=== PATIENT | male | born 1945 | race Caucasian/White ===

== ENCOUNTER → 2017-09-07 | Outpatient (CLI) | payer MEDICARE ==
--- NOTE | 2017-09-07 22:59 | MR ---
EXAMINATION TYPE: MR knee LT wo con DATE OF EXAM: 09/07/2017 COMPARISON: NONE HISTORY: Left Knee pain and Swelling with Limited ROM X2 Months, Slipped and Twisted injury. TECHNIQUE: Multiplanar, multisequence images of the knee is performed without IV contrast. FINDINGS: MEDIAL MENISCUS: There is triangular-shaped density anterior horn of medial meniscus does not extend to articular surface. There is oblique signal posterior horn medial meniscus extends to inferior justin cular surface centrally. LATERAL MENISCUS: Anterior and posterior horns are intact without tear. CRUCIATE LIGAMENTS: The anterior and posterior cruciate ligaments are intact and unremarkable. COLLATERAL LIGAMENTS: The medial collateral ligament and lateral collateral ligament complex are inta ct. Mild to moderate fluid signal surrounds the medial collateral ligament. EXTENSOR MECHANISM: Visualized quadriceps and patellar tendons are intact. EFFUSION: There is small to moderate sized suprapatellar joint effusion. POPLITEAL CYST: No popliteal/velazquez cyst. TRICOMPARTMENT SPACES: There is fairly moderate to borderline advanced tricompartment joint space los s and spurring. CARTILAGE: There is full thickness chondromalacia patella with marked cartilaginous loss and posterio r patellar pole particularly lateral aspect. Some lateral tilting of patella is present. Cartilaginou s loss medial tibial femoral compartment is seen. BONE MARROW SIGNAL: Some scattered subchondral cystic change in the proximal tibia is seen. No suspic ious edema is noted. OTHER: No additional significant abnormality is appreciated. IMPRESSION: 1. Full-thickness tear posterior horn medial meniscus. 2. Intrasubstance tear anterior horn of medial meniscus. 3. Mild MCL sprain injury. 4. Background moderate to borderline advanced tricompartment degenerative changes most prominent medi al tibiofemoral and patellofemoral compartments. Full-thickness chondromalacia patella is noted. 5. Small to borderline moderate sized suprapatellar joint effusion.
== END | disposition home or self-care (01) ==
LOC: RADMRIMAIN 20:11
PROVIDERS: ATTEND Family Medicine
DX: S83.242A Other tear of medial meniscus, current injury, left knee, initial encounter (principal); S83.412A Sprain of medial collateral ligament of left knee, initial encounter; M22.42 Chondromalacia patellae, left knee; M25.462 Effusion, left knee; M76.52 Patellar tendinitis, left knee

== ENCOUNTER → 2018-11-07 | Outpatient (CLI) | payer MEDICARE | LOC: LABWHC1 15:40 | PROVIDERS: ATTEND Psychiatry & Neurology Neurology | DX: G40.209 Localization-related (focal) (partial) symptomatic epilepsy and epileptic syndromes with complex partial seizures, not intractable, without status epilepticus (principal) | CPT/HCPCS: 36415; 80164 ==

== ENCOUNTER → 2023-02-21 | Outpatient (CLI) | payer MEDICARE ==
[2023-02-22 02:35] LABS: Valproic Acid (Depakene) 38.6 UG/ML (50.0-100.0)
== END | disposition home or self-care (01) ==
LOC: LABWHC1 15:09
PROVIDERS: ATTEND Psychiatry & Neurology Neurology
DX: G40.209 Localization-related (focal) (partial) symptomatic epilepsy and epileptic syndromes with complex partial seizures, not intractable, without status epilepticus (principal); G62.9 Polyneuropathy, unspecified; Z79.899 Other long term (current) drug therapy
CPT/HCPCS: 36415; 80164; 82306

== ENCOUNTER 2023-09-27 22:10 | Inpatient (IN) | payer MEDICARE ==
--- NOTE | 2023-09-27 22:36 | ED ---
Weakness HPI - General Chief complaint: Weakness Stated complaint: Weakness Time Seen by Provider: 09/27/23 22:11 Source: patient, EMS Mode of arrival: EMS Limitations: physical limitation - History of Present Illness Initial comments: This patient is 77-year-old man brought by ambulance to have evaluation for generalized weakness. It was reported that the patient had attempted to get up to use the bathroom and slumped to the ground. Patient had reportedly been lying on the ground and number of hours with family attempting to get in to get up and was not able to support himself. They finally called EMS and he is brought to have evaluation. The patient states that he is not having focal weakness. He is denying pain. He states that he just cannot support himself. he denies symptoms of infection. Review of systems, the patient states he has been having lost urinary continence. MD Complaint: generalized weakness Onset/Timin -: days(s) Location: generalized Severity scale (1-10): 0 Consistency: constant Improves with: none Worsens with: none Associated Symptoms: other (Loss of continence) - Related Data Home Medications Medication Instructions Recorded Confirmed Amitriptyline HCl [Elavil] 75 mg PO HS 09/28/23 09/28/23 Baclofen [Lioresal] 10 mg PO HS 09/28/23 09/28/23 Divalproex Sodium [Depakote] 1,000 mg PO HS 09/28/23 09/28/23 Ergocalciferol [Vitamin D2 (1250 1,250 mcg PO Q14D 09/28/23 09/28/23 Mcg = 10495 Iu)] Levothyroxine Sodium [Synthroid] 100 mcg PO DAILY 09/28/23 09/28/23 Metoprolol Tartrate [Lopressor] 50 mg PO HS 09/28/23 09/28/23 Metoprolol Tartrate [Lopressor] 100 mg PO DAILY 09/28/23 09/28/23 Multivitamins, Thera [Multivitamin 1 tab PO DAILY 09/28/23 09/28/23 (formulary)] Omeprazole 20 mg PO DAILY 09/28/23 09/28/23 amLODIPine [Norvasc] 10 mg PO DAILY 09/28/23 09/28/23 Allergies Allergy/AdvReac Type Severity Reaction Status Date / Time Penicillins AdvReac Rash/Hives Verified 09/28/23 06:59 Review of Systems ROS Statement: Those systems with pertinent positive or pertinent negative responses have been documented in the HPI. ROS Other: All systems not noted in ROS Statement are negative. Constitutional: Reports: weakness. Denies: fever, chills Eyes: Denies: vision change ENT: Denies: throat pain, congestion Respiratory: Denies: cough, dyspnea Cardiovascular: Denies: chest pain, palpitations, orthopnea, edema, syncope Gastrointestinal: Denies: abdominal pain, vomiting, diarrhea, melena, hematochezia Genitourinary: Reports: other (Some continence). Denies: dysuria, frequency, hematuria Musculoskeletal: Reports: arthralgia (Knee pains, bilateral, chronic). Denies: back pain Skin: Denies: rash Neurological: Denies: headache, weakness, numbness Hematological/Lymphatic: Denies: easy bleeding Past Medical History Past Medical History: Hypertension, Seizure Disorder, Thyroid Disorder History of Any Multi-Drug Resistant Organisms: None Reported Past Surgical History: Hernia Repair Past Psychological History: No Psychological Hx Reported Smoking Status: Former smoker Past Alcohol Use History: None Reported Past Drug Use History: None Reported General Exam Limitations: physical limitation General appearance: alert, in no apparent distress Head exam: Present: atraumatic, normocephalic Eye exam: Present: normal appearance. Absent: scleral icterus, conjunctival injection ENT exam: Present: mucous membranes dry Neck exam: Present: normal inspection, full ROM. Absent: meningismus Respiratory exam: Present: normal lung sounds bilaterally. Absent: respiratory distress, wheezes, rales, rhonchi, stridor, accessory muscle use Cardiovascular Exam: Present: regular rate, normal rhythm, normal heart sounds. Absent: systolic murmur, diastolic murmur, rubs, gallop GI/Abdominal exam: Present: soft, distended. Absent: tenderness, guarding, rebound, rigid, mass Extremities exam: Present: normal inspection, normal capillary refill. Absent: pedal edema, calf tenderness Back exam: Present: normal inspection. Absent: CVA tenderness (R), CVA tenderness (L) Neurological exam: Present: alert, CN II-XII intact. Absent: motor sensory deficit Skin exam: Present: warm, dry, intact, normal color. Absent: rash Course Vital Signs 09/27/23 09/27/23 09/27/23 22:12 22:19 23:00 Temperature 97.6 F Pulse Rate 76 75 Pulse Rate [ Accounting Policy Consultant ] Respiratory 22 29 H Rate Blood Pressure 116/50 116/50 116/50 Blood Pressure [Right Arm] O2 Sat by Pulse 93 L 93 L Oximetry 09/27/23 09/28/23 09/28/23 23:12 00:00 01:00 Temperature Pulse Rate 67 59 L 58 L Pulse Rate [ Accounting Policy Consultant ] Respiratory 22 26 H 25 H Rate Blood Pressure 113/72 102/83 115/52 Blood Pressure [Right Arm] O2 Sat by Pulse 93 L 93 L Oximetry 09/28/23 09/28/23 09/28/23 01:09 02:00 03:00 Temperature Pulse Rate 57 L 58 L 58 L Pulse Rate [ Accounting Policy Consultant ] Respiratory 20 18 22 Rate Blood Pressure 111/85 106/62 120/83 Blood Pressure [Right Arm] O2 Sat by Pulse 94 L 93 L 94 L Oximetry 09/28/23 09/28/23 09/28/23 04:00 05:00 06:00 Temperature Pulse Rate 57 L 56 L 60 Pulse Rate [ Accounting Policy Consultant ] Respiratory 23 22 20 Rate Blood Pressure 118/74 106/64 124/60 Blood Pressure [Right Arm] O2 Sat by Pulse 94 L 96 96 Oximetry 09/28/23 09/28/23 09/28/23 07:33 08:30 09:00 Temperature Pulse Rate 58 L 62 63 Pulse Rate [ Accounting Policy Consultant ] Respiratory 18 18 20 Rate Blood Pressure 134/72 122/82 145/88 Blood Pressure [Right Arm] O2 Sat by Pulse 94 L 95 98 Oximetry 09/28/23 09/28/23 09/28/23 10:00 11:00 12:00 Temperature Pulse Rate 65 67 75 Pulse Rate [ Accounting Policy Consultant ] Respiratory 17 16 18 Rate Blood Pressure 124/62 141/86 139/94 Blood Pressure [Right Arm] O2 Sat by Pulse 98 95 94 L Oximetry 09/28/23 09/28/23 09/28/23 14:00 15:00 16:00 Temperature 98.6 F Pulse Rate 76 80 80 Pulse Rate [ Accounting Policy Consultant ] Respiratory 16 18 18 Rate Blood Pressure 120/99 122/86 128/86 Blood Pressure [Right Arm] O2 Sat by Pulse 95 95 95 Oximetry 09/28/23 09/28/23 09/28/23 17:00 18:00 20:00 Temperature 98.9 F Pulse Rate 81 90 88 Pulse Rate [ Accounting Policy Consultant ] Respiratory 18 16 20 Rate Blood Pressure 122/98 141/81 128/84 Blood Pressure [Right Arm] O2 Sat by Pulse 95 95 94 L Oximetry 09/29/23 09/29/23 09/29/23 02:36 04:00 07:56 Temperature 98.9 F 97.4 F L Pulse Rate Pulse Rate [ 112 H 100 109 H Accounting Policy Consultant ] Respiratory 22 22 17 Rate Blood Pressure Blood Pressure 143/74 126/89 134/80 [Right Arm] O2 Sat by Pulse 97 94 L 95 Oximetry 09/29/23 09/29/23 09/29/23 11:31 14:38 14:40 Temperature 98.4 F Pulse Rate Pulse Rate [ 105 H Accounting Policy Consultant ] Respiratory 16 17 17 Rate Blood Pressure Blood Pressure 148/70 [Right Arm] O2 Sat by Pulse 95 89 L 92 L Oximetry 09/29/23 09/29/23 15:25 20:00 Temperature 97.8 F 98.1 F Pulse Rate Pulse Rate [ 100 113 H Accounting Policy Consultant ] Respiratory 18 20 Rate Blood Pressure Blood Pressure 152/77 142/79 [Right Arm] O2 Sat by Pulse 93 L 93 L Oximetry EKG Findings - EKG Comments: EKG Findings:: Possible old inferior infarct. - EKG Results: EKG: interpreted by [facility]A, sinus rhythm (Rate 75 bpm), normal axis, normal ST/T Medical Decision Making - Medical Decision Making Patient had CT of the brain that I interpreted as negative for acute bony injury or intracranial hemorrhage. The patient had chest x-ray that interpreted as negative for acute infiltrate, pneumothorax, congestive heart failure Patient is 77-year-old man brought to have evaluation of generalized weakness. On the exam the patient does appear moderately dehydrated. The workup does reveal hyponatremia. Patient's not able to give urine specimen therefore catheter placed and he does have large volume urine in the bladder, consistent with urinary retention. Rosales catheter will be placed to assess urine output Was pt. sent in by a medical professional or institution ([facility], JUN[employer]YWRITER, urgent care, hospital, or [facility]...) When possible be specific @ -[No] Did you speak to anyone other than the patient for history (EMS, parent, family, police, friend...)? What history was obtained from this source @ -[EMS Did you review nursing and triage notes (agree or disagree)? Why? @ -[I reviewed and agree with nursing and triage notes] Were old charts reviewed (outside hosp., previous admission, EMS record, old EKG, old radiological studies, urgent care reports/EKG's, [facility] records)? Report findings @ -[No old charts were reviewed] Differential Diagnosis (chest pain, altered mental status, abdominal pain women, abdominal pain men, vaginal bleeding, weakness, fever, dyspnea, syncope, headache, dizziness, GI bleed, back pain, seizure, CVA, palpatations, mental health, musculoskeletal)? @ -[Differential Weakness: Hypoglycemia, shock, sepsis, hyponatremia, anemia, infection, [place], ETOH, adverse medicine reaction, overdose, stroke, this is not meant to be an all-inclusive list. EKG interpreted by me (3pts min.). @ -[I interpreted as above] X-rays interpreted by me (1pt min.). @ -[I interpreted as above CT interpreted by me (1pt min.). @ -[I interpreted as above U/S interpreted by me (1pt. min.). @ -[None done] What testing was considered but not performed or refused? (CT, X-rays, U/S, labs)? Why? @ -[None] What meds were considered but not given or refused? Why? @ -[None] Did you discuss the management of the patient with other professionals (professionals i.e. , PA, JUNIOR COPYWRITER, lab, RT, psych nurse, clinical social work aide, data abstractor, teacher, financial officer, case therapist)? Give summary @ -[Case discussed with admitting physician Was smoking cessation discussed for >3mins.? @ -[No] Was critical care preformed (if so, how long)? @ -[No] Were there social determinants of health that impacted care today? How? (Homelessness, low income, unemployed, alcoholism, drug addiction, transportation, low edu. Level, literacy, decrease access to med. care, correction, rehab)? @ -[No] Was there de-escalation of care discussed even if they declined (Discuss DNR or withdrawal of care, Hospice)? DNR status @ -[No] What co-morbidities impacted this encounter? (DM, HTN, Smoking, COPD, CAD, Cancer, CVA, ARF, Chemo, Hep., AIDS, mental health diagnosis, sleep apnea, morbid obesity)? @ -[None] Was patient admitted / discharged? Hospital course, mention meds given and route, prescriptions, significant lab abnormalities, going to OR and other pertinent info. @ -[Patient be admitted for hydration as well as nephrology consultation Undiagnosed new problem with uncertain prognosis? @ -[No] Drug Therapy requiring intensive monitoring for toxicity (Heparin, Nitro, Insulin, Cardizem)? @ -[No] Were any procedures done? @ -[No] Diagnosis/symptom? @ -[Acute hyponatremia Acute urinary retention Ground-level fall Acute rhabdomyolysis Acute lactic acidosis Acute, or Chronic, or Acute on Chronic? @ -[Acute Uncomplicated (without systemic symptoms) or Complicated (systemic symptoms)? @ -[Uncomplicated Side effects of treatment? @ -[No] Exacerbation, Progression, or Severe Exacerbation? @ -[No] Poses a threat to life or bodily function? How? (Chest pain, [place], [place], pneumonia, PE, COPD, DKA, ARF, appy, cholecystitis, CVA, Diverticulitis, Homicidal, Suicidal, threat to staff... and all critical care pts) @ -[Yes - Lab Data Result diagrams: 10/12/23 07:43 10/13/23 06:22 Lab Results 09/27/23 09/27/23 09/27/23 Range/Units 22:53 22:53 22:53 WBC 10.5 (3.8-10.6) k/uL RBC 5.00 (4.30-5.90) m/uL Hgb 15.2 (13.0-17.5) gm/dL Hct 42.9 (39.0-53.0) % MCV 85.7 (80.0-100.0) fL MCH 30.5 (25.0-35.0) pg MCHC 35.6 (31.0-37.0) g/dL RDW 13.6 (11.5-15.5) % Plt Count 165 (150-450) k/uL MPV 12.8 Neutrophils % 77 % Lymphocytes % 12 % Monocytes % 9 % Eosinophils % 0 % Basophils % 1 % Neutrophils # 8.0 H (1.3-7.7) k/uL Lymphocytes # 1.2 (1.0-4.8) k/uL Monocytes # 1.0 (0-1.0) k/uL Eosinophils # 0.0 (0-0.7) k/uL Basophils # 0.1 (0-0.2) k/uL Manual Slide Review Performed Large Platelets Present PT 11.0 (10.0-12.5) sec INR 1.0 (<1.2) APTT 26.7 (22.0-30.0) sec Sodium 118 L* (137-145) mmol/L Potassium 4.1 (3.5-5.1) mmol/L Chloride 83 L (98-107) mmol/L Carbon Dioxide 22 (22-30) mmol/L Anion Gap 13 mmol/L BUN 24 H (9-20) mg/dL Creatinine 1.26 H (0.66-1.25) mg/dL Est GFR (CKD-EPI)AfAm 64 (>60 ml/min/1.73 sqM) Est GFR (CKD-EPI)NonAf 55 (>60 ml/min/1.73 sqM) Glucose 189 H (74-99) mg/dL Lactic Ac Sepsis Rflx Plasma Lactic Acid Guillaume (0.7-2.0) mmol/L Calcium 8.2 L (8.4-10.2) mg/dL Magnesium 1.7 (1.6-2.3) mg/dL Total Bilirubin 1.1 (0.2-1.3) mg/dL AST 95 H (17-59) U/L ALT 44 (4-49) U/L Alkaline Phosphatase 65 (38-126) U/L Troponin I (0.000-0.034) ng/mL Total Protein 7.4 (6.3-8.2) g/dL Albumin 4.0 (3.5-5.0) g/dL Urine Color Urine Appearance (Clear) Urine pH (5.0-8.0) Ur Specific [place] (1.001-1.035) Urine Protein (Negative) Urine Glucose (UA) (Negative) Urine Ketones (Negative) Urine Blood (Negative) Urine Nitrite (Negative) Urine Bilirubin (Negative) Urine Urobilinogen (<2.0) mg/dL Ur Leukocyte Esterase (Negative) Urine RBC (0-5) /hpf Urine WBC (0-5) /hpf Urine Mucus (None) /hpf 09/27/23 09/27/23 09/27/23 Range/Units 22:53 22:53 23:22 WBC (3.8-10.6) k/uL RBC (4.30-5.90) m/uL Hgb (13.0-17.5) gm/dL Hct (39.0-53.0) % MCV (80.0-100.0) fL MCH (25.0-35.0) pg MCHC (31.0-37.0) g/dL RDW (11.5-15.5) % Plt Count (150-450) k/uL MPV Neutrophils % % Lymphocytes % % Monocytes % % Eosinophils % % Basophils % % Neutrophils # (1.3-7.7) k/uL Lymphocytes # (1.0-4.8) k/uL Monocytes # (0-1.0) k/uL Eosinophils # (0-0.7) k/uL Basophils # (0-0.2) k/uL Manual Slide Review Large Platelets PT (10.0-12.5) sec INR (<1.2) APTT (22.0-30.0) sec Sodium (137-145) mmol/L Potassium (3.5-5.1) mmol/L Chloride (98-107) mmol/L Carbon Dioxide (22-30) mmol/L Anion Gap mmol/L BUN (9-20) mg/dL Creatinine (0.66-1.25) mg/dL Est GFR (CKD-EPI)AfAm (>60 ml/min/1.73 sqM) Est GFR (CKD-EPI)NonAf (>60 ml/min/1.73 sqM) Glucose (74-99) mg/dL Lactic Ac Sepsis Rflx Y Plasma Lactic Acid Guillaume 4.1 H* (0.7-2.0) mmol/L Calcium (8.4-10.2) mg/dL Magnesium (1.6-2.3) mg/dL Total Bilirubin (0.2-1.3) mg/dL AST (17-59) U/L ALT (4-49) U/L Alkaline Phosphatase (38-126) U/L Troponin I <0.012 (0.000-0.034) ng/mL Total Protein (6.3-8.2) g/dL Albumin (3.5-5.0) g/dL Urine Color Urine Appearance (Clear) Urine pH (5.0-8.0) Ur Specific [place] (1.001-1.035) Urine Protein (Negative) Urine Glucose (UA) (Negative) Urine Ketones (Negative) Urine Blood (Negative) Urine Nitrite (Negative) Urine Bilirubin (Negative) Urine Urobilinogen (<2.0) mg/dL Ur Leukocyte Esterase (Negative) Urine RBC (0-5) /hpf Urine WBC (0-5) /hpf Urine Mucus (None) /hpf 09/28/23 Range/Units 01:06 WBC (3.8-10.6) k/uL RBC (4.30-5.90) m/uL Hgb (13.0-17.5) gm/dL Hct (39.0-53.0) % MCV (80.0-100.0) fL MCH (25.0-35.0) pg MCHC (31.0-37.0) g/dL RDW (11.5-15.5) % Plt Count (150-450) k/uL MPV Neutrophils % % Lymphocytes % % Monocytes % % Eosinophils % % Basophils % % Neutrophils # (1.3-7.7) k/uL Lymphocytes # (1.0-4.8) k/uL Monocytes # (0-1.0) k/uL Eosinophils # (0-0.7) k/uL Basophils # (0-0.2) k/uL Manual Slide Review Large Platelets PT (10.0-12.5) sec INR (<1.2) APTT (22.0-30.0) sec Sodium (137-145) mmol/L Potassium (3.5-5.1) mmol/L Chloride (98-107) mmol/L Carbon Dioxide (22-30) mmol/L Anion Gap mmol/L BUN (9-20) mg/dL Creatinine (0.66-1.25) mg/dL Est GFR (CKD-EPI)AfAm (>60 ml/min/1.73 sqM) Est GFR (CKD-EPI)NonAf (>60 ml/min/1.73 sqM) Glucose (74-99) mg/dL Lactic Ac Sepsis Rflx Plasma Lactic Acid Guillaume (0.7-2.0) mmol/L Calcium (8.4-10.2) mg/dL Magnesium (1.6-2.3) mg/dL Total Bilirubin (0.2-1.3) mg/dL AST (17-59) U/L ALT (4-49) U/L Alkaline Phosphatase (38-126) U/L Troponin I (0.000-0.034) ng/mL Total Protein (6.3-8.2) g/dL Albumin (3.5-5.0) g/dL Urine Color Yellow Urine Appearance Clear (Clear) Urine pH 6.0 (5.0-8.0) Ur Specific [place] 1.014 (1.001-1.035) Urine Protein Negative (Negative) Urine Glucose (UA) Negative (Negative) Urine Ketones Negative (Negative) Urine Blood Trace H (Negative) Urine Nitrite Negative (Negative) Urine Bilirubin Negative (Negative) Urine Urobilinogen 3.0 (<2.0) mg/dL Ur Leukocyte Esterase Negative (Negative) Urine RBC 17 H (0-5) /hpf Urine WBC 1 (0-5) /hpf Urine Mucus Rare H (None) /hpf Critical Care Time Critical Care Time: Yes (30 minutes) Disposition Clinical Impression: Weakness, Hyponatremia, Urinary retention, Dehydration, Lactic acidosis, Rhabdomyolysis Disposition: ADMITTED IP TO THIS [facility] Condition: Poor Is patient prescribed a controlled substance at d/c from ED?: No
--- NOTE | 2023-09-27 22:57 | CT ---
EXAM: CT Head Without Intravenous Contrast CLINICAL HISTORY: ITS.REASON CT Reason: weakness TECHNIQUE: Axial computed tomography images of the head/brain without intravenous contrast. CTDI is 49.1 mGy and DLP is 1314.4 mGy-cm. This CT exam was performed using one or more of the following dose reduction techniques: automated exposure control, adjustment of the mA and/or kV according to patient size, and/or use of iterative reconstruction technique. COMPARISON: No relevant prior studies available. FINDINGS: No acute intracranial hemorrhage. No midline shift or mass effect. The [place]-white matter differentiation is maintained throughout. Age-related cerebral volume loss. Periventricular and subcortical white matter hypoattenuation, consistent with chronic microangiopathy. The visualized orbits appear grossly unremarkable. The calvarium is intact. The visualized paranasal sinuses and mastoid air cells are grossly clear. IMPRESSION: No acute intracranial hemorrhage, midline shift, or mass effect.
--- NOTE | 2023-09-27 23:10 | XR ---
EXAM: XR Chest, 1 View CLINICAL HISTORY: ITS.REASON XR Reason: weakness TECHNIQUE: Frontal view of the chest. COMPARISON: No relevant prior studies available. FINDINGS: Lungs: Unremarkable. No consolidation. Pleural space: Unremarkable. No pneumothorax. Heart: Cardiomegaly. Mediastinum: Unremarkable. Normal mediastinal contour. Bones/joints: Unremarkable. No acute fracture. Upper abdomen: Elevated RIGHT hemidiaphragm. IMPRESSION: No acute findings in the chest.
[2023-09-27 23:14] LABS: ALT 44 U/L (4-49); AST 95 U/L (17-59); African American GFR (CKD) 64 (>60 ml/min/1.73 sqM); Alkaline Phosphatase 65 U/L (38-126); Anion Gap 13 mmol/L; Blood Urea Nitrogen 24 mg/dL (9-20); Calcium 8.2 mg/dL (8.4-10.2); Carbon Dioxide 22 mmol/L (22-30); Chloride 83 mmol/L (98-107); Glucose 189 mg/dL (74-99); Magnesium 1.7 mg/dL (1.6-2.3); Non-African American GFR(CKD) 55 (>60 ml/min/1.73 sqM); Potassium 4.1 mmol/L (3.5-5.1); Total Bilirubin 1.1 mg/dL (0.2-1.3); Total Protein 7.4 g/dL (6.3-8.2)
[2023-09-27 23:22] LABS: Sodium 118 mmol/L (137-145)
[2023-09-27 23:33] LABS: Partial Thromboplastin Time 26.7 sec (22.0-30.0)
[2023-09-27] MEDS: SODIUM CHLORIDE 0.9% 1,000 ML IV ONE (23:33)
[2023-09-28 00:40] LABS: Basophils # (A) 0.1 k/uL (0-0.2); Basophils % (A) 1 %; Eosinophils % (A) 0 %; HCT 42.9 % (39.0-53.0); HGB 15.2 gm/dL (13.0-17.5); Lymphocytes # (A) 1.2 k/uL (1.0-4.8); Lymphocytes % (A) 12 %; MCH 30.5 pg (25.0-35.0); MCHC 35.6 g/dL (31.0-37.0); MCV 85.7 fL (80.0-100.0); Mean Platelet Volume 12.8; Monocytes % (A) 9 %; Neutrophils % (A) 77 %; Platelet Count 165 k/uL (150-450); RDW 13.6 % (11.5-15.5); WBC 10.5 k/uL (3.8-10.6)
[2023-09-28] MEDS: SODIUM CHLORIDE 0.9% 1,000 ML IV STA (01:05)
[2023-09-28] MEDS ORDERED: NALOXONE 0.4 MG/ML 1 ML VIAL IV PRN (01:38)
[2023-09-28 02:12] LABS: Appearance,Urine Clear (Clear); Bilirubin,Urine Negative (Negative); Blood,Urine Trace (Negative); Color,Urine Yellow; Glucose,Urine (UA) Negative (Negative); Ketones,Urine Negative (Negative); Leukocyte Esterase,Urine Negative (Negative); Mucus,Urine Rare /hpf; Nitrite,Urine Negative (Negative); Protein,Urine Negative (Negative); RBC,Urine 17 /hpf (0-5); Specific Gravity,Urine 1.014 (1.001-1.035); WBC,Urine 1 /hpf (0-5)
[2023-09-28 02:43] LABS: Large Platelets Present
[2023-09-28 07:38] LABS: African American GFR (CKD) 74 (>60 ml/min/1.73 sqM); Anion Gap 13 mmol/L; Blood Urea Nitrogen 27 mg/dL (9-20); Calcium 8.1 mg/dL (8.4-10.2); Carbon Dioxide 24 mmol/L (22-30); Chloride 85 mmol/L (98-107); Glucose 116 mg/dL (74-99); Magnesium 1.8 mg/dL (1.6-2.3); Non-African American GFR(CKD) 64 (>60 ml/min/1.73 sqM); Potassium 3.6 mmol/L (3.5-5.1); Sodium 122 mmol/L (137-145)
[2023-09-28] MEDS: FAMOTIDINE 20 MG/2 ML VIAL IV SCH (08:26)
[2023-09-28] MEDS: LEVOTHYROXINE 100 MCG TAB PO SCH (10:12)
[2023-09-28] MEDS: SODIUM CHLORIDE 0.9% 1,000 ML IV SCH (11:04)
[2023-09-28] MEDS: POTASSIUM BICARBONATE/CIT AC 20 MEQ TABLET.EFF PO ONE (12:02)
--- NOTE | 2023-09-28 12:11 | P.NPCON ---
History of Present Illness - Reason for Consult acute renal failure, hyponatremia - History of Present Illness Reason for consultation: Hyponatremia and acute kidney injury History of present illness: Patient is a 77-year-old male seen in renal consultation for hyponatremia and acute kidney injury. Patient was seen and examined in the emergency room. Patient sodium on admission was 118 on September 27, 2023 at 10:53 PM. This morning it was up to 122. Creatinine was 1.26 on admission and was 1.11 this morning. Patient came to the hospital due to generalized weakness. He was also complaining of diarrhea going on for the last 3 days along with poor oral intake. Patient states he fell prior to admission. Patient states he was falling multiple times. He did receive a liter of normal saline and received 0.9 at 200 cc an hour overnight. Patient CK level on admission was 1241 and 2669 this morning. Patient is not a very reliable historian. I do not see any thiazide diuretics or nonsteroidals on his home medication list. He denies history of malignancy. Denies prior history of kidney disease. Patient was noted to have urinary retention and required straight catheterizations. Subseq uently Rosales catheter was placed. He is nonoliguric. Vital signs are stable. General: No acute distress. HEENT: Head exam is unremarkable. On nasal cannula. LUNGS: No audible rhonchi or wheezes. HEART: Rate and Rhythm are regular. ABDOMEN: Nontender. EXTREMITITES: No edema. Past Medical History Past Medical History: Hypertension, Seizure Disorder, Thyroid Disorder History of Any Multi-Drug Resistant Organisms: None Reported Past Surgical History: Hernia Repair Past Psychological History: No Psychological Hx Reported Smoking Status: Former smoker Past Alcohol Use History: None Reported Past Drug Use History: None Reported Medications and Allergies Home Medications Medication Instructions Recorded Confirmed Type Amitriptyline HCl [Elavil] 75 mg PO HS 09/28/23 09/28/23 History Baclofen [Lioresal] 10 mg PO HS 09/28/23 09/28/23 History Divalproex Sodium [Depakote] 1,000 mg PO HS 09/28/23 09/28/23 History Ergocalciferol [Vitamin D2 (1250 1,250 mcg PO Q14D 09/28/23 09/28/23 History Mcg = 09461 Iu)] Levothyroxine Sodium [Synthroid] 100 mcg PO DAILY 09/28/23 09/28/23 History Metoprolol Tartrate [Lopressor] 50 mg PO HS 09/28/23 09/28/23 History Metoprolol Tartrate [Lopressor] 100 mg PO DAILY 09/28/23 09/28/23 History Multivitamins, Thera [Multivitamin 1 tab PO DAILY 09/28/23 09/28/23 History (formulary)] Omeprazole 20 mg PO DAILY 09/28/23 09/28/23 History amLODIPine [Norvasc] 10 mg PO DAILY 09/28/23 09/28/23 History Allergies Allergy/AdvReac Type Severity Reaction Status Date / Time Penicillins AdvReac Rash/Hives Verified 09/28/23 06:59 Physical Exam Vitals: Vital Signs Temp Pulse Resp BP Pulse Ox 09/28/23 11:00 67 16 141/86 95 09/28/23 10:00 65 17 124/62 98 09/28/23 09:00 63 20 145/88 98 09/28/23 08:30 62 18 122/82 95 09/28/23 07:33 58 L 18 134/72 94 L 09/28/23 06:00 60 20 124/60 96 09/28/23 05:00 56 L 22 106/64 96 09/28/23 04:00 57 L 23 118/74 94 L 09/28/23 03:00 58 L 22 120/83 94 L 09/28/23 02:00 58 L 18 106/62 93 L 09/28/23 01:09 57 L 20 111/85 94 L 09/28/23 01:00 58 L 25 H 115/52 93 L 09/28/23 00:00 59 L 26 H 102/83 09/27/23 23:12 67 22 113/72 93 L 09/27/23 23:00 116/50 09/27/23 22:19 75 29 H 116/50 93 L 09/27/23 22:12 97.6 F 76 22 116/50 93 L Intake and Output 09/27/23 09/28/23 09/28/23 22:59 06:59 14:59 Output Total 1100 150 Balance -1100 -150 Output: Urine 1100 150 Uretheral (Rosales) 1100 150 Other: Weight 113.852 kg Results - Lab Results Most recent lab results Calcium 8.1 mg/dL (8.4-10.2) L 09/28/23 06:32 Magnesium 1.8 mg/dL (1.6-2.3) 09/28/23 06:32 09/27/23 22:53 09/28/23 06:32 Assessment and Plan Plan: Assessment: 1. Hyponatremia. Component of hypovolemia as well as urinary retention. Sodium level 118 on admission and up to 122 this morning. TSH normal. Urine osmolality 543. 2. Acute kidney injury secondary to urinary retention. Creatinine 1.26 on admission and is 1.11 today. No proteinuria on UA. 3. Urinary retention status post Rosales catheter placement. 4. Benign hypertension. Controlled. 5. Hypokalemia from poor intake and postobstructive diuresis. Magnesium normal. 6. Rhabdomyolysis secondary to fall. Plan: Maintain IV fluids with normal saline at 100 cc an hour. Replace potassium. Check renal ultrasound. Add Flomax. Avoid nephrotoxins. Continue to monitor renal function and urine output. Repeat BMP this evening. Thank you for the consultation. I will continue to follow the patient with you during his hospital stay.
--- NOTE | 2023-09-28 12:22 | P.HPIM ---
History of Present Illness H&P Date: 09/28/23 History of present illness; patient is a 77-year-old gentleman past medical history significant for hypothyroidism, hypertension who presented to the ER for generalized weakness and fall. Patient was brought in by family members, apparently patient was trying to use the restroom when he lost all his strength and slumped to the ground. There was no complaint of any loss of consciousness. No complaint of weakness of any extremity. Family did not notice any slurred speech or facial droop. There was no complaint of fever or chills. No complaint of nausea, vomiting, abdominal pain. Patient's family tried to help him to get up but they were unable to lift him. They called EMS and they broug ht him to ER. Initial lab work done in the ER showed WBC 10.5, hemoglobin 15.2, platelet count 165, sodium 118, potassium 4.1, BUN 24, creatinine 1.26, plasma lactate 4.1, troponin 0.012 UA negative for any infection EKG done in the ER showed heart rate of 75, no ST segment elevation or depression seen, no T-wave inversions seen. Chest x-ray done in the ER no acute cardiopulmonary process CT head done showed no acute intracranial process Patient admitted to internal medicine service REVIEW OF SYSTEMS: CONSTITUTIONAL: Mentioned above HEENT: No recent visual problems or hearing problems. Denied any sore throat. CARDIOVASCULAR: No chest pain, orthopnea, PND, no palpitations, no syncope. PULMONARY: No shortness of breath, no cough, no hemoptysis. GASTROINTESTINAL: No diarrhea, no nausea, no vomiting, no abdominal pain. NEUROLOGICAL: No headaches, no weakness, no numbness. HEMATOLOGICAL: Denies any bleeding or petechiae. GENITOURINARY: Denies any burning micturition,. Complaining of increased urine incontinence MUSCULOSKELETAL/RHEUMATOLOGICAL: Denies any joint pain, swelling, or any muscle pain. ENDOCRINE: Denies any polyuria or polydipsia. The rest of the 14-point review of systems is negative. PHYSICAL EXAMINATION: GENERAL: The patient is alert and oriented x3, not in any acute distress. Chronically ill looking HEENT: Pupils are round and equally reacting to light. EOMI. No scleral icterus. No conjunctival pallor. Normocephalic, atraumatic. No pharyngeal erythema. No thyromegaly. CARDIOVASCULAR: S1 and S2 present. No murmurs, rubs, or gallops. PULMONARY: Chest is clear to auscultation, no wheezing or crackles. ABDOMEN: Soft, nontender, nondistended, normoactive bowel sounds. No palpable organomegaly. MUSCULOSKELETAL: No joint swelling or deformity. EXTREMITIES: No cyanosis, clubbing, or pedal edema. NEUROLOGICAL: Gross neurological examination did not reveal any focal deficits. SKIN: No rashes. Assessment and plan Hyponatremia Generalized weakness Rhabdomyolysis Fall Urinary retention Hypothyroidism Hypertension Monitor vital signs Monitor CBC Continue telemetry monitoring Strict I's and O's Daily weights Monitor BMP Check influenza A, influenza B, RSV and COVID-19 PCR Continue IV fluids Check renal ultrasound. Add Flomax. Avoid nephrotoxins. Check TSH, vitamin B12 and folate levels Continue IV fluids Resume home meds Consult nephrology for hyponatremia Urology consulted for urinary retention PT and OT consulted Labs and medication were reviewed.. Continue same treatment. Continue with symptomatic treatment. Resume home medication. Monitor labs and vitals. DVT and GI prophylaxis. Further recommendations as per clinical course of the patient Dictation was produced using GoPro dictation software. please excuse any gram matical, word or spelling errors. Past Medical History Past Medical History: Hypertension, Seizure Disorder, Thyroid Disorder History of Any Multi-Drug Resistant Organisms: None Reported Past Surgical History: Hernia Repair Past Psychological History: No Psychological Hx Reported Smoking Status: Former smoker Past Alcohol Use History: None Reported Past Drug Use History: None Reported Medications and Allergies Home Medications Medication Instructions Recorded Confirmed Type Amitriptyline HCl [Elavil] 75 mg PO HS 09/28/23 09/28/23 History Baclofen [Lioresal] 10 mg PO HS 09/28/23 09/28/23 History Divalproex Sodium [Depakote] 1,000 mg PO HS 09/28/23 09/28/23 History Ergocalciferol [Vitamin D2 (1250 1,250 mcg PO Q14D 09/28/23 09/28/23 History Mcg = 52402 Iu)] Levothyroxine Sodium [Synthroid] 100 mcg PO DAILY 09/28/23 09/28/23 History Metoprolol Tartrate [Lopressor] 50 mg PO HS 09/28/23 09/28/23 History Metoprolol Tartrate [Lopressor] 100 mg PO DAILY 09/28/23 09/28/23 History Multivitamins, Thera [Multivitamin 1 tab PO DAILY 09/28/23 09/28/23 History (formulary)] Omeprazole 20 mg PO DAILY 09/28/23 09/28/23 History amLODIPine [Norvasc] 10 mg PO DAILY 09/28/23 09/28/23 History Allergies Allergy/AdvReac Type Severity Reaction Status Date / Time Penicillins AdvReac Rash/Hives Verified 09/28/23 06:59 Physical Exam Vitals: Vital Signs Temp Pulse Resp BP Pulse Ox 09/28/23 08:30 62 18 122/82 95 09/28/23 07:33 58 L 18 134/72 94 L 09/28/23 06:00 60 20 124/60 96 09/28/23 05:00 56 L 22 106/64 96 09/28/23 04:00 57 L 23 123/92 94 L 09/28/23 03:00 58 L 22 118/74 94 L 09/28/23 02:00 59 L 18 120/83 93 L 09/28/23 01:09 57 L 20 111/85 94 L 09/27/23 23:12 67 22 113/72 93 L 09/27/23 22:12 97.6 F 76 22 116/50 93 L Intake and Output 09/27/23 09/28/23 09/28/23 22:59 06:59 14:59 Output Total 1100 150 Balance -1100 -150 Output: Urine 1100 150 Uretheral (Rosales) 1100 150 Other: Weight 113.852 kg Results CBC & Chem 7: 09/27/23 22:53 09/28/23 06:32 Labs: Abnormal Lab Results - Last 24 Hours (Table) 09/27/23 09/27/23 09/27/23 Range/Units 22:53 22:53 22:53 Neutrophils # 8.0 H (1.3-7.7) k/uL Sodium 118 L* (137-145) mmol/L Chloride 83 L (98-107) mmol/L BUN 24 H (9-20) mg/dL Creatinine 1.26 H (0.66-1.25) mg/dL Glucose 189 H (74-99) mg/dL Plasma Lactic Acid Guillaume 4.1 H* (0.7-2.0) mmol/L Calcium 8.2 L (8.4-10.2) mg/dL AST 95 H (17-59) U/L Creatine Kinase (55-170) U/L Urine Blood (Negative) Urine RBC (0-5) /hpf Urine Mucus (None) /hpf 09/28/23 09/28/23 09/28/23 Range/Units 01:06 01:50 01:53 Neutrophils # (1.3-7.7) k/uL Sodium (137-145) mmol/L Chloride (98-107) mmol/L BUN (9-20) mg/dL Creatinine (0.66-1.25) mg/dL Glucose (74-99) mg/dL Plasma Lactic Acid Guillaume 3.1 H* (0.7-2.0) mmol/L Calcium (8.4-10.2) mg/dL AST (17-59) U/L Creatine Kinase 1241 H* (55-170) U/L Urine Blood Trace H (Negative) Urine RBC 17 H (0-5) /hpf Urine Mucus Rare H (None) /hpf 09/28/23 Range/Units 06:32 Neutrophils # (1.3-7.7) k/uL Sodium 122 L (137-145) mmol/L Chloride 85 L (98-107) mmol/L BUN 27 H (9-20) mg/dL Creatinine (0.66-1.25) mg/dL Glucose 116 H (74-99) mg/dL Plasma Lactic Acid Guillaume (0.7-2.0) mmol/L Calcium 8.1 L (8.4-10.2) mg/dL AST (17-59) U/L Creatine Kinase (55-170) U/L Urine Blood (Negative) Urine RBC (0-5) /hpf Urine Mucus (None) /hpf
--- NOTE | 2023-09-28 12:36 | P.GSCN ---
History of Present Illness Consult date: 09/28/23 History of present illness: 77-year-old gentleman in the hospital with weakness. Etiology of his weakness is uncertain. He does have hyponatremia at 122. The patient can give very little history. We were asked to see him for urine retention. By thorough questioning very directed questions I can get very little urinary tract history. There is no evidence of medication for voiding dysfunction prior to coming into the hospital. The nursing staff straight cath him for a liter, and then placed a catheter for approximately another liter according to the nurse caring for him. There is no blood in the urine. Urinalysis shows a small amount of microscopic hematuria probably due to the catheter trauma. Review of Systems ROS unobtainable: due to mental status Past Medical History Past Medical History: Hypertension, Seizure Disorder, Thyroid Disorder History of Any Multi-Drug Resistant Organisms: None Reported Past Surgical History: Hernia Repair Past Psychological History: No Psychological Hx Reported Smoking Status: Former smoker Past Alcohol Use History: None Reported Past Drug Use History: None Reported Medications and Allergies Home Medications Medication Instructions Recorded Confirmed Type Amitriptyline HCl [Elavil] 75 mg PO HS 09/28/23 09/28/23 History Baclofen [Lioresal] 10 mg PO HS 09/28/23 09/28/23 History Divalproex Sodium [Depakote] 1,000 mg PO HS 09/28/23 09/28/23 History Ergocalciferol [Vitamin D2 (1250 1,250 mcg PO Q14D 09/28/23 09/28/23 History Mcg = 76993 Iu)] Levothyroxine Sodium [Synthroid] 100 mcg PO DAILY 09/28/23 09/28/23 History Metoprolol Tartrate [Lopressor] 50 mg PO HS 09/28/23 09/28/23 History Metoprolol Tartrate [Lopressor] 100 mg PO DAILY 09/28/23 09/28/23 History Multivitamins, Thera [Multivitamin 1 tab PO DAILY 09/28/23 09/28/23 History (formulary)] Omeprazole 20 mg PO DAILY 09/28/23 09/28/23 History amLODIPine [Norvasc] 10 mg PO DAILY 09/28/23 09/28/23 History Allergies Allergy/AdvReac Type Severity Reaction Status Date / Time Penicillins AdvReac Rash/Hives Verified 09/28/23 06:59 Surgical - Exam Vital Signs Temp Pulse Resp BP Pulse Ox 97.6 F 76 22 116/50 93 L 09/27/23 22:12 09/27/23 22:12 09/27/23 22:12 09/27/23 22:12 09/27/23 22:12 - General well developed, well nourished, obese - Eyes PERRL - ENT no hearing loss - Neck trachea midline - Respiratory normal respiratory effort - Abdomen Abdomen: soft, distended - Genitourinary Indwelling catheter, normal testicles. The length of the catheter emanating from the urethral meatus is appropriate. Rectal examination is limited due to patient discomfort. - Integumentary no growths - Neurologic disoriented, confused Results - Labs 09/27/23 22:53 09/28/23 06:32 Abnormal Lab Results - Last 24 Hours (Table) 09/27/23 09/27/23 09/27/23 Range/Units 22:53 22:53 22:53 Neutrophils # 8.0 H (1.3-7.7) k/uL Sodium 118 L* (137-145) mmol/L Chloride 83 L (98-107) mmol/L BUN 24 H (9-20) mg/dL Creatinine 1.26 H (0.66-1.25) mg/dL Glucose 189 H (74-99) mg/dL Plasma Lactic Acid Guillaume 4.1 H* (0.7-2.0) mmol/L Calcium 8.2 L (8.4-10.2) mg/dL AST 95 H (17-59) U/L Creatine Kinase (55-170) U/L Urine Blood (Negative) Urine RBC (0-5) /hpf Urine Mucus (None) /hpf 09/28/23 09/28/23 09/28/23 Range/Units 01:06 01:50 01:53 Neutrophils # (1.3-7.7) k/uL Sodium (137-145) mmol/L Chloride (98-107) mmol/L BUN (9-20) mg/dL Creatinine (0.66-1.25) mg/dL Glucose (74-99) mg/dL Plasma Lactic Acid Guillaume 3.1 H* (0.7-2.0) mmol/L Calcium (8.4-10.2) mg/dL AST (17-59) U/L Creatine Kinase 1241 H* (55-170) U/L Urine Blood Trace H (Negative) Urine RBC 17 H (0-5) /hpf Urine Mucus Rare H (None) /hpf 09/28/23 09/28/23 Range/Units 06:32 10:44 Neutrophils # (1.3-7.7) k/uL Sodium 122 L (137-145) mmol/L Chloride 85 L (98-107) mmol/L BUN 27 H (9-20) mg/dL Creatinine (0.66-1.25) mg/dL Glucose 116 H (74-99) mg/dL Plasma Lactic Acid Guillaume (0.7-2.0) mmol/L Calcium 8.1 L (8.4-10.2) mg/dL AST (17-59) U/L Creatine Kinase 2669 H* (55-170) U/L Urine Blood (Negative) Urine RBC (0-5) /hpf Urine Mucus (None) /hpf Diabetes panel 09/27/23 09/28/23 Range/Units 22:53 06:32 Sodium 118 L* 122 L (137-145) mmol/L Potassium 4.1 3.6 (3.5-5.1) mmol/L Chloride 83 L 85 L (98-107) mmol/L Carbon Dioxide 22 24 (22-30) mmol/L BUN 24 H 27 H (9-20) mg/dL Creatinine 1.26 H 1.11 (0.66-1.25) mg/dL Glucose 189 H 116 H (74-99) mg/dL Calcium 8.2 L 8.1 L (8.4-10.2) mg/dL AST 95 H (17-59) U/L ALT 44 (4-49) U/L Alkaline Phosphatase 65 (38-126) U/L Total Protein 7.4 (6.3-8.2) g/dL Albumin 4.0 (3.5-5.0) g/dL Thyroid panel 09/28/23 Range/Units 06:32 TSH 1.610 (0.465-4.680) mIU/L Calcium panel 09/27/23 09/28/23 Range/Units 22:53 06:32 Calcium 8.2 L 8.1 L (8.4-10.2) mg/dL Albumin 4.0 (3.5-5.0) g/dL Pituitary panel 09/27/23 09/28/23 Range/Units 22:53 06:32 Sodium 118 L* 122 L (137-145) mmol/L Potassium 4.1 3.6 (3.5-5.1) mmol/L Chloride 83 L 85 L (98-107) mmol/L Carbon Dioxide 22 24 (22-30) mmol/L BUN 24 H 27 H (9-20) mg/dL Creatinine 1.26 H 1.11 (0.66-1.25) mg/dL Glucose 189 H 116 H (74-99) mg/dL Calcium 8.2 L 8.1 L (8.4-10.2) mg/dL TSH 1.610 (0.465-4.680) mIU/L Adrenal panel 09/27/23 09/28/23 Range/Units 22:53 06:32 Sodium 118 L* 122 L (137-145) mmol/L Potassium 4.1 3.6 (3.5-5.1) mmol/L Chloride 83 L 85 L (98-107) mmol/L Carbon Dioxide 22 24 (22-30) mmol/L BUN 24 H 27 H (9-20) mg/dL Creatinine 1.26 H 1.11 (0.66-1.25) mg/dL Glucose 189 H 116 H (74-99) mg/dL Calcium 8.2 L 8.1 L (8.4-10.2) mg/dL Total Bilirubin 1.1 (0.2-1.3) mg/dL AST 95 H (17-59) U/L ALT 44 (4-49) U/L Alkaline Phosphatase 65 (38-126) U/L Total Protein 7.4 (6.3-8.2) g/dL Albumin 4.0 (3.5-5.0) g/dL Assessment and Plan Assessment: Impression: Weakness and hyponatremia uncertain etiology. Urine retention uncertain etiology. Recommendations: Due to the patient's mental and physical status was not able to get a complete evaluation as to why he is in urine retention. At this juncture he has been placed on tamsulosin I leave indwelling catheter until his mental status is improved at which time we'll reassess his urologic status and determine further care with regard to a catheter or voiding trials.
[2023-09-28] MEDS: TAMSULOSIN 0.4 MG CAP.ER.24H PO SCH (14:06)
--- NOTE | 2023-09-28 16:32 | US ---
EXAMINATION TYPE: US kidneys/renal and bladder DATE OF EXAM: 09/28/2023 COMPARISON: None CLINICAL INDICATION: Male, 77 years old with history of abad; Abnormal labs. Poor historian. Bladder solis. Portable EC patient EXAM MEASUREMENTS: Right Kidney: 11.1 x 6.0 x 5.9 cm Left Kidney: 12.3 x 4.7 x 5.8 cm Suboptimal due patient body habitus and overlying bowel gas Right Kidney: No prominent hydronephrosis or masses seen Left Kidney: No prominent hydronephrosis or masses seen, lobular contour Bladder: not visualized, patient has bladder solis There is no evidence for hydronephrosis at this point in time. No nephrolithiasis is seen. No refugio s are identified. The urinary bladder is anechoic. Bilateral ureteral jets are seen. IMPRESSION: No evidence for obstructive uropathy.
[2023-09-28 18:03] LABS: African American GFR (CKD) >90 (>60 ml/min/1.73 sqM); Anion Gap 9 mmol/L; Blood Urea Nitrogen 25 mg/dL (9-20); Calcium 7.9 mg/dL (8.4-10.2); Carbon Dioxide 25 mmol/L (22-30); Chloride 87 mmol/L (98-107); Glucose 105 mg/dL (74-99); Non-African American GFR(CKD) 83 (>60 ml/min/1.73 sqM); Potassium 3.8 mmol/L (3.5-5.1); Sodium 121 mmol/L (137-145)
[2023-09-28] MEDS: TOLVAPTAN 15 MG TABLET PO ONE (21:14)
[2023-09-28] MEDS: BACLOFEN 10 MG TAB PO SCH (21:15)
[2023-09-28] MEDS: DIVALPROEX 500 MG TABLET.DR PO SCH (21:16)
[2023-09-28] MEDS: AMITRIPTYLINE HCL 25 MG TAB PO SCH (23:22)
[2023-09-29] MEDS: PANTOPRAZOLE 40 MG TABLET PO SCH (06:26)
[2023-09-29] MEDS: amLODIPine 10 MG TAB PO SCH (07:58)
[2023-09-29 09:31] LABS: Magnesium 1.7 mg/dL (1.6-2.3)
[2023-09-29] MEDS: dexAMETHasone 2 MG TAB PO SCH (11:03)
--- NOTE | 2023-09-29 11:55 | P.PN ---
Subjective Patient is seen in follow-up for hyponatremia. Sodium level 121 as of yesterday evening. Morning labs are pending. Has Rosales catheter. Nonoliguric. Receiving IV fluids. Status post Samsca last night. Vital signs are stable. General: No acute distress. HEENT: Head exam is unremarkable. LUNGS: No audible rhonchi or wheezes. HEART: Rate and Rhythm are regular. ABDOMEN: Obese, nontender. EXTREMITITES: No edema. Objective - Vital Signs Vital signs: Vital Signs Temp 98.4 F 09/29/23 11:31 Pulse 105 H 09/29/23 11:31 Resp 16 09/29/23 11:31 BP 148/70 09/29/23 11:31 Pulse Ox 95 09/29/23 11:31 FiO2 Intake & Output 09/28/23 09/29/23 09/29/23 18:59 06:59 18:59 Output Total 600 600 Balance -600 -600 Weight 113.852 kg Output: Urine 600 600 Uretheral (Rosales) 600 Other: Voiding Method Indwelling Catheter Indwelling Catheter - Labs CBC & Chem 7: 09/27/23 22:53 09/28/23 17:34 Labs: Abnormal Lab Results - Last 24 Hours (Table) 09/28/23 09/28/23 09/28/23 Range/Units 06:32 07:36 10:44 Sodium (137-145) mmol/L Chloride (98-107) mmol/L BUN (9-20) mg/dL Glucose (74-99) mg/dL Osmolality 260 L (275-295) mOsm/kg Calcium (8.4-10.2) mg/dL Creatine Kinase 2669 H* (55-170) U/L Ur Random Sodium <20 L (40-220) mmol/L SARS-CoV-2 (PCR) (Not Detectd) 09/28/23 09/28/23 09/29/23 Range/Units 11:58 17:34 08:32 Sodium 121 L (137-145) mmol/L Chloride 87 L (98-107) mmol/L BUN 25 H (9-20) mg/dL Glucose 105 H (74-99) mg/dL Osmolality (275-295) mOsm/kg Calcium 7.9 L (8.4-10.2) mg/dL Creatine Kinase 4160 H* (55-170) U/L Ur Random Sodium (40-220) mmol/L SARS-CoV-2 (PCR) Detected A (Not Detectd) Assessment and Plan Plan: Assessment: 1. Hyponatremia. Component of hypovolemia as well as urinary retention. Sodium level 118 on admission -121 as of yesterday evening. TSH normal. Urine osmolality 543. Urine sodium less than 20. TSH normal. 2. Acute kidney injury secondary to urinary retention. Creatinine 1.26 on admission and down to 0.89 as of yesterday evening. No proteinuria on UA. No hydronephrosis noted on kidney ultrasound. 3. Urinary retention status post Rosales catheter placement. On Flomax. Urology following. 4. Benign hypertension. Controlled. 5. Hypokalemia from poor intake and postobstructive diuresis. Magnesium nor mal. 6. Rhabdomyolysis secondary to fall. CK level 4160 as of this morning. Plan: Maintain IV fluids due to rhabdomyolysis. Status post Samsca yesterday. Avoid nephrotoxins. Continue to monitor renal function and urine output. Follow-up morning labs.
--- NOTE | 2023-09-29 13:04 | P.PN ---
Subjective Progress Note Date: 09/29/23 patient is a 77-year-old gentleman past medical history significant for hypothyroidism, hypertension who presented to the ER for generalized weakness and fall. Patient was brought in by family members, apparently patient was trying to use the restroom when he lost all his strength and slumped to the ground. There was no complaint of any loss of consciousness. No complaint of weakness of any extremity. Family did not notice any slurred speech or facial droop. There was no complaint of fever or chills. No complaint of nausea, vomiting, abdominal pain. Patient's family tried to help him to get up but they were unable to lift him. They called EMS and they brought him to ER. Initial lab work done in the ER showed WBC 10.5, hemoglobin 15.2, platelet count 165, sodium 118, potassium 4.1, BUN 24, creatinine 1.26, plasma lactate 4.1, troponin 0.012 UA negative for any infection EKG done in the ER showed heart rate of 75, no ST segment elevation or depression seen, no T-wave inversions seen. Chest x-ray done in the ER no acute cardiopulmonary process CT head done showed no acute intracranial process Patient admitted to internal medicine service 09/29. Patient seen and examined. COVID-19 came back positive. Currently on 4 L of oxygen. Sodium this morning is 121. Still complain lethargy and weakness. Patient also diagnosed with COVID REVIEW OF SYSTEMS: CONSTITUTIONAL: No fever, no malaise,. CARDIOVASCULAR: No chest pain, no palpitations, no syncope. PULMONARY: No shortness of breath, no cough, GASTROINTESTINAL: No diarrhea, no nausea, no vomiting, no abdominal pain. NEUROLOGICAL: No headaches, no weakness, PHYSICAL EXAMINATION: GENERAL: The patient is alert and oriented x3, not in any acute distress. Well developed, well nourished. HEENT: Pupils are round and equally reacting to light. EOMI. No scleral icterus. No conjunctival pallor. Normocephalic, atraumatic. No pharyngeal erythema. No thyromegaly. CARDIOVASCULAR: S1 and S2 present. No murmurs, rubs, or gallops. PULMONARY: Chest is clear to auscultation, no wheezing or crackles. ABDOMEN: Soft, nontender, nondistended, normoactive bowel sounds. No palpable organomegaly. MUSCULOSKELETAL: No joint swelling or deformity. EXTREMITIES: No cyanosis, clubbing, or pedal edema. NEUROLOGICAL: Gross neurological examination did not reveal any focal deficits. SKIN: No rashes. Assessment and plan Hyponatremia COVID-19 Acute hypoxic respiratory failure Generalized weakness Rhabdomyolysis Fall Urinary retention Hypothyroidism Hypertension Monitor vital signs Monitor CBC Continue telemetry monitoring Strict I's and O's Daily weights Monitor BMP COVID-19 PCR was positive Continue IV fluids Continue Flomax. Avoid nephrotoxins. Start Decadron Patient being given 1 dose of tolvaptan on 09/29 Will discuss with ID regarding initiating remdesivir Nephrology following Urology following PT and OT consulted Labs and medication were reviewed.. Continue same treatment. Continue with symptomatic treatment. Resume home medication. Monitor labs and vitals. DVT and GI prophylaxis. Further recommendations as per clinical course of the patient Dictation was produced using [employer] dictation software. please excuse any grammatical, word or spelling errors. Objective - Vital Signs Vital signs: Vital Signs Temp 97.4 F L 09/29/23 07:56 Pulse 109 H 09/29/23 07:56 Resp 17 09/29/23 07:56 BP 134/80 09/29/23 07:56 Pulse Ox 95 09/29/23 07:56 FiO2 Intake & Output 09/28/23 09/29/23 09/29/23 18:59 06:59 18:59 Output Total 600 600 Balance -600 -600 Weight 113.852 kg Output: Urine 600 600 Uretheral (Rosales) 600 Other: Voiding Method Indwelling Catheter - Labs CBC & Chem 7: 09/27/23 22:53 09/28/23 17:34 Labs: Abnormal Lab Results - Last 24 Hours (Table) 09/28/23 09/28/23 09/28/23 Range/Units 06:32 07:36 10:44 Sodium (137-145) mmol/L Chloride (98-107) mmol/L BUN (9-20) mg/dL Glucose (74-99) mg/dL Osmolality 260 L (275-295) mOsm/kg Calcium (8.4-10.2) mg/dL Creatine Kinase 2669 H* (55-170) U/L Ur Random Sodium <20 L (40-220) mmol/L SARS-CoV-2 (PCR) (Not Detectd) 09/28/23 09/28/23 Range/Units 11:58 17:34 Sodium 121 L (137-145) mmol/L Chloride 87 L (98-107) mmol/L BUN 25 H (9-20) mg/dL Glucose 105 H (74-99) mg/dL Osmolality (275-295) mOsm/kg Calcium 7.9 L (8.4-10.2) mg/dL Creatine Kinase (55-170) U/L Ur Random Sodium (40-220) mmol/L SARS-CoV-2 (PCR) Detected A (Not Detectd)
[2023-09-29 13:17] LABS: Basophils # (A) 0.1 k/uL (0-0.2); Basophils % (A) 0 %; Eosinophils % (A) 0 %; HCT 39.1 % (39.0-53.0); HGB 13.2 gm/dL (13.0-17.5); Lymphocytes # (A) 2.5 k/uL (1.0-4.8); Lymphocytes % (A) 17 %; MCH 29.9 pg (25.0-35.0); MCHC 33.8 g/dL (31.0-37.0); MCV 88.6 fL (80.0-100.0); Mean Platelet Volume 12.6; Monocytes # (A) 1.1 k/uL (0-1.0); Monocytes % (A) 7 %; Neutrophils # (A) 11.2 k/uL (1.3-7.7); Neutrophils % (A) 75 %; Platelet Count 150 k/uL (150-450); RBC 4.41 m/uL (4.30-5.90); RDW 13.6 % (11.5-15.5); WBC 14.9 k/uL (3.8-10.6)
[2023-09-29 13:26] LABS: ALT 52 U/L (4-49); AST 180 U/L (17-59); African American GFR (CKD) >90 (>60 ml/min/1.73 sqM); Albumin 2.9 g/dL (3.5-5.0); Alkaline Phosphatase 62 U/L (38-126); Anion Gap 9 mmol/L; Blood Urea Nitrogen 18 mg/dL (9-20); Carbon Dioxide 22 mmol/L (22-30); Chloride 91 mmol/L (98-107); Glucose 136 mg/dL (74-99); Non-African American GFR(CKD) 87 (>60 ml/min/1.73 sqM); Potassium 3.7 mmol/L (3.5-5.1); Sodium 122 mmol/L (137-145); Total Bilirubin 1.1 mg/dL (0.2-1.3); Total Protein 5.7 g/dL (6.3-8.2)
[2023-09-29] MEDS: FUROSEMIDE 10 MG/ML 4 ML VIAL IV STA ×2 (14:14→20:53)
[2023-09-29 21:41] LABS: Glucose,Whole Blood 236 mg/dL (70-110)
--- NOTE | 2023-09-29 21:46 | P.CONS ---
History of Present Illness - Reason for Consult Consult date: 09/29/23 COVID-19 Requesting physician: Mauri Joy - Chief Complaint Increasing shortness of breath x few days - History of Present Illness Patient is a 77-year-old male with a past medical history significant for hypertension seizure disorder hypothyroidism patient has been brought into the hospital 2 days ago for evaluation of generalized weakness apparently patient had agreed to get up to use the bathroom and slumped to the ground apparently patient has been lying on the ground for numbers of our before the family arrived EMS was called and the patient was brought into the hospital. On arrival to the ER was afebrile and no fever have been recorded subsequently patient was not tachycardic or hypertensive but mildly hypoxic currently on 2 L nasal cannula oxygen patient did have a normal white count admission subsequent white count is up to 14.9 creatinine was normal liver enzymes mildly elevated urine has been negative he tested positive for COVID-19 patient did have a chest x-ray that was reported negative for acute findings in the chest, patient did have Rosales catheter placement because of retention abdominal bladder ultrasound no evidence for obstructive uropathy infectious disease was consulted today for the COVID-19, Patient slept elevated good historian when asked specifically has been complaining of weakness denies any headache chest pain, no shortness of breath did have some cough not bring up any sputum no vomiting or diarrhea reported by the nursing staff Review of Systems Positive point and negatives has been mentioned in the HPI, complete review of systems was performed and all other systems are negative Past Medical History Past Medical History: Hypertension, Seizure Disorder, Thyroid Disorder History of Any Multi-Drug Resistant Organisms: None Reported Past Surgical History: Hernia Repair Past Anesthesia/Blood Transfusion Reactions: No Reported Reaction Past Psychological History: No Psychological Hx Reported Smoking Status: Former smoker Past Alcohol Use History: None Reported Past Drug Use History: None Reported Medications and Allergies Home Medications Medication Instructions Recorded Confirmed Type Amitriptyline HCl [Elavil] 75 mg PO HS 09/28/23 09/28/23 History Baclofen [Lioresal] 10 mg PO HS 09/28/23 09/28/23 History Divalproex Sodium [Depakote] 1,000 mg PO HS 09/28/23 09/28/23 History Ergocalciferol [Vitamin D2 (1250 1,250 mcg PO Q14D 09/28/23 09/28/23 History Mcg = [id number] Iu)] Levothyroxine Sodium [Synthroid] 100 mcg PO DAILY 09/28/23 09/28/23 History Metoprolol Tartrate [Lopressor] 50 mg PO HS 09/28/23 09/28/23 History Metoprolol Tartrate [Lopressor] 100 mg PO DAILY 09/28/23 09/28/23 History Multivitamins, Thera [Multivitamin 1 tab PO DAILY 09/28/23 09/28/23 History (formulary)] Omeprazole 20 mg PO DAILY 09/28/23 09/28/23 History amLODIPine [Norvasc] 10 mg PO DAILY 09/28/23 09/28/23 History Albuterol Inhaler [Ventolin Hfa 2 puff INHALATION RT-QID each 10/14/23 Rx Inhaler] Furosemide [Lasix] 40 mg PO BID #60 tablet 10/14/23 Rx Tamsulosin [Flomax] 0.4 mg PO [id number] cap 10/14/23 Rx hydrALAZINE HCL [Apresoline] 25 mg PO TID tab 10/14/23 Rx Allergies Allergy/AdvReac Type Severity Reaction Status Date / Time Penicillins AdvReac Rash/Hives Verified 09/28/23 06:59 Physical Exam Vitals: Vital Signs Temp Pulse Pulse Resp BP BP Pulse Ox 09/29/23 11:31 98.4 F 105 H 16 148/70 95 09/29/23 07:56 97.4 F L 109 H 17 134/80 95 09/29/23 04:00 98.9 F 100 22 126/89 94 L 09/29/23 02:36 112 H 22 143/74 97 09/28/23 20:00 98.9 F 88 20 128/84 94 L 09/28/23 18:00 90 16 141/81 95 09/28/23 17:00 81 18 122/98 95 09/28/23 16:00 80 18 128/86 95 09/28/23 15:00 80 18 122/86 95 09/28/23 14:00 98.6 F 76 16 120/99 95 Intake and Output 09/28/23 09/29/23 09/29/23 22:59 06:59 14:59 Output Total 75 600 Balance -75 -600 Output: Urine 75 600 Uretheral (Rosales) 75 Other: Voiding Method Indwelling Catheter Indwelling Catheter Weight 113.852 kg GENERAL DESCRIPTION: Elderly female lying in bed, no distress. No tachypnea or accessory muscle of respiration use. HEENT: Shows Pallor , no scleral icterus. Oral mucous membrane is dry. NECK: Trachea central, no thyromegaly. LUNGS: Unlabored breathing. Decreased intensity of breath sounds no wheeze or crackle. HEART: S1, S2, regular rate and rhythm. No loud murmur ABDOMEN: Soft, no tenderness , guarding or rigidity, no organomegaly EXTREMITIES: No edema of feet. SKIN: No rash, no masses palpable. NEUROLOGICAL: The patient is awake, alert, oriented x3, mood and affect normal. Results CBC & Chem 7: 10/25/23 04:12 10/25/23 04:12 Labs: Abnormal Lab Results - Last 24 Hours (Table) 09/28/23 09/28/23 09/28/23 Range/Units 06:32 07:36 11:58 Sodium (137-145) mmol/L Chloride (98-107) mmol/L BUN (9-20) mg/dL Glucose (74-99) mg/dL Osmolality 260 L (275-295) mOsm/kg Calcium (8.4-10.2) mg/dL Creatine Kinase (55-170) U/L Ur Random Sodium <20 L (40-220) mmol/L SARS-CoV-2 (PCR) Detected A (Not Detectd) 09/28/23 09/29/23 Range/Units 17:34 08:32 Sodium 121 L (137-145) mmol/L Chloride 87 L (98-107) mmol/L BUN 25 H (9-20) mg/dL Glucose 105 H (74-99) mg/dL Osmolality (275-295) mOsm/kg Calcium 7.9 L (8.4-10.2) mg/dL Creatine Kinase 4160 H* (55-170) U/L Ur Random Sodium (40-220) mmol/L SARS-CoV-2 (PCR) (Not Detectd) Assessment and Plan (1) Leukocytosis Current Visit: Yes Status: Acute Code(s): D72.829 - ELEVATED WHITE BLOOD CELL COUNT, UNSPECIFIED SNOMED Code(s): 454059673 (2) COVID-19 Current Visit: Yes Status: Acute Code(s): U07.1 - COVID-19 SNOMED Code(s): 556967897 (3) Penicillin allergy Current Visit: Yes Status: Acute Code(s): Z88.0 - ALLERGY STATUS TO PENICILLIN SNOMED Code(s): 40892473 (4) Pneumonia Current Visit: Yes Status: Acute Code(s): J18.9 - PNEUMONIA, UNSPECIFIED ORGANISM SNOMED Code(s): 386292246 Plan: 1patient presented to hospital generalized weakness and did have a fall source likely multifactorial. He tested positive for COVID-19 however initial chest x- ray was negative for acute infiltrate treatment for COVID will be mostly supportive 2-patient no noted to have worsening of his white count and also noticed to have worsening of hypoxemia concerning for possible development of secondary bacterial pneumonia 3-we will check inflammatory markers and check a procalcitonin 4-we will add cefepime pending completion of the workup We will follow on clinical condition and cultures to further adjust medication if needed Thank you for this consultation we will follow the patient along with you Dictation was produced using [employer] dictation software. please excuse any grammatical, word or spelling errors. Time with Patient: Greater than 30
[2023-09-29] MEDS: CEFEPIME 2 GM in SODIUM CHLORIDE 0.9% 100 ML IVPB SCH (22:06)
[2023-09-29] MEDS: ACETAMINOPHEN TAB 325 MG TAB PO PRN (22:06)
[2023-09-30 05:53] LABS: Glucose,Whole Blood 166 mg/dL (70-110)
[2023-09-30 09:17] LABS: Basophils % (A) 0 %; Eosinophils % (A) 0 %; HCT 39.9 % (39.0-53.0); HGB 12.9 gm/dL (13.0-17.5); Lymphocytes # (A) 1.7 k/uL (1.0-4.8); Lymphocytes % (A) 11 %; MCH 29.4 pg (25.0-35.0); MCHC 32.5 g/dL (31.0-37.0); MCV 90.5 fL (80.0-100.0); Mean Platelet Volume 10.2; Monocytes # (A) 0.6 k/uL (0-1.0); Monocytes % (A) 4 %; Neutrophils # (A) 12.4 k/uL (1.3-7.7); Neutrophils % (A) 84 %; Platelet Count 146 k/uL (150-450); RBC 4.41 m/uL (4.30-5.90); RDW 13.6 % (11.5-15.5); WBC 14.9 k/uL (3.8-10.6)
[2023-09-30 09:39] LABS: ALT 43 U/L (4-49); African American GFR (CKD) >90 (>60 ml/min/1.73 sqM); Albumin 2.8 g/dL (3.5-5.0); Anion Gap 6 mmol/L; Blood Urea Nitrogen 15 mg/dL (9-20); Calcium 8.1 mg/dL (8.4-10.2); Carbon Dioxide 26 mmol/L (22-30); Chloride 94 mmol/L (98-107); Glucose 152 mg/dL (74-99); Non-African American GFR(CKD) >90 (>60 ml/min/1.73 sqM); Sodium 126 mmol/L (137-145); Total Bilirubin 1.1 mg/dL (0.2-1.3); Total Protein 5.8 g/dL (6.3-8.2)
--- NOTE | 2023-09-30 10:06 | XR ---
EXAMINATION TYPE: XR chest 1V portable DATE OF EXAM: 09/30/2023 Comparison: 07/27/2024 Clinical History: 77-year-old male pneumonia, shortness of breath Findings: Asymmetric elevation right hemidiaphragm. This obscures the right heart margin. Focal right basilar o pacity appears increased. Upper lungs are clear. Impression: 1. Ongoing asymmetric elevation right hemidiaphragm. If concern for hemidiaphragmatic paralysis, a fl uoroscopic sniff test can be performed. 2. New patchy right basilar opacity probably atelectasis rather than pneumonia. Clinically correlate.
[2023-09-30 10:20] LABS: AST 148 U/L (17-59); Alkaline Phosphatase 44 U/L (38-126); Magnesium 1.7 mg/dL (1.6-2.3); Potassium 3.9 mmol/L (3.5-5.1)
[2023-09-30 10:21] LABS: Creatine Kinase 2283 U/L (55-170)
[2023-09-30 11:45] LABS: Glucose,Whole Blood 220 mg/dL (70-110)
--- NOTE | 2023-09-30 11:55 | P.PN ---
Subjective Patient is seen in follow-up for hyponatremia. Sodium level 126 this morning. Has Rosales catheter. Nonoliguric. Receiving IV fluids. CK levels trending down. Vital signs are stable. General: No acute distress. HEENT: Head exam is unremarkable. On nonrebreather. LUNGS: No audible rhonchi or wheezes. HEART: Rate and Rhythm are regular. ABDOMEN: Obese, nontender. EXTREMITITES: No edema. Objective - Vital Signs Vital signs: Vital Signs Temp 96.9 F L 09/30/23 08:00 Pulse 98 09/30/23 08:00 Resp 18 09/30/23 08:00 BP 142/74 09/30/23 08:00 Pulse Ox 94 L 09/30/23 10:04 FiO2 100 09/30/23 10:04 Intake & Output 09/29/23 09/30/23 09/30/23 18:59 06:59 18:59 Output Total 1999 1750 Balance -1999 Weight 113.852 kg Output: Urine 19990 Other: Voiding Method Indwelling Catheter Indwelling Catheter Indwelling Catheter - Labs CBC & Chem 7: 09/30/23 08:18 09/30/23 08:18 Labs: Abnormal Lab Results - Last 24 Hours (Table) 09/29/23 09/29/23 09/29/23 Range/Units 08:32 08:32 08:32 WBC 14.9 H (3.8-10.6) k/uL Hgb (13.0-17.5) gm/dL Plt Count (150-450) k/uL Neutrophils # 11.2 H (1.3-7.7) k/uL Monocytes # 1.1 H (0-1.0) k/uL Sodium 122 L (137-145) mmol/L Chloride 91 L (98-107) mmol/L Glucose 136 H (74-99) mg/dL POC Glucose (mg/dL) (70-110) mg/dL Calcium 8.0 L (8.4-10.2) mg/dL AST 180 H (17-59) U/L ALT 52 H (4-49) U/L Creatine Kinase (55-170) U/L Total Protein 5.7 L (6.3-8.2) g/dL Albumin 2.9 L (3.5-5.0) g/dL Procalcitonin 0.43 H (0.02-0.09) ng/mL 09/29/23 09/29/23 09/30/23 Range/Units 17:53 21:39 05:50 WBC (3.8-10.6) k/uL Hgb (13.0-17.5) gm/dL Plt Count (150-450) k/uL Neutrophils # (1.3-7.7) k/uL Monocytes # (0-1.0) k/uL Sodium 124 L (137-145) mmol/L Chloride (98-107) mmol/L Glucose (74-99) mg/dL POC Glucose (mg/dL) 236 H 166 H (70-110) mg/dL Calcium (8.4-10.2) mg/dL AST (17-59) U/L ALT (4-49) U/L Creatine Kinase (55-170) U/L Total Protein (6.3-8.2) g/dL Albumin (3.5-5.0) g/dL Procalcitonin (0.02-0.09) ng/mL 09/30/23 09/30/23 09/30/23 Range/Units 08:18 08:18 11:44 WBC 14.9 H (3.8-10.6) k/uL Hgb 12.9 L (13.0-17.5) gm/dL Plt Count 146 L (150-450) k/uL Neutrophils # 12.4 H (1.3-7.7) k/uL Monocytes # (0-1.0) k/uL Sodium 126 L (137-145) mmol/L Chloride 94 L (98-107) mmol/L Glucose 152 H (74-99) mg/dL POC Glucose (mg/dL) 220 H (70-110) mg/dL Calcium 8.1 L (8.4-10.2) mg/dL AST 148 H (17-59) U/L ALT (4-49) U/L Creatine Kinase 2283 H* (55-170) U/L Total Protein 5.8 L (6.3-8.2) g/dL Albumin 2.8 L (3.5-5.0) g/dL Procalcitonin (0.02-0.09) ng/mL Assessment and Plan Plan: Assessment: 1. Hyponatremia. Component of hypovolemia as well as urinary retention. Sodium level 118 on admission -126 today. TSH normal. Urine osmolality 543. Urine sodium less than 20. TSH normal. 2. Acute kidney injury secondary to urinary retention. Creatinine 1.26 on admission and down to 0.89 as of yesterday evening. No proteinuria on UA. No hydronephrosis noted on kidney ultrasound. 3. Urinary retention status post Rosales catheter placement. On Flomax. Urology following. 4. Benign hypertension. Controlled. 5. Hypokalemia from poor intake and postobstructive diuresis. Magnesium normal. 6. Rhabdomyolysis secondary to fall. CK level trending down. Plan: Maintain IV fluids due to rhabdomyolysis - decrease rate to 50 cc an hour. Status post Samsca and IV Lasix this admission. Repeat IV Lasix today. Avoid nephrotoxins. Continue to monitor renal function and urine output. Repeat labs in the morning.
--- NOTE | 2023-09-30 12:35 | P.PN ---
Subjective Progress Note Date: 09/30/23 Principal diagnosis: Reason for follow-up is COVID-19 and pneumonia Patient is a 77-year-old male with a past medical history significant for hypertension seizure disorder hypothyroidism patient has been brought into the hospital for evaluation of generalized weakness patient was noticed to be on the bathroom floor after apparently patient fell down, patient did tested positive for COVID-19, initial chest x-ray reported negative. On today's evaluation that is 09/30/2023, the patient spike a fever 100.7 F last night is afebrile this morning the patient also have worsening of his respiratory status currently on a nonrebreather 15 L oxygen patient however denies having any chest pain no worsening cough no nausea vomiting abdominal pain or diarrhea. Patient white count is 14.9 creatinine 0.68 procalcitonin 0.43 chest x-ray repeat new patchy right basilar opacity atelectasis rather than pneumonia Objective - Vital Signs Vital signs: Vital Signs Temp 96.9 F L 09/30/23 08:00 Pulse 98 09/30/23 08:00 Resp 18 09/30/23 08:00 BP 142/74 09/30/23 08:00 Pulse Ox 94 L 09/30/23 10:04 FiO2 100 09/30/23 10:04 Intake & Output 09/29/23 09/30/23 09/30/23 18:59 06:59 18:59 Output Total 1999 1750 Balance -1999 -1750 Weight 113.852 kg Output: Urine 1999 1750 Other: Voiding Method Indwelling Catheter Indwelling Catheter Indwelling Catheter - Exam GENERAL DESCRIPTION: An elderly male lying in bed in no distress RESPIRATORY SYSTEM: Unlabored breathing , decreased breath sounds at bases HEART: S1 S2 regular rate and rhythm , ABDOMEN: Soft , no tenderness EXTREMITIES: No edema feet - Labs CBC & Chem 7: 09/30/23 08:18 09/30/23 08:18 Labs: Abnormal Lab Results - Last 24 Hours (Table) 09/29/23 09/29/23 09/29/23 Range/Units 08:32 08:32 08:32 WBC 14.9 H (3.8-10.6) k/uL Hgb (13.0-17.5) gm/dL Plt Count (150-450) k/uL Neutrophils # 11.2 H (1.3-7.7) k/uL Monocytes # 1.1 H (0-1.0) k/uL Sodium 122 L (137-145) mmol/L Chloride 91 L (98-107) mmol/L Glucose 136 H (74-99) mg/dL POC Glucose (mg/dL) (70-110) mg/dL Calcium 8.0 L (8.4-10.2) mg/dL AST 180 H (17-59) U/L ALT 52 H (4-49) U/L Creatine Kinase (55-170) U/L Total Protein 5.7 L (6.3-8.2) g/dL Albumin 2.9 L (3.5-5.0) g/dL Procalcitonin 0.43 H (0.02-0.09) ng/mL 09/29/23 09/29/23 09/30/23 Range/Units 17:53 21:39 05:50 WBC (3.8-10.6) k/uL Hgb (13.0-17.5) gm/dL Plt Count (150-450) k/uL Neutrophils # (1.3-7.7) k/uL Monocytes # (0-1.0) k/uL Sodium 124 L (137-145) mmol/L Chloride (98-107) mmol/L Glucose (74-99) mg/dL POC Glucose (mg/dL) 236 H 166 H (70-110) mg/dL Calcium (8.4-10.2) mg/dL AST (17-59) U/L ALT (4-49) U/L Creatine Kinase (55-170) U/L Total Protein (6.3-8.2) g/dL Albumin (3.5-5.0) g/dL Procalcitonin (0.02-0.09) ng/mL 09/30/23 09/30/23 09/30/23 Range/Units 08:18 08:18 11:44 WBC 14.9 H (3.8-10.6) k/uL Hgb 12.9 L (13.0-17.5) gm/dL Plt Count 146 L (150-450) k/uL Neutrophils # 12.4 H (1.3-7.7) k/uL Monocytes # (0-1.0) k/uL Sodium 126 L (137-145) mmol/L Chloride 94 L (98-107) mmol/L Glucose 152 H (74-99) mg/dL POC Glucose (mg/dL) 220 H (70-110) mg/dL Calcium 8.1 L (8.4-10.2) mg/dL AST 148 H (17-59) U/L ALT (4-49) U/L Creatine Kinase 2283 H* (55-170) U/L Total Protein 5.8 L (6.3-8.2) g/dL Albumin 2.8 L (3.5-5.0) g/dL Procalcitonin (0.02-0.09) ng/mL Assessment and Plan (1) COVID-19 Current Visit: Yes Status: Acute Code(s): U07.1 - COVID-19 SNOMED Code(s): 019752595 (2) Sepsis Current Visit: Yes Status: Acute Code(s): A41.9 - SEPSIS, UNSPECIFIED ORGANISM SNOMED Code(s): 83764578 (3) Pneumonia Current Visit: Yes Status: Acute Code(s): J18.9 - PNEUMONIA, UNSPECIFIED ORGANISM SNOMED Code(s): 696321914 (4) Penicillin allergy Current Visit: Yes Status: Acute Code(s): Z88.0 - ALLERGY STATUS TO PENICILLIN SNOMED Code(s): 03083530 Plan: 1patient presented to hospital generalized weakness and did have a fall source likely multifactorial. He tested positive for COVID-19 however initial chest x- ray was negative for acute infiltrate treatment for COVID will be mostly supportive 2-patient did have a new fever worsening leukocytosis and a chest x-ray with rig ht lower lobe infiltrate concerning for possible pneumonia cefepime has been added try to obtain a sputum and monitor clinical course closely Dictation was produced using [employer] dictation software. please excuse any grammatical, word or spelling errors. Time with Patient: Less than 30
[2023-09-30] MEDS: FUROSEMIDE 10 MG/ML 4 ML VIAL IV STA (12:37)
--- NOTE | 2023-09-30 14:09 | P.PN ---
Subjective Progress Note Date: 09/30/23 patient is a 77-year-old gentleman past medical history significant for hypothyroidism, hypertension who presented to the ER for generalized weakness and fall. Patient was brought in by family members, apparently patient was trying to use the restroom when he lost all his strength and slumped to the ground. There was no complaint of any loss of consciousness. No complaint of weakness of any extremity. Family did not notice any slurred speech or facial droop. There was no complaint of fever or chills. No complaint of nausea, vomiting, abdominal pain. Patient's family tried to help him to get up but they were unable to lift him. They called EMS and they brought him to ER. Initial lab work done in the ER showed WBC 10.5, hemoglobin 15.2, platelet count 165, sodium 118, potassium 4.1, BUN 24, creatinine 1.26, plasma lactate 4.1, troponin 0.012 UA negative for any infection EKG done in the ER showed heart rate of 75, no ST segment elevation or depression seen, no T-wave inversions seen. Chest x-ray done in the ER no acute cardiopulmonary process CT head done showed no acute intracranial process Patient admitted to internal medicine service 09/29. Patient seen and examined. COVID-19 came back positive. Currently on 4 L of oxygen. Sodium this morning is 121. Still complain lethargy and weakness. Patient also diagnosed with COVID 09/30. Patient seen and examined. Blood work done this morning showed WBC 14.9, hemoglobin 12.9, platelet count 146, sodium 126, potassium 3.9, BUN 15, creatinine 0.68. States he feels much better. Shortness of breath is improved. REVIEW OF SYSTEMS: CONSTITUTIONAL: No fever, no malaise,. CARDIOVASCULAR: No chest pain, no palpitations, no syncope. PULMONARY: No shortness of breath, no cough, GASTROINTESTINAL: No diarrhea, no nausea, no vomiting, no abdominal pain. NEUROLOGICAL: No headaches, no weakness, PHYSICAL EXAMINATION: GENERAL: The patient is alert and oriented x3, not in any acute distress. Well developed, well nourished. HEENT: Pupils are round and equally reacting to light. EOMI. No scleral icterus. No conjunctival pallor. Normocephalic, atraumatic. No pharyngeal erythema. No thyromegaly. CARDIOVASCULAR: S1 and S2 present. No murmurs, rubs, or gallops. PULMONARY: Chest is clear to auscultation, no wheezing or crackles. ABDOMEN: Soft, nontender, nondistended, normoactive bowel sounds. No palpable organomegaly. MUSCULOSKELETAL: 1+ pitting edema lower extremities bilaterally EXTREMITIES: No cyanosis, clubbing, or pedal edema. NEUROLOGICAL: Gross neurological examination did not reveal any focal deficits. SKIN: No rashes. Assessment and plan Hyponatremia COVID-19 Acute hypoxic respiratory failure Generalized weakness Rhabdomyolysis Fall Urinary retention Hypothyroidism Hypertension Monitor vital signs Monitor CBC Continue telemetry monitoring Strict I's and O's Daily weights Monitor BMP COVID-19 PCR was positive Continue Flomax. Avoid nephrotoxins. Continue Decadron Continue cefepime ID following Nephrology following, patient received tolvaptan on 09/29, ordered Lasix for today Urology following PT and OT consulted Labs and medication were reviewed.. Continue same treatment. Continue with symptomatic treatment. Resume home medication. Monitor labs and vitals. DVT and GI prophylaxis. Further recommendations as per clinical course of the patient Dictation was produced using [email or web address] dictation software. please excuse any grammatical, word or spelling errors. Objective - Vital Signs Vital signs: Vital Signs Temp 97.3 F L 09/30/23 04:00 Pulse 85 09/30/23 04:00 Resp 22 09/30/23 04:00 BP 133/71 09/30/23 04:00 Pulse Ox 95 09/30/23 09:29 FiO2 100 09/30/23 09:29 Intake & Output 09/29/23 09/30/23 09/30/23 18:59 06:59 18:59 Output Total 1999 1749 Balance -1999 Weight 113.852 kg Output: Urine 1999 1749 Other: Voiding Method Indwelling Catheter Indwelling Catheter - Labs CBC & Chem 7: 09/30/23 08:18 09/30/23 08:18 Labs: Abnormal Lab Results - Last 24 Hours (Table) 09/29/23 09/29/23 09/29/23 Range/Units 08:32 08:32 08:32 WBC 14.9 H (3.8-10.6) k/uL Hgb (13.0-17.5) gm/dL Plt Count (150-450) k/uL Neutrophils # 11.2 H (1.3-7.7) k/uL Monocytes # 1.1 H (0-1.0) k/uL Sodium 122 L (137-145) mmol/L Chloride 91 L (98-107) mmol/L Glucose 136 H (74-99) mg/dL POC Glucose (mg/dL) (70-110) mg/dL Calcium 8.0 L (8.4-10.2) mg/dL AST 180 H (17-59) U/L ALT 52 H (4-49) U/L Creatine Kinase (55-170) U/L Total Protein 5.7 L (6.3-8.2) g/dL Albumin 2.9 L (3.5-5.0) g/dL Procalcitonin 0.43 H (0.02-0.09) ng/mL 09/29/23 09/29/23 09/30/23 Range/Units 17:53 21:39 05:50 WBC (3.8-10.6) k/uL Hgb (13.0-17.5) gm/dL Plt Count (150-450) k/uL Neutrophils # (1.3-7.7) k/uL Monocytes # (0-1.0) k/uL Sodium 124 L (137-145) mmol/L Chloride (98-107) mmol/L Glucose (74-99) mg/dL POC Glucose (mg/dL) 236 H 166 H (70-110) mg/dL Calcium (8.4-10.2) mg/dL AST (17-59) U/L ALT (4-49) U/L Creatine Kinase (55-170) U/L Total Protein (6.3-8.2) g/dL Albumin (3.5-5.0) g/dL Procalcitonin (0.02-0.09) ng/mL 09/30/23 09/30/23 Range/Units 08:18 08:18 WBC 14.9 H (3.8-10.6) k/uL Hgb 12.9 L (13.0-17.5) gm/dL Plt Count 146 L (150-450) k/uL Neutrophils # 12.4 H (1.3-7.7) k/uL Monocytes # (0-1.0) k/uL Sodium 126 L (137-145) mmol/L Chloride 94 L (98-107) mmol/L Glucose 152 H (74-99) mg/dL POC Glucose (mg/dL) (70-110) mg/dL Calcium 8.1 L (8.4-10.2) mg/dL AST 148 H (17-59) U/L ALT (4-49) U/L Creatine Kinase 2283 H* (55-170) U/L Total Protein 5.8 L (6.3-8.2) g/dL Albumin 2.8 L (3.5-5.0) g/dL Procalcitonin (0.02-0.09) ng/mL
--- NOTE | 2023-09-30 14:42 | CDI ---
Documentation Clarification Form Date: From: Felicitas Gutierrez Phone: [phone] Admit Date: 09/28/2023 01:41:00 AM Patient Name: Ana Kaba Visit Number: [id number] Discharge Date: ATTENTION: The Clinical Documentation Specialists (CDI) and [facility] Coding Staff appreciate your assistance in clarifying documentation. Please respond to the clarification below the line at the bottom and electronically sign. The CDI & [facility] Coding staff will review the response and follow-up if needed. Please note: Queries are made part of the Legal Health Record. If you have any questions, please contact the author of this message via ITS. Dr. Mauri Joy Rhabdomyolysis is documented H&P on 09/28. Additional clarification regarding the type of rhabdomyolysis is requested. History/Risk Factors: "77-year-old gentleman past medical history significant for hypothyroidism, hypertension who presented to the ER for generalized weakness and fall. Patient was brought in by family members, apparently patient was trying to use the restroom when he lost all his strength and slumped to the ground." - Per H&P on 09/28 Clinical Indicators: "Patient states he fell prior to admission. Patient states he was falling multiple times." "Rhabdomyolysis secondary to fall." - Per Nephrology Note on 09/28 Treatment: "Maintain IV fluids with normal saline at 100 cc an hour" - Per Nephrology Note on 09/28 Please clarify the type of rhabdomyolysis, if known: [x ] Traumatic rhabdomyolysis due to fall [ ] Non traumatic rhabdomyolysis due to (please specify) [ ] Other, please specify [ ] Unable to Determine MTDD
--- NOTE | 2023-09-30 14:58 | CDI ---
Documentation Clarification Form Date: From: Felicitas Gutierrez Phone: [phone] Admit Date: 09/28/2023 01:41:00 AM Patient Name: Ana Kaba Visit Number: [id number] Discharge Date: ATTENTION: The Clinical Documentation Specialists (CDI) and [facility] Coding Staff appreciate your assistance in clarifying documentation. Please respond to the clarification below the line at the bottom and electronically sign. The CDI & [facility] Coding staff will review the response and follow-up if needed. Please note: Queries are made part of the Legal Health Record. If you have any questions, please contact the author of this message via ITS. Dr. Mauri Joy "Sepsis" is documented in the Infectious Disease note dated 09/30. For each diagnosis, documentation must be clear to determine if the condition was present at the time of the patients inpatient admission or developed during the hospital stay. Additional clarification regarding the Sepsis is requested. History/Risk Factors: 77-year-old gentleman past medical history significant for hypothyroidism, hypertension who presented to the ER for generalized weakness and fall." - Per H&P on 09/28 Clinical Indicators: "infectious disease was consulted today for the COVID-19" "initial chest x-ray was negative for acute infiltrate" "worsening of his white count and also noticed to have worsening of hypoxemia concerning for possible development of secondary bacterial pneumonia" - Per Infectious Disease note on 09/29 "patient spike a fever 100.7 F last night" - Infectious Disease Note on 09/30 WBC: 09/27 - 10.5, 09/29 - 14.9, 09/30 - 14.9 Neutrophils #: 09/27 - 8.0, 09/29 - 11.2, 09/30 - 12.4 Lactic Acid: 09/27 - 4.1, 09/28 - 3.1, 1.9 Creatinine: 09/27 - 1.26, 08/28 - 1.11, 0.89, 09/29 - 0.80, 09/30 - 0.68 Procalcitonin: 09/29 - 0.43 COVID: 09/28 Detected Treatment: Per Infectious Disease note on 09/29 "3-we will check inflammatory markers and check a procalcitonin 4-we will add cefepime pending completion of the workup" Definition of Present on Admission (POA): A diagnosis present at the time the order for admission to inpatient status was written. Please clarify if the Sepsis was POA [ x ] Y = Yes, the condition was present at the time of the order for inpatient admission. [ ] N = No, the condition was not present at the time of the order for inpatient admission. [ ] W = Clinically undetermined if the condition was present at the time of the order for inpatient admission. MTDD
--- NOTE | 2023-09-30 15:35 | FL ---
EXAMINATION TYPE: FL sniff test without CXR DATE OF EXAM: 09/30/2023 Comparison: Radiograph same day Clinical History: 77-year-old male Right diaphragm elevation TECHNIQUE: Real-time fluoroscopy during breathing, deep inspiration, and attempts at sniff maneuver. Total fluoroscopy time: 1 minute 27 seconds. Total images: 5. 505.13 mGycm2 DAP dose Findings: Asymmetric elevation right hemidiaphragm. During quiet breathing, there is symmetric excursion and di rection of movement of the hemidiaphragms. During deep breathing, there is intermittent hesitancy in initiation of movement of the right hemidia phragm but overall symmetric direction and excursion. The patient is unable to adequately perform the sniffing maneuver. Overall condition. Impression: 1. Nondiagnostic exam. There is asymmetric elevation right hemidiaphragm which is suspicious but the patient is unable to perform sniffing maneuver due to overall condition. 2. Repeat exam following successful treatment and after patient's condition has improved.
[2023-09-30 16:35] LABS: ABG HCO3 31 mmol/L (21-25); ABG PCO2 42 mmHg (35-45); ABG PH 7.47 (7.35-7.45); ABG TCO2 32 mmol/L (19-24); Allen Test Performed? Yes
--- NOTE | 2023-09-30 16:36 | P.CNPUL ---
History of Present Illness Consult date: 09/30/23 Requesting physician: Lo Albarran Reason for consult: abnormal CXR/CT Chief complaint: Generalized weakness History of present illness: This is a 77-year-old male patient with a history of hypertension, seizure disorder, thyroid disorder, former smoker. On September 27, 2023 the patient had gotten up to go the bathroom and slumped onto the ground. He had been reportedly laying on the ground for several hours by family were attempting to get in helping him get up but he was unable to support himself. He also had trouble with urinary incontinence. EMS was called and he was brought here for evaluation. CT scan of the brain revealed no acute intracranial hemorrhage, midline shift or mass effect. EKG revealed sinus rhythm with no significant ST or T wave abnormalities. White count 14.9. Hemoglobin 12.9. Platelets 146. Sodium 126. Potassium 3.9. Bicarb 26. BUN 15. Creatinine 0.68. Glucose 152. AST 148. ALT 43. Creatinine kinase 2283. He did test positive for COVID-19 infection. His initial sodium level was 118. BUN of 24 and a creatinine of 1.26. He had been seen by nephrology, urology and infectious disease. A chest x-ray was done today September 30, 2023 that revealed an elevated right hemidiaphragm and we are consulted for the same. He was sent for a sniff test however the patient was unable to perform the appropriate maneuvers due to overall condition. He is seen on consultation on the selective care unit. He is currently resting in bed. Difficult to arouse but arousable. He is on a nonrebreather mask with O2 saturation of 90%. Currently afebrile. Hemodynamically stable. He has been initiated on Decadron. Antibiotics in the form of cefepime. Saline at 50 MLS per hour. Review of Systems ROS unobtainable: due to mental status Past Medical History Past Medical History: Hypertension, Seizure Disorder, Thyroid Disorder History of Any Multi-Drug Resistant Organisms: None Reported Past Surgical History: Hernia Repair Past Anesthesia/Blood Transfusion Reactions: No Reported Reaction Past Psychological History: No Psychological Hx Reported Smoking Status: Former smoker Past Alcohol Use History: None Reported Past Drug Use History: None Reported Medications and Allergies Home Medications Medication Instructions Recorded Confirmed Type Amitriptyline HCl [Elavil] 75 mg PO HS 09/28/23 09/28/23 History Baclofen [Lioresal] 10 mg PO HS 09/28/23 09/28/23 History Divalproex Sodium [Depakote] 1,000 mg PO HS 09/28/23 09/28/23 History Ergocalciferol [Vitamin D2 (1250 1,250 mcg PO Q14D 09/28/23 09/28/23 History Mcg = 63508 Iu)] Levothyroxine Sodium [Synthroid] 100 mcg PO DAILY 09/28/23 09/28/23 History Metoprolol Tartrate [Lopressor] 50 mg PO HS 09/28/23 09/28/23 History Metoprolol Tartrate [Lopressor] 100 mg PO DAILY 09/28/23 09/28/23 History Multivitamins, Thera [Multivitamin 1 tab PO DAILY 09/28/23 09/28/23 History (formulary)] Omeprazole 20 mg PO DAILY 09/28/23 09/28/23 History amLODIPine [Norvasc] 10 mg PO DAILY 09/28/23 09/28/23 History Allergies Allergy/AdvReac Type Severity Reaction Status Date / Time Penicillins AdvReac Rash/Hives Verified 09/28/23 06:59 Physical Exam Vitals: Vital Signs Temp Pulse Resp BP Pulse Ox FiO2 09/30/23 16:10 96 09/30/23 14:00 98 18 09/30/23 12:36 95 100 09/30/23 12:00 98.1 F 98 18 160/76 95 09/30/23 10:04 94 L 100 09/30/23 09:29 95 100 09/30/23 08:00 96.9 F L 98 18 142/74 92 L 09/30/23 04:00 97.3 F L 85 22 133/71 93 L 09/30/23 02:00 102 H 22 09/30/23 00:57 99.8 F H 102 H 22 135/77 94 L 09/29/23 21:44 90 L 100 09/29/23 21:30 100.7 F H 120 H 22 134/85 90 L 09/29/23 20:00 98.1 F 113 H 20 142/79 93 L Intake and Output 09/30/23 09/30/23 09/30/23 06:59 14:59 22:59 Intake Total 120 Output Total 1000 700 Balance -1000 -580 Intake: Oral 120 Output: Urine 1000 700 Other: Voiding Method Indwelling Catheter Indwelling Catheter GENERAL EXAM: Lethargic but arousable 77-year-old male on a nonrebreather mask with O2 saturation in the low 90s. HEAD: Normocephalic. EYES: Normal reaction of pupils, equal size. NOSE: Clear with pink turbinates. THROAT: No erythema or exudates. NECK: No masses, no JVD. CHEST: No chest wall deformity. LUNGS: Equal air entry with no crackles, wheeze, rhonchi or dullness. Diminished in the right lung base. CVS: S1 and S2 normal with no audible murmur, regular rhythm. ABDOMEN: No hepatosplenomegaly, normal bowel sounds, no guarding or rigidity. SPINE: No scoliosis or deformity SKIN: No rashes CENTRAL NERVOUS SYSTEM: Lethargic but arousable, no focal deficits, tone is normal in all 4 extremities. EXTREMITIES: There is no peripheral edema. No clubbing, no cyanosis. Peripheral pulses are intact. Results - Laboratory Findings CBC and BMP: 09/30/23 08:18 09/30/23 08:18 PT/INR, D-dimer PT 11.0 sec (10.0-12.5) 09/27/23 22:53 INR 1.0 (<1.2) 09/27/23 22:53 Abnormal lab findings: Abnormal Labs 09/27/23 09/27/23 09/27/23 22:53 22:53 22:53 WBC Hgb Plt Count Neutrophils # 8.0 H Monocytes # Sodium 118 L* Chloride 83 L BUN 24 H Creatinine 1.26 H Glucose 189 H POC Glucose (mg/dL) Osmolality Plasma Lactic Acid Guillaume 4.1 H* Calcium 8.2 L AST 95 H ALT Creatine Kinase Total Creatine Kinase Total Protein Albumin Procalcitonin Urine Blood Urine RBC Urine Mucus Ur Random Sodium SARS-CoV-2 (PCR) 09/28/23 09/28/23 09/28/23 01:06 01:50 01:53 WBC Hgb Plt Count Neutrophils # Monocytes # Sodium Chloride BUN Creatinine Glucose POC Glucose (mg/dL) Osmolality Plasma Lactic Acid Guillaume 3.1 H* Calcium AST ALT Creatine Kinase 1241 H* Total Creatine Kinase Total Protein Albumin Procalcitonin Urine Blood Trace H Urine RBC 17 H Urine Mucus Rare H Ur Random Sodium SARS-CoV-2 (PCR) 09/28/23 09/28/23 09/28/23 01:53 06:32 07:36 WBC Hgb Plt Count Neutrophils # Monocytes # Sodium 122 L Chloride 85 L BUN 27 H Creatinine Glucose 116 H POC Glucose (mg/dL) Osmolality 260 L Plasma Lactic Acid Guillaume Calcium 8.1 L AST ALT Creatine Kinase Total Creatine Kinase 1036 H Total Protein Albumin Procalcitonin Urine Blood Urine RBC Urine Mucus Ur Random Sodium <20 L SARS-CoV-2 (PCR) 09/28/23 09/28/23 09/28/23 10:44 11:58 17:34 WBC Hgb Plt Count Neutrophils # Monocytes # Sodium 121 L Chloride 87 L BUN 25 H Creatinine Glucose 105 H POC Glucose (mg/dL) Osmolality Plasma Lactic Acid Guillaume Calcium 7.9 L AST ALT Creatine Kinase 2669 H* Total Creatine Kinase Total Protein Albumin Procalcitonin Urine Blood Urine RBC Urine Mucus Ur Random Sodium SARS-CoV-2 (PCR) Detected A 09/29/23 09/29/23 09/29/23 08:32 08:32 08:32 WBC 14.9 H Hgb Plt Count Neutrophils # 11.2 H Monocytes # 1.1 H Sodium 122 L Chloride 91 L BUN Creatinine Glucose 136 H POC Glucose (mg/dL) Osmolality Plasma Lactic Acid Guillaume Calcium 8.0 L AST 180 H ALT 52 H Creatine Kinase 4160 H* Total Creatine Kinase Total Protein 5.7 L Albumin 2.9 L Procalcitonin Urine Blood Urine RBC Urine Mucus Ur Random Sodium SARS-CoV-2 (PCR) 09/29/23 09/29/23 09/29/23 08:32 17:53 21:39 WBC Hgb Plt Count Neutrophils # Monocytes # Sodium 124 L Chloride BUN Creatinine Glucose POC Glucose (mg/dL) 236 H Osmolality Plasma Lactic Acid Guillaume Calcium AST ALT Creatine Kinase Total Creatine Kinase Total Protein Albumin Procalcitonin 0.43 H Urine Blood Urine RBC Urine Mucus Ur Random Sodium SARS-CoV-2 (PCR) 09/30/23 09/30/23 09/30/23 05:50 08:18 08:18 WBC 14.9 H Hgb 12.9 L Plt Count 146 L Neutrophils # 12.4 H Monocytes # Sodium 126 L Chloride 94 L BUN Creatinine Glucose 152 H POC Glucose (mg/dL) 166 H Osmolality Plasma Lactic Acid Guillaume Calcium 8.1 L AST 148 H ALT Creatine Kinase 2283 H* Total Creatine Kinase Total Protein 5.8 L Albumin 2.8 L Procalcitonin Urine Blood Urine RBC Urine Mucus Ur Random Sodium SARS-CoV-2 (PCR) 09/30/23 11:44 WBC Hgb Plt Count Neutrophils # Monocytes # Sodium Chloride BUN Creatinine Glucose POC Glucose (mg/dL) 220 H Osmolality Plasma Lactic Acid Guillaume Calcium AST ALT Creatine Kinase Total Creatine Kinase Total Protein Albumin Procalcitonin Urine Blood Urine RBC Urine Mucus Ur Random Sodium SARS-CoV-2 (PCR) - Diagnostic Findings Chest x-ray: image reviewed Assessment and Plan Assessment: Generalized weakness and fall suspect secondary to hyponatremia and COVID-19 infection Altered mental status secondary to above Acute COVID-19 infection without clear evidence of COVID-19 pneumonia Right elevated hemidiaphragm, possible paralysis, unable to complete sniff test due to generalized weakness Hyponatremia of unclear etiology suspect secondary to hypovolemia and urinary retention Acute kidney injury secondary to urinary retention, status post Rosales catheter placement Rhabdomyolysis secondary to prolonged downtime History of seizure disorder History of hypothyroidism History of hypertension Former smoker Plan: The patient was seen and evaluated Chest x-ray, labs and medications reviewed Patient was unable to perform maneuvers for a sniff study Obtain arterial blood gases Obtain a D-dimer Titrate the FiO2 as tolerated We will continue to follow and make further recommendations based on his clin ical status I have personally seen and examined the patient, performed the documentation and the assessment and plan as written. Number of minutes spent on the visit: 20.
[2023-09-30 16:39] LABS: ABG PO2 59 mmHg (83-108)
[2023-09-30 16:47] LABS: Glucose,Whole Blood 239 mg/dL (70-110)
[2023-09-30 20:10] LABS: Glucose,Whole Blood 160 mg/dL (70-110)
[2023-10-01 06:16] LABS: Glucose,Whole Blood 124 mg/dL (70-110)
[2023-10-01 09:01] LABS: Basophils % (A) 0 %; Eosinophils % (A) 0 %; HCT 39.3 % (39.0-53.0); Lymphocytes # (A) 1.3 k/uL (1.0-4.8); Lymphocytes % (A) 9 %; MCV 90.9 fL (80.0-100.0); Mean Platelet Volume 9.8; Monocytes # (A) 0.7 k/uL (0-1.0); Monocytes % (A) 5 %; Neutrophils # (A) 11.8 k/uL (1.3-7.7); Neutrophils % (A) 85 %; Platelet Count 180 k/uL (150-450); RBC 4.33 m/uL (4.30-5.90); RDW 13.7 % (11.5-15.5); WBC 13.9 k/uL (3.8-10.6)
[2023-10-01 09:26] LABS: African American GFR (CKD) >90 (>60 ml/min/1.73 sqM); Anion Gap 9 mmol/L; Blood Urea Nitrogen 18 mg/dL (9-20); Calcium 8.5 mg/dL (8.4-10.2); Carbon Dioxide 29 mmol/L (22-30); Chloride 94 mmol/L (98-107); Glucose 120 mg/dL (74-99); Magnesium 1.8 mg/dL (1.6-2.3); Non-African American GFR(CKD) >90 (>60 ml/min/1.73 sqM); Potassium 3.3 mmol/L (3.5-5.1); Sodium 132 mmol/L (137-145)
[2023-10-01 10:38] LABS: ALT 40 U/L (4-49); AST 101 U/L (17-59); African American GFR (CKD) >90 (>60 ml/min/1.73 sqM); Albumin 2.9 g/dL (3.5-5.0); Alkaline Phosphatase 59 U/L (38-126); Anion Gap 4 mmol/L; Blood Urea Nitrogen 17 mg/dL (9-20); Calcium 8.5 mg/dL (8.4-10.2); Carbon Dioxide 33 mmol/L (22-30); Chloride 95 mmol/L (98-107); Glucose 118 mg/dL (74-99); LDH 268 U/L (120-246); Non-African American GFR(CKD) >90 (>60 ml/min/1.73 sqM); Potassium 3.3 mmol/L (3.5-5.1); Sodium 132 mmol/L (137-145); Total Bilirubin 0.7 mg/dL (0.2-1.3); Total Protein 5.8 g/dL (6.3-8.2)
[2023-10-01 10:44] LABS: NT-Pro-B-Type Natriuretic Pept 522 pg/mL
[2023-10-01 10:49] LABS: C Reactive Protein 24.4 mg/dL (<1.0)
[2023-10-01 11:24] LABS: Glucose,Whole Blood 135 mg/dL (70-110)
--- NOTE | 2023-10-01 11:43 | P.PN ---
Subjective Progress Note Date: 10/01/23 Principal diagnosis: Reason for follow-up is COVID-19 and pneumonia Patient is a 77-year-old male with a past medical history significant for hypertension seizure disorder hypothyroidism patient has been brought into the hospital for evaluation of generalized weakness patient was noticed to be on the bathroom floor after apparently patient fell down, patient did tested positive for COVID-19, initial chest x-ray reported negative. On today's evaluation that is 10/01/2023, Patient is afebrile patient is currently on 6 L nasal cannula oxygen and denies having any shortness of breath, the patient denies any chest pain or worsening cough, the patient denies any nausea vomiting did not have any abdominal pain and no diarrhea. Patient white count is 13.9, creatinine 0.65 Objective - Vital Signs Vital signs: Vital Signs Temp 97.6 F 09/30/23 20:00 Pulse 92 10/01/23 04:00 Resp 20 10/01/23 04:00 BP 167/72 10/01/23 04:00 Pulse Ox 96 10/01/23 07:28 FiO2 97 10/01/23 07:28 Intake & Output 09/30/23 10/01/23 10/01/23 18:59 06:59 18:59 Intake Total 120 Output Total 1700 500 Balance -1580 -500 Intake: Oral 120 Output: Urine 1700 500 Other: Voiding Method Indwelling Catheter Indwelling Catheter - Exam GENERAL DESCRIPTION: An elderly male lying in bed in no distress RESPIRATORY SYSTEM: Unlabored breathing , decreased breath sounds at bases HEART: S1 S2 regular rate and rhythm , ABDOMEN: Soft , no tenderness EXTREMITIES: No edema feet - Labs CBC & Chem 7: 10/01/23 07:13 10/01/23 07:13 Labs: Abnormal Lab Results - Last 24 Hours (Table) 09/28/23 09/30/23 09/30/23 Range/Units 01:53 11:44 16:32 WBC (3.8-10.6) k/uL Neutrophils # (1.3-7.7) k/uL ABG pH 7.47 H (7.35-7.45) ABG pO2 59 L* (83-108) mmHg ABG HCO3 31 H (21-25) mmol/L ABG Total CO2 32 H (19-24) mmol/L ABG O2 Saturation 93.0 L (94-97) % Sodium (137-145) mmol/L Potassium (3.5-5.1) mmol/L Chloride (98-107) mmol/L Carbon Dioxide (22-30) mmol/L Creatinine (0.66-1.25) mg/dL Glucose (74-99) mg/dL POC Glucose (mg/dL) 220 H (70-110) mg/dL AST (17-59) U/L Lactate Dehydrogenase (120-246) U/L Total Creatine Kinase 1036 H (30-223) u/L C-Reactive Protein (<1.0) mg/dL Total Protein (6.3-8.2) g/dL Albumin (3.5-5.0) g/dL 09/30/23 09/30/23 10/01/23 Range/Units 16:45 20:08 06:14 WBC (3.8-10.6) k/uL Neutrophils # (1.3-7.7) k/uL ABG pH (7.35-7.45) ABG pO2 (83-108) mmHg ABG HCO3 (21-25) mmol/L ABG Total CO2 (19-24) mmol/L ABG O2 Saturation (94-97) % Sodium (137-145) mmol/L Potassium (3.5-5.1) mmol/L Chloride (98-107) mmol/L Carbon Dioxide (22-30) mmol/L Creatinine (0.66-1.25) mg/dL Glucose (74-99) mg/dL POC Glucose (mg/dL) 239 H 160 H 124 H (70-110) mg/dL AST (17-59) U/L Lactate Dehydrogenase (120-246) U/L Total Creatine Kinase (30-223) u/L C-Reactive Protein (<1.0) mg/dL Total Protein (6.3-8.2) g/dL Albumin (3.5-5.0) g/dL 10/01/23 10/01/23 10/01/23 Range/Units 07:13 07:13 07:13 WBC 13.9 H (3.8-10.6) k/uL Neutrophils # 11.8 H (1.3-7.7) k/uL ABG pH (7.35-7.45) ABG pO2 (83-108) mmHg ABG HCO3 (21-25) mmol/L ABG Total CO2 (19-24) mmol/L ABG O2 Saturation (94-97) % Sodium 132 L 132 L (137-145) mmol/L Potassium 3.3 L 3.3 L (3.5-5.1) mmol/L Chloride 95 L 94 L (98-107) mmol/L Carbon Dioxide 33 H (22-30) mmol/L Creatinine 0.65 L (0.66-1.25) mg/dL Glucose 118 H 120 H (74-99) mg/dL POC Glucose (mg/dL) (70-110) mg/dL AST 101 H (17-59) U/L Lactate Dehydrogenase 268 H (120-246) U/L Total Creatine Kinase (30-223) u/L C-Reactive Protein 24.4 H (<1.0) mg/dL Total Protein 5.8 L (6.3-8.2) g/dL Albumin 2.9 L (3.5-5.0) g/dL 10/01/23 Range/Units 11:22 WBC (3.8-10.6) k/uL Neutrophils # (1.3-7.7) k/uL ABG pH (7.35-7.45) ABG pO2 (83-108) mmHg ABG HCO3 (21-25) mmol/L ABG Total CO2 (19-24) mmol/L ABG O2 Saturation (94-97) % Sodium (137-145) mmol/L Potassium (3.5-5.1) mmol/L Chloride (98-107) mmol/L Carbon Dioxide (22-30) mmol/L Creatinine (0.66-1.25) mg/dL Glucose (74-99) mg/dL POC Glucose (mg/dL) 135 H (70-110) mg/dL AST (17-59) U/L Lactate Dehydrogenase (120-246) U/L Total Creatine Kinase (30-223) u/L C-Reactive Protein (<1.0) mg/dL Total Protein (6.3-8.2) g/dL Albumin (3.5-5.0) g/dL Assessment and Plan (1) COVID-19 Current Visit: Yes Status: Acute Code(s): U07.1 - COVID-19 SNOMED Code(s): 935582477 (2) Sepsis Current Visit: Yes Status: Acute Code(s): A41.9 - SEPSIS, UNSPECIFIED ORGANISM SNOMED Code(s): 44265456 (3) Pneumonia Current Visit: Yes Status: Acute Code(s): J18.9 - PNEUMONIA, UNSPECIFIED ORGANISM SNOMED Code(s): 983198819 (4) Penicillin allergy Current Visit: Yes Status: Acute Code(s): Z88.0 - ALLERGY STATUS TO PENICILLIN SNOMED Code(s): 94228700 Plan: 1patient presented to hospital generalized weakness and did have a fall source likely multifactorial. He tested positive for COVID-19 however initial chest x- ray was negative for acute infiltrate treatment for COVID will be mostly supportive 2-patient did have chest x-ray with right lower lobe infiltrate concerning for possible pneumonia 3-patient did have minimal improvement in his clinical condition requiring less oxygen, patient to continue with cefepime and try to obtain a sputum and monitor clinical course closely Dictation was produced using [employer] dictation software. please excuse any grammatical, word or spelling errors. Time with Patient: Less than 30
--- NOTE | 2023-10-01 13:02 | P.PN ---
Subjective Progress Note Date: 10/01/23 patient is a 77-year-old gentleman past medical history significant for hypothyroidism, hypertension who presented to the ER for generalized weakness and fall. Patient was brought in by family members, apparently patient was trying to use the restroom when he lost all his strength and slumped to the ground. There was no complaint of any loss of consciousness. No complaint of weakness of any extremity. Family did not notice any slurred speech or facial droop. There was no complaint of fever or chills. No complaint of nausea, vomiting, abdominal pain. Patient's family tried to help him to get up but they were unable to lift him. They called EMS and they brought him to ER. Initial lab work done in the ER showed WBC 10.5, hemoglobin 15.2, platelet count 165, sodium 118, potassium 4.1, BUN 24, creatinine 1.26, plasma lactate 4.1, troponin 0.012 UA negative for any infection EKG done in the ER showed heart rate of 75, no ST segment elevation or depression seen, no T-wave inversions seen. Chest x-ray done in the ER no acute cardiopulmonary process CT head done showed no acute intracranial process Patient admitted to internal medicine service 09/29. Patient seen and examined. COVID-19 came back positive. Currently on 4 L of oxygen. Sodium this morning is 121. Still complain lethargy and weakness. Patient also diagnosed with COVID 09/30. Patient seen and examined. Blood work done this morning showed WBC 14.9, hemoglobin 12.9, platelet count 146, sodium 126, potassium 3.9, BUN 15, creatinine 0.68. States he feels much better. Shortness of breath is improved. 10/01. Patient seen and examined. Still on 15 L of oxygen via nonrebreather. States he feels better. Sodium level improved to 132, potassium 3.3, BUN 18, creatinine 0.65. Lethargy has improved. REVIEW OF SYSTEMS: CONSTITUTIONAL: No fever, no malaise,. CARDIOVASCULAR: No chest pain, no palpitations, no syncope. PULMONARY: No shortness of breath, no cough, GASTROINTESTINAL: No diarrhea, no nausea, no vomiting, no abdominal pain. NEUROLOGICAL: No headaches, no weakness, PHYSICAL EXAMINATION: GENERAL: The patient is alert and oriented x3, not in any acute distress. Well developed, well nourished. HEENT: Pupils are round and equally reacting to light. EOMI. No scleral icterus. No conjunctival pallor. Normocephalic, atraumatic. No pharyngeal erythema. No thyromegaly. CARDIOVASCULAR: S1 and S2 present. No murmurs, rubs, or gallops. PULMONARY: Coarse breath sound bilaterally, no wheeze ABDOMEN: Soft, nontender, nondistended, normoactive bowel sounds. No palpable organomegaly. MUSCULOSKELETAL: 1+ pitting edema lower extremities bilaterally EXTREMITIES: No cyanosis, clubbing, or pedal edema. NEUROLOGICAL: Gross neurological examination did not reveal any focal deficits. SKIN: No rashes. Assessment and plan Hyponatremia COVID-19 Acute hypoxic respiratory failure Generalized weakness Rhabdomyolysis Fall Urinary retention Hypothyroidism Hypertension Monitor vital signs Monitor CBC Continue telemetry monitoring Strict I's and O's Daily weights Monitor BMP COVID-19 PCR was positive Continue Flomax. Avoid nephrotoxins. Continue Decadron Continue cefepime ID following Nephrology following, patient received tolvaptan on 09/29 Urology following PT and OT consulted Labs and medication were reviewed.. Continue same treatment. Continue with symptomatic treatment. Resume home medication. Monitor labs and vitals. DVT and GI prophylaxis. Further recommendations as per clinical course of the patient Dictation was produced using [employer] dictation software. please excuse any grammatical, word or spelling errors. Objective - Vital Signs Vital signs: Vital Signs Temp 97.6 F 09/30/23 20:00 Pulse 92 10/01/23 04:00 Resp 20 10/01/23 04:00 BP 167/72 10/01/23 04:00 Pulse Ox 96 10/01/23 07:28 FiO2 97 10/01/23 07:28 Intake & Output 09/30/23 10/01/23 10/01/23 18:59 06:59 18:59 Intake Total 120 Output Total 1700 500 Balance -1580 -500 Intake: Oral 120 Output: Urine 1700 500 Other: Voiding Method Indwelling Catheter Indwelling Catheter - Labs CBC & Chem 7: 10/01/23 07:13 10/01/23 07:13 Labs: Abnormal Lab Results - Last 24 Hours (Table) 09/28/23 09/30/23 09/30/23 Range/Units 01:53 08:18 11:44 WBC (3.8-10.6) k/uL Neutrophils # (1.3-7.7) k/uL ABG pH (7.35-7.45) ABG pO2 (83-108) mmHg ABG HCO3 (21-25) mmol/L ABG Total CO2 (19-24) mmol/L ABG O2 Saturation (94-97) % Sodium 126 L (137-145) mmol/L Potassium (3.5-5.1) mmol/L Chloride 94 L (98-107) mmol/L Creatinine (0.66-1.25) mg/dL Glucose 152 H (74-99) mg/dL POC Glucose (mg/dL) 220 H (70-110) mg/dL Calcium 8.1 L (8.4-10.2) mg/dL AST 148 H (17-59) U/L Creatine Kinase 2283 H* (55-170) U/L Total Creatine Kinase 1036 H (30-223) u/L Total Protein 5.8 L (6.3-8.2) g/dL Albumin 2.8 L (3.5-5.0) g/dL 09/30/23 09/30/23 09/30/23 Range/Units 16:32 16:45 20:08 WBC (3.8-10.6) k/uL Neutrophils # (1.3-7.7) k/uL ABG pH 7.47 H (7.35-7.45) ABG pO2 59 L* (83-108) mmHg ABG HCO3 31 H (21-25) mmol/L ABG Total CO2 32 H (19-24) mmol/L ABG O2 Saturation 93.0 L (94-97) % Sodium (137-145) mmol/L Potassium (3.5-5.1) mmol/L Chloride (98-107) mmol/L Creatinine (0.66-1.25) mg/dL Glucose (74-99) mg/dL POC Glucose (mg/dL) 239 H 160 H (70-110) mg/dL Calcium (8.4-10.2) mg/dL AST (17-59) U/L Creatine Kinase (55-170) U/L Total Creatine Kinase (30-223) u/L Total Protein (6.3-8.2) g/dL Albumin (3.5-5.0) g/dL 10/01/23 10/01/23 10/01/23 Range/Units 06:14 07:13 07:13 WBC 13.9 H (3.8-10.6) k/uL Neutrophils # 11.8 H (1.3-7.7) k/uL ABG pH (7.35-7.45) ABG pO2 (83-108) mmHg ABG HCO3 (21-25) mmol/L ABG Total CO2 (19-24) mmol/L ABG O2 Saturation (94-97) % Sodium 132 L (137-145) mmol/L Potassium 3.3 L (3.5-5.1) mmol/L Chloride 94 L (98-107) mmol/L Creatinine 0.65 L (0.66-1.25) mg/dL Glucose 120 H (74-99) mg/dL POC Glucose (mg/dL) 124 H (70-110) mg/dL Calcium (8.4-10.2) mg/dL AST (17-59) U/L Creatine Kinase (55-170) U/L Total Creatine Kinase (30-223) u/L Total Protein (6.3-8.2) g/dL Albumin (3.5-5.0) g/dL
[2023-10-01] MEDS ORDERED: ZINC OXIDE PASTE (Z-GUARD) 1 APPLIC TOPICAL PRN (13:59)
--- NOTE | 2023-10-01 14:57 | P.PN ---
Subjective Progress Note Date: 10/01/23 Principal diagnosis: Generalized weakness secondary to COVID-19 infection and hyponatremia with possible diaphragm paralysis and acute hypoxic respiratory failure This is a 77-year-old male patient with a history of hypertension, seizure disorder, thyroid disorder, former smoker. On September 27, 2023 the patient had gotten up to go the bathroom and slumped onto the ground. He had been reportedly laying on the ground for several hours by family were attempting to get in helping him get up but he was unable to support himself. He also had trouble with urinary incontinence. EMS was called and he was brought here for evaluation. CT scan of the brain revealed no acute intracranial hemorrhage, midline shift or mass effect. EKG revealed sinus rhythm with no significant ST or T wave abnormalities. White count 14.9. Hemoglobin 12.9. Platelets 146. Sodium 126. Potassium 3.9. Bicarb 26. BUN 15. Creatinine 0.68. Glucose 152. AST 148. ALT 43. Creatinine kinase 2283. He did test positive for COVID-19 infection. His initial sodium level was 118. BUN of 24 and a creatinine of 1.26. He had been seen by nephrology, urology and infectious disease. A chest x -ray was done today September 30, 2023 that revealed an elevated right hemidiaphragm and we are consulted for the same. He was sent for a sniff test however the patient was unable to perform the appropriate maneuvers due to overall condition. He is seen on consultation on the selective care unit. He is currently resting in bed. Difficult to arouse but arousable. He is on a nonrebreather mask with O2 saturation of 90%. Currently afebrile. Hemodynamically stable. He has been initiated on Decadron. Antibiotics in the form of cefepime. Saline at 50 MLS per hour. Patient was evaluated today on 10/01/2023, more awake today, more responsive, seems to be more alert, and remains on a nonrebreather mask which I have recommended to transition to high flow nasal cannula. Patient did transition to 10 L high flow nasal cannula and O2 saturation was ranging between 92 up to 96% definitely better today compared to the last couple of days. Still planning to repeat his sniff test to evaluate for right hemidiaphragm paralysis. Procalcitonin level came back elevated at 0.43, patient remains on antibiotics for presumptive right lower lobe pneumonia. WBC count today 13.9 hemoglobin 13.0.Basic metabolic profile is relatively normal. Objective - Vital Signs Vital signs: Vital Signs Temp 98.4 F 10/01/23 12:00 Pulse 109 H 10/01/23 12:00 Resp 20 10/01/23 12:00 BP 129/65 10/01/23 12:00 Pulse Ox 92 L 10/01/23 12:00 FiO2 100 09/30/23 12:36 Intake & Output 09/30/23 10/01/23 10/01/23 18:59 06:59 18:59 Intake Total 120 118 Output Total 1700 500 Balance -1580 -500 118 Intake: Oral 120 118 Output: Urine 1700 500 Other: Voiding Method Indwelling Catheter Indwelling Catheter Indwelling Catheter - Exam GENERAL EXAM: Revealed 77-year-old white male obese, more alert, awake, and follows simple instructions. HEAD: Normocephalic. EYES: Normal reaction of pupils, equal size. NOSE: Clear with pink turbinates. THROAT: No erythema or exudates. NECK: No masses, no JVD. CHEST: No chest wall deformity. LUNGS: Mostly diminished breath sounds at the right base, with dullness. CVS: S1 and S2 normal with no audible murmur, regular rhythm. ABDOMEN: No hepatosplenomegaly, normal bowel sounds, no guarding or rigidity. SKIN: No rashes CENTRAL NERVOUS SYSTEM: Alert and oriented x 3 no gross focal deficits. EXTREMITIES: There is no peripheral edema. No clubbing, no cyanosis. Peripheral pulses are intact. - Labs CBC & Chem 7: 10/01/23 07:13 10/01/23 07:13 Labs: Abnormal Lab Results - Last 24 Hours (Table) 09/30/23 09/30/23 09/30/23 Range/Units 16:32 16:45 20:08 WBC (3.8-10.6) k/uL Neutrophils # (1.3-7.7) k/uL ABG pH 7.47 H (7.35-7.45) ABG pO2 59 L* (83-108) mmHg ABG HCO3 31 H (21-25) mmol/L ABG Total CO2 32 H (19-24) mmol/L ABG O2 Saturation 93.0 L (94-97) % Sodium (137-145) mmol/L Potassium (3.5-5.1) mmol/L Chloride (98-107) mmol/L Carbon Dioxide (22-30) mmol/L Creatinine (0.66-1.25) mg/dL Glucose (74-99) mg/dL POC Glucose (mg/dL) 239 H 160 H (70-110) mg/dL AST (17-59) U/L Lactate Dehydrogenase (120-246) U/L C-Reactive Protein (<1.0) mg/dL Total Protein (6.3-8.2) g/dL Albumin (3.5-5.0) g/dL 10/01/23 10/01/23 10/01/23 Range/Units 06:14 07:13 07:13 WBC 13.9 H (3.8-10.6) k/uL Neutrophils # 11.8 H (1.3-7.7) k/uL ABG pH (7.35-7.45) ABG pO2 (83-108) mmHg ABG HCO3 (21-25) mmol/L ABG Total CO2 (19-24) mmol/L ABG O2 Saturation (94-97) % Sodium 132 L (137-145) mmol/L Potassium 3.3 L (3.5-5.1) mmol/L Chloride 95 L (98-107) mmol/L Carbon Dioxide 33 H (22-30) mmol/L Creatinine (0.66-1.25) mg/dL Glucose 118 H (74-99) mg/dL POC Glucose (mg/dL) 124 H (70-110) mg/dL AST 101 H (17-59) U/L Lactate Dehydrogenase 268 H (120-246) U/L C-Reactive Protein 24.4 H (<1.0) mg/dL Total Protein 5.8 L (6.3-8.2) g/dL Albumin 2.9 L (3.5-5.0) g/dL 10/01/23 10/01/23 Range/Units 07:13 11:22 WBC (3.8-10.6) k/uL Neutrophils # (1.3-7.7) k/uL ABG pH (7.35-7.45) ABG pO2 (83-108) mmHg ABG HCO3 (21-25) mmol/L ABG Total CO2 (19-24) mmol/L ABG O2 Saturation (94-97) % Sodium 132 L (137-145) mmol/L Potassium 3.3 L (3.5-5.1) mmol/L Chloride 94 L (98-107) mmol/L Carbon Dioxide (22-30) mmol/L Creatinine 0.65 L (0.66-1.25) mg/dL Glucose 120 H (74-99) mg/dL POC Glucose (mg/dL) 135 H (70-110) mg/dL AST (17-59) U/L Lactate Dehydrogenase (120-246) U/L C-Reactive Protein (<1.0) mg/dL Total Protein (6.3-8.2) g/dL Albumin (3.5-5.0) g/dL Assessment and Plan Assessment: Impression: Acute hypoxic respiratory failure, secondary to right lower lobe atelectasis/consolidation, possible community-acquired pneumonia. Generalized weakness and fall suspect secondary to hyponatremia and COVID-19 infection Altered mental status secondary to above Acute COVID-19 infection without clear evidence of COVID-19 pneumonia Right elevated hemidiaphragm, possible paralysis, unable to complete sniff test due to generalized weakness Hyponatremia of unclear etiology suspect secondary to hypovolemia and urinary retention Acute kidney injury secondary to urinary retention, status post Rosales catheter placement Rhabdomyolysis secondary to prolonged downtime History of seizure disorder History of hypothyroidism History of hypertension Former smoker Recommendation: Continue antibiotics Continue high flow nasal cannula Consider sniff test on Tuesday His D-dimer came back normal no need for workup for pulmonary embolism. Procalcitonin level is elevated hence would continue antibiotics for now. Continue COVID-19 cocktail. Continue to monitor electrolytes specially sodium Will continue to follow Time with Patient: Less than 30
--- NOTE | 2023-10-01 15:07 | P.PN ---
Subjective Progress Note Date: 10/01/23 Patient is seen in follow-up for hyponatremia. Sodium level 126 this morning. Has Rosales catheter. Nonoliguric. Receiving IV fluids. CK levels trending down. Vital signs are stable. General: No acute distress. HEENT: Head exam is unremarkable. LUNGS: No audible rhonchi or wheezes. HEART: Rate and Rhythm are regular. ABDOMEN: Obese, nontender. EXTREMITITES: No edema. Objective - Vital Signs Vital signs: Vital Signs Temp 97.6 F 09/30/23 20:00 Pulse 92 10/01/23 04:00 Resp 20 10/01/23 04:00 BP 167/72 10/01/23 04:00 Pulse Ox 96 10/01/23 07:28 FiO2 97 10/01/23 07:28 Intake & Output 09/30/23 10/01/23 10/01/23 18:59 06:59 18:59 Intake Total 120 Output Total 1700 500 Balance -1580 -500 Intake: Oral 120 Output: Urine 1700 500 Other: Voiding Method Indwelling Catheter Indwelling Catheter - Labs CBC & Chem 7: 10/01/23 07:13 10/01/23 07:13 Labs: Abnormal Lab Results - Last 24 Hours (Table) 09/28/23 09/30/23 09/30/23 Range/Units 01:53 11:44 16:32 WBC (3.8-10.6) k/uL Neutrophils # (1.3-7.7) k/uL ABG pH 7.47 H (7.35-7.45) ABG pO2 59 L* (83-108) mmHg ABG HCO3 31 H (21-25) mmol/L ABG Total CO2 32 H (19-24) mmol/L ABG O2 Saturation 93.0 L (94-97) % Sodium (137-145) mmol/L Potassium (3.5-5.1) mmol/L Chloride (98-107) mmol/L Carbon Dioxide (22-30) mmol/L Creatinine (0.66-1.25) mg/dL Glucose (74-99) mg/dL POC Glucose (mg/dL) 220 H (70-110) mg/dL AST (17-59) U/L Lactate Dehydrogenase (120-246) U/L Total Creatine Kinase 1036 H (30-223) u/L C-Reactive Protein (<1.0) mg/dL Total Protein (6.3-8.2) g/dL Albumin (3.5-5.0) g/dL 09/30/23 09/30/23 10/01/23 Range/Units 16:45 20:08 06:14 WBC (3.8-10.6) k/uL Neutrophils # (1.3-7.7) k/uL ABG pH (7.35-7.45) ABG pO2 (83-108) mmHg ABG HCO3 (21-25) mmol/L ABG Total CO2 (19-24) mmol/L ABG O2 Saturation (94-97) % Sodium (137-145) mmol/L Potassium (3.5-5.1) mmol/L Chloride (98-107) mmol/L Carbon Dioxide (22-30) mmol/L Creatinine (0.66-1.25) mg/dL Glucose (74-99) mg/dL POC Glucose (mg/dL) 239 H 160 H 124 H (70-110) mg/dL AST (17-59) U/L Lactate Dehydrogenase (120-246) U/L Total Creatine Kinase (30-223) u/L C-Reactive Protein (<1.0) mg/dL Total Protein (6.3-8.2) g/dL Albumin (3.5-5.0) g/dL 10/01/23 10/01/23 10/01/23 Range/Units 07:13 07:13 07:13 WBC 13.9 H (3.8-10.6) k/uL Neutrophils # 11.8 H (1.3-7.7) k/uL ABG pH (7.35-7.45) ABG pO2 (83-108) mmHg ABG HCO3 (21-25) mmol/L ABG Total CO2 (19-24) mmol/L ABG O2 Saturation (94-97) % Sodium 132 L 132 L (137-145) mmol/L Potassium 3.3 L 3.3 L (3.5-5.1) mmol/L Chloride 95 L 94 L (98-107) mmol/L Carbon Dioxide 33 H (22-30) mmol/L Creatinine 0.65 L (0.66-1.25) mg/dL Glucose 118 H 120 H (74-99) mg/dL POC Glucose (mg/dL) (70-110) mg/dL AST 101 H (17-59) U/L Lactate Dehydrogenase 268 H (120-246) U/L Total Creatine Kinase (30-223) u/L C-Reactive Protein 24.4 H (<1.0) mg/dL Total Protein 5.8 L (6.3-8.2) g/dL Albumin 2.9 L (3.5-5.0) g/dL Assessment and Plan Plan: Assessment: 1. Hyponatremia. Component of hypovolemia as well as urinary retention. Sodium level 118 on admission -132 today. TSH normal. Urine osmolality 543. Urine sodium less than 20. TSH normal. 2. Acute kidney injury secondary to urinary retention. Creatinine 1.26 on admission and resolved at 0.89. No proteinuria on UA. No hydronephrosis noted on kidney ultrasound. 3. Urinary retention status post Rosales catheter placement. On Flomax. Urology following. 4. Benign hypertension. Controlled. 5. Hypokalemia from poor intake and postobstructive diuresis. Magnesium normal. 6. Rhabdomyolysis secondary to fall. CK level trending down. Plan: Maintain IV fluids due to rhabdomyolysis - rate to 50 cc an hour. Status post Samsca and IV Lasix this admission. Avoid nephrotoxins. Continue to monitor renal function and urine output. Repeat labs in the morning.
[2023-10-01] MEDS: POTASSIUM BICARBONATE/CIT AC 20 MEQ TABLET.EFF PO ONE (16:28)
[2023-10-01 17:15] LABS: Glucose,Whole Blood 157 mg/dL (70-110)
[2023-10-01 20:28] LABS: Glucose,Whole Blood 137 mg/dL (70-110)
[2023-10-02 06:24] LABS: Glucose,Whole Blood 111 mg/dL (70-110)
[2023-10-02 11:33] LABS: Glucose,Whole Blood 120 mg/dL (70-110)
--- NOTE | 2023-10-02 11:51 | P.PN ---
Subjective Progress Note Date: 10/02/23 Patient is seen in follow-up for hyponatremia. Patient states that he is feeling much better than when he first came in and still has a Rosales maintaining his urine output. He was able to advance his diet yesterday and tolerated it well without any issues or nausea and vomiting. Vital signs are stable. General: No acute distress. HEENT: Head exam is unremarkable. LUNGS: No audible rhonchi or wheezes. HEART: Rate and Rhythm are regular. ABDOMEN: Obese, nontender. EXTREMITITES: No edema. Objective - Vital Signs Vital signs: Vital Signs Temp 98.3 F 10/02/23 08:00 Pulse 81 10/02/23 08:00 Resp 18 10/02/23 08:00 BP 167/94 10/02/23 08:00 Pulse Ox 92 L 10/02/23 10:00 FiO2 100 09/30/23 12:36 Intake & Output 10/01/23 10/02/23 10/02/23 18:59 06:59 18:59 Intake Total 118 Output Total 600 1070 375 Balance -482 -1070 -375 Intake: Oral 118 Output: Urine 600 1070 375 Other: Voiding Method Indwelling Catheter Indwelling Catheter Indwelling Catheter - Labs CBC & Chem 7: 10/01/23 07:13 10/01/23 07:13 Labs: Abnormal Lab Results - Last 24 Hours (Table) 10/01/23 10/01/23 10/01/23 Range/Units 07:13 16:38 20:26 POC Glucose (mg/dL) 157 H 137 H (70-110) mg/dL Ferritin 912.0 H (22.0-322.0) ng/mL 10/02/23 10/02/23 Range/Units 06:22 11:31 POC Glucose (mg/dL) 111 H 120 H (70-110) mg/dL Ferritin (22.0-322.0) ng/mL Assessment and Plan Plan: Assessment: 1. Hyponatremia. Component of hypovolemia as well as urinary retention. Sodium level 118 on admission -132 yesterday. TSH normal. Urine osmolality 543. Urine sodium less than 20. TSH normal. 2. Acute kidney injury secondary to urinary retention. Creatinine 1.26 on admission and resolved at 0.89. No proteinuria on UA. No hydronephrosis noted on kidney ultrasound. 3. Urinary retention status post Rosales catheter placement. On Flomax. Urology following. 4. Benign hypertension. Controlled. 5. Hypokalemia from poor intake and postobstructive diuresis. Magnesium normal. 6. Rhabdomyolysis secondary to fall. CK level trending down. Plan: Tolerating diet, maintain off IV fluids. Avoid nephrotoxins. Continue to monitor renal function and urine output. Continue potassium replacement as needed. Consider trial void, Rosales management per urology Clear for discharge from a nephrology standpoint.
[2023-10-02 12:02] LABS: Basophils % (A) 0 %; Eosinophils % (A) 0 %; HGB 12.3 gm/dL (13.0-17.5); Lymphocytes # (A) 0.8 k/uL (1.0-4.8); Lymphocytes % (A) 8 %; MCH 30.3 pg (25.0-35.0); MCHC 33.3 g/dL (31.0-37.0); MCV 90.8 fL (80.0-100.0); Mean Platelet Volume 8.9; Monocytes # (A) 0.7 k/uL (0-1.0); Monocytes % (A) 7 %; Neutrophils # (A) 8.5 k/uL (1.3-7.7); Neutrophils % (A) 83 %; Platelet Count 180 k/uL (150-450); RBC 4.08 m/uL (4.30-5.90); RDW 13.4 % (11.5-15.5); WBC 10.2 k/uL (3.8-10.6)
[2023-10-02 12:15] LABS: ALT 41 U/L (4-49); AST 94 U/L (17-59); African American GFR (CKD) >90 (>60 ml/min/1.73 sqM); Albumin 2.6 g/dL (3.5-5.0); Alkaline Phosphatase 50 U/L (38-126); Anion Gap 5 mmol/L; Blood Urea Nitrogen 14 mg/dL (9-20); Calcium 8.4 mg/dL (8.4-10.2); Carbon Dioxide 27 mmol/L (22-30); Chloride 98 mmol/L (98-107); Glucose 118 mg/dL (74-99); Non-African American GFR(CKD) >90 (>60 ml/min/1.73 sqM); Potassium 3.1 mmol/L (3.5-5.1); Sodium 130 mmol/L (137-145); Total Bilirubin 0.7 mg/dL (0.2-1.3); Total Protein 5.3 g/dL (6.3-8.2)
--- NOTE | 2023-10-02 12:31 | P.PN ---
Subjective Progress Note Date: 10/02/23 patient is a 77-year-old gentleman past medical history significant for hypothyroidism, hypertension who presented to the ER for generalized weakness and fall. Patient was brought in by family members, apparently patient was trying to use the restroom when he lost all his strength and slumped to the ground. There was no complaint of any loss of consciousness. No complaint of weakness of any extremity. Family did not notice any slurred speech or facial droop. There was no complaint of fever or chills. No complaint of nausea, vomiting, abdominal pain. Patient's family tried to help him to get up but they were unable to lift him. They called EMS and they brought him to ER. Initial lab work done in the ER showed WBC 10.5, hemoglobin 15.2, platelet count 165, sodium 118, potassium 4.1, BUN 24, creatinine 1.26, plasma lactate 4.1, troponin 0.012 UA negative for any infection EKG done in the ER showed heart rate of 75, no ST segment elevation or depression seen, no T-wave inversions seen. Chest x-ray done in the ER no acute cardiopulmonary process CT head done showed no acute intracranial process Patient admitted to internal medicine service 09/29. Patient seen and examined. COVID-19 came back positive. Currently on 4 L of oxygen. Sodium this morning is 121. Still complain lethargy and weakness. Patient also diagnosed with COVID 09/30. Patient seen and examined. Blood work done this morning showed WBC 14.9, hemoglobin 12.9, platelet count 146, sodium 126, potassium 3.9, BUN 15, creatinine 0.68. States he feels much better. Shortness of breath is improved. 10/01. Patient seen and examined. Still on 15 L of oxygen via nonrebreather. States he feels better. Sodium level improved to 132, potassium 3.3, BUN 18, creatinine 0.65. Lethargy has improved. 10/02. Patient seen and examined. Currently on 8 L of oxygen via high flow nasal cannula. States he feels much better, breathing is improved, pulmonology recommended sniff test to look for right diaphragm paralysis REVIEW OF SYSTEMS: CONSTITUTIONAL: No fever, no malaise,. CARDIOVASCULAR: No chest pain, no palpitations, no syncope. PULMONARY: No shortness of breath, no cough, GASTROINTESTINAL: No diarrhea, no nausea, no vomiting, no abdominal pain. NEUROLOGICAL: No headaches, no weakness, PHYSICAL EXAMINATION: GENERAL: The patient is alert and oriented x3, not in any acute distress. Well developed, well nourished. HEENT: Pupils are round and equally reacting to light. EOMI. No scleral icterus. No conjunctival pallor. Normocephalic, atraumatic. No pharyngeal erythema. No thyromegaly. CARDIOVASCULAR: S1 and S2 present. No murmurs, rubs, or gallops. PULMONARY: Coarse breath sound bilaterally, no wheeze ABDOMEN: Soft, nontender, nondistended, normoactive bowel sounds. No palpable organomegaly. MUSCULOSKELETAL: 1+ pitting edema lower extremities bilaterally EXTREMITIES: No cyanosis, clubbing, or pedal edema. NEUROLOGICAL: Gross neurological examination did not reveal any focal deficits. SKIN: No rashes. Assessment and plan Hyponatremia COVID-19 Acute hypoxic respiratory failure Generalized weakness Rhabdomyolysis Fall Urinary retention Hypothyroidism Hypertension Monitor vital signs Monitor CBC Continue telemetry monitoring Strict I's and O's Daily weights Monitor BMP COVID-19 PCR was positive Continue Flomax. Avoid nephrotoxins. Continue Decadron Continue cefepime ID following Nephrology following, patient received tolvaptan on 09/29 Urology following Pulmonology following, ordered sniff test PT and OT consulted Labs and medication were reviewed.. Continue same treatment. Continue with symptomatic treatment. Resume home medication. Monitor labs and vitals. DVT and GI prophylaxis. Further recommendations as per clinical course of the patient Dictation was produced using [employer] dictation software. please excuse any grammatical, word or spelling errors. Objective - Vital Signs Vital signs: Vital Signs Temp 99.6 F 10/01/23 20:00 Pulse 86 10/02/23 04:00 Resp 18 10/02/23 04:00 BP 173/74 10/02/23 04:00 Pulse Ox 90 L 10/02/23 07:44 FiO2 100 09/30/23 12:36 Intake & Output 10/01/23 10/02/23 10/02/23 18:59 06:59 18:59 Intake Total 118 Output Total 600 1070 375 Balance -482 1070 -375 Intake: Oral 118 Output: Urine 600 1070 375 Other: Voiding Method Indwelling Catheter Indwelling Catheter - Labs CBC & Chem 7: 10/02/23 11:32 10/02/23 11:32 Labs: Abnormal Lab Results - Last 24 Hours (Table) 10/01/23 10/01/23 10/01/23 Range/Units 07:13 11:22 16:38 Sodium 132 L (137-145) mmol/L Potassium 3.3 L (3.5-5.1) mmol/L Chloride 95 L (98-107) mmol/L Carbon Dioxide 33 H (22-30) mmol/L Glucose 118 H (74-99) mg/dL POC Glucose (mg/dL) 135 H 157 H (70-110) mg/dL Ferritin 912.0 H (22.0-322.0) ng/mL AST 101 H (17-59) U/L Lactate Dehydrogenase 268 H (120-246) U/L C-Reactive Protein 24.4 H (<1.0) mg/dL Total Protein 5.8 L (6.3-8.2) g/dL Albumin 2.9 L (3.5-5.0) g/dL 10/01/23 10/02/23 Range/Units 20:26 06:22 Sodium (137-145) mmol/L Potassium (3.5-5.1) mmol/L Chloride (98-107) mmol/L Carbon Dioxide (22-30) mmol/L Glucose (74-99) mg/dL POC Glucose (mg/dL) 137 H 111 H (70-110) mg/dL Ferritin (22.0-322.0) ng/mL AST (17-59) U/L Lactate Dehydrogenase (120-246) U/L C-Reactive Protein (<1.0) mg/dL Total Protein (6.3-8.2) g/dL Albumin (3.5-5.0) g/dL
[2023-10-02] MEDS ORDERED: Potassium Replacement Protocol 1 EACH MISC MISCELLANE PRN (12:48)
[2023-10-02] MEDS: POTASSIUM BICARBONATE/CIT AC 20 MEQ TABLET.EFF NG-TUBE SCH (14:31)
--- NOTE | 2023-10-02 14:33 | P.PN ---
Subjective Progress Note Date: 10/02/23 Principal diagnosis: Generalized weakness secondary to COVID-19 infection and hyponatremia with possible diaphragm paralysis and acute hypoxic respiratory failure This is a 77-year-old male patient with a history of hypertension, seizure disorder, thyroid disorder, former smoker. On September 27, 2023 the patient had gotten up to go the bathroom and slumped onto the ground. He had been reportedly laying on the ground for several hours by family were attempting to get in helping him get up but he was unable to support himself. He also had trouble with urinary incontinence. EMS was called and he was brought here for evaluation. CT scan of the brain revealed no acute intracranial hemorrhage, midline shift or mass effect. EKG revealed sinus rhythm with no significant ST or T wave abnormalities. White count 14.9. Hemoglobin 12.9. Platelets 146. Sodium 126. Potassium 3.9. Bicarb 26. BUN 15. Creatinine 0.68. Glucose 152. AST 148. ALT 43. Creatinine kinase 2283. He did test positive for COVID-19 infection. His initial sodium level was 118. BUN of 24 and a creatinine of 1.26. He had been seen by nephrology, urology and infectious disease. A chest x -ray was done today September 30, 2023 that revealed an elevated right hemidiaphragm and we are consulted for the same. He was sent for a sniff test however the patient was unable to perform the appropriate maneuvers due to overall condition. He is seen on consultation on the selective care unit. He is currently resting in bed. Difficult to arouse but arousable. He is on a nonrebreather mask with O2 saturation of 90%. Currently afebrile. Hemodynamically stable. He has been initiated on Decadron. Antibiotics in the form of cefepime. Saline at 50 MLS per hour. Patient was evaluated today on 10/01/2023, more awake today, more responsive, seems to be more alert, and remains on a nonrebreather mask which I have recommended to transition to high flow nasal cannula. Patient did transition to 10 L high flow nasal cannula and O2 saturation was ranging between 92 up to 96% definitely better today compared to the last couple of days. Still planning to repeat his sniff test to evaluate for right hemidiaphragm paralysis. Procalcitonin level came back elevated at 0.43, patient remains on antibiotics for presumptive right lower lobe pneumonia. WBC count today 13.9 hemoglobin 13.0.Basic metabolic profile is relatively normal. Reevaluated today on 10/02/2023, patient is on 10 L high flow nasal cannula, doing better, breathing easier, O2 saturation is in the low 90s, patient continu es to have diminished breath sounds at the right base, and I believe the patient has right hemidiaphragm paralysis with right lower lobe atelectasis, possible underlying pneumonia, but I feel clinically this is not the picture. At any rate the patient is supposed to have a sniff test tomorrow, may even have to consider a CT of the chest to evaluate the right lower lobe further. Based on the sniff test, further recommendations will follow. In the meantime patient is gradually improving, feeling better, breathing easier and definitely his neurological status is significantly improved now compared to how he was few days ago WBC count is 10.2 hemoglobin is 12.3, sodium is up to 130, potassium 3.1 renal profile is normal procalcitonin level on this patient was 0.43, hence he was empirically placed on antibiotics for presumptive right lower lobe pneumonia Objective - Vital Signs Vital signs: Vital Signs Temp 98.3 F 10/02/23 08:00 Pulse 74 10/02/23 12:00 Resp 18 10/02/23 12:00 BP 159/74 10/02/23 12:00 Pulse Ox 95 10/02/23 12:00 FiO2 100 09/30/23 12:36 Intake & Output 10/01/23 10/02/23 10/02/23 18:59 06:59 18:59 Intake Total 118 Output Total 600 1070 975 Balance -482 -1070 -975 Intake: Oral 118 Output: Urine 600 1070 975 Other: Voiding Method Indwelling Catheter Indwelling Catheter Indwelling Catheter - Exam GENERAL EXAM: Revealed 77-year-old white male obese, awake alert, responsive, not in distress. On 10 L high flow nasal cannula HEAD: Normocephalic. EYES: Normal reaction of pupils, equal size. NOSE: Clear with pink turbinates. THROAT: No erythema or exudates. NECK: No masses, no JVD. CHEST: No chest wall deformity. LUNGS: Mostly diminished breath sounds at the right base, with dullness. CVS: S1 and S2 normal with no audible murmur, regular rhythm. ABDOMEN: No hepatosplenomegaly, normal bowel sounds, no guarding or rigidity. SKIN: No rashes CENTRAL NERVOUS SYSTEM: Alert and oriented x 3 no gross focal deficits. EXTREMITIES: There is no peripheral edema. No clubbing, no cyanosis. Peripher al pulses are intact. - Labs CBC & Chem 7: 10/02/23 11:32 10/02/23 11:32 Labs: Abnormal Lab Results - Last 24 Hours (Table) 10/01/23 10/01/23 10/01/23 Range/Units 07:13 16:38 20:26 RBC (4.30-5.90) m/uL Hgb (13.0-17.5) gm/dL Hct (39.0-53.0) % Neutrophils # (1.3-7.7) k/uL Lymphocytes # (1.0-4.8) k/uL Sodium (137-145) mmol/L Potassium (3.5-5.1) mmol/L Creatinine (0.66-1.25) mg/dL Glucose (74-99) mg/dL POC Glucose (mg/dL) 157 H 137 H (70-110) mg/dL Ferritin 912.0 H (22.0-322.0) ng/mL AST (17-59) U/L Total Protein (6.3-8.2) g/dL Albumin (3.5-5.0) g/dL 10/02/23 10/02/23 10/02/23 Range/Units 06:22 11:31 11:32 RBC 4.08 L (4.30-5.90) m/uL Hgb 12.3 L (13.0-17.5) gm/dL Hct 37.0 L (39.0-53.0) % Neutrophils # 8.5 H (1.3-7.7) k/uL Lymphocytes # 0.8 L (1.0-4.8) k/uL Sodium (137-145) mmol/L Potassium (3.5-5.1) mmol/L Creatinine (0.66-1.25) mg/dL Glucose (74-99) mg/dL POC Glucose (mg/dL) 111 H 120 H (70-110) mg/dL Ferritin (22.0-322.0) ng/mL AST (17-59) U/L Total Protein (6.3-8.2) g/dL Albumin (3.5-5.0) g/dL 10/02/23 Range/Units 11:32 RBC (4.30-5.90) m/uL Hgb (13.0-17.5) gm/dL Hct (39.0-53.0) % Neutrophils # (1.3-7.7) k/uL Lymphocytes # (1.0-4.8) k/uL Sodium 130 L (137-145) mmol/L Potassium 3.1 L (3.5-5.1) mmol/L Creatinine 0.51 L (0.66-1.25) mg/dL Glucose 118 H (74-99) mg/dL POC Glucose (mg/dL) (70-110) mg/dL Ferritin (22.0-322.0) ng/mL AST 94 H (17-59) U/L Total Protein 5.3 L (6.3-8.2) g/dL Albumin 2.6 L (3.5-5.0) g/dL Assessment and Plan Assessment: Impression: Acute hypoxic respiratory failure, secondary to right lower lobe atelectasis/consolidation, possible community-acquired pneumonia. Generalized weakness and fall suspect secondary to hyponatremia and COVID-19 infection Altered mental status secondary to above Acute COVID-19 infection without clear evidence of COVID-19 pneumonia Right elevated hemidiaphragm, possible paralysis, unable to complete sniff test due to generalized weakness Hyponatremia of unclear etiology suspect secondary to hypovolemia and urinary re tention Acute kidney injury secondary to urinary retention, status post Rosales catheter placement Rhabdomyolysis secondary to prolonged downtime History of seizure disorder History of hypothyroidism History of hypertension Former smoker Recommendation: Continue antibiotics Continue high flow nasal cannula Ordered a sniff test to be done tomorrow, may have to consider also a CT of the chest His D-dimer came back normal no need for workup for pulmonary embolism. Procalcitonin level is elevated remains on antibiotics for presumptive right lower lobe pneumonia Continue COVID-19 cocktail. Continue to monitor electrolytes Will continue to follow Time with Patient: Less than 30
[2023-10-02] MEDS: LOPERAMIDE 2 MG CAP PO PRN (17:04)
[2023-10-03] MEDS: ERGOCALCIFEROL 1,250 MCG (50,000 IU) CAPSULE PO SCH (08:33)
[2023-10-03 10:16] LABS: ALT 49 U/L (4-49); AST 95 U/L (17-59); African American GFR (CKD) >90 (>60 ml/min/1.73 sqM); Albumin 2.7 g/dL (3.5-5.0); Alkaline Phosphatase 54 U/L (38-126); Anion Gap 4 mmol/L; Blood Urea Nitrogen 16 mg/dL (9-20); C Reactive Protein 6.5 mg/dL (<1.0); Calcium 8.4 mg/dL (8.4-10.2); Carbon Dioxide 32 mmol/L (22-30); Chloride 97 mmol/L (98-107); Glucose 174 mg/dL (74-99); LDH 312 U/L (120-246); Non-African American GFR(CKD) >90 (>60 ml/min/1.73 sqM); Potassium 3.2 mmol/L (3.5-5.1); Sodium 133 mmol/L (137-145); Total Bilirubin 0.6 mg/dL (0.2-1.3); Total Protein 5.5 g/dL (6.3-8.2)
[2023-10-03 10:17] LABS: Basophils # (A) 0.1 k/uL (0-0.2); Basophils % (A) 1 %; Eosinophils % (A) 0 %; HCT 40.6 % (39.0-53.0); Lymphocytes % (A) 13 %; MCH 29.4 pg (25.0-35.0); MCHC 32.1 g/dL (31.0-37.0); MCV 91.6 fL (80.0-100.0); Mean Platelet Volume 8.3; Monocytes # (A) 0.5 k/uL (0-1.0); Monocytes % (A) 7 %; Neutrophils # (A) 6.3 k/uL (1.3-7.7); Neutrophils % (A) 79 %; Platelet Count 201 k/uL (150-450); RBC 4.43 m/uL (4.30-5.90); RDW 13.3 % (11.5-15.5)
[2023-10-03 10:22] LABS: NT-Pro-B-Type Natriuretic Pept 1110 pg/mL
[2023-10-03] MEDS: hydrALAZINE HCL 20 MG/ML 1 ML VIAL IVP PRN (11:30)
[2023-10-03 11:32] LABS: HCT 39.6 % (39.0-53.0); MCH 29.8 pg (25.0-35.0); MCHC 32.9 g/dL (31.0-37.0); MCV 90.8 fL (80.0-100.0); Mean Platelet Volume 8.5; Platelet Count 196 k/uL (150-450); RBC 4.36 m/uL (4.30-5.90); RDW 13.2 % (11.5-15.5); WBC 11.3 k/uL (3.8-10.6)
--- NOTE | 2023-10-03 11:37 | P.PN ---
Subjective Progress Note Date: 10/02/23 Principal diagnosis: Reason for follow-up is COVID-19 and pneumonia Patient is a 77-year-old male with a past medical history significant for hypertension seizure disorder hypothyroidism patient has been brought into the hospital for evaluation of generalized weakness patient was noticed to be on the bathroom floor after apparently patient fell down, patient did tested positive for COVID-19, initial chest x-ray reported negative. On today's evaluation that is 10/02/2023,the patient denies any fever or any chills, patient is breathing comfortably however the patient is currently requiring 8 L high flow oxygen, the patient denies chest pain sand no significant cough, patient denies abdominal pain, no nausea vomiting or diarrhea. Patient did have white count of 10.2, creatinine 0.5 point Objective - Vital Signs Vital signs: Vital Signs Temp 99.6 F 10/01/23 20:00 Pulse 86 10/02/23 04:00 Resp 18 10/02/23 04:00 BP 173/74 10/02/23 04:00 Pulse Ox 90 L 10/02/23 07:44 FiO2 100 09/30/23 12:36 Intake & Output 10/01/23 10/02/23 10/02/23 18:59 06:59 18:59 Intake Total 118 Output Total 600 1070 375 Balance -284 -6576 -019 Intake: Oral 118 Output: Urine 600 1070 375 Other: Voiding Method Indwelling Catheter Indwelling Catheter - Exam GENERAL DESCRIPTION: An elderly male lying in bed in no distress RESPIRATORY SYSTEM: Unlabored breathing , decreased breath sounds at bases HEART: S1 S2 regular rate and rhythm , ABDOMEN: Soft , no tenderness EXTREMITIES: No edema feet - Labs CBC & Chem 7: 10/03/23 09:17 10/03/23 09:17 Labs: Abnormal Lab Results - Last 24 Hours (Table) 10/01/23 10/01/23 10/01/23 Range/Units 07:13 11:22 16:38 POC Glucose (mg/dL) 135 H 157 H (70-110) mg/dL Ferritin 912.0 H (22.0-322.0) ng/mL 10/01/23 10/02/23 Range/Units 20:26 06:22 POC Glucose (mg/dL) 137 H 111 H (70-110) mg/dL Ferritin (22.0-322.0) ng/mL Assessment and Plan (1) COVID-19 Current Visit: Yes Status: Acute Code(s): U07.1 - COVID-19 SNOMED Code(s): 987680499 (2) Sepsis Current Visit: Yes Status: Acute Code(s): A41.9 - SEPSIS, UNSPECIFIED ORGANISM SNOMED Code(s): 52278152 (3) Pneumonia Current Visit: Yes Status: Acute Code(s): J18.9 - PNEUMONIA, UNSPECIFIED ORGANISM SNOMED Code(s): 531385134 (4) Penicillin allergy Current Visit: Yes Status: Acute Code(s): Z88.0 - ALLERGY STATUS TO PENICILLIN SNOMED Code(s): 45704366 Plan: 1patient presented to hospital generalized weakness and did have a fall source likely multifactorial. He tested positive for COVID-19 however initial chest x- ray was negative for acute infiltrate treatment for COVID will be mostly supportive 2-patient did have chest x-ray with right lower lobe infiltrate concerning for possible pneumonia 3-patient did have minimal improvement in his clinical condition requiring less oxygen, we will try to obtain a sputum continue with cefepime and monitor clinical course closely Dictation was produced using [employer] dictation software. please excuse any grammatical, word or spelling errors. Time with Patient: Less than 30
[2023-10-03 11:43] LABS: ALT 53 U/L (4-49); AST 101 U/L (17-59); African American GFR (CKD) >90 (>60 ml/min/1.73 sqM); Albumin 2.8 g/dL (3.5-5.0); Alkaline Phosphatase 52 U/L (38-126); Anion Gap 5 mmol/L; Blood Urea Nitrogen 15 mg/dL (9-20); Calcium 8.7 mg/dL (8.4-10.2); Carbon Dioxide 30 mmol/L (22-30); Chloride 97 mmol/L (98-107); Glucose 166 mg/dL (74-99); Non-African American GFR(CKD) >90 (>60 ml/min/1.73 sqM); Potassium 3.3 mmol/L (3.5-5.1); Sodium 132 mmol/L (137-145); Total Bilirubin 0.6 mg/dL (0.2-1.3); Total Protein 5.7 g/dL (6.3-8.2)
[2023-10-03 12:15] LABS: Band Neutrophils % 1 %; Lymphocytes # (M) 1.92 k/uL (1.0-4.8); Metamyelocytes # (M) 0.23 k/uL (0); Metamyelocytes % 2 %; Monocytes # (M) 0.68 k/uL (0-1.0); Myelocytes # (M) 0.11 k/uL (0); Myelocytes % 1 %; Neutrophils % (M) 74 %; Nucleated Red Blood Cells 0 /100 WBC (0-0); Total Cells Counted 200
[2023-10-03 12:16] LABS: RBC Morphology Normal
--- NOTE | 2023-10-03 12:40 | P.PN ---
Subjective Patient is seen for follow-up for hyponatremia. Complaining of mild shortness of breath. Currently with indwelling Rosales catheter for urine retention. Also maintained on saline at 50 mL an hour. It appears that patient received 1 dose of Samsca on 09/29/2023 Serum sodium staying at about 130-132. Tolerating oral intake. Objective - Vital Signs Vital signs: Vital Signs Temp 98.5 F 10/03/23 11:35 Pulse 97 10/03/23 08:09 Resp 22 10/03/23 08:09 BP 185/57 10/03/23 11:19 Pulse Ox 91 L 10/03/23 08:54 FiO2 100 09/30/23 12:36 Intake & Output 10/02/23 10/03/23 10/03/23 18:59 06:59 18:59 Intake Total 190 Output Total 1875 1220 800 Balance -1875 -1220 -610 Intake: IV 10 Invasive Line 3 10 Oral 180 Output: Urine 1875 1220 800 Other: Voiding Method Indwelling Catheter Indwelling Catheter Indwelling Catheter # Bowel Movements 2 - Exam On examination patient is comfortable. No acute distress Alert oriented 3 Examination of the heart S1 and S2 Examination of the lungs his breath sounds at the bases with bilateral wheezing heard Abdomen is soft nontender Examination of lower extremity shows edema 1+ bilaterally ECHOCARDIOGRAPHY RADIOLOGY TECHNOLOGIST exam grossly intact - Labs CBC & Chem 7: 10/03/23 11:12 10/03/23 11:12 Labs: Abnormal Lab Results - Last 24 Hours (Table) 10/03/23 10/03/23 10/03/23 Range/Units 09:17 11:12 11:12 WBC 11.3 H (3.8-10.6) k/uL Neutrophils # (Manual) 8.40 H (1.3-7.7) k/uL Metamyelocytes # (Man) 0.23 H (0) k/uL Myelocytes # (Manual) 0.11 H (0) k/uL Sodium 133 L 132 L (137-145) mmol/L Potassium 3.2 L 3.3 L (3.5-5.1) mmol/L Chloride 97 L 97 L (98-107) mmol/L Carbon Dioxide 32 H (22-30) mmol/L Creatinine 0.57 L 0.51 L (0.66-1.25) mg/dL Glucose 174 H 166 H (74-99) mg/dL AST 95 H 101 H (17-59) U/L ALT 53 H (4-49) U/L Lactate Dehydrogenase 312 H (120-246) U/L C-Reactive Protein 6.5 H (<1.0) mg/dL Total Protein 5.5 L 5.7 L (6.3-8.2) g/dL Albumin 2.7 L 2.8 L (3.5-5.0) g/dL Assessment and Plan Assessment: 1. Hyponatremia. Component of hypovolemia as well as urinary retention. Sodium level 118 on admission -132 today. TSH normal. Urine osmolality 543. Urine sodium less than 20. TSH normal. DC saline 2. Acute kidney injury secondary to urinary retention. Creatinine 1.26 on admission and resolved at 0.89. No proteinuria on UA. No hydronephrosis noted on kidney ultrasound. 3. Urinary retention status post Rosales catheter placement. On Flomax. Urology following. 4. Benign hypertension. Controlled. 5. Hypokalemia from poor intake and postobstructive diuresis. Magnesium normal. 6. Rhabdomyolysis secondary to fall. CK level trending down. Plan: DC saline Replace potassium Increase oral intake of protein.
--- NOTE | 2023-10-03 12:43 | P.PN ---
Subjective Progress Note Date: 10/03/23 patient is a 77-year-old gentleman past medical history significant for hypothyroidism, hypertension who presented to the ER for generalized weakness and fall. Patient was brought in by family members, apparently patient was trying to use the restroom when he lost all his strength and slumped to the ground. There was no complaint of any loss of consciousness. No complaint of weakness of any extremity. Family did not notice any slurred speech or facial droop. There was no complaint of fever or chills. No complaint of nausea, vomiting, abdominal pain. Patient's family tried to help him to get up but they were unable to lift him. They called EMS and they brought him to ER. Initial lab work done in the ER showed WBC 10.5, hemoglobin 15.2, platelet count 165, sodium 118, potassium 4.1, BUN 24, creatinine 1.26, plasma lactate 4.1, troponin 0.012 UA negative for any infection EKG done in the ER showed heart rate of 75, no ST segment elevation or depression seen, no T-wave inversions seen. Chest x-ray done in the ER no acute cardiopulmonary process CT head done showed no acute intracranial process Patient admitted to internal medicine service 09/29. Patient seen and examined. COVID-19 came back positive. Currently on 4 L of oxygen. Sodium this morning is 121. Still complain lethargy and weakness. Patient also diagnosed with COVID 09/30. Patient seen and examined. Blood work done this morning showed WBC 14.9, hemoglobin 12.9, platelet count 146, sodium 126, potassium 3.9, BUN 15, creatinine 0.68. States he feels much better. Shortness of breath is improved. 10/01. Patient seen and examined. Still on 15 L of oxygen via nonrebreather. States he feels better. Sodium level improved to 132, potassium 3.3, BUN 18, creatinine 0.65. Lethargy has improved. 10/02. Patient seen and examined. Currently on 8 L of oxygen via high flow nasal cannula. States he feels much better, breathing is improved, pulmonology recommended sniff test to look for right diaphragm paralysis 10/03. Patient seen and examined. Continues to be on 15 L of oxygen. Patient is not lethargic, states gets short of breath on exertion. Denies any nausea or vomiting REVIEW OF SYSTEMS: CONSTITUTIONAL: No fever, no malaise,. CARDIOVASCULAR: No chest pain, no palpitations, no syncope. PULMONARY: No shortness of breath, no cough, GASTROINTESTINAL: No diarrhea, no nausea, no vomiting, no abdominal pain. NEUROLOGICAL: No headaches, no weakness, PHYSICAL EXAMINATION: GENERAL: The patient is alert and oriented x3, not in any acute distress. Well developed, well nourished. HEENT: Pupils are round and equally reacting to light. EOMI. No scleral icterus. No conjunctival pallor. Normocephalic, atraumatic. No pharyngeal erythema. No thyromegaly. CARDIOVASCULAR: S1 and S2 present. No murmurs, rubs, or gallops. PULMONARY: Coarse breath sound bilaterally, no wheeze, no crackles audible ABDOMEN: Soft, nontender, nondistended, normoactive bowel sounds. No palpable organomegaly. MUSCULOSKELETAL: 1+ pitting edema lower extremities bilaterally EXTREMITIES: No cyanosis, clubbing, or pedal edema. NEUROLOGICAL: Gross neurological examination did not reveal any focal deficits. SKIN: No rashes. Assessment and plan Hyponatremia COVID-19 Acute hypoxic respiratory failure Generalized weakness Rhabdomyolysis Fall Urinary retention Hypothyroidism Hypertension Monitor vital signs Monitor CBC Continue telemetry monitoring Strict I's and O's Daily weights Monitor BMP COVID-19 PCR was positive Continue Flomax. Avoid nephrotoxins. Continue Decadron Continue cefepime Potassium replacement ordered ID following Nephrology following, patient received tolvaptan on 09/29 Urology following Pulmonology following, ordered sniff test PT and OT consulted Labs and medication were reviewed.. Continue same treatment. Continue with symptomatic treatment. Resume home medication. Monitor labs and vitals. DVT and GI prophylaxis. Further recommendations as per clinical course of the patient Dictation was produced using [employer] dictation software. please excuse any grammatical, word or spelling errors. Objective - Vital Signs Vital signs: Vital Signs Temp 98.1 F 10/03/23 08:09 Pulse 97 10/03/23 08:09 Resp 22 10/03/23 08:09 BP 181/86 10/03/23 08:09 Pulse Ox 91 L 10/03/23 08:54 FiO2 100 09/30/23 12:36 Intake & Output 10/02/23 10/03/23 10/03/23 18:59 06:59 18:59 Intake Total 190 Output Total 1875 1220 Balance -1875 -1220 190 Intake: IV 10 Invasive Line 3 10 Oral 180 Output: Urine 1874 1220 Other: Voiding Method Indwelling Catheter Indwelling Catheter # Bowel Movements 2 - Labs CBC & Chem 7: 10/03/23 11:12 10/03/23 11:12 Labs: Abnormal Lab Results - Last 24 Hours (Table) 10/02/23 10/02/23 10/02/23 Range/Units 11:31 11:32 11:32 RBC 4.08 L (4.30-5.90) m/uL Hgb 12.3 L (13.0-17.5) gm/dL Hct 37.0 L (39.0-53.0) % Neutrophils # 8.5 H (1.3-7.7) k/uL Lymphocytes # 0.8 L (1.0-4.8) k/uL Sodium 130 L (137-145) mmol/L Potassium 3.1 L (3.5-5.1) mmol/L Creatinine 0.51 L (0.66-1.25) mg/dL Glucose 118 H (74-99) mg/dL POC Glucose (mg/dL) 120 H (70-110) mg/dL AST 94 H (17-59) U/L Total Protein 5.3 L (6.3-8.2) g/dL Albumin 2.6 L (3.5-5.0) g/dL
[2023-10-03] MEDS: POTASSIUM CHLORIDE ER 20 MEQ TAB.ER PO SCH (13:08)
--- NOTE | 2023-10-03 13:31 | P.PN ---
Subjective Progress Note Date: 10/03/23 Principal diagnosis: Weakness. Generalized weakness secondary to COVID-19 infection and hyponatremia with possible diaphragm paralysis and acute hypoxic respiratory failure This is a 77-year-old male patient with a history of hypertension, seizure disorder, thyroid disorder, former smoker. On September 27, 2023 the patient had gotten up to go the bathroom and slumped onto the ground. He had been reportedly laying on the ground for several hours by family were attempting to get in helping him get up but he was unable to support himself. He also had trouble with urinary incontinence. EMS was called and he was brought here for evaluation. CT scan of the brain revealed no acute intracranial hemorrhage, midline shift or mass effect. EKG revealed sinus rhythm with no significant ST or T wave abnormalities. White count 14.9. Hemoglobin 12.9. Platelets 146. Sodium 126. Potassium 3.9. Bicarb 26. BUN 15. Creatinine 0.68. Glucose 152. AST 148. ALT 43. Creatinine kinase 2283. He did test positive for COVID-19 infection. His initial sodium level was 118. BUN of 24 and a creatinine of 1.26. He had been seen by nephrology, urology and infectious disease. A chest x-ray was done today September 30, 2023 that revealed an elevated right hemidiaphragm and we are consulted for the same. He was sent for a sniff test however the patient was unable to perform the appropriate maneuvers due to overall condition. He is seen on consultation on the selective care unit. He is currently resting in bed. Difficult to arouse but arousable. He is on a nonrebreather mask with O2 saturation of 90%. Currently afebrile. Hemodynamically stable. He has been initiated on Decadron. Antibiotics in the form of cefepime. Saline at 50 MLS per hour. Patient was evaluated today on 10/01/2023, more awake today, more responsive, seems to be more alert, and remains on a nonrebreather mask which I have recommended to transition to high flow nasal cannula. Patient did transition to 10 L high flow nasal cannula and O2 saturation was ranging between 92 up to 96% definitely better today compared to the last couple of days. Still planning to repeat his sniff test to evaluate for right hemidiaphragm paralysis. Procalcitonin level came back elevated at 0.43, patient remains on antibiotics for presumptive right lower lobe pneumonia. WBC count today 13.9 hemoglobin 13.0.Basic metabolic profile is relatively normal. Reevaluated today on 10/02/2023, patient is on 10 L high flow nasal cannula, doing better, breathing easier, O2 saturation is in the low 90s, patient continues to have diminished breath sounds at the right base, and I believe the patient has right hemidiaphragm paralysis with right lower lobe atelectasis, possible underlying pneumonia, but I feel clinically this is not the picture. At any rate the patient is supposed to have a sniff test tomorrow, may even have to consider a CT of the chest to evaluate the right lower lobe further. Based on the sniff test, further recommendations will follow. In the meantime patient is gradually improving, feeling better, breathing easier and definitely his neurological status is significantly improved now compared to how he was few days ago WBC count is 10.2 hemoglobin is 12.3, sodium is up to 130, potassium 3.1 renal profile is normal procalcitonin level on this patient was 0.43, hence he was empirically placed on antibiotics for presumptive right lower lobe pneumonia Progress note dated October 03, 2023. The patient is seen today in room 362. He continues on a nonrebreather mask. Previously, he was on 15 L high flow oxygen. Because of saturations in the high 80s, the nurse switched him to a nonrebreather mask. Currently his saturations are in the low 90s. The patient continues on Decadron, and cefepime. He is getting saline at 50 cc an hour. His procalcitonin level is 0.43. Laboratory data includes a white count 11.3, hemoglobin 13, hematocrit 39.6, and a platelet count of 196,000. Sodium 132, potassium 3.3, chloride 97, CO2 30, BUN 15, creatinine 0.51. The patient's albumin is 2.8. AST is 101, and ALT is 53. Chest x-ray shows some basilar atelectasis or infiltrate, with an elevated right diaphragm, and possible effusion. Objective - Vital Signs Vital signs: Vital Signs Temp 98.5 F 10/03/23 13:21 Pulse 106 H 10/03/23 13:21 Resp 20 10/03/23 13:21 BP 174/84 10/03/23 13:21 Pulse Ox 93 L 10/03/23 13:21 FiO2 100 09/30/23 12:36 Intake & Output 10/02/23 10/03/23 10/03/23 18:59 06:59 18:59 Intake Total 190 Output Total 1875 1220 800 Balance -1875 -1220 -610 Intake: IV 10 Invasive Line 3 10 Oral 180 Output: Urine 1874 1220 800 Other: Voiding Method Indwelling Catheter Indwelling Catheter Indwelling Catheter # Bowel Movements 2 - Exam No acute distress, arouses, currently on a nonrebreather mask. HEENT examination is grossly unremarkable. Mucous membranes are moist. No oral lesions. Neck supple. Full range of motion. No adenopathy thyromegaly or neck vein distention. Cardiovascular examination reveals regular rhythm rate. S1-S2 normal. No S3 or S4. No discernible murmur noted. Heart sounds are distant. Heart rate 83 bpm. Lungs reveal electively clear but diminished breath sounds throughout. Minimal rhonchi. No wheezes. No crackles. Nonrebreather mask saturations are 93%. Abdomen soft bowel sounds are heard. No masses or tenderness. Extremities are intact. No cyanosis clubbing or edema. Skin is without rash or lesion. Neurologic examination is brief but nonfocal. - Labs CBC & Chem 7: 10/03/23 11:12 10/03/23 11:12 Labs: Abnormal Lab Results - Last 24 Hours (Table) 10/03/23 10/03/23 10/03/23 Range/Units 09:17 11:12 11:12 WBC 11.3 H (3.8-10.6) k/uL Neutrophils # (Manual) 8.40 H (1.3-7.7) k/uL Metamyelocytes # (Man) 0.23 H (0) k/uL Myelocytes # (Manual) 0.11 H (0) k/uL Sodium 133 L 132 L (137-145) mmol/L Potassium 3.2 L 3.3 L (3.5-5.1) mmol/L Chloride 97 L 97 L (98-107) mmol/L Carbon Dioxide 32 H (22-30) mmol/L Creatinine 0.57 L 0.51 L (0.66-1.25) mg/dL Glucose 174 H 166 H (74-99) mg/dL AST 95 H 101 H (17-59) U/L ALT 53 H (4-49) U/L Lactate Dehydrogenase 312 H (120-246) U/L C-Reactive Protein 6.5 H (<1.0) mg/dL Total Protein 5.5 L 5.7 L (6.3-8.2) g/dL Albumin 2.7 L 2.8 L (3.5-5.0) g/dL Assessment and Plan Assessment: Acute hypoxemic respiratory failure secondary to right lower lobe atelectasis/consolidation, and possible pneumonia. Generalized weakness, likely secondary to coronavirus infection, and hyponatremia. Acute mental status changes, likely secondary to metabolic encephalopathy. Acute coronavirus infection, without evidence of coronavirus associated pneumonia. Right diaphragm elevation, and possible paresis/paralysis. Hyponatremia. Acute kidney injury. Rhabdomyolysis. History of seizure disorder. History of hypothyroidism. History of hypertension. Previous history of tobacco use. Plan: Plan dated October 03, 2023. The patient is seen today in room 362. The nurse recently changed him from 15 L high flow nasal prongs, to a nonrebreather mask. His saturations are in the low 90s. The patient continues on Decadron, and cefepime. He is also receiving saline at 50 cc an hour. His procalcitonin level was 0.43. Labs, x-rays, and medications are reviewed. We will continue to follow the patient, make recommendations along the way. Prognosis is certainly guarded. Time with Patient: Less than 30
[2023-10-03] MEDS: hydrALAZINE HCL 25 MG TAB PO SCH (15:39)
--- NOTE | 2023-10-03 16:50 | XR ---
EXAMINATION TYPE: XR chest 1V portable DATE OF EXAM: 10/03/2023 Comparison: 09/30/2023 Clinical History: 77-year-old male Hypoxemia Findings: Heart borderline enlarged. Continued asymmetric elevation right hemidiaphragm. Increasing patchy left basilar opacity. Increasing patchy right basilar opacity. Impression: Borderline cardiomegaly with ongoing asymmetric elevation right hemidiaphragm. Increasing patchy biba silar atelectasis versus infiltrates.
--- NOTE | 2023-10-04 10:45 | P.PN ---
Subjective Progress Note Date: 10/04/23 Principal diagnosis: Weakness. Generalized weakness secondary to COVID-19 infection and hyponatremia with possible diaphragm paralysis and acute hypoxic respiratory failure This is a 77-year-old male patient with a history of hypertension, seizure disorder, thyroid disorder, former smoker. On September 27, 2023 the patient had gotten up to go the bathroom and slumped onto the ground. He had been reportedly laying on the ground for several hours by family were attempting to get in helping him get up but he was unable to support himself. He also had trouble with urinary incontinence. EMS was called and he was brought here for evaluation. CT scan of the brain revealed no acute intracranial hemorrhage, midline shift or mass effect. EKG revealed sinus rhythm with no significant ST or T wave abnormalities. White count 14.9. Hemoglobin 12.9. Platelets 146. Sodium 126. Potassium 3.9. Bicarb 26. BUN 15. Creatinine 0.68. Glucose 152. AST 148. ALT 43. Creatinine kinase 2283. He did test positive for COVID-19 infection. His initial sodium level was 118. BUN of 24 and a creatinine of 1.26. He had been seen by nephrology, urology and infectious disease. A chest x-ray was done today September 30, 2023 that revealed an elevated right hemidiaphragm and we are consulted for the same. He was sent for a sniff test however the patient was unable to perform the appropriate maneuvers due to overall condition. He is seen on consultation on the selective care unit. He is currently resting in bed. Difficult to arouse but arousable. He is on a nonrebreather mask with O2 saturation of 90%. Currently afebrile. Hemodynamically stable. He has been initiated on Decadron. Antibiotics in the form of cefepime. Saline at 50 MLS per hour. Patient was evaluated today on 10/01/2023, more awake today, more responsive, seems to be more alert, and remains on a nonrebreather mask which I have recommended to transition to high flow nasal cannula. Patient did transition to 10 L high flow nasal cannula and O2 saturation was ranging between 92 up to 96% definitely better today compared to the last couple of days. Still planning to repeat his sniff test to evaluate for right hemidiaphragm paralysis. Procalcitonin level came back elevated at 0.43, patient remains on antibiotics for presumptive right lower lobe pneumonia. WBC count today 13.9 hemoglobin 13.0.Basic metabolic profile is relatively normal. Reevaluated today on 10/02/2023, patient is on 10 L high flow nasal cannula, doing better, breathing easier, O2 saturation is in the low 90s, patient continues to have diminished breath sounds at the right base, and I believe the patient has right hemidiaphragm paralysis with right lower lobe atelectasis, possible underlying pneumonia, but I feel clinically this is not the picture. At any rate the patient is supposed to have a sniff test tomorrow, may even have to consider a CT of the chest to evaluate the right lower lobe further. Based on the sniff test, further recommendations will follow. In the meantime patient is gradually improving, feeling better, breathing easier and definitely his neurological status is significantly improved now compared to how he was few days ago WBC count is 10.2 hemoglobin is 12.3, sodium is up to 130, potassium 3.1 renal profile is normal procalcitonin level on this patient was 0.43, hence he was empirically placed on antibiotics for presumptive right lower lobe pneumonia Progress note dated October 03, 2023. The patient is seen today in room 362. He continues on a nonrebreather mask. Previously, he was on 15 L high flow oxygen. Because of saturations in the high 80s, the nurse switched him to a nonrebreather mask. Currently his saturations are in the low 90s. The patient continues on Decadron, and cefepime. He is getting saline at 50 cc an hour. His procalcitonin level is 0.43. Laboratory data includes a white count 11.3, hemoglobin 13, hematocrit 39.6, and a platelet count of 196,000. Sodium 132, potassium 3.3, chloride 97, CO2 30, BUN 15, creatinine 0.51. The patient's albumin is 2.8. AST is 101, and ALT is 53. Chest x-ray shows some basilar atelectasis or infiltrate, with an elevated right diaphragm, and possible effusion. Progress note dated October 12, 2023. 77-year-old male, seen today in room 362. The patient was initially on a nonrebreather, but saturations were only in the mid 80s. The patient was converted to Airvo, with settings of 60 L/min, with an FiO2 of 95%. His saturations then increased to 88 to 90%. The patient is not receiving any IV fluids. No new labs today. Labs from October 03 have been reviewed. Microbiologic sampling, is negative or pending. Chest x-ray reveals borderline cardiomegaly, with ongoing asymmetric elevation of the right hemidiaphragm. There is increasing patchy bibasilar atelectasis/infiltrate. Objective - Vital Signs Vital signs: Vital Signs Temp 97.8 F 10/04/23 08:30 Pulse 93 10/04/23 08:30 Resp 20 10/04/23 08:30 BP 137/76 10/04/23 08:30 Pulse Ox 88 L 10/04/23 09:38 FiO2 95 10/04/23 09:38 Intake & Output 10/03/23 10/04/23 10/04/23 18:59 06:59 18:59 Intake Total 550 10 190 Output Total 1500 1025 625 Balance -950 -1015 -435 Intake: IV 10 10 10 0.9 10 Invasive Line 3 10 10 Oral 540 180 Output: Urine 1500 1025 625 Other: Voiding Method Indwelling Catheter Indwelling Catheter - Exam No acute distress, arouses, currently on a nonrebreather mask. HEENT examination is grossly unremarkable. Mucous membranes are moist. No oral lesions. Neck supple. Full range of motion. No adenopathy thyromegaly or neck vein distention. Cardiovascular examination reveals regular rhythm rate. S1-S2 normal. No S3 or S4. No discernible murmur noted. Heart sounds are distant. Heart rate 93 bpm. Lungs reveal electively clear but diminished breath sounds throughout. Minimal rhonchi. No wheezes. No crackles. Airvo's saturations are documented at 88 to 91%. Abdomen soft bowel sounds are heard. No masses or tenderness. Extremities are intact. No cyanosis clubbing or edema. Skin is without rash or lesion. Neurologic examination is brief but nonfocal. - Labs CBC & Chem 7: 10/03/23 11:12 10/03/23 11:12 Labs: Abnormal Lab Results - Last 24 Hours (Table) 10/03/23 10/03/23 10/03/23 Range/Units 09:17 11:12 11:12 WBC 11.3 H (3.8-10.6) k/uL Neutrophils # (Manual) 8.40 H (1.3-7.7) k/uL Metamyelocytes # (Man) 0.23 H (0) k/uL Myelocytes # (Manual) 0.11 H (0) k/uL Sodium 132 L (137-145) mmol/L Potassium 3.3 L (3.5-5.1) mmol/L Chloride 97 L (98-107) mmol/L Creatinine 0.51 L (0.66-1.25) mg/dL Glucose 166 H (74-99) mg/dL Ferritin 872.0 H (22.0-322.0) ng/mL AST 101 H (17-59) U/L ALT 53 H (4-49) U/L Total Protein 5.7 L (6.3-8.2) g/dL Albumin 2.8 L (3.5-5.0) g/dL Assessment and Plan Assessment: Acute hypoxemic respiratory failure secondary to right lower lobe atelectasis/consolidation, and possible pneumonia. Generalized weakness, likely secondary to coronavirus infection, and hyponatremia. Acute mental status changes, likely secondary to metabolic encephalopathy. Acute coronavirus infection, without evidence of coronavirus associated pneumonia. Right diaphragm elevation, and possible paresis/paralysis. Hyponatremia. Acute kidney injury. Rhabdomyolysis. History of seizure disorder. History of hypothyroidism. History of hypertension. Previous history of tobacco use. Plan: Plan dated October 03, 2023. The patient is seen today in room 362. The nurse recently changed him from 15 L high flow nasal prongs, to a nonrebreather mask. His saturations are in the low 90s. The patient continues on Decadron, and cefepime. He is also receiving saline at 50 cc an hour. His procalcitonin level was 0.43. Labs, x-rays, and medications are reviewed. We will continue to follow the patient, make recommendations along the way. Prognosis is certainly guarded. Plan dated October 04, 2023. The patient is seen today in room 362. The patient was on a nonrebreather mask, but because of low saturations, respiratory change the patient to Airvo, with settings of 60 L/min, and an FiO2 of 95%. The patient continues on Decadron, cefepime, zinc, vitamin D3, and vitamin C. Additional recommendations and suggestions are forthcoming. The patient's overall prognosis remains guarded. Chest x-ray has been reviewed. Labs, x-rays, and medications are reviewed. Overall prognosis remains guarded. CODE STATUS should be addressed. No additional recommendations at this time. Time with Patient: Less than 30
--- NOTE | 2023-10-04 12:48 | P.PN ---
Subjective Progress Note Date: 10/04/23 patient is a 77-year-old gentleman past medical history significant for hypothyroidism, hypertension who presented to the ER for generalized weakness and fall. Patient was brought in by family members, apparently patient was trying to use the restroom when he lost all his strength and slumped to the gr ound. There was no complaint of any loss of consciousness. No complaint of weakness of any extremity. Family did not notice any slurred speech or facial droop. There was no complaint of fever or chills. No complaint of nausea, vomiting, abdominal pain. Patient's family tried to help him to get up but they were unable to lift him. They called EMS and they brought him to ER. Initial lab work done in the ER showed WBC 10.5, hemoglobin 15.2, platelet count 165, sodium 118, potassium 4.1, BUN 24, creatinine 1.26, plasma lactate 4.1, troponin 0.012 UA negative for any infection EKG done in the ER showed heart rate of 75, no ST segment elevation or depression seen, no T-wave inversions seen. Chest x-ray done in the ER no acute cardiopulmonary process CT head done showed no acute intracranial process Patient admitted to internal medicine service 09/29. Patient seen and examined. COVID-19 came back positive. Currently on 4 L of oxygen. Sodium this morning is 121. Still complain lethargy and weakness. Patient also diagnosed with COVID 09/30. Patient seen and examined. Blood work done this morning showed WBC 14.9, hemoglobin 12.9, platelet count 146, sodium 126, potassium 3.9, BUN 15, creatinine 0.68. States he feels much better. Shortness of breath is improved. 10/01. Patient seen and examined. Still on 15 L of oxygen via nonrebreather. States he feels better. Sodium level improved to 132, potassium 3.3, BUN 18, creatinine 0.65. Lethargy has improved. 10/02. Patient seen and examined. Currently on 8 L of oxygen via high flow nasal cannula. States he feels much better, breathing is improved, pulmonology recommended sniff test to look for right diaphragm paralysis 10/03. Patient seen and examined. Continues to be on 15 L of oxygen. Patient is not lethargic, states gets short of breath on exertion. Denies any nausea or vomiting 10/04/2023 Patient seen and evaluated in follow-up today continues to be dyspneic maintained on high flow oxygen is being transferred to [facility]. Per nursing staff he continues to remove his nasal cannula as well as nonrebreather and respiratory following recommending i continuing this for a few hours. Patient has noted to be COVID-positive. Sodium is slightly low at 132 potassium was 3.3 yesterday and replaced awaiting follow-up labs. Patient with prolonged hospitalization and continued weakness will likely need ECF once stabilized. REVIEW OF SYSTEMS: CONSTITUTIONAL: No fever, no malaise,. CARDIOVASCULAR: No chest pain, no palpitations, no syncope. PULMONARY: Reports of shortness of breath, no cough GASTROINTESTINAL: No diarrhea, no nausea, no vomiting, no abdominal pain. NEUROLOGICAL: No headaches, no weakness, PHYSICAL EXAMINATION: GENERAL: The patient is alert and oriented x3. Well developed, well nourished. Obese HEENT: Pupils are round and equally reacting to light. EOMI. No scleral icterus. No conjunctival pallor. Normocephalic, atraumatic. No pharyngeal erythema. No thyromegaly. CARDIOVASCULAR: S1 and S2 muffled PULMONARY: Coarse breath sound bilaterally, no wheeze, no crackles audible ABDOMEN: Soft, obese, nontender, nondistended, normoactive bowel sounds. No palpable organomegaly. MUSCULOSKELETAL: 1+ pitting edema lower extremities bilaterally EXTREMITIES: No cyanosis, clubbing, or pedal edema. NEUROLOGICAL: Gross neurological examination did not reveal any focal deficits. Diffusely weak SKIN: No rashes. Assessment: Hyponatremia secondary to poor oral intake COVID-19 Acute hypoxic respiratory failure secondary to COVID-19, now requiring high flow Airvo Generalized weakness Rhabdomyolysis Fall Urinary retention requiring indwelling Rosales catheter Hypothyroidism Hypertension Obesity with a BMI of 35.0 Plan: Patient is continued on high flow oxygen and was on nonrebreather as well as nasal cannula although continues to remove and being placed on Airvo Pulmonary and nephrology following along with infectious disease. Patient is maintained on cefepime and will continue Patient had slightly low potassium yesterday at 3.3 and was replaced and will follow-up with repeat labs in the a.m. PT/OT following awaiting to evaluate the patient once respiratory status improves Patient will likely need rehab as patient has had prolonged hospitalization and continued weakness The impression and plan of care has been dictated by Margie Patricio, Nurse Practitioner as directed. Dr. Barr. I have performed a history and examination and MDM of this patient, discussed the same with the dictator, and agree with the dictator's assessment and plan as written ,documented as a scribe. Based on total visit time, I have performed more than 50% of the visit. Objective - Vital Signs Vital signs: Vital Signs Temp 97.8 F 10/04/23 08:30 Pulse 93 10/04/23 08:30 Resp 20 10/04/23 08:30 BP 137/76 10/04/23 08:30 Pulse Ox 88 L 10/04/23 09:38 FiO2 95 10/04/23 09:38 Intake & Output 10/03/23 10/04/23 10/04/23 18:59 06:59 18:59 Intake Total 550 10 190 Output Total 1500 1025 625 Balance -950 -1015 -435 Intake: IV 10 10 10 0.9 10 Invasive Line 3 10 10 Oral 540 180 Output: Urine 1500 1025 625 Other: Voiding Method Indwelling Catheter Indwelling Catheter - Labs CBC & Chem 7: 10/03/23 11:12 10/03/23 11:12 Labs: Abnormal Lab Results - Last 24 Hours (Table) 10/03/23 10/03/23 10/03/23 Range/Units 09:17 11:12 11:12 WBC 11.3 H (3.8-10.6) k/uL Neutrophils # (Manual) 8.40 H (1.3-7.7) k/uL Metamyelocytes # (Man) 0.23 H (0) k/uL Myelocytes # (Manual) 0.11 H (0) k/uL Sodium 133 L 132 L (137-145) mmol/L Potassium 3.2 L 3.3 L (3.5-5.1) mmol/L Chloride 97 L 97 L (98-107) mmol/L Carbon Dioxide 32 H (22-30) mmol/L Creatinine 0.57 L 0.51 L (0.66-1.25) mg/dL Glucose 174 H 166 H (74-99) mg/dL Ferritin 872.0 H (22.0-322.0) ng/mL AST 95 H 101 H (17-59) U/L ALT 53 H (4-49) U/L Lactate Dehydrogenase 312 H (120-246) U/L C-Reactive Protein 6.5 H (<1.0) mg/dL Total Protein 5.5 L 5.7 L (6.3-8.2) g/dL Albumin 2.7 L 2.8 L (3.5-5.0) g/dL
--- NOTE | 2023-10-04 13:11 | P.PN ---
Subjective Progress Note Date: 10/03/23 Principal diagnosis: Reason for follow-up is COVID-19 and pneumonia Patient is a 77-year-old male with a past medical history significant for hypertension seizure disorder hypothyroidism patient has been brought into the hospital for evaluation of generalized weakness patient was noticed to be on the bathroom floor after apparently patient fell down, patient did tested positive for COVID-19, initial chest x-ray reported negative. On today's evaluation that is 10/03/2023,the patient is afebrile, patient is breathing comfortably however the patient is currently requiring 15 L high flow oxygen, the patient denies chest pain sand no worsening cough or sputum produ ction, patient denies abdominal pain, no nausea vomiting or diarrhea. Patient did have white count of 11.3, creatinine 0.51 Objective - Vital Signs Vital signs: Vital Signs Temp 98.5 F 10/03/23 11:35 Pulse 97 10/03/23 08:09 Resp 22 10/03/23 08:09 BP 185/57 10/03/23 11:19 Pulse Ox 91 L 10/03/23 08:54 FiO2 100 09/30/23 12:36 Intake & Output 10/02/23 10/03/23 10/03/23 18:59 06:59 18:59 Intake Total 190 Output Total 1875 1220 800 Balance -5345 -1220 -971 Intake: IV 10 Invasive Line 3 10 Oral 180 Output: Urine 1875 1220 800 Other: Voiding Method Indwelling Catheter Indwelling Catheter Indwelling Catheter # Bowel Movements 2 - Exam GENERAL DESCRIPTION: An elderly male lying in bed in no distress RESPIRATORY SYSTEM: Unlabored breathing , decreased breath sounds at bases HEART: S1 S2 regular rate and rhythm , ABDOMEN: Soft , no tenderness EXTREMITIES: No edema feet - Labs CBC & Chem 7: 10/03/23 11:12 10/03/23 11:12 Labs: Abnormal Lab Results - Last 24 Hours (Table) 10/02/23 10/02/23 10/03/23 Range/Units 11:32 11:32 09:17 RBC 4.08 L (4.30-5.90) m/uL Hgb 12.3 L (13.0-17.5) gm/dL Hct 37.0 L (39.0-53.0) % Neutrophils # 8.5 H (1.3-7.7) k/uL Lymphocytes # 0.8 L (1.0-4.8) k/uL Sodium 130 L 133 L (137-145) mmol/L Potassium 3.1 L 3.2 L (3.5-5.1) mmol/L Chloride 97 L (98-107) mmol/L Carbon Dioxide 32 H (22-30) mmol/L Creatinine 0.51 L 0.57 L (0.66-1.25) mg/dL Glucose 118 H 174 H (74-99) mg/dL AST 94 H 95 H (17-59) U/L Lactate Dehydrogenase 312 H (120-246) U/L C-Reactive Protein 6.5 H (<1.0) mg/dL Total Protein 5.3 L 5.5 L (6.3-8.2) g/dL Albumin 2.6 L 2.7 L (3.5-5.0) g/dL Assessment and Plan (1) COVID-19 Current Visit: Yes Status: Acute Code(s): U07.1 - COVID-19 SNOMED Code(s): 700696313 (2) Sepsis Current Visit: Yes Status: Acute Code(s): A41.9 - SEPSIS, UNSPECIFIED ORGANISM SNOMED Code(s): 11597600 (3) Pneumonia Current Visit: Yes Status: Acute Code(s): J18.9 - PNEUMONIA, UNSPECIFIED ORGANISM SNOMED Code(s): 242159954 (4) Penicillin allergy Current Visit: Yes Status: Acute Code(s): Z88.0 - ALLERGY STATUS TO PEN ICILLIN SNOMED Code(s): 04161261 Plan: 1patient presented to hospital generalized weakness and did have a fall source likely multifactorial. He tested positive for COVID-19 however initial chest x- ray was negative for acute infiltrate treatment for COVID will be mostly supportive 2-patient did have chest x-ray with right lower lobe infiltrate concerning for possible pneumonia 3-patient respiratory status remains to be borderline requiring high flow oxygen, patient continue with cefepime and monitor clinical course closely Dictation was produced using [employer] dictation software. please excuse any grammatical, word or spelling errors.
--- NOTE | 2023-10-04 13:13 | P.PN ---
Subjective Progress Note Date: 10/04/23 Principal diagnosis: Reason for follow-up is COVID-19 and pneumonia Patient is a 77-year-old male with a past medical history significant for hypertension seizure disorder hypothyroidism patient has been brought into the hospital for evaluation of generalized weakness patient was noticed to be on the bathroom floor after apparently patient fell down, patient did tested positive for COVID-19, initial chest x-ray reported negative. On today's evaluation that is 10/04/2023, the patient continues to be afebrile, the patient is requiring high flow oxygen Airvo with 95% FiO2, the patient denies having any chest pain no worsening cough or sputum production no vomiting or diarrhea has been reported. No new labs has been obtained today Objective - Vital Signs Vital signs: Vital Signs Temp 98.3 F 10/04/23 12:30 Pulse 97 10/04/23 12:30 Resp 18 10/04/23 12:30 BP 134/83 10/04/23 12:30 Pulse Ox 94 L 10/04/23 12:30 FiO2 95 10/04/23 11:03 Intake & Output 10/03/23 10/04/23 10/04/23 18:59 06:59 18:59 Intake Total 550 10 190 Output Total 1500 1025 625 Balance -950 -1015 -435 Weight 113.852 kg Intake: IV 10 10 10 0.9 10 Invasive Line 3 10 10 Oral 540 180 Output: Urine 1500 1025 625 Other: Voiding Method Indwelling Catheter Indwelling Catheter Indwelling Catheter - Exam GENERAL DESCRIPTION: An elderly male lying in bed in no distress RESPIRATORY SYSTEM: Unlabored breathing , decreased breath sounds at bases HEART: S1 S2 regular rate and rhythm , ABDOMEN: Soft , no tenderness EXTREMITIES: No edema feet - Labs CBC & Chem 7: 10/03/23 11:12 10/03/23 11:12 Labs: Abnormal Lab Results - Last 24 Hours (Table) 10/03/23 Range/Units 09:17 Ferritin 872.0 H (22.0-322.0) ng/mL Assessment and Plan (1) COVID-19 Current Visit: Yes Status: Acute Code(s): U07.1 - COVID-19 SNOMED Code(s): 975694153 (2) Sepsis Current Visit: Yes Status: Acute Code(s): A41.9 - SEPSIS, UNSPECIFIED ORGANISM SNOMED Code(s): 31684486 (3) Pneumonia Current Visit: Yes Status: Acute Code(s): J18.9 - PNEUMONIA, UNSPECIFIED ORGANISM SNOMED Code(s): 106588646 (4) Penicillin allergy Current Visit: Yes Status: Acute Code(s): Z88.0 - ALLERGY STATUS TO PENICILLIN SNOMED Code(s): 03150031 Plan: 1patient presented to hospital generalized weakness and did have a fall source likely multifactorial. He tested positive for COVID-19 however initial chest x- ray was negative for acute infiltrate treatment for COVID will be mostly supportive 2-patient did have chest x-ray with right lower lobe infiltrate concerning for possible pneumonia 3-patient still having significant hypoxemia requiring high flow oxygen, we will try to obtain a sputum for now continue with cefepime and monitor clinical course closely Dictation was produced using [employer] dictation software. please excuse any grammatical, word or spelling errors. Time with Patient: Less than 30
[2023-10-04 15:50] LABS: African American GFR (CKD) >90 (>60 ml/min/1.73 sqM); Anion Gap 4 mmol/L; Blood Urea Nitrogen 18 mg/dL (9-20); Calcium 8.3 mg/dL (8.4-10.2); Carbon Dioxide 29 mmol/L (22-30); Chloride 98 mmol/L (98-107); Glucose 183 mg/dL (74-99); Non-African American GFR(CKD) >90 (>60 ml/min/1.73 sqM); Potassium 3.9 mmol/L (3.5-5.1); Sodium 131 mmol/L (137-145)
--- NOTE | 2023-10-04 16:58 | P.PN ---
Subjective Patient is seen for follow-up for hyponatremia. Currently with indwelling Rosales catheter for urine retention. Serum sodium staying at about 130-132. Tolerating oral intake. Objective - Vital Signs Vital signs: Vital Signs Temp 98.3 F 10/04/23 16:19 Pulse 97 10/04/23 16:19 Resp 20 10/04/23 16:19 BP 136/85 10/04/23 16:19 Pulse Ox 92 L 10/04/23 16:19 FiO2 95 10/04/23 15:27 Intake & Output 10/03/23 10/04/23 10/04/23 18:59 06:59 18:59 Intake Total 550 10 370 Output Total 1500 1025 1425 Balance -950 -1015 -1055 Weight 113.852 kg Intake: IV 10 10 10 0.9 10 Invasive Line 3 10 10 Oral 540 360 Output: Urine 1500 1025 1425 Other: Voiding Method Indwelling Catheter Indwelling Catheter Indwelling Catheter - Exam On examination patient is comfortable. No acute distress Alert oriented 3 Examination of the heart S1 and S2 Examination of the lungs his breath sounds at the bases with bilateral wheezing heard Abdomen is soft nontender Examination of lower extremity shows edema 1+ bilaterally [employer] exam grossly intact - Labs CBC & Chem 7: 10/03/23 11:12 10/04/23 15:10 Labs: Abnormal Lab Results - Last 24 Hours (Table) 10/04/23 Range/Units 15:10 Sodium 131 L (137-145) mmol/L Creatinine 0.61 L (0.66-1.25) mg/dL Glucose 183 H (74-99) mg/dL Calcium 8.3 L (8.4-10.2) mg/dL Assessment and Plan Assessment: 1. Hyponatremia. Component of hypovolemia as well as urinary retention. Sodium level 118 on admission -131 today. TSH normal. Urine osmolality 543. Urine sodium less than 20. TSH normal. DC saline 2. Acute kidney injury secondary to urinary retention. Creatinine 1.26 on admission and resolved at 0.89. No proteinuria on UA. No hydronephrosis noted on kidney ultrasound. 3. Urinary retention status post Rosales catheter placement. On Flomax. Urology following. 4. Benign hypertension. Controlled. 5. Hypokalemia from poor intake and postobstructive diuresis. Magnesium normal. 6. Rhabdomyolysis secondary to fall. CK level trending down. Plan: Continue off of IV fluids IV Lasix x 1 Increase oral intake of protein.
[2023-10-04 20:07] LABS: Glucose,Whole Blood 206 mg/dL (70-110)
--- NOTE | 2023-10-05 11:19 | P.PN ---
Subjective Progress Note Date: 10/05/23 Principal diagnosis: Weakness. Generalized weakness secondary to COVID-19 infection and hyponatremia with possible diaphragm paralysis and acute hypoxic respiratory failure This is a 77-year-old male patient with a history of hypertension, seizure disorder, thyroid disorder, former smoker. On September 27, 2023 the patient had gotten up to go the bathroom and slumped onto the ground. He had been reportedly laying on the ground for several hours by family were attempting to get in helping him get up but he was unable to support himself. He also had trouble with urinary incontinence. EMS was called and he was brought here for evaluation. CT scan of the brain revealed no acute intracranial hemorrhage, midline shift or mass effect. EKG revealed sinus rhythm with no significant ST or T wave abnormalities. White count 14.9. Hemoglobin 12.9. Platelets 146. Sodium 126. Potassium 3.9. Bicarb 26. BUN 15. Creatinine 0.68. Glucose 152. AST 148. ALT 43. Creatinine kinase 2283. He did test positive for COVID-19 infection. His initial sodium level was 118. BUN of 24 and a creatinine of 1.26. He had been seen by nephrology, urology and infectious disease. A chest x-ray was done today September 30, 2023 that revealed an elevated right hemidiaphragm and we are consulted for the same. He was sent for a sniff test however the patient was unable to perform the appropriate maneuvers due to overall condition. He is seen on consultation on the selective care unit. He is currently resting in bed. Difficult to arouse but arousable. He is on a nonrebreather mask with O2 saturation of 90%. Currently afebrile. Hemodynamically stable. He has been initiated on Decadron. Antibiotics in the form of cefepime. Saline at 50 MLS per hour. Patient was evaluated today on 10/01/2023, more awake today, more responsive, seems to be more alert, and remains on a nonrebreather mask which I have recommended to transition to high flow nasal cannula. Patient did transition to 10 L high flow nasal cannula and O2 saturation was ranging between 92 up to 96% definitely better today compared to the last couple of days. Still planning to repeat his sniff test to evaluate for right hemidiaphragm paralysis. Procalcitonin level came back elevated at 0.43, patient remains on antibiotics for presumptive right lower lobe pneumonia. WBC count today 13.9 hemoglobin 13.0.Basic metabolic profile is relatively normal. Reevaluated today on 10/02/2023, patient is on 10 L high flow nasal cannula, doing better, breathing easier, O2 saturation is in the low 90s, patient continues to have diminished breath sounds at the right base, and I believe the patient has right hemidiaphragm paralysis with right lower lobe atelectasis, possible underlying pneumonia, but I feel clinically this is not the picture. At any rate the patient is supposed to have a sniff test tomorrow, may even have to consider a CT of the chest to evaluate the right lower lobe further. Based on the sniff test, further recommendations will follow. In the meantime patient is gradually improving, feeling better, breathing easier and definitely his neurological status is significantly improved now compared to how he was few days ago WBC count is 10.2 hemoglobin is 12.3, sodium is up to 130, potassium 3.1 renal profile is normal procalcitonin level on this patient was 0.43, hence he was empirically placed on antibiotics for presumptive right lower lobe pneumonia Progress note dated October 03, 2023. The patient is seen today in room 362. He continues on a nonrebreather mask. Previously, he was on 15 L high flow oxygen. Because of saturations in the high 80s, the nurse switched him to a nonrebreather mask. Currently his saturations are in the low 90s. The patient continues on Decadron, and cefepime. He is getting saline at 50 cc an hour. His procalcitonin level is 0.43. Laboratory data includes a white count 11.3, hemoglobin 13, hematocrit 39.6, and a platelet count of 196,000. Sodium 132, potassium 3.3, chloride 97, CO2 30, BUN 15, creatinine 0.51. The patient's albumin is 2.8. AST is 101, and ALT is 53. Chest x-ray shows some basilar atelectasis or infiltrate, with an elevated right diaphragm, and possible effusion. Progress note dated October 04, 2023. 77-year-old male, seen today in room 362. The patient was initially on a nonrebreather, but saturations were only in the mid 80s. The patient was converted to Airvo, with settings of 60 L/min, with an FiO2 of 95%. His saturations then increased to 88 to 90%. The patient is not receiving any IV fluids. No new labs today. Labs from October 03 have been reviewed. Microbiologic sampling, is negative or pending. Chest x-ray reveals borderline cardiomegaly, with ongoing asymmetric elevation of the right hemidiaphragm. There is increasing patchy bibasilar atelectasis/infiltrate. Progress note dated October 05, 2023. 77-year-old male seen today in room 362. Currently, the patient is on Airvo, with settings of 60 L/min and an FiO2 of 90%. The patient is also wearing a nonrebreather mask, over the Airvo nasal cannula. The patient continues on Decadron and cefepime. We have asked for chest x-ray tomorrow. Clinically, the patient looks reasonably stable, and does not appear to be short of breath. I have asked the nurse, to call respiratory, to adjust his Airvo nasal cannula, and a nonrebreather mask. No new labs today. Objective - Vital Signs Vital signs: Vital Signs Temp 97.9 F 10/05/23 08:00 Pulse 95 10/05/23 08:00 Resp 22 10/05/23 08:00 BP 143/76 10/05/23 08:00 Pulse Ox 83 L 10/05/23 08:37 FiO2 94 10/05/23 08:37 Intake & Output 10/04/23 10/05/23 10/05/23 18:59 06:59 18:59 Intake Total 380 Output Total 1425 Balance -1045 Weight 113.852 kg Intake: IV 20 Invasive Line 3 10 Invasive Line 4 10 Oral 360 Output: Urine 1425 Other: Voiding Method Indwelling Catheter Indwelling Catheter Indwelling Catheter - Exam No acute distress, awake, currently on Airvo, as well as a nonrebreather mask. HEENT examination is grossly unremarkable. Mucous membranes are moist. No oral lesions. Neck supple. Full range of motion. No adenopathy thyromegaly or neck vein distention. Cardiovascular examination reveals regular rhythm rate. S1-S2 normal. No S3 or S4. No discernible murmur noted. Heart sounds are distant. Heart rate 95 bpm. Lungs reveal electively clear but diminished breath sounds throughout. Minimal rhonchi. No wheezes. No crackles. Saturations are documented at 89 %. Abdomen soft bowel sounds are heard. No masses or tenderness. Extremities are intact. No cyanosis clubbing or edema. Skin is without rash or lesion. Neurologic examination is brief but nonfocal. - Labs CBC & Chem 7: 10/03/23 11:12 10/04/23 15:10 Labs: Abnormal Lab Results - Last 24 Hours (Table) 10/04/23 10/04/23 Range/Units 15:10 20:06 Sodium 131 L (137-145) mmol/L Creatinine 0.61 L (0.66-1.25) mg/dL Glucose 183 H (74-99) mg/dL POC Glucose (mg/dL) 206 H (70-110) mg/dL Calcium 8.3 L (8.4-10.2) mg/dL Assessment and Plan Assessment: Acute hypoxemic respiratory failure secondary to right lower lobe atelectasis/consolidation, and possible pneumonia. Generalized weakness, likely secondary to coronavirus infection, and hyponatremia. Acute mental status changes, likely secondary to metabolic encephalopathy. Acute coronavirus infection, without evidence of coronavirus associated pneumonia. Right diaphragm elevation, and possible paresis/paralysis. Hyponatremia. Acute kidney injury. Rhabdomyolysis. History of seizure disorder. History of hypothyroidism. History of hypertension. Previous history of tobacco use. Plan: Plan dated October 03, 2023. The patient is seen today in room 362. The nurse recently changed him from 15 L high flow nasal prongs, to a nonrebreather mask. His saturations are in the low 90s. The patient continues on Decadron, and cefepime. He is also receiving saline at 50 cc an hour. His procalcitonin level was 0.43. Labs, x-rays, and medications are reviewed. We will continue to follow the patient, make recom mendations along the way. Prognosis is certainly guarded. Plan dated October 04, 2023. The patient is seen today in room 362. The patient was on a nonrebreather mask, but because of low saturations, respiratory change the patient to Airvo, with settings of 60 L/min, and an FiO2 of 95%. The patient continues on Decadron, cefepime, zinc, vitamin D3, and vitamin C. Additional recommendations and suggestions are forthcoming. The patient's overall prognosis remains guarded. Chest x-ray has been reviewed. Labs, x-rays, and medications are reviewed. Overall prognosis remains guarded. CODE STATUS should be addressed. No additional recommendations at this time. Plan dated October 05, 2023. The patient is currently on Airvo, and a nonrebreather mask. Saturations are in the high 80s, low 90s. A chest x-ray will be obtained tomorrow. I have asked the nurse to call respiratory, to adjust his Airvo nasal cannula, and nonrebreather mask, to maximize his oxygen. Labs, x-rays, medications are reviewed. The patient continues on Decadron, and cefepime. Labs, x-rays, and medications are reviewed. The prognosis is guarded. We will continue to follow the patient, make recommendations along the way. CODE STATUS should be addressed on this patient. Time with Patient: Less than 30
[2023-10-05] MEDS: FUROSEMIDE 10 MG/ML 4 ML VIAL IV STA (11:29)
--- NOTE | 2023-10-05 11:31 | P.PN ---
Subjective Progress Note Date: 10/05/23 Principal diagnosis: Reason for follow-up is COVID-19 and pneumonia Patient is a 77-year-old male with a past medical history significant for hypertension seizure disorder hypothyroidism patient has been brought into the hospital for evaluation of generalized weakness patient was noticed to be on the bathroom floor after apparently patient fell down, patient did tested positive for COVID-19, initial chest x-ray reported negative. On today's evaluation that is 10/05/2023, Patient is afebrile patient is currently requiring high flow oxygen currently 94% FiO2 the patient is awake and denies any worsening cough or sputum production no nausea vomiting no abdominal pain or diarrhea. No new labs obtained today Objective - Vital Signs Vital signs: Vital Signs Temp 97.9 F 10/05/23 08:00 Pulse 95 10/05/23 08:00 Resp 22 10/05/23 08:00 BP 143/76 10/05/23 08:00 Pulse Ox 83 L 10/05/23 08:37 FiO2 94 10/05/23 08:37 Intake & Output 10/04/23 10/05/23 10/05/23 18:59 06:59 18:59 Intake Total 380 Output Total 1425 Balance -1045 Weight 113.852 kg Intake: IV 20 Invasive Line 3 10 Invasive Line 4 10 Oral 360 Output: Urine 1425 Other: Voiding Method Indwelling Catheter Indwelling Catheter Indwelling Catheter - Exam GENERAL DESCRIPTION: An elderly male lying in bed in no distress RESPIRATORY SYSTEM: Unlabored breathing , decreased breath sounds at bases HEART: S1 S2 regular rate and rhythm , ABDOMEN: Soft , no tenderness EXTREMITIES: No edema feet - Labs CBC & Chem 7: 10/03/23 11:12 10/04/23 15:10 Labs: Abnormal Lab Results - Last 24 Hours (Table) 10/04/23 10/04/23 Range/Units 15:10 20:06 Sodium 131 L (137-145) mmol/L Creatinine 0.61 L (0.66-1.25) mg/dL Glucose 183 H (74-99) mg/dL POC Glucose (mg/dL) 206 H (70-110) mg/dL Calcium 8.3 L (8.4-10.2) mg/dL Assessment and Plan (1) COVID-19 Current Visit: Yes Status: Acute Code(s): U07.1 - COVID-19 SNOMED Code(s): 342377592 (2) Sepsis Current Visit: Yes Status: Acute Code(s): A41.9 - SEPSIS, UNSPECIFIED ORGANISM SNOMED Code(s): 08855679 (3) Pneumonia Current Visit: Yes Status: Acute Code(s): J18.9 - PNEUMONIA, UNSPECIFIED ORGANISM SNOMED Code(s): 128397294 (4) Penicillin allergy Current Visit: Yes Status: Acute Code(s): Z88.0 - ALLERGY STATUS TO PENICILLIN SNOMED Code(s): 60075690 Plan: 1patient presented to hospital generalized weakness and did have a fall source likely multifactorial. He tested positive for COVID-19 however initial chest x- ray was negative for acute infiltrate however subsequent x-ray shows worsening bibasilar infiltrate concerning for possible secondary bacterial pneumonia 2-patient still having significant hypoxemia requiring high flow oxygen however the patient is afebrile, the patient will continue with cefepime and monitor clinical course closely, prognosis guarded Dictation was produced using [employer] dictation software. please excuse any grammatical, word or spelling errors. Time with Patient: Less than 30
[2023-10-05 15:28] LABS: ALT 77 U/L (4-49); AST 92 U/L (17-59); African American GFR (CKD) >90 (>60 ml/min/1.73 sqM); Albumin 3.1 g/dL (3.5-5.0); Alkaline Phosphatase 66 U/L (38-126); Anion Gap 8 mmol/L; Blood Urea Nitrogen 22 mg/dL (9-20); C Reactive Protein 7.3 mg/dL (<1.0); Calcium 8.5 mg/dL (8.4-10.2); Carbon Dioxide 28 mmol/L (22-30); Chloride 96 mmol/L (98-107); Glucose 147 mg/dL (74-99); LDH 386 U/L (120-246); Non-African American GFR(CKD) >90 (>60 ml/min/1.73 sqM); Potassium 3.8 mmol/L (3.5-5.1); Sodium 132 mmol/L (137-145); Total Bilirubin 0.9 mg/dL (0.2-1.3); Total Protein 6.2 g/dL (6.3-8.2)
[2023-10-05 15:58] LABS: Basophils # (A) 0.1 k/uL (0-0.2); Basophils % (A) 0 %; Eosinophils % (A) 0 %; HCT 41.5 % (39.0-53.0); HGB 13.9 gm/dL (13.0-17.5); Lymphocytes % (A) 6 %; MCH 29.8 pg (25.0-35.0); MCHC 33.5 g/dL (31.0-37.0); MCV 88.9 fL (80.0-100.0); Mean Platelet Volume 8.4; Monocytes # (A) 0.9 k/uL (0-1.0); Monocytes % (A) 6 %; Neutrophils # (A) 14.1 k/uL (1.3-7.7); Neutrophils % (A) 87 %; Platelet Count 214 k/uL (150-450); RBC 4.67 m/uL (4.30-5.90); RDW 13.5 % (11.5-15.5); WBC 16.3 k/uL (3.8-10.6)
[2023-10-05 16:38] LABS: NT-Pro-B-Type Natriuretic Pept 761 pg/mL
--- NOTE | 2023-10-05 16:44 | P.PN ---
Subjective Patient is seen for follow-up for hyponatremia. Currently with indwelling Rosales catheter for urine retention. Serum sodium staying at about 130-132. Tolerating oral intake. Patient continues to be short of breath and maintained on nonrebreather currently. Status post IV Lasix yesterday. Objective - Vital Signs Vital signs: Vital Signs Temp 97.9 F 10/05/23 16:00 Pulse 82 10/05/23 16:00 Resp 16 10/05/23 16:00 BP 134/71 10/05/23 16:00 Pulse Ox 84 L 10/05/23 16:00 FiO2 91 10/05/23 15:51 Intake & Output 10/04/23 10/05/23 10/05/23 18:59 06:59 18:59 Intake Total 380 400 Output Total 1425 Balance -1045 400 Weight 113.852 kg Intake: IV 20 Invasive Line 3 10 Invasive Line 4 10 Intake, IV Titration 200 Amount Cefepime 2 gm In Sodium 200 Chloride 0.9% 100 ml @ 25 mls/hr IVPB Q8H [facility] Rx#: [id number] Oral 360 200 Output: Urine 1425 Other: Voiding Method Indwelling Catheter Indwelling Catheter Indwelling Catheter - Exam On examination patient is comfortable. No acute distress Alert oriented 3 Examination of the heart S1 and S2 Examination of the lungs his breath sounds at the bases with bilateral wheezing heard Abdomen is soft nontender Examination of lower extremity shows edema 1+ bilaterally HEEL SEAT FITTER exam grossly intact - Labs CBC & Chem 7: 10/05/23 14:46 10/05/23 14:46 Labs: Abnormal Lab Results - Last 24 Hours (Table) 10/04/23 10/05/23 10/05/23 Range/Units 20:06 14:46 14:46 WBC 16.3 H (3.8-10.6) k/uL Neutrophils # 14.1 H (1.3-7.7) k/uL Sodium 132 L (137-145) mmol/L Chloride 96 L (98-107) mmol/L BUN 22 H (9-20) mg/dL Glucose 147 H (74-99) mg/dL POC Glucose (mg/dL) 206 H (70-110) mg/dL AST 92 H (17-59) U/L ALT 77 H (4-49) U/L Lactate Dehydrogenase 386 H (120-246) U/L C-Reactive Protein 7.3 H (<1.0) mg/dL Total Protein 6.2 L (6.3-8.2) g/dL Albumin 3.1 L (3.5-5.0) g/dL Assessment and Plan Assessment: 1. Hyponatremia. Sodium level 118 on admission -131 to 132 now. TSH normal. Urine osmolality 543. Urine sodium less than 20. TSH normal. Status post IV fluids on initial admission. 2. Acute kidney injury secondary to urinary retention. Creatinine 1.26 on ad mission and resolved at 0.89. No proteinuria on UA. No hydronephrosis noted on kidney ultrasound. 3. Urinary retention status post Rosales catheter placement. On Flomax. Urology following. 4. Benign hypertension. Controlled. 5. Hypokalemia from poor intake and postobstructive diuresis. Magnesium normal. 6. Rhabdomyolysis secondary to fall. CK level trending down. Plan: Continue off of IV fluids Diurese patient Increase oral intake of protein.
[2023-10-05 18:58] LABS: Glucose,Whole Blood 122 mg/dL (70-110)
[2023-10-05 21:10] LABS: Glucose,Whole Blood 142 mg/dL (70-110)
[2023-10-05 21:12] LABS: Allen Test Performed? Yes
[2023-10-05 21:18] LABS: ABG Base Excess 7.5 mmol/L; ABG HCO3 27 mmol/L (21-25); ABG Oxygen Saturation 92.3 % (94-97); ABG PCO2 21 mmHg (35-45); ABG PH >7.70 (7.35-7.45); ABG PO2 126 mmHg (83-108); ABG TCO2 28 mmol/L (19-24)
--- NOTE | 2023-10-05 21:46 | XR ---
EXAMINATION TYPE: XR chest 1V portable DATE OF EXAM: 10/05/2023 9:19 PM CLINICAL INDICATION:Male, 77 years old with history of Resp distress; [facility] COMPARISON: Chest radiograph from 10/03/2023. TECHNIQUE: XR chest 1V portable Frontal view of the chest. FINDINGS: Lungs/Pleura: There is no evidence of pleural effusion, focal consolidation, or pneumothorax. Pulmonary vascularity: Unremarkable. Heart/mediastinum: Cardiomediastinal silhouette is unremarkable. Musculoskeletal: No acute osseous pathology. IMPRESSION: Cardiomegaly with bibasilar airspace opacities not significantly changed from prior. Correlate for ai rspace disease and/or atelectasis.
[2023-10-05] MEDS: FUROSEMIDE 10 MG/ML 4 ML VIAL IV SCH (22:14)
[2023-10-06 01:00] LABS: Glucose,Whole Blood 145 mg/dL (70-110)
--- NOTE | 2023-10-06 05:28 | P.PN ---
Subjective Progress Note Date: 10/05/23 patient is a 77-year-old gentleman past medical history significant for hypothyroidism, hypertension who presented to the ER for generalized weakness and fall. Patient was brought in by family members, apparently patient was trying to use the restroom when he lost all his strength and slumped to the gr ound. There was no complaint of any loss of consciousness. No complaint of weakness of any extremity. Family did not notice any slurred speech or facial droop. There was no complaint of fever or chills. No complaint of nausea, vomiting, abdominal pain. Patient's family tried to help him to get up but they were unable to lift him. They called EMS and they brought him to ER. Initial lab work done in the ER showed WBC 10.5, hemoglobin 15.2, platelet count 165, sodium 118, potassium 4.1, BUN 24, creatinine 1.26, plasma lactate 4.1, troponin 0.012 UA negative for any infection EKG done in the ER showed heart rate of 75, no ST segment elevation or depression seen, no T-wave inversions seen. Chest x-ray done in the ER no acute cardiopulmonary process CT head done showed no acute intracranial process Patient admitted to internal medicine service 09/29. Patient seen and examined. COVID-19 came back positive. Currently on 4 L of oxygen. Sodium this morning is 121. Still complain lethargy and weakness. Patient also diagnosed with COVID 09/30. Patient seen and examined. Blood work done this morning showed WBC 14.9, hemoglobin 12.9, platelet count 146, sodium 126, potassium 3.9, BUN 15, creatinine 0.68. States he feels much better. Shortness of breath is improved. 10/01. Patient seen and examined. Still on 15 L of oxygen via nonrebreather. States he feels better. Sodium level improved to 132, potassium 3.3, BUN 18, creatinine 0.65. Lethargy has improved. 10/02. Patient seen and examined. Currently on 8 L of oxygen via high flow nasal cannula. States he feels much better, breathing is improved, pulmonology recommended sniff test to look for right diaphragm paralysis 10/03. Patient seen and examined. Continues to be on 15 L of oxygen. Patient is not lethargic, states gets short of breath on exertion. Denies any nausea or vomiting 10/04/2023 Patient seen and evaluated in follow-up today continues to be dyspneic maintained on high flow oxygen is being transferred to Air. Per nursing staff he continues to remove his nasal cannula as well as nonrebreather and respiratory following recommending i continuing this for a few hours. Patient has noted to be COVID-positive. Sodium is slightly low at 132 potassium was 3.3 yesterday and replaced awaiting follow-up labs. Patient with prolonged hospitalization and continued weakness will likely need ECF once stabilized. 10/05/2023 Patient is seen in follow-up this morning continues on Airvo with maximum oxygen at 60/90 maintaining oxygen saturations in the 88 percentile range. Patient reports having worsening shortness of breath although appears somewhat confused at times. Discussed CODE STATUS with the patient and he wishes to remain full code. Patient is agreeable to mechanical ventilation if required. Patient continues to remove his oxygen from his face desats very quickly. Will get a chest x-ray and continue to monitor closely. Pulmonary and infectious disease following and patient is continued on cefepime with concerns of pneumonia. Patient is currently afebrile and denies chest pain or shortness of breath. Patient reports he is eating although not much of an appetite. REVIEW OF SYSTEMS: CONSTITUTIONAL: No fever, no malaise,. CARDIOVASCULAR: No chest pain, no palpitations, no syncope. PULMONARY: No reports of worsening shortness of breath, no cough GASTROINTESTINAL: No diarrhea, no nausea, no vomiting, no abdominal pain. NEUROLOGICAL: No headaches, no weakness, PHYSICAL EXAMINATION: GENERAL: The patient is alert and oriented x2. With periods of confusion. Well developed, well nourished. Obese HEENT: Pupils are round and equally reacting to light. EOMI. No scleral icterus. No conjunctival pallor. Normocephalic, atraumatic. No pharyngeal erythema. No thyromegaly. CARDIOVASCULAR: S1 and S2 muffled PULMONARY: Coarse breath sound bilaterally, no wheeze, no crackles audible ABDOMEN: Soft, obese, nontender, nondistended, normoactive bowel sounds. No palpable organomegaly. MUSCULOSKELETAL: 1+ pitting edema lower extremities bilaterally EXTREMITIES: No cyanosis, clubbing, or pedal edema. NEUROLOGICAL: Gross neurological examination did not reveal any focal deficits. Diffusely weak SKIN: No rashes. Assessment: Hyponatremia secondary to poor oral intake COVID-19 Acute hypoxic respiratory failure secondary to COVID-19, now requiring high flow Airvo Altered mental status, with toxic metabolic encephalopathy likely secondary to hypoxia as patient continues to remove oxygen mask from his face Generalized weakness Rhabdomyolysis Fall Urinary retention requiring indwelling Rosales catheter Hypothyroidism Hypertension Obesity with a BMI of 35.0 Plan: Patient is continued on high flow oxygen and with intermittent nonrebreather at 15 L and continues to be somewhat hypoxic continued on max Airvo Pulmonary and nephrology following along with infectious disease. Patient is maintained on cefepime and will continue Labs pending from this morning. Replace electrolytes per protocol as potassium was low yesterday Patient having increased confusion likely secondary to hypoxia as he keeps removing his tubing and masks from his face and desatting quickly CODE STATUS was addressed and patient wishes to remain full code and is agreeable to mechanical ventilation if needed PT/OT following awaiting to evaluate the patient once respiratory status improves Patient will likely need rehab as patient has had prolonged hospitalization and continued weakness Prognosis is guarded The impression and plan of care has been dictated by Margie Patricio, Nurse Practitioner as directed. Dr. Barr. I have performed a history and examination and MDM of this patient, discussed the same with the dictator, and agree with the dictator's assessment and plan as written ,documented as a scribe. Based on total visit time, I have performed more than 50% of the visit. Objective - Vital Signs Vital signs: Vital Signs Temp 98.2 F 10/05/23 04:00 Pulse 78 10/05/23 04:00 Resp 20 10/05/23 04:00 BP 147/71 10/05/23 04:00 Pulse Ox 83 L 10/05/23 08:37 FiO2 94 10/05/23 08:37 Intake & Output 10/04/23 10/05/23 10/05/23 18:59 06:59 18:59 Intake Total 380 Output Total 1425 Balance -1045 Weight 113.852 kg Intake: IV 20 Invasive Line 3 10 Invasive Line 4 10 Oral 360 Output: Urine 1425 Other: Voiding Method Indwelling Catheter Indwelling Catheter - Labs CBC & Chem 7: 10/05/23 14:46 10/05/23 14:46 Labs: Abnormal Lab Results - Last 24 Hours (Table) 10/04/23 10/04/23 Range/Units 15:10 20:06 Sodium 131 L (137-145) mmol/L Creatinine 0.61 L (0.66-1.25) mg/dL Glucose 183 H (74-99) mg/dL POC Glucose (mg/dL) 206 H (70-110) mg/dL Calcium 8.3 L (8.4-10.2) mg/dL
[2023-10-06 06:47] LABS: Basophils # (A) 0.1 k/uL (0-0.2); Basophils % (A) 1 %; Eosinophils % (A) 0 %; HCT 39.6 % (39.0-53.0); HGB 13.4 gm/dL (13.0-17.5); Lymphocytes # (A) 1.7 k/uL (1.0-4.8); Lymphocytes % (A) 12 %; MCH 30.4 pg (25.0-35.0); MCHC 33.8 g/dL (31.0-37.0); Mean Platelet Volume 8.5; Monocytes # (A) 0.9 k/uL (0-1.0); Monocytes % (A) 6 %; Neutrophils % (A) 80 %; Platelet Count 181 k/uL (150-450); RDW 13.3 % (11.5-15.5)
[2023-10-06 06:58] LABS: African American GFR (CKD) >90 (>60 ml/min/1.73 sqM); Anion Gap 8 mmol/L; Blood Urea Nitrogen 28 mg/dL (9-20); Calcium 8.4 mg/dL (8.4-10.2); Carbon Dioxide 29 mmol/L (22-30); Chloride 96 mmol/L (98-107); Glucose 110 mg/dL (74-99); Non-African American GFR(CKD) 86 (>60 ml/min/1.73 sqM); Potassium 3.2 mmol/L (3.5-5.1); Sodium 133 mmol/L (137-145)
--- NOTE | 2023-10-06 08:22 | XR ---
EXAMINATION TYPE: XR chest 1V portable DATE OF EXAM: 10/06/2023 Comparison: 10/05/2023 Clinical History: 77-year-old male Covid hypoxemia Findings: Asymmetric elevation right hemidiaphragm obscuring the right heart margin. Patchy mid and lower lung opacities appear similar possibly with minimal improvement on the left. Impression: 1. Patchy mid and lower lung opacities persist possibly with slight improvement on the left. 2. Similar asymmetric elevation right hemidiaphragm.
[2023-10-06] MEDS: POTASSIUM CHLORIDE ER 20 MEQ TAB.ER PO SCH (08:38)
--- NOTE | 2023-10-06 10:42 | P.PN ---
Subjective Progress Note Date: 10/06/23 Principal diagnosis: Weakness. Generalized weakness secondary to COVID-19 infection and hyponatremia with possible diaphragm paralysis and acute hypoxic respiratory failure This is a 77-year-old male patient with a history of hypertension, seizure disorder, thyroid disorder, former smoker. On September 27, 2023 the patient had gotten up to go the bathroom and slumped onto the ground. He had been reportedly laying on the ground for several hours by family were attempting to get in helping him get up but he was unable to support himself. He also had trouble with urinary incontinence. EMS was called and he was brought here for evaluation. CT scan of the brain revealed no acute intracranial hemorrhage, midline shift or mass effect. EKG revealed sinus rhythm with no significant ST or T wave abnormalities. White count 14.9. Hemoglobin 12.9. Platelets 146. Sodium 126. Potassium 3.9. Bicarb 26. BUN 15. Creatinine 0.68. Glucose 152. AST 148. ALT 43. Creatinine kinase 2283. He did test positive for COVID-19 infection. His initial sodium level was 118. BUN of 24 and a creatinine of 1.26. He had been seen by nephrology, urology and infectious disease. A chest x-ray was done today September 30, 2023 that revealed an elevated right hemidiaphragm and we are consulted for the same. He was sent for a sniff test however the patient was unable to perform the appropriate maneuvers due to overall condition. He is seen on consultation on the selective care unit. He is currently resting in bed. Difficult to arouse but arousable. He is on a nonrebreather mask with O2 saturation of 90%. Currently afebrile. Hemodynamically stable. He has been initiated on Decadron. Antibiotics in the form of cefepime. Saline at 50 MLS per hour. Patient was evaluated today on 10/01/2023, more awake today, more responsive, seems to be more alert, and remains on a nonrebreather mask which I have recommended to transition to high flow nasal cannula. Patient did transition to 10 L high flow nasal cannula and O2 saturation was ranging between 92 up to 96% definitely better today compared to the last couple of days. Still planning to repeat his sniff test to evaluate for right hemidiaphragm paralysis. Procalcitonin level came back elevated at 0.43, patient remains on antibiotics for presumptive right lower lobe pneumonia. WBC count today 13.9 hemoglobin 13.0.Basic metabolic profile is relatively normal. Reevaluated today on 10/02/2023, patient is on 10 L high flow nasal cannula, doing better, breathing easier, O2 saturation is in the low 90s, patient continues to have diminished breath sounds at the right base, and I believe the patient has right hemidiaphragm paralysis with right lower lobe atelectasis, possible underlying pneumonia, but I feel clinically this is not the picture. At any rate the patient is supposed to have a sniff test tomorrow, may even have to consider a CT of the chest to evaluate the right lower lobe further. Based on the sniff test, further recommendations will follow. In the meantime patient is gradually improving, feeling better, breathing easier and definitely his neurological status is significantly improved now compared to how he was few days ago WBC count is 10.2 hemoglobin is 12.3, sodium is up to 130, potassium 3.1 renal profile is normal procalcitonin level on this patient was 0.43, hence he was empirically placed on antibiotics for presumptive right lower lobe pneumonia Progress note dated October 03, 2023. The patient is seen today in room 362. He continues on a nonrebreather mask. Previously, he was on 15 L high flow oxygen. Because of saturations in the high 80s, the nurse switched him to a nonrebreather mask. Currently his saturations are in the low 90s. The patient continues on Decadron, and cefepime. He is getting saline at 50 cc an hour. His procalcitonin level is 0.43. Laboratory data includes a white count 11.3, hemoglobin 13, hematocrit 39.6, and a platelet count of 196,000. Sodium 132, potassium 3.3, chloride 97, CO2 30, BUN 15, creatinine 0.51. The patient's albumin is 2.8. AST is 101, and ALT is 53. Chest x-ray shows some basilar atelectasis or infiltrate, with an elevated right diaphragm, and possible effusion. Progress note dated October 04, 2023. 77-year-old male, seen today in room 362. The patient was initially on a nonrebreather, but saturations were only in the mid 80s. The patient was converted to Airvo, with settings of 60 L/min, with an FiO2 of 95%. His saturations then increased to 88 to 90%. The patient is not receiving any IV fluids. No new labs today. Labs from October 03 have been reviewed. Microbiologic sampling, is negative or pending. Chest x-ray reveals borderline cardiomegaly, with ongoing asymmetric elevation of the right hemidiaphragm. There is increasing patchy bibasilar atelectasis/infiltrate. Progress note dated October 05, 2023. 77-year-old male seen today in room 362. Currently, the patient is on Airvo, with settings of 60 L/min and an FiO2 of 90%. The patient is also wearing a nonrebreather mask, over the Airvo nasal cannula. The patient continues on Decadron and cefepime. We have asked for chest x-ray tomorrow. Clinically, the patient looks reasonably stable, and does not appear to be short of breath. I have asked the nurse, to call respiratory, to adjust his Airvo nasal cannula, and a nonrebreather mask. No new labs today. Progress note dated October 06, 2023. 77-year-old male, seen today in room 256. The patient's respiratory status declined through the night, and the patient was transferred down to the intensive care unit. The patient had blood gases, showing a pO2 of 126, pCO2 of 21, and a pH of 7.70. This blood gas is consistent with a mixed respiratory and metabolic alkalosis. The patient did test positive initially for coronavirus. He is currently on Airvo, with settings of 60 L/min and an FiO2 of 90%. In addition, he is getting a nonrebreather mask. The patient is not receiving any IV fluids. Saturations are in the low to mid 90s. The patient continues on cefepime. Labs include a white count 15, hemoglobin 13.4, hematocrit 39.6, and a platelet count of 181,000. Sodium 133, potassium 3.2, chlorides 96, CO2 29, BUN 28, creatinine 0.81. Glucose is 110. Calcium is 8.4. Chest x-ray shows some patchy mid and lower lung opacities, either the same from the previous x- ray, or mildly improved. There is also elevation of the right diaphragm. Objective - Vital Signs Vital signs: Vital Signs Temp 98.6 F 10/06/23 08:00 Pulse 105 H 10/06/23 10:00 Resp 15 10/06/23 10:00 BP 133/93 10/06/23 10:00 Pulse Ox 91 L 10/06/23 10:00 FiO2 100 10/06/23 10:00 Intake & Output 10/05/23 10/06/23 10/06/23 18:59 06:59 18:59 Intake Total 400 Output Total 230 102 Balance 400 -230 -102 Intake: Intake, IV Titration 200 Amount Cefepime 2 gm In Sodium 200 Chloride 0.9% 100 ml @ 25 mls/hr IVPB Q8H [facility] Rx#: [id number] Oral 200 Output: Urine 230 102 Other: Voiding Method Indwelling Catheter Indwelling Catheter Indwelling Catheter # Bowel Movements 1 - Exam No acute distress, awake, currently on Airvo, as well as a nonrebreather mask. HEENT examination is grossly unremarkable. Mucous membranes are moist. No oral lesions. Neck supple. Full range of motion. No adenopathy thyromegaly or neck vein distention. Cardiovascular examination reveals regular rhythm rate. S1-S2 normal. No S3 or S4. No discernible murmur noted. Heart sounds are distant. Heart rate 105 bpm. Lungs reveal electively clear but diminished breath sounds throughout. Minimal rhonchi. No wheezes. No crackles. Saturations are documented at 93 %. Abdomen soft bowel sounds are heard. No masses or tenderness. Extremities are intact. No cyanosis clubbing or edema. Skin is without rash or lesion. Neurologic examination is brief but nonfocal. - Labs CBC & Chem 7: 10/06/23 06:21 10/06/23 06:21 Labs: Abnormal Lab Results - Last 24 Hours (Table) 10/05/23 10/05/23 10/05/23 Range/Units 14:46 14:46 18:57 WBC 16.3 H (3.8-10.6) k/uL Neutrophils # 14.1 H (1.3-7.7) k/uL ABG pH (7.35-7.45) ABG pCO2 (35-45) mmHg ABG pO2 (83-108) mmHg ABG HCO3 (21-25) mmol/L ABG Total CO2 (19-24) mmol/L ABG O2 Saturation (94-97) % Sodium 132 L (137-145) mmol/L Potassium (3.5-5.1) mmol/L Chloride 96 L (98-107) mmol/L BUN 22 H (9-20) mg/dL Glucose 147 H (74-99) mg/dL POC Glucose (mg/dL) 122 H (70-110) mg/dL Ferritin 946.0 H (22.0-322.0) ng/mL AST 92 H (17-59) U/L ALT 77 H (4-49) U/L Lactate Dehydrogenase 386 H (120-246) U/L C-Reactive Protein 7.3 H (<1.0) mg/dL Total Protein 6.2 L (6.3-8.2) g/dL Albumin 3.1 L (3.5-5.0) g/dL 10/05/23 10/05/23 10/06/23 Range/Units 20:50 21:09 00:59 WBC (3.8-10.6) k/uL Neutrophils # (1.3-7.7) k/uL ABG pH >7.70 H* (7.35-7.45) ABG pCO2 21 L (35-45) mmHg ABG pO2 126 H (83-108) mmHg ABG HCO3 27 H (21-25) mmol/L ABG Total CO2 28 H (19-24) mmol/L ABG O2 Saturation 92.3 L (94-97) % Sodium (137-145) mmol/L Potassium (3.5-5.1) mmol/L Chloride (98-107) mmol/L BUN (9-20) mg/dL Glucose (74-99) mg/dL POC Glucose (mg/dL) 142 H 145 H (70-110) mg/dL Ferritin (22.0-322.0) ng/mL AST (17-59) U/L ALT (4-49) U/L Lactate Dehydrogenase (120-246) U/L C-Reactive Protein (<1.0) mg/dL Total Protein (6.3-8.2) g/dL Albumin (3.5-5.0) g/dL 10/06/23 10/06/23 Range/Units 06:21 06:21 WBC 15.0 H (3.8-10.6) k/uL Neutrophils # 12.0 H (1.3-7.7) k/uL ABG pH (7.35-7.45) ABG pCO2 (35-45) mmHg ABG pO2 (83-108) mmHg ABG HCO3 (21-25) mmol/L ABG Total CO2 (19-24) mmol/L ABG O2 Saturation (94-97) % Sodium 133 L (137-145) mmol/L Potassium 3.2 L (3.5-5.1) mmol/L Chloride 96 L (98-107) mmol/L BUN 28 H (9-20) mg/dL Glucose 110 H (74-99) mg/dL POC Glucose (mg/dL) (70-110) mg/dL Ferritin (22.0-322.0) ng/mL AST (17-59) U/L ALT (4-49) U/L Lactate Dehydrogenase (120-246) U/L C-Reactive Protein (<1.0) mg/dL Total Protein (6.3-8.2) g/dL Albumin (3.5-5.0) g/dL Assessment and Plan Assessment: Acute hypoxemic respiratory failure secondary to right lower lobe a telectasis/consolidation, and possible pneumonia. Generalized weakness, likely secondary to coronavirus infection, and hyponatremia. Acute mental status changes, likely secondary to metabolic encephalopathy. Acute coronavirus infection, without evidence of coronavirus associated pneumonia. Right diaphragm elevation, and possible paresis/paralysis. Hyponatremia. Acute kidney injury. Rhabdomyolysis. History of seizure disorder. History of hypothyroidism. History of hypertension. Previous history of tobacco use. Plan: Plan dated October 03, 2023. The patient is seen today in room 362. The nurse recently changed him from 15 L high flow nasal prongs, to a nonrebreather mask. His saturations are in the low 90s. The patient continues on Decadron, and cefepime. He is also receiving saline at 50 cc an hour. His procalcitonin level was 0.43. Labs, x-rays, and medications are reviewed. We will continue to follow the patient, make recommendations along the way. Prognosis is certainly guarded. Plan dated October 04, 2023. The patient is seen today in room 362. The patient was on a nonrebreather mask, but because of low saturations, respiratory change the patient to Airvo, with settings of 60 L/min, and an FiO2 of 95%. The patient continues on Decadron, cefepime, zinc, vitamin D3, and vitamin C. Additional recommendations and suggestions are forthcoming. The patient's overall prognosis remains guarded. Chest x-ray has been reviewed. Labs, x-rays, and medications are reviewed. Overall prognosis remains guarded. CODE STATUS should be addressed. No additional recommendations at this time. Plan dated October 05, 2023. The patient is currently on Airvo, and a nonrebreather mask. Saturations are in the high 80s, low 90s. A chest x-ray will be obtained tomorrow. I have asked the nurse to call respiratory, to adjust his Airvo nasal cannula, and nonrebreather mask, to maximize his oxygen. Labs, x-rays, medications are reviewed. The patient continues on Decadron, and cefepime. Labs, x-rays, and medications are reviewed. The prognosis is guarded. We will continue to follow the patient, make recommendations along the way. CODE STATUS should be addressed on this patient. Plan dated October 06, 2023. The patient's respiratory status declined overnight, and he was transferred down to the intensive care unit. I was notified, by the nighttime nurse, about the rapid response team, and, I told them, to transfer the patient to the ICU, should the situation declined further. He is currently on Airvo device, at 60 L/min, with an FiO2 of 90%. In addition, he is on a nonrebreather mask. He continues on appropriate medications, including cefepime, Decadron, and, I will add some inhalers. Additional recommendations and suggestions are forthcoming. Prognosis is guarded. We will continue to follow the patient, and make re commendations. I attempted to have a conversation with the patient today about CODE STATUS, but he really could not make a decision. Time with Patient: Greater than 30
[2023-10-06] MEDS: ALBUTEROL HFA INHALER INHALATION SCH (12:04)
[2023-10-06 12:13] LABS: Glucose,Whole Blood 154 mg/dL (70-110)
[2023-10-06] MEDS: POTASSIUM CHLORIDE ER 20 MEQ TAB.ER PO STA (12:37)
--- NOTE | 2023-10-06 13:28 | P.PN ---
Subjective Patient is seen for follow-up for hyponatremia. Currently with indwelling Rosales catheter for urine retention. Serum sodium staying at about 130-132. Tolerating oral intake. Patient was transferred to the ICU due to shortness of breath. He is currently maintained on nonrebreather. Hemodynamically stable Currently being diuresed. Sodium was 133 today. Objective - Vital Signs Vital signs: Vital Signs Temp 98.1 F 10/06/23 12:00 Pulse 109 H 10/06/23 13:00 Resp 20 10/06/23 13:00 BP 150/91 10/06/23 13:00 Pulse Ox 94 L 10/06/23 13:00 FiO2 93 10/06/23 11:59 Intake & Output 10/05/23 10/06/23 10/06/23 18:59 06:59 18:59 Intake Total 400 Output Total 230 602 Balance 400 -230 -602 Intake: Intake, IV Titration 200 Amount Cefepime 2 gm In Sodium 200 Chloride 0.9% 100 ml @ 25 mls/hr IVPB Q8H [facility] Rx#: [id number] Oral 200 Output: Urine 230 602 Other: Voiding Method Indwelling Catheter Indwelling Catheter Indwelling Catheter # Bowel Movements 1 - Exam On examination patient is comfortable. No acute distress Alert oriented 3 Examination of the heart S1 and S2 Examination of the lungs his breath sounds at the bases with bilateral wheezing heard Abdomen is soft nontender Examination of lower extremity shows edema 1+ bilaterally AUTOCUTTER exam grossly intact - Labs CBC & Chem 7: 10/06/23 06:21 10/06/23 06:21 Labs: Abnormal Lab Results - Last 24 Hours (Table) 10/05/23 10/05/23 10/05/23 Range/Units 14:46 14:46 18:57 WBC 16.3 H (3.8-10.6) k/uL Neutrophils # 14.1 H (1.3-7.7) k/uL ABG pH (7.35-7.45) ABG pCO2 (35-45) mmHg ABG pO2 (83-108) mmHg ABG HCO3 (21-25) mmol/L ABG Total CO2 (19-24) mmol/L ABG O2 Saturation (94-97) % Sodium 132 L (137-145) mmol/L Potassium (3.5-5.1) mmol/L Chloride 96 L (98-107) mmol/L BUN 22 H (9-20) mg/dL Glucose 147 H (74-99) mg/dL POC Glucose (mg/dL) 122 H (70-110) mg/dL Ferritin 946.0 H (22.0-322.0) ng/mL AST 92 H (17-59) U/L ALT 77 H (4-49) U/L Lactate Dehydrogenase 386 H (120-246) U/L C-Reactive Protein 7.3 H (<1.0) mg/dL Total Protein 6.2 L (6.3-8.2) g/dL Albumin 3.1 L (3.5-5.0) g/dL 10/05/23 10/05/23 10/06/23 Range/Units 20:50 21:09 00:59 WBC (3.8-10.6) k/uL Neutrophils # (1.3-7.7) k/uL ABG pH >7.70 H* (7.35-7.45) ABG pCO2 21 L (35-45) mmHg ABG pO2 126 H (83-108) mmHg ABG HCO3 27 H (21-25) mmol/L ABG Total CO2 28 H (19-24) mmol/L ABG O2 Saturation 92.3 L (94-97) % Sodium (137-145) mmol/L Potassium (3.5-5.1) mmol/L Chloride (98-107) mmol/L BUN (9-20) mg/dL Glucose (74-99) mg/dL POC Glucose (mg/dL) 142 H 145 H (70-110) mg/dL Ferritin (22.0-322.0) ng/mL AST (17-59) U/L ALT (4-49) U/L Lactate Dehydrogenase (120-246) U/L C-Reactive Protein (<1.0) mg/dL Total Protein (6.3-8.2) g/dL Albumin (3.5-5.0) g/dL 10/06/23 10/06/23 10/06/23 Range/Units 06:21 06:21 12:11 WBC 15.0 H (3.8-10.6) k/uL Neutrophils # 12.0 H (1.3-7.7) k/uL ABG pH (7.35-7.45) ABG pCO2 (35-45) mmHg ABG pO2 (83-108) mmHg ABG HCO3 (21-25) mmol/L ABG Total CO2 (19-24) mmol/L ABG O2 Saturation (94-97) % Sodium 133 L (137-145) mmol/L Potassium 3.2 L (3.5-5.1) mmol/L Chloride 96 L (98-107) mmol/L BUN 28 H (9-20) mg/dL Glucose 110 H (74-99) mg/dL POC Glucose (mg/dL) 154 H (70-110) mg/dL Ferritin (22.0-322.0) ng/mL AST (17-59) U/L ALT (4-49) U/L Lactate Dehydrogenase (120-246) U/L C-Reactive Protein (<1.0) mg/dL Total Protein (6.3-8.2) g/dL Albumin (3.5-5.0) g/dL Assessment and Plan Assessment: 1. Hyponatremia. Sodium level 118 on admission -131 to 132 now. TSH normal. Urine osmolality 543. Urine sodium less than 20. TSH normal. Status post IV fluids on initial admission. Currently hypervolemic and being diuresed. 2. Acute kidney injury secondary to urinary retention. Creatinine 1.26 on admission and resolved at 0.89. No proteinuria on UA. No hydronephrosis noted on kidney ultrasound. 3. Urinary retention status post Rosales catheter placement. On Flomax. Urology following. 4. Benign hypertension. Controlled. 5. Hypokalemia from poor intake and postobstructive diuresis. Magnesium normal. 6. Rhabdomyolysis secondary to fall. CK level trending down. Plan: Continue with IV Lasix Replace potassium Repeat labs in a.m. Increase oral intake of protein.
--- NOTE | 2023-10-06 15:23 | P.PN ---
Subjective Progress Note Date: 10/06/23 Principal diagnosis: Reason for follow-up is COVID-19 and pneumonia Patient is a 77-year-old male with a past medical history significant for hypertension seizure disorder hypothyroidism patient has been brought into the hospital for evaluation of generalized weakness patient was noticed to be on the bathroom floor after apparently patient fell down, patient did tested positive for COVID-19, initial chest x-ray reported negative. On today's evaluation that is 10/06/2023,the patient did have worsening of his respiratory status requiring transfer to the ICU patient remains to be afebrile patient has been on nonrebreather and high flow oxygen currently on 90% FiO2. Denies any chest pain no worsening cough or sputum production no abdominal pain and no diarrhea. Patient white count is down to 15,000, creatinine 0.81 Objective - Vital Signs Vital signs: Vital Signs Temp 98.6 F 10/06/23 08:00 Pulse 105 H 10/06/23 11:00 Resp 29 H 10/06/23 11:00 BP 125/87 10/06/23 11:00 Pulse Ox 95 10/06/23 11:00 FiO2 90 10/06/23 11:00 Intake & Output 10/05/23 10/06/23 10/06/23 18:59 06:59 18:59 Intake Total 400 Output Total 230 102 Balance 400 -230 -102 Intake: Intake, IV Titration 200 Amount Cefepime 2 gm In Sodium 200 Chloride 0.9% 100 ml @ 25 mls/hr IVPB Q8H [facility] Rx#: [id number] Oral 200 Output: Urine 230 102 Other: Voiding Method Indwelling Catheter Indwelling Catheter Indwelling Catheter # Bowel Movements 1 - Exam GENERAL DESCRIPTION: An elderly male lying in bed in no distress RESPIRATORY SYSTEM: Unlabored breathing , decreased breath sounds at bases HEART: S1 S2 regular rate and rhythm , ABDOMEN: Soft , no tenderness EXTREMITIES: No edema feet - Labs CBC & Chem 7: 10/06/23 06:21 10/06/23 06:21 Labs: Abnormal Lab Results - Last 24 Hours (Table) 10/05/23 10/05/23 10/05/23 Range/Units 14:46 14:46 18:57 WBC 16.3 H (3.8-10.6) k/uL Neutrophils # 14.1 H (1.3-7.7) k/uL ABG pH (7.35-7.45) ABG pCO2 (35-45) mmHg ABG pO2 (83-108) mmHg ABG HCO3 (21-25) mmol/L ABG Total CO2 (19-24) mmol/L ABG O2 Saturation (94-97) % Sodium 132 L (137-145) mmol/L Potassium (3.5-5.1) mmol/L Chloride 96 L (98-107) mmol/L BUN 22 H (9-20) mg/dL Glucose 147 H (74-99) mg/dL POC Glucose (mg/dL) 122 H (70-110) mg/dL Ferritin 946.0 H (22.0-322.0) ng/mL AST 92 H (17-59) U/L ALT 77 H (4-49) U/L Lactate Dehydrogenase 386 H (120-246) U/L C-Reactive Protein 7.3 H (<1.0) mg/dL Total Protein 6.2 L (6.3-8.2) g/dL Albumin 3.1 L (3.5-5.0) g/dL 10/05/23 10/05/23 10/06/23 Range/Units 20:50 21:09 00:59 WBC (3.8-10.6) k/uL Neutrophils # (1.3-7.7) k/uL ABG pH >7.70 H* (7.35-7.45) ABG pCO2 21 L (35-45) mmHg ABG pO2 126 H (83-108) mmHg ABG HCO3 27 H (21-25) mmol/L ABG Total CO2 28 H (19-24) mmol/L ABG O2 Saturation 92.3 L (94-97) % Sodium (137-145) mmol/L Potassium (3.5-5.1) mmol/L Chloride (98-107) mmol/L BUN (9-20) mg/dL Glucose (74-99) mg/dL POC Glucose (mg/dL) 142 H 145 H (70-110) mg/dL Ferritin (22.0-322.0) ng/mL AST (17-59) U/L ALT (4-49) U/L Lactate Dehydrogenase (120-246) U/L C-Reactive Protein (<1.0) mg/dL Total Protein (6.3-8.2) g/dL Albumin (3.5-5.0) g/dL 10/06/23 10/06/23 Range/Units 06:21 06:21 WBC 15.0 H (3.8-10.6) k/uL Neutrophils # 12.0 H (1.3-7.7) k/uL ABG pH (7.35-7.45) ABG pCO2 (35-45) mmHg ABG pO2 (83-108) mmHg ABG HCO3 (21-25) mmol/L ABG Total CO2 (19-24) mmol/L ABG O2 Saturation (94-97) % Sodium 133 L (137-145) mmol/L Potassium 3.2 L (3.5-5.1) mmol/L Chloride 96 L (98-107) mmol/L BUN 28 H (9-20) mg/dL Glucose 110 H (74-99) mg/dL POC Glucose (mg/dL) (70-110) mg/dL Ferritin (22.0-322.0) ng/mL AST (17-59) U/L ALT (4-49) U/L Lactate Dehydrogenase (120-246) U/L C-Reactive Protein (<1.0) mg/dL Total Protein (6.3-8.2) g/dL Albumin (3.5-5.0) g/dL Assessment and Plan (1) COVID-19 Current Visit: Yes Status: Acute Code(s): U07.1 - COVID-19 SNOMED Code(s): 762151080 (2) Sepsis Current Visit: Yes Status: Acute Code(s): A41.9 - SEPSIS, UNSPECIFIED ORGANISM SNOMED Code(s): 60976990 (3) Pneumonia Current Visit: Yes Status: Acute Code(s): J18.9 - PNEUMONIA, UNSPECIFIED ORGANISM SNOMED Code(s): 358588824 (4) Penicillin allergy Current Visit: Yes Status: Acute Code(s): Z88.0 - ALLERGY STATUS TO PENICILLIN SNOMED Code(s): 34524191 Plan: 1patient presented to hospital generalized weakness and did have a fall source likely multifactorial. He tested positive for COVID-19 however initial chest x- ray was negative for acute infiltrate however subsequent x-ray shows worsening bibasilar infiltrate concerning for possible secondary bacterial pneumonia 2-patient has been transferred to ICU because of worsening hypoxemia, the patient remains to be afebrile and white count is trending down, the patient will continue with cefepime and monitor clinical course closely Dictation was produced using [employer] dictation software. please excuse any grammatical, word or spelling errors. Time with Patient: Less than 30
[2023-10-06 20:09] LABS: Glucose,Whole Blood 175 mg/dL (70-110)
[2023-10-06] MEDS: SYMBICORT 160-4.5 MCG INHALER INHALATION SCH (20:14)
[2023-10-06] MEDS: FAMOTIDINE 20 MG TAB PO SCH (21:22)
--- NOTE | 2023-10-06 22:16 | P.PN ---
Subjective Progress Note Date: 10/06/23 patient is a 77-year-old gentleman past medical history significant for hypothyroidism, hypertension who presented to the ER for generalized weakness and fall. Patient was brought in by family members, apparently patient was trying to use the restroom when he lost all his strength and slumped to the gr ound. There was no complaint of any loss of consciousness. No complaint of weakness of any extremity. Family did not notice any slurred speech or facial droop. There was no complaint of fever or chills. No complaint of nausea, vomiting, abdominal pain. Patient's family tried to help him to get up but they were unable to lift him. They called EMS and they brought him to ER. Initial lab work done in the ER showed WBC 10.5, hemoglobin 15.2, platelet count 165, sodium 118, potassium 4.1, BUN 24, creatinine 1.26, plasma lactate 4.1, troponin 0.012 UA negative for any infection EKG done in the ER showed heart rate of 75, no ST segment elevation or depression seen, no T-wave inversions seen. Chest x-ray done in the ER no acute cardiopulmonary process CT head done showed no acute intracranial process Patient admitted to internal medicine service 09/29. Patient seen and examined. COVID-19 came back positive. Currently on 4 L of oxygen. Sodium this morning is 121. Still complain lethargy and weakness. Patient also diagnosed with COVID 09/30. Patient seen and examined. Blood work done this morning showed WBC 14.9, hemoglobin 12.9, platelet count 146, sodium 126, potassium 3.9, BUN 15, creatinine 0.68. States he feels much better. Shortness of breath is improved. 10/01. Patient seen and examined. Still on 15 L of oxygen via nonrebreather. States he feels better. Sodium level improved to 132, potassium 3.3, BUN 18, creatinine 0.65. Lethargy has improved. 10/02. Patient seen and examined. Currently on 8 L of oxygen via high flow nasal cannula. States he feels much better, breathing is improved, pulmonology recommended sniff test to look for right diaphragm paralysis 10/03. Patient seen and examined. Continues to be on 15 L of oxygen. Patient is not lethargic, states gets short of breath on exertion. Denies any nausea or vomiting 10/04/2023 Patient seen and evaluated in follow-up today continues to be dyspneic maintained on high flow oxygen is being transferred to Airvo. Per nursing staff he continues to remove his nasal cannula as well as nonrebreather and respiratory following recommending i continuing this for a few hours. Patient has noted to be COVID-positive. Sodium is slightly low at 132 potassium was 3.3 yesterday and replaced awaiting follow-up labs. Patient with prolonged hospitalization and continued weakness will likely need ECF once stabilized. 10/05/2023 Patient is seen in follow-up this morning continues on Airvo with maximum oxygen at 60/90 maintaining oxygen saturations in the 88 percentile range. Patient reports having worsening shortness of breath although appears somewhat confused at times. Discussed CODE STATUS with the patient and he wishes to remain full code. Patient is agreeable to mechanical ventilation if required. Patient continues to remove his oxygen from his face desats very quickly. Will get a chest x-ray and continue to monitor closely. Pulmonary and infectious disease following and patient is continued on cefepime with concerns of pneumonia. Patient is currently afebrile and denies chest pain or shortness of breath. Patient reports he is eating although not much of an appetite. 10/06/2023 Patient is seen in follow-up today was transferred to the ICU for respiratory decline per nursing staff as patient continued to have respiratory distress and low oxygen saturations becoming more hypoxic and confused. Patient is continued on Airvo max 60/90 with continued intermittent nonrebreather use. Patient is continued on steroids along with inhalers and pulmonary is following closely. Patient is afebrile with no reported chest pain or shortness of breath. Patient reports to tolerating diet although appears not to be eating very much at all. REVIEW OF SYSTEMS: CONSTITUTIONAL: No fever, no malaise,. CARDIOVASCULAR: No chest pain, no palpitations, no syncope. PULMONARY: No reports of worsening shortness of breath, no cough GASTROINTESTINAL: No diarrhea, no nausea, no vomiting, no abdominal pain. NEUROLOGICAL: No headaches, no weakness PHYSICAL EXAMINATION: GENERAL: The patient is alert and oriented x2. With periods of confusion. Well developed, well nourished. Obese HEENT: Pupils are round and equally reacting to light. EOMI. No scleral icterus. No conjunctival pallor. Normocephalic, atraumatic. No pharyngeal erythema. No thyromegaly. CARDIOVASCULAR: S1 and S2 muffled PULMONARY: Coarse breath sound bilaterally, no wheeze, no crackles audible ABDOMEN: Soft, obese, nontender, nondistended, normoactive bowel sounds. No palpable organomegaly. MUSCULOSKELETAL: 1+ pitting edema lower extremities bilaterally EXTREMITIES: No cyanosis, clubbing, or pedal edema. NEUROLOGICAL: Gross neurological examination did not reveal any focal deficits. Diffusely weak SKIN: No rashes. Assessment: Hyponatremia secondary to poor oral intake COVID-19 Acute hypoxic respiratory failure secondary to COVID-19, now requiring high flow Airvo Altered mental status, with toxic metabolic encephalopathy likely secondary to hypoxia as patient continues to remove oxygen mask from his face Generalized weakness Rhabdomyolysis Fall Urinary retention requiring indwelling Rosales catheter Hypothyroidism Hypertension Obesity with a BMI of 35.0 Plan: Patient is continued on high flow oxygen and with intermittent nonrebreather at 15 L and continues to be somewhat hypoxic continued on max Airvo. Patient had respiratory decline overnight with nursing reporting continued low oxygen saturations into the low 80s and removing the Airvo and a team was called and patient was brought to the ICU for closer monitoring. Pulmonary and nephrology following along with infectious disease. Patient is maintained on cefepime and will continue Patient having increased confusion likely secondary to hypoxia as he keeps removing his tubing and masks from his face and desatting quickly CODE STATUS was addressed and patient wishes to remain full code and is agreeable to mechanical ventilation if needed PT/OT following awaiting to evaluate the patient once respiratory status imp roves Patient will likely need rehab as patient has had prolonged hospitalization and continued weakness Prognosis is guarded The impression and plan of care has been dictated by Margie Patricio, Nurse Practitioner as directed. Dr. Barr. I have performed a history and examination and MDM of this patient, discussed the same with the dictator, and agree with the dictator's assessment and plan as written ,documented as a scribe. Based on total visit time, I have performed more than 50% of the visit. Objective - Vital Signs Vital signs: Vital Signs Temp 98.6 F 10/06/23 08:00 Pulse 101 H 10/06/23 09:00 Resp 22 10/06/23 09:00 BP 140/79 10/06/23 09:00 Pulse Ox 92 L 10/06/23 09:00 FiO2 95 10/06/23 08:11 Intake & Output 10/05/23 10/06/23 10/06/23 18:59 06:59 18:59 Intake Total 400 Output Total 230 102 Balance 400 -230 -102 Intake: Intake, IV Titration 200 Amount Cefepime 2 gm In Sodium 200 Chloride 0.9% 100 ml @ 25 mls/hr IVPB Q8H [facility] Rx#: [id number] Oral 200 Output: Urine 230 102 Other: Voiding Method Indwelling Catheter Indwelling Catheter # Bowel Movements 1 - Labs CBC & Chem 7: 10/06/23 06:21 10/06/23 06:21 Labs: Abnormal Lab Results - Last 24 Hours (Table) 10/05/23 10/05/23 10/05/23 Range/Units 14:46 14:46 18:57 WBC 16.3 H (3.8-10.6) k/uL Neutrophils # 14.1 H (1.3-7.7) k/uL ABG pH (7.35-7.45) ABG pCO2 (35-45) mmHg ABG pO2 (83-108) mmHg ABG HCO3 (21-25) mmol/L ABG Total CO2 (19-24) mmol/L ABG O2 Saturation (94-97) % Sodium 132 L (137-145) mmol/L Potassium (3.5-5.1) mmol/L Chloride 96 L (98-107) mmol/L BUN 22 H (9-20) mg/dL Glucose 147 H (74-99) mg/dL POC Glucose (mg/dL) 122 H (70-110) mg/dL Ferritin 946.0 H (22.0-322.0) ng/mL AST 92 H (17-59) U/L ALT 77 H (4-49) U/L Lactate Dehydrogenase 386 H (120-246) U/L C-Reactive Protein 7.3 H (<1.0) mg/dL Total Protein 6.2 L (6.3-8.2) g/dL Albumin 3.1 L (3.5-5.0) g/dL 10/05/23 10/05/23 10/06/23 Range/Units 20:50 21:09 00:59 WBC (3.8-10.6) k/uL Neutrophils # (1.3-7.7) k/uL ABG pH >7.70 H* (7.35-7.45) ABG pCO2 21 L (35-45) mmHg ABG pO2 126 H (83-108) mmHg ABG HCO3 27 H (21-25) mmol/L ABG Total CO2 28 H (19-24) mmol/L ABG O2 Saturation 92.3 L (94-97) % Sodium (137-145) mmol/L Potassium (3.5-5.1) mmol/L Chloride (98-107) mmol/L BUN (9-20) mg/dL Glucose (74-99) mg/dL POC Glucose (mg/dL) 142 H 145 H (70-110) mg/dL Ferritin (22.0-322.0) ng/mL AST (17-59) U/L ALT (4-49) U/L Lactate Dehydrogenase (120-246) U/L C-Reactive Protein (<1.0) mg/dL Total Protein (6.3-8.2) g/dL Albumin (3.5-5.0) g/dL 10/06/23 10/06/23 Range/Units 06:21 06:21 WBC 15.0 H (3.8-10.6) k/uL Neutrophils # 12.0 H (1.3-7.7) k/uL ABG pH (7.35-7.45) ABG pCO2 (35-45) mmHg ABG pO2 (83-108) mmHg ABG HCO3 (21-25) mmol/L ABG Total CO2 (19-24) mmol/L ABG O2 Saturation (94-97) % Sodium 133 L (137-145) mmol/L Potassium 3.2 L (3.5-5.1) mmol/L Chloride 96 L (98-107) mmol/L BUN 28 H (9-20) mg/dL Glucose 110 H (74-99) mg/dL POC Glucose (mg/dL) (70-110) mg/dL Ferritin (22.0-322.0) ng/mL AST (17-59) U/L ALT (4-49) U/L Lactate Dehydrogenase (120-246) U/L C-Reactive Protein (<1.0) mg/dL Total Protein (6.3-8.2) g/dL Albumin (3.5-5.0) g/dL
[2023-10-07 05:00] LABS: HCT 37.9 % (39.0-53.0); HGB 12.4 gm/dL (13.0-17.5); MCH 29.2 pg (25.0-35.0); MCHC 32.8 g/dL (31.0-37.0); Mean Platelet Volume 9.1; Platelet Count 178 k/uL (150-450); RBC 4.26 m/uL (4.30-5.90); RDW 13.6 % (11.5-15.5); WBC 15.7 k/uL (3.8-10.6)
[2023-10-07 05:22] LABS: African American GFR (CKD) >90 (>60 ml/min/1.73 sqM); Anion Gap 7 mmol/L; Blood Urea Nitrogen 32 mg/dL (9-20); Calcium 8.4 mg/dL (8.4-10.2); Carbon Dioxide 29 mmol/L (22-30); Chloride 98 mmol/L (98-107); Glucose 132 mg/dL (74-99); Non-African American GFR(CKD) 87 (>60 ml/min/1.73 sqM); Potassium 3.8 mmol/L (3.5-5.1); Sodium 134 mmol/L (137-145)
[2023-10-07 06:32] LABS: Glucose,Whole Blood 141 mg/dL (70-110)
[2023-10-07] MEDS: POTASSIUM CHLORIDE ER 20 MEQ TAB.ER PO SCH (06:45)
--- NOTE | 2023-10-07 08:49 | XR ---
EXAMINATION TYPE: XR chest 1V portable DATE OF EXAM: 10/07/2023 Comparison: 10/06/2023 Clinical History: 77-year-old male covid, high O2 demand Ongoing asymmetric elevation right hemidiaphragm obscuring the right heart margin. Patchy airspace op acities in the mid and lower lungs remain without significant change. Impression: Similar patchy infiltrates in the mid and lower lungs along with asymmetric elevation right hemidiaph ragm.
--- NOTE | 2023-10-07 10:27 | P.PN ---
Subjective Patient is seen for follow-up for hyponatremia. Currently with indwelling Rosales catheter for urine retention. Patient is being diuresed. Serum sodium at 134 today tolerating oral intake. He remains on high flow oxygen. Lower extremity swelling is improved. Shortness of breath appears slightly improved as well. Objective - Vital Signs Vital signs: Vital Signs Temp 98.4 F 10/07/23 08:00 Pulse 101 H 10/07/23 10:00 Resp 18 10/07/23 10:00 BP 147/83 10/07/23 10:00 Pulse Ox 96 10/07/23 10:00 FiO2 90 10/07/23 10:00 Intake & Output 10/06/23 10/07/23 10/07/23 18:59 06:59 18:59 Intake Total 150 320 120 Output Total 887 1000 80 Balance -737 -680 40 Weight 111.2 kg Intake: IV 200 Cefepime 2 gm In Sodium 200 Chloride 0.9% 100 ml @ 25 mls/hr IVPB Q8H [facility] Rx#: [id number] Oral 150 120 120 Output: Urine 887 1000 80 Other: Voiding Method Indwelling Catheter Indwelling Catheter Indwelling Catheter # Bowel Movements 1 - Exam On examination patient is comfortable. No acute distress Alert oriented 3 Examination of the heart S1 and S2 Examination of the lungs his breath sounds at the bases with bilateral wheezing heard Abdomen is soft nontender Examination of lower extremity shows edema 1+ bilaterally HAND EDGER exam grossly intact - Labs CBC & Chem 7: 10/07/23 04:50 10/07/23 04:50 Labs: Abnormal Lab Results - Last 24 Hours (Table) 10/06/23 10/06/23 10/07/23 Range/Units 12:11 20:07 04:50 WBC 15.7 H (3.8-10.6) k/uL RBC 4.26 L (4.30-5.90) m/uL Hgb 12.4 L (13.0-17.5) gm/dL Hct 37.9 L (39.0-53.0) % Sodium (137-145) mmol/L BUN (9-20) mg/dL Glucose (74-99) mg/dL POC Glucose (mg/dL) 154 H 175 H (70-110) mg/dL 10/07/23 10/07/23 Range/Units 04:50 06:30 WBC (3.8-10.6) k/uL RBC (4.30-5.90) m/uL Hgb (13.0-17.5) gm/dL Hct (39.0-53.0) % Sodium 134 L (137-145) mmol/L BUN 32 H (9-20) mg/dL Glucose 132 H (74-99) mg/dL POC Glucose (mg/dL) 141 H (70-110) mg/dL Assessment and Plan Assessment: 1. Hyponatremia. Currently hypervolemic. Sodium level 118 on admission -131 to 132 now. TSH normal. Urine osmolality 543. Urine sodium less than 20. TSH normal. Status post IV fluids on initial admission. Currently hypervolemic and being diuresed. 2. Acute kidney injury secondary to urinary retention. Creatinine 1.26 on admission and resolved at 0.89. No proteinuria on UA. No hydronephrosis noted on kidney ultrasound. 3. Urinary retention status post Rosales catheter placement. On Flomax. Urology following. 4. Benign hypertension. Controlled. 5. Hypokalemia from poor intake and postobstructive diuresis. Magnesium normal. 6. Rhabdomyolysis secondary to fall. CK level trending down. Plan: Continue with IV Lasix Repeat labs in a.m. Increase oral intake of protein.
--- NOTE | 2023-10-07 10:37 | P.PN ---
Subjective Progress Note Date: 10/07/23 Principal diagnosis: Weakness. Generalized weakness secondary to COVID-19 infection and hyponatremia with possible diaphragm paralysis and acute hypoxic respiratory failure This is a 77-year-old male patient with a history of hypertension, seizure disorder, thyroid disorder, former smoker. On September 27, 2023 the patient had gotten up to go the bathroom and slumped onto the ground. He had been reportedly laying on the ground for several hours by family were attempting to get in helping him get up but he was unable to support himself. He also had trouble with urinary incontinence. EMS was called and he was brought here for evaluation. CT scan of the brain revealed no acute intracranial hemorrhage, midline shift or mass effect. EKG revealed sinus rhythm with no significant ST or T wave abnormalities. White count 14.9. Hemoglobin 12.9. Platelets 146. Sodium 126. Potassium 3.9. Bicarb 26. BUN 15. Creatinine 0.68. Glucose 152. AST 148. ALT 43. Creatinine kinase 2283. He did test positive for COVID-19 infection. His initial sodium level was 118. BUN of 24 and a creatinine of 1.26. He had been seen by nephrology, urology and infectious disease. A chest x-ray was done today September 30, 2023 that revealed an elevated right hemidiaphragm and we are consulted for the same. He was sent for a sniff test however the patient was unable to perform the appropriate maneuvers due to overall condition. He is seen on consultation on the selective care unit. He is currently resting in bed. Difficult to arouse but arousable. He is on a nonrebreather mask with O2 saturation of 90%. Currently afebrile. Hemodynamically stable. He has been initiated on Decadron. Antibiotics in the form of cefepime. Saline at 50 MLS per hour. Patient was evaluated today on 10/01/2023, more awake today, more responsive, seems to be more alert, and remains on a nonrebreather mask which I have recommended to transition to high flow nasal cannula. Patient did transition to 10 L high flow nasal cannula and O2 saturation was ranging between 92 up to 96% definitely better today compared to the last couple of days. Still planning to repeat his sniff test to evaluate for right hemidiaphragm paralysis. Procalcitonin level came back elevated at 0.43, patient remains on antibiotics for presumptive right lower lobe pneumonia. WBC count today 13.9 hemoglobin 13.0.Basic metabolic profile is relatively normal. Reevaluated today on 10/02/2023, patient is on 10 L high flow nasal cannula, doing better, breathing easier, O2 saturation is in the low 90s, patient continues to have diminished breath sounds at the right base, and I believe the patient has right hemidiaphragm paralysis with right lower lobe atelectasis, possible underlying pneumonia, but I feel clinically this is not the picture. At any rate the patient is supposed to have a sniff test tomorrow, may even have to consider a CT of the chest to evaluate the right lower lobe further. Based on the sniff test, further recommendations will follow. In the meantime patient is gradually improving, feeling better, breathing easier and definitely his neurological status is significantly improved now compared to how he was few days ago WBC count is 10.2 hemoglobin is 12.3, sodium is up to 130, potassium 3.1 renal profile is normal procalcitonin level on this patient was 0.43, hence he was empirically placed on antibiotics for presumptive right lower lobe pneumonia Progress note dated October 03, 2023. The patient is seen today in room 362. He continues on a nonrebreather mask. Previously, he was on 15 L high flow oxygen. Because of saturations in the high 80s, the nurse switched him to a nonrebreather mask. Currently his saturations are in the low 90s. The patient continues on Decadron, and cefepime. He is getting saline at 50 cc an hour. His procalcitonin level is 0.43. Laboratory data includes a white count 11.3, hemoglobin 13, hematocrit 39.6, and a platelet count of 196,000. Sodium 132, potassium 3.3, chloride 97, CO2 30, BUN 15, creatinine 0.51. The patient's albumin is 2.8. AST is 101, and ALT is 53. Chest x-ray shows some basilar atelectasis or infiltrate, with an elevated right diaphragm, and possible effusion. Progress note dated October 04, 2023. 77-year-old male, seen today in room 362. The patient was initially on a nonrebreather, but saturations were only in the mid 80s. The patient was converted to Airvo, with settings of 60 L/min, with an FiO2 of 95%. His saturations then increased to 88 to 90%. The patient is not receiving any IV fluids. No new labs today. Labs from October 03 have been reviewed. Microbiologic sampling, is negative or pending. Chest x-ray reveals borderline cardiomegaly, with ongoing asymmetric elevation of the right hemidiaphragm. There is increasing patchy bibasilar atelectasis/infiltrate. Progress note dated October 05, 2023. 77-year-old male seen today in room 362. Currently, the patient is on Airvo, with settings of 60 L/min and an FiO2 of 90%. The patient is also wearing a nonrebreather mask, over the Airvo nasal cannula. The patient continues on Decadron and cefepime. We have asked for chest x-ray tomorrow. Clinically, the patient looks reasonably stable, and does not appear to be short of breath. I have asked the nurse, to call respiratory, to adjust his Airvo nasal cannula, and a nonrebreather mask. No new labs today. Progress note dated October 06, 2023. 77-year-old male, seen today in room 256. The patient's respiratory status declined through the night, and the patient was transferred down to the intensive care unit. The patient had blood gases, showing a pO2 of 126, pCO2 of 21, and a pH of 7.70. This blood gas is consistent with a mixed respiratory and metabolic alkalosis. The patient did test positive initially for coronavirus. He is currently on Airvo, with settings of 60 L/min and an FiO2 of 90%. In addition, he is getting a nonrebreather mask. The patient is not receiving any IV fluids. Saturations are in the low to mid 90s. The patient continues on cefepime. Labs include a white count 15, hemoglobin 13.4, hematocrit 39.6, and a platelet count of 181,000. Sodium 133, potassium 3.2, chlorides 96, CO2 29, BUN 28, creatinine 0.81. Glucose is 110. Calcium is 8.4. Chest x-ray shows some patchy mid and lower lung opacities, either the same from the previous x- ray, or mildly improved. There is also elevation of the right diaphragm. Progress note dated October 07, 2023. 77-year-old male seen today in room 256. The patient is currently on Airvo, at 60 L/min with an FiO2 of 90%. Saturations are between 92 and 93%. Occasionall y, he has a nonrebreather mask, over the Airvo nasal cannula. He is not receiving any IV fluids. He had an uneventful night according to the nurses. His white count is 15.7, hemoglobin 12.4, hematocrit 37.9, and platelet count is normal. Sodium 134, potassium 3.8, chlorides 98, CO2 29, BUN 32, creatinine 0.8. Glucose 141. Calcium 8.4. Chest x-ray is unchanged and shows similar patchy infiltrates, in the mid and lower lung zones, with the right diaphragm elevation. Objective - Vital Signs Vital signs: Vital Signs Temp 98.4 F 10/07/23 08:00 Pulse 101 H 10/07/23 10:00 Resp 18 10/07/23 10:00 BP 147/83 10/07/23 10:00 Pulse Ox 96 10/07/23 10:00 FiO2 90 10/07/23 10:00 Intake & Output 10/06/23 10/07/23 10/07/23 18:59 06:59 18:59 Intake Total 150 320 120 Output Total 887 1000 80 Balance -737 -680 40 Weight 111.2 kg Intake: IV 200 Cefepime 2 gm In Sodium 200 Chloride 0.9% 100 ml @ 25 mls/hr IVPB Q8H [facility] Rx#: [id number] Oral 150 120 120 Output: Urine 887 1000 80 Other: Voiding Method Indwelling Catheter Indwelling Catheter Indwelling Catheter # Bowel Movements 1 - Exam No acute distress, awake, currently on Airvo. HEENT examination is grossly unremarkable. Mucous membranes are moist. No oral lesions. Neck supple. Full range of motion. No adenopathy thyromegaly or neck vein distention. Cardiovascular examination reveals regular rhythm rate. S1-S2 normal. No S3 or S4. No discernible murmur noted. Heart sounds are distant. Heart rate 101 bpm . Lungs reveal electively clear but diminished breath sounds throughout. Minimal rhonchi. No wheezes. No crackles. Saturations are documented at 96 %. Abdomen soft bowel sounds are heard. No masses or tenderness. Extremities are intact. No cyanosis clubbing or edema. Skin is without rash or lesion. Neurologic examination is brief but nonfocal. - Labs CBC & Chem 7: 10/07/23 04:50 10/07/23 04:50 Labs: Abnormal Lab Results - Last 24 Hours (Table) 10/06/23 10/06/23 10/07/23 Range/Units 12:11 20:07 04:50 WBC 15.7 H (3.8-10.6) k/uL RBC 4.26 L (4.30-5.90) m/uL Hgb 12.4 L (13.0-17.5) gm/dL Hct 37.9 L (39.0-53.0) % Sodium (137-145) mmol/L BUN (9-20) mg/dL Glucose (74-99) mg/dL POC Glucose (mg/dL) 154 H 175 H (70-110) mg/dL 10/07/23 10/07/23 Range/Units 04:50 06:30 WBC (3.8-10.6) k/uL RBC (4.30-5.90) m/uL Hgb (13.0-17.5) gm/dL Hct (39.0-53.0) % Sodium 134 L (137-145) mmol/L BUN 32 H (9-20) mg/dL Glucose 132 H (74-99) mg/dL POC Glucose (mg/dL) 141 H (70-110) mg/dL Assessment and Plan Assessment: Acute hypoxemic respiratory failure secondary to right lower lobe atelectasis/consolidation, and possible pneumonia. Generalized weakness, likely secondary to coronavirus infection, and hyponatremia. Acute mental status changes, likely secondary to metabolic encephalopathy. Acute coronavirus infection, without evidence of coronavirus associated pneumonia. Right diaphragm elevation, and possible paresis/paralysis. Hyponatremia. Acute kidney injury. Rhabdomyolysis. History of seizure disorder. History of hypothyroidism. History of hypertension. Previous history of tobacco use. Plan: Plan dated October 03, 2023. The patient is seen today in room 362. The nurse recently changed him from 15 L high flow nasal prongs, to a nonrebreather mask. His saturations are in the low 90s. The patient continues on Decadron, and cefepime. He is also receiving saline at 50 cc an hour. His procalcitonin level was 0.43. Labs, x-rays, and medications are reviewed. We will continue to follow the patient, make recommendations along the way. Prognosis is certainly guarded. Plan dated October 04, 2023. The patient is seen today in room 362. The patient was on a nonrebreather mask, but because of low saturations, respiratory change the patient to Airvo, with settings of 60 L/min, and an FiO2 of 95%. The patient continues on Decadron, cefepime, zinc, vitamin D3, and vitamin C. Additional recommendations and suggestions are forthcoming. The patient's overall prognosis remains guarded. Chest x-ray has been reviewed. Labs, x-rays, and medications are reviewed. Overall prognosis remains guarded. CODE STATUS should be addressed. No additional recommendations at this time. Plan dated October 05, 2023. The patient is currently on Airvo, and a nonrebreather mask. Saturations are in the high 80s, low 90s. A chest x-ray will be obtained tomorrow. I have asked the nurse to call respiratory, to adjust his Airvo nasal cannula, and nonrebreather mask, to maximize his oxygen. Labs, x-rays, medications are reviewed. The patient continues on Decadron, and cefepime. Labs, x-rays, and medications are reviewed. The prognosis is guarded. We will continue to follow the patient, make recommendations along the way. CODE STATUS should be addressed on this patient. Plan dated October 06, 2023. The patient's respiratory status declined overnight, and he was transferred down to the intensive care unit. I was notified, by the nighttime nurse, about the rapid response team, and, I told them, to transfer the patient to the ICU, should the situation declined further. He is currently on Airvo device, at 60 L/min, with an FiO2 of 90%. In addition, he is on a nonrebreather mask. He continues on appropriate medications, including cefepime, Decadron, and, I will add some inhalers. Additional recommendations and suggestions are forthcoming. Prognosis is guarded. We will continue to follow the patient, and make recommendations. I attempted to have a conversation with the patient today about CODE STATUS, but he really could not make a decision. Plan dated October 07, 2023. The patient is currently on Airvo, 60 L/min, with an FiO2 of 90%. The nurses state, that the patient will use his nonrebreather, from time to time as well. Currently, his saturations are in the low 90s. He is not receiving any IV fluids. His chest x-ray is unchanged. Labs, x-rays, and medications are reviewed. CODE STATUS should be addressed by the primary service. Currently, he is on albuterol inhaler, Symbicort, cefepime, and Decadron. Additional recommendations and suggestions are forthcoming. Prognosis is very guarded. Time with Patient: Greater than 30
[2023-10-07 12:00] LABS: Glucose,Whole Blood 155 mg/dL (70-110)
--- NOTE | 2023-10-07 12:19 | P.PN ---
Subjective Progress Note Date: 10/07/23 Principal diagnosis: Reason for follow-up is COVID-19 and pneumonia Patient is a 77-year-old male with a past medical history significant for hypertension seizure disorder hypothyroidism patient has been brought into the hospital for evaluation of generalized weakness patient was noticed to be on the bathroom floor after apparently patient fell down, patient did tested positive for COVID-19, initial chest x-ray reported negative. On today's evaluation that is 10/07/2023,the patient remains to be afebrile, patient is on high flow 9supplemental oxygen with FiO2 of 92%, the patient denies any chest pain or worsening cough and sputum production no vomiting or diarrhea has been reported. Patient white count is 15.7, creatinine 0.80 Objective - Vital Signs Vital signs: Vital Signs Temp 98.4 F 10/07/23 08:00 Pulse 96 10/07/23 11:00 Resp 18 10/07/23 11:00 BP 141/87 10/07/23 11:00 Pulse Ox 93 L 10/07/23 11:00 FiO2 92 10/07/23 11:48 Intake & Output 10/06/23 10/07/23 10/07/23 18:59 06:59 18:59 Intake Total 150 320 360 Output Total 887 1000 730 Balance -737 680 -370 Weight 111.2 kg Intake: IV 200 Cefepime 2 gm In Sodium 200 Chloride 0.9% 100 ml @ 25 mls/hr IVPB Q8H [facility] Rx#: [id number] Oral 150 120 360 Output: Urine 887 1000 730 Other: Voiding Method Indwelling Catheter Indwelling Catheter Indwelling Catheter # Bowel Movements 1 - Exam GENERAL DESCRIPTION: An elderly male lying in bed in no distress RESPIRATORY SYSTEM: Unlabored breathing , decreased breath sounds at bases HEART: S1 S2 regular rate and rhythm , ABDOMEN: Soft , no tenderness EXTREMITIES: No edema feet - Labs CBC & Chem 7: 10/07/23 04:50 10/07/23 04:50 Labs: Abnormal Lab Results - Last 24 Hours (Table) 10/06/23 10/07/23 10/07/23 Range/Units 20:07 04:50 04:50 WBC 15.7 H (3.8-10.6) k/uL RBC 4.26 L (4.30-5.90) m/uL Hgb 12.4 L (13.0-17.5) gm/dL Hct 37.9 L (39.0-53.0) % Sodium 134 L (137-145) mmol/L BUN 32 H (9-20) mg/dL Glucose 132 H (74-99) mg/dL POC Glucose (mg/dL) 175 H (70-110) mg/dL 10/07/23 10/07/23 Range/Units 06:30 11:59 WBC (3.8-10.6) k/uL RBC (4.30-5.90) m/uL Hgb (13.0-17.5) gm/dL Hct (39.0-53.0) % Sodium (137-145) mmol/L BUN (9-20) mg/dL Glucose (74-99) mg/dL POC Glucose (mg/dL) 141 H 155 H (70-110) mg/dL Assessment and Plan (1) COVID-19 Current Visit: Yes Status: Acute Code(s): U07.1 - COVID-19 SNOMED Code(s): 504191424 (2) Sepsis Current Visit: Yes Status: Acute Code(s): A41.9 - SEPSIS, UNSPECIFIED ORGANISM SNOMED Code(s): 99371473 (3) Pneumonia Current Visit: Yes Status: Acute Code(s): J18.9 - PNEUMONIA, UNSPECIFIED ORGANISM SNOMED Code(s): 480641952 (4) Penicillin allergy Current Visit: Yes Status: Acute Code(s): Z88.0 - ALLERGY STATUS TO PENICILLIN SNOMED Code(s): 92062841 Plan: 1patient presented to hospital generalized weakness and did have a fall source likely multifactorial. He tested positive for COVID-19 however initial chest x- ray was negative for acute infiltrate however subsequent x-ray shows worsening bibasilar infiltrate concerning for possible secondary bacterial pneumonia 2-patient remains to be afebrile however still requiring high flow oxygen, the patient is covered with cefepime and monitor clinical course closely Dictation was produced using [employer] dictation software. please excuse any grammatical, word or spelling errors. Time with Patient: Less than 30
[2023-10-07 16:57] LABS: Glucose,Whole Blood 148 mg/dL (70-110)
--- NOTE | 2023-10-07 18:33 | P.PN ---
Subjective Progress Note Date: 10/07/23 patient is a 77-year-old gentleman past medical history significant for hypothyroidism, hypertension who presented to the ER for generalized weakness and fall. Patient was brought in by family members, apparently patient was trying to use the restroom when he lost all his strength and slumped to the gr ound. There was no complaint of any loss of consciousness. No complaint of weakness of any extremity. Family did not notice any slurred speech or facial droop. There was no complaint of fever or chills. No complaint of nausea, vomiting, abdominal pain. Patient's family tried to help him to get up but they were unable to lift him. They called EMS and they brought him to ER. Initial lab work done in the ER showed WBC 10.5, hemoglobin 15.2, platelet count 165, sodium 118, potassium 4.1, BUN 24, creatinine 1.26, plasma lactate 4.1, troponin 0.012 UA negative for any infection EKG done in the ER showed heart rate of 75, no ST segment elevation or depression seen, no T-wave inversions seen. Chest x-ray done in the ER no acute cardiopulmonary process CT head done showed no acute intracranial process Patient admitted to internal medicine service 09/29. Patient seen and examined. COVID-19 came back positive. Currently on 4 L of oxygen. Sodium this morning is 121. Still complain lethargy and weakness. Patient also diagnosed with COVID 09/30. Patient seen and examined. Blood work done this morning showed WBC 14.9, hemoglobin 12.9, platelet count 146, sodium 126, potassium 3.9, BUN 15, creatinine 0.68. States he feels much better. Shortness of breath is improved. 10/01. Patient seen and examined. Still on 15 L of oxygen via nonrebreather. States he feels better. Sodium level improved to 132, potassium 3.3, BUN 18, creatinine 0.65. Lethargy has improved. 10/02. Patient seen and examined. Currently on 8 L of oxygen via high flow nasal cannula. States he feels much better, breathing is improved, pulmonology recommended sniff test to look for right diaphragm paralysis 10/03. Patient seen and examined. Continues to be on 15 L of oxygen. Patient is not lethargic, states gets short of breath on exertion. Denies any nausea or vomiting 10/04/2023 Patient seen and evaluated in follow-up today continues to be dyspneic maintained on high flow oxygen is being transferred to Air. Per nursing staff he continues to remove his nasal cannula as well as nonrebreather and respiratory following recommending i continuing this for a few hours. Patient has noted to be COVID-positive. Sodium is slightly low at 132 potassium was 3.3 yesterday and replaced awaiting follow-up labs. Patient with prolonged hospitalization and continued weakness will likely need ECF once stabilized. 10/05/2023 Patient is seen in follow-up this morning continues on Airvo with maximum oxygen at 60/90 maintaining oxygen saturations in the 88 percentile range. Patient reports having worsening shortness of breath although appears somewhat confused at times. Discussed CODE STATUS with the patient and he wishes to remain full code. Patient is agreeable to mechanical ventilation if required. Patient continues to remove his oxygen from his face desats very quickly. Will get a chest x-ray and continue to monitor closely. Pulmonary and infectious disease following and patient is continued on cefepime with concerns of pneumonia. Patient is currently afebrile and denies chest pain or shortness of breath. Patient reports he is eating although not much of an appetite. 10/06/2023 Patient is seen in follow-up today was transferred to the ICU for respiratory decline per nursing staff as patient continued to have respiratory distress and low oxygen saturations becoming more hypoxic and confused. Patient is continued on Airvo max 60/90 with continued intermittent nonrebreather use. Patient is continued on steroids along with inhalers and pulmonary is following closely. Patient is afebrile with no reported chest pain or shortness of breath. Patient reports to tolerating diet although appears not to be eating very much at all. 10/07/2023 Patient is seen and evaluated in follow-up today continues in the ICU on high flow Airvo 60 L / 90% with oxygen saturations in the low 90s. On exam patient was found to have Airvo out of his nostrils and using nonrebreather and oxygen saturation was 93%. Patient is maintained on antibiotics with infectious disease following closely along with pulmonary loading machine adjuster. CODE STATUS was addressed once again and patient wishes to remain full code. Wean FiO2 as tolerated. Encouraged oral intake. Patient to be evaluated by physical therapy once respiratory status improved and will need rehab. REVIEW OF SYSTEMS: CONSTITUTIONAL: No fever, no malaise,. CARDIOVASCULAR: No chest pain, no palpitations, no syncope. PULMONARY: No reports of worsening shortness of breath, no cough GASTROINTESTINAL: No diarrhea, no nausea, no vomiting, no abdominal pain. NEUROLOGICAL: No headaches, no weakness PHYSICAL EXAMINATION: GENERAL: The patient is alert and oriented x2. With periods of confusion. Patient appeared more alert today. Well developed, well nourished. Obese HEENT: Pupils are round and equally reacting to light. EOMI. No scleral icterus. No conjunctival pallor. Normocephalic, atraumatic. No pharyngeal erythema. No thyromegaly. CARDIOVASCULAR: S1 and S2 muffled PULMONARY: Coarse breath sound bilaterally, no wheeze, no crackles audible ABDOMEN: Soft, obese, nontender, nondistended, normoactive bowel sounds. No palpable organomegaly. MUSCULOSKELETAL: 1+ pitting edema lower extremities bilaterally EXTREMITIES: No cyanosis, clubbing, or pedal edema. NEUROLOGICAL: Gross neurological examination did not reveal any focal deficits. Diffusely weak SKIN: No rashes. Assessment: Hyponatremia secondary to poor oral intake, improved COVID-19 Acute hypoxic respiratory failure secondary to COVID-19, now requiring high flow Airvo Altered mental status, with toxic metabolic encephalopathy likely secondary to hypoxia as patient continues to remove oxygen mask from his face Generalized weakness Rhabdomyolysis Fall Urinary retention requiring indwelling Rosales catheter Hypothyroidism Hypertension Obesity with a BMI of 35.0 Plan: Patient is continued on high flow oxygen and with intermittent nonrebreather at 15 L and continues to be somewhat hypoxic continued on max Airvo. Patient had respiratory decline overnight with nursing reporting continued low oxygen saturations into the low 80s and removing the Airvo and a team was called and patient was brought to the ICU for closer monitoring. Pulmonary and nephrology following along with infectious disease. Patient is maintained on cefepime and will continue Patient having increased confusion likely secondary to hypoxia as he keeps remov ing his tubing and masks from his face and desatting quickly CODE STATUS was addressed and patient wishes to remain full code and is agreeable to mechanical ventilation if needed. Will need to discuss further with family as well regarding overall treatment plan, readdressing code Stratus once again, and the need for ECF once patient stabilizes and is discharged PT/OT following awaiting to evaluate the patient once respiratory status improves Patient will need rehab as patient has had prolonged hospitalization and continued weakness Prognosis is guarded The impression and plan of care has been dictated by Margie Patricio, Nurse Practitioner as directed. Dr. Barr. I have performed a history and examination and MDM of this patient, discussed the same with the dictator, and agree with the dictator's assessment and plan as written ,documented as a scribe. Based on total visit time, I have performed more than 50% of the visit. Objective - Vital Signs Vital signs: Vital Signs Temp 97.5 F L 10/07/23 04:00 Pulse 90 10/07/23 07:00 Resp 14 10/07/23 07:00 BP 123/82 10/07/23 07:00 Pulse Ox 94 L 10/07/23 08:26 FiO2 92 10/07/23 08:26 Intake & Output 10/06/23 10/07/23 10/07/23 18:59 06:59 18:59 Intake Total 150 320 Output Total 887 1000 Balance -737 -680 Weight 111.2 kg Intake: IV 200 Cefepime 2 gm In Sodium 200 Chloride 0.9% 100 ml @ 25 mls/hr IVPB Q8H [facility] Rx#: [id number] Oral 150 120 Output: Urine 887 1000 Other: Voiding Method Indwelling Catheter Indwelling Catheter # Bowel Movements 1 - Labs CBC & Chem 7: 10/07/23 04:50 10/07/23 04:50 Labs: Abnormal Lab Results - Last 24 Hours (Table) 10/06/23 10/06/23 10/07/23 Range/Units 12:11 20:07 04:50 WBC 15.7 H (3.8-10.6) k/uL RBC 4.26 L (4.30-5.90) m/uL Hgb 12.4 L (13.0-17.5) gm/dL Hct 37.9 L (39.0-53.0) % Sodium (137-145) mmol/L BUN (9-20) mg/dL Glucose (74-99) mg/dL POC Glucose (mg/dL) 154 H 175 H (70-110) mg/dL 10/07/23 10/07/23 Range/Units 04:50 06:30 WBC (3.8-10.6) k/uL RBC (4.30-5.90) m/uL Hgb (13.0-17.5) gm/dL Hct (39.0-53.0) % Sodium 134 L (137-145) mmol/L BUN 32 H (9-20) mg/dL Glucose 132 H (74-99) mg/dL POC Glucose (mg/dL) 141 H (70-110) mg/dL
[2023-10-07 21:03] LABS: Glucose,Whole Blood 145 mg/dL (70-110)
[2023-10-08 04:34] LABS: Basophils % (A) 0 %; Eosinophils % (A) 0 %; HCT 36.6 % (39.0-53.0); HGB 11.8 gm/dL (13.0-17.5); Lymphocytes # (A) 1.3 k/uL (1.0-4.8); Lymphocytes % (A) 9 %; MCH 29.1 pg (25.0-35.0); MCHC 32.3 g/dL (31.0-37.0); MCV 90.2 fL (80.0-100.0); Mean Platelet Volume 9.4; Monocytes # (A) 0.7 k/uL (0-1.0); Monocytes % (A) 5 %; Neutrophils % (A) 84 %; Platelet Count 153 k/uL (150-450); RBC 4.05 m/uL (4.30-5.90); RDW 13.4 % (11.5-15.5); WBC 14.3 k/uL (3.8-10.6)
[2023-10-08 04:45] LABS: African American GFR (CKD) >90 (>60 ml/min/1.73 sqM); Anion Gap 4 mmol/L; Blood Urea Nitrogen 37 mg/dL (9-20); Calcium 8.5 mg/dL (8.4-10.2); Carbon Dioxide 31 mmol/L (22-30); Chloride 96 mmol/L (98-107); Glucose 137 mg/dL (74-99); Non-African American GFR(CKD) >90 (>60 ml/min/1.73 sqM); Sodium 131 mmol/L (137-145)
[2023-10-08] MEDS: POTASSIUM CHLORIDE 10 MEQ in WATER FOR INJECTION 1 100ML.BAG IVPB SCH (04:53)
[2023-10-08 07:09] LABS: Glucose,Whole Blood 138 mg/dL (70-110)
--- NOTE | 2023-10-08 10:12 | P.PN ---
Subjective Patient is seen for follow-up for hyponatremia. Currently with indwelling Rosales catheter for urine retention. Patient is being diuresed. Serum sodium at 13 today tolerating oral intake. He remains on high flow oxygen. Lower extremity swelling is improved. Shortness of breath appears slightly improved as well. Objective - Vital Signs Vital signs: Vital Signs Temp 97.8 F 10/08/23 04:00 Pulse 73 10/08/23 09:00 Resp 22 10/08/23 09:00 BP 150/77 10/08/23 09:00 Pulse Ox 84 L 10/08/23 09:00 FiO2 80 10/08/23 09:00 Intake & Output 10/07/23 10/08/23 10/08/23 18:59 06:59 18:59 Intake Total 800 100 Output Total 1010 980 140 Balance -210 -880 -140 Weight 111.8 kg Intake: IV 100 100 Cefepime 2 gm In Sodium 100 100 Chloride 0.9% 100 ml @ 25 mls/hr IVPB Q8H [facility] Rx#: [id number] Oral 700 0 Output: Urine 1010 980 140 Other: Voiding Method Indwelling Catheter Indwelling Catheter Indwelling Catheter # Bowel Movements 1 - Exam On examination patient is comfortable. No acute distress Alert oriented 3 Examination of the heart S1 and S2 Examination of the lungs his breath sounds at the bases with bilateral wheezing heard Abdomen is soft nontender Examination of lower extremity shows edema 1+ bilaterally [employer] exam grossly intact - Labs CBC & Chem 7: 10/08/23 04:11 10/08/23 04:11 Labs: Abnormal Lab Results - Last 24 Hours (Table) 10/07/23 10/07/23 10/07/23 Range/Units 11:59 16:55 21:02 WBC (3.8-10.6) k/uL RBC (4.30-5.90) m/uL Hgb (13.0-17.5) gm/dL Hct (39.0-53.0) % Neutrophils # (1.3-7.7) k/uL Sodium (137-145) mmol/L Chloride (98-107) mmol/L Carbon Dioxide (22-30) mmol/L BUN (9-20) mg/dL Glucose (74-99) mg/dL POC Glucose (mg/dL) 155 H 148 H 145 H (70-110) mg/dL 10/08/23 10/08/23 10/08/23 Range/Units 04:11 04:11 07:08 WBC 14.3 H (3.8-10.6) k/uL RBC 4.05 L (4.30-5.90) m/uL Hgb 11.8 L (13.0-17.5) gm/dL Hct 36.6 L (39.0-53.0) % Neutrophils # 12.0 H (1.3-7.7) k/uL Sodium 131 L (137-145) mmol/L Chloride 96 L (98-107) mmol/L Carbon Dioxide 31 H (22-30) mmol/L BUN 37 H (9-20) mg/dL Glucose 137 H (74-99) mg/dL POC Glucose (mg/dL) 138 H (70-110) mg/dL Assessment and Plan Assessment: 1. Hyponatremia. Currently hypervolemic. Sodium level 118 on admission -131 to 132 now. TSH normal. Urine osmolality 543. Urine sodium less than 20. TSH normal. Status post IV fluids on initial admission. Also received 1 dose of Samsca initially. Currently hypervolemic and being diuresed. 2. Acute kidney injury secondary to urinary retention. Creatinine 1.26 on admission and resolved at 0.7. No proteinuria on UA. No hydronephrosis noted on kidney ultrasound. 3. Urinary retention status post Rosales catheter placement. On Flomax. Urology following. 4. Benign hypertension. Controlled. 5. Hypokalemia from poor intake and postobstructive diuresis. Magnesium normal. 6. Rhabdomyolysis secondary to fall. CK level trending down. Plan: Continue with IV Lasix Repeat labs in a.m. Increase oral intake of protein.
--- NOTE | 2023-10-08 10:44 | P.PN ---
Subjective Progress Note Date: 10/08/23 Principal diagnosis: Weakness. Generalized weakness secondary to COVID-19 infection and hyponatremia with possible diaphragm paralysis and acute hypoxic respiratory failure This is a 77-year-old male patient with a history of hypertension, seizure disorder, thyroid disorder, former smoker. On September 27, 2023 the patient had gotten up to go the bathroom and slumped onto the ground. He had been reportedly laying on the ground for several hours by family were attempting to get in helping him get up but he was unable to support himself. He also had trouble with urinary incontinence. EMS was called and he was brought here for evaluation. CT scan of the brain revealed no acute intracranial hemorrhage, midline shift or mass effect. EKG revealed sinus rhythm with no significant ST or T wave abnormalities. White count 14.9. Hemoglobin 12.9. Platelets 146. Sodium 126. Potassium 3.9. Bicarb 26. BUN 15. Creatinine 0.68. Glucose 152. AST 148. ALT 43. Creatinine kinase 2283. He did test positive for COVID-19 infection. His initial sodium level was 118. BUN of 24 and a creatinine of 1.26. He had been seen by nephrology, urology and infectious disease. A chest x-ray was done today September 30, 2023 that revealed an elevated right hemidiaphragm and we are consulted for the same. He was sent for a sniff test however the patient was unable to perform the appropriate maneuvers due to overall condition. He is seen on consultation on the selective care unit. He is currently resting in bed. Difficult to arouse but arousable. He is on a nonrebreather mask with O2 saturation of 90%. Currently afebrile. Hemodynamically stable. He has been initiated on Decadron. Antibiotics in the form of cefepime. Saline at 50 MLS per hour. Patient was evaluated today on 10/01/2023, more awake today, more responsive, seems to be more alert, and remains on a nonrebreather mask which I have recommended to transition to high flow nasal cannula. Patient did transition to 10 L high flow nasal cannula and O2 saturation was ranging between 92 up to 96% definitely better today compared to the last couple of days. Still planning to repeat his sniff test to evaluate for right hemidiaphragm paralysis. Procalcitonin level came back elevated at 0.43, patient remains on antibiotics for presumptive right lower lobe pneumonia. WBC count today 13.9 hemoglobin 13.0.Basic metabolic profile is relatively normal. Reevaluated today on 10/02/2023, patient is on 10 L high flow nasal cannula, doing better, breathing easier, O2 saturation is in the low 90s, patient continues to have diminished breath sounds at the right base, and I believe the patient has right hemidiaphragm paralysis with right lower lobe atelectasis, possible underlying pneumonia, but I feel clinically this is not the picture. At any rate the patient is supposed to have a sniff test tomorrow, may even have to consider a CT of the chest to evaluate the right lower lobe further. Based on the sniff test, further recommendations will follow. In the meantime patient is gradually improving, feeling better, breathing easier and definitely his neurological status is significantly improved now compared to how he was few days ago WBC count is 10.2 hemoglobin is 12.3, sodium is up to 130, potassium 3.1 renal profile is normal procalcitonin level on this patient was 0.43, hence he was empirically placed on antibiotics for presumptive right lower lobe pneumonia Progress note dated October 03, 2023. The patient is seen today in room 362. He continues on a nonrebreather mask. Previously, he was on 15 L high flow oxygen. Because of saturations in the high 80s, the nurse switched him to a nonrebreather mask. Currently his saturations are in the low 90s. The patient continues on Decadron, and cefepime. He is getting saline at 50 cc an hour. His procalcitonin level is 0.43. Laboratory data includes a white count 11.3, hemoglobin 13, hematocrit 39.6, and a platelet count of 196,000. Sodium 132, potassium 3.3, chloride 97, CO2 30, BUN 15, creatinine 0.51. The patient's albumin is 2.8. AST is 101, and ALT is 53. Chest x-ray shows some basilar atelectasis or infiltrate, with an elevated right diaphragm, and possible effusion. Progress note dated October 04, 2023. 77-year-old male, seen today in room 362. The patient was initially on a nonrebreather, but saturations were only in the mid 80s. The patient was converted to Airvo, with settings of 60 L/min, with an FiO2 of 95%. His saturations then increased to 88 to 90%. The patient is not receiving any IV fluids. No new labs today. Labs from October 03 have been reviewed. Microbiologic sampling, is negative or pending. Chest x-ray reveals borderline cardiomegaly, with ongoing asymmetric elevation of the right hemidiaphragm. There is increasing patchy bibasilar atelectasis/infiltrate. Progress note dated October 05, 2023. 77-year-old male seen today in room 362. Currently, the patient is on Airvo, with settings of 60 L/min and an FiO2 of 90%. The patient is also wearing a nonrebreather mask, over the Airvo nasal cannula. The patient continues on Decadron and cefepime. We have asked for chest x-ray tomorrow. Clinically, the patient looks reasonably stable, and does not appear to be short of breath. I have asked the nurse, to call respiratory, to adjust his Airvo nasal cannula, and a nonrebreather mask. No new labs today. Progress note dated October 06, 2023. 77-year-old male, seen today in room 256. The patient's respiratory status declined through the night, and the patient was transferred down to the intensive care unit. The patient had blood gases, showing a pO2 of 126, pCO2 of 21, and a pH of 7.70. This blood gas is consistent with a mixed respiratory and metabolic alkalosis. The patient did test positive initially for coronavirus. He is currently on Airvo, with settings of 60 L/min and an FiO2 of 90%. In addition, he is getting a nonrebreather mask. The patient is not receiving any IV fluids. Saturations are in the low to mid 90s. The patient continues on cefepime. Labs include a white count 15, hemoglobin 13.4, hematocrit 39.6, and a platelet count of 181,000. Sodium 133, potassium 3.2, chlorides 96, CO2 29, BUN 28, creatinine 0.81. Glucose is 110. Calcium is 8.4. Chest x-ray shows some patchy mid and lower lung opacities, either the same from the previous x- ray, or mildly improved. There is also elevation of the right diaphragm. Progress note dated October 07, 2023. 77-year-old male seen today in room 256. The patient is currently on Airvo, at 60 L/min with an FiO2 of 90%. Saturations are between 92 and 93%. Occasionall y, he has a nonrebreather mask, over the Airvo nasal cannula. He is not receiving any IV fluids. He had an uneventful night according to the nurses. His white count is 15.7, hemoglobin 12.4, hematocrit 37.9, and platelet count is normal. Sodium 134, potassium 3.8, chlorides 98, CO2 29, BUN 32, creatinine 0.8. Glucose 141. Calcium 8.4. Chest x-ray is unchanged and shows similar patchy infiltrates, in the mid and lower lung zones, with the right diaphragm elevation. Progress note dated October 08, 2023. 77-year-old male seen today in room 256. The patient is currently on Airvo, at 60 L/min, with an FiO2 of 80%. Yesterday, he was on 90%. He is not receiving any IV fluids. We can discontinue isolation. In addition, he has been on cefepime for some time, so that we will be discontinued as well. Current labs include a white count of 14.3, hemoglobin 11.8, hematocrit 36.6, and a normal platelet count of 153,000. Sodium 131, potassium 4, chloride 96, CO2 31, BUN 37, creatinine 0.71. Glucose is 137. Calcium 8.5. Magnesium 2.0. Yesterday's chest x-ray was unchanged. Objective - Vital Signs Vital signs: Vital Signs Temp 97.8 F 10/08/23 04:00 Pulse 73 10/08/23 09:00 Resp 22 10/08/23 09:00 BP 150/77 10/08/23 09:00 Pulse Ox 84 L 10/08/23 09:00 FiO2 80 10/08/23 09:00 Intake & Output 10/07/23 10/08/23 10/08/23 18:59 06:59 18:59 Intake Total 800 100 Output Total 1010 980 140 Balance -210 -880 -140 Weight 111.8 kg Intake: IV 100 100 Cefepime 2 gm In Sodium 100 100 Chloride 0.9% 100 ml @ 25 mls/hr IVPB Q8H [facility] Rx#: [id number] Oral 700 0 Output: Urine 1010 980 140 Other: Voiding Method Indwelling Catheter Indwelling Catheter Indwelling Catheter # Bowel Movements 1 - Exam No acute distress, awake, currently on Airvo. HEENT examination is grossly unremarkable. Mucous membranes are moist. No oral lesions. Neck supple. Full range of motion. No adenopathy thyromegaly or neck vein distention. Cardiovascular examination reveals regular rhythm rate. S1-S2 normal. No S3 or S4. No discernible murmur noted. Heart sounds are distant. Heart rate 73 bpm. Lungs reveal electively clear but diminished breath sounds throughout. Minimal rhonchi. No wheezes. No crackles. Saturations are documented at 87 to 89 %. Abdomen soft bowel sounds are heard. No masses or tenderness. Extremities are intact. No cyanosis clubbing or edema. Skin is without rash or lesion. Neurologic examination is brief but nonfocal. - Labs CBC & Chem 7: 10/08/23 04:11 10/08/23 04:11 Labs: Abnormal Lab Results - Last 24 Hours (Table) 10/07/23 10/07/23 10/07/23 Range/Units 11:59 16:55 21:02 WBC (3.8-10.6) k/uL RBC (4.30-5.90) m/uL Hgb (13.0-17.5) gm/dL Hct (39.0-53.0) % Neutrophils # (1.3-7.7) k/uL Sodium (137-145) mmol/L Chloride (98-107) mmol/L Carbon Dioxide (22-30) mmol/L BUN (9-20) mg/dL Glucose (74-99) mg/dL POC Glucose (mg/dL) 155 H 148 H 145 H (70-110) mg/dL 10/08/23 10/08/23 10/08/23 Range/Units 04:11 04:11 07:08 WBC 14.3 H (3.8-10.6) k/uL RBC 4.05 L (4.30-5.90) m/uL Hgb 11.8 L (13.0-17.5) gm/dL Hct 36.6 L (39.0-53.0) % Neutrophils # 12.0 H (1.3-7.7) k/uL Sodium 131 L (137-145) mmol/L Chloride 96 L (98-107) mmol/L Carbon Dioxide 31 H (22-30) mmol/L BUN 37 H (9-20) mg/dL Glucose 137 H (74-99) mg/dL POC Glucose (mg/dL) 138 H (70-110) mg/dL Assessment and Plan Assessment: Acute hypoxemic respiratory failure secondary to right lower lobe atelectasis/consolidation, and possible pneumonia. Generalized weakness, likely secondary to coronavirus infection, and hyponatremia. Acute mental status changes, likely secondary to metabolic encephalopathy. Acute coronavirus infection, without evidence of coronavirus associated pneumonia. Right diaphragm elevation, and possible paresis/paralysis. Hyponatremia. Acute kidney injury. Rhabdomyolysis. History of seizure disorder. History of hypothyroidism. History of hypertension. Previous history of tobacco use. Plan: Plan dated October 03, 2023. The patient is seen today in room 362. The nurse recently changed him from 15 L high flow nasal prongs, to a nonrebreather mask. His saturations are in the low 90s. The patient continues on Decadron, and cefepime. He is also receiving saline at 50 cc an hour. His procalcitonin level was 0.43. Labs, x-rays, and medications are reviewed. We will continue to follow the patient, make recommendations along the way. Prognosis is certainly guarded. Plan dated October 04, 2023. The patient is seen today in room 362. The patient was on a nonrebreather mask, but because of low saturations, respiratory change the patient to Airvo, with settings of 60 L/min, and an FiO2 of 95%. The patient continues on Decadron, cefepime, zinc, vitamin D3, and vitamin C. Additional recommendations and sugg estions are forthcoming. The patient's overall prognosis remains guarded. Chest x-ray has been reviewed. Labs, x-rays, and medications are reviewed. Overall prognosis remains guarded. CODE STATUS should be addressed. No additional recommendations at this time. Plan dated October 05, 2023. The patient is currently on Airvo, and a nonrebreather mask. Saturations are in the high 80s, low 90s. A chest x-ray will be obtained tomorrow. I have asked the nurse to call respiratory, to adjust his Airvo nasal cannula, and nonrebreather mask, to maximize his oxygen. Labs, x-rays, medications are reviewed. The patient continues on Decadron, and cefepime. Labs, x-rays, and medications are reviewed. The prognosis is guarded. We will continue to follow the patient, make recommendations along the way. CODE STATUS should be addressed on this patient. Plan dated October 06, 2023. The patient's respiratory status declined overnight, and he was transferred down to the intensive care unit. I was notified, by the nighttime nurse, about the rapid response team, and, I told them, to transfer the patient to the ICU, should the situation declined further. He is currently on Airvo device, at 60 L/min, with an FiO2 of 90%. In addition, he is on a nonrebreather mask. He continues on appropriate medications, including cefepime, Decadron, and, I will add some inhalers. Additional recommendations and suggestions are forthcoming. Prognosis is guarded. We will continue to follow the patient, and make recommendations. I attempted to have a conversation with the patient today about CODE STATUS, but he really could not make a decision. Plan dated October 07, 2023. The patient is currently on Airvo, 60 L/min, with an FiO2 of 90%. The nurses state, that the patient will use his nonrebreather, from time to time as well. Currently, his saturations are in the low 90s. He is not receiving any IV fluids. His chest x-ray is unchanged. Labs, x-rays, and medications are review ed. CODE STATUS should be addressed by the primary service. Currently, he is on albuterol inhaler, Symbicort, cefepime, and Decadron. Additional recommendations and suggestions are forthcoming. Prognosis is very guarded. Plan dated October 08, 2023. The patient remains critically ill in the intensive care unit. He is seen today in room 256. The patient's currently on Airvo, at 60 L/min, with an FiO2 of 80%. The patient is not receiving any IV fluids. We can discontinue the isolation. Will also discontinue the cefepime. Labs, x-rays, and medications are reviewed. He continues on albuterol, Symbicort, and Decadron. Additional recommendations and suggestions are forthcoming. Prognosis is guarded. We did ask for chest x-ray tomorrow. Time with Patient: Greater than 30
--- NOTE | 2023-10-08 11:22 | P.PN ---
Subjective Progress Note Date: 10/08/23 Principal diagnosis: Reason for follow-up is COVID-19 and pneumonia Patient is a 77-year-old male with a past medical history significant for hypertension seizure disorder hypothyroidism patient has been brought into the hospital for evaluation of generalized weakness patient was noticed to be on the bathroom floor after apparently patient fell down, patient did tested positive for COVID-19, initial chest x-ray reported negative. On today's evaluation that is 10/08/2023, the patient continues to be afebrile, the patient is on Airvo currently on 80% FiO2, patient mention breathing comfortably, the Pt denies having any chest pain or worsening cough, the patient denies having any abdominal pain no vomiting or any diarrhea has been reported by the nursing staff. Patient white count is 14.3, creatinine 0.71 Objective - Vital Signs Vital signs: Vital Signs Temp 97.8 F 10/08/23 04:00 Pulse 87 10/08/23 11:00 Resp 26 H 10/08/23 11:00 BP 152/74 10/08/23 11:00 Pulse Ox 92 L 10/08/23 11:00 FiO2 90 10/08/23 11:00 Intake & Output 10/07/23 10/08/23 10/08/23 18:59 06:59 18:59 Intake Total 800 100 Output Total 1010 980 815 Balance -210 880 -815 Weight 111.8 kg Intake: IV 100 100 Cefepime 2 gm In Sodium 100 100 Chloride 0.9% 100 ml @ 25 mls/hr IVPB Q8H [facility] Rx#: [id number] Oral 700 0 Output: Urine 1010 980 815 Other: Voiding Method Indwelling Catheter Indwelling Catheter Indwelling Catheter # Bowel Movements 1 - Exam GENERAL DESCRIPTION: An elderly male lying in bed in no distress RESPIRATORY SYSTEM: Unlabored breathing , decreased breath sounds at bases HEART: S1 S2 regular rate and rhythm , ABDOMEN: Soft , no tenderness EXTREMITIES: No edema feet - Labs CBC & Chem 7: 10/08/23 04:11 10/08/23 04:11 Labs: Abnormal Lab Results - Last 24 Hours (Table) 10/07/23 10/07/23 10/07/23 Range/Units 11:59 16:55 21:02 WBC (3.8-10.6) k/uL RBC (4.30-5.90) m/uL Hgb (13.0-17.5) gm/dL Hct (39.0-53.0) % Neutrophils # (1.3-7.7) k/uL Sodium (137-145) mmol/L Chloride (98-107) mmol/L Carbon Dioxide (22-30) mmol/L BUN (9-20) mg/dL Glucose (74-99) mg/dL POC Glucose (mg/dL) 155 H 148 H 145 H (70-110) mg/dL 10/08/23 10/08/23 10/08/23 Range/Units 04:11 04:11 07:08 WBC 14.3 H (3.8-10.6) k/uL RBC 4.05 L (4.30-5.90) m/uL Hgb 11.8 L (13.0-17.5) gm/dL Hct 36.6 L (39.0-53.0) % Neutrophils # 12.0 H (1.3-7.7) k/uL Sodium 131 L (137-145) mmol/L Chloride 96 L (98-107) mmol/L Carbon Dioxide 31 H (22-30) mmol/L BUN 37 H (9-20) mg/dL Glucose 137 H (74-99) mg/dL POC Glucose (mg/dL) 138 H (70-110) mg/dL Assessment and Plan (1) COVID-19 Current Visit: Yes Status: Acute Code(s): U07.1 - COVID-19 SNOMED Code(s): 179229285 (2) Sepsis Current Visit: Yes Status: Acute Code(s): A41.9 - SEPSIS, UNSPECIFIED ORGANISM SNOMED Code(s): 83429294 (3) Pneumonia Current Visit: Yes Status: Acute Code(s): J18.9 - PNEUMONIA, UNSPECIFIED ORGANISM SNOMED Code(s): 907408208 (4) Penicillin allergy Current Visit: Yes Status: Acute Code(s): Z88.0 - ALLERGY STATUS TO PENICILLIN SNOMED Code(s): 31759812 Plan: 1patient presented to hospital generalized weakness and did have a fall source likely multifactorial. He tested positive for COVID-19 however initial chest x- ray was negative for acute infiltrate however subsequent x-ray shows worsening bibasilar infiltrate concerning for possible secondary bacterial pneumonia 2-patient remains to be afebrile and is requiring less supplemental oxygen r eceived about 10 days of cefepime, cefepime has been discontinued by pulmonary we will monitor the patient closely off antibiotic Dictation was produced using [employer] dictation software. please excuse any grammatical, word or spelling errors. Time with Patient: Less than 30
[2023-10-08 12:28] LABS: Glucose,Whole Blood 114 mg/dL (70-110)
[2023-10-08 16:52] LABS: Glucose,Whole Blood 140 mg/dL (70-110)
--- NOTE | 2023-10-08 20:01 | P.PN ---
Subjective patient is a 77-year-old gentleman past medical history significant for hypothyroidism, hypertension who presented to the ER for generalized weakness and fall. Patient was brought in by family members, apparently patient was trying to use the restroom when he lost all his strength and slumped to the ground. There was no complaint of any loss of consciousness. No complaint of weakness of any extremity. Family did not notice any slurred speech or facial droop. There was no complaint of fever or chills. No complaint of nausea, vomiting, abdominal pain. Patient's family tried to help him to get up but they were unable to lift him. They called EMS and they brought him to ER. Initial lab work done in the ER showed WBC 10.5, hemoglobin 15.2, platelet count 165, sodium 118, potassium 4.1, BUN 24, creatinine 1.26, plasma lactate 4.1, tro ponin 0.012 UA negative for any infection EKG done in the ER showed heart rate of 75, no ST segment elevation or depression seen, no T-wave inversions seen. Chest x-ray done in the ER no acute cardiopulmonary process CT head done showed no acute intracranial process Patient admitted to internal medicine service 09/29. Patient seen and examined. COVID-19 came back positive. Currently on 4 L of oxygen. Sodium this morning is 121. Still complain lethargy and weakness. Patient also diagnosed with COVID 09/30. Patient seen and examined. Blood work done this morning showed WBC 14.9, hemoglobin 12.9, platelet count 146, sodium 126, potassium 3.9, BUN 15, creatinine 0.68. States he feels much better. Shortness of breath is improved. 10/01. Patient seen and examined. Still on 15 L of oxygen via nonrebreather. States he feels better. Sodium level improved to 132, potassium 3.3, BUN 18, creatinine 0.65. Lethargy has improved. 10/02. Patient seen and examined. Currently on 8 L of oxygen via high flow nasal cannula. States he feels much better, breathing is improved, pulmonology recommended sniff test to look for right diaphragm paralysis 10/03. Patient seen and examined. Continues to be on 15 L of oxygen. Patient is not lethargic, states gets short of breath on exertion. Denies any nausea or vomiting 10/04/2023 Patient seen and evaluated in follow-up today continues to be dyspneic maintained on high flow oxygen is being transferred to [facility]. Per nursing staff he continues to remove his nasal cannula as well as nonrebreather and respiratory following recommending i continuing this for a few hours. Patient has noted to be COVID-positive. Sodium is slightly low at 132 potassium was 3.3 yesterday and replaced awaiting follow-up labs. Patient with prolonged hospitalization and continued weakness will likely need ECF once stabilized. 10/05/2023 Patient is seen in follow-up this morning continues on Airvo with maximum oxygen at 60/90 maintaining oxygen saturations in the 88 percentile range. Patient reports having worsening shortness of breath although appears somewhat confused at times. Discussed CODE STATUS with the patient and he wishes to remain full code. Patient is agreeable to mechanical ventilation if required. Patient continues to remove his oxygen from his face desats very quickly. Will get a chest x-ray and continue to monitor closely. Pulmonary and infectious disease following and patient is continued on cefepime with concerns of pneumonia. Patient is currently afebrile and denies chest pain or shortness of breath. Patient reports he is eating although not much of an appetite. 10/06/2023 Patient is seen in follow-up today was transferred to the ICU for respiratory decline per nursing staff as patient continued to have respiratory distress and low oxygen saturations becoming more hypoxic and confused. Patient is continued on Airvo max 60/90 with continued intermittent nonrebreather use. Patient is continued on steroids along with inhalers and pulmonary is following closely. Patient is afebrile with no reported chest pain or shortness of breath. Patient reports to tolerating diet although appears not to be eating very much at all. 10/07/2023 Patient is seen and evaluated in follow-up today continues in the ICU on high flow Airvo 60 L / 90% with oxygen saturations in the low 90s. On exam patient was found to have Airvo out of his nostrils and using nonrebreather and oxygen saturation was 93%. Patient is maintained on antibiotics with infectious disease following closely along with pulmonary phone counselor. CODE STATUS was addressed once again and patient wishes to remain full code. Wean FiO2 as t olerated. Encouraged oral intake. Patient to be evaluated by physical therapy once respiratory status improved and will need rehab. 10/09/2023 Patient lying in bed, mildly tachypneic with no chest pain He remains on Airvo 60 L/min Vital stable Remains on dexamethasone and Pepcid Objective - Vital Signs Vital signs: Vital Signs Temp 98 F 10/08/23 12:00 Pulse 87 10/08/23 14:00 Resp 18 10/08/23 14:00 BP 128/60 10/08/23 14:00 Pulse Ox 100 10/08/23 14:00 FiO2 90 10/08/23 14:00 Intake & Output 10/07/23 10/08/23 10/08/23 18:59 06:59 18:59 Intake Total 800 100 240 Output Total 5793 082 4021 Balance -210 880 -940 Weight 111.8 kg Intake: IV 100 100 Cefepime 2 gm In Sodium 100 100 Chloride 0.9% 100 ml @ 25 mls/hr IVPB Q8H [facility] Rx#: [id number] Oral 700 0 240 Output: Urine [id number] Other: Voiding Method Indwelling Catheter Indwelling Catheter Indwelling Catheter # Bowel Movements 1 1 - Exam GENERAL: The patient is alert and oriented x3, not in any acute distress. Well developed, well nourished. HEENT: Pupils are round and equally reacting to light. EOMI. No scleral icterus. No conjunctival pallor. Normocephalic, atraumatic. No pharyngeal erythema. No thyromegaly. CARDIOVASCULAR: S1 and S2 present. No murmurs, rubs, or gallops. PULMONARY: Chest is clear to auscultation, no wheezing , no crackles. ABDOMEN: Soft, nontender, nondistended, normoactive bowel sounds. No palpable organomegaly. MUSCULOSKELETAL: No joint swelling or deformity. EXTREMITIES: No cyanosis, clubbing, or pedal edema. NEUROLOGICAL: Gross neurological examination did not reveal any focal deficits. SKIN: No rashes. no petechiae. - Labs CBC & Chem 7: 10/08/23 04:11 10/08/23 04:11 Labs: Abnormal Lab Results - Last 24 Hours (Table) 10/07/23 10/07/23 10/08/23 Range/Units 16:55 21:02 04:11 WBC 14.3 H (3.8-10.6) k/uL RBC 4.05 L (4.30-5.90) m/uL Hgb 11.8 L (13.0-17.5) gm/dL Hct 36.6 L (39.0-53.0) % Neutrophils # 12.0 H (1.3-7.7) k/uL Sodium (137-145) mmol/L Chloride (98-107) mmol/L Carbon Dioxide (22-30) mmol/L BUN (9-20) mg/dL Glucose (74-99) mg/dL POC Glucose (mg/dL) 148 H 145 H (70-110) mg/dL 10/08/23 10/08/23 10/08/23 Range/Units 04:11 07:08 12:26 WBC (3.8-10.6) k/uL RBC (4.30-5.90) m/uL Hgb (13.0-17.5) gm/dL Hct (39.0-53.0) % Neutrophils # (1.3-7.7) k/uL Sodium 131 L (137-145) mmol/L Chloride 96 L (98-107) mmol/L Carbon Dioxide 31 H (22-30) mmol/L BUN 37 H (9-20) mg/dL Glucose 137 H (74-99) mg/dL POC Glucose (mg/dL) 138 H 114 H (70-110) mg/dL Assessment and Plan Assessment: Hyponatremia secondary to poor oral intake, improved COVID-19 Acute hypoxic respiratory failure secondary to COVID-19, now requiring high flow Airvo Altered mental status, with toxic metabolic encephalopathy likely secondary to hypoxia as patient continues to remove oxygen mask from his face Generalized weakness Rhabdomyolysis Fall Urinary retention requiring indwelling Rosales catheter Hypothyroidism Hypertension Obesity with a BMI of 35.0 Plan: Patient is continued on high flow oxygen and with intermittent nonrebreather at 15 L and continues to be somewhat hypoxic continued on max Airvo. Patient had respiratory decline overnight with nursing reporting continued low oxygen saturations into the low 80s and removing the Airvo and a team was called and patient was brought to the ICU for closer monitoring. Pulmonary and nephrology following along with infectious disease. Patient is maintained on cefepime and will continue Patient having increased confusion likely secondary to hypoxia as he keeps removing his tubing and masks from his face and desatting quickly CODE STATUS was addressed and patient wishes to remain full code and is agreeable to mechanical ventilation if needed. Will need to discuss further with family as well regarding overall treatment plan, readdressing code Stratus once again, and the need for ECF once patient stabilizes and is discharged PT/OT following awaiting to evaluate the patient once respiratory status improves Patient will need rehab as patient has had prolonged hospitalization and continued weakness Prognosis is guarded
[2023-10-08 21:06] LABS: Glucose,Whole Blood 175 mg/dL (70-110)
[2023-10-09 04:39] LABS: Basophils # (A) 0.1 k/uL (0-0.2); Basophils % (A) 0 %; Eosinophils % (A) 0 %; HCT 37.7 % (39.0-53.0); HGB 12.7 gm/dL (13.0-17.5); Lymphocytes # (A) 1.3 k/uL (1.0-4.8); Lymphocytes % (A) 8 %; MCH 30.4 pg (25.0-35.0); MCHC 33.7 g/dL (31.0-37.0); MCV 90.1 fL (80.0-100.0); Mean Platelet Volume 9.6; Monocytes # (A) 0.7 k/uL (0-1.0); Monocytes % (A) 4 %; Neutrophils # (A) 14.7 k/uL (1.3-7.7); Neutrophils % (A) 86 %; Platelet Count 162 k/uL (150-450); RBC 4.18 m/uL (4.30-5.90); RDW 13.2 % (11.5-15.5); WBC 17.1 k/uL (3.8-10.6)
[2023-10-09 04:50] LABS: African American GFR (CKD) >90 (>60 ml/min/1.73 sqM); Anion Gap 7 mmol/L; Blood Urea Nitrogen 37 mg/dL (9-20); Calcium 8.7 mg/dL (8.4-10.2); Carbon Dioxide 31 mmol/L (22-30); Chloride 92 mmol/L (98-107); Glucose 135 mg/dL (74-99); Non-African American GFR(CKD) 87 (>60 ml/min/1.73 sqM); Potassium 4.2 mmol/L (3.5-5.1); Sodium 130 mmol/L (137-145)
[2023-10-09 07:01] LABS: Glucose,Whole Blood 118 mg/dL (70-110)
--- NOTE | 2023-10-09 07:15 | XR ---
EXAM: XR chest 1V portable CLINICAL INDICATION:Male, 77 years old with history of CoVID pneumonia; [facility] COMPARISON: 10/07/2023 and before TECHNIQUE: Chest single view. FINDINGS: Lines/tubes/devices: EKG leads and other extrinsic structures overlie the chest. Cardiomediastinum: Cardiac silhouette appears stable, mildly to moderately enlarged. Stable mediastinal silhouette. Atherosclerotic calcifications of the aorta. Vasculature: No increased pulmonary vasculature. Lungs/pleura: Asymmetric elevation of the right hemidiaphragm again noted. Similar bibasilar opacities with slightl y blunted costophrenic angles. Suspect background chronic interstitial changes, may be from COPD. Bones/soft tissues: Bony thorax appears grossly stable as seen with mild degenerative changes. Regional soft tissues appe ar unremarkable. IMPRESSION: 1. Cardiomegaly. 2. Infiltrates or atelectasis in the lung bases, with similar elevation of the right hemidiaphragm. Possible small pleural effusions.
--- NOTE | 2023-10-09 10:27 | P.PN ---
Subjective Progress Note Date: 10/09/23 Principal diagnosis: Weakness. Generalized weakness secondary to COVID-19 infection and hyponatremia with possible diaphragm paralysis and acute hypoxic respiratory failure This is a 77-year-old male patient with a history of hypertension, seizure disorder, thyroid disorder, former smoker. On September 27, 2023 the patient had gotten up to go the bathroom and slumped onto the ground. He had been reportedly laying on the ground for several hours by family were attempting to get in helping him get up but he was unable to support himself. He also had trouble with urinary incontinence. EMS was called and he was brought here for evaluation. CT scan of the brain revealed no acute intracranial hemorrhage, midline shift or mass effect. EKG revealed sinus rhythm with no significant ST or T wave abnormalities. White count 14.9. Hemoglobin 12.9. Platelets 146. Sodium 126. Potassium 3.9. Bicarb 26. BUN 15. Creatinine 0.68. Glucose 152. AST 148. ALT 43. Creatinine kinase 2283. He did test positive for COVID-19 infection. His initial sodium level was 118. BUN of 24 and a creatinine of 1.26. He had been seen by nephrology, urology and infectious disease. A chest x-ray was done today September 30, 2023 that revealed an elevated right hemidiaphragm and we are consulted for the same. He was sent for a sniff test however the patient was unable to perform the appropriate maneuvers due to overall condition. He is seen on consultation on the selective care unit. He is currently resting in bed. Difficult to arouse but arousable. He is on a nonrebreather mask with O2 saturation of 90%. Currently afebrile. Hemodynamically stable. He has been initiated on Decadron. Antibiotics in the form of cefepime. Saline at 50 MLS per hour. Patient was evaluated today on 10/01/2023, more awake today, more responsive, seems to be more alert, and remains on a nonrebreather mask which I have recommended to transition to high flow nasal cannula. Patient did transition to 10 L high flow nasal cannula and O2 saturation was ranging between 92 up to 96% definitely better today compared to the last couple of days. Still planning to repeat his sniff test to evaluate for right hemidiaphragm paralysis. Procalcitonin level came back elevated at 0.43, patient remains on antibiotics for presumptive right lower lobe pneumonia. WBC count today 13.9 hemoglobin 13.0.Basic metabolic profile is relatively normal. Reevaluated today on 10/02/2023, patient is on 10 L high flow nasal cannula, doing better, breathing easier, O2 saturation is in the low 90s, patient continues to have diminished breath sounds at the right base, and I believe the patient has right hemidiaphragm paralysis with right lower lobe atelectasis, possible underlying pneumonia, but I feel clinically this is not the picture. At any rate the patient is supposed to have a sniff test tomorrow, may even have to consider a CT of the chest to evaluate the right lower lobe further. Based on the sniff test, further recommendations will follow. In the meantime patient is gradually improving, feeling better, breathing easier and definitely his neurological status is significantly improved now compared to how he was few days ago WBC count is 10.2 hemoglobin is 12.3, sodium is up to 130, potassium 3.1 renal profile is normal procalcitonin level on this patient was 0.43, hence he was empirically placed on antibiotics for presumptive right lower lobe pneumonia Progress note dated October 03, 2023. The patient is seen today in room 362. He continues on a nonrebreather mask. Previously, he was on 15 L high flow oxygen. Because of saturations in the high 80s, the nurse switched him to a nonrebreather mask. Currently his saturations are in the low 90s. The patient continues on Decadron, and cefepime. He is getting saline at 50 cc an hour. His procalcitonin level is 0.43. Laboratory data includes a white count 11.3, hemoglobin 13, hematocrit 39.6, and a platelet count of 196,000. Sodium 132, potassium 3.3, chloride 97, CO2 30, BUN 15, creatinine 0.51. The patient's albumin is 2.8. AST is 101, and ALT is 53. Chest x-ray shows some basilar atelectasis or infiltrate, with an elevated right diaphragm, and possible effusion. Progress note dated October 04, 2023. 77-year-old male, seen today in room 362. The patient was initially on a nonrebreather, but saturations were only in the mid 80s. The patient was converted to Airvo, with settings of 60 L/min, with an FiO2 of 95%. His saturations then increased to 88 to 90%. The patient is not receiving any IV fluids. No new labs today. Labs from October 03 have been reviewed. Microbiologic sampling, is negative or pending. Chest x-ray reveals borderline cardiomegaly, with ongoing asymmetric elevation of the right hemidiaphragm. There is increasing patchy bibasilar atelectasis/infiltrate. Progress note dated October 05, 2023. 77-year-old male seen today in room 362. Currently, the patient is on Airvo, with settings of 60 L/min and an FiO2 of 90%. The patient is also wearing a nonrebreather mask, over the Airvo nasal cannula. The patient continues on Decadron and cefepime. We have asked for chest x-ray tomorrow. Clinically, the patient looks reasonably stable, and does not appear to be short of breath. I have asked the nurse, to call respiratory, to adjust his Airvo nasal cannula, and a nonrebreather mask. No new labs today. Progress note dated October 06, 2023. 77-year-old male, seen today in room 256. The patient's respiratory status declined through the night, and the patient was transferred down to the intensive care unit. The patient had blood gases, showing a pO2 of 126, pCO2 of 21, and a pH of 7.70. This blood gas is consistent with a mixed respiratory and metabolic alkalosis. The patient did test positive initially for coronavirus. He is currently on Airvo, with settings of 60 L/min and an FiO2 of 90%. In addition, he is getting a nonrebreather mask. The patient is not receiving any IV fluids. Saturations are in the low to mid 90s. The patient continues on cefepime. Labs include a white count 15, hemoglobin 13.4, hematocrit 39.6, and a platelet count of 181,000. Sodium 133, potassium 3.2, chlorides 96, CO2 29, BUN 28, creatinine 0.81. Glucose is 110. Calcium is 8.4. Chest x-ray shows some patchy mid and lower lung opacities, either the same from the previous x- ray, or mildly improved. There is also elevation of the right diaphragm. Progress note dated October 07, 2023. 77-year-old male seen today in room 256. The patient is currently on Airvo, at 60 L/min with an FiO2 of 90%. Saturations are between 92 and 93%. Occasionall y, he has a nonrebreather mask, over the Airvo nasal cannula. He is not receiving any IV fluids. He had an uneventful night according to the nurses. His white count is 15.7, hemoglobin 12.4, hematocrit 37.9, and platelet count is normal. Sodium 134, potassium 3.8, chlorides 98, CO2 29, BUN 32, creatinine 0.8. Glucose 141. Calcium 8.4. Chest x-ray is unchanged and shows similar patchy infiltrates, in the mid and lower lung zones, with the right diaphragm elevation. Progress note dated October 08, 2023. 77-year-old male seen today in room 256. The patient is currently on Airvo, at 60 L/min, with an FiO2 of 80%. Yesterday, he was on 90%. He is not receiving any IV fluids. We can discontinue isolation. In addition, he has been on cefepime for some time, so that we will be discontinued as well. Current labs include a white count of 14.3, hemoglobin 11.8, hematocrit 36.6, and a normal platelet count of 153,000. Sodium 131, potassium 4, chloride 96, CO2 31, BUN 37, creatinine 0.71. Glucose is 137. Calcium 8.5. Magnesium 2.0. Yesterday's chest x-ray was unchanged. Progress note dated October 09, 2023. 77-year-old male, again seen in room 256. The patient was admitted with a diagnosis of coronavirus infection, and probable coronavirus associated pneumonia. The patient is currently on Airvo, with settings of 60 L/min and an FiO2 of 85%. The patient is not receiving any IV fluids. His chest x-ray today, looks a bit better. Clinically, he is about the same. Current labs include a white count of 17.1, hemoglobin 12.7, hematocrit 37.7, and a normal platelet count. Sodium 130, potassium 4.2, chlorides 92, CO2 31, BUN 37, creatinine 0.8. The patient's glucose was 118. Calcium 8.7. Objective - Vital Signs Vital signs: Vital Signs Temp 98.1 F 10/09/23 08:00 Pulse 97 10/09/23 10:00 Resp 21 10/09/23 10:00 BP 148/80 10/09/23 10:00 Pulse Ox 96 10/09/23 10:00 FiO2 85 10/09/23 10:00 Intake & Output 10/08/23 10/09/23 10/09/23 18:59 06:59 18:59 Intake Total 360 120 Output Total 1380 890 430 Balance -1020 -890 -310 Weight 110.9 kg Intake: Oral 360 120 Output: Urine 1380 890 430 Other: Voiding Method Indwelling Catheter Indwelling Catheter Indwelling Catheter # Bowel Movements 1 - Exam No acute distress, awake, currently on Airvo. HEENT examination is grossly unremarkable. Mucous membranes are moist. No oral lesions. Neck supple. Full range of motion. No adenopathy thyromegaly or neck vein distention. Cardiovascular examination reveals regular rhythm rate. S1-S2 normal. No S3 or S4. No discernible murmur noted. Heart sounds are distant. Heart rate 97 bpm. Lungs reveal electively clear but diminished breath sounds throughout. Minimal rhonchi. No wheezes. No crackles. Saturations are 94%. Abdomen soft bowel sounds are heard. No masses or tenderness. Extremities are intact. No cyanosis clubbing or edema. Skin is without rash or lesion. Neurologic examination is brief but nonfocal. - Labs CBC & Chem 7: 10/09/23 03:49 10/09/23 03:49 Labs: Abnormal Lab Results - Last 24 Hours (Table) 10/08/23 10/08/23 10/08/23 Range/Units 12:26 16:50 21:04 WBC (3.8-10.6) k/uL RBC (4.30-5.90) m/uL Hgb (13.0-17.5) gm/dL Hct (39.0-53.0) % Neutrophils # (1.3-7.7) k/uL Sodium (137-145) mmol/L Chloride (98-107) mmol/L Carbon Dioxide (22-30) mmol/L BUN (9-20) mg/dL Glucose (74-99) mg/dL POC Glucose (mg/dL) 114 H 140 H 175 H (70-110) mg/dL 10/09/23 10/09/23 10/09/23 Range/Units 03:49 03:49 06:59 WBC 17.1 H (3.8-10.6) k/uL RBC 4.18 L (4.30-5.90) m/uL Hgb 12.7 L (13.0-17.5) gm/dL Hct 37.7 L (39.0-53.0) % Neutrophils # 14.7 H (1.3-7.7) k/uL Sodium 130 L (137-145) mmol/L Chloride 92 L (98-107) mmol/L Carbon Dioxide 31 H (22-30) mmol/L BUN 37 H (9-20) mg/dL Glucose 135 H (74-99) mg/dL POC Glucose (mg/dL) 118 H (70-110) mg/dL Assessment and Plan Assessment: Acute hypoxemic respiratory failure secondary to right lower lobe atelec tasis/consolidation, and possible pneumonia. Generalized weakness, likely secondary to coronavirus infection, and hyponatremia. Acute mental status changes, likely secondary to metabolic encephalopathy. Acute coronavirus infection, without evidence of coronavirus associated pneumonia. Right diaphragm elevation, and possible paresis/paralysis. Hyponatremia. Acute kidney injury. Rhabdomyolysis. History of seizure disorder. History of hypothyroidism. History of hypertension. Previous history of tobacco use. Plan: Plan dated October 03, 2023. The patient is seen today in room 362. The nurse recently changed him from 15 L high flow nasal prongs, to a nonrebreather mask. His saturations are in the low 90s. The patient continues on Decadron, and cefepime. He is also receiving saline at 50 cc an hour. His procalcitonin level was 0.43. Labs, x-rays, and medications are reviewed. We will continue to follow the patient, make recommendations along the way. Prognosis is certainly guarded. Plan dated October 04, 2023. The patient is seen today in room 362. The patient was on a nonrebreather mask, but because of low saturations, respiratory change the patient to Airvo, with settings of 60 L/min, and an FiO2 of 95%. The patient continues on Decadron, cefepime, zinc, vitamin D3, and vitamin C. Additional recommendations and suggestions are forthcoming. The patient's overall prognosis remains guarded. Chest x-ray has been reviewed. Labs, x-rays, and medications are reviewed. Overall prognosis remains guarded. CODE STATUS should be addressed. No additional recommendations at this time. Plan dated October 05, 2023. The patient is currently on Airvo, and a nonrebreather mask. Saturations are in the high 80s, low 90s. A chest x-ray will be obtained tomorrow. I have asked the nurse to call respiratory, to adjust his Airvo nasal cannula, and nonrebreather mask, to maximize his oxygen. Labs, x-rays, medications are reviewed. The patient continues on Decadron, and cefepime. Labs, x-rays, and medications are reviewed. The prognosis is guarded. We will continue to follow the patient, make recommendations along the way. CODE STATUS should be addressed on this patient. Plan dated October 06, 2023. The patient's respiratory status declined overnight, and he was transferred down to the intensive care unit. I was notified, by the nighttime nurse, about the rapid response team, and, I told them, to transfer the patient to the ICU, should the situation declined further. He is currently on Airvo device, at 60 L/min, with an FiO2 of 90%. In addition, he is on a nonrebreather mask. He continues on appropriate medications, including cefepime, Decadron, and, I will add some inhalers. Additional recommendations and suggestions are forthcoming. Prognosis is guarded. We will continue to follow the patient, and make recomme ndations. I attempted to have a conversation with the patient today about CODE STATUS, but he really could not make a decision. Plan dated October 07, 2023. The patient is currently on Airvo, 60 L/min, with an FiO2 of 90%. The nurses state, that the patient will use his nonrebreather, from time to time as well. Currently, his saturations are in the low 90s. He is not receiving any IV fluids. His chest x-ray is unchanged. Labs, x-rays, and medications are reviewed. CODE STATUS should be addressed by the primary service. Currently, he is on albuterol inhaler, Symbicort, cefepime, and Decadron. Additional recommendations and suggestions are forthcoming. Prognosis is very guarded. Plan dated October 08, 2023. The patient remains critically ill in the intensive care unit. He is seen today in room 256. The patient's currently on Airvo, at 60 L/min, with an FiO2 of 80%. The patient is not receiving any IV fluids. We can discontinue the isolation. Will also discontinue the cefepime. Labs, x-rays, and medications are reviewed. He continues on albuterol, Symbicort, and Decadron. Additional recommendations and suggestions are forthcoming. Prognosis is guarded. We did ask for chest x-ray tomorrow. Plan dated October 09, 2023. The patient's overall respiratory status remains critical. He is very tenuous, and sometimes, his saturations dropped into the mid 80s. He continues on Airvo. Labs, x-rays, medications are reviewed. In my opinion, his chest x-ray may be a bit better. Radiologist thought the x-ray was about the same. We will continue with his current medications. We did just discontinue his cefepime. Labs, x-rays, and medications are all reviewed. He continues on albuterol, Symbicort, Decadron. Prognosis is certainly guarded. Time with Patient: Greater than 30
--- NOTE | 2023-10-09 10:41 | P.PN ---
Subjective Patient is seen for follow-up for hyponatremia. Currently hypervolemic and being diuresed. Currently with indwelling Rosales catheter for urine retention. Serum sodium at 130 today tolerating oral intake. He remains on high flow oxygen. Lower extremity swelling is improved. Shortness of breath appears slightly improved as well. Objective - Vital Signs Vital signs: Vital Signs Temp 98.1 F 10/09/23 08:00 Pulse 97 10/09/23 10:00 Resp 21 10/09/23 10:00 BP 148/80 10/09/23 10:00 Pulse Ox 96 10/09/23 10:00 FiO2 85 10/09/23 10:00 Intake & Output 10/08/23 10/09/23 10/09/23 18:59 06:59 18:59 Intake Total 360 120 Output Total 1380 890 430 Balance -1020 -890 -310 Weight 110.9 kg Intake: Oral 360 120 Output: Urine 1380 890 430 Other: Voiding Method Indwelling Catheter Indwelling Catheter Indwelling Catheter # Bowel Movements 1 - Exam On examination patient is comfortable. No acute distress Alert oriented 3 Examination of the heart S1 and S2 Examination of the lungs his breath sounds at the bases with bilateral wheezing heard Abdomen is soft nontender Examination of lower extremity shows edema 1+ bilaterally LEGAL AIDE exam grossly intact - Labs CBC & Chem 7: 10/09/23 03:49 10/09/23 03:49 Labs: Abnormal Lab Results - Last 24 Hours (Table) 10/08/23 10/08/23 10/08/23 Range/Units 12:26 16:50 21:04 WBC (3.8-10.6) k/uL RBC (4.30-5.90) m/uL Hgb (13.0-17.5) gm/dL Hct (39.0-53.0) % Neutrophils # (1.3-7.7) k/uL Sodium (137-145) mmol/L Chloride (98-107) mmol/L Carbon Dioxide (22-30) mmol/L BUN (9-20) mg/dL Glucose (74-99) mg/dL POC Glucose (mg/dL) 114 H 140 H 175 H (70-110) mg/dL 10/09/23 10/09/23 10/09/23 Range/Units 03:49 03:49 06:59 WBC 17.1 H (3.8-10.6) k/uL RBC 4.18 L (4.30-5.90) m/uL Hgb 12.7 L (13.0-17.5) gm/dL Hct 37.7 L (39.0-53.0) % Neutrophils # 14.7 H (1.3-7.7) k/uL Sodium 130 L (137-145) mmol/L Chloride 92 L (98-107) mmol/L Carbon Dioxide 31 H (22-30) mmol/L BUN 37 H (9-20) mg/dL Glucose 135 H (74-99) mg/dL POC Glucose (mg/dL) 118 H (70-110) mg/dL Assessment and Plan Assessment: 1. Hyponatremia. Currently hypervolemic. Sodium level 118 on admission -it is 130 today TSH normal. Urine osmolality 543. Urine sodium less than 20. TSH normal. Status post IV fluids on initial admission. Also received 1 dose of Samsca initially. Currently hypervolemic and being diuresed. 2. Acute kidney injury secondary to urinary retention. Creatinine 1.26 on admission and resolved at 0.7. No proteinuria on UA. No hydronephrosis noted on kidney ultrasound. 3. Urinary retention status post Rosales catheter placement. On Flomax. Urology following. 4. Benign hypertension. Controlled. 5. Hypokalemia from poor intake and postobstructive diuresis. Magnesium normal. 6. Rhabdomyolysis secondary to fall. CK level trending down. Plan: Continue with IV Lasix Add small dose of Samsca today Repeat labs in a.m. Increase oral intake of protein.
[2023-10-09 11:24] LABS: Glucose,Whole Blood 160 mg/dL (70-110)
--- NOTE | 2023-10-09 11:53 | P.PN ---
Subjective Progress Note Date: 10/09/23 77-year-old gentleman past medical history significant for hypothyroidism, hypertension who presented to the ER for generalized weakness and fall. Patient was brought in by family members, apparently patient was trying to use the restroom when he lost all his strength and slumped to the ground. There was no complaint of any loss of consciousness. No complaint of weakness of any extremity. Family did not notice any slurred speech or facial droop. There was no complaint of fever or chills. No complaint of nausea, vomiting, abdominal pain. Patient's family tried to help him to get up but they were unable to lift him. They called EMS and they brought him to ER. Initial lab work done in the ER showed WBC 10.5, hemoglobin 15.2, platelet count 165, sodium 118, potassium 4.1, BUN 24, creatinine 1.26, plasma lactate 4.1, troponin 0.012 UA negative for any infection EKG done in the ER showed heart rate of 75, no ST segment elevation or depression seen, no T-wave inversions seen. Chest x-ray done in the ER no acute cardiopulmonary process CT head done showed no acute intracranial process Patient admitted to internal medicine service 09/29. Patient seen and examined. COVID-19 came back positive. Currently on 4 L of oxygen. Sodium this morning is 121. Still complain lethargy and weakness. Patient also diagnosed with COVID 09/30. Patient seen and examined. Blood work done this morning showed WBC 14.9, hemoglobin 12.9, platelet count 146, sodium 126, potassium 3.9, BUN 15, cr eatinine 0.68. States he feels much better. Shortness of breath is improved. 10/01. Patient seen and examined. Still on 15 L of oxygen via nonrebreather. States he feels better. Sodium level improved to 132, potassium 3.3, BUN 18, creatinine 0.65. Lethargy has improved. 10/02. Patient seen and examined. Currently on 8 L of oxygen via high flow nasal cannula. States he feels much better, breathing is improved, pulmonology recommended sniff test to look for right diaphragm paralysis 10/03. Patient seen and examined. Continues to be on 15 L of oxygen. Patient is not lethargic, states gets short of breath on exertion. Denies any nausea or vomiting 10/04/2023 Patient seen and evaluated in follow-up today continues to be dyspneic maintained on high flow oxygen is being transferred to [facility]. Per nursing staff he continues to remove his nasal cannula as well as nonrebreather and respiratory following recommending i continuing this for a few hours. Patient has noted to be COVID-positive. Sodium is slightly low at 132 potassium was 3.3 yesterday and replaced awaiting follow-up labs. Patient with prolonged hospitalization and continued weakness will likely need ECF once stabilized. 10/05/2023 Patient is seen in follow-up this morning continues on Airvo with maximum oxygen at 60/90 maintaining oxygen saturations in the 88 percentile range. Patient reports having worsening shortness of breath although appears somewhat confused at times. Discussed CODE STATUS with the patient and he wishes to remain full code. Patient is agreeable to mechanical ventilation if required. Patient continues to remove his oxygen from his face desats very quickly. Will get a chest x-ray and continue to monitor closely. Pulmonary and infectious disease following and patient is continued on cefepime with concerns of pneumonia. Patient is currently afebrile and denies chest pain or shortness of breath. Patient reports he is eating although not much of an appetite. 10/06/2023 Patient is seen in follow-up today was transferred to the ICU for respiratory decline per nursing staff as patient continued to have respiratory distress and low oxygen saturations becoming more hypoxic and confused. Patient is continued on Airvo max 60/90 with continued intermittent nonrebreather use. Patient is continued on steroids along with inhalers and pulmonary is following closely. Patient is afebrile with no reported chest pain or shortness of breath. Patient reports to tolerating diet although appears not to be eating very much at all. 10/07/2023 Patient is seen and evaluated in follow-up today continues in the ICU on high flow Airvo 60 L / 90% with oxygen saturations in the low 90s. On exam patient was found to have Airvo out of his nostrils and using nonrebreather and oxygen saturation was 93%. Patient is maintained on antibiotics with infectious disease following closely along with pulmonary human resource statistician. CODE STATUS was addressed once again and patient wishes to remain full code. Wean FiO2 as tolerated. Encouraged oral intake. Patient to be evaluated by physical therapy once respiratory status improved and will need rehab. 10/08/2023 Patient lying in bed, mildly tachypneic with no chest pain He remains on Airvo 60 L/min Vital stable Remains on dexamethasone and Pepcid 10/09/2023 Dr NUÑEZ Assumed care Patient seen and evaluated bedside, patient remains on heated high flow, patient states breathing has improved, continue current medications including breathing treatments, continue patient on Symbicort, albuterol as needed, patient monitored by medical ICU received 1 dose of tolvaptan as well PHYSICAL EXAMINATION: GENERAL: The patient is alert and oriented x3, ill appearance, nasal cannula in place HEENT: Pupils are round and equally reacting to light. EOMI. No scleral icterus. No conjunctival pallor. Normocephalic, atraumatic. No pharyngeal erythema. No thyromegaly. CARDIOVASCULAR: S1 and S2 present. No murmurs, rubs, or gallops. PULMONARY: Decreased breath sounds bilaterally ABDOMEN: Soft, nontender, nondistended, normoactive bowel sounds. No palpable organomegaly. MUSCULOSKELETAL: No joint swelling or deformity. EXTREMITIES: No cyanosis, clubbing, lower extremity edema noted NEUROLOGICAL: Gross neurological examination did not reveal any focal deficits. SKIN: No rashes. Objective - Vital Signs Vital signs: Vital Signs Temp 98.1 F 10/09/23 08:00 Pulse 92 10/09/23 08:00 Resp 22 10/09/23 08:00 BP 146/84 10/09/23 08:00 Pulse Ox 95 10/09/23 08:00 FiO2 90 10/09/23 08:00 Intake & Output 10/08/23 10/09/23 10/09/23 18:59 06:59 18:59 Intake Total 360 120 Output Total 1380 890 80 Balance -1020 -890 40 Weight 110.9 kg Intake: Oral 360 120 Output: Urine 1380 890 80 Other: Voiding Method Indwelling Catheter Indwelling Catheter Indwelling Catheter # Bowel Movements 1 - Labs CBC & Chem 7: 10/09/23 03:49 10/09/23 03:49 Labs: Abnormal Lab Results - Last 24 Hours (Table) 10/08/23 10/08/23 10/08/23 Range/Units 12:26 16:50 21:04 WBC (3.8-10.6) k/uL RBC (4.30-5.90) m/uL Hgb (13.0-17.5) gm/dL Hct (39.0-53.0) % Neutrophils # (1.3-7.7) k/uL Sodium (137-145) mmol/L Chloride (98-107) mmol/L Carbon Dioxide (22-30) mmol/L BUN (9-20) mg/dL Glucose (74-99) mg/dL POC Glucose (mg/dL) 114 H 140 H 175 H (70-110) mg/dL 10/09/23 10/09/23 10/09/23 Range/Units 03:49 03:49 06:59 WBC 17.1 H (3.8-10.6) k/uL RBC 4.18 L (4.30-5.90) m/uL Hgb 12.7 L (13.0-17.5) gm/dL Hct 37.7 L (39.0-53.0) % Neutrophils # 14.7 H (1.3-7.7) k/uL Sodium 130 L (137-145) mmol/L Chloride 92 L (98-107) mmol/L Carbon Dioxide 31 H (22-30) mmol/L BUN 37 H (9-20) mg/dL Glucose 135 H (74-99) mg/dL POC Glucose (mg/dL) 118 H (70-110) mg/dL Assessment and Plan Assessment: Assessment and plan Acute encephalopathy multifactorial secondary to hypoxia underlying metabolic abnormality History of seizure disorder Acute hyponatremia Acute respiratory distress syndrome secondary to COVID-19 Urinary retention s/p Rosales catheter in place Hypertension Hypothyroidism Obesity BMI 35 * Regards to encephalopathy multifactorial secondary to hypoxemia as well as hyponatremia, mentation has improved patient is alert and oriented x 3. Continue management and medical ICU * In regards to history of seizure disorder continue patient on Depakote * In regards to acute hyponatremia, nephrology following patient given 1 dose of tolvaptan * In regards to acute respiratory failure, COVID-19 infection continue patient on diuretics with Lasix continue oxygen supplementation pulmonary medicine following * Regards to hypertension continue patient on oral hydralazine, Lasix, amlodipine * Gnosis is guarded secondary to prolonged hospitalization and underlying comorbidities Time with Patient: Greater than 30
[2023-10-09] MEDS: TOLVAPTAN 15 MG TABLET PO ONE (12:51)
--- NOTE | 2023-10-09 14:09 | P.PN ---
Subjective Progress Note Date: 10/09/23 Principal diagnosis: Reason for follow-up is COVID-19 and pneumonia Patient is a 77-year-old male with a past medical history significant for hypertension seizure disorder hypothyroidism patient has been brought into the hospital for evaluation of generalized weakness patient was noticed to be on the bathroom floor after apparently patient fell down, patient did tested positive for COVID-19, initial chest x-ray reported negative. On today's evaluation that is 10/09/2023, Patient is afebrile ,patient is currently on high flow nasal cannula oxygen FiO2 is down to 50% and denies having any shortness of breath, the patient denies any chest pain, did have occasional cough, the patient denies any nausea vomiting did not have any abdominal pain and no diarrhea. Patient white count is up to 17.1, creatinine 0.80 Objective - Vital Signs Vital signs: Vital Signs Temp 97.9 F 10/09/23 12:00 Pulse 92 10/09/23 13:00 Resp 25 H 10/09/23 13:00 BP 112/89 10/09/23 13:00 Pulse Ox 99 10/09/23 13:00 FiO2 80 10/09/23 13:00 Intake & Output 10/08/23 10/09/23 10/09/23 18:59 06:59 18:59 Intake Total 360 360 Output Total 1380 890 690 Balance -1020 -890 -330 Weight 110.9 kg Intake: Oral 360 360 Output: Urine 1380 890 690 Other: Voiding Method Indwelling Catheter Indwelling Catheter Indwelling Catheter # Bowel Movements 1 - Exam GENERAL DESCRIPTION: An elderly male lying in bed in no distress RESPIRATORY SYSTEM: Unlabored breathing , decreased breath sounds at bases HEART: S1 S2 regular rate and rhythm , ABDOMEN: Soft , no tenderness EXTREMITIES: No edema feet - Labs CBC & Chem 7: 10/09/23 03:49 10/09/23 03:49 Labs: Abnormal Lab Results - Last 24 Hours (Table) 10/08/23 10/08/23 10/09/23 Range/Units 16:50 21:04 03:49 WBC 17.1 H (3.8-10.6) k/uL RBC 4.18 L (4.30-5.90) m/uL Hgb 12.7 L (13.0-17.5) gm/dL Hct 37.7 L (39.0-53.0) % Neutrophils # 14.7 H (1.3-7.7) k/uL Sodium (137-145) mmol/L Chloride (98-107) mmol/L Carbon Dioxide (22-30) mmol/L BUN (9-20) mg/dL Glucose (74-99) mg/dL POC Glucose (mg/dL) 140 H 175 H (70-110) mg/dL 10/09/23 10/09/23 10/09/23 Range/Units 03:49 06:59 11:22 WBC (3.8-10.6) k/uL RBC (4.30-5.90) m/uL Hgb (13.0-17.5) gm/dL Hct (39.0-53.0) % Neutrophils # (1.3-7.7) k/uL Sodium 130 L (137-145) mmol/L Chloride 92 L (98-107) mmol/L Carbon Dioxide 31 H (22-30) mmol/L BUN 37 H (9-20) mg/dL Glucose 135 H (74-99) mg/dL POC Glucose (mg/dL) 118 H 160 H (70-110) mg/dL Assessment and Plan (1) COVID-19 Current Visit: Yes Status: Acute Code(s): U07.1 - COVID-19 SNOMED Code(s): 660226362 (2) Sepsis Current Visit: Yes Status: Acute Code(s): A41.9 - SEPSIS, UNSPECIFIED ORGANISM SNOMED Code(s): 34556856 (3) Pneumonia Current Visit: Yes Status: Acute Code(s): J18.9 - PNEUMONIA, UNSPECIFIED ORGANISM SNOMED Code(s): 882912391 (4) Penicillin allergy Current Visit: Yes Status: Acute Code(s): Z88.0 - ALLERGY STATUS TO PENICILLIN SNOMED Code(s): 77726175 Plan: 1patient presented to hospital generalized weakness and did have a fall source likely multifactorial. He tested positive for COVID-19 however initial chest x- ray was negative for acute infiltrate however subsequent x-ray shows worsening bibasilar infiltrate concerning for possible secondary bacterial pneumonia for the patient to complete his course of antibiotic therapy 2-patient remains to be afebrile, worsening white count more likely steroid related and will be monitored closely, dexamethasone has been discontinued today we will repeat his CBC with a.m. lab Dictation was produced using [employer] dictation software. please excuse any grammatical, word or spelling errors. Time with Patient: Less than 30
[2023-10-09 16:10] LABS: Glucose,Whole Blood 180 mg/dL (70-110)
[2023-10-09 16:33] LABS: Glucose,Whole Blood 182 mg/dL (70-110)
[2023-10-09 20:01] LABS: Glucose,Whole Blood 189 mg/dL (70-110)
[2023-10-10 04:26] LABS: HCT 38.4 % (39.0-53.0); HGB 12.5 gm/dL (13.0-17.5); MCH 29.2 pg (25.0-35.0); MCHC 32.6 g/dL (31.0-37.0); MCV 89.4 fL (80.0-100.0); Mean Platelet Volume 9.4; Platelet Count 196 k/uL (150-450); RDW 13.1 % (11.5-15.5); WBC 16.5 k/uL (3.8-10.6)
[2023-10-10 04:38] LABS: African American GFR (CKD) 88 (>60 ml/min/1.73 sqM); Anion Gap 8 mmol/L; Blood Urea Nitrogen 38 mg/dL (9-20); Calcium 8.9 mg/dL (8.4-10.2); Carbon Dioxide 32 mmol/L (22-30); Chloride 90 mmol/L (98-107); Glucose 148 mg/dL (74-99); Non-African American GFR(CKD) 76 (>60 ml/min/1.73 sqM); Potassium 4.1 mmol/L (3.5-5.1); Sodium 130 mmol/L (137-145)
[2023-10-10 07:30] LABS: Glucose,Whole Blood 123 mg/dL (70-110)
--- NOTE | 2023-10-10 08:25 | XR ---
EXAMINATION TYPE: XR chest 1V portable DATE OF EXAM: 10/10/2023 COMPARISON: 10/09/2023 INDICATION: High O2 demand respiratory status TECHNIQUE: Single frontal view of the chest is obtained. FINDINGS: The heart size is normal. The pulmonary vasculature is normal. Mild infiltrates are within the base of the right upper lung field along the major fissure in the lef t lower lobe. Correlate for atelectasis and pneumonia. Findings have slight improvement from comparis on. Continued follow-up is recommended IMPRESSION: 1. Bilateral lung infiltrates. Follow-up is recommended.
[2023-10-10] MEDS: ENOXAPARIN 40 MG/0.4 ML SYRINGE SQ SCH (09:20)
[2023-10-10] MEDS: TOLVAPTAN 15 MG TABLET PO ONE (09:20)
--- NOTE | 2023-10-10 09:30 | P.PN ---
Subjective Patient is seen in follow-up for hyponatremia. Sodium level 130 this morning. Has Rosales catheter. Nonoliguric. On IV Lasix. Vital signs are stable. General: No acute distress. HEENT: Head exam is unremarkable. On high flow nasal cannula. LUNGS: Scattered rhonchi. HEART: Rate and Rhythm are regular. ABDOMEN: Nontender. EXTREMITITES: Trace edema. Objective - Vital Signs Vital signs: Vital Signs Temp 98.5 F 10/10/23 04:00 Pulse 72 10/10/23 07:00 Resp 24 10/10/23 07:00 BP 142/72 10/10/23 07:00 Pulse Ox 94 L 10/10/23 07:54 FiO2 55 10/10/23 07:54 Intake & Output 10/09/23 10/10/23 10/10/23 18:59 06:59 18:59 Intake Total 600 120 Output Total 1020 1035 55 Balance -420 -915 -55 Weight 113 kg Intake: Oral 600 120 Output: Urine 1020 1035 55 Other: Voiding Method Indwelling Catheter Indwelling Catheter - Labs CBC & Chem 7: 10/10/23 03:58 10/10/23 03:58 Labs: Abnormal Lab Results - Last 24 Hours (Table) 10/09/23 10/09/23 10/09/23 Range/Units 11:22 16:08 16:32 WBC (3.8-10.6) k/uL Hgb (13.0-17.5) gm/dL Hct (39.0-53.0) % Sodium (137-145) mmol/L Chloride (98-107) mmol/L Carbon Dioxide (22-30) mmol/L BUN (9-20) mg/dL Glucose (74-99) mg/dL POC Glucose (mg/dL) 160 H 180 H 182 H (70-110) mg/dL 10/09/23 10/10/23 10/10/23 Range/Units 20:00 03:58 03:58 WBC 16.5 H (3.8-10.6) k/uL Hgb 12.5 L (13.0-17.5) gm/dL Hct 38.4 L (39.0-53.0) % Sodium 130 L (137-145) mmol/L Chloride 90 L (98-107) mmol/L Carbon Dioxide 32 H (22-30) mmol/L BUN 38 H (9-20) mg/dL Glucose 148 H (74-99) mg/dL POC Glucose (mg/dL) 189 H (70-110) mg/dL 10/10/23 Range/Units 07:28 WBC (3.8-10.6) k/uL Hgb (13.0-17.5) gm/dL Hct (39.0-53.0) % Sodium (137-145) mmol/L Chloride (98-107) mmol/L Carbon Dioxide (22-30) mmol/L BUN (9-20) mg/dL Glucose (74-99) mg/dL POC Glucose (mg/dL) 123 H (70-110) mg/dL Assessment and Plan Plan: Assessment: 1. Hyponatremia. Due to urinary retention and hypervolemia. Sodium level st able at 130. TSH normal. Urine osmolality 543. Urine sodium less than 20. TSH normal. 2. Acute kidney injury secondary to urinary retention. Creatinine 1.26 on admission - 0.97 today. No proteinuria on UA. No hydronephrosis noted on kidney ultrasound. 3. Urinary retention status post Rosales catheter placement. On Flomax. Urology following. 4. Benign hypertension. Controlled. 5. Hypokalemia from poor intake and postobstructive diuresis. Magnesium normal. Replaced. Now normal. 6. Rhabdomyolysis secondary to fall. CK level improved. Plan: Maintain IV Lasix. Repeat Samsca 7.5 mg once today. Add 1200 cc fluid restriction. Follow-up echocardiogram. Avoid nephrotoxins. Continue to monitor renal function and urine output. Repeat labs in the morning.
--- NOTE | 2023-10-10 11:16 | P.PN ---
Subjective Progress Note Date: 10/10/23 77-year-old gentleman past medical history significant for hypothyroidism, hypertension who presented to the ER for generalized weakness and fall. Patient was brought in by family members, apparently patient was trying to use the restroom when he lost all his strength and slumped to the ground. There was no complaint of any loss of consciousness. No complaint of weakness of any extremity. Family did not notice any slurred speech or facial droop. There was no complaint of fever or chills. No complaint of nausea, vomiting, abdominal pain. Patient's family tried to help him to get up but they were unable to lift him. They called EMS and they brought him to ER. Initial lab work done in the ER showed WBC 10.5, hemoglobin 15.2, platelet count 165, sodium 118, potassium 4.1, BUN 24, creatinine 1.26, plasma lactate 4.1, troponin 0.012 UA negative for any infection EKG done in the ER showed heart rate of 75, no ST segment elevation or depression seen, no T-wave inversions seen. Chest x-ray done in the ER no acute cardiopulmonary process CT head done showed no acute intracranial process Patient admitted to internal medicine service 09/29. Patient seen and examined. COVID-19 came back positive. Currently on 4 L of oxygen. Sodium this morning is 121. Still complain lethargy and weakness. Patient also diagnosed with COVID 09/30. Patient seen and examined. Blood work done this morning showed WBC 14.9, hemoglobin 12.9, platelet count 146, sodium 126, potassium 3.9, BUN 15, cr eatinine 0.68. States he feels much better. Shortness of breath is improved. 10/01. Patient seen and examined. Still on 15 L of oxygen via nonrebreather. States he feels better. Sodium level improved to 132, potassium 3.3, BUN 18, creatinine 0.65. Lethargy has improved. 10/02. Patient seen and examined. Currently on 8 L of oxygen via high flow nasal cannula. States he feels much better, breathing is improved, pulmonology recommended sniff test to look for right diaphragm paralysis 10/03. Patient seen and examined. Continues to be on 15 L of oxygen. Patient is not lethargic, states gets short of breath on exertion. Denies any nausea or vomiting 10/04/2023 Patient seen and evaluated in follow-up today continues to be dyspneic maintained on high flow oxygen is being transferred to [facility]. Per nursing staff he continues to remove his nasal cannula as well as nonrebreather and respiratory following recommending i continuing this for a few hours. Patient has noted to be COVID-positive. Sodium is slightly low at 132 potassium was 3.3 yesterday and replaced awaiting follow-up labs. Patient with prolonged hospitalization and continued weakness will likely need ECF once stabilized. 10/05/2023 Patient is seen in follow-up this morning continues on Airvo with maximum oxygen at 60/90 maintaining oxygen saturations in the 88 percentile range. Patient reports having worsening shortness of breath although appears somewhat confused at times. Discussed CODE STATUS with the patient and he wishes to remain full code. Patient is agreeable to mechanical ventilation if required. Patient continues to remove his oxygen from his face desats very quickly. Will get a chest x-ray and continue to monitor closely. Pulmonary and infectious disease following and patient is continued on cefepime with concerns of pneumonia. Patient is currently afebrile and denies chest pain or shortness of breath. Patient reports he is eating although not much of an appetite. 10/06/2023 Patient is seen in follow-up today was transferred to the ICU for respiratory decline per nursing staff as patient continued to have respiratory distress and low oxygen saturations becoming more hypoxic and confused. Patient is continued on Airvo max 60/90 with continued intermittent nonrebreather use. Patient is continued on steroids along with inhalers and pulmonary is following closely. Patient is afebrile with no reported chest pain or shortness of breath. Patient reports to tolerating diet although appears not to be eating very much at all. 10/07/2023 Patient is seen and evaluated in follow-up today continues in the ICU on high flow Airvo 60 L / 90% with oxygen saturations in the low 90s. On exam patient was found to have Airvo out of his nostrils and using nonrebreather and oxygen saturation was 93%. Patient is maintained on antibiotics with infectious disease following closely along with pulmonary [employer] barista. CODE STATUS was addressed once again and patient wishes to remain full code. Wean FiO2 as tolerated. Encouraged oral intake. Patient to be evaluated by physical therapy once respiratory status improved and will need rehab. 10/08/2023 Patient lying in bed, mildly tachypneic with no chest pain He remains on Airvo 60 L/min Vital stable Remains on dexamethasone and Pepcid 10/09/2023 Dr NUÑEZ Assumed care Patient seen and evaluated bedside, patient remains on heated high flow, patient states breathing has improved, continue current medications including breathing treatments, continue patient on Symbicort, albuterol as needed, patient monitored by medical ICU received 1 dose of tolvaptan as well 10/10/2023: Patient seen and evaluated bedside, patient breathing has improved, echocardiogram in process, vitals reviewed, on 60% FiO2 45 L saturation 93%. Continue Lasix, continue to monitor intake and output PHYSICAL EXAMINATION: GENERAL: The patient is alert and oriented x3, ill appearance, nasal cannula in place HEENT: Pupils are round and equally reacting to light. EOMI. No scleral icterus. No conjunctival pallor. Normocephalic, atraumatic.= CARDIOVASCULAR: S1 and S2 present. PULMONARY: Decreased breath sounds bilaterally ABDOMEN: Soft, nontender, nondistended, normoactive bowel sounds. No palpable organomegaly. MUSCULOSKELETAL: No joint swelling or deformity. EXTREMITIES: No cyanosis, clubbing, lower extremity edema noted NEUROLOGICAL: Gross neurological examination did not reveal any focal deficits. SKIN: No rashes. Objective - Vital Signs Vital signs: Vital Signs Temp 98.3 F 10/10/23 08:00 Pulse 84 10/10/23 10:00 Resp 16 10/10/23 10:00 BP 128/65 10/10/23 10:00 Pulse Ox 93 L 10/10/23 10:00 FiO2 60 10/10/23 08:00 Intake & Output 10/09/23 10/10/23 10/10/23 18:59 06:59 18:59 Intake Total 600 120 725 Output Total 1020 1035 200 Balance -420 -915 525 Weight 113 kg Intake: Oral 600 120 725 Output: Urine 1020 1035 200 Other: Voiding Method Indwelling Catheter Indwelling Catheter Indwelling Catheter - Labs CBC & Chem 7: 10/10/23 03:58 10/10/23 03:58 Labs: Abnormal Lab Results - Last 24 Hours (Table) 10/09/23 10/09/23 10/09/23 Range/Units 11:22 16:08 16:32 WBC (3.8-10.6) k/uL Hgb (13.0-17.5) gm/dL Hct (39.0-53.0) % Sodium (137-145) mmol/L Chloride (98-107) mmol/L Carbon Dioxide (22-30) mmol/L BUN (9-20) mg/dL Glucose (74-99) mg/dL POC Glucose (mg/dL) 160 H 180 H 182 H (70-110) mg/dL 10/09/23 10/10/23 10/10/23 Range/Units 20:00 03:58 03:58 WBC 16.5 H (3.8-10.6) k/uL Hgb 12.5 L (13.0-17.5) gm/dL Hct 38.4 L (39.0-53.0) % Sodium 130 L (137-145) mmol/L Chloride 90 L (98-107) mmol/L Carbon Dioxide 32 H (22-30) mmol/L BUN 38 H (9-20) mg/dL Glucose 148 H (74-99) mg/dL POC Glucose (mg/dL) 189 H (70-110) mg/dL 10/10/23 Range/Units 07:28 WBC (3.8-10.6) k/uL Hgb (13.0-17.5) gm/dL Hct (39.0-53.0) % Sodium (137-145) mmol/L Chloride (98-107) mmol/L Carbon Dioxide (22-30) mmol/L BUN (9-20) mg/dL Glucose (74-99) mg/dL POC Glucose (mg/dL) 123 H (70-110) mg/dL Assessment and Plan Assessment: Assessment and plan Acute encephalopathy multifactorial secondary to hypoxia underlying metabolic abnormality History of seizure disorder Acute hyponatremia Acute respiratory distress syndrome secondary to COVID-19 Urinary retention s/p Rosales catheter in place Hypertension Hypothyroidism Obesity BMI 35 * In Regards to encephalopathy multifactorial secondary to hypoxemia as well as hyponatremia, mentation has improved patient is alert and oriented x 3. Continue management and medical ICU * In regards to history of seizure disorder continue patient on Depakote * In regards to acute hyponatremia, nephrology following patient given 1 dose of tolvaptan 10/09, follow-up sodium 130 * In regards to acute respiratory failure, COVID-19 infection continue patient on diuretics with Lasix till euvolemia achieved which would include no peripheral edema minimal pleural effusions continue oxygen supplementation pulmonary medicine following * Regards to hypertension continue patient on oral hydralazine, Lasix, amlodipine * Gnosis is guarded secondary to prolonged hospitalization and underlying com orbidities Time with Patient: Greater than 30
[2023-10-10 11:24] LABS: Glucose,Whole Blood 120 mg/dL (70-110)
--- NOTE | 2023-10-10 11:40 | P.PN ---
Subjective Progress Note Date: 10/10/23 Principal diagnosis: Reason for follow-up is COVID-19 and pneumonia Patient is a 77-year-old male with a past medical history significant for hypertension seizure disorder hypothyroidism patient has been brought into the hospital for evaluation of generalized weakness patient was noticed to be on the bathroom floor after apparently patient fell down, patient did tested positive for COVID-19, initial chest x-ray reported negative. On today's evaluation that is 10/10/2023,the patient denies any fever or any chills, patient is breathing comfortably and is down to 50% FiO2, the patient denies chest pain shortness of breath and no significant cough or sputum produc tion, patient denies abdominal pain, no nausea vomiting or diarrhea. Patient white count is 16.5 slightly less than yesterday creatinine 0.97 Objective - Vital Signs Vital signs: Vital Signs Temp 98.3 F 10/10/23 08:00 Pulse 84 10/10/23 10:00 Resp 16 10/10/23 10:00 BP 128/65 10/10/23 10:00 Pulse Ox 94 L 10/10/23 11:13 FiO2 50 10/10/23 11:13 Intake & Output 10/09/23 10/10/23 10/10/23 18:59 06:59 18:59 Intake Total 600 120 725 Output Total 1020 1035 200 Balance -420 -915 525 Weight 113 kg Intake: Oral 600 120 725 Output: Urine 1020 1035 200 Other: Voiding Method Indwelling Catheter Indwelling Catheter Indwelling Catheter - Exam GENERAL DESCRIPTION: An elderly male lying in bed in no distress RESPIRATORY SYSTEM: Unlabored breathing , decreased breath sounds at bases HEART: S1 S2 regular rate and rhythm , ABDOMEN: Soft , no tenderness EXTREMITIES: No edema feet - Labs CBC & Chem 7: 10/10/23 03:58 10/10/23 03:58 Labs: Abnormal Lab Results - Last 24 Hours (Table) 10/09/23 10/09/23 10/09/23 Range/Units 16:08 16:32 20:00 WBC (3.8-10.6) k/uL Hgb (13.0-17.5) gm/dL Hct (39.0-53.0) % Sodium (137-145) mmol/L Chloride (98-107) mmol/L Carbon Dioxide (22-30) mmol/L BUN (9-20) mg/dL Glucose (74-99) mg/dL POC Glucose (mg/dL) 180 H 182 H 189 H (70-110) mg/dL 10/10/23 10/10/23 10/10/23 Range/Units 03:58 03:58 07:28 WBC 16.5 H (3.8-10.6) k/uL Hgb 12.5 L (13.0-17.5) gm/dL Hct 38.4 L (39.0-53.0) % Sodium 130 L (137-145) mmol/L Chloride 90 L (98-107) mmol/L Carbon Dioxide 32 H (22-30) mmol/L BUN 38 H (9-20) mg/dL Glucose 148 H (74-99) mg/dL POC Glucose (mg/dL) 123 H (70-110) mg/dL 10/10/23 Range/Units 11:22 WBC (3.8-10.6) k/uL Hgb (13.0-17.5) gm/dL Hct (39.0-53.0) % Sodium (137-145) mmol/L Chloride (98-107) mmol/L Carbon Dioxide (22-30) mmol/L BUN (9-20) mg/dL Glucose (74-99) mg/dL POC Glucose (mg/dL) 120 H (70-110) mg/dL Assessment and Plan (1) COVID-19 Current Visit: Yes Status: Acute Code(s): U07.1 - COVID-19 SNOMED Code(s): 211399070 (2) Sepsis Current Visit: Yes Status: Acute Code(s): A41.9 - SEPSIS, UNSPECIFIED ORGANISM SNOMED Code(s): 86611695 (3) Pneumonia Current Visit: Yes Status: Acute Code(s): J18.9 - PNEUMONIA, UNSPECIFIED ORGANISM SNOMED Code(s): 846329513 (4) Penicillin allergy Current Visit: Yes Status: Acute Code(s): Z88.0 - ALLERGY STATUS TO PENICILLIN SNOMED Code(s): 11378620 (5) Thrush Current Visit: Yes Status: Acute Code(s): B37.0 - CANDIDAL STOMATITIS SNOMED Code(s): 94486563 (6) Thrush, oral Current Visit: Yes Status: Acute Code(s): B37.0 - CANDIDAL STOMATITIS SN OMED Code(s): 06301766 Plan: 1patient presented to hospital generalized weakness and did have a fall source likely multifactorial. He tested positive for COVID-19 however initial chest x- ray was negative for acute infiltrate however subsequent x-ray shows worsening bibasilar infiltrate concerning for possible secondary bacterial pneumonia for the patient to complete his course of antibiotic therapy 2-patient leukocytosis which is multifactorial possible steroid related also have a component of thrush we will add nystatin swish and swallow and see re sponse Dictation was produced using [employer] dictation software. please excuse any grammatical, word or spelling errors. Time with Patient: Less than 30
--- NOTE | 2023-10-10 13:06 | P.PN ---
Subjective Progress Note Date: 10/10/23 This is a 77-year-old male patient with a history of hypertension, seizure disorder, thyroid disorder, former smoker. On September 27, 2023 the patient had gotten up to go the bathroom and slumped onto the ground. He had been reportedly laying on the ground for several hours by family were attempting to get in helping him get up but he was unable to support himself. He also had trouble with urinary incontinence. EMS was called and he was brought here for evaluation. CT scan of the brain revealed no acute intracranial hemorrhage, midline shift or mass effect. EKG revealed sinus rhythm with no significant ST or T wave abnormalities. White count 14.9. Hemoglobin 12.9. Platelets 146. Sodium 126. Potassium 3.9. Bicarb 26. BUN 15. Creatinine 0.68. Glucose 152. AST 148. ALT 43. Creatinine kinase 2283. He did test positive for COVID-19 infection. His initial sodium level was 118. BUN of 24 and a creatinine of 1.26. He had been seen by nephrology, urology and infectious disease. A chest x-ray was done today September 30, 2023 that revealed an elevated right hemidiaphragm and we are consulted for the same. He was sent for a sniff test however the patient was unable to perform the appropriate maneuvers due to overall condition. He is seen on consultation on the selective care unit. He is currently resting in bed. Difficult to arouse but arousable. He is on a nonrebreather mask with O2 saturation of 90%. Currently afebrile. Hemodynamically stable. He has been initiated on Decadron. Antibiotics in the form of cefepime. Saline at 50 MLS per hour. Patient was evaluated today on 10/01/2023, more awake today, more responsive, seems to be more alert, and remains on a nonrebreather mask which I have recommended to transition to high flow nasal cannula. Patient did transition to 10 L high flow nasal cannula and O2 saturation was ranging between 92 up to 96% definitely better today compared to the last couple of days. Still planning to repeat his sniff test to evaluate for right hemidiaphragm paralysis. Procalcitonin level came back elevated at 0.43, patient remains on antibiotics for presumptive right lower lobe pneumonia. WBC count today 13.9 hemoglobin 13.0.Basic metabolic profile is relatively normal. Reevaluated today on 10/02/2023, patient is on 10 L high flow nasal cannula, doing better, breathing easier, O2 saturation is in the low 90s, patient continues to have diminished breath sounds at the right base, and I believe the patient has right hemidiaphragm paralysis with right lower lobe atelectasis, possible underlying pneumonia, but I feel clinically this is not the picture. At any rate the patient is supposed to have a sniff test tomorrow, may even have to consider a CT of the chest to evaluate the right lower lobe further. Based on the sniff test, further recommendations will follow. In the meantime patient is gradually improving, feeling better, breathing easier and definitely his neurological status is significantly improved now compared to how he was few days ago WBC count is 10.2 hemoglobin is 12.3, sodium is up to 130, potassium 3.1 renal profile is normal procalcitonin level on this patient was 0.43, hence he was empirically placed on antibiotics for presumptive right lower lobe pneumonia Progress note dated October 03, 2023. The patient is seen today in room 362. He continues on a nonrebreather mask. Previously, he was on 15 L high flow oxygen. Because of saturations in the high 80s, the nurse switched him to a nonrebreather mask. Currently his saturations are in the low 90s. The patient continues on Decadron, and cefepime. He is getting saline at 50 cc an hour. His procalcitonin level is 0.43. Laboratory data includes a white count 11.3, hemoglobin 13, hematocrit 39.6, and a platelet count of 196,000. Sodium 132, potassium 3.3, chloride 97, CO2 30, BUN 15, creatinine 0.51. The patient's albumin is 2.8. AST is 101, and ALT is 53. Chest x-ray shows some basilar atelectasis or infiltrate, with an elevated right diaphragm, and possible effusion. Progress note dated October 04, 2023. 77-year-old male, seen today in room 362. The patient was initially on a nonrebreather, but saturations were only in the mid 80s. The patient was converted to Airvo, with settings of 60 L/min, with an FiO2 of 95%. His saturations then increased to 88 to 90%. The patient is not receiving any IV fluids. No new labs today. Labs from October 03 have been reviewed. Microbiologic sampling, is negative or pending. Chest x-ray reveals borderline cardiomegaly, with ongoing asymmetric elevation of the right hemidiaphragm. There is increasing patchy bibasilar atelectasis/infiltrate. Progress note dated October 05, 2023. 77-year-old male seen today in room 362. Currently, the patient is on Airvo, with settings of 60 L/min and an FiO2 of 90%. The patient is also wearing a nonrebreather mask, over the Airvo nasal cannula. The patient continues on Decadron and cefepime. We have asked for chest x-ray tomorrow. Clinically, the patient looks reasonably stable, and does not appear to be short of breath. I have asked the nurse, to call respiratory, to adjust his Airvo nasal cannula, and a nonrebreather mask. No new labs today. Progress note dated October 06, 2023. 77-year-old male, seen today in room 256. The patient's respiratory status declined through the night, and the patient was transferred down to the intensive care unit. The patient had blood gases, showing a pO2 of 126, pCO2 of 21, and a pH of 7.70. This blood gas is consistent with a mixed respiratory and metabolic alkalosis. The patient did test positive initially for coronavirus. He is currently on Airvo, with settings of 60 L/min and an FiO2 of 90%. In addition, he is getting a nonrebreather mask. The patient is not receiving any IV fluids. Saturations are in the low to mid 90s. The patient continues on cefepime. Labs include a white count 15, hemoglobin 13.4, hematocrit 39.6, and a platelet count of 181,000. Sodium 133, potassium 3.2, chlorides 96, CO2 29, BUN 28, creatinine 0.81. Glucose is 110. Calcium is 8.4. Chest x-ray shows some patchy mid and lower lung opacities, either the same from the previous x- ray, or mildly improved. There is also elevation of the right diaphragm. Progress note dated October 07, 2023. 77-year-old male seen today in room 256. The patient is currently on Airvo, at 60 L/min with an FiO2 of 90%. Saturations are between 92 and 93%. Occasionall y, he has a nonrebreather mask, over the Airvo nasal cannula. He is not receiving any IV fluids. He had an uneventful night according to the nurses. His white count is 15.7, hemoglobin 12.4, hematocrit 37.9, and platelet count is normal. Sodium 134, potassium 3.8, chlorides 98, CO2 29, BUN 32, creatinine 0.8. Glucose 141. Calcium 8.4. Chest x-ray is unchanged and shows similar patchy infiltrates, in the mid and lower lung zones, with the right diaphragm elevation. Progress note dated October 08, 2023. 77-year-old male seen today in room 256. The patient is currently on Airvo, at 60 L/min, with an FiO2 of 80%. Yesterday, he was on 90%. He is not receiving any IV fluids. We can discontinue isolation. In addition, he has been on cefepime for some time, so that we will be discontinued as well. Current labs include a white count of 14.3, hemoglobin 11.8, hematocrit 36.6, and a normal platelet count of 153,000. Sodium 131, potassium 4, chloride 96, CO2 31, BUN 37, creatinine 0.71. Glucose is 137. Calcium 8.5. Magnesium 2.0. Yesterday's chest x-ray was unchanged. Progress note dated October 09, 2023. 77-year-old male, again seen in room 256. The patient was admitted with a diagnosis of coronavirus infection, and probable coronavirus associated pneumonia. The patient is currently on Airvo, with settings of 60 L/min and an FiO2 of 85%. The patient is not receiving any IV fluids. His chest x-ray today, looks a bit better. Clinically, he is about the same. Current labs include a white count of 17.1, hemoglobin 12.7, hematocrit 37.7, and a normal platelet count. Sodium 130, potassium 4.2, chlorides 92, CO2 31, BUN 37, creatinine 0.8. The patient's glucose was 118. Calcium 8.7. On today's evaluation of 10/10/2023, the patient is being seen for a follow-up in the intensive care unit. The patient remains on high flow oxygen and the patient remains on Airvo 45 L with an FiO2 of 60%. Calm and comfortable. The patient has completed course of IV cefepime. The patient also has completed a course of Decadron. Further is being gradually weaned off. No significant cough or sputum production. No chest tightness. No wheezing. He is calm and comfortable. The white cell count of 16.5 with a hemoglobin 12.5 and a platelet count of 196. BUN is at 38 with a creatinine of 0.9 and sodium levels at 130. Hemodynamically stable. No other specific complaints otherwise for now. Chest x-ray shows significant elevation of the right hemidiaphragm along with patchy infiltrative changes consistent with COVID-19 related pneumonia. The patient remains on Lasix 40 mg IV every 12 hours and net fluid balance is -1.3 L over the past 24 hours. Renal function remained stable. Objective - Vital Signs Vital signs: Vital Signs Temp 98.5 F 10/10/23 04:00 Pulse 72 10/10/23 07:00 Resp 24 10/10/23 07:00 BP 142/72 10/10/23 07:00 Pulse Ox 94 L 10/10/23 07:54 FiO2 55 10/10/23 07:54 Intake & Output 10/09/23 10/10/23 10/10/23 18:59 06:59 18:59 Intake Total 600 120 Output Total 1020 1035 55 Balance -420 -915 -55 Weight 113 kg Intake: Oral 600 120 Output: Urine 1020 1035 55 Other: Voiding Method Indwelling Catheter Indwelling Catheter - Exam No acute distress, awake, currently on Airvo. Patient is currently on 45 L with FiO2 of 60% HEENT examination is grossly unremarkable. Mucous membranes are moist. No oral lesions. Neck supple. Full range of motion. No adenopathy thyromegaly or neck vein distention. Cardiovascular examination reveals regular rhythm rate. S1-S2 normal. No S3 or S4. No discernible murmur noted. Heart sounds are distant. Lungs reveal electively clear but diminished breath sounds throughout. Minimal rhonchi. No wheezes. No crackles. Abdomen soft bowel sounds are heard. No masses or tenderness. Extremities are intact. No cyanosis clubbing or edema. Skin is without rash or lesion. Neurologic examination is brief but nonfocal. - Labs CBC & Chem 7: 10/10/23 03:58 10/10/23 03:58 Labs: Abnormal Lab Results - Last 24 Hours (Table) 0210/09/23 10/09/23 Range/Units 11:22 16:08 16:32 WBC (3.8-10.6) k/uL Hgb (13.0-17.5) gm/dL Hct (39.0-53.0) % Sodium (137-145) mmol/L Chloride (98-107) mmol/L Carbon Dioxide (22-30) mmol/L BUN (9-20) mg/dL Glucose (74-99) mg/dL POC Glucose (mg/dL) 160 H 180 H 182 H (70-110) mg/dL 10/09/23 10/10/23 10/10/23 Range/Units 20:00 03:58 03:58 WBC 16.5 H (3.8-10.6) k/uL Hgb 12.5 L (13.0-17.5) gm/dL Hct 38.4 L (39.0-53.0) % Sodium 130 L (137-145) mmol/L Chloride 90 L (98-107) mmol/L Carbon Dioxide 32 H (22-30) mmol/L BUN 38 H (9-20) mg/dL Glucose 148 H (74-99) mg/dL POC Glucose (mg/dL) 189 H (70-110) mg/dL 10/10/23 Range/Units 07:28 WBC (3.8-10.6) k/uL Hgb (13.0-17.5) gm/dL Hct (39.0-53.0) % Sodium (137-145) mmol/L Chloride (98-107) mmol/L Carbon Dioxide (22-30) mmol/L BUN (9-20) mg/dL Glucose (74-99) mg/dL POC Glucose (mg/dL) 123 H (70-110) mg/dL Assessment and Plan Plan: Acute hypoxemic respiratory failure secondary to right lower lobe ate lectasis/consolidation, and possible pneumonia. The acute hypoxic respiratory failure is multifactorial. The patient had an acute COVID-19 related pneumonia with patchy bilateral pulmonary infiltrates in addition to that, the patient has chronic right hemidiaphragmatic paralysis and right hemidiaphragmatic elevation. Most recent chest x-ray that was done on 10/10/2023 showed stable patchy pulm i nfiltrates in the left lower lobe and the right lower lobe. The patient remains on Airvo, at 45 to 45 L with an FiO2 of 60%. The patient completed a course of Decadron. The patient also completed a course of antibiotics with IV cefepime. His procalcitonin at time of admission was 0.43. His D-dimer was also at 0.53. Shortness of breath secondary to above Generalized weakness, likely secondary to coronavirus infection, and hyponatremia. Acute mental status changes, likely secondary to metabolic encephalopathy. Acute coronavirus infection, without evidence of coronavirus associated pneum onia. Right diaphragm elevation, and possible paresis/paralysis. Hyponatremia. Sodium level stable at 130 Acute kidney injury, recovered and renal function has normalized Rhabdomyolysis, stable History of seizure disorder. History of hypothyroidism. History of hypertension. Previous history of tobacco use. Plan The patient is going to need aggressive pulmonary toileting. I am going to provide an incentive spirometer for this patient. Will to gradually try to wean down FiO2 as tolerated to maintain a saturation above 90%. He needs to be on DVT prophylaxis and I am suggesting Lovenox 40 mg subcu every 12 hours. He is also on diuretics and he is receiving Lasix 40 mg IV 12 hours. The fluid balance is negative over the past 72 hours and over the past 24 hours the patient has been -1.3 L. Pain labs are stable. Sodium level is stable. Renal function is stable and normalized. Chest x-ray was reviewed. Outpatient medication has been resumed. He is extremely weak and lethargic. Obtain an echocardiogram if not been done earlier. Will continue to follow.
[2023-10-10] MEDS: NYSTATIN 100,000 UNIT/ML SUSP 500,000 UNIT/5 ML CUP PO SCH (13:14)
[2023-10-10 16:12] LABS: Glucose,Whole Blood 122 mg/dL (70-110)
[2023-10-10 20:24] LABS: Glucose,Whole Blood 145 mg/dL (70-110)
[2023-10-10] MEDS: NYSTATIN 100,000 UNIT/GM POWD 15 GM TOPICAL SCH (21:25)
[2023-10-11 04:31] LABS: HCT 38.7 % (39.0-53.0); HGB 12.6 gm/dL (13.0-17.5); MCH 29.3 pg (25.0-35.0); MCHC 32.6 g/dL (31.0-37.0); MCV 89.9 fL (80.0-100.0); Mean Platelet Volume 9.9; Platelet Count 214 k/uL (150-450); RBC 4.31 m/uL (4.30-5.90); RDW 13.1 % (11.5-15.5); WBC 18.6 k/uL (3.8-10.6)
[2023-10-11 04:47] LABS: African American GFR (CKD) 82 (>60 ml/min/1.73 sqM); Anion Gap 9 mmol/L; Blood Urea Nitrogen 37 mg/dL (9-20); Calcium 8.6 mg/dL (8.4-10.2); Carbon Dioxide 32 mmol/L (22-30); Chloride 90 mmol/L (98-107); Glucose 134 mg/dL (74-99); Non-African American GFR(CKD) 71 (>60 ml/min/1.73 sqM); Potassium 3.5 mmol/L (3.5-5.1); Sodium 131 mmol/L (137-145)
[2023-10-11] MEDS: POTASSIUM CHLORIDE ER 20 MEQ TAB.ER PO SCH (05:31)
[2023-10-11 06:32] LABS: Glucose,Whole Blood 134 mg/dL (70-110)
[2023-10-11 07:55] LABS: HGB 13.5 gm/dL (13.0-17.5); MCH 29.3 pg (25.0-35.0); MCHC 32.9 g/dL (31.0-37.0); MCV 89.1 fL (80.0-100.0); Mean Platelet Volume 11.2; Platelet Count 224 k/uL (150-450); RBC 4.61 m/uL (4.30-5.90); RDW 13.2 % (11.5-15.5); WBC 18.8 k/uL (3.8-10.6)
[2023-10-11 08:19] LABS: African American GFR (CKD) >90 (>60 ml/min/1.73 sqM); Anion Gap 8 mmol/L; Blood Urea Nitrogen 40 mg/dL (9-20); Calcium 8.6 mg/dL (8.4-10.2); Carbon Dioxide 30 mmol/L (22-30); Chloride 92 mmol/L (98-107); Glucose 134 mg/dL (74-99); Non-African American GFR(CKD) 84 (>60 ml/min/1.73 sqM); Sodium 130 mmol/L (137-145)
[2023-10-11 08:21] LABS: Potassium 4.5 mmol/L (3.5-5.1)
--- NOTE | 2023-10-11 08:37 | CA ---
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 18 - 58 / 22 - 52 cm??? LA Volume Index 23.5 cm???/m??? 16 - 28 cm???/m??? Ascending Aorta Diameter 3.6 cm DOPPLER AV Peak Velocity 181.8 cm/s AV Peak Gradient 13.2 mmHg AV Mean Velocity 119.6 cm/s AV Mean Gradient 6.6 mmHg AV Velocity Time Integral 29.8 cm LVOT Peak Velocity 150.9 cm/s LVOT Peak Gradient 9.1 mmHg LVOT Velocity Time Integral 26.5 cm LVOT Stroke Volume 102.3 cm??? LVOT Stroke Volume Index 44.2 ml/m??? LVOT Cardiac Index 3426.7 cm???/min???m??? AV Area Cont Eq vti 3.4 cm??? AV Area Cont Eq pk 3.2 cm??? Mitral E Point Velocity 51.0 cm/s Mitral A Point Velocity 76.0 cm/s Mitral E to A Ratio 0.7 MV Deceleration Time 288.7 ms MV E' Velocity 4.6 cm/s Mitral E to MV E' Ratio 11.1 TR Peak Velocity 273.5 cm/s TR Peak Gradient 29.9 mmHg Right Ventricular Systolic Press 39.9 mmHg PV Peak Velocity 103.4 cm/s PV Peak Gradient 4.3 mmHg FINDINGS Left Ventricle Left ventricular ejection fraction is estimated at 60-65 %. Mildly increased septal wall thickness. Left ventricular cavity size normal. No obvious regional wall motion abnormalities. Right Ventricle Normal right ventricular size and function. Mildly increased right ventricular systolic pressure. Right Atrium Normal right atrial size. Left Atrium Normal left atrial size. Mitral Valve Structurally normal mitral valve. No evidence for mitral valve prolapse. No mitral stenosis. Trace mitral regurgitation. Aortic Valve Trileaflet aortic valve. No aortic valve stenosis or regurgitation. Tricuspid Valve Structurally normal tricuspid valve. No tricuspid stenosis, regurgitation or prolapse. Pulmonic Valve Structurally normal pulmonic valve. No pulmonic stenosis. No pulmonic regurgitation. Pericardium No pericardial effusion. Aorta Normal size aortic root and proximal ascending aorta. CONCLUSIONS Normal LV function Previewed by: Dr. Aravind Dias MD (Electronically Signed) Final Date: 11 October 2023 08:36
--- NOTE | 2023-10-11 10:06 | P.PN ---
Subjective Progress Note Date: 10/11/23 This is a 77-year-old male patient with a history of hypertension, seizure disorder, thyroid disorder, former smoker. On September 27, 2023 the patient had gotten up to go the bathroom and slumped onto the ground. He had been reportedly laying on the ground for several hours by family were attempting to get in helping him get up but he was unable to support himself. He also had trouble with urinary incontinence. EMS was called and he was brought here for evaluation. CT scan of the brain revealed no acute intracranial hemorrhage, midline shift or mass effect. EKG revealed sinus rhythm with no significant ST or T wave abnormalities. White count 14.9. Hemoglobin 12.9. Platelets 146. Sodium 126. Potassium 3.9. Bicarb 26. BUN 15. Creatinine 0.68. Glucose 152. AST 148. ALT 43. Creatinine kinase 2283. He did test positive for COVID-19 infection. His initial sodium level was 118. BUN of 24 and a creatinine of 1.26. He had been seen by nephrology, urology and infectious disease. A chest x-ray was done today September 30, 2023 that revealed an elevated right hemidiaphragm and we are consulted for the same. He was sent for a sniff test however the patient was unable to perform the appropriate maneuvers due to overall condition. He is seen on consultation on the selective care unit. He is currently resting in bed. Difficult to arouse but arousable. He is on a nonrebreather mask with O2 saturation of 90%. Currently afebrile. Hemodynamically stable. He has been initiated on Decadron. Antibiotics in the form of cefepime. Saline at 50 MLS per hour. Patient was evaluated today on 10/01/2023, more awake today, more responsive, seems to be more alert, and remains on a nonrebreather mask which I have recommended to transition to high flow nasal cannula. Patient did transition to 10 L high flow nasal cannula and O2 saturation was ranging between 92 up to 96% definitely better today compared to the last couple of days. Still planning to repeat his sniff test to evaluate for right hemidiaphragm paralysis. Procalcitonin level came back elevated at 0.43, patient remains on antibiotics for presumptive right lower lobe pneumonia. WBC count today 13.9 hemoglobin 13.0.Basic metabolic profile is relatively normal. Reevaluated today on 10/02/2023, patient is on 10 L high flow nasal cannula, doing better, breathing easier, O2 saturation is in the low 90s, patient continues to have diminished breath sounds at the right base, and I believe the patient has right hemidiaphragm paralysis with right lower lobe atelectasis, possible underlying pneumonia, but I feel clinically this is not the picture. At any rate the patient is supposed to have a sniff test tomorrow, may even have to consider a CT of the chest to evaluate the right lower lobe further. Based on the sniff test, further recommendations will follow. In the meantime patient is gradually improving, feeling better, breathing easier and definitely his neurological status is significantly improved now compared to how he was few days ago WBC count is 10.2 hemoglobin is 12.3, sodium is up to 130, potassium 3.1 renal profile is normal procalcitonin level on this patient was 0.43, hence he was empirically placed on antibiotics for presumptive right lower lobe pneumonia Progress note dated October 03, 2023. The patient is seen today in room 362. He continues on a nonrebreather mask. Previously, he was on 15 L high flow oxygen. Because of saturations in the high 80s, the nurse switched him to a nonrebreather mask. Currently his saturations are in the low 90s. The patient continues on Decadron, and cefepime. He is getting saline at 50 cc an hour. His procalcitonin level is 0.43. Laboratory data includes a white count 11.3, hemoglobin 13, hematocrit 39.6, and a platelet count of 196,000. Sodium 132, potassium 3.3, chloride 97, CO2 30, BUN 15, creatinine 0.51. The patient's albumin is 2.8. AST is 101, and ALT is 53. Chest x-ray shows some basilar atelectasis or infiltrate, with an elevated right diaphragm, and possible effusion. Progress note dated October 04, 2023. 77-year-old male, seen today in room 362. The patient was initially on a nonrebreather, but saturations were only in the mid 80s. The patient was converted to Airvo, with settings of 60 L/min, with an FiO2 of 95%. His saturations then increased to 88 to 90%. The patient is not receiving any IV fluids. No new labs today. Labs from October 03 have been reviewed. Microbiologic sampling, is negative or pending. Chest x-ray reveals borderline cardiomegaly, with ongoing asymmetric elevation of the right hemidiaphragm. There is increasing patchy bibasilar atelectasis/infiltrate. Progress note dated October 05, 2023. 77-year-old male seen today in room 362. Currently, the patient is on Airvo, with settings of 60 L/min and an FiO2 of 90%. The patient is also wearing a nonrebreather mask, over the Airvo nasal cannula. The patient continues on Decadron and cefepime. We have asked for chest x-ray tomorrow. Clinically, the patient looks reasonably stable, and does not appear to be short of breath. I have asked the nurse, to call respiratory, to adjust his Airvo nasal cannula, and a nonrebreather mask. No new labs today. Progress note dated October 06, 2023. 77-year-old male, seen today in room 256. The patient's respiratory status declined through the night, and the patient was transferred down to the intensive care unit. The patient had blood gases, showing a pO2 of 126, pCO2 of 21, and a pH of 7.70. This blood gas is consistent with a mixed respiratory and metabolic alkalosis. The patient did test positive initially for coronavirus. He is currently on Airvo, with settings of 60 L/min and an FiO2 of 90%. In addition, he is getting a nonrebreather mask. The patient is not receiving any IV fluids. Saturations are in the low to mid 90s. The patient continues on cefepime. Labs include a white count 15, hemoglobin 13.4, hematocrit 39.6, and a platelet count of 181,000. Sodium 133, potassium 3.2, chlorides 96, CO2 29, BUN 28, creatinine 0.81. Glucose is 110. Calcium is 8.4. Chest x-ray shows some patchy mid and lower lung opacities, either the same from the previous x- ray, or mildly improved. There is also elevation of the right diaphragm. Progress note dated October 07, 2023. 77-year-old male seen today in room 256. The patient is currently on Airvo, at 60 L/min with an FiO2 of 90%. Saturations are between 92 and 93%. Occasionall y, he has a nonrebreather mask, over the Airvo nasal cannula. He is not receiving any IV fluids. He had an uneventful night according to the nurses. His white count is 15.7, hemoglobin 12.4, hematocrit 37.9, and platelet count is normal. Sodium 134, potassium 3.8, chlorides 98, CO2 29, BUN 32, creatinine 0.8. Glucose 141. Calcium 8.4. Chest x-ray is unchanged and shows similar patchy infiltrates, in the mid and lower lung zones, with the right diaphragm elevation. Progress note dated October 08, 2023. 77-year-old male seen today in room 256. The patient is currently on Airvo, at 60 L/min, with an FiO2 of 80%. Yesterday, he was on 90%. He is not receiving any IV fluids. We can discontinue isolation. In addition, he has been on cefepime for some time, so that we will be discontinued as well. Current labs include a white count of 14.3, hemoglobin 11.8, hematocrit 36.6, and a normal platelet count of 153,000. Sodium 131, potassium 4, chloride 96, CO2 31, BUN 37, creatinine 0.71. Glucose is 137. Calcium 8.5. Magnesium 2.0. Yesterday's chest x-ray was unchanged. Progress note dated October 09, 2023. 77-year-old male, again seen in room 256. The patient was admitted with a diagnosis of coronavirus infection, and probable coronavirus associated pneumonia. The patient is currently on Airvo, with settings of 60 L/min and an FiO2 of 85%. The patient is not receiving any IV fluids. His chest x-ray today, looks a bit better. Clinically, he is about the same. Current labs include a white count of 17.1, hemoglobin 12.7, hematocrit 37.7, and a normal platelet count. Sodium 130, potassium 4.2, chlorides 92, CO2 31, BUN 37, creatinine 0.8. The patient's glucose was 118. Calcium 8.7. On today's evaluation of 10/10/2023, the patient is being seen for a follow-up in the intensive care unit. The patient remains on high flow oxygen and the patient remains on Airvo 45 L with an FiO2 of 60%. Calm and comfortable. The patient has completed course of IV cefepime. The patient also has completed a course of Decadron. Further is being gradually weaned off. No significant cough or sputum production. No chest tightness. No wheezing. He is calm and comfortable. The white cell count of 16.5 with a hemoglobin 12.5 and a platelet count of 196. BUN is at 38 with a creatinine of 0.9 and sodium levels at 130. Hemodynamically stable. No other specific complaints otherwise for now. Chest x-ray shows significant elevation of the right hemidiaphragm along with patchy infiltrative changes consistent with COVID-19 related pneumonia. The patient remains on Lasix 40 mg IV every 12 hours and net fluid balance is -1.3 L over the past 24 hours. Renal function remained stable. On today's evaluation of 10/11/2023, the patient is being seen for a follow-up. The patient is oxygenation has improved significantly and the patient was taken off the Airvo this morning and the patient was transitioned to 5 L of oxygen by nasal cannula. He is using incentive spirometer. He remains on IV Lasix. Fluid balance has been -1.3 L over the past 24 hours. BUN is at 40 with a creatinine of 0.8 and a sodium levels of 130. The white cell count is still elevated at 18.8 with a hemoglobin 15.5. Awake and alert and communicating. Completed Decadron. Completed the course of IV antibiotics with IV cefepime. Objective - Vital Signs Vital signs: Vital Signs Temp 98.8 F 10/11/23 04:00 Pulse 103 H 10/11/23 07:00 Resp 18 10/11/23 07:00 BP 101/62 10/11/23 07:00 Pulse Ox 91 L 10/11/23 07:56 FiO2 45 10/11/23 05:15 Intake & Output 10/10/23 10/11/23 10/11/23 18:59 06:59 18:59 Intake Total 1175 120 120 Output Total 935 765 20 Balance 240 -645 100 Weight 110.6 kg Intake: Oral 1175 120 120 Output: Urine 935 765 20 Other: Voiding Method Indwelling Catheter Indwelling Catheter # Bowel Movements 1 1 - Exam No acute distress, awake, currently on Airvo. Patient is currently on 5 L of oxygen nasal cannula HEENT examination is grossly unremarkable. Mucous membranes are moist. No oral lesions. Neck supple. Full range of motion. No adenopathy thyromegaly or neck vein distention. Cardiovascular examination reveals regular rhythm rate. S1-S2 normal. No S3 or S4. No discernible murmur noted. Heart sounds are distant. Lungs reveal electively clear but diminished breath sounds throughout. Minimal rhonchi. No wheezes. Crackles in the lung base bilaterally and the patient has diminished breath sounds right lung base Abdomen soft bowel sounds are heard. No masses or tenderness. Extremities are intact. No cyanosis clubbing or edema. Skin is without rash or lesion. Neurologic examination is brief but nonfocal. - Labs CBC & Chem 7: 10/11/23 07:26 10/11/23 07:26 Labs: Abnormal Lab Results - Last 24 Hours (Table) 10/10/23 10/10/23 10/10/23 Range/Units 11:22 16:11 20:22 WBC (3.8-10.6) k/uL Hgb (13.0-17.5) gm/dL Hct (39.0-53.0) % Sodium (137-145) mmol/L Chloride (98-107) mmol/L Carbon Dioxide (22-30) mmol/L BUN (9-20) mg/dL Glucose (74-99) mg/dL POC Glucose (mg/dL) 120 H 122 H 145 H (70-110) mg/dL 10/11/23 10/11/23 10/11/23 Range/Units 03:46 03:46 06:30 WBC 18.6 H (3.8-10.6) k/uL Hgb 12.6 L (13.0-17.5) gm/dL Hct 38.7 L (39.0-53.0) % Sodium 131 L (137-145) mmol/L Chloride 90 L (98-107) mmol/L Carbon Dioxide 32 H (22-30) mmol/L BUN 37 H (9-20) mg/dL Glucose 134 H (74-99) mg/dL POC Glucose (mg/dL) 134 H (70-110) mg/dL 10/11/23 Range/Units 07:26 WBC 18.8 H (3.8-10.6) k/uL Hgb (13.0-17.5) gm/dL Hct (39.0-53.0) % Sodium (137-145) mmol/L Chloride (98-107) mmol/L Carbon Dioxide (22-30) mmol/L BUN (9-20) mg/dL Glucose (74-99) mg/dL POC Glucose (mg/dL) (70-110) mg/dL Assessment and Plan Plan: Acute hypoxemic respiratory failure secondary to right lower lobe atelectasis/consolidation, and possible pneumonia. The acute hypoxic respiratory failure is multifactorial. The patient had an acute COVID-19 related pneumonia with patchy bilateral pulmonary infiltrates in addition to that, the patient has chronic right hemidiaphragmatic paralysis and right hemidiaphragmatic elevation. Most recent chest x-ray that was done on 10/10/2023 showed stable patchy pulm infiltrates in the left lower lobe and the right lower lobe. The patient remains is improving. Oxygenation is improved and the patient is currently off the Airvo and he was transitioned to 5 L of oxygen by nasal cannula Shortness of breath secondary to above, improving Generalized weakness, likely secondary to coronavirus infection, and hyponatr emia. Acute mental status changes, likely secondary to metabolic encephalopathy. Acute coronavirus infection, without evidence of coronavirus associated pneumonia. Right diaphragm elevation, and possible paresis/paralysis. Hyponatremia. Sodium level stable at 130 Acute kidney injury, recovered and renal function has normalized Rhabdomyolysis, stable History of seizure disorder. History of hypothyroidism. History of hypertension. Previous history of tobacco use. Plan Wean down FiO2 as tolerated currently on 5 L of O2 nasal cannula. Airvo has been discontinued. Aggressive use of incentive spirometer. Continue IV Lasix. Monitor electrolytes. Monitor renal function. Repeat chest x-ray in the morning. Echo of the heart was also completed and the patient has a normal LV function without any valvular abnormalities Continue Lovenox for DVT prophylaxis Continue diuresis Will continue to follow
--- NOTE | 2023-10-11 10:36 | P.PN ---
Subjective Patient is seen in follow-up for hyponatremia. Sodium level 130 this morning. Has Rosales catheter. Nonoliguric. On IV Lasix. GFR at baseline. Vital signs are stable. General: No acute distress. HEENT: Head exam is unremarkable. On 5 L nasal cannula. LUNGS: Scattered rhonchi. HEART: Rate and Rhythm are regular. ABDOMEN: Nontender. EXTREMITITES: Trace edema. Objective - Vital Signs Vital signs: Vital Signs Temp 98.6 F 10/11/23 08:00 Pulse 106 H 10/11/23 10:00 Resp 20 10/11/23 10:00 BP 136/81 10/11/23 10:00 Pulse Ox 91 L 10/11/23 10:00 FiO2 40 10/11/23 08:00 Intake & Output 10/10/23 10/11/23 10/11/23 18:59 06:59 18:59 Intake Total 1175 120 240 Output Total 935 765 255 Balance 240 -645 -15 Weight 110.6 kg Intake: Oral 1175 120 240 Output: Urine 935 765 255 Other: Voiding Method Indwelling Catheter Indwelling Catheter Indwelling Catheter # Bowel Movements 1 1 - Labs CBC & Chem 7: 10/11/23 07:26 10/11/23 07:26 Labs: Abnormal Lab Results - Last 24 Hours (Table) 10/10/23 10/10/23 10/10/23 Range/Units 11:22 16:11 20:22 WBC (3.8-10.6) k/uL Hgb (13.0-17.5) gm/dL Hct (39.0-53.0) % Sodium (137-145) mmol/L Chloride (98-107) mmol/L Carbon Dioxide (22-30) mmol/L BUN (9-20) mg/dL Glucose (74-99) mg/dL POC Glucose (mg/dL) 120 H 122 H 145 H (70-110) mg/dL 10/11/23 10/11/23 10/11/23 Range/Units 03:46 03:46 06:30 WBC 18.6 H (3.8-10.6) k/uL Hgb 12.6 L (13.0-17.5) gm/dL Hct 38.7 L (39.0-53.0) % Sodium 131 L (137-145) mmol/L Chloride 90 L (98-107) mmol/L Carbon Dioxide 32 H (22-30) mmol/L BUN 37 H (9-20) mg/dL Glucose 134 H (74-99) mg/dL POC Glucose (mg/dL) 134 H (70-110) mg/dL 10/11/23 10/11/23 Range/Units 07:26 07:26 WBC 18.8 H (3.8-10.6) k/uL Hgb (13.0-17.5) gm/dL Hct (39.0-53.0) % Sodium 130 L (137-145) mmol/L Chloride 92 L (98-107) mmol/L Carbon Dioxide (22-30) mmol/L BUN 40 H (9-20) mg/dL Glucose 134 H (74-99) mg/dL POC Glucose (mg/dL) (70-110) mg/dL Assessment and Plan Plan: Assessment: 1. Hyponatremia. Due to urinary retention and hypervolemia. Sodium level stable at 130. TSH normal. Urine osmolality 543. Urine sodium less than 20. 2. Acute kidney injury secondary to urinary retention. Creatinine 1.26 on admission - 0.87 today. No proteinuria on UA. No hydronephrosis noted on kidney ultrasound. 3. Urinary retention status post Rosales catheter placement. On Flomax. Urology following. 4. Benign hypertension. Controlled. 5. Hypokalemia from poor intake and postobstructive diuresis. Magnesium normal. Replaced. 6. Rhabdomyolysis secondary to fall. CK level improved. Plan: Maintain IV Lasix. Maintain 1200 cc fluid restriction. Encouraged oral intake. Preserved ejection fraction noted on echocardiogram. Avoid nephrotoxins. Continue to monitor renal function and urine output. Repeat labs in the morning.
--- NOTE | 2023-10-11 11:35 | P.PN ---
Subjective Progress Note Date: 10/11/23 77-year-old gentleman past medical history significant for hypothyroidism, hypertension who presented to the ER for generalized weakness and fall. Patient was brought in by family members, apparently patient was trying to use the restroom when he lost all his strength and slumped to the ground. There was no complaint of any loss of consciousness. No complaint of weakness of any extremity. Family did not notice any slurred speech or facial droop. There was no complaint of fever or chills. No complaint of nausea, vomiting, abdominal pain. Patient's family tried to help him to get up but they were unable to lift him. They called EMS and they brought him to ER. Initial lab work done in the ER showed WBC 10.5, hemoglobin 15.2, platelet count 165, sodium 118, potassium 4.1, BUN 24, creatinine 1.26, plasma lactate 4.1, troponin 0.012 UA negative for any infection EKG done in the ER showed heart rate of 75, no ST segment elevation or depression seen, no T-wave inversions seen. Chest x-ray done in the ER no acute cardiopulmonary process CT head done showed no acute intracranial process Patient admitted to internal medicine service 09/29. Patient seen and examined. COVID-19 came back positive. Currently on 4 L of oxygen. Sodium this morning is 121. Still complain lethargy and weakness. Patient also diagnosed with COVID 09/30. Patient seen and examined. Blood work done this morning showed WBC 14.9, hemoglobin 12.9, platelet count 146, sodium 126, potassium 3.9, BUN 15, cr eatinine 0.68. States he feels much better. Shortness of breath is improved. 10/01. Patient seen and examined. Still on 15 L of oxygen via nonrebreather. States he feels better. Sodium level improved to 132, potassium 3.3, BUN 18, creatinine 0.65. Lethargy has improved. 10/02. Patient seen and examined. Currently on 8 L of oxygen via high flow nasal cannula. States he feels much better, breathing is improved, pulmonology recommended sniff test to look for right diaphragm paralysis 10/03. Patient seen and examined. Continues to be on 15 L of oxygen. Patient is not lethargic, states gets short of breath on exertion. Denies any nausea or vomiting 10/04/2023 Patient seen and evaluated in follow-up today continues to be dyspneic maintained on high flow oxygen is being transferred to [facility]. Per nursing staff he continues to remove his nasal cannula as well as nonrebreather and respiratory following recommending i continuing this for a few hours. Patient has noted to be COVID-positive. Sodium is slightly low at 132 potassium was 3.3 yesterday and replaced awaiting follow-up labs. Patient with prolonged hospitalization and continued weakness will likely need ECF once stabilized. 10/05/2023 Patient is seen in follow-up this morning continues on Airvo with maximum oxygen at 60/90 maintaining oxygen saturations in the 88 percentile range. Patient reports having worsening shortness of breath although appears somewhat confused at times. Discussed CODE STATUS with the patient and he wishes to remain full code. Patient is agreeable to mechanical ventilation if required. Patient continues to remove his oxygen from his face desats very quickly. Will get a chest x-ray and continue to monitor closely. Pulmonary and infectious disease following and patient is continued on cefepime with concerns of pneumonia. Patient is currently afebrile and denies chest pain or shortness of breath. Patient reports he is eating although not much of an appetite. 10/06/2023 Patient is seen in follow-up today was transferred to the ICU for respiratory decline per nursing staff as patient continued to have respiratory distress and low oxygen saturations becoming more hypoxic and confused. Patient is continued on Airvo max 60/90 with continued intermittent nonrebreather use. Patient is continued on steroids along with inhalers and pulmonary is following closely. Patient is afebrile with no reported chest pain or shortness of breath. Patient reports to tolerating diet although appears not to be eating very much at all. 10/07/2023 Patient is seen and evaluated in follow-up today continues in the ICU on high flow Airvo 60 L / 90% with oxygen saturations in the low 90s. On exam patient was found to have Airvo out of his nostrils and using nonrebreather and oxygen saturation was 93%. Patient is maintained on antibiotics with infectious disease following closely along with pulmonary shoe repairer. CODE STATUS was addressed once again and patient wishes to remain full code. Wean FiO2 as tolerated. Encouraged oral intake. Patient to be evaluated by physical therapy once respiratory status improved and will need rehab. 10/08/2023 Patient lying in bed, mildly tachypneic with no chest pain He remains on Airvo 60 L/min Vital stable Remains on dexamethasone and Pepcid 10/09/2023 Dr NUÑEZ Assumed care Patient seen and evaluated bedside, patient remains on heated high flow, patient states breathing has improved, continue current medications including breathing treatments, continue patient on Symbicort, albuterol as needed, patient monitored by medical ICU received 1 dose of tolvaptan as well 10/10/2023: Patient seen and evaluated bedside, patient breathing has improved, echocardiogram in process, vitals reviewed, on 60% FiO2 45 L saturation 93%. Continue Lasix, continue to monitor intake and output 10/11/23: Patient seen and evaluated bedside, patient weaned down to 5 L of oxygen to nasal cannula, significant improvement noted. Patient to be transferred out of medical ICU patient denies of any acute overnight issues continue patient on diuresis with Lasix. PHYSICAL EXAMINATION: GENERAL: The patient is alert and oriented x3, ill appearance, nasal cannula in place HEENT: Pupils are round and equally reacting to light. EOMI. No scleral icterus. No conjunctival pallor. Normocephalic, atraumatic. CARDIOVASCULAR: S1 and S2 present. PULMONARY: Decreased breath sounds bilaterally ABDOMEN: Soft, nontender, nondistended, normoactive bowel sounds. No palpable organomegaly. MUSCULOSKELETAL: No joint swelling or deformity. EXTREMITIES: No cyanosis, clubbing, lower extremity edema noted NEUROLOGICAL: Gross neurological examination did not reveal any focal deficits. SKIN: No rashes. Objective - Vital Signs Vital signs: Vital Signs Temp 99.5 F 10/11/23 00:00 Pulse 110 H 10/11/23 03:00 Resp 26 H 10/11/23 03:00 BP 132/109 10/11/23 03:00 Pulse Ox 92 L 10/11/23 03:00 FiO2 40 10/11/23 00:18 Intake & Output 10/10/23 10/10/23 10/11/23 06:59 18:59 06:59 Intake Total 120 1175 120 Output Total 1035 935 620 Balance -915 240 -500 Weight 113 kg 110.6 kg Intake: Oral 120 1175 120 Output: Urine 1035 935 620 Other: Voiding Method Indwelling Catheter Indwelling Catheter Indwelling Catheter # Bowel Movements 1 - Labs CBC & Chem 7: 10/11/23 07:26 10/11/23 07:26 Labs: Abnormal Lab Results - Last 24 Hours (Table) 10/10/23 10/10/23 10/10/23 Range/Units 07:28 11:22 16:11 WBC (3.8-10.6) k/uL Hgb (13.0-17.5) gm/dL Hct (39.0-53.0) % Sodium (137-145) mmol/L Chloride (98-107) mmol/L Carbon Dioxide (22-30) mmol/L BUN (9-20) mg/dL Glucose (74-99) mg/dL POC Glucose (mg/dL) 123 H 120 H 122 H (70-110) mg/dL 10/10/23 10/11/23 10/11/23 Range/Units 20:22 03:46 03:46 WBC 18.6 H (3.8-10.6) k/uL Hgb 12.6 L (13.0-17.5) gm/dL Hct 38.7 L (39.0-53.0) % Sodium 131 L (137-145) mmol/L Chloride 90 L (98-107) mmol/L Carbon Dioxide 32 H (22-30) mmol/L BUN 37 H (9-20) mg/dL Glucose 134 H (74-99) mg/dL POC Glucose (mg/dL) 145 H (70-110) mg/dL Assessment and Plan Assessment: Assessment and plan Acute encephalopathy multifactorial secondary to hypoxia underlying metabolic abnormality History of seizure disorder Acute hyponatremia Acute respiratory distress syndrome secondary to COVID-19 Urinary retention s/p Rosales catheter in place Hypertension Hypothyroidism Obesity BMI 35 * In Regards to encephalopathy multifactorial secondary to hypoxemia as well as hyponatremia, mentation has improved patient is alert and oriented x 3. Continue management and medical ICU * In regards to history of seizure disorder continue patient on Depakote * In regards to acute hyponatremia, nephrology following patient given 1 dose of tolvaptan 10/09, follow-up sodium 130 * In regards to acute respiratory failure, COVID-19 infection continue patient on diuretics with Lasix till euvolemia achieved which would include no peripheral edema minimal pleural effusions continue oxygen supplementation pulmonary medicine following * Regards to hypertension continue patient on oral hydralazine, Lasix, amlodipine * In regards to urinary retention continue patient on Flomax patient can have a trial of voiding close to discharge * Patient to be transferred out of ICU significant improvement noted as of 10/11 Time with Patient: Greater than 30
[2023-10-11 11:54] LABS: Glucose,Whole Blood 130 mg/dL (70-110)
--- NOTE | 2023-10-11 12:32 | XR ---
EXAMINATION TYPE: XR chest 1V portable DATE OF EXAM: 10/11/2023 Comparison: 10/10/2023 Clinical History: 77-year-old male bilateral lung infiltrates Findings: Low lung volumes. Asymmetric elevation right hemidiaphragm. Patchy bilateral lung opacities slightly increased in the interval. No sizable pleural effusion. Elevation of the hemidiaphragm obscures right heart margin. Impression: Hypoventilatory changes. Similar asymmetric elevation right hemidiaphragm. Slight worsening bilateral patchy infiltrates.
--- NOTE | 2023-10-11 15:03 | P.PN ---
Subjective Progress Note Date: 10/11/23 Principal diagnosis: Reason for follow-up is COVID-19 and pneumonia Patient is a 77-year-old male with a past medical history significant for hypertension seizure disorder hypothyroidism patient has been brought into the hospital for evaluation of generalized weakness patient was noticed to be on the bathroom floor after apparently patient fell down, patient did tested positive for COVID-19, initial chest x-ray reported negative. On today's evaluation that is 10/11/2023,the patient remains to be afebrile, patient is down to 5 L nasal cannula supplemental oxygen and denies any shortness of breath no chest pain or worsening cough.Patient denies having any nausea or vomiting, no abdominal pain and no diarrhea has been reported. Patient white count was 18 point, creatinine 0.87 Objective - Vital Signs Vital signs: Vital Signs Temp 98.2 F 10/11/23 12:00 Pulse 100 10/11/23 12:00 Resp 18 10/11/23 12:00 BP 126/95 10/11/23 12:00 Pulse Ox 93 L 10/11/23 12:00 FiO2 40 10/11/23 08:00 Intake & Output 10/10/23 10/11/23 10/11/23 18:59 06:59 18:59 Intake Total 1175 120 240 Output Total 935 765 255 Balance 240 -645 -15 Weight 110.6 kg Intake: Oral 1175 120 240 Output: Urine 935 765 255 Other: Voiding Method Indwelling Catheter Indwelling Catheter Indwelling Catheter # Bowel Movements 1 1 - Exam GENERAL DESCRIPTION: An elderly male lying in bed in no distress RESPIRATORY SYSTEM: Unlabored breathing , decreased breath sounds at bases HEART: S1 S2 regular rate and rhythm , ABDOMEN: Soft , no tenderness EXTREMITIES: No edema feet - Labs CBC & Chem 7: 10/11/23 07:26 10/11/23 07:26 Labs: Abnormal Lab Results - Last 24 Hours (Table) 10/10/23 10/10/23 10/11/23 Range/Units 16:11 20:22 03:46 WBC 18.6 H (3.8-10.6) k/uL Hgb 12.6 L (13.0-17.5) gm/dL Hct 38.7 L (39.0-53.0) % Sodium (137-145) mmol/L Chloride (98-107) mmol/L Carbon Dioxide (22-30) mmol/L BUN (9-20) mg/dL Glucose (74-99) mg/dL POC Glucose (mg/dL) 122 H 145 H (70-110) mg/dL 10/11/23 10/11/23 10/11/23 Range/Units 03:46 06:30 07:26 WBC 18.8 H (3.8-10.6) k/uL Hgb (13.0-17.5) gm/dL Hct (39.0-53.0) % Sodium 131 L (137-145) mmol/L Chloride 90 L (98-107) mmol/L Carbon Dioxide 32 H (22-30) mmol/L BUN 37 H (9-20) mg/dL Glucose 134 H (74-99) mg/dL POC Glucose (mg/dL) 134 H (70-110) mg/dL 10/11/23 10/11/23 Range/Units 07:26 11:52 WBC (3.8-10.6) k/uL Hgb (13.0-17.5) gm/dL Hct (39.0-53.0) % Sodium 130 L (137-145) mmol/L Chloride 92 L (98-107) mmol/L Carbon Dioxide (22-30) mmol/L BUN 40 H (9-20) mg/dL Glucose 134 H (74-99) mg/dL POC Glucose (mg/dL) 130 H (70-110) mg/dL Assessment and Plan (1) COVID-19 Current Visit: Yes Status: Acute Code(s): U07.1 - COVID-19 SNOMED Code(s): 853509562 (2) Sepsis Current Visit: Yes Status: Acute Code(s): A41.9 - SEPSIS, UNSPECIFIED ORGANISM SNOMED Code(s): 01110596 (3) Pneumonia Current Visit: Yes Status: Acute Code(s): J18.9 - PNEUMONIA, UNSPECIFIED ORGANISM SNOMED Code(s): 130457440 (4) Penicillin allergy Current Visit: Yes Status: Acute Code(s): Z88.0 - ALLERGY STATUS TO PENICILLIN SNOMED Code(s): 45518662 (5) Thrush Current Visit: Yes Status: Acute Code(s): B37.0 - CANDIDAL STOMATITIS SNOMED Code(s): 54315424 (6) Thrush, oral Current Visit: Yes Status: Acute Code(s): B37.0 - CANDIDAL STOMATITIS SNOMED Code(s): 01002332 Plan: 1patient presented to hospital generalized weakness and did have a fall source likely multifactorial. He tested positive for COVID-19 however initial chest x- ray was negative for acute infiltrate however subsequent x-ray shows worsening bibasilar infiltrate concerning for possible secondary bacterial pneumonia for the patient to complete his course of antibiotic therapy 2-patient leukocytosis which is multifactorial possible steroid related also have a component of thrush patient to continue with the nystatin swish and swallow will give him a dose of Diflucan repeat a CBC with a.m. lab and also check inflammatory markers if improvement in the white count to continue with the Diflucan Dictation was produced using [employer] dictation software. please excuse any grammatical, word or spelling errors. Time with Patient: Less than 30
[2023-10-11] MEDS: FLUCONAZOLE 100 MG TAB PO ONE (15:26)
[2023-10-11 16:35] LABS: Glucose,Whole Blood 136 mg/dL (70-110)
[2023-10-11 20:36] LABS: Glucose,Whole Blood 143 mg/dL (70-110)
[2023-10-12 06:19] LABS: Glucose,Whole Blood 132 mg/dL (70-110)
[2023-10-12 08:43] LABS: HCT 38.6 % (39.0-53.0); HGB 12.1 gm/dL (13.0-17.5); MCH 28.3 pg (25.0-35.0); MCHC 31.4 g/dL (31.0-37.0); MCV 90.4 fL (80.0-100.0); Mean Platelet Volume 10.6; Platelet Count 232 k/uL (150-450); RBC 4.28 m/uL (4.30-5.90); RDW 13.3 % (11.5-15.5); WBC 18.4 k/uL (3.8-10.6)
[2023-10-12 08:48] LABS: African American GFR (CKD) 85 (>60 ml/min/1.73 sqM); Anion Gap 9 mmol/L; Blood Urea Nitrogen 36 mg/dL (9-20); Calcium 8.6 mg/dL (8.4-10.2); Carbon Dioxide 30 mmol/L (22-30); Chloride 91 mmol/L (98-107); Glucose 159 mg/dL (74-99); Non-African American GFR(CKD) 74 (>60 ml/min/1.73 sqM); Potassium 3.8 mmol/L (3.5-5.1); Sodium 130 mmol/L (137-145)
--- NOTE | 2023-10-12 10:36 | P.PN ---
Subjective Patient is seen in follow-up for hyponatremia. Sodium level stable at 130 this morning. Has Rosales catheter. Nonoliguric. On IV Lasix. GFR at baseline. Vital signs are stable. General: No acute distress. HEENT: Head exam is unremarkable. On 5 L nasal cannula. LUNGS: Scattered rhonchi. HEART: Rate and Rhythm are regular. ABDOMEN: Nontender. EXTREMITITES: Trace edema. Objective - Vital Signs Vital signs: Vital Signs Temp 98.9 F 10/12/23 08:00 Pulse 108 H 10/12/23 08:00 Resp 18 10/12/23 08:00 BP 127/73 10/12/23 08:00 Pulse Ox 88 L 10/12/23 08:00 FiO2 40 10/11/23 08:00 Intake & Output 10/11/23 10/12/23 10/12/23 18:59 06:59 18:59 Intake Total 360 0 180 Output Total 640 800 Balance -280 -800 180 Weight 146.5 kg Intake: Oral 360 0 180 Output: Urine 640 800 Other: Voiding Method Indwelling Catheter Indwelling Catheter Indwelling Catheter # Bowel Movements 1 - Labs CBC & Chem 7: 10/12/23 07:43 10/12/23 07:43 Labs: Abnormal Lab Results - Last 24 Hours (Table) 10/11/23 10/11/23 10/11/23 Range/Units 11:52 16:34 20:34 WBC (3.8-10.6) k/uL RBC (4.30-5.90) m/uL Hgb (13.0-17.5) gm/dL Hct (39.0-53.0) % Sodium (137-145) mmol/L Chloride (98-107) mmol/L BUN (9-20) mg/dL Glucose (74-99) mg/dL POC Glucose (mg/dL) 130 H 136 H 143 H (70-110) mg/dL 10/12/23 10/12/23 10/12/23 Range/Units 06:15 07:43 07:43 WBC 18.4 H (3.8-10.6) k/uL RBC 4.28 L (4.30-5.90) m/uL Hgb 12.1 L (13.0-17.5) gm/dL Hct 38.6 L (39.0-53.0) % Sodium 130 L (137-145) mmol/L Chloride 91 L (98-107) mmol/L BUN 36 H (9-20) mg/dL Glucose 159 H (74-99) mg/dL POC Glucose (mg/dL) 132 H (70-110) mg/dL Assessment and Plan Plan: Assessment: 1. Hyponatremia. Due to urinary retention and hypervolemia. Sodium level stable at 130. TSH normal. Urine osmolality 543. Urine sodium less than 20. 2. Acute kidney injury secondary to urinary retention. Creatinine 1.26 on admission - 0.99 today. No proteinuria on UA. No hydronephrosis noted on kidney ultrasound. 3. Urinary retention status post Rosales catheter placement. On Flomax. Urology following. 4. Benign hypertension. Controlled. 5. Hypokalemia from poor intake and postobstructive diuresis. Magnesium normal. Replaced. 6. Rhabdomyolysis secondary to fall. CK level improved. Plan: Maintain IV Lasix. Maintain 1200 cc fluid restriction. Encouraged oral intake. Preserved ejection fraction noted on echocardiogram. Avoid nephrotoxins. Continue to monitor renal function and urine output. Samsca 15 mg once today.
--- NOTE | 2023-10-12 11:46 | P.PN ---
Subjective Progress Note Date: 10/12/23 Principal diagnosis: Reason for follow-up is COVID-19 and pneumonia Patient is a 77-year-old male with a past medical history significant for hypertension seizure disorder hypothyroidism patient has been brought into the hospital for evaluation of generalized weakness patient was noticed to be on the bathroom floor after apparently patient fell down, patient did tested positive for COVID-19, initial chest x-ray reported negative. On today's evaluation that is 10/12/2023, the patient continues to be afebrile, the patient is on 5 L nasal cannula oxygen and breathing comfortably, the Pt denies having any chest pain and cough has decreased in intensity , the patient denies having any abdominal pain no vomiting or any diarrhea has been reported by the nursing staff. Patient white count elevated 18.4 creatinine 0.99 procalcitonin is down to 0.18 chest x-ray from this morning is pending Objective - Vital Signs Vital signs: Vital Signs Temp 98.9 F 10/12/23 08:00 Pulse 108 H 10/12/23 08:00 Resp 18 10/12/23 08:00 BP 127/73 10/12/23 08:00 Pulse Ox 88 L 10/12/23 08:00 FiO2 40 10/11/23 08:00 Intake & Output 10/11/23 10/12/23 10/12/23 18:59 06:59 18:59 Intake Total 360 0 180 Output Total 640 800 Balance -280 -800 180 Weight 146.5 kg Intake: Oral 360 0 180 Output: Urine 640 800 Other: Voiding Method Indwelling Catheter Indwelling Catheter Indwelling Catheter # Bowel Movements 1 - Exam GENERAL DESCRIPTION: An elderly male lying in bed in no distress RESPIRATORY SYSTEM: Unlabored breathing , decreased breath sounds at bases HEART: S1 S2 regular rate and rhythm , ABDOMEN: Soft , no tenderness EXTREMITIES: No edema feet - Labs CBC & Chem 7: 10/12/23 07:43 10/12/23 07:43 Labs: Abnormal Lab Results - Last 24 Hours (Table) 10/11/23 10/11/23 10/11/23 Range/Units 11:52 16:34 20:34 WBC (3.8-10.6) k/uL RBC (4.30-5.90) m/uL Hgb (13.0-17.5) gm/dL Hct (39.0-53.0) % Sodium (137-145) mmol/L Chloride (98-107) mmol/L BUN (9-20) mg/dL Glucose (74-99) mg/dL POC Glucose (mg/dL) 130 H 136 H 143 H (70-110) mg/dL Procalcitonin (0.02-0.09) ng/mL 10/12/23 10/12/23 10/12/23 Range/Units 06:15 07:43 07:43 WBC 18.4 H (3.8-10.6) k/uL RBC 4.28 L (4.30-5.90) m/uL Hgb 12.1 L (13.0-17.5) gm/dL Hct 38.6 L (39.0-53.0) % Sodium (137-145) mmol/L Chloride (98-107) mmol/L BUN (9-20) mg/dL Glucose (74-99) mg/dL POC Glucose (mg/dL) 132 H (70-110) mg/dL Procalcitonin 0.18 H (0.02-0.09) ng/mL 10/12/23 Range/Units 07:43 WBC (3.8-10.6) k/uL RBC (4.30-5.90) m/uL Hgb (13.0-17.5) gm/dL Hct (39.0-53.0) % Sodium 130 L (137-145) mmol/L Chloride 91 L (98-107) mmol/L BUN 36 H (9-20) mg/dL Glucose 159 H (74-99) mg/dL POC Glucose (mg/dL) (70-110) mg/dL Procalcitonin (0.02-0.09) ng/mL Assessment and Plan (1) COVID-19 Current Visit: Yes Status: Acute Code(s): U07.1 - COVID-19 SNOMED Code(s): 397729733 (2) Sepsis Current Visit: Yes Status: Acute Code(s): A41.9 - SEPSIS, UNSPECIFIED ORGANISM SNOMED Code(s): 65933274 (3) Pneumonia Current Visit: Yes Status: Acute Code(s): J18.9 - PNEUMONIA, UNSPECIFIED ORGANISM SNOMED Code(s): 617535171 (4) Penicillin allergy Current Visit: Yes Status: Acute Code(s): Z88.0 - ALLERGY STATUS TO PENIC ILLIN SNOMED Code(s): 24372693 (5) Thrush Current Visit: Yes Status: Acute Code(s): B37.0 - CANDIDAL STOMATITIS SNOMED Code(s): 66247567 (6) Thrush, oral Current Visit: Yes Status: Acute Code(s): B37.0 - CANDIDAL STOMATITIS SNOMED Code(s): 91411380 Plan: 1patient presented to hospital generalized weakness and did have a fall source likely multifactorial. He tested positive for COVID-19 however initial chest x- ray was negative for acute infiltrate however subsequent x-ray shows worsening bibasilar infiltrate concerning for possible secondary bacterial pneumonia for the patient to complete his course of antibiotic therapy 2-patient leukocytosis which is multifactorial possible steroid related also have a component of thrush patient to continue with the nystatin swish and swallow, Diflucan has been added as of yesterday will be continued and will repeat CBC with a.m. lab and follow-up on chest x-ray from this morning Dictation was produced using [employer] dictation software. please excuse any grammatical, word or spelling errors. Time with Patient: Less than 30
[2023-10-12 11:48] LABS: Glucose,Whole Blood 155 mg/dL (70-110)
[2023-10-12 12:03] LABS: C Reactive Protein 19.3 mg/dL (<1.0)
--- NOTE | 2023-10-12 12:33 | P.PN ---
Subjective patient is a 77-year-old gentleman past medical history significant for hypothyroidism, hypertension who presented to the ER for generalized weakness and fall. Patient was brought in by family members, apparently patient was trying to use the restroom when he lost all his strength and slumped to the ground. There was no complaint of any loss of consciousness. No complaint of weakness of any extremity. Family did not notice any slurred speech or facial droop. There was no complaint of fever or chills. No complaint of nausea, vomiting, abdominal pain. Patient's family tried to help him to get up but they were unable to lift him. They called EMS and they brought him to ER. Initial lab work done in the ER showed WBC 10.5, hemoglobin 15.2, platelet count 165, sodium 118, potassium 4.1, BUN 24, creatinine 1.26, plasma lactate 4.1, tro ponin 0.012 UA negative for any infection EKG done in the ER showed heart rate of 75, no ST segment elevation or depression seen, no T-wave inversions seen. Chest x-ray done in the ER no acute cardiopulmonary process CT head done showed no acute intracranial process Patient admitted to internal medicine service 09/29. Patient seen and examined. COVID-19 came back positive. Currently on 4 L of oxygen. Sodium this morning is 121. Still complain lethargy and weakness. Patient also diagnosed with COVID 09/30. Patient seen and examined. Blood work done this morning showed WBC 14.9, hemoglobin 12.9, platelet count 146, sodium 126, potassium 3.9, BUN 15, creatinine 0.68. States he feels much better. Shortness of breath is improved. 10/01. Patient seen and examined. Still on 15 L of oxygen via nonrebreather. States he feels better. Sodium level improved to 132, potassium 3.3, BUN 18, creatinine 0.65. Lethargy has improved. 10/02. Patient seen and examined. Currently on 8 L of oxygen via high flow nasal cannula. States he feels much better, breathing is improved, pulmonology recommended sniff test to look for right diaphragm paralysis 10/03. Patient seen and examined. Continues to be on 15 L of oxygen. Patient is not lethargic, states gets short of breath on exertion. Denies any nausea or vomiting 10/04/2023 Patient seen and evaluated in follow-up today continues to be dyspneic maintained on high flow oxygen is being transferred to [facility]. Per nursing staff he continues to remove his nasal cannula as well as nonrebreather and respiratory following recommending i continuing this for a few hours. Patient has noted to be COVID-positive. Sodium is slightly low at 132 potassium was 3.3 yesterday and replaced awaiting follow-up labs. Patient with prolonged hospitalization and continued weakness will likely need ECF once stabilized. 10/05/2023 Patient is seen in follow-up this morning continues on Airvo with maximum oxygen at 60/90 maintaining oxygen saturations in the 88 percentile range. Patient reports having worsening shortness of breath although appears somewhat confused at times. Discussed CODE STATUS with the patient and he wishes to remain full code. Patient is agreeable to mechanical ventilation if required. Patient continues to remove his oxygen from his face desats very quickly. Will get a chest x-ray and continue to monitor closely. Pulmonary and infectious disease following and patient is continued on cefepime with concerns of pneumonia. Patient is currently afebrile and denies chest pain or shortness of breath. Patient reports he is eating although not much of an appetite. 10/06/2023 Patient is seen in follow-up today was transferred to the ICU for respiratory decline per nursing staff as patient continued to have respiratory distress and low oxygen saturations becoming more hypoxic and confused. Patient is continued on Airvo max 60/90 with continued intermittent nonrebreather use. Patient is continued on steroids along with inhalers and pulmonary is following closely. Patient is afebrile with no reported chest pain or shortness of breath. Patient reports to tolerating diet although appears not to be eating very much at all. 10/07/2023 Patient is seen and evaluated in follow-up today continues in the ICU on high flow Airvo 60 L / 90% with oxygen saturations in the low 90s. On exam patient was found to have Airvo out of his nostrils and using nonrebreather and oxygen saturation was 93%. Patient is maintained on antibiotics with infectious disease following closely along with pulmonary group segment consultant. CODE STATUS was addressed once again and patient wishes to remain full code. Wean FiO2 as t olerated. Encouraged oral intake. Patient to be evaluated by physical therapy once respiratory status improved and will need rehab. 10/09/2023 Patient lying in bed, mildly tachypneic with no chest pain He remains on Airvo 60 L/min Vital stable Remains on dexamethasone and Pepcid Resume of the care of the patient 10/12/2023 Patient with Covid infection and possible right lower lobe pneumonia finish her antibiotics. He does not need antiviral therapy but there is evidence of oral thrush and discovered covered with Diflucan and received nystatin as well. His leukocytosis stable about 18k, no fever. Patient also with fluid overload and hyponatremia sodium 1:30 status post 1 Samsca today, also patient is on IV Lasix 40 mg twice daily Patient currently is oxygen via nasal cannula saturating 88% which is improved from previous, airvo oxygen was stopped Objective - Vital Signs Vital signs: Vital Signs Temp 98.9 F 10/12/23 08:00 Pulse 108 H 10/12/23 08:00 Resp 18 10/12/23 08:00 BP 127/73 10/12/23 08:00 Pulse Ox 88 L 10/12/23 08:00 FiO2 40 10/11/23 08:00 Intake & Output 10/11/23 10/12/23 10/12/23 18:59 06:59 18:59 Intake Total 360 0 180 Output Total 640 800 Balance -280 -800 180 Weight 146.5 kg Intake: Oral 360 0 180 Output: Urine 640 800 Other: Voiding Method Indwelling Catheter Indwelling Catheter Indwelling Catheter # Bowel Movements 1 - Exam GENERAL: The patient is alert and oriented x3, not in any acute distress. Well developed, well nourished. HEENT: Pupils are round and equally reacting to light. EOMI. No scleral icterus. No conjunctival pallor. Normocephalic, atraumatic. No pharyngeal erythema. No thyromegaly. CARDIOVASCULAR: S1 and S2 present. No murmurs, rubs, or gallops. PULMONARY: Chest is clear to auscultation, no wheezing , no crackles. ABDOMEN: Soft, nontender, nondistended, normoactive bowel sounds. No palpable organomegaly. MUSCULOSKELETAL: No joint swelling or deformity. EXTREMITIES: No cyanosis, clubbing, or pedal edema. NEUROLOGICAL: Gross neurological examination did not reveal any focal deficits. SKIN: No rashes. no petechiae. - Labs CBC & Chem 7: 10/12/23 07:43 10/12/23 07:43 Labs: Abnormal Lab Results - Last 24 Hours (Table) 10/11/23 10/11/23 10/12/23 Range/Units 16:34 20:34 06:15 WBC (3.8-10.6) k/uL RBC (4.30-5.90) m/uL Hgb (13.0-17.5) gm/dL Hct (39.0-53.0) % Sodium (137-145) mmol/L Chloride (98-107) mmol/L BUN (9-20) mg/dL Glucose (74-99) mg/dL POC Glucose (mg/dL) 136 H 143 H 132 H (70-110) mg/dL C-Reactive Protein (<1.0) mg/dL Procalcitonin (0.02-0.09) ng/mL 10/12/23 10/12/23 10/12/23 Range/Units 07:43 07:43 07:43 WBC 18.4 H (3.8-10.6) k/uL RBC 4.28 L (4.30-5.90) m/uL Hgb 12.1 L (13.0-17.5) gm/dL Hct 38.6 L (39.0-53.0) % Sodium 130 L (137-145) mmol/L Chloride 91 L (98-107) mmol/L BUN 36 H (9-20) mg/dL Glucose 159 H (74-99) mg/dL POC Glucose (mg/dL) (70-110) mg/dL C-Reactive Protein 19.3 H (<1.0) mg/dL Procalcitonin 0.18 H (0.02-0.09) ng/mL 10/12/23 Range/Units 11:46 WBC (3.8-10.6) k/uL RBC (4.30-5.90) m/uL Hgb (13.0-17.5) gm/dL Hct (39.0-53.0) % Sodium (137-145) mmol/L Chloride (98-107) mmol/L BUN (9-20) mg/dL Glucose (74-99) mg/dL POC Glucose (mg/dL) 155 H (70-110) mg/dL C-Reactive Protein (<1.0) mg/dL Procalcitonin (0.02-0.09) ng/mL Assessment and Plan Assessment: Hyponatremia secondary to poor oral intake, COVID-19 Acute hypoxic respiratory failure secondary to COVID-19, now requiring oxygen via nasal cannula. Improved Altered mental status, with toxic metabolic encephalopathy likely secondary to hypoxia as patient continues to remove oxygen mask from his face Generalized weakness Rhabdomyolysis. Improved Fall Urinary retention requiring indwelling Rosales catheter Hypothyroidism Hypertension Obesity with a BMI of 35.0 Plan: Patient is continued on oxygen 5 L/m Continue with IV Lasix 40 mg twice daily Status post Samsca 1 and monitor sodium level His sugar still elevated while he is on Levemir 48 units daily before going to add NovoLog 5 units with meals Continue with Diflucan Summer consult is on the case including ID team, pulmonary and nephrology Labs and medication were reviewed.. Continue same treatment. Continue with symptomatic treatment. Resume home medication. Monitor labs and vitals. DVT and GI prophylaxis. Further recommendations as per clinical course of the patient DVT prophylaxis: Subcutaneous Lovenox GI Prophylaxis: Pepcid PT/OT: heather prognosis is guarded
[2023-10-12] MEDS: TOLVAPTAN 15 MG TABLET PO ONE (12:38)
[2023-10-12] MEDS: FLUCONAZOLE 100 MG TAB PO SCH (12:38)
[2023-10-12 16:43] LABS: Glucose,Whole Blood 130 mg/dL (70-110)
--- NOTE | 2023-10-12 17:55 | P.PN ---
Subjective Progress Note Date: 10/12/23 This is a 77-year-old male patient with a history of hypertension, seizure disorder, thyroid disorder, former smoker. On September 27, 2023 the patient had gotten up to go the bathroom and slumped onto the ground. He had been reportedly laying on the ground for several hours by family were attempting to get in helping him get up but he was unable to support himself. He also had trouble with urinary incontinence. EMS was called and he was brought here for evaluation. CT scan of the brain revealed no acute intracranial hemorrhage, midline shift or mass effect. EKG revealed sinus rhythm with no significant ST or T wave abnormalities. White count 14.9. Hemoglobin 12.9. Platelets 146. Sodium 126. Potassium 3.9. Bicarb 26. BUN 15. Creatinine 0.68. Glucose 152. AST 148. ALT 43. Creatinine kinase 2283. He did test positive for COVID-19 infection. His initial sodium level was 118. BUN of 24 and a creatinine of 1.26. He had been seen by nephrology, urology and infectious disease. A chest x-ray was done today September 30, 2023 that revealed an elevated right hemidiaphragm and we are consulted for the same. He was sent for a sniff test however the patient was unable to perform the appropriate maneuvers due to overall condition. He is seen on consultation on the selective care unit. He is currently resting in bed. Difficult to arouse but arousable. He is on a nonrebreather mask with O2 saturation of 90%. Currently afebrile. Hemodynamically stable. He has been initiated on Decadron. Antibiotics in the form of cefepime. Saline at 50 MLS per hour. Patient was evaluated today on 10/01/2023, more awake today, more responsive, seems to be more alert, and remains on a nonrebreather mask which I have recommended to transition to high flow nasal cannula. Patient did transition to 10 L high flow nasal cannula and O2 saturation was ranging between 92 up to 96% definitely better today compared to the last couple of days. Still planning to repeat his sniff test to evaluate for right hemidiaphragm paralysis. Procalcitonin level came back elevated at 0.43, patient remains on antibiotics for presumptive right lower lobe pneumonia. WBC count today 13.9 hemoglobin 13.0.Basic metabolic profile is relatively normal. Reevaluated today on 10/02/2023, patient is on 10 L high flow nasal cannula, doing better, breathing easier, O2 saturation is in the low 90s, patient continues to have diminished breath sounds at the right base, and I believe the patient has right hemidiaphragm paralysis with right lower lobe atelectasis, possible underlying pneumonia, but I feel clinically this is not the picture. At any rate the patient is supposed to have a sniff test tomorrow, may even have to consider a CT of the chest to evaluate the right lower lobe further. Based on the sniff test, further recommendations will follow. In the meantime patient is gradually improving, feeling better, breathing easier and definitely his neurological status is significantly improved now compared to how he was few days ago WBC count is 10.2 hemoglobin is 12.3, sodium is up to 130, potassium 3.1 renal profile is normal procalcitonin level on this patient was 0.43, hence he was empirically placed on antibiotics for presumptive right lower lobe pneumonia Progress note dated October 03, 2023. The patient is seen today in room 362. He continues on a nonrebreather mask. Previously, he was on 15 L high flow oxygen. Because of saturations in the high 80s, the nurse switched him to a nonrebreather mask. Currently his saturations are in the low 90s. The patient continues on Decadron, and cefepime. He is getting saline at 50 cc an hour. His procalcitonin level is 0.43. Laboratory data includes a white count 11.3, hemoglobin 13, hematocrit 39.6, and a platelet count of 196,000. Sodium 132, potassium 3.3, chloride 97, CO2 30, BUN 15, creatinine 0.51. The patient's albumin is 2.8. AST is 101, and ALT is 53. Chest x-ray shows some basilar atelectasis or infiltrate, with an elevated right diaphragm, and possible effusion. Progress note dated October 04, 2023. 77-year-old male, seen today in room 362. The patient was initially on a nonrebreather, but saturations were only in the mid 80s. The patient was converted to Airvo, with settings of 60 L/min, with an FiO2 of 95%. His saturations then increased to 88 to 90%. The patient is not receiving any IV fluids. No new labs today. Labs from October 03 have been reviewed. Microbiologic sampling, is negative or pending. Chest x-ray reveals borderline cardiomegaly, with ongoing asymmetric elevation of the right hemidiaphragm. There is increasing patchy bibasilar atelectasis/infiltrate. Progress note dated October 05, 2023. 77-year-old male seen today in room 362. Currently, the patient is on Airvo, with settings of 60 L/min and an FiO2 of 90%. The patient is also wearing a nonrebreather mask, over the Airvo nasal cannula. The patient continues on Decadron and cefepime. We have asked for chest x-ray tomorrow. Clinically, the patient looks reasonably stable, and does not appear to be short of breath. I have asked the nurse, to call respiratory, to adjust his Airvo nasal cannula, and a nonrebreather mask. No new labs today. Progress note dated October 06, 2023. 77-year-old male, seen today in room 256. The patient's respiratory status declined through the night, and the patient was transferred down to the intensive care unit. The patient had blood gases, showing a pO2 of 126, pCO2 of 21, and a pH of 7.70. This blood gas is consistent with a mixed respiratory and metabolic alkalosis. The patient did test positive initially for coronavirus. He is currently on Airvo, with settings of 60 L/min and an FiO2 of 90%. In addition, he is getting a nonrebreather mask. The patient is not receiving any IV fluids. Saturations are in the low to mid 90s. The patient continues on cefepime. Labs include a white count 15, hemoglobin 13.4, hematocrit 39.6, and a platelet count of 181,000. Sodium 133, potassium 3.2, chlorides 96, CO2 29, BUN 28, creatinine 0.81. Glucose is 110. Calcium is 8.4. Chest x-ray shows some patchy mid and lower lung opacities, either the same from the previous x- ray, or mildly improved. There is also elevation of the right diaphragm. Progress note dated October 07, 2023. 77-year-old male seen today in room 256. The patient is currently on Airvo, at 60 L/min with an FiO2 of 90%. Saturations are between 92 and 93%. Occasionall y, he has a nonrebreather mask, over the Airvo nasal cannula. He is not receiving any IV fluids. He had an uneventful night according to the nurses. His white count is 15.7, hemoglobin 12.4, hematocrit 37.9, and platelet count is normal. Sodium 134, potassium 3.8, chlorides 98, CO2 29, BUN 32, creatinine 0.8. Glucose 141. Calcium 8.4. Chest x-ray is unchanged and shows similar patchy infiltrates, in the mid and lower lung zones, with the right diaphragm elevation. Progress note dated October 08, 2023. 77-year-old male seen today in room 256. The patient is currently on Airvo, at 60 L/min, with an FiO2 of 80%. Yesterday, he was on 90%. He is not receiving any IV fluids. We can discontinue isolation. In addition, he has been on cefepime for some time, so that we will be discontinued as well. Current labs include a white count of 14.3, hemoglobin 11.8, hematocrit 36.6, and a normal platelet count of 153,000. Sodium 131, potassium 4, chloride 96, CO2 31, BUN 37, creatinine 0.71. Glucose is 137. Calcium 8.5. Magnesium 2.0. Yesterday's chest x-ray was unchanged. Progress note dated October 09, 2023. 77-year-old male, again seen in room 256. The patient was admitted with a diagnosis of coronavirus infection, and probable coronavirus associated pneumonia. The patient is currently on Airvo, with settings of 60 L/min and an FiO2 of 85%. The patient is not receiving any IV fluids. His chest x-ray today, looks a bit better. Clinically, he is about the same. Current labs include a white count of 17.1, hemoglobin 12.7, hematocrit 37.7, and a normal platelet count. Sodium 130, potassium 4.2, chlorides 92, CO2 31, BUN 37, creatinine 0.8. The patient's glucose was 118. Calcium 8.7. On today's evaluation of 10/10/2023, the patient is being seen for a follow-up in the intensive care unit. The patient remains on high flow oxygen and the patient remains on Airvo 45 L with an FiO2 of 60%. Calm and comfortable. The patient has completed course of IV cefepime. The patient also has completed a course of Decadron. Further is being gradually weaned off. No significant cough or sputum production. No chest tightness. No wheezing. He is calm and comfortable. The white cell count of 16.5 with a hemoglobin 12.5 and a platelet count of 196. BUN is at 38 with a creatinine of 0.9 and sodium levels at 130. Hemodynamically stable. No other specific complaints otherwise for now. Chest x-ray shows significant elevation of the right hemidiaphragm along with patchy infiltrative changes consistent with COVID-19 related pneumonia. The patient remains on Lasix 40 mg IV every 12 hours and net fluid balance is -1.3 L over the past 24 hours. Renal function remained stable. On today's evaluation of 10/11/2023, the patient is being seen for a follow-up. The patient is oxygenation has improved significantly and the patient was taken off the Airvo this morning and the patient was transitioned to 5 L of oxygen by nasal cannula. He is using incentive spirometer. He remains on IV Lasix. Fluid balance has been -1.3 L over the past 24 hours. BUN is at 40 with a creatinine of 0.8 and a sodium levels of 130. The white cell count is still elevated at 18.8 with a hemoglobin 15.5. Awake and alert and communicating. Completed Decadron. Completed the course of IV antibiotics with IV cefepime. On today's evaluation of 10/12/2023, I am seeing the patient for a follow-up. Overall condition remained stable as the patient got transferred out of the intensive care unit. The patient is currently on 5 L of O2 nasal cannula. Using the incentive spirometer. No respiratory difficulties. No aspiration. No antibiotics. No steroids. He is weak and he would benefit from. No nausea. No emesis. No chest pain. His CODE STATUS was again addressed by the primary care team and the patient is still in full CODE STATUS. WBC count is at 18.4 wi th a hemoglobin 12.1 and a platelet count of 232. BUN is at 36 with a creatinine of 0.9. Sodium is at 130. Objective - Vital Signs Vital signs: Vital Signs Temp 98.9 F 10/12/23 08:00 Pulse 108 H 10/12/23 08:00 Resp 18 10/12/23 08:00 BP 127/73 10/12/23 08:00 Pulse Ox 88 L 10/12/23 08:00 FiO2 40 10/11/23 08:00 Intake & Output 10/11/23 10/12/23 10/12/23 18:59 06:59 18:59 Intake Total 360 0 180 Output Total 640 800 Balance -280 -800 180 Weight 146.5 kg Intake: Oral 360 0 180 Output: Urine 640 800 Other: Voiding Method Indwelling Catheter Indwelling Catheter Indwelling Catheter # Bowel Movements 1 - Exam No acute distress, awake, currently on Airvo. Patient is currently on 5 L of oxygen nasal cannula HEENT examination is grossly unremarkable. Mucous membranes are moist. No oral lesions. Neck supple. Full range of motion. No adenopathy thyromegaly or neck vein distention. Cardiovascular examination reveals regular rhythm rate. S1-S2 normal. No S3 or S4. No discernible murmur noted. Heart sounds are distant. Lungs reveal electively clear but diminished breath sounds throughout. Minimal rhonchi. No wheezes. Crackles in the lung base bilaterally and the patient has diminished breath sounds right lung base Abdomen soft bowel sounds are heard. No masses or tenderness. Extremities are intact. No cyanosis clubbing or edema. Skin is without rash or lesion. Neurologic examination is brief but nonfocal. - Labs CBC & Chem 7: 10/12/23 07:43 10/12/23 07:43 Labs: Abnormal Lab Results - Last 24 Hours (Table) 10/11/23 10/11/23 10/11/23 Range/Units 11:52 16:34 20:34 WBC (3.8-10.6) k/uL RBC (4.30-5.90) m/uL Hgb (13.0-17.5) gm/dL Hct (39.0-53.0) % Sodium (137-145) mmol/L Chloride (98-107) mmol/L BUN (9-20) mg/dL Glucose (74-99) mg/dL POC Glucose (mg/dL) 130 H 136 H 143 H (70-110) mg/dL 10/12/23 10/12/23 10/12/23 Range/Units 06:15 07:43 07:43 WBC 18.4 H (3.8-10.6) k/uL RBC 4.28 L (4.30-5.90) m/uL Hgb 12.1 L (13.0-17.5) gm/dL Hct 38.6 L (39.0-53.0) % Sodium 130 L (137-145) mmol/L Chloride 91 L (98-107) mmol/L BUN 36 H (9-20) mg/dL Glucose 159 H (74-99) mg/dL POC Glucose (mg/dL) 132 H (70-110) mg/dL Assessment and Plan Plan: Acute hypoxemic respiratory failure secondary to right lower lobe ate lectasis/consolidation, and possible pneumonia. The acute hypoxic respiratory failure is multifactorial. The patient had an acute COVID-19 related pneumonia with patchy bilateral pulmonary infiltrates in addition to that, the patient has chronic right hemidiaphragmatic paralysis and right hemidiaphragmatic elevation. Most recent chest x-ray that was done on 10/10/2023 showed stable patchy pulm i nfiltrates in the left lower lobe and the right lower lobe. The patient remains is improving. Oxygenation is improved and the patient is currently off the Airvo and he was transitioned to 5 L of oxygen by nasal cannula. Oxygenation remained stable and unchanged compared to yesterday. Shortness of breath secondary to above, improving Generalized weakness, likely secondary to coronavirus infection, and hyponatremia. Acute mental status changes, likely secondary to metabolic encephalopathy. Acute coronavirus infection, without evidence of coronavirus associated pneumonia. Right diaphragm elevation, and possible paresis/paralysis. Hyponatremia. Sodium level stable at 130 Acute kidney injury, recovered and renal function has normalized Rhabdomyolysis, stable History of seizure disorder. History of hypothyroidism. History of hypertension. Previous history of tobacco use. Plan Aggressive pulmonary toileting and use of incentive spirometer Wean down FiO2 as tolerated currently on 5 L of O2 nasal cannula. Airvo has been discontinued Echo of the heart was also completed and the patient has a normal LV function without any valvular abnormalities Continue Lovenox for DVT prophylaxis Continue diuresis The patient has generalized weakness and the patient would benefit from rehabilitation. Recommend ECF transfer at time of discharge. Medication will be kept unchanged for now Will continue to follow
[2023-10-12 20:34] LABS: Glucose,Whole Blood 140 mg/dL (70-110)
--- NOTE | 2023-10-12 20:34 | XR ---
EXAMINATION TYPE: XR chest 1V portable DATE OF EXAM: 10/12/2023 COMPARISON: 10/11/2023 INDICATION: Bilateral infiltrates TECHNIQUE: Single frontal view of the chest is obtained. FINDINGS: The heart size is normal. The pulmonary vasculature is normal. There is elevation of the right diaphragm. Subpulmonic effusion is not excluded. Infiltrates at the b ase of the right upper lobe. Left lower lobe infiltrate is improving. IMPRESSION: 1. Bibasilar infiltrates have some improvement over the interval. There is elevation of the right jeny phragm and/or subpulmonic effusion.
[2023-10-13 06:27] LABS: Glucose,Whole Blood 144 mg/dL (70-110)
[2023-10-13 07:46] LABS: African American GFR (CKD) >90 (>60 ml/min/1.73 sqM); Anion Gap 7 mmol/L; Blood Urea Nitrogen 27 mg/dL (9-20); Calcium 8.3 mg/dL (8.4-10.2); Carbon Dioxide 33 mmol/L (22-30); Chloride 90 mmol/L (98-107); Glucose 129 mg/dL (74-99); Non-African American GFR(CKD) 84 (>60 ml/min/1.73 sqM); Potassium 3.2 mmol/L (3.5-5.1); Sodium 130 mmol/L (137-145)
--- NOTE | 2023-10-13 10:32 | P.PN ---
Subjective Patient is seen in follow-up for hyponatremia. Sodium level stable at 130 this morning. Has Rosales catheter. Nonoliguric. On IV Lasix. GFR at baseline. Vital signs are stable. General: No acute distress. HEENT: Head exam is unremarkable. On 5 L nasal cannula. LUNGS: Scattered rhonchi. HEART: Rate and Rhythm are regular. ABDOMEN: Nontender. EXTREMITITES: Trace edema. Objective - Vital Signs Vital signs: Vital Signs Temp 98.1 F 10/13/23 08:30 Pulse 100 10/13/23 08:30 Resp 18 10/13/23 08:30 BP 119/61 10/13/23 08:30 Pulse Ox 91 L 10/13/23 08:30 FiO2 40 10/11/23 08:00 Intake & Output 10/12/23 10/13/23 10/13/23 18:59 06:59 18:59 Intake Total 900 Output Total 825 400 Balance 900 -825 -400 Intake: Oral 900 Output: Urine 825 400 Other: Voiding Method Indwelling Catheter Indwelling Catheter Indwelling Catheter - Labs CBC & Chem 7: 10/12/23 07:43 10/13/23 06:22 Labs: Abnormal Lab Results - Last 24 Hours (Table) 10/12/23 10/12/23 10/12/23 Range/Units 07:43 07:43 11:46 Sodium (137-145) mmol/L Potassium (3.5-5.1) mmol/L Chloride (98-107) mmol/L Carbon Dioxide (22-30) mmol/L BUN (9-20) mg/dL Glucose (74-99) mg/dL POC Glucose (mg/dL) 155 H (70-110) mg/dL Calcium (8.4-10.2) mg/dL C-Reactive Protein 19.3 H (<1.0) mg/dL Procalcitonin 0.18 H (0.02-0.09) ng/mL 10/12/23 10/12/23 10/13/23 Range/Units 16:39 20:23 06:21 Sodium (137-145) mmol/L Potassium (3.5-5.1) mmol/L Chloride (98-107) mmol/L Carbon Dioxide (22-30) mmol/L BUN (9-20) mg/dL Glucose (74-99) mg/dL POC Glucose (mg/dL) 130 H 140 H 144 H (70-110) mg/dL Calcium (8.4-10.2) mg/dL C-Reactive Protein (<1.0) mg/dL Procalcitonin (0.02-0.09) ng/mL 10/13/23 Range/Units 06:22 Sodium 130 L (137-145) mmol/L Potassium 3.2 L (3.5-5.1) mmol/L Chloride 90 L (98-107) mmol/L Carbon Dioxide 33 H (22-30) mmol/L BUN 27 H (9-20) mg/dL Glucose 129 H (74-99) mg/dL POC Glucose (mg/dL) (70-110) mg/dL Calcium 8.3 L (8.4-10.2) mg/dL C-Reactive Protein (<1.0) mg/dL Procalcitonin (0.02-0.09) ng/mL Assessment and Plan Plan: Assessment: 1. Hyponatremia. Due to urinary retention and hypervolemia. Sodium level stable at 130. TSH normal. Urine osmolality 543. Urine sodium less than 20. 2. Acute kidney injury secondary to urinary retention. Creatinine 1.26 on admission - 0.87 today. No proteinuria on UA. No hydronephrosis noted on kidney ultrasound. 3. Urinary retention status post Rosales catheter placement. On Flomax. Urology following. 4. Benign hypertension. Controlled. 5. Hypokalemia from diuresis. 6. Rhabdomyolysis secondary to fall. CK level improved. Plan: Maintain IV Lasix. Transition to oral diuretics tomorrow. Maintain 1200 cc fluid restriction. Encouraged oral intake. Preserved ejection fraction noted on echocardiogram. Avoid nephrotoxins. Continue to monitor renal function and urine output. Replace potassium.
--- NOTE | 2023-10-13 10:39 | P.PN ---
Subjective patient is a 77-year-old gentleman past medical history significant for hypothyroidism, hypertension who presented to the ER for generalized weakness and fall. Patient was brought in by family members, apparently patient was trying to use the restroom when he lost all his strength and slumped to the ground. There was no complaint of any loss of consciousness. No complaint of weakness of any extremity. Family did not notice any slurred speech or facial droop. There was no complaint of fever or chills. No complaint of nausea, vomiting, abdominal pain. Patient's family tried to help him to get up but they were unable to lift him. They called EMS and they brought him to ER. Initial lab work done in the ER showed WBC 10.5, hemoglobin 15.2, platelet count 165, sodium 118, potassium 4.1, BUN 24, creatinine 1.26, plasma lactate 4.1, tro ponin 0.012 UA negative for any infection EKG done in the ER showed heart rate of 75, no ST segment elevation or depression seen, no T-wave inversions seen. Chest x-ray done in the ER no acute cardiopulmonary process CT head done showed no acute intracranial process Patient admitted to internal medicine service 09/29. Patient seen and examined. COVID-19 came back positive. Currently on 4 L of oxygen. Sodium this morning is 121. Still complain lethargy and weakness. Patient also diagnosed with COVID 09/30. Patient seen and examined. Blood work done this morning showed WBC 14.9, hemoglobin 12.9, platelet count 146, sodium 126, potassium 3.9, BUN 15, creatinine 0.68. States he feels much better. Shortness of breath is improved. 10/01. Patient seen and examined. Still on 15 L of oxygen via nonrebreather. States he feels better. Sodium level improved to 132, potassium 3.3, BUN 18, creatinine 0.65. Lethargy has improved. 10/02. Patient seen and examined. Currently on 8 L of oxygen via high flow nasal cannula. States he feels much better, breathing is improved, pulmonology recommended sniff test to look for right diaphragm paralysis 10/03. Patient seen and examined. Continues to be on 15 L of oxygen. Patient is not lethargic, states gets short of breath on exertion. Denies any nausea or vomiting 10/04/2023 Patient seen and evaluated in follow-up today continues to be dyspneic maintained on high flow oxygen is being transferred to [facility]. Per nursing staff he continues to remove his nasal cannula as well as nonrebreather and respiratory following recommending i continuing this for a few hours. Patient has noted to be COVID-positive. Sodium is slightly low at 132 potassium was 3.3 yesterday and replaced awaiting follow-up labs. Patient with prolonged hospitalization and continued weakness will likely need ECF once stabilized. 10/05/2023 Patient is seen in follow-up this morning continues on Airvo with maximum oxygen at 60/90 maintaining oxygen saturations in the 88 percentile range. Patient reports having worsening shortness of breath although appears somewhat confused at times. Discussed CODE STATUS with the patient and he wishes to remain full code. Patient is agreeable to mechanical ventilation if required. Patient continues to remove his oxygen from his face desats very quickly. Will get a chest x-ray and continue to monitor closely. Pulmonary and infectious disease following and patient is continued on cefepime with concerns of pneumonia. Patient is currently afebrile and denies chest pain or shortness of breath. Patient reports he is eating although not much of an appetite. 10/06/2023 Patient is seen in follow-up today was transferred to the ICU for respiratory decline per nursing staff as patient continued to have respiratory distress and low oxygen saturations becoming more hypoxic and confused. Patient is continued on Airvo max 60/90 with continued intermittent nonrebreather use. Patient is continued on steroids along with inhalers and pulmonary is following closely. Patient is afebrile with no reported chest pain or shortness of breath. Patient reports to tolerating diet although appears not to be eating very much at all. 10/07/2023 Patient is seen and evaluated in follow-up today continues in the ICU on high flow Airvo 60 L / 90% with oxygen saturations in the low 90s. On exam patient was found to have Airvo out of his nostrils and using nonrebreather and oxygen saturation was 93%. Patient is maintained on antibiotics with infectious disease following closely along with pulmonary cyber crime investigator. CODE STATUS was addressed once again and patient wishes to remain full code. Wean FiO2 as t olerated. Encouraged oral intake. Patient to be evaluated by physical therapy once respiratory status improved and will need rehab. 10/09/2023 Patient lying in bed, mildly tachypneic with no chest pain He remains on Airvo 60 L/min Vital stable Remains on dexamethasone and Pepcid Resume of the care of the patient 10/12/2023 Patient with Covid infection and possible right lower lobe pneumonia finish her antibiotics. He does not need antiviral therapy but there is evidence of oral thrush and discovered covered with Diflucan and received nystatin as well. His leukocytosis stable about 18k, no fever. Patient also with fluid overload and hyponatremia sodium 1:30 status post 1 Samsca today, also patient is on IV Lasix 40 mg twice daily Patient currently is oxygen via nasal cannula saturating 88% which is improved from previous, airvo oxygen was stopped 10/13/2023 Patient is clinically stable. He is awake and alert not in distress his breathing is improving and currently he is on 4-5 L/m of oxygen which is a stable Has good air entry bilaterally. I discussed the case with pulmonary team and patient might be considered for discharge from their perspective is also on Diflucan and WBCs 18,000 Status post Samsca and sodium stable at 1:30, low potassium replaced I discussed the case with director social service and patient does not need a bone isolation for his Covid. However he is prior authorization Possible discharge in 24-48 hours Objective - Vital Signs Vital signs: Vital Signs Temp 98.1 F 10/13/23 08:30 Pulse 100 10/13/23 08:30 Resp 18 10/13/23 08:30 BP 119/61 10/13/23 08:30 Pulse Ox 91 L 10/13/23 08:30 FiO2 40 10/11/23 08:00 Intake & Output 10/12/23 10/13/23 10/13/23 18:59 06:59 18:59 Intake Total 900 Output Total 825 400 Balance 900 -825 -400 Intake: Oral 900 Output: Urine 825 400 Other: Voiding Method Indwelling Catheter Indwelling Catheter Indwelling Catheter - Exam GENERAL: The patient is alert and oriented x3, not in any acute distress. Well developed, well nourished. HEENT: Pupils are round and equally reacting to light. EOMI. No scleral icterus. No conjunctival pallor. Normocephalic, atraumatic. No pharyngeal erythema. No thyromegaly. CARDIOVASCULAR: S1 and S2 present. No murmurs, rubs, or gallops. PULMONARY: Chest is clear to auscultation, no wheezing , no crackles. ABDOMEN: Soft, nontender, nondistended, normoactive bowel sounds. No palpable organomegaly. MUSCULOSKELETAL: No joint swelling or deformity. EXTREMITIES: No cyanosis, clubbing, or pedal edema. NEUROLOGICAL: Gross neurological examination did not reveal any focal deficits. SKIN: No rashes. no petechiae. - Labs CBC & Chem 7: 10/12/23 07:43 10/13/23 06:22 Labs: Abnormal Lab Results - Last 24 Hours (Table) 10/12/23 10/12/23 10/12/23 Range/Units 07:43 07:43 11:46 Sodium (137-145) mmol/L Potassium (3.5-5.1) mmol/L Chloride (98-107) mmol/L Carbon Dioxide (22-30) mmol/L BUN (9-20) mg/dL Glucose (74-99) mg/dL POC Glucose (mg/dL) 155 H (70-110) mg/dL Calcium (8.4-10.2) mg/dL C-Reactive Protein 19.3 H (<1.0) mg/dL Procalcitonin 0.18 H (0.02-0.09) ng/mL 10/12/23 10/12/23 10/13/23 Range/Units 16:39 20:23 06:21 Sodium (137-145) mmol/L Potassium (3.5-5.1) mmol/L Chloride (98-107) mmol/L Carbon Dioxide (22-30) mmol/L BUN (9-20) mg/dL Glucose (74-99) mg/dL POC Glucose (mg/dL) 130 H 140 H 144 H (70-110) mg/dL Calcium (8.4-10.2) mg/dL C-Reactive Protein (<1.0) mg/dL Procalcitonin (0.02-0.09) ng/mL 10/13/23 Range/Units 06:22 Sodium 130 L (137-145) mmol/L Potassium 3.2 L (3.5-5.1) mmol/L Chloride 90 L (98-107) mmol/L Carbon Dioxide 33 H (22-30) mmol/L BUN 27 H (9-20) mg/dL Glucose 129 H (74-99) mg/dL POC Glucose (mg/dL) (70-110) mg/dL Calcium 8.3 L (8.4-10.2) mg/dL C-Reactive Protein (<1.0) mg/dL Procalcitonin (0.02-0.09) ng/mL Assessment and Plan Assessment: Hyponatremia secondary to poor oral intake, COVID-19 Acute hypoxic respiratory failure secondary to COVID-19, now requiring oxygen via nasal cannula. Improved Altered mental status, with toxic metabolic encephalopathy likely secondary to hypoxia as patient continues to remove oxygen mask from his face Generalized weakness Rhabdomyolysis. Improved Fall Urinary retention requiring indwelling Rosales catheter Hypothyroidism Hypertension Obesity with a BMI of 35.0 Plan: Patient is continued on oxygen 5 L/m Continue with IV Lasix 40 mg twice daily Status post Samsca 1 and monitor sodium level His sugar still elevated while he is on Levemir 48 units daily before going to add NovoLog 5 units with meals Continue with Diflucan Summer consult is on the case including ID team, pulmonary and nephrology Labs and medication were reviewed.. Continue same treatment. Continue with symptomatic treatment. Resume home medication. Monitor labs and vitals. DVT and GI prophylaxis. Further recommendations as per clinical course of the patient DVT prophylaxis: Subcutaneous Lovenox GI Prophylaxis: Pepcid PT/OT: heather prognosis is guarded
--- NOTE | 2023-10-13 11:34 | P.PN ---
Subjective Progress Note Date: 10/13/23 Principal diagnosis: Reason for follow-up is COVID-19 and pneumonia Patient is a 77-year-old male with a past medical history significant for hypertension seizure disorder hypothyroidism patient has been brought into the hospital for evaluation of generalized weakness patient was noticed to be on the bathroom floor after apparently patient fell down, patient did tested positive for COVID-19, initial chest x-ray reported negative. On today's evaluation that is 10/13/2023, Patient is afebrile patient is currently on 5 L nasal cannula oxygen and denies having any shortness of breath, the patient denies any chest pain or worsening cough, the patient denies any nausea vomiting did not have any abdominal pain and no diarrhea. Patient creatinine 0.87 CBC pending from this morning chest x-ray yesterday bibasilar infiltrate some improvement over the interval Objective - Vital Signs Vital signs: Vital Signs Temp 98.1 F 10/13/23 08:30 Pulse 100 10/13/23 08:30 Resp 18 10/13/23 08:30 BP 119/61 10/13/23 08:30 Pulse Ox 91 L 10/13/23 08:30 FiO2 40 10/11/23 08:00 Intake & Output 10/12/23 10/13/23 10/13/23 18:59 06:59 18:59 Intake Total 900 Output Total 825 400 Balance 900 -825 -400 Intake: Oral 900 Output: Urine 825 400 Other: Voiding Method Indwelling Catheter Indwelling Catheter Indwelling Catheter - Exam GENERAL DESCRIPTION: An elderly male lying in bed in no distress RESPIRATORY SYSTEM: Unlabored breathing , decreased breath sounds at bases HEART: S1 S2 regular rate and rhythm , ABDOMEN: Soft , no tenderness EXTREMITIES: No edema feet - Labs CBC & Chem 7: 10/12/23 07:43 10/13/23 06:22 Labs: Abnormal Lab Results - Last 24 Hours (Table) 10/12/23 10/12/23 10/12/23 Range/Units 07:43 11:46 16:39 Sodium (137-145) mmol/L Potassium (3.5-5.1) mmol/L Chloride (98-107) mmol/L Carbon Dioxide (22-30) mmol/L BUN (9-20) mg/dL Glucose (74-99) mg/dL POC Glucose (mg/dL) 155 H 130 H (70-110) mg/dL Calcium (8.4-10.2) mg/dL C-Reactive Protein 19.3 H (<1.0) mg/dL 10/12/23 10/13/23 10/13/23 Range/Units 20:23 06:21 06:22 Sodium 130 L (137-145) mmol/L Potassium 3.2 L (3.5-5.1) mmol/L Chloride 90 L (98-107) mmol/L Carbon Dioxide 33 H (22-30) mmol/L BUN 27 H (9-20) mg/dL Glucose 129 H (74-99) mg/dL POC Glucose (mg/dL) 140 H 144 H (70-110) mg/dL Calcium 8.3 L (8.4-10.2) mg/dL C-Reactive Protein (<1.0) mg/dL Assessment and Plan (1) COVID-19 Current Visit: Yes Status: Acute Code(s): U07.1 - COVID-19 SNOMED Code(s): 701881154 (2) Sepsis Current Visit: Yes Status: Acute Code(s): A41.9 - SEPSIS, UNSPECIFIED ORGANISM SNOMED Code(s): 92223302 (3) Pneumonia Current Visit: Yes Status: Acute Code(s): J18.9 - PNEUMONIA, UNSPECIFIED ORGANISM SNOMED Code(s): 044249085 (4) Penicillin allergy Current Visit: Yes Status: Acute Code(s): Z88.0 - ALLERGY STATUS TO PENICILLIN SNOMED Code(s): 49038024 (5) Thrush Current Visit: Yes Status: Acute Code(s): B37.0 - CANDIDAL STOMATITIS SNOMED Code(s): 52735537 (6) Thrush, oral Current Visit: Yes Status: Acute Code(s): B37.0 - CANDIDAL STOMATITIS SNOMED Code(s): 55363817 Plan: 1patient presented to hospital generalized weakness and did have a fall source likely multifactorial. He tested positive for COVID-19 however initial chest x- ray was negative for acute infiltrate however subsequent x-ray shows worsening bibasilar infiltrate concerning for possible secondary bacterial pneumonia for the patient to complete his course of antibiotic therapy 2-patient leukocytosis which is multifactorial possible steroid related also have a component of thrush patient to continue with the nystatin swish and swallow along with Diflucan we will wait for the CBC from this morning and monitor clinical course closely Dictation was produced using [employer] dictation software. please excuse any grammatical, word or spelling errors. Time with Patient: Less than 30
[2023-10-13 11:57] LABS: Glucose,Whole Blood 126 mg/dL (70-110)
[2023-10-13] MEDS: POTASSIUM CHLORIDE ER 20 MEQ TAB.ER PO SCH (12:22)
--- NOTE | 2023-10-13 15:28 | P.PN ---
Subjective Progress Note Date: 10/13/23 This is a 77-year-old male patient with a history of hypertension, seizure disorder, thyroid disorder, former smoker. On September 27, 2023 the patient had gotten up to go the bathroom and slumped onto the ground. He had been reportedly laying on the ground for several hours by family were attempting to get in helping him get up but he was unable to support himself. He also had trouble with urinary incontinence. EMS was called and he was brought here for evaluation. CT scan of the brain revealed no acute intracranial hemorrhage, midline shift or mass effect. EKG revealed sinus rhythm with no significant ST or T wave abnormalities. White count 14.9. Hemoglobin 12.9. Platelets 146. Sodium 126. Potassium 3.9. Bicarb 26. BUN 15. Creatinine 0.68. Glucose 152. AST 148. ALT 43. Creatinine kinase 2283. He did test positive for COVID-19 infection. His initial sodium level was 118. BUN of 24 and a creatinine of 1.26. He had been seen by nephrology, urology and infectious disease. A chest x-ray was done today September 30, 2023 that revealed an elevated right hemidiaphragm and we are consulted for the same. He was sent for a sniff test however the patient was unable to perform the appropriate maneuvers due to overall condition. He is seen on consultation on the selective care unit. He is currently resting in bed. Difficult to arouse but arousable. He is on a nonrebreather mask with O2 saturation of 90%. Currently afebrile. Hemodynamically stable. He has been initiated on Decadron. Antibiotics in the form of cefepime. Saline at 50 MLS per hour. Patient was evaluated today on 10/01/2023, more awake today, more responsive, seems to be more alert, and remains on a nonrebreather mask which I have recommended to transition to high flow nasal cannula. Patient did transition to 10 L high flow nasal cannula and O2 saturation was ranging between 92 up to 96% definitely better today compared to the last couple of days. Still planning to repeat his sniff test to evaluate for right hemidiaphragm paralysis. Procalcitonin level came back elevated at 0.43, patient remains on antibiotics for presumptive right lower lobe pneumonia. WBC count today 13.9 hemoglobin 13.0.Basic metabolic profile is relatively normal. Reevaluated today on 10/02/2023, patient is on 10 L high flow nasal cannula, doing better, breathing easier, O2 saturation is in the low 90s, patient continues to have diminished breath sounds at the right base, and I believe the patient has right hemidiaphragm paralysis with right lower lobe atelectasis, possible underlying pneumonia, but I feel clinically this is not the picture. At any rate the patient is supposed to have a sniff test tomorrow, may even have to consider a CT of the chest to evaluate the right lower lobe further. Based on the sniff test, further recommendations will follow. In the meantime patient is gradually improving, feeling better, breathing easier and definitely his neurological status is significantly improved now compared to how he was few days ago WBC count is 10.2 hemoglobin is 12.3, sodium is up to 130, potassium 3.1 renal profile is normal procalcitonin level on this patient was 0.43, hence he was empirically placed on antibiotics for presumptive right lower lobe pneumonia Progress note dated October 03, 2023. The patient is seen today in room 362. He continues on a nonrebreather mask. Previously, he was on 15 L high flow oxygen. Because of saturations in the high 80s, the nurse switched him to a nonrebreather mask. Currently his saturations are in the low 90s. The patient continues on Decadron, and cefepime. He is getting saline at 50 cc an hour. His procalcitonin level is 0.43. Laboratory data includes a white count 11.3, hemoglobin 13, hematocrit 39.6, and a platelet count of 196,000. Sodium 132, potassium 3.3, chloride 97, CO2 30, BUN 15, creatinine 0.51. The patient's albumin is 2.8. AST is 101, and ALT is 53. Chest x-ray shows some basilar atelectasis or infiltrate, with an elevated right diaphragm, and possible effusion. Progress note dated October 04, 2023. 77-year-old male, seen today in room 362. The patient was initially on a nonrebreather, but saturations were only in the mid 80s. The patient was converted to Airvo, with settings of 60 L/min, with an FiO2 of 95%. His saturations then increased to 88 to 90%. The patient is not receiving any IV fluids. No new labs today. Labs from October 03 have been reviewed. Microbiologic sampling, is negative or pending. Chest x-ray reveals borderline cardiomegaly, with ongoing asymmetric elevation of the right hemidiaphragm. There is increasing patchy bibasilar atelectasis/infiltrate. Progress note dated October 05, 2023. 77-year-old male seen today in room 362. Currently, the patient is on Airvo, with settings of 60 L/min and an FiO2 of 90%. The patient is also wearing a nonrebreather mask, over the Airvo nasal cannula. The patient continues on Decadron and cefepime. We have asked for chest x-ray tomorrow. Clinically, the patient looks reasonably stable, and does not appear to be short of breath. I have asked the nurse, to call respiratory, to adjust his Airvo nasal cannula, and a nonrebreather mask. No new labs today. Progress note dated October 06, 2023. 77-year-old male, seen today in room 256. The patient's respiratory status declined through the night, and the patient was transferred down to the intensive care unit. The patient had blood gases, showing a pO2 of 126, pCO2 of 21, and a pH of 7.70. This blood gas is consistent with a mixed respiratory and metabolic alkalosis. The patient did test positive initially for coronavirus. He is currently on Airvo, with settings of 60 L/min and an FiO2 of 90%. In addition, he is getting a nonrebreather mask. The patient is not receiving any IV fluids. Saturations are in the low to mid 90s. The patient continues on cefepime. Labs include a white count 15, hemoglobin 13.4, hematocrit 39.6, and a platelet count of 181,000. Sodium 133, potassium 3.2, chlorides 96, CO2 29, BUN 28, creatinine 0.81. Glucose is 110. Calcium is 8.4. Chest x-ray shows some patchy mid and lower lung opacities, either the same from the previous x- ray, or mildly improved. There is also elevation of the right diaphragm. Progress note dated October 07, 2023. 77-year-old male seen today in room 256. The patient is currently on Airvo, at 60 L/min with an FiO2 of 90%. Saturations are between 92 and 93%. Occasionall y, he has a nonrebreather mask, over the Airvo nasal cannula. He is not receiving any IV fluids. He had an uneventful night according to the nurses. His white count is 15.7, hemoglobin 12.4, hematocrit 37.9, and platelet count is normal. Sodium 134, potassium 3.8, chlorides 98, CO2 29, BUN 32, creatinine 0.8. Glucose 141. Calcium 8.4. Chest x-ray is unchanged and shows similar patchy infiltrates, in the mid and lower lung zones, with the right diaphragm elevation. Progress note dated October 08, 2023. 77-year-old male seen today in room 256. The patient is currently on Airvo, at 60 L/min, with an FiO2 of 80%. Yesterday, he was on 90%. He is not receiving any IV fluids. We can discontinue isolation. In addition, he has been on cefepime for some time, so that we will be discontinued as well. Current labs include a white count of 14.3, hemoglobin 11.8, hematocrit 36.6, and a normal platelet count of 153,000. Sodium 131, potassium 4, chloride 96, CO2 31, BUN 37, creatinine 0.71. Glucose is 137. Calcium 8.5. Magnesium 2.0. Yesterday's chest x-ray was unchanged. Progress note dated October 09, 2023. 77-year-old male, again seen in room 256. The patient was admitted with a diagnosis of coronavirus infection, and probable coronavirus associated pneumonia. The patient is currently on Airvo, with settings of 60 L/min and an FiO2 of 85%. The patient is not receiving any IV fluids. His chest x-ray today, looks a bit better. Clinically, he is about the same. Current labs include a white count of 17.1, hemoglobin 12.7, hematocrit 37.7, and a normal platelet count. Sodium 130, potassium 4.2, chlorides 92, CO2 31, BUN 37, creatinine 0.8. The patient's glucose was 118. Calcium 8.7. On today's evaluation of 10/10/2023, the patient is being seen for a follow-up in the intensive care unit. The patient remains on high flow oxygen and the patient remains on Airvo 45 L with an FiO2 of 60%. Calm and comfortable. The patient has completed course of IV cefepime. The patient also has completed a course of Decadron. Further is being gradually weaned off. No significant cough or sputum production. No chest tightness. No wheezing. He is calm and comfortable. The white cell count of 16.5 with a hemoglobin 12.5 and a platelet count of 196. BUN is at 38 with a creatinine of 0.9 and sodium levels at 130. Hemodynamically stable. No other specific complaints otherwise for now. Chest x-ray shows significant elevation of the right hemidiaphragm along with patchy infiltrative changes consistent with COVID-19 related pneumonia. The patient remains on Lasix 40 mg IV every 12 hours and net fluid balance is -1.3 L over the past 24 hours. Renal function remained stable. On today's evaluation of 10/11/2023, the patient is being seen for a follow-up. The patient is oxygenation has improved significantly and the patient was taken off the Airvo this morning and the patient was transitioned to 5 L of oxygen by nasal cannula. He is using incentive spirometer. He remains on IV Lasix. Fluid balance has been -1.3 L over the past 24 hours. BUN is at 40 with a creatinine of 0.8 and a sodium levels of 130. The white cell count is still elevated at 18.8 with a hemoglobin 15.5. Awake and alert and communicating. Completed Decadron. Completed the course of IV antibiotics with IV cefepime. On today's evaluation of 10/12/2023, I am seeing the patient for a follow-up. Overall condition remained stable as the patient got transferred out of the intensive care unit. The patient is currently on 5 L of O2 nasal cannula. Using the incentive spirometer. No respiratory difficulties. No aspiration. No antibiotics. No steroids. He is weak and he would benefit from. No nausea. No emesis. No chest pain. His CODE STATUS was again addressed by the primary care team and the patient is still in full CODE STATUS. WBC count is at 18.4 wi th a hemoglobin 12.1 and a platelet count of 232. BUN is at 36 with a creatinine of 0.9. Sodium is at 130. On 10/13/2023, the patient is being seen for a follow-up. The patient is stable on 5 L of oxygen by nasal cannula. No new complaints. No interval worsening shortness of breath. No significant cough or sputum production. No aspiration. Remains weak. Would benefit from rehabilitation and we are contemplating to discharge patient to an ECF facility. Blood work from today shows a sodium level of 130, potassium is at 3.2, bicarb is at 33 with a BUN of 27 with a creatinine of 0.8. He is using incentive spirometer. No altered mentation. Quite weak, has difficulty with mobility and the patient has walker at the bedside and physical therapy has been involved in his care. Objective - Vital Signs Vital signs: Vital Signs Temp 98.1 F 10/13/23 08:30 Pulse 100 10/13/23 08:30 Resp 18 10/13/23 08:30 BP 119/61 10/13/23 08:30 Pulse Ox 91 L 10/13/23 08:30 FiO2 40 10/11/23 08:00 Intake & Output 10/12/23 10/13/23 10/13/23 18:59 06:59 18:59 Intake Total 900 Output Total 825 400 Balance 900 -825 -400 Intake: Oral 900 Output: Urine 825 400 Other: Voiding Method Indwelling Catheter Indwelling Catheter Indwelling Catheter - Exam No acute distress, awake, currently on Airvo. Patient is currently on 5 L of oxygen nasal cannula HEENT examination is grossly unremarkable. Mucous membranes are moist. No oral lesions. Neck supple. Full range of motion. No adenopathy thyromegaly or neck vein distention. Cardiovascular examination reveals regular rhythm rate. S1-S2 normal. No S3 or S4. No discernible murmur noted. Heart sounds are distant. Lungs reveal electively clear but diminished breath sounds throughout. Minimal rhonchi. No wheezes. Crackles in the lung base bilaterally and the patient has diminished breath sounds right lung base Abdomen soft bowel sounds are heard. No masses or tenderness. Extremities are intact. No cyanosis clubbing or edema. Skin is without rash or lesion. Neurologic examination is brief but nonfocal. - Labs CBC & Chem 7: 10/12/23 07:43 10/13/23 06:22 Labs: Abnormal Lab Results - Last 24 Hours (Table) 10/12/23 10/12/23 10/12/23 Range/Units 07:43 07:43 11:46 Sodium (137-145) mmol/L Potassium (3.5-5.1) mmol/L Chloride (98-107) mmol/L Carbon Dioxide (22-30) mmol/L BUN (9-20) mg/dL Glucose (74-99) mg/dL POC Glucose (mg/dL) 155 H (70-110) mg/dL Calcium (8.4-10.2) mg/dL C-Reactive Protein 19.3 H (<1.0) mg/dL Procalcitonin 0.18 H (0.02-0.09) ng/mL 10/12/23 10/12/23 10/13/23 Range/Units 16:39 20:23 06:21 Sodium (137-145) mmol/L Potassium (3.5-5.1) mmol/L Chloride (98-107) mmol/L Carbon Dioxide (22-30) mmol/L BUN (9-20) mg/dL Glucose (74-99) mg/dL POC Glucose (mg/dL) 130 H 140 H 144 H (70-110) mg/dL Calcium (8.4-10.2) mg/dL C-Reactive Protein (<1.0) mg/dL Procalcitonin (0.02-0.09) ng/mL 10/13/23 Range/Units 06:22 Sodium 130 L (137-145) mmol/L Potassium 3.2 L (3.5-5.1) mmol/L Chloride 90 L (98-107) mmol/L Carbon Dioxide 33 H (22-30) mmol/L BUN 27 H (9-20) mg/dL Glucose 129 H (74-99) mg/dL POC Glucose (mg/dL) (70-110) mg/dL Calcium 8.3 L (8.4-10.2) mg/dL C-Reactive Protein (<1.0) mg/dL Procalcitonin (0.02-0.09) ng/mL Assessment and Plan Plan: Acute hypoxemic respiratory failure secondary to right lower lobe atelectasis/consolidation, and possible pneumonia. The acute hypoxic res piratory failure is multifactorial. The patient had an acute COVID-19 related pneumonia with patchy bilateral pulmonary infiltrates in addition to that, the patient has chronic right hemidiaphragmatic paralysis and right hemidiaphragmatic elevation. Most recent chest x-ray that was done on 10/10/2023 showed stable patchy pulm infiltrates in the left lower lobe and the right lower lobe. The patient remains is improving. Oxygenation is improved and the patient is currently off the Airvo and he was transitioned to 5 L of oxygen by nasal cannula. Oxygenation remained stable. Shortness of breath secondary to above, improving Generalized weakness, likely secondary to coronavirus infection, and hyponatremia. Acute mental status changes, likely secondary to metabolic encephalopathy. Acute coronavirus infection, without evidence of coronavirus associated pneumonia. Right diaphragm elevation, and possible paresis/paralysis. Hyponatremia. Sodium level stable at 130 Acute kidney injury, recovered and renal function has normalized Rhabdomyolysis, stable History of seizure disorder. History of hypothyroidism. History of hypertension. Previous history of tobacco use. Plan Aggressive pulmonary toileting and use of incentive spirometer Overall weak due to his prolonged hospitalization and the patient will benefit from rehabilitation. Consider ECF for physical therapy and rehab at the time of discharge. Wean down FiO2 as tolerated currently on 5 L of O2 nasal cannula. Airvo has been discontinued, and the patient remains on oxygen at 5 L without any interval worsening oxygenation. Echo of the heart was also completed and the patient has a normal LV function without any valvular abnormalities Continue Lovenox for DVT prophylaxis Continue diuresis The patient has generalized weakness and the patient would benefit from rehabilitation. Recommend ECF transfer at time of discharge. Medication will be kept unchanged for now Will continue to follow
[2023-10-13 16:44] LABS: Glucose,Whole Blood 142 mg/dL (70-110)
[2023-10-13 20:02] LABS: Glucose,Whole Blood 184 mg/dL (70-110)
[2023-10-14 05:55] LABS: Glucose,Whole Blood 126 mg/dL (70-110)
[2023-10-14 09:56] LABS: Basophils # (A) 0.1 k/uL (0-0.2); Basophils % (A) 1 %; Eosinophils # (A) 0.1 k/uL (0-0.7); Eosinophils % (A) 1 %; HCT 36.9 % (39.0-53.0); Lymphocytes # (A) 2.4 k/uL (1.0-4.8); Lymphocytes % (A) 20 %; MCH 29.9 pg (25.0-35.0); MCHC 32.4 g/dL (31.0-37.0); MCV 92.2 fL (80.0-100.0); Mean Platelet Volume 11.3; Monocytes # (A) 1.4 k/uL (0-1.0); Monocytes % (A) 11 %; Neutrophils # (A) 7.8 k/uL (1.3-7.7); Neutrophils % (A) 65 %; RBC 4.01 m/uL (4.30-5.90); RDW 13.1 % (11.5-15.5)
--- NOTE | 2023-10-14 09:59 | P.PN ---
Subjective Patient is seen in follow-up for hyponatremia. Sodium level stable at 130 last few days. Has Rosales catheter. Nonoliguric. On IV Lasix. GFR at baseline. Vital signs are stable. General: No acute distress. HEENT: Head exam is unremarkable. On 5 L nasal cannula. LUNGS: Scattered rhonchi. HEART: Rate and Rhythm are regular. ABDOMEN: Nontender. EXTREMITITES: Trace edema. Objective - Vital Signs Vital signs: Vital Signs Temp 97.8 F 10/14/23 08:00 Pulse 71 10/14/23 08:00 Resp 16 10/14/23 08:00 BP 134/83 10/14/23 08:00 Pulse Ox 91 L 10/14/23 08:00 FiO2 40 10/11/23 08:00 Intake & Output 10/13/23 10/14/23 10/14/23 18:59 06:59 18:59 Intake Total 1080 Output Total 900 350 Balance 180 -350 Intake: Oral 1080 Output: Urine 900 350 Other: Voiding Method Indwelling Catheter Indwelling Catheter Indwelling Catheter # Bowel Movements 1 - Labs CBC & Chem 7: 10/12/23 07:43 10/13/23 06:22 Labs: Abnormal Lab Results - Last 24 Hours (Table) 10/13/23 10/13/23 10/13/23 Range/Units 11:55 16:43 20:01 POC Glucose (mg/dL) 126 H 142 H 184 H (70-110) mg/dL 10/14/23 Range/Units 05:54 POC Glucose (mg/dL) 126 H (70-110) mg/dL Assessment and Plan Plan: Assessment: 1. Hyponatremia. Due to urinary retention and hypervolemia. Sodium level stable at 130. TSH normal. Urine osmolality 543. Urine sodium less than 20. 2. Acute kidney injury secondary to urinary retention. Creatinine 1.26 on admission - 0.87 today. No proteinuria on UA. No hydronephrosis noted on kidney ultrasound. 3. Urinary retention status post Rosales catheter placement. On Flomax. Urology following. 4. Benign hypertension. Controlled. 5. Hypokalemia from diuresis. Replaced. 6. Rhabdomyolysis secondary to fall. CK level improved. Plan: Stop IV Lasix. Add oral Lasix 40 mg twice daily. Maintain 1200 cc fluid restriction. Encouraged oral intake. Preserved ejection fraction noted on echocardiogram. Avoid nephrotoxins. Continue to monitor renal function and urine output. Morning labs pending.
[2023-10-14 10:01] LABS: Platelet Count 265 k/uL (150-450)
[2023-10-14 10:21] LABS: ALT 50 U/L (4-49); AST 39 U/L (17-59); African American GFR (CKD) >90 (>60 ml/min/1.73 sqM); Albumin 2.9 g/dL (3.5-5.0); Alkaline Phosphatase 71 U/L (38-126); Anion Gap 8 mmol/L; Blood Urea Nitrogen 26 mg/dL (9-20); Calcium 8.4 mg/dL (8.4-10.2); Carbon Dioxide 28 mmol/L (22-30); Chloride 91 mmol/L (98-107); Glucose 144 mg/dL (74-99); Non-African American GFR(CKD) 83 (>60 ml/min/1.73 sqM); Potassium 3.7 mmol/L (3.5-5.1); Sodium 127 mmol/L (137-145); Total Bilirubin 1.6 mg/dL (0.2-1.3); Total Protein 6.1 g/dL (6.3-8.2)
[2023-10-14 11:01] LABS: Glucose,Whole Blood 153 mg/dL (70-110)
--- NOTE | 2023-10-14 11:55 | P.PN ---
Subjective patient is a 77-year-old gentleman past medical history significant for hypothyroidism, hypertension who presented to the ER for generalized weakness and fall. Patient was brought in by family members, apparently patient was trying to use the restroom when he lost all his strength and slumped to the ground. There was no complaint of any loss of consciousness. No complaint of weakness of any extremity. Family did not notice any slurred speech or facial droop. There was no complaint of fever or chills. No complaint of nausea, vomiting, abdominal pain. Patient's family tried to help him to get up but they were unable to lift him. They called EMS and they brought him to ER. Initial lab work done in the ER showed WBC 10.5, hemoglobin 15.2, platelet count 165, sodium 118, potassium 4.1, BUN 24, creatinine 1.26, plasma lactate 4.1, tro ponin 0.012 UA negative for any infection EKG done in the ER showed heart rate of 75, no ST segment elevation or depression seen, no T-wave inversions seen. Chest x-ray done in the ER no acute cardiopulmonary process CT head done showed no acute intracranial process Patient admitted to internal medicine service 09/29. Patient seen and examined. COVID-19 came back positive. Currently on 4 L of oxygen. Sodium this morning is 121. Still complain lethargy and weakness. Patient also diagnosed with COVID 09/30. Patient seen and examined. Blood work done this morning showed WBC 14.9, hemoglobin 12.9, platelet count 146, sodium 126, potassium 3.9, BUN 15, creatinine 0.68. States he feels much better. Shortness of breath is improved. 10/01. Patient seen and examined. Still on 15 L of oxygen via nonrebreather. States he feels better. Sodium level improved to 132, potassium 3.3, BUN 18, creatinine 0.65. Lethargy has improved. 10/02. Patient seen and examined. Currently on 8 L of oxygen via high flow nasal cannula. States he feels much better, breathing is improved, pulmonology recommended sniff test to look for right diaphragm paralysis 10/03. Patient seen and examined. Continues to be on 15 L of oxygen. Patient is not lethargic, states gets short of breath on exertion. Denies any nausea or vomiting 10/04/2023 Patient seen and evaluated in follow-up today continues to be dyspneic maintained on high flow oxygen is being transferred to [facility]. Per nursing staff he continues to remove his nasal cannula as well as nonrebreather and respiratory following recommending i continuing this for a few hours. Patient has noted to be COVID-positive. Sodium is slightly low at 132 potassium was 3.3 yesterday and replaced awaiting follow-up labs. Patient with prolonged hospitalization and continued weakness will likely need ECF once stabilized. 10/05/2023 Patient is seen in follow-up this morning continues on Airvo with maximum oxygen at 60/90 maintaining oxygen saturations in the 88 percentile range. Patient reports having worsening shortness of breath although appears somewhat confused at times. Discussed CODE STATUS with the patient and he wishes to remain full code. Patient is agreeable to mechanical ventilation if required. Patient continues to remove his oxygen from his face desats very quickly. Will get a chest x-ray and continue to monitor closely. Pulmonary and infectious disease following and patient is continued on cefepime with concerns of pneumonia. Patient is currently afebrile and denies chest pain or shortness of breath. Patient reports he is eating although not much of an appetite. 10/06/2023 Patient is seen in follow-up today was transferred to the ICU for respiratory decline per nursing staff as patient continued to have respiratory distress and low oxygen saturations becoming more hypoxic and confused. Patient is continued on Airvo max 60/90 with continued intermittent nonrebreather use. Patient is continued on steroids along with inhalers and pulmonary is following closely. Patient is afebrile with no reported chest pain or shortness of breath. Patient reports to tolerating diet although appears not to be eating very much at all. 10/07/2023 Patient is seen and evaluated in follow-up today continues in the ICU on high flow Airvo 60 L / 90% with oxygen saturations in the low 90s. On exam patient was found to have Airvo out of his nostrils and using nonrebreather and oxygen saturation was 93%. Patient is maintained on antibiotics with infectious disease following closely along with pulmonary brushing machine operator. CODE STATUS was addressed once again and patient wishes to remain full code. Wean FiO2 as t olerated. Encouraged oral intake. Patient to be evaluated by physical therapy once respiratory status improved and will need rehab. 10/09/2023 Patient lying in bed, mildly tachypneic with no chest pain He remains on Airvo 60 L/min Vital stable Remains on dexamethasone and Pepcid Resume of the care of the patient 10/12/2023 Patient with Covid infection and possible right lower lobe pneumonia finish her antibiotics. He does not need antiviral therapy but there is evidence of oral thrush and discovered covered with Diflucan and received nystatin as well. His leukocytosis stable about 18k, no fever. Patient also with fluid overload and hyponatremia sodium 1:30 status post 1 Samsca today, also patient is on IV Lasix 40 mg twice daily Patient currently is oxygen via nasal cannula saturating 88% which is improved from previous, airvo oxygen was stopped 10/13/2023 Patient is clinically stable. He is awake and alert not in distress his breathing is improving and currently he is on 4-5 L/m of oxygen which is a stable Has good air entry bilaterally. I discussed the case with pulmonary team and patient might be considered for discharge from their perspective is also on Diflucan and WBCs 18,000 Status post Samsca and sodium stable at 1:30, low potassium replaced I discussed the case with social security assessor and patient does not need a bone isolation for his Covid. However he is prior authorization Possible discharge in 24-48 hours 10/14/23 Patient mentation is at baseline No new complaints, no chest pain no significant dyspnea He remains on 5 L oxygen via nasal cannula WBC improved down to 12,000, hemoglobin 12, sodium slightly low at 127, glucose controlled. Ejection fraction 60-65% Remains on Diflucan. Today IV Lasix switched to by mouth 40 mg twice daily Discussed with case finisher, still pending placement. Still family having contacted staff. Objective - Vital Signs Vital signs: Vital Signs Temp 97.8 F 10/14/23 08:00 Pulse 71 10/14/23 08:00 Resp 16 10/14/23 08:00 BP 134/83 10/14/23 08:00 Pulse Ox 91 L 10/14/23 08:00 FiO2 40 10/11/23 08:00 Intake & Output 10/13/23 10/14/23 10/14/23 18:59 06:59 18:59 Intake Total 1080 Output Total 900 350 800 Balance 180 -350 -800 Intake: Oral 1080 Output: Urine 900 350 800 Other: Voiding Method Indwelling Catheter Indwelling Catheter Indwelling Catheter # Bowel Movements 1 - Exam GENERAL: The patient is alert and oriented x3, not in any acute distress. Well developed, well nourished. HEENT: Pupils are round and equally reacting to light. EOMI. No scleral icterus. No conjunctival pallor. Normocephalic, atraumatic. No pharyngeal erythema. No t hyromegaly. CARDIOVASCULAR: S1 and S2 present. No murmurs, rubs, or gallops. PULMONARY: Chest is clear to auscultation, no wheezing , no crackles. ABDOMEN: Soft, nontender, nondistended, normoactive bowel sounds. No palpable organomegaly. MUSCULOSKELETAL: No joint swelling or deformity. EXTREMITIES: No cyanosis, clubbing, or pedal edema. NEUROLOGICAL: Gross neurological examination did not reveal any focal deficits. SKIN: No rashes. no petechiae. - Labs CBC & Chem 7: 10/14/23 09:00 10/14/23 09:00 Labs: Abnormal Lab Results - Last 24 Hours (Table) 10/13/23 10/13/23 10/13/23 Range/Units 11:55 16:43 20:01 WBC (3.8-10.6) k/uL RBC (4.30-5.90) m/uL Hgb (13.0-17.5) gm/dL Hct (39.0-53.0) % Neutrophils # (1.3-7.7) k/uL Monocytes # (0-1.0) k/uL Sodium (137-145) mmol/L Chloride (98-107) mmol/L BUN (9-20) mg/dL Glucose (74-99) mg/dL POC Glucose (mg/dL) 126 H 142 H 184 H (70-110) mg/dL Total Bilirubin (0.2-1.3) mg/dL ALT (4-49) U/L C-Reactive Protein (<1.0) mg/dL Total Protein (6.3-8.2) g/dL Albumin (3.5-5.0) g/dL 10/14/23 10/14/23 10/14/23 Range/Units 05:54 09:00 09:00 WBC 12.0 H (3.8-10.6) k/uL RBC 4.01 L (4.30-5.90) m/uL Hgb 12.0 L (13.0-17.5) gm/dL Hct 36.9 L (39.0-53.0) % Neutrophils # 7.8 H (1.3-7.7) k/uL Monocytes # 1.4 H (0-1.0) k/uL Sodium (137-145) mmol/L Chloride (98-107) mmol/L BUN (9-20) mg/dL Glucose (74-99) mg/dL POC Glucose (mg/dL) 126 H (70-110) mg/dL Total Bilirubin (0.2-1.3) mg/dL ALT (4-49) U/L C-Reactive Protein 23.3 H (<1.0) mg/dL Total Protein (6.3-8.2) g/dL Albumin (3.5-5.0) g/dL 10/14/23 10/14/23 Range/Units 09:00 10:58 WBC (3.8-10.6) k/uL RBC (4.30-5.90) m/uL Hgb (13.0-17.5) gm/dL Hct (39.0-53.0) % Neutrophils # (1.3-7.7) k/uL Monocytes # (0-1.0) k/uL Sodium 127 L (137-145) mmol/L Chloride 91 L (98-107) mmol/L BUN 26 H (9-20) mg/dL Glucose 144 H (74-99) mg/dL POC Glucose (mg/dL) 153 H (70-110) mg/dL Total Bilirubin 1.6 H (0.2-1.3) mg/dL ALT 50 H (4-49) U/L C-Reactive Protein (<1.0) mg/dL Total Protein 6.1 L (6.3-8.2) g/dL Albumin 2.9 L (3.5-5.0) g/dL Assessment and Plan Assessment: Hyponatremia secondary to poor oral intake, COVID-19 Acute hypoxic respiratory failure secondary to COVID-19, now requiring oxygen via nasal cannula. Improved Altered mental status, with toxic metabolic encephalopathy likely secondary to hypoxia as patient continues to remove oxygen mask from his face Generalized weakness Rhabdomyolysis. Improved Fall Urinary retention requiring indwelling Rosales catheter Hypothyroidism Hypertension Obesity with a BMI of 35.0 Plan: Patient is continued on oxygen 5 L/m Continue with IV Lasix 40 mg twice daily Status post Samsca 1 and monitor sodium level His sugar still elevated while he is on Levemir 48 units daily before going to add NovoLog 5 units with meals Continue with Diflucan Summer consult is on the case including ID team, pulmonary and nephrology Labs and medication were reviewed.. Continue same treatment. Continue with symptomatic treatment. Resume home medication. Monitor labs and vitals. DVT and GI prophylaxis. Further recommendations as per clinical course of the patient DVT prophylaxis: Subcutaneous Lovenox GI Prophylaxis: Pepcid PT/OT: heather prognosis is guarded
--- NOTE | 2023-10-14 15:03 | P.PN ---
Subjective Progress Note Date: 10/14/23 This is a 77-year-old male patient with a history of hypertension, seizure disorder, thyroid disorder, former smoker. On September 27, 2023 the patient had gotten up to go the bathroom and slumped onto the ground. He had been reportedly laying on the ground for several hours by family were attempting to get in helping him get up but he was unable to support himself. He also had trouble with urinary incontinence. EMS was called and he was brought here for evaluation. CT scan of the brain revealed no acute intracranial hemorrhage, midline shift or mass effect. EKG revealed sinus rhythm with no significant ST or T wave abnormalities. White count 14.9. Hemoglobin 12.9. Platelets 146. Sodium 126. Potassium 3.9. Bicarb 26. BUN 15. Creatinine 0.68. Glucose 152. AST 148. ALT 43. Creatinine kinase 2283. He did test positive for COVID-19 infection. His initial sodium level was 118. BUN of 24 and a creatinine of 1.26. He had been seen by nephrology, urology and infectious disease. A chest x-ray was done today September 30, 2023 that revealed an elevated right hemidiaphragm and we are consulted for the same. He was sent for a sniff test however the patient was unable to perform the appropriate maneuvers due to overall condition. He is seen on consultation on the selective care unit. He is currently resting in bed. Difficult to arouse but arousable. He is on a nonrebreather mask with O2 saturation of 90%. Currently afebrile. Hemodynamically stable. He has been initiated on Decadron. Antibiotics in the form of cefepime. Saline at 50 MLS per hour. Patient was evaluated today on 10/01/2023, more awake today, more responsive, seems to be more alert, and remains on a nonrebreather mask which I have recommended to transition to high flow nasal cannula. Patient did transition to 10 L high flow nasal cannula and O2 saturation was ranging between 92 up to 96% definitely better today compared to the last couple of days. Still planning to repeat his sniff test to evaluate for right hemidiaphragm paralysis. Procalcitonin level came back elevated at 0.43, patient remains on antibiotics for presumptive right lower lobe pneumonia. WBC count today 13.9 hemoglobin 13.0.Basic metabolic profile is relatively normal. Reevaluated today on 10/02/2023, patient is on 10 L high flow nasal cannula, doing better, breathing easier, O2 saturation is in the low 90s, patient continues to have diminished breath sounds at the right base, and I believe the patient has right hemidiaphragm paralysis with right lower lobe atelectasis, possible underlying pneumonia, but I feel clinically this is not the picture. At any rate the patient is supposed to have a sniff test tomorrow, may even have to consider a CT of the chest to evaluate the right lower lobe further. Based on the sniff test, further recommendations will follow. In the meantime patient is gradually improving, feeling better, breathing easier and definitely his neurological status is significantly improved now compared to how he was few days ago WBC count is 10.2 hemoglobin is 12.3, sodium is up to 130, potassium 3.1 renal profile is normal procalcitonin level on this patient was 0.43, hence he was empirically placed on antibiotics for presumptive right lower lobe pneumonia Progress note dated October 03, 2023. The patient is seen today in room 362. He continues on a nonrebreather mask. Previously, he was on 15 L high flow oxygen. Because of saturations in the high 80s, the nurse switched him to a nonrebreather mask. Currently his saturations are in the low 90s. The patient continues on Decadron, and cefepime. He is getting saline at 50 cc an hour. His procalcitonin level is 0.43. Laboratory data includes a white count 11.3, hemoglobin 13, hematocrit 39.6, and a platelet count of 196,000. Sodium 132, potassium 3.3, chloride 97, CO2 30, BUN 15, creatinine 0.51. The patient's albumin is 2.8. AST is 101, and ALT is 53. Chest x-ray shows some basilar atelectasis or infiltrate, with an elevated right diaphragm, and possible effusion. Progress note dated October 04, 2023. 77-year-old male, seen today in room 362. The patient was initially on a nonrebreather, but saturations were only in the mid 80s. The patient was converted to Airvo, with settings of 60 L/min, with an FiO2 of 95%. His saturations then increased to 88 to 90%. The patient is not receiving any IV fluids. No new labs today. Labs from October 03 have been reviewed. Microbiologic sampling, is negative or pending. Chest x-ray reveals borderline cardiomegaly, with ongoing asymmetric elevation of the right hemidiaphragm. There is increasing patchy bibasilar atelectasis/infiltrate. Progress note dated October 05, 2023. 77-year-old male seen today in room 362. Currently, the patient is on Airvo, with settings of 60 L/min and an FiO2 of 90%. The patient is also wearing a nonrebreather mask, over the Airvo nasal cannula. The patient continues on Decadron and cefepime. We have asked for chest x-ray tomorrow. Clinically, the patient looks reasonably stable, and does not appear to be short of breath. I have asked the nurse, to call respiratory, to adjust his Airvo nasal cannula, and a nonrebreather mask. No new labs today. Progress note dated October 06, 2023. 77-year-old male, seen today in room 256. The patient's respiratory status declined through the night, and the patient was transferred down to the intensive care unit. The patient had blood gases, showing a pO2 of 126, pCO2 of 21, and a pH of 7.70. This blood gas is consistent with a mixed respiratory and metabolic alkalosis. The patient did test positive initially for coronavirus. He is currently on Airvo, with settings of 60 L/min and an FiO2 of 90%. In addition, he is getting a nonrebreather mask. The patient is not receiving any IV fluids. Saturations are in the low to mid 90s. The patient continues on cefepime. Labs include a white count 15, hemoglobin 13.4, hematocrit 39.6, and a platelet count of 181,000. Sodium 133, potassium 3.2, chlorides 96, CO2 29, BUN 28, creatinine 0.81. Glucose is 110. Calcium is 8.4. Chest x-ray shows some patchy mid and lower lung opacities, either the same from the previous x- ray, or mildly improved. There is also elevation of the right diaphragm. Progress note dated October 07, 2023. 77-year-old male seen today in room 256. The patient is currently on Airvo, at 60 L/min with an FiO2 of 90%. Saturations are between 92 and 93%. Occasionall y, he has a nonrebreather mask, over the Airvo nasal cannula. He is not receiving any IV fluids. He had an uneventful night according to the nurses. His white count is 15.7, hemoglobin 12.4, hematocrit 37.9, and platelet count is normal. Sodium 134, potassium 3.8, chlorides 98, CO2 29, BUN 32, creatinine 0.8. Glucose 141. Calcium 8.4. Chest x-ray is unchanged and shows similar patchy infiltrates, in the mid and lower lung zones, with the right diaphragm elevation. Progress note dated October 08, 2023. 77-year-old male seen today in room 256. The patient is currently on Airvo, at 60 L/min, with an FiO2 of 80%. Yesterday, he was on 90%. He is not receiving any IV fluids. We can discontinue isolation. In addition, he has been on cefepime for some time, so that we will be discontinued as well. Current labs include a white count of 14.3, hemoglobin 11.8, hematocrit 36.6, and a normal platelet count of 153,000. Sodium 131, potassium 4, chloride 96, CO2 31, BUN 37, creatinine 0.71. Glucose is 137. Calcium 8.5. Magnesium 2.0. Yesterday's chest x-ray was unchanged. Progress note dated October 09, 2023. 77-year-old male, again seen in room 256. The patient was admitted with a diagnosis of coronavirus infection, and probable coronavirus associated pneumonia. The patient is currently on Airvo, with settings of 60 L/min and an FiO2 of 85%. The patient is not receiving any IV fluids. His chest x-ray today, looks a bit better. Clinically, he is about the same. Current labs include a white count of 17.1, hemoglobin 12.7, hematocrit 37.7, and a normal platelet count. Sodium 130, potassium 4.2, chlorides 92, CO2 31, BUN 37, creatinine 0.8. The patient's glucose was 118. Calcium 8.7. On today's evaluation of 10/10/2023, the patient is being seen for a follow-up in the intensive care unit. The patient remains on high flow oxygen and the patient remains on Airvo 45 L with an FiO2 of 60%. Calm and comfortable. The patient has completed course of IV cefepime. The patient also has completed a course of Decadron. Further is being gradually weaned off. No significant cough or sputum production. No chest tightness. No wheezing. He is calm and comfortable. The white cell count of 16.5 with a hemoglobin 12.5 and a platelet count of 196. BUN is at 38 with a creatinine of 0.9 and sodium levels at 130. Hemodynamically stable. No other specific complaints otherwise for now. Chest x-ray shows significant elevation of the right hemidiaphragm along with patchy infiltrative changes consistent with COVID-19 related pneumonia. The patient remains on Lasix 40 mg IV every 12 hours and net fluid balance is -1.3 L over the past 24 hours. Renal function remained stable. On today's evaluation of 10/11/2023, the patient is being seen for a follow-up. The patient is oxygenation has improved significantly and the patient was taken off the Airvo this morning and the patient was transitioned to 5 L of oxygen by nasal cannula. He is using incentive spirometer. He remains on IV Lasix. Fluid balance has been -1.3 L over the past 24 hours. BUN is at 40 with a creatinine of 0.8 and a sodium levels of 130. The white cell count is still elevated at 18.8 with a hemoglobin 15.5. Awake and alert and communicating. Completed Decadron. Completed the course of IV antibiotics with IV cefepime. On today's evaluation of 10/12/2023, I am seeing the patient for a follow-up. Overall condition remained stable as the patient got transferred out of the intensive care unit. The patient is currently on 5 L of O2 nasal cannula. Using the incentive spirometer. No respiratory difficulties. No aspiration. No antibiotics. No steroids. He is weak and he would benefit from. No nausea. No emesis. No chest pain. His CODE STATUS was again addressed by the primary care team and the patient is still in full CODE STATUS. WBC count is at 18.4 wi th a hemoglobin 12.1 and a platelet count of 232. BUN is at 36 with a creatinine of 0.9. Sodium is at 130. On 10/13/2023, the patient is being seen for a follow-up. The patient is stable on 5 L of oxygen by nasal cannula. No new complaints. No interval worsening shortness of breath. No significant cough or sputum production. No aspiration. Remains weak. Would benefit from rehabilitation and we are contemplating to discharge patient to an ECF facility. Blood work from today shows a sodium level of 130, potassium is at 3.2, bicarb is at 33 with a BUN of 27 with a creatinine of 0.8. He is using incentive spirometer. No altered mentation. Quite weak, has difficulty with mobility and the patient has walker at the bedside and physical therapy has been involved in his care. Proximal, more than in the unit PCR DNA clinical specimens 10/14/2023, the patient is calm and comfortable. No significant complaints and the patient is resting comfortably in bed. Tolerating diet. Remains on 5 L of oxygen by nasal cannula. No other significant events overnight. White cell count of 12, h emoglobin is at 12, platelet count is at 265 with a BUN of 26 and a creatinine of 0.8. Generalized weakness and debility and the patient is looking for rehabilitation. Objective - Vital Signs Vital signs: Vital Signs Temp 97.6 F 10/14/23 03:24 Pulse 89 10/14/23 03:24 Resp 16 10/14/23 03:24 BP 133/87 10/14/23 03:24 Pulse Ox 90 L 10/14/23 03:24 FiO2 40 10/11/23 08:00 Intake & Output 10/13/23 10/14/23 10/14/23 18:59 06:59 18:59 Intake Total 1080 Output Total 900 350 Balance 180 -350 Intake: Oral 1080 Output: Urine 900 350 Other: Voiding Method Indwelling Catheter Indwelling Catheter # Bowel Movements 1 - Exam No acute distress, awake, currently on Airvo. Patient is currently on 5 L of oxygen nasal cannula HEENT examination is grossly unremarkable. Mucous membranes are moist. No oral lesions. Neck supple. Full range of motion. No adenopathy thyromegaly or neck vein distention. Cardiovascular examination reveals regular rhythm rate. S1-S2 normal. No S3 or S4. No discernible murmur noted. Heart sounds are distant. Lungs reveal electively clear but diminished breath sounds throughout. Minimal rhonchi. No wheezes. Crackles in the lung base bilaterally and the patient has diminished breath sounds right lung base Abdomen soft bowel sounds are heard. No masses or tenderness. Extremities are intact. No cyanosis clubbing or edema. Skin is without rash or lesion. Neurologic examination is brief but nonfocal. - Labs CBC & Chem 7: 10/14/23 09:00 10/14/23 09:00 Labs: Abnormal Lab Results - Last 24 Hours (Table) 10/13/23 10/13/23 10/13/23 Range/Units 11:55 16:43 20:01 POC Glucose (mg/dL) 126 H 142 H 184 H (70-110) mg/dL 10/14/23 Range/Units 05:54 POC Glucose (mg/dL) 126 H (70-110) mg/dL Assessment and Plan Plan: Acute hypoxemic respiratory failure secondary to right lower lobe atelectasis/consolidation, and possible pneumonia. The acute hypoxic respiratory failure is multifactorial. The patient had an acute COVID-19 related pneumonia with patchy bilateral pulmonary infiltrates in addition to that, the patient has chronic right hemidiaphragmatic paralysis and right hemidiaphragmatic elevation. Most recent chest x-ray that was done on 10/10/2023 showed stable patchy pulm infiltrates in the left lower lobe and the right lower lobe. The patient remains is improving. Oxygenation is improved and the patient is currently off the Airvo and he was transitioned to 5 L of oxygen by nasal cannula. Oxygenation remained stable. Shortness of breath secondary to above, improving Generalized weakness, likely secondary to coronavirus infection, and hyponatremia. Acute mental status changes, likely secondary to metabolic encephalopathy. Acute coronavirus infection, without evidence of coronavirus associated pneumonia. Right diaphragm elevation, and possible paresis/paralysis. Hyponatremia. Sodium level stable at 130 Acute kidney injury, recovered and renal function has normalized Rhabdomyolysis, stable History of seizure disorder. History of hypothyroidism. History of hypertension. Previous history of tobacco use. Mild hyponatremia with sodium levels at 127. The patient remains on Lasix 40 mg p.o. twice a day. Plan The patient is seeking rehabilitation as the patient has generalized debility and weakness. Overall respiratory status remained stable and the patient rem ains on 5 L of O2 nasal cannula Aggressive pulmonary toileting and use of incentive spirometer Overall weak due to his prolonged hospitalization and the patient will benefit from rehabilitation. Consider ECF for physical therapy and rehab at the time of discharge. Labs were reviewed and no significant abnormalities. Sodium level needs to be monitored Echo of the heart was also completed and the patient has a normal LV function without any valvular abnormalities Continue Lovenox for DVT prophylaxis Continue diuresis The patient has generalized weakness and the patient would benefit from rehab ilitation. Recommend ECF transfer at time of discharge. Medication will be kept unchanged for now Will continue to follow
--- NOTE | 2023-10-14 15:06 | P.PN ---
Subjective Progress Note Date: 10/14/23 Principal diagnosis: Reason for follow-up is COVID-19 and pneumonia Patient is a 77-year-old male with a past medical history significant for hypertension seizure disorder hypothyroidism patient has been brought into the hospital for evaluation of generalized weakness patient was noticed to be on the bathroom floor after apparently patient fell down, patient did tested positive for COVID-19, initial chest x-ray reported negative. On today's evaluation that is 10/14/2023,the patient denies any fever or any chills, patient is breathing comfortably on 5 L nasal cannula oxygen, the patient denies chest pain shortness of breath and no significant cough, patient denies abdominal pain, no nausea vomiting or diarrhea. Has been complaining of sore to bilateral gluteal area patient white count is down to 12,000, creatinine 0.89 Objective - Vital Signs Vital signs: Vital Signs Temp 97.9 F 10/14/23 12:00 Pulse 71 10/14/23 12:30 Resp 16 10/14/23 12:30 BP 129/76 10/14/23 12:00 Pulse Ox 94 L 10/14/23 12:00 FiO2 40 10/11/23 08:00 Intake & Output 10/13/23 10/14/23 10/14/23 18:59 06:59 18:59 Intake Total 1080 Output Total 900 350 800 Balance 180 -350 -800 Intake: Oral 1080 Output: Urine 900 350 800 Other: Voiding Method Indwelling Catheter Indwelling Catheter Indwelling Catheter # Bowel Movements 1 - Exam GENERAL DESCRIPTION: An elderly male lying in bed in no distress RESPIRATORY SYSTEM: Unlabored breathing , decreased breath sounds at bases HEART: S1 S2 regular rate and rhythm , ABDOMEN: Soft , no tenderness EXTREMITIES: No edema feet - Labs CBC & Chem 7: 10/14/23 09:00 10/14/23 09:00 Labs: Abnormal Lab Results - Last 24 Hours (Table) 10/13/23 10/13/23 10/14/23 Range/Units 16:43 20:01 05:54 WBC (3.8-10.6) k/uL RBC (4.30-5.90) m/uL Hgb (13.0-17.5) gm/dL Hct (39.0-53.0) % Neutrophils # (1.3-7.7) k/uL Monocytes # (0-1.0) k/uL Sodium (137-145) mmol/L Chloride (98-107) mmol/L BUN (9-20) mg/dL Glucose (74-99) mg/dL POC Glucose (mg/dL) 142 H 184 H 126 H (70-110) mg/dL Total Bilirubin (0.2-1.3) mg/dL ALT (4-49) U/L C-Reactive Protein (<1.0) mg/dL Total Protein (6.3-8.2) g/dL Albumin (3.5-5.0) g/dL 10/14/23 10/14/23 10/14/23 Range/Units 09:00 09:00 09:00 WBC 12.0 H (3.8-10.6) k/uL RBC 4.01 L (4.30-5.90) m/uL Hgb 12.0 L (13.0-17.5) gm/dL Hct 36.9 L (39.0-53.0) % Neutrophils # 7.8 H (1.3-7.7) k/uL Monocytes # 1.4 H (0-1.0) k/uL Sodium 127 L (137-145) mmol/L Chloride 91 L (98-107) mmol/L BUN 26 H (9-20) mg/dL Glucose 144 H (74-99) mg/dL POC Glucose (mg/dL) (70-110) mg/dL Total Bilirubin 1.6 H (0.2-1.3) mg/dL ALT 50 H (4-49) U/L C-Reactive Protein 23.3 H (<1.0) mg/dL Total Protein 6.1 L (6.3-8.2) g/dL Albumin 2.9 L (3.5-5.0) g/dL 10/14/23 Range/Units 10:58 WBC (3.8-10.6) k/uL RBC (4.30-5.90) m/uL Hgb (13.0-17.5) gm/dL Hct (39.0-53.0) % Neutrophils # (1.3-7.7) k/uL Monocytes # (0-1.0) k/uL Sodium (137-145) mmol/L Chloride (98-107) mmol/L BUN (9-20) mg/dL Glucose (74-99) mg/dL POC Glucose (mg/dL) 153 H (70-110) mg/dL Total Bilirubin (0.2-1.3) mg/dL ALT (4-49) U/L C-Reactive Protein (<1.0) mg/dL Total Protein (6.3-8.2) g/dL Albumin (3.5-5.0) g/dL Assessment and Plan (1) COVID-19 Current Visit: Yes Status: Acute Code(s): U07.1 - COVID-19 SNOMED Code(s): 386346309 (2) Sepsis Current Visit: Yes Status: Acute Code(s): A41.9 - SEPSIS, UNSPECIFIED ORGANISM SNOMED Code(s): 76846508 (3) Pneumonia Current Visit: Yes Status: Acute Code(s): J18.9 - PNEUMONIA, UNSPECIFIED ORGANISM SNOMED Code(s): 857518340 (4) Penicillin allergy Current Visit: Yes Status: Acute Code(s): Z88.0 - ALLERGY STATUS TO PENICILLIN SNOMED Code(s): 58844259 (5) Thrush Current Visit: Yes Status: Acute Code(s): B37.0 - CANDIDAL STOMATITIS SNOMED Code(s): 62737424 (6) Thrush, oral Current Visit: Yes Status: Acute Code(s): B37.0 - CANDIDAL STOMATITIS SNOMED Code(s): 02423829 Plan: 1patient presented to hospital generalized weakness and did have a fall source likely multifactorial. He tested positive for COVID-19 however initial chest x- ray was negative for acute infiltrate however subsequent x-ray shows worsening bibasilar infiltrate concerning for possible secondary bacterial pneumonia for the patient to complete his course of antibiotic therapy 2-patient leukocytosis which is multifactorial possible steroid related also have a component of thrush patient to continue with the nystatin swish and swallow along with Diflucan, the patient white count is trending down and will be continue with the current therapy 3patient did have bilateral gluteal stage II ulcer complaining of pain recommend local care with the zinc keep the area of the pressure Dictation was produced using [employer] dictation software. please excuse any grammatical, word or spelling errors. Time with Patient: Less than 30
[2023-10-14] MEDS: FUROSEMIDE 40 MG TAB PO SCH (15:30)
[2023-10-14] MEDS: TOLVAPTAN 15 MG TABLET PO ONE (15:30)
[2023-10-14 16:19] LABS: Glucose,Whole Blood 131 mg/dL (70-110)
[2023-10-14 17:01] LABS: Glucose,Whole Blood 151 mg/dL (70-110)
--- NOTE | 2023-10-14 17:35 | P.EN ---
CODE BLUE started at 1702 on 10/14/2023. Patient found to be in pulseless V. tach/V-fib. Patient had a total of 3 epi, intubated at 1709 bicarb x 2, MU 300 bolus, subsequently 150 bolus. Shocked x 1, 200 J at 1707. Magnesium 2 g and calcium 1 g also given. Had pulse at 1707 briefly, CPR continued. ROSC at 1711. Started on Levophed at 1714. Blood pressure 118/77 at 1721. Patient subsequently transferred to medical ICU.
--- NOTE | 2023-10-14 18:21 | XR ---
EXAMINATION TYPE: XR chest 1V portable DATE OF EXAM: 10/14/2023 6:07 PM CLINICAL INDICATION:Male, 77 years old with history of intubated; [facility] COMPARISON: Chest radiographs from 10/04/2023. TECHNIQUE: XR chest 1V portable Frontal view of the chest. FINDINGS: Lungs/Pleura: Airspace opacities throughout the right lung with elevated right diaphragm. There is ma sslike opacity in the right perihilar region measuring 52 x 38 mm. Pulmonary vascularity: Unremarkable. Heart/mediastinum: Cardiomediastinal silhouette is unremarkable. Musculoskeletal: No acute osseous pathology. Other findings: None Lines/Tubes: Endotracheal tube with distal tip 3.9 cm above the emile. Nasogastric tube with side-port projecting over the distal esophagus. IMPRESSION: 1. Nasogastric tube side-port near the distal esophagus consider advancement of 8 cm for optimal carlo cement. 2. Endotracheal tube in appropriate position. 3. Masslike opacity along the right hilum with airspace opacities correlate for obstructive perihila r mass on the right.
[2023-10-14 18:23] LABS: ABG Base Excess 8.9 mmol/L; ABG HCO3 32 mmol/L (21-25); ABG Oxygen Saturation 92.1 % (94-97); ABG PCO2 43 mmHg (35-45); ABG PH 7.49 (7.35-7.45); ABG PO2 63 mmHg (83-108); ABG TCO2 34 mmol/L (19-24); Allen Test Performed? Yes
--- NOTE | 2023-10-14 18:29 | P.PCN ---
Date of Procedure: 10/14/23 Preoperative Diagnosis: Cardiac arrest, acute STEMI Postoperative Diagnosis: Cardiac arrest, acute STEMI Procedure(s) Performed: Central line, arterial line insertion Anesthesia: local Surgeon: Zaynab Jacome Estimated Blood Loss (ml): 0 Pathology: other Condition: critical Disposition: ICU Operative Findings: Indication: Hemodynamic monitoring. A time-out was completed verifying correct patient, procedure, site, positioning, and implant(s) or special equipment if applicable. The patients right groin was prepped and draped in sterile fashion. 1% Lidocaine was used to anesthetize the area. An 18G Arrow arterial line was introduced into the radial artery. The catheter was threaded over the guide wire into the right femoral artery and the needle was removed with appropriate pulsatile blood return. Blood loss was minimal. The catheter was then sutured in place to the skin and a sterile dressing applied. Perfusion to the extremity distal to the point of catheter insertion was checked and found to be adequate. The patient tolerated the procedure well and there were no complications. Indication: Hemodynamic monitoring/Intravenous access. A time-out was completed verifying correct patient, procedure, site, positioning, and implant(s) or special equipment if applicable. The patient was placed in a dependent position appropriate for central line placement based on the vein to be cannulated. The patients right groin was prepped and draped in sterile fashion. 1% Lidocaine was used to anesthetize the surrounding skin area. A triple lumen 9F Cordis catheter was introduced into the right common femoral vein using Seldinger technique. The catheter was threaded smoothly over the guide wire and appropriate blood return was obtained. Each lumen of the catheter was evacuated of air and flushed with sterile saline. The catheter was then sutured in place to the skin and a sterile dressing applied. Perfusion to the extremity distal to the point of catheter insertion was checked and found to be adequate. The patient tolerated the procedure well and there were no complications.
[2023-10-14] MEDS: propofoL 100 ML IV ONE (18:37)
[2023-10-14] MEDS: NOREPINEPHRINE 8 MG in SODIUM CHLORIDE 0.9% 250 ML IV SCH (18:38)
[2023-10-14] MEDS: AMIODARONE 360 MG in DEXTROSE 5% IN WATER 200 ML IV SCH (18:38)
[2023-10-14 18:48] LABS: HCT 36.7 % (39.0-53.0); MCH 29.9 pg (25.0-35.0); MCHC 32.7 g/dL (31.0-37.0); MCV 91.6 fL (80.0-100.0); Mean Platelet Volume 10.1; Platelet Count 339 k/uL (150-450); RBC 4.01 m/uL (4.30-5.90); RDW 13.3 % (11.5-15.5)
[2023-10-14] MEDS: SODIUM CHLORIDE 0.9% 500 ML 500 ML IV ONE (18:50)
[2023-10-14 18:59] LABS: ALT 46 U/L (4-49); AST 46 U/L (17-59); African American GFR (CKD) 84 (>60 ml/min/1.73 sqM); Albumin 2.9 g/dL (3.5-5.0); Alkaline Phosphatase 84 U/L (38-126); Anion Gap 10 mmol/L; Blood Urea Nitrogen 24 mg/dL (9-20); Calcium 9.6 mg/dL (8.4-10.2); Carbon Dioxide 30 mmol/L (22-30); Chloride 88 mmol/L (98-107); Glucose 256 mg/dL (74-99); Magnesium 2.6 mg/dL (1.6-2.3); Non-African American GFR(CKD) 73 (>60 ml/min/1.73 sqM); Potassium 3.3 mmol/L (3.5-5.1); Sodium 128 mmol/L (137-145); Total Bilirubin 1.8 mg/dL (0.2-1.3); Total Protein 6.1 g/dL (6.3-8.2)
[2023-10-14] MEDS: MAGNESIUM SULFATE-D5W PMX 1 GM in DEXTROSE/WATER 1 100ML.BAG IVPB SCH (19:00)
[2023-10-14] MEDS: LIDOCAINE-D5W PMX 2G/250ML 2,000 MG in DEXTROSE/WATER 1 250ML.BAG IV SCH (19:00)
[2023-10-14] MEDS: POTASSIUM CHLORIDE 20 MEQ in WATER FOR INJECTION 1 100ML.BAG IVPB STA (19:00)
[2023-10-14] MEDS: HEPARIN SODIUM 1,000 UN/ML (10ML VL) IV ONE ×2 (19:26→19:49)
[2023-10-14] MEDS: IOPAMIDOL-370 100ML BTL INJ ONE ×3 (19:35→22:11)
[2023-10-14] MEDS: VASOPRESSIN 60 UNIT in SODIUM CHLORIDE 0.9% 150 ML IV ONE (20:15)
[2023-10-14] MEDS ORDERED: FUROSEMIDE 10 MG/ML 4 ML VIAL ONE (20:34)
[2023-10-14] MEDS: FUROSEMIDE 10 MG/ML 4 ML VIAL IV ONE (20:40)
[2023-10-14 20:50] LABS: ABG Base Excess 1.8 mmol/L; ABG HCO3 26 mmol/L (21-25); ABG Oxygen Saturation 85.9 % (94-97); ABG PCO2 39 mmHg (35-45); ABG PH 7.43 (7.35-7.45); ABG TCO2 27 mmol/L (19-24)
[2023-10-14 20:53] LABS: ABG PO2 53 mmHg (83-108); Allen Test Performed? no
[2023-10-14] MEDS ORDERED: HEPARIN SODIUM 1,000 UN/ML (10ML VL) ONE (20:58)
[2023-10-14] MEDS ORDERED: TICAGRELOR 90 MG TAB ONE ×2 (21:02→21:05)
[2023-10-14] MEDS: TIROFIBAN BOLUS 12.5MG/250 ML BAG IV ONE ×2 (21:10→21:18)
[2023-10-14] MEDS: TICAGRELOR 90 MG TAB OG-TUBE ONE (21:12)
[2023-10-14] MEDS: TIROFIBAN 12.5MG-250ML NS 250 ML IV ONE (21:30)
[2023-10-14] MEDS: SODIUM BICARBONATE 150 MEQ in DEXTROSE 5% IN WATER 1,000 ML IV ONE (21:30)
[2023-10-14] MEDS ORDERED: HEPARIN SODIUM 1,000 UN/ML (10ML VL) IV PRN (21:54)
[2023-10-14] MEDS: HEPARIN SOD,PORK IN 0.45% NACL 25,000 UNIT in 0.45% NACL 1 250ML.BAG IV SCH (22:00)
[2023-10-14] MEDS ORDERED: ATROPINE SULFATE 0.1 MG/ML 10ML SYRINGE IV PRN (22:23)
[2023-10-14] MEDS ORDERED: ZOLPIDEM 5 MG TAB PO PRN (22:23)
[2023-10-14] MEDS ORDERED: NITROGLYCERIN SL TABS 0.4 MG TAB SUBLINGUAL PRN (22:23)
[2023-10-14] MEDS ORDERED: RX INFO: IV CONTRAST WAS GIVEN 1 EACH MISC MISCELLANE PRN (22:23)
--- NOTE | 2023-10-14 22:23 | P.PCN ---
Date of Procedure: 10/14/23 Operative Findings: CARDIAC CATHETERIZATION AND PERCUTANEOUS CORONARY INTERVENTION PERFORMING PHYSICIAN: Ezequiel Whittaker MD, [facility] PROCEDURE PERFORMED: 1. Selective right and left coronary angiogram 2. Successful stenting of left main coronary artery using 4.0 x 18 mm Xience TAYLER 3. Successful stenting of the first obtuse marginal branch of the left circumflex using 3.5 x 18 mm Xience TAYLER 4. Successful stenting of the proximal and mid right coronary artery using 4.0 x 38 and 3.5 x 8 mm Xience TAYLER 5. Successful placement of Impella CP in the left ventricle 6. Adjunctive use of intravascular imaging 7. Selective left common femoral artery angiogram 8. Ultrasound-guided access of the left common femoral artery INDICATION: Acute lateral ST segment elevation myocardial infarction COMPLICATION: None APPROACH: Left common femoral artery LEVEL OF SEDATION: Moderate with the sedation time off 160 minutes PROCEDURE DESCRIPTION: After obtaining informed consent the patient was brought to the cardiac Dog Handler. The left common femoral artery was cannulated using micropuncture technique under ultrasound guidance the micropuncture wire passed easily then I placed a 6 Malaysian 11 cm sheath at the left common femoral artery. Please note that the patient did not have a good right radial pulse and in the intensive care unit and arterial line from right radial approach was attempted and was unsuccessful and for that reason we decided to go from the left common femoral artery. Please also note that the left femoral head was fluoroscopy before we accessed the left common femoral artery. After the 6 Malaysian sheath was placed the sheath was flushed and secured. Selective right and left coronary angiogram performed using JR4 and JL 4 catheters. After that we decided to intervene on the left circumflex. Please see the full report during this dictation. SELECTIVE CORONARY ANGIOGRAM: The right coronary artery: Large-caliber vessel, calcified vessel, and a dominant vessel. The ostial RCA and proximal RCA has lesion up to about 80% involving the ostial RCA with a dampening in the waveform. The mid and distal RCA appears to have mild disease only. Left main: Large and short left main but appears to be angiographically normal. Bifurcates into left circumflex and left anterior descending artery The left circumflex: Large-caliber vessel and nondominant vessel. The left circumflex is occluded by the proximal portion with a large thrombus burden. The left anterior descending artery: The left anterior descending artery is a large-caliber vessel with only mild disease involving the mid portion. The LAD reaches the apex. PCI OF THE left circumflex: Anticoagulation was initiated using heparin with continuous ACT monitoring. Subsequently I did engage the left main using CLS 3.5 guiding catheter. Attempting wiring and crossing the acute total occlusion of the left circumflex coronary artery was initially done using run-through wire and that was unsuccessful and subsequently using a whisper wire and also that was u nsuccessful but finally I was able to advance and cross the lesion using Fielder XT wire. The wire was advanced to the left circumflex in the AV groove. Before that I was able to get the whisper wire into the OM1 but I could not advance a whisper wire to the AV groove of the left circumflex coronary artery. After that I did balloon angioplasty of the left circumflex using 1.5 mm balloon. After the balloon I was able to restore some flow in the left circumflex and first obtuse marginal branch of the left circumflex with what appeared to be thrombus burden and the hard lesion was noted. After that I did balloon angioplasty using 2 mm noncompliant balloon. Intravascular ultrasound catheter was attempted to advance to the left circumflex and I was able to get the catheter distal to the lesion in the left circumflex with manual pullback. That showed the diameter of the left circumflex around 3 mm with a calcified left circumflex coronary artery. At that point I decided to go ahead and move forward with a stenting of the left circumflex coronary artery. Attempting advancing 3.5 x 18 mm stent was and successful. At that point I attempted advancing the stent with adjunctive use of GuideLiner and in spite of that I was unable to get the stent to the left circumflex coronary artery. At that point I decided to predilated again this time using 3 mm noncompliant balloon. I did m ultiple balloon angioplasty of the left circumflex/OM using 3 mm noncompliant balloon. Subsequently and suddenly we lost the pressure on the patient. An angiogram was performed and showed no flow in the left main and in the whole left coronary system whatsoever. I suspected there is either dissection of the left main coronary artery or thrombosed left main coronary artery. At that point CPR was initiated and the patient blood pressure was supported using norepinephrine and vasopressin's. He was already on lidocaine IV and he was on amiodarone IV. While the patient was receiving CPR I was able quickly to wire the left main coronary artery and the wire was advanced to the distal left anterior descending artery. I did direct stenting of the left main to the proximal LAD using 4.0 x 18 mm stent which was subsequently postdilated using 5 mm balloon and that was performed very quickly. With the CPR and with vasopressors and stenting the left main we were able to restore the flow to the left coronary system including the LAD where there was no flow to the left circumflex coronary artery but the patient's continues to be hypotensive. At that point I decided to move forward using mechanical support. I did pull the wire from the left anterior descending artery and subsequently the guide from the left main coronary artery and then I upgraded my 11 cm 6 Malaysian sheath to 11 cm 14 Malaysian sheath using stiff 035 wire. That was performed quickly as well. Then I did cross the aortic valve using a 035 wire with a pigtail catheter and subsequently the 035 wire was exchanged into 018 wire. After that I did advance to the Impella CP to the LV over the 018 wire and subsequently it was turned on. Immediate improvement in the blood pressure was noted. The patient was hypoxic with oxygen saturation in the 80s and an ABG was performed quickly. We did increase the PEEP and then the patient oxygenation has improved. Also he was given 2 doses of Lasix each 1 at 20 mg IV. After that I did reengage the left main again using JL 4 guiding catheter. Subsequently I did wire the left anterior descending using a 014 wire and then I did attempt wiring the left circumflex through the stent struts in the left main and I was able to wire it using a whisper wire and the wire was advanced all the way to the first obtuse marginal branch of the left circumflex coronary artery. After that I did balloon angioplasty of the ostial left circumflex and proximal and mid OM using 2 mm balloon and subsequently 3.5 mm balloon. After that I was able to advance a 3.5 x 18 mm stent to the first obtuse marginal branch of the left circumflex through the stent struts in the left main coronary artery where the stent was positioned under fluoroscopy guidance and deployed under fluoroscopy guidance. The stented segment was angiographically looking good but the ostial left circumflex was a hazy and also the mid obtuse marginal branch was noted to have large thrombus burden. At that point I decided to do balloon angioplasty of the first obtuse marginal branch using 3 mm noncompliant balloon hoping to thrombus to resolve with balloon angioplasty. An angiogram after the balloon angioplasty was performed and showed PARISA-3 flow in the first obtuse marginal branch of the left circumflex. Finally I did balloon angioplasty of the left main coronary artery using 5 mm balloon. Final angiogram showed PARISA-3 flow in the left anterior descending artery and probably PARISA II flow in the left circumflex coronary artery. Because the patient was hypotensive requiring vasopressors I decided to fix the right coronary artery. I did engage the RCA using JR4 guiding catheter. I did wired using a whisper wire. Subsequently I did balloon angioplasty using 3 mm balloon before I deployed a 4.0 x 38 mm stent over the stent was positioned under fluoroscopy guidance and deployed under fluoroscopy guidance and the ostial of the RCA was flared using 4 mm balloon of the stent. An angiogram showed that the stented segment was looking good angiographically but distal to the stent there is what it seems to be an edge dissection which also I decided to cover with a stent. I deployed 3.5 x 8 mm stent where the stent was positioned again under fluoroscopy guidance and deployed under fluoroscopy guidance. Final angiogram showed excellent angiographic results. Please note that before we pulled the guide from the left main coronary artery I did intravascular ultrasound of the left main coronary artery and that showed the stent was well opposed and well-expanded. Because there was concern about thrombus in the left main coronary artery and left circumflex/OM I decided to place the patient on Aggrastat. Final angiogram was performed to the left common femoral artery and showed good flow. Also we did to check the Impella CP under fluoroscopy guidance where the sheath was secured. The patient will be admitted to the intensive care unit. POSTPROCEDURE MANAGEMENT: 1. Dual antiplatelet therapy using aspirin and Brilinta for 12 month 2. Aggressive cholesterol control 3. Follow-up with the patient
--- NOTE | 2023-10-14 22:33 | P.CRDCN ---
History of Present Illness Consult date: 10/14/23 Chief complaint: Cardiac arrest History of present illness: This is a 77-year-old gentleman with history of hypertension and dyslipidemia and seizure disorder and thyroid disease and prior history of smoking. The patient was admitted to the hospital initially with a change in mental status after he fell in the bathroom at home. The patient lives with his grandson. We consulted to see the patient because of cardiac arrest with ventricular fibrillation/ventricular tachycardia where the patient subsequently received CPR according to the nurse taking care of him for about 12 hours and then he was intubated and he was brought to the intensive care unit. The history was taken from the chart because the patient was already intubated when he was seen in the intensive care unit. He was found on the floor by his family for several hours. He was weak. He attempted to get up but he could not. EMS was called and the patient was brought to the emergency department by ambulance. He underwent further investigation including CT scan of the brain which showed no acute abnormalities and EKG showed sinus mechanism with nonspecific ST and T wave abnormalities. Hemoglobin was within normal limits. Electrolytes were within normal limits beside hyponatremia. The chest x-ray showed no acute abnormalities beside elevated right hemidiaphragm. He was diagnosed with acute hypoxic respiratory failure and also he had recent coronavirus infection. During his hospital stay he had a cardiac arrest with V-fib. He was converted to normal sinus mechanism after he received CPR and received amiodarone and lidocaine. I did review the EKG when I I was called to see the patient and that showed lateral ST segment elevation myocardial infarction. STEMI code was called. The patient was brought to the cardiac Treatment Counselor immediately and he unde rwent an emergent heart catheterization and that revealed severe disease involving the ostial and proximal right coronary artery with occluded left circumflex appeared to be an acute occlusion. The lesion in the left circumflex was extremely complex and was very hard to cross. During the procedure he had another episode of cardiac arrest with pulseless electrical activities and we lost the floor in the left coronary system. The patient ended having stenting in the left main to LAD and stenting of the obtuse marginal branch and stenting of the right coronary artery and Impella CP was placed to support the pressure. Please refer to the procedure note for further details. The examination showed distant heart sounds with regular rhythm and soft nontender abdomen and diminished breathing sounds bilaterally. 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 Severe disease involving the right coronary artery Cardiac arrest as described above Multiple risk factors including hypertension and dyslipidemia History of seizure Cardiogenic shock Plan Continue dual antiplatelet therapy and high intensity statin Try to wean the patient from norepinephrine and vasopressin's Ventilator management by the critical care team An echocardiogram in the morning Consider starting the patient on anti-ischemic medications once the pressure permit Follow-up with the patient Past Medical History Past Medical History: Hypertension, Seizure Disorder, Thyroid Disorder History of Any Multi-Drug Resistant Organisms: None Reported Past Surgical History: Hernia Repair Past Anesthesia/Blood Transfusion Reactions: No Reported Reaction Past Psychological History: No Psychological Hx Reported Smoking Status: Former smoker Past Alcohol Use History: None Reported Past Drug Use History: None Reported Medications and Allergies Home Medications Medication Instructions Recorded Confirmed Type Amitriptyline HCl [Elavil] 75 mg PO HS 09/28/23 09/28/23 History Baclofen [Lioresal] 10 mg PO HS 09/28/23 09/28/23 History Divalproex Sodium [Depakote] 1,000 mg PO HS 09/28/23 09/28/23 History Ergocalciferol [Vitamin D2 (1250 1,250 mcg PO Q14D 09/28/23 09/28/23 History Mcg = 70902 Iu)] Levothyroxine Sodium [Synthroid] 100 mcg PO DAILY 09/28/23 09/28/23 History Metoprolol Tartrate [Lopressor] 50 mg PO HS 09/28/23 09/28/23 History Metoprolol Tartrate [Lopressor] 100 mg PO DAILY 09/28/23 09/28/23 History Multivitamins, Thera [Multivitamin 1 tab PO DAILY 09/28/23 09/28/23 History (formulary)] Omeprazole 20 mg PO DAILY 09/28/23 09/28/23 History amLODIPine [Norvasc] 10 mg PO DAILY 09/28/23 09/28/23 History Albuterol Inhaler [Ventolin Hfa 2 puff INHALATION RT-QID each 10/14/23 Rx Inhaler] Furosemide [Lasix] 40 mg PO BID #60 tablet 10/14/23 Rx Tamsulosin [Flomax] 0.4 mg PO PC-BRKFST cap 10/14/23 Rx hydrALAZINE HCL [Apresoline] 25 mg PO TID tab 10/14/23 Rx Allergies Allergy/AdvReac Type Severity Reaction Status Date / Time Penicillins AdvReac Rash/Hives Verified 09/28/23 06:59 Physical Exam Vitals: Vital Signs Temp Pulse Pulse Resp BP BP Pulse Ox 10/14/23 18:30 125 H 33 H 124/70 94 L 10/14/23 18:15 131 H 24 113/71 92 L 10/14/23 18:00 23 119/74 92 L 10/14/23 17:45 154 H 24 114/77 92 L 10/14/23 17:42 10/14/23 17:40 10/14/23 17:31 22 10/14/23 12:30 71 16 10/14/23 12:00 97.9 F 75 16 129/76 94 L 10/14/23 08:00 97.8 F 71 16 134/83 91 L 10/14/23 03:24 97.6 F 89 16 133/87 90 L 10/14/23 01:40 70 20 10/14/23 00:10 20 87 L 10/14/23 00:00 70 20 115/68 84 L FiO2 10/14/23 18:30 10/14/23 18:15 10/14/23 18:00 10/14/23 17:45 10/14/23 17:42 100 10/14/23 17:40 100 10/14/23 17:31 10/14/23 12:30 10/14/23 12:00 10/14/23 08:00 10/14/23 03:24 10/14/23 01:40 10/14/23 00:10 10/14/23 00:00 Intake and Output 10/14/23 10/14/23 10/14/23 06:59 14:59 22:59 Intake Total 280 Output Total 846 544 5265 Balance -350 -800 -720 Intake: IV 280 Invasive Line 9 30 Output: Urine 192 975 2507 Other: Voiding Method Indwelling Catheter Indwelling Catheter Indwelling Catheter ABP, PAP, CO, CI - Last 8 Hours Arterial Blood Pressure 139/62 Arterial Blood Pressure 126/61 Arterial Blood Pressure 116/65 Results 10/14/23 18:30 10/14/23 18:30 Cardiac Enzymes 10/14/23 10/14/23 10/14/23 Range/Units 09:00 18:30 18:30 AST 39 46 (17-59) U/L Troponin I 0.790 H* (0.000-0.034) ng/mL CBC 10/14/23 10/14/23 Range/Units 09:00 18:30 WBC 12.0 H 31.0 H (3.8-10.6) k/uL RBC 4.01 L 4.01 L (4.30-5.90) m/uL Hgb 12.0 L 12.0 L (13.0-17.5) gm/dL Hct 36.9 L 36.7 L (39.0-53.0) % Plt Count 265 339 (150-450) k/uL Comprehensive Metabolic Panel 10/14/23 10/14/23 Range/Units 09:00 18:30 Sodium 127 L 128 L (137-145) mmol/L Potassium 3.7 3.3 L (3.5-5.1) mmol/L Chloride 91 L 88 L (98-107) mmol/L Carbon Dioxide 28 30 (22-30) mmol/L BUN 26 H 24 H (9-20) mg/dL Creatinine 0.89 1.00 (0.66-1.25) mg/dL Glucose 144 H 256 H (74-99) mg/dL Calcium 8.4 9.6 (8.4-10.2) mg/dL AST 39 46 (17-59) U/L ALT 50 H 46 (4-49) U/L Alkaline Phosphatase 71 84 (38-126) U/L Total Protein 6.1 L 6.1 L (6.3-8.2) g/dL Albumin 2.9 L 2.9 L (3.5-5.0) g/dL Current Medications Generic Name Dose Route Start Last Admin Trade Name Freq PRN Reason Stop Dose Admin Acetaminophen 650 mg 09/28/23 01:38 10/10/23 13:43 Acetaminophen Tab 325 Mg Tab PO 650 mg Q4HR PRN Administration Fever and/or Mild Pain Al Hydroxide/Mg Hydroxide 30 ml 10/14/23 22:23 Mag Hydrox/Al Hydrox/Simeth 30 Ml Cup PO Q4HR PRN Heartburn Albuterol Sulfate 2 puff 10/06/23 12:00 10/14/23 19:52 Albuterol Hfa Inhaler INHALATION Not Given RT-QID OH Amitriptyline HCl 75 mg 09/28/23 21:00 10/13/23 20:10 Amitriptyline Hcl 25 Mg Tab PO 75 mg HS OH Administration Amlodipine Besylate 10 mg 09/29/23 09:00 10/14/23 08:37 Amlodipine 10 Mg Tab PO 10 mg DAILY OH Administration Atorvastatin Calcium 80 mg 10/15/23 21:00 Atorvastatin 80 Mg Tab PO HS [facility] Atropine Sulfate 0.5 mg 10/14/23 22:23 Atropine Sulfate 0.1 Mg/Ml 10ml Syringe IV ONCE PRN Symptomatic Bradycardia Baclofen 10 mg 09/28/23 21:00 10/13/23 20:10 Baclofen 10 Mg Tab PO 10 mg HS [facility] Administration Budesonide/Formoterol Fumarate 2 puff 10/06/23 20:00 10/14/23 19:52 Symbicort 160-4.5 Mcg Inhaler INHALATION Not Given RT-BID [facility] Chlorhexidine Gluconate 15 ml 10/14/23 21:00 Chlorhexidine Gluconate 15 Ml Cup MUCOUS MEM BID [facility] Divalproex Sodium 1,000 mg 09/28/23 21:00 10/13/23 20:10 Divalproex 500 Mg Tablet.Dr PO 1,000 mg HS [facility] Administration Enoxaparin Sodium 40 mg 10/10/23 09:00 10/14/23 08:37 Enoxaparin 40 Mg/0.4 Ml Syringe SQ 40 mg Q24HR OH Administration Ergocalciferol 1,250 mcg 10/03/23 09:00 10/03/23 08:33 Ergocalciferol 1,250 Mcg (50,000 Iu) Capsule PO 1,250 mcg Q14D OH Administration Famotidine 20 mg 10/06/23 21:00 10/14/23 08:37 Famotidine 20 Mg Tab PO 20 mg BID OH Administration Furosemide 40 mg 10/14/23 16:00 10/14/23 15:30 Furosemide 40 Mg Tab PO 40 mg BID@0900,1600 OH Administration Heparin Sodium (Porcine) 0 unit 10/14/23 21:54 Heparin Sodium 1,000 Un/Ml (10ml Vl) IV PER PROTOCOL PRN Low PTT Protocol Hydralazine HCl 10 mg 10/03/23 11:06 10/03/23 17:33 Hydralazine Hcl 20 Mg/Ml 1 Ml Vial IVP 10 mg Q6HR PRN Administration Blood Pressure - High Hydralazine HCl 25 mg 10/03/23 16:00 10/14/23 15:27 Hydralazine Hcl 25 Mg Tab PO Not Given TID OH Amiodarone HCl 360 mg/ 200 mls @ 33.333 mls/hr 10/14/23 18:00 10/14/23 18:38 Dextrose/Water IV 1 mg/min .Q6H OH 33.333 mls/hr Administration 1 MG/MIN Norepinephrine Bitartrate 8 mg 258 mls @ 8.504 mls/hr 10/14/23 18:15 10/14/23 18:38 / Sodium Chloride IV 0.19 mcg/kg/min .Q24H OH 53.861 mls/hr Administration Protocol 0.03 MCG/KG/MIN Propofol 1,000 mg/ IV Solution 100 mls @ 26.37 mls/hr 10/14/23 18:15 10/14/23 19:00 IV 60 mcg/kg/min .Q3H48M OH 52.74 mls/hr Administration Protocol 30 MCG/KG/MIN Lidocaine HCl/Dextrose 2,000 250 mls @ 7.5 mls/hr 10/14/23 18:30 10/14/23 19:00 mg/ IV Solution IV 2 mg/min .Q24H OH 15 mls/hr Administration Protocol 1 MG/MIN Vasopressin 60 unit/ Sodium 153 mls @ 4.59 mls/hr 10/14/23 20:15 Chloride IV 10/15/23 20:14 .Q24H ONE Protocol 0.03 UNITS/MIN Sodium Bicarbonate 100 ml/ 1,100 mls @ 100 mls/hr 10/14/23 20:30 Dextrose/Water IV 10/15/23 07:29 .Q11H ONE Heparin Sodium/Sodium Chloride 250 mls @ 10.006 mls/hr 10/14/23 22:00 25,000 unit/ Sodium Chloride IV .Q24H OH Protocol 6.83 UNITS/KG/HR Sodium Chloride 1,000 ml/ IV 1,000 mls @ 75 mls/hr 10/14/23 22:30 Solution IV 10/15/23 04:31 .[id number] [facility] Levothyroxine Sodium 100 mcg 09/28/23 09:15 10/14/23 06:04 Levothyroxine 100 Mcg Tab PO 100 mcg DAILY@0630 OH Administration Loperamide HCl 2 mg 10/02/23 16:41 10/02/23 21:26 Loperamide 2 Mg Cap PO 2 mg QID PRN Administration Diarrhea Miscellaneous Information 1 each 10/02/23 12:48 Potassium Replacement Protocol 1 Each [facility] MISCELLANE DAILY PRN Per Protocol Protocol Miscellaneous Information 1 each 10/14/23 22:23 Rx Info: Iv Contrast Was Given 1 Each [facility] MISCELLANE 10/16/23 22:23 DAILY PRN Per Protocol Naloxone HCl 0.2 mg 09/28/23 01:38 Naloxone 0.4 Mg/Ml 1 Ml Vial IV Q2M PRN Opioid Reversal Nitroglycerin 0.4 mg 10/14/23 22:23 Nitroglycerin Sl Tabs 0.4 Mg Tab SUBLINGUAL Q5M PRN Chest Pain Nystatin 500,000 unit 10/10/23 13:00 10/14/23 15:30 Nystatin 100,000 Unit/Ml Susp 500,000 Unit/5 Ml Cup PO 500,000 unit QID OH Administration Protocol Nystatin 1 applic 10/10/23 21:00 10/14/23 08:54 Nystatin 100,000 Unit/Gm Powd 15 Gm TOPICAL Not Given BID [facility] Protocol Pantoprazole Sodium 40 mg 09/29/23 07:30 10/14/23 06:04 Pantoprazole 40 Mg Tablet PO 40 mg AC-BRKFST OH Administration Petrolatum 1 applic 10/01/23 13:59 Zinc Oxide Paste (Z-Guard) 1 Applic TOPICAL Q2HR PRN [facility] Protocol Tamsulosin HCl 0.4 mg 09/28/23 12:15 10/14/23 08:37 Tamsulosin 0.4 Mg Cap.Er.24h PO 0.4 mg PC-BRKFST OH Administration Ticagrelor 90 mg 10/15/23 09:00 Ticagrelor 90 Mg Tab PO BID [facility] Protocol Tirofiban/Sodium Chloride 73.25 ml 10/14/23 21:56 10/14/23 21:18 Tirofiban Bolus 12.5mg/250 Ml Bag 0.5 ml/kg (73.25 ml) 10/14/23 21:57 73.25 ml IV Administration ONCE ONE Zolpidem Tartrate 5 mg 10/14/23 22:23 Zolpidem 5 Mg Tab PO HS PRN Insomnia Intake and Output 10/14/23 10/14/23 10/14/23 06:59 14:59 22:59 Intake Total 280 Output Total 604 132 1553 Balance -350 -800 -720 Intake: IV 280 Invasive Line 9 30 Output: Urine 002 215 7728 Other: Voiding Method Indwelling Catheter Indwelling Catheter Indwelling Catheter 10/14/23 18:30 10/14/23 18:30
[2023-10-14 23:09] LABS: Basophils # (A) 0.1 k/uL (0-0.2); Basophils % (A) 0 %; Eosinophils % (A) 0 %; HCT 33.1 % (39.0-53.0); HGB 10.9 gm/dL (13.0-17.5); Lymphocytes % (A) 3 %; MCH 30.7 pg (25.0-35.0); MCV 93.1 fL (80.0-100.0); Mean Platelet Volume 10.4; Monocytes # (A) 1.7 k/uL (0-1.0); Monocytes % (A) 6 %; Neutrophils % (A) 90 %; Platelet Count 316 k/uL (150-450); RBC 3.56 m/uL (4.30-5.90); RDW 13.2 % (11.5-15.5); WBC 30.1 k/uL (3.8-10.6)
[2023-10-14] MEDS: SODIUM BICARB (1 MEQ/ML) 12.5 ML in DEXTROSE 5% IN WATER 500 ML IV SCH (23:14)
[2023-10-14] MEDS: SODIUM CHLORIDE 0.9% 1,000 ML in EMPTY BAG 1 BAG IV SCH (23:16)
[2023-10-14 23:22] LABS: Ionized Calcium 4.5 mg/dL (4.5-5.3)
[2023-10-14 23:30] LABS: ALT 52 U/L (4-49); African American GFR (CKD) 82 (>60 ml/min/1.73 sqM); Albumin 2.4 g/dL (3.5-5.0); Anion Gap 9 mmol/L; Blood Urea Nitrogen 25 mg/dL (9-20); Calcium 7.9 mg/dL (8.4-10.2); Carbon Dioxide 31 mmol/L (22-30); Chloride 88 mmol/L (98-107); Glucose 354 mg/dL (74-99); Non-African American GFR(CKD) 71 (>60 ml/min/1.73 sqM); Sodium 128 mmol/L (137-145); Total Protein 5.4 g/dL (6.3-8.2)
[2023-10-14 23:33] LABS: AST 302 U/L (17-59); Alkaline Phosphatase 62 U/L (38-126); Magnesium 2.3 mg/dL (1.6-2.3); Potassium 3.7 mmol/L (3.5-5.1)
[2023-10-15] MEDS ORDERED: MAG HYDROX/AL HYDROX/SIMETH 30 ML CUP PO PRN
[2023-10-15] MEDS: TIROFIBAN 12.5MG-250ML NS 250 ML IV SCH (00:43)
[2023-10-15] MEDS: CHLORHEXIDINE GLUCONATE 15 ML CUP MUCOUS MEM SCH (00:46)
[2023-10-15 03:24] LABS: Basophils # (A) 0.1 k/uL (0-0.2); Basophils % (A) 1 %; Eosinophils % (A) 0 %; HCT 31.9 % (39.0-53.0); HGB 10.7 gm/dL (13.0-17.5); Lymphocytes # (A) 2.2 k/uL (1.0-4.8); Lymphocytes % (A) 9 %; MCH 30.9 pg (25.0-35.0); MCHC 33.7 g/dL (31.0-37.0); MCV 91.7 fL (80.0-100.0); Mean Platelet Volume 10.6; Monocytes # (A) 1.9 k/uL (0-1.0); Monocytes % (A) 8 %; Neutrophils # (A) 19.9 k/uL (1.3-7.7); Neutrophils % (A) 81 %; Platelet Count 310 k/uL (150-450); RBC 3.47 m/uL (4.30-5.90); RDW 13.5 % (11.5-15.5); WBC 24.6 k/uL (3.8-10.6)
[2023-10-15 03:29] LABS: INR 1.3 (<1.2); Partial Thromboplastin Time 28.9 sec (22.0-30.0); Prothrombin Time 13.5 sec (10.0-12.5)
[2023-10-15 03:40] LABS: African American GFR (CKD) 68 (>60 ml/min/1.73 sqM); Anion Gap 2 mmol/L; Blood Urea Nitrogen 27 mg/dL (9-20); Calcium 7.6 mg/dL (8.4-10.2); Carbon Dioxide 37 mmol/L (22-30); Chloride 89 mmol/L (98-107); Glucose 307 mg/dL (74-99); Magnesium 2.2 mg/dL (1.6-2.3); Non-African American GFR(CKD) 59 (>60 ml/min/1.73 sqM); Potassium 3.8 mmol/L (3.5-5.1); Sodium 128 mmol/L (137-145)
[2023-10-15] MEDS: HEPARIN SODIUM 1,000 UN/ML (10ML VL) IV PRN (03:53)
[2023-10-15 04:13] LABS: LDH 1478 U/L (120-246)
[2023-10-15 05:58] LABS: ABG Base Excess 12.4 mmol/L; ABG HCO3 36 mmol/L (21-25); ABG Oxygen Saturation 98.6 % (94-97); ABG PCO2 53 mmHg (35-45); ABG PH 7.45 (7.35-7.45); ABG PO2 213 mmHg (83-108); ABG TCO2 38 mmol/L (19-24)
[2023-10-15 06:14] LABS: Allen Test Performed? no
[2023-10-15 06:17] LABS: Glucose,Whole Blood 315 mg/dL (70-110)
--- NOTE | 2023-10-15 06:34 | XR ---
EXAMINATION TYPE: XR chest 1V portable DATE OF EXAM: 10/15/2023 CLINICAL HISTORY: Difficulty breathing progress study. LVAD placement. TECHNIQUE: Single AP portable supine view of the chest is obtained. COMPARISON: Chest x-ray from one day earlier and older studies. FINDINGS: Stable endotracheal and orogastric tubes though oral gastric tube tip not included in fiel d of view. Persistent elevated right hemidiaphragm. Persistent diffuse right lung and central left lung opacitie s. Current exam suboptimal as does not include the entire left lung base. Cardiac silhouette size sta ble within normal limits. Age-indeterminate fractures of the left lateral third through fifth ribs is better seen on current study versus prior. Correlate clinically. IMPRESSION: Suboptimal study. Persistent elevated right hemidiaphragm with diffuse right lung edema a nd/or infiltrates and central left lung edema and/or acute infiltrates. No significant change from on e day earlier.
[2023-10-15] MEDS: POTASSIUM CHLORIDE 10 MEQ in WATER FOR INJECTION 1 100ML.BAG IVPB SCH (06:46)
--- NOTE | 2023-10-15 07:52 | P.PN ---
Subjective Progress Note Date: 10/15/23 This is a 77-year-old male patient with a history of hypertension, seizure disorder, thyroid disorder, former smoker. On September 27, 2023 the patient had gotten up to go the bathroom and slumped onto the ground. He had been reportedly laying on the ground for several hours by family were attempting to get in helping him get up but he was unable to support himself. He also had trouble with urinary incontinence. EMS was called and he was brought here for evaluation. CT scan of the brain revealed no acute intracranial hemorrhage, midline shift or mass effect. EKG revealed sinus rhythm with no significant ST or T wave abnormalities. White count 14.9. Hemoglobin 12.9. Platelets 146. Sodium 126. Potassium 3.9. Bicarb 26. BUN 15. Creatinine 0.68. Glucose 152. AST 148. ALT 43. Creatinine kinase 2283. He did test positive for COVID-19 infection. His initial sodium level was 118. BUN of 24 and a creatinine of 1.26. He had been seen by nephrology, urology and infectious disease. A chest x-ray was done today September 30, 2023 that revealed an elevated right hemidiaphragm and we are consulted for the same. He was sent for a sniff test however the patient was unable to perform the appropriate maneuvers due to overall condition. He is seen on consultation on the selective care unit. He is currently resting in bed. Difficult to arouse but arousable. He is on a nonrebreather mask with O2 saturation of 90%. Currently afebrile. Hemodynamically stable. He has been initiated on Decadron. Antibiotics in the form of cefepime. Saline at 50 MLS per hour. Patient was evaluated today on 10/01/2023, more awake today, more responsive, seems to be more alert, and remains on a nonrebreather mask which I have recommended to transition to high flow nasal cannula. Patient did transition to 10 L high flow nasal cannula and O2 saturation was ranging between 92 up to 96% definitely better today compared to the last couple of days. Still planning to repeat his sniff test to evaluate for right hemidiaphragm paralysis. Procalcitonin level came back elevated at 0.43, patient remains on antibiotics for presumptive right lower lobe pneumonia. WBC count today 13.9 hemoglobin 13.0.Basic metabolic profile is relatively normal. Reevaluated today on 10/02/2023, patient is on 10 L high flow nasal cannula, doing better, breathing easier, O2 saturation is in the low 90s, patient continues to have diminished breath sounds at the right base, and I believe the patient has right hemidiaphragm paralysis with right lower lobe atelectasis, possible underlying pneumonia, but I feel clinically this is not the picture. At any rate the patient is supposed to have a sniff test tomorrow, may even have to consider a CT of the chest to evaluate the right lower lobe further. Based on the sniff test, further recommendations will follow. In the meantime patient is gradually improving, feeling better, breathing easier and definitely his neurological status is significantly improved now compared to how he was few days ago WBC count is 10.2 hemoglobin is 12.3, sodium is up to 130, potassium 3.1 renal profile is normal procalcitonin level on this patient was 0.43, hence he was empirically placed on antibiotics for presumptive right lower lobe pneumonia Progress note dated October 03, 2023. The patient is seen today in room 362. He continues on a nonrebreather mask. Previously, he was on 15 L high flow oxygen. Because of saturations in the high 80s, the nurse switched him to a nonrebreather mask. Currently his saturations are in the low 90s. The patient continues on Decadron, and cefepime. He is getting saline at 50 cc an hour. His procalcitonin level is 0.43. Laboratory data includes a white count 11.3, hemoglobin 13, hematocrit 39.6, and a platelet count of 196,000. Sodium 132, potassium 3.3, chloride 97, CO2 30, BUN 15, creatinine 0.51. The patient's albumin is 2.8. AST is 101, and ALT is 53. Chest x-ray shows some basilar atelectasis or infiltrate, with an elevated right diaphragm, and possible effusion. Progress note dated October 04, 2023. 77-year-old male, seen today in room 362. The patient was initially on a nonrebreather, but saturations were only in the mid 80s. The patient was converted to Airvo, with settings of 60 L/min, with an FiO2 of 95%. His saturations then increased to 88 to 90%. The patient is not receiving any IV fluids. No new labs today. Labs from October 03 have been reviewed. Microbiologic sampling, is negative or pending. Chest x-ray reveals borderline cardiomegaly, with ongoing asymmetric elevation of the right hemidiaphragm. There is increasing patchy bibasilar atelectasis/infiltrate. Progress note dated October 05, 2023. 77-year-old male seen today in room 362. Currently, the patient is on Airvo, with settings of 60 L/min and an FiO2 of 90%. The patient is also wearing a nonrebreather mask, over the Airvo nasal cannula. The patient continues on Decadron and cefepime. We have asked for chest x-ray tomorrow. Clinically, the patient looks reasonably stable, and does not appear to be short of breath. I have asked the nurse, to call respiratory, to adjust his Airvo nasal cannula, and a nonrebreather mask. No new labs today. Progress note dated October 06, 2023. 77-year-old male, seen today in room 256. The patient's respiratory status declined through the night, and the patient was transferred down to the intensive care unit. The patient had blood gases, showing a pO2 of 126, pCO2 of 21, and a pH of 7.70. This blood gas is consistent with a mixed respiratory and metabolic alkalosis. The patient did test positive initially for coronavirus. He is currently on Airvo, with settings of 60 L/min and an FiO2 of 90%. In addition, he is getting a nonrebreather mask. The patient is not receiving any IV fluids. Saturations are in the low to mid 90s. The patient continues on cefepime. Labs include a white count 15, hemoglobin 13.4, hematocrit 39.6, and a platelet count of 181,000. Sodium 133, potassium 3.2, chlorides 96, CO2 29, BUN 28, creatinine 0.81. Glucose is 110. Calcium is 8.4. Chest x-ray shows some patchy mid and lower lung opacities, either the same from the previous x- ray, or mildly improved. There is also elevation of the right diaphragm. Progress note dated October 07, 2023. 77-year-old male seen today in room 256. The patient is currently on Airvo, at 60 L/min with an FiO2 of 90%. Saturations are between 92 and 93%. Occasionall y, he has a nonrebreather mask, over the Airvo nasal cannula. He is not receiving any IV fluids. He had an uneventful night according to the nurses. His white count is 15.7, hemoglobin 12.4, hematocrit 37.9, and platelet count is normal. Sodium 134, potassium 3.8, chlorides 98, CO2 29, BUN 32, creatinine 0.8. Glucose 141. Calcium 8.4. Chest x-ray is unchanged and shows similar patchy infiltrates, in the mid and lower lung zones, with the right diaphragm elevation. Progress note dated October 08, 2023. 77-year-old male seen today in room 256. The patient is currently on Airvo, at 60 L/min, with an FiO2 of 80%. Yesterday, he was on 90%. He is not receiving any IV fluids. We can discontinue isolation. In addition, he has been on cefepime for some time, so that we will be discontinued as well. Current labs include a white count of 14.3, hemoglobin 11.8, hematocrit 36.6, and a normal platelet count of 153,000. Sodium 131, potassium 4, chloride 96, CO2 31, BUN 37, creatinine 0.71. Glucose is 137. Calcium 8.5. Magnesium 2.0. Yesterday's chest x-ray was unchanged. Progress note dated October 09, 2023. 77-year-old male, again seen in room 256. The patient was admitted with a diagnosis of coronavirus infection, and probable coronavirus associated pneumonia. The patient is currently on Airvo, with settings of 60 L/min and an FiO2 of 85%. The patient is not receiving any IV fluids. His chest x-ray today, looks a bit better. Clinically, he is about the same. Current labs include a white count of 17.1, hemoglobin 12.7, hematocrit 37.7, and a normal platelet count. Sodium 130, potassium 4.2, chlorides 92, CO2 31, BUN 37, creatinine 0.8. The patient's glucose was 118. Calcium 8.7. On today's evaluation of 10/10/2023, the patient is being seen for a follow-up in the intensive care unit. The patient remains on high flow oxygen and the patient remains on Airvo 45 L with an FiO2 of 60%. Calm and comfortable. The patient has completed course of IV cefepime. The patient also has completed a course of Decadron. Further is being gradually weaned off. No significant cough or sputum production. No chest tightness. No wheezing. He is calm and comfortable. The white cell count of 16.5 with a hemoglobin 12.5 and a platelet count of 196. BUN is at 38 with a creatinine of 0.9 and sodium levels at 130. Hemodynamically stable. No other specific complaints otherwise for now. Chest x-ray shows significant elevation of the right hemidiaphragm along with patchy infiltrative changes consistent with COVID-19 related pneumonia. The patient remains on Lasix 40 mg IV every 12 hours and net fluid balance is -1.3 L over the past 24 hours. Renal function remained stable. On today's evaluation of 10/11/2023, the patient is being seen for a follow-up. The patient is oxygenation has improved significantly and the patient was taken off the Airvo this morning and the patient was transitioned to 5 L of oxygen by nasal cannula. He is using incentive spirometer. He remains on IV Lasix. Fluid balance has been -1.3 L over the past 24 hours. BUN is at 40 with a creatinine of 0.8 and a sodium levels of 130. The white cell count is still elevated at 18.8 with a hemoglobin 15.5. Awake and alert and communicating. Completed Decadron. Completed the course of IV antibiotics with IV cefepime. On today's evaluation of 10/12/2023, I am seeing the patient for a follow-up. Overall condition remained stable as the patient got transferred out of the intensive care unit. The patient is currently on 5 L of O2 nasal cannula. Using the incentive spirometer. No respiratory difficulties. No aspiration. No antibiotics. No steroids. He is weak and he would benefit from. No nausea. No emesis. No chest pain. His CODE STATUS was again addressed by the primary care team and the patient is still in full CODE STATUS. WBC count is at 18.4 wi th a hemoglobin 12.1 and a platelet count of 232. BUN is at 36 with a creatinine of 0.9. Sodium is at 130. On 10/13/2023, the patient is being seen for a follow-up. The patient is stable on 5 L of oxygen by nasal cannula. No new complaints. No interval worsening shortness of breath. No significant cough or sputum production. No aspiration. Remains weak. Would benefit from rehabilitation and we are contemplating to discharge patient to an ECF facility. Blood work from today shows a sodium level of 130, potassium is at 3.2, bicarb is at 33 with a BUN of 27 with a creatinine of 0.8. He is using incentive spirometer. No altered mentation. Quite weak, has difficulty with mobility and the patient has walker at the bedside and physical therapy has been involved in his care. 10/14/2023, the patient is calm and comfortable. No significant complaints and the patient is resting comfortably in bed. Tolerating diet. Remains on 5 L of oxygen by nasal cannula. No other significant events overnight. White cell count of 12, hemoglobin is at 12, platelet count is at 265 with a BUN of 26 and a creatinine of 0.8. Generalized weakness and debility and the patient is looking for rehabilitation. 10/15/2023, patient is critically ill intubated on mechanical ventilator and using Impella for hemodynamic support. Events from yesterday was noted. Later in the afternoon, the patient went into cardiac arrhythmias and the patient developed torsades and sustained V. tach and ultimately V-fib. CPR was initiated based on the ACLS protocol. The patient was also given CPR and he was defibrillated twice received to 30 rounds of epinephrine, atropine and amiodarone. He was brought into the intensive care and intubated on the mechanical ventilator. Initial downtime was around 7 to 10 minutes. There was return of spontaneous circulation. EKG showed acute ST segment elevation myocardial infarction. Performance Instructor was activated and the patient was taken immediately for cardiac catheteriz ation under the care of Dr. Carreon. The patient had a lengthy and complicated cardiac revascularization. Initially, while undergoing angioplasty and stenting of the circumflex, the patient had occluded his left main and subsequently went into another cardiac arrest requiring CPR. The Impella was inserted. The left main was successfully stented with a drug-eluting stent. Subsequently, the inte rvention was completed and the patient required multiple stenting involving the circumflex/first obtuse marginal branch, left main and proximal and mid mid right coronary artery disease. As mentioned, Impella was also introduced during the process and currently the patient is receiving PA documentation with a output of 3.4 L/min. His augmented BP is as a mean of 77. He is unresponsive. He is currently on propofol running at 40 mcg/kg/min. He remains on amiodarone drip which is running at 1 mg/min. He remains on IV heparin. He was also started on aspirin and Aggrastat. The patient is intubated and on mechanical ventilator. Currently is on assist-control mode with rate of 26, tidal volume is 450 and FiO2 is at 100% with a PEEP of 15. Peak airway pressures around 30. Chest x-ray shows stable right midlung pulmonary infiltrates which was present on prior to the previous chest x-rays and this is attributed to his previous COVID-19 related pneumonia. He continues to have elevation of the right hemidiaphragm. Orotracheal tube is in a good location. The patient also has a OG tube in place. He currently has a triple-lumen catheter and arterial line in his right femoral vein. Impella has been introduced through the left femoral artery. IV fluids are in the form of bicarb infusion at rate of 100 cc an hour. His antiarrhythmics include a combination of amiodarone at 1 mg/min and lidocaine at 2 mg/min. His blood work from today shows a WBC count of 24.6 with a hemoglobin of 10.7 and a platelet count of 310. Sodium is at 128, potassium is at 3.8, BUN is at 29 with a creatinine of 1.4. Urine output in the order of 30 cc an hour. Neurologically, unresponsive, pupils are round 2 to 3 mm in size. No nystagmus. Nevertheless no significant cough or gag. No preferential gaze. Motor functions cannot be accurately assessed at this point in time as the patient is postcardiac arrest and he is also sedated. He is afebrile. Objective - Vital Signs Vital signs: Vital Signs Temp 99.8 F H 10/15/23 04:00 Pulse 88 10/15/23 07:00 Resp 26 H 10/15/23 07:00 BP 89/67 10/15/23 07:00 Pulse Ox 99 10/15/23 07:00 FiO2 100 10/15/23 04:15 Intake & Output 10/14/23 10/15/23 10/15/23 18:59 06:59 18:59 Intake Total 280 2861.429 32.222 Output Total 800 1450 Balance -520 1411.429 32.222 Weight 106.7 kg Intake: IV 280 1656 A-line 54 Dextrose 5% in Water 1, 900 000 ml @ 100 mls/hr IV . Q11H ONE with Sodium Bicarb (1 Meq/ml) 100 ml Rx#:[id number] Invasive Line 9 30 Sodium Bicarb (1 Meq/ml) 27 12.5 ml In Dextrose 5% in Water 500 ml @ Per Protocol IV DIRECTED [place] Rx#:[id number] Sodium Chloride 0.9% 1, 675 000 ml In Empty Bag 1 bag @ 75 mls/hr IV .[id number] [place] Rx#:[id number] Intake, IV Titration 1175.429 32.222 Amount Amiodarone 360 mg In 357.221 Dextrose 5% in Water 200 ml @ 1 MG/MIN 33.333 mls/ hr IV .Q6H [place] Rx#: [id number] Heparin Sod,Pork in 0.45% 59.035 NaCl 25,000 unit In 0.45 % NaCl 1 250ml.bag @ 6.83 UNITS/KG/HR 10.006 mls/ hr IV .Q24H [place] Rx#: [id number] Norepinephrine 8 mg In 292.017 32.222 Sodium Chloride 0.9% 250 ml @ 0.03 MCG/KG/MIN 8. 504 mls/hr IV .Q24H [place] Rx#:[id number] propofoL 1,000 mg In 467.156 Empty Bag 1 bag @ 30 MCG/ KG/MIN 26.37 mls/hr IV . Q3H48M [place] Rx#:[id number] Other 30 Output: Urine 800 1450 Other: Voiding Method Indwelling Catheter Indwelling Catheter ABP, PAP, CO, CI - Last Documented Arterial Blood Pressure 95/68 - Exam General appearance the patient is calm and comfortable, sedated on propofol, intubated on mechanical ventilator. Orogastric and orotracheal tube are both in place. Head exam was generally normal. There was no scleral icterus or corneal arcus. Mucous membranes were moist. Neck was supple and without jugular venous distension, thyromegaly, or carotid bruits. Carotids were easily palpable bilaterally. There was no adenopathy. Lung sounds are diminished breath sounds right lung base. Otherwise rest of the breath sounds are equal. No wheezes or rhonchi. Cardiac exam revealed the PMI to be normally situated and sized. The rhythm was regular and no extrasystoles were noted during several minutes of auscultation. The first and second heart sounds were normal and physiologic splitting of the second heart sound was noted. There were no murmurs, rubs, clicks, or gallops. Abdominal exam revealed normal bowel sounds. The abdomen was soft, non-tender, and without masses, organomegaly, or appreciable enlargement of the abdominal aorta. Extremities reveal diminished pulses in the upper extremity and Doppler signals are present in lower extremities bilaterally. He has femoral triple-lumen catheter and arterial line and Impella is in the left groin. No evidence of bleeding and exit sites are essentially clean. Neurologically the patient is sedated. Pupils are round 2 to 3 mm in size. No facial asymmetry. No cough or gag. Motor and sensory function cannot be assessed. No clonus. No Babinski at this point in time. - Labs CBC & Chem 7: 10/15/23 03:13 10/15/23 03:13 Labs: Abnormal Lab Results - Last 24 Hours (Table) 10/14/23 10/14/23 10/14/23 Range/Units 09:00 09:00 09:00 WBC 12.0 H (3.8-10.6) k/uL RBC 4.01 L (4.30-5.90) m/uL Hgb 12.0 L (13.0-17.5) gm/dL Hct 36.9 L (39.0-53.0) % Neutrophils # 7.8 H (1.3-7.7) k/uL Monocytes # 1.4 H (0-1.0) k/uL PT (10.0-12.5) sec INR (<1.2) Fibrinogen (200-500) mg/dL ABG pH (7.35-7.45) ABG pCO2 (35-45) mmHg ABG pO2 (83-108) mmHg ABG HCO3 (21-25) mmol/L ABG Total CO2 (19-24) mmol/L ABG O2 Saturation (94-97) % ABG Lactic Acid (0.5-1.6) mmol/L Sodium 127 L (137-145) mmol/L Potassium (3.5-5.1) mmol/L Chloride 91 L (98-107) mmol/L Carbon Dioxide (22-30) mmol/L BUN 26 H (9-20) mg/dL Glucose 144 H (74-99) mg/dL POC Glucose (mg/dL) (70-110) mg/dL Plasma Lactic Acid Guillaume (0.7-2.0) mmol/L Calcium (8.4-10.2) mg/dL Magnesium (1.6-2.3) mg/dL Total Bilirubin 1.6 H (0.2-1.3) mg/dL AST (17-59) U/L ALT 50 H (4-49) U/L Lactate Dehydrogenase (120-246) U/L Troponin I (0.000-0.034) ng/mL C-Reactive Protein 23.3 H (<1.0) mg/dL Total Protein 6.1 L (6.3-8.2) g/dL Albumin 2.9 L (3.5-5.0) g/dL 10/14/23 10/14/23 10/14/23 Range/Units 10:58 16:18 17:00 WBC (3.8-10.6) k/uL RBC (4.30-5.90) m/uL Hgb (13.0-17.5) gm/dL Hct (39.0-53.0) % Neutrophils # (1.3-7.7) k/uL Monocytes # (0-1.0) k/uL PT (10.0-12.5) sec INR (<1.2) Fibrinogen (200-500) mg/dL ABG pH (7.35-7.45) ABG pCO2 (35-45) mmHg ABG pO2 (83-108) mmHg ABG HCO3 (21-25) mmol/L ABG Total CO2 (19-24) mmol/L ABG O2 Saturation (94-97) % ABG Lactic Acid (0.5-1.6) mmol/L Sodium (137-145) mmol/L Potassium (3.5-5.1) mmol/L Chloride (98-107) mmol/L Carbon Dioxide (22-30) mmol/L BUN (9-20) mg/dL Glucose (74-99) mg/dL POC Glucose (mg/dL) 153 H 131 H 151 H (70-110) mg/dL Plasma Lactic Acid Guillaume (0.7-2.0) mmol/L Calcium (8.4-10.2) mg/dL Magnesium (1.6-2.3) mg/dL Total Bilirubin (0.2-1.3) mg/dL AST (17-59) U/L ALT (4-49) U/L Lactate Dehydrogenase (120-246) U/L Troponin I (0.000-0.034) ng/mL C-Reactive Protein (<1.0) mg/dL Total Protein (6.3-8.2) g/dL Albumin (3.5-5.0) g/dL 10/14/23 10/14/23 10/14/23 Range/Units 17:54 18:30 18:30 WBC 31.0 H (3.8-10.6) k/uL RBC 4.01 L (4.30-5.90) m/uL Hgb 12.0 L (13.0-17.5) gm/dL Hct 36.7 L (39.0-53.0) % Neutrophils # (1.3-7.7) k/uL Monocytes # (0-1.0) k/uL PT (10.0-12.5) sec INR (<1.2) Fibrinogen (200-500) mg/dL ABG pH 7.49 H (7.35-7.45) ABG pCO2 (35-45) mmHg ABG pO2 63 L (83-108) mmHg ABG HCO3 32 H (21-25) mmol/L ABG Total CO2 34 H (19-24) mmol/L ABG O2 Saturation 92.1 L (94-97) % ABG Lactic Acid (0.5-1.6) mmol/L Sodium 128 L (137-145) mmol/L Potassium 3.3 L (3.5-5.1) mmol/L Chloride 88 L (98-107) mmol/L Carbon Dioxide (22-30) mmol/L BUN 24 H (9-20) mg/dL Glucose 256 H (74-99) mg/dL POC Glucose (mg/dL) (70-110) mg/dL Plasma Lactic Acid Guillaume (0.7-2.0) mmol/L Calcium (8.4-10.2) mg/dL Magnesium 2.6 H (1.6-2.3) mg/dL Total Bilirubin 1.8 H (0.2-1.3) mg/dL AST (17-59) U/L ALT (4-49) U/L Lactate Dehydrogenase (120-246) U/L Troponin I (0.000-0.034) ng/mL C-Reactive Protein (<1.0) mg/dL Total Protein 6.1 L (6.3-8.2) g/dL Albumin 2.9 L (3.5-5.0) g/dL 10/14/23 10/14/23 10/14/23 Range/Units 18:30 20:45 22:45 WBC 30.1 H (3.8-10.6) k/uL RBC 3.56 L (4.30-5.90) m/uL Hgb 10.9 L (13.0-17.5) gm/dL Hct 33.1 L (39.0-53.0) % Neutrophils # 27.0 H (1.3-7.7) k/uL Monocytes # 1.7 H (0-1.0) k/uL PT (10.0-12.5) sec INR (<1.2) Fibrinogen (200-500) mg/dL ABG pH (7.35-7.45) ABG pCO2 (35-45) mmHg ABG pO2 53 L* (83-108) mmHg ABG HCO3 26 H (21-25) mmol/L ABG Total CO2 27 H (19-24) mmol/L ABG O2 Saturation 85.9 L (94-97) % ABG Lactic Acid (0.5-1.6) mmol/L Sodium (137-145) mmol/L Potassium (3.5-5.1) mmol/L Chloride (98-107) mmol/L Carbon Dioxide (22-30) mmol/L BUN (9-20) mg/dL Glucose (74-99) mg/dL POC Glucose (mg/dL) (70-110) mg/dL Plasma Lactic Acid Guillaume (0.7-2.0) mmol/L Calcium (8.4-10.2) mg/dL Magnesium (1.6-2.3) mg/dL Total Bilirubin (0.2-1.3) mg/dL AST (17-59) U/L ALT (4-49) U/L Lactate Dehydrogenase (120-246) U/L Troponin I 0.790 H* (0.000-0.034) ng/mL C-Reactive Protein (<1.0) mg/dL Total Protein (6.3-8.2) g/dL Albumin (3.5-5.0) g/dL 10/14/23 10/14/23 10/14/23 Range/Units 22:45 22:50 23:24 WBC (3.8-10.6) k/uL RBC (4.30-5.90) m/uL Hgb (13.0-17.5) gm/dL Hct (39.0-53.0) % Neutrophils # (1.3-7.7) k/uL Monocytes # (0-1.0) k/uL PT (10.0-12.5) sec INR (<1.2) Fibrinogen 530 H (200-500) mg/dL ABG pH (7.35-7.45) ABG pCO2 (35-45) mmHg ABG pO2 (83-108) mmHg ABG HCO3 (21-25) mmol/L ABG Total CO2 (19-24) mmol/L ABG O2 Saturation (94-97) % ABG Lactic Acid 6.8 H* (0.5-1.6) mmol/L Sodium 128 L (137-145) mmol/L Potassium (3.5-5.1) mmol/L Chloride 88 L (98-107) mmol/L Carbon Dioxide 31 H (22-30) mmol/L BUN 25 H (9-20) mg/dL Glucose 354 H (74-99) mg/dL POC Glucose (mg/dL) (70-110) mg/dL Plasma Lactic Acid Guillaume (0.7-2.0) mmol/L Calcium 7.9 L (8.4-10.2) mg/dL Magnesium (1.6-2.3) mg/dL Total Bilirubin 2.0 H (0.2-1.3) mg/dL AST 302 H (17-59) U/L ALT 52 H (4-49) U/L Lactate Dehydrogenase (120-246) U/L Troponin I (0.000-0.034) ng/mL C-Reactive Protein (<1.0) mg/dL Total Protein 5.4 L (6.3-8.2) g/dL Albumin 2.4 L (3.5-5.0) g/dL 10/15/23 10/15/23 10/15/23 Range/Units 02:20 03:13 03:13 WBC (3.8-10.6) k/uL RBC (4.30-5.90) m/uL Hgb (13.0-17.5) gm/dL Hct (39.0-53.0) % Neutrophils # (1.3-7.7) k/uL Monocytes # (0-1.0) k/uL PT 13.5 H (10.0-12.5) sec INR 1.3 H (<1.2) Fibrinogen (200-500) mg/dL ABG pH (7.35-7.45) ABG pCO2 (35-45) mmHg ABG pO2 (83-108) mmHg ABG HCO3 (21-25) mmol/L ABG Total CO2 (19-24) mmol/L ABG O2 Saturation (94-97) % ABG Lactic Acid (0.5-1.6) mmol/L Sodium 128 L (137-145) mmol/L Potassium (3.5-5.1) mmol/L Chloride 89 L (98-107) mmol/L Carbon Dioxide 37 H (22-30) mmol/L BUN 27 H (9-20) mg/dL Glucose 307 H (74-99) mg/dL POC Glucose (mg/dL) (70-110) mg/dL Plasma Lactic Acid Guillaume 4.7 H* (0.7-2.0) mmol/L Calcium 7.6 L (8.4-10.2) mg/dL Magnesium (1.6-2.3) mg/dL Total Bilirubin (0.2-1.3) mg/dL AST (17-59) U/L ALT (4-49) U/L Lactate Dehydrogenase 1478 H (120-246) U/L Troponin I (0.000-0.034) ng/mL C-Reactive Protein (<1.0) mg/dL Total Protein (6.3-8.2) g/dL Albumin (3.5-5.0) g/dL 10/15/23 10/15/23 10/15/23 Range/Units 03:13 05:57 06:15 WBC 24.6 H (3.8-10.6) k/uL RBC 3.47 L (4.30-5.90) m/uL Hgb 10.7 L (13.0-17.5) gm/dL Hct 31.9 L (39.0-53.0) % Neutrophils # 19.9 H (1.3-7.7) k/uL Monocytes # 1.9 H (0-1.0) k/uL PT (10.0-12.5) sec INR (<1.2) Fibrinogen (200-500) mg/dL ABG pH (7.35-7.45) ABG pCO2 53 H (35-45) mmHg ABG pO2 213 H (83-108) mmHg ABG HCO3 36 H (21-25) mmol/L ABG Total CO2 38 H (19-24) mmol/L ABG O2 Saturation 98.6 H (94-97) % ABG Lactic Acid (0.5-1.6) mmol/L Sodium (137-145) mmol/L Potassium (3.5-5.1) mmol/L Chloride (98-107) mmol/L Carbon Dioxide (22-30) mmol/L BUN (9-20) mg/dL Glucose (74-99) mg/dL POC Glucose (mg/dL) (70-110) mg/dL Plasma Lactic Acid Guillaume 4.0 H* (0.7-2.0) mmol/L Calcium (8.4-10.2) mg/dL Magnesium (1.6-2.3) mg/dL Total Bilirubin (0.2-1.3) mg/dL AST (17-59) U/L ALT (4-49) U/L Lactate Dehydrogenase (120-246) U/L Troponin I (0.000-0.034) ng/mL C-Reactive Protein (<1.0) mg/dL Total Protein (6.3-8.2) g/dL Albumin (3.5-5.0) g/dL 10/15/23 Range/Units 06:15 WBC (3.8-10.6) k/uL RBC (4.30-5.90) m/uL Hgb (13.0-17.5) gm/dL Hct (39.0-53.0) % Neutrophils # (1.3-7.7) k/uL Monocytes # (0-1.0) k/uL PT (10.0-12.5) sec INR (<1.2) Fibrinogen (200-500) mg/dL ABG pH (7.35-7.45) ABG pCO2 (35-45) mmHg ABG pO2 (83-108) mmHg ABG HCO3 (21-25) mmol/L ABG Total CO2 (19-24) mmol/L ABG O2 Saturation (94-97) % ABG Lactic Acid (0.5-1.6) mmol/L Sodium (137-145) mmol/L Potassium (3.5-5.1) mmol/L Chloride (98-107) mmol/L Carbon Dioxide (22-30) mmol/L BUN (9-20) mg/dL Glucose (74-99) mg/dL POC Glucose (mg/dL) 315 H (70-110) mg/dL Plasma Lactic Acid Guillaume (0.7-2.0) mmol/L Calcium (8.4-10.2) mg/dL Magnesium (1.6-2.3) mg/dL Total Bilirubin (0.2-1.3) mg/dL AST (17-59) U/L ALT (4-49) U/L Lactate Dehydrogenase (120-246) U/L Troponin I (0.000-0.034) ng/mL C-Reactive Protein (<1.0) mg/dL Total Protein (6.3-8.2) g/dL Albumin (3.5-5.0) g/dL Assessment and Plan Plan: acute cardiac arrest, with ventricular tachycardia and fibrillation. The patient had initial cardiac arrest on the medical unit, resuscitated, brought into the intensive care and intubated on the mechanical ventilator. There was return of spontaneous circulation. Subsequently patient was found to have an acute lateral ST segment elevation myocardial infarction and he underwent emergent cardiac catheterization the patient was found to have acute total occlusion of the left circumflex proximally and the patient also had severe disease involving the right coronary artery. The patient underwent a complicated coronary intervention requiring Impella for hemodynamic support, stenting of the left main, circumflex, proximal and mid RCA. A total of 5 stents were inserted. Currently, receiving Impella for hemodynamic support and norepinephrine is running at 0.1 mcg/kg/min Ventricular tachycardia/fibrillation post acute myocardial infarction, current rhythm is sinus and the patient maintained on a combination of lidocaine and amiodarone drips Hypotension/cardiogenic shock. Awaiting echocardiogram to evaluate LV function. The patient continues to have Impella and norepinephrine is running at 0.1 mcg/kg/min Acute hypoxic respiratory failure postcardiac arrest. The patient was recovering from the COVID-19 pneumonia and the patient had bilateral pulmonary infiltrates more so in the right midlung area and the findings on the chest x- ray from today are essentially stable. Currently intubated and mechanically ventilated. The blood gas from this morning was noted and the patient has adequate oxygenation. Chest x-ray findings are essentially stable COVID-19 related pneumonia from which the patient was recovering. Noted prior to his cardiac arrest, the patient was on 5 L of O2 nasal cannula Right diaphragm elevation, and possible paresis/paralysis. This is likely chronic right hemidiaphragmatic elevation History of seizure disorder. History of hypothyroidism. History of hypertension. Previous history of tobacco use. Plan Continue ventilator support and gradually wean down FiO2. I am going to switch him down to 60% for now and will work on FiO2 down to maintain saturation above 90%. Rest of the ventilator settings will be kept unchanged. Will patient will be kept on a PEEP of 15. Keep same tidal volume and respiratory rate for now. Discontinue the bicarb infusion Continue normal saline at rate of 7075 cc an hour Keep the Impella for hemodynamic support, P8 augmentation, mean arterial pressure is around 80 Continue pressors, discontinue the vasopressin and utilize only norepinephrine for blood pressure support Keep amiodarone drip Keep lidocaine drip If the patient n.p.o. for now Wean off the propofol and assess his mental status. The patient is currently on propofol at 40 mcg/kg/min. Discontinue the Symbicort. Discontinue the amlodipine and hydralazine. Discontinue the Flexeril. DC amitriptyline Check CPK and troponins Lactic acid is mildly elevated and this is an expected outcomes cardiac arrest Check liver function tests Discontinue the Lovenox Keep the patient on a combination of aspirin and Aggrastat Echocardiogram to evaluate LV function Hold diuretics for now and discontinue the Lasix Sliding scale insulin coverage Will give him more time to stabilize hemodynamically. Will assess mental status. Will need a CAT scan of the brain at the later stage Obviously there is a concern for anoxic/hypoxic encephalopathy due to his cardiac arrest and downtime. Noted the patient was being resuscitated during his cardiac arrest and possibility of an underlying hypoxic/anoxic encephalopathy cannot be completely ruled out. May need neurology consultation at the later stage Blood work was noted Monitor urine output and watch for any signs of acute kidney injury Condition is very critical, prognosis poor based on above-mentioned comorbidities. Will continue to follow. This evaluation was done more than 30 minutes. Case was discussed also with Dr. Carreon, time analysis clerk on the case. Time with Patient: Greater than 30
[2023-10-15] MEDS: ALBUTEROL NEBULIZED 2.5 MG/3 ML INHALATION SCH (07:55)
[2023-10-15] MEDS ORDERED: DEXTROSE 50% SYRINGE 50 ML IVP PRN ×2 (08:19)
[2023-10-15] MEDS: PANTOPRAZOLE 40 MG/10 ML VIAL IV SCH ×2 (09:56→20:44)
[2023-10-15] MEDS: TICAGRELOR 90 MG TAB PO SCH (09:56)
[2023-10-15 09:57] LABS: Albumin 2.2 g/dL (3.5-5.0)
--- NOTE | 2023-10-15 10:11 | P.PN ---
Subjective Progress Note Date: 10/15/23 Principal diagnosis: ACS This is a 77-year-old gentleman with history of hypertension and dyslipidemia and seizure disorder and thyroid disease and prior history of smoking. The patient was admitted to the hospital initially with a change in mental status after he fell in the bathroom at home. The patient lives with his grandson. We consulted to see the patient because of cardiac arrest with ventricular fibrillation/ventricular tachycardia where the patient subsequently received CPR according to the nurse taking care of him for about 12 hours and then he was intubated and he was brought to the intensive care unit. The history was taken from the chart because the patient was already intubated when he was seen in the intensive care unit. He was found on the floor by his family for several hours. He was weak. He attempted to get up but he could not. EMS was called and the patient was brought to the emergency department by ambulance. He underwent further investigation including CT scan of the brain which showed no acute abnormalities and EKG showed sinus mechanism with nonspecific ST and T wave abnormalities. Hemoglobin was within normal limits. Electrolytes were within normal limits beside hyponatremia. The chest x-ray showed no acute abnormalities beside elevated right hemidiaphragm. He was diagnosed with acute hypoxic respiratory failure and also he had recent coronavirus infection. During his hospital stay he had a cardiac arrest with V-fib. He was converted to normal sinus mechanism after he received CPR and received amiodarone and lidocaine. I did review the EKG when I I was called to see the patient and that showed lateral ST segment elevation myocardial infarction. STEMI code was called. The patient was brought to the cardiac Center Manager immediately and he underwent an emergent heart catheterization and that revealed severe disease involving the ostial and proximal right coronary artery with occluded left circumflex appeared to be an acute occlusion. The lesion in the left circumflex was extremely complex and was very hard to cross. During the procedure he had another episode of cardiac arrest with pulseless electrical activities and we lost the floor in the left coronary system. The patient ended having stenting in the left main to LAD and stenting of the obtuse marginal branch and stenting of the right coronary artery and Impella CP was placed to support the pressure. Please refer to the procedure note for further details. The examination showed distant heart sounds with regular rhythm and soft nontender abdomen and diminished breathing sounds bilaterally. No edema was noted in the lower extremities October 15, 2023 The patient was seen and evaluated this morning. He continues to be intubated on mechanical ventilation. The chest x-ray was reviewed. He is off vasopressors but continues to be on norepinephrine which is in process to weaned from norepinephrine. He continues to be on heparin and Aggrastat. He is on dual antiplatelet therapy along with a statin. Hemodynamically he is overall slightly better. He has been maintaining normal sinus mechanism. From the cardiovascular standpoint of view I will continue the current medical regimen and switch the patient to oral amiodarone and DC lidocaine and stop Aggrastat at 18 hours. Apparently he cannot be on any beta-yazmin or FLORIN inhibitor at this point giving the low blood pressure. The examination is remarkable for regular rhythm with a distant heart sounds and diminished breathing sounds bilaterally and he does have a good Doppler signal in the left foot. 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 Severe disease involving the right coronary artery Cardiac arrest as described above Multiple risk factors including hypertension and dyslipidemia History of seizure Cardiogenic shock Plan Follow-up on the echocardiogram DC amiodarone IV and start the patient on amiodarone orally DC lidocaine Avoid any beta-yazmin or FLORIN inhibitor at this point Continue dual antiplatelet therapy and statin Consider neurology consult Try to wean the patient from norepinephrine DC Aggrastat at 18 hours Continue heparin IV Continue monitor the kidney function and electrolyte Objective - Vital Signs Vital signs: Vital Signs Temp 100.9 F H 10/15/23 08:00 Pulse 90 10/15/23 09:00 Resp 28 H 10/15/23 09:00 BP 102/79 10/15/23 08:45 Pulse Ox 98 10/15/23 09:00 FiO2 60 10/15/23 07:50 Intake & Output 10/14/23 10/15/23 10/15/23 18:59 06:59 18:59 Intake Total 280 2861.429 655.502 Output Total 800 1450 65 Balance -520 1411.429 590.502 Weight 106.7 kg Intake: IV 280 1656 320 A-line 54 12 Dextrose 5% in Water 1, 900 000 ml @ 100 mls/hr IV . Q11H ONE with Sodium Bicarb (1 Meq/ml) 100 ml Rx#:[id number] Invasive Line 9 30 Potassium Chloride 10 meq 100 In Water For Injection 1 100ml.bag @ 100 mls/hr IVPB Q1H [place] Rx#: [id number] Sodium Bicarb (1 Meq/ml) 27 6 12.5 ml In Dextrose 5% in Water 500 ml @ Per Protocol IV DIRECTED [place] Rx#:[id number] Sodium Chloride 0.9% 1, 675 150 000 ml In Empty Bag 1 bag @ 75 mls/hr IV .[id number] [place] Rx#:[id number] Tirofiban 12.5MG-250Ml Ns 52 250 ml @ 0.15 MCG/KG/MIN 26.37 mls/hr IV .Q9H29M [place] Rx#:[id number] Intake, IV Titration 1175.429 335.502 Amount Amiodarone 360 mg In 357.221 Dextrose 5% in Water 200 ml @ 1 MG/MIN 33.333 mls/ hr IV .Q6H [place] Rx#: [id number] Heparin Sod,Pork in 0.45% 59.035 87.846 NaCl 25,000 unit In 0.45 % NaCl 1 250ml.bag @ 6.83 UNITS/KG/HR 10.006 mls/ hr IV .Q24H [place] Rx#: [id number] Norepinephrine 8 mg In 292.017 86.933 Sodium Chloride 0.9% 250 ml @ 0.03 MCG/KG/MIN 8. 504 mls/hr IV .Q24H [place] Rx#:[id number] Vasopressin 60 unit In 58.905 Sodium Chloride 0.9% 150 ml @ 0.03 UNITS/MIN 4.59 mls/hr IV .Q24H ONE Rx#: [id number] propofoL 1,000 mg In 467.156 101.818 Empty Bag 1 bag @ 30 MCG/ KG/MIN 26.37 mls/hr IV . Q3H48M [place] Rx#:[id number] Other 30 Output: Urine 800 1450 65 Other: Voiding Method Indwelling Catheter Indwelling Catheter ABP, PAP, CO, CI - Last Documented Arterial Blood Pressure 102/70 - Labs CBC & Chem 7: 10/15/23 03:13 10/15/23 03:13 Labs: Abnormal Lab Results - Last 24 Hours (Table) 10/14/23 10/14/23 10/14/23 Range/Units 09:00 09:00 09:00 WBC (3.8-10.6) k/uL RBC (4.30-5.90) m/uL Hgb (13.0-17.5) gm/dL Hct (39.0-53.0) % Neutrophils # 7.8 H (1.3-7.7) k/uL Monocytes # 1.4 H (0-1.0) k/uL PT (10.0-12.5) sec INR (<1.2) APTT (22.0-30.0) sec Fibrinogen (200-500) mg/dL ABG pH (7.35-7.45) ABG pCO2 (35-45) mmHg ABG pO2 (83-108) mmHg ABG HCO3 (21-25) mmol/L ABG Total CO2 (19-24) mmol/L ABG O2 Saturation (94-97) % ABG Lactic Acid (0.5-1.6) mmol/L Sodium 127 L (137-145) mmol/L Potassium (3.5-5.1) mmol/L Chloride 91 L (98-107) mmol/L Carbon Dioxide (22-30) mmol/L BUN 26 H (9-20) mg/dL Glucose 144 H (74-99) mg/dL POC Glucose (mg/dL) (70-110) mg/dL Plasma Lactic Acid Guillaume (0.7-2.0) mmol/L Calcium (8.4-10.2) mg/dL Magnesium (1.6-2.3) mg/dL Total Bilirubin 1.6 H (0.2-1.3) mg/dL AST (17-59) U/L ALT 50 H (4-49) U/L Lactate Dehydrogenase (120-246) U/L Troponin I (0.000-0.034) ng/mL C-Reactive Protein 23.3 H (<1.0) mg/dL Total Protein 6.1 L (6.3-8.2) g/dL Albumin 2.9 L (3.5-5.0) g/dL 10/14/23 10/14/23 10/14/23 Range/Units 10:58 16:18 17:00 WBC (3.8-10.6) k/uL RBC (4.30-5.90) m/uL Hgb (13.0-17.5) gm/dL Hct (39.0-53.0) % Neutrophils # (1.3-7.7) k/uL Monocytes # (0-1.0) k/uL PT (10.0-12.5) sec INR (<1.2) APTT (22.0-30.0) sec Fibrinogen (200-500) mg/dL ABG pH (7.35-7.45) ABG pCO2 (35-45) mmHg ABG pO2 (83-108) mmHg ABG HCO3 (21-25) mmol/L ABG Total CO2 (19-24) mmol/L ABG O2 Saturation (94-97) % ABG Lactic Acid (0.5-1.6) mmol/L Sodium (137-145) mmol/L Potassium (3.5-5.1) mmol/L Chloride (98-107) mmol/L Carbon Dioxide (22-30) mmol/L BUN (9-20) mg/dL Glucose (74-99) mg/dL POC Glucose (mg/dL) 153 H 131 H 151 H (70-110) mg/dL Plasma Lactic Acid Guillaume (0.7-2.0) mmol/L Calcium (8.4-10.2) mg/dL Magnesium (1.6-2.3) mg/dL Total Bilirubin (0.2-1.3) mg/dL AST (17-59) U/L ALT (4-49) U/L Lactate Dehydrogenase (120-246) U/L Troponin I (0.000-0.034) ng/mL C-Reactive Protein (<1.0) mg/dL Total Protein (6.3-8.2) g/dL Albumin (3.5-5.0) g/dL 10/14/23 10/14/23 10/14/23 Range/Units 17:54 18:30 18:30 WBC 31.0 H (3.8-10.6) k/uL RBC 4.01 L (4.30-5.90) m/uL Hgb 12.0 L (13.0-17.5) gm/dL Hct 36.7 L (39.0-53.0) % Neutrophils # (1.3-7.7) k/uL Monocytes # (0-1.0) k/uL PT (10.0-12.5) sec INR (<1.2) APTT (22.0-30.0) sec Fibrinogen (200-500) mg/dL ABG pH 7.49 H (7.35-7.45) ABG pCO2 (35-45) mmHg ABG pO2 63 L (83-108) mmHg ABG HCO3 32 H (21-25) mmol/L ABG Total CO2 34 H (19-24) mmol/L ABG O2 Saturation 92.1 L (94-97) % ABG Lactic Acid (0.5-1.6) mmol/L Sodium 128 L (137-145) mmol/L Potassium 3.3 L (3.5-5.1) mmol/L Chloride 88 L (98-107) mmol/L Carbon Dioxide (22-30) mmol/L BUN 24 H (9-20) mg/dL Glucose 256 H (74-99) mg/dL POC Glucose (mg/dL) (70-110) mg/dL Plasma Lactic Acid Guillaume (0.7-2.0) mmol/L Calcium (8.4-10.2) mg/dL Magnesium 2.6 H (1.6-2.3) mg/dL Total Bilirubin 1.8 H (0.2-1.3) mg/dL AST (17-59) U/L ALT (4-49) U/L Lactate Dehydrogenase (120-246) U/L Troponin I (0.000-0.034) ng/mL C-Reactive Protein (<1.0) mg/dL Total Protein 6.1 L (6.3-8.2) g/dL Albumin 2.9 L (3.5-5.0) g/dL 10/14/23 10/14/23 10/14/23 Range/Units 18:30 20:45 22:45 WBC 30.1 H (3.8-10.6) k/uL RBC 3.56 L (4.30-5.90) m/uL Hgb 10.9 L (13.0-17.5) gm/dL Hct 33.1 L (39.0-53.0) % Neutrophils # 27.0 H (1.3-7.7) k/uL Monocytes # 1.7 H (0-1.0) k/uL PT (10.0-12.5) sec INR (<1.2) APTT (22.0-30.0) sec Fibrinogen (200-500) mg/dL ABG pH (7.35-7.45) ABG pCO2 (35-45) mmHg ABG pO2 53 L* (83-108) mmHg ABG HCO3 26 H (21-25) mmol/L ABG Total CO2 27 H (19-24) mmol/L ABG O2 Saturation 85.9 L (94-97) % ABG Lactic Acid (0.5-1.6) mmol/L Sodium (137-145) mmol/L Potassium (3.5-5.1) mmol/L Chloride (98-107) mmol/L Carbon Dioxide (22-30) mmol/L BUN (9-20) mg/dL Glucose (74-99) mg/dL POC Glucose (mg/dL) (70-110) mg/dL Plasma Lactic Acid Guillaume (0.7-2.0) mmol/L Calcium (8.4-10.2) mg/dL Magnesium (1.6-2.3) mg/dL Total Bilirubin (0.2-1.3) mg/dL AST (17-59) U/L ALT (4-49) U/L Lactate Dehydrogenase (120-246) U/L Troponin I 0.790 H* (0.000-0.034) ng/mL C-Reactive Protein (<1.0) mg/dL Total Protein (6.3-8.2) g/dL Albumin (3.5-5.0) g/dL 10/14/23 10/14/23 10/14/23 Range/Units 22:45 22:50 23:24 WBC (3.8-10.6) k/uL RBC (4.30-5.90) m/uL Hgb (13.0-17.5) gm/dL Hct (39.0-53.0) % Neutrophils # (1.3-7.7) k/uL Monocytes # (0-1.0) k/uL PT (10.0-12.5) sec INR (<1.2) APTT (22.0-30.0) sec Fibrinogen 530 H (200-500) mg/dL ABG pH (7.35-7.45) ABG pCO2 (35-45) mmHg ABG pO2 (83-108) mmHg ABG HCO3 (21-25) mmol/L ABG Total CO2 (19-24) mmol/L ABG O2 Saturation (94-97) % ABG Lactic Acid 6.8 H* (0.5-1.6) mmol/L Sodium 128 L (137-145) mmol/L Potassium (3.5-5.1) mmol/L Chloride 88 L (98-107) mmol/L Carbon Dioxide 31 H (22-30) mmol/L BUN 25 H (9-20) mg/dL Glucose 354 H (74-99) mg/dL POC Glucose (mg/dL) (70-110) mg/dL Plasma Lactic Acid Guillaume (0.7-2.0) mmol/L Calcium 7.9 L (8.4-10.2) mg/dL Magnesium (1.6-2.3) mg/dL Total Bilirubin 2.0 H (0.2-1.3) mg/dL AST 302 H (17-59) U/L ALT 52 H (4-49) U/L Lactate Dehydrogenase (120-246) U/L Troponin I (0.000-0.034) ng/mL C-Reactive Protein (<1.0) mg/dL Total Protein 5.4 L (6.3-8.2) g/dL Albumin 2.4 L (3.5-5.0) g/dL 10/15/23 10/15/23 10/15/23 Range/Units 02:20 03:13 03:13 WBC (3.8-10.6) k/uL RBC (4.30-5.90) m/uL Hgb (13.0-17.5) gm/dL Hct (39.0-53.0) % Neutrophils # (1.3-7.7) k/uL Monocytes # (0-1.0) k/uL PT 13.5 H (10.0-12.5) sec INR 1.3 H (<1.2) APTT (22.0-30.0) sec Fibrinogen (200-500) mg/dL ABG pH (7.35-7.45) ABG pCO2 (35-45) mmHg ABG pO2 (83-108) mmHg ABG HCO3 (21-25) mmol/L ABG Total CO2 (19-24) mmol/L ABG O2 Saturation (94-97) % ABG Lactic Acid (0.5-1.6) mmol/L Sodium 128 L (137-145) mmol/L Potassium (3.5-5.1) mmol/L Chloride 89 L (98-107) mmol/L Carbon Dioxide 37 H (22-30) mmol/L BUN 27 H (9-20) mg/dL Glucose 307 H (74-99) mg/dL POC Glucose (mg/dL) (70-110) mg/dL Plasma Lactic Acid Guillaume 4.7 H* (0.7-2.0) mmol/L Calcium 7.6 L (8.4-10.2) mg/dL Magnesium (1.6-2.3) mg/dL Total Bilirubin (0.2-1.3) mg/dL AST (17-59) U/L ALT (4-49) U/L Lactate Dehydrogenase 1478 H (120-246) U/L Troponin I (0.000-0.034) ng/mL C-Reactive Protein (<1.0) mg/dL Total Protein (6.3-8.2) g/dL Albumin (3.5-5.0) g/dL 10/15/23 10/15/23 10/15/23 Range/Units 03:13 05:57 06:15 WBC 24.6 H (3.8-10.6) k/uL RBC 3.47 L (4.30-5.90) m/uL Hgb 10.7 L (13.0-17.5) gm/dL Hct 31.9 L (39.0-53.0) % Neutrophils # 19.9 H (1.3-7.7) k/uL Monocytes # 1.9 H (0-1.0) k/uL PT (10.0-12.5) sec INR (<1.2) APTT (22.0-30.0) sec Fibrinogen (200-500) mg/dL ABG pH (7.35-7.45) ABG pCO2 53 H (35-45) mmHg ABG pO2 213 H (83-108) mmHg ABG HCO3 36 H (21-25) mmol/L ABG Total CO2 38 H (19-24) mmol/L ABG O2 Saturation 98.6 H (94-97) % ABG Lactic Acid (0.5-1.6) mmol/L Sodium (137-145) mmol/L Potassium (3.5-5.1) mmol/L Chloride (98-107) mmol/L Carbon Dioxide (22-30) mmol/L BUN (9-20) mg/dL Glucose (74-99) mg/dL POC Glucose (mg/dL) (70-110) mg/dL Plasma Lactic Acid Guillaume 4.0 H* (0.7-2.0) mmol/L Calcium (8.4-10.2) mg/dL Magnesium (1.6-2.3) mg/dL Total Bilirubin (0.2-1.3) mg/dL AST (17-59) U/L ALT (4-49) U/L Lactate Dehydrogenase (120-246) U/L Troponin I (0.000-0.034) ng/mL C-Reactive Protein (<1.0) mg/dL Total Protein (6.3-8.2) g/dL Albumin (3.5-5.0) g/dL 10/15/23 10/15/23 10/15/23 Range/Units 06:15 06:15 08:55 WBC (3.8-10.6) k/uL RBC (4.30-5.90) m/uL Hgb (13.0-17.5) gm/dL Hct (39.0-53.0) % Neutrophils # (1.3-7.7) k/uL Monocytes # (0-1.0) k/uL PT (10.0-12.5) sec INR (<1.2) APTT 39.9 H (22.0-30.0) sec Fibrinogen (200-500) mg/dL ABG pH (7.35-7.45) ABG pCO2 (35-45) mmHg ABG pO2 (83-108) mmHg ABG HCO3 (21-25) mmol/L ABG Total CO2 (19-24) mmol/L ABG O2 Saturation (94-97) % ABG Lactic Acid (0.5-1.6) mmol/L Sodium (137-145) mmol/L Potassium (3.5-5.1) mmol/L Chloride (98-107) mmol/L Carbon Dioxide (22-30) mmol/L BUN (9-20) mg/dL Glucose (74-99) mg/dL POC Glucose (mg/dL) 315 H (70-110) mg/dL Plasma Lactic Acid Guillaume (0.7-2.0) mmol/L Calcium (8.4-10.2) mg/dL Magnesium (1.6-2.3) mg/dL Total Bilirubin (0.2-1.3) mg/dL AST (17-59) U/L ALT (4-49) U/L Lactate Dehydrogenase 1932 H (120-246) U/L Troponin I (0.000-0.034) ng/mL C-Reactive Protein (<1.0) mg/dL Total Protein (6.3-8.2) g/dL Albumin (3.5-5.0) g/dL
[2023-10-15] MEDS: AMIODARONE 200 MG TAB PO SCH (10:26)
--- NOTE | 2023-10-15 10:53 | P.PN ---
Subjective Patient is seen for follow-up for hyponatremia. Patient was transferred to ICU yesterday after CODE BLUE. He had runs of V. tach and was taken to [facility] for acute ST elevation IA. Patient had 5 coronary stents placed. He had another cardiac arrest in the [facility]. Currently maintained on amiodarone drip. Lidocaine drip discontinued Maintained on Aggrastat. Started on normal saline at 75 cc an hour. Lasix currently on hold Urine output at about 35 cc an hour. Patient remains on the vent. Objective - Vital Signs Vital signs: Vital Signs Temp 100.9 F H 10/15/23 08:00 Pulse 90 10/15/23 09:00 Resp 28 H 10/15/23 09:00 BP 102/79 10/15/23 08:45 Pulse Ox 98 10/15/23 09:00 FiO2 60 10/15/23 07:50 Intake & Output 10/14/23 10/15/23 10/15/23 18:59 06:59 18:59 Intake Total 280 2861.429 655.502 Output Total 800 1450 65 Balance -520 1411.429 590.502 Weight 106.7 kg Intake: IV 280 1656 320 A-line 54 12 Dextrose 5% in Water 1, 900 000 ml @ 100 mls/hr IV . Q11H ONE with Sodium Bicarb (1 Meq/ml) 100 ml Rx#:[id number] Invasive Line 9 30 Potassium Chloride 10 meq 100 In Water For Injection 1 100ml.bag @ 100 mls/hr IVPB Q1H [place] Rx#: [id number] Sodium Bicarb (1 Meq/ml) 27 6 12.5 ml In Dextrose 5% in Water 500 ml @ Per Protocol IV DIRECTED OH Rx#:[id number] Sodium Chloride 0.9% 1, 675 150 000 ml In Empty Bag 1 bag @ 75 mls/hr IV .[id number] [place] Rx#:[id number] Tirofiban 12.5MG-250Ml Ns 52 250 ml @ 0.15 MCG/KG/MIN 26.37 mls/hr IV .Q9H29M [place] Rx#:[id number] Intake, IV Titration 1175.429 335.502 Amount Amiodarone 360 mg In 357.221 Dextrose 5% in Water 200 ml @ 1 MG/MIN 33.333 mls/ hr IV .Q6H OH Rx#: [id number] Heparin Sod,Pork in 0.45% 59.035 87.846 NaCl 25,000 unit In 0.45 % NaCl 1 250ml.bag @ 6.83 UNITS/KG/HR 10.006 mls/ hr IV .Q24H [place] Rx#: [id number] Norepinephrine 8 mg In 292.017 86.933 Sodium Chloride 0.9% 250 ml @ 0.03 MCG/KG/MIN 8. 504 mls/hr IV .Q24H [place] Rx#:[id number] Vasopressin 60 unit In 58.905 Sodium Chloride 0.9% 150 ml @ 0.03 UNITS/MIN 4.59 mls/hr IV .Q24H ONE Rx#: [id number] propofoL 1,000 mg In 467.156 101.818 Empty Bag 1 bag @ 30 MCG/ KG/MIN 26.37 mls/hr IV . 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 - Labs CBC & Chem 7: 10/15/23 03:13 10/15/23 03:13 Labs: Abnormal Lab Results - Last 24 Hours (Table) 10/14/23 10/14/23 10/14/23 Range/Units 09:00 10:58 16:18 WBC (3.8-10.6) k/uL RBC (4.30-5.90) m/uL Hgb (13.0-17.5) gm/dL Hct (39.0-53.0) % Neutrophils # 7.8 H (1.3-7.7) k/uL Monocytes # 1.4 H (0-1.0) k/uL PT (10.0-12.5) sec INR (<1.2) APTT (22.0-30.0) sec Fibrinogen (200-500) mg/dL ABG pH (7.35-7.45) ABG pCO2 (35-45) mmHg ABG pO2 (83-108) mmHg ABG HCO3 (21-25) mmol/L ABG Total CO2 (19-24) mmol/L ABG O2 Saturation (94-97) % ABG Lactic Acid (0.5-1.6) mmol/L Sodium (137-145) mmol/L Potassium (3.5-5.1) mmol/L Chloride (98-107) mmol/L Carbon Dioxide (22-30) mmol/L BUN (9-20) mg/dL Glucose (74-99) mg/dL POC Glucose (mg/dL) 153 H 131 H (70-110) mg/dL Plasma Lactic Acid Guillaume (0.7-2.0) mmol/L Calcium (8.4-10.2) mg/dL Magnesium (1.6-2.3) mg/dL Total Bilirubin (0.2-1.3) mg/dL AST (17-59) U/L ALT (4-49) U/L Lactate Dehydrogenase (120-246) U/L Creatine Kinase (55-170) U/L Troponin I (0.000-0.034) ng/mL Total Protein (6.3-8.2) g/dL Albumin (3.5-5.0) g/dL 10/14/23 10/14/23 10/14/23 Range/Units 17:00 17:54 18:30 WBC 31.0 H (3.8-10.6) k/uL RBC 4.01 L (4.30-5.90) m/uL Hgb 12.0 L (13.0-17.5) gm/dL Hct 36.7 L (39.0-53.0) % Neutrophils # (1.3-7.7) k/uL Monocytes # (0-1.0) k/uL PT (10.0-12.5) sec INR (<1.2) APTT (22.0-30.0) sec Fibrinogen (200-500) mg/dL ABG pH 7.49 H (7.35-7.45) ABG pCO2 (35-45) mmHg ABG pO2 63 L (83-108) mmHg ABG HCO3 32 H (21-25) mmol/L ABG Total CO2 34 H (19-24) mmol/L ABG O2 Saturation 92.1 L (94-97) % ABG Lactic Acid (0.5-1.6) mmol/L Sodium (137-145) mmol/L Potassium (3.5-5.1) mmol/L Chloride (98-107) mmol/L Carbon Dioxide (22-30) mmol/L BUN (9-20) mg/dL Glucose (74-99) mg/dL POC Glucose (mg/dL) 151 H (70-110) mg/dL Plasma Lactic Acid Guillaume (0.7-2.0) mmol/L Calcium (8.4-10.2) mg/dL Magnesium (1.6-2.3) mg/dL Total Bilirubin (0.2-1.3) mg/dL AST (17-59) U/L ALT (4-49) U/L Lactate Dehydrogenase (120-246) U/L Creatine Kinase (55-170) U/L Troponin I (0.000-0.034) ng/mL Total Protein (6.3-8.2) g/dL Albumin (3.5-5.0) g/dL 10/14/23 10/14/23 10/14/23 Range/Units 18:30 18:30 20:45 WBC (3.8-10.6) k/uL RBC (4.30-5.90) m/uL Hgb (13.0-17.5) gm/dL Hct (39.0-53.0) % Neutrophils # (1.3-7.7) k/uL Monocytes # (0-1.0) k/uL PT (10.0-12.5) sec INR (<1.2) APTT (22.0-30.0) sec Fibrinogen (200-500) mg/dL ABG pH (7.35-7.45) ABG pCO2 (35-45) mmHg ABG pO2 53 L* (83-108) mmHg ABG HCO3 26 H (21-25) mmol/L ABG Total CO2 27 H (19-24) mmol/L ABG O2 Saturation 85.9 L (94-97) % ABG Lactic Acid (0.5-1.6) mmol/L Sodium 128 L (137-145) mmol/L Potassium 3.3 L (3.5-5.1) mmol/L Chloride 88 L (98-107) mmol/L Carbon Dioxide (22-30) mmol/L BUN 24 H (9-20) mg/dL Glucose 256 H (74-99) mg/dL POC Glucose (mg/dL) (70-110) mg/dL Plasma Lactic Acid Guillaume (0.7-2.0) mmol/L Calcium (8.4-10.2) mg/dL Magnesium 2.6 H (1.6-2.3) mg/dL Total Bilirubin 1.8 H (0.2-1.3) mg/dL AST (17-59) U/L ALT (4-49) U/L Lactate Dehydrogenase (120-246) U/L Creatine Kinase (55-170) U/L Troponin I 0.790 H* (0.000-0.034) ng/mL Total Protein 6.1 L (6.3-8.2) g/dL Albumin 2.9 L (3.5-5.0) g/dL 10/14/23 10/14/23 10/14/23 Range/Units 22:45 22:45 22:50 WBC 30.1 H (3.8-10.6) k/uL RBC 3.56 L (4.30-5.90) m/uL Hgb 10.9 L (13.0-17.5) gm/dL Hct 33.1 L (39.0-53.0) % Neutrophils # 27.0 H (1.3-7.7) k/uL Monocytes # 1.7 H (0-1.0) k/uL PT (10.0-12.5) sec INR (<1.2) APTT (22.0-30.0) sec Fibrinogen (200-500) mg/dL ABG pH (7.35-7.45) ABG pCO2 (35-45) mmHg ABG pO2 (83-108) mmHg ABG HCO3 (21-25) mmol/L ABG Total CO2 (19-24) mmol/L ABG O2 Saturation (94-97) % ABG Lactic Acid 6.8 H* (0.5-1.6) mmol/L Sodium 128 L (137-145) mmol/L Potassium (3.5-5.1) mmol/L Chloride 88 L (98-107) mmol/L Carbon Dioxide 31 H (22-30) mmol/L BUN 25 H (9-20) mg/dL Glucose 354 H (74-99) mg/dL POC Glucose (mg/dL) (70-110) mg/dL Plasma Lactic Acid Guillaume (0.7-2.0) mmol/L Calcium 7.9 L (8.4-10.2) mg/dL Magnesium (1.6-2.3) mg/dL Total Bilirubin 2.0 H (0.2-1.3) mg/dL AST 302 H (17-59) U/L ALT 52 H (4-49) U/L Lactate Dehydrogenase (120-246) U/L Creatine Kinase (55-170) U/L Troponin I (0.000-0.034) ng/mL Total Protein 5.4 L (6.3-8.2) g/dL Albumin 2.4 L (3.5-5.0) g/dL 10/14/23 10/15/23 10/15/23 Range/Units 23:24 02:20 03:13 WBC (3.8-10.6) k/uL RBC (4.30-5.90) m/uL Hgb (13.0-17.5) gm/dL Hct (39.0-53.0) % Neutrophils # (1.3-7.7) k/uL Monocytes # (0-1.0) k/uL PT 13.5 H (10.0-12.5) sec INR 1.3 H (<1.2) APTT (22.0-30.0) sec Fibrinogen 530 H (200-500) mg/dL ABG pH (7.35-7.45) ABG pCO2 (35-45) mmHg ABG pO2 (83-108) mmHg ABG HCO3 (21-25) mmol/L ABG Total CO2 (19-24) mmol/L ABG O2 Saturation (94-97) % ABG Lactic Acid (0.5-1.6) mmol/L Sodium (137-145) mmol/L Potassium (3.5-5.1) mmol/L Chloride (98-107) mmol/L Carbon Dioxide (22-30) mmol/L BUN (9-20) mg/dL Glucose (74-99) mg/dL POC Glucose (mg/dL) (70-110) mg/dL Plasma Lactic Acid Guillaume 4.7 H* (0.7-2.0) mmol/L Calcium (8.4-10.2) mg/dL Magnesium (1.6-2.3) mg/dL Total Bilirubin (0.2-1.3) mg/dL AST (17-59) U/L ALT (4-49) U/L Lactate Dehydrogenase (120-246) U/L Creatine Kinase (55-170) U/L Troponin I (0.000-0.034) ng/mL Total Protein (6.3-8.2) g/dL Albumin (3.5-5.0) g/dL 10/15/23 10/15/23 10/15/23 Range/Units 03:13 03:13 05:57 WBC 24.6 H (3.8-10.6) k/uL RBC 3.47 L (4.30-5.90) m/uL Hgb 10.7 L (13.0-17.5) gm/dL Hct 31.9 L (39.0-53.0) % Neutrophils # 19.9 H (1.3-7.7) k/uL Monocytes # 1.9 H (0-1.0) k/uL PT (10.0-12.5) sec INR (<1.2) APTT (22.0-30.0) sec Fibrinogen (200-500) mg/dL ABG pH (7.35-7.45) ABG pCO2 53 H (35-45) mmHg ABG pO2 213 H (83-108) mmHg ABG HCO3 36 H (21-25) mmol/L ABG Total CO2 38 H (19-24) mmol/L ABG O2 Saturation 98.6 H (94-97) % ABG Lactic Acid (0.5-1.6) mmol/L Sodium 128 L (137-145) mmol/L Potassium (3.5-5.1) mmol/L Chloride 89 L (98-107) mmol/L Carbon Dioxide 37 H (22-30) mmol/L BUN 27 H (9-20) mg/dL Glucose 307 H (74-99) mg/dL POC Glucose (mg/dL) (70-110) mg/dL Plasma Lactic Acid Guillaume (0.7-2.0) mmol/L Calcium 7.6 L (8.4-10.2) mg/dL Magnesium (1.6-2.3) mg/dL Total Bilirubin (0.2-1.3) mg/dL AST (17-59) U/L ALT (4-49) U/L Lactate Dehydrogenase 1478 H (120-246) U/L Creatine Kinase (55-170) U/L Troponin I (0.000-0.034) ng/mL Total Protein (6.3-8.2) g/dL Albumin (3.5-5.0) g/dL 10/15/23 10/15/23 10/15/23 Range/Units 06:15 06:15 06:15 WBC (3.8-10.6) k/uL RBC (4.30-5.90) m/uL Hgb (13.0-17.5) gm/dL Hct (39.0-53.0) % Neutrophils # (1.3-7.7) k/uL Monocytes # (0-1.0) k/uL PT (10.0-12.5) sec INR (<1.2) APTT (22.0-30.0) sec Fibrinogen (200-500) mg/dL ABG pH (7.35-7.45) ABG pCO2 (35-45) mmHg ABG pO2 (83-108) mmHg ABG HCO3 (21-25) mmol/L ABG Total CO2 (19-24) mmol/L ABG O2 Saturation (94-97) % ABG Lactic Acid (0.5-1.6) mmol/L Sodium (137-145) mmol/L Potassium (3.5-5.1) mmol/L Chloride (98-107) mmol/L Carbon Dioxide (22-30) mmol/L BUN (9-20) mg/dL Glucose (74-99) mg/dL POC Glucose (mg/dL) 315 H (70-110) mg/dL Plasma Lactic Acid Guillaume 4.0 H* (0.7-2.0) mmol/L Calcium (8.4-10.2) mg/dL Magnesium (1.6-2.3) mg/dL Total Bilirubin (0.2-1.3) mg/dL AST (17-59) U/L ALT (4-49) U/L Lactate Dehydrogenase 1932 H (120-246) U/L Creatine Kinase (55-170) U/L Troponin I (0.000-0.034) ng/mL Total Protein (6.3-8.2) g/dL Albumin (3.5-5.0) g/dL 10/15/23 10/15/23 10/15/23 Range/Units 08:55 08:55 08:55 WBC (3.8-10.6) k/uL RBC (4.30-5.90) m/uL Hgb (13.0-17.5) gm/dL Hct (39.0-53.0) % Neutrophils # (1.3-7.7) k/uL Monocytes # (0-1.0) k/uL PT (10.0-12.5) sec INR (<1.2) APTT 39.9 H (22.0-30.0) sec Fibrinogen (200-500) mg/dL ABG pH (7.35-7.45) ABG pCO2 (35-45) mmHg ABG pO2 (83-108) mmHg ABG HCO3 (21-25) mmol/L ABG Total CO2 (19-24) mmol/L ABG O2 Saturation (94-97) % ABG Lactic Acid (0.5-1.6) mmol/L Sodium (137-145) mmol/L Potassium (3.5-5.1) mmol/L Chloride (98-107) mmol/L Carbon Dioxide (22-30) mmol/L BUN (9-20) mg/dL Glucose (74-99) mg/dL POC Glucose (mg/dL) (70-110) mg/dL Plasma Lactic Acid Guillaume (0.7-2.0) mmol/L Calcium (8.4-10.2) mg/dL Magnesium (1.6-2.3) mg/dL Total Bilirubin 2.0 H (0.2-1.3) mg/dL AST 587 H (17-59) U/L ALT 91 H (4-49) U/L Lactate Dehydrogenase (120-246) U/L Creatine Kinase 6723 H* (55-170) U/L Troponin I 282.000 H* (0.000-0.034) ng/mL Total Protein 5.0 L (6.3-8.2) g/dL Albumin 2.2 L (3.5-5.0) g/dL Assessment and Plan Assessment: 1. Hyponatremia. Associated with urine retention and hypervolemia. Patient was diuresed. Sodium was 130. Today it is at 128. Status postcardiac arrest and currently maintained on normal saline. 2. Acute kidney injury secondary to urinary retention. Creatinine 1.26 on admission and resolved at 0.7. No proteinuria on UA. No hydronephrosis noted on kidney ultrasound. 3. Urinary retention status post Rosales catheter placement. On Flomax. Urology following. 4. Benign hypertension. Controlled. 5. Hypokalemia from poor intake and postobstructive diuresis. Magnesium normal. 6. Rhabdomyolysis secondary to fall. 7. Status postcardiac arrest x [address] elevation [place] status post 5 coronary stents placement on 10/14/2023. Plan: Continue with normal saline Antiarrhythmic medications as per cardiology Repeat labs in a.m.
[2023-10-15] MEDS: ASPIRIN 81 MG PO SCH (10:57)
[2023-10-15 12:46] LABS: Glucose,Whole Blood 270 mg/dL (70-110)
[2023-10-15] MEDS: INSULIN ASPART (NovoLOG) 100 UNIT/ML VIAL SQ SCH (12:47)
--- NOTE | 2023-10-15 13:06 | P.PN ---
Subjective Progress Note Date: 10/15/23 Principal diagnosis: Reason for follow-up is COVID-19 and pneumonia Patient is a 77-year-old male with a past medical history significant for hypertension seizure disorder hypothyroidism patient has been brought into the hospital for evaluation of generalized weakness patient was noticed to be on the bathroom floor after apparently patient fell down, patient did tested positive for COVID-19, initial chest x-ray reported negative.Patient did have significant change in his clinical condition and did have a cardiac arrest on 10/14/2023 the patient was taken to the [facility] and did have PTCA and stenting x 5 subsequently patient has been admitted to ICU. On today's visit that is 10/15/2023 patient did spike a fever this afternoon 103.1 F, the patient is currently on the vent FiO2 at 60% patient requiring pressor support to maintain his blood pressure no vomiting or diarrhea has been reported by the nursing staff. Patient white count is up to 24.6, creatinine is 1.19 Objective - Vital Signs Vital signs: Vital Signs Temp 103.1 F H 10/15/23 12:00 Pulse 99 10/15/23 13:00 Resp 31 H 10/15/23 13:00 BP 98/54 10/15/23 13:00 Pulse Ox 98 10/15/23 13:00 FiO2 60 10/15/23 12:00 Intake & Output 10/14/23 10/15/23 10/15/23 18:59 06:59 18:59 Intake Total 280 2861.429 1326.186 Output Total 800 1450 110 Balance -520 9759.805 6297.186 Weight 106.7 kg Intake: IV 280 1656 540 A-line 54 24 Dextrose 5% in Water 1, 900 000 ml @ 100 mls/hr IV . Q11H ONE with Sodium Bicarb (1 Meq/ml) 100 ml Rx#:[id number] Invasive Line 9 30 Potassium Chloride 10 meq 100 In Water For Injection 1 100ml.bag @ 100 mls/hr IVPB Q1H [place] Rx#: [id number] Sodium Bicarb (1 Meq/ml) 27 12 12.5 ml In Dextrose 5% in Water 500 ml @ Per Protocol IV DIRECTED [place] Rx#:[id number] Sodium Chloride 0.9% 1, 675 300 000 ml In Empty Bag 1 bag @ 75 mls/hr IV .[id number] [place] Rx#:[id number] Tirofiban 12.5MG-250Ml Ns 104 250 ml @ 0.15 MCG/KG/MIN 26.37 mls/hr IV .Q9H29M [place] Rx#:[id number] Intake, IV Titration 1175.429 786.186 Amount Amiodarone 360 mg In 357.221 Dextrose 5% in Water 200 ml @ 1 MG/MIN 33.333 mls/ hr IV .Q6H [place] Rx#: [id number] Heparin Sod,Pork in 0.45% 59.035 87.846 NaCl 25,000 unit In 0.45 % NaCl 1 250ml.bag @ 6.83 UNITS/KG/HR 10.006 mls/ hr IV .Q24H [place] Rx#: [id number] Lidocaine-D5w Pmx 2G/ 244.5 250Ml 2,000 mg In Dextrose/Water 1 250ml. bag @ 1 MG/MIN 7.5 mls/hr IV .Q24H [facility] Rx#: [id number] Norepinephrine 8 mg In 292.017 201.175 Sodium Chloride 0.9% 250 ml @ 0.03 MCG/KG/MIN 8. 504 mls/hr IV .Q24H [place] Rx#:[id number] Vasopressin 60 unit In 58.905 Sodium Chloride 0.9% 150 ml @ 0.03 UNITS/MIN 4.59 mls/hr IV .Q24H ONE Rx#: [id number] propofoL 1,000 mg In 467.156 193.760 Empty Bag 1 bag @ 30 MCG/ KG/MIN 26.37 mls/hr IV . Q3H48M [facility] Rx#:[id number] Oral 0 Other 30 Output: Urine 800 1450 110 Other: Voiding Method Indwelling Catheter Indwelling Catheter ABP, PAP, CO, CI - Last Documented Arterial Blood Pressure 100/64 - Exam GENERAL DESCRIPTION: An elderly male intubated on the vent RESPIRATORY SYSTEM: Unlabored breathing , decreased breath sounds at bases HEART: S1 S2 regular rate and rhythm , ABDOMEN: Soft , no tenderness EXTREMITIES: No edema feet - Labs CBC & Chem 7: 10/15/23 03:13 10/15/23 03:13 Labs: Abnormal Lab Results - Last 24 Hours (Table) 10/14/23 10/14/23 10/14/23 Range/Units 16:18 17:00 17:54 WBC (3.8-10.6) k/uL RBC (4.30-5.90) m/uL Hgb (13.0-17.5) gm/dL Hct (39.0-53.0) % Neutrophils # (1.3-7.7) k/uL Monocytes # (0-1.0) k/uL PT (10.0-12.5) sec INR (<1.2) APTT (22.0-30.0) sec Fibrinogen (200-500) mg/dL ABG pH 7.49 H (7.35-7.45) ABG pCO2 (35-45) mmHg ABG pO2 63 L (83-108) mmHg ABG HCO3 32 H (21-25) mmol/L ABG Total CO2 34 H (19-24) mmol/L ABG O2 Saturation 92.1 L (94-97) % ABG Lactic Acid (0.5-1.6) mmol/L Sodium (137-145) mmol/L Potassium (3.5-5.1) mmol/L Chloride (98-107) mmol/L Carbon Dioxide (22-30) mmol/L BUN (9-20) mg/dL Glucose (74-99) mg/dL POC Glucose (mg/dL) 131 H 151 H (70-110) mg/dL Plasma Lactic Acid Guillaume (0.7-2.0) mmol/L Calcium (8.4-10.2) mg/dL Magnesium (1.6-2.3) mg/dL Total Bilirubin (0.2-1.3) mg/dL AST (17-59) U/L ALT (4-49) U/L Lactate Dehydrogenase (120-246) U/L Creatine Kinase (55-170) U/L Troponin I (0.000-0.034) ng/mL Total Protein (6.3-8.2) g/dL Albumin (3.5-5.0) g/dL 10/14/23 10/14/23 10/14/23 Range/Units 18:30 18:30 18:30 WBC 31.0 H (3.8-10.6) k/uL RBC 4.01 L (4.30-5.90) m/uL Hgb 12.0 L (13.0-17.5) gm/dL Hct 36.7 L (39.0-53.0) % Neutrophils # (1.3-7.7) k/uL Monocytes # (0-1.0) k/uL PT (10.0-12.5) sec INR (<1.2) APTT (22.0-30.0) sec Fibrinogen (200-500) mg/dL ABG pH (7.35-7.45) ABG pCO2 (35-45) mmHg ABG pO2 (83-108) mmHg ABG HCO3 (21-25) mmol/L ABG Total CO2 (19-24) mmol/L ABG O2 Saturation (94-97) % ABG Lactic Acid (0.5-1.6) mmol/L Sodium 128 L (137-145) mmol/L Potassium 3.3 L (3.5-5.1) mmol/L Chloride 88 L (98-107) mmol/L Carbon Dioxide (22-30) mmol/L BUN 24 H (9-20) mg/dL Glucose 256 H (74-99) mg/dL POC Glucose (mg/dL) (70-110) mg/dL Plasma Lactic Acid Guillaume (0.7-2.0) mmol/L Calcium (8.4-10.2) mg/dL Magnesium 2.6 H (1.6-2.3) mg/dL Total Bilirubin 1.8 H (0.2-1.3) mg/dL AST (17-59) U/L ALT (4-49) U/L Lactate Dehydrogenase (120-246) U/L Creatine Kinase (55-170) U/L Troponin I 0.790 H* (0.000-0.034) ng/mL Total Protein 6.1 L (6.3-8.2) g/dL Albumin 2.9 L (3.5-5.0) g/dL 10/14/23 10/14/23 10/14/23 Range/Units 20:45 22:45 22:45 WBC 30.1 H (3.8-10.6) k/uL RBC 3.56 L (4.30-5.90) m/uL Hgb 10.9 L (13.0-17.5) gm/dL Hct 33.1 L (39.0-53.0) % Neutrophils # 27.0 H (1.3-7.7) k/uL Monocytes # 1.7 H (0-1.0) k/uL PT (10.0-12.5) sec INR (<1.2) APTT (22.0-30.0) sec Fibrinogen (200-500) mg/dL ABG pH (7.35-7.45) ABG pCO2 (35-45) mmHg ABG pO2 53 L* (83-108) mmHg ABG HCO3 26 H (21-25) mmol/L ABG Total CO2 27 H (19-24) mmol/L ABG O2 Saturation 85.9 L (94-97) % ABG Lactic Acid (0.5-1.6) mmol/L Sodium 128 L (137-145) mmol/L Potassium (3.5-5.1) mmol/L Chloride 88 L (98-107) mmol/L Carbon Dioxide 31 H (22-30) mmol/L BUN 25 H (9-20) mg/dL Glucose 354 H (74-99) mg/dL POC Glucose (mg/dL) (70-110) mg/dL Plasma Lactic Acid Guillaume (0.7-2.0) mmol/L Calcium 7.9 L (8.4-10.2) mg/dL Magnesium (1.6-2.3) mg/dL Total Bilirubin 2.0 H (0.2-1.3) mg/dL AST 302 H (17-59) U/L ALT 52 H (4-49) U/L Lactate Dehydrogenase (120-246) U/L Creatine Kinase (55-170) U/L Troponin I (0.000-0.034) ng/mL Total Protein 5.4 L (6.3-8.2) g/dL Albumin 2.4 L (3.5-5.0) g/dL 10/14/23 10/14/23 10/15/23 Range/Units 22:50 23:24 02:20 WBC (3.8-10.6) k/uL RBC (4.30-5.90) m/uL Hgb (13.0-17.5) gm/dL Hct (39.0-53.0) % Neutrophils # (1.3-7.7) k/uL Monocytes # (0-1.0) k/uL PT 13.5 H (10.0-12.5) sec INR 1.3 H (<1.2) APTT (22.0-30.0) sec Fibrinogen 530 H (200-500) mg/dL ABG pH (7.35-7.45) ABG pCO2 (35-45) mmHg ABG pO2 (83-108) mmHg ABG HCO3 (21-25) mmol/L ABG Total CO2 (19-24) mmol/L ABG O2 Saturation (94-97) % ABG Lactic Acid 6.8 H* (0.5-1.6) mmol/L Sodium (137-145) mmol/L Potassium (3.5-5.1) mmol/L Chloride (98-107) mmol/L Carbon Dioxide (22-30) mmol/L BUN (9-20) mg/dL Glucose (74-99) mg/dL POC Glucose (mg/dL) (70-110) mg/dL Plasma Lactic Acid Guillaume (0.7-2.0) mmol/L Calcium (8.4-10.2) mg/dL Magnesium (1.6-2.3) mg/dL Total Bilirubin (0.2-1.3) mg/dL AST (17-59) U/L ALT (4-49) U/L Lactate Dehydrogenase (120-246) U/L Creatine Kinase (55-170) U/L Troponin I (0.000-0.034) ng/mL Total Protein (6.3-8.2) g/dL Albumin (3.5-5.0) g/dL 10/15/23 10/15/23 10/15/23 Range/Units 03:13 03:13 03:13 WBC 24.6 H (3.8-10.6) k/uL RBC 3.47 L (4.30-5.90) m/uL Hgb 10.7 L (13.0-17.5) gm/dL Hct 31.9 L (39.0-53.0) % Neutrophils # 19.9 H (1.3-7.7) k/uL Monocytes # 1.9 H (0-1.0) k/uL PT (10.0-12.5) sec INR (<1.2) APTT (22.0-30.0) sec Fibrinogen (200-500) mg/dL ABG pH (7.35-7.45) ABG pCO2 (35-45) mmHg ABG pO2 (83-108) mmHg ABG HCO3 (21-25) mmol/L ABG Total CO2 (19-24) mmol/L ABG O2 Saturation (94-97) % ABG Lactic Acid (0.5-1.6) mmol/L Sodium 128 L (137-145) mmol/L Potassium (3.5-5.1) mmol/L Chloride 89 L (98-107) mmol/L Carbon Dioxide 37 H (22-30) mmol/L BUN 27 H (9-20) mg/dL Glucose 307 H (74-99) mg/dL POC Glucose (mg/dL) (70-110) mg/dL Plasma Lactic Acid Guillaume 4.7 H* (0.7-2.0) mmol/L Calcium 7.6 L (8.4-10.2) mg/dL Magnesium (1.6-2.3) mg/dL Total Bilirubin (0.2-1.3) mg/dL AST (17-59) U/L ALT (4-49) U/L Lactate Dehydrogenase 1478 H (120-246) U/L Creatine Kinase (55-170) U/L Troponin I (0.000-0.034) ng/mL Total Protein (6.3-8.2) g/dL Albumin (3.5-5.0) g/dL 10/15/23 10/15/23 10/15/23 Range/Units 05:57 06:15 06:15 WBC (3.8-10.6) k/uL RBC (4.30-5.90) m/uL Hgb (13.0-17.5) gm/dL Hct (39.0-53.0) % Neutrophils # (1.3-7.7) k/uL Monocytes # (0-1.0) k/uL PT (10.0-12.5) sec INR (<1.2) APTT (22.0-30.0) sec Fibrinogen (200-500) mg/dL ABG pH (7.35-7.45) ABG pCO2 53 H (35-45) mmHg ABG pO2 213 H (83-108) mmHg ABG HCO3 36 H (21-25) mmol/L ABG Total CO2 38 H (19-24) mmol/L ABG O2 Saturation 98.6 H (94-97) % ABG Lactic Acid (0.5-1.6) mmol/L Sodium (137-145) mmol/L Potassium (3.5-5.1) mmol/L Chloride (98-107) mmol/L Carbon Dioxide (22-30) mmol/L BUN (9-20) mg/dL Glucose (74-99) mg/dL POC Glucose (mg/dL) 315 H (70-110) mg/dL Plasma Lactic Acid Guillaume 4.0 H* (0.7-2.0) mmol/L Calcium (8.4-10.2) mg/dL Magnesium (1.6-2.3) mg/dL Total Bilirubin (0.2-1.3) mg/dL AST (17-59) U/L ALT (4-49) U/L Lactate Dehydrogenase (120-246) U/L Creatine Kinase (55-170) U/L Troponin I (0.000-0.034) ng/mL Total Protein (6.3-8.2) g/dL Albumin (3.5-5.0) g/dL 10/15/23 10/15/23 10/15/23 Range/Units 06:15 08:55 08:55 WBC (3.8-10.6) k/uL RBC (4.30-5.90) m/uL Hgb (13.0-17.5) gm/dL Hct (39.0-53.0) % Neutrophils # (1.3-7.7) k/uL Monocytes # (0-1.0) k/uL PT (10.0-12.5) sec INR (<1.2) APTT (22.0-30.0) sec Fibrinogen (200-500) mg/dL ABG pH (7.35-7.45) ABG pCO2 (35-45) mmHg ABG pO2 (83-108) mmHg ABG HCO3 (21-25) mmol/L ABG Total CO2 (19-24) mmol/L ABG O2 Saturation (94-97) % ABG Lactic Acid (0.5-1.6) mmol/L Sodium (137-145) mmol/L Potassium (3.5-5.1) mmol/L Chloride (98-107) mmol/L Carbon Dioxide (22-30) mmol/L BUN (9-20) mg/dL Glucose (74-99) mg/dL POC Glucose (mg/dL) (70-110) mg/dL Plasma Lactic Acid Guillaume (0.7-2.0) mmol/L Calcium (8.4-10.2) mg/dL Magnesium (1.6-2.3) mg/dL Total Bilirubin 2.0 H (0.2-1.3) mg/dL AST 587 H (17-59) U/L ALT 91 H (4-49) U/L Lactate Dehydrogenase 1932 H (120-246) U/L Creatine Kinase 6723 H* (55-170) U/L Troponin I 282.000 H* (0.000-0.034) ng/mL Total Protein 5.0 L (6.3-8.2) g/dL Albumin 2.2 L (3.5-5.0) g/dL 10/15/23 10/15/23 10/15/23 Range/Units 08:55 08:55 12:44 WBC (3.8-10.6) k/uL RBC (4.30-5.90) m/uL Hgb (13.0-17.5) gm/dL Hct (39.0-53.0) % Neutrophils # (1.3-7.7) k/uL Monocytes # (0-1.0) k/uL PT (10.0-12.5) sec INR (<1.2) APTT 39.9 H (22.0-30.0) sec Fibrinogen (200-500) mg/dL ABG pH (7.35-7.45) ABG pCO2 (35-45) mmHg ABG pO2 (83-108) mmHg ABG HCO3 (21-25) mmol/L ABG Total CO2 (19-24) mmol/L ABG O2 Saturation (94-97) % ABG Lactic Acid (0.5-1.6) mmol/L Sodium (137-145) mmol/L Potassium (3.5-5.1) mmol/L Chloride (98-107) mmol/L Carbon Dioxide (22-30) mmol/L BUN (9-20) mg/dL Glucose (74-99) mg/dL POC Glucose (mg/dL) 270 H (70-110) mg/dL Plasma Lactic Acid Guillaume (0.7-2.0) mmol/L Calcium (8.4-10.2) mg/dL Magnesium (1.6-2.3) mg/dL Total Bilirubin (0.2-1.3) mg/dL AST (17-59) U/L ALT (4-49) U/L Lactate Dehydrogenase 1958 H (120-246) U/L Creatine Kinase (55-170) U/L Troponin I (0.000-0.034) ng/mL Total Protein (6.3-8.2) g/dL Albumin (3.5-5.0) g/dL Assessment and Plan (1) COVID-19 Current Visit: Yes Status: Acute Code(s): U07.1 - COVID-19 SNOMED Code(s): 468650453 (2) Sepsis Current Visit: Yes Status: Acute Code(s): A41.9 - SEPSIS, UNSPECIFIED ORGANISM SNOMED Code(s): 51252705 (3) Pneumonia Current Visit: Yes Status: Acute Code(s): J18.9 - PNEUMONIA, UNSPECIFIED ORGANISM SNOMED Code(s): 854046946 (4) Penicillin allergy Current Visit: Yes Status: Acute Code(s): Z88.0 - ALLERGY STATUS TO PENICILLIN SNOMED Code(s): 68328154 (5) Thrush, oral Current Visit: Yes Status: Acute Code(s): B37.0 - CANDIDAL STOMATITIS SNOMED Code(s): 15703712 Plan: 1patient did have significant changes in clinical condition he did have a cardiac arrest on 10/14/2023 Patient Was Taken to the [facility] status post PTCA and stenting x 2 patient did have a new fever and is requiring pressor support 2-we will obtain blood cultures CRP procalcitonin sputum for Gram stain culture 3-we will start the patient on cefepime 2 g every 8 hours while waiting for the culture to finalize Prognosis guarded Dictation was produced using Dash dictation software. please excuse any grammatical, word or spelling errors. Time with Patient: Greater than 30
[2023-10-15] MEDS: CEFEPIME 2 GM in SODIUM CHLORIDE 0.9% 100 ML IVPB SCH (13:11)
--- NOTE | 2023-10-15 15:56 | CA ---
Transthoracic Echo Report Name: Ana Kaba Age: 77 Gender: M : 1945 Exam Date: 10/15/2023 08:01 Exam Location: [facility] Ht (in): 61 Wt (lb): 322 Ordering Physician: Ezequiel Whittaker MD ([id number]) Attending/Referring Phys: [employer] Trevor Barros RDCS Procedure CPT: Indications: Post Impella Cardiac Hx: Technical Quality: Contrast 1: Total Dose (mL): Contrast 2: Total Dose (mL): MEASUREMENTS (Male / Female) Normal Values FINDINGS Left Ventricle Right Ventricle Right Atrium Left Atrium Mitral Valve Aortic Valve Tricuspid Valve Pulmonic Valve Pericardium Aorta CONCLUSIONS Limited study to check Impella, previous echo recorded on 10/10/2023. Severely impaired LV function with EF around 20% Previewed by: Dr. Ezequiel Whittaker MD (Electronically Signed) Final Date: 15 October 2023 15:56
[2023-10-15 16:41] LABS: Partial Thromboplastin Time 79.4 sec (22.0-30.0)
[2023-10-15 16:43] LABS: Glucose,Whole Blood 204 mg/dL (70-110)
[2023-10-15 17:08] LABS: Potassium 3.9 mmol/L (3.5-5.1)
[2023-10-15] MEDS: SODIUM CHLORIDE 0.9% 1,000 ML IV SCH (20:00)
[2023-10-15 20:07] LABS: Glucose,Whole Blood 216 mg/dL (70-110)
[2023-10-15] MEDS: ATORVASTATIN 80 MG TAB PO SCH (20:44)
[2023-10-15] MEDS: DIVALPROEX SPRINKLE 125 MG CAP.SPRINK PO SCH (21:02)
[2023-10-15 23:15] LABS: HCT 27.9 % (39.0-53.0); HGB 9.3 gm/dL (13.0-17.5); MCH 30.8 pg (25.0-35.0); MCHC 33.4 g/dL (31.0-37.0); MCV 92.2 fL (80.0-100.0); Mean Platelet Volume 10.2; Platelet Count 223 k/uL (150-450); RBC 3.03 m/uL (4.30-5.90); RDW 13.3 % (11.5-15.5); WBC 38.6 k/uL (3.8-10.6)
[2023-10-15 23:46] LABS: Glucose,Whole Blood 199 mg/dL (70-110)
[2023-10-15 23:59] LABS: Partial Thromboplastin Time 24.9 sec (22.0-30.0)
[2023-10-16] MEDS: HYDROmorphone 0.5 MG/0.5 ML SYRINGE IVP PRN (00:45)
[2023-10-16 04:15] LABS: Glucose,Whole Blood 183 mg/dL (70-110)
[2023-10-16 04:32] LABS: Basophils # (A) 0.3 k/uL (0-0.2); Basophils % (A) 1 %; Eosinophils % (A) 0 %; HCT 24.8 % (39.0-53.0); HGB 8.7 gm/dL (13.0-17.5); Lymphocytes # (A) 3.3 k/uL (1.0-4.8); Lymphocytes % (A) 9 %; MCH 31.8 pg (25.0-35.0); Mean Platelet Volume 11.1; Monocytes # (A) 3.4 k/uL (0-1.0); Monocytes % (A) 9 %; Neutrophils # (A) 29.7 k/uL (1.3-7.7); Neutrophils % (A) 79 %; Platelet Count 195 k/uL (150-450); RBC 2.72 m/uL (4.30-5.90); RDW 13.6 % (11.5-15.5); WBC 37.6 k/uL (3.8-10.6)
[2023-10-16 04:34] LABS: ALT 147 U/L (4-49); AST 491 U/L (17-59); African American GFR (CKD) 37 (>60 ml/min/1.73 sqM); Alkaline Phosphatase 59 U/L (38-126); Anion Gap 1 mmol/L; Blood Urea Nitrogen 43 mg/dL (9-20); Calcium 6.9 mg/dL (8.4-10.2); Carbon Dioxide 33 mmol/L (22-30); Chloride 95 mmol/L (98-107); Glucose 155 mg/dL (74-99); Magnesium 1.8 mg/dL (1.6-2.3); Non-African American GFR(CKD) 32 (>60 ml/min/1.73 sqM); Phosphorus 4.6 mg/dL (2.5-4.5); Potassium 4.2 mmol/L (3.5-5.1); Sodium 129 mmol/L (137-145); Total Bilirubin 1.6 mg/dL (0.2-1.3); Total Protein 4.7 g/dL (6.3-8.2)
[2023-10-16] MEDS ORDERED: Magnesium Replacement Protocol 1 EACH MISC MISCELLANE PRN (04:41)
[2023-10-16] MEDS: MAGNESIUM SULFATE-D5W PMX 1 GM in DEXTROSE/WATER 1 100ML.BAG IVPB ONE (05:08)
[2023-10-16 05:17] LABS: ABG Base Excess 7.7 mmol/L; ABG HCO3 32 mmol/L (21-25); ABG PCO2 44 mmHg (35-45); ABG PH 7.46 (7.35-7.45); ABG PO2 129 mmHg (83-108); ABG TCO2 33 mmol/L (19-24)
[2023-10-16 05:57] LABS: Allen Test Performed? no
[2023-10-16 06:10] LABS: Anisocytosis (M) Present
[2023-10-16 06:11] LABS: Large Platelets Present
[2023-10-16 06:12] LABS: Polychromasia Present
--- NOTE | 2023-10-16 08:13 | P.PN ---
Subjective Progress Note Date: 10/16/23 This is a 77-year-old male patient with a history of hypertension, seizure disorder, thyroid disorder, former smoker. On September 27, 2023 the patient had gotten up to go the bathroom and slumped onto the ground. He had been reportedly laying on the ground for several hours by family were attempting to get in helping him get up but he was unable to support himself. He also had trouble with urinary incontinence. EMS was called and he was brought here for evaluation. CT scan of the brain revealed no acute intracranial hemorrhage, midline shift or mass effect. EKG revealed sinus rhythm with no significant ST or T wave abnormalities. White count 14.9. Hemoglobin 12.9. Platelets 146. Sodium 126. Potassium 3.9. Bicarb 26. BUN 15. Creatinine 0.68. Glucose 152. AST 148. ALT 43. Creatinine kinase 2283. He did test positive for COVID-19 infection. His initial sodium level was 118. BUN of 24 and a creatinine of 1.26. He had been seen by nephrology, urology and infectious disease. A chest x-ray was done today September 30, 2023 that revealed an elevated right hemidiaphragm and we are consulted for the same. He was sent for a sniff test however the patient was unable to perform the appropriate maneuvers due to overall condition. He is seen on consultation on the selective care unit. He is currently resting in bed. Difficult to arouse but arousable. He is on a nonrebreather mask with O2 saturation of 90%. Currently afebrile. Hemodynamically stable. He has been initiated on Decadron. Antibiotics in the form of cefepime. Saline at 50 MLS per hour. Patient was evaluated today on 10/01/2023, more awake today, more responsive, seems to be more alert, and remains on a nonrebreather mask which I have recommended to transition to high flow nasal cannula. Patient did transition to 10 L high flow nasal cannula and O2 saturation was ranging between 92 up to 96% definitely better today compared to the last couple of days. Still planning to repeat his sniff test to evaluate for right hemidiaphragm paralysis. Procalcitonin level came back elevated at 0.43, patient remains on antibiotics for presumptive right lower lobe pneumonia. WBC count today 13.9 hemoglobin 13.0.Basic metabolic profile is relatively normal. Reevaluated today on 10/02/2023, patient is on 10 L high flow nasal cannula, doing better, breathing easier, O2 saturation is in the low 90s, patient continues to have diminished breath sounds at the right base, and I believe the patient has right hemidiaphragm paralysis with right lower lobe atelectasis, possible underlying pneumonia, but I feel clinically this is not the picture. At any rate the patient is supposed to have a sniff test tomorrow, may even have to consider a CT of the chest to evaluate the right lower lobe further. Based on the sniff test, further recommendations will follow. In the meantime patient is gradually improving, feeling better, breathing easier and definitely his neurological status is significantly improved now compared to how he was few days ago WBC count is 10.2 hemoglobin is 12.3, sodium is up to 130, potassium 3.1 renal profile is normal procalcitonin level on this patient was 0.43, hence he was empirically placed on antibiotics for presumptive right lower lobe pneumonia Progress note dated October 03, 2023. The patient is seen today in room 362. He continues on a nonrebreather mask. Previously, he was on 15 L high flow oxygen. Because of saturations in the high 80s, the nurse switched him to a nonrebreather mask. Currently his saturations are in the low 90s. The patient continues on Decadron, and cefepime. He is getting saline at 50 cc an hour. His procalcitonin level is 0.43. Laboratory data includes a white count 11.3, hemoglobin 13, hematocrit 39.6, and a platelet count of 196,000. Sodium 132, potassium 3.3, chloride 97, CO2 30, BUN 15, creatinine 0.51. The patient's albumin is 2.8. AST is 101, and ALT is 53. Chest x-ray shows some basilar atelectasis or infiltrate, with an elevated right diaphragm, and possible effusion. Progress note dated October 04, 2023. 77-year-old male, seen today in room 362. The patient was initially on a nonrebreather, but saturations were only in the mid 80s. The patient was converted to Airvo, with settings of 60 L/min, with an FiO2 of 95%. His saturations then increased to 88 to 90%. The patient is not receiving any IV fluids. No new labs today. Labs from October 03 have been reviewed. Microbiologic sampling, is negative or pending. Chest x-ray reveals borderline cardiomegaly, with ongoing asymmetric elevation of the right hemidiaphragm. There is increasing patchy bibasilar atelectasis/infiltrate. Progress note dated October 05, 2023. 77-year-old male seen today in room 362. Currently, the patient is on Airvo, with settings of 60 L/min and an FiO2 of 90%. The patient is also wearing a nonrebreather mask, over the Airvo nasal cannula. The patient continues on Decadron and cefepime. We have asked for chest x-ray tomorrow. Clinically, the patient looks reasonably stable, and does not appear to be short of breath. I have asked the nurse, to call respiratory, to adjust his Airvo nasal cannula, and a nonrebreather mask. No new labs today. Progress note dated October 06, 2023. 77-year-old male, seen today in room 256. The patient's respiratory status declined through the night, and the patient was transferred down to the intensive care unit. The patient had blood gases, showing a pO2 of 126, pCO2 of 21, and a pH of 7.70. This blood gas is consistent with a mixed respiratory and metabolic alkalosis. The patient did test positive initially for coronavirus. He is currently on Airvo, with settings of 60 L/min and an FiO2 of 90%. In addition, he is getting a nonrebreather mask. The patient is not receiving any IV fluids. Saturations are in the low to mid 90s. The patient continues on cefepime. Labs include a white count 15, hemoglobin 13.4, hematocrit 39.6, and a platelet count of 181,000. Sodium 133, potassium 3.2, chlorides 96, CO2 29, BUN 28, creatinine 0.81. Glucose is 110. Calcium is 8.4. Chest x-ray shows some patchy mid and lower lung opacities, either the same from the previous x- ray, or mildly improved. There is also elevation of the right diaphragm. Progress note dated October 07, 2023. 77-year-old male seen today in room 256. The patient is currently on Airvo, at 60 L/min with an FiO2 of 90%. Saturations are between 92 and 93%. Occasionall y, he has a nonrebreather mask, over the Airvo nasal cannula. He is not receiving any IV fluids. He had an uneventful night according to the nurses. His white count is 15.7, hemoglobin 12.4, hematocrit 37.9, and platelet count is normal. Sodium 134, potassium 3.8, chlorides 98, CO2 29, BUN 32, creatinine 0.8. Glucose 141. Calcium 8.4. Chest x-ray is unchanged and shows similar patchy infiltrates, in the mid and lower lung zones, with the right diaphragm elevation. Progress note dated October 08, 2023. 77-year-old male seen today in room 256. The patient is currently on Airvo, at 60 L/min, with an FiO2 of 80%. Yesterday, he was on 90%. He is not receiving any IV fluids. We can discontinue isolation. In addition, he has been on cefepime for some time, so that we will be discontinued as well. Current labs include a white count of 14.3, hemoglobin 11.8, hematocrit 36.6, and a normal platelet count of 153,000. Sodium 131, potassium 4, chloride 96, CO2 31, BUN 37, creatinine 0.71. Glucose is 137. Calcium 8.5. Magnesium 2.0. Yesterday's chest x-ray was unchanged. Progress note dated October 09, 2023. 77-year-old male, again seen in room 256. The patient was admitted with a diagnosis of coronavirus infection, and probable coronavirus associated pneumonia. The patient is currently on Airvo, with settings of 60 L/min and an FiO2 of 85%. The patient is not receiving any IV fluids. His chest x-ray today, looks a bit better. Clinically, he is about the same. Current labs include a white count of 17.1, hemoglobin 12.7, hematocrit 37.7, and a normal platelet count. Sodium 130, potassium 4.2, chlorides 92, CO2 31, BUN 37, creatinine 0.8. The patient's glucose was 118. Calcium 8.7. On today's evaluation of 10/10/2023, the patient is being seen for a follow-up in the intensive care unit. The patient remains on high flow oxygen and the patient remains on Airvo 45 L with an FiO2 of 60%. Calm and comfortable. The patient has completed course of IV cefepime. The patient also has completed a course of Decadron. Further is being gradually weaned off. No significant cough or sputum production. No chest tightness. No wheezing. He is calm and comfortable. The white cell count of 16.5 with a hemoglobin 12.5 and a platelet count of 196. BUN is at 38 with a creatinine of 0.9 and sodium levels at 130. Hemodynamically stable. No other specific complaints otherwise for now. Chest x-ray shows significant elevation of the right hemidiaphragm along with patchy infiltrative changes consistent with COVID-19 related pneumonia. The patient remains on Lasix 40 mg IV every 12 hours and net fluid balance is -1.3 L over the past 24 hours. Renal function remained stable. On today's evaluation of 10/11/2023, the patient is being seen for a follow-up. The patient is oxygenation has improved significantly and the patient was taken off the Airvo this morning and the patient was transitioned to 5 L of oxygen by nasal cannula. He is using incentive spirometer. He remains on IV Lasix. Fluid balance has been -1.3 L over the past 24 hours. BUN is at 40 with a creatinine of 0.8 and a sodium levels of 130. The white cell count is still elevated at 18.8 with a hemoglobin 15.5. Awake and alert and communicating. Completed Decadron. Completed the course of IV antibiotics with IV cefepime. On today's evaluation of 10/12/2023, I am seeing the patient for a follow-up. Overall condition remained stable as the patient got transferred out of the intensive care unit. The patient is currently on 5 L of O2 nasal cannula. Using the incentive spirometer. No respiratory difficulties. No aspiration. No antibiotics. No steroids. He is weak and he would benefit from. No nausea. No emesis. No chest pain. His CODE STATUS was again addressed by the primary care team and the patient is still in full CODE STATUS. WBC count is at 18.4 wi th a hemoglobin 12.1 and a platelet count of 232. BUN is at 36 with a creatinine of 0.9. Sodium is at 130. On 10/13/2023, the patient is being seen for a follow-up. The patient is stable on 5 L of oxygen by nasal cannula. No new complaints. No interval worsening shortness of breath. No significant cough or sputum production. No aspiration. Remains weak. Would benefit from rehabilitation and we are contemplating to discharge patient to an ECF facility. Blood work from today shows a sodium level of 130, potassium is at 3.2, bicarb is at 33 with a BUN of 27 with a creatinine of 0.8. He is using incentive spirometer. No altered mentation. Quite weak, has difficulty with mobility and the patient has walker at the bedside and physical therapy has been involved in his care. 10/14/2023, the patient is calm and comfortable. No significant complaints and the patient is resting comfortably in bed. Tolerating diet. Remains on 5 L of oxygen by nasal cannula. No other significant events overnight. White cell count of 12, hemoglobin is at 12, platelet count is at 265 with a BUN of 26 and a creatinine of 0.8. Generalized weakness and debility and the patient is looking for rehabilitation. 10/15/2023, patient is critically ill intubated on mechanical ventilator and using Impella for hemodynamic support. Events from yesterday was noted. Later in the afternoon, the patient went into cardiac arrhythmias and the patient developed torsades and sustained V. tach and ultimately V-fib. CPR was initiated based on the ACLS protocol. The patient was also given CPR and he was defibrillated twice received to 30 rounds of epinephrine, atropine and amiodarone. He was brought into the intensive care and intubated on the mechanical ventilator. Initial downtime was around 7 to 10 minutes. There was return of spontaneous circulation. EKG showed acute ST segment elevation myocardial infarction. Rolling Chair Pusher was activated and the patient was taken immediately for cardiac catheteriz ation under the care of Dr. Carreon. The patient had a lengthy and complicated cardiac revascularization. Initially, while undergoing angioplasty and stenting of the circumflex, the patient had occluded his left main and subsequently went into another cardiac arrest requiring CPR. The Impella was inserted. The left main was successfully stented with a drug-eluting stent. Subsequently, the inte rvention was completed and the patient required multiple stenting involving the circumflex/first obtuse marginal branch, left main and proximal and mid mid right coronary artery disease. As mentioned, Impella was also introduced during the process and currently the patient is receiving PA documentation with a output of 3.4 L/min. His augmented BP is as a mean of 77. He is unresponsive. He is currently on propofol running at 40 mcg/kg/min. He remains on amiodarone drip which is running at 1 mg/min. He remains on IV heparin. He was also started on aspirin and Aggrastat. The patient is intubated and on mechanical ventilator. Currently is on assist-control mode with rate of 26, tidal volume is 450 and FiO2 is at 100% with a PEEP of 15. Peak airway pressures around 30. Chest x-ray shows stable right midlung pulmonary infiltrates which was present on prior to the previous chest x-rays and this is attributed to his previous COVID-19 related pneumonia. He continues to have elevation of the right hemidiaphragm. Orotracheal tube is in a good location. The patient also has a OG tube in place. He currently has a triple-lumen catheter and arterial line in his right femoral vein. Impella has been introduced through the left femoral artery. IV fluids are in the form of bicarb infusion at rate of 100 cc an hour. His antiarrhythmics include a combination of amiodarone at 1 mg/min and lidocaine at 2 mg/min. His blood work from today shows a WBC count of 24.6 with a hemoglobin of 10.7 and a platelet count of 310. Sodium is at 128, potassium is at 3.8, BUN is at 29 with a creatinine of 1.4. Urine output in the order of 30 cc an hour. Neurologically, unresponsive, pupils are round 2 to 3 mm in size. No nystagmus. Nevertheless no significant cough or gag. No preferential gaze. Motor functions cannot be accurately assessed at this point in time as the patient is postcardiac arrest and he is also sedated. He is afebrile. 10/16/2023, the patient remains critically ill intubated on the mechanical ventilator in the intensive care unit. He is postcardiac arrest and post emergent cardiac catheterization and a total of 5 stents were inserted and the patient was also given an Impella for hemodynamic support which is currently at p 7 augmentation with a flow of 3.2 L/min. The patient remains essentially unresponsive. He was given a brief sedation holiday yesterday to assess mentation. Immediately, the patient became restless, asynchronous with mechanical ventilator, and tachycardic and based on his underlying instability, propofol was restarted and which is currently running at 50 mcg/kg/min. He remains on assist-control mode of mechanical ventilation at the rate of 26, tidal volume of 450, FiO2 is at 60% with a PEEP of 15. Chest x-ray shows no major interval change. Blood gas from this morning shows a pH of 7.46 with a pCO2 of 44 and pO2 of 129. Hemodynamically, he remains unstable and hypotensive. Significant support still being provided to the Impella. Unable to tolerate lower levels of augmentation due to significant hypotension. While on P7, the patient is maintaining a mean arterial pressure of 70 and the patient is also on norepinephrine running at 0.02 mcg/kg/min. Cardiac rhythm is sinus tachycardia. No further episodes of ventricular arrhythmias. The patient was taken off the amiodarone and is also off the lidocaine drip. Urine output has dropped considerably and the patient also has developed an acute kidney injury. Creatinine is up to 1.9 with a BUN of 43. He is spiking temperature and his Tmax is 103.1. He remains on the same antibiotic coverage and he is currently on IV cefepime. Another complication is development of an upper GI bleed. Since yesterday afternoon, the patient had dark bloody output from his NG tube and a total amount has been in the order of 400 cc since yesterday. Based on his underlying GI bleed, IV heparin was discontinued. He remains on aspirin and Brilinta. He is off the Aggrastat for now. The hemoglobin has dropped down to 8.7. He remains in normal sinus rate of 75 cc an hour. Norepinephrine is running at 0.02 mcg/kg/min. IV heparin is discontinued. Rest of the blood work shows a WBC count of 37.6, hemoglobin 7.7 and a platelet count of 198. The serum bicarb is at 23 with a sodium level of 129. Blood sugar is at 188. Troponin peaked at 282. CPK was at 01/19/2023. He remains NPO. An echocardiogram was done yesterday and the patient was found to have significant impairment of the LV function with an ejection fraction of around 20%. Contacted the family, unable to get a hold of any family members. The family was supposed to arrive into the hospital to my understanding. Nevertheless, nobody showed up and we have placed multiple phone calls without getting any answers back. He is postcardiac arrest. Please refer to details of the cardiac intervention that was done as stated earlier. , Objective - Vital Signs Vital signs: Vital Signs Temp 102.9 F H 10/16/23 04:00 Pulse 112 H 10/16/23 07:35 Resp 28 H 10/16/23 07:00 BP 93/59 10/16/23 02:00 Pulse Ox 98 10/16/23 07:00 FiO2 60 10/16/23 07:25 Intake & Output 10/15/23 10/16/23 10/16/23 18:59 06:59 18:59 Intake Total 2460.364 1882.291 19.063 Output Total 470 655 45 Balance 3807.558 0767.291 -25.937 Weight 116 kg Intake: IV 1284 1133 9 A-line 66 72 6 Cefepime 2 gm In Sodium 200 Chloride 0.9% 100 ml @ 25 mls/hr IVPB Q8H [place] Rx#: [id number] Potassium Chloride 10 meq 100 In Water For Injection 1 100ml.bag @ 100 mls/hr IVPB Q1H [facility] Rx#: [id number] Sodium Bicarb (1 Meq/ml) 33 36 3 12.5 ml In Dextrose 5% in Water 500 ml @ Per Protocol IV DIRECTED [facility] Rx#:[id number] Sodium Chloride 0.9% 1, 825 825 000 ml In Empty Bag 1 bag @ 75 mls/hr IV .[id number] [facility] Rx#:[id number] Tirofiban 12.5MG-250Ml Ns 260 250 ml @ 0.15 MCG/KG/MIN 26.37 mls/hr IV .Q9H29M [facility] Rx#:[id number] Intake, IV Titration 1176.364 659.291 10.063 Amount Heparin Sod,Pork in 0.45% 237.181 NaCl 25,000 unit In 0.45 % NaCl 1 250ml.bag @ 6.83 UNITS/KG/HR 10.006 mls/ hr IV .Q24H [facility] Rx#: [id number] Lidocaine-D5w Pmx 2G/ 244.5 250Ml 2,000 mg In Dextrose/Water 1 250ml. bag @ 1 MG/MIN 7.5 mls/hr IV .Q24H [facility] Rx#: [id number] Norepinephrine 8 mg In 342.018 267.729 10.063 Sodium Chloride 0.9% 250 ml @ 0.03 MCG/KG/MIN 8. 504 mls/hr IV .Q24H [facility] Rx#:[id number] Vasopressin 60 unit In 58.905 Sodium Chloride 0.9% 150 ml @ 0.03 UNITS/MIN 4.59 mls/hr IV .Q24H [facility] Rx#: [id number] propofoL 1,000 mg In 293.760 391.562 Empty Bag 1 bag @ 30 MCG/ KG/MIN 26.37 mls/hr IV . Q3H48M [facility] Rx#:[id number] Oral 0 0 Other 90 Output: Gastric Drainage 200 250 Urine 270 405 45 Other: Voiding Method Indwelling Catheter Indwelling Catheter ABP, PAP, CO, CI - Last Documented Arterial Blood Pressure 124/74 - Exam General appearance the patient is calm and comfortable, sedated on propofol, intubated on mechanical ventilator. Orogastric and orotracheal tube are both in place. Head exam was generally normal. There was no scleral icterus or corneal arcus. Mucous membranes were moist. Neck was supple and without jugular venous distension, thyromegaly, or carotid bruits. Carotids were easily palpable bilaterally. There was no adenopathy. Lung sounds are diminished breath sounds right lung base. Otherwise rest of the breath sounds are equal. No wheezes or rhonchi. Cardiac exam revealed the PMI to be normally situated and sized. The rhythm was regular and no extrasystoles were noted during several minutes of auscultation. The first and second heart sounds were normal and physiologic splitting of the second heart sound was noted. There were no murmurs, rubs, clicks, or gallops. Abdominal exam revealed normal bowel sounds. The abdomen was soft, non-tender, and without masses, organomegaly, or appreciable enlargement of the abdominal aorta. Extremities reveal diminished pulses in the upper extremity and Doppler signals are present in lower extremities bilaterally. He has femoral triple-lumen catheter and arterial line and Impella is in the left groin. No evidence of bleeding and exit sites are essentially clean. Neurologically the patient is sedated. Pupils are round 2 to 3 mm in size. No facial asymmetry. No cough or gag. Motor and sensory function cannot be assessed. No clonus. No Babinski at this point in time. - Labs CBC & Chem 7: 10/16/23 04:15 10/16/23 04:15 Labs: Abnormal Lab Results - Last 24 Hours (Table) 10/15/23 10/15/23 10/15/23 Range/Units 03:13 03:13 06:15 WBC (3.8-10.6) k/uL RBC (4.30-5.90) m/uL Hgb (13.0-17.5) gm/dL Hct (39.0-53.0) % Neutrophils # (1.3-7.7) k/uL Monocytes # (0-1.0) k/uL Basophils # (0-0.2) k/uL APTT (22.0-30.0) sec Fibrinogen (200-500) mg/dL ABG pH (7.35-7.45) ABG pO2 (83-108) mmHg ABG HCO3 (21-25) mmol/L ABG Total CO2 (19-24) mmol/L ABG O2 Saturation (94-97) % Sodium (137-145) mmol/L Chloride (98-107) mmol/L Carbon Dioxide (22-30) mmol/L BUN (9-20) mg/dL Creatinine (0.66-1.25) mg/dL Glucose (74-99) mg/dL POC Glucose (mg/dL) (70-110) mg/dL Calcium (8.4-10.2) mg/dL Phosphorus (2.5-4.5) mg/dL Total Bilirubin (0.2-1.3) mg/dL AST (17-59) U/L ALT (4-49) U/L Lactate Dehydrogenase 1932 H (120-246) U/L Creatine Kinase (55-170) U/L Troponin I (0.000-0.034) ng/mL C-Reactive Protein 21.0 H (<1.0) mg/dL Total Protein (6.3-8.2) g/dL Albumin (3.5-5.0) g/dL Procalcitonin 2.08 H (0.02-0.09) ng/mL 10/15/23 10/15/23 10/15/23 Range/Units 08:55 08:55 08:55 WBC (3.8-10.6) k/uL RBC (4.30-5.90) m/uL Hgb (13.0-17.5) gm/dL Hct (39.0-53.0) % Neutrophils # (1.3-7.7) k/uL Monocytes # (0-1.0) k/uL Basophils # (0-0.2) k/uL APTT 39.9 H (22.0-30.0) sec Fibrinogen (200-500) mg/dL ABG pH (7.35-7.45) ABG pO2 (83-108) mmHg ABG HCO3 (21-25) mmol/L ABG Total CO2 (19-24) mmol/L ABG O2 Saturation (94-97) % Sodium (137-145) mmol/L Chloride (98-107) mmol/L Carbon Dioxide (22-30) mmol/L BUN (9-20) mg/dL Creatinine (0.66-1.25) mg/dL Glucose (74-99) mg/dL POC Glucose (mg/dL) (70-110) mg/dL Calcium (8.4-10.2) mg/dL Phosphorus (2.5-4.5) mg/dL Total Bilirubin 2.0 H (0.2-1.3) mg/dL AST 587 H (17-59) U/L ALT 91 H (4-49) U/L Lactate Dehydrogenase (120-246) U/L Creatine Kinase 6723 H* (55-170) U/L Troponin I 282.000 H* (0.000-0.034) ng/mL C-Reactive Protein (<1.0) mg/dL Total Protein 5.0 L (6.3-8.2) g/dL Albumin 2.2 L (3.5-5.0) g/dL Procalcitonin (0.02-0.09) ng/mL 10/15/23 10/15/23 10/15/23 Range/Units 08:55 12:44 15:50 WBC (3.8-10.6) k/uL RBC (4.30-5.90) m/uL Hgb (13.0-17.5) gm/dL Hct (39.0-53.0) % Neutrophils # (1.3-7.7) k/uL Monocytes # (0-1.0) k/uL Basophils # (0-0.2) k/uL APTT (22.0-30.0) sec Fibrinogen (200-500) mg/dL ABG pH (7.35-7.45) ABG pO2 (83-108) mmHg ABG HCO3 (21-25) mmol/L ABG Total CO2 (19-24) mmol/L ABG O2 Saturation (94-97) % Sodium (137-145) mmol/L Chloride (98-107) mmol/L Carbon Dioxide (22-30) mmol/L BUN (9-20) mg/dL Creatinine (0.66-1.25) mg/dL Glucose (74-99) mg/dL POC Glucose (mg/dL) 270 H (70-110) mg/dL Calcium (8.4-10.2) mg/dL Phosphorus (2.5-4.5) mg/dL Total Bilirubin (0.2-1.3) mg/dL AST (17-59) U/L ALT (4-49) U/L Lactate Dehydrogenase 1958 H 2327 H (120-246) U/L Creatine Kinase (55-170) U/L Troponin I (0.000-0.034) ng/mL C-Reactive Protein (<1.0) mg/dL Total Protein (6.3-8.2) g/dL Albumin (3.5-5.0) g/dL Procalcitonin (0.02-0.09) ng/mL 10/15/23 10/15/23 10/15/23 Range/Units 15:50 16:41 20:06 WBC (3.8-10.6) k/uL RBC (4.30-5.90) m/uL Hgb (13.0-17.5) gm/dL Hct (39.0-53.0) % Neutrophils # (1.3-7.7) k/uL Monocytes # (0-1.0) k/uL Basophils # (0-0.2) k/uL APTT 79.4 H (22.0-30.0) sec Fibrinogen (200-500) mg/dL ABG pH (7.35-7.45) ABG pO2 (83-108) mmHg ABG HCO3 (21-25) mmol/L ABG Total CO2 (19-24) mmol/L ABG O2 Saturation (94-97) % Sodium (137-145) mmol/L Chloride (98-107) mmol/L Carbon Dioxide (22-30) mmol/L BUN (9-20) mg/dL Creatinine (0.66-1.25) mg/dL Glucose (74-99) mg/dL POC Glucose (mg/dL) 204 H 216 H (70-110) mg/dL Calcium (8.4-10.2) mg/dL Phosphorus (2.5-4.5) mg/dL Total Bilirubin (0.2-1.3) mg/dL AST (17-59) U/L ALT (4-49) U/L Lactate Dehydrogenase (120-246) U/L Creatine Kinase (55-170) U/L Troponin I (0.000-0.034) ng/mL C-Reactive Protein (<1.0) mg/dL Total Protein (6.3-8.2) g/dL Albumin (3.5-5.0) g/dL Procalcitonin (0.02-0.09) ng/mL 10/15/23 10/15/23 10/15/23 Range/Units 22:56 22:56 22:56 WBC 38.6 H (3.8-10.6) k/uL RBC 3.03 L (4.30-5.90) m/uL Hgb 9.3 L (13.0-17.5) gm/dL Hct 27.9 L (39.0-53.0) % Neutrophils # (1.3-7.7) k/uL Monocytes # (0-1.0) k/uL Basophils # (0-0.2) k/uL APTT (22.0-30.0) sec Fibrinogen 504 H (200-500) mg/dL ABG pH (7.35-7.45) ABG pO2 (83-108) mmHg ABG HCO3 (21-25) mmol/L ABG Total CO2 (19-24) mmol/L ABG O2 Saturation (94-97) % Sodium (137-145) mmol/L Chloride (98-107) mmol/L Carbon Dioxide (22-30) mmol/L BUN (9-20) mg/dL Creatinine (0.66-1.25) mg/dL Glucose (74-99) mg/dL POC Glucose (mg/dL) (70-110) mg/dL Calcium (8.4-10.2) mg/dL Phosphorus (2.5-4.5) mg/dL Total Bilirubin (0.2-1.3) mg/dL AST (17-59) U/L ALT (4-49) U/L Lactate Dehydrogenase 2285 H (120-246) U/L Creatine Kinase (55-170) U/L Troponin I (0.000-0.034) ng/mL C-Reactive Protein (<1.0) mg/dL Total Protein (6.3-8.2) g/dL Albumin (3.5-5.0) g/dL Procalcitonin (0.02-0.09) ng/mL 10/15/23 10/16/23 10/16/23 Range/Units 23:44 04:14 04:15 WBC 37.6 H (3.8-10.6) k/uL RBC 2.72 L (4.30-5.90) m/uL Hgb 8.7 L (13.0-17.5) gm/dL Hct 24.8 L (39.0-53.0) % Neutrophils # 29.7 H (1.3-7.7) k/uL Monocytes # 3.4 H (0-1.0) k/uL Basophils # 0.3 H (0-0.2) k/uL APTT (22.0-30.0) sec Fibrinogen (200-500) mg/dL ABG pH (7.35-7.45) ABG pO2 (83-108) mmHg ABG HCO3 (21-25) mmol/L ABG Total CO2 (19-24) mmol/L ABG O2 Saturation (94-97) % Sodium (137-145) mmol/L Chloride (98-107) mmol/L Carbon Dioxide (22-30) mmol/L BUN (9-20) mg/dL Creatinine (0.66-1.25) mg/dL Glucose (74-99) mg/dL POC Glucose (mg/dL) 199 H 183 H (70-110) mg/dL Calcium (8.4-10.2) mg/dL Phosphorus (2.5-4.5) mg/dL Total Bilirubin (0.2-1.3) mg/dL AST (17-59) U/L ALT (4-49) U/L Lactate Dehydrogenase (120-246) U/L Creatine Kinase (55-170) U/L Troponin I (0.000-0.034) ng/mL C-Reactive Protein (<1.0) mg/dL Total Protein (6.3-8.2) g/dL Albumin (3.5-5.0) g/dL Procalcitonin (0.02-0.09) ng/mL 10/16/23 10/16/23 Range/Units 04:15 05:16 WBC (3.8-10.6) k/uL RBC (4.30-5.90) m/uL Hgb (13.0-17.5) gm/dL Hct (39.0-53.0) % Neutrophils # (1.3-7.7) k/uL Monocytes # (0-1.0) k/uL Basophils # (0-0.2) k/uL APTT (22.0-30.0) sec Fibrinogen (200-500) mg/dL ABG pH 7.46 H (7.35-7.45) ABG pO2 129 H (83-108) mmHg ABG HCO3 32 H (21-25) mmol/L ABG Total CO2 33 H (19-24) mmol/L ABG O2 Saturation 98.0 H (94-97) % Sodium 129 L (137-145) mmol/L Chloride 95 L (98-107) mmol/L Carbon Dioxide 33 H (22-30) mmol/L BUN 43 H (9-20) mg/dL Creatinine 1.97 H (0.66-1.25) mg/dL Glucose 155 H (74-99) mg/dL POC Glucose (mg/dL) (70-110) mg/dL Calcium 6.9 L (8.4-10.2) mg/dL Phosphorus 4.6 H (2.5-4.5) mg/dL Total Bilirubin 1.6 H (0.2-1.3) mg/dL AST 491 H (17-59) U/L ALT 147 H (4-49) U/L Lactate Dehydrogenase (120-246) U/L Creatine Kinase (55-170) U/L Troponin I (0.000-0.034) ng/mL C-Reactive Protein (<1.0) mg/dL Total Protein 4.7 L (6.3-8.2) g/dL Albumin 2.0 L (3.5-5.0) g/dL Procalcitonin (0.02-0.09) ng/mL Assessment and Plan Plan: acute cardiac arrest, with ventricular tachycardia and fibrillation. The patient had initial cardiac arrest on the medical unit, resuscitated, brought into the intensive care and intubated on the mechanical ventilator. There was return of spontaneous circulation. Subsequently patient was found to have an acute lateral ST segment elevation myocardial infarction and he underwent emergent cardiac catheterization the patient was found to have acute total occlusion of the left circumflex proximally and the patient also had severe disease involving the right coronary artery. The patient underwent a complicated coronary intervention requiring Impella for hemodynamic support, stenting of the left main, circumflex, proximal and mid RCA. A total of 5 stents were inserted. Currently, receiving Impella for hemodynamic support and norepinephrine is running at 0.02 mcg/kg/min. He is still maintained on hemodynamic support utilizing Impella, P7 level of support. Ventricular tachycardia/fibrillation post acute myocardial infarction, current rhythm is sinus and the patient is off amiodarone and lidocaine Cardiogenic shock and the patient remains hypotensive. The patient has a left ventricular ejection fraction of around 20% The patient continues to have Impella and norepinephrine is running at 0. 02 mcg/kg/min. Acute hypoxic respiratory failure postcardiac arrest. The patient was recovering from the COVID-19 pneumonia and the patient had bilateral pulmonary infiltrates more so in the right midlung area and the findings on the chest x- ray from today are essentially stable. Currently intubated and mechanically ventilated. The blood gas from this morning was noted and the patient has adequate oxygenation. Chest x-ray findings are essentially stable Upper GI bleeding, related to various antiplatelet agents and anticoagulation. The patient was taken off the IV heparin. He remains on a combination of aspirin and Plavix Blood loss anemia hemoglobin is up down to 8.7 Acute kidney injury the creatinine is up to 1.9 and the patient is oliguric at this point in time. Acute febrile illness, could be related to cardiac arrest and this could be a sensory neurogenic fever Hypoxic encephalopathy consider that the patient had several episodes of cardiac arrest with varying downtime's, with a maximum downtime of around 2019 and the first time and then for the next 2 to that he had 20 min COVID-19 related pneumonia from which the patient was recovering. Noted prior to his cardiac arrest, the patient was on 5 L of O2 nasal cannula Right diaphragm elevation, and possible paresis/paralysis. This is likely chronic right hemidiaphragmatic elevation History of seizure disorder. History of hypothyroidism. History of hypertension. Previous history of tobacco use. Plan Continue ventilator support, no changes for today Continue normal saline at rate of 75 cc an hour Keep the Impella for hemodynamic support, P7 augmentation, mean arterial pressure is around 70. The concern is that the patient is currently off IV heparin. May need to remove also the Impella. This will be discussed with cardiology. Unfortunately, this will result into significant hemodynamic collapse. A trial of lower lower degrees of support with Impella has failed due to significant hypotension and increasing pressor requirements. Continue norepinephrine for blood pressure support Patient is currently off amiodarone and off lidocaine, the patient has been switched to oral amiodarone 400 mg p.o. twice a day Consult GI services available The patient IV Protonix Keep the patient n.p.o. Monitor hemoglobin repeat hemoglobin every 4 hours Will continue the antiplatelets for now as the patient has fresh cardiac stents Wean off the propofol and assess his mental status. The patient is currently on propofol at 50 mcg/kg/min. Echo of the heart was noted and the patient has an ejection fraction of 20% Keep the patient on a combination of aspirin and Brilinta IV cefepime as an empiric antibiotic coverage Sliding scale insulin coverage Keep the patient sedated. There are signs of hypoxic encephalopathy. Failed the sedation holiday yesterday. Monitor renal function as the patient is headed towards an acute kidney injury Very poor prognosis Awaiting further guidance from the family in terms of goals of treatment and CODE STATUS change Condition is very critical, prognosis poor based on above-mentioned comorbidities. Will continue to follow. This evaluation was done more than 30 minutes. Case was discussed also with Dr. Carreon, court recording monitor on the case. Time with Patient: Greater than 30
[2023-10-16 08:37] LABS: Glucose,Whole Blood 185 mg/dL (70-110)
[2023-10-16] MEDS ORDERED: ASPIRIN 81 MG PO SCH (09:00)
--- NOTE | 2023-10-16 09:30 | XR ---
EXAM: XR chest 1V portable CLINICAL INDICATION:Male, 77 years old with history of Tube placement; [facility] COMPARISON: 10/15/2023 and before TECHNIQUE: Chest single view. FINDINGS: Lines/tubes/devices: EKG leads, breathing apparatus and tubing over the upper chest/neck, can interfe re with interpretation. ET tube tip 4.1 cm above the emile. NG tube descends over the mediastinum wi th its tip appearing to terminate near the level of the diaphragm. Redemonstration of a curvilinear r adiodensity extending from the abdomen up into the left chest coursing over the aortic arch and desce nding on the right, likely some sort of aortic/cardiac assist device, though the type is uncertain. N evertheless, the position appears relatively stable, with a distal radiopaque marker and catheter wit h a curved tip projecting over the left ventricle and a more proximal radiopaque marker seen over the expected proximal aorta. Cardiomediastinum: Cardiac silhouette appears stable, heart size upper normal. Stable mediastinal silhouette. Vasculature: No increased pulmonary vasculature. Lungs/pleura: Interval slightly improved aeration of the lungs, with decreased conspicuity of left central lung opa city and slightly diminished alveolar and interstitial opacity in the right midlung zone, with signif icant residual especially of the latter. Diffuse coarsening of interstitial lung markings is again se en. Any possible underlying lung nodules are not well assessed by this study. No sizable pleural effu juaquin or pneumothorax demonstrated. Asymmetric elevation of the right hemidiaphragm is again seen. Bones/soft tissues: Bony thorax appears grossly unchanged as seen. Left-sided rib fractures were better seen on prior william dy. Degenerative changes of the spine and shoulders. Regional soft tissues appear unremarkable. IMPRESSION: * ET tube remains in good position. * NG tube tip appears near the level of the diaphragm. If this is to be kept, recommend several cent imeters of advancement. * Interval slightly improved aeration of the lungs, with decreased conspicuity of left central lung opacity and slightly diminished alveolar and interstitial opacity in the right midlung zone.
--- NOTE | 2023-10-16 10:19 | P.PN ---
Subjective Patient is seen for follow-up for hyponatremia. Patient was transferred to ICU after CODE BLUE. He had runs of V. tach and was taken to [facility] for acute ST elevation ND. Patient had 5 coronary stents placed. He had another cardiac arrest in the [facility]. This morning patient remains on the vent with FiO2 at 60%. Maintained on him follow-up He has had bleeding from the NG tube. Off of heparin Maintained on normal saline at 100 mL an hour Serum creatinine at 1.97. Urine output has improved to about 45-50 mL an hour. Objective - Vital Signs Vital signs: Vital Signs Temp 102.9 F H 10/16/23 04:00 Pulse 112 H 10/16/23 07:35 Resp 28 H 10/16/23 07:00 BP 93/59 10/16/23 02:00 Pulse Ox 98 10/16/23 07:00 FiO2 60 10/16/23 07:25 Intake & Output 10/15/23 10/16/23 10/16/23 18:59 06:59 18:59 Intake Total 2460.364 1882.291 119.063 Output Total 470 655 45 Balance 9203.066 7570.291 74.063 Weight 116 kg Intake: IV 1284 1133 9 A-line 66 72 6 Cefepime 2 gm In Sodium 200 Chloride 0.9% 100 ml @ 25 mls/hr IVPB Q8H [place] Rx#: [id number] Potassium Chloride 10 meq 100 In Water For Injection 1 100ml.bag @ 100 mls/hr IVPB Q1H [place] Rx#: [id number] Sodium Bicarb (1 Meq/ml) 33 36 3 12.5 ml In Dextrose 5% in Water 500 ml @ Per Protocol IV DIRECTED [place] Rx#:[id number] Sodium Chloride 0.9% 1, 825 825 000 ml In Empty Bag 1 bag @ 75 mls/hr IV .[id number] [place] Rx#:[id number] Tirofiban 12.5MG-250Ml Ns 260 250 ml @ 0.15 MCG/KG/MIN 26.37 mls/hr IV .Q9H29M [place] Rx#:[id number] Intake, IV Titration 1176.364 659.291 110.063 Amount Heparin Sod,Pork in 0.45% 237.181 NaCl 25,000 unit In 0.45 % NaCl 1 250ml.bag @ 6.83 UNITS/KG/HR 10.006 mls/ hr IV .Q24H [place] Rx#: [id number] Lidocaine-D5w Pmx 2G/ 244.5 250Ml 2,000 mg In Dextrose/Water 1 250ml. bag @ 1 MG/MIN 7.5 mls/hr IV .Q24H [place] Rx#: [id number] Norepinephrine 8 mg In 342.018 267.729 10.063 Sodium Chloride 0.9% 250 ml @ 0.03 MCG/KG/MIN 8. 504 mls/hr IV .Q24H [place] Rx#:[id number] Vasopressin 60 unit In 58.905 Sodium Chloride 0.9% 150 ml @ 0.03 UNITS/MIN 4.59 mls/hr IV .Q24H [facility] Rx#: [id number] propofoL 1,000 mg In 293.760 391.562 100 Empty Bag 1 bag @ 30 MCG/ KG/MIN 26.37 mls/hr IV . Q3H48M [place] Rx#:[id number] Oral 0 0 Other 90 Output: Gastric Drainage 200 250 Urine 270 405 45 Other: Voiding Method Indwelling Catheter Indwelling Catheter Indwelling Catheter ABP, PAP, CO, CI - Last Documented Arterial Blood Pressure 124/74 - Exam Patient is currently sedated and on the vent Examination of the heart S1 and S2 Examination of the lungs shows bilateral breath sounds are heard Abdomen is soft nontender Examination of lower extremity shows edema trace bilaterally [employer] exam cannot be performed - Labs CBC & Chem 7: 10/16/23 04:15 10/16/23 04:15 Labs: Abnormal Lab Results - Last 24 Hours (Table) 10/15/23 10/15/23 10/15/23 Range/Units 03:13 03:13 08:55 WBC (3.8-10.6) k/uL RBC (4.30-5.90) m/uL Hgb (13.0-17.5) gm/dL Hct (39.0-53.0) % Neutrophils # (1.3-7.7) k/uL Monocytes # (0-1.0) k/uL Basophils # (0-0.2) k/uL APTT (22.0-30.0) sec Fibrinogen (200-500) mg/dL ABG pH (7.35-7.45) ABG pO2 (83-108) mmHg ABG HCO3 (21-25) mmol/L ABG Total CO2 (19-24) mmol/L ABG O2 Saturation (94-97) % Sodium (137-145) mmol/L Chloride (98-107) mmol/L Carbon Dioxide (22-30) mmol/L BUN (9-20) mg/dL Creatinine (0.66-1.25) mg/dL Glucose (74-99) mg/dL POC Glucose (mg/dL) (70-110) mg/dL Calcium (8.4-10.2) mg/dL Phosphorus (2.5-4.5) mg/dL Total Bilirubin (0.2-1.3) mg/dL AST (17-59) U/L ALT (4-49) U/L Lactate Dehydrogenase (120-246) U/L Creatine Kinase 6723 H* (55-170) U/L Troponin I (0.000-0.034) ng/mL C-Reactive Protein 21.0 H (<1.0) mg/dL Total Protein (6.3-8.2) g/dL Albumin (3.5-5.0) g/dL Procalcitonin 2.08 H (0.02-0.09) ng/mL 10/15/23 10/15/23 10/15/23 Range/Units 08:55 08:55 12:44 WBC (3.8-10.6) k/uL RBC (4.30-5.90) m/uL Hgb (13.0-17.5) gm/dL Hct (39.0-53.0) % Neutrophils # (1.3-7.7) k/uL Monocytes # (0-1.0) k/uL Basophils # (0-0.2) k/uL APTT (22.0-30.0) sec Fibrinogen (200-500) mg/dL ABG pH (7.35-7.45) ABG pO2 (83-108) mmHg ABG HCO3 (21-25) mmol/L ABG Total CO2 (19-24) mmol/L ABG O2 Saturation (94-97) % Sodium (137-145) mmol/L Chloride (98-107) mmol/L Carbon Dioxide (22-30) mmol/L BUN (9-20) mg/dL Creatinine (0.66-1.25) mg/dL Glucose (74-99) mg/dL POC Glucose (mg/dL) 270 H (70-110) mg/dL Calcium (8.4-10.2) mg/dL Phosphorus (2.5-4.5) mg/dL Total Bilirubin (0.2-1.3) mg/dL AST (17-59) U/L ALT (4-49) U/L Lactate Dehydrogenase 1958 H (120-246) U/L Creatine Kinase (55-170) U/L Troponin I 282.000 H* (0.000-0.034) ng/mL C-Reactive Protein (<1.0) mg/dL Total Protein (6.3-8.2) g/dL Albumin (3.5-5.0) g/dL Procalcitonin (0.02-0.09) ng/mL 10/15/23 10/15/23 10/15/23 Range/Units 15:50 15:50 16:41 WBC (3.8-10.6) k/uL RBC (4.30-5.90) m/uL Hgb (13.0-17.5) gm/dL Hct (39.0-53.0) % Neutrophils # (1.3-7.7) k/uL Monocytes # (0-1.0) k/uL Basophils # (0-0.2) k/uL APTT 79.4 H (22.0-30.0) sec Fibrinogen (200-500) mg/dL ABG pH (7.35-7.45) ABG pO2 (83-108) mmHg ABG HCO3 (21-25) mmol/L ABG Total CO2 (19-24) mmol/L ABG O2 Saturation (94-97) % Sodium (137-145) mmol/L Chloride (98-107) mmol/L Carbon Dioxide (22-30) mmol/L BUN (9-20) mg/dL Creatinine (0.66-1.25) mg/dL Glucose (74-99) mg/dL POC Glucose (mg/dL) 204 H (70-110) mg/dL Calcium (8.4-10.2) mg/dL Phosphorus (2.5-4.5) mg/dL Total Bilirubin (0.2-1.3) mg/dL AST (17-59) U/L ALT (4-49) U/L Lactate Dehydrogenase 2327 H (120-246) U/L Creatine Kinase (55-170) U/L Troponin I (0.000-0.034) ng/mL C-Reactive Protein (<1.0) mg/dL Total Protein (6.3-8.2) g/dL Albumin (3.5-5.0) g/dL Procalcitonin (0.02-0.09) ng/mL 10/15/23 10/15/23 10/15/23 Range/Units 20:06 22:56 22:56 WBC 38.6 H (3.8-10.6) k/uL RBC 3.03 L (4.30-5.90) m/uL Hgb 9.3 L (13.0-17.5) gm/dL Hct 27.9 L (39.0-53.0) % Neutrophils # (1.3-7.7) k/uL Monocytes # (0-1.0) k/uL Basophils # (0-0.2) k/uL APTT (22.0-30.0) sec Fibrinogen 504 H (200-500) mg/dL ABG pH (7.35-7.45) ABG pO2 (83-108) mmHg ABG HCO3 (21-25) mmol/L ABG Total CO2 (19-24) mmol/L ABG O2 Saturation (94-97) % Sodium (137-145) mmol/L Chloride (98-107) mmol/L Carbon Dioxide (22-30) mmol/L BUN (9-20) mg/dL Creatinine (0.66-1.25) mg/dL Glucose (74-99) mg/dL POC Glucose (mg/dL) 216 H (70-110) mg/dL Calcium (8.4-10.2) mg/dL Phosphorus (2.5-4.5) mg/dL Total Bilirubin (0.2-1.3) mg/dL AST (17-59) U/L ALT (4-49) U/L Lactate Dehydrogenase (120-246) U/L Creatine Kinase (55-170) U/L Troponin I (0.000-0.034) ng/mL C-Reactive Protein (<1.0) mg/dL Total Protein (6.3-8.2) g/dL Albumin (3.5-5.0) g/dL Procalcitonin (0.02-0.09) ng/mL 10/15/23 10/15/23 10/16/23 Range/Units 22:56 23:44 04:14 WBC (3.8-10.6) k/uL RBC (4.30-5.90) m/uL Hgb (13.0-17.5) gm/dL Hct (39.0-53.0) % Neutrophils # (1.3-7.7) k/uL Monocytes # (0-1.0) k/uL Basophils # (0-0.2) k/uL APTT (22.0-30.0) sec Fibrinogen (200-500) mg/dL ABG pH (7.35-7.45) ABG pO2 (83-108) mmHg ABG HCO3 (21-25) mmol/L ABG Total CO2 (19-24) mmol/L ABG O2 Saturation (94-97) % Sodium (137-145) mmol/L Chloride (98-107) mmol/L Carbon Dioxide (22-30) mmol/L BUN (9-20) mg/dL Creatinine (0.66-1.25) mg/dL Glucose (74-99) mg/dL POC Glucose (mg/dL) 199 H 183 H (70-110) mg/dL Calcium (8.4-10.2) mg/dL Phosphorus (2.5-4.5) mg/dL Total Bilirubin (0.2-1.3) mg/dL AST (17-59) U/L ALT (4-49) U/L Lactate Dehydrogenase 2285 H (120-246) U/L Creatine Kinase (55-170) U/L Troponin I (0.000-0.034) ng/mL C-Reactive Protein (<1.0) mg/dL Total Protein (6.3-8.2) g/dL Albumin (3.5-5.0) g/dL Procalcitonin (0.02-0.09) ng/mL 10/16/23 10/16/23 10/16/23 Range/Units 04:15 04:15 05:16 WBC 37.6 H (3.8-10.6) k/uL RBC 2.72 L (4.30-5.90) m/uL Hgb 8.7 L (13.0-17.5) gm/dL Hct 24.8 L (39.0-53.0) % Neutrophils # 29.7 H (1.3-7.7) k/uL Monocytes # 3.4 H (0-1.0) k/uL Basophils # 0.3 H (0-0.2) k/uL APTT (22.0-30.0) sec Fibrinogen (200-500) mg/dL ABG pH 7.46 H (7.35-7.45) ABG pO2 129 H (83-108) mmHg ABG HCO3 32 H (21-25) mmol/L ABG Total CO2 33 H (19-24) mmol/L ABG O2 Saturation 98.0 H (94-97) % Sodium 129 L (137-145) mmol/L Chloride 95 L (98-107) mmol/L Carbon Dioxide 33 H (22-30) mmol/L BUN 43 H (9-20) mg/dL Creatinine 1.97 H (0.66-1.25) mg/dL Glucose 155 H (74-99) mg/dL POC Glucose (mg/dL) (70-110) mg/dL Calcium 6.9 L (8.4-10.2) mg/dL Phosphorus 4.6 H (2.5-4.5) mg/dL Total Bilirubin 1.6 H (0.2-1.3) mg/dL AST 491 H (17-59) U/L ALT 147 H (4-49) U/L Lactate Dehydrogenase (120-246) U/L Creatine Kinase (55-170) U/L Troponin I (0.000-0.034) ng/mL C-Reactive Protein (<1.0) mg/dL Total Protein 4.7 L (6.3-8.2) g/dL Albumin 2.0 L (3.5-5.0) g/dL Procalcitonin (0.02-0.09) ng/mL 10/16/23 10/16/23 Range/Units 07:01 08:30 WBC (3.8-10.6) k/uL RBC (4.30-5.90) m/uL Hgb (13.0-17.5) gm/dL Hct (39.0-53.0) % Neutrophils # (1.3-7.7) k/uL Monocytes # (0-1.0) k/uL Basophils # (0-0.2) k/uL APTT (22.0-30.0) sec Fibrinogen (200-500) mg/dL ABG pH (7.35-7.45) ABG pO2 (83-108) mmHg ABG HCO3 (21-25) mmol/L ABG Total CO2 (19-24) mmol/L ABG O2 Saturation (94-97) % Sodium (137-145) mmol/L Chloride (98-107) mmol/L Carbon Dioxide (22-30) mmol/L BUN (9-20) mg/dL Creatinine (0.66-1.25) mg/dL Glucose (74-99) mg/dL POC Glucose (mg/dL) 185 H (70-110) mg/dL Calcium (8.4-10.2) mg/dL Phosphorus (2.5-4.5) mg/dL Total Bilirubin (0.2-1.3) mg/dL AST (17-59) U/L ALT (4-49) U/L Lactate Dehydrogenase 1948 H (120-246) U/L Creatine Kinase (55-170) U/L Troponin I (0.000-0.034) ng/mL C-Reactive Protein (<1.0) mg/dL Total Protein (6.3-8.2) g/dL Albumin (3.5-5.0) g/dL Procalcitonin (0.02-0.09) ng/mL Assessment and Plan Assessment: 1. Hyponatremia. Associated with urine retention and hypervolemia. Patient was diuresed initially. Currently maintained on normal saline postcardiac arrest. 2. Acute kidney injury, initially secondary to urine retention however currently in ATN. Nonoliguric secondary to hypotension and cardiac arrest. No proteinuria on UA. No hydronephrosis noted on kidney ultrasound. 3. Urinary retention status post Rosales catheter placement. On Flomax. Urology following. 4. Benign hypertension. Controlled. 5. Hypokalemia from poor intake and postobstructive diuresis. Magnesium normal. 6. Rhabdomyolysis secondary to fall. 7. Status postcardiac arrest x [address] elevation [place] status post 5 coronary stents placement on 10/14/2023. 9. GI bleed Plan: Continue with normal saline Antiarrhythmic medications as per cardiology Repeat labs in a.m.
[2023-10-16] MEDS ORDERED: VANCOMYCIN IV PER PHARMACY 1 EACH MISC MISCELLANE PRN (10:27)
--- NOTE | 2023-10-16 10:27 | P.PN ---
Subjective Progress Note Date: 10/16/23 Principal diagnosis: Reason for follow-up is COVID-19 and pneumonia Patient is a 77-year-old male with a past medical history significant for hypertension seizure disorder hypothyroidism patient has been brought into the hospital for evaluation of generalized weakness patient was noticed to be on the bathroom floor after apparently patient fell down, patient did tested positive for COVID-19, initial chest x-ray reported negative.Patient did have significant change in his clinical condition and did have a cardiac arrest on 10/14/2023 the patient was taken to the [facility] and did have PTCA and stenting x 5 subsequently patient has been admitted to ICU. On today's visit that is 10/16/2023, the patient did spike another fever of 102.9 F around 4 AM requiring cooling blanket per the nursing staff the patient continues to be pressor dependent FiO2 is currently at 60% no significant pleural secretions through the ET or any other changes reported by the nursing staff. Patient white count slightly down to 37.6 compared to 38.6 yesterday creatinine is 1.97 cultures obtained yesterday are currently pending Objective - Vital Signs Vital signs: Vital Signs Temp 102.9 F H 10/16/23 04:00 Pulse 112 H 10/16/23 07:35 Resp 28 H 10/16/23 07:00 BP 93/59 10/16/23 02:00 Pulse Ox 98 10/16/23 07:00 FiO2 60 10/16/23 07:25 Intake & Output 10/15/23 10/16/23 10/16/23 18:59 06:59 18:59 Intake Total 2460.364 1882.291 119.063 Output Total 470 655 45 Balance 7400.113 0237.291 74.063 Weight 116 kg Intake: IV 1284 1133 9 A-line 66 72 6 Cefepime 2 gm In Sodium 200 Chloride 0.9% 100 ml @ 25 mls/hr IVPB Q8H [facility] Rx#: [id number] Potassium Chloride 10 meq 100 In Water For Injection 1 100ml.bag @ 100 mls/hr IVPB Q1H [facility] Rx#: [id number] Sodium Bicarb (1 Meq/ml) 33 36 3 12.5 ml In Dextrose 5% in Water 500 ml @ Per Protocol IV DIRECTED [facility] Rx#:[id number] Sodium Chloride 0.9% 1, 825 825 000 ml In Empty Bag 1 bag @ 75 mls/hr IV .[id number] [facility] Rx#:[id number] Tirofiban 12.5MG-250Ml Ns 260 250 ml @ 0.15 MCG/KG/MIN 26.37 mls/hr IV .Q9H29M [facility] Rx#:[id number] Intake, IV Titration 1176.364 659.291 110.063 Amount Heparin Sod,Pork in 0.45% 237.181 NaCl 25,000 unit In 0.45 % NaCl 1 250ml.bag @ 6.83 UNITS/KG/HR 10.006 mls/ hr IV .Q24H [place] Rx#: [id number] Lidocaine-D5w Pmx 2G/ 244.5 250Ml 2,000 mg In Dextrose/Water 1 250ml. bag @ 1 MG/MIN 7.5 mls/hr IV .Q24H [facility] Rx#: [id number] Norepinephrine 8 mg In 342.018 267.729 10.063 Sodium Chloride 0.9% 250 ml @ 0.03 MCG/KG/MIN 8. 504 mls/hr IV .Q24H [facility] Rx#:[id number] Vasopressin 60 unit In 58.905 Sodium Chloride 0.9% 150 ml @ 0.03 UNITS/MIN 4.59 mls/hr IV .Q24H [facility] Rx#: [id number] propofoL 1,000 mg In 293.760 391.562 100 Empty Bag 1 bag @ 30 MCG/ KG/MIN 26.37 mls/hr IV . Q3H48M [facility] Rx#:[id number] Oral 0 0 Other 90 Output: Gastric Drainage 200 250 Urine 270 405 45 Other: Voiding Method Indwelling Catheter Indwelling Catheter Indwelling Catheter ABP, PAP, CO, CI - Last Documented Arterial Blood Pressure 124/74 - Exam GENERAL DESCRIPTION: An elderly male intubated on the vent RESPIRATORY SYSTEM: Unlabored breathing , decreased breath sounds at bases HEART: S1 S2 regular rate and rhythm , ABDOMEN: Soft , no tenderness EXTREMITIES: No edema feet - Labs CBC & Chem 7: 10/16/23 04:15 10/16/23 04:15 Labs: Abnormal Lab Results - Last 24 Hours (Table) 10/15/23 10/15/23 10/15/23 Range/Units 03:13 03:13 08:55 WBC (3.8-10.6) k/uL RBC (4.30-5.90) m/uL Hgb (13.0-17.5) gm/dL Hct (39.0-53.0) % Neutrophils # (1.3-7.7) k/uL Monocytes # (0-1.0) k/uL Basophils # (0-0.2) k/uL APTT (22.0-30.0) sec Fibrinogen (200-500) mg/dL ABG pH (7.35-7.45) ABG pO2 (83-108) mmHg ABG HCO3 (21-25) mmol/L ABG Total CO2 (19-24) mmol/L ABG O2 Saturation (94-97) % Sodium (137-145) mmol/L Chloride (98-107) mmol/L Carbon Dioxide (22-30) mmol/L BUN (9-20) mg/dL Creatinine (0.66-1.25) mg/dL Glucose (74-99) mg/dL POC Glucose (mg/dL) (70-110) mg/dL Calcium (8.4-10.2) mg/dL Phosphorus (2.5-4.5) mg/dL Total Bilirubin (0.2-1.3) mg/dL AST (17-59) U/L ALT (4-49) U/L Lactate Dehydrogenase (120-246) U/L Creatine Kinase 6723 H* (55-170) U/L Troponin I (0.000-0.034) ng/mL C-Reactive Protein 21.0 H (<1.0) mg/dL Total Protein (6.3-8.2) g/dL Albumin (3.5-5.0) g/dL Procalcitonin 2.08 H (0.02-0.09) ng/mL 10/15/23 10/15/23 10/15/23 Range/Units 08:55 08:55 12:44 WBC (3.8-10.6) k/uL RBC (4.30-5.90) m/uL Hgb (13.0-17.5) gm/dL Hct (39.0-53.0) % Neutrophils # (1.3-7.7) k/uL Monocytes # (0-1.0) k/uL Basophils # (0-0.2) k/uL APTT (22.0-30.0) sec Fibrinogen (200-500) mg/dL ABG pH (7.35-7.45) ABG pO2 (83-108) mmHg ABG HCO3 (21-25) mmol/L ABG Total CO2 (19-24) mmol/L ABG O2 Saturation (94-97) % Sodium (137-145) mmol/L Chloride (98-107) mmol/L Carbon Dioxide (22-30) mmol/L BUN (9-20) mg/dL Creatinine (0.66-1.25) mg/dL Glucose (74-99) mg/dL POC Glucose (mg/dL) 270 H (70-110) mg/dL Calcium (8.4-10.2) mg/dL Phosphorus (2.5-4.5) mg/dL Total Bilirubin (0.2-1.3) mg/dL AST (17-59) U/L ALT (4-49) U/L Lactate Dehydrogenase 1958 H (120-246) U/L Creatine Kinase (55-170) U/L Troponin I 282.000 H* (0.000-0.034) ng/mL C-Reactive Protein (<1.0) mg/dL Total Protein (6.3-8.2) g/dL Albumin (3.5-5.0) g/dL Procalcitonin (0.02-0.09) ng/mL 10/15/23 10/15/23 10/15/23 Range/Units 15:50 15:50 16:41 WBC (3.8-10.6) k/uL RBC (4.30-5.90) m/uL Hgb (13.0-17.5) gm/dL Hct (39.0-53.0) % Neutrophils # (1.3-7.7) k/uL Monocytes # (0-1.0) k/uL Basophils # (0-0.2) k/uL APTT 79.4 H (22.0-30.0) sec Fibrinogen (200-500) mg/dL ABG pH (7.35-7.45) ABG pO2 (83-108) mmHg ABG HCO3 (21-25) mmol/L ABG Total CO2 (19-24) mmol/L ABG O2 Saturation (94-97) % Sodium (137-145) mmol/L Chloride (98-107) mmol/L Carbon Dioxide (22-30) mmol/L BUN (9-20) mg/dL Creatinine (0.66-1.25) mg/dL Glucose (74-99) mg/dL POC Glucose (mg/dL) 204 H (70-110) mg/dL Calcium (8.4-10.2) mg/dL Phosphorus (2.5-4.5) mg/dL Total Bilirubin (0.2-1.3) mg/dL AST (17-59) U/L ALT (4-49) U/L Lactate Dehydrogenase 2327 H (120-246) U/L Creatine Kinase (55-170) U/L Troponin I (0.000-0.034) ng/mL C-Reactive Protein (<1.0) mg/dL Total Protein (6.3-8.2) g/dL Albumin (3.5-5.0) g/dL Procalcitonin (0.02-0.09) ng/mL 10/15/23 10/15/23 10/15/23 Range/Units 20:06 22:56 22:56 WBC 38.6 H (3.8-10.6) k/uL RBC 3.03 L (4.30-5.90) m/uL Hgb 9.3 L (13.0-17.5) gm/dL Hct 27.9 L (39.0-53.0) % Neutrophils # (1.3-7.7) k/uL Monocytes # (0-1.0) k/uL Basophils # (0-0.2) k/uL APTT (22.0-30.0) sec Fibrinogen 504 H (200-500) mg/dL ABG pH (7.35-7.45) ABG pO2 (83-108) mmHg ABG HCO3 (21-25) mmol/L ABG Total CO2 (19-24) mmol/L ABG O2 Saturation (94-97) % Sodium (137-145) mmol/L Chloride (98-107) mmol/L Carbon Dioxide (22-30) mmol/L BUN (9-20) mg/dL Creatinine (0.66-1.25) mg/dL Glucose (74-99) mg/dL POC Glucose (mg/dL) 216 H (70-110) mg/dL Calcium (8.4-10.2) mg/dL Phosphorus (2.5-4.5) mg/dL Total Bilirubin (0.2-1.3) mg/dL AST (17-59) U/L ALT (4-49) U/L Lactate Dehydrogenase (120-246) U/L Creatine Kinase (55-170) U/L Troponin I (0.000-0.034) ng/mL C-Reactive Protein (<1.0) mg/dL Total Protein (6.3-8.2) g/dL Albumin (3.5-5.0) g/dL Procalcitonin (0.02-0.09) ng/mL 10/15/23 10/15/23 10/16/23 Range/Units 22:56 23:44 04:14 WBC (3.8-10.6) k/uL RBC (4.30-5.90) m/uL Hgb (13.0-17.5) gm/dL Hct (39.0-53.0) % Neutrophils # (1.3-7.7) k/uL Monocytes # (0-1.0) k/uL Basophils # (0-0.2) k/uL APTT (22.0-30.0) sec Fibrinogen (200-500) mg/dL ABG pH (7.35-7.45) ABG pO2 (83-108) mmHg ABG HCO3 (21-25) mmol/L ABG Total CO2 (19-24) mmol/L ABG O2 Saturation (94-97) % Sodium (137-145) mmol/L Chloride (98-107) mmol/L Carbon Dioxide (22-30) mmol/L BUN (9-20) mg/dL Creatinine (0.66-1.25) mg/dL Glucose (74-99) mg/dL POC Glucose (mg/dL) 199 H 183 H (70-110) mg/dL Calcium (8.4-10.2) mg/dL Phosphorus (2.5-4.5) mg/dL Total Bilirubin (0.2-1.3) mg/dL AST (17-59) U/L ALT (4-49) U/L Lactate Dehydrogenase 2285 H (120-246) U/L Creatine Kinase (55-170) U/L Troponin I (0.000-0.034) ng/mL C-Reactive Protein (<1.0) mg/dL Total Protein (6.3-8.2) g/dL Albumin (3.5-5.0) g/dL Procalcitonin (0.02-0.09) ng/mL 10/16/23 10/16/23 10/16/23 Range/Units 04:15 04:15 05:16 WBC 37.6 H (3.8-10.6) k/uL RBC 2.72 L (4.30-5.90) m/uL Hgb 8.7 L (13.0-17.5) gm/dL Hct 24.8 L (39.0-53.0) % Neutrophils # 29.7 H (1.3-7.7) k/uL Monocytes # 3.4 H (0-1.0) k/uL Basophils # 0.3 H (0-0.2) k/uL APTT (22.0-30.0) sec Fibrinogen (200-500) mg/dL ABG pH 7.46 H (7.35-7.45) ABG pO2 129 H (83-108) mmHg ABG HCO3 32 H (21-25) mmol/L ABG Total CO2 33 H (19-24) mmol/L ABG O2 Saturation 98.0 H (94-97) % Sodium 129 L (137-145) mmol/L Chloride 95 L (98-107) mmol/L Carbon Dioxide 33 H (22-30) mmol/L BUN 43 H (9-20) mg/dL Creatinine 1.97 H (0.66-1.25) mg/dL Glucose 155 H (74-99) mg/dL POC Glucose (mg/dL) (70-110) mg/dL Calcium 6.9 L (8.4-10.2) mg/dL Phosphorus 4.6 H (2.5-4.5) mg/dL Total Bilirubin 1.6 H (0.2-1.3) mg/dL AST 491 H (17-59) U/L ALT 147 H (4-49) U/L Lactate Dehydrogenase (120-246) U/L Creatine Kinase (55-170) U/L Troponin I (0.000-0.034) ng/mL C-Reactive Protein (<1.0) mg/dL Total Protein 4.7 L (6.3-8.2) g/dL Albumin 2.0 L (3.5-5.0) g/dL Procalcitonin (0.02-0.09) ng/mL 10/16/23 10/16/23 Range/Units 07:01 08:30 WBC (3.8-10.6) k/uL RBC (4.30-5.90) m/uL Hgb (13.0-17.5) gm/dL Hct (39.0-53.0) % Neutrophils # (1.3-7.7) k/uL Monocytes # (0-1.0) k/uL Basophils # (0-0.2) k/uL APTT (22.0-30.0) sec Fibrinogen (200-500) mg/dL ABG pH (7.35-7.45) ABG pO2 (83-108) mmHg ABG HCO3 (21-25) mmol/L ABG Total CO2 (19-24) mmol/L ABG O2 Saturation (94-97) % Sodium (137-145) mmol/L Chloride (98-107) mmol/L Carbon Dioxide (22-30) mmol/L BUN (9-20) mg/dL Creatinine (0.66-1.25) mg/dL Glucose (74-99) mg/dL POC Glucose (mg/dL) 185 H (70-110) mg/dL Calcium (8.4-10.2) mg/dL Phosphorus (2.5-4.5) mg/dL Total Bilirubin (0.2-1.3) mg/dL AST (17-59) U/L ALT (4-49) U/L Lactate Dehydrogenase 1948 H (120-246) U/L Creatine Kinase (55-170) U/L Troponin I (0.000-0.034) ng/mL C-Reactive Protein (<1.0) mg/dL Total Protein (6.3-8.2) g/dL Albumin (3.5-5.0) g/dL Procalcitonin (0.02-0.09) ng/mL Assessment and Plan (1) COVID-19 Current Visit: Yes Status: Acute Code(s): U07.1 - COVID-19 SNOMED Code(s): 733761255 (2) Sepsis Current Visit: Yes Status: Acute Code(s): A41.9 - SEPSIS, UNSPECIFIED ORGANISM SNOMED Code(s): 79393634 (3) Pneumonia Current Visit: Yes Status: Acute Code(s): J18.9 - PNEUMONIA, UNSPECIFIED ORGANISM SNOMED Code(s): 654501322 (4) Penicillin allergy Current Visit: Yes Status: Acute Code(s): Z88.0 - ALLERGY STATUS TO PENICILLIN SNOMED Code(s): 35672961 (5) Thrush, oral Current Visit: Yes Status: Acute Code(s): B37.0 - CANDIDAL STOMATITIS SNOMED Code(s): 05561688 Plan: 1patient did have significant changes in clinical condition he did have a cardiac arrest on 10/14/2023 Patient Was Taken to the [facility] status post PTCA and stenting x 2 patient did have a new fever and is requiring pressor support 2- blood cultures CRP procalcitonin sputum for Gram stain culture has been obtained and cultures are currently pending 3-patient condition remains to be critical we will broaden his antibiotic coverage to meropenem and vancomycin cannot use Zyvox because of drug interaction while waiting for the culture to finalize, prognosis remains to be guarded Dictation was produced using [employer] software. please excuse any grammatical, word or spelling errors. Time with Patient: Greater than 30
--- NOTE | 2023-10-16 10:35 | XR ---
EXAM: XR chest 1V portable CLINICAL INDICATION:Male, 77 years old with history of OG placement verification; [facility] COMPARISON: Earlier today 6:22 AM, and older exams TECHNIQUE: Chest single view. FINDINGS: Exam is centered over the lower chest/left upper quadrant for verification of OG placement. Portions of the chest are excluded. Lines/tubes/devices: Visualized ET tube and aortic device appear stable in position. The OG tube has been advanced, tip and sidehole now project over the gastric body. EKG leads and other extrinsic stru ctures overlie the chest. Remainder of exam is essentially unchanged from recent prior. Bilateral lung infiltrates are redemons trated. IMPRESSION: The OG tube has been advanced, tip and sidehole now project over the gastric body.
[2023-10-16] MEDS: VANCOMYCIN 1,750 MG in SODIUM CHLORIDE 0.9% 500 ML 500 ML IVPB SCH (11:38)
[2023-10-16 12:21] LABS: Glucose,Whole Blood 185 mg/dL (70-110)
[2023-10-16 12:27] LABS: HCT 22.7 % (39.0-53.0); HGB 7.6 gm/dL (13.0-17.5); MCH 30.9 pg (25.0-35.0); MCHC 33.4 g/dL (31.0-37.0); MCV 92.5 fL (80.0-100.0); Mean Platelet Volume 10.5; Platelet Count 152 k/uL (150-450); RBC 2.45 m/uL (4.30-5.90); RDW 13.7 % (11.5-15.5); WBC 33.6 k/uL (3.8-10.6)
--- NOTE | 2023-10-16 16:12 | P.PN ---
Subjective Progress Note Date: 10/16/23 Principal diagnosis: ACS This is a 77-year-old gentleman with history of hypertension and dyslipidemia and seizure disorder and thyroid disease and prior history of smoking. The patient was admitted to the hospital initially with a change in mental status after he fell in the bathroom at home. The patient lives with his grandson. We consulted to see the patient because of cardiac arrest with ventricular fibrillation/ventricular tachycardia where the patient subsequently received CPR according to the nurse taking care of him for about 12 hours and then he was intubated and he was brought to the intensive care unit. The history was taken from the chart because the patient was already intubated when he was seen in the intensive care unit. He was found on the floor by his family for several hours. He was weak. He attempted to get up but he could not. EMS was called and the patient was brought to the emergency department by ambulance. He underwent further investigation including CT scan of the brain which showed no acute abnormalities and EKG showed sinus mechanism with nonspecific ST and T wave abnormalities. Hemoglobin was within normal limits. Electrolytes were within normal limits beside hyponatremia. The chest x-ray showed no acute abnormalities beside elevated right hemidiaphragm. He was diagnosed with acute hypoxic respiratory failure and also he had recent coronavirus infection. During his hospital stay he had a cardiac arrest with V-fib. He was converted to normal sinus mechanism after he received CPR and received amiodarone and lidocaine. I did review the EKG when I I was called to see the patient and that showed lateral ST segment elevation myocardial infarction. STEMI code was called. The patient was brought to the cardiac [facility] immediately and he underwent an emergent heart catheterization and that revealed severe disease involving the ostial and proximal right coronary artery with occluded left circumflex appeared to be an acute occlusion. The lesion in the left circumflex was extremely complex and was very hard to cross. During the procedure he had another episode of cardiac arrest with pulseless electrical activities and we lost the floor in the left coronary system. The patient ended having stenting in the left main to LAD and stenting of the obtuse marginal branch and stenting of the right coronary artery and Impella CP was placed to support the pressure. Please refer to the procedure note for further details. The examination showed distant heart sounds with regular rhythm and soft nontender abdomen and diminished breathing sounds bilaterally. No edema was noted in the lower extremities October 15, 2023 The patient was seen and evaluated this morning. He continues to be intubated on mechanical ventilation. The chest x-ray was reviewed. He is off vasopressors but continues to be on norepinephrine which is in process to weaned from norepinephrine. He continues to be on heparin and Aggrastat. He is on dual antiplatelet therapy along with a statin. Hemodynamically he is overall slightly better. He has been maintaining normal sinus mechanism. From the cardiovascular standpoint of view I will continue the current medical regimen and switch the patient to oral amiodarone and DC lidocaine and stop Aggrastat at 18 hours. Apparently he cannot be on any beta-yazmin or FLORIN inhibitor at this point giving the low blood pressure. The examination is remarkable for regular rhythm with a distant heart sounds and diminished breathing sounds bilaterally and he does have a good Doppler signal in the left foot. October 16, 2023 The patient was seen and evaluated this morning. He continues to be on norepinephrine only at the small dose. His hemoglobin dropped to around 7 with ongoing to give the patient 1 unit of packed RBC hopefully we can wean him from norepinephrine and also hopefully it will improve the section of the arm on the Impella. Neurologically he is slightly better after the sedation was weaned. He continues to be on dual antiplatelet therapy. He continues to be on amiodarone. He continues to be on statin. Urine output has been marginal. I had a long discussion with the family in details about the condition and about the prognosis overall and they are in full understanding the poor prognosis overall. The examination is remarkable for regular rhythm with a distant heart sounds and diminished breathing sounds bilaterally and bilateral lower extremities edema noted. We had to stop the heparin because of gastrointestinal bleeding. The last episode of gastrointestinal bleeding was earlier this morning. 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 Severe disease involving the right coronary artery Cardiac arrest as described above Multiple risk factors including hypertension and dyslipidemia History of seizure Cardiogenic shock gastrointestinal bleeding Plan Continue the current medical regimen Continue dual antiplatelet therapy and statin Continue amiodarone orally Give the patient 1 unit of packed RBC Continue Impella support Continue holding any anticoagulation Follow-up with the patient Objective - Vital Signs Vital signs: Vital Signs Temp 99.5 F 10/16/23 12:00 Pulse 100 10/16/23 15:45 Resp 27 H 10/16/23 15:45 BP 93/59 10/16/23 02:00 Pulse Ox 97 10/16/23 15:45 FiO2 60 10/16/23 15:17 Intake & Output 10/15/23 10/16/23 10/16/23 18:59 06:59 18:59 Intake Total 2460.364 8609.191 1065.063 Output Total 470 655 555 Balance 5189.131 6446.291 602.063 Weight 116 kg Intake: IV 1284 1133 447 A-line 66 72 48 Cefepime 2 gm In Sodium 200 Chloride 0.9% 100 ml @ 25 mls/hr IVPB Q8H [place] Rx#: [id number] Potassium Chloride 10 meq 100 In Water For Injection 1 100ml.bag @ 100 mls/hr IVPB Q1H [facility] Rx#: [id number] Sodium Bicarb (1 Meq/ml) 33 36 24 12.5 ml In Dextrose 5% in Water 500 ml @ Per Protocol IV DIRECTED [facility] Rx#:[id number] Sodium Chloride 0.9% 1, 825 825 375 000 ml In Empty Bag 1 bag @ 75 mls/hr IV .S63H19N [facility] Rx#:[id number] Tirofiban 12.5MG-250Ml Ns 260 250 ml @ 0.15 MCG/KG/MIN 26.37 mls/hr IV .Q9H29M [facility] Rx#:[id number] Intake, IV Titration 1176.364 659.291 710.063 Amount Heparin Sod,Pork in 0.45% 237.181 NaCl 25,000 unit In 0.45 % NaCl 1 250ml.bag @ 6.83 UNITS/KG/HR 10.006 mls/ hr IV .Q24H [place] Rx#: [id number] Lidocaine-D5w Pmx 2G/ 244.5 250Ml 2,000 mg In Dextrose/Water 1 250ml. bag @ 1 MG/MIN 7.5 mls/hr IV .Q24H [facility] Rx#: [id number] Norepinephrine 8 mg In 342.018 267.729 10.063 Sodium Chloride 0.9% 250 ml @ 0.03 MCG/KG/MIN 8. 504 mls/hr IV .Q24H [facility] Rx#:[id number] Vancomycin 1,750 mg In 500 Sodium Chloride 0.9% 500 ml 500 ml @ 167 mls/hr IVPB Q24HR [place] Rx#: [id number] Vasopressin 60 unit In 58.905 Sodium Chloride 0.9% 150 ml @ 0.03 UNITS/MIN 4.59 mls/hr IV .Q24H [facility] Rx#: [id number] propofoL 1,000 mg In 293.760 391.562 200 Empty Bag 1 bag @ 30 MCG/ KG/MIN 26.37 mls/hr IV . Q3H48M [facility] Rx#:[id number] Oral 0 0 Other 90 Output: Gastric Drainage 200 250 130 Urine 270 405 425 Other: Voiding Method Indwelling Catheter Indwelling Catheter Indwelling Catheter ABP, PAP, CO, CI - Last Documented Arterial Blood Pressure 102/58 - Labs CBC & Chem 7: 10/16/23 12:15 10/16/23 04:15 Labs: Abnormal Lab Results - Last 24 Hours (Table) 10/15/23 10/15/23 10/15/23 Range/Units 03:13 15:50 15:50 WBC (3.8-10.6) k/uL RBC (4.30-5.90) m/uL Hgb (13.0-17.5) gm/dL Hct (39.0-53.0) % Neutrophils # (1.3-7.7) k/uL Monocytes # (0-1.0) k/uL Basophils # (0-0.2) k/uL APTT 79.4 H (22.0-30.0) sec Fibrinogen (200-500) mg/dL ABG pH (7.35-7.45) ABG pO2 (83-108) mmHg ABG HCO3 (21-25) mmol/L ABG Total CO2 (19-24) mmol/L ABG O2 Saturation (94-97) % Sodium (137-145) mmol/L Chloride (98-107) mmol/L Carbon Dioxide (22-30) mmol/L BUN (9-20) mg/dL Creatinine (0.66-1.25) mg/dL Glucose (74-99) mg/dL POC Glucose (mg/dL) (70-110) mg/dL Calcium (8.4-10.2) mg/dL Phosphorus (2.5-4.5) mg/dL Total Bilirubin (0.2-1.3) mg/dL AST (17-59) U/L ALT (4-49) U/L Lactate Dehydrogenase 2327 H (120-246) U/L Total Protein (6.3-8.2) g/dL Albumin (3.5-5.0) g/dL Procalcitonin 2.08 H (0.02-0.09) ng/mL 10/15/23 10/15/23 10/15/23 Range/Units 16:41 20:06 22:56 WBC (3.8-10.6) k/uL RBC (4.30-5.90) m/uL Hgb (13.0-17.5) gm/dL Hct (39.0-53.0) % Neutrophils # (1.3-7.7) k/uL Monocytes # (0-1.0) k/uL Basophils # (0-0.2) k/uL APTT (22.0-30.0) sec Fibrinogen 504 H (200-500) mg/dL ABG pH (7.35-7.45) ABG pO2 (83-108) mmHg ABG HCO3 (21-25) mmol/L ABG Total CO2 (19-24) mmol/L ABG O2 Saturation (94-97) % Sodium (137-145) mmol/L Chloride (98-107) mmol/L Carbon Dioxide (22-30) mmol/L BUN (9-20) mg/dL Creatinine (0.66-1.25) mg/dL Glucose (74-99) mg/dL POC Glucose (mg/dL) 204 H 216 H (70-110) mg/dL Calcium (8.4-10.2) mg/dL Phosphorus (2.5-4.5) mg/dL Total Bilirubin (0.2-1.3) mg/dL AST (17-59) U/L ALT (4-49) U/L Lactate Dehydrogenase (120-246) U/L Total Protein (6.3-8.2) g/dL Albumin (3.5-5.0) g/dL Procalcitonin (0.02-0.09) ng/mL 10/15/23 10/15/23 10/15/23 Range/Units 22:56 22:56 23:44 WBC 38.6 H (3.8-10.6) k/uL RBC 3.03 L (4.30-5.90) m/uL Hgb 9.3 L (13.0-17.5) gm/dL Hct 27.9 L (39.0-53.0) % Neutrophils # (1.3-7.7) k/uL Monocytes # (0-1.0) k/uL Basophils # (0-0.2) k/uL APTT (22.0-30.0) sec Fibrinogen (200-500) mg/dL ABG pH (7.35-7.45) ABG pO2 (83-108) mmHg ABG HCO3 (21-25) mmol/L ABG Total CO2 (19-24) mmol/L ABG O2 Saturation (94-97) % Sodium (137-145) mmol/L Chloride (98-107) mmol/L Carbon Dioxide (22-30) mmol/L BUN (9-20) mg/dL Creatinine (0.66-1.25) mg/dL Glucose (74-99) mg/dL POC Glucose (mg/dL) 199 H (70-110) mg/dL Calcium (8.4-10.2) mg/dL Phosphorus (2.5-4.5) mg/dL Total Bilirubin (0.2-1.3) mg/dL AST (17-59) U/L ALT (4-49) U/L Lactate Dehydrogenase 2285 H (120-246) U/L Total Protein (6.3-8.2) g/dL Albumin (3.5-5.0) g/dL Procalcitonin (0.02-0.09) ng/mL 10/16/23 10/16/23 10/16/23 Range/Units 04:14 04:15 04:15 WBC 37.6 H (3.8-10.6) k/uL RBC 2.72 L (4.30-5.90) m/uL Hgb 8.7 L (13.0-17.5) gm/dL Hct 24.8 L (39.0-53.0) % Neutrophils # 29.7 H (1.3-7.7) k/uL Monocytes # 3.4 H (0-1.0) k/uL Basophils # 0.3 H (0-0.2) k/uL APTT (22.0-30.0) sec Fibrinogen (200-500) mg/dL ABG pH (7.35-7.45) ABG pO2 (83-108) mmHg ABG HCO3 (21-25) mmol/L ABG Total CO2 (19-24) mmol/L ABG O2 Saturation (94-97) % Sodium 129 L (137-145) mmol/L Chloride 95 L (98-107) mmol/L Carbon Dioxide 33 H (22-30) mmol/L BUN 43 H (9-20) mg/dL Creatinine 1.97 H (0.66-1.25) mg/dL Glucose 155 H (74-99) mg/dL POC Glucose (mg/dL) 183 H (70-110) mg/dL Calcium 6.9 L (8.4-10.2) mg/dL Phosphorus 4.6 H (2.5-4.5) mg/dL Total Bilirubin 1.6 H (0.2-1.3) mg/dL AST 491 H (17-59) U/L ALT 147 H (4-49) U/L Lactate Dehydrogenase (120-246) U/L Total Protein 4.7 L (6.3-8.2) g/dL Albumin 2.0 L (3.5-5.0) g/dL Procalcitonin (0.02-0.09) ng/mL 10/16/23 10/16/23 10/16/23 Range/Units 05:16 07:01 08:30 WBC (3.8-10.6) k/uL RBC (4.30-5.90) m/uL Hgb (13.0-17.5) gm/dL Hct (39.0-53.0) % Neutrophils # (1.3-7.7) k/uL Monocytes # (0-1.0) k/uL Basophils # (0-0.2) k/uL APTT (22.0-30.0) sec Fibrinogen (200-500) mg/dL ABG pH 7.46 H (7.35-7.45) ABG pO2 129 H (83-108) mmHg ABG HCO3 32 H (21-25) mmol/L ABG Total CO2 33 H (19-24) mmol/L ABG O2 Saturation 98.0 H (94-97) % Sodium (137-145) mmol/L Chloride (98-107) mmol/L Carbon Dioxide (22-30) mmol/L BUN (9-20) mg/dL Creatinine (0.66-1.25) mg/dL Glucose (74-99) mg/dL POC Glucose (mg/dL) 185 H (70-110) mg/dL Calcium (8.4-10.2) mg/dL Phosphorus (2.5-4.5) mg/dL Total Bilirubin (0.2-1.3) mg/dL AST (17-59) U/L ALT (4-49) U/L Lactate Dehydrogenase 1948 H (120-246) U/L Total Protein (6.3-8.2) g/dL Albumin (3.5-5.0) g/dL Procalcitonin (0.02-0.09) ng/mL 10/16/23 10/16/23 10/16/23 Range/Units 12:15 12:15 14:30 WBC 33.6 H (3.8-10.6) k/uL RBC 2.45 L (4.30-5.90) m/uL Hgb 7.6 L (13.0-17.5) gm/dL Hct 22.7 L (39.0-53.0) % Neutrophils # (1.3-7.7) k/uL Monocytes # (0-1.0) k/uL Basophils # (0-0.2) k/uL APTT (22.0-30.0) sec Fibrinogen (200-500) mg/dL ABG pH (7.35-7.45) ABG pO2 (83-108) mmHg ABG HCO3 (21-25) mmol/L ABG Total CO2 (19-24) mmol/L ABG O2 Saturation (94-97) % Sodium (137-145) mmol/L Chloride (98-107) mmol/L Carbon Dioxide (22-30) mmol/L BUN (9-20) mg/dL Creatinine (0.66-1.25) mg/dL Glucose (74-99) mg/dL POC Glucose (mg/dL) 185 H (70-110) mg/dL Calcium (8.4-10.2) mg/dL Phosphorus (2.5-4.5) mg/dL Total Bilirubin (0.2-1.3) mg/dL AST (17-59) U/L ALT (4-49) U/L Lactate Dehydrogenase 1939 H (120-246) U/L Total Protein (6.3-8.2) g/dL Albumin (3.5-5.0) g/dL Procalcitonin (0.02-0.09) ng/mL
[2023-10-16 16:56] LABS: Glucose,Whole Blood 211 mg/dL (70-110)
[2023-10-16] MEDS: MEROPENEM 1 GM in SODIUM CHLORIDE 0.9% 100 ML IVPB SCH (17:01)
[2023-10-16 19:54] LABS: Glucose,Whole Blood 193 mg/dL (70-110)
--- NOTE | 2023-10-16 22:04 | P.PN ---
Subjective patient is a 77-year-old gentleman past medical history significant for hypothyroidism, hypertension who presented to the ER for generalized weakness and fall. Patient was brought in by family members, apparently patient was trying to use the restroom when he lost all his strength and slumped to the ground. There was no complaint of any loss of consciousness. No complaint of weakness of any extremity. Family did not notice any slurred speech or facial droop. There was no complaint of fever or chills. No complaint of nausea, vomiting, abdominal pain. Patient's family tried to help him to get up but they were unable to lift him. They called EMS and they brought him to ER. Initial lab work done in the ER showed WBC 10.5, hemoglobin 15.2, platelet count 165, sodium 118, potassium 4.1, BUN 24, creatinine 1.26, plasma lactate 4.1, tro ponin 0.012 UA negative for any infection EKG done in the ER showed heart rate of 75, no ST segment elevation or depression seen, no T-wave inversions seen. Chest x-ray done in the ER no acute cardiopulmonary process CT head done showed no acute intracranial process Patient admitted to internal medicine service 09/29. Patient seen and examined. COVID-19 came back positive. Currently on 4 L of oxygen. Sodium this morning is 121. Still complain lethargy and weakness. Patient also diagnosed with COVID 09/30. Patient seen and examined. Blood work done this morning showed WBC 14.9, hemoglobin 12.9, platelet count 146, sodium 126, potassium 3.9, BUN 15, creatinine 0.68. States he feels much better. Shortness of breath is improved. 10/01. Patient seen and examined. Still on 15 L of oxygen via nonrebreather. States he feels better. Sodium level improved to 132, potassium 3.3, BUN 18, creatinine 0.65. Lethargy has improved. 10/02. Patient seen and examined. Currently on 8 L of oxygen via high flow nasal cannula. States he feels much better, breathing is improved, pulmonology recommended sniff test to look for right diaphragm paralysis 10/03. Patient seen and examined. Continues to be on 15 L of oxygen. Patient is not lethargic, states gets short of breath on exertion. Denies any nausea or vomiting 10/04/2023 Patient seen and evaluated in follow-up today continues to be dyspneic maintained on high flow oxygen is being transferred to [facility]. Per nursing staff he continues to remove his nasal cannula as well as nonrebreather and respiratory following recommending i continuing this for a few hours. Patient has noted to be COVID-positive. Sodium is slightly low at 132 potassium was 3.3 yesterday and replaced awaiting follow-up labs. Patient with prolonged hospitalization and continued weakness will likely need ECF once stabilized. 10/05/2023 Patient is seen in follow-up this morning continues on Airvo with maximum oxygen at 60/90 maintaining oxygen saturations in the 88 percentile range. Patient reports having worsening shortness of breath although appears somewhat confused at times. Discussed CODE STATUS with the patient and he wishes to remain full code. Patient is agreeable to mechanical ventilation if required. Patient continues to remove his oxygen from his face desats very quickly. Will get a chest x-ray and continue to monitor closely. Pulmonary and infectious disease following and patient is continued on cefepime with concerns of pneumonia. Patient is currently afebrile and denies chest pain or shortness of breath. Patient reports he is eating although not much of an appetite. 10/06/2023 Patient is seen in follow-up today was transferred to the ICU for respiratory decline per nursing staff as patient continued to have respiratory distress and low oxygen saturations becoming more hypoxic and confused. Patient is continued on Airvo max 60/90 with continued intermittent nonrebreather use. Patient is continued on steroids along with inhalers and pulmonary is following closely. Patient is afebrile with no reported chest pain or shortness of breath. Patient reports to tolerating diet although appears not to be eating very much at all. 10/07/2023 Patient is seen and evaluated in follow-up today continues in the ICU on high flow Airvo 60 L / 90% with oxygen saturations in the low 90s. On exam patient was found to have Airvo out of his nostrils and using nonrebreather and oxygen saturation was 93%. Patient is maintained on antibiotics with infectious disease following closely along with pulmonary real estate legal assistant. CODE STATUS was addressed once again and patient wishes to remain full code. Wean FiO2 as t olerated. Encouraged oral intake. Patient to be evaluated by physical therapy once respiratory status improved and will need rehab. 10/09/2023 Patient lying in bed, mildly tachypneic with no chest pain He remains on Airvo 60 L/min Vital stable Remains on dexamethasone and Pepcid Resume of the care of the patient 10/12/2023 Patient with Covid infection and possible right lower lobe pneumonia finish her antibiotics. He does not need antiviral therapy but there is evidence of oral thrush and discovered covered with Diflucan and received nystatin as well. His leukocytosis stable about 18k, no fever. Patient also with fluid overload and hyponatremia sodium 1:30 status post 1 Samsca today, also patient is on IV Lasix 40 mg twice daily Patient currently is oxygen via nasal cannula saturating 88% which is improved from previous, airvo oxygen was stopped 10/13/2023 Patient is clinically stable. He is awake and alert not in distress his breathing is improving and currently he is on 4-5 L/m of oxygen which is a stable Has good air entry bilaterally. I discussed the case with pulmonary team and patient might be considered for discharge from their perspective is also on Diflucan and WBCs 18,000 Status post Samsca and sodium stable at 1:30, low potassium replaced I discussed the case with social worker aide and patient does not need a bone isolation for his Covid. However he is prior authorization Possible discharge in 24-48 hours 10/14/23 Patient mentation is at baseline No new complaints, no chest pain no significant dyspnea He remains on 5 L oxygen via nasal cannula WBC improved down to 12,000, hemoglobin 12, sodium slightly low at 127, glucose controlled. Ejection fraction 60-65% Remains on Diflucan. Today IV Lasix switched to by mouth 40 mg twice daily Discussed with telehealth case manager, still pending placement. Still family having contacted staff. 10/15/2023 Patient condition deteriorated and patient developed CODE BLUE called for him and he underwent CPR per protocol with downtime estimated about 7 to 10 minutes He was taken emergently to the [facility] and a total of 5 stents placed into his coronary arteries. Postprocedure patient was taken to the ICU intubated and s edated Also he was started on Impella for hemodynamic support He was started also on aspirin, Brilinta and heparin drip Also patient developed leukocytosis up to 1 31,000 hemoglobin stable around 12. Sodium 129 Creatinine stable at 1.1 Active Medications Generic Name Dose Route Start Last Admin Trade Name Freq PRN Reason Stop Dose Admin Acetaminophen 650 mg 09/28/23 01:38 10/16/23 04:43 Acetaminophen Tab 325 Mg Tab PO 650 mg Q4HR PRN Administration Fever and/or Mild Pain Al Hydroxide/Mg Hydroxide 30 ml 10/15/23 00:00 Mag Hydrox/Al Hydrox/Simeth 30 Ml Cup PO Q4HR PRN Heartburn Albuterol Sulfate 2.5 mg 10/15/23 08:00 10/16/23 19:39 Albuterol Nebulized 2.5 Mg/3 Ml INHALATION 2.5 mg RT-QID OH Administration Amiodarone HCl 400 mg 10/15/23 10:08 10/16/23 20:45 Amiodarone 200 Mg Tab PO 400 mg BID OH Administration Aspirin 81 mg 10/15/23 10:19 10/16/23 09:01 Aspirin 81 Mg PO 81 mg DAILY OH Administration Atorvastatin Calcium 80 mg 10/15/23 21:00 10/16/23 20:46 Atorvastatin 80 Mg Tab PO 80 mg HS OH Administration Atropine Sulfate 0.5 mg 10/14/23 22:23 Atropine Sulfate 0.1 Mg/Ml 10ml Syringe IV ONCE PRN Symptomatic Bradycardia Chlorhexidine Gluconate 15 ml 10/14/23 21:00 10/16/23 20:46 Chlorhexidine Gluconate 15 Ml Cup MUCOUS MEM 15 ml BID OH Administration Dextrose/Water 25 ml 10/15/23 08:19 Dextrose 50% Syringe 50 Ml IVP PER PROTOCOL PRN Hypoglycemia Protocol Dextrose/Water 50 ml 10/15/23 08:19 Dextrose 50% Syringe 50 Ml IVP PER PROTOCOL PRN Hypoglycemia Protocol Divalproex Sodium 1,000 mg 10/15/23 21:00 10/16/23 20:46 Divalproex Sprinkle 125 Mg Cap.Sprink PO 1,000 mg HS OH Administration Ergocalciferol 1,250 mcg 10/03/23 09:00 10/03/23 08:33 Ergocalciferol 1,250 Mcg (50,000 Iu) Capsule PO 1,250 mcg Q14D OH Administration Famotidine 20 mg 10/06/23 21:00 10/16/23 20:47 Famotidine 20 Mg Tab PO 20 mg BID OH Administration Heparin Sodium (Porcine) 0 unit 10/14/23 22:40 10/15/23 09:56 Heparin Sodium 1,000 Un/Ml (10ml Vl) IV 2,667.5 unit PER PROTOCOL PRN Administration Low PTT Protocol Hydromorphone HCl 0.5 mg 10/16/23 00:20 10/16/23 00:45 Hydromorphone 0.5 Mg/0.5 Ml Syringe IVP 0.5 mg Q4HR PRN Administration Pain Norepinephrine Bitartrate 8 mg 258 mls @ 8.504 mls/hr 10/14/23 18:15 10/16/23 20:30 / Sodium Chloride IV 0 mcg/kg/min .Q24H OH 0 mls/hr Titration Protocol 0.03 MCG/KG/MIN Heparin Sodium/Sodium Chloride 250 mls @ 10.006 mls/hr 10/14/23 22:00 10/15/23 18:40 25,000 unit/ Sodium Chloride IV 0 units/kg/hr .Q24H OH 0 mls/hr Titration Protocol 6.83 UNITS/KG/HR Sodium Bicarbonate 12.5 ml/ 512.5 mls @ 0 mls/hr 10/14/23 23:00 10/16/23 08:25 Dextrose/Water IV 3 mls/hr DIRECTED OH Administration Protocol Per Protocol Sodium Chloride 1,000 mls @ 75 mls/hr 10/15/23 20:00 10/16/23 11:38 Saline 0.9% IV 75 mls/hr .[id number] OH Administration Meropenem 1 gm/ Sodium 100 mls @ 33.3 mls/hr 10/16/23 16:00 10/16/23 17:01 Chloride IVPB 33.3 mls/hr Q8HR OH Administration Protocol Vancomycin HCl 1,750 mg/ 500 mls @ 167 mls/hr 10/16/23 11:00 10/16/23 11:38 Sodium Chloride IVPB 167 mls/hr Q24HR OH Administration Propofol 1,000 mg/ IV Solution 100 mls @ 26.37 mls/hr 10/16/23 15:43 10/16/23 20:25 IV 50 mcg/kg/min .Q3H48M OH 43.95 mls/hr Administration Protocol 30 MCG/KG/MIN Insulin Aspart 0 unit 10/15/23 12:00 10/16/23 20:06 Insulin Aspart (Novolog) 100 Unit/Ml Vial SQ 4 unit Q4HR OH Administration Protocol Levothyroxine Sodium 100 mcg 09/28/23 09:15 10/16/23 05:09 Levothyroxine 100 Mcg Tab PO 100 mcg DAILY@0630 OH Administration Miscellaneous Information 1 each 10/02/23 12:48 Potassium Replacement Protocol 1 Each [facility] DAILY PRN Per Protocol Protocol Miscellaneous Information 1 each 10/14/23 22:23 Rx Info: Iv Contrast Was Given 1 Each [facility] 10/16/23 22:23 DAILY PRN Per Protocol Miscellaneous Information 1 each 10/16/23 04:41 Magnesium Replacement Protocol 1 Each [facility] DAILY PRN Per Protocol Protocol Naloxone HCl 0.2 mg 09/28/23 01:38 Naloxone 0.4 Mg/Ml 1 Ml Vial IV Q2M PRN Opioid Reversal Nitroglycerin 0.4 mg 10/14/23 22:23 Nitroglycerin Sl Tabs 0.4 Mg Tab SUBLINGUAL Q5M PRN Chest Pain Nystatin 500,000 unit 10/10/23 13:00 10/16/23 21:44 Nystatin 100,000 Unit/Ml Susp 500,000 Unit/5 Ml Cup PO 500,000 unit QID [facility] Administration Protocol Nystatin 1 applic 10/10/23 21:00 10/16/23 20:47 Nystatin 100,000 Unit/Gm Powd 15 Gm TOPICAL 1 applic BID [facility] Administration Protocol Pantoprazole Sodium 40 mg 10/15/23 21:00 10/16/23 20:47 Pantoprazole 40 Mg/10 Ml Vial IV 40 mg BID OH Administration Petrolatum 1 applic 10/01/23 13:59 Zinc Oxide Paste (Z-Guard) 1 Applic TOPICAL Q2HR PRN Wound Healing Protocol Ticagrelor 90 mg 10/15/23 09:00 10/16/23 20:48 Ticagrelor 90 Mg Tab PO 90 mg BID [facility] Administration Protocol Zolpidem Tartrate 5 mg 10/14/23 22:23 Zolpidem 5 Mg Tab PO HS PRN Insomnia Objective - Vital Signs Vital signs: Vital Signs Temp 98.9 F 10/15/23 16:00 Pulse 99 10/15/23 17:00 Resp 26 H 10/15/23 17:00 BP 127/74 10/15/23 15:45 Pulse Ox 98 10/15/23 17:00 FiO2 60 10/15/23 16:00 Intake & Output 10/14/23 10/15/23 10/15/23 18:59 06:59 18:59 Intake Total 280 2861.429 2330.148 Output Total 800 1450 250 Balance -520 9297.697 2500.148 Weight 106.7 kg Intake: IV 280 1656 1200 A-line 54 60 Dextrose 5% in Water 1, 900 000 ml @ 100 mls/hr IV . Q11H ONE with Sodium Bicarb (1 Meq/ml) 100 ml Rx#:[id number] Invasive Line 9 30 Potassium Chloride 10 meq 100 In Water For Injection 1 100ml.bag @ 100 mls/hr IVPB Q1H OH Rx#: [id number] Sodium Bicarb (1 Meq/ml) 27 30 12.5 ml In Dextrose 5% in Water 500 ml @ Per Protocol IV DIRECTED OH Rx#:[id number] Sodium Chloride 0.9% 1, 675 750 000 ml In Empty Bag 1 bag @ 75 mls/hr IV .[id number] OH Rx#:[id number] Tirofiban 12.5MG-250Ml Ns 260 250 ml @ 0.15 MCG/KG/MIN 26.37 mls/hr IV .Q9H29M OH Rx#:[id number] Intake, IV Titration 1317.194 9023.148 Amount Amiodarone 360 mg In 357.221 Dextrose 5% in Water 200 ml @ 1 MG/MIN 33.333 mls/ hr IV .Q6H OH Rx#: [id number] Heparin Sod,Pork in 0.45% 59.035 190.965 NaCl 25,000 unit In 0.45 % NaCl 1 250ml.bag @ 6.83 UNITS/KG/HR 10.006 mls/ hr IV .Q24H OH Rx#: [id number] Lidocaine-D5w Pmx 2G/ 244.5 250Ml 2,000 mg In Dextrose/Water 1 250ml. bag @ 1 MG/MIN 7.5 mls/hr IV .Q24H OH Rx#: [id number] Norepinephrine 8 mg In 292.017 342.018 Sodium Chloride 0.9% 250 ml @ 0.03 MCG/KG/MIN 8. 504 mls/hr IV .Q24H OH Rx#:[id number] Vasopressin 60 unit In 58.905 Sodium Chloride 0.9% 150 ml @ 0.03 UNITS/MIN 4.59 mls/hr IV .Q24H ONE Rx#: [id number] propofoL 1,000 mg In 467.156 293.760 Empty Bag 1 bag @ 30 MCG/ KG/MIN 26.37 mls/hr IV . Q3H48M [facility] Rx#:[id number] Oral 0 Other 30 Output: Urine 800 1450 250 Other: Voiding Method Indwelling Catheter Indwelling Catheter Indwelling Catheter ABP, PAP, CO, CI - Last Documented Arterial Blood Pressure 108/66 - Exam GENERAL: The patient is sedated and intubated HEENT: Pupils are round and equally reacting to light. EOMI. No scleral icterus. No conjunctival pallor. Normocephalic, atraumatic. No pharyngeal erythema. No thyromegaly. CARDIOVASCULAR: S1 and S2 present. No murmurs, rubs, or gallops. PULMONARY: Chest is clear to auscultation, no wheezing , no crackles. ABDOMEN: Soft, nontender, nondistended, normoactive bowel sounds. No palpable organomegaly. MUSCULOSKELETAL: No joint swelling or deformity. EXTREMITIES: No cyanosis, clubbing, or pedal edema. NEUROLOGICAL: Gross neurological examination did not reveal any focal deficits. SKIN: No rashes. no petechiae. - Labs CBC & Chem 7: 10/16/23 12:15 10/16/23 04:15 Labs: Abnormal Lab Results - Last 24 Hours (Table) 10/14/23 10/14/23 10/14/23 Range/Units 18:30 18:30 18:30 WBC 31.0 H (3.8-10.6) k/uL RBC 4.01 L (4.30-5.90) m/uL Hgb 12.0 L (13.0-17.5) gm/dL Hct 36.7 L (39.0-53.0) % Neutrophils # (1.3-7.7) k/uL Monocytes # (0-1.0) k/uL PT (10.0-12.5) sec INR (<1.2) APTT (22.0-30.0) sec Fibrinogen (200-500) mg/dL ABG pCO2 (35-45) mmHg ABG pO2 (83-108) mmHg ABG HCO3 (21-25) mmol/L ABG Total CO2 (19-24) mmol/L ABG O2 Saturation (94-97) % ABG Lactic Acid (0.5-1.6) mmol/L Sodium 128 L (137-145) mmol/L Potassium 3.3 L (3.5-5.1) mmol/L Chloride 88 L (98-107) mmol/L Carbon Dioxide (22-30) mmol/L BUN 24 H (9-20) mg/dL Glucose 256 H (74-99) mg/dL POC Glucose (mg/dL) (70-110) mg/dL Plasma Lactic Acid Guillaume (0.7-2.0) mmol/L Calcium (8.4-10.2) mg/dL Magnesium 2.6 H (1.6-2.3) mg/dL Total Bilirubin 1.8 H (0.2-1.3) mg/dL AST (17-59) U/L ALT (4-49) U/L Lactate Dehydrogenase (120-246) U/L Creatine Kinase (55-170) U/L Troponin I 0.790 H* (0.000-0.034) ng/mL C-Reactive Protein (<1.0) mg/dL Total Protein 6.1 L (6.3-8.2) g/dL Albumin 2.9 L (3.5-5.0) g/dL 10/14/23 10/14/23 10/14/23 Range/Units 20:45 22:45 22:45 WBC 30.1 H (3.8-10.6) k/uL RBC 3.56 L (4.30-5.90) m/uL Hgb 10.9 L (13.0-17.5) gm/dL Hct 33.1 L (39.0-53.0) % Neutrophils # 27.0 H (1.3-7.7) k/uL Monocytes # 1.7 H (0-1.0) k/uL PT (10.0-12.5) sec INR (<1.2) APTT (22.0-30.0) sec Fibrinogen (200-500) mg/dL ABG pCO2 (35-45) mmHg ABG pO2 53 L* (83-108) mmHg ABG HCO3 26 H (21-25) mmol/L ABG Total CO2 27 H (19-24) mmol/L ABG O2 Saturation 85.9 L (94-97) % ABG Lactic Acid (0.5-1.6) mmol/L Sodium 128 L (137-145) mmol/L Potassium (3.5-5.1) mmol/L Chloride 88 L (98-107) mmol/L Carbon Dioxide 31 H (22-30) mmol/L BUN 25 H (9-20) mg/dL Glucose 354 H (74-99) mg/dL POC Glucose (mg/dL) (70-110) mg/dL Plasma Lactic Acid Guillaume (0.7-2.0) mmol/L Calcium 7.9 L (8.4-10.2) mg/dL Magnesium (1.6-2.3) mg/dL Total Bilirubin 2.0 H (0.2-1.3) mg/dL AST 302 H (17-59) U/L ALT 52 H (4-49) U/L Lactate Dehydrogenase (120-246) U/L Creatine Kinase (55-170) U/L Troponin I (0.000-0.034) ng/mL C-Reactive Protein (<1.0) mg/dL Total Protein 5.4 L (6.3-8.2) g/dL Albumin 2.4 L (3.5-5.0) g/dL 10/14/23 10/14/23 10/15/23 Range/Units 22:50 23:24 02:20 WBC (3.8-10.6) k/uL RBC (4.30-5.90) m/uL Hgb (13.0-17.5) gm/dL Hct (39.0-53.0) % Neutrophils # (1.3-7.7) k/uL Monocytes # (0-1.0) k/uL PT 13.5 H (10.0-12.5) sec INR 1.3 H (<1.2) APTT (22.0-30.0) sec Fibrinogen 530 H (200-500) mg/dL ABG pCO2 (35-45) mmHg ABG pO2 (83-108) mmHg ABG HCO3 (21-25) mmol/L ABG Total CO2 (19-24) mmol/L ABG O2 Saturation (94-97) % ABG Lactic Acid 6.8 H* (0.5-1.6) mmol/L Sodium (137-145) mmol/L Potassium (3.5-5.1) mmol/L Chloride (98-107) mmol/L Carbon Dioxide (22-30) mmol/L BUN (9-20) mg/dL Glucose (74-99) mg/dL POC Glucose (mg/dL) (70-110) mg/dL Plasma Lactic Acid Guillaume (0.7-2.0) mmol/L Calcium (8.4-10.2) mg/dL Magnesium (1.6-2.3) mg/dL Total Bilirubin (0.2-1.3) mg/dL AST (17-59) U/L ALT (4-49) U/L Lactate Dehydrogenase (120-246) U/L Creatine Kinase (55-170) U/L Troponin I (0.000-0.034) ng/mL C-Reactive Protein (<1.0) mg/dL Total Protein (6.3-8.2) g/dL Albumin (3.5-5.0) g/dL 10/15/23 10/15/23 10/15/23 Range/Units 03:13 03:13 03:13 WBC 24.6 H (3.8-10.6) k/uL RBC 3.47 L (4.30-5.90) m/uL Hgb 10.7 L (13.0-17.5) gm/dL Hct 31.9 L (39.0-53.0) % Neutrophils # 19.9 H (1.3-7.7) k/uL Monocytes # 1.9 H (0-1.0) k/uL PT (10.0-12.5) sec INR (<1.2) APTT (22.0-30.0) sec Fibrinogen (200-500) mg/dL ABG pCO2 (35-45) mmHg ABG pO2 (83-108) mmHg ABG HCO3 (21-25) mmol/L ABG Total CO2 (19-24) mmol/L ABG O2 Saturation (94-97) % ABG Lactic Acid (0.5-1.6) mmol/L Sodium 128 L (137-145) mmol/L Potassium (3.5-5.1) mmol/L Chloride 89 L (98-107) mmol/L Carbon Dioxide 37 H (22-30) mmol/L BUN 27 H (9-20) mg/dL Glucose 307 H (74-99) mg/dL POC Glucose (mg/dL) (70-110) mg/dL Plasma Lactic Acid Guillaume 4.7 H* (0.7-2.0) mmol/L Calcium 7.6 L (8.4-10.2) mg/dL Magnesium (1.6-2.3) mg/dL Total Bilirubin (0.2-1.3) mg/dL AST (17-59) U/L ALT (4-49) U/L Lactate Dehydrogenase 1478 H (120-246) U/L Creatine Kinase (55-170) U/L Troponin I (0.000-0.034) ng/mL C-Reactive Protein (<1.0) mg/dL Total Protein (6.3-8.2) g/dL Albumin (3.5-5.0) g/dL 10/15/23 10/15/23 10/15/23 Range/Units 03:13 05:57 06:15 WBC (3.8-10.6) k/uL RBC (4.30-5.90) m/uL Hgb (13.0-17.5) gm/dL Hct (39.0-53.0) % Neutrophils # (1.3-7.7) k/uL Monocytes # (0-1.0) k/uL PT (10.0-12.5) sec INR (<1.2) APTT (22.0-30.0) sec Fibrinogen (200-500) mg/dL ABG pCO2 53 H (35-45) mmHg ABG pO2 213 H (83-108) mmHg ABG HCO3 36 H (21-25) mmol/L ABG Total CO2 38 H (19-24) mmol/L ABG O2 Saturation 98.6 H (94-97) % ABG Lactic Acid (0.5-1.6) mmol/L Sodium (137-145) mmol/L Potassium (3.5-5.1) mmol/L Chloride (98-107) mmol/L Carbon Dioxide (22-30) mmol/L BUN (9-20) mg/dL Glucose (74-99) mg/dL POC Glucose (mg/dL) (70-110) mg/dL Plasma Lactic Acid Guillaume 4.0 H* (0.7-2.0) mmol/L Calcium (8.4-10.2) mg/dL Magnesium (1.6-2.3) mg/dL Total Bilirubin (0.2-1.3) mg/dL AST (17-59) U/L ALT (4-49) U/L Lactate Dehydrogenase (120-246) U/L Creatine Kinase (55-170) U/L Troponin I (0.000-0.034) ng/mL C-Reactive Protein 21.0 H (<1.0) mg/dL Total Protein (6.3-8.2) g/dL Albumin (3.5-5.0) g/dL 10/15/23 10/15/23 10/15/23 Range/Units 06:15 06:15 08:55 WBC (3.8-10.6) k/uL RBC (4.30-5.90) m/uL Hgb (13.0-17.5) gm/dL Hct (39.0-53.0) % Neutrophils # (1.3-7.7) k/uL Monocytes # (0-1.0) k/uL PT (10.0-12.5) sec INR (<1.2) APTT (22.0-30.0) sec Fibrinogen (200-500) mg/dL ABG pCO2 (35-45) mmHg ABG pO2 (83-108) mmHg ABG HCO3 (21-25) mmol/L ABG Total CO2 (19-24) mmol/L ABG O2 Saturation (94-97) % ABG Lactic Acid (0.5-1.6) mmol/L Sodium (137-145) mmol/L Potassium (3.5-5.1) mmol/L Chloride (98-107) mmol/L Carbon Dioxide (22-30) mmol/L BUN (9-20) mg/dL Glucose (74-99) mg/dL POC Glucose (mg/dL) 315 H (70-110) mg/dL Plasma Lactic Acid Guillaume (0.7-2.0) mmol/L Calcium (8.4-10.2) mg/dL Magnesium (1.6-2.3) mg/dL Total Bilirubin 2.0 H (0.2-1.3) mg/dL AST 587 H (17-59) U/L ALT 91 H (4-49) U/L Lactate Dehydrogenase 1932 H (120-246) U/L Creatine Kinase 6723 H* (55-170) U/L Troponin I (0.000-0.034) ng/mL C-Reactive Protein (<1.0) mg/dL Total Protein 5.0 L (6.3-8.2) g/dL Albumin 2.2 L (3.5-5.0) g/dL 10/15/23 10/15/23 10/15/23 Range/Units 08:55 08:55 08:55 WBC (3.8-10.6) k/uL RBC (4.30-5.90) m/uL Hgb (13.0-17.5) gm/dL Hct (39.0-53.0) % Neutrophils # (1.3-7.7) k/uL Monocytes # (0-1.0) k/uL PT (10.0-12.5) sec INR (<1.2) APTT 39.9 H (22.0-30.0) sec Fibrinogen (200-500) mg/dL ABG pCO2 (35-45) mmHg ABG pO2 (83-108) mmHg ABG HCO3 (21-25) mmol/L ABG Total CO2 (19-24) mmol/L ABG O2 Saturation (94-97) % ABG Lactic Acid (0.5-1.6) mmol/L Sodium (137-145) mmol/L Potassium (3.5-5.1) mmol/L Chloride (98-107) mmol/L Carbon Dioxide (22-30) mmol/L BUN (9-20) mg/dL Glucose (74-99) mg/dL POC Glucose (mg/dL) (70-110) mg/dL Plasma Lactic Acid Guillaume (0.7-2.0) mmol/L Calcium (8.4-10.2) mg/dL Magnesium (1.6-2.3) mg/dL Total Bilirubin (0.2-1.3) mg/dL AST (17-59) U/L ALT (4-49) U/L Lactate Dehydrogenase 1958 H (120-246) U/L Creatine Kinase (55-170) U/L Troponin I 282.000 H* (0.000-0.034) ng/mL C-Reactive Protein (<1.0) mg/dL Total Protein (6.3-8.2) g/dL Albumin (3.5-5.0) g/dL 10/15/23 10/15/23 10/15/23 Range/Units 12:44 15:50 16:41 WBC (3.8-10.6) k/uL RBC (4.30-5.90) m/uL Hgb (13.0-17.5) gm/dL Hct (39.0-53.0) % Neutrophils # (1.3-7.7) k/uL Monocytes # (0-1.0) k/uL PT (10.0-12.5) sec INR (<1.2) APTT 79.4 H (22.0-30.0) sec Fibrinogen (200-500) mg/dL ABG pCO2 (35-45) mmHg ABG pO2 (83-108) mmHg ABG HCO3 (21-25) mmol/L ABG Total CO2 (19-24) mmol/L ABG O2 Saturation (94-97) % ABG Lactic Acid (0.5-1.6) mmol/L Sodium (137-145) mmol/L Potassium (3.5-5.1) mmol/L Chloride (98-107) mmol/L Carbon Dioxide (22-30) mmol/L BUN (9-20) mg/dL Glucose (74-99) mg/dL POC Glucose (mg/dL) 270 H 204 H (70-110) mg/dL Plasma Lactic Acid Guillaume (0.7-2.0) mmol/L Calcium (8.4-10.2) mg/dL Magnesium (1.6-2.3) mg/dL Total Bilirubin (0.2-1.3) mg/dL AST (17-59) U/L ALT (4-49) U/L Lactate Dehydrogenase (120-246) U/L Creatine Kinase (55-170) U/L Troponin I (0.000-0.034) ng/mL C-Reactive Protein (<1.0) mg/dL Total Protein (6.3-8.2) g/dL Albumin (3.5-5.0) g/dL Assessment and Plan Assessment: ST elevation RI, s/p emergent cardiac cath and 5 stents placement Cardiogenic shock and possible septic shock secondary to above Acute hypoxic respiratory failure requiring intubation and mechanical ventilation Hyponatremia secondary to poor oral intake, COVID-19 Acute hypoxic respiratory failure secondary to COVID-19, now requiring oxygen via nasal cannula. Improved Altered mental status, with toxic metabolic encephalopathy likely secondary to hypoxia as patient continues to remove oxygen mask from his face Generalized weakness Rhabdomyolysis. Improved Fall Urinary retention requiring indwelling Rosales catheter Hypothyroidism Hypertension Obesity with a BMI of 35.0 acute STEMI s/p Plan: Patient is continued on mechanical ventilation Continue with aspirin and Brilinta Patient is on heparin drip Cardiology consult following closely Pulmonary/critical care team following closely Patient s/p Impella with cardiology team Antibiotics were adjusted into meropenem and IV vancomycin by ID team Continue with insulin coverage Summer consult is on the case including ID team, pulmonary and nephrology Labs and medication were reviewed.. Continue same treatment. Continue with symptomatic treatment. Resume home medication. Monitor labs and vitals. DVT and GI prophylaxis. Further recommendations as per clinical course of the patient DVT prophylaxis: Subcutaneous Lovenox GI Prophylaxis: Pepcid PT/OT: heather prognosis is guarded
--- NOTE | 2023-10-16 22:11 | P.PN ---
Subjective patient is a 77-year-old gentleman past medical history significant for hypothyroidism, hypertension who presented to the ER for generalized weakness and fall. Patient was brought in by family members, apparently patient was trying to use the restroom when he lost all his strength and slumped to the ground. There was no complaint of any loss of consciousness. No complaint of weakness of any extremity. Family did not notice any slurred speech or facial droop. There was no complaint of fever or chills. No complaint of nausea, vomiting, abdominal pain. Patient's family tried to help him to get up but they were unable to lift him. They called EMS and they brought him to ER. Initial lab work done in the ER showed WBC 10.5, hemoglobin 15.2, platelet count 165, sodium 118, potassium 4.1, BUN 24, creatinine 1.26, plasma lactate 4.1, tro ponin 0.012 UA negative for any infection EKG done in the ER showed heart rate of 75, no ST segment elevation or depression seen, no T-wave inversions seen. Chest x-ray done in the ER no acute cardiopulmonary process CT head done showed no acute intracranial process Patient admitted to internal medicine service 09/29. Patient seen and examined. COVID-19 came back positive. Currently on 4 L of oxygen. Sodium this morning is 121. Still complain lethargy and weakness. Patient also diagnosed with COVID 09/30. Patient seen and examined. Blood work done this morning showed WBC 14.9, hemoglobin 12.9, platelet count 146, sodium 126, potassium 3.9, BUN 15, creatinine 0.68. States he feels much better. Shortness of breath is improved. 10/01. Patient seen and examined. Still on 15 L of oxygen via nonrebreather. States he feels better. Sodium level improved to 132, potassium 3.3, BUN 18, creatinine 0.65. Lethargy has improved. 10/02. Patient seen and examined. Currently on 8 L of oxygen via high flow nasal cannula. States he feels much better, breathing is improved, pulmonology recommended sniff test to look for right diaphragm paralysis 10/03. Patient seen and examined. Continues to be on 15 L of oxygen. Patient is not lethargic, states gets short of breath on exertion. Denies any nausea or vomiting 10/04/2023 Patient seen and evaluated in follow-up today continues to be dyspneic maintained on high flow oxygen is being transferred to [facility]. Per nursing staff he continues to remove his nasal cannula as well as nonrebreather and respiratory following recommending i continuing this for a few hours. Patient has noted to be COVID-positive. Sodium is slightly low at 132 potassium was 3.3 yesterday and replaced awaiting follow-up labs. Patient with prolonged hospitalization and continued weakness will likely need ECF once stabilized. 10/05/2023 Patient is seen in follow-up this morning continues on Airvo with maximum oxygen at 60/90 maintaining oxygen saturations in the 88 percentile range. Patient reports having worsening shortness of breath although appears somewhat confused at times. Discussed CODE STATUS with the patient and he wishes to remain full code. Patient is agreeable to mechanical ventilation if required. Patient continues to remove his oxygen from his face desats very quickly. Will get a chest x-ray and continue to monitor closely. Pulmonary and infectious disease following and patient is continued on cefepime with concerns of pneumonia. Patient is currently afebrile and denies chest pain or shortness of breath. Patient reports he is eating although not much of an appetite. 10/06/2023 Patient is seen in follow-up today was transferred to the ICU for respiratory decline per nursing staff as patient continued to have respiratory distress and low oxygen saturations becoming more hypoxic and confused. Patient is continued on Airvo max 60/90 with continued intermittent nonrebreather use. Patient is continued on steroids along with inhalers and pulmonary is following closely. Patient is afebrile with no reported chest pain or shortness of breath. Patient reports to tolerating diet although appears not to be eating very much at all. 10/07/2023 Patient is seen and evaluated in follow-up today continues in the ICU on high flow Airvo 60 L / 90% with oxygen saturations in the low 90s. On exam patient was found to have Airvo out of his nostrils and using nonrebreather and oxygen saturation was 93%. Patient is maintained on antibiotics with infectious disease following closely along with pulmonary auto radiator mechanic. CODE STATUS was addressed once again and patient wishes to remain full code. Wean FiO2 as t olerated. Encouraged oral intake. Patient to be evaluated by physical therapy once respiratory status improved and will need rehab. 10/09/2023 Patient lying in bed, mildly tachypneic with no chest pain He remains on Airvo 60 L/min Vital stable Remains on dexamethasone and Pepcid Resume of the care of the patient 10/12/2023 Patient with Covid infection and possible right lower lobe pneumonia finish her antibiotics. He does not need antiviral therapy but there is evidence of oral thrush and discovered covered with Diflucan and received nystatin as well. His leukocytosis stable about 18k, no fever. Patient also with fluid overload and hyponatremia sodium 1:30 status post 1 Samsca today, also patient is on IV Lasix 40 mg twice daily Patient currently is oxygen via nasal cannula saturating 88% which is improved from previous, airvo oxygen was stopped 10/13/2023 Patient is clinically stable. He is awake and alert not in distress his breathing is improving and currently he is on 4-5 L/m of oxygen which is a stable Has good air entry bilaterally. I discussed the case with pulmonary team and patient might be considered for discharge from their perspective is also on Diflucan and WBCs 18,000 Status post Samsca and sodium stable at 1:30, low potassium replaced I discussed the case with social sciences professor and patient does not need a bone isolation for his Covid. However he is prior authorization Possible discharge in 24-48 hours 10/14/23 Patient mentation is at baseline No new complaints, no chest pain no significant dyspnea He remains on 5 L oxygen via nasal cannula WBC improved down to 12,000, hemoglobin 12, sodium slightly low at 127, glucose controlled. Ejection fraction 60-65% Remains on Diflucan. Today IV Lasix switched to by mouth 40 mg twice daily Discussed with social work case manager, still pending placement. Still family having contacted staff. 10/15/2023 Patient condition deteriorated and patient developed CODE BLUE called for him and he underwent CPR per protocol with downtime estimated about 7 to 10 minutes He was taken emergently to [facility] and a total of 5 stents placed into his coronary arteries. Postprocedure patient was taken to the ICU intubated and s edated Also he was started on Impella for hemodynamic support He was started also on aspirin, Brilinta and heparin drip Also patient developed leukocytosis up to 1 31,000 hemoglobin stable around 12. Sodium 129 Creatinine stable at 1.1 10/16/2023 Patient remains in the ICU sedated and intubated Today he lost about 400 to 500 mL of dark-colored fluid through his NG tube so heparin drip was stopped. While patient kept on aspirin and Brilinta History requires Impella in place with cardiology and critical care team following closely He remains on intubated on mechanical ventilation for respiratory support He has significant leukocytosis up to 33,000 and is currently covered with IV vancomycin and meropenem. He has been spiking fever today Also his creatinine jumped up to 1.9 and he developed acute kidney injury His condition remains critical Case discussed with staff and critical care team Active Medications Generic Name Dose Route Start Last Admin Trade Name Freq PRN Reason Stop Dose Admin Acetaminophen 650 mg 09/28/23 01:38 10/16/23 04:43 Acetaminophen Tab 325 Mg Tab PO 650 mg Q4HR PRN Administration Fever and/or Mild Pain Al Hydroxide/Mg Hydroxide 30 ml 10/15/23 00:00 Mag Hydrox/Al Hydrox/Simeth 30 Ml Cup PO Q4HR PRN Heartburn Albuterol Sulfate 2.5 mg 10/15/23 08:00 10/16/23 19:39 Albuterol Nebulized 2.5 Mg/3 Ml INHALATION 2.5 mg RT-QID OH Administration Amiodarone HCl 400 mg 10/15/23 10:08 10/16/23 20:45 Amiodarone 200 Mg Tab PO 400 mg BID OH Administration Aspirin 81 mg 10/15/23 10:19 10/16/23 09:01 Aspirin 81 Mg PO 81 mg DAILY OH Administration Atorvastatin Calcium 80 mg 10/15/23 21:00 10/16/23 20:46 Atorvastatin 80 Mg Tab PO 80 mg HS OH Administration Atropine Sulfate 0.5 mg 10/14/23 22:23 Atropine Sulfate 0.1 Mg/Ml 10ml Syringe IV ONCE PRN Symptomatic Bradycardia Chlorhexidine Gluconate 15 ml 10/14/23 21:00 10/16/23 20:46 Chlorhexidine Gluconate 15 Ml Cup MUCOUS MEM 15 ml BID OH Administration Dextrose/Water 25 ml 10/15/23 08:19 Dextrose 50% Syringe 50 Ml IVP PER PROTOCOL PRN Hypoglycemia Protocol Dextrose/Water 50 ml 10/15/23 08:19 Dextrose 50% Syringe 50 Ml IVP PER PROTOCOL PRN Hypoglycemia Protocol Divalproex Sodium 1,000 mg 10/15/23 21:00 10/16/23 20:46 Divalproex Sprinkle 125 Mg Cap.Sprink PO 1,000 mg HS OH Administration Ergocalciferol 1,250 mcg 10/03/23 09:00 10/03/23 08:33 Ergocalciferol 1,250 Mcg (50,000 Iu) Capsule PO 1,250 mcg Q14D OH Administration Famotidine 20 mg 10/06/23 21:00 10/16/23 20:47 Famotidine 20 Mg Tab PO 20 mg BID OH Administration Heparin Sodium (Porcine) 0 unit 10/14/23 22:40 10/15/23 09:56 Heparin Sodium 1,000 Un/Ml (10ml Vl) IV 2,667.5 unit PER PROTOCOL PRN Administration Low PTT Protocol Hydromorphone HCl 0.5 mg 10/16/23 00:20 10/16/23 00:45 Hydromorphone 0.5 Mg/0.5 Ml Syringe IVP 0.5 mg Q4HR PRN Administration Pain Norepinephrine Bitartrate 8 mg 258 mls @ 8.504 mls/hr 10/14/23 18:15 10/16/23 20:30 / Sodium Chloride IV 0 mcg/kg/min .Q24H OH 0 mls/hr Titration Protocol 0.03 MCG/KG/MIN Heparin Sodium/Sodium Chloride 250 mls @ 10.006 mls/hr 10/14/23 22:00 10/15/23 18:40 25,000 unit/ Sodium Chloride IV 0 units/kg/hr .Q24H OH 0 mls/hr Titration Protocol 6.83 UNITS/KG/HR Sodium Bicarbonate 12.5 ml/ 512.5 mls @ 0 mls/hr 10/14/23 23:00 10/16/23 08:25 Dextrose/Water IV 3 mls/hr DIRECTED OH Administration Protocol Per Protocol Sodium Chloride 1,000 mls @ 75 mls/hr 10/15/23 20:00 10/16/23 11:38 Saline 0.9% IV 75 mls/hr .[id number] OH Administration Meropenem 1 gm/ Sodium 100 mls @ 33.3 mls/hr 10/16/23 16:00 10/16/23 17:01 Chloride IVPB 33.3 mls/hr Q8HR OH Administration Protocol Vancomycin HCl 1,750 mg/ 500 mls @ 167 mls/hr 10/16/23 11:00 10/16/23 11:38 Sodium Chloride IVPB 167 mls/hr Q24HR [facility] Administration Propofol 1,000 mg/ IV Solution 100 mls @ 26.37 mls/hr 10/16/23 15:43 10/16/23 20:25 IV 50 mcg/kg/min .Q3H48M OH 43.95 mls/hr Administration Protocol 30 MCG/KG/MIN Insulin Aspart 0 unit 10/15/23 12:00 10/16/23 20:06 Insulin Aspart (Novolog) 100 Unit/Ml Vial SQ 4 unit Q4HR [facility] Administration Protocol Levothyroxine Sodium 100 mcg 09/28/23 09:15 10/16/23 05:09 Levothyroxine 100 Mcg Tab PO 100 mcg DAILY@0630 [facility] Administration Miscellaneous Information 1 each 10/02/23 12:48 Potassium Replacement Protocol 1 Each [facility] MISCELLANE DAILY PRN Per Protocol Protocol Miscellaneous Information 1 each 10/14/23 22:23 Rx Info: Iv Contrast Was Given 1 Each Mis MISCELLANE 10/16/23 22:23 DAILY PRN Per Protocol Miscellaneous Information 1 each 10/16/23 04:41 Magnesium Replacement Protocol 1 Each Mis MISCELLANE DAILY PRN Per Protocol Protocol Naloxone HCl 0.2 mg 09/28/23 01:38 Naloxone 0.4 Mg/Ml 1 Ml Vial IV Q2M PRN Opioid Reversal Nitroglycerin 0.4 mg 10/14/23 22:23 Nitroglycerin Sl Tabs 0.4 Mg Tab SUBLINGUAL Q5M PRN Chest Pain Nystatin 500,000 unit 10/10/23 13:00 10/16/23 21:44 Nystatin 100,000 Unit/Ml Susp 500,000 Unit/5 Ml Cup PO 500,000 unit QID [facility] Administration Protocol Nystatin 1 applic 10/10/23 21:00 10/16/23 20:47 Nystatin 100,000 Unit/Gm Powd 15 Gm TOPICAL 1 applic BID [facility] Administration Protocol Pantoprazole Sodium 40 mg 10/15/23 21:00 10/16/23 20:47 Pantoprazole 40 Mg/10 Ml Vial IV 40 mg BID [facility] Administration Petrolatum 1 applic 10/01/23 13:59 Zinc Oxide Paste (Z-Guard) 1 Applic TOPICAL Q2HR PRN [facility] Protocol Ticagrelor 90 mg 10/15/23 09:00 10/16/23 20:48 Ticagrelor 90 Mg Tab PO 90 mg BID [facility] Administration Protocol Zolpidem Tartrate 5 mg 10/14/23 22:23 Zolpidem 5 Mg Tab PO HS PRN Insomnia Objective - Vital Signs Vital signs: Vital Signs Temp 100.9 F H 10/16/23 08:00 Pulse 108 H 10/16/23 11:38 Resp 27 H 10/16/23 10:30 BP 93/59 10/16/23 02:00 Pulse Ox 97 10/16/23 10:30 FiO2 60 10/16/23 11:29 Intake & Output 10/15/23 10/16/23 10/16/23 18:59 06:59 18:59 Intake Total 2460.364 1882.291 471.063 Output Total 470 655 250 Balance 2926.088 3099.291 221.063 Weight 116 kg Intake: IV 1284 1133 261 A-line 66 72 24 Cefepime 2 gm In Sodium 200 Chloride 0.9% 100 ml @ 25 mls/hr IVPB Q8H [facility] Rx#: [id number] Potassium Chloride 10 meq 100 In Water For Injection 1 100ml.bag @ 100 mls/hr IVPB Q1H [facility] Rx#: [id number] Sodium Bicarb (1 Meq/ml) 33 36 12 12.5 ml In Dextrose 5% in Water 500 ml @ Per Protocol IV DIRECTED [facility] Rx#:[id number] Sodium Chloride 0.9% 1, 825 825 225 000 ml In Empty Bag 1 bag @ 75 mls/hr IV .[id number] [facility] Rx#:[id number] Tirofiban 12.5MG-250Ml Ns 260 250 ml @ 0.15 MCG/KG/MIN 26.37 mls/hr IV .Q9H29M [facility] Rx#:[id number] Intake, IV Titration 1176.364 659.291 210.063 Amount Heparin Sod,Pork in 0.45% 237.181 NaCl 25,000 unit In 0.45 % NaCl 1 250ml.bag @ 6.83 UNITS/KG/HR 10.006 mls/ hr IV .Q24H [facility] Rx#: [id number] Lidocaine-D5w Pmx 2G/ 244.5 250Ml 2,000 mg In Dextrose/Water 1 250ml. bag @ 1 MG/MIN 7.5 mls/hr IV .Q24H [facility] Rx#: [id number] Norepinephrine 8 mg In 342.018 267.729 10.063 Sodium Chloride 0.9% 250 ml @ 0.03 MCG/KG/MIN 8. 504 mls/hr IV .Q24H [facility] Rx#:[id number] Vasopressin 60 unit In 58.905 Sodium Chloride 0.9% 150 ml @ 0.03 UNITS/MIN 4.59 mls/hr IV .Q24H [facility] Rx#: [id number] propofoL 1,000 mg In 293.760 391.562 200 Empty Bag 1 bag @ 30 MCG/ KG/MIN 26.37 mls/hr IV . Q3H48M [facility] Rx#:[id number] Oral 0 0 Other 90 Output: Gastric Drainage 200 250 80 Urine 270 405 170 Other: Voiding Method Indwelling Catheter Indwelling Catheter Indwelling Catheter ABP, PAP, CO, CI - Last Documented Arterial Blood Pressure 91/55 - Exam GENERAL: The patient is sedated and intubated HEENT: Pupils are round and equally reacting to light. EOMI. No scleral icterus. No conjunctival pallor. Normocephalic, atraumatic. No pharyngeal erythema. No thyromegaly. CARDIOVASCULAR: S1 and S2 present. No murmurs, rubs, or gallops. PULMONARY: Chest is clear to auscultation, no wheezing , no crackles. ABDOMEN: Soft, nontender, nondistended, normoactive bowel sounds. No palpable organomegaly. MUSCULOSKELETAL: No joint swelling or deformity. EXTREMITIES: No cyanosis, clubbing, or pedal edema. NEUROLOGICAL: Gross neurological examination did not reveal any focal deficits. SKIN: No rashes. no petechiae. - Labs CBC & Chem 7: 10/16/23 12:15 10/16/23 04:15 Labs: Abnormal Lab Results - Last 24 Hours (Table) 10/15/23 10/15/23 10/15/23 Range/Units 03:13 03:13 08:55 WBC (3.8-10.6) k/uL RBC (4.30-5.90) m/uL Hgb (13.0-17.5) gm/dL Hct (39.0-53.0) % Neutrophils # (1.3-7.7) k/uL Monocytes # (0-1.0) k/uL Basophils # (0-0.2) k/uL APTT (22.0-30.0) sec Fibrinogen (200-500) mg/dL ABG pH (7.35-7.45) ABG pO2 (83-108) mmHg ABG HCO3 (21-25) mmol/L ABG Total CO2 (19-24) mmol/L ABG O2 Saturation (94-97) % Sodium (137-145) mmol/L Chloride (98-107) mmol/L Carbon Dioxide (22-30) mmol/L BUN (9-20) mg/dL Creatinine (0.66-1.25) mg/dL Glucose (74-99) mg/dL POC Glucose (mg/dL) (70-110) mg/dL Calcium (8.4-10.2) mg/dL Phosphorus (2.5-4.5) mg/dL Total Bilirubin (0.2-1.3) mg/dL AST (17-59) U/L ALT (4-49) U/L Lactate Dehydrogenase 1958 H (120-246) U/L C-Reactive Protein 21.0 H (<1.0) mg/dL Total Protein (6.3-8.2) g/dL Albumin (3.5-5.0) g/dL Procalcitonin 2.08 H (0.02-0.09) ng/mL 10/15/23 10/15/23 10/15/23 Range/Units 12:44 15:50 15:50 WBC (3.8-10.6) k/uL RBC (4.30-5.90) m/uL Hgb (13.0-17.5) gm/dL Hct (39.0-53.0) % Neutrophils # (1.3-7.7) k/uL Monocytes # (0-1.0) k/uL Basophils # (0-0.2) k/uL APTT 79.4 H (22.0-30.0) sec Fibrinogen (200-500) mg/dL ABG pH (7.35-7.45) ABG pO2 (83-108) mmHg ABG HCO3 (21-25) mmol/L ABG Total CO2 (19-24) mmol/L ABG O2 Saturation (94-97) % Sodium (137-145) mmol/L Chloride (98-107) mmol/L Carbon Dioxide (22-30) mmol/L BUN (9-20) mg/dL Creatinine (0.66-1.25) mg/dL Glucose (74-99) mg/dL POC Glucose (mg/dL) 270 H (70-110) mg/dL Calcium (8.4-10.2) mg/dL Phosphorus (2.5-4.5) mg/dL Total Bilirubin (0.2-1.3) mg/dL AST (17-59) U/L ALT (4-49) U/L Lactate Dehydrogenase 2327 H (120-246) U/L C-Reactive Protein (<1.0) mg/dL Total Protein (6.3-8.2) g/dL Albumin (3.5-5.0) g/dL Procalcitonin (0.02-0.09) ng/mL 10/15/23 10/15/23 10/15/23 Range/Units 16:41 20:06 22:56 WBC (3.8-10.6) k/uL RBC (4.30-5.90) m/uL Hgb (13.0-17.5) gm/dL Hct (39.0-53.0) % Neutrophils # (1.3-7.7) k/uL Monocytes # (0-1.0) k/uL Basophils # (0-0.2) k/uL APTT (22.0-30.0) sec Fibrinogen 504 H (200-500) mg/dL ABG pH (7.35-7.45) ABG pO2 (83-108) mmHg ABG HCO3 (21-25) mmol/L ABG Total CO2 (19-24) mmol/L ABG O2 Saturation (94-97) % Sodium (137-145) mmol/L Chloride (98-107) mmol/L Carbon Dioxide (22-30) mmol/L BUN (9-20) mg/dL Creatinine (0.66-1.25) mg/dL Glucose (74-99) mg/dL POC Glucose (mg/dL) 204 H 216 H (70-110) mg/dL Calcium (8.4-10.2) mg/dL Phosphorus (2.5-4.5) mg/dL Total Bilirubin (0.2-1.3) mg/dL AST (17-59) U/L ALT (4-49) U/L Lactate Dehydrogenase (120-246) U/L C-Reactive Protein (<1.0) mg/dL Total Protein (6.3-8.2) g/dL Albumin (3.5-5.0) g/dL Procalcitonin (0.02-0.09) ng/mL 10/15/23 10/15/23 10/15/23 Range/Units 22:56 22:56 23:44 WBC 38.6 H (3.8-10.6) k/uL RBC 3.03 L (4.30-5.90) m/uL Hgb 9.3 L (13.0-17.5) gm/dL Hct 27.9 L (39.0-53.0) % Neutrophils # (1.3-7.7) k/uL Monocytes # (0-1.0) k/uL Basophils # (0-0.2) k/uL APTT (22.0-30.0) sec Fibrinogen (200-500) mg/dL ABG pH (7.35-7.45) ABG pO2 (83-108) mmHg ABG HCO3 (21-25) mmol/L ABG Total CO2 (19-24) mmol/L ABG O2 Saturation (94-97) % Sodium (137-145) mmol/L Chloride (98-107) mmol/L Carbon Dioxide (22-30) mmol/L BUN (9-20) mg/dL Creatinine (0.66-1.25) mg/dL Glucose (74-99) mg/dL POC Glucose (mg/dL) 199 H (70-110) mg/dL Calcium (8.4-10.2) mg/dL Phosphorus (2.5-4.5) mg/dL Total Bilirubin (0.2-1.3) mg/dL AST (17-59) U/L ALT (4-49) U/L Lactate Dehydrogenase 2285 H (120-246) U/L C-Reactive Protein (<1.0) mg/dL Total Protein (6.3-8.2) g/dL Albumin (3.5-5.0) g/dL Procalcitonin (0.02-0.09) ng/mL 10/16/23 10/16/23 10/16/23 Range/Units 04:14 04:15 04:15 WBC 37.6 H (3.8-10.6) k/uL RBC 2.72 L (4.30-5.90) m/uL Hgb 8.7 L (13.0-17.5) gm/dL Hct 24.8 L (39.0-53.0) % Neutrophils # 29.7 H (1.3-7.7) k/uL Monocytes # 3.4 H (0-1.0) k/uL Basophils # 0.3 H (0-0.2) k/uL APTT (22.0-30.0) sec Fibrinogen (200-500) mg/dL ABG pH (7.35-7.45) ABG pO2 (83-108) mmHg ABG HCO3 (21-25) mmol/L ABG Total CO2 (19-24) mmol/L ABG O2 Saturation (94-97) % Sodium 129 L (137-145) mmol/L Chloride 95 L (98-107) mmol/L Carbon Dioxide 33 H (22-30) mmol/L BUN 43 H (9-20) mg/dL Creatinine 1.97 H (0.66-1.25) mg/dL Glucose 155 H (74-99) mg/dL POC Glucose (mg/dL) 183 H (70-110) mg/dL Calcium 6.9 L (8.4-10.2) mg/dL Phosphorus 4.6 H (2.5-4.5) mg/dL Total Bilirubin 1.6 H (0.2-1.3) mg/dL AST 491 H (17-59) U/L ALT 147 H (4-49) U/L Lactate Dehydrogenase (120-246) U/L C-Reactive Protein (<1.0) mg/dL Total Protein 4.7 L (6.3-8.2) g/dL Albumin 2.0 L (3.5-5.0) g/dL Procalcitonin (0.02-0.09) ng/mL 10/16/23 10/16/23 10/16/23 Range/Units 05:16 07:01 08:30 WBC (3.8-10.6) k/uL RBC (4.30-5.90) m/uL Hgb (13.0-17.5) gm/dL Hct (39.0-53.0) % Neutrophils # (1.3-7.7) k/uL Monocytes # (0-1.0) k/uL Basophils # (0-0.2) k/uL APTT (22.0-30.0) sec Fibrinogen (200-500) mg/dL ABG pH 7.46 H (7.35-7.45) ABG pO2 129 H (83-108) mmHg ABG HCO3 32 H (21-25) mmol/L ABG Total CO2 33 H (19-24) mmol/L ABG O2 Saturation 98.0 H (94-97) % Sodium (137-145) mmol/L Chloride (98-107) mmol/L Carbon Dioxide (22-30) mmol/L BUN (9-20) mg/dL Creatinine (0.66-1.25) mg/dL Glucose (74-99) mg/dL POC Glucose (mg/dL) 185 H (70-110) mg/dL Calcium (8.4-10.2) mg/dL Phosphorus (2.5-4.5) mg/dL Total Bilirubin (0.2-1.3) mg/dL AST (17-59) U/L ALT (4-49) U/L Lactate Dehydrogenase 1948 H (120-246) U/L C-Reactive Protein (<1.0) mg/dL Total Protein (6.3-8.2) g/dL Albumin (3.5-5.0) g/dL Procalcitonin (0.02-0.09) ng/mL Assessment and Plan Assessment: Emergent cardiac cath and 5 stents placement Cardiogenic shock and possible septic shock secondary to above Acute hypoxic respiratory failure requiring intubation and mechanical ventilation Acute kidney injury Hyponatremia secondary to poor oral intake, COVID-19 Acute hypoxic respiratory failure secondary to COVID-19, now requiring oxygen via nasal cannula. Altered mental status, with toxic metabolic encephalopathy likely secondary to hypoxia as patient continues to remove oxygen mask from his face Generalized weakness Rhabdomyolysis. Improved Fall Urinary retention requiring indwelling Rosales catheter Hypothyroidism Hypertension Obesity with a BMI of 35.0 acute STEMI s/p Plan: Patient is continued on mechanical ventilation Continue with aspirin and Brilinta Patient is on heparin drip Cardiology consult following closely Pulmonary/critical care team following closely Patient s/p Impella with cardiology team Antibiotics were adjusted into meropenem and IV vancomycin by ID team Continue with insulin coverage Summer consult is on the case including ID team, pulmonary and nephrology Labs and medication were reviewed.. Continue same treatment. Continue with symptomatic treatment. Resume home medication. Monitor labs and vitals. DVT and GI prophylaxis. Further recommendations as per clinical course of the patient DVT prophylaxis: Subcutaneous Lovenox GI Prophylaxis: Pepcid PT/OT: heather prognosis is guarded
[2023-10-16 23:49] LABS: Glucose,Whole Blood 165 mg/dL (70-110)
[2023-10-17 02:07] LABS: HCT 24.4 % (39.0-53.0); HGB 8.2 gm/dL (13.0-17.5); MCH 31.1 pg (25.0-35.0); MCHC 33.5 g/dL (31.0-37.0); MCV 93.1 fL (80.0-100.0); Mean Platelet Volume 10.5; Platelet Count 124 k/uL (150-450); RBC 2.63 m/uL (4.30-5.90); RDW 13.9 % (11.5-15.5); WBC 26.7 k/uL (3.8-10.6)
[2023-10-17 03:41] LABS: Glucose,Whole Blood 148 mg/dL (70-110)
[2023-10-17 05:11] LABS: Basophils # (A) 0.1 k/uL (0-0.2); Basophils % (A) 0 %; Eosinophils # (A) 0.1 k/uL (0-0.7); Eosinophils % (A) 0 %; HCT 24.4 % (39.0-53.0); HGB 8.2 gm/dL (13.0-17.5); Lymphocytes # (A) 2.1 k/uL (1.0-4.8); Lymphocytes % (A) 8 %; MCH 31.5 pg (25.0-35.0); MCHC 33.8 g/dL (31.0-37.0); Mean Platelet Volume 10.3; Monocytes % (A) 8 %; Neutrophils # (A) 20.8 k/uL (1.3-7.7); Neutrophils % (A) 81 %; Platelet Count 122 k/uL (150-450); RBC 2.62 m/uL (4.30-5.90); RDW 13.9 % (11.5-15.5); WBC 25.6 k/uL (3.8-10.6)
[2023-10-17 05:15] LABS: African American GFR (CKD) 43 (>60 ml/min/1.73 sqM); Anion Gap 1 mmol/L; Blood Urea Nitrogen 53 mg/dL (9-20); Calcium 6.9 mg/dL (8.4-10.2); Carbon Dioxide 32 mmol/L (22-30); Chloride 99 mmol/L (98-107); Glucose 131 mg/dL (74-99); Magnesium 1.9 mg/dL (1.6-2.3); Non-African American GFR(CKD) 37 (>60 ml/min/1.73 sqM); Potassium 3.7 mmol/L (3.5-5.1); Sodium 132 mmol/L (137-145)
[2023-10-17] MEDS: POTASSIUM BICARBONATE/CIT AC 20 MEQ TABLET.EFF NG-TUBE SCH (05:31)
[2023-10-17] MEDS: MAGNESIUM SULFATE-D5W PMX 1 GM in DEXTROSE/WATER 1 100ML.BAG IVPB ONE (05:31)
[2023-10-17 05:52] LABS: ABG HCO3 32 mmol/L (21-25); ABG PCO2 43 mmHg (35-45); ABG PH 7.48 (7.35-7.45); ABG PO2 92 mmHg (83-108); ABG TCO2 33 mmol/L (19-24)
[2023-10-17 05:53] LABS: ABG Oxygen Saturation 97.4 % (94-97)
--- NOTE | 2023-10-17 07:51 | XR ---
EXAMINATION TYPE: XR chest 1V portable DATE OF EXAM: 10/17/2023 HISTORY: Shortness of breath. COMPARISON: 10/16/2023 TECHNIQUE: Single view of the chest is submitted. FINDINGS: Demonstrated are scattered senescent parenchymal change. Indwelling tubes and catheters are unchange d. Patchy perihilar infiltrates are noted to be unchanged from prior study. The heart is stable. Hilar and mediastinal structures are within normal limits. Degenerative changes are seen of the dorsal spine. IMPRESSION: 1. Patchy perihilar infiltrates are noted to be unchanged from prior study.
[2023-10-17 08:46] LABS: Glucose,Whole Blood 166 mg/dL (70-110)
--- NOTE | 2023-10-17 10:50 | P.PN ---
Subjective Patient is seen for follow-up for hyponatremia. Patient was transferred to ICU after CODE BLUE. He had runs of V. tach and was taken to [facility] for acute [facility] elevation [place]. Patient had 5 coronary stents placed. He had another cardiac arrest in the [facility]. This morning patient remains on the vent with FiO2 at 60%. Maintained on normal saline Serum creatinine is down to 1.75 Urine output has improved to about 60-80 mL an hour. Patient remains on Impella support Objective - Vital Signs Vital signs: Vital Signs Temp 101 F H 10/17/23 08:00 Pulse 110 H 10/17/23 10:00 Resp 3 L 10/17/23 10:00 BP 104/58 10/16/23 23:30 Pulse Ox 97 10/17/23 10:00 FiO2 60 10/17/23 08:00 Intake & Output 10/16/23 10/17/23 10/17/23 18:59 06:59 18:59 Intake Total 8866.384 3737.844 992.968 Output Total 815 1145 255 Balance 1091.945 776.844 737.968 Weight 117.3 kg Intake: IV 933 1175 924 A-line 72 72 24 Magnesium Sulfate-D5w Pmx 100 1 gm In Dextrose/Water 1 100ml.bag @ 100 mls/hr IVPB ONCE ONE Rx#: [id number] Meropenem 1 gm In Sodium 100 100 Chloride 0.9% 100 ml @ 33 .3 mls/hr IVPB Q8HR [place] Rx#:[id number] Sodium Bicarb (1 Meq/ml) 36 3 12.5 ml In Dextrose 5% in Water 500 ml @ Per Protocol IV DIRECTED [facility] Rx#:[id number] Sodium Chloride 0.9% 1, 825 300 000 ml @ 75 mls/hr IV . [id number] [place] Rx#:[id number] Sodium Chloride 0.9% 1, 825 75 000 ml In Empty Bag 1 bag @ 75 mls/hr IV .[id number] [place] Rx#:[id number] Vancomycin 1,750 mg In 500 Sodium Chloride 0.9% 500 ml 500 ml @ 167 mls/hr IVPB Q24HR [facility] Rx#: [id number] Intake, IV Titration 973.945 436.844 68.968 Amount Meropenem 1 gm In Sodium 100 Chloride 0.9% 100 ml @ 33 .3 mls/hr IVPB Q8HR [facility] Rx#:[id number] Norepinephrine 8 mg In 73.945 4.394 1.418 Sodium Chloride 0.9% 250 ml @ 0.03 MCG/KG/MIN 8. 504 mls/hr IV .Q24H [facility] Rx#:[id number] Vancomycin 1,750 mg In 500 Sodium Chloride 0.9% 500 ml 500 ml @ 167 mls/hr IVPB Q24HR [facility] Rx#: [id number] propofoL 1,000 mg In 200 Empty Bag 1 bag @ 30 MCG/ KG/MIN 26.37 mls/hr IV . Q3H48M [facility] Rx#:[id number] propofoL 1,000 mg In 100 432.450 67.55 Empty Bag 1 bag @ 30 MCG/ KG/MIN 26.37 mls/hr IV . Q3H48M [facility] Rx#:[id number] Oral 0 Blood Product 310 Rc As-1 Unit 310 [id number] Output: Gastric Drainage 130 200 Urine 685 945 255 Other: Voiding Method Indwelling Catheter Indwelling Catheter Indwelling Catheter ABP, PAP, CO, CI - Last Documented Arterial Blood Pressure 96/55 - Exam Patient is currently sedated and on the vent Examination of the heart S1 and S2 Examination of the lungs shows bilateral breath sounds are heard Abdomen is soft nontender Examination of lower extremity shows edema 2+ bilaterally VENDING ATTENDANT exam cannot be performed - Labs CBC & Chem 7: 10/17/23 04:56 10/17/23 04:56 Labs: Abnormal Lab Results - Last 24 Hours (Table) 10/16/23 10/16/23 10/16/23 Range/Units 12:15 12:15 14:30 WBC 33.6 H (3.8-10.6) k/uL RBC 2.45 L (4.30-5.90) m/uL Hgb 7.6 L (13.0-17.5) gm/dL Hct 22.7 L (39.0-53.0) % Plt Count (150-450) k/uL Neutrophils # (1.3-7.7) k/uL Monocytes # (0-1.0) k/uL Fibrinogen (200-500) mg/dL ABG pH (7.35-7.45) ABG HCO3 (21-25) mmol/L ABG Total CO2 (19-24) mmol/L ABG O2 Saturation (94-97) % Sodium (137-145) mmol/L Carbon Dioxide (22-30) mmol/L BUN (9-20) mg/dL Creatinine (0.66-1.25) mg/dL Glucose (74-99) mg/dL POC Glucose (mg/dL) 185 H (70-110) mg/dL Calcium (8.4-10.2) mg/dL Lactate Dehydrogenase 1939 H (120-246) U/L Crossmatch 10/16/23 10/16/23 10/16/23 Range/Units 16:54 17:40 19:53 WBC (3.8-10.6) k/uL RBC (4.30-5.90) m/uL Hgb (13.0-17.5) gm/dL Hct (39.0-53.0) % Plt Count (150-450) k/uL Neutrophils # (1.3-7.7) k/uL Monocytes # (0-1.0) k/uL Fibrinogen (200-500) mg/dL ABG pH (7.35-7.45) ABG HCO3 (21-25) mmol/L ABG Total CO2 (19-24) mmol/L ABG O2 Saturation (94-97) % Sodium (137-145) mmol/L Carbon Dioxide (22-30) mmol/L BUN (9-20) mg/dL Creatinine (0.66-1.25) mg/dL Glucose (74-99) mg/dL POC Glucose (mg/dL) 211 H 193 H (70-110) mg/dL Calcium (8.4-10.2) mg/dL Lactate Dehydrogenase (120-246) U/L Crossmatch See Detail 10/16/23 10/16/23 10/17/23 Range/Units 22:54 23:47 01:38 WBC 26.7 H (3.8-10.6) k/uL RBC 2.63 L (4.30-5.90) m/uL Hgb 8.2 L (13.0-17.5) gm/dL Hct 24.4 L (39.0-53.0) % Plt Count 124 L (150-450) k/uL Neutrophils # (1.3-7.7) k/uL Monocytes # (0-1.0) k/uL Fibrinogen (200-500) mg/dL ABG pH (7.35-7.45) ABG HCO3 (21-25) mmol/L ABG Total CO2 (19-24) mmol/L ABG O2 Saturation (94-97) % Sodium (137-145) mmol/L Carbon Dioxide (22-30) mmol/L BUN (9-20) mg/dL Creatinine (0.66-1.25) mg/dL Glucose (74-99) mg/dL POC Glucose (mg/dL) 165 H (70-110) mg/dL Calcium (8.4-10.2) mg/dL Lactate Dehydrogenase 1882 H (120-246) U/L Crossmatch 10/17/23 10/17/23 10/17/23 Range/Units 03:38 04:56 04:56 WBC 25.6 H (3.8-10.6) k/uL RBC 2.62 L (4.30-5.90) m/uL Hgb 8.2 L (13.0-17.5) gm/dL Hct 24.4 L (39.0-53.0) % Plt Count 122 L (150-450) k/uL Neutrophils # 20.8 H (1.3-7.7) k/uL Monocytes # 2.0 H (0-1.0) k/uL Fibrinogen (200-500) mg/dL ABG pH (7.35-7.45) ABG HCO3 (21-25) mmol/L ABG Total CO2 (19-24) mmol/L ABG O2 Saturation (94-97) % Sodium 132 L (137-145) mmol/L Carbon Dioxide 32 H (22-30) mmol/L BUN 53 H (9-20) mg/dL Creatinine 1.75 H (0.66-1.25) mg/dL Glucose 131 H (74-99) mg/dL POC Glucose (mg/dL) 148 H (70-110) mg/dL Calcium 6.9 L (8.4-10.2) mg/dL Lactate Dehydrogenase (120-246) U/L Crossmatch 10/17/23 10/17/23 10/17/23 Range/Units 05:50 06:59 06:59 WBC (3.8-10.6) k/uL RBC (4.30-5.90) m/uL Hgb (13.0-17.5) gm/dL Hct (39.0-53.0) % Plt Count (150-450) k/uL Neutrophils # (1.3-7.7) k/uL Monocytes # (0-1.0) k/uL Fibrinogen 521 H (200-500) mg/dL ABG pH 7.48 H (7.35-7.45) ABG HCO3 32 H (21-25) mmol/L ABG Total CO2 33 H (19-24) mmol/L ABG O2 Saturation 97.4 H (94-97) % Sodium (137-145) mmol/L Carbon Dioxide (22-30) mmol/L BUN (9-20) mg/dL Creatinine (0.66-1.25) mg/dL Glucose (74-99) mg/dL POC Glucose (mg/dL) (70-110) mg/dL Calcium (8.4-10.2) mg/dL Lactate Dehydrogenase 1998 H (120-246) U/L Crossmatch 10/17/23 Range/Units 08:44 WBC (3.8-10.6) k/uL RBC (4.30-5.90) m/uL Hgb (13.0-17.5) gm/dL Hct (39.0-53.0) % Plt Count (150-450) k/uL Neutrophils # (1.3-7.7) k/uL Monocytes # (0-1.0) k/uL Fibrinogen (200-500) mg/dL ABG pH (7.35-7.45) ABG HCO3 (21-25) mmol/L ABG Total CO2 (19-24) mmol/L ABG O2 Saturation (94-97) % Sodium (137-145) mmol/L Carbon Dioxide (22-30) mmol/L BUN (9-20) mg/dL Creatinine (0.66-1.25) mg/dL Glucose (74-99) mg/dL POC Glucose (mg/dL) 166 H (70-110) mg/dL Calcium (8.4-10.2) mg/dL Lactate Dehydrogenase (120-246) U/L Crossmatch Microbiology - Last 24 Hours (Table) 10/15/23 14:20 Gram Stain - Preliminary Sputum 10/15/23 13:18 Blood Culture - Preliminary Blood Assessment and Plan Assessment: 1. Hyponatremia. Associated with urine retention and hypervolemia. Patient was diuresed initially. Currently maintained on normal saline postcardiac arrest. 2. Acute kidney injury, initially secondary to urine retention however currently in ATN. Nonoliguric secondary to hypotension and cardiac arrest. No proteinuria on UA. No hydronephrosis noted on kidney ultrasound. 3. Urinary retention status post Rosales catheter placement. On Flomax. Urology following. 4. Benign hypertension. Controlled. 5. Hypokalemia from poor intake and postobstructive diuresis. Magnesium normal. 6. Rhabdomyolysis secondary to fall. 7. Status postcardiac arrest x [address] elevation [place] status post 5 coronary stents placement on 10/14/2023. 9. GI bleed Plan: DC normal saline Add midodrine Antiarrhythmic medications as per cardiology Repeat labs in a.m.
[2023-10-17 11:55] LABS: Glucose,Whole Blood 157 mg/dL (70-110)
[2023-10-17] MEDS: MIDODRINE 5 MG TAB PO SCH (11:59)
--- NOTE | 2023-10-17 12:55 | P.PN ---
Subjective Progress Note Date: 10/17/23 Principal diagnosis: Cardiac arrest and cardiogenic shock This is a 77-year-old male patient with a history of hypertension, seizure disorder, thyroid disorder, former smoker. On September 27, 2023 the patient had gotten up to go the bathroom and slumped onto the ground. He had been reportedly laying on the ground for several hours by family were attempting to get in helping him get up but he was unable to support himself. He also had trouble with urinary incontinence. EMS was called and he was brought here for evaluation. CT scan of the brain revealed no acute intracranial hemorrhage, midline shift or mass effect. EKG revealed sinus rhythm with no significant ST or T wave abnormalities. White count 14.9. Hemoglobin 12.9. Platelets 146. Sodium 126. Potassium 3.9. Bicarb 26. BUN 15. Creatinine 0.68. Glucose 152. AST 148. ALT 43. Creatinine kinase 2283. He did test positive for COVID-19 infection. His initial sodium level was 118. BUN of 24 and a creatinine of 1.26. He had been seen by nephrology, urology and infectious disease. A chest x-ray was done today September 30, 2023 that revealed an elevated right hemidiaphragm and we are consulted for the same. He was sent for a sniff test however the patient was unable to perform the appropriate maneuvers due to overall condition. He is seen on consultation on the selective care unit. He is currently resting in bed. Difficult to arouse but arousable. He is on a nonrebreather mask with O2 saturation of 90%. Currently afebrile. Hemodynamically stable. He has been initiated on Decadron. Antibiotics in the form of cefepime. Saline at 50 MLS per hour. Patient was evaluated today on 10/01/2023, more awake today, more responsive, seems to be more alert, and remains on a nonrebreather mask which I have recommended to transition to high flow nasal cannula. Patient did transition to 10 L high flow nasal cannula and O2 saturation was ranging between 92 up to 96% definitely better today compared to the last couple of days. Still planning to repeat his sniff test to evaluate for right hemidiaphragm paralysis. Procalcitonin level came back elevated at 0.43, patient remains on antibiotics for presumptive right lower lobe pneumonia. WBC count today 13.9 hemoglobin 13.0.Basic metabolic profile is relatively normal. Reevaluated today on 10/02/2023, patient is on 10 L high flow nasal cannula, doing better, breathing easier, O2 saturation is in the low 90s, patient continues to have diminished breath sounds at the right base, and I believe the patient has right hemidiaphragm paralysis with right lower lobe atelectasis, possible underlying pneumonia, but I feel clinically this is not the picture. At any rate the patient is supposed to have a sniff test tomorrow, may even have to consider a CT of the chest to evaluate the right lower lobe further. Based on the sniff test, further recommendations will follow. In the meantime patient is gradually improving, feeling better, breathing easier and definitely his neurological status is significantly improved now compared to how he was few days ago WBC count is 10.2 hemoglobin is 12.3, sodium is up to 130, potassium 3.1 renal profile is normal procalcitonin level on this patient was 0.43, hence he was empirically placed on antibiotics for presumptive right lower lobe pneumonia 10/16/2023, the patient remains critically ill intubated on the mechanical ventilator in the intensive care unit. He is postcardiac arrest and post emergent cardiac catheterization and a total of 5 stents were inserted and the patient was also given an Impella for hemodynamic support which is currently at p 7 augmentation with a flow of 3.2 L/min. The patient remains essentially unresponsive. He was given a brief sedation holiday yesterday to assess mentation. Immediately, the patient became restless, asynchronous with mechanical ventilator, and tachycardic and based on his underlying instability, propofol was restarted and which is currently running at 50 mcg/kg/min. He remains on assist-control mode of mechanical ventilation at the rate of 26, tidal volume of 450, FiO2 is at 60% with a PEEP of 15. Chest x-ray shows no major interval change. Blood gas from this morning shows a pH of 7.46 with a pCO2 of 44 and pO2 of 129. Hemodynamically, he remains unstable and hypotensive. Significant support still being provided to the Impella. Unable to tolerate lower levels of augmentation due to significant hypotension. While on P7, the patient is maintaining a mean arterial pressure of 70 and the patient is also on norepinephrine running at 0.02 mcg/kg/min. Cardiac rhythm is sinus tachycardia. No further episodes of ventricular arrhythmias. The patient was taken off the amiodarone and is also off the lidocaine drip. Urine output has dropped considerably and the patient also has developed an acute kidney injury. Creatinine is up to 1.9 with a BUN of 43. He is spiking temperature and his Tmax is 103.1. He remains on the same antibiotic coverage and he is currently on IV cefepime. Another complication is development of an upper GI bleed. Since yesterday afternoon, the patient had dark bloody output from his NG tube and a total amount has been in the order of 400 cc since yesterday. Based on his underlying GI bleed, IV heparin was discontinued. He remains on aspirin and Brilinta. He is off the Aggrastat for now. The hemoglobin has dropped down to 8.7. He remains in normal sinus rate of 75 cc an hour. Norepinephrine is running at 0.02 mcg/kg/min. IV heparin is discontinued. Rest of the blood work shows a WBC count of 37.6, hemoglobin 7.7 and a platelet count of 198. The serum bicarb is at 23 with a sodium level of 129. Blood sugar is at 188. Troponin peaked at 282. CPK was at 01/19/2023. He remains NPO. An echocardiogram was done yesterday and the patient was found to have significant impairment of the LV function with an ejection fraction of around 20%. Contacted the family, unable to get a hold of any family members. The family was supposed to arrive into the hospital to my understanding. Nevertheless, nobody showed up and we have placed multiple phone calls without getting any answers back. He is postcardiac arrest. Please refer to details of the cardiac intervention that was done as stated earlier. Patient was reevaluated today on 10/17/2023, remains in the ICU, intubated and mechanically ventilated. Patient is on assist-control rate of 26 tidal volume 450 FiO2 60% PEEP of 15 EGD showed a pO2 of 92 pCO2 43 pH of 7.48. No changes were made in his present ventilator settings. Patient continues to have Impella in place, it is at P7 augmentation, nonetheless, patient remains marginal at best. Ejection fraction is 20%. Patient is on propofol at 50 mcg/kg/min, he is also on IV fluid at 75 cc/h. Remains on Merrem and vancomycin, patient does not seem to be fully sedated, seems to be asynchronous with the ventilator today, hence I recommended increasing propofol up to 75 mcg/kg/min, and do Dilaudid as needed WBC count is 25.6 hemoglobin is 8.2. Fibrinogen is 521Basic metabolic profile is normal BUN is 53 creatinine 1.57. Chest x-ray showed patchy perihilar infiltrates, not much different from the chest x-ray prior. Looking back at the note, patient had his cardiac arrest on 10/14/2023, he was taken to the cardiac cath, underwent PTCA and stenting done. And he required intermittently pressor support/norepinephrine. Empirically the patient is on Merrem and vancomycin, patient has allergy to penicillin. Patient is being followed by infectious disease patient is off heparin. He is not requiring norepinephrine today, blood pressure is rather marginal. Output today is 3.3. CODE STATUS was changed to DNR CODE STATUS. The overall prognostic picture seems to be extremely poor Objective - Vital Signs Vital signs: Vital Signs Temp 101 F H 10/17/23 08:00 Pulse 106 H 10/17/23 11:31 Resp 29 H 10/17/23 11:00 BP 104/58 10/16/23 23:30 Pulse Ox 98 10/17/23 11:00 FiO2 60 10/17/23 11:13 Intake & Output 10/16/23 10/17/23 10/17/23 18:59 06:59 18:59 Intake Total 9155.460 1974.844 1095.968 Output Total 815 1145 405 Balance 1091.945 776.844 690.968 Weight 117.3 kg Intake: IV 933 1175 927 A-line 72 72 27 Magnesium Sulfate-D5w Pmx 100 1 gm In Dextrose/Water 1 100ml.bag @ 100 mls/hr IVPB ONCE ONE Rx#: [id number] Meropenem 1 gm In Sodium 100 100 Chloride 0.9% 100 ml @ 33 .3 mls/hr IVPB Q8HR [facility] Rx#:[id number] Sodium Bicarb (1 Meq/ml) 36 3 12.5 ml In Dextrose 5% in Water 500 ml @ Per Protocol IV DIRECTED [place] Rx#:[id number] Sodium Chloride 0.9% 1, 825 300 000 ml @ 75 mls/hr IV . [id number] [facility] Rx#:[id number] Sodium Chloride 0.9% 1, 825 75 000 ml In Empty Bag 1 bag @ 75 mls/hr IV .[id number] [place] Rx#:[id number] Vancomycin 1,750 mg In 500 Sodium Chloride 0.9% 500 ml 500 ml @ 167 mls/hr IVPB Q24HR [place] Rx#: [id number] Intake, IV Titration 973.945 436.844 168.968 Amount Meropenem 1 gm In Sodium 100 Chloride 0.9% 100 ml @ 33 .3 mls/hr IVPB Q8HR [place] Rx#:[id number] Norepinephrine 8 mg In 73.945 4.394 1.418 Sodium Chloride 0.9% 250 ml @ 0.03 MCG/KG/MIN 8. 504 mls/hr IV .Q24H [place] Rx#:[id number] Vancomycin 1,750 mg In 500 Sodium Chloride 0.9% 500 ml 500 ml @ 167 mls/hr IVPB Q24HR [place] Rx#: [id number] propofoL 1,000 mg In 200 Empty Bag 1 bag @ 30 MCG/ KG/MIN 26.37 mls/hr IV . Q3H48M [place] Rx#:[id number] propofoL 1,000 mg In 100 432.450 167.55 Empty Bag 1 bag @ 30 MCG/ KG/MIN 26.37 mls/hr IV . Q3H48M [place] Rx#:[id number] Oral 0 Blood Product 310 Rc As-1 Unit 310 [id number] Output: Gastric Drainage 130 200 100 Urine 685 945 305 Other: Voiding Method Indwelling Catheter Indwelling Catheter Indwelling Catheter ABP, PAP, CO, CI - Last Documented Arterial Blood Pressure 95/56 - Exam General: Reveals 77-year-old white male obese, intubated mechanically ventilated, sedated. Not in distress Head: Atraumatic normocephalic. Skin: Skin is warm and dry and no rashes or lesions are noted. Eye: Pupils are equal, round and reactive to light, extra-ocular movements are intact; there is normal conjunctiva bilaterally. Ears, nose, mouth and throat: There are moist mucous membranes and no oral lesions. Tracheal tube is intact, orogastric tube is intact. Neck: The neck is supple, there is no tenderness or JVD. Cardiovascular: Send S1-S2, no S3 gallop, 2/6 systolic murmur throughout the precordium Respiratory: Distant breath sound bilaterally no crackles rhonchi or wheezes Gastrointestinal: Obese, soft, nontender, no megaly, no rebound, no guarding. Musculoskeletal: No deformities noted, extremities showed no clubbing, 2+ bipedal edema, no cyanosis Neurological: Cannot assess, fully sedated Psychiatric: Not assess - Labs CBC & Chem 7: 10/17/23 04:56 10/17/23 04:56 Labs: Abnormal Lab Results - Last 24 Hours (Table) 10/16/23 10/16/23 10/16/23 Range/Units 14:30 16:54 17:40 WBC (3.8-10.6) k/uL RBC (4.30-5.90) m/uL Hgb (13.0-17.5) gm/dL Hct (39.0-53.0) % Plt Count (150-450) k/uL Neutrophils # (1.3-7.7) k/uL Monocytes # (0-1.0) k/uL Fibrinogen (200-500) mg/dL ABG pH (7.35-7.45) ABG HCO3 (21-25) mmol/L ABG Total CO2 (19-24) mmol/L ABG O2 Saturation (94-97) % Sodium (137-145) mmol/L Carbon Dioxide (22-30) mmol/L BUN (9-20) mg/dL Creatinine (0.66-1.25) mg/dL Glucose (74-99) mg/dL POC Glucose (mg/dL) 211 H (70-110) mg/dL Calcium (8.4-10.2) mg/dL Lactate Dehydrogenase 1939 H (120-246) U/L Crossmatch See Detail 10/16/23 10/16/23 10/16/23 Range/Units 19:53 22:54 23:47 WBC (3.8-10.6) k/uL RBC (4.30-5.90) m/uL Hgb (13.0-17.5) gm/dL Hct (39.0-53.0) % Plt Count (150-450) k/uL Neutrophils # (1.3-7.7) k/uL Monocytes # (0-1.0) k/uL Fibrinogen (200-500) mg/dL ABG pH (7.35-7.45) ABG HCO3 (21-25) mmol/L ABG Total CO2 (19-24) mmol/L ABG O2 Saturation (94-97) % Sodium (137-145) mmol/L Carbon Dioxide (22-30) mmol/L BUN (9-20) mg/dL Creatinine (0.66-1.25) mg/dL Glucose (74-99) mg/dL POC Glucose (mg/dL) 193 H 165 H (70-110) mg/dL Calcium (8.4-10.2) mg/dL Lactate Dehydrogenase 1882 H (120-246) U/L Crossmatch 10/17/23 10/17/23 10/17/23 Range/Units 01:38 03:38 04:56 WBC 26.7 H (3.8-10.6) k/uL RBC 2.63 L (4.30-5.90) m/uL Hgb 8.2 L (13.0-17.5) gm/dL Hct 24.4 L (39.0-53.0) % Plt Count 124 L (150-450) k/uL Neutrophils # (1.3-7.7) k/uL Monocytes # (0-1.0) k/uL Fibrinogen (200-500) mg/dL ABG pH (7.35-7.45) ABG HCO3 (21-25) mmol/L ABG Total CO2 (19-24) mmol/L ABG O2 Saturation (94-97) % Sodium 132 L (137-145) mmol/L Carbon Dioxide 32 H (22-30) mmol/L BUN 53 H (9-20) mg/dL Creatinine 1.75 H (0.66-1.25) mg/dL Glucose 131 H (74-99) mg/dL POC Glucose (mg/dL) 148 H (70-110) mg/dL Calcium 6.9 L (8.4-10.2) mg/dL Lactate Dehydrogenase (120-246) U/L Crossmatch 10/17/23 10/17/23 10/17/23 Range/Units 04:56 05:50 06:59 WBC 25.6 H (3.8-10.6) k/uL RBC 2.62 L (4.30-5.90) m/uL Hgb 8.2 L (13.0-17.5) gm/dL Hct 24.4 L (39.0-53.0) % Plt Count 122 L (150-450) k/uL Neutrophils # 20.8 H (1.3-7.7) k/uL Monocytes # 2.0 H (0-1.0) k/uL Fibrinogen 521 H (200-500) mg/dL ABG pH 7.48 H (7.35-7.45) ABG HCO3 32 H (21-25) mmol/L ABG Total CO2 33 H (19-24) mmol/L ABG O2 Saturation 97.4 H (94-97) % Sodium (137-145) mmol/L Carbon Dioxide (22-30) mmol/L BUN (9-20) mg/dL Creatinine (0.66-1.25) mg/dL Glucose (74-99) mg/dL POC Glucose (mg/dL) (70-110) mg/dL Calcium (8.4-10.2) mg/dL Lactate Dehydrogenase (120-246) U/L Crossmatch 10/17/23 10/17/23 10/17/23 Range/Units 06:59 08:44 11:53 WBC (3.8-10.6) k/uL RBC (4.30-5.90) m/uL Hgb (13.0-17.5) gm/dL Hct (39.0-53.0) % Plt Count (150-450) k/uL Neutrophils # (1.3-7.7) k/uL Monocytes # (0-1.0) k/uL Fibrinogen (200-500) mg/dL ABG pH (7.35-7.45) ABG HCO3 (21-25) mmol/L ABG Total CO2 (19-24) mmol/L ABG O2 Saturation (94-97) % Sodium (137-145) mmol/L Carbon Dioxide (22-30) mmol/L BUN (9-20) mg/dL Creatinine (0.66-1.25) mg/dL Glucose (74-99) mg/dL POC Glucose (mg/dL) 166 H 157 H (70-110) mg/dL Calcium (8.4-10.2) mg/dL Lactate Dehydrogenase 1998 H (120-246) U/L Crossmatch Microbiology - Last 24 Hours (Table) 10/15/23 14:20 Gram Stain - Preliminary Sputum 10/15/23 13:18 Blood Culture - Preliminary Blood Assessment and Plan Assessment: Impression: Cardiac arrest with ventricular tachycardia and ventricular fibrillation, status post cardiac catheterization for acute lateral ST segment elevation myocardial infarction and the patient underwent emergent cardiac catheterization. The patient underwent a complicated coronary intervention requiring Impella for hemodynamic support, stenting of the left main, circumflex, proximal and mid RCA. A total of 5 stents were inserted. Currently, receiving Impella for hemodynamic support and norepinephrine is running at 0.02 mcg/kg/min. He is still maintained on hemodynamic support utilizing Impella, P7 level of support. Acute hypoxic respiratory failure secondary to cardiac arrest Ventricular tachycardia/VF, postacute OR Upper GI bleeding related to various antiplatelet agents and anticoagulation patient is now off heparin he is on aspirin and Plavix Acute blood loss anemia requiring transfusion Acute kidney injury, could be cardiorenal in nature. Patient has severe LV dysfunction. Acute febrile illness, exact etiology is not clear patient is empirically on antibiotics Acute hypoxic metabolic encephalopathy History of COVID-19 pneumonia, recovering Right hemidiaphragm elevation possible paralysis History of seizure disorder History of hypothyroidism History of hypertension Ex-smoker Severe LV dysfunction with ejection fraction of 20% Recommendation: Continue ventilatory support Continue hemodynamic support Cardiology to decide regarding his Impella device Use norepinephrine as needed presently off norepinephrine. Continue nutritional support/enteral feeding Continue aspirin and Brilinta Continue empiric antibiotics as ordered by infectious disease on the case. Continue to monitor and address renal profile on a daily basis Patient is not quite ready for any weaning today, Considering his overall picture, I believe DNR code is appropriate, and would suggest addressing possibly comfort care with family. Patient is critically ill, he has multiple comorbidities, prognosis is extremely poor. Will continue to follow. Critical care time is over 30 minutes
[2023-10-17] MEDS: fentaNYL (PF). 1,000 MCG in SODIUM CHLORIDE 0.9% 80 ML IV SCH (14:40)
--- NOTE | 2023-10-17 15:48 | P.PN ---
Subjective Progress Note Date: 10/17/23 ACS This is a 77-year-old gentleman with history of hypertension and dyslipidemia and seizure disorder and thyroid disease and prior history of smoking. The patient was admitted to the hospital initially with a change in mental status after he fell in the bathroom at home. The patient lives with his grandson. We consulted to see the patient because of cardiac arrest with ventricular fibrillation/ventricular tachycardia where the patient subsequently received CPR according to the nurse taking care of him for about 12 hours and then he was intubated and he was brought to the intensive care unit. The history was taken from the chart because the patient was already intubated when he was seen in the intensive care unit. He was found on the floor by his family for several hours. He was weak. He attempted to get up but he could not. EMS was called and the patient was brought to the emergency department by ambulance. He underwent further investigation including CT scan of the brain which showed no acute abnormalities and EKG showed sinus mechanism with nonspecific ST and T wave abnormalities. Hemoglobin was within normal limits. Electrolytes were within normal limits beside hyponatremia. The chest x-ray showed no acute abnormalities beside elevated right hemidiaphragm. He was diagnosed with acute hypoxic respiratory failure and also he had recent coronavirus infection. During his hospital stay he had a cardiac arrest with V-fib. He was converted to normal sinus mechanism after he received CPR and received amiodarone and lidocaine. I did review the EKG when I I was called to see the patient and that showed lateral ST segment elevation myocardial infarction. STEMI code was called. The patient was brought to the cardiac [facility] immediately and he underwent an emergent heart catheterization and that revealed severe disease involving the ostial and proximal right coronary artery with occluded left circumflex appeared to be an acute occlusion. The lesion in the left circumflex was extremely complex and was very hard to cross. During the procedure he had another episode of cardiac arrest with pulseless electrical activities and we lost the floor in the left coronary system. The patient ended having stenting in the left main to LAD and stenting of the obtuse marginal branch and stenting of the right coronary artery and Impella CP was placed to support the pressure. Please refer to the procedure note for further details. The examination showed distant heart sounds with regular rhythm and soft nontender abdomen and diminished breathing sounds bilaterally. No edema was noted in the lower extremities October 15, 2023 The patient was seen and evaluated this morning. He continues to be intubated on mechanical ventilation. The chest x-ray was reviewed. He is off vasopressors but continues to be on norepinephrine which is in process to weaned from norepinephrine. He continues to be on heparin and Aggrastat. He is on dual antiplatelet therapy along with a statin. Hemodynamically he is overall slightly better. He has been maintaining normal sinus mechanism. From the cardiovascular standpoint of view I will continue the current medical regimen and switch the patient to oral amiodarone and DC lidocaine and stop Aggrastat at 18 hours. Apparently he cannot be on any beta-yazmin or FLORIN inhibitor at this point giving the low blood pressure. The examination is remarkable for regular rhythm with a distant heart sounds and diminished breathing sounds bilaterally and he does have a good Doppler signal in the left foot. October 16, 2023 The patient was seen and evaluated this morning. He continues to be on norepinephrine only at the small dose. His hemoglobin dropped to around 7 with ongoing to give the patient 1 unit of packed RBC hopefully we can wean him from norepinephrine and also hopefully it will improve the section of the arm on the Impella. Neurologically he is slightly better after the sedation was weaned. He continues to be on dual antiplatelet therapy. He continues to be on amiodarone. He continues to be on statin. Urine output has been marginal. I had a long discussion with the family in details about the condition and about the prognosis overall and they are in full understanding the poor prognosis overall. The examination is remarkable for regular rhythm with a distant heart sounds and diminished breathing sounds bilaterally and bilateral lower extremities edema noted. We had to stop the heparin because of gastrointestinal bleeding. The last episode of gastrointestinal bleeding was earlier this morn ing. 10/17/2023 Patient seen and examined at bedside this a.m. He is on norepinephrine 0.02. He is on Impella with P7 with 3 L output. MAP around 65 to 70 mmHg. Patient does not have any Conger catheter in place. Bedside echocardiogram showed an EF of 10 to 15% with normally positioned Impella. IVC is not dilated Inputs and outputs: Around 500 cc of urine last 24 hours with total of 700 cc positive fluid balance. Labs: Hb 8.2, creatinine 1.75, BUN 53, sodium 132. 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 Do not increase norepinephrine if blood pressure or MAP drops. Try going up on Impella power if needed. Present patient was on P7. Will reduce it to P6 with a goal of reducing it to P4 by tonight. Will maintain him on P4 overnight. Continue bicarb dextrose purge. No need of IV heparin, especially in view of GI bleeding. If patient is able to tolerate P4, next step will be to discontinue norepi nephrine. Once norepinephrine is discontinued, will assess if he can take of Impella and start patient on dobutamine. Monitor inputs and outputs. At present patient has positive fluid balance. Con inward toll operator giving diuretic. Objective - Vital Signs Vital signs: Vital Signs Temp 100.1 F H 10/17/23 12:00 Pulse 105 H 10/17/23 15:07 Resp 23 10/17/23 13:00 BP 104/58 10/16/23 23:30 Pulse Ox 98 10/17/23 13:00 FiO2 60 10/17/23 15:06 Intake & Output 10/16/23 10/17/23 10/17/23 18:59 06:59 18:59 Intake Total 7632.385 6186.844 1361.245 Output Total 815 1145 625 Balance 1091.945 776.844 736.245 Weight 117.3 kg Intake: IV 933 1175 954 A-line 72 72 54 Magnesium Sulfate-D5w Pmx 100 1 gm In Dextrose/Water 1 100ml.bag @ 100 mls/hr IVPB ONCE ONE Rx#: [id number] Meropenem 1 gm In Sodium 100 100 Chloride 0.9% 100 ml @ 33 .3 mls/hr IVPB Q8HR [facility] Rx#:[id number] Sodium Bicarb (1 Meq/ml) 36 3 12.5 ml In Dextrose 5% in Water 500 ml @ Per Protocol IV DIRECTED [facility] Rx#:[id number] Sodium Chloride 0.9% 1, 825 300 000 ml @ 75 mls/hr IV . [id number] [facility] Rx#:[id number] Sodium Chloride 0.9% 1, 825 75 000 ml In Empty Bag 1 bag @ 75 mls/hr IV .[id number] [facility] Rx#:[id number] Vancomycin 1,750 mg In 500 Sodium Chloride 0.9% 500 ml 500 ml @ 167 mls/hr IVPB Q24HR [facility] Rx#: [id number] Intake, IV Titration 973.945 436.844 407.245 Amount Meropenem 1 gm In Sodium 100 Chloride 0.9% 100 ml @ 33 .3 mls/hr IVPB Q8HR [facility] Rx#:[id number] Norepinephrine 8 mg In 73.945 4.394 32.462 Sodium Chloride 0.9% 250 ml @ 0.03 MCG/KG/MIN 8. 504 mls/hr IV .Q24H [facility] Rx#:[id number] Vancomycin 1,750 mg In 500 Sodium Chloride 0.9% 500 ml 500 ml @ 167 mls/hr IVPB Q24HR [facility] Rx#: [id number] fentaNYL (PF). 1,000 mcg 7.233 In Sodium Chloride 0.9% 80 ml @ 0.5 MCG/KG/HR 5. 865 mls/hr IV .Q17H4M [facility] Rx#:[id number] propofoL 1,000 mg In 200 Empty Bag 1 bag @ 30 MCG/ KG/MIN 26.37 mls/hr IV . Q3H48M [facility] Rx#:[id number] propofoL 1,000 mg In 100 432.450 367.55 Empty Bag 1 bag @ 30 MCG/ KG/MIN 26.37 mls/hr IV . Q3H48M [facility] Rx#:[id number] Oral 0 Blood Product 310 Rc As-1 Unit 310 [id number] Output: Gastric Drainage 130 200 100 Urine 685 945 525 Other: Voiding Method Indwelling Catheter Indwelling Catheter Indwelling Catheter ABP, PAP, CO, CI - Last Documented Arterial Blood Pressure 100/53 - Labs CBC & Chem 7: 10/17/23 04:56 10/17/23 04:56 Labs: Abnormal Lab Results - Last 24 Hours (Table) 10/16/23 10/16/23 10/16/23 Range/Units 14:30 16:54 17:40 WBC (3.8-10.6) k/uL RBC (4.30-5.90) m/uL Hgb (13.0-17.5) gm/dL Hct (39.0-53.0) % Plt Count (150-450) k/uL Neutrophils # (1.3-7.7) k/uL Monocytes # (0-1.0) k/uL Fibrinogen (200-500) mg/dL ABG pH (7.35-7.45) ABG HCO3 (21-25) mmol/L ABG Total CO2 (19-24) mmol/L ABG O2 Saturation (94-97) % Sodium (137-145) mmol/L Carbon Dioxide (22-30) mmol/L BUN (9-20) mg/dL Creatinine (0.66-1.25) mg/dL Glucose (74-99) mg/dL POC Glucose (mg/dL) 211 H (70-110) mg/dL Calcium (8.4-10.2) mg/dL Lactate Dehydrogenase 1939 H (120-246) U/L Crossmatch See Detail 10/16/23 10/16/23 10/16/23 Range/Units 19:53 22:54 23:47 WBC (3.8-10.6) k/uL RBC (4.30-5.90) m/uL Hgb (13.0-17.5) gm/dL Hct (39.0-53.0) % Plt Count (150-450) k/uL Neutrophils # (1.3-7.7) k/uL Monocytes # (0-1.0) k/uL Fibrinogen (200-500) mg/dL ABG pH (7.35-7.45) ABG HCO3 (21-25) mmol/L ABG Total CO2 (19-24) mmol/L ABG O2 Saturation (94-97) % Sodium (137-145) mmol/L Carbon Dioxide (22-30) mmol/L BUN (9-20) mg/dL Creatinine (0.66-1.25) mg/dL Glucose (74-99) mg/dL POC Glucose (mg/dL) 193 H 165 H (70-110) mg/dL Calcium (8.4-10.2) mg/dL Lactate Dehydrogenase 1882 H (120-246) U/L Crossmatch 10/17/23 10/17/23 10/17/23 Range/Units 01:38 03:38 04:56 WBC 26.7 H (3.8-10.6) k/uL RBC 2.63 L (4.30-5.90) m/uL Hgb 8.2 L (13.0-17.5) gm/dL Hct 24.4 L (39.0-53.0) % Plt Count 124 L (150-450) k/uL Neutrophils # (1.3-7.7) k/uL Monocytes # (0-1.0) k/uL Fibrinogen (200-500) mg/dL ABG pH (7.35-7.45) ABG HCO3 (21-25) mmol/L ABG Total CO2 (19-24) mmol/L ABG O2 Saturation (94-97) % Sodium 132 L (137-145) mmol/L Carbon Dioxide 32 H (22-30) mmol/L BUN 53 H (9-20) mg/dL Creatinine 1.75 H (0.66-1.25) mg/dL Glucose 131 H (74-99) mg/dL POC Glucose (mg/dL) 148 H (70-110) mg/dL Calcium 6.9 L (8.4-10.2) mg/dL Lactate Dehydrogenase (120-246) U/L Crossmatch 10/17/23 10/17/23 10/17/23 Range/Units 04:56 05:50 06:59 WBC 25.6 H (3.8-10.6) k/uL RBC 2.62 L (4.30-5.90) m/uL Hgb 8.2 L (13.0-17.5) gm/dL Hct 24.4 L (39.0-53.0) % Plt Count 122 L (150-450) k/uL Neutrophils # 20.8 H (1.3-7.7) k/uL Monocytes # 2.0 H (0-1.0) k/uL Fibrinogen 521 H (200-500) mg/dL ABG pH 7.48 H (7.35-7.45) ABG HCO3 32 H (21-25) mmol/L ABG Total CO2 33 H (19-24) mmol/L ABG O2 Saturation 97.4 H (94-97) % Sodium (137-145) mmol/L Carbon Dioxide (22-30) mmol/L BUN (9-20) mg/dL Creatinine (0.66-1.25) mg/dL Glucose (74-99) mg/dL POC Glucose (mg/dL) (70-110) mg/dL Calcium (8.4-10.2) mg/dL Lactate Dehydrogenase (120-246) U/L Crossmatch 10/17/23 10/17/23 10/17/23 Range/Units 06:59 08:44 11:53 WBC (3.8-10.6) k/uL RBC (4.30-5.90) m/uL Hgb (13.0-17.5) gm/dL Hct (39.0-53.0) % Plt Count (150-450) k/uL Neutrophils # (1.3-7.7) k/uL Monocytes # (0-1.0) k/uL Fibrinogen (200-500) mg/dL ABG pH (7.35-7.45) ABG HCO3 (21-25) mmol/L ABG Total CO2 (19-24) mmol/L ABG O2 Saturation (94-97) % Sodium (137-145) mmol/L Carbon Dioxide (22-30) mmol/L BUN (9-20) mg/dL Creatinine (0.66-1.25) mg/dL Glucose (74-99) mg/dL POC Glucose (mg/dL) 166 H 157 H (70-110) mg/dL Calcium (8.4-10.2) mg/dL Lactate Dehydrogenase 1998 H (120-246) U/L Crossmatch Microbiology - Last 24 Hours (Table) 10/15/23 14:20 Gram Stain - Preliminary Sputum 10/15/23 13:18 Blood Culture - Preliminary Blood
[2023-10-17 16:57] LABS: Glucose,Whole Blood 180 mg/dL (70-110)
--- NOTE | 2023-10-17 19:40 | P.PN ---
Subjective patient is a 77-year-old gentleman past medical history significant for hypothyroidism, hypertension who presented to the ER for generalized weakness and fall. Patient was brought in by family members, apparently patient was trying to use the restroom when he lost all his strength and slumped to the ground. There was no complaint of any loss of consciousness. No complaint of weakness of any extremity. Family did not notice any slurred speech or facial droop. There was no complaint of fever or chills. No complaint of nausea, vomiting, abdominal pain. Patient's family tried to help him to get up but they were unable to lift him. They called EMS and they brought him to ER. Initial lab work done in the ER showed WBC 10.5, hemoglobin 15.2, platelet count 165, sodium 118, potassium 4.1, BUN 24, creatinine 1.26, plasma lactate 4.1, tro ponin 0.012 UA negative for any infection EKG done in the ER showed heart rate of 75, no ST segment elevation or depression seen, no T-wave inversions seen. Chest x-ray done in the ER no acute cardiopulmonary process CT head done showed no acute intracranial process Patient admitted to internal medicine service 09/29. Patient seen and examined. COVID-19 came back positive. Currently on 4 L of oxygen. Sodium this morning is 121. Still complain lethargy and weakness. Patient also diagnosed with COVID 09/30. Patient seen and examined. Blood work done this morning showed WBC 14.9, hemoglobin 12.9, platelet count 146, sodium 126, potassium 3.9, BUN 15, creatinine 0.68. States he feels much better. Shortness of breath is improved. 10/01. Patient seen and examined. Still on 15 L of oxygen via nonrebreather. States he feels better. Sodium level improved to 132, potassium 3.3, BUN 18, creatinine 0.65. Lethargy has improved. 10/02. Patient seen and examined. Currently on 8 L of oxygen via high flow nasal cannula. States he feels much better, breathing is improved, pulmonology recommended sniff test to look for right diaphragm paralysis 10/03. Patient seen and examined. Continues to be on 15 L of oxygen. Patient is not lethargic, states gets short of breath on exertion. Denies any nausea or vomiting 10/04/2023 Patient seen and evaluated in follow-up today continues to be dyspneic maintained on high flow oxygen is being transferred to [facility]. Per nursing staff he continues to remove his nasal cannula as well as nonrebreather and respiratory following recommending i continuing this for a few hours. Patient has noted to be COVID-positive. Sodium is slightly low at 132 potassium was 3.3 yesterday and replaced awaiting follow-up labs. Patient with prolonged hospitalization and continued weakness will likely need ECF once stabilized. 10/05/2023 Patient is seen in follow-up this morning continues on Airvo with maximum oxygen at 60/90 maintaining oxygen saturations in the 88 percentile range. Patient reports having worsening shortness of breath although appears somewhat confused at times. Discussed CODE STATUS with the patient and he wishes to remain full code. Patient is agreeable to mechanical ventilation if required. Patient continues to remove his oxygen from his face desats very quickly. Will get a chest x-ray and continue to monitor closely. Pulmonary and infectious disease following and patient is continued on cefepime with concerns of pneumonia. Patient is currently afebrile and denies chest pain or shortness of breath. Patient reports he is eating although not much of an appetite. 10/06/2023 Patient is seen in follow-up today was transferred to the ICU for respiratory decline per nursing staff as patient continued to have respiratory distress and low oxygen saturations becoming more hypoxic and confused. Patient is continued on Airvo max 60/90 with continued intermittent nonrebreather use. Patient is continued on steroids along with inhalers and pulmonary is following closely. Patient is afebrile with no reported chest pain or shortness of breath. Patient reports to tolerating diet although appears not to be eating very much at all. 10/07/2023 Patient is seen and evaluated in follow-up today continues in the ICU on high flow Airvo 60 L / 90% with oxygen saturations in the low 90s. On exam patient was found to have Airvo out of his nostrils and using nonrebreather and oxygen saturation was 93%. 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 CODE STATUS was addressed once again and patient wishes to remain full code. Wean FiO2 as t olerated. Encouraged oral intake. Patient to be evaluated by physical therapy once respiratory status improved and will need rehab. 10/09/2023 Patient lying in bed, mildly tachypneic with no chest pain He remains on Airvo 60 L/min Vital stable Remains on dexamethasone and Pepcid Resume of the care of the patient 10/12/2023 Patient with Covid infection and possible right lower lobe pneumonia finish her antibiotics. He does not need antiviral therapy but there is evidence of oral thrush and discovered covered with Diflucan and received nystatin as well. His leukocytosis stable about 18k, no fever. Patient also with fluid overload and hyponatremia sodium 1:30 status post 1 Samsca today, also patient is on IV Lasix 40 mg twice daily Patient currently is oxygen via nasal cannula saturating 88% which is improved from previous, airvo oxygen was stopped 10/13/2023 Patient is clinically stable. He is awake and alert not in distress his breathing is improving and currently he is on 4-5 L/m of oxygen which is a stable Has good air entry bilaterally. I discussed the case with pulmonary team and patient might be considered for discharge from their perspective is also on Diflucan and WBCs 18,000 Status post Samsca and sodium stable at 1:30, low potassium replaced I discussed the case with nursing home social worker and patient does not need a bone isolation for his Covid. However he is prior authorization Possible discharge in 24-48 hours 10/14/23 Patient mentation is at baseline No new complaints, no chest pain no significant dyspnea He remains on 5 L oxygen via nasal cannula WBC improved down to 12,000, hemoglobin 12, sodium slightly low at 127, glucose controlled. Ejection fraction 60-65% Remains on Diflucan. Today IV Lasix switched to by mouth 40 mg twice daily Discussed with director case, still pending placement. Still family having contacted staff. 10/15/2023 Patient condition deteriorated and patient developed CODE BLUE called for him and he underwent CPR per protocol with downtime estimated about 7 to 10 minutes He was taken emergently to the [facility] and a total of 5 stents placed into his coronary arteries. Postprocedure patient was taken to the ICU intubated and s edated Also he was started on Impella for hemodynamic support He was started also on aspirin, Brilinta and heparin drip Also patient developed leukocytosis up to 1 31,000 hemoglobin stable around 12. Sodium 129 Creatinine stable at 1.1 10/16/2023 Patient remains in the ICU sedated and intubated Today he lost about 400 to 500 mL of dark-colored fluid through his NG tube so heparin drip was stopped. While patient kept on aspirin and Brilinta History requires Impella in place with cardiology and critical care team following closely He remains on intubated on mechanical ventilation for respiratory support He has significant leukocytosis up to 33,000 and is currently covered with IV vancomycin and meropenem. He has been spiking fever today Also his creatinine jumped up to 1.9 and he developed acute kidney injury His condition remains critical Case discussed with staff and critical care team Patient remains in the ICU intubated and sedated, and he has been monitoring closely. They tried to wean him yesterday and he got agitated. His currently on sedative and propofol His ejection fraction is low indicating cardiogenic shock, EF is around 10 to 20% compared to 66% on the previous days. This is after the STEMI and cardiac arrest. Patient currently on Impella and small dose of Levophed with cardiology and critical care following closely. Stool wean him off Impella if that works then possibly stop Levophed and later on switched Impella to dobutamine this works. Patient does not need heparin drip and he is continued on a dual antiplatelet therapy and statin Also midodrine was added today. His condition remains critical Active Medications Generic Name Dose Route Start Last Admin Trade Name Freq PRN Reason Stop Dose Admin Acetaminophen 650 mg 09/28/23 01:38 10/16/23 04:43 Acetaminophen Tab 325 Mg Tab PO 650 mg Q4HR PRN Administration Fever and/or Mild Pain Al Hydroxide/Mg Hydroxide 30 ml 10/15/23 00:00 Mag Hydrox/Al Hydrox/Simeth 30 Ml Cup PO Q4HR PRN Heartburn Albuterol Sulfate 2.5 mg 10/15/23 08:00 10/17/23 15:07 Albuterol Nebulized 2.5 Mg/3 Ml INHALATION 2.5 mg RT-QID OH Administration Amiodarone HCl 400 mg 10/15/23 10:08 10/17/23 08:49 Amiodarone 200 Mg Tab PO 400 mg BID OH Administration Aspirin 81 mg 10/15/23 10:19 10/17/23 08:49 Aspirin 81 Mg PO 81 mg DAILY OH Administration Atorvastatin Calcium 80 mg 10/15/23 21:00 10/16/23 20:46 Atorvastatin 80 Mg Tab PO 80 mg HS OH Administration Atropine Sulfate 0.5 mg 10/14/23 22:23 Atropine Sulfate 0.1 Mg/Ml 10ml Syringe IV ONCE PRN Symptomatic Bradycardia Chlorhexidine Gluconate 15 ml 10/14/23 21:00 10/17/23 08:50 Chlorhexidine Gluconate 15 Ml Cup MUCOUS MEM 15 ml BID OH Administration Dextrose/Water 25 ml 10/15/23 08:19 Dextrose 50% Syringe 50 Ml IVP PER PROTOCOL PRN Hypoglycemia Protocol Dextrose/Water 50 ml 10/15/23 08:19 Dextrose 50% Syringe 50 Ml IVP PER PROTOCOL PRN Hypoglycemia Protocol Divalproex Sodium 1,000 mg 10/15/23 21:00 10/16/23 20:46 Divalproex Sprinkle 125 Mg Cap.Sprink PO 1,000 mg HS OH Administration Ergocalciferol 1,250 mcg 10/03/23 09:00 10/17/23 09:33 Ergocalciferol 1,250 Mcg (50,000 Iu) Capsule PO Not Given Q14D OH Famotidine 20 mg 10/06/23 21:00 10/17/23 08:49 Famotidine 20 Mg Tab PO 20 mg BID OH Administration Heparin Sodium (Porcine) 0 unit 10/14/23 22:40 10/15/23 09:56 Heparin Sodium 1,000 Un/Ml (10ml Vl) IV 2,667.5 unit PER PROTOCOL PRN Administration Low PTT Protocol Hydromorphone HCl 0.5 mg 10/16/23 00:20 10/17/23 12:13 Hydromorphone 0.5 Mg/0.5 Ml Syringe IVP 0.5 mg Q4HR PRN Administration Pain Norepinephrine Bitartrate 8 mg 258 mls @ 8.504 mls/hr 10/14/23 18:15 10/17/23 15:11 / Sodium Chloride IV 0.04 mcg/kg/min .Q24H OH 11.339 mls/hr Titration Protocol 0.03 MCG/KG/MIN Heparin Sodium/Sodium Chloride 250 mls @ 10.006 mls/hr 10/14/23 22:00 10/17/23 17:24 25,000 unit/ Sodium Chloride IV 12 units/kg/hr .Q24H OH 17.58 mls/hr Titration Protocol 6.83 UNITS/KG/HR Sodium Bicarbonate 12.5 ml/ 512.5 mls @ 0 mls/hr 10/14/23 23:00 10/16/23 08:25 Dextrose/Water IV 3 mls/hr DIRECTED OH Administration Protocol Per Protocol Meropenem 1 gm/ Sodium 100 mls @ 33.3 mls/hr 10/16/23 16:00 10/17/23 16:56 Chloride IVPB 33.3 mls/hr Q8HR OH Administration Protocol Vancomycin HCl 1,750 mg/ 500 mls @ 167 mls/hr 10/16/23 11:00 10/17/23 08:49 Sodium Chloride IVPB 167 mls/hr Q24HR OH Administration Propofol 1,000 mg/ IV Solution 100 mls @ 26.37 mls/hr 10/16/23 15:43 10/17/23 18:45 IV 75 mcg/kg/min .Q3H48M OH 65.925 mls/hr Administration Protocol 30 MCG/KG/MIN Fentanyl Citrate 1,000 mcg/ 100 mls @ 5.865 mls/hr 10/17/23 14:15 10/17/23 17:30 Sodium Chloride IV 1 mcg/kg/hr .Q17H4M OH 11.73 mls/hr Titration Protocol 0.5 MCG/KG/HR Insulin Aspart 0 unit 10/15/23 12:00 10/17/23 16:57 Insulin Aspart (Novolog) 100 Unit/Ml Vial SQ 4 unit Q4HR OH Administration Protocol Levothyroxine Sodium 100 mcg 09/28/23 09:15 10/17/23 05:31 Levothyroxine 100 Mcg Tab PO 100 mcg DAILY@0630 OH Administration Midodrine 10 mg 10/17/23 12:30 10/17/23 16:57 Midodrine 5 Mg Tab PO 10 mg AC-TID OH Administration Miscellaneous Information 1 each 10/02/23 12:48 Potassium Replacement Protocol 1 Each Misc MISCELLANE DAILY PRN Per Protocol Protocol Miscellaneous Information 1 each 10/16/23 04:41 Magnesium Replacement Protocol 1 Each Misc MISCELLANE DAILY PRN Per Protocol Protocol Naloxone HCl 0.2 mg 09/28/23 01:38 Naloxone 0.4 Mg/Ml 1 Ml Vial IV Q2M PRN Opioid Reversal Nitroglycerin 0.4 mg 10/14/23 22:23 Nitroglycerin Sl Tabs 0.4 Mg Tab SUBLINGUAL Q5M PRN Chest Pain Nystatin 500,000 unit 10/10/23 13:00 10/17/23 18:45 Nystatin 100,000 Unit/Ml Susp 500,000 Unit/5 Ml Cup PO 500,000 unit QID OH Administration Protocol Nystatin 1 applic 10/10/23 21:00 10/17/23 08:51 Nystatin 100,000 Unit/Gm Powd 15 Gm TOPICAL 1 applic BID OH Administration Protocol Pantoprazole Sodium 40 mg 10/15/23 21:00 10/17/23 08:49 Pantoprazole 40 Mg/10 Ml Vial IV 40 mg BID OH Administration Petrolatum 1 applic 10/01/23 13:59 Zinc Oxide Paste (Z-Guard) 1 Applic TOPICAL Q2HR PRN Wound Healing Protocol Ticagrelor 90 mg 10/15/23 09:00 10/17/23 08:49 Ticagrelor 90 Mg Tab PO 90 mg BID OH Administration Protocol Zolpidem Tartrate 5 mg 10/14/23 22:23 Zolpidem 5 Mg Tab PO HS PRN Insomnia Objective - Vital Signs Vital signs: Vital Signs Temp 101 F H 10/17/23 08:00 Pulse 110 H 10/17/23 10:00 Resp 3 L 10/17/23 10:00 BP 104/58 10/16/23 23:30 Pulse Ox 97 10/17/23 10:00 FiO2 60 10/17/23 08:00 Intake & Output 10/16/23 10/17/23 10/17/23 18:59 06:59 18:59 Intake Total 0132.066 3985.844 1092.968 Output Total 815 1145 355 Balance 1091.945 776.844 737.968 Weight 117.3 kg Intake: IV 933 1175 924 A-line 72 72 24 Magnesium Sulfate-D5w Pmx 100 1 gm In Dextrose/Water 1 100ml.bag @ 100 mls/hr IVPB ONCE ONE Rx#: [id number] Meropenem 1 gm In Sodium 100 100 Chloride 0.9% 100 ml @ 33 .3 mls/hr IVPB Q8HR [facility] Rx#:[id number] Sodium Bicarb (1 Meq/ml) 36 3 12.5 ml In Dextrose 5% in Water 500 ml @ Per Protocol IV DIRECTED OH Rx#:[id number] Sodium Chloride 0.9% 1, 825 300 000 ml @ 75 mls/hr IV . [id number] OH Rx#:[id number] Sodium Chloride 0.9% 1, 825 75 000 ml In Empty Bag 1 bag @ 75 mls/hr IV .[id number] OH Rx#:[id number] Vancomycin 1,750 mg In 500 Sodium Chloride 0.9% 500 ml 500 ml @ 167 mls/hr IVPB Q24HR OH Rx#: [id number] Intake, IV Titration 973.945 436.844 168.968 Amount Meropenem 1 gm In Sodium 100 Chloride 0.9% 100 ml @ 33 .3 mls/hr IVPB Q8HR OH Rx#:[id number] Norepinephrine 8 mg In 73.945 4.394 1.418 Sodium Chloride 0.9% 250 ml @ 0.03 MCG/KG/MIN 8. 504 mls/hr IV .Q24H OH Rx#:[id number] Vancomycin 1,750 mg In 500 Sodium Chloride 0.9% 500 ml 500 ml @ 167 mls/hr IVPB Q24HR OH Rx#: [id number] propofoL 1,000 mg In 200 Empty Bag 1 bag @ 30 MCG/ KG/MIN 26.37 mls/hr IV . Q3H48M OH Rx#:[id number] propofoL 1,000 mg In 100 432.450 167.55 Empty Bag 1 bag @ 30 MCG/ KG/MIN 26.37 mls/hr IV . Q3H48M OH Rx#:[id number] Oral 0 Blood Product 310 Rc As-1 Unit 310 [id number] Output: Gastric Drainage 130 200 100 Urine 685 945 255 Other: Voiding Method Indwelling Catheter Indwelling Catheter Indwelling Catheter ABP, PAP, CO, CI - Last Documented Arterial Blood Pressure 96/55 - Exam GENERAL: The patient is sedated and intubated HEENT: Pupils are round and equally reacting to light. EOMI. No scleral icterus. No conjunctival pallor. Normocephalic, atraumatic. No pharyngeal erythema. No thyromegaly. CARDIOVASCULAR: S1 and S2 present. No murmurs, rubs, or gallops. PULMONARY: Chest is clear to auscultation, no wheezing , no crackles. ABDOMEN: Soft, nontender, nondistended, normoactive bowel sounds. No palpable organomegaly. MUSCULOSKELETAL: No joint swelling or deformity. EXTREMITIES: No cyanosis, clubbing, or pedal edema. NEUROLOGICAL: Gross neurological examination did not reveal any focal deficits. SKIN: No rashes. no petechiae. - Labs CBC & Chem 7: 10/17/23 04:56 10/17/23 04:56 Labs: Abnormal Lab Results - Last 24 Hours (Table) 10/16/23 10/16/23 10/16/23 Range/Units 12:15 12:15 14:30 WBC 33.6 H (3.8-10.6) k/uL RBC 2.45 L (4.30-5.90) m/uL Hgb 7.6 L (13.0-17.5) gm/dL Hct 22.7 L (39.0-53.0) % Plt Count (150-450) k/uL Neutrophils # (1.3-7.7) k/uL Monocytes # (0-1.0) k/uL Fibrinogen (200-500) mg/dL ABG pH (7.35-7.45) ABG HCO3 (21-25) mmol/L ABG Total CO2 (19-24) mmol/L ABG O2 Saturation (94-97) % Sodium (137-145) mmol/L Carbon Dioxide (22-30) mmol/L BUN (9-20) mg/dL Creatinine (0.66-1.25) mg/dL Glucose (74-99) mg/dL POC Glucose (mg/dL) 185 H (70-110) mg/dL Calcium (8.4-10.2) mg/dL Lactate Dehydrogenase 1939 H (120-246) U/L Crossmatch 10/16/23 10/16/23 10/16/23 Range/Units 16:54 17:40 19:53 WBC (3.8-10.6) k/uL RBC (4.30-5.90) m/uL Hgb (13.0-17.5) gm/dL Hct (39.0-53.0) % Plt Count (150-450) k/uL Neutrophils # (1.3-7.7) k/uL Monocytes # (0-1.0) k/uL Fibrinogen (200-500) mg/dL ABG pH (7.35-7.45) ABG HCO3 (21-25) mmol/L ABG Total CO2 (19-24) mmol/L ABG O2 Saturation (94-97) % Sodium (137-145) mmol/L Carbon Dioxide (22-30) mmol/L BUN (9-20) mg/dL Creatinine (0.66-1.25) mg/dL Glucose (74-99) mg/dL POC Glucose (mg/dL) 211 H 193 H (70-110) mg/dL Calcium (8.4-10.2) mg/dL Lactate Dehydrogenase (120-246) U/L Crossmatch See Detail 10/16/23 10/16/23 10/17/23 Range/Units 22:54 23:47 01:38 WBC 26.7 H (3.8-10.6) k/uL RBC 2.63 L (4.30-5.90) m/uL Hgb 8.2 L (13.0-17.5) gm/dL Hct 24.4 L (39.0-53.0) % Plt Count 124 L (150-450) k/uL Neutrophils # (1.3-7.7) k/uL Monocytes # (0-1.0) k/uL Fibrinogen (200-500) mg/dL ABG pH (7.35-7.45) ABG HCO3 (21-25) mmol/L ABG Total CO2 (19-24) mmol/L ABG O2 Saturation (94-97) % Sodium (137-145) mmol/L Carbon Dioxide (22-30) mmol/L BUN (9-20) mg/dL Creatinine (0.66-1.25) mg/dL Glucose (74-99) mg/dL POC Glucose (mg/dL) 165 H (70-110) mg/dL Calcium (8.4-10.2) mg/dL Lactate Dehydrogenase 1882 H (120-246) U/L Crossmatch 10/17/23 10/17/23 10/17/23 Range/Units 03:38 04:56 04:56 WBC 25.6 H (3.8-10.6) k/uL RBC 2.62 L (4.30-5.90) m/uL Hgb 8.2 L (13.0-17.5) gm/dL Hct 24.4 L (39.0-53.0) % Plt Count 122 L (150-450) k/uL Neutrophils # 20.8 H (1.3-7.7) k/uL Monocytes # 2.0 H (0-1.0) k/uL Fibrinogen (200-500) mg/dL ABG pH (7.35-7.45) ABG HCO3 (21-25) mmol/L ABG Total CO2 (19-24) mmol/L ABG O2 Saturation (94-97) % Sodium 132 L (137-145) mmol/L Carbon Dioxide 32 H (22-30) mmol/L BUN 53 H (9-20) mg/dL Creatinine 1.75 H (0.66-1.25) mg/dL Glucose 131 H (74-99) mg/dL POC Glucose (mg/dL) 148 H (70-110) mg/dL Calcium 6.9 L (8.4-10.2) mg/dL Lactate Dehydrogenase (120-246) U/L Crossmatch 10/17/23 10/17/23 10/17/23 Range/Units 05:50 06:59 06:59 WBC (3.8-10.6) k/uL RBC (4.30-5.90) m/uL Hgb (13.0-17.5) gm/dL Hct (39.0-53.0) % Plt Count (150-450) k/uL Neutrophils # (1.3-7.7) k/uL Monocytes # (0-1.0) k/uL Fibrinogen 521 H (200-500) mg/dL ABG pH 7.48 H (7.35-7.45) ABG HCO3 32 H (21-25) mmol/L ABG Total CO2 33 H (19-24) mmol/L ABG O2 Saturation 97.4 H (94-97) % Sodium (137-145) mmol/L Carbon Dioxide (22-30) mmol/L BUN (9-20) mg/dL Creatinine (0.66-1.25) mg/dL Glucose (74-99) mg/dL POC Glucose (mg/dL) (70-110) mg/dL Calcium (8.4-10.2) mg/dL Lactate Dehydrogenase 1998 H (120-246) U/L Crossmatch 10/17/23 Range/Units 08:44 WBC (3.8-10.6) k/uL RBC (4.30-5.90) m/uL Hgb (13.0-17.5) gm/dL Hct (39.0-53.0) % Plt Count (150-450) k/uL Neutrophils # (1.3-7.7) k/uL Monocytes # (0-1.0) k/uL Fibrinogen (200-500) mg/dL ABG pH (7.35-7.45) ABG HCO3 (21-25) mmol/L ABG Total CO2 (19-24) mmol/L ABG O2 Saturation (94-97) % Sodium (137-145) mmol/L Carbon Dioxide (22-30) mmol/L BUN (9-20) mg/dL Creatinine (0.66-1.25) mg/dL Glucose (74-99) mg/dL POC Glucose (mg/dL) 166 H (70-110) mg/dL Calcium (8.4-10.2) mg/dL Lactate Dehydrogenase (120-246) U/L Crossmatch Microbiology - Last 24 Hours (Table) 10/15/23 14:20 Gram Stain - Preliminary Sputum 10/15/23 13:18 Blood Culture - Preliminary Blood Assessment and Plan Assessment: Emergent cardiac cath and 5 stents placement Cardiogenic shock and possible septic shock secondary to above Acute hypoxic respiratory failure requiring intubation and mechanical ventilation Acute kidney injury Hyponatremia secondary to poor oral intake, COVID-19 Acute hypoxic respiratory failure secondary to COVID-19, now requiring oxygen via nasal cannula. Altered mental status, with toxic metabolic encephalopathy likely secondary to hypoxia as patient continues to remove oxygen mask from his face Generalized weakness Rhabdomyolysis. Improved Fall Urinary retention requiring indwelling Rosales catheter Hypothyroidism Hypertension Obesity with a BMI of 35.0 acute STEMI s/p Plan: Patient is continued on mechanical ventilation Continue with aspirin and Brilinta Patient is on heparin drip Cardiology consult following closely Pulmonary/critical care team following closely Patient s/p Impella with cardiology team Antibiotics were adjusted into meropenem and IV vancomycin by ID team Continue with insulin coverage Summer consult is on the case including ID team, pulmonary and nephrology Labs and medication were reviewed.. Continue same treatment. Continue with s ymptomatic treatment. Resume home medication. Monitor labs and vitals. DVT and GI prophylaxis. Further recommendations as per clinical course of the patient DVT prophylaxis: Subcutaneous Lovenox GI Prophylaxis: Pepcid PT/OT: heather prognosis is guarded
[2023-10-17 19:55] LABS: Glucose,Whole Blood 174 mg/dL (70-110)
[2023-10-17 23:47] LABS: Glucose,Whole Blood 180 mg/dL (70-110)
[2023-10-18 00:12] LABS: Partial Thromboplastin Time 46.7 sec (22.0-30.0)
[2023-10-18 04:19] LABS: Glucose,Whole Blood 156 mg/dL (70-110)
[2023-10-18 04:30] LABS: Basophils # (A) 0.2 k/uL (0-0.2); Basophils % (A) 1 %; Eosinophils # (A) 0.2 k/uL (0-0.7); Eosinophils % (A) 1 %; HCT 22.1 % (39.0-53.0); HGB 7.3 gm/dL (13.0-17.5); Hypochromasia Slight; Lymphocytes # (A) 2.9 k/uL (1.0-4.8); Lymphocytes % (A) 11 %; MCH 31.5 pg (25.0-35.0); MCV 95.5 fL (80.0-100.0); Mean Platelet Volume 10.7; Monocytes # (A) 1.5 k/uL (0-1.0); Monocytes % (A) 6 %; Neutrophils % (A) 80 %; Platelet Count 117 k/uL (150-450); RBC 2.31 m/uL (4.30-5.90); RDW 14.9 % (11.5-15.5); WBC 26.3 k/uL (3.8-10.6)
[2023-10-18] MEDS: DOBUTamine DRIP 500 MG in DEXTROSE/WATER 1 250ML.BAG IV SCH (04:30)
[2023-10-18 04:39] LABS: ALT 225 U/L (4-49); AST 257 U/L (17-59); African American GFR (CKD) 33 (>60 ml/min/1.73 sqM); Albumin 2.1 g/dL (3.5-5.0); Alkaline Phosphatase 94 U/L (38-126); Anion Gap -2 mmol/L; Blood Urea Nitrogen 57 mg/dL (9-20); Carbon Dioxide 33 mmol/L (22-30); Chloride 101 mmol/L (98-107); Glucose 139 mg/dL (74-99); Magnesium 2.2 mg/dL (1.6-2.3); Non-African American GFR(CKD) 28 (>60 ml/min/1.73 sqM); Potassium 3.9 mmol/L (3.5-5.1); Sodium 132 mmol/L (137-145); Total Bilirubin 1.1 mg/dL (0.2-1.3); Total Protein 4.9 g/dL (6.3-8.2)
[2023-10-18 06:04] LABS: ABG Base Excess 2.8 mmol/L; ABG HCO3 29 mmol/L (21-25); ABG PCO2 54 mmHg (35-45); ABG PH 7.33 (7.35-7.45); ABG PO2 90 mmHg (83-108); ABG TCO2 30 mmol/L (19-24)
[2023-10-18 06:40] LABS: Allen Test Performed? no
--- NOTE | 2023-10-18 08:29 | XR ---
EXAMINATION TYPE: XR chest 1V portable DATE OF EXAM: 10/18/2023 HISTORY: Shortness of breath. COMPARISON: 10/17/2023 TECHNIQUE: Single view of the chest is submitted. FINDINGS: Demonstrated are scattered senescent parenchymal change. Indwelling tubes and catheters are unchange d. Small area of focal infiltrate right midlung zone persists although appears to be slightly improved. The heart is stable. Hilar and mediastinal structures are within normal limits. Degenerative changes are seen of the dorsal spine. IMPRESSION: 1. Small area of focal infiltrate right midlung zone persists although appears to be slightly improv ed.
[2023-10-18 08:32] LABS: Glucose,Whole Blood 166 mg/dL (70-110)
[2023-10-18] MEDS: SODIUM CHLORIDE 0.9% 500 ML 500 ML IV ONE (10:00)
[2023-10-18 10:56] LABS: Hypochromasia Slight; MCHC 33.3 g/dL (31.0-37.0); MCV 96.1 fL (80.0-100.0); Mean Platelet Volume 11.1; Platelet Count 106 k/uL (150-450); RBC 1.98 m/uL (4.30-5.90); RDW 15.3 % (11.5-15.5); WBC 22.2 k/uL (3.8-10.6)
[2023-10-18 11:03] LABS: HGB 6.3 gm/dL (13.0-17.5)
[2023-10-18 11:46] LABS: Glucose,Whole Blood 142 mg/dL (70-110)
--- NOTE | 2023-10-18 11:58 | P.PN ---
Subjective Patient is seen for follow-up for hyponatremia. Patient remains on the vent. FiO2 at 50%. Blood pressure was low yesterday. Urine output has dropped this morning. Dobutamine drip is currently on hold. Patient remains on Impella support at 8 Status post fluid bolus this morning. Objective - Vital Signs Vital signs: Vital Signs Temp 102.5 F H 10/18/23 08:00 Pulse 98 10/18/23 11:28 Resp 26 H 10/18/23 11:10 BP 94/50 10/18/23 02:00 Pulse Ox 99 10/18/23 11:10 FiO2 50 10/18/23 11:40 Intake & Output 10/17/23 10/18/23 10/18/23 18:59 06:59 18:59 Intake Total 8962.727 8120.508 1655.829 Output Total 785 535 140 Balance 824.676 608.610 6200.829 Weight 119.5 kg 119.5 kg Intake: IV 791 147 3546 A-line 69 72 30 Meropenem 1 gm In Sodium 100 100 100 Chloride 0.9% 100 ml @ 33 .3 mls/hr IVPB Q8HR [place] Rx#:[id number] Sodium Chloride 0.9% 1, 300 000 ml @ 75 mls/hr IV . [id number] [place] Rx#:[id number] Sodium Chloride 0.9% 500 500 ml 500 ml @ 999 mls/hr IV .Q31M ONE Rx#:[id number] Vancomycin 1,750 mg In 500 500 Sodium Chloride 0.9% 500 ml 500 ml @ 167 mls/hr IVPB Q24HR [place] Rx#: [id number] Intake, IV Titration 640.676 924.508 465.829 Amount DOBUTamine DRIP 500 mg In 43.99 Dextrose/Water 1 250ml. bag @ 2.5 MCG/KG/MIN 8. 798 mls/hr IV .Q24H [place] Rx#:[id number] Heparin Sod,Pork in 0.45% 0 182.539 135.659 NaCl 25,000 unit In 0.45 % NaCl 1 250ml.bag @ 6.83 UNITS/KG/HR 10.006 mls/ hr IV .Q24H [place] Rx#: [id number] Norepinephrine 8 mg In 32.462 181.851 73.231 Sodium Chloride 0.9% 250 ml @ 0.03 MCG/KG/MIN 8. 504 mls/hr IV .Q24H [place] Rx#:[id number] fentaNYL (PF). 1,000 mcg 40.664 160.118 83.283 In Sodium Chloride 0.9% 80 ml @ 0.5 MCG/KG/HR 5. 865 mls/hr IV .Q17H4M [place] Rx#:[id number] propofoL 1,000 mg In 567.55 400 129.666 Empty Bag 1 bag @ 30 MCG/ KG/MIN 26.37 mls/hr IV . Q3H48M [place] Rx#:[id number] Oral 0 0 Other 30 60 Output: Gastric Drainage 100 Urine 685 535 140 Other: Voiding Method Indwelling Catheter Indwelling Catheter Indwelling Catheter # Bowel Movements 0 ABP, PAP, CO, CI - Last Documented Arterial Blood Pressure 107/51 - Exam Patient is currently sedated and on the vent Examination of the heart S1 and S2 Examination of the lungs shows bilateral breath sounds are heard Abdomen is soft nontender Examination of lower extremity shows edema 2+ bilaterally upper and lower extremities [employer] exam cannot be performed - Labs CBC & Chem 7: 10/18/23 10:37 10/18/23 04:15 Labs: Abnormal Lab Results - Last 24 Hours (Table) 10/16/23 10/17/23 10/17/23 Range/Units 17:40 11:53 15:25 WBC (3.8-10.6) k/uL RBC (4.30-5.90) m/uL Hgb (13.0-17.5) gm/dL Hct (39.0-53.0) % Plt Count (150-450) k/uL Neutrophils # (1.3-7.7) k/uL Monocytes # (0-1.0) k/uL APTT (22.0-30.0) sec Fibrinogen (200-500) mg/dL ABG pH (7.35-7.45) ABG pCO2 (35-45) mmHg ABG HCO3 (21-25) mmol/L ABG Total CO2 (19-24) mmol/L Sodium (137-145) mmol/L Carbon Dioxide (22-30) mmol/L BUN (9-20) mg/dL Creatinine (0.66-1.25) mg/dL Glucose (74-99) mg/dL POC Glucose (mg/dL) 157 H (70-110) mg/dL Calcium (8.4-10.2) mg/dL AST (17-59) U/L ALT (4-49) U/L Lactate Dehydrogenase 1799 H (120-246) U/L Total Protein (6.3-8.2) g/dL Albumin (3.5-5.0) g/dL Crossmatch See Detail 10/17/23 10/17/23 10/17/23 Range/Units 16:51 19:53 23:00 WBC (3.8-10.6) k/uL RBC (4.30-5.90) m/uL Hgb (13.0-17.5) gm/dL Hct (39.0-53.0) % Plt Count (150-450) k/uL Neutrophils # (1.3-7.7) k/uL Monocytes # (0-1.0) k/uL APTT 46.7 H (22.0-30.0) sec Fibrinogen 550 H (200-500) mg/dL ABG pH (7.35-7.45) ABG pCO2 (35-45) mmHg ABG HCO3 (21-25) mmol/L ABG Total CO2 (19-24) mmol/L Sodium (137-145) mmol/L Carbon Dioxide (22-30) mmol/L BUN (9-20) mg/dL Creatinine (0.66-1.25) mg/dL Glucose (74-99) mg/dL POC Glucose (mg/dL) 180 H 174 H (70-110) mg/dL Calcium (8.4-10.2) mg/dL AST (17-59) U/L ALT (4-49) U/L Lactate Dehydrogenase (120-246) U/L Total Protein (6.3-8.2) g/dL Albumin (3.5-5.0) g/dL Crossmatch 10/17/23 10/17/23 10/18/23 Range/Units 23:00 23:44 04:15 WBC (3.8-10.6) k/uL RBC (4.30-5.90) m/uL Hgb (13.0-17.5) gm/dL Hct (39.0-53.0) % Plt Count (150-450) k/uL Neutrophils # (1.3-7.7) k/uL Monocytes # (0-1.0) k/uL APTT (22.0-30.0) sec Fibrinogen (200-500) mg/dL ABG pH (7.35-7.45) ABG pCO2 (35-45) mmHg ABG HCO3 (21-25) mmol/L ABG Total CO2 (19-24) mmol/L Sodium 132 L (137-145) mmol/L Carbon Dioxide 33 H (22-30) mmol/L BUN 57 H (9-20) mg/dL Creatinine 2.18 H (0.66-1.25) mg/dL Glucose 139 H (74-99) mg/dL POC Glucose (mg/dL) 180 H (70-110) mg/dL Calcium 7.0 L (8.4-10.2) mg/dL AST 257 H (17-59) U/L ALT 225 H (4-49) U/L Lactate Dehydrogenase 1401 H (120-246) U/L Total Protein 4.9 L (6.3-8.2) g/dL Albumin 2.1 L (3.5-5.0) g/dL Crossmatch 10/18/23 10/18/23 10/18/23 Range/Units 04:15 04:17 06:03 WBC 26.3 H (3.8-10.6) k/uL RBC 2.31 L (4.30-5.90) m/uL Hgb 7.3 L (13.0-17.5) gm/dL Hct 22.1 L (39.0-53.0) % Plt Count 117 L (150-450) k/uL Neutrophils # 21.0 H (1.3-7.7) k/uL Monocytes # 1.5 H (0-1.0) k/uL APTT (22.0-30.0) sec Fibrinogen (200-500) mg/dL ABG pH 7.33 L (7.35-7.45) ABG pCO2 54 H (35-45) mmHg ABG HCO3 29 H (21-25) mmol/L ABG Total CO2 30 H (19-24) mmol/L Sodium (137-145) mmol/L Carbon Dioxide (22-30) mmol/L BUN (9-20) mg/dL Creatinine (0.66-1.25) mg/dL Glucose (74-99) mg/dL POC Glucose (mg/dL) 156 H (70-110) mg/dL Calcium (8.4-10.2) mg/dL AST (17-59) U/L ALT (4-49) U/L Lactate Dehydrogenase (120-246) U/L Total Protein (6.3-8.2) g/dL Albumin (3.5-5.0) g/dL Crossmatch 10/18/23 10/18/23 10/18/23 Range/Units 06:54 06:54 08:30 WBC (3.8-10.6) k/uL RBC (4.30-5.90) m/uL Hgb (13.0-17.5) gm/dL Hct (39.0-53.0) % Plt Count (150-450) k/uL Neutrophils # (1.3-7.7) k/uL Monocytes # (0-1.0) k/uL APTT (22.0-30.0) sec Fibrinogen 535 H (200-500) mg/dL ABG pH (7.35-7.45) ABG pCO2 (35-45) mmHg ABG HCO3 (21-25) mmol/L ABG Total CO2 (19-24) mmol/L Sodium (137-145) mmol/L Carbon Dioxide (22-30) mmol/L BUN (9-20) mg/dL Creatinine (0.66-1.25) mg/dL Glucose (74-99) mg/dL POC Glucose (mg/dL) 166 H (70-110) mg/dL Calcium (8.4-10.2) mg/dL AST (17-59) U/L ALT (4-49) U/L Lactate Dehydrogenase 1388 H (120-246) U/L Total Protein (6.3-8.2) g/dL Albumin (3.5-5.0) g/dL Crossmatch 10/18/23 Range/Units 10:37 WBC 22.2 H (3.8-10.6) k/uL RBC 1.98 L (4.30-5.90) m/uL Hgb 6.3 L* (13.0-17.5) gm/dL Hct 19.0 L* (39.0-53.0) % Plt Count 106 L (150-450) k/uL Neutrophils # (1.3-7.7) k/uL Monocytes # (0-1.0) k/uL APTT (22.0-30.0) sec Fibrinogen (200-500) mg/dL ABG pH (7.35-7.45) ABG pCO2 (35-45) mmHg ABG HCO3 (21-25) mmol/L ABG Total CO2 (19-24) mmol/L Sodium (137-145) mmol/L Carbon Dioxide (22-30) mmol/L BUN (9-20) mg/dL Creatinine (0.66-1.25) mg/dL Glucose (74-99) mg/dL POC Glucose (mg/dL) (70-110) mg/dL Calcium (8.4-10.2) mg/dL AST (17-59) U/L ALT (4-49) U/L Lactate Dehydrogenase (120-246) U/L Total Protein (6.3-8.2) g/dL Albumin (3.5-5.0) g/dL Crossmatch Microbiology - Last 24 Hours (Table) 10/15/23 13:18 Blood Culture - Preliminary Blood 10/15/23 14:20 Gram Stain - Preliminary Sputum Assessment and Plan Assessment: 1. Hyponatremia. Associated with urine retention and hypervolemia. Status post diuresis. Sodium is stable at 132 2. Acute kidney injury, initially secondary to urine retention however currently in ATN. Nonoliguric secondary to hypotension and cardiac arrest. No proteinuria on UA. No hydronephrosis noted on kidney ultrasound. 3. Urinary retention status post Rosales catheter placement. On Flomax. 4. Benign hypertension. Controlled. 5. Hypokalemia from poor intake and postobstructive diuresis. Magnesium normal. 6. Rhabdomyolysis secondary to fall. 7. Status postcardiac arrest x [address] elevation MD status post 5 coronary stents placement on 10/14/2023. 9. GI bleed 10. Cardiogenic shock Plan: Continue off of IV fluids. Status post 500 mL fluid bolus this morning. Overall prognosis is guarded. Patient will not tolerate renal replacement therapy if renal function continues to worsen. Antiarrhythmic medications as per cardiology Repeat labs in a.m.
--- NOTE | 2023-10-18 12:26 | P.PN ---
Subjective Progress Note Date: 10/18/23 Principal diagnosis: Cardiac arrest and cardiogenic shock This is a 77-year-old male patient with a history of hypertension, seizure disorder, thyroid disorder, former smoker. On September 27, 2023 the patient had gotten up to go the bathroom and slumped onto the ground. He had been reportedly laying on the ground for several hours by family were attempting to get in helping him get up but he was unable to support himself. He also had trouble with urinary incontinence. EMS was called and he was brought here for evaluation. CT scan of the brain revealed no acute intracranial hemorrhage, midline shift or mass effect. EKG revealed sinus rhythm with no significant ST or T wave abnormalities. White count 14.9. Hemoglobin 12.9. Platelets 146. Sodium 126. Potassium 3.9. Bicarb 26. BUN 15. Creatinine 0.68. Glucose 152. AST 148. ALT 43. Creatinine kinase 2283. He did test positive for COVID-19 infection. His initial sodium level was 118. BUN of 24 and a creatinine of 1.26. He had been seen by nephrology, urology and infectious disease. A chest x-ray was done today September 30, 2023 that revealed an elevated right hemidiaphragm and we are consulted for the same. He was sent for a sniff test however the patient was unable to perform the appropriate maneuvers due to overall condition. He is seen on consultation on the selective care unit. He is currently resting in bed. Difficult to arouse but arousable. He is on a nonrebreather mask with O2 saturation of 90%. Currently afebrile. Hemodynamically stable. He has been initiated on Decadron. Antibiotics in the form of cefepime. Saline at 50 MLS per hour. Patient was evaluated today on 10/01/2023, more awake today, more responsive, seems to be more alert, and remains on a nonrebreather mask which I have recommended to transition to high flow nasal cannula. Patient did transition to 10 L high flow nasal cannula and O2 saturation was ranging between 92 up to 96% definitely better today compared to the last couple of days. Still planning to repeat his sniff test to evaluate for right hemidiaphragm paralysis. Procalcitonin level came back elevated at 0.43, patient remains on antibiotics for presumptive right lower lobe pneumonia. WBC count today 13.9 hemoglobin 13.0.Basic metabolic profile is relatively normal. Reevaluated today on 10/02/2023, patient is on 10 L high flow nasal cannula, doing better, breathing easier, O2 saturation is in the low 90s, patient continues to have diminished breath sounds at the right base, and I believe the patient has right hemidiaphragm paralysis with right lower lobe atelectasis, possible underlying pneumonia, but I feel clinically this is not the picture. At any rate the patient is supposed to have a sniff test tomorrow, may even have to consider a CT of the chest to evaluate the right lower lobe further. Based on the sniff test, further recommendations will follow. In the meantime patient is gradually improving, feeling better, breathing easier and definitely his neurological status is significantly improved now compared to how he was few days ago WBC count is 10.2 hemoglobin is 12.3, sodium is up to 130, potassium 3.1 renal profile is normal procalcitonin level on this patient was 0.43, hence he was empirically placed on antibiotics for presumptive right lower lobe pneumonia 10/16/2023, the patient remains critically ill intubated on the mechanical ventilator in the intensive care unit. He is postcardiac arrest and post emergent cardiac catheterization and a total of 5 stents were inserted and the patient was also given an Impella for hemodynamic support which is currently at p 7 augmentation with a flow of 3.2 L/min. The patient remains essentially unresponsive. He was given a brief sedation holiday yesterday to assess mentation. Immediately, the patient became restless, asynchronous with mechanical ventilator, and tachycardic and based on his underlying instability, propofol was restarted and which is currently running at 50 mcg/kg/min. He remains on assist-control mode of mechanical ventilation at the rate of 26, tidal volume of 450, FiO2 is at 60% with a PEEP of 15. Chest x-ray shows no major interval change. Blood gas from this morning shows a pH of 7.46 with a pCO2 of 44 and pO2 of 129. Hemodynamically, he remains unstable and hypotensive. Significant support still being provided to the Impella. Unable to tolerate lower levels of augmentation due to significant hypotension. While on P7, the patient is maintaining a mean arterial pressure of 70 and the patient is also on norepinephrine running at 0.02 mcg/kg/min. Cardiac rhythm is sinus tachycardia. No further episodes of ventricular arrhythmias. The patient was taken off the amiodarone and is also off the lidocaine drip. Urine output has dropped considerably and the patient also has developed an acute kidney injury. Creatinine is up to 1.9 with a BUN of 43. He is spiking temperature and his Tmax is 103.1. He remains on the same antibiotic coverage and he is currently on IV cefepime. Another complication is development of an upper GI bleed. Since yesterday afternoon, the patient had dark bloody output from his NG tube and a total amount has been in the order of 400 cc since yesterday. Based on his underlying GI bleed, IV heparin was discontinued. He remains on aspirin and Brilinta. He is off the Aggrastat for now. The hemoglobin has dropped down to 8.7. He remains in normal sinus rate of 75 cc an hour. Norepinephrine is running at 0.02 mcg/kg/min. IV heparin is discontinued. Rest of the blood work shows a WBC count of 37.6, hemoglobin 7.7 and a platelet count of 198. The serum bicarb is at 23 with a sodium level of 129. Blood sugar is at 188. Troponin peaked at 282. CPK was at 01/19/2023. He remains NPO. An echocardiogram was done yesterday and the patient was found to have significant impairment of the LV function with an ejection fraction of around 20%. Contacted the family, unable to get a hold of any family members. The family was supposed to arrive into the hospital to my understanding. Nevertheless, nobody showed up and we have placed multiple phone calls without getting any answers back. He is postcardiac arrest. Please refer to details of the cardiac intervention that was done as stated earlier. Patient was reevaluated today on 10/17/2023, remains in the ICU, intubated and mechanically ventilated. Patient is on assist-control rate of 26 tidal volume 450 FiO2 60% PEEP of 15 EGD showed a pO2 of 92 pCO2 43 pH of 7.48. No changes were made in his present ventilator settings. Patient continues to have Impella in place, it is at P7 augmentation, nonetheless, patient remains marginal at best. Ejection fraction is 20%. Patient is on propofol at 50 mcg/kg/min, he is also on IV fluid at 75 cc/h. Remains on Merrem and vancomycin, patient does not seem to be fully sedated, seems to be asynchronous with the ventilator today, hence I recommended increasing propofol up to 75 mcg/kg/min, and do Dilaudid as needed WBC count is 25.6 hemoglobin is 8.2. Fibrinogen is 521Basic metabolic profile is normal BUN is 53 creatinine 1.57. Chest x-ray showed patchy perihilar infiltrates, not much different from the chest x-ray prior. Looking back at the note, patient had his cardiac arrest on 10/14/2023, he was taken to the cardiac cath, underwent PTCA and stenting done. And he required intermittently pressor support/norepinephrine. Empirically the patient is on Merrem and vancomycin, patient has allergy to penicillin. Patient is being followed by infectious disease patient is off heparin. He is not requiring norepinephrine today, blood pressure is rather marginal. Output today is 3.3. CODE STATUS was changed to DNR CODE STATUS. The overall prognostic picture seems to be extremely poor Reevaluate 10/18/2023, patient remains in the ICU, intubated and mechanically ventilated. Patient is on assist-control rate of 26 tidal volume 450 which I increased up to 500, FiO2 60% PEEP of 15 ABG showed a pO2 of 90 pCO2 54 pH of 7.33 plan is to cut down the FiO2 to 50% and eventually address the PEEP. Patient continues to have the Impella in place, and it is at P7 augmentation. Patient continues to do poorly, he is requiring significant amount of drips including norepinephrine at 0.08 mcg/kg/min, Dobutrex at 2.5 mcg/kg/min, he is also on propofol 70 mcg/kg/min Fentanyl at 1 mcg/kg/h. Patient is spiking fever with Tmax of 102.5, continues to have leukocytosis with WBC count of 26.3. He has very poor and marginal urine output, patient remains on Flagyl vancomycin and Merrem. Yesterday I had a long discussion and updated family on his condition, and still not considering comfort care measures. Although the prognosis is extremely poor, and this was discussed with cardiology today. Patient dropped his hemoglobin today down to 6.3, patient will require blood transfusion, WBC count is 22.2. Platelets are 106 renal functioning is worsening BUN is 57 creatinine now is up to 2.18, and this is most likely acute tubular necrosis related to hypotension and cardiorenal in nature. Chest x-ray noted to have small area of focal infiltrate in the right midlung zone, endotracheal tube was noted to be high in the trachea and this was advanced down by 2 cm Objective - Vital Signs Vital signs: Vital Signs Temp 101.9 F H 10/18/23 12:00 Pulse 96 10/18/23 12:10 Resp 26 H 10/18/23 12:10 BP 94/50 10/18/23 02:00 Pulse Ox 98 10/18/23 12:10 FiO2 50 10/18/23 11:40 Intake & Output 10/17/23 10/18/23 10/18/23 18:59 06:59 18:59 Intake Total 4546.944 2518.508 1671.829 Output Total 785 535 170 Balance 824.676 757.754 4740.829 Weight 119.5 kg 119.5 kg Intake: IV 504 937 5468 A-line 69 72 36 Invasive Line 8 10 Meropenem 1 gm In Sodium 100 100 100 Chloride 0.9% 100 ml @ 33 .3 mls/hr IVPB Q8HR [place] Rx#:[id number] Sodium Chloride 0.9% 1, 300 000 ml @ 75 mls/hr IV . [id number] [place] Rx#:[id number] Sodium Chloride 0.9% 500 500 ml 500 ml @ 999 mls/hr IV .Q31M [facility] Rx#:[id number] Vancomycin 1,750 mg In 500 500 Sodium Chloride 0.9% 500 ml 500 ml @ 167 mls/hr IVPB Q24HR [facility] Rx#: [id number] Intake, IV Titration 640.676 924.508 465.829 Amount DOBUTamine DRIP 500 mg In 43.99 Dextrose/Water 1 250ml. bag @ 2.5 MCG/KG/MIN 8. 798 mls/hr IV .Q24H [facility] Rx#:[id number] Heparin Sod,Pork in 0.45% 0 182.539 135.659 NaCl 25,000 unit In 0.45 % NaCl 1 250ml.bag @ 6.83 UNITS/KG/HR 10.006 mls/ hr IV .Q24H [facility] Rx#: [id number] Norepinephrine 8 mg In 32.462 181.851 73.231 Sodium Chloride 0.9% 250 ml @ 0.03 MCG/KG/MIN 8. 504 mls/hr IV .Q24H [facility] Rx#:[id number] fentaNYL (PF). 1,000 mcg 40.664 160.118 83.283 In Sodium Chloride 0.9% 80 ml @ 0.5 MCG/KG/HR 5. 865 mls/hr IV .Q17H4M [place] Rx#:[id number] propofoL 1,000 mg In 567.55 400 129.666 Empty Bag 1 bag @ 30 MCG/ KG/MIN 26.37 mls/hr IV . Q3H48M [facility] Rx#:[id number] Oral 0 0 Other 30 60 Output: Gastric Drainage 100 Urine 685 535 170 Other: Voiding Method Indwelling Catheter Indwelling Catheter Indwelling Catheter # Bowel Movements 0 ABP, PAP, CO, CI - Last Documented Arterial Blood Pressure 107/53 - Exam General: Reveals 77-year-old white male obese, intubated mechanically ventilated, sedated. Not in distress on propofol, he is also on fentanyl Head: Atraumatic normocephalic. Skin: No rashes. Eye: Pupils are equal, round and reactive to light,; there is normal conjunctiva bilaterally. Ears, nose, mouth and throat: There are moist mucous membranes and no oral lesions. Tracheal tube is intact, orogastric tube is intact. Neck: The neck is supple, there is no tenderness or JVD. Cardiovascular: Send S1-S2, no S3 gallop, 2/6 systolic murmur throughout the precordium Respiratory: Distant breath sound bilaterally no crackles rhonchi or wheezes Gastrointestinal: Obese, soft, nontender, no megaly, no rebound, no guarding. Musculoskeletal: No deformities noted, extremities showed no clubbing, 2+ bipedal edema, no cyanosis Neurological: Cannot assess, fully sedated Psychiatric: Not assess - Labs CBC & Chem 7: 10/18/23 10:37 10/18/23 04:15 Labs: Abnormal Lab Results - Last 24 Hours (Table) 10/16/23 10/17/23 10/17/23 Range/Units 17:40 15:25 16:51 WBC (3.8-10.6) k/uL RBC (4.30-5.90) m/uL Hgb (13.0-17.5) gm/dL Hct (39.0-53.0) % Plt Count (150-450) k/uL Neutrophils # (1.3-7.7) k/uL Monocytes # (0-1.0) k/uL APTT (22.0-30.0) sec Fibrinogen (200-500) mg/dL ABG pH (7.35-7.45) ABG pCO2 (35-45) mmHg ABG HCO3 (21-25) mmol/L ABG Total CO2 (19-24) mmol/L Sodium (137-145) mmol/L Carbon Dioxide (22-30) mmol/L BUN (9-20) mg/dL Creatinine (0.66-1.25) mg/dL Glucose (74-99) mg/dL POC Glucose (mg/dL) 180 H (70-110) mg/dL Calcium (8.4-10.2) mg/dL AST (17-59) U/L ALT (4-49) U/L Lactate Dehydrogenase 1799 H (120-246) U/L Total Protein (6.3-8.2) g/dL Albumin (3.5-5.0) g/dL Crossmatch See Detail 10/17/23 10/17/23 10/17/23 Range/Units 19:53 23:00 23:00 WBC (3.8-10.6) k/uL RBC (4.30-5.90) m/uL Hgb (13.0-17.5) gm/dL Hct (39.0-53.0) % Plt Count (150-450) k/uL Neutrophils # (1.3-7.7) k/uL Monocytes # (0-1.0) k/uL APTT 46.7 H (22.0-30.0) sec Fibrinogen 550 H (200-500) mg/dL ABG pH (7.35-7.45) ABG pCO2 (35-45) mmHg ABG HCO3 (21-25) mmol/L ABG Total CO2 (19-24) mmol/L Sodium (137-145) mmol/L Carbon Dioxide (22-30) mmol/L BUN (9-20) mg/dL Creatinine (0.66-1.25) mg/dL Glucose (74-99) mg/dL POC Glucose (mg/dL) 174 H (70-110) mg/dL Calcium (8.4-10.2) mg/dL AST (17-59) U/L ALT (4-49) U/L Lactate Dehydrogenase 1401 H (120-246) U/L Total Protein (6.3-8.2) g/dL Albumin (3.5-5.0) g/dL Crossmatch 10/17/23 10/18/23 10/18/23 Range/Units 23:44 04:15 04:15 WBC 26.3 H (3.8-10.6) k/uL RBC 2.31 L (4.30-5.90) m/uL Hgb 7.3 L (13.0-17.5) gm/dL Hct 22.1 L (39.0-53.0) % Plt Count 117 L (150-450) k/uL Neutrophils # 21.0 H (1.3-7.7) k/uL Monocytes # 1.5 H (0-1.0) k/uL APTT (22.0-30.0) sec Fibrinogen (200-500) mg/dL ABG pH (7.35-7.45) ABG pCO2 (35-45) mmHg ABG HCO3 (21-25) mmol/L ABG Total CO2 (19-24) mmol/L Sodium 132 L (137-145) mmol/L Carbon Dioxide 33 H (22-30) mmol/L BUN 57 H (9-20) mg/dL Creatinine 2.18 H (0.66-1.25) mg/dL Glucose 139 H (74-99) mg/dL POC Glucose (mg/dL) 180 H (70-110) mg/dL Calcium 7.0 L (8.4-10.2) mg/dL AST 257 H (17-59) U/L ALT 225 H (4-49) U/L Lactate Dehydrogenase (120-246) U/L Total Protein 4.9 L (6.3-8.2) g/dL Albumin 2.1 L (3.5-5.0) g/dL Crossmatch 10/18/23 10/18/23 10/18/23 Range/Units 04:17 06:03 06:54 WBC (3.8-10.6) k/uL RBC (4.30-5.90) m/uL Hgb (13.0-17.5) gm/dL Hct (39.0-53.0) % Plt Count (150-450) k/uL Neutrophils # (1.3-7.7) k/uL Monocytes # (0-1.0) k/uL APTT (22.0-30.0) sec Fibrinogen 535 H (200-500) mg/dL ABG pH 7.33 L (7.35-7.45) ABG pCO2 54 H (35-45) mmHg ABG HCO3 29 H (21-25) mmol/L ABG Total CO2 30 H (19-24) mmol/L Sodium (137-145) mmol/L Carbon Dioxide (22-30) mmol/L BUN (9-20) mg/dL Creatinine (0.66-1.25) mg/dL Glucose (74-99) mg/dL POC Glucose (mg/dL) 156 H (70-110) mg/dL Calcium (8.4-10.2) mg/dL AST (17-59) U/L ALT (4-49) U/L Lactate Dehydrogenase (120-246) U/L Total Protein (6.3-8.2) g/dL Albumin (3.5-5.0) g/dL Crossmatch 10/18/23 10/18/23 10/18/23 Range/Units 06:54 08:30 10:37 WBC 22.2 H (3.8-10.6) k/uL RBC 1.98 L (4.30-5.90) m/uL Hgb 6.3 L* (13.0-17.5) gm/dL Hct 19.0 L* (39.0-53.0) % Plt Count 106 L (150-450) k/uL Neutrophils # (1.3-7.7) k/uL Monocytes # (0-1.0) k/uL APTT (22.0-30.0) sec Fibrinogen (200-500) mg/dL ABG pH (7.35-7.45) ABG pCO2 (35-45) mmHg ABG HCO3 (21-25) mmol/L ABG Total CO2 (19-24) mmol/L Sodium (137-145) mmol/L Carbon Dioxide (22-30) mmol/L BUN (9-20) mg/dL Creatinine (0.66-1.25) mg/dL Glucose (74-99) mg/dL POC Glucose (mg/dL) 166 H (70-110) mg/dL Calcium (8.4-10.2) mg/dL AST (17-59) U/L ALT (4-49) U/L Lactate Dehydrogenase 1388 H (120-246) U/L Total Protein (6.3-8.2) g/dL Albumin (3.5-5.0) g/dL Crossmatch 10/18/23 Range/Units 11:45 WBC (3.8-10.6) k/uL RBC (4.30-5.90) m/uL Hgb (13.0-17.5) gm/dL Hct (39.0-53.0) % Plt Count (150-450) k/uL Neutrophils # (1.3-7.7) k/uL Monocytes # (0-1.0) k/uL APTT (22.0-30.0) sec Fibrinogen (200-500) mg/dL ABG pH (7.35-7.45) ABG pCO2 (35-45) mmHg ABG HCO3 (21-25) mmol/L ABG Total CO2 (19-24) mmol/L Sodium (137-145) mmol/L Carbon Dioxide (22-30) mmol/L BUN (9-20) mg/dL Creatinine (0.66-1.25) mg/dL Glucose (74-99) mg/dL POC Glucose (mg/dL) 142 H (70-110) mg/dL Calcium (8.4-10.2) mg/dL AST (17-59) U/L ALT (4-49) U/L Lactate Dehydrogenase (120-246) U/L Total Protein (6.3-8.2) g/dL Albumin (3.5-5.0) g/dL Crossmatch Microbiology - Last 24 Hours (Table) 10/15/23 13:18 Blood Culture - Preliminary Blood 10/15/23 14:20 Gram Stain - Preliminary Sputum Assessment and Plan Assessment: Impression: Cardiac arrest with ventricular tachycardia and ventricular fibrillation, status post cardiac catheterization for acute lateral ST segment elevation myocardial infarction and the patient underwent emergent cardiac catheterization. The patient underwent a complicated coronary intervention requiring Impella for hemodynamic support, stenting of the left main, circumflex, proximal and mid RCA. A total of 5 stents were inserted. Currently, receiving Impella for hemodynamic support and norepinephrine, dobutamine, and the patient continues to have an Impella device in place which may have to be discontinued today Acute hypoxic respiratory failure secondary to cardiac arrest Ventricular tachycardia/VF, postacute NH Upper GI bleeding related to various antiplatelet agents and anticoagulation patient is now off heparin he is on aspirin and Plavix Acute blood loss anemia requiring transfusion Acute kidney injury, could be cardiorenal in nature. There are cardiomyopathy and LV dysfunction. Acute febrile illness, exact etiology is not clear patient is empirically on antibiotics chest x-ray is showing a limited infiltrate in the right midlung. Acute hypoxic metabolic encephalopathy History of COVID-19 pneumonia, recovering Right hemidiaphragm elevation possible paralysis History of seizure disorder History of hypothyroidism History of hypertension Ex-smoker Severe LV dysfunction with ejection fraction of 20% Recommendation: Continue ventilatory support, not ready for any form of weaning at this point. Continue hemodynamic support continue dobutamine and continue norepinephrine and titrate accordingly in the meantime continue Impella device for now. Cardiology to decide on discontinuation of Impella hopefully today. Continue norepinephrine and dobutamine Continue nutritional support/enteral feeding Continue aspirin and Brilinta Continue empiric antibiotics Continue to monitor and address renal profile on a daily basis, expecting that the renal profile will get worse. As the urine output is marginal and the blood pressure is marginal Patient is not quite ready for any weaning today, Considering his overall picture, prognosis is extremely poor, discussed and updated family on his condition yesterday Patient is critically ill, he has multiple comorbidities, prognosis is extremely poor. Will continue to follow. Critical care time is over 30 minutes Time with Patient: Greater than 30
--- NOTE | 2023-10-18 12:34 | P.PN ---
Subjective Progress Note Date: 10/17/23 Principal diagnosis: Reason for follow-up is COVID-19 and pneumonia Patient is a 77-year-old male with a past medical history significant for hypertension seizure disorder hypothyroidism patient has been brought into the hospital for evaluation of generalized weakness patient was noticed to be on the bathroom floor after apparently patient fell down, patient did tested positive for COVID-19, initial chest x-ray reported negative.Patient did have significant change in his clinical condition and did have a cardiac arrest on 10/14/2023 the patient was taken to the [facility] and did have PTCA and stenting x 5 subsequently patient has been admitted to ICU. On today's visit that is 10/17/2023, Patient did spike a fever of 101 F this morning and a low-grade fever 100.1 at noon, the patient remains to be on the vent FiO2 currently at 60%, the patient remains to be pressor dependent, no significant purulence patient clinically or at the changes reported Patient white count is down to 25.6, creatinine is 1.75 Objective - Vital Signs Vital signs: Vital Signs Temp 101 F H 10/17/23 08:00 Pulse 106 H 10/17/23 11:31 Resp 29 H 10/17/23 11:00 BP 104/58 10/16/23 23:30 Pulse Ox 98 10/17/23 11:00 FiO2 60 10/17/23 11:13 Intake & Output 10/16/23 10/17/23 10/17/23 18:59 06:59 18:59 Intake Total 6172.352 8973.844 1095.968 Output Total 815 1145 405 Balance 1091.945 776.844 690.968 Weight 117.3 kg Intake: IV 933 1175 927 A-line 72 72 27 Magnesium Sulfate-D5w Pmx 100 1 gm In Dextrose/Water 1 100ml.bag @ 100 mls/hr IVPB ONCE ONE Rx#: [id number] Meropenem 1 gm In Sodium 100 100 Chloride 0.9% 100 ml @ 33 .3 mls/hr IVPB Q8HR [facility] Rx#:[id number] Sodium Bicarb (1 Meq/ml) 36 3 12.5 ml In Dextrose 5% in Water 500 ml @ Per Protocol IV DIRECTED [facility] Rx#:[id number] Sodium Chloride 0.9% 1, 825 300 000 ml @ 75 mls/hr IV . [id number] [place] Rx#:[id number] Sodium Chloride 0.9% 1, 825 75 000 ml In Empty Bag 1 bag @ 75 mls/hr IV .[id number] [place] Rx#:[id number] Vancomycin 1,750 mg In 500 Sodium Chloride 0.9% 500 ml 500 ml @ 167 mls/hr IVPB Q24HR [place] Rx#: [id number] Intake, IV Titration 973.945 436.844 168.968 Amount Meropenem 1 gm In Sodium 100 Chloride 0.9% 100 ml @ 33 .3 mls/hr IVPB Q8HR [place] Rx#:[id number] Norepinephrine 8 mg In 73.945 4.394 1.418 Sodium Chloride 0.9% 250 ml @ 0.03 MCG/KG/MIN 8. 504 mls/hr IV .Q24H [place] Rx#:[id number] Vancomycin 1,750 mg In 500 Sodium Chloride 0.9% 500 ml 500 ml @ 167 mls/hr IVPB Q24HR [place] Rx#: [id number] propofoL 1,000 mg In 200 Empty Bag 1 bag @ 30 MCG/ KG/MIN 26.37 mls/hr IV . Q3H48M [place] Rx#:[id number] propofoL 1,000 mg In 100 432.450 167.55 Empty Bag 1 bag @ 30 MCG/ KG/MIN 26.37 mls/hr IV . Q3H48M [place] Rx#:[id number] Oral 0 Blood Product 310 Rc As-1 Unit 310 [id number] Output: Gastric Drainage 130 200 100 Urine 685 945 305 Other: Voiding Method Indwelling Catheter Indwelling Catheter Indwelling Catheter ABP, PAP, CO, CI - Last Documented Arterial Blood Pressure 95/56 - Exam GENERAL DESCRIPTION: An elderly male intubated on the vent RESPIRATORY SYSTEM: Unlabored breathing , decreased breath sounds at bases HEART: S1 S2 regular rate and rhythm , ABDOMEN: Soft , no tenderness EXTREMITIES: No edema feet - Labs CBC & Chem 7: 10/18/23 10:37 10/18/23 04:15 Labs: Abnormal Lab Results - Last 24 Hours (Table) 10/16/23 10/16/23 10/16/23 Range/Units 12:15 12:15 14:30 WBC 33.6 H (3.8-10.6) k/uL RBC 2.45 L (4.30-5.90) m/uL Hgb 7.6 L (13.0-17.5) gm/dL Hct 22.7 L (39.0-53.0) % Plt Count (150-450) k/uL Neutrophils # (1.3-7.7) k/uL Monocytes # (0-1.0) k/uL Fibrinogen (200-500) mg/dL ABG pH (7.35-7.45) ABG HCO3 (21-25) mmol/L ABG Total CO2 (19-24) mmol/L ABG O2 Saturation (94-97) % Sodium (137-145) mmol/L Carbon Dioxide (22-30) mmol/L BUN (9-20) mg/dL Creatinine (0.66-1.25) mg/dL Glucose (74-99) mg/dL POC Glucose (mg/dL) 185 H (70-110) mg/dL Calcium (8.4-10.2) mg/dL Lactate Dehydrogenase 1939 H (120-246) U/L Crossmatch 10/16/23 10/16/23 10/16/23 Range/Units 16:54 17:40 19:53 WBC (3.8-10.6) k/uL RBC (4.30-5.90) m/uL Hgb (13.0-17.5) gm/dL Hct (39.0-53.0) % Plt Count (150-450) k/uL Neutrophils # (1.3-7.7) k/uL Monocytes # (0-1.0) k/uL Fibrinogen (200-500) mg/dL ABG pH (7.35-7.45) ABG HCO3 (21-25) mmol/L ABG Total CO2 (19-24) mmol/L ABG O2 Saturation (94-97) % Sodium (137-145) mmol/L Carbon Dioxide (22-30) mmol/L BUN (9-20) mg/dL Creatinine (0.66-1.25) mg/dL Glucose (74-99) mg/dL POC Glucose (mg/dL) 211 H 193 H (70-110) mg/dL Calcium (8.4-10.2) mg/dL Lactate Dehydrogenase (120-246) U/L Crossmatch See Detail 10/16/23 10/16/23 10/17/23 Range/Units 22:54 23:47 01:38 WBC 26.7 H (3.8-10.6) k/uL RBC 2.63 L (4.30-5.90) m/uL Hgb 8.2 L (13.0-17.5) gm/dL Hct 24.4 L (39.0-53.0) % Plt Count 124 L (150-450) k/uL Neutrophils # (1.3-7.7) k/uL Monocytes # (0-1.0) k/uL Fibrinogen (200-500) mg/dL ABG pH (7.35-7.45) ABG HCO3 (21-25) mmol/L ABG Total CO2 (19-24) mmol/L ABG O2 Saturation (94-97) % Sodium (137-145) mmol/L Carbon Dioxide (22-30) mmol/L BUN (9-20) mg/dL Creatinine (0.66-1.25) mg/dL Glucose (74-99) mg/dL POC Glucose (mg/dL) 165 H (70-110) mg/dL Calcium (8.4-10.2) mg/dL Lactate Dehydrogenase 1882 H (120-246) U/L Crossmatch 10/17/23 10/17/23 10/17/23 Range/Units 03:38 04:56 04:56 WBC 25.6 H (3.8-10.6) k/uL RBC 2.62 L (4.30-5.90) m/uL Hgb 8.2 L (13.0-17.5) gm/dL Hct 24.4 L (39.0-53.0) % Plt Count 122 L (150-450) k/uL Neutrophils # 20.8 H (1.3-7.7) k/uL Monocytes # 2.0 H (0-1.0) k/uL Fibrinogen (200-500) mg/dL ABG pH (7.35-7.45) ABG HCO3 (21-25) mmol/L ABG Total CO2 (19-24) mmol/L ABG O2 Saturation (94-97) % Sodium 132 L (137-145) mmol/L Carbon Dioxide 32 H (22-30) mmol/L BUN 53 H (9-20) mg/dL Creatinine 1.75 H (0.66-1.25) mg/dL Glucose 131 H (74-99) mg/dL POC Glucose (mg/dL) 148 H (70-110) mg/dL Calcium 6.9 L (8.4-10.2) mg/dL Lactate Dehydrogenase (120-246) U/L Crossmatch 10/17/23 10/17/23 10/17/23 Range/Units 05:50 06:59 06:59 WBC (3.8-10.6) k/uL RBC (4.30-5.90) m/uL Hgb (13.0-17.5) gm/dL Hct (39.0-53.0) % Plt Count (150-450) k/uL Neutrophils # (1.3-7.7) k/uL Monocytes # (0-1.0) k/uL Fibrinogen 521 H (200-500) mg/dL ABG pH 7.48 H (7.35-7.45) ABG HCO3 32 H (21-25) mmol/L ABG Total CO2 33 H (19-24) mmol/L ABG O2 Saturation 97.4 H (94-97) % Sodium (137-145) mmol/L Carbon Dioxide (22-30) mmol/L BUN (9-20) mg/dL Creatinine (0.66-1.25) mg/dL Glucose (74-99) mg/dL POC Glucose (mg/dL) (70-110) mg/dL Calcium (8.4-10.2) mg/dL Lactate Dehydrogenase 1998 H (120-246) U/L Crossmatch 10/17/23 10/17/23 Range/Units 08:44 11:53 WBC (3.8-10.6) k/uL RBC (4.30-5.90) m/uL Hgb (13.0-17.5) gm/dL Hct (39.0-53.0) % Plt Count (150-450) k/uL Neutrophils # (1.3-7.7) k/uL Monocytes # (0-1.0) k/uL Fibrinogen (200-500) mg/dL ABG pH (7.35-7.45) ABG HCO3 (21-25) mmol/L ABG Total CO2 (19-24) mmol/L ABG O2 Saturation (94-97) % Sodium (137-145) mmol/L Carbon Dioxide (22-30) mmol/L BUN (9-20) mg/dL Creatinine (0.66-1.25) mg/dL Glucose (74-99) mg/dL POC Glucose (mg/dL) 166 H 157 H (70-110) mg/dL Calcium (8.4-10.2) mg/dL Lactate Dehydrogenase (120-246) U/L Crossmatch Microbiology - Last 24 Hours (Table) 10/15/23 14:20 Gram Stain - Preliminary Sputum 10/15/23 13:18 Blood Culture - Preliminary Blood Assessment and Plan (1) COVID-19 Current Visit: Yes Status: Acute Code(s): U07.1 - COVID-19 SNOMED Code(s): 975936380 (2) Sepsis Current Visit: Yes Status: Acute Code(s): A41.9 - SEPSIS, UNSPECIFIED ORGANISM SNOMED Code(s): 13840868 (3) Pneumonia Current Visit: Yes Status: Acute Code(s): J18.9 - PNEUMONIA, UNSPECIFIED ORGANISM SNOMED Code(s): 357763700 (4) Penicillin allergy Current Visit: Yes Status: Acute Code(s): Z88.0 - ALLERGY STATUS TO PENICILLIN SNOMED Code(s): 40641780 (5) Thrush, oral Current Visit: Yes Status: Acute Code(s): B37.0 - CANDIDAL STOMATITIS SNOMED Code(s): 18380396 Plan: 1patient did have significant changes in clinical condition he did have a cardiac arrest on 10/14/2023 Patient Was Taken to the [facility] status post PTCA and stenting x 2 patient did have a new fever and is requiring pressor support 2- blood cultures CRP procalcitonin sputum for Gram stain culture has been obtained and cultures are currently pending 3-patient remains to be critically ill antibiotic were adjusted to meropenem and vancomycin which will be continued while waiting for the culture to finalize and monitor clinical course closely Dictation was produced using [employer] dictation software. please excuse any grammatical, word or spelling errors. Time with Patient: Less than 30
--- NOTE | 2023-10-18 12:35 | P.PN ---
Subjective Progress Note Date: 10/18/23 Principal diagnosis: Reason for follow-up is COVID-19 and pneumonia Patient is a 77-year-old male with a past medical history significant for hypertension seizure disorder hypothyroidism patient has been brought into the hospital for evaluation of generalized weakness patient was noticed to be on the bathroom floor after apparently patient fell down, patient did tested positive for COVID-19, initial chest x-ray reported negative.Patient did have significant change in his clinical condition and did have a cardiac arrest on 10/14/2023 the patient was taken to the [facility] and did have PTCA and stenting x 5 subsequently patient has been admitted to ICU. On today's visit that is 10/18/2023,the patient did spike a fever of 102 F this morning and 101.9 at noon, FiO2 stable at 60%, no significant purulent secretions through the ET, patient noted to have drop in hemoglobin and is currently getting a transfusion no other changes reported by the nursing staff, the patient requiring more pressor support compared to yesterday per the nursing staff Patient white count is down to 22.2 creatinine slightly up to 2.1 8 repeat cultures are pending Objective - Vital Signs Vital signs: Vital Signs Temp 100.4 F H 10/18/23 12:25 Pulse 105 H 10/18/23 12:25 Resp 26 H 10/18/23 12:25 BP 96/51 10/18/23 12:25 Pulse Ox 97 10/18/23 12:25 FiO2 50 10/18/23 11:40 Intake & Output 10/17/23 10/18/23 10/18/23 18:59 06:59 18:59 Intake Total 9569.417 5142.508 1671.829 Output Total 785 535 170 Balance 824.676 523.297 6722.829 Weight 119.5 kg 119.5 kg Intake: IV 779 150 8477 A-line 69 72 36 Invasive Line 8 10 Meropenem 1 gm In Sodium 100 100 100 Chloride 0.9% 100 ml @ 33 .3 mls/hr IVPB Q8HR [place] Rx#:[id number] Sodium Chloride 0.9% 1, 300 000 ml @ 75 mls/hr IV . [id number] [place] Rx#:[id number] Sodium Chloride 0.9% 500 500 ml 500 ml @ 999 mls/hr IV .Q31M [facility] Rx#:[id number] Vancomycin 1,750 mg In 500 500 Sodium Chloride 0.9% 500 ml 500 ml @ 167 mls/hr IVPB Q24HR [facility] Rx#: [id number] Intake, IV Titration 640.676 924.508 465.829 Amount DOBUTamine DRIP 500 mg In 43.99 Dextrose/Water 1 250ml. bag @ 2.5 MCG/KG/MIN 8. 798 mls/hr IV .Q24H [facility] Rx#:[id number] Heparin Sod,Pork in 0.45% 0 182.539 135.659 NaCl 25,000 unit In 0.45 % NaCl 1 250ml.bag @ 6.83 UNITS/KG/HR 10.006 mls/ hr IV .Q24H [facility] Rx#: [id number] Norepinephrine 8 mg In 32.462 181.851 73.231 Sodium Chloride 0.9% 250 ml @ 0.03 MCG/KG/MIN 8. 504 mls/hr IV .Q24H [facility] Rx#:[id number] fentaNYL (PF). 1,000 mcg 40.664 160.118 83.283 In Sodium Chloride 0.9% 80 ml @ 0.5 MCG/KG/HR 5. 865 mls/hr IV .Q17H4M [facility] Rx#:[id number] propofoL 1,000 mg In 567.55 400 129.666 Empty Bag 1 bag @ 30 MCG/ KG/MIN 26.37 mls/hr IV . Q3H48M [facility] Rx#:[id number] Oral 0 0 Blood Product 0 Unit 0 Other 30 60 Output: Gastric Drainage 100 Urine 685 535 170 Other: Voiding Method Indwelling Catheter Indwelling Catheter Indwelling Catheter # Bowel Movements 0 ABP, PAP, CO, CI - Last Documented Arterial Blood Pressure 107/53 - Exam GENERAL DESCRIPTION: An elderly male intubated on the vent RESPIRATORY SYSTEM: Unlabored breathing , decreased breath sounds at bases HEART: S1 S2 regular rate and rhythm , ABDOMEN: Soft , no tenderness EXTREMITIES: No edema feet - Labs CBC & Chem 7: 10/18/23 10:37 10/18/23 04:15 Labs: Abnormal Lab Results - Last 24 Hours (Table) 10/16/23 10/17/23 10/17/23 Range/Units 17:40 15:25 16:51 WBC (3.8-10.6) k/uL RBC (4.30-5.90) m/uL Hgb (13.0-17.5) gm/dL Hct (39.0-53.0) % Plt Count (150-450) k/uL Neutrophils # (1.3-7.7) k/uL Monocytes # (0-1.0) k/uL APTT (22.0-30.0) sec Fibrinogen (200-500) mg/dL ABG pH (7.35-7.45) ABG pCO2 (35-45) mmHg ABG HCO3 (21-25) mmol/L ABG Total CO2 (19-24) mmol/L Sodium (137-145) mmol/L Carbon Dioxide (22-30) mmol/L BUN (9-20) mg/dL Creatinine (0.66-1.25) mg/dL Glucose (74-99) mg/dL POC Glucose (mg/dL) 180 H (70-110) mg/dL Calcium (8.4-10.2) mg/dL AST (17-59) U/L ALT (4-49) U/L Lactate Dehydrogenase 1799 H (120-246) U/L Total Protein (6.3-8.2) g/dL Albumin (3.5-5.0) g/dL Crossmatch See Detail 10/17/23 10/17/23 10/17/23 Range/Units 19:53 23:00 23:00 WBC (3.8-10.6) k/uL RBC (4.30-5.90) m/uL Hgb (13.0-17.5) gm/dL Hct (39.0-53.0) % Plt Count (150-450) k/uL Neutrophils # (1.3-7.7) k/uL Monocytes # (0-1.0) k/uL APTT 46.7 H (22.0-30.0) sec Fibrinogen 550 H (200-500) mg/dL ABG pH (7.35-7.45) ABG pCO2 (35-45) mmHg ABG HCO3 (21-25) mmol/L ABG Total CO2 (19-24) mmol/L Sodium (137-145) mmol/L Carbon Dioxide (22-30) mmol/L BUN (9-20) mg/dL Creatinine (0.66-1.25) mg/dL Glucose (74-99) mg/dL POC Glucose (mg/dL) 174 H (70-110) mg/dL Calcium (8.4-10.2) mg/dL AST (17-59) U/L ALT (4-49) U/L Lactate Dehydrogenase 1401 H (120-246) U/L Total Protein (6.3-8.2) g/dL Albumin (3.5-5.0) g/dL Crossmatch 10/17/23 10/18/23 10/18/23 Range/Units 23:44 04:15 04:15 WBC 26.3 H (3.8-10.6) k/uL RBC 2.31 L (4.30-5.90) m/uL Hgb 7.3 L (13.0-17.5) gm/dL Hct 22.1 L (39.0-53.0) % Plt Count 117 L (150-450) k/uL Neutrophils # 21.0 H (1.3-7.7) k/uL Monocytes # 1.5 H (0-1.0) k/uL APTT (22.0-30.0) sec Fibrinogen (200-500) mg/dL ABG pH (7.35-7.45) ABG pCO2 (35-45) mmHg ABG HCO3 (21-25) mmol/L ABG Total CO2 (19-24) mmol/L Sodium 132 L (137-145) mmol/L Carbon Dioxide 33 H (22-30) mmol/L BUN 57 H (9-20) mg/dL Creatinine 2.18 H (0.66-1.25) mg/dL Glucose 139 H (74-99) mg/dL POC Glucose (mg/dL) 180 H (70-110) mg/dL Calcium 7.0 L (8.4-10.2) mg/dL AST 257 H (17-59) U/L ALT 225 H (4-49) U/L Lactate Dehydrogenase (120-246) U/L Total Protein 4.9 L (6.3-8.2) g/dL Albumin 2.1 L (3.5-5.0) g/dL Crossmatch 0310/18/23 10/18/23 Range/Units 04:17 06:03 06:54 WBC (3.8-10.6) k/uL RBC (4.30-5.90) m/uL Hgb (13.0-17.5) gm/dL Hct (39.0-53.0) % Plt Count (150-450) k/uL Neutrophils # (1.3-7.7) k/uL Monocytes # (0-1.0) k/uL APTT (22.0-30.0) sec Fibrinogen 535 H (200-500) mg/dL ABG pH 7.33 L (7.35-7.45) ABG pCO2 54 H (35-45) mmHg ABG HCO3 29 H (21-25) mmol/L ABG Total CO2 30 H (19-24) mmol/L Sodium (137-145) mmol/L Carbon Dioxide (22-30) mmol/L BUN (9-20) mg/dL Creatinine (0.66-1.25) mg/dL Glucose (74-99) mg/dL POC Glucose (mg/dL) 156 H (70-110) mg/dL Calcium (8.4-10.2) mg/dL AST (17-59) U/L ALT (4-49) U/L Lactate Dehydrogenase (120-246) U/L Total Protein (6.3-8.2) g/dL Albumin (3.5-5.0) g/dL Crossmatch 10/18/23 10/18/23 10/18/23 Range/Units 06:54 08:30 10:37 WBC 22.2 H (3.8-10.6) k/uL RBC 1.98 L (4.30-5.90) m/uL Hgb 6.3 L* (13.0-17.5) gm/dL Hct 19.0 L* (39.0-53.0) % Plt Count 106 L (150-450) k/uL Neutrophils # (1.3-7.7) k/uL Monocytes # (0-1.0) k/uL APTT (22.0-30.0) sec Fibrinogen (200-500) mg/dL ABG pH (7.35-7.45) ABG pCO2 (35-45) mmHg ABG HCO3 (21-25) mmol/L ABG Total CO2 (19-24) mmol/L Sodium (137-145) mmol/L Carbon Dioxide (22-30) mmol/L BUN (9-20) mg/dL Creatinine (0.66-1.25) mg/dL Glucose (74-99) mg/dL POC Glucose (mg/dL) 166 H (70-110) mg/dL Calcium (8.4-10.2) mg/dL AST (17-59) U/L ALT (4-49) U/L Lactate Dehydrogenase 1388 H (120-246) U/L Total Protein (6.3-8.2) g/dL Albumin (3.5-5.0) g/dL Crossmatch 10/18/23 Range/Units 11:45 WBC (3.8-10.6) k/uL RBC (4.30-5.90) m/uL Hgb (13.0-17.5) gm/dL Hct (39.0-53.0) % Plt Count (150-450) k/uL Neutrophils # (1.3-7.7) k/uL Monocytes # (0-1.0) k/uL APTT (22.0-30.0) sec Fibrinogen (200-500) mg/dL ABG pH (7.35-7.45) ABG pCO2 (35-45) mmHg ABG HCO3 (21-25) mmol/L ABG Total CO2 (19-24) mmol/L Sodium (137-145) mmol/L Carbon Dioxide (22-30) mmol/L BUN (9-20) mg/dL Creatinine (0.66-1.25) mg/dL Glucose (74-99) mg/dL POC Glucose (mg/dL) 142 H (70-110) mg/dL Calcium (8.4-10.2) mg/dL AST (17-59) U/L ALT (4-49) U/L Lactate Dehydrogenase (120-246) U/L Total Protein (6.3-8.2) g/dL Albumin (3.5-5.0) g/dL Crossmatch Microbiology - Last 24 Hours (Table) 10/15/23 13:18 Blood Culture - Preliminary Blood 10/15/23 14:20 Gram Stain - Preliminary Sputum Assessment and Plan (1) COVID-19 Current Visit: Yes Status: Acute Code(s): U07.1 - COVID-19 SNOMED Code(s): 674402152 (2) Sepsis Current Visit: Yes Status: Acute Code(s): A41.9 - SEPSIS, UNSPECIFIED ORGANISM SNOMED Code(s): 69531994 (3) Pneumonia Current Visit: Yes Status: Acute Code(s): J18.9 - PNEUMONIA, UNSPECIFIED ORGANISM SNOMED Code(s): 823040031 (4) Penicillin allergy Current Visit: Yes Status: Acute Code(s): Z88.0 - ALLERGY STATUS TO PENICILLIN SNOMED Code(s): 96230553 (5) Thrush, oral Current Visit: Yes Status: Acute Code(s): B37.0 - CANDIDAL STOMATITIS SNOMED Code(s): 61482993 Plan: 1patient did have significant changes in clinical condition he did have a cardiac arrest on 10/14/2023 Patient Was Taken to the [facility] status post PTCA and stenting x 5 patient did have a new fever and is requiring pressor support 2- blood cultures and sputum for Gram stain culture are currently pending 3-patient remains to be critically ill, patient is currently broadly covered with meropenem and vancomycin, while waiting for the culture to finalize and monitor clinical course closely, prognosis remains to be guarded Dictation was produced using [employer] dictation software. please excuse any grammatical, word or spelling errors. Time with Patient: Less than 30
[2023-10-18 16:16] LABS: ABG Base Excess 2.1 mmol/L; ABG HCO3 27 mmol/L (21-25); ABG Oxygen Saturation 97.6 % (94-97); ABG PCO2 40 mmHg (35-45); ABG PH 7.43 (7.35-7.45); ABG PO2 89 mmHg (83-108); ABG TCO2 28 mmol/L (19-24)
[2023-10-18 16:20] LABS: ABG HCO3 28 mmol/L (21-25); ABG Oxygen Saturation 62.7 % (94-97); ABG PCO2 48 mmHg (35-45); ABG PH 7.38 (7.35-7.45); ABG TCO2 30 mmol/L (19-24)
[2023-10-18 16:24] LABS: Allen Test Performed? no
[2023-10-18 16:25] LABS: ABG PO2 32 mmHg (83-108); Allen Test Performed? no
--- NOTE | 2023-10-18 16:56 | P.PN ---
Subjective Progress Note Date: 10/18/23 ACS This is a 77-year-old gentleman with history of hypertension and dyslipidemia and seizure disorder and thyroid disease and prior history of smoking. The patient was admitted to the hospital initially with a change in mental status after he fell in the bathroom at home. The patient lives with his grandson. We consulted to see the patient because of cardiac arrest with ventricular fibrillation/ventricular tachycardia where the patient subsequently received CPR according to the nurse taking care of him for about 12 hours and then he was intubated and he was brought to the intensive care unit. The history was taken from the chart because the patient was already intubated when he was seen in the intensive care unit. He was found on the floor by his family for several hours. He was weak. He attempted to get up but he could not. EMS was called and the patient was brought to the emergency department by ambulance. He underwent further investigation including CT scan of the brain which showed no acute abnormalities and EKG showed sinus mechanism with nonspecific ST and T wave abnormalities. Hemoglobin was within normal limits. Electrolytes were within normal limits beside hyponatremia. The chest x-ray showed no acute abnormalities beside elevated right hemidiaphragm. He was diagnosed with acute hypoxic respiratory failure and also he had recent coronavirus infection. During his hospital stay he had a cardiac arrest with V-fib. He was converted to normal sinus mechanism after he received CPR and received amiodarone and lidocaine. I did review the EKG when I I was called to see the patient and that showed lateral ST segment elevation myocardial infarction. STEMI code was called. The patient was brought to the cardiac [employer] immediately and he underwent an emergent heart catheterization and that revealed severe disease involving the ostial and proximal right coronary artery with occluded left circumflex appeared to be an acute occlusion. The lesion in the left circumflex was extremely complex and was very hard to cross. During the procedure he had another episode of cardiac arrest with pulseless electrical activities and we lost the floor in the left coronary system. The patient ended having stenting in the left main to LAD and stenting of the obtuse marginal branch and stenting of the right coronary artery and Impella CP was placed to support the pressure. Please refer to the procedure note for further details. The examination showed distant heart sounds with regular rhythm and soft nontender abdomen and diminished breathing sounds bilaterally. No edema was noted in the lower extremities October 15, 2023 The patient was seen and evaluated this morning. He continues to be intubated on mechanical ventilation. The chest x-ray was reviewed. He is off vasopressors but continues to be on norepinephrine which is in process to weaned from norepinephrine. He continues to be on heparin and Aggrastat. He is on dual antiplatelet therapy along with a statin. Hemodynamically he is overall slightly better. He has been maintaining normal sinus mechanism. From the cardiovascular standpoint of view I will continue the current medical regimen and switch the patient to oral amiodarone and DC lidocaine and stop Aggrastat at 18 hours. Apparently he cannot be on any beta-yazmin or FLORIN inhibitor at this point giving the low blood pressure. The examination is remarkable for regular rhythm with a distant heart sounds and diminished breathing sounds bilaterally and he does have a good Doppler signal in the left foot. October 16, 2023 The patient was seen and evaluated this morning. He continues to be on norepinephrine only at the small dose. His hemoglobin dropped to around 7 with ongoing to give the patient 1 unit of packed RBC hopefully we can wean him from norepinephrine and also hopefully it will improve the section of the arm on the Impella. Neurologically he is slightly better after the sedation was weaned. He continues to be on dual antiplatelet therapy. He continues to be on amiodarone. He continues to be on statin. Urine output has been marginal. I had a long discussion with the family in details about the condition and about the prognosis overall and they are in full understanding the poor prognosis overall. The examination is remarkable for regular rhythm with a distant heart sounds and diminished breathing sounds bilaterally and bilateral lower extremities edema noted. We had to stop the heparin because of gastrointestinal bleeding. The last episode of gastrointestinal bleeding was earlier this morn ing. 10/17/2023 Patient seen and examined at bedside this a.m. He is on norepinephrine 0.02. He is on Impella with P7 with 3 L output. MAP around 65 to 70 mmHg. Patient does not have any Hobucken catheter in place. Bedside echocardiogram showed an EF of 10 to 15% with normally positioned Impella. IVC is not dilated Inputs and outputs: Around 500 cc of urine last 24 hours with total of 700 cc positive fluid balance. Labs: Hb 8.2, creatinine 1.75, BUN 53, sodium 132. 10/18/2023 Patient was seen and examined at bedside this a.m. Yesterday by evening Impella was reduced to P4 and norepinephrine to 0.04. Overnight patient had low blood pressure. We attempted to wean off norepinephrine and start him on dobutamine which patient could not tolerate. Eventually dobutamine was discontinued and patient was put back on norepinephrine. Patient has been requiring P7 Impella with 3 L output. At present 4 PM 10/18/2023, patient is off norepinephrine, P7 Impella 3 L output. Janee cardiac index 1.9 L/min/m, Janee cardiac output 4.9 L/min, stroke-volume 50 ml. Patient's hemoglobin dropped from 8 to 7-6.3 today. Patient also had black watery stools. He required 1 unit of blood transfusion. His IV heparin was discontinued which was started for Impella. Assessment Cardiogenic Shock, impella dependant and pressor dependant Ischemic cardiomyopathy with EF 10-15% Acute anemia GI bleeding STEMI Acute total occlusion of the left circumflex proximally Severe disease involving the right coronary artery Cardiac arrest as described above Multiple risk factors including hypertension and dyslipidemia History of seizure Plan Continue aspirin, Plavix, statin Continue amiodarone orally Give the patient 1 unit of packed RBC if Hb <7 At present patient was on P7 and off nor epi. Unable to titrate down Impella. Patient cannot tolerate dobutamine. Bedside echocardiogram showed EF of 15%, Impella in appropriate position. Discontinue IV heparin in view of low hemoglobin and GI bleeding. Patient is not a candidate for EGD and colonoscopy at present due to hemodynamic instability. Unable to receive sedation holiday as patient gets significantly tachypneic and has stacking of breaths on ventilator support. He is on 20 mics of propofol. Unable to assess brainstem functions due to this. Will consult neurology to assess brainstem function and anoxic brain injury. Considering patient's anemia, active GI bleeding, failure to wean off Impella support, cardiogenic shock, lack of response to dobutamine, inability to start IV heparin in setting of Impella, ventilator dependent respiratory failure with 50% FiO2 and 12% PEEP, patient's overall prognosis is very poor. I have had a family discussion and have explained the patient's current condition. Patient's family will take a decision about CODE STATUS and comfort measures in next 24 hours. Will continue full care until then. I have discussed the possible option of [facility] ECMO but he is a poor candidate for it as he is not able to tolerate any anticoagulation because of anemia and active GI bleeding. Objective - Vital Signs Vital signs: Vital Signs Temp 100.1 F H 10/18/23 15:43 Pulse 93 10/18/23 15:43 Resp 26 H 10/18/23 15:43 BP 98/52 10/18/23 15:43 Pulse Ox 96 10/18/23 15:43 FiO2 50 10/18/23 15:17 Intake & Output 10/17/23 10/18/23 10/18/23 18:59 06:59 18:59 Intake Total 2812.592 4870.508 2158.068 Output Total 785 535 270 Balance 824.676 173.085 9786.068 Weight 119.5 kg 119.5 kg Intake: IV 343 228 8134 A-line 69 72 48 Invasive Line 8 10 Meropenem 1 gm In Sodium 100 100 100 Chloride 0.9% 100 ml @ 33 .3 mls/hr IVPB Q8HR [facility] Rx#:[id number] Sodium Chloride 0.9% 1, 300 000 ml @ 75 mls/hr IV . [id number] [facility] Rx#:[id number] Sodium Chloride 0.9% 500 500 ml 500 ml @ 999 mls/hr IV .Q31M [facility] Rx#:[id number] Vancomycin 1,750 mg In 500 500 Sodium Chloride 0.9% 500 ml 500 ml @ 167 mls/hr IVPB Q24HR [facility] Rx#: [id number] Intake, IV Titration 640.676 924.508 630.068 Amount DOBUTamine DRIP 500 mg In 43.99 Dextrose/Water 1 250ml. bag @ 2.5 MCG/KG/MIN 8. 798 mls/hr IV .Q24H [facility] Rx#:[id number] Heparin Sod,Pork in 0.45% 0 182.539 135.659 NaCl 25,000 unit In 0.45 % NaCl 1 250ml.bag @ 6.83 UNITS/KG/HR 10.006 mls/ hr IV .Q24H [facility] Rx#: [id number] Norepinephrine 8 mg In 32.462 181.851 145.707 Sodium Chloride 0.9% 250 ml @ 0.03 MCG/KG/MIN 8. 504 mls/hr IV .Q24H [facility] Rx#:[id number] fentaNYL (PF). 1,000 mcg 40.664 160.118 99.218 In Sodium Chloride 0.9% 80 ml @ 0.5 MCG/KG/HR 5. 865 mls/hr IV .Q17H4M [facility] Rx#:[id number] propofoL 1,000 mg In 567.55 400 205.494 Empty Bag 1 bag @ 30 MCG/ KG/MIN 26.37 mls/hr IV . Q3H48M [facility] Rx#:[id number] Oral 0 0 Blood Product 310 Rc As-1 Unit 310 [id number] Other 30 60 Output: Gastric Drainage 100 Urine 685 535 270 Other: Voiding Method Indwelling Catheter Indwelling Catheter Indwelling Catheter # Bowel Movements 0 ABP, PAP, CO, CI - Last Documented Arterial Blood Pressure 105/54 - Labs CBC & Chem 7: 10/18/23 10:37 10/18/23 04:15 Labs: Abnormal Lab Results - Last 24 Hours (Table) 10/16/23 10/17/23 10/17/23 Range/Units 17:40 16:51 19:53 WBC (3.8-10.6) k/uL RBC (4.30-5.90) m/uL Hgb (13.0-17.5) gm/dL Hct (39.0-53.0) % Plt Count (150-450) k/uL Neutrophils # (1.3-7.7) k/uL Monocytes # (0-1.0) k/uL APTT (22.0-30.0) sec Fibrinogen (200-500) mg/dL ABG pH (7.35-7.45) ABG pCO2 (35-45) mmHg ABG pO2 (83-108) mmHg ABG HCO3 (21-25) mmol/L ABG Total CO2 (19-24) mmol/L ABG O2 Saturation (94-97) % Sodium (137-145) mmol/L Carbon Dioxide (22-30) mmol/L BUN (9-20) mg/dL Creatinine (0.66-1.25) mg/dL Glucose (74-99) mg/dL POC Glucose (mg/dL) 180 H 174 H (70-110) mg/dL Calcium (8.4-10.2) mg/dL AST (17-59) U/L ALT (4-49) U/L Lactate Dehydrogenase (120-246) U/L Total Protein (6.3-8.2) g/dL Albumin (3.5-5.0) g/dL Crossmatch See Detail 10/17/23 10/17/23 10/17/23 Range/Units 23:00 23:00 23:44 WBC (3.8-10.6) k/uL RBC (4.30-5.90) m/uL Hgb (13.0-17.5) gm/dL Hct (39.0-53.0) % Plt Count (150-450) k/uL Neutrophils # (1.3-7.7) k/uL Monocytes # (0-1.0) k/uL APTT 46.7 H (22.0-30.0) sec Fibrinogen 550 H (200-500) mg/dL ABG pH (7.35-7.45) ABG pCO2 (35-45) mmHg ABG pO2 (83-108) mmHg ABG HCO3 (21-25) mmol/L ABG Total CO2 (19-24) mmol/L ABG O2 Saturation (94-97) % Sodium (137-145) mmol/L Carbon Dioxide (22-30) mmol/L BUN (9-20) mg/dL Creatinine (0.66-1.25) mg/dL Glucose (74-99) mg/dL POC Glucose (mg/dL) 180 H (70-110) mg/dL Calcium (8.4-10.2) mg/dL AST (17-59) U/L ALT (4-49) U/L Lactate Dehydrogenase 1401 H (120-246) U/L Total Protein (6.3-8.2) g/dL Albumin (3.5-5.0) g/dL Crossmatch 10/18/23 10/18/23 10/18/23 Range/Units 04:15 04:15 04:17 WBC 26.3 H (3.8-10.6) k/uL RBC 2.31 L (4.30-5.90) m/uL Hgb 7.3 L (13.0-17.5) gm/dL Hct 22.1 L (39.0-53.0) % Plt Count 117 L (150-450) k/uL Neutrophils # 21.0 H (1.3-7.7) k/uL Monocytes # 1.5 H (0-1.0) k/uL APTT (22.0-30.0) sec Fibrinogen (200-500) mg/dL ABG pH (7.35-7.45) ABG pCO2 (35-45) mmHg ABG pO2 (83-108) mmHg ABG HCO3 (21-25) mmol/L ABG Total CO2 (19-24) mmol/L ABG O2 Saturation (94-97) % Sodium 132 L (137-145) mmol/L Carbon Dioxide 33 H (22-30) mmol/L BUN 57 H (9-20) mg/dL Creatinine 2.18 H (0.66-1.25) mg/dL Glucose 139 H (74-99) mg/dL POC Glucose (mg/dL) 156 H (70-110) mg/dL Calcium 7.0 L (8.4-10.2) mg/dL AST 257 H (17-59) U/L ALT 225 H (4-49) U/L Lactate Dehydrogenase (120-246) U/L Total Protein 4.9 L (6.3-8.2) g/dL Albumin 2.1 L (3.5-5.0) g/dL Crossmatch 10/18/23 10/18/23 10/18/23 Range/Units 06:03 06:54 06:54 WBC (3.8-10.6) k/uL RBC (4.30-5.90) m/uL Hgb (13.0-17.5) gm/dL Hct (39.0-53.0) % Plt Count (150-450) k/uL Neutrophils # (1.3-7.7) k/uL Monocytes # (0-1.0) k/uL APTT (22.0-30.0) sec Fibrinogen 535 H (200-500) mg/dL ABG pH 7.33 L (7.35-7.45) ABG pCO2 54 H (35-45) mmHg ABG pO2 (83-108) mmHg ABG HCO3 29 H (21-25) mmol/L ABG Total CO2 30 H (19-24) mmol/L ABG O2 Saturation (94-97) % Sodium (137-145) mmol/L Carbon Dioxide (22-30) mmol/L BUN (9-20) mg/dL Creatinine (0.66-1.25) mg/dL Glucose (74-99) mg/dL POC Glucose (mg/dL) (70-110) mg/dL Calcium (8.4-10.2) mg/dL AST (17-59) U/L ALT (4-49) U/L Lactate Dehydrogenase 1388 H (120-246) U/L Total Protein (6.3-8.2) g/dL Albumin (3.5-5.0) g/dL Crossmatch 10/18/23 10/18/23 10/18/23 Range/Units 08:30 10:37 11:45 WBC 22.2 H (3.8-10.6) k/uL RBC 1.98 L (4.30-5.90) m/uL Hgb 6.3 L* (13.0-17.5) gm/dL Hct 19.0 L* (39.0-53.0) % Plt Count 106 L (150-450) k/uL Neutrophils # (1.3-7.7) k/uL Monocytes # (0-1.0) k/uL APTT (22.0-30.0) sec Fibrinogen (200-500) mg/dL ABG pH (7.35-7.45) ABG pCO2 (35-45) mmHg ABG pO2 (83-108) mmHg ABG HCO3 (21-25) mmol/L ABG Total CO2 (19-24) mmol/L ABG O2 Saturation (94-97) % Sodium (137-145) mmol/L Carbon Dioxide (22-30) mmol/L BUN (9-20) mg/dL Creatinine (0.66-1.25) mg/dL Glucose (74-99) mg/dL POC Glucose (mg/dL) 166 H 142 H (70-110) mg/dL Calcium (8.4-10.2) mg/dL AST (17-59) U/L ALT (4-49) U/L Lactate Dehydrogenase (120-246) U/L Total Protein (6.3-8.2) g/dL Albumin (3.5-5.0) g/dL Crossmatch 10/18/23 10/18/23 Range/Units 16:08 16:18 WBC (3.8-10.6) k/uL RBC (4.30-5.90) m/uL Hgb (13.0-17.5) gm/dL Hct (39.0-53.0) % Plt Count (150-450) k/uL Neutrophils # (1.3-7.7) k/uL Monocytes # (0-1.0) k/uL APTT (22.0-30.0) sec Fibrinogen (200-500) mg/dL ABG pH (7.35-7.45) ABG pCO2 48 H (35-45) mmHg ABG pO2 32 L* (83-108) mmHg ABG HCO3 27 H 28 H (21-25) mmol/L ABG Total CO2 28 H 30 H (19-24) mmol/L ABG O2 Saturation 97.6 H 62.7 L (94-97) % Sodium (137-145) mmol/L Carbon Dioxide (22-30) mmol/L BUN (9-20) mg/dL Creatinine (0.66-1.25) mg/dL Glucose (74-99) mg/dL POC Glucose (mg/dL) (70-110) mg/dL Calcium (8.4-10.2) mg/dL AST (17-59) U/L ALT (4-49) U/L Lactate Dehydrogenase (120-246) U/L Total Protein (6.3-8.2) g/dL Albumin (3.5-5.0) g/dL Crossmatch Microbiology - Last 24 Hours (Table) 10/15/23 14:20 Gram Stain - Final Sputum Sputum Culture - Final 10/15/23 13:18 Blood Culture - Preliminary Blood
[2023-10-18 17:03] LABS: HCT 23.1 % (39.0-53.0); HGB 7.7 gm/dL (13.0-17.5); MCHC 33.4 g/dL (31.0-37.0); MCV 92.9 fL (80.0-100.0); Mean Platelet Volume 10.6; RBC 2.48 m/uL (4.30-5.90); RDW 14.8 % (11.5-15.5)
[2023-10-18 17:47] LABS: Platelet Count 98 k/uL (150-450)
[2023-10-18 18:06] LABS: Glucose,Whole Blood 144 mg/dL (70-110)
--- NOTE | 2023-10-18 19:21 | P.PN ---
Subjective patient is a 77-year-old gentleman past medical history significant for hypothyroidism, hypertension who presented to the ER for generalized weakness and fall. Patient was brought in by family members, apparently patient was trying to use the restroom when he lost all his strength and slumped to the ground. There was no complaint of any loss of consciousness. No complaint of weakness of any extremity. Family did not notice any slurred speech or facial droop. There was no complaint of fever or chills. No complaint of nausea, vomiting, abdominal pain. Patient's family tried to help him to get up but they were unable to lift him. They called EMS and they brought him to ER. Initial lab work done in the ER showed WBC 10.5, hemoglobin 15.2, platelet count 165, sodium 118, potassium 4.1, BUN 24, creatinine 1.26, plasma lactate 4.1, tro ponin 0.012 UA negative for any infection EKG done in the ER showed heart rate of 75, no ST segment elevation or depression seen, no T-wave inversions seen. Chest x-ray done in the ER no acute cardiopulmonary process CT head done showed no acute intracranial process Patient admitted to internal medicine service 09/29. Patient seen and examined. COVID-19 came back positive. Currently on 4 L of oxygen. Sodium this morning is 121. Still complain lethargy and weakness. Patient also diagnosed with COVID 09/30. Patient seen and examined. Blood work done this morning showed WBC 14.9, hemoglobin 12.9, platelet count 146, sodium 126, potassium 3.9, BUN 15, creatinine 0.68. States he feels much better. Shortness of breath is improved. 10/01. Patient seen and examined. Still on 15 L of oxygen via nonrebreather. States he feels better. Sodium level improved to 132, potassium 3.3, BUN 18, creatinine 0.65. Lethargy has improved. 10/02. Patient seen and examined. Currently on 8 L of oxygen via high flow nasal cannula. States he feels much better, breathing is improved, pulmonology recommended sniff test to look for right diaphragm paralysis 10/03. Patient seen and examined. Continues to be on 15 L of oxygen. Patient is not lethargic, states gets short of breath on exertion. Denies any nausea or vomiting 10/04/2023 Patient seen and evaluated in follow-up today continues to be dyspneic maintained on high flow oxygen is being transferred to [facility]. Per nursing staff he continues to remove his nasal cannula as well as nonrebreather and respiratory following recommending i continuing this for a few hours. Patient has noted to be COVID-positive. Sodium is slightly low at 132 potassium was 3.3 yesterday and replaced awaiting follow-up labs. Patient with prolonged hospitalization and continued weakness will likely need ECF once stabilized. 10/05/2023 Patient is seen in follow-up this morning continues on Airvo with maximum oxygen at 60/90 maintaining oxygen saturations in the 88 percentile range. Patient reports having worsening shortness of breath although appears somewhat confused at times. Discussed CODE STATUS with the patient and he wishes to remain full code. Patient is agreeable to mechanical ventilation if required. Patient continues to remove his oxygen from his face desats very quickly. Will get a chest x-ray and continue to monitor closely. Pulmonary and infectious disease following and patient is continued on cefepime with concerns of pneumonia. Patient is currently afebrile and denies chest pain or shortness of breath. Patient reports he is eating although not much of an appetite. 10/06/2023 Patient is seen in follow-up today was transferred to the ICU for respiratory decline per nursing staff as patient continued to have respiratory distress and low oxygen saturations becoming more hypoxic and confused. Patient is continued on Airvo max 60/90 with continued intermittent nonrebreather use. Patient is continued on steroids along with inhalers and pulmonary is following closely. Patient is afebrile with no reported chest pain or shortness of breath. Patient reports to tolerating diet although appears not to be eating very much at all. 10/07/2023 Patient is seen and evaluated in follow-up today continues in the ICU on high flow Airvo 60 L / 90% with oxygen saturations in the low 90s. On exam patient was found to have Airvo out of his nostrils and using nonrebreather and oxygen saturation was 93%. Patient is maintained on antibiotics with infectious disease following closely along with pulmonary asphalt tamping machine operator. CODE STATUS was addressed once again and patient wishes to remain full code. Wean FiO2 as t olerated. Encouraged oral intake. Patient to be evaluated by physical therapy once respiratory status improved and will need rehab. 10/09/2023 Patient lying in bed, mildly tachypneic with no chest pain He remains on Airvo 60 L/min Vital stable Remains on dexamethasone and Pepcid Resume of the care of the patient 10/12/2023 Patient with Covid infection and possible right lower lobe pneumonia finish her antibiotics. He does not need antiviral therapy but there is evidence of oral thrush and discovered covered with Diflucan and received nystatin as well. His leukocytosis stable about 18k, no fever. Patient also with fluid overload and hyponatremia sodium 1:30 status post 1 Samsca today, also patient is on IV Lasix 40 mg twice daily Patient currently is oxygen via nasal cannula saturating 88% which is improved from previous, airvo oxygen was stopped 10/13/2023 Patient is clinically stable. He is awake and alert not in distress his breathing is improving and currently he is on 4-5 L/m of oxygen which is a stable Has good air entry bilaterally. I discussed the case with pulmonary team and patient might be considered for discharge from their perspective is also on Diflucan and WBCs 18,000 Status post Samsca and sodium stable at 1:30, low potassium replaced I discussed the case with social services technician and patient does not need a bone isolation for his Covid. However he is prior authorization Possible discharge in 24-48 hours 10/14/23 Patient mentation is at baseline No new complaints, no chest pain no significant dyspnea He remains on 5 L oxygen via nasal cannula WBC improved down to 12,000, hemoglobin 12, sodium slightly low at 127, glucose controlled. Ejection fraction 60-65% Remains on Diflucan. Today IV Lasix switched to by mouth 40 mg twice daily Discussed with pillowcase maker, still pending placement. Still family having contacted staff. 10/15/2023 Patient condition deteriorated and patient developed CODE BLUE called for him and he underwent CPR per protocol with downtime estimated about 7 to 10 minutes He was taken emergently to the [facility] and a total of 5 stents placed into his coronary arteries. Postprocedure patient was taken to the ICU intubated and s edated Also he was started on Impella for hemodynamic support He was started also on aspirin, Brilinta and heparin drip Also patient developed leukocytosis up to 1 31,000 hemoglobin stable around 12. Sodium 129 Creatinine stable at 1.1 10/16/2023 Patient remains in the ICU sedated and intubated Today he lost about 400 to 500 mL of dark-colored fluid through his NG tube so heparin drip was stopped. While patient kept on aspirin and Brilinta History requires Impella in place with cardiology and critical care team following closely He remains on intubated on mechanical ventilation for respiratory support He has significant leukocytosis up to 33,000 and is currently covered with IV vancomycin and meropenem. He has been spiking fever today Also his creatinine jumped up to 1.9 and he developed acute kidney injury His condition remains critical Case discussed with staff and critical care team Patient remains in the ICU intubated and sedated, and he has been monitoring closely. They tried to wean him yesterday and he got agitated. His currently on sedative and propofol His ejection fraction is low indicating cardiogenic shock, EF is around 10 to 20% compared to 66% on the previous days. This is after the STEMI and cardiac arrest. Patient currently on Impella and small dose of Levophed with cardiology and critical care following closely. Stool wean him off Impella if that works then possibly stop Levophed and later on switched Impella to dobutamine this works. Patient does not need heparin drip and he is continued on a dual antiplatelet therapy and statin Also midodrine was added today. His condition remains critical 10/18/2023 pt condition is still critical and his response to treatment is guarded pt is still intubated , requring peep of 12 pt is hypotensive could not tolerate weaning pressores down still on aimpalla his wbc is 20k, hb dropped down to 6.3 and after 2 units of blood transfusion came up to 7.7 still on asprin and brillinta, on iv protnox bid and pepcid, on iv vancomycin, meropenem family may consider more palliative management management discussed with staff Active Medications Generic Name Dose Route Start Last Admin Trade Name Freq PRN Reason Stop Dose Admin Acetaminophen 650 mg 09/28/23 01:38 10/16/23 04:43 Acetaminophen Tab 325 Mg Tab PO 650 mg Q4HR PRN Administration Fever and/or Mild Pain Al Hydroxide/Mg Hydroxide 30 ml 10/15/23 00:00 Mag Hydrox/Al Hydrox/Simeth 30 Ml Cup PO Q4HR PRN Heartburn Albuterol Sulfate 2.5 mg 10/15/23 08:00 10/18/23 16:39 Albuterol Nebulized 2.5 Mg/3 Ml INHALATION Not Given RT-QID [facility] Amiodarone HCl 400 mg 10/15/23 10:08 10/18/23 08:07 Amiodarone 200 Mg Tab PO 400 mg BID OH Administration Aspirin 81 mg 10/15/23 10:19 10/18/23 08:07 Aspirin 81 Mg PO 81 mg DAILY OH Administration Atorvastatin Calcium 80 mg 10/15/23 21:00 10/17/23 20:10 Atorvastatin 80 Mg Tab PO 80 mg HS OH Administration Atropine Sulfate 0.5 mg 10/14/23 22:23 Atropine Sulfate 0.1 Mg/Ml 10ml Syringe IV ONCE PRN Symptomatic Bradycardia Chlorhexidine Gluconate 15 ml 10/14/23 21:00 10/18/23 08:07 Chlorhexidine Gluconate 15 Ml Cup MUCOUS MEM 15 ml BID OH Administration Dextrose/Water 25 ml 10/15/23 08:19 Dextrose 50% Syringe 50 Ml IVP PER PROTOCOL PRN Hypoglycemia Protocol Dextrose/Water 50 ml 10/15/23 08:19 Dextrose 50% Syringe 50 Ml IVP PER PROTOCOL PRN Hypoglycemia Protocol Divalproex Sodium 1,000 mg 10/15/23 21:00 10/17/23 20:32 Divalproex Sprinkle 125 Mg Cap.Sprink PO 1,000 mg HS OH Administration Ergocalciferol 1,250 mcg 10/03/23 09:00 10/17/23 09:33 Ergocalciferol 1,250 Mcg (50,000 Iu) Capsule PO Not Given Q14D OH Famotidine 20 mg 10/06/23 21:00 10/18/23 08:07 Famotidine 20 Mg Tab PO 20 mg BID OH Administration Heparin Sodium (Porcine) 0 unit 10/14/23 22:40 10/15/23 09:56 Heparin Sodium 1,000 Un/Ml (10ml Vl) IV 2,667.5 unit PER PROTOCOL PRN Administration Low PTT Protocol Hydromorphone HCl 0.5 mg 10/16/23 00:20 10/17/23 12:13 Hydromorphone 0.5 Mg/0.5 Ml Syringe IVP 0.5 mg Q4HR PRN Administration Pain Norepinephrine Bitartrate 8 mg 258 mls @ 8.504 mls/hr 10/14/23 18:15 10/18/23 17:20 / Sodium Chloride IV 0.03 mcg/kg/min .Q24H OH 8.504 mls/hr Titration Protocol 0.03 MCG/KG/MIN Sodium Bicarbonate 12.5 ml/ 512.5 mls @ 0 mls/hr 10/14/23 23:00 10/17/23 23:08 Dextrose/Water IV Not Given DIRECTED OH Protocol Per Protocol Meropenem 1 gm/ Sodium 100 mls @ 33.3 mls/hr 10/16/23 16:00 10/18/23 16:23 Chloride IVPB 33.3 mls/hr Q8HR OH Administration Protocol Vancomycin HCl 1,750 mg/ 500 mls @ 167 mls/hr 10/16/23 11:00 10/18/23 08:10 Sodium Chloride IVPB 167 mls/hr Q24HR OH Administration Propofol 1,000 mg/ IV Solution 100 mls @ 26.37 mls/hr 10/16/23 15:43 10/18/23 17:00 IV 20 mcg/kg/min .Q3H48M OH 17.58 mls/hr Administration Protocol 30 MCG/KG/MIN Fentanyl Citrate 1,000 mcg/ 100 mls @ 5.865 mls/hr 10/17/23 14:15 10/18/23 13:30 Sodium Chloride IV 1 mcg/kg/hr .Q17H4M OH 11.73 mls/hr Administration Protocol 0.5 MCG/KG/HR Insulin Aspart 0 unit 10/15/23 12:00 10/18/23 18:06 Insulin Aspart (Novolog) 100 Unit/Ml Vial SQ Not Given Q4HR [facility] Protocol Levothyroxine Sodium 100 mcg 09/28/23 09:15 10/18/23 05:05 Levothyroxine 100 Mcg Tab PO 100 mcg DAILY@0630 OH Administration Midodrine 10 mg 10/17/23 12:30 10/18/23 17:52 Midodrine 5 Mg Tab PO 10 mg AC-TID OH Administration Miscellaneous Information 1 each 10/02/23 12:48 Potassium Replacement Protocol 1 Each Misc MISCELLANE DAILY PRN Per Protocol Protocol Miscellaneous Information 1 each 10/16/23 04:41 Magnesium Replacement Protocol 1 Each Misc MISCELLANE DAILY PRN Per Protocol Protocol Naloxone HCl 0.2 mg 09/28/23 01:38 Naloxone 0.4 Mg/Ml 1 Ml Vial IV Q2M PRN Opioid Reversal Nitroglycerin 0.4 mg 10/14/23 22:23 Nitroglycerin Sl Tabs 0.4 Mg Tab SUBLINGUAL Q5M PRN Chest Pain Nystatin 500,000 unit 10/10/23 13:00 10/18/23 17:52 Nystatin 100,000 Unit/Ml Susp 500,000 Unit/5 Ml Cup PO 500,000 unit QID [facility] Administration Protocol Nystatin 1 applic 10/10/23 21:00 10/18/23 08:09 Nystatin 100,000 Unit/Gm Powd 15 Gm TOPICAL 1 applic BID [facility] Administration Protocol Pantoprazole Sodium 40 mg 10/15/23 21:00 10/18/23 08:07 Pantoprazole 40 Mg/10 Ml Vial IV 40 mg BID [facility] Administration Petrolatum 1 applic 10/01/23 13:59 Zinc Oxide Paste (Z-Guard) 1 Applic TOPICAL Q2HR PRN Wound Healing Protocol Ticagrelor 90 mg 10/15/23 09:00 10/18/23 08:07 Ticagrelor 90 Mg Tab PO 90 mg BID [facility] Administration Protocol Zolpidem Tartrate 5 mg 10/14/23 22:23 Zolpidem 5 Mg Tab PO HS PRN Insomnia Objective - Vital Signs Vital signs: Vital Signs Temp 98.6 F 10/18/23 19:00 Pulse 87 10/18/23 19:00 Resp 26 H 10/18/23 19:00 BP 98/52 10/18/23 15:43 Pulse Ox 95 10/18/23 19:00 FiO2 60 10/18/23 19:00 Intake & Output 10/18/23 10/18/23 10/19/23 06:59 18:59 06:59 Intake Total 8416.955 9520.968 Output Total 535 465 Balance 165.161 2119.968 Weight 119.5 kg 119.5 kg Intake: IV 172 1298 A-line 72 78 Invasive Line 8 20 Meropenem 1 gm In Sodium 100 200 Chloride 0.9% 100 ml @ 33 .3 mls/hr IVPB Q8HR [facility] Rx#:[id number] Sodium Chloride 0.9% 500 500 ml 500 ml @ 999 mls/hr IV .Q31M ONE Rx#:[id number] Vancomycin 1,750 mg In 500 Sodium Chloride 0.9% 500 ml 500 ml @ 167 mls/hr IVPB Q24HR [place] Rx#: [id number] Intake, IV Titration 924.508 717.968 Amount DOBUTamine DRIP 500 mg In 43.99 Dextrose/Water 1 250ml. bag @ 2.5 MCG/KG/MIN 8. 798 mls/hr IV .Q24H OH Rx#:[id number] Heparin Sod,Pork in 0.45% 182.539 135.659 NaCl 25,000 unit In 0.45 % NaCl 1 250ml.bag @ 6.83 UNITS/KG/HR 10.006 mls/ hr IV .Q24H [facility] Rx#: [id number] Norepinephrine 8 mg In 181.851 145.707 Sodium Chloride 0.9% 250 ml @ 0.03 MCG/KG/MIN 8. 504 mls/hr IV .Q24H [facility] Rx#:[id number] fentaNYL (PF). 1,000 mcg 160.118 99.218 In Sodium Chloride 0.9% 80 ml @ 0.5 MCG/KG/HR 5. 865 mls/hr IV .Q17H4M [facility] Rx#:[id number] propofoL 1,000 mg In 400 293.394 Empty Bag 1 bag @ 30 MCG/ KG/MIN 26.37 mls/hr IV . Q3H48M [facility] Rx#:[id number] Oral 0 Blood Product 310 Rc As-1 Unit 310 [id number] Other 30 60 Output: Urine 535 465 Other: Voiding Method Indwelling Catheter Indwelling Catheter # Bowel Movements 0 ABP, PAP, CO, CI - Last Documented Arterial Blood Pressure 98/52 - Exam GENERAL: The patient is sedated and intubated HEENT: Pupils are round and equally reacting to light. EOMI. No scleral icterus. No conjunctival pallor. Normocephalic, atraumatic. No pharyngeal erythema. No thyromegaly. CARDIOVASCULAR: S1 and S2 present. No murmurs, rubs, or gallops. PULMONARY: Chest is clear to auscultation, no wheezing , no crackles. ABDOMEN: Soft, nontender, nondistended, normoactive bowel sounds. No palpable organomegaly. MUSCULOSKELETAL: No joint swelling or deformity. EXTREMITIES: No cyanosis, clubbing, or pedal edema. NEUROLOGICAL: Gross neurological examination did not reveal any focal deficits. SKIN: No rashes. no petechiae. - Labs CBC & Chem 7: 10/18/23 16:00 10/18/23 04:15 Labs: Abnormal Lab Results - Last 24 Hours (Table) 10/16/23 10/17/23 10/17/23 Range/Units 17:40 19:53 23:00 WBC (3.8-10.6) k/uL RBC (4.30-5.90) m/uL Hgb (13.0-17.5) gm/dL Hct (39.0-53.0) % Plt Count (150-450) k/uL Neutrophils # (1.3-7.7) k/uL Monocytes # (0-1.0) k/uL APTT 46.7 H (22.0-30.0) sec Fibrinogen 550 H (200-500) mg/dL ABG pH (7.35-7.45) ABG pCO2 (35-45) mmHg ABG pO2 (83-108) mmHg ABG HCO3 (21-25) mmol/L ABG Total CO2 (19-24) mmol/L ABG O2 Saturation (94-97) % Sodium (137-145) mmol/L Carbon Dioxide (22-30) mmol/L BUN (9-20) mg/dL Creatinine (0.66-1.25) mg/dL Glucose (74-99) mg/dL POC Glucose (mg/dL) 174 H (70-110) mg/dL Calcium (8.4-10.2) mg/dL AST (17-59) U/L ALT (4-49) U/L Lactate Dehydrogenase (120-246) U/L Total Protein (6.3-8.2) g/dL Albumin (3.5-5.0) g/dL Crossmatch See Detail 10/17/23 10/17/23 10/18/23 Range/Units 23:00 23:44 04:15 WBC (3.8-10.6) k/uL RBC (4.30-5.90) m/uL Hgb (13.0-17.5) gm/dL Hct (39.0-53.0) % Plt Count (150-450) k/uL Neutrophils # (1.3-7.7) k/uL Monocytes # (0-1.0) k/uL APTT (22.0-30.0) sec Fibrinogen (200-500) mg/dL ABG pH (7.35-7.45) ABG pCO2 (35-45) mmHg ABG pO2 (83-108) mmHg ABG HCO3 (21-25) mmol/L ABG Total CO2 (19-24) mmol/L ABG O2 Saturation (94-97) % Sodium 132 L (137-145) mmol/L Carbon Dioxide 33 H (22-30) mmol/L BUN 57 H (9-20) mg/dL Creatinine 2.18 H (0.66-1.25) mg/dL Glucose 139 H (74-99) mg/dL POC Glucose (mg/dL) 180 H (70-110) mg/dL Calcium 7.0 L (8.4-10.2) mg/dL AST 257 H (17-59) U/L ALT 225 H (4-49) U/L Lactate Dehydrogenase 1401 H (120-246) U/L Total Protein 4.9 L (6.3-8.2) g/dL Albumin 2.1 L (3.5-5.0) g/dL Crossmatch 10/18/23 10/18/23 10/18/23 Range/Units 04:15 04:17 06:03 WBC 26.3 H (3.8-10.6) k/uL RBC 2.31 L (4.30-5.90) m/uL Hgb 7.3 L (13.0-17.5) gm/dL Hct 22.1 L (39.0-53.0) % Plt Count 117 L (150-450) k/uL Neutrophils # 21.0 H (1.3-7.7) k/uL Monocytes # 1.5 H (0-1.0) k/uL APTT (22.0-30.0) sec Fibrinogen (200-500) mg/dL ABG pH 7.33 L (7.35-7.45) ABG pCO2 54 H (35-45) mmHg ABG pO2 (83-108) mmHg ABG HCO3 29 H (21-25) mmol/L ABG Total CO2 30 H (19-24) mmol/L ABG O2 Saturation (94-97) % Sodium (137-145) mmol/L Carbon Dioxide (22-30) mmol/L BUN (9-20) mg/dL Creatinine (0.66-1.25) mg/dL Glucose (74-99) mg/dL POC Glucose (mg/dL) 156 H (70-110) mg/dL Calcium (8.4-10.2) mg/dL AST (17-59) U/L ALT (4-49) U/L Lactate Dehydrogenase (120-246) U/L Total Protein (6.3-8.2) g/dL Albumin (3.5-5.0) g/dL Crossmatch 10/18/23 10/18/23 10/18/23 Range/Units 06:54 06:54 08:30 WBC (3.8-10.6) k/uL RBC (4.30-5.90) m/uL Hgb (13.0-17.5) gm/dL Hct (39.0-53.0) % Plt Count (150-450) k/uL Neutrophils # (1.3-7.7) k/uL Monocytes # (0-1.0) k/uL APTT (22.0-30.0) sec Fibrinogen 535 H (200-500) mg/dL ABG pH (7.35-7.45) ABG pCO2 (35-45) mmHg ABG pO2 (83-108) mmHg ABG HCO3 (21-25) mmol/L ABG Total CO2 (19-24) mmol/L ABG O2 Saturation (94-97) % Sodium (137-145) mmol/L Carbon Dioxide (22-30) mmol/L BUN (9-20) mg/dL Creatinine (0.66-1.25) mg/dL Glucose (74-99) mg/dL POC Glucose (mg/dL) 166 H (70-110) mg/dL Calcium (8.4-10.2) mg/dL AST (17-59) U/L ALT (4-49) U/L Lactate Dehydrogenase 1388 H (120-246) U/L Total Protein (6.3-8.2) g/dL Albumin (3.5-5.0) g/dL Crossmatch 10/18/23 10/18/23 10/18/23 Range/Units 10:37 11:45 16:00 WBC 22.2 H (3.8-10.6) k/uL RBC 1.98 L (4.30-5.90) m/uL Hgb 6.3 L* (13.0-17.5) gm/dL Hct 19.0 L* (39.0-53.0) % Plt Count 106 L (150-450) k/uL Neutrophils # (1.3-7.7) k/uL Monocytes # (0-1.0) k/uL APTT (22.0-30.0) sec Fibrinogen 541 H (200-500) mg/dL ABG pH (7.35-7.45) ABG pCO2 (35-45) mmHg ABG pO2 (83-108) mmHg ABG HCO3 (21-25) mmol/L ABG Total CO2 (19-24) mmol/L ABG O2 Saturation (94-97) % Sodium (137-145) mmol/L Carbon Dioxide (22-30) mmol/L BUN (9-20) mg/dL Creatinine (0.66-1.25) mg/dL Glucose (74-99) mg/dL POC Glucose (mg/dL) 142 H (70-110) mg/dL Calcium (8.4-10.2) mg/dL AST (17-59) U/L ALT (4-49) U/L Lactate Dehydrogenase (120-246) U/L Total Protein (6.3-8.2) g/dL Albumin (3.5-5.0) g/dL Crossmatch 10/18/23 10/18/23 10/18/23 Range/Units 16:00 16:00 16:08 WBC 20.0 H (3.8-10.6) k/uL RBC 2.48 L (4.30-5.90) m/uL Hgb 7.7 L (13.0-17.5) gm/dL Hct 23.1 L (39.0-53.0) % Plt Count 98 L (150-450) k/uL Neutrophils # (1.3-7.7) k/uL Monocytes # (0-1.0) k/uL APTT (22.0-30.0) sec Fibrinogen (200-500) mg/dL ABG pH (7.35-7.45) ABG pCO2 (35-45) mmHg ABG pO2 (83-108) mmHg ABG HCO3 27 H (21-25) mmol/L ABG Total CO2 28 H (19-24) mmol/L ABG O2 Saturation 97.6 H (94-97) % Sodium (137-145) mmol/L Carbon Dioxide (22-30) mmol/L BUN (9-20) mg/dL Creatinine (0.66-1.25) mg/dL Glucose (74-99) mg/dL POC Glucose (mg/dL) (70-110) mg/dL Calcium (8.4-10.2) mg/dL AST (17-59) U/L ALT (4-49) U/L Lactate Dehydrogenase 1162 H (120-246) U/L Total Protein (6.3-8.2) g/dL Albumin (3.5-5.0) g/dL Crossmatch 10/18/23 10/18/23 Range/Units 16:18 18:05 WBC (3.8-10.6) k/uL RBC (4.30-5.90) m/uL Hgb (13.0-17.5) gm/dL Hct (39.0-53.0) % Plt Count (150-450) k/uL Neutrophils # (1.3-7.7) k/uL Monocytes # (0-1.0) k/uL APTT (22.0-30.0) sec Fibrinogen (200-500) mg/dL ABG pH (7.35-7.45) ABG pCO2 48 H (35-45) mmHg ABG pO2 32 L* (83-108) mmHg ABG HCO3 28 H (21-25) mmol/L ABG Total CO2 30 H (19-24) mmol/L ABG O2 Saturation 62.7 L (94-97) % Sodium (137-145) mmol/L Carbon Dioxide (22-30) mmol/L BUN (9-20) mg/dL Creatinine (0.66-1.25) mg/dL Glucose (74-99) mg/dL POC Glucose (mg/dL) 144 H (70-110) mg/dL Calcium (8.4-10.2) mg/dL AST (17-59) U/L ALT (4-49) U/L Lactate Dehydrogenase (120-246) U/L Total Protein (6.3-8.2) g/dL Albumin (3.5-5.0) g/dL Crossmatch Microbiology - Last 24 Hours (Table) 10/15/23 14:20 Gram Stain - Final Sputum Sputum Culture - Final 10/15/23 13:18 Blood Culture - Preliminary Blood Assessment and Plan Assessment: Emergent cardiac cath and 5 stents placement Cardiogenic shock and possible septic shock secondary to above Acute hypoxic respiratory failure requiring intubation and mechanical ventilation acute GI Bleed requring blood transufion Acute kidney injury Hyponatremia secondary to poor oral intake, COVID-19 Acute hypoxic respiratory failure secondary to COVID-19, now requiring oxygen via nasal cannula. Altered mental status, with toxic metabolic encephalopathy likely secondary to hypoxia as patient continues to remove oxygen mask from his face Generalized weakness Rhabdomyolysis. Improved Fall Urinary retention requiring indwelling Rosales catheter Hypothyroidism Hypertension Obesity with a BMI of 35.0 acute STEMI s/p Plan: Patient is continued on mechanical ventilation Continue with aspirin and Brilinta heparin drip is discontinued Cardiology consult following closely Pulmonary/critical care team following closely Patient s/p Impella with cardiology team Antibiotics were adjusted into meropenem and IV vancomycin by ID team Continue with insulin coverage Summer consult is on the case including ID team, pulmonary and nephrology Labs and medication were reviewed.. Continue same treatment. Continue with symptomatic treatment. Resume home medication. Monitor labs and vitals. DVT and GI prophylaxis. Further recommendations as per clinical course of the patient DVT prophylaxis: Subcutaneous Lovenox GI Prophylaxis: Pepcid PT/OT: heather prognosis is guarded family consider more palliative management
[2023-10-18 19:59] LABS: Glucose,Whole Blood 149 mg/dL (70-110)
[2023-10-18] MEDS: HEPARIN SODIUM,PORCINE 5,000 UNIT/ML 1 ML VIAL SQ SCH (20:48)
[2023-10-18 23:31] LABS: HCT 22.5 % (39.0-53.0); HGB 7.7 gm/dL (13.0-17.5); MCH 31.6 pg (25.0-35.0); MCHC 34.5 g/dL (31.0-37.0); MCV 91.8 fL (80.0-100.0); Mean Platelet Volume 9.9; Poikilocytosis Slight; RBC 2.45 m/uL (4.30-5.90); WBC 20.9 k/uL (3.8-10.6)
[2023-10-18 23:33] LABS: Platelet Count 86 k/uL (150-450)
[2023-10-18 23:54] LABS: Glucose,Whole Blood 132 mg/dL (70-110)
[2023-10-19 04:11] LABS: Glucose,Whole Blood 118 mg/dL (70-110)
[2023-10-19 04:26] LABS: Basophils # (A) 0.1 k/uL (0-0.2); Basophils % (A) 1 %; Eosinophils # (A) 0.1 k/uL (0-0.7); Eosinophils % (A) 1 %; HCT 21.3 % (39.0-53.0); HGB 7.5 gm/dL (13.0-17.5); Lymphocytes # (A) 1.7 k/uL (1.0-4.8); Lymphocytes % (A) 10 %; MCH 32.2 pg (25.0-35.0); MCHC 35.1 g/dL (31.0-37.0); MCV 91.9 fL (80.0-100.0); Mean Platelet Volume 10.1; Monocytes % (A) 6 %; Neutrophils # (A) 14.4 k/uL (1.3-7.7); Neutrophils % (A) 81 %; Poikilocytosis Slight; RBC 2.32 m/uL (4.30-5.90); RDW 15.3 % (11.5-15.5); WBC 17.9 k/uL (3.8-10.6)
[2023-10-19 04:35] LABS: Platelet Count 86 k/uL (150-450)
[2023-10-19 04:36] LABS: ALT 153 U/L (4-49); AST 187 U/L (17-59); African American GFR (CKD) 29 (>60 ml/min/1.73 sqM); Albumin 1.8 g/dL (3.5-5.0); Alkaline Phosphatase 74 U/L (38-126); Anion Gap 3 mmol/L; Blood Urea Nitrogen 69 mg/dL (9-20); Calcium 6.7 mg/dL (8.4-10.2); Carbon Dioxide 26 mmol/L (22-30); Chloride 104 mmol/L (98-107); Glucose 105 mg/dL (74-99); Magnesium 2.1 mg/dL (1.6-2.3); Non-African American GFR(CKD) 25 (>60 ml/min/1.73 sqM); Phosphorus 5.7 mg/dL (2.5-4.5); Sodium 133 mmol/L (137-145); Total Protein 4.3 g/dL (6.3-8.2)
[2023-10-19 05:56] LABS: ABG Base Excess 1.5 mmol/L; ABG HCO3 26 mmol/L (21-25); ABG Oxygen Saturation 96.8 % (94-97); ABG PCO2 40 mmHg (35-45); ABG PH 7.42 (7.35-7.45); ABG PO2 82 mmHg (83-108); ABG TCO2 27 mmol/L (19-24); Allen Test Performed? Yes
--- NOTE | 2023-10-19 07:43 | XR ---
EXAMINATION TYPE: XR chest 1V portable DATE OF EXAM: 10/19/2023 COMPARISON: 10/18/2023 HISTORY: SOB, Follow Up FINDINGS: Indwelling tubes and catheters are unchanged. No change in bibasilar opacities. Stable appearance of the cardio-mediastinal structures at this time. Pleural effusion unchanged. IMPRESSION: 1. Stable portable chest. Clinical correlation and follow up until resolution is recommended.
[2023-10-19 08:24] LABS: Glucose,Whole Blood 130 mg/dL (70-110)
[2023-10-19 11:06] LABS: Glucose,Whole Blood 130 mg/dL (70-110)
[2023-10-19 11:32] LABS: HCT 21.5 % (39.0-53.0); HGB 7.3 gm/dL (13.0-17.5); MCH 31.4 pg (25.0-35.0); MCHC 33.9 g/dL (31.0-37.0); MCV 92.7 fL (80.0-100.0); Mean Platelet Volume 10.3; Poikilocytosis Slight; RBC 2.31 m/uL (4.30-5.90); RDW 15.7 % (11.5-15.5); WBC 19.7 k/uL (3.8-10.6)
--- NOTE | 2023-10-19 11:37 | CA ---
Transthoracic Echo Report Name: Ana Kaba Age: 77 Gender: M : 1945 Exam Date: 10/18/2023 17:30 Exam Location: [facility] Ht (in): 71 Wt (lb): 263 Ordering Physician: Erwin Toribio MD ([id number]) Attending/Referring Phys: Buyer Farhana Flores RDCS Procedure CPT: Indications: LVEF and Impella position Cardiac Hx: limited study Technical Quality: Technically difficult study Contrast 1: Total Dose (mL): Contrast 2: Total Dose (mL): MEASUREMENTS (Male / Female) Normal Values DOPPLER TR Peak Velocity 307.5 cm/s TR Peak Gradient 37.8 mmHg Right Ventricular Systolic Press 42.8 mmHg FINDINGS Left Ventricle Left ventricular ejection fraction is estimated at 20-25 %. Impella in LVOT position Right Ventricle Mild pulmonary hypertension. Right Atrium Right atrium not well visualized. Left Atrium Left atrium not well visualized. Mitral Valve Structurally normal mitral valve. No mitral stenosis, regurgitation or prolapse. Aortic Valve Aortic valve not well visualized. Tricuspid Valve Structurally normal tricuspid valve. Mild tricuspid regurgitation. Pulmonic Valve Pulmonic valve not well visualized. Pericardium No pericardial effusion. Aorta Aortic root and proximal ascending aorta not well visualized. CONCLUSIONS Severe LV systolic dysfunction Impella in LVOT position Previewed by: Dr. Aravind Dias MD (Electronically Signed) Final Date: 19 October 2023 11:36
[2023-10-19 11:38] LABS: Platelet Count 90 k/uL (150-450)
[2023-10-19 11:50] LABS: ABG Base Excess 1.1 mmol/L; ABG HCO3 26 mmol/L (21-25); ABG Oxygen Saturation 97.4 % (94-97); ABG PCO2 39 mmHg (35-45); ABG PH 7.43 (7.35-7.45); ABG PO2 95 mmHg (83-108); ABG TCO2 27 mmol/L (19-24); Allen Test Performed? Yes
[2023-10-19 11:58] LABS: ABG Base Excess 1.2 mmol/L; ABG HCO3 26 mmol/L (21-25); ABG Oxygen Saturation 87.3 % (94-97); ABG PCO2 41 mmHg (35-45); ABG PH 7.41 (7.35-7.45); ABG TCO2 27 mmol/L (19-24); Allen Test Performed? Yes
[2023-10-19 12:13] LABS: ABG PO2 52 mmHg (83-108)
--- NOTE | 2023-10-19 12:28 | P.PN ---
Subjective Patient is seen for follow-up for hyponatremia. Patient remains on the vent. FiO2 at 50%. Uop 30-50 mL an hour Patient remains on Impella support at 5 Serum creatinine increased to 2.4 from 2.1 yesterday. Objective - Vital Signs Vital signs: Vital Signs Temp 99.3 F 10/19/23 12:00 Pulse 88 10/19/23 12:00 Resp 26 H 10/19/23 12:00 BP 98/51 10/19/23 02:00 Pulse Ox 96 10/19/23 12:00 FiO2 50 10/19/23 12:00 Intake & Output 10/18/23 10/19/23 10/19/23 18:59 06:59 18:59 Intake Total 2444.618 486.009 776.256 Output Total 465 400 205 Balance 1979.618 86.009 571.256 Weight 119.5 kg 122 kg Intake: IV 1298 202 650 A-line 78 72 30 Invasive Line 8 20 30 20 Meropenem 1 gm In Sodium 200 100 100 Chloride 0.9% 100 ml @ 33 .3 mls/hr IVPB Q8HR [facility] Rx#:[id number] Sodium Chloride 0.9% 500 500 ml 500 ml @ 999 mls/hr IV .Q31M [facility] Rx#:[id number] Vancomycin 1,750 mg In 500 500 Sodium Chloride 0.9% 500 ml 500 ml @ 167 mls/hr IVPB Q24HR [facility] Rx#: [id number] Intake, IV Titration 776.618 254.009 126.256 Amount DOBUTamine DRIP 500 mg In 43.99 Dextrose/Water 1 250ml. bag @ 2.5 MCG/KG/MIN 8. 798 mls/hr IV .Q24H [facility] Rx#:[id number] Heparin Sod,Pork in 0.45% 135.659 NaCl 25,000 unit In 0.45 % NaCl 1 250ml.bag @ 6.83 UNITS/KG/HR 10.006 mls/ hr IV .Q24H [facility] Rx#: [id number] Norepinephrine 8 mg In 145.707 Sodium Chloride 0.9% 250 ml @ 0.03 MCG/KG/MIN 8. 504 mls/hr IV .Q24H [facility] Rx#:[id number] fentaNYL (PF). 1,000 mcg 157.868 41.35 25.610 In Sodium Chloride 0.9% 80 ml @ 0.5 MCG/KG/HR 5. 865 mls/hr IV .Q17H4M [facility] Rx#:[id number] propofoL 1,000 mg In 293.394 212.659 100.646 Empty Bag 1 bag @ 30 MCG/ KG/MIN 26.37 mls/hr IV . Q3H48M [facility] Rx#:[id number] Blood Product 310 Rc As-1 Unit 310 [id number] Other 60 30 Output: Urine 465 400 205 Other: Voiding Method Indwelling Catheter Indwelling Catheter Indwelling Catheter # Bowel Movements 0 1 0 ABP, PAP, CO, CI - Last Documented Arterial Blood Pressure 112/58 - Exam Patient is currently sedated and on the vent Examination of the heart S1 and S2 Examination of the lungs shows bilateral breath sounds are heard Abdomen is soft nontender Examination of lower extremity shows edema 2+ bilaterally upper and lower extremities [employer] exam cannot be performed - Labs CBC & Chem 7: 10/19/23 11:14 10/19/23 04:05 Labs: Abnormal Lab Results - Last 24 Hours (Table) 10/16/23 10/18/23 10/18/23 Range/Units 17:40 16:00 16:00 WBC (3.8-10.6) k/uL RBC (4.30-5.90) m/uL Hgb (13.0-17.5) gm/dL Hct (39.0-53.0) % RDW (11.5-15.5) % Plt Count (150-450) k/uL Neutrophils # (1.3-7.7) k/uL Fibrinogen 541 H (200-500) mg/dL ABG pCO2 (35-45) mmHg ABG pO2 (83-108) mmHg ABG HCO3 (21-25) mmol/L ABG Total CO2 (19-24) mmol/L ABG O2 Saturation (94-97) % Sodium (137-145) mmol/L BUN (9-20) mg/dL Creatinine (0.66-1.25) mg/dL Glucose (74-99) mg/dL POC Glucose (mg/dL) (70-110) mg/dL Calcium (8.4-10.2) mg/dL Phosphorus (2.5-4.5) mg/dL AST (17-59) U/L ALT (4-49) U/L Lactate Dehydrogenase 1162 H (120-246) U/L Total Protein (6.3-8.2) g/dL Albumin (3.5-5.0) g/dL Crossmatch See Detail 10/18/23 10/18/23 10/18/23 Range/Units 16:00 16:08 16:18 WBC 20.0 H (3.8-10.6) k/uL RBC 2.48 L (4.30-5.90) m/uL Hgb 7.7 L (13.0-17.5) gm/dL Hct 23.1 L (39.0-53.0) % RDW (11.5-15.5) % Plt Count 98 L (150-450) k/uL Neutrophils # (1.3-7.7) k/uL Fibrinogen (200-500) mg/dL ABG pCO2 48 H (35-45) mmHg ABG pO2 32 L* (83-108) mmHg ABG HCO3 27 H 28 H (21-25) mmol/L ABG Total CO2 28 H 30 H (19-24) mmol/L ABG O2 Saturation 97.6 H 62.7 L (94-97) % Sodium (137-145) mmol/L BUN (9-20) mg/dL Creatinine (0.66-1.25) mg/dL Glucose (74-99) mg/dL POC Glucose (mg/dL) (70-110) mg/dL Calcium (8.4-10.2) mg/dL Phosphorus (2.5-4.5) mg/dL AST (17-59) U/L ALT (4-49) U/L Lactate Dehydrogenase (120-246) U/L Total Protein (6.3-8.2) g/dL Albumin (3.5-5.0) g/dL Crossmatch 10/18/23 10/18/23 10/18/23 Range/Units 18:05 19:57 23:06 WBC 20.9 H (3.8-10.6) k/uL RBC 2.45 L (4.30-5.90) m/uL Hgb 7.7 L (13.0-17.5) gm/dL Hct 22.5 L (39.0-53.0) % RDW (11.5-15.5) % Plt Count 86 L (150-450) k/uL Neutrophils # (1.3-7.7) k/uL Fibrinogen (200-500) mg/dL ABG pCO2 (35-45) mmHg ABG pO2 (83-108) mmHg ABG HCO3 (21-25) mmol/L ABG Total CO2 (19-24) mmol/L ABG O2 Saturation (94-97) % Sodium (137-145) mmol/L BUN (9-20) mg/dL Creatinine (0.66-1.25) mg/dL Glucose (74-99) mg/dL POC Glucose (mg/dL) 144 H 149 H (70-110) mg/dL Calcium (8.4-10.2) mg/dL Phosphorus (2.5-4.5) mg/dL AST (17-59) U/L ALT (4-49) U/L Lactate Dehydrogenase (120-246) U/L Total Protein (6.3-8.2) g/dL Albumin (3.5-5.0) g/dL Crossmatch 10/18/23 10/18/23 10/18/23 Range/Units 23:06 23:06 23:50 WBC (3.8-10.6) k/uL RBC (4.30-5.90) m/uL Hgb (13.0-17.5) gm/dL Hct (39.0-53.0) % RDW (11.5-15.5) % Plt Count (150-450) k/uL Neutrophils # (1.3-7.7) k/uL Fibrinogen 531 H (200-500) mg/dL ABG pCO2 (35-45) mmHg ABG pO2 (83-108) mmHg ABG HCO3 (21-25) mmol/L ABG Total CO2 (19-24) mmol/L ABG O2 Saturation (94-97) % Sodium (137-145) mmol/L BUN (9-20) mg/dL Creatinine (0.66-1.25) mg/dL Glucose (74-99) mg/dL POC Glucose (mg/dL) 132 H (70-110) mg/dL Calcium (8.4-10.2) mg/dL Phosphorus (2.5-4.5) mg/dL AST (17-59) U/L ALT (4-49) U/L Lactate Dehydrogenase 1167 H (120-246) U/L Total Protein (6.3-8.2) g/dL Albumin (3.5-5.0) g/dL Crossmatch 10/19/23 10/19/23 10/19/23 Range/Units 04:05 04:05 04:09 WBC 17.9 H (3.8-10.6) k/uL RBC 2.32 L (4.30-5.90) m/uL Hgb 7.5 L (13.0-17.5) gm/dL Hct 21.3 L (39.0-53.0) % RDW (11.5-15.5) % Plt Count 86 L (150-450) k/uL Neutrophils # 14.4 H (1.3-7.7) k/uL Fibrinogen (200-500) mg/dL ABG pCO2 (35-45) mmHg ABG pO2 (83-108) mmHg ABG HCO3 (21-25) mmol/L ABG Total CO2 (19-24) mmol/L ABG O2 Saturation (94-97) % Sodium 133 L (137-145) mmol/L BUN 69 H (9-20) mg/dL Creatinine 2.41 H (0.66-1.25) mg/dL Glucose 105 H (74-99) mg/dL POC Glucose (mg/dL) 118 H (70-110) mg/dL Calcium 6.7 L (8.4-10.2) mg/dL Phosphorus 5.7 H (2.5-4.5) mg/dL AST 187 H (17-59) U/L ALT 153 H (4-49) U/L Lactate Dehydrogenase (120-246) U/L Total Protein 4.3 L (6.3-8.2) g/dL Albumin 1.8 L (3.5-5.0) g/dL Crossmatch 10/19/23 10/19/23 10/19/23 Range/Units 05:47 06:51 08:21 WBC (3.8-10.6) k/uL RBC (4.30-5.90) m/uL Hgb (13.0-17.5) gm/dL Hct (39.0-53.0) % RDW (11.5-15.5) % Plt Count (150-450) k/uL Neutrophils # (1.3-7.7) k/uL Fibrinogen (200-500) mg/dL ABG pCO2 (35-45) mmHg ABG pO2 82 L (83-108) mmHg ABG HCO3 26 H (21-25) mmol/L ABG Total CO2 27 H (19-24) mmol/L ABG O2 Saturation (94-97) % Sodium (137-145) mmol/L BUN (9-20) mg/dL Creatinine (0.66-1.25) mg/dL Glucose (74-99) mg/dL POC Glucose (mg/dL) 130 H (70-110) mg/dL Calcium (8.4-10.2) mg/dL Phosphorus (2.5-4.5) mg/dL AST (17-59) U/L ALT (4-49) U/L Lactate Dehydrogenase 1116 H (120-246) U/L Total Protein (6.3-8.2) g/dL Albumin (3.5-5.0) g/dL Crossmatch 10/19/23 10/19/23 10/19/23 Range/Units 11:05 11:14 11:47 WBC 19.7 H (3.8-10.6) k/uL RBC 2.31 L (4.30-5.90) m/uL Hgb 7.3 L (13.0-17.5) gm/dL Hct 21.5 L (39.0-53.0) % RDW 15.7 H (11.5-15.5) % Plt Count 90 L (150-450) k/uL Neutrophils # (1.3-7.7) k/uL Fibrinogen (200-500) mg/dL ABG pCO2 (35-45) mmHg ABG pO2 (83-108) mmHg ABG HCO3 26 H (21-25) mmol/L ABG Total CO2 27 H (19-24) mmol/L ABG O2 Saturation 97.4 H (94-97) % Sodium (137-145) mmol/L BUN (9-20) mg/dL Creatinine (0.66-1.25) mg/dL Glucose (74-99) mg/dL POC Glucose (mg/dL) 130 H (70-110) mg/dL Calcium (8.4-10.2) mg/dL Phosphorus (2.5-4.5) mg/dL AST (17-59) U/L ALT (4-49) U/L Lactate Dehydrogenase (120-246) U/L Total Protein (6.3-8.2) g/dL Albumin (3.5-5.0) g/dL Crossmatch 10/19/23 Range/Units 11:55 WBC (3.8-10.6) k/uL RBC (4.30-5.90) m/uL Hgb (13.0-17.5) gm/dL Hct (39.0-53.0) % RDW (11.5-15.5) % Plt Count (150-450) k/uL Neutrophils # (1.3-7.7) k/uL Fibrinogen (200-500) mg/dL ABG pCO2 (35-45) mmHg ABG pO2 52 L* (83-108) mmHg ABG HCO3 26 H (21-25) mmol/L ABG Total CO2 27 H (19-24) mmol/L ABG O2 Saturation 87.3 L (94-97) % Sodium (137-145) mmol/L BUN (9-20) mg/dL Creatinine (0.66-1.25) mg/dL Glucose (74-99) mg/dL POC Glucose (mg/dL) (70-110) mg/dL Calcium (8.4-10.2) mg/dL Phosphorus (2.5-4.5) mg/dL AST (17-59) U/L ALT (4-49) U/L Lactate Dehydrogenase (120-246) U/L Total Protein (6.3-8.2) g/dL Albumin (3.5-5.0) g/dL Crossmatch Microbiology - Last 24 Hours (Table) 10/15/23 13:18 Blood Culture - Preliminary Blood 10/15/23 14:20 Gram Stain - Final Sputum Sputum Culture - Final Assessment and Plan Assessment: 1. Hyponatremia. Hypervolemic. Status post diuresis after initial admission. Sodium is currently stable at 132-133 2. Acute kidney injury, initially secondary to urine retention however currently in ATN. Nonoliguric secondary to hypotension and cardiac arrest. No proteinuria on UA. No hydronephrosis noted on kidney ultrasound. 3. Urinary retention status post Rosales catheter placement. On Flomax. 4. Benign hypertension. Controlled. 5. Hypokalemia from poor intake and postobstructive diuresis. Magnesium norm al. 6. Rhabdomyolysis secondary to fall. 7. Status postcardiac arrest x [address] elevation [place] status post 5 coronary stents placement on 10/14/2023. 9. GI bleed 10. Cardiogenic shock 11. Volume overload Plan: Continue off of IV fluids. IV Lasix 1 Overall prognosis is guarded. Patient will not tolerate renal replacement therapy if renal function continues to worsen. Antiarrhythmic medications as per cardiology Repeat labs in a.m.
[2023-10-19] MEDS: FUROSEMIDE 10 MG/ML 4 ML VIAL IV SCH (12:35)
--- NOTE | 2023-10-19 12:40 | P.PN ---
Subjective Progress Note Date: 10/19/23 ACS This is a 77-year-old gentleman with history of hypertension and dyslipidemia and seizure disorder and thyroid disease and prior history of smoking. The patient was admitted to the hospital initially with a change in mental status after he fell in the bathroom at home. The patient lives with his grandson. We consulted to see the patient because of cardiac arrest with ventricular fibrillation/ventricular tachycardia where the patient subsequently received CPR according to the nurse taking care of him for about 12 hours and then he was intubated and he was brought to the intensive care unit. The history was taken from the chart because the patient was already intubated when he was seen in the intensive care unit. He was found on the floor by his family for several hours. He was weak. He attempted to get up but he could not. EMS was called and the patient was brought to the emergency department by ambulance. He underwent further investigation including CT scan of the brain which showed no acute abnormalities and EKG showed sinus mechanism with nonspecific ST and T wave abnormalities. Hemoglobin was within normal limits. Electrolytes were within normal limits beside hyponatremia. The chest x-ray showed no acute abnormalities beside elevated right hemidiaphragm. He was diagnosed with acute hypoxic respiratory failure and also he had recent coronavirus infection. During his hospital stay he had a cardiac arrest with V-fib. He was converted to normal sinus mechanism after he received CPR and received amiodarone and lidocaine. I did review the EKG when I I was called to see the patient and that showed lateral ST segment elevation myocardial infarction. STEMI code was called. The patient was brought to the cardiac Clinical Cytopathologist immediately and he underwent an emergent heart catheterization and that revealed severe disease involving the ostial and proximal right coronary artery with occluded left circumflex appeared to be an acute occlusion. The lesion in the left circumflex was extremely complex and was very hard to cross. During the procedure he had another episode of cardiac arrest with pulseless electrical activities and we lost the floor in the left coronary system. The patient ended having stenting in the left main to LAD and stenting of the obtuse marginal branch and stenting of the right coronary artery and Impella CP was placed to support the pressure. Please refer to the procedure note for further details. The examination showed distant heart sounds with regular rhythm and soft nontender abdomen and diminished breathing sounds bilaterally. No edema was noted in the lower extremities October 15, 2023 The patient was seen and evaluated this morning. He continues to be intubated on mechanical ventilation. The chest x-ray was reviewed. He is off vasopressors but continues to be on norepinephrine which is in process to weaned from norepinephrine. He continues to be on heparin and Aggrastat. He is on dual antiplatelet therapy along with a statin. Hemodynamically he is overall slightly better. He has been maintaining normal sinus mechanism. From the cardiovascular standpoint of view I will continue the current medical regimen and switch the patient to oral amiodarone and DC lidocaine and stop Aggrastat at 18 hours. Apparently he cannot be on any beta-yazmin or FLORIN inhibitor at this point giving the low blood pressure. The examination is remarkable for regular rhythm with a distant heart sounds and diminished breathing sounds bilaterally and he does have a good Doppler signal in the left foot. October 16, 2023 The patient was seen and evaluated this morning. He continues to be on norepinephrine only at the small dose. His hemoglobin dropped to around 7 with ongoing to give the patient 1 unit of packed RBC hopefully we can wean him from norepinephrine and also hopefully it will improve the section of the arm on the Impella. Neurologically he is slightly better after the sedation was weaned. He continues to be on dual antiplatelet therapy. He continues to be on amiodarone. He continues to be on statin. Urine output has been marginal. I had a long discussion with the family in details about the condition and about the prognosis overall and they are in full understanding the poor prognosis overall. The examination is remarkable for regular rhythm with a distant heart sounds and diminished breathing sounds bilaterally and bilateral lower extremities edema noted. We had to stop the heparin because of gastrointestinal bleeding. The last episode of gastrointestinal bleeding was earlier this morn ing. 10/17/2023 Patient seen and examined at bedside this a.m. He is on norepinephrine 0.02. He is on Impella with P7 with 3 L output. MAP around 65 to 70 mmHg. Patient does not have any Boston catheter in place. Bedside echocardiogram showed an EF of 10 to 15% with normally positioned Impella. IVC is not dilated Inputs and outputs: Around 500 cc of urine last 24 hours with total of 700 cc positive fluid balance. Labs: Hb 8.2, creatinine 1.75, BUN 53, sodium 132. 10/18/2023 Patient was seen and examined at bedside this a.m. Yesterday by evening Impella was reduced to P4 and norepinephrine to 0.04. Overnight patient had low blood pressure. We attempted to wean off norepinephrine and start him on dobutamine which patient could not tolerate. Eventually dobutamine was discontinued and patient was put back on norepinephrine. Patient has been requiring P7 Impella with 3 L output. At present 4 PM 10/18/2023, patient is off norepinephrine, P7 Impella 3 L output. Janee cardiac index 1.9 L/min/m, Janee cardiac output 4.9 L/min, stroke-volume 50 ml. Patient's hemoglobin dropped from 8 to 7-6.3 today. Patient also had black watery stools. He required 1 unit of blood transfusion. His IV heparin was discontinued which was started for Impella. 10/19/23 Seen and examined at bedside this a.m. Today patient has been doing well. We have been able to wean him down to P5 and he is not requiring any norepinephrine. Patient has a good pulse pressure with SBP 120, diastolic blood pressure 50s. Patient's urine output has been 25 to 30 cc/h. He appears mildly volume overloaded. Will give him 1 dose of IV Lasix 40 mg. His renal function has been slightly declining with creatinine trending up Today arterial sat 95%, mixed venous sat 51.7%, hemoglobin 7.4, heart rate 86. Cardiac output 6.3 L/min, cardiac index 2.5 L/min/m. Cardiac index is improved from yesterday with lesser power requirement on Impella and no requirement of IV pressors. Echocardiogram shows an EF of 15 to 20% with well-placed Impella. This is slightly improved from 10 to 15% from presentation. Assessment Cardiogenic Shock, impella dependant and pressor dependant Ischemic cardiomyopathy with EF 10-15% Acute anemia GI bleeding STEMI Acute total occlusion of the left circumflex proximally Severe disease involving the right coronary artery Cardiac arrest as described above Multiple risk factors including hypertension and dyslipidemia History of seizure Plan Continue aspirin, Plavix, statin Continue amiodarone orally Give the patient 1 unit of packed RBC if Hb <7 Give 1 dose of IV Lasix 40 mg before Impella removal. Plan to remove Impella today. Titrate Impella down to P3. Use low-dose norepinephrine if needed. Discontinue IV heparin in view of low hemoglobin and GI bleeding. Patient is not a candidate for EGD and colonoscopy at present due to hemodynamic instability. Unable to receive sedation holiday as patient gets significantly tachypneic and has stacking of breaths on ventilator support. He is on 20 mics of propofol. Unable to assess brainstem functions due to this. Will consult neurology to assess brainstem function and anoxic brain injury. Considering patient's anemia, active GI bleeding, failure to wean off Impella support, cardiogenic shock, lack of response to dobutamine, inability to start IV heparin in setting of Impella, ventilator dependent respiratory failure with 50% FiO2 and 12% PEEP, patient's overall prognosis is very poor. I have had a family discussion and have explained the patient's current condition. Patient's family will take a decision about CODE STATUS and comfort measures in next 24 hours. Will continue full care until then. I have discussed the possible option of [facility] ECMO but he is a poor candidate for it as he is not able to tolerate any anticoagulation because of anemia and active GI bleeding. Objective - Vital Signs Vital signs: Vital Signs Temp 99.3 F 10/19/23 12:00 Pulse 88 10/19/23 12:00 Resp 26 H 10/19/23 12:00 BP 98/51 10/19/23 02:00 Pulse Ox 96 10/19/23 12:00 FiO2 50 10/19/23 12:00 Intake & Output 10/18/23 10/19/23 10/19/23 18:59 06:59 18:59 Intake Total 2444.618 486.009 776.256 Output Total 465 400 205 Balance 1979.618 86.009 571.256 Weight 119.5 kg 122 kg Intake: IV 1298 202 650 A-line 78 72 30 Invasive Line 8 20 30 20 Meropenem 1 gm In Sodium 200 100 100 Chloride 0.9% 100 ml @ 33 .3 mls/hr IVPB Q8HR [place] Rx#:[id number] Sodium Chloride 0.9% 500 500 ml 500 ml @ 999 mls/hr IV .Q31M [facility] Rx#:[id number] Vancomycin 1,750 mg In 500 500 Sodium Chloride 0.9% 500 ml 500 ml @ 167 mls/hr IVPB Q24HR [facility] Rx#: [id number] Intake, IV Titration 776.618 254.009 126.256 Amount DOBUTamine DRIP 500 mg In 43.99 Dextrose/Water 1 250ml. bag @ 2.5 MCG/KG/MIN 8. 798 mls/hr IV .Q24H [place] Rx#:[id number] Heparin Sod,Pork in 0.45% 135.659 NaCl 25,000 unit In 0.45 % NaCl 1 250ml.bag @ 6.83 UNITS/KG/HR 10.006 mls/ hr IV .Q24H [facility] Rx#: [id number] Norepinephrine 8 mg In 145.707 Sodium Chloride 0.9% 250 ml @ 0.03 MCG/KG/MIN 8. 504 mls/hr IV .Q24H [facility] Rx#:[id number] fentaNYL (PF). 1,000 mcg 157.868 41.35 25.610 In Sodium Chloride 0.9% 80 ml @ 0.5 MCG/KG/HR 5. 865 mls/hr IV .Q17H4M [place] Rx#:[id number] propofoL 1,000 mg In 293.394 212.659 100.646 Empty Bag 1 bag @ 30 MCG/ KG/MIN 26.37 mls/hr IV . Q3H48M [place] Rx#:[id number] Blood Product 310 Rc As-1 Unit 310 [id number] Other 60 30 Output: Urine 465 400 205 Other: Voiding Method Indwelling Catheter Indwelling Catheter Indwelling Catheter # Bowel Movements 0 1 0 ABP, PAP, CO, CI - Last Documented Arterial Blood Pressure 112/58 - Labs CBC & Chem 7: 10/19/23 11:14 10/19/23 04:05 Labs: Abnormal Lab Results - Last 24 Hours (Table) 10/16/23 10/18/23 10/18/23 Range/Units 17:40 16:00 16:00 WBC (3.8-10.6) k/uL RBC (4.30-5.90) m/uL Hgb (13.0-17.5) gm/dL Hct (39.0-53.0) % RDW (11.5-15.5) % Plt Count (150-450) k/uL Neutrophils # (1.3-7.7) k/uL Fibrinogen 541 H (200-500) mg/dL ABG pCO2 (35-45) mmHg ABG pO2 (83-108) mmHg ABG HCO3 (21-25) mmol/L ABG Total CO2 (19-24) mmol/L ABG O2 Saturation (94-97) % Sodium (137-145) mmol/L BUN (9-20) mg/dL Creatinine (0.66-1.25) mg/dL Glucose (74-99) mg/dL POC Glucose (mg/dL) (70-110) mg/dL Calcium (8.4-10.2) mg/dL Phosphorus (2.5-4.5) mg/dL AST (17-59) U/L ALT (4-49) U/L Lactate Dehydrogenase 1162 H (120-246) U/L Total Protein (6.3-8.2) g/dL Albumin (3.5-5.0) g/dL Crossmatch See Detail 10/18/23 10/18/23 10/18/23 Range/Units 16:00 16:08 16:18 WBC 20.0 H (3.8-10.6) k/uL RBC 2.48 L (4.30-5.90) m/uL Hgb 7.7 L (13.0-17.5) gm/dL Hct 23.1 L (39.0-53.0) % RDW (11.5-15.5) % Plt Count 98 L (150-450) k/uL Neutrophils # (1.3-7.7) k/uL Fibrinogen (200-500) mg/dL ABG pCO2 48 H (35-45) mmHg ABG pO2 32 L* (83-108) mmHg ABG HCO3 27 H 28 H (21-25) mmol/L ABG Total CO2 28 H 30 H (19-24) mmol/L ABG O2 Saturation 97.6 H 62.7 L (94-97) % Sodium (137-145) mmol/L BUN (9-20) mg/dL Creatinine (0.66-1.25) mg/dL Glucose (74-99) mg/dL POC Glucose (mg/dL) (70-110) mg/dL Calcium (8.4-10.2) mg/dL Phosphorus (2.5-4.5) mg/dL AST (17-59) U/L ALT (4-49) U/L Lactate Dehydrogenase (120-246) U/L Total Protein (6.3-8.2) g/dL Albumin (3.5-5.0) g/dL Crossmatch 10/18/23 10/18/23 10/18/23 Range/Units 18:05 19:57 23:06 WBC 20.9 H (3.8-10.6) k/uL RBC 2.45 L (4.30-5.90) m/uL Hgb 7.7 L (13.0-17.5) gm/dL Hct 22.5 L (39.0-53.0) % RDW (11.5-15.5) % Plt Count 86 L (150-450) k/uL Neutrophils # (1.3-7.7) k/uL Fibrinogen (200-500) mg/dL ABG pCO2 (35-45) mmHg ABG pO2 (83-108) mmHg ABG HCO3 (21-25) mmol/L ABG Total CO2 (19-24) mmol/L ABG O2 Saturation (94-97) % Sodium (137-145) mmol/L BUN (9-20) mg/dL Creatinine (0.66-1.25) mg/dL Glucose (74-99) mg/dL POC Glucose (mg/dL) 144 H 149 H (70-110) mg/dL Calcium (8.4-10.2) mg/dL Phosphorus (2.5-4.5) mg/dL AST (17-59) U/L ALT (4-49) U/L Lactate Dehydrogenase (120-246) U/L Total Protein (6.3-8.2) g/dL Albumin (3.5-5.0) g/dL Crossmatch 10/18/23 10/18/23 10/18/23 Range/Units 23:06 23:06 23:50 WBC (3.8-10.6) k/uL RBC (4.30-5.90) m/uL Hgb (13.0-17.5) gm/dL Hct (39.0-53.0) % RDW (11.5-15.5) % Plt Count (150-450) k/uL Neutrophils # (1.3-7.7) k/uL Fibrinogen 531 H (200-500) mg/dL ABG pCO2 (35-45) mmHg ABG pO2 (83-108) mmHg ABG HCO3 (21-25) mmol/L ABG Total CO2 (19-24) mmol/L ABG O2 Saturation (94-97) % Sodium (137-145) mmol/L BUN (9-20) mg/dL Creatinine (0.66-1.25) mg/dL Glucose (74-99) mg/dL POC Glucose (mg/dL) 132 H (70-110) mg/dL Calcium (8.4-10.2) mg/dL Phosphorus (2.5-4.5) mg/dL AST (17-59) U/L ALT (4-49) U/L Lactate Dehydrogenase 1167 H (120-246) U/L Total Protein (6.3-8.2) g/dL Albumin (3.5-5.0) g/dL Crossmatch 10/19/23 10/19/23 10/19/23 Range/Units 04:05 04:05 04:09 WBC 17.9 H (3.8-10.6) k/uL RBC 2.32 L (4.30-5.90) m/uL Hgb 7.5 L (13.0-17.5) gm/dL Hct 21.3 L (39.0-53.0) % RDW (11.5-15.5) % Plt Count 86 L (150-450) k/uL Neutrophils # 14.4 H (1.3-7.7) k/uL Fibrinogen (200-500) mg/dL ABG pCO2 (35-45) mmHg ABG pO2 (83-108) mmHg ABG HCO3 (21-25) mmol/L ABG Total CO2 (19-24) mmol/L ABG O2 Saturation (94-97) % Sodium 133 L (137-145) mmol/L BUN 69 H (9-20) mg/dL Creatinine 2.41 H (0.66-1.25) mg/dL Glucose 105 H (74-99) mg/dL POC Glucose (mg/dL) 118 H (70-110) mg/dL Calcium 6.7 L (8.4-10.2) mg/dL Phosphorus 5.7 H (2.5-4.5) mg/dL AST 187 H (17-59) U/L ALT 153 H (4-49) U/L Lactate Dehydrogenase (120-246) U/L Total Protein 4.3 L (6.3-8.2) g/dL Albumin 1.8 L (3.5-5.0) g/dL Crossmatch 10/19/23 10/19/23 10/19/23 Range/Units 05:47 06:51 08:21 WBC (3.8-10.6) k/uL RBC (4.30-5.90) m/uL Hgb (13.0-17.5) gm/dL Hct (39.0-53.0) % RDW (11.5-15.5) % Plt Count (150-450) k/uL Neutrophils # (1.3-7.7) k/uL Fibrinogen (200-500) mg/dL ABG pCO2 (35-45) mmHg ABG pO2 82 L (83-108) mmHg ABG HCO3 26 H (21-25) mmol/L ABG Total CO2 27 H (19-24) mmol/L ABG O2 Saturation (94-97) % Sodium (137-145) mmol/L BUN (9-20) mg/dL Creatinine (0.66-1.25) mg/dL Glucose (74-99) mg/dL POC Glucose (mg/dL) 130 H (70-110) mg/dL Calcium (8.4-10.2) mg/dL Phosphorus (2.5-4.5) mg/dL AST (17-59) U/L ALT (4-49) U/L Lactate Dehydrogenase 1116 H (120-246) U/L Total Protein (6.3-8.2) g/dL Albumin (3.5-5.0) g/dL Crossmatch 10/19/23 10/19/23 10/19/23 Range/Units 11:05 11:14 11:47 WBC 19.7 H (3.8-10.6) k/uL RBC 2.31 L (4.30-5.90) m/uL Hgb 7.3 L (13.0-17.5) gm/dL Hct 21.5 L (39.0-53.0) % RDW 15.7 H (11.5-15.5) % Plt Count 90 L (150-450) k/uL Neutrophils # (1.3-7.7) k/uL Fibrinogen (200-500) mg/dL ABG pCO2 (35-45) mmHg ABG pO2 (83-108) mmHg ABG HCO3 26 H (21-25) mmol/L ABG Total CO2 27 H (19-24) mmol/L ABG O2 Saturation 97.4 H (94-97) % Sodium (137-145) mmol/L BUN (9-20) mg/dL Creatinine (0.66-1.25) mg/dL Glucose (74-99) mg/dL POC Glucose (mg/dL) 130 H (70-110) mg/dL Calcium (8.4-10.2) mg/dL Phosphorus (2.5-4.5) mg/dL AST (17-59) U/L ALT (4-49) U/L Lactate Dehydrogenase (120-246) U/L Total Protein (6.3-8.2) g/dL Albumin (3.5-5.0) g/dL Crossmatch 10/19/23 Range/Units 11:55 WBC (3.8-10.6) k/uL RBC (4.30-5.90) m/uL Hgb (13.0-17.5) gm/dL Hct (39.0-53.0) % RDW (11.5-15.5) % Plt Count (150-450) k/uL Neutrophils # (1.3-7.7) k/uL Fibrinogen (200-500) mg/dL ABG pCO2 (35-45) mmHg ABG pO2 52 L* (83-108) mmHg ABG HCO3 26 H (21-25) mmol/L ABG Total CO2 27 H (19-24) mmol/L ABG O2 Saturation 87.3 L (94-97) % Sodium (137-145) mmol/L BUN (9-20) mg/dL Creatinine (0.66-1.25) mg/dL Glucose (74-99) mg/dL POC Glucose (mg/dL) (70-110) mg/dL Calcium (8.4-10.2) mg/dL Phosphorus (2.5-4.5) mg/dL AST (17-59) U/L ALT (4-49) U/L Lactate Dehydrogenase (120-246) U/L Total Protein (6.3-8.2) g/dL Albumin (3.5-5.0) g/dL Crossmatch - Last 24 Hours (Table) 10/15/23 13:18 Blood Culture - Preliminary Blood 10/15/23 14:20 Gram Stain - Final Sputum Sputum Culture - Final
[2023-10-19] MEDS: NOREPINEPHRINE 4 MG in SODIUM CHLORIDE 0.9% 250 ML IV SCH (12:55)
--- NOTE | 2023-10-19 13:07 | P.PN ---
Subjective Progress Note Date: 10/19/23 Principal diagnosis: Cardiac arrest and cardiogenic shock This is a 77-year-old male patient with a history of hypertension, seizure disorder, thyroid disorder, former smoker. On September 27, 2023 the patient had gotten up to go the bathroom and slumped onto the ground. He had been reportedly laying on the ground for several hours by family were attempting to get in helping him get up but he was unable to support himself. He also had trouble with urinary incontinence. EMS was called and he was brought here for evaluation. CT scan of the brain revealed no acute intracranial hemorrhage, midline shift or mass effect. EKG revealed sinus rhythm with no significant ST or T wave abnormalities. White count 14.9. Hemoglobin 12.9. Platelets 146. Sodium 126. Potassium 3.9. Bicarb 26. BUN 15. Creatinine 0.68. Glucose 152. AST 148. ALT 43. Creatinine kinase 2283. He did test positive for COVID-19 infection. His initial sodium level was 118. BUN of 24 and a creatinine of 1.26. He had been seen by nephrology, urology and infectious disease. A chest x-ray was done today September 30, 2023 that revealed an elevated right hemidiaphragm and we are consulted for the same. He was sent for a sniff test however the patient was unable to perform the appropriate maneuvers due to overall condition. He is seen on consultation on the selective care unit. He is currently resting in bed. Difficult to arouse but arousable. He is on a nonrebreather mask with O2 saturation of 90%. Currently afebrile. Hemodynamically stable. He has been initiated on Decadron. Antibiotics in the form of cefepime. Saline at 50 MLS per hour. Patient was evaluated today on 10/01/2023, more awake today, more responsive, seems to be more alert, and remains on a nonrebreather mask which I have recommended to transition to high flow nasal cannula. Patient did transition to 10 L high flow nasal cannula and O2 saturation was ranging between 92 up to 96% definitely better today compared to the last couple of days. Still planning to repeat his sniff test to evaluate for right hemidiaphragm paralysis. Procalcitonin level came back elevated at 0.43, patient remains on antibiotics for presumptive right lower lobe pneumonia. WBC count today 13.9 hemoglobin 13.0.Basic metabolic profile is relatively normal. Reevaluated today on 10/02/2023, patient is on 10 L high flow nasal cannula, doing better, breathing easier, O2 saturation is in the low 90s, patient continues to have diminished breath sounds at the right base, and I believe the patient has right hemidiaphragm paralysis with right lower lobe atelectasis, possible underlying pneumonia, but I feel clinically this is not the picture. At any rate the patient is supposed to have a sniff test tomorrow, may even have to consider a CT of the chest to evaluate the right lower lobe further. Based on the sniff test, further recommendations will follow. In the meantime patient is gradually improving, feeling better, breathing easier and definitely his neurological status is significantly improved now compared to how he was few days ago WBC count is 10.2 hemoglobin is 12.3, sodium is up to 130, potassium 3.1 renal profile is normal procalcitonin level on this patient was 0.43, hence he was empirically placed on antibiotics for presumptive right lower lobe pneumonia 10/16/2023, the patient remains critically ill intubated on the mechanical ventilator in the intensive care unit. He is postcardiac arrest and post emergent cardiac catheterization and a total of 5 stents were inserted and the patient was also given an Impella for hemodynamic support which is currently at p 7 augmentation with a flow of 3.2 L/min. The patient remains essentially unresponsive. He was given a brief sedation holiday yesterday to assess mentation. Immediately, the patient became restless, asynchronous with mechanical ventilator, and tachycardic and based on his underlying instability, propofol was restarted and which is currently running at 50 mcg/kg/min. He remains on assist-control mode of mechanical ventilation at the rate of 26, tidal volume of 450, FiO2 is at 60% with a PEEP of 15. Chest x-ray shows no major interval change. Blood gas from this morning shows a pH of 7.46 with a pCO2 of 44 and pO2 of 129. Hemodynamically, he remains unstable and hypotensive. Significant support still being provided to the Impella. Unable to tolerate lower levels of augmentation due to significant hypotension. While on P7, the patient is maintaining a mean arterial pressure of 70 and the patient is also on norepinephrine running at 0.02 mcg/kg/min. Cardiac rhythm is sinus tachycardia. No further episodes of ventricular arrhythmias. The patient was taken off the amiodarone and is also off the lidocaine drip. Urine output has dropped considerably and the patient also has developed an acute kidney injury. Creatinine is up to 1.9 with a BUN of 43. He is spiking temperature and his Tmax is 103.1. He remains on the same antibiotic coverage and he is currently on IV cefepime. Another complication is development of an upper GI bleed. Since yesterday afternoon, the patient had dark bloody output from his NG tube and a total amount has been in the order of 400 cc since yesterday. Based on his underlying GI bleed, IV heparin was discontinued. He remains on aspirin and Brilinta. He is off the Aggrastat for now. The hemoglobin has dropped down to 8.7. He remains in normal sinus rate of 75 cc an hour. Norepinephrine is running at 0.02 mcg/kg/min. IV heparin is discontinued. Rest of the blood work shows a WBC count of 37.6, hemoglobin 7.7 and a platelet count of 198. The serum bicarb is at 23 with a sodium level of 129. Blood sugar is at 188. Troponin peaked at 282. CPK was at 01/19/2023. He remains NPO. An echocardiogram was done yesterday and the patient was found to have significant impairment of the LV function with an ejection fraction of around 20%. Contacted the family, unable to get a hold of any family members. The family was supposed to arrive into the hospital to my understanding. Nevertheless, nobody showed up and we have placed multiple phone calls without getting any answers back. He is postcardiac arrest. Please refer to details of the cardiac intervention that was done as stated earlier. Patient was reevaluated today on 10/17/2023, remains in the ICU, intubated and mechanically ventilated. Patient is on assist-control rate of 26 tidal volume 450 FiO2 60% PEEP of 15 EGD showed a pO2 of 92 pCO2 43 pH of 7.48. No changes were made in his present ventilator settings. Patient continues to have Impella in place, it is at P7 augmentation, nonetheless, patient remains marginal at best. Ejection fraction is 20%. Patient is on propofol at 50 mcg/kg/min, he is also on IV fluid at 75 cc/h. Remains on Merrem and vancomycin, patient does not seem to be fully sedated, seems to be asynchronous with the ventilator today, hence I recommended increasing propofol up to 75 mcg/kg/min, and do Dilaudid as needed WBC count is 25.6 hemoglobin is 8.2. Fibrinogen is 521Basic metabolic profile is normal BUN is 53 creatinine 1.57. Chest x-ray showed patchy perihilar infiltrates, not much different from the chest x-ray prior. Looking back at the note, patient had his cardiac arrest on 10/14/2023, he was taken to the cardiac cath, underwent PTCA and stenting done. And he required intermittently pressor support/norepinephrine. Empirically the patient is on Merrem and vancomycin, patient has allergy to penicillin. Patient is being followed by infectious disease patient is off heparin. He is not requiring norepinephrine today, blood pressure is rather marginal. Output today is 3.3. CODE STATUS was changed to DNR CODE STATUS. The overall prognostic picture seems to be extremely poor Reevaluate 10/18/2023, patient remains in the ICU, intubated and mechanically ventilated. Patient is on assist-control rate of 26 tidal volume 450 which I increased up to 500, FiO2 60% PEEP of 15 ABG showed a pO2 of 90 pCO2 54 pH of 7.33 plan is to cut down the FiO2 to 50% and eventually address the PEEP. Patient continues to have the Impella in place, and it is at P7 augmentation. Patient continues to do poorly, he is requiring significant amount of drips including norepinephrine at 0.08 mcg/kg/min, Dobutrex at 2.5 mcg/kg/min, he is also on propofol 70 mcg/kg/min Fentanyl at 1 mcg/kg/h. Patient is spiking fever with Tmax of 102.5, continues to have leukocytosis with WBC count of 26.3. He has very poor and marginal urine output, patient remains on Flagyl vancomycin and Merrem. Yesterday I had a long discussion and updated family on his condition, and still not considering comfort care measures. Although the prognosis is extremely poor, and this was discussed with cardiology today. Patient dropped his hemoglobin today down to 6.3, patient will require blood transfusion, WBC count is 22.2. Platelets are 106 renal functioning is worsening BUN is 57 creatinine now is up to 2.18, and this is most likely acute tubular necrosis related to hypotension and cardiorenal in nature. Chest x-ray noted to have small area of focal infiltrate in the right midlung zone, endotracheal tube was noted to be high in the trachea and this was advanced down by 2 cm Patient was reevaluated today on 10/19/2023, remains in the ICU, intubated and mechanically ventilated, patient remains on assist-control rate of 26 tidal volume 500, FiO2 50%, and PEEP of 15, basically about the same, he is still very marginal at best, BG is marginal showed a pO2 of 52 pCO2 41 pH of 7.41, hence no changes made in the ventilator settings. Remains at P6 augmentation on his Impella. This is DNR at this point, but family is not willing to go to comfort care at this point yet. Still on norepinephrine at 0.06 mcg/kg/min still on Dobutrex at 5 mcg/kg/min, his off epinephrine, vasopressin at 0.04, he is on propofol and remains on fentanyl. Pressure today is slightly better, chest x- ray is basically the same, no major change, continues to have right hemidiaphragm elevation, and infiltrate in the right upper lobe area antibiotics are the same including Flagyl vancomycin and Merrem. BC count remains high 19.7 hemoglobin is 7.3. Continues to have intermittent episodes of GI bleeding remains on hold. Electrolytes are normal however his renal profile is worsening with a BUN of 69 creatinine 2.41. Overall I do not believe there is a significant improvement in this man's condition, I believe overall he is basically the same, and prognosis remains extremely poor and guarded for Objective - Vital Signs Vital signs: Vital Signs Temp 99.3 F 10/19/23 12:00 Pulse 85 10/19/23 12:47 Resp 26 H 10/19/23 12:00 BP 98/51 10/19/23 02:00 Pulse Ox 96 10/19/23 12:00 FiO2 50 10/19/23 12:38 Intake & Output 10/18/23 10/19/23 10/19/23 18:59 06:59 18:59 Intake Total 2444.618 486.009 779.040 Output Total 465 400 205 Balance 1979.618 86.009 574.040 Weight 119.5 kg 122 kg Intake: IV 1298 202 650 A-line 78 72 30 Invasive Line 8 20 30 20 Meropenem 1 gm In Sodium 200 100 100 Chloride 0.9% 100 ml @ 33 .3 mls/hr IVPB Q8HR [place] Rx#:[id number] Sodium Chloride 0.9% 500 500 ml 500 ml @ 999 mls/hr IV .Q31M [facility] Rx#:[id number] Vancomycin 1,750 mg In 500 500 Sodium Chloride 0.9% 500 ml 500 ml @ 167 mls/hr IVPB Q24HR [facility] Rx#: [id number] Intake, IV Titration 776.618 254.009 129.040 Amount DOBUTamine DRIP 500 mg In 43.99 Dextrose/Water 1 250ml. bag @ 2.5 MCG/KG/MIN 8. 798 mls/hr IV .Q24H [facility] Rx#:[id number] Heparin Sod,Pork in 0.45% 135.659 NaCl 25,000 unit In 0.45 % NaCl 1 250ml.bag @ 6.83 UNITS/KG/HR 10.006 mls/ hr IV .Q24H [facility] Rx#: [id number] Norepinephrine 4 mg In 0 Sodium Chloride 0.9% 250 ml @ 0.03 MCG/KG/MIN 13. 945 mls/hr IV .[id number] [facility] Rx#:[id number] Norepinephrine 8 mg In 145.707 Sodium Chloride 0.9% 250 ml @ 0.03 MCG/KG/MIN 8. 504 mls/hr IV .Q24H [facility] Rx#:[id number] fentaNYL (PF). 1,000 mcg 157.868 41.35 25.610 In Sodium Chloride 0.9% 80 ml @ 0.5 MCG/KG/HR 5. 865 mls/hr IV .Q17H4M [facility] Rx#:[id number] propofoL 1,000 mg In 293.394 212.659 103.430 Empty Bag 1 bag @ 30 MCG/ KG/MIN 26.37 mls/hr IV . Q3H48M [facility] Rx#:[id number] Blood Product 310 Rc As-1 Unit 310 [id number] Other 60 30 Output: Urine 465 400 205 Other: Voiding Method Indwelling Catheter Indwelling Catheter Indwelling Catheter # Bowel Movements 0 1 0 ABP, PAP, CO, CI - Last Documented Arterial Blood Pressure 112/58 - Exam General: Reveals 77-year-old white male obese, intubated mechanically ventilated, sedated. Not in distress on propofol, he is also on fentanyl Head: Atraumatic normocephalic. Skin: No rashes. Eye: Pupils are equal, round and reactive to light,; there is normal conjunctiva bilaterally. Ears, nose, mouth and throat: There are moist mucous membranes and no oral lesions. Tracheal tube is intact, orogastric tube is intact. Neck: The neck is supple, there is no tenderness or JVD. Cardiovascular: Send S1-S2, no S3 gallop, 2/6 systolic murmur throughout the precordium Respiratory: Distant breath sound bilaterally no crackles rhonchi or wheezes Gastrointestinal: Obese, soft, nontender, no megaly, no rebound, no guarding. Musculoskeletal: No deformities noted, extremities showed no clubbing, 3+ bipedal edema, no cyanosis Neurological: Cannot assess, fully sedated Psychiatric: Not assess - Labs CBC & Chem 7: 10/19/23 11:14 10/19/23 04:05 Labs: Abnormal Lab Results - Last 24 Hours (Table) 10/16/23 10/18/23 10/18/23 Range/Units 17:40 16:00 16:00 WBC (3.8-10.6) k/uL RBC (4.30-5.90) m/uL Hgb (13.0-17.5) gm/dL Hct (39.0-53.0) % RDW (11.5-15.5) % Plt Count (150-450) k/uL Neutrophils # (1.3-7.7) k/uL Fibrinogen 541 H (200-500) mg/dL ABG pCO2 (35-45) mmHg ABG pO2 (83-108) mmHg ABG HCO3 (21-25) mmol/L ABG Total CO2 (19-24) mmol/L ABG O2 Saturation (94-97) % Sodium (137-145) mmol/L BUN (9-20) mg/dL Creatinine (0.66-1.25) mg/dL Glucose (74-99) mg/dL POC Glucose (mg/dL) (70-110) mg/dL Calcium (8.4-10.2) mg/dL Phosphorus (2.5-4.5) mg/dL AST (17-59) U/L ALT (4-49) U/L Lactate Dehydrogenase 1162 H (120-246) U/L Total Protein (6.3-8.2) g/dL Albumin (3.5-5.0) g/dL Crossmatch See Detail 10/18/23 10/18/23 10/18/23 Range/Units 16:00 16:08 16:18 WBC 20.0 H (3.8-10.6) k/uL RBC 2.48 L (4.30-5.90) m/uL Hgb 7.7 L (13.0-17.5) gm/dL Hct 23.1 L (39.0-53.0) % RDW (11.5-15.5) % Plt Count 98 L (150-450) k/uL Neutrophils # (1.3-7.7) k/uL Fibrinogen (200-500) mg/dL ABG pCO2 48 H (35-45) mmHg ABG pO2 32 L* (83-108) mmHg ABG HCO3 27 H 28 H (21-25) mmol/L ABG Total CO2 28 H 30 H (19-24) mmol/L ABG O2 Saturation 97.6 H 62.7 L (94-97) % Sodium (137-145) mmol/L BUN (9-20) mg/dL Creatinine (0.66-1.25) mg/dL Glucose (74-99) mg/dL POC Glucose (mg/dL) (70-110) mg/dL Calcium (8.4-10.2) mg/dL Phosphorus (2.5-4.5) mg/dL AST (17-59) U/L ALT (4-49) U/L Lactate Dehydrogenase (120-246) U/L Total Protein (6.3-8.2) g/dL Albumin (3.5-5.0) g/dL Crossmatch 10/18/23 10/18/23 10/18/23 Range/Units 18:05 19:57 23:06 WBC 20.9 H (3.8-10.6) k/uL RBC 2.45 L (4.30-5.90) m/uL Hgb 7.7 L (13.0-17.5) gm/dL Hct 22.5 L (39.0-53.0) % RDW (11.5-15.5) % Plt Count 86 L (150-450) k/uL Neutrophils # (1.3-7.7) k/uL Fibrinogen (200-500) mg/dL ABG pCO2 (35-45) mmHg ABG pO2 (83-108) mmHg ABG HCO3 (21-25) mmol/L ABG Total CO2 (19-24) mmol/L ABG O2 Saturation (94-97) % Sodium (137-145) mmol/L BUN (9-20) mg/dL Creatinine (0.66-1.25) mg/dL Glucose (74-99) mg/dL POC Glucose (mg/dL) 144 H 149 H (70-110) mg/dL Calcium (8.4-10.2) mg/dL Phosphorus (2.5-4.5) mg/dL AST (17-59) U/L ALT (4-49) U/L Lactate Dehydrogenase (120-246) U/L Total Protein (6.3-8.2) g/dL Albumin (3.5-5.0) g/dL Crossmatch 10/18/23 10/18/23 10/18/23 Range/Units 23:06 23:06 23:50 WBC (3.8-10.6) k/uL RBC (4.30-5.90) m/uL Hgb (13.0-17.5) gm/dL Hct (39.0-53.0) % RDW (11.5-15.5) % Plt Count (150-450) k/uL Neutrophils # (1.3-7.7) k/uL Fibrinogen 531 H (200-500) mg/dL ABG pCO2 (35-45) mmHg ABG pO2 (83-108) mmHg ABG HCO3 (21-25) mmol/L ABG Total CO2 (19-24) mmol/L ABG O2 Saturation (94-97) % Sodium (137-145) mmol/L BUN (9-20) mg/dL Creatinine (0.66-1.25) mg/dL Glucose (74-99) mg/dL POC Glucose (mg/dL) 132 H (70-110) mg/dL Calcium (8.4-10.2) mg/dL Phosphorus (2.5-4.5) mg/dL AST (17-59) U/L ALT (4-49) U/L Lactate Dehydrogenase 1167 H (120-246) U/L Total Protein (6.3-8.2) g/dL Albumin (3.5-5.0) g/dL Crossmatch 10/19/23 10/19/23 10/19/23 Range/Units 04:05 04:05 04:09 WBC 17.9 H (3.8-10.6) k/uL RBC 2.32 L (4.30-5.90) m/uL Hgb 7.5 L (13.0-17.5) gm/dL Hct 21.3 L (39.0-53.0) % RDW (11.5-15.5) % Plt Count 86 L (150-450) k/uL Neutrophils # 14.4 H (1.3-7.7) k/uL Fibrinogen (200-500) mg/dL ABG pCO2 (35-45) mmHg ABG pO2 (83-108) mmHg ABG HCO3 (21-25) mmol/L ABG Total CO2 (19-24) mmol/L ABG O2 Saturation (94-97) % Sodium 133 L (137-145) mmol/L BUN 69 H (9-20) mg/dL Creatinine 2.41 H (0.66-1.25) mg/dL Glucose 105 H (74-99) mg/dL POC Glucose (mg/dL) 118 H (70-110) mg/dL Calcium 6.7 L (8.4-10.2) mg/dL Phosphorus 5.7 H (2.5-4.5) mg/dL AST 187 H (17-59) U/L ALT 153 H (4-49) U/L Lactate Dehydrogenase (120-246) U/L Total Protein 4.3 L (6.3-8.2) g/dL Albumin 1.8 L (3.5-5.0) g/dL Crossmatch 10/19/23 10/19/23 10/19/23 Range/Units 05:47 06:51 08:21 WBC (3.8-10.6) k/uL RBC (4.30-5.90) m/uL Hgb (13.0-17.5) gm/dL Hct (39.0-53.0) % RDW (11.5-15.5) % Plt Count (150-450) k/uL Neutrophils # (1.3-7.7) k/uL Fibrinogen (200-500) mg/dL ABG pCO2 (35-45) mmHg ABG pO2 82 L (83-108) mmHg ABG HCO3 26 H (21-25) mmol/L ABG Total CO2 27 H (19-24) mmol/L ABG O2 Saturation (94-97) % Sodium (137-145) mmol/L BUN (9-20) mg/dL Creatinine (0.66-1.25) mg/dL Glucose (74-99) mg/dL POC Glucose (mg/dL) 130 H (70-110) mg/dL Calcium (8.4-10.2) mg/dL Phosphorus (2.5-4.5) mg/dL AST (17-59) U/L ALT (4-49) U/L Lactate Dehydrogenase 1116 H (120-246) U/L Total Protein (6.3-8.2) g/dL Albumin (3.5-5.0) g/dL Crossmatch 10/19/23 10/19/23 10/19/23 Range/Units 11:05 11:14 11:47 WBC 19.7 H (3.8-10.6) k/uL RBC 2.31 L (4.30-5.90) m/uL Hgb 7.3 L (13.0-17.5) gm/dL Hct 21.5 L (39.0-53.0) % RDW 15.7 H (11.5-15.5) % Plt Count 90 L (150-450) k/uL Neutrophils # (1.3-7.7) k/uL Fibrinogen (200-500) mg/dL ABG pCO2 (35-45) mmHg ABG pO2 (83-108) mmHg ABG HCO3 26 H (21-25) mmol/L ABG Total CO2 27 H (19-24) mmol/L ABG O2 Saturation 97.4 H (94-97) % Sodium (137-145) mmol/L BUN (9-20) mg/dL Creatinine (0.66-1.25) mg/dL Glucose (74-99) mg/dL POC Glucose (mg/dL) 130 H (70-110) mg/dL Calcium (8.4-10.2) mg/dL Phosphorus (2.5-4.5) mg/dL AST (17-59) U/L ALT (4-49) U/L Lactate Dehydrogenase (120-246) U/L Total Protein (6.3-8.2) g/dL Albumin (3.5-5.0) g/dL Crossmatch 10/19/23 Range/Units 11:55 WBC (3.8-10.6) k/uL RBC (4.30-5.90) m/uL Hgb (13.0-17.5) gm/dL Hct (39.0-53.0) % RDW (11.5-15.5) % Plt Count (150-450) k/uL Neutrophils # (1.3-7.7) k/uL Fibrinogen (200-500) mg/dL ABG pCO2 (35-45) mmHg ABG pO2 52 L* (83-108) mmHg ABG HCO3 26 H (21-25) mmol/L ABG Total CO2 27 H (19-24) mmol/L ABG O2 Saturation 87.3 L (94-97) % Sodium (137-145) mmol/L BUN (9-20) mg/dL Creatinine (0.66-1.25) mg/dL Glucose (74-99) mg/dL POC Glucose (mg/dL) (70-110) mg/dL Calcium (8.4-10.2) mg/dL Phosphorus (2.5-4.5) mg/dL AST (17-59) U/L ALT (4-49) U/L Lactate Dehydrogenase (120-246) U/L Total Protein (6.3-8.2) g/dL Albumin (3.5-5.0) g/dL Crossmatch Microbiology - Last 24 Hours (Table) 10/15/23 13:18 Blood Culture - Preliminary Blood 10/15/23 14:20 Gram Stain - Final Sputum Sputum Culture - Final Assessment and Plan Assessment: Impression: Cardiac arrest with ventricular tachycardia and ventricular fibrillation, status post cardiac catheterization for acute lateral ST segment elevation myocardial infarction and the patient underwent emergent cardiac catheterization. The patient underwent a complicated coronary intervention requiring Impella for hemodynamic support, stenting of the left main, circumflex, proximal and mid RCA. A total of 5 stents were inserted. Currently, receiving Impella for hemodynamic support and norepinephrine, dobutamine, and the patient continues to have an Impella device in place which may have to be discontinued today Acute hypoxic respiratory failure secondary to cardiac arrest Ventricular tachycardia/VF, postacute KS Upper GI bleeding related to various antiplatelet agents and anticoagulation patient is now off heparin he is on aspirin and Plavix Acute blood loss anemia requiring transfusion Acute kidney injury, could be cardiorenal in nature. There are cardiomyopathy and LV dysfunction. Acute febrile illness, exact etiology is not clear patient is empirically on antibiotics chest x-ray is showing a limited infiltrate in the right midlung. Acute hypoxic metabolic encephalopathy History of COVID-19 pneumonia, recovering Right hemidiaphragm elevation possible paralysis History of seizure disorder History of hypothyroidism History of hypertension Ex-smoker Severe LV dysfunction with ejection fraction of 20% Recommendation: Continue ventilatory support Continue hemodynamic support continue dobutamine and continue norepinephrine and titrate accordingly in the meantime continue Impella device for now. Continue norepinephrine, titrate accordingly and dobutamine at 5 mcg/kg/min Continue nutritional support/enteral feeding Continue aspirin and Brilinta Continue antibiotics Continue to monitor and address renal profile on a daily basis, expecting that the renal profile will get worse. As the urine output is marginal and the blood pressure is marginal Lasix was ordered again to be given today Patient is not quite ready for any weaning today, Remains extremely ill, prognosis is extremely poor, and I am strongly recommending comfort care measures at this patient Patient is critically ill, he has multiple comorbidities, prognosis is extremely poor. Will continue to follow. Critical care time is over 30 minutes Time with Patient: Greater than 30
--- NOTE | 2023-10-19 14:09 | P.GSCN ---
History of Present Illness Consult date: 10/19/23 History of present illness: CHIEF COMPLAINT: Weakness Surgical consult for positive fecal occult blood, GI bleed HISTORY OF PRESENT ILLNESS: This is a 77-year-old male who presented with generalized weakness and falls. During his hospitalization patient had cardiac arrest requiring emergent heart catheterization with 5 cardiac stents placed. Patient currently in the ICU intubated on mechanical ventilation. 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 Patient had been on IV heparin. Yesterday he had a large maroon stool and then 3 more maroon stools through the night. IV heparin was discontinued yesterday. Subcu heparin is also been discontinued. He does remain on the Brilinta and aspirin. Hemoglobin did drop to 6.3 he did receive a unit of blood yesterday. Hemoglobin is currently 7.5. PAST MEDICAL HISTORY: Hypertension, seizure disorder, thyroid disorder PAST SURGICAL HISTORY: Hernia repair MEDICATIONS: See below ALLERGIES: See below SOCIAL HISTORY: No illicit drug use. REVIEW OF SYSTEMS: Unable to obtain. Patient intubated and sedated PHYSICAL EXAM: VITAL SIGNS: Reviewed GENERAL: no acute distress. ABDOMEN: Soft. Nondistended. NEUROLOGIC: Intubated and sedated LABORATORY DATA: WBC 19.7 Hgb 8.2-7.7-7.3 platelets 90 Sodium 133 potassium is 4.0 creatinine 2.41 Stool for occult blood positive IMAGING: ASSESSMENT: 1. Acute GI bleed with maroon stools 2. Acute blood loss anemia 3. Cardiac arrest status post heart catheterization with 5 stents PLAN: -Recommend endoscopy when medically stable -Continue supportive care -Continue ICU management -Continue to monitor for signs and symptoms of bleeding -Continue to monitor hemoglobin -Continue Protonix Physician Regional Retail Sales Manager note has been reviewed by physician. Signing provider agrees with the documented findings, assessment, and plan of care. Past Medical History Past Medical History: Hypertension, Seizure Disorder, Thyroid Disorder History of Any Multi-Drug Resistant Organisms: None Reported Past Surgical History: Hernia Repair Past Anesthesia/Blood Transfusion Reactions: No Reported Reaction Past Psychological History: No Psychological Hx Reported Smoking Status: Former smoker Past Alcohol Use History: None Reported Past Drug Use History: None Reported Medications and Allergies Home Medications Medication Instructions Recorded Confirmed Type Amitriptyline HCl [Elavil] 75 mg PO HS 09/28/23 09/28/23 History Baclofen [Lioresal] 10 mg PO HS 09/28/23 09/28/23 History Divalproex Sodium [Depakote] 1,000 mg PO HS 09/28/23 09/28/23 History Ergocalciferol [Vitamin D2 (1250 1,250 mcg PO Q14D 09/28/23 09/28/23 History Mcg = 43789 Iu)] Levothyroxine Sodium [Synthroid] 100 mcg PO DAILY 09/28/23 09/28/23 History Metoprolol Tartrate [Lopressor] 50 mg PO HS 09/28/23 09/28/23 History Metoprolol Tartrate [Lopressor] 100 mg PO DAILY 09/28/23 09/28/23 History Multivitamins, Thera [Multivitamin 1 tab PO DAILY 09/28/23 09/28/23 History (formulary)] Omeprazole 20 mg PO DAILY 09/28/23 09/28/23 History amLODIPine [Norvasc] 10 mg PO DAILY 09/28/23 09/28/23 History Albuterol Inhaler [Ventolin Hfa 2 puff INHALATION RT-QID each 10/14/23 Rx Inhaler] Furosemide [Lasix] 40 mg PO BID #60 tablet 10/14/23 Rx Tamsulosin [Flomax] 0.4 mg PO PC-[id number] cap 10/14/23 Rx hydrALAZINE HCL [Apresoline] 25 mg PO TID tab 10/14/23 Rx Allergies Allergy/AdvReac Type Severity Reaction Status Date / Time Penicillins AdvReac Rash/Hives Verified 09/28/23 06:59 Surgical - Exam Vital Signs Temp Pulse Resp BP Pulse Ox 97.6 F 76 22 116/50 93 L 09/27/23 22:12 09/27/23 22:12 09/27/23 22:12 09/27/23 22:12 09/27/23 22:12 Results - Labs 10/19/23 11:14 10/19/23 04:05 Abnormal Lab Results - Last 24 Hours (Table) 10/16/23 10/18/23 10/18/23 Range/Units 17:40 16:00 16:00 WBC (3.8-10.6) k/uL RBC (4.30-5.90) m/uL Hgb (13.0-17.5) gm/dL Hct (39.0-53.0) % RDW (11.5-15.5) % Plt Count (150-450) k/uL Neutrophils # (1.3-7.7) k/uL Fibrinogen 541 H (200-500) mg/dL ABG pCO2 (35-45) mmHg ABG pO2 (83-108) mmHg ABG HCO3 (21-25) mmol/L ABG Total CO2 (19-24) mmol/L ABG O2 Saturation (94-97) % Sodium (137-145) mmol/L BUN (9-20) mg/dL Creatinine (0.66-1.25) mg/dL Glucose (74-99) mg/dL POC Glucose (mg/dL) (70-110) mg/dL Calcium (8.4-10.2) mg/dL Phosphorus (2.5-4.5) mg/dL AST (17-59) U/L ALT (4-49) U/L Lactate Dehydrogenase 1162 H (120-246) U/L Total Protein (6.3-8.2) g/dL Albumin (3.5-5.0) g/dL Crossmatch See Detail 10/18/23 10/18/23 10/18/23 Range/Units 16:00 16:08 16:18 WBC 20.0 H (3.8-10.6) k/uL RBC 2.48 L (4.30-5.90) m/uL Hgb 7.7 L (13.0-17.5) gm/dL Hct 23.1 L (39.0-53.0) % RDW (11.5-15.5) % Plt Count 98 L (150-450) k/uL Neutrophils # (1.3-7.7) k/uL Fibrinogen (200-500) mg/dL ABG pCO2 48 H (35-45) mmHg ABG pO2 32 L* (83-108) mmHg ABG HCO3 27 H 28 H (21-25) mmol/L ABG Total CO2 28 H 30 H (19-24) mmol/L ABG O2 Saturation 97.6 H 62.7 L (94-97) % Sodium (137-145) mmol/L BUN (9-20) mg/dL Creatinine (0.66-1.25) mg/dL Glucose (74-99) mg/dL POC Glucose (mg/dL) (70-110) mg/dL Calcium (8.4-10.2) mg/dL Phosphorus (2.5-4.5) mg/dL AST (17-59) U/L ALT (4-49) U/L Lactate Dehydrogenase (120-246) U/L Total Protein (6.3-8.2) g/dL Albumin (3.5-5.0) g/dL Crossmatch 10/18/23 10/18/23 10/18/23 Range/Units 18:05 19:57 23:06 WBC 20.9 H (3.8-10.6) k/uL RBC 2.45 L (4.30-5.90) m/uL Hgb 7.7 L (13.0-17.5) gm/dL Hct 22.5 L (39.0-53.0) % RDW (11.5-15.5) % Plt Count 86 L (150-450) k/uL Neutrophils # (1.3-7.7) k/uL Fibrinogen (200-500) mg/dL ABG pCO2 (35-45) mmHg ABG pO2 (83-108) mmHg ABG HCO3 (21-25) mmol/L ABG Total CO2 (19-24) mmol/L ABG O2 Saturation (94-97) % Sodium (137-145) mmol/L BUN (9-20) mg/dL Creatinine (0.66-1.25) mg/dL Glucose (74-99) mg/dL POC Glucose (mg/dL) 144 H 149 H (70-110) mg/dL Calcium (8.4-10.2) mg/dL Phosphorus (2.5-4.5) mg/dL AST (17-59) U/L ALT (4-49) U/L Lactate Dehydrogenase (120-246) U/L Total Protein (6.3-8.2) g/dL Albumin (3.5-5.0) g/dL Crossmatch 10/18/23 10/18/23 10/18/23 Range/Units 23:06 23:06 23:50 WBC (3.8-10.6) k/uL RBC (4.30-5.90) m/uL Hgb (13.0-17.5) gm/dL Hct (39.0-53.0) % RDW (11.5-15.5) % Plt Count (150-450) k/uL Neutrophils # (1.3-7.7) k/uL Fibrinogen 531 H (200-500) mg/dL ABG pCO2 (35-45) mmHg ABG pO2 (83-108) mmHg ABG HCO3 (21-25) mmol/L ABG Total CO2 (19-24) mmol/L ABG O2 Saturation (94-97) % Sodium (137-145) mmol/L BUN (9-20) mg/dL Creatinine (0.66-1.25) mg/dL Glucose (74-99) mg/dL POC Glucose (mg/dL) 132 H (70-110) mg/dL Calcium (8.4-10.2) mg/dL Phosphorus (2.5-4.5) mg/dL AST (17-59) U/L ALT (4-49) U/L Lactate Dehydrogenase 1167 H (120-246) U/L Total Protein (6.3-8.2) g/dL Albumin (3.5-5.0) g/dL Crossmatch 10/19/23 10/19/23 10/19/23 Range/Units 04:05 04:05 04:09 WBC 17.9 H (3.8-10.6) k/uL RBC 2.32 L (4.30-5.90) m/uL Hgb 7.5 L (13.0-17.5) gm/dL Hct 21.3 L (39.0-53.0) % RDW (11.5-15.5) % Plt Count 86 L (150-450) k/uL Neutrophils # 14.4 H (1.3-7.7) k/uL Fibrinogen (200-500) mg/dL ABG pCO2 (35-45) mmHg ABG pO2 (83-108) mmHg ABG HCO3 (21-25) mmol/L ABG Total CO2 (19-24) mmol/L ABG O2 Saturation (94-97) % Sodium 133 L (137-145) mmol/L BUN 69 H (9-20) mg/dL Creatinine 2.41 H (0.66-1.25) mg/dL Glucose 105 H (74-99) mg/dL POC Glucose (mg/dL) 118 H (70-110) mg/dL Calcium 6.7 L (8.4-10.2) mg/dL Phosphorus 5.7 H (2.5-4.5) mg/dL AST 187 H (17-59) U/L ALT 153 H (4-49) U/L Lactate Dehydrogenase (120-246) U/L Total Protein 4.3 L (6.3-8.2) g/dL Albumin 1.8 L (3.5-5.0) g/dL Crossmatch 10/19/23 10/19/23 10/19/23 Range/Units 05:47 06:51 08:21 WBC (3.8-10.6) k/uL RBC (4.30-5.90) m/uL Hgb (13.0-17.5) gm/dL Hct (39.0-53.0) % RDW (11.5-15.5) % Plt Count (150-450) k/uL Neutrophils # (1.3-7.7) k/uL Fibrinogen (200-500) mg/dL ABG pCO2 (35-45) mmHg ABG pO2 82 L (83-108) mmHg ABG HCO3 26 H (21-25) mmol/L ABG Total CO2 27 H (19-24) mmol/L ABG O2 Saturation (94-97) % Sodium (137-145) mmol/L BUN (9-20) mg/dL Creatinine (0.66-1.25) mg/dL Glucose (74-99) mg/dL POC Glucose (mg/dL) 130 H (70-110) mg/dL Calcium (8.4-10.2) mg/dL Phosphorus (2.5-4.5) mg/dL AST (17-59) U/L ALT (4-49) U/L Lactate Dehydrogenase 1116 H (120-246) U/L Total Protein (6.3-8.2) g/dL Albumin (3.5-5.0) g/dL Crossmatch 10/19/23 10/19/23 10/19/23 Range/Units 11:05 11:14 11:47 WBC 19.7 H (3.8-10.6) k/uL RBC 2.31 L (4.30-5.90) m/uL Hgb 7.3 L (13.0-17.5) gm/dL Hct 21.5 L (39.0-53.0) % RDW 15.7 H (11.5-15.5) % Plt Count 90 L (150-450) k/uL Neutrophils # (1.3-7.7) k/uL Fibrinogen (200-500) mg/dL ABG pCO2 (35-45) mmHg ABG pO2 (83-108) mmHg ABG HCO3 26 H (21-25) mmol/L ABG Total CO2 27 H (19-24) mmol/L ABG O2 Saturation 97.4 H (94-97) % Sodium (137-145) mmol/L BUN (9-20) mg/dL Creatinine (0.66-1.25) mg/dL Glucose (74-99) mg/dL POC Glucose (mg/dL) 130 H (70-110) mg/dL Calcium (8.4-10.2) mg/dL Phosphorus (2.5-4.5) mg/dL AST (17-59) U/L ALT (4-49) U/L Lactate Dehydrogenase (120-246) U/L Total Protein (6.3-8.2) g/dL Albumin (3.5-5.0) g/dL Crossmatch 10/19/23 Range/Units 11:55 WBC (3.8-10.6) k/uL RBC (4.30-5.90) m/uL Hgb (13.0-17.5) gm/dL Hct (39.0-53.0) % RDW (11.5-15.5) % Plt Count (150-450) k/uL Neutrophils # (1.3-7.7) k/uL Fibrinogen (200-500) mg/dL ABG pCO2 (35-45) mmHg ABG pO2 52 L* (83-108) mmHg ABG HCO3 26 H (21-25) mmol/L ABG Total CO2 27 H (19-24) mmol/L ABG O2 Saturation 87.3 L (94-97) % Sodium (137-145) mmol/L BUN (9-20) mg/dL Creatinine (0.66-1.25) mg/dL Glucose (74-99) mg/dL POC Glucose (mg/dL) (70-110) mg/dL Calcium (8.4-10.2) mg/dL Phosphorus (2.5-4.5) mg/dL AST (17-59) U/L ALT (4-49) U/L Lactate Dehydrogenase (120-246) U/L Total Protein (6.3-8.2) g/dL Albumin (3.5-5.0) g/dL Crossmatch Microbiology - Last 24 Hours (Table) 10/15/23 13:18 Blood Culture - Preliminary Blood 10/15/23 14:20 Gram Stain - Final Sputum Sputum Culture - Final Diabetes panel 10/19/23 Range/Units 04:05 Sodium 133 L (137-145) mmol/L Potassium 4.0 (3.5-5.1) mmol/L Chloride 104 (98-107) mmol/L Carbon Dioxide 26 (22-30) mmol/L BUN 69 H (9-20) mg/dL Creatinine 2.41 H (0.66-1.25) mg/dL Glucose 105 H (74-99) mg/dL Calcium 6.7 L (8.4-10.2) mg/dL AST 187 H (17-59) U/L ALT 153 H (4-49) U/L Alkaline Phosphatase 74 (38-126) U/L Total Protein 4.3 L (6.3-8.2) g/dL Albumin 1.8 L (3.5-5.0) g/dL Calcium panel 10/19/23 Range/Units 04:05 Calcium 6.7 L (8.4-10.2) mg/dL Phosphorus 5.7 H (2.5-4.5) mg/dL Albumin 1.8 L (3.5-5.0) g/dL Pituitary panel 10/19/23 Range/Units 04:05 Sodium 133 L (137-145) mmol/L Potassium 4.0 (3.5-5.1) mmol/L Chloride 104 (98-107) mmol/L Carbon Dioxide 26 (22-30) mmol/L BUN 69 H (9-20) mg/dL Creatinine 2.41 H (0.66-1.25) mg/dL Glucose 105 H (74-99) mg/dL Calcium 6.7 L (8.4-10.2) mg/dL Adrenal panel 10/19/23 Range/Units 04:05 Sodium 133 L (137-145) mmol/L Potassium 4.0 (3.5-5.1) mmol/L Chloride 104 (98-107) mmol/L Carbon Dioxide 26 (22-30) mmol/L BUN 69 H (9-20) mg/dL Creatinine 2.41 H (0.66-1.25) mg/dL Glucose 105 H (74-99) mg/dL Calcium 6.7 L (8.4-10.2) mg/dL Total Bilirubin 1.0 (0.2-1.3) mg/dL AST 187 H (17-59) U/L ALT 153 H (4-49) U/L Alkaline Phosphatase 74 (38-126) U/L Total Protein 4.3 L (6.3-8.2) g/dL Albumin 1.8 L (3.5-5.0) g/dL
[2023-10-19 15:47] LABS: HCT 22.2 % (39.0-53.0); HGB 7.4 gm/dL (13.0-17.5); MCH 30.7 pg (25.0-35.0); MCHC 33.1 g/dL (31.0-37.0); MCV 92.8 fL (80.0-100.0); Mean Platelet Volume 10.4; Poikilocytosis Slight; RBC 2.39 m/uL (4.30-5.90); RDW 15.5 % (11.5-15.5); WBC 19.3 k/uL (3.8-10.6)
[2023-10-19 15:51] LABS: Glucose,Whole Blood 127 mg/dL (70-110)
[2023-10-19 15:59] LABS: INR 0.9 (<1.2); Partial Thromboplastin Time 22.1 sec (22.0-30.0); Prothrombin Time 10.1 sec (10.0-12.5)
[2023-10-19 16:00] LABS: African American GFR (CKD) 28 (>60 ml/min/1.73 sqM); Anion Gap 5 mmol/L; Blood Urea Nitrogen 70 mg/dL (9-20); Carbon Dioxide 25 mmol/L (22-30); Chloride 103 mmol/L (98-107); Glucose 110 mg/dL (74-99); Magnesium 2.1 mg/dL (1.6-2.3); Non-African American GFR(CKD) 24 (>60 ml/min/1.73 sqM); Potassium 3.8 mmol/L (3.5-5.1); Sodium 133 mmol/L (137-145)
[2023-10-19 16:16] LABS: LDH 1089 U/L (120-246)
[2023-10-19 16:17] LABS: Platelet Count 94 k/uL (150-450)
[2023-10-19] MEDS: IV FLUID CONTINUATION 1,000 ML IV ONE (19:45)
[2023-10-19] MEDS ORDERED: LIDOCAINE 1% INJ 10MG/ML (20 ML MDV) ONE (20:05)
[2023-10-19] MEDS: IOPAMIDOL-370 100ML BTL INJ ONE ×2 (20:35→21:29)
[2023-10-19] MEDS ORDERED: NALOXONE 0.4 MG/ML 1 ML VIAL IVP PRN (21:39)
--- NOTE | 2023-10-19 21:45 | P.PN ---
Subjective patient is a 77-year-old gentleman past medical history significant for hypothyroidism, hypertension who presented to the ER for generalized weakness and fall. Patient was brought in by family members, apparently patient was trying to use the restroom when he lost all his strength and slumped to the ground. There was no complaint of any loss of consciousness. No complaint of weakness of any extremity. Family did not notice any slurred speech or facial droop. There was no complaint of fever or chills. No complaint of nausea, vomiting, abdominal pain. Patient's family tried to help him to get up but they were unable to lift him. They called EMS and they brought him to ER. Initial lab work done in the ER showed WBC 10.5, hemoglobin 15.2, platelet count 165, sodium 118, potassium 4.1, BUN 24, creatinine 1.26, plasma lactate 4.1, tro ponin 0.012 UA negative for any infection EKG done in the ER showed heart rate of 75, no ST segment elevation or depression seen, no T-wave inversions seen. Chest x-ray done in the ER no acute cardiopulmonary process CT head done showed no acute intracranial process Patient admitted to internal medicine service 09/29. Patient seen and examined. COVID-19 came back positive. Currently on 4 L of oxygen. Sodium this morning is 121. Still complain lethargy and weakness. Patient also diagnosed with COVID 09/30. Patient seen and examined. Blood work done this morning showed WBC 14.9, hemoglobin 12.9, platelet count 146, sodium 126, potassium 3.9, BUN 15, creatinine 0.68. States he feels much better. Shortness of breath is improved. 10/01. Patient seen and examined. Still on 15 L of oxygen via nonrebreather. States he feels better. Sodium level improved to 132, potassium 3.3, BUN 18, creatinine 0.65. Lethargy has improved. 10/02. Patient seen and examined. Currently on 8 L of oxygen via high flow nasal cannula. States he feels much better, breathing is improved, pulmonology recommended sniff test to look for right diaphragm paralysis 10/03. Patient seen and examined. Continues to be on 15 L of oxygen. Patient is not lethargic, states gets short of breath on exertion. Denies any nausea or vomiting 10/04/2023 Patient seen and evaluated in follow-up today continues to be dyspneic maintained on high flow oxygen is being transferred to [facility]. Per nursing staff he continues to remove his nasal cannula as well as nonrebreather and respiratory following recommending i continuing this for a few hours. Patient has noted to be COVID-positive. Sodium is slightly low at 132 potassium was 3.3 yesterday and replaced awaiting follow-up labs. Patient with prolonged hospitalization and continued weakness will likely need ECF once stabilized. 10/05/2023 Patient is seen in follow-up this morning continues on Airvo with maximum oxygen at 60/90 maintaining oxygen saturations in the 88 percentile range. Patient reports having worsening shortness of breath although appears somewhat confused at times. Discussed CODE STATUS with the patient and he wishes to remain full code. Patient is agreeable to mechanical ventilation if required. Patient continues to remove his oxygen from his face desats very quickly. Will get a chest x-ray and continue to monitor closely. Pulmonary and infectious disease following and patient is continued on cefepime with concerns of pneumonia. Patient is currently afebrile and denies chest pain or shortness of breath. Patient reports he is eating although not much of an appetite. 10/06/2023 Patient is seen in follow-up today was transferred to the ICU for respiratory decline per nursing staff as patient continued to have respiratory distress and low oxygen saturations becoming more hypoxic and confused. Patient is continued on Airvo max 60/90 with continued intermittent nonrebreather use. Patient is continued on steroids along with inhalers and pulmonary is following closely. Patient is afebrile with no reported chest pain or shortness of breath. Patient reports to tolerating diet although appears not to be eating very much at all. 10/07/2023 Patient is seen and evaluated in follow-up today continues in the ICU on high flow Airvo 60 L / 90% with oxygen saturations in the low 90s. On exam patient was found to have Airvo out of his nostrils and using nonrebreather and oxygen saturation was 93%. Patient is maintained on antibiotics with infectious disease following closely along with pulmonary technical delivery manager. CODE STATUS was addressed once again and patient wishes to remain full code. Wean FiO2 as t olerated. Encouraged oral intake. Patient to be evaluated by physical therapy once respiratory status improved and will need rehab. 10/09/2023 Patient lying in bed, mildly tachypneic with no chest pain He remains on Airvo 60 L/min Vital stable Remains on dexamethasone and Pepcid Resume of the care of the patient 10/12/2023 Patient with Covid infection and possible right lower lobe pneumonia finish her antibiotics. He does not need antiviral therapy but there is evidence of oral thrush and discovered covered with Diflucan and received nystatin as well. His leukocytosis stable about 18k, no fever. Patient also with fluid overload and hyponatremia sodium 1:30 status post 1 Samsca today, also patient is on IV Lasix 40 mg twice daily Patient currently is oxygen via nasal cannula saturating 88% which is improved from previous, airvo oxygen was stopped 10/13/2023 Patient is clinically stable. He is awake and alert not in distress his breathing is improving and currently he is on 4-5 L/m of oxygen which is a stable Has good air entry bilaterally. I discussed the case with pulmonary team and patient might be considered for discharge from their perspective is also on Diflucan and WBCs 18,000 Status post Samsca and sodium stable at 1:30, low potassium replaced I discussed the case with clinical social worker and patient does not need a bone isolation for his Covid. However he is prior authorization Possible discharge in 24-48 hours 10/14/23 Patient mentation is at baseline No new complaints, no chest pain no significant dyspnea He remains on 5 L oxygen via nasal cannula WBC improved down to 12,000, hemoglobin 12, sodium slightly low at 127, glucose controlled. Ejection fraction 60-65% Remains on Diflucan. Today IV Lasix switched to by mouth 40 mg twice daily Discussed with ed case manager, still pending placement. Still family having contacted staff. 10/15/2023 Patient condition deteriorated and patient developed CODE BLUE called for him and he underwent CPR per protocol with downtime estimated about 7 to 10 minutes He was taken emergently to the Forensic Document Examiner and a total of 5 stents placed into his coronary arteries. Postprocedure patient was taken to the ICU intubated and s edated Also he was started on Impella for hemodynamic support He was started also on aspirin, Brilinta and heparin drip Also patient developed leukocytosis up to 1 31,000 hemoglobin stable around 12. Sodium 129 Creatinine stable at 1.1 10/16/2023 Patient remains in the ICU sedated and intubated Today he lost about 400 to 500 mL of dark-colored fluid through his NG tube so heparin drip was stopped. While patient kept on aspirin and Brilinta History requires Impella in place with cardiology and critical care team following closely He remains on intubated on mechanical ventilation for respiratory support He has significant leukocytosis up to 33,000 and is currently covered with IV vancomycin and meropenem. He has been spiking fever today Also his creatinine jumped up to 1.9 and he developed acute kidney injury His condition remains critical Case discussed with staff and critical care team Patient remains in the ICU intubated and sedated, and he has been monitoring closely. They tried to wean him yesterday and he got agitated. His currently on sedative and propofol His ejection fraction is low indicating cardiogenic shock, EF is around 10 to 20% compared to 66% on the previous days. This is after the STEMI and cardiac arrest. Patient currently on Impella and small dose of Levophed with cardiology and critical care following closely. Stool wean him off Impella if that works then possibly stop Levophed and later on switched Impella to dobutamine this works. Patient does not need heparin drip and he is continued on a dual antiplatelet therapy and statin Also midodrine was added today. His condition remains critical 10/18/2023 pt condition is still critical and his response to treatment is guarded pt is still intubated , requring peep of 12 pt is hypotensive could not tolerate weaning pressores down still on aimpalla his wbc is 20k, hb dropped down to 6.3 and after 2 units of blood transfusion came up to 7.7 still on asprin and brillinta, on iv protnox bid and pepcid, on iv vancomycin, meropenem family may consider more palliative management management discussed with staff 10/19/2023 pt remains intubated and sedated on mechanical ventilation with pulmonary and critical care team are following and managing vent very closely he is still on high peep at 15 he is not suitable for weaning attempts yet he is having maroon stool with gi bleed , so heparin drip on hold also on protonix , surgery team recommend colonoscopy when hemodynamically stable his pressors were stopped and impalla went down to p6 Objective - Vital Signs Vital signs: Vital Signs Temp 99.3 F 10/19/23 12:00 Pulse 88 03/06/24 12:00 Resp 26 H 10/19/23 12:00 BP 98/51 10/19/23 02:00 Pulse Ox 96 10/19/23 12:00 FiO2 50 10/19/23 12:38 Intake & Output 10/18/23 10/19/23 10/19/23 18:59 06:59 18:59 Intake Total 2444.618 486.009 776.256 Output Total 465 400 205 Balance 1979.618 86.009 571.256 Weight 119.5 kg 122 kg Intake: IV 1298 202 650 A-line 78 72 30 Invasive Line 8 20 30 20 Meropenem 1 gm In Sodium 200 100 100 Chloride 0.9% 100 ml @ 33 .3 mls/hr IVPB Q8HR [facility] Rx#:[id number] Sodium Chloride 0.9% 500 500 ml 500 ml @ 999 mls/hr IV .Q31M [facility] Rx#:[id number] Vancomycin 1,750 mg In 500 500 Sodium Chloride 0.9% 500 ml 500 ml @ 167 mls/hr IVPB Q24HR [facility] Rx#: [id number] Intake, IV Titration 776.618 254.009 126.256 Amount DOBUTamine DRIP 500 mg In 43.99 Dextrose/Water 1 250ml. bag @ 2.5 MCG/KG/MIN 8. 798 mls/hr IV .Q24H [facility] Rx#:[id number] Heparin Sod,Pork in 0.45% 135.659 NaCl 25,000 unit In 0.45 % NaCl 1 250ml.bag @ 6.83 UNITS/KG/HR 10.006 mls/ hr IV .Q24H [facility] Rx#: [id number] Norepinephrine 8 mg In 145.707 Sodium Chloride 0.9% 250 ml @ 0.03 MCG/KG/MIN 8. 504 mls/hr IV .Q24H [facility] Rx#:[id number] fentaNYL (PF). 1,000 mcg 157.868 41.35 25.610 In Sodium Chloride 0.9% 80 ml @ 0.5 MCG/KG/HR 5. 865 mls/hr IV .Q17H4M [facility] Rx#:[id number] propofoL 1,000 mg In 293.394 212.659 100.646 Empty Bag 1 bag @ 30 MCG/ KG/MIN 26.37 mls/hr IV . Q3H48M [facility] Rx#:[id number] Blood Product 310 Rc As-1 Unit 310 [id number] Other 60 30 Output: Urine 465 400 205 Other: Voiding Method Indwelling Catheter Indwelling Catheter Indwelling Catheter # Bowel Movements 0 1 0 ABP, PAP, CO, CI - Last Documented Arterial Blood Pressure 112/58 - Exam GENERAL: The patient is sedated and intubated HEENT: Pupils are round and equally reacting to light. EOMI. No scleral icterus. No conjunctival pallor. Normocephalic, atraumatic. No pharyngeal erythema. No thyromegaly. CARDIOVASCULAR: S1 and S2 present. No murmurs, rubs, or gallops. PULMONARY: Chest is clear to auscultation, no wheezing , no crackles. ABDOMEN: Soft, nontender, nondistended, normoactive bowel sounds. No palpable organomegaly. MUSCULOSKELETAL: No joint swelling or deformity. EXTREMITIES: No cyanosis, clubbing, or pedal edema. NEUROLOGICAL: Gross neurological examination did not reveal any focal deficits. SKIN: No rashes. no petechiae. - Labs CBC & Chem 7: 10/19/23 15:00 10/19/23 15:00 Labs: Abnormal Lab Results - Last 24 Hours (Table) 10/16/23 10/18/23 10/18/23 Range/Units 17:40 16:00 16:00 WBC (3.8-10.6) k/uL RBC (4.30-5.90) m/uL Hgb (13.0-17.5) gm/dL Hct (39.0-53.0) % RDW (11.5-15.5) % Plt Count (150-450) k/uL Neutrophils # (1.3-7.7) k/uL Fibrinogen 541 H (200-500) mg/dL ABG pCO2 (35-45) mmHg ABG pO2 (83-108) mmHg ABG HCO3 (21-25) mmol/L ABG Total CO2 (19-24) mmol/L ABG O2 Saturation (94-97) % Sodium (137-145) mmol/L BUN (9-20) mg/dL Creatinine (0.66-1.25) mg/dL Glucose (74-99) mg/dL POC Glucose (mg/dL) (70-110) mg/dL Calcium (8.4-10.2) mg/dL Phosphorus (2.5-4.5) mg/dL AST (17-59) U/L ALT (4-49) U/L Lactate Dehydrogenase 1162 H (120-246) U/L Total Protein (6.3-8.2) g/dL Albumin (3.5-5.0) g/dL Crossmatch See Detail 10/18/23 10/18/23 10/18/23 Range/Units 16:00 16:08 16:18 WBC 20.0 H (3.8-10.6) k/uL RBC 2.48 L (4.30-5.90) m/uL Hgb 7.7 L (13.0-17.5) gm/dL Hct 23.1 L (39.0-53.0) % RDW (11.5-15.5) % Plt Count 98 L (150-450) k/uL Neutrophils # (1.3-7.7) k/uL Fibrinogen (200-500) mg/dL ABG pCO2 48 H (35-45) mmHg ABG pO2 32 L* (83-108) mmHg ABG HCO3 27 H 28 H (21-25) mmol/L ABG Total CO2 28 H 30 H (19-24) mmol/L ABG O2 Saturation 97.6 H 62.7 L (94-97) % Sodium (137-145) mmol/L BUN (9-20) mg/dL Creatinine (0.66-1.25) mg/dL Glucose (74-99) mg/dL POC Glucose (mg/dL) (70-110) mg/dL Calcium (8.4-10.2) mg/dL Phosphorus (2.5-4.5) mg/dL AST (17-59) U/L ALT (4-49) U/L Lactate Dehydrogenase (120-246) U/L Total Protein (6.3-8.2) g/dL Albumin (3.5-5.0) g/dL Crossmatch 10/18/23 10/18/23 10/18/23 Range/Units 18:05 19:57 23:06 WBC 20.9 H (3.8-10.6) k/uL RBC 2.45 L (4.30-5.90) m/uL Hgb 7.7 L (13.0-17.5) gm/dL Hct 22.5 L (39.0-53.0) % RDW (11.5-15.5) % Plt Count 86 L (150-450) k/uL Neutrophils # (1.3-7.7) k/uL Fibrinogen (200-500) mg/dL ABG pCO2 (35-45) mmHg ABG pO2 (83-108) mmHg ABG HCO3 (21-25) mmol/L ABG Total CO2 (19-24) mmol/L ABG O2 Saturation (94-97) % Sodium (137-145) mmol/L BUN (9-20) mg/dL Creatinine (0.66-1.25) mg/dL Glucose (74-99) mg/dL POC Glucose (mg/dL) 144 H 149 H (70-110) mg/dL Calcium (8.4-10.2) mg/dL Phosphorus (2.5-4.5) mg/dL AST (17-59) U/L ALT (4-49) U/L Lactate Dehydrogenase (120-246) U/L Total Protein (6.3-8.2) g/dL Albumin (3.5-5.0) g/dL Crossmatch 10/18/23 10/18/23 10/18/23 Range/Units 23:06 23:06 23:50 WBC (3.8-10.6) k/uL RBC (4.30-5.90) m/uL Hgb (13.0-17.5) gm/dL Hct (39.0-53.0) % RDW (11.5-15.5) % Plt Count (150-450) k/uL Neutrophils # (1.3-7.7) k/uL Fibrinogen 531 H (200-500) mg/dL ABG pCO2 (35-45) mmHg ABG pO2 (83-108) mmHg ABG HCO3 (21-25) mmol/L ABG Total CO2 (19-24) mmol/L ABG O2 Saturation (94-97) % Sodium (137-145) mmol/L BUN (9-20) mg/dL Creatinine (0.66-1.25) mg/dL Glucose (74-99) mg/dL POC Glucose (mg/dL) 132 H (70-110) mg/dL Calcium (8.4-10.2) mg/dL Phosphorus (2.5-4.5) mg/dL AST (17-59) U/L ALT (4-49) U/L Lactate Dehydrogenase 1167 H (120-246) U/L Total Protein (6.3-8.2) g/dL Albumin (3.5-5.0) g/dL Crossmatch 10/19/23 10/19/23 10/19/23 Range/Units 04:05 04:05 04:09 WBC 17.9 H (3.8-10.6) k/uL RBC 2.32 L (4.30-5.90) m/uL Hgb 7.5 L (13.0-17.5) gm/dL Hct 21.3 L (39.0-53.0) % RDW (11.5-15.5) % Plt Count 86 L (150-450) k/uL Neutrophils # 14.4 H (1.3-7.7) k/uL Fibrinogen (200-500) mg/dL ABG pCO2 (35-45) mmHg ABG pO2 (83-108) mmHg ABG HCO3 (21-25) mmol/L ABG Total CO2 (19-24) mmol/L ABG O2 Saturation (94-97) % Sodium 133 L (137-145) mmol/L BUN 69 H (9-20) mg/dL Creatinine 2.41 H (0.66-1.25) mg/dL Glucose 105 H (74-99) mg/dL POC Glucose (mg/dL) 118 H (70-110) mg/dL Calcium 6.7 L (8.4-10.2) mg/dL Phosphorus 5.7 H (2.5-4.5) mg/dL AST 187 H (17-59) U/L ALT 153 H (4-49) U/L Lactate Dehydrogenase (120-246) U/L Total Protein 4.3 L (6.3-8.2) g/dL Albumin 1.8 L (3.5-5.0) g/dL Crossmatch 10/19/23 10/19/23 10/19/23 Range/Units 05:47 06:51 08:21 WBC (3.8-10.6) k/uL RBC (4.30-5.90) m/uL Hgb (13.0-17.5) gm/dL Hct (39.0-53.0) % RDW (11.5-15.5) % Plt Count (150-450) k/uL Neutrophils # (1.3-7.7) k/uL Fibrinogen (200-500) mg/dL ABG pCO2 (35-45) mmHg ABG pO2 82 L (83-108) mmHg ABG HCO3 26 H (21-25) mmol/L ABG Total CO2 27 H (19-24) mmol/L ABG O2 Saturation (94-97) % Sodium (137-145) mmol/L BUN (9-20) mg/dL Creatinine (0.66-1.25) mg/dL Glucose (74-99) mg/dL POC Glucose (mg/dL) 130 H (70-110) mg/dL Calcium (8.4-10.2) mg/dL Phosphorus (2.5-4.5) mg/dL AST (17-59) U/L ALT (4-49) U/L Lactate Dehydrogenase 1116 H (120-246) U/L Total Protein (6.3-8.2) g/dL Albumin (3.5-5.0) g/dL Crossmatch 10/19/23 10/19/23 10/19/23 Range/Units 11:05 11:14 11:47 WBC 19.7 H (3.8-10.6) k/uL RBC 2.31 L (4.30-5.90) m/uL Hgb 7.3 L (13.0-17.5) gm/dL Hct 21.5 L (39.0-53.0) % RDW 15.7 H (11.5-15.5) % Plt Count 90 L (150-450) k/uL Neutrophils # (1.3-7.7) k/uL Fibrinogen (200-500) mg/dL ABG pCO2 (35-45) mmHg ABG pO2 (83-108) mmHg ABG HCO3 26 H (21-25) mmol/L ABG Total CO2 27 H (19-24) mmol/L ABG O2 Saturation 97.4 H (94-97) % Sodium (137-145) mmol/L BUN (9-20) mg/dL Creatinine (0.66-1.25) mg/dL Glucose (74-99) mg/dL POC Glucose (mg/dL) 130 H (70-110) mg/dL Calcium (8.4-10.2) mg/dL Phosphorus (2.5-4.5) mg/dL AST (17-59) U/L ALT (4-49) U/L Lactate Dehydrogenase (120-246) U/L Total Protein (6.3-8.2) g/dL Albumin (3.5-5.0) g/dL Crossmatch 10/19/23 Range/Units 11:55 WBC (3.8-10.6) k/uL RBC (4.30-5.90) m/uL Hgb (13.0-17.5) gm/dL Hct (39.0-53.0) % RDW (11.5-15.5) % Plt Count (150-450) k/uL Neutrophils # (1.3-7.7) k/uL Fibrinogen (200-500) mg/dL ABG pCO2 (35-45) mmHg ABG pO2 52 L* (83-108) mmHg ABG HCO3 26 H (21-25) mmol/L ABG Total CO2 27 H (19-24) mmol/L ABG O2 Saturation 87.3 L (94-97) % Sodium (137-145) mmol/L BUN (9-20) mg/dL Creatinine (0.66-1.25) mg/dL Glucose (74-99) mg/dL POC Glucose (mg/dL) (70-110) mg/dL Calcium (8.4-10.2) mg/dL Phosphorus (2.5-4.5) mg/dL AST (17-59) U/L ALT (4-49) U/L Lactate Dehydrogenase (120-246) U/L Total Protein (6.3-8.2) g/dL Albumin (3.5-5.0) g/dL Crossmatch Microbiology - Last 24 Hours (Table) 10/15/23 13:18 Blood Culture - Preliminary Blood 10/15/23 14:20 Gram Stain - Final Sputum Sputum Culture - Final Assessment and Plan Assessment: Emergent cardiac cath and 5 stents placement Cardiogenic shock and possible septic shock secondary to above Acute hypoxic respiratory failure requiring intubation and mechanical ventilation acute GI Bleed requring blood transufion Acute kidney injury Hyponatremia secondary to poor oral intake, COVID-19 Acute hypoxic respiratory failure secondary to COVID-19, now requiring oxygen via nasal cannula. Altered mental status, with toxic metabolic encephalopathy likely secondary to hypoxia as patient continues to remove oxygen mask from his face Generalized weakness Rhabdomyolysis. Improved Fall Urinary retention requiring indwelling Rosales catheter Hypothyroidism Hypertension Obesity with a BMI of 35.0 acute STEMI s/p Plan: Patient is continued on mechanical ventilation Continue with aspirin and Brilinta heparin drip is discontinued Cardiology consult following closely Pulmonary/critical care team following closely Patient s/p Impella with cardiology team Antibiotics were adjusted into meropenem and IV vancomycin by ID team Continue with insulin coverage Summer consult is on the case including ID team, pulmonary and nephrology Labs and medication were reviewed.. Continue same treatment. Continue with symptomatic treatment. Resume home medication. Monitor labs and vitals. DVT and GI prophylaxis. Further recommendations as per clinical course of the patient DVT prophylaxis: Subcutaneous Lovenox GI Prophylaxis: Pepcid PT/OT: heather prognosis is guarded family consider more palliative management
--- NOTE | 2023-10-19 21:50 | P.PCN ---
Date of Procedure: 10/19/23 Operative Findings: Removal of Impella from the LV Performing physician Ezequiel Carreon Procedure performed 1. Removal of Impella CP from the LV 2. left common and left external iliac angiogram 3. Aspiration thrombectomy from the left external iliac artery using the Pnumbra device 4. Stenting of the left external iliac artery using 7.0 x 50 mm Viabahn self- expandable stent 5. Selective right common femoral artery angiogram Indication This is a 77-year-old gentleman who was admitted to the intensive care unit with cardiogenic shock complicated acute coronary syndrome. An Impella CP was placed. The decision was toward removing the Impella from the left ventricle. Approach Right common femoral artery Complication None Level of sedation Moderate with sedation length of 82 minutes Procedure description After obtaining an informed consent the patient was brought to the cardiac Filter Bed Placer. The patient had an A-line was placed from before. Subsequently I did exchange the A-line 48189 wire into micropuncture sheath. The micropuncture sheath was exchanged over an 035 wire into a 60 Moldovan 70 cm sheath. After that the Impella was turned down and then it was pulled out. Subsequently I did advance an 035 wire using a rim catheter to the left external and the left, and then left SFA. After that the sheath was advanced over the wire to the left common iliac artery. An angiogram was performed initially. Subsequently I did advance a 8 mm x 60 mm 035 balloon over the wire to the left common and left external iliac artery. Subsequently the sheath was pulled about and the balloon was inflated and tamponade the left common artery. The balloon was inflated for about 10 minutes with an angiogram was performed and showed good hemostasis but the patient was having large thrombus burden appeared to be also occlusive. I did balloon angioplasty on the clot and the clot did not get better. After that I decided to an aspiration which was performed also with no improvement with at that point I decided to cover that using a covered stent. I advanced 7.0 x 50 mm Viabahn self-expandable stent where the stent was positioned under fluoroscopy guidance and deployed under fluoroscopy guidance. The stent was undersized. I did postdilated using 8 mm balloon with mild improvement. By the end no residual clot was seen. The patient had good flow. The procedure was completed with no complication. After that at the exchange my long sheath into short sheath using 035 wire. After that it is selective right common femoral artery angiogram. Postprocedure management ICU admission Follow-up with the patient
[2023-10-19 22:06] LABS: Glucose,Whole Blood 118 mg/dL (70-110)
[2023-10-19] MEDS: SODIUM CHLORIDE 0.9% 1,000 ML in EMPTY BAG 1 BAG IV SCH (23:45)
[2023-10-20 00:14] LABS: Glucose,Whole Blood 125 mg/dL (70-110)
[2023-10-20 02:08] LABS: HCT 20.9 % (39.0-53.0); HGB 7.1 gm/dL (13.0-17.5); MCH 31.4 pg (25.0-35.0); MCHC 33.9 g/dL (31.0-37.0); MCV 92.8 fL (80.0-100.0); Mean Platelet Volume 10.3; RBC 2.25 m/uL (4.30-5.90); RDW 15.7 % (11.5-15.5)
[2023-10-20 02:18] LABS: Platelet Count 90 k/uL (150-450)
[2023-10-20 02:47] LABS: Basophils # (M) 0.18 k/uL (0-0.2); Eosinophils # (M) 0.18 k/uL (0-0.7); Lymphocytes # (M) 2.49 k/uL (1.0-4.8); Metamyelocytes # (M) 0.18 k/uL (0); Metamyelocytes % 1 %; Monocytes # (M) 0.53 k/uL (0-1.0); Neutrophils # (M) 14.42 k/uL (1.3-7.7); Neutrophils % (M) 81 %; Nucleated Red Blood Cells 1 /100 WBC (0-0); Total Cells Counted 200; WBC 17.8 k/uL (3.8-10.6)
[2023-10-20 02:50] LABS: Anisocytosis (M) Present
[2023-10-20 04:19] LABS: Glucose,Whole Blood 118 mg/dL (70-110)
[2023-10-20 05:22] LABS: Anisocytosis Slight; HCT 20.5 % (39.0-53.0); MCH 31.3 pg (25.0-35.0); MCHC 33.5 g/dL (31.0-37.0); MCV 93.5 fL (80.0-100.0); Mean Platelet Volume 10.5; RBC 2.19 m/uL (4.30-5.90); WBC 17.3 k/uL (3.8-10.6)
[2023-10-20 05:23] LABS: Platelet Count 94 k/uL (150-450)
[2023-10-20 05:25] LABS: HGB 6.9 gm/dL (13.0-17.5)
[2023-10-20 05:27] LABS: ABG Base Excess -0.5 mmol/L; ABG HCO3 24 mmol/L (21-25); ABG PCO2 40 mmHg (35-45); ABG PH 7.39 (7.35-7.45); ABG PO2 88 mmHg (83-108); ABG TCO2 26 mmol/L (19-24); Allen Test Performed? Yes
[2023-10-20 05:33] LABS: ALT 108 U/L (4-49); AST 157 U/L (17-59); African American GFR (CKD) 29 (>60 ml/min/1.73 sqM); Albumin 1.9 g/dL (3.5-5.0); Alkaline Phosphatase 78 U/L (38-126); Anion Gap 5 mmol/L; Blood Urea Nitrogen 73 mg/dL (9-20); Carbon Dioxide 23 mmol/L (22-30); Chloride 105 mmol/L (98-107); Glucose 96 mg/dL (74-99); Non-African American GFR(CKD) 25 (>60 ml/min/1.73 sqM); Potassium 3.6 mmol/L (3.5-5.1); Sodium 133 mmol/L (137-145); Total Bilirubin 0.9 mg/dL (0.2-1.3); Total Protein 4.4 g/dL (6.3-8.2)
[2023-10-20 05:38] LABS: Vancomycin,Random 28.3 ug/mL
[2023-10-20 06:05] LABS: Band Neutrophils % 2 %; Eosinophils # (M) 0.35 k/uL (0-0.7); Metamyelocytes # (M) 1.04 k/uL (0); Metamyelocytes % 6 %; Myelocytes # (M) 0.52 k/uL (0); Myelocytes % 3 %; Neutrophils % (M) 62 %; Nucleated Red Blood Cells 0 /100 WBC (0-0); Total Cells Counted 200
[2023-10-20] MEDS: POTASSIUM CHLORIDE 10 MEQ in WATER FOR INJECTION 1 100ML.BAG IVPB SCH (07:03)
[2023-10-20 07:43] LABS: Glucose,Whole Blood 121 mg/dL (70-110)
--- NOTE | 2023-10-20 07:56 | XR ---
EXAMINATION TYPE: XR chest 1V portable DATE OF EXAM: 10/20/2023 COMPARISON: 10/19/2023 HISTORY: SOB, Follow Up FINDINGS: Indwelling tubes and catheters are unchanged. Scattered areas of patchy infiltrate unchanged from prior study. Stable appearance of the cardio-mediastinal structures at this time. IMPRESSION: 1. Scattered areas of patchy infiltrate unchanged from prior study.
[2023-10-20 11:58] LABS: Glucose,Whole Blood 120 mg/dL (70-110)
--- NOTE | 2023-10-20 12:09 | P.PN ---
Subjective Patient is seen for follow-up for hyponatremia. Patient remains on the vent. FiO2 at 50%. Uop 80-50 mL an hour Patient is off IMpella Levo fed at 0.02 mics Serum creatinine slightly lower at 2.5 today. Objective - Vital Signs Vital signs: Vital Signs Temp 98.1 F 10/20/23 08:00 Pulse 94 10/20/23 11:48 Resp 26 H 10/20/23 11:00 BP 91/52 10/20/23 11:00 Pulse Ox 97 10/20/23 11:00 FiO2 50 10/20/23 11:30 Intake & Output 10/19/23 10/20/23 10/20/23 18:59 06:59 18:59 Intake Total 4298.173 0665.306 675.858 Output Total 655 525 365 Balance 427.142 530.306 310.858 Weight 121.5 kg 121.5 kg Intake: IV 696 547 99.9 A-line 66 12 Invasive Line 8 30 10 Meropenem 1 gm In Sodium 100 100 99.9 Chloride 0.9% 100 ml @ 33 .3 mls/hr IVPB Q8HR [place] Rx#:[id number] Sodium Chloride 0.9% 1, 375 000 ml In Empty Bag 1 bag @ 75 mls/hr IV .[id number] [place] Rx#:[id number] Vancomycin 1,750 mg In 500 Sodium Chloride 0.9% 500 ml 500 ml @ 167 mls/hr IVPB Q24HR [place] Rx#: [id number] Intake, IV Titration 386.142 508.306 535.958 Amount Norepinephrine 4 mg In 0 108.306 9.761 Sodium Chloride 0.9% 250 ml @ 0.03 MCG/KG/MIN 13. 945 mls/hr IV .[id number] [place] Rx#:[id number] Potassium Chloride 10 meq 400 In Water For Injection 1 100ml.bag @ 100 mls/hr IVPB Q1H [place] Rx#: [id number] fentaNYL (PF). 1,000 mcg 100.000 200 26.197 In Sodium Chloride 0.9% 80 ml @ 0.5 MCG/KG/HR 5. 865 mls/hr IV .Q17H4M [place] Rx#:[id number] propofoL 1,000 mg In 286.142 200 100.000 Empty Bag 1 bag @ 30 MCG/ KG/MIN 26.37 mls/hr IV . Q3H48M [facility] Rx#:[id number] Tube Feeding 10 Other 30 Output: Urine 655 525 365 Other: Voiding Method Indwelling Catheter Indwelling Catheter # Bowel Movements 0 1 ABP, PAP, CO, CI - Last Documented Arterial Blood Pressure 111/51 - Exam Patient is currently sedated and on the vent Examination of the heart S1 and S2 Examination of the lungs shows bilateral breath sounds are heard Abdomen is soft nontender Examination of lower extremity shows edema 2+ bilaterally upper and lower extremities REPLENISHER exam cannot be performed - Labs CBC & Chem 7: 10/20/23 04:24 10/20/23 04:24 Labs: Abnormal Lab Results - Last 24 Hours (Table) 10/16/23 10/19/23 10/19/23 Range/Units 17:40 11:47 11:55 WBC (3.8-10.6) k/uL RBC (4.30-5.90) m/uL Hgb (13.0-17.5) gm/dL Hct (39.0-53.0) % RDW (11.5-15.5) % Plt Count (150-450) k/uL Neutrophils # (Manual) (1.3-7.7) k/uL Monocytes # (Manual) (0-1.0) k/uL Metamyelocytes # (Man) (0) k/uL Myelocytes # (Manual) (0) k/uL Nucleated RBCs (0-0) /100 WBC Fibrinogen (200-500) mg/dL ABG pO2 52 L* (83-108) mmHg ABG HCO3 26 H 26 H (21-25) mmol/L ABG Total CO2 27 H 27 H (19-24) mmol/L ABG O2 Saturation 97.4 H 87.3 L (94-97) % Sodium (137-145) mmol/L BUN (9-20) mg/dL Creatinine (0.66-1.25) mg/dL Glucose (74-99) mg/dL POC Glucose (mg/dL) (70-110) mg/dL Calcium (8.4-10.2) mg/dL AST (17-59) U/L ALT (4-49) U/L Lactate Dehydrogenase (120-246) U/L Total Protein (6.3-8.2) g/dL Albumin (3.5-5.0) g/dL Procalcitonin (0.02-0.09) ng/mL Crossmatch See Detail 10/19/23 10/19/23 10/19/23 Range/Units 15:00 15:00 15:00 WBC 19.3 H (3.8-10.6) k/uL RBC 2.39 L (4.30-5.90) m/uL Hgb 7.4 L (13.0-17.5) gm/dL Hct 22.2 L (39.0-53.0) % RDW (11.5-15.5) % Plt Count 94 L (150-450) k/uL Neutrophils # (Manual) (1.3-7.7) k/uL Monocytes # (Manual) (0-1.0) k/uL Metamyelocytes # (Man) (0) k/uL Myelocytes # (Manual) (0) k/uL Nucleated RBCs (0-0) /100 WBC Fibrinogen 504 H (200-500) mg/dL ABG pO2 (83-108) mmHg ABG HCO3 (21-25) mmol/L ABG Total CO2 (19-24) mmol/L ABG O2 Saturation (94-97) % Sodium 133 L (137-145) mmol/L BUN 70 H (9-20) mg/dL Creatinine 2.52 H (0.66-1.25) mg/dL Glucose 110 H (74-99) mg/dL POC Glucose (mg/dL) (70-110) mg/dL Calcium 7.0 L (8.4-10.2) mg/dL AST (17-59) U/L ALT (4-49) U/L Lactate Dehydrogenase 1089 H (120-246) U/L Total Protein (6.3-8.2) g/dL Albumin (3.5-5.0) g/dL Procalcitonin (0.02-0.09) ng/mL Crossmatch 10/19/23 10/19/23 10/19/23 Range/Units 15:00 15:48 22:05 WBC (3.8-10.6) k/uL RBC (4.30-5.90) m/uL Hgb (13.0-17.5) gm/dL Hct (39.0-53.0) % RDW (11.5-15.5) % Plt Count (150-450) k/uL Neutrophils # (Manual) (1.3-7.7) k/uL Monocytes # (Manual) (0-1.0) k/uL Metamyelocytes # (Man) (0) k/uL Myelocytes # (Manual) (0) k/uL Nucleated RBCs (0-0) /100 WBC Fibrinogen (200-500) mg/dL ABG pO2 (83-108) mmHg ABG HCO3 (21-25) mmol/L ABG Total CO2 (19-24) mmol/L ABG O2 Saturation (94-97) % Sodium (137-145) mmol/L BUN (9-20) mg/dL Creatinine (0.66-1.25) mg/dL Glucose (74-99) mg/dL POC Glucose (mg/dL) 127 H 118 H (70-110) mg/dL Calcium (8.4-10.2) mg/dL AST (17-59) U/L ALT (4-49) U/L Lactate Dehydrogenase (120-246) U/L Total Protein (6.3-8.2) g/dL Albumin (3.5-5.0) g/dL Procalcitonin 2.01 H (0.02-0.09) ng/mL Crossmatch 10/20/23 10/20/23 10/20/23 Range/Units 00:12 01:34 04:17 WBC 17.8 H (3.8-10.6) k/uL RBC 2.25 L (4.30-5.90) m/uL Hgb 7.1 L (13.0-17.5) gm/dL Hct 20.9 L (39.0-53.0) % RDW 15.7 H (11.5-15.5) % Plt Count 90 L (150-450) k/uL Neutrophils # (Manual) 14.42 H (1.3-7.7) k/uL Monocytes # (Manual) (0-1.0) k/uL Metamyelocytes # (Man) 0.18 H (0) k/uL Myelocytes # (Manual) (0) k/uL Nucleated RBCs 1 H (0-0) /100 WBC Fibrinogen (200-500) mg/dL ABG pO2 (83-108) mmHg ABG HCO3 (21-25) mmol/L ABG Total CO2 (19-24) mmol/L ABG O2 Saturation (94-97) % Sodium (137-145) mmol/L BUN (9-20) mg/dL Creatinine (0.66-1.25) mg/dL Glucose (74-99) mg/dL POC Glucose (mg/dL) 125 H 118 H (70-110) mg/dL Calcium (8.4-10.2) mg/dL AST (17-59) U/L ALT (4-49) U/L Lactate Dehydrogenase (120-246) U/L Total Protein (6.3-8.2) g/dL Albumin (3.5-5.0) g/dL Procalcitonin (0.02-0.09) ng/mL Crossmatch 10/20/23 10/20/23 10/20/23 Range/Units 04:24 04:24 05:25 WBC 17.3 H (3.8-10.6) k/uL RBC 2.19 L (4.30-5.90) m/uL Hgb 6.9 L* (13.0-17.5) gm/dL Hct 20.5 L (39.0-53.0) % RDW 16.0 H (11.5-15.5) % Plt Count 94 L (150-450) k/uL Neutrophils # (Manual) 11.00 H (1.3-7.7) k/uL Monocytes # (Manual) 1.90 H (0-1.0) k/uL Metamyelocytes # (Man) 1.04 H (0) k/uL Myelocytes # (Manual) 0.52 H (0) k/uL Nucleated RBCs (0-0) /100 WBC Fibrinogen (200-500) mg/dL ABG pO2 (83-108) mmHg ABG HCO3 (21-25) mmol/L ABG Total CO2 26 H (19-24) mmol/L ABG O2 Saturation (94-97) % Sodium 133 L (137-145) mmol/L BUN 73 H (9-20) mg/dL Creatinine 2.40 H (0.66-1.25) mg/dL Glucose (74-99) mg/dL POC Glucose (mg/dL) (70-110) mg/dL Calcium 7.0 L (8.4-10.2) mg/dL AST 157 H (17-59) U/L ALT 108 H (4-49) U/L Lactate Dehydrogenase (120-246) U/L Total Protein 4.4 L (6.3-8.2) g/dL Albumin 1.9 L (3.5-5.0) g/dL Procalcitonin (0.02-0.09) ng/mL Crossmatch 10/20/23 10/20/23 10/20/23 Range/Units 07:42 10:16 11:56 WBC (3.8-10.6) k/uL RBC (4.30-5.90) m/uL Hgb (13.0-17.5) gm/dL Hct (39.0-53.0) % RDW (11.5-15.5) % Plt Count (150-450) k/uL Neutrophils # (Manual) (1.3-7.7) k/uL Monocytes # (Manual) (0-1.0) k/uL Metamyelocytes # (Man) (0) k/uL Myelocytes # (Manual) (0) k/uL Nucleated RBCs (0-0) /100 WBC Fibrinogen (200-500) mg/dL ABG pO2 (83-108) mmHg ABG HCO3 (21-25) mmol/L ABG Total CO2 (19-24) mmol/L ABG O2 Saturation (94-97) % Sodium (137-145) mmol/L BUN (9-20) mg/dL Creatinine (0.66-1.25) mg/dL Glucose (74-99) mg/dL POC Glucose (mg/dL) 121 H 120 H (70-110) mg/dL Calcium (8.4-10.2) mg/dL AST (17-59) U/L ALT (4-49) U/L Lactate Dehydrogenase (120-246) U/L Total Protein (6.3-8.2) g/dL Albumin (3.5-5.0) g/dL Procalcitonin (0.02-0.09) ng/mL Crossmatch See Detail Assessment and Plan Assessment: 1. Hyponatremia. Hypervolemic. Status post diuresis after initial admission. Sodium is currently stable at 132-133 2. Acute kidney injury, initially secondary to urine retention however currently in ATN. Nonoliguric secondary to hypotension and cardiac arrest. No proteinuria on UA. No hydronephrosis noted on kidney ultrasound. 3. Urinary retention status post Rosales catheter placement. On Flomax. 4. Benign hypertension. Controlled. 5. Hypokalemia from poor intake and postobstructive diuresis. Magnesium normal. 6. Rhabdomyolysis secondary to fall. 7. Status postcardiac arrest x [address] elevation MD status post 5 coronary stents placement on 10/14/2023. 9. GI bleed 10. Cardiogenic shock 11. Volume overload Plan: Maintain scheduled dose of IV Lasix Overall prognosis is guarded. Repeat labs in a.m.
--- NOTE | 2023-10-20 12:20 | P.PN ---
Subjective Progress Note Date: 10/19/23 Principal diagnosis: Reason for follow-up is COVID-19 and pneumonia Patient is a 77-year-old male with a past medical history significant for hypertension seizure disorder hypothyroidism patient has been brought into the hospital for evaluation of generalized weakness patient was noticed to be on the bathroom floor after apparently patient fell down, patient did tested positive for COVID-19, initial chest x-ray reported negative.Patient did have significant change in his clinical condition and did have a cardiac arrest on 10/14/2023 the patient was taken to the [facility] and did have PTCA and stenting x 5 subsequently patient has been admitted to ICU. On today's visit that is 10/19/2023,the patient did have resolution of his fever and is afebrile this morning afebrile, patient remains to be intubated on the vent with an FiO2 of 50% no significant pleural laceration through the ET patient still requiring pressor support no weaning of any sedation is slowly be ing cut back Patient white count slightly up to 19.3 creatinine is 2.52 Objective - Vital Signs Vital signs: Vital Signs Temp 99.3 F 10/19/23 12:00 Pulse 88 10/19/23 12:00 Resp 26 H 10/19/23 12:00 BP 98/51 10/19/23 02:00 Pulse Ox 96 10/19/23 12:00 FiO2 50 10/19/23 12:00 Intake & Output 10/18/23 10/19/23 10/19/23 18:59 06:59 18:59 Intake Total 2444.618 486.009 776.256 Output Total 465 400 205 Balance 1979.618 86.009 571.256 Weight 119.5 kg 122 kg Intake: IV 1298 202 650 A-line 78 72 30 Invasive Line 8 20 30 20 Meropenem 1 gm In Sodium 200 100 100 Chloride 0.9% 100 ml @ 33 .3 mls/hr IVPB Q8HR [facility] Rx#:[id number] Sodium Chloride 0.9% 500 500 ml 500 ml @ 999 mls/hr IV .Q31M [facility] Rx#:[id number] Vancomycin 1,750 mg In 500 500 Sodium Chloride 0.9% 500 ml 500 ml @ 167 mls/hr IVPB Q24HR [facility] Rx#: [id number] Intake, IV Titration 776.618 254.009 126.256 Amount DOBUTamine DRIP 500 mg In 43.99 Dextrose/Water 1 250ml. bag @ 2.5 MCG/KG/MIN 8. 798 mls/hr IV .Q24H [place] Rx#:[id number] Heparin Sod,Pork in 0.45% 135.659 NaCl 25,000 unit In 0.45 % NaCl 1 250ml.bag @ 6.83 UNITS/KG/HR 10.006 mls/ hr IV .Q24H [place] Rx#: [id number] Norepinephrine 8 mg In 145.707 Sodium Chloride 0.9% 250 ml @ 0.03 MCG/KG/MIN 8. 504 mls/hr IV .Q24H [place] Rx#:[id number] fentaNYL (PF). 1,000 mcg 157.868 41.35 25.610 In Sodium Chloride 0.9% 80 ml @ 0.5 MCG/KG/HR 5. 865 mls/hr IV .Q17H4M [place] Rx#:[id number] propofoL 1,000 mg In 293.394 212.659 100.646 Empty Bag 1 bag @ 30 MCG/ KG/MIN 26.37 mls/hr IV . Q3H48M [place] Rx#:[id number] Blood Product 310 Rc As-1 Unit 310 [id number] Other 60 30 Output: Urine 465 400 205 Other: Voiding Method Indwelling Catheter Indwelling Catheter Indwelling Catheter # Bowel Movements 0 1 0 ABP, PAP, CO, CI - Last Documented Arterial Blood Pressure 112/58 - Exam GENERAL DESCRIPTION: An elderly male intubated on the vent RESPIRATORY SYSTEM: Unlabored breathing , decreased breath sounds at bases HEART: S1 S2 regular rate and rhythm , ABDOMEN: Soft , no tenderness EXTREMITIES: No edema feet - Labs CBC & Chem 7: 10/20/23 04:24 10/20/23 04:24 Labs: Abnormal Lab Results - Last 24 Hours (Table) 10/16/23 10/18/23 10/18/23 Range/Units 17:40 16:00 16:00 WBC (3.8-10.6) k/uL RBC (4.30-5.90) m/uL Hgb (13.0-17.5) gm/dL Hct (39.0-53.0) % RDW (11.5-15.5) % Plt Count (150-450) k/uL Neutrophils # (1.3-7.7) k/uL Fibrinogen 541 H (200-500) mg/dL ABG pCO2 (35-45) mmHg ABG pO2 (83-108) mmHg ABG HCO3 (21-25) mmol/L ABG Total CO2 (19-24) mmol/L ABG O2 Saturation (94-97) % Sodium (137-145) mmol/L BUN (9-20) mg/dL Creatinine (0.66-1.25) mg/dL Glucose (74-99) mg/dL POC Glucose (mg/dL) (70-110) mg/dL Calcium (8.4-10.2) mg/dL Phosphorus (2.5-4.5) mg/dL AST (17-59) U/L ALT (4-49) U/L Lactate Dehydrogenase 1162 H (120-246) U/L Total Protein (6.3-8.2) g/dL Albumin (3.5-5.0) g/dL Crossmatch See Detail 10/18/23 10/18/23 10/18/23 Range/Units 16:00 16:08 16:18 WBC 20.0 H (3.8-10.6) k/uL RBC 2.48 L (4.30-5.90) m/uL Hgb 7.7 L (13.0-17.5) gm/dL Hct 23.1 L (39.0-53.0) % RDW (11.5-15.5) % Plt Count 98 L (150-450) k/uL Neutrophils # (1.3-7.7) k/uL Fibrinogen (200-500) mg/dL ABG pCO2 48 H (35-45) mmHg ABG pO2 32 L* (83-108) mmHg ABG HCO3 27 H 28 H (21-25) mmol/L ABG Total CO2 28 H 30 H (19-24) mmol/L ABG O2 Saturation 97.6 H 62.7 L (94-97) % Sodium (137-145) mmol/L BUN (9-20) mg/dL Creatinine (0.66-1.25) mg/dL Glucose (74-99) mg/dL POC Glucose (mg/dL) (70-110) mg/dL Calcium (8.4-10.2) mg/dL Phosphorus (2.5-4.5) mg/dL AST (17-59) U/L ALT (4-49) U/L Lactate Dehydrogenase (120-246) U/L Total Protein (6.3-8.2) g/dL Albumin (3.5-5.0) g/dL Crossmatch 10/18/23 10/18/23 10/18/23 Range/Units 18:05 19:57 23:06 WBC 20.9 H (3.8-10.6) k/uL RBC 2.45 L (4.30-5.90) m/uL Hgb 7.7 L (13.0-17.5) gm/dL Hct 22.5 L (39.0-53.0) % RDW (11.5-15.5) % Plt Count 86 L (150-450) k/uL Neutrophils # (1.3-7.7) k/uL Fibrinogen (200-500) mg/dL ABG pCO2 (35-45) mmHg ABG pO2 (83-108) mmHg ABG HCO3 (21-25) mmol/L ABG Total CO2 (19-24) mmol/L ABG O2 Saturation (94-97) % Sodium (137-145) mmol/L BUN (9-20) mg/dL Creatinine (0.66-1.25) mg/dL Glucose (74-99) mg/dL POC Glucose (mg/dL) 144 H 149 H (70-110) mg/dL Calcium (8.4-10.2) mg/dL Phosphorus (2.5-4.5) mg/dL AST (17-59) U/L ALT (4-49) U/L Lactate Dehydrogenase (120-246) U/L Total Protein (6.3-8.2) g/dL Albumin (3.5-5.0) g/dL Crossmatch 10/18/23 10/18/23 10/18/23 Range/Units 23:06 23:06 23:50 WBC (3.8-10.6) k/uL RBC (4.30-5.90) m/uL Hgb (13.0-17.5) gm/dL Hct (39.0-53.0) % RDW (11.5-15.5) % Plt Count (150-450) k/uL Neutrophils # (1.3-7.7) k/uL Fibrinogen 531 H (200-500) mg/dL ABG pCO2 (35-45) mmHg ABG pO2 (83-108) mmHg ABG HCO3 (21-25) mmol/L ABG Total CO2 (19-24) mmol/L ABG O2 Saturation (94-97) % Sodium (137-145) mmol/L BUN (9-20) mg/dL Creatinine (0.66-1.25) mg/dL Glucose (74-99) mg/dL POC Glucose (mg/dL) 132 H (70-110) mg/dL Calcium (8.4-10.2) mg/dL Phosphorus (2.5-4.5) mg/dL AST (17-59) U/L ALT (4-49) U/L Lactate Dehydrogenase 1167 H (120-246) U/L Total Protein (6.3-8.2) g/dL Albumin (3.5-5.0) g/dL Crossmatch 10/19/23 10/19/23 10/19/23 Range/Units 04:05 04:05 04:09 WBC 17.9 H (3.8-10.6) k/uL RBC 2.32 L (4.30-5.90) m/uL Hgb 7.5 L (13.0-17.5) gm/dL Hct 21.3 L (39.0-53.0) % RDW (11.5-15.5) % Plt Count 86 L (150-450) k/uL Neutrophils # 14.4 H (1.3-7.7) k/uL Fibrinogen (200-500) mg/dL ABG pCO2 (35-45) mmHg ABG pO2 (83-108) mmHg ABG HCO3 (21-25) mmol/L ABG Total CO2 (19-24) mmol/L ABG O2 Saturation (94-97) % Sodium 133 L (137-145) mmol/L BUN 69 H (9-20) mg/dL Creatinine 2.41 H (0.66-1.25) mg/dL Glucose 105 H (74-99) mg/dL POC Glucose (mg/dL) 118 H (70-110) mg/dL Calcium 6.7 L (8.4-10.2) mg/dL Phosphorus 5.7 H (2.5-4.5) mg/dL AST 187 H (17-59) U/L ALT 153 H (4-49) U/L Lactate Dehydrogenase (120-246) U/L Total Protein 4.3 L (6.3-8.2) g/dL Albumin 1.8 L (3.5-5.0) g/dL Crossmatch 10/19/23 10/19/23 10/19/23 Range/Units 05:47 06:51 08:21 WBC (3.8-10.6) k/uL RBC (4.30-5.90) m/uL Hgb (13.0-17.5) gm/dL Hct (39.0-53.0) % RDW (11.5-15.5) % Plt Count (150-450) k/uL Neutrophils # (1.3-7.7) k/uL Fibrinogen (200-500) mg/dL ABG pCO2 (35-45) mmHg ABG pO2 82 L (83-108) mmHg ABG HCO3 26 H (21-25) mmol/L ABG Total CO2 27 H (19-24) mmol/L ABG O2 Saturation (94-97) % Sodium (137-145) mmol/L BUN (9-20) mg/dL Creatinine (0.66-1.25) mg/dL Glucose (74-99) mg/dL POC Glucose (mg/dL) 130 H (70-110) mg/dL Calcium (8.4-10.2) mg/dL Phosphorus (2.5-4.5) mg/dL AST (17-59) U/L ALT (4-49) U/L Lactate Dehydrogenase 1116 H (120-246) U/L Total Protein (6.3-8.2) g/dL Albumin (3.5-5.0) g/dL Crossmatch 10/19/23 10/19/23 10/19/23 Range/Units 11:05 11:14 11:47 WBC 19.7 H (3.8-10.6) k/uL RBC 2.31 L (4.30-5.90) m/uL Hgb 7.3 L (13.0-17.5) gm/dL Hct 21.5 L (39.0-53.0) % RDW 15.7 H (11.5-15.5) % Plt Count 90 L (150-450) k/uL Neutrophils # (1.3-7.7) k/uL Fibrinogen (200-500) mg/dL ABG pCO2 (35-45) mmHg ABG pO2 (83-108) mmHg ABG HCO3 26 H (21-25) mmol/L ABG Total CO2 27 H (19-24) mmol/L ABG O2 Saturation 97.4 H (94-97) % Sodium (137-145) mmol/L BUN (9-20) mg/dL Creatinine (0.66-1.25) mg/dL Glucose (74-99) mg/dL POC Glucose (mg/dL) 130 H (70-110) mg/dL Calcium (8.4-10.2) mg/dL Phosphorus (2.5-4.5) mg/dL AST (17-59) U/L ALT (4-49) U/L Lactate Dehydrogenase (120-246) U/L Total Protein (6.3-8.2) g/dL Albumin (3.5-5.0) g/dL Crossmatch 10/19/23 Range/Units 11:55 WBC (3.8-10.6) k/uL RBC (4.30-5.90) m/uL Hgb (13.0-17.5) gm/dL Hct (39.0-53.0) % RDW (11.5-15.5) % Plt Count (150-450) k/uL Neutrophils # (1.3-7.7) k/uL Fibrinogen (200-500) mg/dL ABG pCO2 (35-45) mmHg ABG pO2 52 L* (83-108) mmHg ABG HCO3 26 H (21-25) mmol/L ABG Total CO2 27 H (19-24) mmol/L ABG O2 Saturation 87.3 L (94-97) % Sodium (137-145) mmol/L BUN (9-20) mg/dL Creatinine (0.66-1.25) mg/dL Glucose (74-99) mg/dL POC Glucose (mg/dL) (70-110) mg/dL Calcium (8.4-10.2) mg/dL Phosphorus (2.5-4.5) mg/dL AST (17-59) U/L ALT (4-49) U/L Lactate Dehydrogenase (120-246) U/L Total Protein (6.3-8.2) g/dL Albumin (3.5-5.0) g/dL Crossmatch Microbiology - Last 24 Hours (Table) 10/15/23 13:18 Blood Culture - Preliminary Blood 10/15/23 14:20 Gram Stain - Final Sputum Sputum Culture - Final Assessment and Plan (1) COVID-19 Current Visit: Yes Status: Acute Code(s): U07.1 - COVID-19 SNOMED Code(s): 245576929 (2) Sepsis Current Visit: Yes Status: Acute Code(s): A41.9 - SEPSIS, UNSPECIFIED ORGANISM SNOMED Code(s): 63573730 (3) Pneumonia Current Visit: Yes Status: Acute Code(s): J18.9 - PNEUMONIA, UNSPECIFIED ORGANISM SNOMED Code(s): 745869884 (4) Penicillin allergy Current Visit: Yes Status: Acute Code(s): Z88.0 - ALLERGY STATUS TO PENICILLIN SNOMED Code(s): 17114087 (5) Thrush, oral Current Visit: Yes Status: Acute Code(s): B37.0 - CANDIDAL STOMATITIS SNOMED Code(s): 64255362 Plan: 1patient did have significant changes in clinical condition he did have a cardiac arrest on 10/14/2023 Patient Was Taken to the [facility] status post PTCA and stenting x 5 patient did have a new fever and is requiring pressor support 2- blood cultures and sputum for Gram stain culture are currently pending 3-patient did have resolution of his fever and white count is trending down, we will continue with meropenem and vancomycin, while waiting for the culture to finalize and monitor clinical course closely, prognosis remains to be guarded Dictation was produced using [employer] software. please excuse any grammatical, word or spelling errors. Time with Patient: Less than 30
--- NOTE | 2023-10-20 12:21 | P.PN ---
Subjective Progress Note Date: 10/20/23 Principal diagnosis: Reason for follow-up is COVID-19 and pneumonia Patient is a 77-year-old male with a past medical history significant for hypertension seizure disorder hypothyroidism patient has been brought into the hospital for evaluation of generalized weakness patient was noticed to be on the bathroom floor after apparently patient fell down, patient did tested positive for COVID-19, initial chest x-ray reported negative.Patient did have significant change in his clinical condition and did have a cardiac arrest on 10/14/2023 the patient was taken to the [facility] and did have PTCA and stenting x 5 subsequently patient has been admitted to ICU. On today's visit that is 10/20/2023, the patient continues to be afebrile, the patient is intubated on the vent, FiO2 is stable at 50% and no significant purulent secretions through the ET patient requiring less pressor support however patient not working up despite cut back on the sedation per the nursing staff Patient white count is down to 17.3 creatinine is 2.40 cultures so far negative Objective - Vital Signs Vital signs: Vital Signs Temp 98.6 F 10/20/23 12:16 Pulse 80 10/20/23 12:16 Resp 26 H 10/20/23 12:16 BP 101/58 10/20/23 12:16 Pulse Ox 97 10/20/23 12:16 FiO2 50 10/20/23 12:00 Intake & Output 10/19/23 10/20/23 10/20/23 18:59 06:59 18:59 Intake Total 5035.565 0089.306 680.257 Output Total 655 525 365 Balance 427.142 530.306 315.257 Weight 121.5 kg 121.5 kg Intake: IV 696 547 99.9 A-line 66 12 Invasive Line 8 30 10 Meropenem 1 gm In Sodium 100 100 99.9 Chloride 0.9% 100 ml @ 33 .3 mls/hr IVPB Q8HR [place] Rx#:[id number] Sodium Chloride 0.9% 1, 375 000 ml In Empty Bag 1 bag @ 75 mls/hr IV .[id number] [place] Rx#:[id number] Vancomycin 1,750 mg In 500 Sodium Chloride 0.9% 500 ml 500 ml @ 167 mls/hr IVPB Q24HR [place] Rx#: [id number] Intake, IV Titration 386.142 508.306 540.357 Amount Norepinephrine 4 mg In 0 108.306 9.761 Sodium Chloride 0.9% 250 ml @ 0.03 MCG/KG/MIN 13. 945 mls/hr IV .[id number] [place] Rx#:[id number] Potassium Chloride 10 meq 400 In Water For Injection 1 100ml.bag @ 100 mls/hr IVPB Q1H [place] Rx#: [id number] fentaNYL (PF). 1,000 mcg 100.000 200 30.596 In Sodium Chloride 0.9% 80 ml @ 0.5 MCG/KG/HR 5. 865 mls/hr IV .Q17H4M [place] Rx#:[id number] propofoL 1,000 mg In 286.142 200 100.000 Empty Bag 1 bag @ 30 MCG/ KG/MIN 26.37 mls/hr IV . Q3H48M [place] Rx#:[id number] Tube Feeding 10 Blood Product 0 Unit 0 Other 30 Output: Urine 655 525 365 Other: Voiding Method Indwelling Catheter Indwelling Catheter # Bowel Movements 0 1 ABP, PAP, CO, CI - Last Documented Arterial Blood Pressure 111/51 - Exam GENERAL DESCRIPTION: An elderly male intubated on the vent RESPIRATORY SYSTEM: Unlabored breathing , decreased breath sounds at bases HEART: S1 S2 regular rate and rhythm , ABDOMEN: Soft , no tenderness EXTREMITIES: No edema feet - Labs CBC & Chem 7: 10/20/23 04:24 10/20/23 04:24 Labs: Abnormal Lab Results - Last 24 Hours (Table) 10/16/23 10/19/23 10/19/23 Range/Units 17:40 15:00 15:00 WBC (3.8-10.6) k/uL RBC (4.30-5.90) m/uL Hgb (13.0-17.5) gm/dL Hct (39.0-53.0) % RDW (11.5-15.5) % Plt Count (150-450) k/uL Neutrophils # (Manual) (1.3-7.7) k/uL Monocytes # (Manual) (0-1.0) k/uL Metamyelocytes # (Man) (0) k/uL Myelocytes # (Manual) (0) k/uL Nucleated RBCs (0-0) /100 WBC Fibrinogen 504 H (200-500) mg/dL ABG Total CO2 (19-24) mmol/L Sodium 133 L (137-145) mmol/L BUN 70 H (9-20) mg/dL Creatinine 2.52 H (0.66-1.25) mg/dL Glucose 110 H (74-99) mg/dL POC Glucose (mg/dL) (70-110) mg/dL Calcium 7.0 L (8.4-10.2) mg/dL AST (17-59) U/L ALT (4-49) U/L Lactate Dehydrogenase 1089 H (120-246) U/L Total Protein (6.3-8.2) g/dL Albumin (3.5-5.0) g/dL Procalcitonin (0.02-0.09) ng/mL Crossmatch See Detail 10/19/23 10/19/23 10/19/23 Range/Units 15:00 15:00 15:48 WBC 19.3 H (3.8-10.6) k/uL RBC 2.39 L (4.30-5.90) m/uL Hgb 7.4 L (13.0-17.5) gm/dL Hct 22.2 L (39.0-53.0) % RDW (11.5-15.5) % Plt Count 94 L (150-450) k/uL Neutrophils # (Manual) (1.3-7.7) k/uL Monocytes # (Manual) (0-1.0) k/uL Metamyelocytes # (Man) (0) k/uL Myelocytes # (Manual) (0) k/uL Nucleated RBCs (0-0) /100 WBC Fibrinogen (200-500) mg/dL ABG Total CO2 (19-24) mmol/L Sodium (137-145) mmol/L BUN (9-20) mg/dL Creatinine (0.66-1.25) mg/dL Glucose (74-99) mg/dL POC Glucose (mg/dL) 127 H (70-110) mg/dL Calcium (8.4-10.2) mg/dL AST (17-59) U/L ALT (4-49) U/L Lactate Dehydrogenase (120-246) U/L Total Protein (6.3-8.2) g/dL Albumin (3.5-5.0) g/dL Procalcitonin 2.01 H (0.02-0.09) ng/mL Crossmatch 10/19/23 10/20/23 10/20/23 Range/Units 22:05 00:12 01:34 WBC 17.8 H (3.8-10.6) k/uL RBC 2.25 L (4.30-5.90) m/uL Hgb 7.1 L (13.0-17.5) gm/dL Hct 20.9 L (39.0-53.0) % RDW 15.7 H (11.5-15.5) % Plt Count 90 L (150-450) k/uL Neutrophils # (Manual) 14.42 H (1.3-7.7) k/uL Monocytes # (Manual) (0-1.0) k/uL Metamyelocytes # (Man) 0.18 H (0) k/uL Myelocytes # (Manual) (0) k/uL Nucleated RBCs 1 H (0-0) /100 WBC Fibrinogen (200-500) mg/dL ABG Total CO2 (19-24) mmol/L Sodium (137-145) mmol/L BUN (9-20) mg/dL Creatinine (0.66-1.25) mg/dL Glucose (74-99) mg/dL POC Glucose (mg/dL) 118 H 125 H (70-110) mg/dL Calcium (8.4-10.2) mg/dL AST (17-59) U/L ALT (4-49) U/L Lactate Dehydrogenase (120-246) U/L Total Protein (6.3-8.2) g/dL Albumin (3.5-5.0) g/dL Procalcitonin (0.02-0.09) ng/mL Crossmatch 10/20/23 10/20/23 10/20/23 Range/Units 04:17 04:24 04:24 WBC 17.3 H (3.8-10.6) k/uL RBC 2.19 L (4.30-5.90) m/uL Hgb 6.9 L* (13.0-17.5) gm/dL Hct 20.5 L (39.0-53.0) % RDW 16.0 H (11.5-15.5) % Plt Count 94 L (150-450) k/uL Neutrophils # (Manual) 11.00 H (1.3-7.7) k/uL Monocytes # (Manual) 1.90 H (0-1.0) k/uL Metamyelocytes # (Man) 1.04 H (0) k/uL Myelocytes # (Manual) 0.52 H (0) k/uL Nucleated RBCs (0-0) /100 WBC Fibrinogen (200-500) mg/dL ABG Total CO2 (19-24) mmol/L Sodium 133 L (137-145) mmol/L BUN 73 H (9-20) mg/dL Creatinine 2.40 H (0.66-1.25) mg/dL Glucose (74-99) mg/dL POC Glucose (mg/dL) 118 H (70-110) mg/dL Calcium 7.0 L (8.4-10.2) mg/dL AST 157 H (17-59) U/L ALT 108 H (4-49) U/L Lactate Dehydrogenase (120-246) U/L Total Protein 4.4 L (6.3-8.2) g/dL Albumin 1.9 L (3.5-5.0) g/dL Procalcitonin (0.02-0.09) ng/mL Crossmatch 10/20/23 10/20/23 10/20/23 Range/Units 05:25 07:42 10:16 WBC (3.8-10.6) k/uL RBC (4.30-5.90) m/uL Hgb (13.0-17.5) gm/dL Hct (39.0-53.0) % RDW (11.5-15.5) % Plt Count (150-450) k/uL Neutrophils # (Manual) (1.3-7.7) k/uL Monocytes # (Manual) (0-1.0) k/uL Metamyelocytes # (Man) (0) k/uL Myelocytes # (Manual) (0) k/uL Nucleated RBCs (0-0) /100 WBC Fibrinogen (200-500) mg/dL ABG Total CO2 26 H (19-24) mmol/L Sodium (137-145) mmol/L BUN (9-20) mg/dL Creatinine (0.66-1.25) mg/dL Glucose (74-99) mg/dL POC Glucose (mg/dL) 121 H (70-110) mg/dL Calcium (8.4-10.2) mg/dL AST (17-59) U/L ALT (4-49) U/L Lactate Dehydrogenase (120-246) U/L Total Protein (6.3-8.2) g/dL Albumin (3.5-5.0) g/dL Procalcitonin (0.02-0.09) ng/mL Crossmatch See Detail 10/20/23 Range/Units 11:56 WBC (3.8-10.6) k/uL RBC (4.30-5.90) m/uL Hgb (13.0-17.5) gm/dL Hct (39.0-53.0) % RDW (11.5-15.5) % Plt Count (150-450) k/uL Neutrophils # (Manual) (1.3-7.7) k/uL Monocytes # (Manual) (0-1.0) k/uL Metamyelocytes # (Man) (0) k/uL Myelocytes # (Manual) (0) k/uL Nucleated RBCs (0-0) /100 WBC Fibrinogen (200-500) mg/dL ABG Total CO2 (19-24) mmol/L Sodium (137-145) mmol/L BUN (9-20) mg/dL Creatinine (0.66-1.25) mg/dL Glucose (74-99) mg/dL POC Glucose (mg/dL) 120 H (70-110) mg/dL Calcium (8.4-10.2) mg/dL AST (17-59) U/L ALT (4-49) U/L Lactate Dehydrogenase (120-246) U/L Total Protein (6.3-8.2) g/dL Albumin (3.5-5.0) g/dL Procalcitonin (0.02-0.09) ng/mL Crossmatch Assessment and Plan (1) COVID-19 Current Visit: Yes Status: Acute Code(s): U07.1 - COVID-19 SNOMED Code(s): 391205979 (2) Sepsis Current Visit: Yes Status: Acute Code(s): A41.9 - SEPSIS, UNSPECIFIED ORGANISM SNOMED Code(s): 60096677 (3) Pneumonia Current Visit: Yes Status: Acute Code(s): J18.9 - PNEUMONIA, UNSPECIFIED ORGANISM SNOMED Code(s): 613440602 (4) Penicillin allergy Current Visit: Yes Status: Acute Code(s): Z88.0 - ALLERGY STATUS TO PENICILLIN SNOMED Code(s): 63674156 (5) Thrush, oral Current Visit: Yes Status: Acute Code(s): B37.0 - CANDIDAL STOMATITIS SNOMED Code(s): 59659530 Plan: 1patient did have significant changes in clinical condition he did have a cardiac arrest on 10/14/2023 Patient Was Taken to the [facility] status post PTCA and stenting x 5 patient did have a new fever and is requiring pressor support 2- blood cultures and sputum for Gram stain culture are currently pending 3-patient did have resolution of his fever and white count is trending down, cultures have been negative for any MRSA we will discontinue vancomycin keeping in mind his kidney function however continue with the meropenem and monitor his clinical course closely Dictation was produced using [employer] dictation software. please excuse any grammatical, word or spelling errors.
--- NOTE | 2023-10-20 13:09 | P.PN ---
Subjective Progress Note Date: 10/20/23 CHIEF COMPLAINT: Anemia HISTORY OF PRESENT ILLNESS: Patient remains in the ICU intubated and sedated. Impella was discontinued and status post aspiration of thrombectomy by cardiology service. Patient had black tarry stool last night and this morning. Hemoglobin did drop from 7.4-6.9 and he is receiving a unit of blood. Platelets 94 WBC is down from 19-17. Afebrile PHYSICAL EXAM: VITAL SIGNS: Reviewed. GENERAL: no acute distress. ABDOMEN: Soft. Nondistended. Nontender. NEUROLOGIC: Intubated ASSESSMENT: 1. Acute GI bleed with maroon stools 2. Acute blood loss anemia 3. Cardiac arrest status post heart catheterization with 5 stents PLAN: -Recommend EGD when medically stable -Agree with blood transfusion -Continue ICU management -Continue to monitor for signs and symptoms of bleeding -Continue to monitor hemoglobin -Continue Protonix Physician [employer] note has been reviewed by physician. Signing provider agrees with the documented findings, assessment, and plan of care. Objective - Vital Signs Vital signs: Vital Signs Temp 98.6 F 10/20/23 12:16 Pulse 80 10/20/23 12:16 Resp 26 H 10/20/23 12:16 BP 101/58 10/20/23 12:16 Pulse Ox 97 10/20/23 12:16 FiO2 50 10/20/23 11:30 Intake & Output 10/19/23 10/20/23 10/20/23 18:59 06:59 18:59 Intake Total 7723.354 0599.306 675.858 Output Total 655 525 365 Balance 427.142 530.306 310.858 Weight 121.5 kg 121.5 kg Intake: IV 696 547 99.9 A-line 66 12 Invasive Line 8 30 10 Meropenem 1 gm In Sodium 100 100 99.9 Chloride 0.9% 100 ml @ 33 .3 mls/hr IVPB Q8HR [place] Rx#:[id number] Sodium Chloride 0.9% 1, 375 000 ml In Empty Bag 1 bag @ 75 mls/hr IV .[id number] [place] Rx#:[id number] Vancomycin 1,750 mg In 500 Sodium Chloride 0.9% 500 ml 500 ml @ 167 mls/hr IVPB Q24HR [place] Rx#: [id number] Intake, IV Titration 386.142 508.306 535.958 Amount Norepinephrine 4 mg In 0 108.306 9.761 Sodium Chloride 0.9% 250 ml @ 0.03 MCG/KG/MIN 13. 945 mls/hr IV .[id number] [place] Rx#:[id number] Potassium Chloride 10 meq 400 In Water For Injection 1 100ml.bag @ 100 mls/hr IVPB Q1H [place] Rx#: [id number] fentaNYL (PF). 1,000 mcg 100.000 200 26.197 In Sodium Chloride 0.9% 80 ml @ 0.5 MCG/KG/HR 5. 865 mls/hr IV .Q17H4M [place] Rx#:[id number] propofoL 1,000 mg In 286.142 200 100.000 Empty Bag 1 bag @ 30 MCG/ KG/MIN 26.37 mls/hr IV . Q3H48M [place] Rx#:[id number] Tube Feeding 10 Blood Product 0 Unit 0 Other 30 Output: Urine 655 525 365 Other: Voiding Method Indwelling Catheter Indwelling Catheter # Bowel Movements 0 1 ABP, PAP, CO, CI - Last Documented Arterial Blood Pressure 111/51 - Labs CBC & Chem 7: 10/20/23 04:24 10/20/23 04:24 Labs: Abnormal Lab Results - Last 24 Hours (Table) 10/16/23 10/19/23 10/19/23 Range/Units 17:40 15:00 15:00 WBC (3.8-10.6) k/uL RBC (4.30-5.90) m/uL Hgb (13.0-17.5) gm/dL Hct (39.0-53.0) % RDW (11.5-15.5) % Plt Count (150-450) k/uL Neutrophils # (Manual) (1.3-7.7) k/uL Monocytes # (Manual) (0-1.0) k/uL Metamyelocytes # (Man) (0) k/uL Myelocytes # (Manual) (0) k/uL Nucleated RBCs (0-0) /100 WBC Fibrinogen 504 H (200-500) mg/dL ABG Total CO2 (19-24) mmol/L Sodium 133 L (137-145) mmol/L BUN 70 H (9-20) mg/dL Creatinine 2.52 H (0.66-1.25) mg/dL Glucose 110 H (74-99) mg/dL POC Glucose (mg/dL) (70-110) mg/dL Calcium 7.0 L (8.4-10.2) mg/dL AST (17-59) U/L ALT (4-49) U/L Lactate Dehydrogenase 1089 H (120-246) U/L Total Protein (6.3-8.2) g/dL Albumin (3.5-5.0) g/dL Procalcitonin (0.02-0.09) ng/mL Crossmatch See Detail 10/19/23 10/19/23 10/19/23 Range/Units 15:00 15:00 15:48 WBC 19.3 H (3.8-10.6) k/uL RBC 2.39 L (4.30-5.90) m/uL Hgb 7.4 L (13.0-17.5) gm/dL Hct 22.2 L (39.0-53.0) % RDW (11.5-15.5) % Plt Count 94 L (150-450) k/uL Neutrophils # (Manual) (1.3-7.7) k/uL Monocytes # (Manual) (0-1.0) k/uL Metamyelocytes # (Man) (0) k/uL Myelocytes # (Manual) (0) k/uL Nucleated RBCs (0-0) /100 WBC Fibrinogen (200-500) mg/dL ABG Total CO2 (19-24) mmol/L Sodium (137-145) mmol/L BUN (9-20) mg/dL Creatinine (0.66-1.25) mg/dL Glucose (74-99) mg/dL POC Glucose (mg/dL) 127 H (70-110) mg/dL Calcium (8.4-10.2) mg/dL AST (17-59) U/L ALT (4-49) U/L Lactate Dehydrogenase (120-246) U/L Total Protein (6.3-8.2) g/dL Albumin (3.5-5.0) g/dL Procalcitonin 2.01 H (0.02-0.09) ng/mL Crossmatch 10/19/23 10/20/23 10/20/23 Range/Units 22:05 00:12 01:34 WBC 17.8 H (3.8-10.6) k/uL RBC 2.25 L (4.30-5.90) m/uL Hgb 7.1 L (13.0-17.5) gm/dL Hct 20.9 L (39.0-53.0) % RDW 15.7 H (11.5-15.5) % Plt Count 90 L (150-450) k/uL Neutrophils # (Manual) 14.42 H (1.3-7.7) k/uL Monocytes # (Manual) (0-1.0) k/uL Metamyelocytes # (Man) 0.18 H (0) k/uL Myelocytes # (Manual) (0) k/uL Nucleated RBCs 1 H (0-0) /100 WBC Fibrinogen (200-500) mg/dL ABG Total CO2 (19-24) mmol/L Sodium (137-145) mmol/L BUN (9-20) mg/dL Creatinine (0.66-1.25) mg/dL Glucose (74-99) mg/dL POC Glucose (mg/dL) 118 H 125 H (70-110) mg/dL Calcium (8.4-10.2) mg/dL AST (17-59) U/L ALT (4-49) U/L Lactate Dehydrogenase (120-246) U/L Total Protein (6.3-8.2) g/dL Albumin (3.5-5.0) g/dL Procalcitonin (0.02-0.09) ng/mL Crossmatch 10/20/23 10/20/23 10/20/23 Range/Units 04:17 04:24 04:24 WBC 17.3 H (3.8-10.6) k/uL RBC 2.19 L (4.30-5.90) m/uL Hgb 6.9 L* (13.0-17.5) gm/dL Hct 20.5 L (39.0-53.0) % RDW 16.0 H (11.5-15.5) % Plt Count 94 L (150-450) k/uL Neutrophils # (Manual) 11.00 H (1.3-7.7) k/uL Monocytes # (Manual) 1.90 H (0-1.0) k/uL Metamyelocytes # (Man) 1.04 H (0) k/uL Myelocytes # (Manual) 0.52 H (0) k/uL Nucleated RBCs (0-0) /100 WBC Fibrinogen (200-500) mg/dL ABG Total CO2 (19-24) mmol/L Sodium 133 L (137-145) mmol/L BUN 73 H (9-20) mg/dL Creatinine 2.40 H (0.66-1.25) mg/dL Glucose (74-99) mg/dL POC Glucose (mg/dL) 118 H (70-110) mg/dL Calcium 7.0 L (8.4-10.2) mg/dL AST 157 H (17-59) U/L ALT 108 H (4-49) U/L Lactate Dehydrogenase (120-246) U/L Total Protein 4.4 L (6.3-8.2) g/dL Albumin 1.9 L (3.5-5.0) g/dL Procalcitonin (0.02-0.09) ng/mL Crossmatch 10/20/23 10/20/23 10/20/23 Range/Units 05:25 07:42 10:16 WBC (3.8-10.6) k/uL RBC (4.30-5.90) m/uL Hgb (13.0-17.5) gm/dL Hct (39.0-53.0) % RDW (11.5-15.5) % Plt Count (150-450) k/uL Neutrophils # (Manual) (1.3-7.7) k/uL Monocytes # (Manual) (0-1.0) k/uL Metamyelocytes # (Man) (0) k/uL Myelocytes # (Manual) (0) k/uL Nucleated RBCs (0-0) /100 WBC Fibrinogen (200-500) mg/dL ABG Total CO2 26 H (19-24) mmol/L Sodium (137-145) mmol/L BUN (9-20) mg/dL Creatinine (0.66-1.25) mg/dL Glucose (74-99) mg/dL POC Glucose (mg/dL) 121 H (70-110) mg/dL Calcium (8.4-10.2) mg/dL AST (17-59) U/L ALT (4-49) U/L Lactate Dehydrogenase (120-246) U/L Total Protein (6.3-8.2) g/dL Albumin (3.5-5.0) g/dL Procalcitonin (0.02-0.09) ng/mL Crossmatch See Detail 10/20/23 Range/Units 11:56 WBC (3.8-10.6) k/uL RBC (4.30-5.90) m/uL Hgb (13.0-17.5) gm/dL Hct (39.0-53.0) % RDW (11.5-15.5) % Plt Count (150-450) k/uL Neutrophils # (Manual) (1.3-7.7) k/uL Monocytes # (Manual) (0-1.0) k/uL Metamyelocytes # (Man) (0) k/uL Myelocytes # (Manual) (0) k/uL Nucleated RBCs (0-0) /100 WBC Fibrinogen (200-500) mg/dL ABG Total CO2 (19-24) mmol/L Sodium (137-145) mmol/L BUN (9-20) mg/dL Creatinine (0.66-1.25) mg/dL Glucose (74-99) mg/dL POC Glucose (mg/dL) 120 H (70-110) mg/dL Calcium (8.4-10.2) mg/dL AST (17-59) U/L ALT (4-49) U/L Lactate Dehydrogenase (120-246) U/L Total Protein (6.3-8.2) g/dL Albumin (3.5-5.0) g/dL Procalcitonin (0.02-0.09) ng/mL Crossmatch
--- NOTE | 2023-10-20 13:17 | P.PN ---
Subjective Progress Note Date: 10/20/23 Principal diagnosis: Cardiac arrest and cardiogenic shock This is a 77-year-old male patient with a history of hypertension, seizure disorder, thyroid disorder, former smoker. On September 27, 2023 the patient had gotten up to go the bathroom and slumped onto the ground. He had been reportedly laying on the ground for several hours by family were attempting to get in helping him get up but he was unable to support himself. He also had trouble with urinary incontinence. EMS was called and he was brought here for evaluation. CT scan of the brain revealed no acute intracranial hemorrhage, midline shift or mass effect. EKG revealed sinus rhythm with no significant ST or T wave abnormalities. White count 14.9. Hemoglobin 12.9. Platelets 146. Sodium 126. Potassium 3.9. Bicarb 26. BUN 15. Creatinine 0.68. Glucose 152. AST 148. ALT 43. Creatinine kinase 2283. He did test positive for COVID-19 infection. His initial sodium level was 118. BUN of 24 and a creatinine of 1.26. He had been seen by nephrology, urology and infectious disease. A chest x-ray was done today September 30, 2023 that revealed an elevated right hemidiaphragm and we are consulted for the same. He was sent for a sniff test however the patient was unable to perform the appropriate maneuvers due to overall condition. He is seen on consultation on the selective care unit. He is currently resting in bed. Difficult to arouse but arousable. He is on a nonrebreather mask with O2 saturation of 90%. Currently afebrile. Hemodynamically stable. He has been initiated on Decadron. Antibiotics in the form of cefepime. Saline at 50 MLS per hour. Patient was evaluated today on 10/01/2023, more awake today, more responsive, seems to be more alert, and remains on a nonrebreather mask which I have recommended to transition to high flow nasal cannula. Patient did transition to 10 L high flow nasal cannula and O2 saturation was ranging between 92 up to 96% definitely better today compared to the last couple of days. Still planning to repeat his sniff test to evaluate for right hemidiaphragm paralysis. Procalcitonin level came back elevated at 0.43, patient remains on antibiotics for presumptive right lower lobe pneumonia. WBC count today 13.9 hemoglobin 13.0.Basic metabolic profile is relatively normal. Reevaluated today on 10/02/2023, patient is on 10 L high flow nasal cannula, doing better, breathing easier, O2 saturation is in the low 90s, patient continues to have diminished breath sounds at the right base, and I believe the patient has right hemidiaphragm paralysis with right lower lobe atelectasis, possible underlying pneumonia, but I feel clinically this is not the picture. At any rate the patient is supposed to have a sniff test tomorrow, may even have to consider a CT of the chest to evaluate the right lower lobe further. Based on the sniff test, further recommendations will follow. In the meantime patient is gradually improving, feeling better, breathing easier and definitely his neurological status is significantly improved now compared to how he was few days ago WBC count is 10.2 hemoglobin is 12.3, sodium is up to 130, potassium 3.1 renal profile is normal procalcitonin level on this patient was 0.43, hence he was empirically placed on antibiotics for presumptive right lower lobe pneumonia 10/16/2023, the patient remains critically ill intubated on the mechanical ventilator in the intensive care unit. He is postcardiac arrest and post emergent cardiac catheterization and a total of 5 stents were inserted and the patient was also given an Impella for hemodynamic support which is currently at p 7 augmentation with a flow of 3.2 L/min. The patient remains essentially unresponsive. He was given a brief sedation holiday yesterday to assess mentation. Immediately, the patient became restless, asynchronous with mechanical ventilator, and tachycardic and based on his underlying instability, propofol was restarted and which is currently running at 50 mcg/kg/min. He remains on assist-control mode of mechanical ventilation at the rate of 26, tidal volume of 450, FiO2 is at 60% with a PEEP of 15. Chest x-ray shows no major interval change. Blood gas from this morning shows a pH of 7.46 with a pCO2 of 44 and pO2 of 129. Hemodynamically, he remains unstable and hypotensive. Significant support still being provided to the Impella. Unable to tolerate lower levels of augmentation due to significant hypotension. While on P7, the patient is maintaining a mean arterial pressure of 70 and the patient is also on norepinephrine running at 0.02 mcg/kg/min. Cardiac rhythm is sinus tachycardia. No further episodes of ventricular arrhythmias. The patient was taken off the amiodarone and is also off the lidocaine drip. Urine output has dropped considerably and the patient also has developed an acute kidney injury. Creatinine is up to 1.9 with a BUN of 43. He is spiking temperature and his Tmax is 103.1. He remains on the same antibiotic coverage and he is currently on IV cefepime. Another complication is development of an upper GI bleed. Since yesterday afternoon, the patient had dark bloody output from his NG tube and a total amount has been in the order of 400 cc since yesterday. Based on his underlying GI bleed, IV heparin was discontinued. He remains on aspirin and Brilinta. He is off the Aggrastat for now. The hemoglobin has dropped down to 8.7. He remains in normal sinus rate of 75 cc an hour. Norepinephrine is running at 0.02 mcg/kg/min. IV heparin is discontinued. Rest of the blood work shows a WBC count of 37.6, hemoglobin 7.7 and a platelet count of 198. The serum bicarb is at 23 with a sodium level of 129. Blood sugar is at 188. Troponin peaked at 282. CPK was at 01/19/2023. He remains NPO. An echocardiogram was done yesterday and the patient was found to have significant impairment of the LV function with an ejection fraction of around 20%. Contacted the family, unable to get a hold of any family members. The family was supposed to arrive into the hospital to my understanding. Nevertheless, nobody showed up and we have placed multiple phone calls without getting any answers back. He is postcardiac arrest. Please refer to details of the cardiac intervention that was done as stated earlier. Patient was reevaluated today on 10/17/2023, remains in the ICU, intubated and mechanically ventilated. Patient is on assist-control rate of 26 tidal volume 450 FiO2 60% PEEP of 15 EGD showed a pO2 of 92 pCO2 43 pH of 7.48. No changes were made in his present ventilator settings. Patient continues to have Impella in place, it is at P7 augmentation, nonetheless, patient remains marginal at best. Ejection fraction is 20%. Patient is on propofol at 50 mcg/kg/min, he is also on IV fluid at 75 cc/h. Remains on Merrem and vancomycin, patient does not seem to be fully sedated, seems to be asynchronous with the ventilator today, hence I recommended increasing propofol up to 75 mcg/kg/min, and do Dilaudid as needed WBC count is 25.6 hemoglobin is 8.2. Fibrinogen is 521Basic metabolic profile is normal BUN is 53 creatinine 1.57. Chest x-ray showed patchy perihilar infiltrates, not much different from the chest x-ray prior. Looking back at the note, patient had his cardiac arrest on 10/14/2023, he was taken to the cardiac cath, underwent PTCA and stenting done. And he required intermittently pressor support/norepinephrine. Empirically the patient is on Merrem and vancomycin, patient has allergy to penicillin. Patient is being followed by infectious disease patient is off heparin. He is not requiring norepinephrine today, blood pressure is rather marginal. Output today is 3.3. CODE STATUS was changed to DNR CODE STATUS. The overall prognostic picture seems to be extremely poor Reevaluate 10/18/2023, patient remains in the ICU, intubated and mechanically ventilated. Patient is on assist-control rate of 26 tidal volume 450 which I increased up to 500, FiO2 60% PEEP of 15 ABG showed a pO2 of 90 pCO2 54 pH of 7.33 plan is to cut down the FiO2 to 50% and eventually address the PEEP. Patient continues to have the Impella in place, and it is at P7 augmentation. Patient continues to do poorly, he is requiring significant amount of drips including norepinephrine at 0.08 mcg/kg/min, Dobutrex at 2.5 mcg/kg/min, he is also on propofol 70 mcg/kg/min Fentanyl at 1 mcg/kg/h. Patient is spiking fever with Tmax of 102.5, continues to have leukocytosis with WBC count of 26.3. He has very poor and marginal urine output, patient remains on Flagyl vancomycin and Merrem. Yesterday I had a long discussion and updated family on his condition, and still not considering comfort care measures. Although the prognosis is extremely poor, and this was discussed with cardiology today. Patient dropped his hemoglobin today down to 6.3, patient will require blood transfusion, WBC count is 22.2. Platelets are 106 renal functioning is worsening BUN is 57 creatinine now is up to 2.18, and this is most likely acute tubular necrosis related to hypotension and cardiorenal in nature. Chest x-ray noted to have small area of focal infiltrate in the right midlung zone, endotracheal tube was noted to be high in the trachea and this was advanced down by 2 cm Patient was reevaluated today on 10/19/2023, remains in the ICU, intubated and mechanically ventilated, patient remains on assist-control rate of 26 tidal volume 500, FiO2 50%, and PEEP of 15, basically about the same, he is still very marginal at best, BG is marginal showed a pO2 of 52 pCO2 41 pH of 7.41, hence no changes made in the ventilator settings. Remains at P6 augmentation on his Impella. This is DNR at this point, but family is not willing to go to comfort care at this point yet. Still on norepinephrine at 0.06 mcg/kg/min still on Dobutrex at 5 mcg/kg/min, his off epinephrine, vasopressin at 0.04, he is on propofol and remains on fentanyl. Pressure today is slightly better, chest x- ray is basically the same, no major change, continues to have right hemidiaphragm elevation, and infiltrate in the right upper lobe area antibiotics are the same including Flagyl vancomycin and Merrem. BC count remains high 19.7 hemoglobin is 7.3. Continues to have intermittent episodes of GI bleeding remains on hold. Electrolytes are normal however his renal profile is worsening with a BUN of 69 creatinine 2.41. Overall I do not believe there is a significant improvement in this man's condition, I believe overall he is basically the same, and prognosis remains extremely poor and guarded Patient was reevaluated today on 10/20/2023, remains in the ICU, intubated and mechanically ventilated. His Impella was removed yesterday, patient required aspiration thrombectomy from the left external iliac artery using pnumbra device, done by Dr. Carreon yesterday, he also underwent stenting of the left external iliac artery. Today the patient is back to full code, family ananya rebolledo changed his CODE STATUS, and he remains full code for now. He is intubated on mechanical ventilation assist-control rate of 26 tidal volume 500 FiO2 50% and PEEP was 12 and I cut it down to 10 ABG showed a pO2 of 88 pCO2 40 pH of 7.39. Hemoglobin is low at 6.9, patient will receive a unit of packed RBCs today. Hemodynamics the patient is off norepinephrine, he is on propofol at 35 mcg/kg/min he is also on fentanyl at 1.5 mcg/kg/h. Today the patient will be given a sedation holiday, and I will try to address at least mental status. Antibiotics hughes remains on Merrem. Continues to have GI bleeding, and that is being followed by general surgery, however the patient is not a candidate for any intervention at this point considering his overall cardiac status. Nutrition hughes patient is on trickle feeds. WBC count today is 17.3 hemoglobin is 6.9. Platelets are 94,000. Basic metabolic profile is normal BUN however is 73 creatinine 2.40 slightly improved compared to yesterday. Sputum cultures have been negative, blood cultures have been negative from 10/14 chest x-ray continues to show right lower lobe atelectasis/consolidation and right hemidiaphragm elevation highly suspicious for right hemidiaphragm paralysis based on the chronicity of the problem Objective - Vital Signs Vital signs: Vital Signs Temp 98.0 F 10/20/23 12:46 Pulse 85 10/20/23 13:00 Resp 29 H 10/20/23 13:00 BP 113/58 10/20/23 13:00 Pulse Ox 96 10/20/23 13:00 FiO2 50 10/20/23 12:00 Intake & Output 10/19/23 10/20/23 10/20/23 18:59 06:59 18:59 Intake Total 0221.975 8086.306 692.528 Output Total 655 525 460 Balance 427.142 530.306 232.528 Weight 121.5 kg 121.5 kg Intake: IV 696 547 99.9 A-line 66 12 Invasive Line 8 30 10 Meropenem 1 gm In Sodium 100 100 99.9 Chloride 0.9% 100 ml @ 33 .3 mls/hr IVPB Q8HR [place] Rx#:[id number] Sodium Chloride 0.9% 1, 375 000 ml In Empty Bag 1 bag @ 75 mls/hr IV .[id number] [place] Rx#:[id number] Vancomycin 1,750 mg In 500 Sodium Chloride 0.9% 500 ml 500 ml @ 167 mls/hr IVPB Q24HR [place] Rx#: [id number] Intake, IV Titration 386.142 508.306 542.628 Amount Norepinephrine 4 mg In 0 108.306 9.761 Sodium Chloride 0.9% 250 ml @ 0.03 MCG/KG/MIN 13. 945 mls/hr IV .[id number] [place] Rx#:[id number] Potassium Chloride 10 meq 400 In Water For Injection 1 100ml.bag @ 100 mls/hr IVPB Q1H [place] Rx#: [id number] fentaNYL (PF). 1,000 mcg 100.000 200 30.596 In Sodium Chloride 0.9% 80 ml @ 0.5 MCG/KG/HR 5. 865 mls/hr IV .[id number] [place] Rx#:[id number] propofoL 1,000 mg In 286.142 200 102.271 Empty Bag 1 bag @ 30 MCG/ KG/MIN 26.37 mls/hr IV . Q3H48M [place] Rx#:[id number] Tube Feeding 20 Blood Product 0 Unit 0 Other 30 Output: Urine 655 525 460 Other: Voiding Method Indwelling Catheter Indwelling Catheter # Bowel Movements 0 1 ABP, PAP, CO, CI - Last Documented Arterial Blood Pressure 111/51 - Exam General: Reveals 77-year-old white male obese, intubated mechanically ventilated, sedated. Patient is on fentanyl and on propofol which will be placed on hold today for assessment of mental status Head: Atraumatic normocephalic. Skin: No rashes. Eye: Pupils are equal, round and reactive to light,; there is normal conjunctiva bilaterally. Ears, nose, mouth and throat: There are moist mucous membranes and no oral lesions. Tracheal tube is intact, orogastric tube is intact. Neck: The neck is supple, there is no tenderness or JVD. Cardiovascular: Send S1-S2, no S3 gallop, 2/6 systolic murmur throughout the precordium Respiratory: Distant breath sound bilaterally no crackles rhonchi or wheezes Gastrointestinal: Obese, soft, nontender, no megaly, no rebound, no guarding. Musculoskeletal: No deformities noted, extremities showed no clubbing, 3+ bipedal edema, no cyanosis Neurological: Cannot assess, Psychiatric: Could not assess - Labs CBC & Chem 7: 10/20/23 04:24 10/20/23 04:24 Labs: Abnormal Lab Results - Last 24 Hours (Table) 10/16/23 10/19/23 10/19/23 Range/Units 17:40 15:00 15:00 WBC (3.8-10.6) k/uL RBC (4.30-5.90) m/uL Hgb (13.0-17.5) gm/dL Hct (39.0-53.0) % RDW (11.5-15.5) % Plt Count (150-450) k/uL Neutrophils # (Manual) (1.3-7.7) k/uL Monocytes # (Manual) (0-1.0) k/uL Metamyelocytes # (Man) (0) k/uL Myelocytes # (Manual) (0) k/uL Nucleated RBCs (0-0) /100 WBC Fibrinogen 504 H (200-500) mg/dL ABG Total CO2 (19-24) mmol/L Sodium 133 L (137-145) mmol/L BUN 70 H (9-20) mg/dL Creatinine 2.52 H (0.66-1.25) mg/dL Glucose 110 H (74-99) mg/dL POC Glucose (mg/dL) (70-110) mg/dL Calcium 7.0 L (8.4-10.2) mg/dL AST (17-59) U/L ALT (4-49) U/L Lactate Dehydrogenase 1089 H (120-246) U/L Total Protein (6.3-8.2) g/dL Albumin (3.5-5.0) g/dL Procalcitonin (0.02-0.09) ng/mL Crossmatch See Detail 10/19/23 10/19/23 10/19/23 Range/Units 15:00 15:00 15:48 WBC 19.3 H (3.8-10.6) k/uL RBC 2.39 L (4.30-5.90) m/uL Hgb 7.4 L (13.0-17.5) gm/dL Hct 22.2 L (39.0-53.0) % RDW (11.5-15.5) % Plt Count 94 L (150-450) k/uL Neutrophils # (Manual) (1.3-7.7) k/uL Monocytes # (Manual) (0-1.0) k/uL Metamyelocytes # (Man) (0) k/uL Myelocytes # (Manual) (0) k/uL Nucleated RBCs (0-0) /100 WBC Fibrinogen (200-500) mg/dL ABG Total CO2 (19-24) mmol/L Sodium (137-145) mmol/L BUN (9-20) mg/dL Creatinine (0.66-1.25) mg/dL Glucose (74-99) mg/dL POC Glucose (mg/dL) 127 H (70-110) mg/dL Calcium (8.4-10.2) mg/dL AST (17-59) U/L ALT (4-49) U/L Lactate Dehydrogenase (120-246) U/L Total Protein (6.3-8.2) g/dL Albumin (3.5-5.0) g/dL Procalcitonin 2.01 H (0.02-0.09) ng/mL Crossmatch 10/19/23 10/20/23 10/20/23 Range/Units 22:05 00:12 01:34 WBC 17.8 H (3.8-10.6) k/uL RBC 2.25 L (4.30-5.90) m/uL Hgb 7.1 L (13.0-17.5) gm/dL Hct 20.9 L (39.0-53.0) % RDW 15.7 H (11.5-15.5) % Plt Count 90 L (150-450) k/uL Neutrophils # (Manual) 14.42 H (1.3-7.7) k/uL Monocytes # (Manual) (0-1.0) k/uL Metamyelocytes # (Man) 0.18 H (0) k/uL Myelocytes # (Manual) (0) k/uL Nucleated RBCs 1 H (0-0) /100 WBC Fibrinogen (200-500) mg/dL ABG Total CO2 (19-24) mmol/L Sodium (137-145) mmol/L BUN (9-20) mg/dL Creatinine (0.66-1.25) mg/dL Glucose (74-99) mg/dL POC Glucose (mg/dL) 118 H 125 H (70-110) mg/dL Calcium (8.4-10.2) mg/dL AST (17-59) U/L ALT (4-49) U/L Lactate Dehydrogenase (120-246) U/L Total Protein (6.3-8.2) g/dL Albumin (3.5-5.0) g/dL Procalcitonin (0.02-0.09) ng/mL Crossmatch 10/20/23 10/20/23 10/20/23 Range/Units 04:17 04:24 04:24 WBC 17.3 H (3.8-10.6) k/uL RBC 2.19 L (4.30-5.90) m/uL Hgb 6.9 L* (13.0-17.5) gm/dL Hct 20.5 L (39.0-53.0) % RDW 16.0 H (11.5-15.5) % Plt Count 94 L (150-450) k/uL Neutrophils # (Manual) 11.00 H (1.3-7.7) k/uL Monocytes # (Manual) 1.90 H (0-1.0) k/uL Metamyelocytes # (Man) 1.04 H (0) k/uL Myelocytes # (Manual) 0.52 H (0) k/uL Nucleated RBCs (0-0) /100 WBC Fibrinogen (200-500) mg/dL ABG Total CO2 (19-24) mmol/L Sodium 133 L (137-145) mmol/L BUN 73 H (9-20) mg/dL Creatinine 2.40 H (0.66-1.25) mg/dL Glucose (74-99) mg/dL POC Glucose (mg/dL) 118 H (70-110) mg/dL Calcium 7.0 L (8.4-10.2) mg/dL AST 157 H (17-59) U/L ALT 108 H (4-49) U/L Lactate Dehydrogenase (120-246) U/L Total Protein 4.4 L (6.3-8.2) g/dL Albumin 1.9 L (3.5-5.0) g/dL Procalcitonin (0.02-0.09) ng/mL Crossmatch 10/20/23 10/20/23 10/20/23 Range/Units 05:25 07:42 10:16 WBC (3.8-10.6) k/uL RBC (4.30-5.90) m/uL Hgb (13.0-17.5) gm/dL Hct (39.0-53.0) % RDW (11.5-15.5) % Plt Count (150-450) k/uL Neutrophils # (Manual) (1.3-7.7) k/uL Monocytes # (Manual) (0-1.0) k/uL Metamyelocytes # (Man) (0) k/uL Myelocytes # (Manual) (0) k/uL Nucleated RBCs (0-0) /100 WBC Fibrinogen (200-500) mg/dL ABG Total CO2 26 H (19-24) mmol/L Sodium (137-145) mmol/L BUN (9-20) mg/dL Creatinine (0.66-1.25) mg/dL Glucose (74-99) mg/dL POC Glucose (mg/dL) 121 H (70-110) mg/dL Calcium (8.4-10.2) mg/dL AST (17-59) U/L ALT (4-49) U/L Lactate Dehydrogenase (120-246) U/L Total Protein (6.3-8.2) g/dL Albumin (3.5-5.0) g/dL Procalcitonin (0.02-0.09) ng/mL Crossmatch See Detail 10/20/23 Range/Units 11:56 WBC (3.8-10.6) k/uL RBC (4.30-5.90) m/uL Hgb (13.0-17.5) gm/dL Hct (39.0-53.0) % RDW (11.5-15.5) % Plt Count (150-450) k/uL Neutrophils # (Manual) (1.3-7.7) k/uL Monocytes # (Manual) (0-1.0) k/uL Metamyelocytes # (Man) (0) k/uL Myelocytes # (Manual) (0) k/uL Nucleated RBCs (0-0) /100 WBC Fibrinogen (200-500) mg/dL ABG Total CO2 (19-24) mmol/L Sodium (137-145) mmol/L BUN (9-20) mg/dL Creatinine (0.66-1.25) mg/dL Glucose (74-99) mg/dL POC Glucose (mg/dL) 120 H (70-110) mg/dL Calcium (8.4-10.2) mg/dL AST (17-59) U/L ALT (4-49) U/L Lactate Dehydrogenase (120-246) U/L Total Protein (6.3-8.2) g/dL Albumin (3.5-5.0) g/dL Procalcitonin (0.02-0.09) ng/mL Crossmatch Assessment and Plan Assessment: Impression: Cardiac arrest with ventricular tachycardia and ventricular fibrillation, status post cardiac catheterization for acute lateral ST segment elevation myocardial infarction and the patient underwent emergent cardiac catheterization. The patient underwent a complicated coronary intervention requiring Impella for hemodynamic support, stenting of the left main, circumflex, proximal and mid RCA. A total of 5 stents were inserted. Currently, receiving Impella for hemodynamic support and norepinephrine, dobutamine, and the patient continues to have an Impella device in place which may have to be discontinued today Acute hypoxic respiratory failure secondary to cardiac arrest Ventricular tachycardia/VF, postacute ME Upper GI bleeding related to various antiplatelet agents and anticoagulation patient is now off heparin he is on aspirin and Plavix Acute blood loss anemia requiring transfusion Acute kidney injury, could be cardiorenal in nature. There are cardiomyopathy and LV dysfunction. Acute febrile illness, exact etiology is not clear patient is empirically on antibiotics chest x-ray is showing a limited infiltrate in the right midlung. Acute hypoxic metabolic encephalopathy History of COVID-19 pneumonia, recovering Right hemidiaphragm elevation possible paralysis History of seizure disorder History of hypothyroidism History of hypertension Ex-smoker Severe LV dysfunction with ejection fraction of 20% Status post removal of his Impella device and required aspiration thrombectomy from the left external iliac on 10/19/2023 Recommendation: Hold sedation and assess mental status today although patient is not ready for weaning Continue ventilatory support Continue hemodynamic support as felt to be necessary. Patient is now off pressors Continue nutritional support/enteral feeding Continue aspirin and Brilinta Continue antibiotics, as per ID Continue diuretics on a daily basis Patient remains critically ill, not ready for any weaning Will continue to follow. Critical care time is over 30 minutes Time with Patient: Greater than 30
[2023-10-20] MEDS: FUROSEMIDE 10 MG/ML 4 ML VIAL IV SCH (16:04)
[2023-10-20 16:06] LABS: Glucose,Whole Blood 135 mg/dL (70-110)
[2023-10-20 17:49] LABS: HCT 25.8 % (39.0-53.0); MCH 30.5 pg (25.0-35.0); MCHC 33.2 g/dL (31.0-37.0); MCV 91.9 fL (80.0-100.0); Mean Platelet Volume 10.4; Platelet Count 110 k/uL (150-450); RBC 2.81 m/uL (4.30-5.90); RDW 15.8 % (11.5-15.5); WBC 18.4 k/uL (3.8-10.6)
[2023-10-20 17:51] LABS: HGB 8.6 gm/dL (13.0-17.5)
[2023-10-20 17:57] LABS: African American GFR (CKD) 28 (>60 ml/min/1.73 sqM); Anion Gap 8 mmol/L; Blood Urea Nitrogen 70 mg/dL (9-20); Calcium 7.2 mg/dL (8.4-10.2); Carbon Dioxide 23 mmol/L (22-30); Chloride 104 mmol/L (98-107); Glucose 106 mg/dL (74-99); Non-African American GFR(CKD) 24 (>60 ml/min/1.73 sqM); Potassium 4.1 mmol/L (3.5-5.1); Sodium 135 mmol/L (137-145)
--- NOTE | 2023-10-20 19:27 | P.PN ---
Subjective Progress Note Date: 10/20/23 ACS This is a 77-year-old gentleman with history of hypertension and dyslipidemia and seizure disorder and thyroid disease and prior history of smoking. The patient was admitted to the hospital initially with a change in mental status after he fell in the bathroom at home. The patient lives with his grandson. We consulted to see the patient because of cardiac arrest with ventricular fibrillation/ventricular tachycardia where the patient subsequently received CPR according to the nurse taking care of him for about 12 hours and then he was intubated and he was brought to the intensive care unit. The history was taken from the chart because the patient was already intubated when he was seen in the intensive care unit. He was found on the floor by his family for several hours. He was weak. He attempted to get up but he could not. EMS was called and the patient was brought to the emergency department by ambulance. He underwent further investigation including CT scan of the brain which showed no acute abnormalities and EKG showed sinus mechanism with nonspecific ST and T wave abnormalities. Hemoglobin was within normal limits. Electrolytes were within normal limits beside hyponatremia. The chest x-ray showed no acute abnormalities beside elevated right hemidiaphragm. He was diagnosed with acute hypoxic respiratory failure and also he had recent coronavirus infection. During his hospital stay he had a cardiac arrest with V-fib. He was converted to normal sinus mechanism after he received CPR and received amiodarone and lidocaine. I did review the EKG when I I was called to see the patient and that showed lateral ST segment elevation myocardial infarction. STEMI code was called. The patient was brought to the cardiac Cancer [facility] immediately and he underwent an emergent heart catheterization and that revealed severe disease involving the ostial and proximal right coronary artery with occluded left circumflex appeared to be an acute occlusion. The lesion in the left circumflex was extremely complex and was very hard to cross. During the procedure he had another episode of cardiac arrest with pulseless electrical activities and we lost the floor in the left coronary system. The patient ended having stenting in the left main to LAD and stenting of the obtuse marginal branch and stenting of the right coronary artery and Impella CP was placed to support the pressure. Please refer to the procedure note for further details. The examination showed distant heart sounds with regular rhythm and soft nontender abdomen and diminished breathing sounds bilaterally. No edema was noted in the lower extremities October 15, 2023 The patient was seen and evaluated this morning. He continues to be intubated on mechanical ventilation. The chest x-ray was reviewed. He is off vasopressors but continues to be on norepinephrine which is in process to weaned from norepinephrine. He continues to be on heparin and Aggrastat. He is on dual antiplatelet therapy along with a statin. Hemodynamically he is overall slightly better. He has been maintaining normal sinus mechanism. From the cardiovascular standpoint of view I will continue the current medical regimen and switch the patient to oral amiodarone and DC lidocaine and stop Aggrastat at 18 hours. Apparently he cannot be on any beta-yazmin or FLORIN inhibitor at this point giving the low blood pressure. The examination is remarkable for regular rhythm with a distant heart sounds and diminished breathing sounds bilaterally and he does have a good Doppler signal in the left foot. October 16, 2023 The patient was seen and evaluated this morning. He continues to be on norepinephrine only at the small dose. His hemoglobin dropped to around 7 with ongoing to give the patient 1 unit of packed RBC hopefully we can wean him from norepinephrine and also hopefully it will improve the section of the arm on the Impella. Neurologically he is slightly better after the sedation was weaned. He continues to be on dual antiplatelet therapy. He continues to be on amiodarone. He continues to be on statin. Urine output has been marginal. I had a long discussion with the family in details about the condition and about the prognosis overall and they are in full understanding the poor prognosis overall. The examination is remarkable for regular rhythm with a distant heart sounds and diminished breathing sounds bilaterally and bilateral lower extremities edema noted. We had to stop the heparin because of gastrointestinal bleeding. The last episode of gastrointestinal bleeding was earlier this morn ing. 10/17/2023 Patient seen and examined at bedside this a.m. He is on norepinephrine 0.02. He is on Impella with P7 with 3 L output. MAP around 65 to 70 mmHg. Patient does not have any [place] catheter in place. Bedside echocardiogram showed an EF of 10 to 15% with normally positioned Impella. IVC is not dilated Inputs and outputs: Around 500 cc of urine last 24 hours with total of 700 cc positive fluid balance. Labs: Hb 8.2, creatinine 1.75, BUN 53, sodium 132. 10/18/2023 Patient was seen and examined at bedside this a.m. Yesterday by evening Impella was reduced to P4 and norepinephrine to 0.04. Overnight patient had low blood pressure. We attempted to wean off norepinephrine and start him on dobutamine which patient could not tolerate. Eventually dobutamine was discontinued and patient was put back on norepinephrine. Patient has been requiring P7 Impella with 3 L output. At present 4 PM 10/18/2023, patient is off norepinephrine, P7 Impella 3 L output. Janee cardiac index 1.9 L/min/m, Janee cardiac output 4.9 L/min, stroke-volume 50 ml. Patient's hemoglobin dropped from 8 to 7-6.3 today. Patient also had black watery stools. He required 1 unit of blood transfusion. His IV heparin was discontinued which was started for Impella. 10/19/23 Seen and examined at bedside this a.m. Today patient has been doing well. We have been able to wean him down to P5 and he is not requiring any norepinephrine. Patient has a good pulse pressure with SBP 120, diastolic blood pressure 50s. Patient's urine output has been 25 to 30 cc/h. He appears mildly volume overloaded. Will give him 1 dose of IV Lasix 40 mg. His renal function has been slightly declining with creatinine trending up Today arterial sat 95%, mixed venous sat 51.7%, hemoglobin 7.4, heart rate 86. Cardiac output 6.3 L/min, cardiac index 2.5 L/min/m. Cardiac index is improved from yesterday with lesser power requirement on Impella and no requirement of IV pressors. Echocardiogram shows an EF of 15 to 20% with well-placed Impella. This is slightly improved from 10 to 15% from presentation. 10/20/2023 Patient is in bilevel was removed yesterday. Post Impella it was noticed that patient's left common Ilac vein had thrombus for which aspiration thrombectomy was done but was not able to aspirate 100% of clot. The arteriotomy site and the thrombus was secured wire covered stent in the left common femoral artery. Distal pulses since then and bilateral lower extremity has been intact. Today patient has been on low-dose norepinephrine which has been discontinued. His blood pressure has been 100 over 60s with maps of 60 to 70 mmHg. Patient is still maintaining on 20 mics of propofol. Hemoglobin was again less than 7 with black tarry stools. Patient received 1 unit of blood transfusion. PEEP is down to 10 mmHg Urine output 1.2 L Assessment Cardiogenic Shock, s/p Impella. Left common femoral vein thrombectomy with covered stent deployment for achieving patent hemostasis after Impella removal. Ischemic cardiomyopathy with EF 10-15% Acute anemia GI bleeding STEMI Acute total occlusion of the left circumflex proximally Severe disease involving the right coronary artery Cardiac arrest as described above Multiple risk factors including hypertension and dyslipidemia History of seizure Plan Continue aspirin, Plavix, statin Continue amiodarone orally Give the patient 1 unit of packed RBC if Hb <7. Ideally patient should be managed on IV heparin but unable to do so due to GI bleeding and low hemoglobin. Give 1 dose of IV Lasix 40 mg today. Yesterday patient received 1 dose of IV Lasix before Impella removal, total urine output 1.2 L Patient is not a candidate for EGD and colonoscopy at present due to hemodynamic instability. Consult neurology for evaluation hypoxic ischemic encephalopathy and brainstem reflex evaluation. Considering patient's anemia, active GI bleeding, cardiogenic shock, ventilator dependent respiratory failure with 50% FiO2, patient's overall prognosis is very poor. I have had a family discussion and have explained the patient's current condition. Patient is not a candidate for [facility] because of anemia and active GI bleeding. Objective - Vital Signs Vital signs: Vital Signs Temp 98.1 F 10/20/23 15:44 Pulse 104 H 10/20/23 19:00 Resp 33 H 10/20/23 19:00 BP 100/57 10/20/23 19:00 Pulse Ox 96 10/20/23 19:00 FiO2 50 10/20/23 19:00 Intake & Output 10/20/23 10/20/23 10/21/23 06:59 18:59 06:59 Intake Total 7399.045 6418.344 20 Output Total 525 1135 135 Balance 530.306 81.344 -115 Weight 121.5 kg 121.5 kg Intake: IV 547 229.8 10 0.9 30 10 A-line 12 Invasive Line 8 10 Meropenem 1 gm In Sodium 100 199.8 Chloride 0.9% 100 ml @ 33 .3 mls/hr IVPB Q8HR [place] Rx#:[id number] Sodium Chloride 0.9% 1, 375 000 ml In Empty Bag 1 bag @ 75 mls/hr IV .[id number] [place] Rx#:[id number] Intake, IV Titration 508.306 566.544 0 Amount Norepinephrine 4 mg In 108.306 33.311 Sodium Chloride 0.9% 250 ml @ 0.03 MCG/KG/MIN 13. 945 mls/hr IV .[id number] [place] Rx#:[id number] Potassium Chloride 10 meq 400 In Water For Injection 1 100ml.bag @ 100 mls/hr IVPB Q1H [place] Rx#: [id number] fentaNYL (PF). 1,000 mcg 200 30.596 0 In Sodium Chloride 0.9% 80 ml @ 0.5 MCG/KG/HR 5. 865 mls/hr IV .[id number] [place] Rx#:[id number] propofoL 1,000 mg In 200 102.637 Empty Bag 1 bag @ 30 MCG/ KG/MIN 26.37 mls/hr IV . [id number] [place] Rx#:[id number] Tube Feeding 80 10 Blood Product 310 Rc As-1 Unit 310 [id number] Other 30 Output: Urine 525 1135 135 Other: Voiding Method Indwelling Catheter Indwelling Catheter # Bowel Movements 1 ABP, PAP, CO, CI - Last Documented Arterial Blood Pressure 111/51 - Labs CBC & Chem 7: 10/20/23 18:00 10/20/23 18:00 Labs: Abnormal Lab Results - Last 24 Hours (Table) 10/16/23 10/19/23 10/19/23 Range/Units 17:40 15:00 22:05 WBC (3.8-10.6) k/uL RBC (4.30-5.90) m/uL Hgb (13.0-17.5) gm/dL Hct (39.0-53.0) % RDW (11.5-15.5) % Plt Count (150-450) k/uL Neutrophils # (Manual) (1.3-7.7) k/uL Monocytes # (Manual) (0-1.0) k/uL Metamyelocytes # (Man) (0) k/uL Myelocytes # (Manual) (0) k/uL Nucleated RBCs (0-0) /100 WBC ABG Total CO2 (19-24) mmol/L Sodium (137-145) mmol/L BUN (9-20) mg/dL Creatinine (0.66-1.25) mg/dL Glucose (74-99) mg/dL POC Glucose (mg/dL) 118 H (70-110) mg/dL Calcium (8.4-10.2) mg/dL AST (17-59) U/L ALT (4-49) U/L Total Protein (6.3-8.2) g/dL Albumin (3.5-5.0) g/dL Procalcitonin 2.01 H (0.02-0.09) ng/mL Crossmatch See Detail 10/20/23 10/20/23 10/20/23 Range/Units 00:12 01:34 04:17 WBC 17.8 H (3.8-10.6) k/uL RBC 2.25 L (4.30-5.90) m/uL Hgb 7.1 L (13.0-17.5) gm/dL Hct 20.9 L (39.0-53.0) % RDW 15.7 H (11.5-15.5) % Plt Count 90 L (150-450) k/uL Neutrophils # (Manual) 14.42 H (1.3-7.7) k/uL Monocytes # (Manual) (0-1.0) k/uL Metamyelocytes # (Man) 0.18 H (0) k/uL Myelocytes # (Manual) (0) k/uL Nucleated RBCs 1 H (0-0) /100 WBC ABG Total CO2 (19-24) mmol/L Sodium (137-145) mmol/L BUN (9-20) mg/dL Creatinine (0.66-1.25) mg/dL Glucose (74-99) mg/dL POC Glucose (mg/dL) 125 H 118 H (70-110) mg/dL Calcium (8.4-10.2) mg/dL AST (17-59) U/L ALT (4-49) U/L Total Protein (6.3-8.2) g/dL Albumin (3.5-5.0) g/dL Procalcitonin (0.02-0.09) ng/mL Crossmatch 10/20/23 10/20/23 10/20/23 Range/Units 04:24 04:24 05:25 WBC 17.3 H (3.8-10.6) k/uL RBC 2.19 L (4.30-5.90) m/uL Hgb 6.9 L* (13.0-17.5) gm/dL Hct 20.5 L (39.0-53.0) % RDW 16.0 H (11.5-15.5) % Plt Count 94 L (150-450) k/uL Neutrophils # (Manual) 11.00 H (1.3-7.7) k/uL Monocytes # (Manual) 1.90 H (0-1.0) k/uL Metamyelocytes # (Man) 1.04 H (0) k/uL Myelocytes # (Manual) 0.52 H (0) k/uL Nucleated RBCs (0-0) /100 WBC ABG Total CO2 26 H (19-24) mmol/L Sodium 133 L (137-145) mmol/L BUN 73 H (9-20) mg/dL Creatinine 2.40 H (0.66-1.25) mg/dL Glucose (74-99) mg/dL POC Glucose (mg/dL) (70-110) mg/dL Calcium 7.0 L (8.4-10.2) mg/dL AST 157 H (17-59) U/L ALT 108 H (4-49) U/L Total Protein 4.4 L (6.3-8.2) g/dL Albumin 1.9 L (3.5-5.0) g/dL Procalcitonin (0.02-0.09) ng/mL Crossmatch 10/20/23 10/20/23 10/20/23 Range/Units 07:42 10:16 11:56 WBC (3.8-10.6) k/uL RBC (4.30-5.90) m/uL Hgb (13.0-17.5) gm/dL Hct (39.0-53.0) % RDW (11.5-15.5) % Plt Count (150-450) k/uL Neutrophils # (Manual) (1.3-7.7) k/uL Monocytes # (Manual) (0-1.0) k/uL Metamyelocytes # (Man) (0) k/uL Myelocytes # (Manual) (0) k/uL Nucleated RBCs (0-0) /100 WBC ABG Total CO2 (19-24) mmol/L Sodium (137-145) mmol/L BUN (9-20) mg/dL Creatinine (0.66-1.25) mg/dL Glucose (74-99) mg/dL POC Glucose (mg/dL) 121 H 120 H (70-110) mg/dL Calcium (8.4-10.2) mg/dL AST (17-59) U/L ALT (4-49) U/L Total Protein (6.3-8.2) g/dL Albumin (3.5-5.0) g/dL Procalcitonin (0.02-0.09) ng/mL Crossmatch See Detail 10/20/23 10/20/23 10/20/23 Range/Units 16:03 18:00 18:00 WBC 18.4 H (3.8-10.6) k/uL RBC 2.81 L (4.30-5.90) m/uL Hgb 8.6 L D (13.0-17.5) gm/dL Hct 25.8 L (39.0-53.0) % RDW 15.8 H (11.5-15.5) % Plt Count 110 L (150-450) k/uL Neutrophils # (Manual) (1.3-7.7) k/uL Monocytes # (Manual) (0-1.0) k/uL Metamyelocytes # (Man) (0) k/uL Myelocytes # (Manual) (0) k/uL Nucleated RBCs (0-0) /100 WBC ABG Total CO2 (19-24) mmol/L Sodium 135 L (137-145) mmol/L BUN 70 H (9-20) mg/dL Creatinine 2.52 H (0.66-1.25) mg/dL Glucose 106 H (74-99) mg/dL POC Glucose (mg/dL) 135 H (70-110) mg/dL Calcium 7.2 L (8.4-10.2) mg/dL AST (17-59) U/L ALT (4-49) U/L Total Protein (6.3-8.2) g/dL Albumin (3.5-5.0) g/dL Procalcitonin (0.02-0.09) ng/mL Crossmatch
--- NOTE | 2023-10-20 20:05 | CT ---
EXAMINATION TYPE: CT brain wo con DATE OF EXAM: 10/20/2023 HISTORY: Coded a few times, down time x 30mins. Pt also went into afib. r/o stroke. Increasing. CT DLP: 1234.4 mGycm. Automated Exposure Control for Dose Reduction was Utilized. TECHNIQUE: CT scan of the head is performed without contrast. COMPARISON: 09/27/2023 FINDINGS: There is no acute intracranial hemorrhage or midline shift identified. There is diffuse ventricular a nd sulcal prominence consistent with diffuse age-related cerebral atrophy. There is low-attenuation i n the periventricular white matter consistent with chronic small vessel ischemic change, but no defin ite new attenuation defect. The globes are intact. Able fluid is seen in the right maxillary sinus an d the sphenoid sinus. Major of the paranasal sinuses are clear as are the bilateral middle ear caviti es and mastoid sinus air cells. IMPRESSION: No acute intracranial process. Nonspecific mild paranasal sinus fluid noted, new since 09/27/2023.
[2023-10-20 20:26] LABS: Glucose,Whole Blood 115 mg/dL (70-110)
--- NOTE | 2023-10-20 20:56 | EEG ---
ELECTROENCEPHALOGRAM REPORT PREAMBLE: This is a 77-year-old male with history of COVID, followed by cardiac arrest with prolonged down time. This study is performed to evaluate for any epileptiform activity and evaluate for encephalopathy. Propofol and fentanyl have been turned off almost for an hour. Patient is comatose. EEG FINDINGS: This is a 21-channel digital EEG recorded with video component, utilizing 10/20 international system with referential and bipolar montages. Background consists of poorly developed and regulated, predominantly 3 to 4 hertz mixed delta and theta activity seen in bihemispheric region. Background does not seem to be reactive to eye opening or closing. Photic driving response was not seen. Intermittently some sharp appearing waves in bihemispheric region were seen at 1 to 2 hertz. No motor activity was noted during the entire study. No electrographic seizure was recorded. Different stages of sleep were not seen. IMPRESSION: This is an abnormal EEG due to, 1. Background slowing of moderate to severe degree, suggestive of generalized cerebral dysfunction as can be seen with toxic metabolic encephalopathy or related to diffuse structural brain abnormality. Clinical correlation is recommended. 2. Presence of sporadic, intermittent generalized sharp-appearing waves, which occasionally becomes more rhythmic at about 1 hertz, suggestive of underlying cortical irritability and tendency for seizure. No electrographic seizure were recorded. Clinical correlation and a followup EEG recommended. MMBLANCA / DERRICKN: [id number] / RYANN
[2023-10-20] MEDS: levETIRAcetam IV 500 MG/5 ML VIAL IVP STA (21:41)
--- NOTE | 2023-10-20 22:01 | P.PN ---
Subjective patient is a 77-year-old gentleman past medical history significant for hypothyroidism, hypertension who presented to the ER for generalized weakness and fall. Patient was brought in by family members, apparently patient was trying to use the restroom when he lost all his strength and slumped to the ground. There was no complaint of any loss of consciousness. No complaint of weakness of any extremity. Family did not notice any slurred speech or facial droop. There was no complaint of fever or chills. No complaint of nausea, vomiting, abdominal pain. Patient's family tried to help him to get up but they were unable to lift him. They called EMS and they brought him to ER. Initial lab work done in the ER showed WBC 10.5, hemoglobin 15.2, platelet count 165, sodium 118, potassium 4.1, BUN 24, creatinine 1.26, plasma lactate 4.1, tro ponin 0.012 UA negative for any infection EKG done in the ER showed heart rate of 75, no ST segment elevation or depression seen, no T-wave inversions seen. Chest x-ray done in the ER no acute cardiopulmonary process CT head done showed no acute intracranial process Patient admitted to internal medicine service 09/29. Patient seen and examined. COVID-19 came back positive. Currently on 4 L of oxygen. Sodium this morning is 121. Still complain lethargy and weakness. Patient also diagnosed with COVID 09/30. Patient seen and examined. Blood work done this morning showed WBC 14.9, hemoglobin 12.9, platelet count 146, sodium 126, potassium 3.9, BUN 15, creatinine 0.68. States he feels much better. Shortness of breath is improved. 10/01. Patient seen and examined. Still on 15 L of oxygen via nonrebreather. States he feels better. Sodium level improved to 132, potassium 3.3, BUN 18, creatinine 0.65. Lethargy has improved. 10/02. Patient seen and examined. Currently on 8 L of oxygen via high flow nasal cannula. States he feels much better, breathing is improved, pulmonology recommended sniff test to look for right diaphragm paralysis 10/03. Patient seen and examined. Continues to be on 15 L of oxygen. Patient is not lethargic, states gets short of breath on exertion. Denies any nausea or vomiting 10/04/2023 Patient seen and evaluated in follow-up today continues to be dyspneic maintained on high flow oxygen is being transferred to [facility]. Per nursing staff he continues to remove his nasal cannula as well as nonrebreather and respiratory following recommending i continuing this for a few hours. Patient has noted to be COVID-positive. Sodium is slightly low at 132 potassium was 3.3 yesterday and replaced awaiting follow-up labs. Patient with prolonged hospitalization and continued weakness will likely need ECF once stabilized. 10/05/2023 Patient is seen in follow-up this morning continues on Airvo with maximum oxygen at 60/90 maintaining oxygen saturations in the 88 percentile range. Patient reports having worsening shortness of breath although appears somewhat confused at times. Discussed CODE STATUS with the patient and he wishes to remain full code. Patient is agreeable to mechanical ventilation if required. Patient continues to remove his oxygen from his face desats very quickly. Will get a chest x-ray and continue to monitor closely. Pulmonary and infectious disease following and patient is continued on cefepime with concerns of pneumonia. Patient is currently afebrile and denies chest pain or shortness of breath. Patient reports he is eating although not much of an appetite. 10/06/2023 Patient is seen in follow-up today was transferred to the ICU for respiratory decline per nursing staff as patient continued to have respiratory distress and low oxygen saturations becoming more hypoxic and confused. Patient is continued on Airvo max 60/90 with continued intermittent nonrebreather use. Patient is continued on steroids along with inhalers and pulmonary is following closely. Patient is afebrile with no reported chest pain or shortness of breath. Patient reports to tolerating diet although appears not to be eating very much at all. 10/07/2023 Patient is seen and evaluated in follow-up today continues in the ICU on high flow Airvo 60 L / 90% with oxygen saturations in the low 90s. On exam patient was found to have Airvo out of his nostrils and using nonrebreather and oxygen saturation was 93%. Patient is maintained on antibiotics with infectious disease following closely along with pulmonary sweatband flanger. CODE STATUS was addressed once again and patient wishes to remain full code. Wean FiO2 as t olerated. Encouraged oral intake. Patient to be evaluated by physical therapy once respiratory status improved and will need rehab. 10/09/2023 Patient lying in bed, mildly tachypneic with no chest pain He remains on Airvo 60 L/min Vital stable Remains on dexamethasone and Pepcid Resume of the care of the patient 10/12/2023 Patient with Covid infection and possible right lower lobe pneumonia finish her antibiotics. He does not need antiviral therapy but there is evidence of oral thrush and discovered covered with Diflucan and received nystatin as well. His leukocytosis stable about 18k, no fever. Patient also with fluid overload and hyponatremia sodium 1:30 status post 1 Samsca today, also patient is on IV Lasix 40 mg twice daily Patient currently is oxygen via nasal cannula saturating 88% which is improved from previous, airvo oxygen was stopped 10/13/2023 Patient is clinically stable. He is awake and alert not in distress his breathing is improving and currently he is on 4-5 L/m of oxygen which is a stable Has good air entry bilaterally. I discussed the case with pulmonary team and patient might be considered for discharge from their perspective is also on Diflucan and WBCs 18,000 Status post Samsca and sodium stable at 1:30, low potassium replaced I discussed the case with adoption social worker and patient does not need a bone isolation for his Covid. However he is prior authorization Possible discharge in 24-48 hours 10/14/23 Patient mentation is at baseline No new complaints, no chest pain no significant dyspnea He remains on 5 L oxygen via nasal cannula WBC improved down to 12,000, hemoglobin 12, sodium slightly low at 127, glucose controlled. Ejection fraction 60-65% Remains on Diflucan. Today IV Lasix switched to by mouth 40 mg twice daily Discussed with manager rn case, still pending placement. Still family having contacted staff. 10/15/2023 Patient condition deteriorated and patient developed CODE BLUE called for him and he underwent CPR per protocol with downtime estimated about 7 to 10 minutes He was taken emergently to the [facility] and a total of 5 stents placed into his coronary arteries. Postprocedure patient was taken to the ICU intubated and s edated Also he was started on Impella for hemodynamic support He was started also on aspirin, Brilinta and heparin drip Also patient developed leukocytosis up to 1 31,000 hemoglobin stable around 12. Sodium 129 Creatinine stable at 1.1 10/16/2023 Patient remains in the ICU sedated and intubated Today he lost about 400 to 500 mL of dark-colored fluid through his NG tube so heparin drip was stopped. While patient kept on aspirin and Brilinta History requires Impella in place with cardiology and critical care team following closely He remains on intubated on mechanical ventilation for respiratory support He has significant leukocytosis up to 33,000 and is currently covered with IV vancomycin and meropenem. He has been spiking fever today Also his creatinine jumped up to 1.9 and he developed acute kidney injury His condition remains critical Case discussed with staff and critical care team Patient remains in the ICU intubated and sedated, and he has been monitoring closely. They tried to wean him yesterday and he got agitated. His currently on sedative and propofol His ejection fraction is low indicating cardiogenic shock, EF is around 10 to 20% compared to 66% on the previous days. This is after the STEMI and cardiac arrest. Patient currently on Impella and small dose of Levophed with cardiology and critical care following closely. Stool wean him off Impella if that works then possibly stop Levophed and later on switched Impella to dobutamine this works. Patient does not need heparin drip and he is continued on a dual antiplatelet therapy and statin Also midodrine was added today. His condition remains critical 10/18/2023 pt condition is still critical and his response to treatment is guarded pt is still intubated , requring peep of 12 pt is hypotensive could not tolerate weaning pressores down still on aimpalla his wbc is 20k, hb dropped down to 6.3 and after 2 units of blood transfusion came up to 7.7 still on asprin and brillinta, on iv protnox bid and pepcid, on iv vancomycin, meropenem family may consider more palliative management management discussed with staff 10/19/2023 pt remains intubated and sedated on mechanical ventilation with pulmonary and critical care team are following and managing vent very closely he is still on high peep at 15 he is not suitable for weaning attempts yet he is having maroon stool with gi bleed , so heparin drip on hold also on protonix , surgery team recommend colonoscopy when hemodynamically stable his pressors were stopped and impalla went down to p6 10/20/2023 Patient remains intubated in the critical care unit Yesterday the Impella was removed. Still requiring small dose of pressors CT of the brain is negative for acute process EEG showing severe metabolic encephalopathy however there is some electrical activity suggestive of tendency toward seizure but no seizure activity. Keppra 500 mg twice daily was added. Patient also on meropenem. IV Lasix 40 mg every 8 hours. Objective - Vital Signs Vital signs: Vital Signs Temp 98.1 F 10/20/23 15:44 Pulse 104 H 10/20/23 17:00 Resp 30 H 10/20/23 17:00 BP 114/63 10/20/23 17:00 Pulse Ox 96 10/20/23 17:00 FiO2 50 10/20/23 16:00 Intake & Output 10/19/23 10/20/23 10/20/23 18:59 06:59 18:59 Intake Total 0563.796 4369.306 1163.044 Output Total 208 014 6161 Balance 427.142 530.306 158.044 Weight 121.5 kg 121.5 kg Intake: IV 696 547 186.5 0.9 20 A-line 66 12 Invasive Line 8 30 10 Meropenem 1 gm In Sodium 100 100 166.5 Chloride 0.9% 100 ml @ 33 .3 mls/hr IVPB Q8HR [place] Rx#:[id number] Sodium Chloride 0.9% 1, 375 000 ml In Empty Bag 1 bag @ 75 mls/hr IV .[id number] [place] Rx#:[id number] Vancomycin 1,750 mg In 500 Sodium Chloride 0.9% 500 ml 500 ml @ 167 mls/hr IVPB Q24HR [place] Rx#: [id number] Intake, IV Titration 386.142 508.306 566.544 Amount Norepinephrine 4 mg In 0 108.306 33.311 Sodium Chloride 0.9% 250 ml @ 0.03 MCG/KG/MIN 13. 945 mls/hr IV .[id number] [place] Rx#:[id number] Potassium Chloride 10 meq 400 In Water For Injection 1 100ml.bag @ 100 mls/hr IVPB Q1H [place] Rx#: [id number] fentaNYL (PF). 1,000 mcg 100.000 200 30.596 In Sodium Chloride 0.9% 80 ml @ 0.5 MCG/KG/HR 5. 865 mls/hr IV .[id number] [place] Rx#:[id number] propofoL 1,000 mg In 286.142 200 102.637 Empty Bag 1 bag @ 30 MCG/ KG/MIN 26.37 mls/hr IV . Q3H48M [facility] Rx#:[id number] Tube Feeding 70 Blood Product 310 Rc As-1 Unit 310 [id number] Other 30 Output: Urine 921 129 5152 Other: Voiding Method Indwelling Catheter Indwelling Catheter Indwelling Catheter # Bowel Movements 0 1 ABP, PAP, CO, CI - Last Documented Arterial Blood Pressure 111/51 - Exam GENERAL: The patient is sedated and intubated HEENT: Pupils are round and equally reacting to light. EOMI. No scleral icterus. No conjunctival pallor. Normocephalic, atraumatic. No pharyngeal erythema. No thyromegaly. CARDIOVASCULAR: S1 and S2 present. No murmurs, rubs, or gallops. PULMONARY: Chest is clear to auscultation, no wheezing , no crackles. ABDOMEN: Soft, nontender, nondistended, normoactive bowel sounds. No palpable organomegaly. MUSCULOSKELETAL: No joint swelling or deformity. EXTREMITIES: No cyanosis, clubbing, or pedal edema. NEUROLOGICAL: Gross neurological examination did not reveal any focal deficits. SKIN: No rashes. no petechiae. - Labs CBC & Chem 7: 10/20/23 18:00 10/20/23 18:00 Labs: Abnormal Lab Results - Last 24 Hours (Table) 10/16/23 10/19/23 10/19/23 Range/Units 17:40 15:00 22:05 WBC (3.8-10.6) k/uL RBC (4.30-5.90) m/uL Hgb (13.0-17.5) gm/dL Hct (39.0-53.0) % RDW (11.5-15.5) % Plt Count (150-450) k/uL Neutrophils # (Manual) (1.3-7.7) k/uL Monocytes # (Manual) (0-1.0) k/uL Metamyelocytes # (Man) (0) k/uL Myelocytes # (Manual) (0) k/uL Nucleated RBCs (0-0) /100 WBC ABG Total CO2 (19-24) mmol/L Sodium (137-145) mmol/L BUN (9-20) mg/dL Creatinine (0.66-1.25) mg/dL Glucose (74-99) mg/dL POC Glucose (mg/dL) 118 H (70-110) mg/dL Calcium (8.4-10.2) mg/dL AST (17-59) U/L ALT (4-49) U/L Total Protein (6.3-8.2) g/dL Albumin (3.5-5.0) g/dL Procalcitonin 2.01 H (0.02-0.09) ng/mL Crossmatch See Detail 10/20/23 10/20/23 10/20/23 Range/Units 00:12 01:34 04:17 WBC 17.8 H (3.8-10.6) k/uL RBC 2.25 L (4.30-5.90) m/uL Hgb 7.1 L (13.0-17.5) gm/dL Hct 20.9 L (39.0-53.0) % RDW 15.7 H (11.5-15.5) % Plt Count 90 L (150-450) k/uL Neutrophils # (Manual) 14.42 H (1.3-7.7) k/uL Monocytes # (Manual) (0-1.0) k/uL Metamyelocytes # (Man) 0.18 H (0) k/uL Myelocytes # (Manual) (0) k/uL Nucleated RBCs 1 H (0-0) /100 WBC ABG Total CO2 (19-24) mmol/L Sodium (137-145) mmol/L BUN (9-20) mg/dL Creatinine (0.66-1.25) mg/dL Glucose (74-99) mg/dL POC Glucose (mg/dL) 125 H 118 H (70-110) mg/dL Calcium (8.4-10.2) mg/dL AST (17-59) U/L ALT (4-49) U/L Total Protein (6.3-8.2) g/dL Albumin (3.5-5.0) g/dL Procalcitonin (0.02-0.09) ng/mL Crossmatch 10/20/23 10/20/23 10/20/23 Range/Units 04:24 04:24 05:25 WBC 17.3 H (3.8-10.6) k/uL RBC 2.19 L (4.30-5.90) m/uL Hgb 6.9 L* (13.0-17.5) gm/dL Hct 20.5 L (39.0-53.0) % RDW 16.0 H (11.5-15.5) % Plt Count 94 L (150-450) k/uL Neutrophils # (Manual) 11.00 H (1.3-7.7) k/uL Monocytes # (Manual) 1.90 H (0-1.0) k/uL Metamyelocytes # (Man) 1.04 H (0) k/uL Myelocytes # (Manual) 0.52 H (0) k/uL Nucleated RBCs (0-0) /100 WBC ABG Total CO2 26 H (19-24) mmol/L Sodium 133 L (137-145) mmol/L BUN 73 H (9-20) mg/dL Creatinine 2.40 H (0.66-1.25) mg/dL Glucose (74-99) mg/dL POC Glucose (mg/dL) (70-110) mg/dL Calcium 7.0 L (8.4-10.2) mg/dL AST 157 H (17-59) U/L ALT 108 H (4-49) U/L Total Protein 4.4 L (6.3-8.2) g/dL Albumin 1.9 L (3.5-5.0) g/dL Procalcitonin (0.02-0.09) ng/mL Crossmatch 10/20/23 10/20/23 10/20/23 Range/Units 07:42 10:16 11:56 WBC (3.8-10.6) k/uL RBC (4.30-5.90) m/uL Hgb (13.0-17.5) gm/dL Hct (39.0-53.0) % RDW (11.5-15.5) % Plt Count (150-450) k/uL Neutrophils # (Manual) (1.3-7.7) k/uL Monocytes # (Manual) (0-1.0) k/uL Metamyelocytes # (Man) (0) k/uL Myelocytes # (Manual) (0) k/uL Nucleated RBCs (0-0) /100 WBC ABG Total CO2 (19-24) mmol/L Sodium (137-145) mmol/L BUN (9-20) mg/dL Creatinine (0.66-1.25) mg/dL Glucose (74-99) mg/dL POC Glucose (mg/dL) 121 H 120 H (70-110) mg/dL Calcium (8.4-10.2) mg/dL AST (17-59) U/L ALT (4-49) U/L Total Protein (6.3-8.2) g/dL Albumin (3.5-5.0) g/dL Procalcitonin (0.02-0.09) ng/mL Crossmatch See Detail 10/20/23 10/20/23 10/20/23 Range/Units 16:03 18:00 18:00 WBC 18.4 H (3.8-10.6) k/uL RBC 2.81 L (4.30-5.90) m/uL Hgb 8.6 L D (13.0-17.5) gm/dL Hct 25.8 L (39.0-53.0) % RDW 15.8 H (11.5-15.5) % Plt Count 110 L (150-450) k/uL Neutrophils # (Manual) (1.3-7.7) k/uL Monocytes # (Manual) (0-1.0) k/uL Metamyelocytes # (Man) (0) k/uL Myelocytes # (Manual) (0) k/uL Nucleated RBCs (0-0) /100 WBC ABG Total CO2 (19-24) mmol/L Sodium 135 L (137-145) mmol/L BUN 70 H (9-20) mg/dL Creatinine 2.52 H (0.66-1.25) mg/dL Glucose 106 H (74-99) mg/dL POC Glucose (mg/dL) 135 H (70-110) mg/dL Calcium 7.2 L (8.4-10.2) mg/dL AST (17-59) U/L ALT (4-49) U/L Total Protein (6.3-8.2) g/dL Albumin (3.5-5.0) g/dL Procalcitonin (0.02-0.09) ng/mL Crossmatch Assessment and Plan Assessment: Emergent cardiac cath and 5 stents placement Cardiogenic shock and possible septic shock secondary to above Acute hypoxic respiratory failure requiring intubation and mechanical ventilation acute GI Bleed requring blood transufion Acute kidney injury Hyponatremia secondary to poor oral intake, COVID-19 Acute hypoxic respiratory failure secondary to COVID-19, now requiring oxygen via nasal cannula. Altered mental status, with toxic metabolic encephalopathy likely secondary to hypoxia as patient continues to remove oxygen mask from his face Generalized weakness Rhabdomyolysis. Improved Fall Urinary retention requiring indwelling Rosales catheter Hypothyroidism Hypertension Obesity with a BMI of 35.0 acute STEMI s/p Plan: Patient is continued on mechanical ventilation Continue with aspirin and Brilinta heparin drip is discontinued Cardiology consult following closely Pulmonary/critical care team following closely Patient s/p Impella with cardiology team Antibiotics were adjusted into meropenem and IV vancomycin by ID team Continue with insulin coverage Summer consult is on the case including ID team, pulmonary and nephrology Labs and medication were reviewed.. Continue same treatment. Continue with symptomatic treatment. Resume home medication. Monitor labs and vitals. DVT and GI prophylaxis. Further recommendations as per clinical course of the patient DVT prophylaxis: Subcutaneous Lovenox GI Prophylaxis: Pepcid PT/OT: heather prognosis is guarded family consider more palliative management
[2023-10-21 03:26] LABS: Glucose,Whole Blood 123 mg/dL (70-110)
[2023-10-21 05:54] LABS: ABG Base Excess -0.7 mmol/L; ABG HCO3 24 mmol/L (21-25); ABG PCO2 37 mmHg (35-45); ABG PH 7.42 (7.35-7.45); ABG PO2 98 mmHg (83-108); ABG TCO2 25 mmol/L (19-24); Allen Test Performed? Yes
[2023-10-21 06:00] LABS: Anisocytosis Slight; HCT 24.2 % (39.0-53.0); HGB 8.2 gm/dL (13.0-17.5); MCH 31.3 pg (25.0-35.0); MCHC 34.1 g/dL (31.0-37.0); MCV 91.7 fL (80.0-100.0); Platelet Count 129 k/uL (150-450); RBC 2.63 m/uL (4.30-5.90); RDW 16.8 % (11.5-15.5)
[2023-10-21 06:10] LABS: Chloride 106 mmol/L (98-107)
[2023-10-21 06:11] LABS: African American GFR (CKD) 27 (>60 ml/min/1.73 sqM); Anion Gap 8 mmol/L; Blood Urea Nitrogen 71 mg/dL (9-20); Calcium 7.4 mg/dL (8.4-10.2); Carbon Dioxide 21 mmol/L (22-30); Glucose 108 mg/dL (74-99); Non-African American GFR(CKD) 23 (>60 ml/min/1.73 sqM); Potassium 3.8 mmol/L (3.5-5.1); Sodium 135 mmol/L (137-145)
--- NOTE | 2023-10-21 07:54 | XR ---
EXAMINATION TYPE: XR chest 1V DATE OF EXAM: 10/21/2023 COMPARISON: 10/20/2023 HISTORY: SOB, Follow Up FINDINGS: Indwelling tubes and catheters are unchanged. No change in bibasilar opacities. Stable appearance of the cardio-mediastinal structures at this time. IMPRESSION: 1. Stable portable chest. Clinical correlation and follow up until resolution is recommended.
[2023-10-21] MEDS: levETIRAcetam IV 500 MG/5 ML VIAL IVP SCH (09:10)
[2023-10-21 10:13] LABS: Band Neutrophils % 7 %; Metamyelocytes % 5 %; Myelocytes # (M) 0.29 k/uL (0); Myelocytes % 2 %; Neutrophils % (M) 67 %; Nucleated Red Blood Cells 1 /100 WBC (0-0); Total Cells Counted 200
[2023-10-21 10:14] LABS: Basophils # (M) 0.14 k/uL (0-0.2); Eosinophils # (M) 0.14 k/uL (0-0.7); Lymphocytes # (M) 1.87 k/uL (1.0-4.8); Metamyelocytes # (M) 0.72 k/uL (0); Monocytes # (M) 1.01 k/uL (0-1.0); WBC 14.4 k/uL (3.8-10.6)
--- NOTE | 2023-10-21 10:48 | P.CNNES ---
History of Present Illness Consult date: 10/20/23 Requesting physician: Erwin Toribio Reason for Consult: Neuro evaluation History of Present Illness: Patient is a 77-year-old male with history of hypertension, hyperlipidemia, seizure disorder who was brought to the hospital by ambulance at 10:10 PM on 09/27/2023 for acute COVID infection. As per EMS flowsheet, when they arrived, it was reported patient is not eating or drinking, laying on the floor. It was reported that patient has been feeling weak for the past 2 days and that he is unable to stand or walk on his own. Per patient's family report, normally he is not this week and has been dealing with some congestion. There was no labored breathing noted. Pulse was strong. Patient was alert and oriented x 4. [place] stroke scale was negative. Blood glucose 192. Patient was placed on oxygen via nasal cannula. Patient's vitals were stable 126/86 heart rate 93 saturation 91%, respiration 20. Patient had a normal CT scan of head. Patient was diagnosed with acute COVID infection, and he was getting better. Patient had a V fibrillation cardiac arrest on 10/14/2023. As per electronic records, the CODE BLUE was called at 5:02 PM, the pulse was noted at 5:07 PM and ROSC at 5:11 PM. He was taken to cardiac cath. 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 During cardiac catheterization, patient had another episode of cardiac arrest with pulseless electrical activity. It was reported this arrest was about 15 minutes. Patient underwent cardiac stenting. Patient was intubated, transferred to the ICU. Patient's most recent blood test shows WBC 18.4, hemoglobin 8.6, platelets manage 10. ABG is normal with pH of 7.39, pCO2 40. Sodium 135 potassium 4.1, BUN 70, creatinine 2.52. Chest x-ray revealed scattered areas of patchy infiltrate unchanged from prior study. Initial CT head performed on admission 2023 showed no acute intracranial hemorrhage, midline shift or mass effect. I personally reviewed CT head, agree with the findings. There is evidence of generalized cerebral atrophy. I spoke to patient's daughter on the phone, who mentioned that patient has history of seizure disorder known to her "all her life". He gets "psychomotor seizures", and grand mal seizures. His seizures for more frequent when he was working in the past. He has not had any grand mal seizures since 2014 when he was hospitalized. He gets his "psychomotor seizures" about 3 times a year. It starts with noticing a funny smell, flashing lights and then he stares off, sits down, rocks and has a blank stare, confused then has a bad headache. Once it is over, then he states "oh it was weird". Sometimes he gets low blood sugar spells as well. Patient's daughter does not know what medications he has tried in the past. He does follow-up with Dr. Oleary, neurologist regularly. Last time was seen about shortly before he was admitted to the hospital. Patient is a non-smoker, rarely drinks. He does get low blood sugar. Has hypertension. Patient's daughter mentions that he walks by himself most of the time. Occasionally when he goes to the mall, he uses his 's walker, because of his neuropathy hurting his feet. No history of dementia. She also mentions that patient has severe neuropathy "stage IV". Review of Systems The review of systems mentioned below is as per report from patient's daughter from before he got sick. ROS unobtainable: due to endotracheal tube, due to mental status Constitutional: Denies chills, Denies fever Eyes: denies blurred vision, denies diplopia, denies pain Ears: deny: decreased hearing, earache Ears, nose, mouth and throat: Reports headache, Denies vertigo Cardiovascular: Reports lightheadedness, Reports shortness of breath, Denies milla st pain Respiratory: Reports cough, Reports excessive sputum Gastrointestinal: Reports abdominal pain, Reports diarrhea, Reports nausea, Reports vomiting Genitourinary: Denies dysuria, Denies incontinence Musculoskeletal: Reports low back pain, Denies neck pain Integumentary: Denies pruritus, Denies rash Neurological: Reports as per HPI, Reports paresthesias, Reports seizures Psychiatric: Denies anxiety, Denies depression Hematologic/Lymphatic: Denies easy bleeding, Denies easy bruising Past Medical History Past Medical History: Hypertension, Seizure Disorder, Thyroid Disorder History of Any Multi-Drug Resistant Organisms: None Reported Past Surgical History: Hernia Repair Past Anesthesia/Blood Transfusion Reactions: No Reported Reaction Past Psychological History: No Psychological Hx Reported Smoking Status: Former smoker Past Alcohol Use History: None Reported Past Drug Use History: None Reported Medications and Allergies Home Medications Medication Instructions Recorded Confirmed Type Amitriptyline HCl [Elavil] 75 mg PO HS 09/28/23 09/28/23 History Baclofen [Lioresal] 10 mg PO HS 09/28/23 09/28/23 History Divalproex Sodium [Depakote] 1,000 mg PO HS 09/28/23 09/28/23 History Ergocalciferol [Vitamin D2 (1250 1,250 mcg PO Q14D 09/28/23 09/28/23 History Mcg = [id number] Iu)] Levothyroxine Sodium [Synthroid] 100 mcg PO DAILY 09/28/23 09/28/23 History Metoprolol Tartrate [Lopressor] 50 mg PO HS 09/28/23 09/28/23 History Metoprolol Tartrate [Lopressor] 100 mg PO DAILY 09/28/23 09/28/23 History Multivitamins, Thera [Multivitamin 1 tab PO DAILY 09/28/23 09/28/23 History (formulary)] Omeprazole 20 mg PO DAILY 09/28/23 09/28/23 History amLODIPine [Norvasc] 10 mg PO DAILY 09/28/23 09/28/23 History Albuterol Inhaler [Ventolin Hfa 2 puff INHALATION RT-QID each 10/14/23 Rx Inhaler] Furosemide [Lasix] 40 mg PO BID #60 tablet 10/14/23 Rx Tamsulosin [Flomax] 0.4 mg PO [id number] cap 10/14/23 Rx hydrALAZINE HCL [Apresoline] 25 mg PO TID tab 10/14/23 Rx Allergies Allergy/AdvReac Type Severity Reaction Status Date / Time Penicillins AdvReac Rash/Hives Verified 09/28/23 06:59 Physical Examination - Vital Signs Vital Signs: Vital Signs Temp Pulse Resp BP Pulse Ox FiO2 10/20/23 13:00 85 29 H 113/58 96 10/20/23 12:46 98.0 F 83 29 H 113/58 97 10/20/23 12:45 83 26 H 104/64 96 10/20/23 12:30 84 23 101/58 97 10/20/23 12:26 98.6 F 84 26 H 104/64 97 10/20/23 12:16 98.6 F 80 26 H 101/58 97 10/20/23 12:00 98.6 F 82 26 H 95/59 97 50 10/20/23 11:48 94 10/20/23 11:35 80 10/20/23 11:30 81 26 H 98/62 97 50 10/20/23 11:00 82 26 H 91/52 97 10/20/23 10:30 79 26 H 92/50 97 10/20/23 10:00 77 26 H 90/52 97 10/20/23 09:30 76 28 H 90/51 98 10/20/23 09:00 78 28 H 87/50 98 10/20/23 08:30 79 26 H 88/51 97 10/20/23 08:00 98.1 F 80 25 H 94/54 97 50 10/20/23 07:54 87 10/20/23 07:37 80 10/20/23 07:30 80 26 H 92/55 96 50 10/20/23 07:00 80 26 H 95/55 96 10/20/23 06:30 79 26 H 97/54 96 10/20/23 06:00 78 26 H 96/54 97 10/20/23 05:30 78 14 100/54 10/20/23 05:00 80 26 H 87/53 10/20/23 04:43 50 10/20/23 04:30 79 26 H 95/57 97 10/20/23 04:00 98.5 F 80 26 H 90/51 97 50 10/20/23 03:30 78 26 H 98/56 10/20/23 03:00 79 26 H 104/57 98 10/20/23 02:30 80 26 H 95/55 97 10/20/23 02:00 77 26 H 95/52 97 10/20/23 01:30 80 26 H 96/53 96 10/20/23 01:00 78 26 H 101/56 96 10/20/23 00:30 80 26 H 98/55 96 10/20/23 00:21 50 10/20/23 00:00 97.7 F 80 26 H 97/52 96 50 10/19/23 23:30 81 26 H 99/52 96 10/19/23 23:22 81 26 H 99/52 96 10/19/23 23:00 80 26 H 97/56 10/19/23 22:30 82 26 H 89/51 95 10/19/23 20:00 50 10/19/23 19:30 88 25 H 10/19/23 19:15 50 10/19/23 19:00 88 26 H 96 10/19/23 18:30 89 26 H 96 10/19/23 18:00 89 26 H 96 50 10/19/23 17:30 89 26 H 96 50 10/19/23 17:00 90 26 H 96 50 10/19/23 16:35 88 10/19/23 16:30 90 26 H 96 50 10/19/23 16:00 98.5 F 87 27 H 95 50 10/19/23 15:52 89 10/19/23 15:50 50 10/19/23 15:30 89 26 H 96 50 10/19/23 15:00 90 26 H 96 50 10/19/23 14:30 90 26 H 95 50 10/19/23 14:00 90 28 H 95 50 10/19/23 13:30 90 26 H 95 50 Intake and Output 10/19/23 10/20/23 10/20/23 22:59 06:59 14:59 Intake Total 341.877 883.306 721.585 Output Total 450 370 540 Balance -108.123 513.306 181.585 Intake: IV 106 475 99.9 A-line 36 Invasive Line 8 20 Meropenem 1 gm In Sodium 100 99.9 Chloride 0.9% 100 ml @ 33 .3 mls/hr IVPB Q8HR [place] Rx#:[id number] Sodium Chloride 0.9% 1, 375 000 ml In Empty Bag 1 bag @ 75 mls/hr IV .[id number] [place] Rx#:[id number] Intake, IV Titration 235.877 408.306 561.685 Amount Norepinephrine 4 mg In 0 108.306 28.818 Sodium Chloride 0.9% 250 ml @ 0.03 MCG/KG/MIN 13. 945 mls/hr IV .[id number] [place] Rx#:[id number] Potassium Chloride 10 meq 400 In Water For Injection 1 100ml.bag @ 100 mls/hr IVPB Q1H [place] Rx#: [id number] fentaNYL (PF). 1,000 mcg 35.877 200 30.596 In Sodium Chloride 0.9% 80 ml @ 0.5 MCG/KG/HR 5. 865 mls/hr IV .Q17H4M [place] Rx#:[id number] propofoL 1,000 mg In 200 100 102.271 Empty Bag 1 bag @ 30 MCG/ KG/MIN 26.37 mls/hr IV . Q3H48M [place] Rx#:[id number] Tube Feeding 30 Blood Product 0 Unit 0 Other 30 Output: Urine 450 370 540 Other: Voiding Method Indwelling Catheter Indwelling Catheter # Bowel Movements 0 1 Weight 121.5 kg 121.5 kg Patient is an elderly male, laying in the bed, intubated. The propofol was turned off about 25 minutes ago. Patient was also on fentanyl, which also has been turned off about an hour ago. No obvious seizure-like activity noted. Patient is comatose with GCS of 4 (E2, V1, M1). Patient not responding to calling his name. On cranial nerve examination, pupils are equal, round and slightly reacting to light, visual alvarado cannot be checked. Oculocephalics are not present. Corneal reflexes are present. Patient is breathing over the ventilator at 27/min. Patient has a weak cough reflex, but no gag. On muscle strength testing, patient not responding to nailbed pressure or any noxious stimulus. Deep tendon reflexes are (right/left) biceps 1+/1, brachioradialis 1+/1, knees 2+/1+ plantars are flat. Sensory to touch cannot be assessed. Response to noxious stimulus as mentioned above. Cerebellar functions cannot be assessed. Tone is equal bilaterally. Gait deferred.. On general examination, there is no carotid bruit or murmur, S1-S2 audible. Chest is clear on consultation. Abdomen is soft nontender. No organomegaly, bowel sounds present. Patient has moderate peripheral edema. Results - Laboratory Findings CBC and BMP: 10/21/23 05:13 10/21/23 05:13 Abnormal Lab Findings: Abnormal Labs 09/27/23 09/27/23 09/27/23 22:53 22:53 22:53 WBC RBC Hgb Hct RDW Plt Count Neutrophils # 8.0 H Neutrophils # (Manual) Lymphocytes # Monocytes # Monocytes # (Manual) Basophils # Metamyelocytes # (Man) Myelocytes # (Manual) Nucleated RBCs PT INR APTT Fibrinogen ABG pH ABG pCO2 ABG pO2 ABG HCO3 ABG Total CO2 ABG O2 Saturation ABG Lactic Acid Sodium 118 L* Potassium Chloride 83 L Carbon Dioxide BUN 24 H Creatinine 1.26 H Glucose 189 H POC Glucose (mg/dL) Osmolality Plasma Lactic Acid Guillaume 4.1 H* Calcium 8.2 L Phosphorus Magnesium Ferritin Total Bilirubin AST 95 H ALT Lactate Dehydrogenase Creatine Kinase Total Creatine Kinase Troponin I C-Reactive Protein Total Protein Albumin Procalcitonin Urine Blood Urine RBC Urine Mucus Ur Random Sodium SARS-CoV-2 (PCR) Crossmatch 09/28/23 09/28/23 09/28/23 01:06 01:50 01:53 WBC RBC Hgb Hct RDW Plt Count Neutrophils # Neutrophils # (Manual) Lymphocytes # Monocytes # Monocytes # (Manual) Basophils # Metamyelocytes # (Man) Myelocytes # (Manual) Nucleated RBCs PT INR APTT Fibrinogen ABG pH ABG pCO2 ABG pO2 ABG HCO3 ABG Total CO2 ABG O2 Saturation ABG Lactic Acid Sodium Potassium Chloride Carbon Dioxide BUN Creatinine Glucose POC Glucose (mg/dL) Osmolality Plasma Lactic Acid Guillaume 3.1 H* Calcium Phosphorus Magnesium Ferritin Total Bilirubin AST ALT Lactate Dehydrogenase Creatine Kinase 1241 H* Total Creatine Kinase Troponin I C-Reactive Protein Total Protein Albumin Procalcitonin Urine Blood Trace H Urine RBC 17 H Urine Mucus Rare H Ur Random Sodium SARS-CoV-2 (PCR) Crossmatch 09/28/23 09/28/23 09/28/23 01:53 06:32 07:36 WBC RBC Hgb Hct RDW Plt Count Neutrophils # Neutrophils # (Manual) Lymphocytes # Monocytes # Monocytes # (Manual) Basophils # Metamyelocytes # (Man) Myelocytes # (Manual) Nucleated RBCs PT INR APTT Fibrinogen ABG pH ABG pCO2 ABG pO2 ABG HCO3 ABG Total CO2 ABG O2 Saturation ABG Lactic Acid Sodium 122 L Potassium Chloride 85 L Carbon Dioxide BUN 27 H Creatinine Glucose 116 H POC Glucose (mg/dL) Osmolality 260 L Plasma Lactic Acid Guillaume Calcium 8.1 L Phosphorus Magnesium Ferritin Total Bilirubin AST ALT Lactate Dehydrogenase Creatine Kinase Total Creatine Kinase 1036 H Troponin I C-Reactive Protein Total Protein Albumin Procalcitonin Urine Blood Urine RBC Urine Mucus Ur Random Sodium <20 L SARS-CoV-2 (PCR) Crossmatch 02/14/24 02/14/24 02/14/24 10:44 11:58 17:34 WBC RBC Hgb Hct RDW Plt Count Neutrophils # Neutrophils # (Manual) Lymphocytes # Monocytes # Monocytes # (Manual) Basophils # Metamyelocytes # (Man) Myelocytes # (Manual) Nucleated RBCs PT INR APTT Fibrinogen ABG pH ABG pCO2 ABG pO2 ABG HCO3 ABG Total CO2 ABG O2 Saturation ABG Lactic Acid Sodium 121 L Potassium Chloride 87 L Carbon Dioxide BUN 25 H Creatinine Glucose 105 H POC Glucose (mg/dL) Osmolality Plasma Lactic Acid Guillaume Calcium 7.9 L Phosphorus Magnesium Ferritin Total Bilirubin AST ALT Lactate Dehydrogenase Creatine Kinase 2669 H* Total Creatine Kinase Troponin I C-Reactive Protein Total Protein Albumin Procalcitonin Urine Blood Urine RBC Urine Mucus Ur Random Sodium SARS-CoV-2 (PCR) Detected A Crossmatch 09/29/23 09/29/23 09/29/23 08:32 08:32 08:32 WBC 14.9 H RBC Hgb Hct RDW Plt Count Neutrophils # 11.2 H Neutrophils # (Manual) Lymphocytes # Monocytes # 1.1 H Monocytes # (Manual) Basophils # Metamyelocytes # (Man) Myelocytes # (Manual) Nucleated RBCs PT INR APTT Fibrinogen ABG pH ABG pCO2 ABG pO2 ABG HCO3 ABG Total CO2 ABG O2 Saturation ABG Lactic Acid Sodium 122 L Potassium Chloride 91 L Carbon Dioxide BUN Creatinine Glucose 136 H POC Glucose (mg/dL) Osmolality Plasma Lactic Acid Guillaume Calcium 8.0 L Phosphorus Magnesium Ferritin Total Bilirubin AST 180 H ALT 52 H Lactate Dehydrogenase Creatine Kinase 4160 H* Total Creatine Kinase Troponin I C-Reactive Protein Total Protein 5.7 L Albumin 2.9 L Procalcitonin Urine Blood Urine RBC Urine Mucus Ur Random Sodium SARS-CoV-2 (PCR) Crossmatch 09/29/23 09/29/23 09/29/23 08:32 17:53 21:39 WBC RBC Hgb Hct RDW Plt Count Neutrophils # Neutrophils # (Manual) Lymphocytes # Monocytes # Monocytes # (Manual) Basophils # Metamyelocytes # (Man) Myelocytes # (Manual) Nucleated RBCs PT INR APTT Fibrinogen ABG pH ABG pCO2 ABG pO2 ABG HCO3 ABG Total CO2 ABG O2 Saturation ABG Lactic Acid Sodium 124 L Potassium Chloride Carbon Dioxide BUN Creatinine Glucose POC Glucose (mg/dL) 236 H Osmolality Plasma Lactic Acid Guillaume Calcium Phosphorus Magnesium Ferritin Total Bilirubin AST ALT Lactate Dehydrogenase Creatine Kinase Total Creatine Kinase Troponin I C-Reactive Protein Total Protein Albumin Procalcitonin 0.43 H Urine Blood Urine RBC Urine Mucus Ur Random Sodium SARS-CoV-2 (PCR) Crossmatch 09/30/23 09/30/23 09/30/23 05:50 08:18 08:18 WBC 14.9 H RBC Hgb 12.9 L Hct RDW Plt Count 146 L Neutrophils # 12.4 H Neutrophils # (Manual) Lymphocytes # Monocytes # Monocytes # (Manual) Basophils # Metamyelocytes # (Man) Myelocytes # (Manual) Nucleated RBCs PT INR APTT Fibrinogen ABG pH ABG pCO2 ABG pO2 ABG HCO3 ABG Total CO2 ABG O2 Saturation ABG Lactic Acid Sodium 126 L Potassium Chloride 94 L Carbon Dioxide BUN Creatinine Glucose 152 H POC Glucose (mg/dL) 166 H Osmolality Plasma Lactic Acid Guillaume Calcium 8.1 L Phosphorus Magnesium Ferritin Total Bilirubin AST 148 H ALT Lactate Dehydrogenase Creatine Kinase 2283 H* Total Creatine Kinase Troponin I C-Reactive Protein Total Protein 5.8 L Albumin 2.8 L Procalcitonin Urine Blood Urine RBC Urine Mucus Ur Random Sodium SARS-CoV-2 (PCR) Crossmatch 09/30/23 09/30/23 09/30/23 11:44 16:32 16:45 WBC RBC Hgb Hct RDW Plt Count Neutrophils # Neutrophils # (Manual) Lymphocytes # Monocytes # Monocytes # (Manual) Basophils # Metamyelocytes # (Man) Myelocytes # (Manual) Nucleated RBCs PT INR APTT Fibrinogen ABG pH 7.47 H ABG pCO2 ABG pO2 59 L* ABG HCO3 31 H ABG Total CO2 32 H ABG O2 Saturation 93.0 L ABG Lactic Acid Sodium Potassium Chloride Carbon Dioxide BUN Creatinine Glucose POC Glucose (mg/dL) 220 H 239 H Osmolality Plasma Lactic Acid Guillaume Calcium Phosphorus Magnesium Ferritin Total Bilirubin AST ALT Lactate Dehydrogenase Creatine Kinase Total Creatine Kinase Troponin I C-Reactive Protein Total Protein Albumin Procalcitonin Urine Blood Urine RBC Urine Mucus Ur Random Sodium SARS-CoV-2 (PCR) Crossmatch 09/30/23 10/01/23 10/01/23 20:08 06:14 07:13 WBC 13.9 H RBC Hgb Hct RDW Plt Count Neutrophils # 11.8 H Neutrophils # (Manual) Lymphocytes # Monocytes # Monocytes # (Manual) Basophils # Metamyelocytes # (Man) Myelocytes # (Manual) Nucleated RBCs PT INR APTT Fibrinogen ABG pH ABG pCO2 ABG pO2 ABG HCO3 ABG Total CO2 ABG O2 Saturation ABG Lactic Acid Sodium Potassium Chloride Carbon Dioxide BUN Creatinine Glucose POC Glucose (mg/dL) 160 H 124 H Osmolality Plasma Lactic Acid Guillaume Calcium Phosphorus Magnesium Ferritin Total Bilirubin AST ALT Lactate Dehydrogenase Creatine Kinase Total Creatine Kinase Troponin I C-Reactive Protein Total Protein Albumin Procalcitonin Urine Blood Urine RBC Urine Mucus Ur Random Sodium SARS-CoV-2 (PCR) Crossmatch 10/01/23 10/01/23 10/01/23 07:13 07:13 11:22 WBC RBC Hgb Hct RDW Plt Count Neutrophils # Neutrophils # (Manual) Lymphocytes # Monocytes # Monocytes # (Manual) Basophils # Metamyelocytes # (Man) Myelocytes # (Manual) Nucleated RBCs PT INR APTT Fibrinogen ABG pH ABG pCO2 ABG pO2 ABG HCO3 ABG Total CO2 ABG O2 Saturation ABG Lactic Acid Sodium 132 L 132 L Potassium 3.3 L 3.3 L Chloride 95 L 94 L Carbon Dioxide 33 H BUN Creatinine 0.65 L Glucose 118 H 120 H POC Glucose (mg/dL) 135 H Osmolality Plasma Lactic Acid Guillaume Calcium Phosphorus Magnesium Ferritin 912.0 H Total Bilirubin AST 101 H ALT Lactate Dehydrogenase 268 H Creatine Kinase Total Creatine Kinase Troponin I C-Reactive Protein 24.4 H Total Protein 5.8 L Albumin 2.9 L Procalcitonin Urine Blood Urine RBC Urine Mucus Ur Random Sodium SARS-CoV-2 (PCR) Crossmatch 10/01/23 10/01/23 10/02/23 16:38 20:26 06:22 WBC RBC Hgb Hct RDW Plt Count Neutrophils # Neutrophils # (Manual) Lymphocytes # Monocytes # Monocytes # (Manual) Basophils # Metamyelocytes # (Man) Myelocytes # (Manual) Nucleated RBCs PT INR APTT Fibrinogen ABG pH ABG pCO2 ABG pO2 ABG HCO3 ABG Total CO2 ABG O2 Saturation ABG Lactic Acid Sodium Potassium Chloride Carbon Dioxide BUN Creatinine Glucose POC Glucose (mg/dL) 157 H 137 H 111 H Osmolality Plasma Lactic Acid Guillaume Calcium Phosphorus Magnesium Ferritin Total Bilirubin AST ALT Lactate Dehydrogenase Creatine Kinase Total Creatine Kinase Troponin I C-Reactive Protein Total Protein Albumin Procalcitonin Urine Blood Urine RBC Urine Mucus Ur Random Sodium SARS-CoV-2 (PCR) Crossmatch 10/02/23 10/02/23 10/02/23 11:31 11:32 11:32 WBC RBC 4.08 L Hgb 12.3 L Hct 37.0 L RDW Plt Count Neutrophils # 8.5 H Neutrophils # (Manual) Lymphocytes # 0.8 L Monocytes # Monocytes # (Manual) Basophils # Metamyelocytes # (Man) Myelocytes # (Manual) Nucleated RBCs PT INR APTT Fibrinogen ABG pH ABG pCO2 ABG pO2 ABG HCO3 ABG Total CO2 ABG O2 Saturation ABG Lactic Acid Sodium 130 L Potassium 3.1 L Chloride Carbon Dioxide BUN Creatinine 0.51 L Glucose 118 H POC Glucose (mg/dL) 120 H Osmolality Plasma Lactic Acid Guillaume Calcium Phosphorus Magnesium Ferritin Total Bilirubin AST 94 H ALT Lactate Dehydrogenase Creatine Kinase Total Creatine Kinase Troponin I C-Reactive Protein Total Protein 5.3 L Albumin 2.6 L Procalcitonin Urine Blood Urine RBC Urine Mucus Ur Random Sodium SARS-CoV-2 (PCR) Crossmatch 10/03/23 10/03/23 10/03/23 09:17 11:12 11:12 WBC 11.3 H RBC Hgb Hct RDW Plt Count Neutrophils # Neutrophils # (Manual) 8.40 H Lymphocytes # Monocytes # Monocytes # (Manual) Basophils # Metamyelocytes # (Man) 0.23 H Myelocytes # (Manual) 0.11 H Nucleated RBCs PT INR APTT Fibrinogen ABG pH ABG pCO2 ABG pO2 ABG HCO3 ABG Total CO2 ABG O2 Saturation ABG Lactic Acid Sodium 133 L 132 L Potassium 3.2 L 3.3 L Chloride 97 L 97 L Carbon Dioxide 32 H BUN Creatinine 0.57 L 0.51 L Glucose 174 H 166 H POC Glucose (mg/dL) Osmolality Plasma Lactic Acid Guillaume Calcium Phosphorus Magnesium Ferritin 872.0 H Total Bilirubin AST 95 H 101 H ALT 53 H Lactate Dehydrogenase 312 H Creatine Kinase Total Creatine Kinase Troponin I C-Reactive Protein 6.5 H Total Protein 5.5 L 5.7 L Albumin 2.7 L 2.8 L Procalcitonin Urine Blood Urine RBC Urine Mucus Ur Random Sodium SARS-CoV-2 (PCR) Crossmatch 10/04/23 10/04/23 10/05/23 15:10 20:06 14:46 WBC 16.3 H RBC Hgb Hct RDW Plt Count Neutrophils # 14.1 H Neutrophils # (Manual) Lymphocytes # Monocytes # Monocytes # (Manual) Basophils # Metamyelocytes # (Man) Myelocytes # (Manual) Nucleated RBCs PT INR APTT Fibrinogen ABG pH ABG pCO2 ABG pO2 ABG HCO3 ABG Total CO2 ABG O2 Saturation ABG Lactic Acid Sodium 131 L Potassium Chloride Carbon Dioxide BUN Creatinine 0.61 L Glucose 183 H POC Glucose (mg/dL) 206 H Osmolality Plasma Lactic Acid Guillaume Calcium 8.3 L Phosphorus Magnesium Ferritin Total Bilirubin AST ALT Lactate Dehydrogenase Creatine Kinase Total Creatine Kinase Troponin I C-Reactive Protein Total Protein Albumin Procalcitonin Urine Blood Urine RBC Urine Mucus Ur Random Sodium SARS-CoV-2 (PCR) Crossmatch 10/05/23 10/05/23 10/05/23 14:46 18:57 20:50 WBC RBC Hgb Hct RDW Plt Count Neutrophils # Neutrophils # (Manual) Lymphocytes # Monocytes # Monocytes # (Manual) Basophils # Metamyelocytes # (Man) Myelocytes # (Manual) Nucleated RBCs PT INR APTT Fibrinogen ABG pH ABG pCO2 ABG pO2 ABG HCO3 ABG Total CO2 ABG O2 Saturation ABG Lactic Acid Sodium 132 L Potassium Chloride 96 L Carbon Dioxide BUN 22 H Creatinine Glucose 147 H POC Glucose (mg/dL) 122 H 142 H Osmolality Plasma Lactic Acid Guillaume Calcium Phosphorus Magnesium Ferritin 946.0 H Total Bilirubin AST 92 H ALT 77 H Lactate Dehydrogenase 386 H Creatine Kinase Total Creatine Kinase Troponin I C-Reactive Protein 7.3 H Total Protein 6.2 L Albumin 3.1 L Procalcitonin Urine Blood Urine RBC Urine Mucus Ur Random Sodium SARS-CoV-2 (PCR) Crossmatch 10/05/23 10/06/23 10/06/23 21:09 00:59 06:21 WBC 15.0 H RBC Hgb Hct RDW Plt Count Neutrophils # 12.0 H Neutrophils # (Manual) Lymphocytes # Monocytes # Monocytes # (Manual) Basophils # Metamyelocytes # (Man) Myelocytes # (Manual) Nucleated RBCs PT INR APTT Fibrinogen ABG pH >7.70 H* ABG pCO2 21 L ABG pO2 126 H ABG HCO3 27 H ABG Total CO2 28 H ABG O2 Saturation 92.3 L ABG Lactic Acid Sodium Potassium Chloride Carbon Dioxide BUN Creatinine Glucose POC Glucose (mg/dL) 145 H Osmolality Plasma Lactic Acid Guillaume Calcium Phosphorus Magnesium Ferritin Total Bilirubin AST ALT Lactate Dehydrogenase Creatine Kinase Total Creatine Kinase Troponin I C-Reactive Protein Total Protein Albumin Procalcitonin Urine Blood Urine RBC Urine Mucus Ur Random Sodium SARS-CoV-2 (PCR) Crossmatch 10/06/23 10/06/23 10/06/23 06:21 12:11 20:07 WBC RBC Hgb Hct RDW Plt Count Neutrophils # Neutrophils # (Manual) Lymphocytes # Monocytes # Monocytes # (Manual) Basophils # Metamyelocytes # (Man) Myelocytes # (Manual) Nucleated RBCs PT INR APTT Fibrinogen ABG pH ABG pCO2 ABG pO2 ABG HCO3 ABG Total CO2 ABG O2 Saturation ABG Lactic Acid Sodium 133 L Potassium 3.2 L Chloride 96 L Carbon Dioxide BUN 28 H Creatinine Glucose 110 H POC Glucose (mg/dL) 154 H 175 H Osmolality Plasma Lactic Acid Guillaume Calcium Phosphorus Magnesium Ferritin Total Bilirubin AST ALT Lactate Dehydrogenase Creatine Kinase Total Creatine Kinase Troponin I C-Reactive Protein Total Protein Albumin Procalcitonin Urine Blood Urine RBC Urine Mucus Ur Random Sodium SARS-CoV-2 (PCR) Crossmatch 10/07/23 10/07/23 10/07/23 04:50 04:50 06:30 WBC 15.7 H RBC 4.26 L Hgb 12.4 L Hct 37.9 L RDW Plt Count Neutrophils # Neutrophils # (Manual) Lymphocytes # Monocytes # Monocytes # (Manual) Basophils # Metamyelocytes # (Man) Myelocytes # (Manual) Nucleated RBCs PT INR APTT Fibrinogen ABG pH ABG pCO2 ABG pO2 ABG HCO3 ABG Total CO2 ABG O2 Saturation ABG Lactic Acid Sodium 134 L Potassium Chloride Carbon Dioxide BUN 32 H Creatinine Glucose 132 H POC Glucose (mg/dL) 141 H Osmolality Plasma Lactic Acid Gu[place]ume Calcium Phosphorus Magnesium Ferritin Total Bilirubin AST ALT Lactate Dehydrogenase Creatine Kinase Total Creatine Kinase Troponin I C-Reactive Protein Total Protein Albumin Procalcitonin Urine Blood Urine RBC Urine Mucus Ur Random Sodium SARS-CoV-2 (PCR) Crossmatch 10/07/23 10/07/23 10/07/23 11:59 16:55 21:02 WBC RBC Hgb Hct RDW Plt Count Neutrophils # Neutrophils # (Manual) Lymphocytes # Monocytes # Monocytes # (Manual) Basophils # Metamyelocytes # (Man) Myelocytes # (Manual) Nucleated RBCs PT INR APTT Fibrinogen ABG pH ABG pCO2 ABG pO2 ABG HCO3 ABG Total CO2 ABG O2 Saturation ABG Lactic Acid Sodium Potassium Chloride Carbon Dioxide BUN Creatinine Glucose POC Glucose (mg/dL) 155 H 148 H 145 H Osmolality Plasma Lactic Acid [place] Calcium Phosphorus Magnesium Ferritin Total Bilirubin AST ALT Lactate Dehydrogenase Creatine Kinase Total Creatine Kinase Troponin I C-Reactive Protein Total Protein Albumin Procalcitonin Urine Blood Urine RBC Urine Mucus Ur Random Sodium SARS-CoV-2 (PCR) Crossmatch 10/08/23 10/08/23 10/08/23 04:11 04:11 07:08 WBC 14.3 H RBC 4.05 L Hgb 11.8 L Hct 36.6 L RDW Plt Count Neutrophils # 12.0 H Neutrophils # (Manual) Lymphocytes # Monocytes # Monocytes # (Manual) Basophils # Metamyelocytes # (Man) Myelocytes # (Manual) Nucleated RBCs PT INR APTT Fibrinogen ABG pH ABG pCO2 ABG pO2 ABG HCO3 ABG Total CO2 ABG O2 Saturation ABG Lactic Acid Sodium 131 L Potassium Chloride 96 L Carbon Dioxide 31 H BUN 37 H Creatinine Glucose 137 H POC Glucose (mg/dL) 138 H Osmolality Plasma Lactic Acid [place] Calcium Phosphorus Magnesium Ferritin Total Bilirubin AST ALT Lactate Dehydrogenase Creatine Kinase Total Creatine Kinase Troponin I C-Reactive Protein Total Protein Albumin Procalcitonin Urine Blood Urine RBC Urine Mucus Ur Random Sodium SARS-CoV-2 (PCR) Crossmatch 10/08/23 10/08/23 10/08/23 12:26 16:50 21:04 WBC RBC Hgb Hct RDW Plt Count Neutrophils # Neutrophils # (Manual) Lymphocytes # Monocytes # Monocytes # (Manual) Basophils # Metamyelocytes # (Man) Myelocytes # (Manual) Nucleated RBCs PT INR APTT Fibrinogen ABG pH ABG pCO2 ABG pO2 ABG HCO3 ABG Total CO2 ABG O2 Saturation ABG Lactic Acid Sodium Potassium Chloride Carbon Dioxide BUN Creatinine Glucose POC Glucose (mg/dL) 114 H 140 H 175 H Osmolality Plasma Lactic Acid [place] Calcium Phosphorus Magnesium Ferritin Total Bilirubin AST ALT Lactate Dehydrogenase Creatine Kinase Total Creatine Kinase Troponin I C-Reactive Protein Total Protein Albumin Procalcitonin Urine Blood Urine RBC Urine Mucus Ur Random Sodium SARS-CoV-2 (PCR) Crossmatch 10/09/23 10/09/23 10/09/23 03:49 03:49 06:59 WBC 17.1 H RBC 4.18 L Hgb 12.7 L Hct 37.7 L RDW Plt Count Neutrophils # 14.7 H Neutrophils # (Manual) Lymphocytes # Monocytes # Monocytes # (Manual) Basophils # Metamyelocytes # (Man) Myelocytes # (Manual) Nucleated RBCs PT INR APTT Fibrinogen ABG pH ABG pCO2 ABG pO2 ABG HCO3 ABG Total CO2 ABG O2 Saturation ABG Lactic Acid Sodium 130 L Potassium Chloride 92 L Carbon Dioxide 31 H BUN 37 H Creatinine Glucose 135 H POC Glucose (mg/dL) 118 H Osmolality Plasma Lactic Acid [place] Calcium Phosphorus Magnesium Ferritin Total Bilirubin AST ALT Lactate Dehydrogenase Creatine Kinase Total Creatine Kinase Troponin I C-Reactive Protein Total Protein Albumin Procalcitonin Urine Blood Urine RBC Urine Mucus Ur Random Sodium SARS-CoV-2 (PCR) Crossmatch 10/09/23 10/09/23 10/09/23 11:22 16:08 16:32 WBC RBC Hgb Hct RDW Plt Count Neutrophils # Neutrophils # (Manual) Lymphocytes # Monocytes # Monocytes # (Manual) Basophils # Metamyelocytes # (Man) Myelocytes # (Manual) Nucleated RBCs PT INR APTT Fibrinogen ABG pH ABG pCO2 ABG pO2 ABG HCO3 ABG Total CO2 ABG O2 Saturation ABG Lactic Acid Sodium Potassium Chloride Carbon Dioxide BUN Creatinine Glucose POC Glucose (mg/dL) 160 H 180 H 182 H Osmolality Plasma Lactic Acid [place] Calcium Phosphorus Magnesium Ferritin Total Bilirubin AST ALT Lactate Dehydrogenase Creatine Kinase Total Creatine Kinase Troponin I C-Reactive Protein Total Protein Albumin Procalcitonin Urine Blood Urine RBC Urine Mucus Ur Random Sodium SARS-CoV-2 (PCR) Crossmatch 10/09/23 10/10/23 10/10/23 20:00 03:58 03:58 WBC 16.5 H RBC Hgb 12.5 L Hct 38.4 L RDW Plt Count Neutrophils # Neutrophils # (Manual) Lymphocytes # Monocytes # Monocytes # (Manual) Basophils # Metamyelocytes # (Man) Myelocytes # (Manual) Nucleated RBCs PT INR APTT Fibrinogen ABG pH ABG pCO2 ABG pO2 ABG HCO3 ABG Total CO2 ABG O2 Saturation ABG Lactic Acid Sodium 130 L Potassium Chloride 90 L Carbon Dioxide 32 H BUN 38 H Creatinine Glucose 148 H POC Glucose (mg/dL) 189 H Osmolality Plasma Lactic Acid [place] Calcium Phosphorus Magnesium Ferritin Total Bilirubin AST ALT Lactate Dehydrogenase Creatine Kinase Total Creatine Kinase Troponin I C-Reactive Protein Total Protein Albumin Procalcitonin Urine Blood Urine RBC Urine Mucus Ur Random Sodium SARS-CoV-2 (PCR) Crossmatch 10/10/23 10/10/23 10/10/23 07:28 11:22 16:11 WBC RBC Hgb Hct RDW Plt Count Neutrophils # Neutrophils # (Manual) Lymphocytes # Monocytes # Monocytes # (Manual) Basophils # Metamyelocytes # (Man) Myelocytes # (Manual) Nucleated RBCs PT INR APTT Fibrinogen ABG pH ABG pCO2 ABG pO2 ABG HCO3 ABG Total CO2 ABG O2 Saturation ABG Lactic Acid Sodium Potassium Chloride Carbon Dioxide BUN Creatinine Glucose POC Glucose (mg/dL) 123 H 120 H 122 H Osmolality Plasma Lactic Acid [place] Calcium Phosphorus Magnesium Ferritin Total Bilirubin AST ALT Lactate Dehydrogenase Creatine Kinase Total Creatine Kinase Troponin I C-Reactive Protein Total Protein Albumin Procalcitonin Urine Blood Urine RBC Urine Mucus Ur Random Sodium SARS-CoV-2 (PCR) Crossmatch 10/10/23 10/11/23 10/11/23 20:22 03:46 03:46 WBC 18.6 H RBC Hgb 12.6 L Hct 38.7 L RDW Plt Count Neutrophils # Neutrophils # (Manual) Lymphocytes # Monocytes # Monocytes # (Manual) Basophils # Metamyelocytes # (Man) Myelocytes # (Manual) Nucleated RBCs PT INR APTT Fibrinogen ABG pH ABG pCO2 ABG pO2 ABG HCO3 ABG Total CO2 ABG O2 Saturation ABG Lactic Acid Sodium 131 L Potassium Chloride 90 L Carbon Dioxide 32 H BUN 37 H Creatinine Glucose 134 H POC Glucose (mg/dL) 145 H Osmolality Plasma Lactic Acid [place] Calcium Phosphorus Magnesium Ferritin Total Bilirubin AST ALT Lactate Dehydrogenase Creatine Kinase Total Creatine Kinase Troponin I C-Reactive Protein Total Protein Albumin Procalcitonin Urine Blood Urine RBC Urine Mucus Ur Random Sodium SARS-CoV-2 (PCR) Crossmatch 10/11/23 10/11/23 10/11/23 06:30 07:26 07:26 WBC 18.8 H RBC Hgb Hct RDW Plt Count Neutrophils # Neutrophils # (Manual) Lymphocytes # Monocytes # Monocytes # (Manual) Basophils # Metamyelocytes # (Man) Myelocytes # (Manual) Nucleated RBCs PT INR APTT Fibrinogen ABG pH ABG pCO2 ABG pO2 ABG HCO3 ABG Total CO2 ABG O2 Saturation ABG Lactic Acid Sodium 130 L Potassium Chloride 92 L Carbon Dioxide BUN 40 H Creatinine Glucose 134 H POC Glucose (mg/dL) 134 H Osmolality Plasma Lactic Acid [place] Calcium Phosphorus Magnesium Ferritin Total Bilirubin AST ALT Lactate Dehydrogenase Creatine Kinase Total Creatine Kinase Troponin I C-Reactive Protein Total Protein Albumin Procalcitonin Urine Blood Urine RBC Urine Mucus Ur Random Sodium SARS-CoV-2 (PCR) Crossmatch 02/27/24 02/27/24 02/27/24 11:52 16:34 20:34 WBC RBC Hgb Hct RDW Plt Count Neutrophils # Neutrophils # (Manual) Lymphocytes # Monocytes # Monocytes # (Manual) Basophils # Metamyelocytes # (Man) Myelocytes # (Manual) Nucleated RBCs PT INR APTT Fibrinogen ABG pH ABG pCO2 ABG pO2 ABG HCO3 ABG Total CO2 ABG O2 Saturation ABG Lactic Acid Sodium Potassium Chloride Carbon Dioxide BUN Creatinine Glucose POC Glucose (mg/dL) 130 H 136 H 143 H Osmolality Plasma Lactic Acid [place] Calcium Phosphorus Magnesium Ferritin Total Bilirubin AST ALT Lactate Dehydrogenase Creatine Kinase Total Creatine Kinase Troponin I C-Reactive Protein Total Protein Albumin Procalcitonin Urine Blood Urine RBC Urine Mucus Ur Random Sodium SARS-CoV-2 (PCR) Crossmatch 10/12/23 10/12/23 10/12/23 06:15 07:43 07:43 WBC 18.4 H RBC 4.28 L Hgb 12.1 L Hct 38.6 L RDW Plt Count Neutrophils # Neutrophils # (Manual) Lymphocytes # Monocytes # Monocytes # (Manual) Basophils # Metamyelocytes # (Man) Myelocytes # (Manual) Nucleated RBCs PT INR APTT Fibrinogen ABG pH ABG pCO2 ABG pO2 ABG HCO3 ABG Total CO2 ABG O2 Saturation ABG Lactic Acid Sodium Potassium Chloride Carbon Dioxide BUN Creatinine Glucose POC Glucose (mg/dL) 132 H Osmolality Plasma Lactic Acid [place] Calcium Phosphorus Magnesium Ferritin Total Bilirubin AST ALT Lactate Dehydrogenase Creatine Kinase Total Creatine Kinase Troponin I C-Reactive Protein Total Protein Albumin Procalcitonin 0.18 H Urine Blood Urine RBC Urine Mucus Ur Random Sodium SARS-CoV-2 (PCR) Crossmatch 10/12/23 10/12/23 10/12/23 07:43 11:46 16:39 WBC RBC Hgb Hct RDW Plt Count Neutrophils # Neutrophils # (Manual) Lymphocytes # Monocytes # Monocytes # (Manual) Basophils # Metamyelocytes # (Man) Myelocytes # (Manual) Nucleated RBCs PT INR APTT Fibrinogen ABG pH ABG pCO2 ABG pO2 ABG HCO3 ABG Total CO2 ABG O2 Saturation ABG Lactic Acid Sodium 130 L Potassium Chloride 91 L Carbon Dioxide BUN 36 H Creatinine Glucose 159 H POC Glucose (mg/dL) 155 H 130 H Osmolality Plasma Lactic Acid [place] Calcium Phosphorus Magnesium Ferritin Total Bilirubin AST ALT Lactate Dehydrogenase Creatine Kinase Total Creatine Kinase Troponin I C-Reactive Protein 19.3 H Total Protein Albumin Procalcitonin Urine Blood Urine RBC Urine Mucus Ur Random Sodium SARS-CoV-2 (PCR) Crossmatch 10/12/23 10/13/23 10/13/23 20:23 06:21 06:22 WBC RBC Hgb Hct RDW Plt Count Neutrophils # Neutrophils # (Manual) Lymphocytes # Monocytes # Monocytes # (Manual) Basophils # Metamyelocytes # (Man) Myelocytes # (Manual) Nucleated RBCs PT INR APTT Fibrinogen ABG pH ABG pCO2 ABG pO2 ABG HCO3 ABG Total CO2 ABG O2 Saturation ABG Lactic Acid Sodium 130 L Potassium 3.2 L Chloride 90 L Carbon Dioxide 33 H BUN 27 H Creatinine Glucose 129 H POC Glucose (mg/dL) 140 H 144 H Osmolality Plasma Lactic Acid [place] Calcium 8.3 L Phosphorus Magnesium Ferritin Total Bilirubin AST ALT Lactate Dehydrogenase Creatine Kinase Total Creatine Kinase Troponin I C-Reactive Protein Total Protein Albumin Procalcitonin Urine Blood Urine RBC Urine Mucus Ur Random Sodium SARS-CoV-2 (PCR) Crossmatch 10/13/23 10/13/23 10/13/23 11:55 16:43 20:01 WBC RBC Hgb Hct RDW Plt Count Neutrophils # Neutrophils # (Manual) Lymphocytes # Monocytes # Monocytes # (Manual) Basophils # Metamyelocytes # (Man) Myelocytes # (Manual) Nucleated RBCs PT INR APTT Fibrinogen ABG pH ABG pCO2 ABG pO2 ABG HCO3 ABG Total CO2 ABG O2 Saturation ABG Lactic Acid Sodium Potassium Chloride Carbon Dioxide BUN Creatinine Glucose POC Glucose (mg/dL) 126 H 142 H 184 H Osmolality Plasma Lactic Acid [place] Calcium Phosphorus Magnesium Ferritin Total Bilirubin AST ALT Lactate Dehydrogenase Creatine Kinase Total Creatine Kinase Troponin I C-Reactive Protein Total Protein Albumin Procalcitonin Urine Blood Urine RBC Urine Mucus Ur Random Sodium SARS-CoV-2 (PCR) Crossmatch 10/14/23 10/14/23 10/14/23 05:54 09:00 09:00 WBC 12.0 H RBC 4.01 L Hgb 12.0 L Hct 36.9 L RDW Plt Count Neutrophils # 7.8 H Neutrophils # (Manual) Lymphocytes # Monocytes # 1.4 H Monocytes # (Manual) Basophils # Metamyelocytes # (Man) Myelocytes # (Manual) Nucleated RBCs PT INR APTT Fibrinogen ABG pH ABG pCO2 ABG pO2 ABG HCO3 ABG Total CO2 ABG O2 Saturation ABG Lactic Acid Sodium Potassium Chloride Carbon Dioxide BUN Creatinine Glucose POC Glucose (mg/dL) 126 H Osmolality Plasma Lactic Acid [place] Calcium Phosphorus Magnesium Ferritin Total Bilirubin AST ALT Lactate Dehydrogenase Creatine Kinase Total Creatine Kinase Troponin I C-Reactive Protein 23.3 H Total Protein Albumin Procalcitonin Urine Blood Urine RBC Urine Mucus Ur Random Sodium SARS-CoV-2 (PCR) Crossmatch 10/14/23 10/14/23 10/14/23 09:00 10:58 16:18 WBC RBC Hgb Hct RDW Plt Count Neutrophils # Neutrophils # (Manual) Lymphocytes # Monocytes # Monocytes # (Manual) Basophils # Metamyelocytes # (Man) Myelocytes # (Manual) Nucleated RBCs PT INR APTT Fibrinogen ABG pH ABG pCO2 ABG pO2 ABG HCO3 ABG Total CO2 ABG O2 Saturation ABG Lactic Acid Sodium 127 L Potassium Chloride 91 L Carbon Dioxide BUN 26 H Creatinine Glucose 144 H POC Glucose (mg/dL) 153 H 131 H Osmolality Plasma Lactic Acid [place] Calcium Phosphorus Magnesium Ferritin Total Bilirubin 1.6 H AST ALT 50 H Lactate Dehydrogenase Creatine Kinase Total Creatine Kinase Troponin I C-Reactive Protein Total Protein 6.1 L Albumin 2.9 L Procalcitonin Urine Blood Urine RBC Urine Mucus Ur Random Sodium SARS-CoV-2 (PCR) Crossmatch 10/14/23 10/14/23 10/14/23 17:00 17:54 18:30 WBC 31.0 H RBC 4.01 L Hgb 12.0 L Hct 36.7 L RDW Plt Count Neutrophils # Neutrophils # (Manual) Lymphocytes # Monocytes # Monocytes # (Manual) Basophils # Metamyelocytes # (Man) Myelocytes # (Manual) Nucleated RBCs PT INR APTT Fibrinogen ABG pH 7.49 H ABG pCO2 ABG pO2 63 L ABG HCO3 32 H ABG Total CO2 34 H ABG O2 Saturation 92.1 L ABG Lactic Acid Sodium Potassium Chloride Carbon Dioxide BUN Creatinine Glucose POC Glucose (mg/dL) 151 H Osmolality Plasma Lactic Acid [place] Calcium Phosphorus Magnesium Ferritin Total Bilirubin AST ALT Lactate Dehydrogenase Creatine Kinase Total Creatine Kinase Troponin I C-Reactive Protein Total Protein Albumin Procalcitonin Urine Blood Urine RBC Urine Mucus Ur Random Sodium SARS-CoV-2 (PCR) Crossmatch 10/14/23 10/14/23 10/14/23 18:30 18:30 20:45 WBC RBC Hgb Hct RDW Plt Count Neutrophils # Neutrophils # (Manual) Lymphocytes # Monocytes # Monocytes # (Manual) Basophils # Metamyelocytes # (Man) Myelocytes # (Manual) Nucleated RBCs PT INR APTT Fibrinogen ABG pH ABG pCO2 ABG pO2 53 L* ABG HCO3 26 H ABG Total CO2 27 H ABG O2 Saturation 85.9 L ABG Lactic Acid Sodium 128 L Potassium 3.3 L Chloride 88 L Carbon Dioxide BUN 24 H Creatinine Glucose 256 H POC Glucose (mg/dL) Osmolality Plasma Lactic Acid [place] Calcium Phosphorus Magnesium 2.6 H Ferritin Total Bilirubin 1.8 H AST ALT Lactate Dehydrogenase Creatine Kinase Total Creatine Kinase Troponin I 0.790 H* C-Reactive Protein Total Protein 6.1 L Albumin 2.9 L Procalcitonin Urine Blood Urine RBC Urine Mucus Ur Random Sodium SARS-CoV-2 (PCR) Crossmatch 10/14/23 10/14/23 10/14/23 22:45 22:45 22:50 WBC 30.1 H RBC 3.56 L Hgb 10.9 L Hct 33.1 L RDW Plt Count Neutrophils # 27.0 H Neutrophils # (Manual) Lymphocytes # Monocytes # 1.7 H Monocytes # (Manual) Basophils # Metamyelocytes # (Man) Myelocytes # (Manual) Nucleated RBCs PT INR APTT Fibrinogen ABG pH ABG pCO2 ABG pO2 ABG HCO3 ABG Total CO2 ABG O2 Saturation ABG Lactic Acid 6.8 H* Sodium 128 L Potassium Chloride 88 L Carbon Dioxide 31 H BUN 25 H Creatinine Glucose 354 H POC Glucose (mg/dL) Osmolality Plasma Lactic Acid [place] Calcium 7.9 L Phosphorus Magnesium Ferritin Total Bilirubin 2.0 H AST 302 H ALT 52 H Lactate Dehydrogenase Creatine Kinase Total Creatine Kinase Troponin I C-Reactive Protein Total Protein 5.4 L Albumin 2.4 L Procalcitonin Urine Blood Urine RBC Urine Mucus Ur Random Sodium SARS-CoV-2 (PCR) Crossmatch 10/14/23 10/15/23 10/15/23 23:24 02:20 03:13 WBC RBC Hgb Hct RDW Plt Count Neutrophils # Neutrophils # (Manual) Lymphocytes # Monocytes # Monocytes # (Manual) Basophils # Metamyelocytes # (Man) Myelocytes # (Manual) Nucleated RBCs PT 13.5 H INR 1.3 H APTT Fibrinogen 530 H ABG pH ABG pCO2 ABG pO2 ABG HCO3 ABG Total CO2 ABG O2 Saturation ABG Lactic Acid Sodium Potassium Chloride Carbon Dioxide BUN Creatinine Glucose POC Glucose (mg/dL) Osmolality Plasma Lactic Acid [place]ume 4.7 H* Calcium Phosphorus Magnesium Ferritin Total Bilirubin AST ALT Lactate Dehydrogenase Creatine Kinase Total Creatine Kinase Troponin I C-Reactive Protein Total Protein Albumin Procalcitonin Urine Blood Urine RBC Urine Mucus Ur Random Sodium SARS-CoV-2 (PCR) Crossmatch 10/15/23 10/15/23 10/15/23 03:13 03:13 03:13 WBC 24.6 H RBC 3.47 L Hgb 10.7 L Hct 31.9 L RDW Plt Count Neutrophils # 19.9 H Neutrophils # (Manual) Lymphocytes # Monocytes # 1.9 H Monocytes # (Manual) Basophils # Metamyelocytes # (Man) Myelocytes # (Manual) Nucleated RBCs PT INR APTT Fibrinogen ABG pH ABG pCO2 ABG pO2 ABG HCO3 ABG Total CO2 ABG O2 Saturation ABG Lactic Acid Sodium 128 L Potassium Chloride 89 L Carbon Dioxide 37 H BUN 27 H Creatinine Glucose 307 H POC Glucose (mg/dL) Osmolality Plasma Lactic Acid [place] Calcium 7.6 L Phosphorus Magnesium Ferritin Total Bilirubin AST ALT Lactate Dehydrogenase 1478 H Creatine Kinase Total Creatine Kinase Troponin I C-Reactive Protein 21.0 H Total Protein Albumin Procalcitonin Urine Blood Urine RBC Urine Mucus Ur Random Sodium SARS-CoV-2 (PCR) Crossmatch 10/15/23 10/15/23 10/15/23 03:13 05:57 06:15 WBC RBC Hgb Hct RDW Plt Count Neutrophils # Neutrophils # (Manual) Lymphocytes # Monocytes # Monocytes # (Manual) Basophils # Metamyelocytes # (Man) Myelocytes # (Manual) Nucleated RBCs PT INR APTT Fibrinogen ABG pH ABG pCO2 53 H ABG pO2 213 H ABG HCO3 36 H ABG Total CO2 38 H ABG O2 Saturation 98.6 H ABG Lactic Acid Sodium Potassium Chloride Carbon Dioxide BUN Creatinine Glucose POC Glucose (mg/dL) Osmolality Plasma Lactic Acid Guillaume 4.0 H* Calcium Phosphorus Magnesium Ferritin Total Bilirubin AST ALT Lactate Dehydrogenase Creatine Kinase Total Creatine Kinase Troponin I C-Reactive Protein Total Protein Albumin Procalcitonin 2.08 H Urine Blood Urine RBC Urine Mucus Ur Random Sodium SARS-CoV-2 (PCR) Crossmatch 10/15/23 10/15/23 10/15/23 06:15 06:15 08:55 WBC RBC Hgb Hct RDW Plt Count Neutrophils # Neutrophils # (Manual) Lymphocytes # Monocytes # Monocytes # (Manual) Basophils # Metamyelocytes # (Man) Myelocytes # (Manual) Nucleated RBCs PT INR APTT Fibrinogen ABG pH ABG pCO2 ABG pO2 ABG HCO3 ABG Total CO2 ABG O2 Saturation ABG Lactic Acid Sodium Potassium Chloride Carbon Dioxide BUN Creatinine Glucose POC Glucose (mg/dL) 315 H Osmolality Plasma Lactic Acid [place]ume Calcium Phosphorus Magnesium Ferritin Total Bilirubin 2.0 H AST 587 H ALT 91 H Lactate Dehydrogenase 1932 H Creatine Kinase 6723 H* Total Creatine Kinase Troponin I C-Reactive Protein Total Protein 5.0 L Albumin 2.2 L Procalcitonin Urine Blood Urine RBC Urine Mucus Ur Random Sodium SARS-CoV-2 (PCR) Crossmatch 10/15/23 10/15/23 10/15/23 08:55 08:55 08:55 WBC RBC Hgb Hct RDW Plt Count Neutrophils # Neutrophils # (Manual) Lymphocytes # Monocytes # Monocytes # (Manual) Basophils # Metamyelocytes # (Man) Myelocytes # (Manual) Nucleated RBCs PT INR APTT 39.9 H Fibrinogen ABG pH ABG pCO2 ABG pO2 ABG HCO3 ABG Total CO2 ABG O2 Saturation ABG Lactic Acid Sodium Potassium Chloride Carbon Dioxide BUN Creatinine Glucose POC Glucose (mg/dL) Osmolality Plasma Lactic Acid [place] Calcium Phosphorus Magnesium Ferritin Total Bilirubin AST ALT Lactate Dehydrogenase 1958 H Creatine Kinase Total Creatine Kinase Troponin I 282.000 H* C-Reactive Protein Total Protein Albumin Procalcitonin Urine Blood Urine RBC Urine Mucus Ur Random Sodium SARS-CoV-2 (PCR) Crossmatch 10/15/23 10/15/23 10/15/23 12:44 15:50 15:50 WBC RBC Hgb Hct RDW Plt Count Neutrophils # Neutrophils # (Manual) Lymphocytes # Monocytes # Monocytes # (Manual) Basophils # Metamyelocytes # (Man) Myelocytes # (Manual) Nucleated RBCs PT INR APTT 79.4 H Fibrinogen ABG pH ABG pCO2 ABG pO2 ABG HCO3 ABG Total CO2 ABG O2 Saturation ABG Lactic Acid Sodium Potassium Chloride Carbon Dioxide BUN Creatinine Glucose POC Glucose (mg/dL) 270 H Osmolality Plasma Lactic Acid [place]ume Calcium Phosphorus Magnesium Ferritin Total Bilirubin AST ALT Lactate Dehydrogenase 2327 H Creatine Kinase Total Creatine Kinase Troponin I C-Reactive Protein Total Protein Albumin Procalcitonin Urine Blood Urine RBC Urine Mucus Ur Random Sodium SARS-CoV-2 (PCR) Crossmatch 03/02/24 03/02/24 03/02/24 16:41 20:06 22:56 WBC RBC Hgb Hct RDW Plt Count Neutrophils # Neutrophils # (Manual) Lymphocytes # Monocytes # Monocytes # (Manual) Basophils # Metamyelocytes # (Man) Myelocytes # (Manual) Nucleated RBCs PT INR APTT Fibrinogen 504 H ABG pH ABG pCO2 ABG pO2 ABG HCO3 ABG Total CO2 ABG O2 Saturation ABG Lactic Acid Sodium Potassium Chloride Carbon Dioxide BUN Creatinine Glucose POC Glucose (mg/dL) 204 H 216 H Osmolality Plasma Lactic Acid [place]ume Calcium Phosphorus Magnesium Ferritin Total Bilirubin AST ALT Lactate Dehydrogenase Creatine Kinase Total Creatine Kinase Troponin I C-Reactive Protein Total Protein Albumin Procalcitonin Urine Blood Urine RBC Urine Mucus Ur Random Sodium SARS-CoV-2 (PCR) Crossmatch 10/15/23 10/15/23 10/15/23 22:56 22:56 23:44 WBC 38.6 H RBC 3.03 L Hgb 9.3 L Hct 27.9 L RDW Plt Count Neutrophils # Neutrophils # (Manual) Lymphocytes # Monocytes # Monocytes # (Manual) Basophils # Metamyelocytes # (Man) Myelocytes # (Manual) Nucleated RBCs PT INR APTT Fibrinogen ABG pH ABG pCO2 ABG pO2 ABG HCO3 ABG Total CO2 ABG O2 Saturation ABG Lactic Acid Sodium Potassium Chloride Carbon Dioxide BUN Creatinine Glucose POC Glucose (mg/dL) 199 H Osmolality Plasma Lactic Acid [place]ume Calcium Phosphorus Magnesium Ferritin Total Bilirubin AST ALT Lactate Dehydrogenase 2285 H Creatine Kinase Total Creatine Kinase Troponin I C-Reactive Protein Total Protein Albumin Procalcitonin Urine Blood Urine RBC Urine Mucus Ur Random Sodium SARS-CoV-2 (PCR) Crossmatch 10/16/23 10/16/23 10/16/23 04:14 04:15 04:15 WBC 37.6 H RBC 2.72 L Hgb 8.7 L Hct 24.8 L RDW Plt Count Neutrophils # 29.7 H Neutrophils # (Manual) Lymphocytes # Monocytes # 3.4 H Monocytes # (Manual) Basophils # 0.3 H Metamyelocytes # (Man) Myelocytes # (Manual) Nucleated RBCs PT INR APTT Fibrinogen ABG pH ABG pCO2 ABG pO2 ABG HCO3 ABG Total CO2 ABG O2 Saturation ABG Lactic Acid Sodium 129 L Potassium Chloride 95 L Carbon Dioxide 33 H BUN 43 H Creatinine 1.97 H Glucose 155 H POC Glucose (mg/dL) 183 H Osmolality Plasma Lactic Acid Guillaume Calcium 6.9 L Phosphorus 4.6 H Magnesium Ferritin Total Bilirubin 1.6 H AST 491 H ALT 147 H Lactate Dehydrogenase Creatine Kinase Total Creatine Kinase Troponin I C-Reactive Protein Total Protein 4.7 L Albumin 2.0 L Procalcitonin Urine Blood Urine RBC Urine Mucus Ur Random Sodium SARS-CoV-2 (PCR) Crossmatch 10/16/23 10/16/23 10/16/23 05:16 07:01 08:30 WBC RBC Hgb Hct RDW Plt Count Neutrophils # Neutrophils # (Manual) Lymphocytes # Monocytes # Monocytes # (Manual) Basophils # Metamyelocytes # (Man) Myelocytes # (Manual) Nucleated RBCs PT INR APTT Fibrinogen ABG pH 7.46 H ABG pCO2 ABG pO2 129 H ABG HCO3 32 H ABG Total CO2 33 H ABG O2 Saturation 98.0 H ABG Lactic Acid Sodium Potassium Chloride Carbon Dioxide BUN Creatinine Glucose POC Glucose (mg/dL) 185 H Osmolality Plasma Lactic Acid [place]ume Calcium Phosphorus Magnesium Ferritin Total Bilirubin AST ALT Lactate Dehydrogenase 1948 H Creatine Kinase Total Creatine Kinase Troponin I C-Reactive Protein Total Protein Albumin Procalcitonin Urine Blood Urine RBC Urine Mucus Ur Random Sodium SARS-CoV-2 (PCR) Crossmatch 10/16/23 10/16/23 10/16/23 12:15 12:15 14:30 WBC 33.6 H RBC 2.45 L Hgb 7.6 L Hct 22.7 L RDW Plt Count Neutrophils # Neutrophils # (Manual) Lymphocytes # Monocytes # Monocytes # (Manual) Basophils # Metamyelocytes # (Man) Myelocytes # (Manual) Nucleated RBCs PT INR APTT Fibrinogen ABG pH ABG pCO2 ABG pO2 ABG HCO3 ABG Total CO2 ABG O2 Saturation ABG Lactic Acid Sodium Potassium Chloride Carbon Dioxide BUN Creatinine Glucose POC Glucose (mg/dL) 185 H Osmolality Plasma Lactic Acid [place]ume Calcium Phosphorus Magnesium Ferritin Total Bilirubin AST ALT Lactate Dehydrogenase 1939 H Creatine Kinase Total Creatine Kinase Troponin I C-Reactive Protein Total Protein Albumin Procalcitonin Urine Blood Urine RBC Urine Mucus Ur Random Sodium SARS-CoV-2 (PCR) Crossmatch 10/16/23 10/16/23 10/16/23 16:54 17:40 19:53 WBC RBC Hgb Hct RDW Plt Count Neutrophils # Neutrophils # (Manual) Lymphocytes # Monocytes # Monocytes # (Manual) Basophils # Metamyelocytes # (Man) Myelocytes # (Manual) Nucleated RBCs PT INR APTT Fibrinogen ABG pH ABG pCO2 ABG pO2 ABG HCO3 ABG Total CO2 ABG O2 Saturation ABG Lactic Acid Sodium Potassium Chloride Carbon Dioxide BUN Creatinine Glucose POC Glucose (mg/dL) 211 H 193 H Osmolality Plasma Lactic Acid [place] Calcium Phosphorus Magnesium Ferritin Total Bilirubin AST ALT Lactate Dehydrogenase Creatine Kinase Total Creatine Kinase Troponin I C-Reactive Protein Total Protein Albumin Procalcitonin Urine Blood Urine RBC Urine Mucus Ur Random Sodium SARS-CoV-2 (PCR) Crossmatch See Detail 10/16/23 10/16/23 10/17/23 22:54 23:47 01:38 WBC 26.7 H RBC 2.63 L Hgb 8.2 L Hct 24.4 L RDW Plt Count 124 L Neutrophils # Neutrophils # (Manual) Lymphocytes # Monocytes # Monocytes # (Manual) Basophils # Metamyelocytes # (Man) Myelocytes # (Manual) Nucleated RBCs PT INR APTT Fibrinogen ABG pH ABG pCO2 ABG pO2 ABG HCO3 ABG Total CO2 ABG O2 Saturation ABG Lactic Acid Sodium Potassium Chloride Carbon Dioxide BUN Creatinine Glucose POC Glucose (mg/dL) 165 H Osmolality Plasma Lactic Acid [place] Calcium Phosphorus Magnesium Ferritin Total Bilirubin AST ALT Lactate Dehydrogenase 1882 H Creatine Kinase Total Creatine Kinase Troponin I C-Reactive Protein Total Protein Albumin Procalcitonin Urine Blood Urine RBC Urine Mucus Ur Random Sodium SARS-CoV-2 (PCR) Crossmatch 10/17/23 10/17/23 10/17/23 03:38 04:56 04:56 WBC 25.6 H RBC 2.62 L Hgb 8.2 L Hct 24.4 L RDW Plt Count 122 L Neutrophils # 20.8 H Neutrophils # (Manual) Lymphocytes # Monocytes # 2.0 H Monocytes # (Manual) Basophils # Metamyelocytes # (Man) Myelocytes # (Manual) Nucleated RBCs PT INR APTT Fibrinogen ABG pH ABG pCO2 ABG pO2 ABG HCO3 ABG Total CO2 ABG O2 Saturation ABG Lactic Acid Sodium 132 L Potassium Chloride Carbon Dioxide 32 H BUN 53 H Creatinine 1.75 H Glucose 131 H POC Glucose (mg/dL) 148 H Osmolality Plasma Lactic Acid [place] Calcium 6.9 L Phosphorus Magnesium Ferritin Total Bilirubin AST ALT Lactate Dehydrogenase Creatine Kinase Total Creatine Kinase Troponin I C-Reactive Protein Total Protein Albumin Procalcitonin Urine Blood Urine RBC Urine Mucus Ur Random Sodium SARS-CoV-2 (PCR) Crossmatch 0310/17/23 10/17/23 05:50 06:59 06:59 WBC RBC Hgb Hct RDW Plt Count Neutrophils # Neutrophils # (Manual) Lymphocytes # Monocytes # Monocytes # (Manual) Basophils # Metamyelocytes # (Man) Myelocytes # (Manual) Nucleated RBCs PT INR APTT Fibrinogen 521 H ABG pH 7.48 H ABG pCO2 ABG pO2 ABG HCO3 32 H ABG Total CO2 33 H ABG O2 Saturation 97.4 H ABG Lactic Acid Sodium Potassium Chloride Carbon Dioxide BUN Creatinine Glucose POC Glucose (mg/dL) Osmolality Plasma Lactic Acid [place] Calcium Phosphorus Magnesium Ferritin Total Bilirubin AST ALT Lactate Dehydrogenase 1998 H Creatine Kinase Total Creatine Kinase Troponin I C-Reactive Protein Total Protein Albumin Procalcitonin Urine Blood Urine RBC Urine Mucus Ur Random Sodium SARS-CoV-2 (PCR) Crossmatch 10/17/23 10/17/23 10/17/23 08:44 11:53 15:25 WBC RBC Hgb Hct RDW Plt Count Neutrophils # Neutrophils # (Manual) Lymphocytes # Monocytes # Monocytes # (Manual) Basophils # Metamyelocytes # (Man) Myelocytes # (Manual) Nucleated RBCs PT INR APTT Fibrinogen ABG pH ABG pCO2 ABG pO2 ABG HCO3 ABG Total CO2 ABG O2 Saturation ABG Lactic Acid Sodium Potassium Chloride Carbon Dioxide BUN Creatinine Glucose POC Glucose (mg/dL) 166 H 157 H Osmolality Plasma Lactic Acid [place] Calcium Phosphorus Magnesium Ferritin Total Bilirubin AST ALT Lactate Dehydrogenase 1799 H Creatine Kinase Total Creatine Kinase Troponin I C-Reactive Protein Total Protein Albumin Procalcitonin Urine Blood Urine RBC Urine Mucus Ur Random Sodium SARS-CoV-2 (PCR) Crossmatch 10/17/23 10/17/23 10/17/23 16:51 19:53 23:00 WBC RBC Hgb Hct RDW Plt Count Neutrophils # Neutrophils # (Manual) Lymphocytes # Monocytes # Monocytes # (Manual) Basophils # Metamyelocytes # (Man) Myelocytes # (Manual) Nucleated RBCs PT INR APTT 46.7 H Fibrinogen 550 H ABG pH ABG pCO2 ABG pO2 ABG HCO3 ABG Total CO2 ABG O2 Saturation ABG Lactic Acid Sodium Potassium Chloride Carbon Dioxide BUN Creatinine Glucose POC Glucose (mg/dL) 180 H 174 H Osmolality Plasma Lactic Acid [place] Calcium Phosphorus Magnesium Ferritin Total Bilirubin AST ALT Lactate Dehydrogenase Creatine Kinase Total Creatine Kinase Troponin I C-Reactive Protein Total Protein Albumin Procalcitonin Urine Blood Urine RBC Urine Mucus Ur Random Sodium SARS-CoV-2 (PCR) Crossmatch 10/17/23 10/17/23 10/18/23 23:00 23:44 04:15 WBC RBC Hgb Hct RDW Plt Count Neutrophils # Neutrophils # (Manual) Lymphocytes # Monocytes # Monocytes # (Manual) Basophils # Metamyelocytes # (Man) Myelocytes # (Manual) Nucleated RBCs PT INR APTT Fibrinogen ABG pH ABG pCO2 ABG pO2 ABG HCO3 ABG Total CO2 ABG O2 Saturation ABG Lactic Acid Sodium 132 L Potassium Chloride Carbon Dioxide 33 H BUN 57 H Creatinine 2.18 H Glucose 139 H POC Glucose (mg/dL) 180 H Osmolality Plasma Lactic Acid [place] Calcium 7.0 L Phosphorus Magnesium Ferritin Total Bilirubin AST 257 H ALT 225 H Lactate Dehydrogenase 1401 H Creatine Kinase Total Creatine Kinase Troponin I C-Reactive Protein Total Protein 4.9 L Albumin 2.1 L Procalcitonin Urine Blood Urine RBC Urine Mucus Ur Random Sodium SARS-CoV-2 (PCR) Crossmatch 10/18/23 10/18/23 10/18/23 04:15 04:17 06:03 WBC 26.3 H RBC 2.31 L Hgb 7.3 L Hct 22.1 L RDW Plt Count 117 L Neutrophils # 21.0 H Neutrophils # (Manual) Lymphocytes # Monocytes # 1.5 H Monocytes # (Manual) Basophils # Metamyelocytes # (Man) Myelocytes # (Manual) Nucleated RBCs PT INR APTT Fibrinogen ABG pH 7.33 L ABG pCO2 54 H ABG pO2 ABG HCO3 29 H ABG Total CO2 30 H ABG O2 Saturation ABG Lactic Acid Sodium Potassium Chloride Carbon Dioxide BUN Creatinine Glucose POC Glucose (mg/dL) 156 H Osmolality Plasma Lactic Acid [place] Calcium Phosphorus Magnesium Ferritin Total Bilirubin AST ALT Lactate Dehydrogenase Creatine Kinase Total Creatine Kinase Troponin I C-Reactive Protein Total Protein Albumin Procalcitonin Urine Blood Urine RBC Urine Mucus Ur Random Sodium SARS-CoV-2 (PCR) Crossmatch 10/18/23 10/18/23 10/18/23 06:54 06:54 08:30 WBC RBC Hgb Hct RDW Plt Count Neutrophils # Neutrophils # (Manual) Lymphocytes # Monocytes # Monocytes # (Manual) Basophils # Metamyelocytes # (Man) Myelocytes # (Manual) Nucleated RBCs PT INR APTT Fibrinogen 535 H ABG pH ABG pCO2 ABG pO2 ABG HCO3 ABG Total CO2 ABG O2 Saturation ABG Lactic Acid Sodium Potassium Chloride Carbon Dioxide BUN Creatinine Glucose POC Glucose (mg/dL) 166 H Osmolality Plasma Lactic Acid [place] Calcium Phosphorus Magnesium Ferritin Total Bilirubin AST ALT Lactate Dehydrogenase 1388 H Creatine Kinase Total Creatine Kinase Troponin I C-Reactive Protein Total Protein Albumin Procalcitonin Urine Blood Urine RBC Urine Mucus Ur Random Sodium SARS-CoV-2 (PCR) Crossmatch 10/18/23 10/18/23 10/18/23 10:37 11:45 16:00 WBC 22.2 H RBC 1.98 L Hgb 6.3 L* Hct 19.0 L* RDW Plt Count 106 L Neutrophils # Neutrophils # (Manual) Lymphocytes # Monocytes # Monocytes # (Manual) Basophils # Metamyelocytes # (Man) Myelocytes # (Manual) Nucleated RBCs PT INR APTT Fibrinogen 541 H ABG pH ABG pCO2 ABG pO2 ABG HCO3 ABG Total CO2 ABG O2 Saturation ABG Lactic Acid Sodium Potassium Chloride Carbon Dioxide BUN Creatinine Glucose POC Glucose (mg/dL) 142 H Osmolality Plasma Lactic Acid [place] Calcium Phosphorus Magnesium Ferritin Total Bilirubin AST ALT Lactate Dehydrogenase Creatine Kinase Total Creatine Kinase Troponin I C-Reactive Protein Total Protein Albumin Procalcitonin Urine Blood Urine RBC Urine Mucus Ur Random Sodium SARS-CoV-2 (PCR) Crossmatch 10/18/23 10/18/23 10/18/23 16:00 16:00 16:08 WBC 20.0 H RBC 2.48 L Hgb 7.7 L Hct 23.1 L RDW Plt Count 98 L Neutrophils # Neutrophils # (Manual) Lymphocytes # Monocytes # Monocytes # (Manual) Basophils # Metamyelocytes # (Man) Myelocytes # (Manual) Nucleated RBCs PT INR APTT Fibrinogen ABG pH ABG pCO2 ABG pO2 ABG HCO3 27 H ABG Total CO2 28 H ABG O2 Saturation 97.6 H ABG Lactic Acid Sodium Potassium Chloride Carbon Dioxide BUN Creatinine Glucose POC Glucose (mg/dL) Osmolality Plasma Lactic Acid [place] Calcium Phosphorus Magnesium Ferritin Total Bilirubin AST ALT Lactate Dehydrogenase 1162 H Creatine Kinase Total Creatine Kinase Troponin I C-Reactive Protein Total Protein Albumin Procalcitonin Urine Blood Urine RBC Urine Mucus Ur Random Sodium SARS-CoV-2 (PCR) Crossmatch 10/18/23 10/18/23 10/18/23 16:18 18:05 19:57 WBC RBC Hgb Hct RDW Plt Count Neutrophils # Neutrophils # (Manual) Lymphocytes # Monocytes # Monocytes # (Manual) Basophils # Metamyelocytes # (Man) Myelocytes # (Manual) Nucleated RBCs PT INR APTT Fibrinogen ABG pH ABG pCO2 48 H ABG pO2 32 L* ABG HCO3 28 H ABG Total CO2 30 H ABG O2 Saturation 62.7 L ABG Lactic Acid Sodium Potassium Chloride Carbon Dioxide BUN Creatinine Glucose POC Glucose (mg/dL) 144 H 149 H Osmolality Plasma Lactic Acid [place] Calcium Phosphorus Magnesium Ferritin Total Bilirubin AST ALT Lactate Dehydrogenase Creatine Kinase Total Creatine Kinase Troponin I C-Reactive Protein Total Protein Albumin Procalcitonin Urine Blood Urine RBC Urine Mucus Ur Random Sodium SARS-CoV-2 (PCR) Crossmatch 10/18/23 10/18/23 10/18/23 23:06 23:06 23:06 WBC 20.9 H RBC 2.45 L Hgb 7.7 L Hct 22.5 L RDW Plt Count 86 L Neutrophils # Neutrophils # (Manual) Lymphocytes # Monocytes # Monocytes # (Manual) Basophils # Metamyelocytes # (Man) Myelocytes # (Manual) Nucleated RBCs PT INR APTT Fibrinogen 531 H ABG pH ABG pCO2 ABG pO2 ABG HCO3 ABG Total CO2 ABG O2 Saturation ABG Lactic Acid Sodium Potassium Chloride Carbon Dioxide BUN Creatinine Glucose POC Glucose (mg/dL) Osmolality Plasma Lactic Acid [place] Calcium Phosphorus Magnesium Ferritin Total Bilirubin AST ALT Lactate Dehydrogenase 1167 H Creatine Kinase Total Creatine Kinase Troponin I C-Reactive Protein Total Protein Albumin Procalcitonin Urine Blood Urine RBC Urine Mucus Ur Random Sodium SARS-CoV-2 (PCR) Crossmatch 10/18/23 10/19/23 10/19/23 23:50 04:05 04:05 WBC 17.9 H RBC 2.32 L Hgb 7.5 L Hct 21.3 L RDW Plt Count 86 L Neutrophils # 14.4 H Neutrophils # (Manual) Lymphocytes # Monocytes # Monocytes # (Manual) Basophils # Metamyelocytes # (Man) Myelocytes # (Manual) Nucleated RBCs PT INR APTT Fibrinogen ABG pH ABG pCO2 ABG pO2 ABG HCO3 ABG Total CO2 ABG O2 Saturation ABG Lactic Acid Sodium 133 L Potassium Chloride Carbon Dioxide BUN 69 H Creatinine 2.41 H Glucose 105 H POC Glucose (mg/dL) 132 H Osmolality Plasma Lactic Acid [place] Calcium 6.7 L Phosphorus 5.7 H Magnesium Ferritin Total Bilirubin AST 187 H ALT 153 H Lactate Dehydrogenase Creatine Kinase Total Creatine Kinase Troponin I C-Reactive Protein Total Protein 4.3 L Albumin 1.8 L Procalcitonin Urine Blood Urine RBC Urine Mucus Ur Random Sodium SARS-CoV-2 (PCR) Crossmatch 10/19/23 10/19/23 10/19/23 04:09 05:47 06:51 WBC RBC Hgb Hct RDW Plt Count Neutrophils # Neutrophils # (Manual) Lymphocytes # Monocytes # Monocytes # (Manual) Basophils # Metamyelocytes # (Man) Myelocytes # (Manual) Nucleated RBCs PT INR APTT Fibrinogen ABG pH ABG pCO2 ABG pO2 82 L ABG HCO3 26 H ABG Total CO2 27 H ABG O2 Saturation ABG Lactic Acid Sodium Potassium Chloride Carbon Dioxide BUN Creatinine Glucose POC Glucose (mg/dL) 118 H Osmolality Plasma Lactic Acid [place] Calcium Phosphorus Magnesium Ferritin Total Bilirubin AST ALT Lactate Dehydrogenase 1116 H Creatine Kinase Total Creatine Kinase Troponin I C-Reactive Protein Total Protein Albumin Procalcitonin Urine Blood Urine RBC Urine Mucus Ur Random Sodium SARS-CoV-2 (PCR) Crossmatch 10/19/23 10/19/23 10/19/23 08:21 11:05 11:14 WBC 19.7 H RBC 2.31 L Hgb 7.3 L Hct 21.5 L RDW 15.7 H Plt Count 90 L Neutrophils # Neutrophils # (Manual) Lymphocytes # Monocytes # Monocytes # (Manual) Basophils # Metamyelocytes # (Man) Myelocytes # (Manual) Nucleated RBCs PT INR APTT Fibrinogen ABG pH ABG pCO2 ABG pO2 ABG HCO3 ABG Total CO2 ABG O2 Saturation ABG Lactic Acid Sodium Potassium Chloride Carbon Dioxide BUN Creatinine Glucose POC Glucose (mg/dL) 130 H 130 H Osmolality Plasma Lactic Acid [place] Calcium Phosphorus Magnesium Ferritin Total Bilirubin AST ALT Lactate Dehydrogenase Creatine Kinase Total Creatine Kinase Troponin I C-Reactive Protein Total Protein Albumin Procalcitonin Urine Blood Urine RBC Urine Mucus Ur Random Sodium SARS-CoV-2 (PCR) Crossmatch 10/19/23 10/19/23 10/19/23 11:47 11:55 15:00 WBC RBC Hgb Hct RDW Plt Count Neutrophils # Neutrophils # (Manual) Lymphocytes # Monocytes # Monocytes # (Manual) Basophils # Metamyelocytes # (Man) Myelocytes # (Manual) Nucleated RBCs PT INR APTT Fibrinogen 504 H ABG pH ABG pCO2 ABG pO2 52 L* ABG HCO3 26 H 26 H ABG Total CO2 27 H 27 H ABG O2 Saturation 97.4 H 87.3 L ABG Lactic Acid Sodium Potassium Chloride Carbon Dioxide BUN Creatinine Glucose POC Glucose (mg/dL) Osmolality Plasma Lactic Acid [place] Calcium Phosphorus Magnesium Ferritin Total Bilirubin AST ALT Lactate Dehydrogenase Creatine Kinase Total Creatine Kinase Troponin I C-Reactive Protein Total Protein Albumin Procalcitonin Urine Blood Urine RBC Urine Mucus Ur Random Sodium SARS-CoV-2 (PCR) Crossmatch 10/19/23 10/19/23 10/19/23 15:00 15:00 15:00 WBC 19.3 H RBC 2.39 L Hgb 7.4 L Hct 22.2 L RDW Plt Count 94 L Neutrophils # Neutrophils # (Manual) Lymphocytes # Monocytes # Monocytes # (Manual) Basophils # Metamyelocytes # (Man) Myelocytes # (Manual) Nucleated RBCs PT INR APTT Fibrinogen ABG pH ABG pCO2 ABG pO2 ABG HCO3 ABG Total CO2 ABG O2 Saturation ABG Lactic Acid Sodium 133 L Potassium Chloride Carbon Dioxide BUN 70 H Creatinine 2.52 H Glucose 110 H POC Glucose (mg/dL) Osmolality Plasma Lactic Acid [place] Calcium 7.0 L Phosphorus Magnesium Ferritin Total Bilirubin AST ALT Lactate Dehydrogenase 1089 H Creatine Kinase Total Creatine Kinase Troponin I C-Reactive Protein Total Protein Albumin Procalcitonin 2.01 H Urine Blood Urine RBC Urine Mucus Ur Random Sodium SARS-CoV-2 (PCR) Crossmatch 10/19/23 10/19/23 10/20/23 15:48 22:05 00:12 WBC RBC Hgb Hct RDW Plt Count Neutrophils # Neutrophils # (Manual) Lymphocytes # Monocytes # Monocytes # (Manual) Basophils # Metamyelocytes # (Man) Myelocytes # (Manual) Nucleated RBCs PT INR APTT Fibrinogen ABG pH ABG pCO2 ABG pO2 ABG HCO3 ABG Total CO2 ABG O2 Saturation ABG Lactic Acid Sodium Potassium Chloride Carbon Dioxide BUN Creatinine Glucose POC Glucose (mg/dL) 127 H 118 H 125 H Osmolality Plasma Lactic Acid [place] Calcium Phosphorus Magnesium Ferritin Total Bilirubin AST ALT Lactate Dehydrogenase Creatine Kinase Total Creatine Kinase Troponin I C-Reactive Protein Total Protein Albumin Procalcitonin Urine Blood Urine RBC Urine Mucus Ur Random Sodium SARS-CoV-2 (PCR) Crossmatch 10/20/23 10/20/23 10/20/23 01:34 04:17 04:24 WBC 17.8 H RBC 2.25 L Hgb 7.1 L Hct 20.9 L RDW 15.7 H Plt Count 90 L Neutrophils # Neutrophils # (Manual) 14.42 H Lymphocytes # Monocytes # Monocytes # (Manual) Basophils # Metamyelocytes # (Man) 0.18 H Myelocytes # (Manual) Nucleated RBCs 1 H PT INR APTT Fibrinogen ABG pH ABG pCO2 ABG pO2 ABG HCO3 ABG Total CO2 ABG O2 Saturation ABG Lactic Acid Sodium 133 L Potassium Chloride Carbon Dioxide BUN 73 H Creatinine 2.40 H Glucose POC Glucose (mg/dL) 118 H Osmolality Plasma Lactic Acid [place] Calcium 7.0 L Phosphorus Magnesium Ferritin Total Bilirubin AST 157 H ALT 108 H Lactate Dehydrogenase Creatine Kinase Total Creatine Kinase Troponin I C-Reactive Protein Total Protein 4.4 L Albumin 1.9 L Procalcitonin Urine Blood Urine RBC Urine Mucus Ur Random Sodium SARS-CoV-2 (PCR) Crossmatch 10/20/23 10/20/23 10/20/23 04:24 05:25 07:42 WBC 17.3 H RBC 2.19 L Hgb 6.9 L* Hct 20.5 L RDW 16.0 H Plt Count 94 L Neutrophils # Neutrophils # (Manual) 11.00 H Lymphocytes # Monocytes # Monocytes # (Manual) 1.90 H Basophils # Metamyelocytes # (Man) 1.04 H Myelocytes # (Manual) 0.52 H Nucleated RBCs PT INR APTT Fibrinogen ABG pH ABG pCO2 ABG pO2 ABG HCO3 ABG Total CO2 26 H ABG O2 Saturation ABG Lactic Acid Sodium Potassium Chloride Carbon Dioxide BUN Creatinine Glucose POC Glucose (mg/dL) 121 H Osmolality Plasma Lactic Acid [place] Calcium Phosphorus Magnesium Ferritin Total Bilirubin AST ALT Lactate Dehydrogenase Creatine Kinase Total Creatine Kinase Troponin I C-Reactive Protein Total Protein Albumin Procalcitonin Urine Blood Urine RBC Urine Mucus Ur Random Sodium SARS-CoV-2 (PCR) Crossmatch 10/20/23 10/20/23 10:16 11:56 WBC RBC Hgb Hct RDW Plt Count Neutrophils # Neutrophils # (Manual) Lymphocytes # Monocytes # Monocytes # (Manual) Basophils # Metamyelocytes # (Man) Myelocytes # (Manual) Nucleated RBCs PT INR APTT Fibrinogen ABG pH ABG pCO2 ABG pO2 ABG HCO3 ABG Total CO2 ABG O2 Saturation ABG Lactic Acid Sodium Potassium Chloride Carbon Dioxide BUN Creatinine Glucose POC Glucose (mg/dL) 120 H Osmolality Plasma Lactic Acid [place] Calcium Phosphorus Magnesium Ferritin Total Bilirubin AST ALT Lactate Dehydrogenase Creatine Kinase Total Creatine Kinase Troponin I C-Reactive Protein Total Protein Albumin Procalcitonin Urine Blood Urine RBC Urine Mucus Ur Random Sodium SARS-CoV-2 (PCR) Crossmatch See Detail Assessment and Plan Assessment: * Status post cardiac arrest x 2, on 10/14/2023 with ventricular tachycardia and ventricular fibrillation. Downtime reported about 7-9 minutes the first time, and about 10 to 15 minutes during cardiac catheterization. Rule out anoxic encephalopathy. * Acute hypoxic respiratory failure secondary to cardiac arrest, on mechanical ventilation * Longstanding history of seizure disorder/epilepsy. * Status post cardiac catheterization for acute lateral ST segment elevation myocardial infarction and the patient underwent emergent cardiac catheterization. The patient underwent a complicated coronary intervention requiring Impella for hemodynamic support, stenting of the left main, circumflex, proximal and mid RCA. A total of 5 stents were inserted. * Upper GI bleeding related to various antiplatelet agents and anticoagulation patient is now off heparin he is on aspirin and Plavix * Acute blood loss anemia requiring transfusion * Acute kidney injury, could be cardiorenal in nature, getting worse. * CHF, with EF 20% * Pneumonia * Acute hypoxic metabolic encephalopathy * History of COVID-19 pneumonia, recovering * History of seizure disorder * Hypothyroidism * Hypertension * Ex-smoker Plan: * Stat EEG performed today. It was abnormal due to background slowing of moderate to severe degree, suggestive of encephalopathy. Presence of sporadic intermittent generalized sharp appearing waves, which occasionally becomes more rhythmic at about 1 Hz, suggestive of underlying cortical irritability and tendency for seizure. No electrographic seizure was recorded. Clinical correlation and a follow-up EEG recommended. * Patient currently on Depakote. We will check Depakote level. Check ammonia level. * Start Keppra 1000 mg IV push once, followed by 500 mg IV push every 12 hours. * Repeat EEG in the morning. * Repeat CT head performed today showed no acute intracranial process. Nonsp ecific mild paranasal sinus disease. Agree with the findings. * Other medical management as per IM, critical care and other specialties on board. Patient critically sick. * Neurology will follow. Thank you for the consult. Time with Patient: Greater than 30
--- NOTE | 2023-10-21 11:43 | P.PN ---
Subjective Progress Note Date: 10/21/23 Principal diagnosis: Cardiac arrest and cardiogenic shock This is a 77-year-old male patient with a history of hypertension, seizure disorder, thyroid disorder, former smoker. On September 27, 2023 the patient had gotten up to go the bathroom and slumped onto the ground. He had been reportedly laying on the ground for several hours by family were attempting to get in helping him get up but he was unable to support himself. He also had trouble with urinary incontinence. EMS was called and he was brought here for evaluation. CT scan of the brain revealed no acute intracranial hemorrhage, midline shift or mass effect. EKG revealed sinus rhythm with no significant ST or T wave abnormalities. White count 14.9. Hemoglobin 12.9. Platelets 146. Sodium 126. Potassium 3.9. Bicarb 26. BUN 15. Creatinine 0.68. Glucose 152. AST 148. ALT 43. Creatinine kinase 2283. He did test positive for COVID-19 infection. His initial sodium level was 118. BUN of 24 and a creatinine of 1.26. He had been seen by nephrology, urology and infectious disease. A chest x-ray was done today September 30, 2023 that revealed an elevated right hemidiaphragm and we are consulted for the same. He was sent for a sniff test however the patient was unable to perform the appropriate maneuvers due to overall condition. He is seen on consultation on the selective care unit. He is currently resting in bed. Difficult to arouse but arousable. He is on a nonrebreather mask with O2 saturation of 90%. Currently afebrile. Hemodynamically stable. He has been initiated on Decadron. Antibiotics in the form of cefepime. Saline at 50 MLS per hour. Patient was evaluated today on 10/01/2023, more awake today, more responsive, seems to be more alert, and remains on a nonrebreather mask which I have recommended to transition to high flow nasal cannula. Patient did transition to 10 L high flow nasal cannula and O2 saturation was ranging between 92 up to 96% definitely better today compared to the last couple of days. Still planning to repeat his sniff test to evaluate for right hemidiaphragm paralysis. Procalcitonin level came back elevated at 0.43, patient remains on antibiotics for presumptive right lower lobe pneumonia. WBC count today 13.9 hemoglobin 13.0.Basic metabolic profile is relatively normal. Reevaluated today on 10/02/2023, patient is on 10 L high flow nasal cannula, doing better, breathing easier, O2 saturation is in the low 90s, patient continues to have diminished breath sounds at the right base, and I believe the patient has right hemidiaphragm paralysis with right lower lobe atelectasis, possible underlying pneumonia, but I feel clinically this is not the picture. At any rate the patient is supposed to have a sniff test tomorrow, may even have to consider a CT of the chest to evaluate the right lower lobe further. Based on the sniff test, further recommendations will follow. In the meantime patient is gradually improving, feeling better, breathing easier and definitely his neurological status is significantly improved now compared to how he was few days ago WBC count is 10.2 hemoglobin is 12.3, sodium is up to 130, potassium 3.1 renal profile is normal procalcitonin level on this patient was 0.43, hence he was empirically placed on antibiotics for presumptive right lower lobe pneumonia 10/16/2023, the patient remains critically ill intubated on the mechanical ventilator in the intensive care unit. He is postcardiac arrest and post emergent cardiac catheterization and a total of 5 stents were inserted and the patient was also given an Impella for hemodynamic support which is currently at p 7 augmentation with a flow of 3.2 L/min. The patient remains essentially unresponsive. He was given a brief sedation holiday yesterday to assess mentation. Immediately, the patient became restless, asynchronous with mechanical ventilator, and tachycardic and based on his underlying instability, propofol was restarted and which is currently running at 50 mcg/kg/min. He remains on assist-control mode of mechanical ventilation at the rate of 26, tidal volume of 450, FiO2 is at 60% with a PEEP of 15. Chest x-ray shows no major interval change. Blood gas from this morning shows a pH of 7.46 with a pCO2 of 44 and pO2 of 129. Hemodynamically, he remains unstable and hypotensive. Significant support still being provided to the Impella. Unable to tolerate lower levels of augmentation due to significant hypotension. While on P7, the patient is maintaining a mean arterial pressure of 70 and the patient is also on norepinephrine running at 0.02 mcg/kg/min. Cardiac rhythm is sinus tachycardia. No further episodes of ventricular arrhythmias. The patient was taken off the amiodarone and is also off the lidocaine drip. Urine output has dropped considerably and the patient also has developed an acute kidney injury. Creatinine is up to 1.9 with a BUN of 43. He is spiking temperature and his Tmax is 103.1. He remains on the same antibiotic coverage and he is currently on IV cefepime. Another complication is development of an upper GI bleed. Since yesterday afternoon, the patient had dark bloody output from his NG tube and a total amount has been in the order of 400 cc since yesterday. Based on his underlying GI bleed, IV heparin was discontinued. He remains on aspirin and Brilinta. He is off the Aggrastat for now. The hemoglobin has dropped down to 8.7. He remains in normal sinus rate of 75 cc an hour. Norepinephrine is running at 0.02 mcg/kg/min. IV heparin is discontinued. Rest of the blood work shows a WBC count of 37.6, hemoglobin 7.7 and a platelet count of 198. The serum bicarb is at 23 with a sodium level of 129. Blood sugar is at 188. Troponin peaked at 282. CPK was at 01/19/2023. He remains NPO. An echocardiogram was done yesterday and the patient was found to have significant impairment of the LV function with an ejection fraction of around 20%. Contacted the family, unable to get a hold of any family members. The family was supposed to arrive into the hospital to my understanding. Nevertheless, nobody showed up and we have placed multiple phone calls without getting any answers back. He is postcardiac arrest. Please refer to details of the cardiac intervention that was done as stated earlier. Patient was reevaluated today on 10/17/2023, remains in the ICU, intubated and mechanically ventilated. Patient is on assist-control rate of 26 tidal volume 450 FiO2 60% PEEP of 15 EGD showed a pO2 of 92 pCO2 43 pH of 7.48. No changes were made in his present ventilator settings. Patient continues to have Impella in place, it is at P7 augmentation, nonetheless, patient remains marginal at best. Ejection fraction is 20%. Patient is on propofol at 50 mcg/kg/min, he is also on IV fluid at 75 cc/h. Remains on Merrem and vancomycin, patient does not seem to be fully sedated, seems to be asynchronous with the ventilator today, hence I recommended increasing propofol up to 75 mcg/kg/min, and do Dilaudid as needed WBC count is 25.6 hemoglobin is 8.2. Fibrinogen is 521Basic metabolic profile is normal BUN is 53 creatinine 1.57. Chest x-ray showed patchy perihilar infiltrates, not much different from the chest x-ray prior. Looking back at the note, patient had his cardiac arrest on 10/14/2023, he was taken to the cardiac cath, underwent PTCA and stenting done. And he required intermittently pressor support/norepinephrine. Empirically the patient is on Merrem and vancomycin, patient has allergy to penicillin. Patient is being followed by infectious disease patient is off heparin. He is not requiring norepinephrine today, blood pressure is rather marginal. Output today is 3.3. CODE STATUS was changed to DNR CODE STATUS. The overall prognostic picture seems to be extremely poor Reevaluate 10/18/2023, patient remains in the ICU, intubated and mechanically ventilated. Patient is on assist-control rate of 26 tidal volume 450 which I increased up to 500, FiO2 60% PEEP of 15 ABG showed a pO2 of 90 pCO2 54 pH of 7.33 plan is to cut down the FiO2 to 50% and eventually address the PEEP. Patient continues to have the Impella in place, and it is at P7 augmentation. Patient continues to do poorly, he is requiring significant amount of drips including norepinephrine at 0.08 mcg/kg/min, Dobutrex at 2.5 mcg/kg/min, he is also on propofol 70 mcg/kg/min Fentanyl at 1 mcg/kg/h. Patient is spiking fever with Tmax of 102.5, continues to have leukocytosis with WBC count of 26.3. He has very poor and marginal urine output, patient remains on Flagyl vancomycin and Merrem. Yesterday I had a long discussion and updated family on his condition, and still not considering comfort care measures. Although the prognosis is extremely poor, and this was discussed with cardiology today. Patient dropped his hemoglobin today down to 6.3, patient will require blood transfusion, WBC count is 22.2. Platelets are 106 renal functioning is worsening BUN is 57 creatinine now is up to 2.18, and this is most likely acute tubular necrosis related to hypotension and cardiorenal in nature. Chest x-ray noted to have small area of focal infiltrate in the right midlung zone, endotracheal tube was noted to be high in the trachea and this was advanced down by 2 cm Patient was reevaluated today on 10/19/2023, remains in the ICU, intubated and mechanically ventilated, patient remains on assist-control rate of 26 tidal volume 500, FiO2 50%, and PEEP of 15, basically about the same, he is still very marginal at best, BG is marginal showed a pO2 of 52 pCO2 41 pH of 7.41, hence no changes made in the ventilator settings. Remains at P6 augmentation on his Impella. This is DNR at this point, but family is not willing to go to comfort care at this point yet. Still on norepinephrine at 0.06 mcg/kg/min still on Dobutrex at 5 mcg/kg/min, his off epinephrine, vasopressin at 0.04, he is on propofol and remains on fentanyl. Pressure today is slightly better, chest x- ray is basically the same, no major change, continues to have right hemidiaphragm elevation, and infiltrate in the right upper lobe area antibiotics are the same including Flagyl vancomycin and Merrem. BC count remains high 19.7 hemoglobin is 7.3. Continues to have intermittent episodes of GI bleeding remains on hold. Electrolytes are normal however his renal profile is worsening with a BUN of 69 creatinine 2.41. Overall I do not believe there is a significant improvement in this man's condition, I believe overall he is basically the same, and prognosis remains extremely poor and guarded Patient was reevaluated today on 10/20/2023, remains in the ICU, intubated and mechanically ventilated. His Impella was removed yesterday, patient required aspiration thrombectomy from the left external iliac artery using pnumbra device, done by Dr. Carreon yesterday, he also underwent stenting of the left external iliac artery. Today the patient is back to full code, family ananya rebolledo changed his CODE STATUS, and he remains full code for now. He is intubated on mechanical ventilation assist-control rate of 26 tidal volume 500 FiO2 50% and PEEP was 12 and I cut it down to 10 ABG showed a pO2 of 88 pCO2 40 pH of 7.39. Hemoglobin is low at 6.9, patient will receive a unit of packed RBCs today. Hemodynamics the patient is off norepinephrine, he is on propofol at 35 mcg/kg/min he is also on fentanyl at 1.5 mcg/kg/h. Today the patient will be given a sedation holiday, and I will try to address at least mental status. Antibiotics hughes remains on Merrem. Continues to have GI bleeding, and that is being followed by general surgery, however the patient is not a candidate for any intervention at this point considering his overall cardiac status. Nutrition hughes patient is on trickle feeds. WBC count today is 17.3 hemoglobin is 6.9. Platelets are 94,000. Basic metabolic profile is normal BUN however is 73 creatinine 2.40 slightly improved compared to yesterday. Sputum cultures have been negative, blood cultures have been negative from 10/14 chest x-ray continues to show right lower lobe atelectasis/consolidation and right hemidiaphragm elevation highly suspicious for right hemidiaphragm paralysis based on the chronicity of the problem Patient was reevaluated today on 10/21/2023, remains in the ICU, CODE STATUS has been changed to full code, patient is now on assist-control rate of 26 tidal volume 500 FiO2 50% PEEP was done and I cut it down to 8 ABG showed a pO2 of 98 pCO2 37 pH of 7.42. Patient is still sedated with propofol at 10 mcg/kg/min, fentanyl at 1 mcg/kg/h. IV fluid 0.9 normal saline at KVO, patient is receiving vital HP at 30 cc/h. Remains on Merrem and he remains on Lasix 40 mg IV push every 8 hours. Not much of a change noted in the last 24 hours, chest x-ray remains the same showing mostly right lower lobe atelectasis and right upper lobe infiltrate. Patient will be given today a mental status assessment, and a sedation holiday, he is not quite ready for weaning, but at least we will try to assess mental status if possible off sedation today WBC count is 14.4 hemoglobin is 8.2. Basic metabolic profile is normal BUN is 71 creatinine 2.60 Objective - Vital Signs Vital signs: Vital Signs Temp 99.0 F 10/21/23 08:00 Pulse 109 H 10/21/23 11:00 Resp 31 H 10/21/23 11:00 BP 103/61 10/21/23 11:00 Pulse Ox 96 10/21/23 11:00 FiO2 50 10/21/23 10:48 Intake & Output 10/20/23 10/21/23 10/21/23 18:59 06:59 18:59 Intake Total 1216.344 209.394 244.069 Output Total 1135 1425 560 Balance 81.344 -1215.606 -315.931 Weight 121.5 kg 124.2 kg Intake: IV 229.8 120 50 0.9 30 120 50 Meropenem 1 gm In Sodium 199.8 Chloride 0.9% 100 ml @ 33 .3 mls/hr IVPB Q8HR [place] Rx#:[id number] Intake, IV Titration 566.544 79.394 44.069 Amount Norepinephrine 4 mg In 33.311 Sodium Chloride 0.9% 250 ml @ 0.03 MCG/KG/MIN 13. 945 mls/hr IV .[id number] [place] Rx#:[id number] Potassium Chloride 10 meq 400 In Water For Injection 1 100ml.bag @ 100 mls/hr IVPB Q1H [place] Rx#: [id number] fentaNYL (PF). 1,000 mcg 30.596 45.845 23.559 In Sodium Chloride 0.9% 80 ml @ 0.5 MCG/KG/HR 5. 865 mls/hr IV .Q17H4M [place] Rx#:[id number] propofoL 1,000 mg In 102.637 33.549 20.51 Empty Bag 1 bag @ 30 MCG/ KG/MIN 26.37 mls/hr IV . Q3H48M [place] Rx#:[id number] Tube Feeding 80 10 120 Blood Product 310 Rc As-1 Unit 310 [id number] Other 30 30 Output: Urine 1135 1425 560 Other: Voiding Method Indwelling Catheter Indwelling Catheter Indwelling Catheter ABP, PAP, CO, CI - Last Documented Arterial Blood Pressure 111/51 - Exam General: Reveals 77-year-old white male obese, remains intubated, mechanically ventilated and sedated. Head: Atraumatic normocephalic. Skin: No rashes. Eye: Pupils are equal, round and reactive to light,; there is normal conjunctiva bilaterally. Ears, nose, mouth and throat: There are moist mucous membranes and no oral lesions. Tracheal tube is intact, orogastric tube is intact. Neck: The neck is supple, there is no tenderness or JVD. Cardiovascular: Normal S1-S2, no gallop, 2/6 systolic murmur in the left lower sternal border Respiratory: Distant breath sound bilaterally no crackles rhonchi or wheezes Gastrointestinal: Obese, soft, nontender, no megaly, no rebound, no guarding. Musculoskeletal: No deformities noted, extremities showed no clubbing, 3+ bipedal edema, no cyanosis Neurological: Cannot assess, Psychiatric: Could not assess - Labs CBC & Chem 7: 10/21/23 05:13 10/21/23 05:13 Labs: Abnormal Lab Results - Last 24 Hours (Table) 10/20/23 10/20/23 10/20/23 Range/Units 10:16 11:56 16:03 WBC (3.8-10.6) k/uL RBC (4.30-5.90) m/uL Hgb (13.0-17.5) gm/dL Hct (39.0-53.0) % RDW (11.5-15.5) % Plt Count (150-450) k/uL Neutrophils # (Manual) (1.3-7.7) k/uL Monocytes # (Manual) (0-1.0) k/uL Metamyelocytes # (Man) (0) k/uL Myelocytes # (Manual) (0) k/uL Nucleated RBCs (0-0) /100 WBC ABG Total CO2 (19-24) mmol/L Sodium (137-145) mmol/L Carbon Dioxide (22-30) mmol/L BUN (9-20) mg/dL Creatinine (0.66-1.25) mg/dL Glucose (74-99) mg/dL POC Glucose (mg/dL) 120 H 135 H (70-110) mg/dL Calcium (8.4-10.2) mg/dL Crossmatch See Detail 10/20/23 10/20/23 10/20/23 Range/Units 18:00 18:00 20:24 WBC 18.4 H (3.8-10.6) k/uL RBC 2.81 L (4.30-5.90) m/uL Hgb 8.6 L D (13.0-17.5) gm/dL Hct 25.8 L (39.0-53.0) % RDW 15.8 H (11.5-15.5) % Plt Count 110 L (150-450) k/uL Neutrophils # (Manual) (1.3-7.7) k/uL Monocytes # (Manual) (0-1.0) k/uL Metamyelocytes # (Man) (0) k/uL Myelocytes # (Manual) (0) k/uL Nucleated RBCs (0-0) /100 WBC ABG Total CO2 (19-24) mmol/L Sodium 135 L (137-145) mmol/L Carbon Dioxide (22-30) mmol/L BUN 70 H (9-20) mg/dL Creatinine 2.52 H (0.66-1.25) mg/dL Glucose 106 H (74-99) mg/dL POC Glucose (mg/dL) 115 H (70-110) mg/dL Calcium 7.2 L (8.4-10.2) mg/dL Crossmatch 10/21/23 10/21/23 10/21/23 Range/Units 03:24 05:13 05:13 WBC 14.4 H (3.8-10.6) k/uL RBC 2.63 L (4.30-5.90) m/uL Hgb 8.2 L (13.0-17.5) gm/dL Hct 24.2 L (39.0-53.0) % RDW 16.8 H (11.5-15.5) % Plt Count 129 L (150-450) k/uL Neutrophils # (Manual) 10.60 H (1.3-7.7) k/uL Monocytes # (Manual) 1.01 H (0-1.0) k/uL Metamyelocytes # (Man) 0.72 H (0) k/uL Myelocytes # (Manual) 0.29 H (0) k/uL Nucleated RBCs 1 H (0-0) /100 WBC ABG Total CO2 (19-24) mmol/L Sodium 135 L (137-145) mmol/L Carbon Dioxide 21 L (22-30) mmol/L BUN 71 H (9-20) mg/dL Creatinine 2.60 H (0.66-1.25) mg/dL Glucose 108 H (74-99) mg/dL POC Glucose (mg/dL) 123 H (70-110) mg/dL Calcium 7.4 L (8.4-10.2) mg/dL Crossmatch 03/08/24 Range/Units 05:35 WBC (3.8-10.6) k/uL RBC (4.30-5.90) m/uL Hgb (13.0-17.5) gm/dL Hct (39.0-53.0) % RDW (11.5-15.5) % Plt Count (150-450) k/uL Neutrophils # (Manual) (1.3-7.7) k/uL Monocytes # (Manual) (0-1.0) k/uL Metamyelocytes # (Man) (0) k/uL Myelocytes # (Manual) (0) k/uL Nucleated RBCs (0-0) /100 WBC ABG Total CO2 25 H (19-24) mmol/L Sodium (137-145) mmol/L Carbon Dioxide (22-30) mmol/L BUN (9-20) mg/dL Creatinine (0.66-1.25) mg/dL Glucose (74-99) mg/dL POC Glucose (mg/dL) (70-110) mg/dL Calcium (8.4-10.2) mg/dL Crossmatch Microbiology - Last 24 Hours (Table) 10/15/23 13:18 Blood Culture - Final Blood Assessment and Plan Assessment: Impression: Cardiac arrest with ventricular tachycardia and ventricular fibrillation, status post cardiac catheterization for acute lateral ST segment elevation myocardial infarction and the patient underwent emergent cardiac catheterization. The patient underwent a complicated coronary intervention requiring Impella for hemodynamic support, stenting of the left main, circumflex, proximal and mid RCA. A total of 5 stents were inserted. Acute hypoxic respiratory failure secondary to cardiac arrest Ventricular tachycardia/VF, postacute ID Upper GI bleeding related to various antiplatelet agents and anticoagulation patient is now off heparin he is on aspirin and Plavix Acute blood loss anemia requiring transfusion Acute kidney injury, could be cardiorenal in nature. There are cardiomyopathy and LV dysfunction. Acute febrile illness, exact etiology is not clear patient is empirically on antibiotics chest x-ray is showing a limited infiltrate in the right midlung. Acute hypoxic metabolic encephalopathy History of COVID-19 pneumonia, recovering Right hemidiaphragm elevation possible paralysis History of seizure disorder History of hypothyroidism History of hypertension Ex-smoker Severe LV dysfunction with ejection fraction of 20% Status post removal of his Impella device and required aspiration thrombectomy from the left external iliac on 10/19/2023 Recommendation: Hold sedation and assess mental status on a daily basis. Continue ventilatory support, depending on mental status, may or may not give the patient weaning trials with pressure support Continue nutritional support/enteral feeding Continue aspirin and Brilinta Continue antibiotics, as per ID Continue diuretics on a daily basis Patient remains critically ill, prognosis guarded Will continue to follow. Critical care time is over 30 minutes Time with Patient: Greater than 30
[2023-10-21 12:49] LABS: Glucose,Whole Blood 181 mg/dL (70-110)
--- NOTE | 2023-10-21 14:23 | P.PN ---
Subjective patient is a 77-year-old gentleman past medical history significant for hypothyroidism, hypertension who presented to the ER for generalized weakness and fall. Patient was brought in by family members, apparently patient was trying to use the restroom when he lost all his strength and slumped to the ground. There was no complaint of any loss of consciousness. No complaint of weakness of any extremity. Family did not notice any slurred speech or facial droop. There was no complaint of fever or chills. No complaint of nausea, vomiting, abdominal pain. Patient's family tried to help him to get up but they were unable to lift him. They called EMS and they brought him to ER. Initial lab work done in the ER showed WBC 10.5, hemoglobin 15.2, platelet count 165, sodium 118, potassium 4.1, BUN 24, creatinine 1.26, plasma lactate 4.1, tro ponin 0.012 UA negative for any infection EKG done in the ER showed heart rate of 75, no ST segment elevation or depression seen, no T-wave inversions seen. Chest x-ray done in the ER no acute cardiopulmonary process CT head done showed no acute intracranial process Patient admitted to internal medicine service 09/29. Patient seen and examined. COVID-19 came back positive. Currently on 4 L of oxygen. Sodium this morning is 121. Still complain lethargy and weakness. Patient also diagnosed with COVID 09/30. Patient seen and examined. Blood work done this morning showed WBC 14.9, hemoglobin 12.9, platelet count 146, sodium 126, potassium 3.9, BUN 15, creatinine 0.68. States he feels much better. Shortness of breath is improved. 10/01. Patient seen and examined. Still on 15 L of oxygen via nonrebreather. States he feels better. Sodium level improved to 132, potassium 3.3, BUN 18, creatinine 0.65. Lethargy has improved. 10/02. Patient seen and examined. Currently on 8 L of oxygen via high flow nasal cannula. States he feels much better, breathing is improved, pulmonology recommended sniff test to look for right diaphragm paralysis 10/03. Patient seen and examined. Continues to be on 15 L of oxygen. Patient is not lethargic, states gets short of breath on exertion. Denies any nausea or vomiting 10/04/2023 Patient seen and evaluated in follow-up today continues to be dyspneic maintained on high flow oxygen is being transferred to [facility]. Per nursing staff he continues to remove his nasal cannula as well as nonrebreather and respiratory following recommending i continuing this for a few hours. Patient has noted to be COVID-positive. Sodium is slightly low at 132 potassium was 3.3 yesterday and replaced awaiting follow-up labs. Patient with prolonged hospitalization and continued weakness will likely need ECF once stabilized. 10/05/2023 Patient is seen in follow-up this morning continues on Airvo with maximum oxygen at 60/90 maintaining oxygen saturations in the 88 percentile range. Patient reports having worsening shortness of breath although appears somewhat confused at times. Discussed CODE STATUS with the patient and he wishes to remain full code. Patient is agreeable to mechanical ventilation if required. Patient continues to remove his oxygen from his face desats very quickly. Will get a chest x-ray and continue to monitor closely. Pulmonary and infectious disease following and patient is continued on cefepime with concerns of pneumonia. Patient is currently afebrile and denies chest pain or shortness of breath. Patient reports he is eating although not much of an appetite. 10/06/2023 Patient is seen in follow-up today was transferred to the ICU for respiratory decline per nursing staff as patient continued to have respiratory distress and low oxygen saturations becoming more hypoxic and confused. Patient is continued on Airvo max 60/90 with continued intermittent nonrebreather use. Patient is continued on steroids along with inhalers and pulmonary is following closely. Patient is afebrile with no reported chest pain or shortness of breath. Patient reports to tolerating diet although appears not to be eating very much at all. 10/07/2023 Patient is seen and evaluated in follow-up today continues in the ICU on high flow Airvo 60 L / 90% with oxygen saturations in the low 90s. On exam patient was found to have Airvo out of his nostrils and using nonrebreather and oxygen saturation was 93%. Patient is maintained on antibiotics with infectious disease following closely along with pulmonary naprapath. CODE STATUS was addressed once again and patient wishes to remain full code. Wean FiO2 as t olerated. Encouraged oral intake. Patient to be evaluated by physical therapy once respiratory status improved and will need rehab. 10/09/2023 Patient lying in bed, mildly tachypneic with no chest pain He remains on Airvo 60 L/min Vital stable Remains on dexamethasone and Pepcid Resume of the care of the patient 10/12/2023 Patient with Covid infection and possible right lower lobe pneumonia finish her antibiotics. He does not need antiviral therapy but there is evidence of oral thrush and discovered covered with Diflucan and received nystatin as well. His leukocytosis stable about 18k, no fever. Patient also with fluid overload and hyponatremia sodium 1:30 status post 1 Samsca today, also patient is on IV Lasix 40 mg twice daily Patient currently is oxygen via nasal cannula saturating 88% which is improved from previous, airvo oxygen was stopped 10/13/2023 Patient is clinically stable. He is awake and alert not in distress his breathing is improving and currently he is on 4-5 L/m of oxygen which is a stable Has good air entry bilaterally. I discussed the case with pulmonary team and patient might be considered for discharge from their perspective is also on Diflucan and WBCs 18,000 Status post Samsca and sodium stable at 1:30, low potassium replaced I discussed the case with licensed social worker and patient does not need a bone isolation for his Covid. However he is prior authorization Possible discharge in 24-48 hours 10/14/23 Patient mentation is at baseline No new complaints, no chest pain no significant dyspnea He remains on 5 L oxygen via nasal cannula WBC improved down to 12,000, hemoglobin 12, sodium slightly low at 127, glucose controlled. Ejection fraction 60-65% Remains on Diflucan. Today IV Lasix switched to by mouth 40 mg twice daily Discussed with pillowcase cleaner, still pending placement. Still family having contacted staff. 10/15/2023 Patient condition deteriorated and patient developed CODE BLUE called for him and he underwent CPR per protocol with downtime estimated about 7 to 10 minutes He was taken emergently to the [facility] and a total of 5 stents placed into his coronary arteries. Postprocedure patient was taken to the ICU intubated and s edated Also he was started on Impella for hemodynamic support He was started also on aspirin, Brilinta and heparin drip Also patient developed leukocytosis up to 1 31,000 hemoglobin stable around 12. Sodium 129 Creatinine stable at 1.1 10/16/2023 Patient remains in the ICU sedated and intubated Today he lost about 400 to 500 mL of dark-colored fluid through his NG tube so heparin drip was stopped. While patient kept on aspirin and Brilinta History requires Impella in place with cardiology and critical care team following closely He remains on intubated on mechanical ventilation for respiratory support He has significant leukocytosis up to 33,000 and is currently covered with IV vancomycin and meropenem. He has been spiking fever today Also his creatinine jumped up to 1.9 and he developed acute kidney injury His condition remains critical Case discussed with staff and critical care team Patient remains in the ICU intubated and sedated, and he has been monitoring closely. They tried to wean him yesterday and he got agitated. His currently on sedative and propofol His ejection fraction is low indicating cardiogenic shock, EF is around 10 to 20% compared to 66% on the previous days. This is after the STEMI and cardiac arrest. Patient currently on Impella and small dose of Levophed with cardiology and critical care following closely. Stool wean him off Impella if that works then possibly stop Levophed and later on switched Impella to dobutamine this works. Patient does not need heparin drip and he is continued on a dual antiplatelet therapy and statin Also midodrine was added today. His condition remains critical 10/18/2023 pt condition is still critical and his response to treatment is guarded pt is still intubated , requring peep of 12 pt is hypotensive could not tolerate weaning pressores down still on aimpalla his wbc is 20k, hb dropped down to 6.3 and after 2 units of blood transfusion came up to 7.7 still on asprin and brillinta, on iv protnox bid and pepcid, on iv vancomycin, meropenem family may consider more palliative management management discussed with staff 10/19/2023 pt remains intubated and sedated on mechanical ventilation with pulmonary and critical care team are following and managing vent very closely he is still on high peep at 15 he is not suitable for weaning attempts yet he is having maroon stool with gi bleed , so heparin drip on hold also on protonix , surgery team recommend colonoscopy when hemodynamically stable his pressors were stopped and impalla went down to p6 10/20/2023 Patient remains intubated in the critical care unit Yesterday the Impella was removed. Still requiring small dose of pressors CT of the brain is negative for acute process EEG showing severe metabolic encephalopathy however there is some electrical activity suggestive of tendency toward seizure but no seizure activity. Keppra 500 mg twice daily was added. Patient also on meropenem. IV Lasix 40 mg every 8 hours. 10/21/2023 Patient remains intubated sedated with Critical care team following and monitoring closely and help in vent management He was placed off sedation today however there is no change in his mental stat us. No much response. Neurology on the case and is repeating EEG this morning. Patient currently he is off heparin drip continued on dual antiplatelet therapy with aspirin and Brilinta Also he is getting meropenem for antibiotic and Diflucan. On Keppra and midodrine I discussed the case with Dr. Toribio from cardiology today Objective - Vital Signs Vital signs: Vital Signs Temp 99.0 F 10/21/23 08:00 Pulse 101 H 10/21/23 10:50 Resp 24 10/21/23 10:30 BP 113/67 10/21/23 10:30 Pulse Ox 97 10/21/23 10:30 FiO2 50 10/21/23 10:48 Intake & Output 10/20/23 10/21/23 10/21/23 18:59 06:59 18:59 Intake Total 1216.344 209.394 164.069 Output Total 1135 1425 260 Balance 81.344 -1215.606 -95.931 Weight 121.5 kg 124.2 kg Intake: IV 229.8 120 30 0.9 30 120 30 Meropenem 1 gm In Sodium 199.8 Chloride 0.9% 100 ml @ 33 .3 mls/hr IVPB Q8HR [place] Rx#:[id number] Intake, IV Titration 566.544 79.394 44.069 Amount Norepinephrine 4 mg In 33.311 Sodium Chloride 0.9% 250 ml @ 0.03 MCG/KG/MIN 13. 945 mls/hr IV .[id number] [place] Rx#:[id number] Potassium Chloride 10 meq 400 In Water For Injection 1 100ml.bag @ 100 mls/hr IVPB Q1H [place] Rx#: [id number] fentaNYL (PF). 1,000 mcg 30.596 45.845 23.559 In Sodium Chloride 0.9% 80 ml @ 0.5 MCG/KG/HR 5. 865 mls/hr IV .Q17H4M [place] Rx#:[id number] propofoL 1,000 mg In 102.637 33.549 20.51 Empty Bag 1 bag @ 30 MCG/ KG/MIN 26.37 mls/hr IV . Q3H48M [place] Rx#:[id number] Tube Feeding 80 10 60 Blood Product 310 Rc As-1 Unit 310 [id number] Other 30 30 Output: Urine 1135 1425 260 Other: Voiding Method Indwelling Catheter Indwelling Catheter Indwelling Catheter ABP, PAP, CO, CI - Last Documented Arterial Blood Pressure 111/51 - Exam GENERAL: The patient is sedated and intubated HEENT: Pupils are round and equally reacting to light. EOMI. No scleral icterus. No conjunctival pallor. Normocephalic, atraumatic. No pharyngeal erythema. No thyromegaly. CARDIOVASCULAR: S1 and S2 present. No murmurs, rubs, or gallops. PULMONARY: Chest is clear to auscultation, no wheezing , no crackles. ABDOMEN: Soft, nontender, nondistended, normoactive bowel sounds. No palpable organomegaly. MUSCULOSKELETAL: No joint swelling or deformity. EXTREMITIES: No cyanosis, clubbing, or pedal edema. NEUROLOGICAL: Gross neurological examination did not reveal any focal deficits. SKIN: No rashes. no petechiae. - Labs CBC & Chem 7: 10/21/23 05:13 10/21/23 05:13 Labs: Abnormal Lab Results - Last 24 Hours (Table) 10/20/23 10/20/23 10/20/23 Range/Units 10:16 11:56 16:03 WBC (3.8-10.6) k/uL RBC (4.30-5.90) m/uL Hgb (13.0-17.5) gm/dL Hct (39.0-53.0) % RDW (11.5-15.5) % Plt Count (150-450) k/uL Neutrophils # (Manual) (1.3-7.7) k/uL Monocytes # (Manual) (0-1.0) k/uL Metamyelocytes # (Man) (0) k/uL Myelocytes # (Manual) (0) k/uL Nucleated RBCs (0-0) /100 WBC ABG Total CO2 (19-24) mmol/L Sodium (137-145) mmol/L Carbon Dioxide (22-30) mmol/L BUN (9-20) mg/dL Creatinine (0.66-1.25) mg/dL Glucose (74-99) mg/dL POC Glucose (mg/dL) 120 H 135 H (70-110) mg/dL Calcium (8.4-10.2) mg/dL Crossmatch See Detail 10/20/23 10/20/23 10/20/23 Range/Units 18:00 18:00 20:24 WBC 18.4 H (3.8-10.6) k/uL RBC 2.81 L (4.30-5.90) m/uL Hgb 8.6 L D (13.0-17.5) gm/dL Hct 25.8 L (39.0-53.0) % RDW 15.8 H (11.5-15.5) % Plt Count 110 L (150-450) k/uL Neutrophils # (Manual) (1.3-7.7) k/uL Monocytes # (Manual) (0-1.0) k/uL Metamyelocytes # (Man) (0) k/uL Myelocytes # (Manual) (0) k/uL Nucleated RBCs (0-0) /100 WBC ABG Total CO2 (19-24) mmol/L Sodium 135 L (137-145) mmol/L Carbon Dioxide (22-30) mmol/L BUN 70 H (9-20) mg/dL Creatinine 2.52 H (0.66-1.25) mg/dL Glucose 106 H (74-99) mg/dL POC Glucose (mg/dL) 115 H (70-110) mg/dL Calcium 7.2 L (8.4-10.2) mg/dL Crossmatch 10/21/23 10/21/23 10/21/23 Range/Units 03:24 05:13 05:13 WBC 14.4 H (3.8-10.6) k/uL RBC 2.63 L (4.30-5.90) m/uL Hgb 8.2 L (13.0-17.5) gm/dL Hct 24.2 L (39.0-53.0) % RDW 16.8 H (11.5-15.5) % Plt Count 129 L (150-450) k/uL Neutrophils # (Manual) 10.60 H (1.3-7.7) k/uL Monocytes # (Manual) 1.01 H (0-1.0) k/uL Metamyelocytes # (Man) 0.72 H (0) k/uL Myelocytes # (Manual) 0.29 H (0) k/uL Nucleated RBCs 1 H (0-0) /100 WBC ABG Total CO2 (19-24) mmol/L Sodium 135 L (137-145) mmol/L Carbon Dioxide 21 L (22-30) mmol/L BUN 71 H (9-20) mg/dL Creatinine 2.60 H (0.66-1.25) mg/dL Glucose 108 H (74-99) mg/dL POC Glucose (mg/dL) 123 H (70-110) mg/dL Calcium 7.4 L (8.4-10.2) mg/dL Crossmatch 10/21/23 Range/Units 05:35 WBC (3.8-10.6) k/uL RBC (4.30-5.90) m/uL Hgb (13.0-17.5) gm/dL Hct (39.0-53.0) % RDW (11.5-15.5) % Plt Count (150-450) k/uL Neutrophils # (Manual) (1.3-7.7) k/uL Monocytes # (Manual) (0-1.0) k/uL Metamyelocytes # (Man) (0) k/uL Myelocytes # (Manual) (0) k/uL Nucleated RBCs (0-0) /100 WBC ABG Total CO2 25 H (19-24) mmol/L Sodium (137-145) mmol/L Carbon Dioxide (22-30) mmol/L BUN (9-20) mg/dL Creatinine (0.66-1.25) mg/dL Glucose (74-99) mg/dL POC Glucose (mg/dL) (70-110) mg/dL Calcium (8.4-10.2) mg/dL Crossmatch Microbiology - Last 24 Hours (Table) 10/15/23 13:18 Blood Culture - Final Blood Assessment and Plan Assessment: Emergent cardiac cath and 5 stents placement Cardiogenic shock and possible septic shock secondary to above Acute hypoxic respiratory failure requiring intubation and mechanical ventilation acute GI Bleed requring blood transufion Acute kidney injury Hyponatremia secondary to poor oral intake, COVID-19 Acute hypoxic respiratory failure secondary to COVID-19, now requiring oxygen via nasal cannula. Altered mental status, with toxic metabolic encephalopathy likely secondary to hypoxia as patient continues to remove oxygen mask from his face Generalized weakness Rhabdomyolysis. Improved Fall Urinary retention requiring indwelling Rosales catheter Hypothyroidism Hypertension Obesity with a BMI of 35.0 acute STEMI s/p Plan: Patient is continued on mechanical ventilation Continue with aspirin and Brilinta heparin drip is discontinued Cardiology consult following closely Pulmonary/critical care team following closely Patient s/p Impella with cardiology team Antibiotics were adjusted into meropenem and IV vancomycin by ID team Continue with insulin coverage Summer consult is on the case including ID team, pulmonary and nephrology Labs and medication were reviewed.. Continue same treatment. Continue with symptomatic treatment. Resume home medication. Monitor labs and vitals. DVT and GI prophylaxis. Further recommendations as per clinical course of the patient DVT prophylaxis: Subcutaneous Lovenox GI Prophylaxis: Pepcid PT/OT: heather prognosis is guarded family consider more palliative management
--- NOTE | 2023-10-21 14:29 | P.PN ---
Subjective Progress Note Date: 10/21/23 CHIEF COMPLAINT: Anemia HISTORY OF PRESENT ILLNESS: Patient remains in the ICU intubated and on mechanical ventilation. Patient has had cardiac arrest, 5 cardiac stents placed and was on Impella. Patient does remain on Brilinta and aspirin. Surgical service consulted for GI bleed. Patient had been having black tarry stools. Last stool was yesterday. Hemoglobin has gone up after blood transfusion from 6.9-8.6 and is now currently at 8.2. Patient on tube feeds tube for nutritional support PHYSICAL EXAM: VITAL SIGNS: Reviewed. GENERAL: no acute distress. ABDOMEN: Soft. Nondistended. Nontender. NEUROLOGIC: Intubated ASSESSMENT: 1. Acute GI bleed with black tarry stools 2. Acute blood loss anemia 3. Cardiac arrest status post heart catheterization with 5 stents PLAN: -Recommend EGD when medically stable -Agree with blood transfusion -Continue ICU management -Continue to monitor for signs and symptoms of bleeding -Continue to monitor hemoglobin -Continue Protonix Physician Health Plan Advisor note has been reviewed by physician. Signing provider agrees with the documented findings, assessment, and plan of care. Objective - Vital Signs Vital signs: Vital Signs Temp 98.3 F 10/21/23 12:00 Pulse 93 10/21/23 12:30 Resp 29 H 10/21/23 12:30 BP 100/55 10/21/23 12:30 Pulse Ox 94 L 10/21/23 12:30 FiO2 50 10/21/23 12:00 Intake & Output 10/20/23 10/21/23 10/21/23 18:59 06:59 18:59 Intake Total 1216.344 209.394 424.069 Output Total 1135 1425 685 Balance 81.344 -1215.606 -260.931 Weight 121.5 kg 124.2 kg Intake: IV 229.8 120 160 0.9 30 120 60 Meropenem 1 gm In Sodium 199.8 100 Chloride 0.9% 100 ml @ 33 .3 mls/hr IVPB Q8HR [place] Rx#:[id number] Intake, IV Titration 566.544 79.394 44.069 Amount Norepinephrine 4 mg In 33.311 Sodium Chloride 0.9% 250 ml @ 0.03 MCG/KG/MIN 13. 945 mls/hr IV .[id number] [place] Rx#:[id number] Potassium Chloride 10 meq 400 In Water For Injection 1 100ml.bag @ 100 mls/hr IVPB Q1H [place] Rx#: [id number] fentaNYL (PF). 1,000 mcg 30.596 45.845 23.559 In Sodium Chloride 0.9% 80 ml @ 0.5 MCG/KG/HR 5. 865 mls/hr IV .Q17H4M [place] Rx#:[id number] propofoL 1,000 mg In 102.637 33.549 20.51 Empty Bag 1 bag @ 30 MCG/ KG/MIN 26.37 mls/hr IV . Q3H48M [place] Rx#:[id number] Tube Feeding 80 10 160 Blood Product 310 Rc As-1 Unit 310 [id number] Other 30 60 Output: Urine 1135 1425 685 Other: Voiding Method Indwelling Catheter Indwelling Catheter Indwelling Catheter ABP, PAP, CO, CI - Last Documented Arterial Blood Pressure 111/51 - Labs CBC & Chem 7: 10/21/23 05:13 10/21/23 05:13 Labs: Abnormal Lab Results - Last 24 Hours (Table) 10/20/23 10/20/23 10/20/23 Range/Units 10:16 16:03 18:00 WBC 18.4 H (3.8-10.6) k/uL RBC 2.81 L (4.30-5.90) m/uL Hgb 8.6 L D (13.0-17.5) gm/dL Hct 25.8 L (39.0-53.0) % RDW 15.8 H (11.5-15.5) % Plt Count 110 L (150-450) k/uL Neutrophils # (Manual) (1.3-7.7) k/uL Monocytes # (Manual) (0-1.0) k/uL Metamyelocytes # (Man) (0) k/uL Myelocytes # (Manual) (0) k/uL Nucleated RBCs (0-0) /100 WBC ABG Total CO2 (19-24) mmol/L Sodium (137-145) mmol/L Carbon Dioxide (22-30) mmol/L BUN (9-20) mg/dL Creatinine (0.66-1.25) mg/dL Glucose (74-99) mg/dL POC Glucose (mg/dL) 135 H (70-110) mg/dL Calcium (8.4-10.2) mg/dL Crossmatch See Detail 10/20/23 10/20/23 10/21/23 Range/Units 18:00 20:24 03:24 WBC (3.8-10.6) k/uL RBC (4.30-5.90) m/uL Hgb (13.0-17.5) gm/dL Hct (39.0-53.0) % RDW (11.5-15.5) % Plt Count (150-450) k/uL Neutrophils # (Manual) (1.3-7.7) k/uL Monocytes # (Manual) (0-1.0) k/uL Metamyelocytes # (Man) (0) k/uL Myelocytes # (Manual) (0) k/uL Nucleated RBCs (0-0) /100 WBC ABG Total CO2 (19-24) mmol/L Sodium 135 L (137-145) mmol/L Carbon Dioxide (22-30) mmol/L BUN 70 H (9-20) mg/dL Creatinine 2.52 H (0.66-1.25) mg/dL Glucose 106 H (74-99) mg/dL POC Glucose (mg/dL) 115 H 123 H (70-110) mg/dL Calcium 7.2 L (8.4-10.2) mg/dL Crossmatch 10/21/23 10/21/23 10/21/23 Range/Units 05:13 05:13 05:35 WBC 14.4 H (3.8-10.6) k/uL RBC 2.63 L (4.30-5.90) m/uL Hgb 8.2 L (13.0-17.5) gm/dL Hct 24.2 L (39.0-53.0) % RDW 16.8 H (11.5-15.5) % Plt Count 129 L (150-450) k/uL Neutrophils # (Manual) 10.60 H (1.3-7.7) k/uL Monocytes # (Manual) 1.01 H (0-1.0) k/uL Metamyelocytes # (Man) 0.72 H (0) k/uL Myelocytes # (Manual) 0.29 H (0) k/uL Nucleated RBCs 1 H (0-0) /100 WBC ABG Total CO2 25 H (19-24) mmol/L Sodium 135 L (137-145) mmol/L Carbon Dioxide 21 L (22-30) mmol/L BUN 71 H (9-20) mg/dL Creatinine 2.60 H (0.66-1.25) mg/dL Glucose 108 H (74-99) mg/dL POC Glucose (mg/dL) (70-110) mg/dL Calcium 7.4 L (8.4-10.2) mg/dL Crossmatch 10/21/23 Range/Units 12:47 WBC (3.8-10.6) k/uL RBC (4.30-5.90) m/uL Hgb (13.0-17.5) gm/dL Hct (39.0-53.0) % RDW (11.5-15.5) % Plt Count (150-450) k/uL Neutrophils # (Manual) (1.3-7.7) k/uL Monocytes # (Manual) (0-1.0) k/uL Metamyelocytes # (Man) (0) k/uL Myelocytes # (Manual) (0) k/uL Nucleated RBCs (0-0) /100 WBC ABG Total CO2 (19-24) mmol/L Sodium (137-145) mmol/L Carbon Dioxide (22-30) mmol/L BUN (9-20) mg/dL Creatinine (0.66-1.25) mg/dL Glucose (74-99) mg/dL POC Glucose (mg/dL) 181 H (70-110) mg/dL Calcium (8.4-10.2) mg/dL Crossmatch Microbiology - Last 24 Hours (Table) 10/15/23 13:18 Blood Culture - Final Blood
--- NOTE | 2023-10-21 14:59 | P.PN ---
Subjective Patient is seen for follow-up for acute kidney injury. Patient remains on the vent. FiO2 at 50%. Uop 80-50 mL an hour Patient is off IMpella Off of Levophed as well. Serum creatinine slightly lower at 2.6 today. Maintained on Lasix 40 mg every 8 hours. Patient remains unresponsive after sedation has been discontinued. Objective - Vital Signs Vital signs: Vital Signs Temp 98.3 F 10/21/23 12:00 Pulse 105 H 10/21/23 14:00 Resp 29 H 10/21/23 14:00 BP 103/58 10/21/23 14:00 Pulse Ox 94 L 10/21/23 14:00 FiO2 50 10/21/23 12:00 Intake & Output 10/20/23 10/21/23 10/21/23 18:59 06:59 18:59 Intake Total 1216.344 209.394 524.069 Output Total 1135 1425 910 Balance 81.344 -1215.606 -385.931 Weight 121.5 kg 124.2 kg 124.2 kg Intake: IV 229.8 120 180 0.9 30 120 80 Meropenem 1 gm In Sodium 199.8 100 Chloride 0.9% 100 ml @ 33 .3 mls/hr IVPB Q8HR [place] Rx#:[id number] Intake, IV Titration 566.544 79.394 44.069 Amount Norepinephrine 4 mg In 33.311 Sodium Chloride 0.9% 250 ml @ 0.03 MCG/KG/MIN 13. 945 mls/hr IV .[id number] [place] Rx#:[id number] Potassium Chloride 10 meq 400 In Water For Injection 1 100ml.bag @ 100 mls/hr IVPB Q1H [place] Rx#: [id number] fentaNYL (PF). 1,000 mcg 30.596 45.845 23.559 In Sodium Chloride 0.9% 80 ml @ 0.5 MCG/KG/HR 5. 865 mls/hr IV .Q17H4M OH Rx#:[id number] propofoL 1,000 mg In 102.637 33.549 20.51 Empty Bag 1 bag @ 30 MCG/ KG/MIN 26.37 mls/hr IV . Q3H48M [place] Rx#:[id number] Tube Feeding 80 10 240 Blood Product 310 Rc As-1 Unit 310 [id number] Other 30 60 Output: Urine 1135 1425 910 Other: Voiding Method Indwelling Catheter Indwelling Catheter Indwelling Catheter ABP, PAP, CO, CI - Last Documented Arterial Blood Pressure 111/51 - Exam Patient is currently sedated and on the vent Examination of the heart S1 and S2 Examination of the lungs shows bilateral breath sounds are heard Abdomen is soft nontender Examination of lower extremity shows edema 2+ bilaterally upper and lower extremities [employer] exam shows patient is completely unresponsive without sedation. - Labs CBC & Chem 7: 10/21/23 05:13 10/21/23 05:13 Labs: Abnormal Lab Results - Last 24 Hours (Table) 10/20/23 10/20/23 10/20/23 Range/Units 10:16 16:03 18:00 WBC 18.4 H (3.8-10.6) k/uL RBC 2.81 L (4.30-5.90) m/uL Hgb 8.6 L D (13.0-17.5) gm/dL Hct 25.8 L (39.0-53.0) % RDW 15.8 H (11.5-15.5) % Plt Count 110 L (150-450) k/uL Neutrophils # (Manual) (1.3-7.7) k/uL Monocytes # (Manual) (0-1.0) k/uL Metamyelocytes # (Man) (0) k/uL Myelocytes # (Manual) (0) k/uL Nucleated RBCs (0-0) /100 WBC ABG Total CO2 (19-24) mmol/L Sodium (137-145) mmol/L Carbon Dioxide (22-30) mmol/L BUN (9-20) mg/dL Creatinine (0.66-1.25) mg/dL Glucose (74-99) mg/dL POC Glucose (mg/dL) 135 H (70-110) mg/dL Calcium (8.4-10.2) mg/dL Crossmatch See Detail 10/20/23 10/20/23 10/21/23 Range/Units 18:00 20:24 03:24 WBC (3.8-10.6) k/uL RBC (4.30-5.90) m/uL Hgb (13.0-17.5) gm/dL Hct (39.0-53.0) % RDW (11.5-15.5) % Plt Count (150-450) k/uL Neutrophils # (Manual) (1.3-7.7) k/uL Monocytes # (Manual) (0-1.0) k/uL Metamyelocytes # (Man) (0) k/uL Myelocytes # (Manual) (0) k/uL Nucleated RBCs (0-0) /100 WBC ABG Total CO2 (19-24) mmol/L Sodium 135 L (137-145) mmol/L Carbon Dioxide (22-30) mmol/L BUN 70 H (9-20) mg/dL Creatinine 2.52 H (0.66-1.25) mg/dL Glucose 106 H (74-99) mg/dL POC Glucose (mg/dL) 115 H 123 H (70-110) mg/dL Calcium 7.2 L (8.4-10.2) mg/dL Crossmatch 10/21/23 10/21/23 10/21/23 Range/Units 05:13 05:13 05:35 WBC 14.4 H (3.8-10.6) k/uL RBC 2.63 L (4.30-5.90) m/uL Hgb 8.2 L (13.0-17.5) gm/dL Hct 24.2 L (39.0-53.0) % RDW 16.8 H (11.5-15.5) % Plt Count 129 L (150-450) k/uL Neutrophils # (Manual) 10.60 H (1.3-7.7) k/uL Monocytes # (Manual) 1.01 H (0-1.0) k/uL Metamyelocytes # (Man) 0.72 H (0) k/uL Myelocytes # (Manual) 0.29 H (0) k/uL Nucleated RBCs 1 H (0-0) /100 WBC ABG Total CO2 25 H (19-24) mmol/L Sodium 135 L (137-145) mmol/L Carbon Dioxide 21 L (22-30) mmol/L BUN 71 H (9-20) mg/dL Creatinine 2.60 H (0.66-1.25) mg/dL Glucose 108 H (74-99) mg/dL POC Glucose (mg/dL) (70-110) mg/dL Calcium 7.4 L (8.4-10.2) mg/dL Crossmatch 10/21/23 Range/Units 12:47 WBC (3.8-10.6) k/uL RBC (4.30-5.90) m/uL Hgb (13.0-17.5) gm/dL Hct (39.0-53.0) % RDW (11.5-15.5) % Plt Count (150-450) k/uL Neutrophils # (Manual) (1.3-7.7) k/uL Monocytes # (Manual) (0-1.0) k/uL Metamyelocytes # (Man) (0) k/uL Myelocytes # (Manual) (0) k/uL Nucleated RBCs (0-0) /100 WBC ABG Total CO2 (19-24) mmol/L Sodium (137-145) mmol/L Carbon Dioxide (22-30) mmol/L BUN (9-20) mg/dL Creatinine (0.66-1.25) mg/dL Glucose (74-99) mg/dL POC Glucose (mg/dL) 181 H (70-110) mg/dL Calcium (8.4-10.2) mg/dL Crossmatch Microbiology - Last 24 Hours (Table) 10/15/23 13:18 Blood Culture - Final Blood Assessment and Plan Assessment: 1. Hyponatremia. Hypervolemic. Status post diuresis after initial admission. Sodium is currently stable at 132-133 2. Acute kidney injury, initially secondary to urine retention however curre ntly in ATN. Nonoliguric secondary to hypotension and cardiac arrest. No proteinuria on UA. No hydronephrosis noted on kidney ultrasound. Currently being diuresed for severe volume overload. 3. Urinary retention status post Rosales catheter placement. On Flomax. 4. Benign hypertension. Controlled. 5. Hypokalemia from poor intake and postobstructive diuresis. Magnesium normal. 6. Rhabdomyolysis secondary to fall. 7. Status postcardiac arrest x [address] elevation OK status post 5 coronary stents placement on 10/14/2023. 9. GI bleed 10. Cardiogenic shock 11. Volume overload Plan: Maintain scheduled dose of IV Lasix Overall prognosis is guarded. Repeat labs in a.m.
--- NOTE | 2023-10-21 15:46 | P.PN ---
Subjective Progress Note Date: 10/21/23 ACS This is a 77-year-old gentleman with history of hypertension and dyslipidemia and seizure disorder and thyroid disease and prior history of smoking. The patient was admitted to the hospital initially with a change in mental status after he fell in the bathroom at home. The patient lives with his grandson. We consulted to see the patient because of cardiac arrest with ventricular fibrillation/ventricular tachycardia where the patient subsequently received CPR according to the nurse taking care of him for about 12 hours and then he was intubated and he was brought to the intensive care unit. The history was taken from the chart because the patient was already intubated when he was seen in the intensive care unit. He was found on the floor by his family for several hours. He was weak. He attempted to get up but he could not. EMS was called and the patient was brought to the emergency department by ambulance. He underwent further investigation including CT scan of the brain which showed no acute abnormalities and EKG showed sinus mechanism with nonspecific ST and T wave abnormalities. Hemoglobin was within normal limits. Electrolytes were within normal limits beside hyponatremia. The chest x-ray showed no acute abnormalities beside elevated right hemidiaphragm. He was diagnosed with acute hypoxic respiratory failure and also he had recent coronavirus infection. During his hospital stay he had a cardiac arrest with V-fib. He was converted to normal sinus mechanism after he received CPR and received amiodarone and lidocaine. I did review the EKG when I I was called to see the patient and that showed lateral ST segment elevation myocardial infarction. STEMI code was called. The patient was brought to the cardiac [facility] [employer] [facility] immediately and he underwent an emergent heart catheterization and that revealed severe disease involving the ostial and proximal right coronary artery with occluded left circumflex appeared to be an acute occlusion. The lesion in the left circumflex was extremely complex and was very hard to cross. During the procedure he had another episode of cardiac arrest with pulseless electrical activities and we lost the floor in the left coronary system. The patient ended having stenting in the left main to LAD and stenting of the obtuse marginal branch and stenting of the right coronary artery and Impella CP was placed to support the pressure. Please refer to the procedure note for further details. The examination showed distant heart sounds with regular rhythm and soft nontender abdomen and diminished breathing sounds bilaterally. No edema was noted in the lower extremities October 15, 2023 The patient was seen and evaluated this morning. He continues to be intubated on mechanical ventilation. The chest x-ray was reviewed. He is off vasopressors but continues to be on norepinephrine which is in process to weaned from norepinephrine. He continues to be on heparin and Aggrastat. He is on dual antiplatelet therapy along with a statin. Hemodynamically he is overall slightly better. He has been maintaining normal sinus mechanism. From the cardiovascular standpoint of view I will continue the current medical regimen and switch the patient to oral amiodarone and DC lidocaine and stop Aggrastat at 18 hours. Apparently he cannot be on any beta-yazmin or FLORIN inhibitor at this point giving the low blood pressure. The examination is remarkable for regular rhythm with a distant heart sounds and diminished breathing sounds bilaterally and he does have a good Doppler signal in the left foot. October 16, 2023 The patient was seen and evaluated this morning. He continues to be on norepinephrine only at the small dose. His hemoglobin dropped to around 7 with ongoing to give the patient 1 unit of packed RBC hopefully we can wean him from norepinephrine and also hopefully it will improve the section of the arm on the Impella. Neurologically he is slightly better after the sedation was weaned. He continues to be on dual antiplatelet therapy. He continues to be on amiodarone. He continues to be on statin. Urine output has been marginal. I had a long discussion with the family in details about the condition and about the prognosis overall and they are in full understanding the poor prognosis overall. The examination is remarkable for regular rhythm with a distant heart sounds and diminished breathing sounds bilaterally and bilateral lower extremities edema noted. We had to stop the heparin because of gastrointestinal bleeding. The last episode of gastrointestinal bleeding was earlier this morn ing. 10/17/2023 Patient seen and examined at bedside this a.m. He is on norepinephrine 0.02. He is on Impella with P7 with 3 L output. MAP around 65 to 70 mmHg. Patient does not have any [facility] catheter in place. Bedside echocardiogram showed an EF of 10 to 15% with normally positioned Impella. IVC is not dilated Inputs and outputs: Around 500 cc of urine last 24 hours with total of 700 cc positive fluid balance. Labs: Hb 8.2, creatinine 1.75, BUN 53, sodium 132. 10/18/2023 Patient was seen and examined at bedside this a.m. Yesterday by evening Impella was reduced to P4 and norepinephrine to 0.04. Overnight patient had low blood pressure. We attempted to wean off norepinephrine and start him on dobutamine which patient could not tolerate. Eventually dobutamine was discontinued and patient was put back on norepinephrine. Patient has been requiring P7 Impella with 3 L output. At present 4 PM 10/18/2023, patient is off norepinephrine, P7 Impella 3 L output. Janee cardiac index 1.9 L/min/m, Janee cardiac output 4.9 L/min, stroke-volume 50 ml. Patient's hemoglobin dropped from 8 to 7-6.3 today. Patient also had black watery stools. He required 1 unit of blood transfusion. His IV heparin was discontinued which was started for Impella. 10/19/23 Seen and examined at bedside this a.m. Today patient has been doing well. We have been able to wean him down to P5 and he is not requiring any norepinephrine. Patient has a good pulse pressure with SBP 120, diastolic blood pressure 50s. Patient's urine output has been 25 to 30 cc/h. He appears mildly volume overloaded. Will give him 1 dose of IV Lasix 40 mg. His renal function has been slightly declining with creatinine trending up Today arterial sat 95%, mixed venous sat 51.7%, hemoglobin 7.4, heart rate 86. Cardiac output 6.3 L/min, cardiac index 2.5 L/min/m. Cardiac index is improved from yesterday with lesser power requirement on Impella and no requirement of IV pressors. Echocardiogram shows an EF of 15 to 20% with well-placed Impella. This is slightly improved from 10 to 15% from presentation. 10/20/2023 Patient Impella was removed yesterday. Post Impella it was noticed that patient's left common [place] vein had thrombus for which aspiration thrombectomy was done but was not able to aspirate 100% of clot. The arteriotomy site and the thrombus was secured wire covered stent in the left common femoral artery. Distal pulses since then and bilateral lower extremity has been intact. Today patient has been on low-dose norepinephrine which has been discontinued. His blood pressure has been 100 over 60s with maps of 60 to 70 mmHg. Patient is still maintaining on 20 mics of propofol. Hemoglobin was again less than 7 with black tarry stools. Patient received 1 unit of blood transfusion. PEEP is down to 10 mmHg Urine output 1.2 L 10/21/2023 Patient is off pressors and MAP is maintaining around 70 mmHg. Patient is having good urine output of around 2 L. Patient is off sedation but is not waking up. He is having a mild gag reflex. He is not responsive to deep pain stimuli. He is not withdrawing to pain. Hemoglobin stable with no further GI bleeding. Assessment Cardiogenic Shock, s/p Impella. Left common femoral vein thrombectomy with covered stent deployment for achieving patent hemostasis after Impella removal. Ischemic cardiomyopathy with EF 10-15% Acute anemia GI bleeding STEMI Acute total occlusion of the left circumflex proximally Severe disease involving the right coronary artery Cardiac arrest as described above Multiple risk factors including hypertension and dyslipidemia History of seizure Plan Continue aspirin, Plavix, statin Continue amiodarone orally Give the patient 1 unit of packed RBC if Hb <7. Ideally patient should be managed on IV heparin but unable to do so due to GI bleeding and low hemoglobin. Responding well to IV diuretics. Continue Lasix 40 mg 3 times daily. Discontinue midodrine as it will cause increase in afterload which might not be tolerated by patient's heart rate due to cardiomyopathy and low EF. Patient is not a candidate for EGD and colonoscopy at present due to hemodynamic instability. Consult neurology for evaluation of anoxic brain injury and brainstem reflex evaluation. Considering patient's anemia, active GI bleeding, cardiogenic shock, ventilator dependent respiratory failure with 50% FiO2, patient's overall prognosis is very poor. I have had a family discussion and have explained the patient's current condition. Objective - Vital Signs Vital signs: Vital Signs Temp 98.3 F 10/21/23 12:00 Pulse 94 10/21/23 15:36 Resp 29 H 10/21/23 14:00 BP 103/58 10/21/23 14:00 Pulse Ox 94 L 10/21/23 14:00 FiO2 50 10/21/23 15:35 Intake & Output 10/20/23 10/21/23 10/21/23 18:59 06:59 18:59 Intake Total 1216.344 209.394 574.069 Output Total 1135 1425 1035 Balance 81.344 -1215.606 -460.931 Weight 121.5 kg 124.2 kg 124.2 kg Intake: IV 229.8 120 190 0.9 30 120 90 Meropenem 1 gm In Sodium 199.8 100 Chloride 0.9% 100 ml @ 33 .3 mls/hr IVPB Q8HR [place] Rx#:[id number] Intake, IV Titration 566.544 79.394 44.069 Amount Norepinephrine 4 mg In 33.311 Sodium Chloride 0.9% 250 ml @ 0.03 MCG/KG/MIN 13. 945 mls/hr IV .[id number] [place] Rx#:[id number] Potassium Chloride 10 meq 400 In Water For Injection 1 100ml.bag @ 100 mls/hr IVPB Q1H [place] Rx#: [id number] fentaNYL (PF). 1,000 mcg 30.596 45.845 23.559 In Sodium Chloride 0.9% 80 ml @ 0.5 MCG/KG/HR 5. 865 mls/hr IV .Q17H4M OH Rx#:[id number] propofoL 1,000 mg In 102.637 33.549 20.51 Empty Bag 1 bag @ 30 MCG/ KG/MIN 26.37 mls/hr IV . Q3H48M [place] Rx#:[id number] Tube Feeding 80 10 280 Blood Product 310 Rc As-1 Unit 310 [id number] Other 30 60 Output: Urine 1135 1425 1035 Other: Voiding Method Indwelling Catheter Indwelling Catheter Indwelling Catheter ABP, PAP, CO, CI - Last Documented Arterial Blood Pressure 111/51 - Labs CBC & Chem 7: 10/21/23 05:13 10/21/23 05:13 Labs: Abnormal Lab Results - Last 24 Hours (Table) 10/20/23 10/20/23 10/20/23 Range/Units 10:16 16:03 18:00 WBC 18.4 H (3.8-10.6) k/uL RBC 2.81 L (4.30-5.90) m/uL Hgb 8.6 L D (13.0-17.5) gm/dL Hct 25.8 L (39.0-53.0) % RDW 15.8 H (11.5-15.5) % Plt Count 110 L (150-450) k/uL Neutrophils # (Manual) (1.3-7.7) k/uL Monocytes # (Manual) (0-1.0) k/uL Metamyelocytes # (Man) (0) k/uL Myelocytes # (Manual) (0) k/uL Nucleated RBCs (0-0) /100 WBC ABG Total CO2 (19-24) mmol/L Sodium (137-145) mmol/L Carbon Dioxide (22-30) mmol/L BUN (9-20) mg/dL Creatinine (0.66-1.25) mg/dL Glucose (74-99) mg/dL POC Glucose (mg/dL) 135 H (70-110) mg/dL Calcium (8.4-10.2) mg/dL Crossmatch See Detail 10/20/23 10/20/23 10/21/23 Range/Units 18:00 20:24 03:24 WBC (3.8-10.6) k/uL RBC (4.30-5.90) m/uL Hgb (13.0-17.5) gm/dL Hct (39.0-53.0) % RDW (11.5-15.5) % Plt Count (150-450) k/uL Neutrophils # (Manual) (1.3-7.7) k/uL Monocytes # (Manual) (0-1.0) k/uL Metamyelocytes # (Man) (0) k/uL Myelocytes # (Manual) (0) k/uL Nucleated RBCs (0-0) /100 WBC ABG Total CO2 (19-24) mmol/L Sodium 135 L (137-145) mmol/L Carbon Dioxide (22-30) mmol/L BUN 70 H (9-20) mg/dL Creatinine 2.52 H (0.66-1.25) mg/dL Glucose 106 H (74-99) mg/dL POC Glucose (mg/dL) 115 H 123 H (70-110) mg/dL Calcium 7.2 L (8.4-10.2) mg/dL Crossmatch 10/21/23 10/21/23 10/21/23 Range/Units 05:13 05:13 05:35 WBC 14.4 H (3.8-10.6) k/uL RBC 2.63 L (4.30-5.90) m/uL Hgb 8.2 L (13.0-17.5) gm/dL Hct 24.2 L (39.0-53.0) % RDW 16.8 H (11.5-15.5) % Plt Count 129 L (150-450) k/uL Neutrophils # (Manual) 10.60 H (1.3-7.7) k/uL Monocytes # (Manual) 1.01 H (0-1.0) k/uL Metamyelocytes # (Man) 0.72 H (0) k/uL Myelocytes # (Manual) 0.29 H (0) k/uL Nucleated RBCs 1 H (0-0) /100 WBC ABG Total CO2 25 H (19-24) mmol/L Sodium 135 L (137-145) mmol/L Carbon Dioxide 21 L (22-30) mmol/L BUN 71 H (9-20) mg/dL Creatinine 2.60 H (0.66-1.25) mg/dL Glucose 108 H (74-99) mg/dL POC Glucose (mg/dL) (70-110) mg/dL Calcium 7.4 L (8.4-10.2) mg/dL Crossmatch 10/21/23 Range/Units 12:47 WBC (3.8-10.6) k/uL RBC (4.30-5.90) m/uL Hgb (13.0-17.5) gm/dL Hct (39.0-53.0) % RDW (11.5-15.5) % Plt Count (150-450) k/uL Neutrophils # (Manual) (1.3-7.7) k/uL Monocytes # (Manual) (0-1.0) k/uL Metamyelocytes # (Man) (0) k/uL Myelocytes # (Manual) (0) k/uL Nucleated RBCs (0-0) /100 WBC ABG Total CO2 (19-24) mmol/L Sodium (137-145) mmol/L Carbon Dioxide (22-30) mmol/L BUN (9-20) mg/dL Creatinine (0.66-1.25) mg/dL Glucose (74-99) mg/dL POC Glucose (mg/dL) 181 H (70-110) mg/dL Calcium (8.4-10.2) mg/dL Crossmatch Microbiology - Last 24 Hours (Table) 10/15/23 13:18 Blood Culture - Final Blood
--- NOTE | 2023-10-21 16:11 | P.PN ---
Subjective Progress Note Date: 10/21/23 Principal diagnosis: Reason for follow-up is COVID-19 and pneumonia Patient is a 77-year-old male with a past medical history significant for hypertension seizure disorder hypothyroidism patient has been brought into the hospital for evaluation of generalized weakness patient was noticed to be on the bathroom floor after apparently patient fell down, patient did tested positive for COVID-19, initial chest x-ray reported negative.Patient did have significant change in his clinical condition and did have a cardiac arrest on 10/14/2023 the patient was taken to the Orthodontist and did have PTCA and stenting x 5 subsequently patient has been admitted to ICU. On today's visit that is 10/21/2023, Patient did spike a fever of 101.4 F at 4 AM patient is afebrile since then patient remains to be intubated on the vent FiO2 to 50% no significant purulent secretion through the ET or any other changes reported by the nursing staff. Patient white count is at 14.4, creatinine is 2.60, sputum culture negative Objective - Vital Signs Vital signs: Vital Signs Temp 99.0 F 10/21/23 08:00 Pulse 100 10/21/23 11:00 Resp 31 H 10/21/23 11:00 BP 103/61 10/21/23 11:00 Pulse Ox 96 10/21/23 11:00 FiO2 50 10/21/23 12:00 Intake & Output 10/20/23 10/21/23 10/21/23 18:59 06:59 18:59 Intake Total 1216.344 209.394 244.069 Output Total 1135 1425 560 Balance 81.344 -1215.606 -315.931 Weight 121.5 kg 124.2 kg Intake: IV 229.8 120 50 0.9 30 120 50 Meropenem 1 gm In Sodium 199.8 Chloride 0.9% 100 ml @ 33 .3 mls/hr IVPB Q8HR [place] Rx#:[id number] Intake, IV Titration 566.544 79.394 44.069 Amount Norepinephrine 4 mg In 33.311 Sodium Chloride 0.9% 250 ml @ 0.03 MCG/KG/MIN 13. 945 mls/hr IV .[id number] [place] Rx#:[id number] Potassium Chloride 10 meq 400 In Water For Injection 1 100ml.bag @ 100 mls/hr IVPB Q1H [place] Rx#: [id number] fentaNYL (PF). 1,000 mcg 30.596 45.845 23.559 In Sodium Chloride 0.9% 80 ml @ 0.5 MCG/KG/HR 5. 865 mls/hr IV .Q17H4M OH Rx#:[id number] propofoL 1,000 mg In 102.637 33.549 20.51 Empty Bag 1 bag @ 30 MCG/ KG/MIN 26.37 mls/hr IV . Q3H48M OH Rx#:[id number] Tube Feeding 80 10 120 Blood Product 310 Rc As-1 Unit 310 [id number] Other 30 30 Output: Urine 1135 1425 560 Other: Voiding Method Indwelling Catheter Indwelling Catheter Indwelling Catheter ABP, PAP, CO, CI - Last Documented Arterial Blood Pressure 111/51 - Exam GENERAL DESCRIPTION: An elderly male intubated on the vent RESPIRATORY SYSTEM: Unlabored breathing , decreased breath sounds at bases HEART: S1 S2 regular rate and rhythm , ABDOMEN: Soft , no tenderness EXTREMITIES: No edema feet - Labs CBC & Chem 7: 10/21/23 05:13 10/21/23 05:13 Labs: Abnormal Lab Results - Last 24 Hours (Table) 10/20/23 10/20/23 10/20/23 Range/Units 10:16 16:03 18:00 WBC 18.4 H (3.8-10.6) k/uL RBC 2.81 L (4.30-5.90) m/uL Hgb 8.6 L D (13.0-17.5) gm/dL Hct 25.8 L (39.0-53.0) % RDW 15.8 H (11.5-15.5) % Plt Count 110 L (150-450) k/uL Neutrophils # (Manual) (1.3-7.7) k/uL Monocytes # (Manual) (0-1.0) k/uL Metamyelocytes # (Man) (0) k/uL Myelocytes # (Manual) (0) k/uL Nucleated RBCs (0-0) /100 WBC ABG Total CO2 (19-24) mmol/L Sodium (137-145) mmol/L Carbon Dioxide (22-30) mmol/L BUN (9-20) mg/dL Creatinine (0.66-1.25) mg/dL Glucose (74-99) mg/dL POC Glucose (mg/dL) 135 H (70-110) mg/dL Calcium (8.4-10.2) mg/dL Crossmatch See Detail 10/20/23 10/20/23 10/21/23 Range/Units 18:00 20:24 03:24 WBC (3.8-10.6) k/uL RBC (4.30-5.90) m/uL Hgb (13.0-17.5) gm/dL Hct (39.0-53.0) % RDW (11.5-15.5) % Plt Count (150-450) k/uL Neutrophils # (Manual) (1.3-7.7) k/uL Monocytes # (Manual) (0-1.0) k/uL Metamyelocytes # (Man) (0) k/uL Myelocytes # (Manual) (0) k/uL Nucleated RBCs (0-0) /100 WBC ABG Total CO2 (19-24) mmol/L Sodium 135 L (137-145) mmol/L Carbon Dioxide (22-30) mmol/L BUN 70 H (9-20) mg/dL Creatinine 2.52 H (0.66-1.25) mg/dL Glucose 106 H (74-99) mg/dL POC Glucose (mg/dL) 115 H 123 H (70-110) mg/dL Calcium 7.2 L (8.4-10.2) mg/dL Crossmatch 10/21/23 10/21/23 10/21/23 Range/Units 05:13 05:13 05:35 WBC 14.4 H (3.8-10.6) k/uL RBC 2.63 L (4.30-5.90) m/uL Hgb 8.2 L (13.0-17.5) gm/dL Hct 24.2 L (39.0-53.0) % RDW 16.8 H (11.5-15.5) % Plt Count 129 L (150-450) k/uL Neutrophils # (Manual) 10.60 H (1.3-7.7) k/uL Monocytes # (Manual) 1.01 H (0-1.0) k/uL Metamyelocytes # (Man) 0.72 H (0) k/uL Myelocytes # (Manual) 0.29 H (0) k/uL Nucleated RBCs 1 H (0-0) /100 WBC ABG Total CO2 25 H (19-24) mmol/L Sodium 135 L (137-145) mmol/L Carbon Dioxide 21 L (22-30) mmol/L BUN 71 H (9-20) mg/dL Creatinine 2.60 H (0.66-1.25) mg/dL Glucose 108 H (74-99) mg/dL POC Glucose (mg/dL) (70-110) mg/dL Calcium 7.4 L (8.4-10.2) mg/dL Crossmatch Microbiology - Last 24 Hours (Table) 10/15/23 13:18 Blood Culture - Final Blood Assessment and Plan (1) COVID-19 Current Visit: Yes Status: Acute Code(s): U07.1 - COVID-19 SNOMED Code(s): 452146437 (2) Sepsis Current Visit: Yes Status: Acute Code(s): A41.9 - SEPSIS, UNSPECIFIED ORGANISM SNOMED Code(s): 30781640 (3) Pneumonia Current Visit: Yes Status: Acute Code(s): J18.9 - PNEUMONIA, UNSPECIFIED ORGANISM SNOMED Code(s): 305744325 (4) Penicillin allergy Current Visit: Yes Status: Acute Code(s): Z88.0 - ALLERGY STATUS TO PENICILLIN SNOMED Code(s): 61698012 (5) Thrush, oral Current Visit: Yes Status: Acute Code(s): B37.0 - CANDIDAL STOMATITIS SNOMED Code(s): 53195107 Plan: 1patient did have significant changes in clinical condition he did have a cardiac arrest on 10/14/2023 Patient Was Taken to the Orthodontist status post PTCA and stenting x 5 patient did have a new fever and is requiring pressor support 2- blood cultures and sputum for Gram stain culture are so far negative 3-patient did have a new fever however the patient white count is trending down question of central fever for now continue with the meropenem and monitor clinical course closely Dictation was produced using [employer] dictation software. please excuse any grammatical, word or spelling errors. Time with Patient: Less than 30
[2023-10-21 16:15] LABS: Glucose,Whole Blood 144 mg/dL (70-110)
[2023-10-21 20:07] LABS: Glucose,Whole Blood 169 mg/dL (70-110)
[2023-10-21 23:59] LABS: Glucose,Whole Blood 151 mg/dL (70-110)
[2023-10-22 00:02] LABS: Glucose,Whole Blood 147 mg/dL (70-110)
--- NOTE | 2023-10-22 00:29 | P.PN ---
Subjective Progress Note Date: 10/21/23 Patient was seen for a follow-up. She was placed on low-dose sedation last night but has been off sedation since 9 AM this morning. Patient continues to be comatose. No seizure-like activity. Objective - Vital Signs Vital signs: Vital Signs Temp 98.5 F 10/21/23 16:00 Pulse 101 H 10/21/23 19:00 Resp 33 H 10/21/23 19:00 BP 110/57 10/21/23 19:00 Pulse Ox 96 10/21/23 19:00 FiO2 50 10/21/23 16:00 Intake & Output 10/21/23 10/21/23 10/22/23 06:59 18:59 06:59 Intake Total 209.394 894.069 Output Total 1425 1585 Balance -1215.606 -690.931 Weight 124.2 kg 124.2 kg Intake: IV 120 320 0.9 120 120 Meropenem 1 gm In Sodium 200 Chloride 0.9% 100 ml @ 33 .3 mls/hr IVPB Q8HR [place] Rx#:[id number] Intake, IV Titration 79.394 44.069 Amount fentaNYL (PF). 1,000 mcg 45.845 23.559 In Sodium Chloride 0.9% 80 ml @ 0.5 MCG/KG/HR 5. 865 mls/hr IV .Q17H4M [place] Rx#:[id number] propofoL 1,000 mg In 33.549 20.51 Empty Bag 1 bag @ 30 MCG/ KG/MIN 26.37 mls/hr IV . Q3H48M [place] Rx#:[id number] Tube Feeding 10 440 Other 90 Output: Urine 1425 1585 Other: Voiding Method Indwelling Catheter Indwelling Catheter ABP, PAP, CO, CI - Last Documented Arterial Blood Pressure 111/51 - Exam Patient is comatose, GCS of 3. Patient is intubated, off sedation since 9 AM. Pupils are equal, round and reactive to light, oculocephalics are present. C orneals present. Patient does have hyperactive gag and cough. Patient is breathing over the ventilator. Patient does not respond to noxious stimuli. No seizure-like activity. - Labs CBC & Chem 7: 10/21/23 05:13 10/21/23 05:13 Labs: Abnormal Lab Results - Last 24 Hours (Table) 10/20/23 10/21/23 10/21/23 Range/Units 20:24 03:24 05:13 WBC (3.8-10.6) k/uL RBC (4.30-5.90) m/uL Hgb (13.0-17.5) gm/dL Hct (39.0-53.0) % RDW (11.5-15.5) % Plt Count (150-450) k/uL Neutrophils # (Manual) (1.3-7.7) k/uL Monocytes # (Manual) (0-1.0) k/uL Metamyelocytes # (Man) (0) k/uL Myelocytes # (Manual) (0) k/uL Nucleated RBCs (0-0) /100 WBC ABG Total CO2 (19-24) mmol/L Sodium 135 L (137-145) mmol/L Carbon Dioxide 21 L (22-30) mmol/L BUN 71 H (9-20) mg/dL Creatinine 2.60 H (0.66-1.25) mg/dL Glucose 108 H (74-99) mg/dL POC Glucose (mg/dL) 115 H 123 H (70-110) mg/dL Calcium 7.4 L (8.4-10.2) mg/dL 10/21/23 10/21/23 10/21/23 Range/Units 05:13 05:35 12:47 WBC 14.4 H (3.8-10.6) k/uL RBC 2.63 L (4.30-5.90) m/uL Hgb 8.2 L (13.0-17.5) gm/dL Hct 24.2 L (39.0-53.0) % RDW 16.8 H (11.5-15.5) % Plt Count 129 L (150-450) k/uL Neutrophils # (Manual) 10.60 H (1.3-7.7) k/uL Monocytes # (Manual) 1.01 H (0-1.0) k/uL Metamyelocytes # (Man) 0.72 H (0) k/uL Myelocytes # (Manual) 0.29 H (0) k/uL Nucleated RBCs 1 H (0-0) /100 WBC ABG Total CO2 25 H (19-24) mmol/L Sodium (137-145) mmol/L Carbon Dioxide (22-30) mmol/L BUN (9-20) mg/dL Creatinine (0.66-1.25) mg/dL Glucose (74-99) mg/dL POC Glucose (mg/dL) 181 H (70-110) mg/dL Calcium (8.4-10.2) mg/dL 10/21/23 Range/Units 16:13 WBC (3.8-10.6) k/uL RBC (4.30-5.90) m/uL Hgb (13.0-17.5) gm/dL Hct (39.0-53.0) % RDW (11.5-15.5) % Plt Count (150-450) k/uL Neutrophils # (Manual) (1.3-7.7) k/uL Monocytes # (Manual) (0-1.0) k/uL Metamyelocytes # (Man) (0) k/uL Myelocytes # (Manual) (0) k/uL Nucleated RBCs (0-0) /100 WBC ABG Total CO2 (19-24) mmol/L Sodium (137-145) mmol/L Carbon Dioxide (22-30) mmol/L BUN (9-20) mg/dL Creatinine (0.66-1.25) mg/dL Glucose (74-99) mg/dL POC Glucose (mg/dL) 144 H (70-110) mg/dL Calcium (8.4-10.2) mg/dL Microbiology - Last 24 Hours (Table) 10/15/23 13:18 Blood Culture - Final Blood Assessment and Plan Assessment: * Status post cardiac arrest x 2, on 10/14/2023 with ventricular tachycardia and ventricular fibrillation. Downtime reported about 7-9 minutes the first time, and about 10 to 15 minutes during cardiac catheterization. Probable anoxic encephalopathy. * Acute hypoxic respiratory failure secondary to cardiac arrest, on mechanical ventilation * Longstanding history of seizure disorder/epilepsy. * Abnormal EEG. * Status post cardiac catheterization for acute lateral ST segment elevation myocardial infarction and the patient underwent emergent cardiac catheterization. The patient underwent a complicated coronary intervention requiring Impella for hemodynamic support, stenting of the left main, circumflex, proximal and mid RCA. A total of 5 stents were inserted. * Upper GI bleeding related to various antiplatelet agents and anticoagulation patient is now off heparin he is on aspirin and Plavix * Acute blood loss anemia requiring transfusion * Acute kidney injury, could be cardiorenal in nature, getting worse. * CHF, with EF 20% * Pneumonia * Acute hypoxic metabolic encephalopathy * History of COVID-19 pneumonia, recovering * History of seizure disorder * Hypothyroidism * Hypertension * Ex-smoker Plan: * Repeat EEG performed today revealed continued moderate to severe background slowing consistent with encephalopathy. Sporadic sharply contoured waves were seen, better as compared to the EEG from yesterday. No electrographic seizure recorded. No electrographic evidence of status. * Patient may benefit from continuous EEG monitoring, which is not available in this hospital. * Increase Keppra to 750 mg twice daily * Initial EEG performed today. It was abnormal due to background slowing of moderate to severe degree, suggestive of encephalopathy. Presence of sporadic intermittent generalized sharp appearing waves, which occasionally becomes more rhythmic at about 1 Hz, suggestive of underlying cortical irritability and tendency for seizure. No electrographic seizure was recorded. Clinical correlation and a follow-up EEG recommended. * Patient currently on Depakote. Depakote level <10.0, ammonia 17 which is normal. * Increase Keppra to 750 mg twice daily. * Repeat CT head performed 10/20/2023 showed no acute intracranial process. Nonspecific mild paranasal sinus disease. Agree with the findings. * Other medical management as per IM, critical care and other specialties on board. Patient critically sick. * Patient continues to be comatose eighth day postarrest. Long-term prognosis for meaningful recovery appears very guarded to poor. * Dr. Moreno will cover neurology service over the weekend.
--- NOTE | 2023-10-22 01:19 | EEG ---
ELECTROENCEPHALOGRAM REPORT PREAMBLE: This is a 77-year-old male with cardiac arrest. He also has history of seizure disorder. This study is performed to evaluate for epileptiform activity and a followup EEG. EEG FINDINGS: This is a 21-channel digital EEG recorded with video component, utilizing 10/20 international system with referential bipolar montages. Background consists of moderately well-developed, poorly regulated, predominantly mixed frequencies of some 2- 3 hertz delta intermixed with some 4-5 hertz theta activity seen in bihemispheric region. Background does not seem to be reactive to eye opening and closing. Sporadic generalized-sharply controlled waves were seen during the study. Photic stimulation was not performed. Different stages of sleep were not seen. No electrographic seizure was recorded. IMPRESSION: 1. This is an abnormal EEG due to background slowing of [id number] degree. This is suggestive of generalized cerebral dysfunction as can be seen with toxic metabolic encephalopathy or related to diffuse structural brain abnormality. Clinical correlation is recommended. 2. Presence of sporadic sharply controlled waves in generalized distribution that suggests underlying cortical irritability. No electrographic seizure was recorded. 3. When compared to EEG from 10/20/2023, there maybe minimal improvement in the background rhythm-sharply controlled waves were less frequently seen in the current study and no electrographic seizure was recorded. MMODL / IJN: [id number] /
[2023-10-22 05:19] LABS: Glucose,Whole Blood 192 mg/dL (70-110)
[2023-10-22 06:27] LABS: ABG Base Excess 3.4 mmol/L; ABG HCO3 26 mmol/L (21-25); ABG PCO2 33 mmHg (35-45); ABG PH 7.52 (7.35-7.45); ABG PO2 83 mmHg (83-108); ABG TCO2 27 mmol/L (19-24); Allen Test Performed? Yes
[2023-10-22 06:28] LABS: ABG Oxygen Saturation 96.8 % (94-97)
[2023-10-22 07:18] LABS: Anisocytosis Slight; HCT 24.5 % (39.0-53.0); HGB 8.2 gm/dL (13.0-17.5); MCHC 33.5 g/dL (31.0-37.0); MCV 92.6 fL (80.0-100.0); Mean Platelet Volume 10.1; Platelet Count 186 k/uL (150-450); RBC 2.65 m/uL (4.30-5.90); RDW 17.3 % (11.5-15.5)
[2023-10-22 07:41] LABS: African American GFR (CKD) 31 (>60 ml/min/1.73 sqM); Anion Gap 8 mmol/L; Blood Urea Nitrogen 78 mg/dL (9-20); Calcium 7.5 mg/dL (8.4-10.2); Carbon Dioxide 26 mmol/L (22-30); Chloride 106 mmol/L (98-107); Glucose 157 mg/dL (74-99); Non-African American GFR(CKD) 27 (>60 ml/min/1.73 sqM); Potassium 3.1 mmol/L (3.5-5.1); Sodium 140 mmol/L (137-145)
--- NOTE | 2023-10-22 08:32 | P.PN ---
Subjective Patient is seen in follow-up for acute kidney injury. Renal function better. On IV Lasix. Nonoliguric. Off Levophed. Intubated. Vital signs are stable. General: No acute distress. HEENT: Intubated. LUNGS: Scattered rhonchi. HEART: Rate and Rhythm are regular. ABDOMEN: Nontender. EXTREMITITES: 2+ edema. Objective - Vital Signs Vital signs: Vital Signs Temp 98.9 F 10/22/23 08:00 Pulse 99 10/22/23 08:12 Resp 33 H 10/22/23 08:00 BP 128/69 10/22/23 08:00 Pulse Ox 97 10/22/23 08:00 FiO2 50 10/22/23 08:01 Intake & Output 10/21/23 10/22/23 10/22/23 18:59 06:59 18:59 Intake Total 894.069 793 146 Output Total 1585 1475 365 Balance -690.931 -682 -219 Weight 124.2 kg 124.6 kg Intake: IV 320 110 20 0.9 120 110 20 Meropenem 1 gm In Sodium 200 Chloride 0.9% 100 ml @ 33 .3 mls/hr IVPB Q8HR [place] Rx#:[id number] Intake, IV Titration 44.069 Amount fentaNYL (PF). 1,000 mcg 23.559 In Sodium Chloride 0.9% 80 ml @ 0.5 MCG/KG/HR 5. 865 mls/hr IV .Q17H4M OH Rx#:[id number] propofoL 1,000 mg In 20.51 Empty Bag 1 bag @ 30 MCG/ KG/MIN 26.37 mls/hr IV . Q3H48M OH Rx#:[id number] Tube Feeding 440 593 126 Other 90 90 Output: Urine 1585 1475 365 Other: Voiding Method Indwelling Catheter Indwelling Catheter ABP, PAP, CO, CI - Last Documented Arterial Blood Pressure 111/51 - Labs CBC & Chem 7: 10/22/23 06:45 10/22/23 06:45 Labs: Abnormal Lab Results - Last 24 Hours (Table) 10/21/23 10/21/23 10/21/23 Range/Units 05:13 12:47 16:13 WBC 14.4 H (3.8-10.6) k/uL RBC (4.30-5.90) m/uL Hgb (13.0-17.5) gm/dL Hct (39.0-53.0) % RDW (11.5-15.5) % Neutrophils # (Manual) 10.60 H (1.3-7.7) k/uL Monocytes # (Manual) 1.01 H (0-1.0) k/uL Metamyelocytes # (Man) 0.72 H (0) k/uL Myelocytes # (Manual) 0.29 H (0) k/uL Nucleated RBCs 1 H (0-0) /100 WBC ABG pH (7.35-7.45) ABG pCO2 (35-45) mmHg ABG HCO3 (21-25) mmol/L ABG Total CO2 (19-24) mmol/L Potassium (3.5-5.1) mmol/L BUN (9-20) mg/dL Creatinine (0.66-1.25) mg/dL Glucose (74-99) mg/dL POC Glucose (mg/dL) 181 H 144 H (70-110) mg/dL Calcium (8.4-10.2) mg/dL 10/21/23 10/21/23 10/22/23 Range/Units 20:06 23:58 00:01 WBC (3.8-10.6) k/uL RBC (4.30-5.90) m/uL Hgb (13.0-17.5) gm/dL Hct (39.0-53.0) % RDW (11.5-15.5) % Neutrophils # (Manual) (1.3-7.7) k/uL Monocytes # (Manual) (0-1.0) k/uL Metamyelocytes # (Man) (0) k/uL Myelocytes # (Manual) (0) k/uL Nucleated RBCs (0-0) /100 WBC ABG pH (7.35-7.45) ABG pCO2 (35-45) mmHg ABG HCO3 (21-25) mmol/L ABG Total CO2 (19-24) mmol/L Potassium (3.5-5.1) mmol/L BUN (9-20) mg/dL Creatinine (0.66-1.25) mg/dL Glucose (74-99) mg/dL POC Glucose (mg/dL) 169 H 151 H 147 H (70-110) mg/dL Calcium (8.4-10.2) mg/dL 10/22/23 10/22/23 10/22/23 Range/Units 05:18 06:25 06:45 WBC (3.8-10.6) k/uL RBC (4.30-5.90) m/uL Hgb (13.0-17.5) gm/dL Hct (39.0-53.0) % RDW (11.5-15.5) % Neutrophils # (Manual) (1.3-7.7) k/uL Monocytes # (Manual) (0-1.0) k/uL Metamyelocytes # (Man) (0) k/uL Myelocytes # (Manual) (0) k/uL Nucleated RBCs (0-0) /100 WBC ABG pH 7.52 H (7.35-7.45) ABG pCO2 33 L (35-45) mmHg ABG HCO3 26 H (21-25) mmol/L ABG Total CO2 27 H (19-24) mmol/L Potassium 3.1 L (3.5-5.1) mmol/L BUN 78 H (9-20) mg/dL Creatinine 2.28 H (0.66-1.25) mg/dL Glucose 157 H (74-99) mg/dL POC Glucose (mg/dL) 192 H (70-110) mg/dL Calcium 7.5 L (8.4-10.2) mg/dL 10/22/23 Range/Units 06:45 WBC 15.9 H (3.8-10.6) k/uL RBC 2.65 L (4.30-5.90) m/uL Hgb 8.2 L (13.0-17.5) gm/dL Hct 24.5 L (39.0-53.0) % RDW 17.3 H (11.5-15.5) % Neutrophils # (Manual) (1.3-7.7) k/uL Monocytes # (Manual) (0-1.0) k/uL Metamyelocytes # (Man) (0) k/uL Myelocytes # (Manual) (0) k/uL Nucleated RBCs (0-0) /100 WBC ABG pH (7.35-7.45) ABG pCO2 (35-45) mmHg ABG HCO3 (21-25) mmol/L ABG Total CO2 (19-24) mmol/L Potassium (3.5-5.1) mmol/L BUN (9-20) mg/dL Creatinine (0.66-1.25) mg/dL Glucose (74-99) mg/dL POC Glucose (mg/dL) (70-110) mg/dL Calcium (8.4-10.2) mg/dL Assessment and Plan Plan: Assessment: 1. Hyponatremia. Due to urinary retention and hypervolemia. Improved. TSH normal. Urine osmolality 543. Urine sodium less than 20. 2. Acute kidney injury initially secondary to urinary retention. Now ATN due to cardiac arrest. Creatinine peaked at 2.6 this admission and is 2.28 today. No proteinuria on UA. No hydronephrosis noted on kidney ultrasound. 3. Urinary retention status post Rosales catheter placement. On Flomax. Urology following. 4. Benign hypertension. Controlled. Off Levophed. 5. Hypokalemia from diuresis. 6. Rhabdomyolysis secondary to fall. CK level improved. 7. Acute blood loss anemia status post blood transfusion this admission. Hemoglobin stable at 8.2. 8. Volume overload. 9. Acute ST elevated myocardial infarction status post cardiac stenting October 14, 2023. 10. Acute systolic CHF with ejection fraction of 20 to 25% noted on echocardiog jairo done October 18, 2023. Plan: Maintain IV Lasix. Receiving tube feeds. Replace potassium. Check magnesium level as well. Encouraged oral intake. Avoid nephrotoxins. Continue to monitor renal function and urine output. Wean FiO2. Prognosis guarded.
[2023-10-22] MEDS: POTASSIUM BICARBONATE/CIT AC 20 MEQ TABLET.EFF NG-TUBE SCH (08:47)
[2023-10-22] MEDS: levETIRAcetam IV 500 MG/5 ML VIAL IVP SCH (08:48)
--- NOTE | 2023-10-22 09:07 | XR ---
EXAMINATION TYPE: XR chest 1V portable DATE OF EXAM: 10/22/2023 Comparison: 10/21/2023 Clinical History: 77-year-old male vent Findings: ET tube tip 3.0 cm from the emile. NG tube courses below the diaphragm. Ongoing asymmetric elevation right hemidiaphragm. Patchy opacity throughout the right lung is similar. Mild patchy density at the left base increasing. Prominent rightward patient rotation. Impression: 1. Similar asymmetric volume loss right hemithorax with elevation of the right hemidiaphragm. 2. Similar patchy opacity on the right, particularly at the mid lung. 3. Some patchy density at the left base may be slightly increasing.
[2023-10-22 09:49] LABS: Band Neutrophils % 2 %; Basophils # (M) 0.16 k/uL (0-0.2); Metamyelocytes % 2 %; Myelocytes # (M) 0.16 k/uL (0); Myelocytes % 1 %; Neutrophils % (M) 71 %; Nucleated Red Blood Cells 1 /100 WBC (0-0); Total Cells Counted 200
[2023-10-22 09:50] LABS: Lymphocytes # (M) 2.98 k/uL (1.0-4.8); Metamyelocytes # (M) 0.31 k/uL (0); Monocytes # (M) 0.94 k/uL (0-1.0); WBC 15.7 k/uL (3.8-10.6)
[2023-10-22 11:37] LABS: Glucose,Whole Blood 165 mg/dL (70-110)
--- NOTE | 2023-10-22 11:45 | P.PN ---
Subjective Progress Note Date: 10/22/23 ACS This is a 77-year-old gentleman with history of hypertension and dyslipidemia and seizure disorder and thyroid disease and prior history of smoking. The patient was admitted to the hospital initially with a change in mental status after he fell in the bathroom at home. The patient lives with his grandson. We consulted to see the patient because of cardiac arrest with ventricular fibrillation/ventricular tachycardia where the patient subsequently received CPR according to the nurse taking care of him for about 12 hours and then he was intubated and he was brought to the intensive care unit. The history was taken from the chart because the patient was already intubated when he was seen in the intensive care unit. He was found on the floor by his family for several hours. He was weak. He attempted to get up but he could not. EMS was called and the patient was brought to the emergency department by ambulance. He underwent further investigation including CT scan of the brain which showed no acute abnormalities and EKG showed sinus mechanism with nonspecific ST and T wave abnormalities. Hemoglobin was within normal limits. Electrolytes were within normal limits beside hyponatremia. The chest x-ray showed no acute abnormalities beside elevated right hemidiaphragm. He was diagnosed with acute hypoxic respiratory failure and also he had recent coronavirus infection. During his hospital stay he had a cardiac arrest with V-fib. He was converted to normal sinus mechanism after he received CPR and received amiodarone and lidocaine. I did review the EKG when I I was called to see the patient and that showed lateral ST segment elevation myocardial infarction. STEMI code was called. The patient was brought to the cardiac [facility] immediately and he underwent an emergent heart catheterization and that revealed severe disease involving the ostial and proximal right coronary artery with occluded left circumflex appeared to be an acute occlusion. The lesion in the left circumflex was extremely complex and was very hard to cross. During the procedure he had another episode of cardiac arrest with pulseless electrical activities and we lost the floor in the left coronary system. The patient ended having stenting in the left main to LAD and stenting of the obtuse marginal branch and stenting of the right coronary artery and Impella CP was placed to support the pressure. Please refer to the procedure note for further details. The examination showed distant heart sounds with regular rhythm and soft nontender abdomen and diminished breathing sounds bilaterally. No edema was noted in the lower extremities October 15, 2023 The patient was seen and evaluated this morning. He continues to be intubated on mechanical ventilation. The chest x-ray was reviewed. He is off vasopressors but continues to be on norepinephrine which is in process to weaned from norepinephrine. He continues to be on heparin and Aggrastat. He is on dual antiplatelet therapy along with a statin. Hemodynamically he is overall slightly better. He has been maintaining normal sinus mechanism. From the cardiovascular standpoint of view I will continue the current medical regimen and switch the patient to oral amiodarone and DC lidocaine and stop Aggrastat at 18 hours. Apparently he cannot be on any beta-yazmin or FLORIN inhibitor at this point giving the low blood pressure. The examination is remarkable for regular rhythm with a distant heart sounds and diminished breathing sounds bilaterally and he does have a good Doppler signal in the left foot. October 16, 2023 The patient was seen and evaluated this morning. He continues to be on norepinephrine only at the small dose. His hemoglobin dropped to around 7 with ongoing to give the patient 1 unit of packed RBC hopefully we can wean him from norepinephrine and also hopefully it will improve the section of the arm on the Impella. Neurologically he is slightly better after the sedation was weaned. He continues to be on dual antiplatelet therapy. He continues to be on amiodarone. He continues to be on statin. Urine output has been marginal. I had a long discussion with the family in details about the condition and about the prognosis overall and they are in full understanding the poor prognosis overall. The examination is remarkable for regular rhythm with a distant heart sounds and diminished breathing sounds bilaterally and bilateral lower extremities edema noted. We had to stop the heparin because of gastrointestinal bleeding. The last episode of gastrointestinal bleeding was earlier this morn ing. 10/17/2023 Patient seen and examined at bedside this a.m. He is on norepinephrine 0.02. He is on Impella with P7 with 3 L output. MAP around 65 to 70 mmHg. Patient does not have any [place] catheter in place. Bedside echocardiogram showed an EF of 10 to 15% with normally positioned Impella. IVC is not dilated Inputs and outputs: Around 500 cc of urine last 24 hours with total of 700 cc positive fluid balance. Labs: Hb 8.2, creatinine 1.75, BUN 53, sodium 132. 10/18/2023 Patient was seen and examined at bedside this a.m. Yesterday by evening Impella was reduced to P4 and norepinephrine to 0.04. Overnight patient had low blood pressure. We attempted to wean off norepinephrine and start him on dobutamine which patient could not tolerate. Eventually dobutamine was discontinued and patient was put back on norepinephrine. Patient has been requiring P7 Impella with 3 L output. At present 4 PM 10/18/2023, patient is off norepinephrine, P7 Impella 3 L output. Janee cardiac index 1.9 L/min/m, Janee cardiac output 4.9 L/min, stroke-volume 50 ml. Patient's hemoglobin dropped from 8 to 7-6.3 today. Patient also had black watery stools. He required 1 unit of blood transfusion. His IV heparin was discontinued which was started for Impella. 10/19/23 Seen and examined at bedside this a.m. Today patient has been doing well. We have been able to wean him down to P5 and he is not requiring any norepinephrine. Patient has a good pulse pressure with SBP 120, diastolic blood pressure 50s. Patient's urine output has been 25 to 30 cc/h. He appears mildly volume overloaded. Will give him 1 dose of IV Lasix 40 mg. His renal function has been slightly declining with creatinine trending up Today arterial sat 95%, mixed venous sat 51.7%, hemoglobin 7.4, heart rate 86. Cardiac output 6.3 L/min, cardiac index 2.5 L/min/m. Cardiac index is improved from yesterday with lesser power requirement on Impella and no requirement of IV pressors. Echocardiogram shows an EF of 15 to 20% with well-placed Impella. This is slightly improved from 10 to 15% from presentation. 10/20/2023 Patient Impella was removed yesterday. Post Impella it was noticed that patient's left common [place] vein had thrombus for which aspiration thrombectomy was done but was not able to aspirate 100% of clot. The arteriotomy site and the thrombus was secured wire covered stent in the left common femoral artery. Distal pulses since then and bilateral lower extremity has been intact. Today patient has been on low-dose norepinephrine which has been discontinued. His blood pressure has been 100 over 60s with maps of 60 to 70 mmHg. Patient is still maintaining on 20 mics of propofol. Hemoglobin was again less than 7 with black tarry stools. Patient received 1 unit of blood transfusion. PEEP is down to 10 mmHg Urine output 1.2 L 10/21/2023 Patient is off pressors and MAP is maintaining around 70 mmHg. Patient is having good urine output of around 2 L. Patient is off sedation but is not waking up. He is having a mild gag reflex. He is not responsive to deep pain stimuli. He is not withdrawing to pain. Hemoglobin stable with no further GI bleeding. 10/22/2023 Blood pressure 121/77, heart rate 103 bpm, irregular appears to be atrial fibrillation on telemetry monitoring. Hemoglobin stable at 8.2. No further GI bleeding without the use of IV heparin. BUN 78, creatinine 2.28. Creatinine is noted trending down. Appropriate urine output of around 1.1 L last 24 hours. Patient is on Lasix 40 mg IV 3 times daily. Patient has been on minimal sedation with very weak gag reflex. Neurology team performed 2 EEGs which showed background slow activity suggestive of severe encephalopathy. Assessment Cardiogenic Shock, s/p Impella. Suspected anoxic Brain injury with slow background activity on EEG suggestive of encephalopathy Left common femoral vein thrombectomy with covered stent deployment for achi eving patent hemostasis after Impella removal. Ischemic cardiomyopathy with EF 10-15% Acute anemia GI bleeding STEMI Acute total occlusion of the left circumflex proximally Severe disease involving the right coronary artery Cardiac arrest as described above Multiple risk factors including hypertension and dyslipidemia History of seizure Plan Continue aspirin, Plavix, statin Continue amiodarone orally Give the patient 1 unit of packed RBC if Hb <7. Ideally patient should be managed on IV heparin but unable to do so due to GI bleeding and low hemoglobin. Responding well to IV diuretics. Continue Lasix 40 mg 3 times daily. Discontinue midodrine as it will cause increase in afterload which might not be tolerated by patient's heart rate due to cardiomyopathy and low EF. Patient is not a candidate for EGD and colonoscopy at present due to hemodynamic instability. Consult neurology for evaluation of anoxic brain injury and brainstem reflex evaluation. So far patient has demonstrated poor gag reflex. EEG is demonstrative of slow background activity. Considering patient's anemia, active GI bleeding, cardiogenic shock, ventilator dependent respiratory failure with 50% FiO2, patient's overall prognosis is very poor. I have had a family discussion and have explained the patient's current condition. Objective - Vital Signs Vital signs: Vital Signs Temp 98.9 F 10/22/23 08:00 Pulse 98 10/22/23 11:30 Resp 32 H 10/22/23 11:30 BP 124/72 10/22/23 11:30 Pulse Ox 91 L 10/22/23 11:30 FiO2 50 10/22/23 11:02 Intake & Output 10/21/23 10/22/23 10/22/23 18:59 06:59 18:59 Intake Total 894.069 793 292 Output Total 1585 1475 635 Balance -690.931 -682 -343 Weight 124.2 kg 124.6 kg Intake: IV 320 110 40 0.9 120 110 40 Meropenem 1 gm In Sodium 200 Chloride 0.9% 100 ml @ 33 .3 mls/hr IVPB Q8HR [place] Rx#:[id number] Intake, IV Titration 44.069 Amount fentaNYL (PF). 1,000 mcg 23.559 In Sodium Chloride 0.9% 80 ml @ 0.5 MCG/KG/HR 5. 865 mls/hr IV .Q17H4M [place] Rx#:[id number] propofoL 1,000 mg In 20.51 Empty Bag 1 bag @ 30 MCG/ KG/MIN 26.37 mls/hr IV . Q3H48M [place] Rx#:[id number] Tube Feeding 440 593 252 Other 90 90 Output: Urine 1585 1475 635 Other: Voiding Method Indwelling Catheter Indwelling Catheter ABP, PAP, CO, CI - Last Documented Arterial Blood Pressure 111/51 - Labs CBC & Chem 7: 10/22/23 06:45 10/22/23 06:45 Labs: Abnormal Lab Results - Last 24 Hours (Table) 10/21/23 10/21/23 10/21/23 Range/Units 12:47 16:13 20:06 WBC (3.8-10.6) k/uL RBC (4.30-5.90) m/uL Hgb (13.0-17.5) gm/dL Hct (39.0-53.0) % RDW (11.5-15.5) % Neutrophils # (Manual) (1.3-7.7) k/uL Metamyelocytes # (Man) (0) k/uL Myelocytes # (Manual) (0) k/uL Nucleated RBCs (0-0) /100 WBC ABG pH (7.35-7.45) ABG pCO2 (35-45) mmHg ABG HCO3 (21-25) mmol/L ABG Total CO2 (19-24) mmol/L Potassium (3.5-5.1) mmol/L BUN (9-20) mg/dL Creatinine (0.66-1.25) mg/dL Glucose (74-99) mg/dL POC Glucose (mg/dL) 181 H 144 H 169 H (70-110) mg/dL Calcium (8.4-10.2) mg/dL 10/21/23 10/22/23 10/22/23 Range/Units 23:58 00:01 05:18 WBC (3.8-10.6) k/uL RBC (4.30-5.90) m/uL Hgb (13.0-17.5) gm/dL Hct (39.0-53.0) % RDW (11.5-15.5) % Neutrophils # (Manual) (1.3-7.7) k/uL Metamyelocytes # (Man) (0) k/uL Myelocytes # (Manual) (0) k/uL Nucleated RBCs (0-0) /100 WBC ABG pH (7.35-7.45) ABG pCO2 (35-45) mmHg ABG HCO3 (21-25) mmol/L ABG Total CO2 (19-24) mmol/L Potassium (3.5-5.1) mmol/L BUN (9-20) mg/dL Creatinine (0.66-1.25) mg/dL Glucose (74-99) mg/dL POC Glucose (mg/dL) 151 H 147 H 192 H (70-110) mg/dL Calcium (8.4-10.2) mg/dL 10/22/23 10/22/23 10/22/23 Range/Units 06:25 06:45 06:45 WBC 15.7 H (3.8-10.6) k/uL RBC 2.65 L (4.30-5.90) m/uL Hgb 8.2 L (13.0-17.5) gm/dL Hct 24.5 L (39.0-53.0) % RDW 17.3 H (11.5-15.5) % Neutrophils # (Manual) 11.40 H (1.3-7.7) k/uL Metamyelocytes # (Man) 0.31 H (0) k/uL Myelocytes # (Manual) 0.16 H (0) k/uL Nucleated RBCs 1 H (0-0) /100 WBC ABG pH 7.52 H (7.35-7.45) ABG pCO2 33 L (35-45) mmHg ABG HCO3 26 H (21-25) mmol/L ABG Total CO2 27 H (19-24) mmol/L Potassium 3.1 L (3.5-5.1) mmol/L BUN 78 H (9-20) mg/dL Creatinine 2.28 H (0.66-1.25) mg/dL Glucose 157 H (74-99) mg/dL POC Glucose (mg/dL) (70-110) mg/dL Calcium 7.5 L (8.4-10.2) mg/dL 10/22/23 Range/Units 11:35 WBC (3.8-10.6) k/uL RBC (4.30-5.90) m/uL Hgb (13.0-17.5) gm/dL Hct (39.0-53.0) % RDW (11.5-15.5) % Neutrophils # (Manual) (1.3-7.7) k/uL Metamyelocytes # (Man) (0) k/uL Myelocytes # (Manual) (0) k/uL Nucleated RBCs (0-0) /100 WBC ABG pH (7.35-7.45) ABG pCO2 (35-45) mmHg ABG HCO3 (21-25) mmol/L ABG Total CO2 (19-24) mmol/L Potassium (3.5-5.1) mmol/L BUN (9-20) mg/dL Creatinine (0.66-1.25) mg/dL Glucose (74-99) mg/dL POC Glucose (mg/dL) 165 H (70-110) mg/dL Calcium (8.4-10.2) mg/dL
--- NOTE | 2023-10-22 11:48 | P.PN ---
Subjective Progress Note Date: 10/22/23 Principal diagnosis: Cardiac arrest and cardiogenic shock This is a 77-year-old male patient with a history of hypertension, seizure disorder, thyroid disorder, former smoker. On September 27, 2023 the patient had gotten up to go the bathroom and slumped onto the ground. He had been reportedly laying on the ground for several hours by family were attempting to get in helping him get up but he was unable to support himself. He also had trouble with urinary incontinence. EMS was called and he was brought here for evaluation. CT scan of the brain revealed no acute intracranial hemorrhage, midline shift or mass effect. EKG revealed sinus rhythm with no significant ST or T wave abnormalities. White count 14.9. Hemoglobin 12.9. Platelets 146. Sodium 126. Potassium 3.9. Bicarb 26. BUN 15. Creatinine 0.68. Glucose 152. AST 148. ALT 43. Creatinine kinase 2283. He did test positive for COVID-19 infection. His initial sodium level was 118. BUN of 24 and a creatinine of 1.26. He had been seen by nephrology, urology and infectious disease. A chest x-ray was done today September 30, 2023 that revealed an elevated right hemidiaphragm and we are consulted for the same. He was sent for a sniff test however the patient was unable to perform the appropriate maneuvers due to overall condition. He is seen on consultation on the selective care unit. He is currently resting in bed. Difficult to arouse but arousable. He is on a nonrebreather mask with O2 saturation of 90%. Currently afebrile. Hemodynamically stable. He has been initiated on Decadron. Antibiotics in the form of cefepime. Saline at 50 MLS per hour. Patient was evaluated today on 10/01/2023, more awake today, more responsive, seems to be more alert, and remains on a nonrebreather mask which I have recommended to transition to high flow nasal cannula. Patient did transition to 10 L high flow nasal cannula and O2 saturation was ranging between 92 up to 96% definitely better today compared to the last couple of days. Still planning to repeat his sniff test to evaluate for right hemidiaphragm paralysis. Procalcitonin level came back elevated at 0.43, patient remains on antibiotics for presumptive right lower lobe pneumonia. WBC count today 13.9 hemoglobin 13.0.Basic metabolic profile is relatively normal. Reevaluated today on 10/02/2023, patient is on 10 L high flow nasal cannula, doing better, breathing easier, O2 saturation is in the low 90s, patient continues to have diminished breath sounds at the right base, and I believe the patient has right hemidiaphragm paralysis with right lower lobe atelectasis, possible underlying pneumonia, but I feel clinically this is not the picture. At any rate the patient is supposed to have a sniff test tomorrow, may even have to consider a CT of the chest to evaluate the right lower lobe further. Based on the sniff test, further recommendations will follow. In the meantime patient is gradually improving, feeling better, breathing easier and definitely his neurological status is significantly improved now compared to how he was few days ago WBC count is 10.2 hemoglobin is 12.3, sodium is up to 130, potassium 3.1 renal profile is normal procalcitonin level on this patient was 0.43, hence he was empirically placed on antibiotics for presumptive right lower lobe pneumonia 10/16/2023, the patient remains critically ill intubated on the mechanical ventilator in the intensive care unit. He is postcardiac arrest and post emergent cardiac catheterization and a total of 5 stents were inserted and the patient was also given an Impella for hemodynamic support which is currently at p 7 augmentation with a flow of 3.2 L/min. The patient remains essentially unresponsive. He was given a brief sedation holiday yesterday to assess mentation. Immediately, the patient became restless, asynchronous with mechanical ventilator, and tachycardic and based on his underlying instability, propofol was restarted and which is currently running at 50 mcg/kg/min. He remains on assist-control mode of mechanical ventilation at the rate of 26, tidal volume of 450, FiO2 is at 60% with a PEEP of 15. Chest x-ray shows no major interval change. Blood gas from this morning shows a pH of 7.46 with a pCO2 of 44 and pO2 of 129. Hemodynamically, he remains unstable and hypotensive. Significant support still being provided to the Impella. Unable to tolerate lower levels of augmentation due to significant hypotension. While on P7, the patient is maintaining a mean arterial pressure of 70 and the patient is also on norepinephrine running at 0.02 mcg/kg/min. Cardiac rhythm is sinus tachycardia. No further episodes of ventricular arrhythmias. The patient was taken off the amiodarone and is also off the lidocaine drip. Urine output has dropped considerably and the patient also has developed an acute kidney injury. Creatinine is up to 1.9 with a BUN of 43. He is spiking temperature and his Tmax is 103.1. He remains on the same antibiotic coverage and he is currently on IV cefepime. Another complication is development of an upper GI bleed. Since yesterday afternoon, the patient had dark bloody output from his NG tube and a total amount has been in the order of 400 cc since yesterday. Based on his underlying GI bleed, IV heparin was discontinued. He remains on aspirin and Brilinta. He is off the Aggrastat for now. The hemoglobin has dropped down to 8.7. He remains in normal sinus rate of 75 cc an hour. Norepinephrine is running at 0.02 mcg/kg/min. IV heparin is discontinued. Rest of the blood work shows a WBC count of 37.6, hemoglobin 7.7 and a platelet count of 198. The serum bicarb is at 23 with a sodium level of 129. Blood sugar is at 188. Troponin peaked at 282. CPK was at 01/19/2023. He remains NPO. An echocardiogram was done yesterday and the patient was found to have significant impairment of the LV function with an ejection fraction of around 20%. Contacted the family, unable to get a hold of any family members. The family was supposed to arrive into the hospital to my understanding. Nevertheless, nobody showed up and we have placed multiple phone calls without getting any answers back. He is postcardiac arrest. Please refer to details of the cardiac intervention that was done as stated earlier. Patient was reevaluated today on 10/17/2023, remains in the ICU, intubated and mechanically ventilated. Patient is on assist-control rate of 26 tidal volume 450 FiO2 60% PEEP of 15 EGD showed a pO2 of 92 pCO2 43 pH of 7.48. No changes were made in his present ventilator settings. Patient continues to have Impella in place, it is at P7 augmentation, nonetheless, patient remains marginal at best. Ejection fraction is 20%. Patient is on propofol at 50 mcg/kg/min, he is also on IV fluid at 75 cc/h. Remains on Merrem and vancomycin, patient does not seem to be fully sedated, seems to be asynchronous with the ventilator today, hence I recommended increasing propofol up to 75 mcg/kg/min, and do Dilaudid as needed WBC count is 25.6 hemoglobin is 8.2. Fibrinogen is 521Basic metabolic profile is normal BUN is 53 creatinine 1.57. Chest x-ray showed patchy perihilar infiltrates, not much different from the chest x-ray prior. Looking back at the note, patient had his cardiac arrest on 10/14/2023, he was taken to the cardiac cath, underwent PTCA and stenting done. And he required intermittently pressor support/norepinephrine. Empirically the patient is on Merrem and vancomycin, patient has allergy to penicillin. Patient is being followed by infectious disease patient is off heparin. He is not requiring norepinephrine today, blood pressure is rather marginal. Output today is 3.3. CODE STATUS was changed to DNR CODE STATUS. The overall prognostic picture seems to be extremely poor Reevaluate 10/18/2023, patient remains in the ICU, intubated and mechanically ventilated. Patient is on assist-control rate of 26 tidal volume 450 which I increased up to 500, FiO2 60% PEEP of 15 ABG showed a pO2 of 90 pCO2 54 pH of 7.33 plan is to cut down the FiO2 to 50% and eventually address the PEEP. Patient continues to have the Impella in place, and it is at P7 augmentation. Patient continues to do poorly, he is requiring significant amount of drips including norepinephrine at 0.08 mcg/kg/min, Dobutrex at 2.5 mcg/kg/min, he is also on propofol 70 mcg/kg/min Fentanyl at 1 mcg/kg/h. Patient is spiking fever with Tmax of 102.5, continues to have leukocytosis with WBC count of 26.3. He has very poor and marginal urine output, patient remains on Flagyl vancomycin and Merrem. Yesterday I had a long discussion and updated family on his condition, and still not considering comfort care measures. Although the prognosis is extremely poor, and this was discussed with cardiology today. Patient dropped his hemoglobin today down to 6.3, patient will require blood transfusion, WBC count is 22.2. Platelets are 106 renal functioning is worsening BUN is 57 creatinine now is up to 2.18, and this is most likely acute tubular necrosis related to hypotension and cardiorenal in nature. Chest x-ray noted to have small area of focal infiltrate in the right midlung zone, endotracheal tube was noted to be high in the trachea and this was advanced down by 2 cm Patient was reevaluated today on 10/19/2023, remains in the ICU, intubated and mechanically ventilated, patient remains on assist-control rate of 26 tidal volume 500, FiO2 50%, and PEEP of 15, basically about the same, he is still very marginal at best, BG is marginal showed a pO2 of 52 pCO2 41 pH of 7.41, hence no changes made in the ventilator settings. Remains at P6 augmentation on his Impella. This is DNR at this point, but family is not willing to go to comfort care at this point yet. Still on norepinephrine at 0.06 mcg/kg/min still on Dobutrex at 5 mcg/kg/min, his off epinephrine, vasopressin at 0.04, he is on propofol and remains on fentanyl. Pressure today is slightly better, chest x- ray is basically the same, no major change, continues to have right hemidiaphragm elevation, and infiltrate in the right upper lobe area antibiotics are the same including Flagyl vancomycin and Merrem. BC count remains high 19.7 hemoglobin is 7.3. Continues to have intermittent episodes of GI bleeding remains on hold. Electrolytes are normal however his renal profile is worsening with a BUN of 69 creatinine 2.41. Overall I do not believe there is a significant improvement in this man's condition, I believe overall he is basically the same, and prognosis remains extremely poor and guarded Patient was reevaluated today on 10/20/2023, remains in the ICU, intubated and mechanically ventilated. His Impella was removed yesterday, patient required aspiration thrombectomy from the left external iliac artery using pnumbra device, done by Dr. Carreon yesterday, he also underwent stenting of the left external iliac artery. Today the patient is back to full code, family ananya rebolledo changed his CODE STATUS, and he remains full code for now. He is intubated on mechanical ventilation assist-control rate of 26 tidal volume 500 FiO2 50% and PEEP was 12 and I cut it down to 10 ABG showed a pO2 of 88 pCO2 40 pH of 7.39. Hemoglobin is low at 6.9, patient will receive a unit of packed RBCs today. Hemodynamics the patient is off norepinephrine, he is on propofol at 35 mcg/kg/min he is also on fentanyl at 1.5 mcg/kg/h. Today the patient will be given a sedation holiday, and I will try to address at least mental status. Antibiotics hughes remains on Merrem. Continues to have GI bleeding, and that is being followed by general surgery, however the patient is not a candidate for any intervention at this point considering his overall cardiac status. Nutrition hughes patient is on trickle feeds. WBC count today is 17.3 hemoglobin is 6.9. Platelets are 94,000. Basic metabolic profile is normal BUN however is 73 creatinine 2.40 slightly improved compared to yesterday. Sputum cultures have been negative, blood cultures have been negative from 10/14 chest x-ray continues to show right lower lobe atelectasis/consolidation and right hemidiaphragm elevation highly suspicious for right hemidiaphragm paralysis based on the chronicity of the problem Patient was reevaluated today on 10/21/2023, remains in the ICU, CODE STATUS has been changed to full code, patient is now on assist-control rate of 26 tidal volume 500 FiO2 50% PEEP was done and I cut it down to 8 ABG showed a pO2 of 98 pCO2 37 pH of 7.42. Patient is still sedated with propofol at 10 mcg/kg/min, fentanyl at 1 mcg/kg/h. IV fluid 0.9 normal saline at KVO, patient is receiving vital HP at 30 cc/h. Remains on Merrem and he remains on Lasix 40 mg IV push every 8 hours. Not much of a change noted in the last 24 hours, chest x-ray remains the same showing mostly right lower lobe atelectasis and right upper lobe infiltrate. Patient will be given today a mental status assessment, and a sedation holiday, he is not quite ready for weaning, but at least we will try to assess mental status if possible off sedation today WBC count is 14.4 hemoglobin is 8.2. Basic metabolic profile is normal BUN is 71 creatinine 2.60 Patient was reevaluated today on 10/22/2023, remains in the ICU, intubated and mechanically ventilated. Patient has been completely off sedation, and continues to have no responses, patient is not waking up, and he is not responding to deep painful stimuli. Neurology is on board. Apparently his EEG reflected severe toxic metabolic encephalopathy. Patient is on assist-control rate of 26 tidal volume 500 FiO2 50% PEEP of 8 ABG showed a pO2 of 83 pCO2 33 pH of 7.52. Remains on Lasix 40 mg IV push every 8 hours remains on Merrem his endotracheal tube seems to be a bit low hence will be pulling the tube about 2 cm. No changes were made in his vent settings, patient remains on vital HP at 50 cc/h. Obviously the patient does not ready for any form of weaning especially with his neurological status as bad as it is. Will continue the same management, and hopefully family carmen will decide on comfort care measures as the prognosis seems to be extremely poor and guarded if not, patient may have to be considered for trach and PEG next week . WBC count is 15.7 hemoglobin 8.2 e lectrolytes were reviewed potassium is 3.1 BUN is 78 creatinine 2.28, slightly improved compared to yesterday. Objective - Vital Signs Vital signs: Vital Signs Temp 98.9 F 10/22/23 08:00 Pulse 98 10/22/23 11:30 Resp 32 H 10/22/23 11:30 BP 124/72 10/22/23 11:30 Pulse Ox 91 L 10/22/23 11:30 FiO2 50 10/22/23 11:02 Intake & Output 10/21/23 10/22/23 10/22/23 18:59 06:59 18:59 Intake Total 894.069 793 292 Output Total 1585 1475 635 Balance -690.931 -682 -343 Weight 124.2 kg 124.6 kg Intake: IV 320 110 40 0.9 120 110 40 Meropenem 1 gm In Sodium 200 Chloride 0.9% 100 ml @ 33 .3 mls/hr IVPB Q8HR [place] Rx#:[id number] Intake, IV Titration 44.069 Amount fentaNYL (PF). 1,000 mcg 23.559 In Sodium Chloride 0.9% 80 ml @ 0.5 MCG/KG/HR 5. 865 mls/hr IV .Q17H4M [place] Rx#:[id number] propofoL 1,000 mg In 20.51 Empty Bag 1 bag @ 30 MCG/ KG/MIN 26.37 mls/hr IV . Q3H48M [place] Rx#:[id number] Tube Feeding 440 593 252 Other 90 90 Output: Urine 1585 1475 635 Other: Voiding Method Indwelling Catheter Indwelling Catheter ABP, PAP, CO, CI - Last Documented Arterial Blood Pressure 111/51 - Exam General: Reveals 77-year-old white male obese, remains intubated, mechanically ventilated and sedated. Patient is unresponsive to any stimuli. Head: Atraumatic normocephalic. Skin: No rashes. Eye: Pupils are equal, round and reactive to light,; there is normal conjunctiva bilaterally. Ears, nose, mouth and throat: There are moist mucous membranes and no oral lesions. Tracheal tube is intact, orogastric tube is intact. Neck: The neck is supple, there is no tenderness or JVD. Cardiovascular: Normal S1-S2, no gallop, 2/6 systolic murmur in the left lower sternal border Respiratory: Distant breath sound bilaterally no crackles rhonchi or wheezes Gastrointestinal: Obese, soft, nontender, no megaly, no rebound, no guarding. Musculoskeletal: No deformities noted, extremities showed no clubbing, 3+ bipedal edema, no cyanosis Neurological: Of sedation, patient has no neurological responses. Psychiatric: Could not assess - Labs CBC & Chem 7: 10/22/23 06:45 10/22/23 06:45 Labs: Abnormal Lab Results - Last 24 Hours (Table) 10/21/23 10/21/23 10/21/23 Range/Units 12:47 16:13 20:06 WBC (3.8-10.6) k/uL RBC (4.30-5.90) m/uL Hgb (13.0-17.5) gm/dL Hct (39.0-53.0) % RDW (11.5-15.5) % Neutrophils # (Manual) (1.3-7.7) k/uL Metamyelocytes # (Man) (0) k/uL Myelocytes # (Manual) (0) k/uL Nucleated RBCs (0-0) /100 WBC ABG pH (7.35-7.45) ABG pCO2 (35-45) mmHg ABG HCO3 (21-25) mmol/L ABG Total CO2 (19-24) mmol/L Potassium (3.5-5.1) mmol/L BUN (9-20) mg/dL Creatinine (0.66-1.25) mg/dL Glucose (74-99) mg/dL POC Glucose (mg/dL) 181 H 144 H 169 H (70-110) mg/dL Calcium (8.4-10.2) mg/dL 10/21/23 10/22/23 10/22/23 Range/Units 23:58 00:01 05:18 WBC (3.8-10.6) k/uL RBC (4.30-5.90) m/uL Hgb (13.0-17.5) gm/dL Hct (39.0-53.0) % RDW (11.5-15.5) % Neutrophils # (Manual) (1.3-7.7) k/uL Metamyelocytes # (Man) (0) k/uL Myelocytes # (Manual) (0) k/uL Nucleated RBCs (0-0) /100 WBC ABG pH (7.35-7.45) ABG pCO2 (35-45) mmHg ABG HCO3 (21-25) mmol/L ABG Total CO2 (19-24) mmol/L Potassium (3.5-5.1) mmol/L BUN (9-20) mg/dL Creatinine (0.66-1.25) mg/dL Glucose (74-99) mg/dL POC Glucose (mg/dL) 151 H 147 H 192 H (70-110) mg/dL Calcium (8.4-10.2) mg/dL 10/22/23 10/22/23 10/22/23 Range/Units 06:25 06:45 06:45 WBC 15.7 H (3.8-10.6) k/uL RBC 2.65 L (4.30-5.90) m/uL Hgb 8.2 L (13.0-17.5) gm/dL Hct 24.5 L (39.0-53.0) % RDW 17.3 H (11.5-15.5) % Neutrophils # (Manual) 11.40 H (1.3-7.7) k/uL Metamyelocytes # (Man) 0.31 H (0) k/uL Myelocytes # (Manual) 0.16 H (0) k/uL Nucleated RBCs 1 H (0-0) /100 WBC ABG pH 7.52 H (7.35-7.45) ABG pCO2 33 L (35-45) mmHg ABG HCO3 26 H (21-25) mmol/L ABG Total CO2 27 H (19-24) mmol/L Potassium 3.1 L (3.5-5.1) mmol/L BUN 78 H (9-20) mg/dL Creatinine 2.28 H (0.66-1.25) mg/dL Glucose 157 H (74-99) mg/dL POC Glucose (mg/dL) (70-110) mg/dL Calcium 7.5 L (8.4-10.2) mg/dL 10/22/23 Range/Units 11:35 WBC (3.8-10.6) k/uL RBC (4.30-5.90) m/uL Hgb (13.0-17.5) gm/dL Hct (39.0-53.0) % RDW (11.5-15.5) % Neutrophils # (Manual) (1.3-7.7) k/uL Metamyelocytes # (Man) (0) k/uL Myelocytes # (Manual) (0) k/uL Nucleated RBCs (0-0) /100 WBC ABG pH (7.35-7.45) ABG pCO2 (35-45) mmHg ABG HCO3 (21-25) mmol/L ABG Total CO2 (19-24) mmol/L Potassium (3.5-5.1) mmol/L BUN (9-20) mg/dL Creatinine (0.66-1.25) mg/dL Glucose (74-99) mg/dL POC Glucose (mg/dL) 165 H (70-110) mg/dL Calcium (8.4-10.2) mg/dL Assessment and Plan Assessment: Impression: Cardiac arrest with ventricular tachycardia and ventricular fibrillation, status post cardiac catheterization for acute lateral ST segment elevation myocardial infarction and the patient underwent emergent cardiac catheterization. The pat ient underwent a complicated coronary intervention requiring Impella for hemodynamic support, stenting of the left main, circumflex, proximal and mid RCA. A total of 5 stents were inserted. Acute hypoxic respiratory failure secondary to cardiac arrest Ventricular tachycardia/VF, postacute TX Upper GI bleeding related to various antiplatelet agents and anticoagulation patient is now off heparin he is on aspirin and Plavix Acute blood loss anemia requiring transfusion Acute kidney injury, could be cardiorenal in nature. There are cardiomyopathy and LV dysfunction. Acute febrile illness, exact etiology is not clear patient is empirically on antibiotics chest x-ray is showing a limited infiltrate in the right midlung. History of COVID-19 pneumonia, recovering Right hemidiaphragm elevation possible paralysis History of seizure disorder History of hypothyroidism History of hypertension Ex-smoker Severe LV dysfunction with ejection fraction of 20% Status post removal of his Impella device and required aspiration thrombectomy from the left external iliac on 10/19/2023 Suspect severe anoxic brain injury, severe toxic metabolic encephalopathy Recommendation: Continue to hold all sedation and narcotics. Continue ventilatory support, considering mental status not ready for any weaning Continue nutritional support/enteral feeding Continue aspirin and Brilinta Continue antibiotics Continue diuretics Daily assessment of mental status. And neurology is addressing his abnormal EEG Patient remains critically ill, prognosis is extremely poor Will continue to follow. Critical care time is over 30 minutes Time with Patient: Greater than 30
--- NOTE | 2023-10-22 12:20 | P.PN ---
Subjective patient is a 77-year-old gentleman past medical history significant for hypothyroidism, hypertension who presented to the ER for generalized weakness and fall. Patient was brought in by family members, apparently patient was trying to use the restroom when he lost all his strength and slumped to the ground. There was no complaint of any loss of consciousness. No complaint of weakness of any extremity. Family did not notice any slurred speech or facial droop. There was no complaint of fever or chills. No complaint of nausea, vomiting, abdominal pain. Patient's family tried to help him to get up but they were unable to lift him. They called EMS and they brought him to ER. Initial lab work done in the ER showed WBC 10.5, hemoglobin 15.2, platelet count 165, sodium 118, potassium 4.1, BUN 24, creatinine 1.26, plasma lactate 4.1, tro ponin 0.012 UA negative for any infection EKG done in the ER showed heart rate of 75, no ST segment elevation or depression seen, no T-wave inversions seen. Chest x-ray done in the ER no acute cardiopulmonary process CT head done showed no acute intracranial process Patient admitted to internal medicine service 09/29. Patient seen and examined. COVID-19 came back positive. Currently on 4 L of oxygen. Sodium this morning is 121. Still complain lethargy and weakness. Patient also diagnosed with COVID 09/30. Patient seen and examined. Blood work done this morning showed WBC 14.9, hemoglobin 12.9, platelet count 146, sodium 126, potassium 3.9, BUN 15, creatinine 0.68. States he feels much better. Shortness of breath is improved. 10/01. Patient seen and examined. Still on 15 L of oxygen via nonrebreather. States he feels better. Sodium level improved to 132, potassium 3.3, BUN 18, creatinine 0.65. Lethargy has improved. 10/02. Patient seen and examined. Currently on 8 L of oxygen via high flow nasal cannula. States he feels much better, breathing is improved, pulmonology recommended sniff test to look for right diaphragm paralysis 10/03. Patient seen and examined. Continues to be on 15 L of oxygen. Patient is not lethargic, states gets short of breath on exertion. Denies any nausea or vomiting 10/04/2023 Patient seen and evaluated in follow-up today continues to be dyspneic maintained on high flow oxygen is being transferred to [facility]. Per nursing staff he continues to remove his nasal cannula as well as nonrebreather and respiratory following recommending i continuing this for a few hours. Patient has noted to be COVID-positive. Sodium is slightly low at 132 potassium was 3.3 yesterday and replaced awaiting follow-up labs. Patient with prolonged hospitalization and continued weakness will likely need ECF once stabilized. 10/05/2023 Patient is seen in follow-up this morning continues on Airvo with maximum oxygen at 60/90 maintaining oxygen saturations in the 88 percentile range. Patient reports having worsening shortness of breath although appears somewhat confused at times. Discussed CODE STATUS with the patient and he wishes to remain full code. Patient is agreeable to mechanical ventilation if required. Patient continues to remove his oxygen from his face desats very quickly. Will get a chest x-ray and continue to monitor closely. Pulmonary and infectious disease following and patient is continued on cefepime with concerns of pneumonia. Patient is currently afebrile and denies chest pain or shortness of breath. Patient reports he is eating although not much of an appetite. 10/06/2023 Patient is seen in follow-up today was transferred to the ICU for respiratory decline per nursing staff as patient continued to have respiratory distress and low oxygen saturations becoming more hypoxic and confused. Patient is continued on Airvo max 60/90 with continued intermittent nonrebreather use. Patient is continued on steroids along with inhalers and pulmonary is following closely. Patient is afebrile with no reported chest pain or shortness of breath. Patient reports to tolerating diet although appears not to be eating very much at all. 10/07/2023 Patient is seen and evaluated in follow-up today continues in the ICU on high flow Airvo 60 L / 90% with oxygen saturations in the low 90s. On exam patient was found to have Airvo out of his nostrils and using nonrebreather and oxygen saturation was 93%. Patient is maintained on antibiotics with infectious disease following closely along with pulmonary shovel operator. CODE STATUS was addressed once again and patient wishes to remain full code. Wean FiO2 as t olerated. Encouraged oral intake. Patient to be evaluated by physical therapy once respiratory status improved and will need rehab. 10/09/2023 Patient lying in bed, mildly tachypneic with no chest pain He remains on Airvo 60 L/min Vital stable Remains on dexamethasone and Pepcid Resume of the care of the patient 10/12/2023 Patient with Covid infection and possible right lower lobe pneumonia finish her antibiotics. He does not need antiviral therapy but there is evidence of oral thrush and discovered covered with Diflucan and received nystatin as well. His leukocytosis stable about 18k, no fever. Patient also with fluid overload and hyponatremia sodium 1:30 status post 1 Samsca today, also patient is on IV Lasix 40 mg twice daily Patient currently is oxygen via nasal cannula saturating 88% which is improved from previous, airvo oxygen was stopped 10/13/2023 Patient is clinically stable. He is awake and alert not in distress his breathing is improving and currently he is on 4-5 L/m of oxygen which is a stable Has good air entry bilaterally. I discussed the case with pulmonary team and patient might be considered for discharge from their perspective is also on Diflucan and WBCs 18,000 Status post Samsca and sodium stable at 1:30, low potassium replaced I discussed the case with older adult social work specialist and patient does not need a bone isolation for his Covid. However he is prior authorization Possible discharge in 24-48 hours 10/14/23 Patient mentation is at baseline No new complaints, no chest pain no significant dyspnea He remains on 5 L oxygen via nasal cannula WBC improved down to 12,000, hemoglobin 12, sodium slightly low at 127, glucose controlled. Ejection fraction 60-65% Remains on Diflucan. Today IV Lasix switched to by mouth 40 mg twice daily Discussed with family caseworker, still pending placement. Still family having contacted staff. 10/15/2023 Patient condition deteriorated and patient developed CODE BLUE called for him and he underwent CPR per protocol with downtime estimated about 7 to 10 minutes He was taken emergently to the [facility] and a total of 5 stents placed into his coronary arteries. Postprocedure patient was taken to the ICU intubated and s edated Also he was started on Impella for hemodynamic support He was started also on aspirin, Brilinta and heparin drip Also patient developed leukocytosis up to 1 31,000 hemoglobin stable around 12. Sodium 129 Creatinine stable at 1.1 10/16/2023 Patient remains in the ICU sedated and intubated Today he lost about 400 to 500 mL of dark-colored fluid through his NG tube so heparin drip was stopped. While patient kept on aspirin and Brilinta History requires Impella in place with cardiology and critical care team following closely He remains on intubated on mechanical ventilation for respiratory support He has significant leukocytosis up to 33,000 and is currently covered with IV vancomycin and meropenem. He has been spiking fever today Also his creatinine jumped up to 1.9 and he developed acute kidney injury His condition remains critical Case discussed with staff and critical care team Patient remains in the ICU intubated and sedated, and he has been monitoring closely. They tried to wean him yesterday and he got agitated. His currently on sedative and propofol His ejection fraction is low indicating cardiogenic shock, EF is around 10 to 20% compared to 66% on the previous days. This is after the STEMI and cardiac arrest. Patient currently on Impella and small dose of Levophed with cardiology and critical care following closely. Stool wean him off Impella if that works then possibly stop Levophed and later on switched Impella to dobutamine this works. Patient does not need heparin drip and he is continued on a dual antiplatelet therapy and statin Also midodrine was added today. His condition remains critical 10/18/2023 pt condition is still critical and his response to treatment is guarded pt is still intubated , requring peep of 12 pt is hypotensive could not tolerate weaning pressores down still on aimpalla his wbc is 20k, hb dropped down to 6.3 and after 2 units of blood transfusion came up to 7.7 still on asprin and brillinta, on iv protnox bid and pepcid, on iv vancomycin, meropenem family may consider more palliative management management discussed with staff 10/19/2023 pt remains intubated and sedated on mechanical ventilation with pulmonary and critical care team are following and managing vent very closely he is still on high peep at 15 he is not suitable for weaning attempts yet he is having maroon stool with gi bleed , so heparin drip on hold also on protonix , surgery team recommend colonoscopy when hemodynamically stable his pressors were stopped and impalla went down to p6 10/20/2023 Patient remains intubated in the critical care unit Yesterday the Impella was removed. Still requiring small dose of pressors CT of the brain is negative for acute process EEG showing severe metabolic encephalopathy however there is some electrical activity suggestive of tendency toward seizure but no seizure activity. Keppra 500 mg twice daily was added. Patient also on meropenem. IV Lasix 40 mg every 8 hours. 10/21/2023 Patient remains intubated sedated with Critical care team following and monitoring closely and help in vent management He was placed off sedation today however there is no change in his mental stat us. No much response. Neurology on the case and is repeating EEG this morning. Patient currently he is off heparin drip continued on dual antiplatelet therapy with aspirin and Brilinta Also he is getting meropenem for antibiotic and Diflucan. On Keppra and midodrine I discussed the case with Dr. Toribio from cardiology today Patient remains intubated in the ICU. With pulmonary/critical care team following closely. He is off sedation today and from yesterday but does not show signs of waking up or communicating. Patient is less tachycardic but still tachypneic. He is afebrile. Blood pressure actually improved to 133/69 He is on IV Lasix 40 mg every 8 hours He is on Keppra 500 mg increased today to 750 mg. Continue with dual antiplatelet therapy Objective - Vital Signs Vital signs: Vital Signs Temp 98.1 F 10/22/23 12:00 Pulse 92 10/22/23 12:00 Resp 34 H 10/22/23 12:00 BP 133/69 10/22/23 12:00 Pulse Ox 96 10/22/23 12:00 FiO2 50 10/22/23 12:00 Intake & Output 10/21/23 10/22/23 10/22/23 18:59 06:59 18:59 Intake Total 894.069 793 537.9 Output Total 1585 1475 905 Balance -690.931 -682 -367.1 Weight 124.2 kg 124.6 kg Intake: IV 320 110 159.9 0.9 120 110 60 Meropenem 1 gm In Sodium 200 99.9 Chloride 0.9% 100 ml @ 33 .3 mls/hr IVPB Q8HR [facility] Rx#:[id number] Intake, IV Titration 44.069 Amount fentaNYL (PF). 1,000 mcg 23.559 In Sodium Chloride 0.9% 80 ml @ 0.5 MCG/KG/HR 5. 865 mls/hr IV .Q17H4M [place] Rx#:[id number] propofoL 1,000 mg In 20.51 Empty Bag 1 bag @ 30 MCG/ KG/MIN 26.37 mls/hr IV . Q3H48M [facility] Rx#:[id number] Tube Feeding 440 593 378 Other 90 90 Output: Urine 1585 1475 905 Other: Voiding Method Indwelling Catheter Indwelling Catheter Indwelling Catheter ABP, PAP, CO, CI - Last Documented Arterial Blood Pressure 111/51 - Exam GENERAL: The patient is sedated and intubated HEENT: Pupils are round and equally reacting to light. EOMI. No scleral icterus. No conjunctival pallor. Normocephalic, atraumatic. No pharyngeal erythema. No thyromegaly. CARDIOVASCULAR: S1 and S2 present. No murmurs, rubs, or gallops. PULMONARY: Chest is clear to auscultation, no wheezing , no crackles. ABDOMEN: Soft, nontender, nondistended, normoactive bowel sounds. No palpable organomegaly. MUSCULOSKELETAL: No joint swelling or deformity. EXTREMITIES: No cyanosis, clubbing, or pedal edema. NEUROLOGICAL: Gross neurological examination did not reveal any focal deficits. SKIN: No rashes. no petechiae. - Labs CBC & Chem 7: 10/22/23 06:45 10/22/23 06:45 Labs: Abnormal Lab Results - Last 24 Hours (Table) 10/21/23 10/21/23 10/21/23 Range/Units 12:47 16:13 20:06 WBC (3.8-10.6) k/uL RBC (4.30-5.90) m/uL Hgb (13.0-17.5) gm/dL Hct (39.0-53.0) % RDW (11.5-15.5) % Neutrophils # (Manual) (1.3-7.7) k/uL Metamyelocytes # (Man) (0) k/uL Myelocytes # (Manual) (0) k/uL Nucleated RBCs (0-0) /100 WBC ABG pH (7.35-7.45) ABG pCO2 (35-45) mmHg ABG HCO3 (21-25) mmol/L ABG Total CO2 (19-24) mmol/L Potassium (3.5-5.1) mmol/L BUN (9-20) mg/dL Creatinine (0.66-1.25) mg/dL Glucose (74-99) mg/dL POC Glucose (mg/dL) 181 H 144 H 169 H (70-110) mg/dL Calcium (8.4-10.2) mg/dL 10/21/23 10/22/23 10/22/23 Range/Units 23:58 00:01 05:18 WBC (3.8-10.6) k/uL RBC (4.30-5.90) m/uL Hgb (13.0-17.5) gm/dL Hct (39.0-53.0) % RDW (11.5-15.5) % Neutrophils # (Manual) (1.3-7.7) k/uL Metamyelocytes # (Man) (0) k/uL Myelocytes # (Manual) (0) k/uL Nucleated RBCs (0-0) /100 WBC ABG pH (7.35-7.45) ABG pCO2 (35-45) mmHg ABG HCO3 (21-25) mmol/L ABG Total CO2 (19-24) mmol/L Potassium (3.5-5.1) mmol/L BUN (9-20) mg/dL Creatinine (0.66-1.25) mg/dL Glucose (74-99) mg/dL POC Glucose (mg/dL) 151 H 147 H 192 H (70-110) mg/dL Calcium (8.4-10.2) mg/dL 10/22/23 10/22/23 10/22/23 Range/Units 06:25 06:45 06:45 WBC 15.7 H (3.8-10.6) k/uL RBC 2.65 L (4.30-5.90) m/uL Hgb 8.2 L (13.0-17.5) gm/dL Hct 24.5 L (39.0-53.0) % RDW 17.3 H (11.5-15.5) % Neutrophils # (Manual) 11.40 H (1.3-7.7) k/uL Metamyelocytes # (Man) 0.31 H (0) k/uL Myelocytes # (Manual) 0.16 H (0) k/uL Nucleated RBCs 1 H (0-0) /100 WBC ABG pH 7.52 H (7.35-7.45) ABG pCO2 33 L (35-45) mmHg ABG HCO3 26 H (21-25) mmol/L ABG Total CO2 27 H (19-24) mmol/L Potassium 3.1 L (3.5-5.1) mmol/L BUN 78 H (9-20) mg/dL Creatinine 2.28 H (0.66-1.25) mg/dL Glucose 157 H (74-99) mg/dL POC Glucose (mg/dL) (70-110) mg/dL Calcium 7.5 L (8.4-10.2) mg/dL 10/22/23 Range/Units 11:35 WBC (3.8-10.6) k/uL RBC (4.30-5.90) m/uL Hgb (13.0-17.5) gm/dL Hct (39.0-53.0) % RDW (11.5-15.5) % Neutrophils # (Manual) (1.3-7.7) k/uL Metamyelocytes # (Man) (0) k/uL Myelocytes # (Manual) (0) k/uL Nucleated RBCs (0-0) /100 WBC ABG pH (7.35-7.45) ABG pCO2 (35-45) mmHg ABG HCO3 (21-25) mmol/L ABG Total CO2 (19-24) mmol/L Potassium (3.5-5.1) mmol/L BUN (9-20) mg/dL Creatinine (0.66-1.25) mg/dL Glucose (74-99) mg/dL POC Glucose (mg/dL) 165 H (70-110) mg/dL Calcium (8.4-10.2) mg/dL Assessment and Plan Assessment: Emergent cardiac cath and 5 stents placement Cardiogenic shock and possible septic shock secondary to above Acute hypoxic respiratory failure requiring intubation and mechanical ventilation acute GI Bleed requring blood transufion Acute kidney injury Hyponatremia secondary to poor oral intake, COVID-19 Acute hypoxic respiratory failure secondary to COVID-19, now requiring oxygen via nasal cannula. Altered mental status, with toxic metabolic encephalopathy likely secondary to hypoxia as patient continues to remove oxygen mask from his face Generalized weakness Rhabdomyolysis. Improved Fall Urinary retention requiring indwelling Rosales catheter Hypothyroidism Hypertension Obesity with a BMI of 35.0 acute STEMI s/p Plan: Patient is continued on mechanical ventilation. Undergoing sedation holiday by pulmonary team Continue with aspirin and Brilinta heparin drip is discontinued Cardiology consult following closely Pulmonary/critical care team following closely Patient s/p Impella with cardiology team Antibiotics were adjusted into meropenem and IV vancomycin by ID team Continue with insulin coverage Summer consult is on the case including ID team, pulmonary and nephrology Labs and medication were reviewed.. Continue same treatment. Continue with symptomatic treatment. Resume home medication. Monitor labs and vitals. DVT and GI prophylaxis. Further recommendations as per clinical course of the patient DVT prophylaxis: Subcutaneous Lovenox GI Prophylaxis: Pepcid PT/OT: heather prognosis is guarded family consider more palliative management
--- NOTE | 2023-10-22 13:31 | P.PN ---
Subjective Progress Note Date: 10/22/23 Principal diagnosis: Reason for follow-up is COVID-19 and pneumonia Patient is a 77-year-old male with a past medical history significant for hypertension seizure disorder hypothyroidism patient has been brought into the hospital for evaluation of generalized weakness patient was noticed to be on the bathroom floor after apparently patient fell down, patient did tested positive for COVID-19, initial chest x-ray reported negative.Patient did have significant change in his clinical condition and did have a cardiac arrest on 10/14/2023 the patient was taken to the [facility] and did have PTCA and stenting x 5 subsequently patient has been admitted to ICU. On today's evaluation that is 10/22/2023, patient is afebrile today, patient remains to be intubated on the vent FiO2 stable at 50% no significant purulent secretion through the ET patient is currently not requiring any pressor support per the nursing staff no diarrhea or any other changes reported by the nursing staff Patient white count is 15.7, creatinine is 2.28 cultures so far negative Objective - Vital Signs Vital signs: Vital Signs Temp 98.1 F 10/22/23 12:00 Pulse 92 10/22/23 12:00 Resp 34 H 10/22/23 12:00 BP 133/69 10/22/23 12:00 Pulse Ox 96 10/22/23 12:00 FiO2 50 10/22/23 12:00 Intake & Output 10/21/23 10/22/23 10/22/23 18:59 06:59 18:59 Intake Total 894.069 793 537.9 Output Total 1585 1475 905 Balance -690.931 -682 -367.1 Weight 124.2 kg 124.6 kg Intake: IV 320 110 159.9 0.9 120 110 60 Meropenem 1 gm In Sodium 200 99.9 Chloride 0.9% 100 ml @ 33 .3 mls/hr IVPB Q8HR [facility] Rx#:[id number] Intake, IV Titration 44.069 Amount fentaNYL (PF). 1,000 mcg 23.559 In Sodium Chloride 0.9% 80 ml @ 0.5 MCG/KG/HR 5. 865 mls/hr IV .Q17H4M [facility] Rx#:[id number] propofoL 1,000 mg In 20.51 Empty Bag 1 bag @ 30 MCG/ KG/MIN 26.37 mls/hr IV . Q3H48M [facility] Rx#:[id number] Tube Feeding 440 593 378 Other 90 90 Output: Urine 1585 1475 905 Other: Voiding Method Indwelling Catheter Indwelling Catheter Indwelling Catheter ABP, PAP, CO, CI - Last Documented Arterial Blood Pressure 111/51 - Exam GENERAL DESCRIPTION: An elderly male intubated on the vent RESPIRATORY SYSTEM: Unlabored breathing , decreased breath sounds at bases HEART: S1 S2 regular rate and rhythm , ABDOMEN: Soft , no tenderness EXTREMITIES: No edema feet - Labs CBC & Chem 7: 10/22/23 06:45 10/22/23 06:45 Labs: Abnormal Lab Results - Last 24 Hours (Table) 10/21/23 10/21/23 10/21/23 Range/Units 16:13 20:06 23:58 WBC (3.8-10.6) k/uL RBC (4.30-5.90) m/uL Hgb (13.0-17.5) gm/dL Hct (39.0-53.0) % RDW (11.5-15.5) % Neutrophils # (Manual) (1.3-7.7) k/uL Metamyelocytes # (Man) (0) k/uL Myelocytes # (Manual) (0) k/uL Nucleated RBCs (0-0) /100 WBC ABG pH (7.35-7.45) ABG pCO2 (35-45) mmHg ABG HCO3 (21-25) mmol/L ABG Total CO2 (19-24) mmol/L Potassium (3.5-5.1) mmol/L BUN (9-20) mg/dL Creatinine (0.66-1.25) mg/dL Glucose (74-99) mg/dL POC Glucose (mg/dL) 144 H 169 H 151 H (70-110) mg/dL Calcium (8.4-10.2) mg/dL 10/22/23 10/22/23 10/22/23 Range/Units 00:01 05:18 06:25 WBC (3.8-10.6) k/uL RBC (4.30-5.90) m/uL Hgb (13.0-17.5) gm/dL Hct (39.0-53.0) % RDW (11.5-15.5) % Neutrophils # (Manual) (1.3-7.7) k/uL Metamyelocytes # (Man) (0) k/uL Myelocytes # (Manual) (0) k/uL Nucleated RBCs (0-0) /100 WBC ABG pH 7.52 H (7.35-7.45) ABG pCO2 33 L (35-45) mmHg ABG HCO3 26 H (21-25) mmol/L ABG Total CO2 27 H (19-24) mmol/L Potassium (3.5-5.1) mmol/L BUN (9-20) mg/dL Creatinine (0.66-1.25) mg/dL Glucose (74-99) mg/dL POC Glucose (mg/dL) 147 H 192 H (70-110) mg/dL Calcium (8.4-10.2) mg/dL 10/22/23 10/22/23 10/22/23 Range/Units 06:45 06:45 11:35 WBC 15.7 H (3.8-10.6) k/uL RBC 2.65 L (4.30-5.90) m/uL Hgb 8.2 L (13.0-17.5) gm/dL Hct 24.5 L (39.0-53.0) % RDW 17.3 H (11.5-15.5) % Neutrophils # (Manual) 11.40 H (1.3-7.7) k/uL Metamyelocytes # (Man) 0.31 H (0) k/uL Myelocytes # (Manual) 0.16 H (0) k/uL Nucleated RBCs 1 H (0-0) /100 WBC ABG pH (7.35-7.45) ABG pCO2 (35-45) mmHg ABG HCO3 (21-25) mmol/L ABG Total CO2 (19-24) mmol/L Potassium 3.1 L (3.5-5.1) mmol/L BUN 78 H (9-20) mg/dL Creatinine 2.28 H (0.66-1.25) mg/dL Glucose 157 H (74-99) mg/dL POC Glucose (mg/dL) 165 H (70-110) mg/dL Calcium 7.5 L (8.4-10.2) mg/dL Assessment and Plan (1) COVID-19 Current Visit: Yes Status: Acute Code(s): U07.1 - COVID-19 SNOMED Code(s): 843329128 (2) Sepsis Current Visit: Yes Status: Acute Code(s): A41.9 - SEPSIS, UNSPECIFIED ORGANISM SNOMED Code(s): 75269678 (3) Pneumonia Current Visit: Yes Status: Acute Code(s): J18.9 - PNEUMONIA, UNSPECIFIED ORGANISM SNOMED Code(s): 118924907 (4) Penicillin allergy Current Visit: Yes Status: Acute Code(s): Z88.0 - ALLERGY STATUS TO PENICILLIN SNOMED Code(s): 91188709 (5) Thrush, oral Current Visit: Yes Status: Acute Code(s): B37.0 - CANDIDAL STOMATITIS SNOMED Code(s): 93030641 Plan: 1patient did have significant changes in clinical condition he did have a cardiac arrest on 10/14/2023 Patient Was Taken to the Regional Coord[facility] status post PTCA and stenting x 5 patient did have a new fever and is requiring pressor support 2- blood cultures and sputum for Gram stain culture are so far negative 3-patient did have resolution of his fever white count is not significantly elevated, patient to continue with the meropenem and monitor clinical course closely Family at the bedside questions were answered Dictation was produced using [employer] dictation software. please excuse any g rammatical, word or spelling errors. Time with Patient: Less than 30
--- NOTE | 2023-10-22 13:36 | P.PN ---
Subjective Progress Note Date: 10/22/23 Principal diagnosis: Patient had no overnight events. Discussed w/ nursing staff, patient is stable Objective - Vital Signs Vital signs: Vital Signs Temp 98.1 F 10/22/23 12:00 Pulse 92 10/22/23 12:00 Resp 34 H 10/22/23 12:00 BP 133/69 10/22/23 12:00 Pulse Ox 96 10/22/23 12:00 FiO2 50 10/22/23 12:00 Intake & Output 10/21/23 10/22/23 10/22/23 18:59 06:59 18:59 Intake Total 894.069 793 537.9 Output Total 1585 1475 905 Balance -690.931 -682 -367.1 Weight 124.2 kg 124.6 kg Intake: IV 320 110 159.9 0.9 120 110 60 Meropenem 1 gm In Sodium 200 99.9 Chloride 0.9% 100 ml @ 33 .3 mls/hr IVPB Q8HR [place] Rx#:[id number] Intake, IV Titration 44.069 Amount fentaNYL (PF). 1,000 mcg 23.559 In Sodium Chloride 0.9% 80 ml @ 0.5 MCG/KG/HR 5. 865 mls/hr IV .Q17H4M [facility] Rx#:[id number] propofoL 1,000 mg In 20.51 Empty Bag 1 bag @ 30 MCG/ KG/MIN 26.37 mls/hr IV . Q3H48M [place] Rx#:[id number] Tube Feeding 440 593 378 Other 90 90 Output: Urine 1585 1475 905 Other: Voiding Method Indwelling Catheter Indwelling Catheter Indwelling Catheter ABP, PAP, CO, CI - Last Documented Arterial Blood Pressure 111/51 - Constitutional General appearance: Present: no acute distress - Cardiovascular Rhythm: regular Heart sounds: normal: S1, S2 - Gastrointestinal General gastrointestinal: Present: normal bowel sounds - Labs CBC & Chem 7: 10/22/23 06:45 10/22/23 06:45 Labs: Abnormal Lab Results - Last 24 Hours (Table) 10/21/23 10/21/23 10/21/23 Range/Units 16:13 20:06 23:58 WBC (3.8-10.6) k/uL RBC (4.30-5.90) m/uL Hgb (13.0-17.5) gm/dL Hct (39.0-53.0) % RDW (11.5-15.5) % Neutrophils # (Manual) (1.3-7.7) k/uL Metamyelocytes # (Man) (0) k/uL Myelocytes # (Manual) (0) k/uL Nucleated RBCs (0-0) /100 WBC ABG pH (7.35-7.45) ABG pCO2 (35-45) mmHg ABG HCO3 (21-25) mmol/L ABG Total CO2 (19-24) mmol/L Potassium (3.5-5.1) mmol/L BUN (9-20) mg/dL Creatinine (0.66-1.25) mg/dL Glucose (74-99) mg/dL POC Glucose (mg/dL) 144 H 169 H 151 H (70-110) mg/dL Calcium (8.4-10.2) mg/dL 10/22/23 10/22/23 10/22/23 Range/Units 00:01 05:18 06:25 WBC (3.8-10.6) k/uL RBC (4.30-5.90) m/uL Hgb (13.0-17.5) gm/dL Hct (39.0-53.0) % RDW (11.5-15.5) % Neutrophils # (Manual) (1.3-7.7) k/uL Metamyelocytes # (Man) (0) k/uL Myelocytes # (Manual) (0) k/uL Nucleated RBCs (0-0) /100 WBC ABG pH 7.52 H (7.35-7.45) ABG pCO2 33 L (35-45) mmHg ABG HCO3 26 H (21-25) mmol/L ABG Total CO2 27 H (19-24) mmol/L Potassium (3.5-5.1) mmol/L BUN (9-20) mg/dL Creatinine (0.66-1.25) mg/dL Glucose (74-99) mg/dL POC Glucose (mg/dL) 147 H 192 H (70-110) mg/dL Calcium (8.4-10.2) mg/dL 10/22/23 10/22/23 10/22/23 Range/Units 06:45 06:45 11:35 WBC 15.7 H (3.8-10.6) k/uL RBC 2.65 L (4.30-5.90) m/uL Hgb 8.2 L (13.0-17.5) gm/dL Hct 24.5 L (39.0-53.0) % RDW 17.3 H (11.5-15.5) % Neutrophils # (Manual) 11.40 H (1.3-7.7) k/uL Metamyelocytes # (Man) 0.31 H (0) k/uL Myelocytes # (Manual) 0.16 H (0) k/uL Nucleated RBCs 1 H (0-0) /100 WBC ABG pH (7.35-7.45) ABG pCO2 (35-45) mmHg ABG HCO3 (21-25) mmol/L ABG Total CO2 (19-24) mmol/L Potassium 3.1 L (3.5-5.1) mmol/L BUN 78 H (9-20) mg/dL Creatinine 2.28 H (0.66-1.25) mg/dL Glucose 157 H (74-99) mg/dL POC Glucose (mg/dL) 165 H (70-110) mg/dL Calcium 7.5 L (8.4-10.2) mg/dL Assessment and Plan Assessment: Dorian is a 77 yo male w/ GI bleed Suspected Upper GI bleed -hgb, blood pressure, and HR stable -continue protonix -no intervention at this time
--- NOTE | 2023-10-22 14:18 | P.PN ---
Subjective Progress Note Date: 10/22/23 The patient is seen in neurologic follow-up on October 22, 2023, in cross coverage for Dr. Matos, in collaboration with Gail Hernandez, via teleneurology. The patient's chart has been reviewed. Case is discussed with the patient's nurse who is present at the bedside at the time of evaluation. She reports that the patient has not had any significant changes. He was sedated with Precedex because of elevated heart rate. The patient is receiving 0.4 mg of Precedex. According to nursing, the family has changed the patient's CODE STATUS back to full code. CT scan of the brain was performed on October 19. There is no reported evidence of acute ischemia. Other than the recent addition of Precedex and propofol, sedation has been held. The patient continues to be nonresponsive. Cardiac arrest occurred, twice on October 14, 2023. Total downtime was thought to be approximately 15 minutes. EEG was performed and revealed no evidence of seizure activity. There was noted to be moderate to severe, generalized slowing. Nursing does not report any seizure-like activity. There is no family present at the bedside at the time of this evaluation. Objective - Vital Signs Vital signs: Vital Signs Temp 98.9 F 10/22/23 08:00 Pulse 99 10/22/23 08:12 Resp 33 H 10/22/23 08:00 BP 128/69 10/22/23 08:00 Pulse Ox 97 10/22/23 08:00 FiO2 50 10/22/23 08:01 Intake & Output 10/21/23 10/22/23 10/22/23 18:59 06:59 18:59 Intake Total 894.069 793 146 Output Total 1585 1475 365 Balance -690.931 -682 -219 Weight 124.2 kg 124.6 kg Intake: IV 320 110 20 0.9 120 110 20 Meropenem 1 gm In Sodium 200 Chloride 0.9% 100 ml @ 33 .3 mls/hr IVPB Q8HR [place] Rx#:[id number] Intake, IV Titration 44.069 Amount fentaNYL (PF). 1,000 mcg 23.559 In Sodium Chloride 0.9% 80 ml @ 0.5 MCG/KG/HR 5. 865 mls/hr IV .Q17H4M [place] Rx#:[id number] propofoL 1,000 mg In 20.51 Empty Bag 1 bag @ 30 MCG/ KG/MIN 26.37 mls/hr IV . Q3H48M [facility] Rx#:[id number] Tube Feeding 440 593 126 Other 90 90 Output: Urine 1585 1475 365 Other: Voiding Method Indwelling Catheter Indwelling Catheter ABP, PAP, CO, CI - Last Documented Arterial Blood Pressure 111/51 - Exam General: The patient is reclining in the bed. He is intubated. He is in no acute distress. HEENT: Head is atraumatic, normocephalic. Fundus not visualized. There is no scleral icterus. Mucous membranes are moist. Heart: Irregularly irregular. Lungs: Patient is breathing over the vent. His respiratory rate is at approximately 36 Extremities: Patient has diffuse, severe generalized edema Neurological examination Mental status: The patient is not responsive to verbal or noxious stimulation. There is no eye-opening. He does not follow commands. Cranial nerves: Pupils are equal at 4 mm and reactive. There is no blink to visual threat. Oculocephalic reflexes are intact. Corneal reflex is intact on the right. There is no response on the left. Patient has a cough/gag, with deep suctioning. Motor: Extremities are flaccid Sensation: There is no response to noxious stimulation of all 4 extremities Deep tendon reflexes: Not assessed at this time secondary to marked edema. Plantar responses are flexor on the right and mute on the left. - Labs CBC & Chem 7: 10/22/23 06:45 10/22/23 06:45 Labs: Abnormal Lab Results - Last 24 Hours (Table) 10/21/23 10/21/23 10/21/23 Range/Units 05:13 12:47 16:13 WBC 14.4 H (3.8-10.6) k/uL RBC (4.30-5.90) m/uL Hgb (13.0-17.5) gm/dL Hct (39.0-53.0) % RDW (11.5-15.5) % Neutrophils # (Manual) 10.60 H (1.3-7.7) k/uL Monocytes # (Manual) 1.01 H (0-1.0) k/uL Metamyelocytes # (Man) 0.72 H (0) k/uL Myelocytes # (Manual) 0.29 H (0) k/uL Nucleated RBCs 1 H (0-0) /100 WBC ABG pH (7.35-7.45) ABG pCO2 (35-45) mmHg ABG HCO3 (21-25) mmol/L ABG Total CO2 (19-24) mmol/L Potassium (3.5-5.1) mmol/L BUN (9-20) mg/dL Creatinine (0.66-1.25) mg/dL Glucose (74-99) mg/dL POC Glucose (mg/dL) 181 H 144 H (70-110) mg/dL Calcium (8.4-10.2) mg/dL 10/21/23 10/21/23 10/22/23 Range/Units 20:06 23:58 00:01 WBC (3.8-10.6) k/uL RBC (4.30-5.90) m/uL Hgb (13.0-17.5) gm/dL Hct (39.0-53.0) % RDW (11.5-15.5) % Neutrophils # (Manual) (1.3-7.7) k/uL Monocytes # (Manual) (0-1.0) k/uL Metamyelocytes # (Man) (0) k/uL Myelocytes # (Manual) (0) k/uL Nucleated RBCs (0-0) /100 WBC ABG pH (7.35-7.45) ABG pCO2 (35-45) mmHg ABG HCO3 (21-25) mmol/L ABG Total CO2 (19-24) mmol/L Potassium (3.5-5.1) mmol/L BUN (9-20) mg/dL Creatinine (0.66-1.25) mg/dL Glucose (74-99) mg/dL POC Glucose (mg/dL) 169 H 151 H 147 H (70-110) mg/dL Calcium (8.4-10.2) mg/dL 10/22/23 10/22/23 10/22/23 Range/Units 05:18 06:25 06:45 WBC (3.8-10.6) k/uL RBC (4.30-5.90) m/uL Hgb (13.0-17.5) gm/dL Hct (39.0-53.0) % RDW (11.5-15.5) % Neutrophils # (Manual) (1.3-7.7) k/uL Monocytes # (Manual) (0-1.0) k/uL Metamyelocytes # (Man) (0) k/uL Myelocytes # (Manual) (0) k/uL Nucleated RBCs (0-0) /100 WBC ABG pH 7.52 H (7.35-7.45) ABG pCO2 33 L (35-45) mmHg ABG HCO3 26 H (21-25) mmol/L ABG Total CO2 27 H (19-24) mmol/L Potassium 3.1 L (3.5-5.1) mmol/L BUN 78 H (9-20) mg/dL Creatinine 2.28 H (0.66-1.25) mg/dL Glucose 157 H (74-99) mg/dL POC Glucose (mg/dL) 192 H (70-110) mg/dL Calcium 7.5 L (8.4-10.2) mg/dL 10/22/23 Range/Units 06:45 WBC 15.9 H (3.8-10.6) k/uL RBC 2.65 L (4.30-5.90) m/uL Hgb 8.2 L (13.0-17.5) gm/dL Hct 24.5 L (39.0-53.0) % RDW 17.3 H (11.5-15.5) % Neutrophils # (Manual) (1.3-7.7) k/uL Monocytes # (Manual) (0-1.0) k/uL Metamyelocytes # (Man) (0) k/uL Myelocytes # (Manual) (0) k/uL Nucleated RBCs (0-0) /100 WBC ABG pH (7.35-7.45) ABG pCO2 (35-45) mmHg ABG HCO3 (21-25) mmol/L ABG Total CO2 (19-24) mmol/L Potassium (3.5-5.1) mmol/L BUN (9-20) mg/dL Creatinine (0.66-1.25) mg/dL Glucose (74-99) mg/dL POC Glucose (mg/dL) (70-110) mg/dL Calcium (8.4-10.2) mg/dL Assessment and Plan Assessment: Status post cardiac arrest x 2, on 10/14/2023 with ventricular tachycardia and ventricular fibrillation. Downtime reported about 7-9 minutes the first time, and about 10 to 15 minutes during cardiac catheterization. Probable anoxic enc ephalopathy. Prognosis poor * Acute hypoxic respiratory failure secondary to cardiac arrest, on mechanical ventilation * Longstanding history of seizure disorder/epilepsy. * Abnormal EEG. * Status post cardiac catheterization for acute lateral ST segment elevation myocardial infarction and the patient underwent emergent cardiac catheterization. The patient underwent a complicated coronary intervention requiring Impella for hemodynamic support, stenting of the left main, circumflex, proximal and mid RCA. A total of 5 stents were inserted. * Upper GI bleeding related to various antiplatelet agents and anticoagulation patient is now off heparin he is on aspirin and Plavix * Acute blood loss anemia requiring transfusion * Acute kidney injury, could be cardiorenal in nature, getting worse. * CHF, with EF 20% * Pneumonia * Acute hypoxic metabolic encephalopathy * History of COVID-19 pneumonia, recovering * History of seizure disorder * Hypothyroidism * Hypertension * Ex-smoke Plan: 1. Unfortunately, be because there was no family present at the bedside this morning, neurology was unable to have a discussion with them regarding the patient's prognosis 2. Consider hospice consultation Time with Patient: Greater than 30 (40 minutes were spent caring for this patient today including, obtaining history, examining the patient, reviewing imaging, labs, chart documentation and creating this note)
[2023-10-22 16:47] LABS: Glucose,Whole Blood 184 mg/dL (70-110)
[2023-10-22 20:01] LABS: Glucose,Whole Blood 184 mg/dL (70-110)
[2023-10-22 23:28] LABS: Glucose,Whole Blood 181 mg/dL (70-110)
[2023-10-22 23:34] LABS: Glucose,Whole Blood 177 mg/dL (70-110)
[2023-10-23 00:25] LABS: African American GFR (CKD) 34 (>60 ml/min/1.73 sqM); Anion Gap 4 mmol/L; Blood Urea Nitrogen 89 mg/dL (9-20); Calcium 7.2 mg/dL (8.4-10.2); Carbon Dioxide 29 mmol/L (22-30); Chloride 107 mmol/L (98-107); Glucose 164 mg/dL (74-99); Non-African American GFR(CKD) 30 (>60 ml/min/1.73 sqM); Potassium 3.5 mmol/L (3.5-5.1); Sodium 140 mmol/L (137-145)
[2023-10-23] MEDS: POTASSIUM CHLORIDE 20 MEQ in WATER FOR INJECTION 1 100ML.BAG IVPB SCH (00:37)
[2023-10-23 03:48] LABS: Glucose,Whole Blood 198 mg/dL (70-110)
[2023-10-23 05:20] LABS: ABG Base Excess 6.2 mmol/L; ABG HCO3 29 mmol/L (21-25); ABG Oxygen Saturation 97.1 % (94-97); ABG PCO2 35 mmHg (35-45); ABG PH 7.53 (7.35-7.45); ABG PO2 82 mmHg (83-108); ABG TCO2 30 mmol/L (19-24); Allen Test Performed? Yes
[2023-10-23 05:22] LABS: Anisocytosis Slight; Basophils # (A) 0.1 k/uL (0-0.2); Basophils % (A) 1 %; Eosinophils # (A) 0.1 k/uL (0-0.7); Eosinophils % (A) 0 %; HCT 25.1 % (39.0-53.0); HGB 8.3 gm/dL (13.0-17.5); Hypochromasia Slight; Lymphocytes # (A) 2.3 k/uL (1.0-4.8); Lymphocytes % (A) 13 %; MCH 30.6 pg (25.0-35.0); MCHC 32.9 g/dL (31.0-37.0); MCV 93.1 fL (80.0-100.0); Mean Platelet Volume 10.8; Monocytes # (A) 1.3 k/uL (0-1.0); Monocytes % (A) 7 %; Neutrophils # (A) 13.9 k/uL (1.3-7.7); Neutrophils % (A) 77 %; Platelet Count 204 k/uL (150-450); RBC 2.69 m/uL (4.30-5.90); RDW 17.6 % (11.5-15.5); WBC 18.2 k/uL (3.8-10.6)
[2023-10-23 05:41] LABS: ALT 85 U/L (4-49); AST 281 U/L (17-59); African American GFR (CKD) 33 (>60 ml/min/1.73 sqM); Albumin 2.1 g/dL (3.5-5.0); Alkaline Phosphatase 86 U/L (38-126); Anion Gap 9 mmol/L; Blood Urea Nitrogen 91 mg/dL (9-20); Calcium 7.2 mg/dL (8.4-10.2); Carbon Dioxide 27 mmol/L (22-30); Chloride 107 mmol/L (98-107); Glucose 171 mg/dL (74-99); Magnesium 1.8 mg/dL (1.6-2.3); Non-African American GFR(CKD) 28 (>60 ml/min/1.73 sqM); Potassium 3.8 mmol/L (3.5-5.1); Sodium 143 mmol/L (137-145); Total Bilirubin 0.8 mg/dL (0.2-1.3)
[2023-10-23] MEDS: POTASSIUM CHLORIDE 10 MEQ in WATER FOR INJECTION 1 100ML.BAG IVPB SCH (06:02)
[2023-10-23] MEDS: MAGNESIUM SULFATE-D5W PMX 1 GM in DEXTROSE/WATER 1 100ML.BAG IVPB ONE ×2 (06:04→06:06)
--- NOTE | 2023-10-23 09:53 | P.PN ---
Subjective Patient is seen in follow-up for acute kidney injury. Renal function stable. On IV Lasix. Nonoliguric. Off Levophed. Intubated. Off sedation. Minimally responsive. Vital signs are stable. General: Resting in bed. HEENT: Intubated. LUNGS: Scattered rhonchi. HEART: Rate and Rhythm are regular. ABDOMEN: Nontender. EXTREMITITES: 2+ edema. Objective - Vital Signs Vital signs: Vital Signs Temp 98.1 F 10/23/23 07:47 Pulse 92 10/23/23 08:10 Resp 34 H 10/23/23 07:00 BP 116/72 10/23/23 07:00 Pulse Ox 95 10/23/23 07:00 FiO2 50 10/23/23 07:43 Intake & Output 10/22/23 10/23/23 10/23/23 17:59 06:59 18:59 Intake Total 283 Output Total 135 Balance 148 Weight Intake: IV 220 0.9 20 Magnesium Sulfate-D5w Pmx 1 gm In Dextrose/Water 1 100ml.bag @ 100 mls/hr IVPB ONCE ONE Rx#: [id number] Meropenem 1 gm In Sodium 100 Chloride 0.9% 100 ml @ 33 .3 mls/hr IVPB Q8HR [facility] Rx#:[id number] Potassium Chloride 10 meq 100 In Water For Injection 1 100ml.bag @ 100 mls/hr IVPB Q1H [facility] Rx#: [id number] Potassium Chloride 20 meq In Water For Injection 1 100ml.bag @ 50 mls/hr IVPB Q2H [facility] Rx#: [id number] Tube Feeding 63 Other Output: Urine 135 Other: Voiding Method # Bowel Movements 0 ABP, PAP, CO, CI - Last Documented Arterial Blood Pressure 111/51 - Labs CBC & Chem 7: 10/23/23 04:40 10/23/23 04:40 Labs: Abnormal Lab Results - Last 24 Hours (Table) 10/22/23 10/22/23 10/22/23 Range/Units 06:45 11:35 16:45 WBC 15.7 H (3.8-10.6) k/uL RBC (4.30-5.90) m/uL Hgb (13.0-17.5) gm/dL Hct (39.0-53.0) % RDW (11.5-15.5) % Neutrophils # (1.3-7.7) k/uL Neutrophils # (Manual) 11.40 H (1.3-7.7) k/uL Monocytes # (0-1.0) k/uL Metamyelocytes # (Man) 0.31 H (0) k/uL Myelocytes # (Manual) 0.16 H (0) k/uL Nucleated RBCs 1 H (0-0) /100 WBC ABG pH (7.35-7.45) ABG pO2 (83-108) mmHg ABG HCO3 (21-25) mmol/L ABG Total CO2 (19-24) mmol/L ABG O2 Saturation (94-97) % BUN (9-20) mg/dL Creatinine (0.66-1.25) mg/dL Glucose (74-99) mg/dL POC Glucose (mg/dL) 165 H 184 H (70-110) mg/dL Calcium (8.4-10.2) mg/dL AST (17-59) U/L ALT (4-49) U/L Total Protein (6.3-8.2) g/dL Albumin (3.5-5.0) g/dL 10/22/23 10/22/23 10/22/23 Range/Units 20:00 23:27 23:33 WBC (3.8-10.6) k/uL RBC (4.30-5.90) m/uL Hgb (13.0-17.5) gm/dL Hct (39.0-53.0) % RDW (11.5-15.5) % Neutrophils # (1.3-7.7) k/uL Neutrophils # (Manual) (1.3-7.7) k/uL Monocytes # (0-1.0) k/uL Metamyelocytes # (Man) (0) k/uL Myelocytes # (Manual) (0) k/uL Nucleated RBCs (0-0) /100 WBC ABG pH (7.35-7.45) ABG pO2 (83-108) mmHg ABG HCO3 (21-25) mmol/L ABG Total CO2 (19-24) mmol/L ABG O2 Saturation (94-97) % BUN (9-20) mg/dL Creatinine (0.66-1.25) mg/dL Glucose (74-99) mg/dL POC Glucose (mg/dL) 184 H 181 H 177 H (70-110) mg/dL Calcium (8.4-10.2) mg/dL AST (17-59) U/L ALT (4-49) U/L Total Protein (6.3-8.2) g/dL Albumin (3.5-5.0) g/dL 10/22/23 10/23/23 10/23/23 Range/Units 23:40 03:46 04:40 WBC 18.2 H (3.8-10.6) k/uL RBC 2.69 L (4.30-5.90) m/uL Hgb 8.3 L (13.0-17.5) gm/dL Hct 25.1 L (39.0-53.0) % RDW 17.6 H (11.5-15.5) % Neutrophils # 13.9 H (1.3-7.7) k/uL Neutrophils # (Manual) (1.3-7.7) k/uL Monocytes # 1.3 H (0-1.0) k/uL Metamyelocytes # (Man) (0) k/uL Myelocytes # (Manual) (0) k/uL Nucleated RBCs (0-0) /100 WBC ABG pH (7.35-7.45) ABG pO2 (83-108) mmHg ABG HCO3 (21-25) mmol/L ABG Total CO2 (19-24) mmol/L ABG O2 Saturation (94-97) % BUN 89 H (9-20) mg/dL Creatinine 2.11 H (0.66-1.25) mg/dL Glucose 164 H (74-99) mg/dL POC Glucose (mg/dL) 198 H (70-110) mg/dL Calcium 7.2 L (8.4-10.2) mg/dL AST (17-59) U/L ALT (4-49) U/L Total Protein (6.3-8.2) g/dL Albumin (3.5-5.0) g/dL 10/23/23 10/23/23 Range/Units 04:40 05:19 WBC (3.8-10.6) k/uL RBC (4.30-5.90) m/uL Hgb (13.0-17.5) gm/dL Hct (39.0-53.0) % RDW (11.5-15.5) % Neutrophils # (1.3-7.7) k/uL Neutrophils # (Manual) (1.3-7.7) k/uL Monocytes # (0-1.0) k/uL Metamyelocytes # (Man) (0) k/uL Myelocytes # (Manual) (0) k/uL Nucleated RBCs (0-0) /100 WBC ABG pH 7.53 H (7.35-7.45) ABG pO2 82 L (83-108) mmHg ABG HCO3 29 H (21-25) mmol/L ABG Total CO2 30 H (19-24) mmol/L ABG O2 Saturation 97.1 H (94-97) % BUN 91 H (9-20) mg/dL Creatinine 2.19 H (0.66-1.25) mg/dL Glucose 171 H (74-99) mg/dL POC Glucose (mg/dL) (70-110) mg/dL Calcium 7.2 L (8.4-10.2) mg/dL AST 281 H (17-59) U/L ALT 85 H (4-49) U/L Total Protein 5.0 L (6.3-8.2) g/dL Albumin 2.1 L (3.5-5.0) g/dL Assessment and Plan Plan: Assessment: 1. Hyponatremia. Due to urinary retention and hypervolemia. Improved. TSH normal. Urine osmolality 543. Urine sodium less than 20. 2. Acute kidney injury initially secondary to urinary retention. Now ATN due t o cardiac arrest. Creatinine peaked at 2.6 this admission and is 2.19 today. No proteinuria on UA. No hydronephrosis noted on kidney ultrasound. 3. Urinary retention status post Rosales catheter placement. On Flomax. Urology following. 4. Benign hypertension. Controlled. Off Levophed. 5. Hypokalemia from diuresis. Replaced. Better. 6. Rhabdomyolysis secondary to fall. CK level improved. 7. Acute blood loss anemia status post blood transfusion this admission. Hemoglobin stable at 8.2. 8. Volume overload. 9. Acute ST elevated myocardial infarction status post cardiac stenting October 14, 2023. 10. Acute systolic CHF with ejection fraction of 20 to 25% noted on echocardiogram done October 18, 2023. Plan: Maintain IV Lasix. Receiving tube feeds. Potassium and magnesium being replaced. Avoid nephrotoxins. Continue to monitor renal function and urine output. Wean FiO2. Prognosis guarded.
[2023-10-23 10:18] LABS: Glucose,Whole Blood 212 mg/dL (70-110)
[2023-10-23 11:48] LABS: Glucose,Whole Blood 215 mg/dL (70-110)
--- NOTE | 2023-10-23 12:00 | P.PN ---
Subjective Progress Note Date: 10/23/23 Principal diagnosis: Cardiac arrest and cardiogenic shock This is a 77-year-old male patient with a history of hypertension, seizure disorder, thyroid disorder, former smoker. On September 27, 2023 the patient had gotten up to go the bathroom and slumped onto the ground. He had been reportedly laying on the ground for several hours by family were attempting to get in helping him get up but he was unable to support himself. He also had trouble with urinary incontinence. EMS was called and he was brought here for evaluation. CT scan of the brain revealed no acute intracranial hemorrhage, midline shift or mass effect. EKG revealed sinus rhythm with no significant ST or T wave abnormalities. White count 14.9. Hemoglobin 12.9. Platelets 146. Sodium 126. Potassium 3.9. Bicarb 26. BUN 15. Creatinine 0.68. Glucose 152. AST 148. ALT 43. Creatinine kinase 2283. He did test positive for COVID-19 infection. His initial sodium level was 118. BUN of 24 and a creatinine of 1.26. He had been seen by nephrology, urology and infectious disease. A chest x-ray was done today September 30, 2023 that revealed an elevated right hemidiaphragm and we are consulted for the same. He was sent for a sniff test however the patient was unable to perform the appropriate maneuvers due to overall condition. He is seen on consultation on the selective care unit. He is currently resting in bed. Difficult to arouse but arousable. He is on a nonrebreather mask with O2 saturation of 90%. Currently afebrile. Hemodynamically stable. He has been initiated on Decadron. Antibiotics in the form of cefepime. Saline at 50 MLS per hour. Patient was evaluated today on 10/01/2023, more awake today, more responsive, seems to be more alert, and remains on a nonrebreather mask which I have recommended to transition to high flow nasal cannula. Patient did transition to 10 L high flow nasal cannula and O2 saturation was ranging between 92 up to 96% definitely better today compared to the last couple of days. Still planning to repeat his sniff test to evaluate for right hemidiaphragm paralysis. Procalcitonin level came back elevated at 0.43, patient remains on antibiotics for presumptive right lower lobe pneumonia. WBC count today 13.9 hemoglobin 13.0.Basic metabolic profile is relatively normal. Reevaluated today on 10/02/2023, patient is on 10 L high flow nasal cannula, doing better, breathing easier, O2 saturation is in the low 90s, patient continues to have diminished breath sounds at the right base, and I believe the patient has right hemidiaphragm paralysis with right lower lobe atelectasis, possible underlying pneumonia, but I feel clinically this is not the picture. At any rate the patient is supposed to have a sniff test tomorrow, may even have to consider a CT of the chest to evaluate the right lower lobe further. Based on the sniff test, further recommendations will follow. In the meantime patient is gradually improving, feeling better, breathing easier and definitely his neurological status is significantly improved now compared to how he was few days ago WBC count is 10.2 hemoglobin is 12.3, sodium is up to 130, potassium 3.1 renal profile is normal procalcitonin level on this patient was 0.43, hence he was empirically placed on antibiotics for presumptive right lower lobe pneumonia 10/16/2023, the patient remains critically ill intubated on the mechanical ventilator in the intensive care unit. He is postcardiac arrest and post emergent cardiac catheterization and a total of 5 stents were inserted and the patient was also given an Impella for hemodynamic support which is currently at p 7 augmentation with a flow of 3.2 L/min. The patient remains essentially unresponsive. He was given a brief sedation holiday yesterday to assess mentation. Immediately, the patient became restless, asynchronous with mechanical ventilator, and tachycardic and based on his underlying instability, propofol was restarted and which is currently running at 50 mcg/kg/min. He remains on assist-control mode of mechanical ventilation at the rate of 26, tidal volume of 450, FiO2 is at 60% with a PEEP of 15. Chest x-ray shows no major interval change. Blood gas from this morning shows a pH of 7.46 with a pCO2 of 44 and pO2 of 129. Hemodynamically, he remains unstable and hypotensive. Significant support still being provided to the Impella. Unable to tolerate lower levels of augmentation due to significant hypotension. While on P7, the patient is maintaining a mean arterial pressure of 70 and the patient is also on norepinephrine running at 0.02 mcg/kg/min. Cardiac rhythm is sinus tachycardia. No further episodes of ventricular arrhythmias. The patient was taken off the amiodarone and is also off the lidocaine drip. Urine output has dropped considerably and the patient also has developed an acute kidney injury. Creatinine is up to 1.9 with a BUN of 43. He is spiking temperature and his Tmax is 103.1. He remains on the same antibiotic coverage and he is currently on IV cefepime. Another complication is development of an upper GI bleed. Since yesterday afternoon, the patient had dark bloody output from his NG tube and a total amount has been in the order of 400 cc since yesterday. Based on his underlying GI bleed, IV heparin was discontinued. He remains on aspirin and Brilinta. He is off the Aggrastat for now. The hemoglobin has dropped down to 8.7. He remains in normal sinus rate of 75 cc an hour. Norepinephrine is running at 0.02 mcg/kg/min. IV heparin is discontinued. Rest of the blood work shows a WBC count of 37.6, hemoglobin 7.7 and a platelet count of 198. The serum bicarb is at 23 with a sodium level of 129. Blood sugar is at 188. Troponin peaked at 282. CPK was at 01/19/2023. He remains NPO. An echocardiogram was done yesterday and the patient was found to have significant impairment of the LV function with an ejection fraction of around 20%. Contacted the family, unable to get a hold of any family members. The family was supposed to arrive into the hospital to my understanding. Nevertheless, nobody showed up and we have placed multiple phone calls without getting any answers back. He is postcardiac arrest. Please refer to details of the cardiac intervention that was done as stated earlier. Patient was reevaluated today on 10/17/2023, remains in the ICU, intubated and mechanically ventilated. Patient is on assist-control rate of 26 tidal volume 450 FiO2 60% PEEP of 15 EGD showed a pO2 of 92 pCO2 43 pH of 7.48. No changes were made in his present ventilator settings. Patient continues to have Impella in place, it is at P7 augmentation, nonetheless, patient remains marginal at best. Ejection fraction is 20%. Patient is on propofol at 50 mcg/kg/min, he is also on IV fluid at 75 cc/h. Remains on Merrem and vancomycin, patient does not seem to be fully sedated, seems to be asynchronous with the ventilator today, hence I recommended increasing propofol up to 75 mcg/kg/min, and do Dilaudid as needed WBC count is 25.6 hemoglobin is 8.2. Fibrinogen is 521Basic metabolic profile is normal BUN is 53 creatinine 1.57. Chest x-ray showed patchy perihilar infiltrates, not much different from the chest x-ray prior. Looking back at the note, patient had his cardiac arrest on 10/14/2023, he was taken to the cardiac cath, underwent PTCA and stenting done. And he required intermittently pressor support/norepinephrine. Empirically the patient is on Merrem and vancomycin, patient has allergy to penicillin. Patient is being followed by infectious disease patient is off heparin. He is not requiring norepinephrine today, blood pressure is rather marginal. Output today is 3.3. CODE STATUS was changed to DNR CODE STATUS. The overall prognostic picture seems to be extremely poor Reevaluate 10/18/2023, patient remains in the ICU, intubated and mechanically ventilated. Patient is on assist-control rate of 26 tidal volume 450 which I increased up to 500, FiO2 60% PEEP of 15 ABG showed a pO2 of 90 pCO2 54 pH of 7.33 plan is to cut down the FiO2 to 50% and eventually address the PEEP. Patient continues to have the Impella in place, and it is at P7 augmentation. Patient continues to do poorly, he is requiring significant amount of drips including norepinephrine at 0.08 mcg/kg/min, Dobutrex at 2.5 mcg/kg/min, he is also on propofol 70 mcg/kg/min Fentanyl at 1 mcg/kg/h. Patient is spiking fever with Tmax of 102.5, continues to have leukocytosis with WBC count of 26.3. He has very poor and marginal urine output, patient remains on Flagyl vancomycin and Merrem. Yesterday I had a long discussion and updated family on his condition, and still not considering comfort care measures. Although the prognosis is extremely poor, and this was discussed with cardiology today. Patient dropped his hemoglobin today down to 6.3, patient will require blood transfusion, WBC count is 22.2. Platelets are 106 renal functioning is worsening BUN is 57 creatinine now is up to 2.18, and this is most likely acute tubular necrosis related to hypotension and cardiorenal in nature. Chest x-ray noted to have small area of focal infiltrate in the right midlung zone, endotracheal tube was noted to be high in the trachea and this was advanced down by 2 cm Patient was reevaluated today on 10/19/2023, remains in the ICU, intubated and mechanically ventilated, patient remains on assist-control rate of 26 tidal volume 500, FiO2 50%, and PEEP of 15, basically about the same, he is still very marginal at best, BG is marginal showed a pO2 of 52 pCO2 41 pH of 7.41, hence no changes made in the ventilator settings. Remains at P6 augmentation on his Impella. This is DNR at this point, but family is not willing to go to comfort care at this point yet. Still on norepinephrine at 0.06 mcg/kg/min still on Dobutrex at 5 mcg/kg/min, his off epinephrine, vasopressin at 0.04, he is on propofol and remains on fentanyl. Pressure today is slightly better, chest x- ray is basically the same, no major change, continues to have right hemidiaphragm elevation, and infiltrate in the right upper lobe area antibiotics are the same including Flagyl vancomycin and Merrem. BC count remains high 19.7 hemoglobin is 7.3. Continues to have intermittent episodes of GI bleeding remains on hold. Electrolytes are normal however his renal profile is worsening with a BUN of 69 creatinine 2.41. Overall I do not believe there is a significant improvement in this man's condition, I believe overall he is basically the same, and prognosis remains extremely poor and guarded Patient was reevaluated today on 10/20/2023, remains in the ICU, intubated and mechanically ventilated. His Impella was removed yesterday, patient required aspiration thrombectomy from the left external iliac artery using pnumbra device, done by Dr. Carreon yesterday, he also underwent stenting of the left external iliac artery. Today the patient is back to full code, family ananya rebolledo changed his CODE STATUS, and he remains full code for now. He is intubated on mechanical ventilation assist-control rate of 26 tidal volume 500 FiO2 50% and PEEP was 12 and I cut it down to 10 ABG showed a pO2 of 88 pCO2 40 pH of 7.39. Hemoglobin is low at 6.9, patient will receive a unit of packed RBCs today. Hemodynamics the patient is off norepinephrine, he is on propofol at 35 mcg/kg/min he is also on fentanyl at 1.5 mcg/kg/h. Today the patient will be given a sedation holiday, and I will try to address at least mental status. Antibiotics hughes remains on Merrem. Continues to have GI bleeding, and that is being followed by general surgery, however the patient is not a candidate for any intervention at this point considering his overall cardiac status. Nutrition hughes patient is on trickle feeds. WBC count today is 17.3 hemoglobin is 6.9. Platelets are 94,000. Basic metabolic profile is normal BUN however is 73 creatinine 2.40 slightly improved compared to yesterday. Sputum cultures have been negative, blood cultures have been negative from 10/14 chest x-ray continues to show right lower lobe atelectasis/consolidation and right hemidiaphragm elevation highly suspicious for right hemidiaphragm paralysis based on the chronicity of the problem Patient was reevaluated today on 10/21/2023, remains in the ICU, CODE STATUS has been changed to full code, patient is now on assist-control rate of 26 tidal volume 500 FiO2 50% PEEP was done and I cut it down to 8 ABG showed a pO2 of 98 pCO2 37 pH of 7.42. Patient is still sedated with propofol at 10 mcg/kg/min, fentanyl at 1 mcg/kg/h. IV fluid 0.9 normal saline at KVO, patient is receiving vital HP at 30 cc/h. Remains on Merrem and he remains on Lasix 40 mg IV push every 8 hours. Not much of a change noted in the last 24 hours, chest x-ray remains the same showing mostly right lower lobe atelectasis and right upper lobe infiltrate. Patient will be given today a mental status assessment, and a sedation holiday, he is not quite ready for weaning, but at least we will try to assess mental status if possible off sedation today WBC count is 14.4 hemoglobin is 8.2. Basic metabolic profile is normal BUN is 71 creatinine 2.60 Patient was reevaluated today on 10/22/2023, remains in the ICU, intubated and mechanically ventilated. Patient has been completely off sedation, and continues to have no responses, patient is not waking up, and he is not responding to deep painful stimuli. Neurology is on board. Apparently his EEG reflected severe toxic metabolic encephalopathy. Patient is on assist-control rate of 26 tidal volume 500 FiO2 50% PEEP of 8 ABG showed a pO2 of 83 pCO2 33 pH of 7.52. Remains on Lasix 40 mg IV push every 8 hours remains on Merrem his endotracheal tube seems to be a bit low hence will be pulling the tube about 2 cm. No changes were made in his vent settings, patient remains on vital HP at 50 cc/h. Obviously the patient does not ready for any form of weaning especially with his neurological status as bad as it is. Will continue the same management, and hopefully family carmen will decide on comfort care measures as the prognosis seems to be extremely poor and guarded if not, patient may have to be considered for trach and PEG next week . WBC count is 15.7 hemoglobin 8.2 e lectrolytes were reviewed potassium is 3.1 BUN is 78 creatinine 2.28, slightly improved compared to yesterday. Patient evaluated today on 10/23/2023, remains in the ICU, intubated, mechanically ventilated, has been off sedation for the last few days, patient is not showing any signs of neurological recovery. Remains unresponsive to painful stimuli, patient opens eyes at times, but no responses and no purposeful movement. Remains on vital HP at 63 mL/h remains on IV fluids at KVO, patient is intubated on assist-control rate of 26 tidal volume 500 FiO2 50% and PEEP of 8 ABG showed a pO2 of 82 pCO2 of 35 pH of 7.53. No major improvement noted in the last week, and I believe the patient should be seriously considered for comfort care measures. At 1 point the patient was made DNR CODE STATUS, but after the Impella device was removed, family changed the CODE STATUS to full code. I believe the patient has severe anoxic brain injury and severe anoxic encephalopathy, does not seem to be recovering and again I am strongly recommending comfort care measures on this patient. His labs showed WBC count of 18.2 hemoglobin is 8.3 platelets are 204, basic metabolic profile is normal BUN is 91 creatinine 2.19, blood cultures and sputum cultures have been negative Objective - Vital Signs Vital signs: Vital Signs Temp 97.7 F 10/23/23 08:00 Pulse 95 10/23/23 11:47 Resp 33 H 10/23/23 11:00 BP 116/68 10/23/23 11:00 Pulse Ox 95 10/23/23 11:00 FiO2 50 10/23/23 11:46 Intake & Output 10/22/23 10/23/2310/22/24 17:59 06:59 18:59 Intake Total 459 Output Total 660 Balance -201 Weight Intake: IV 270 0.9 50 Invasive Line 6 10 Invasive Line 9 10 Magnesium Sulfate-D5w Pmx 1 gm In Dextrose/Water 1 100ml.bag @ 100 mls/hr IVPB ONCE ONE Rx#: [id number] Meropenem 1 gm In Sodium 100 Chloride 0.9% 100 ml @ 33 .3 mls/hr IVPB Q8HR [facility] Rx#:[id number] Potassium Chloride 10 meq 100 In Water For Injection 1 100ml.bag @ 100 mls/hr IVPB Q1H [place] Rx#: [id number] Potassium Chloride 20 meq In Water For Injection 1 100ml.bag @ 50 mls/hr IVPB Q2H [facility] Rx#: [id number] Tube Feeding 189 Other Output: Urine 660 Other: Voiding Method Indwelling Catheter # Bowel Movements 0 ABP, PAP, CO, CI - Last Documented Arterial Blood Pressure 111/51 - Exam General: Reveals 77-year-old white male obese, unresponsive to any stimuli Head: Atraumatic normocephalic. Skin: No rashes. Eye: Pupils are equal, round and reactive to light,; there is normal conjunctiva bilaterally. Ears, nose, mouth and throat: There are moist mucous membranes and no oral lesions. Tracheal tube is intact, orogastric tube is intact. Neck: The neck is supple, there is no tenderness or JVD. Cardiovascular: Normal S1-S2, no gallop, 2/6 systolic murmur in the left lower sternal border Respiratory: Distant breath sound bilaterally no crackles rhonchi or wheezes Gastrointestinal: Obese, soft, nontender, no megaly, no rebound, no guarding. Musculoskeletal: No deformities noted, extremities showed no clubbing, 3+ bipedal edema, no cyanosis Neurological: Of sedation, patient has no neurological responses. Psychiatric: Could not assess - Labs CBC & Chem 7: 10/23/23 04:40 10/23/23 04:40 Labs: Abnormal Lab Results - Last 24 Hours (Table) 10/22/23 10/22/23 10/22/23 Range/Units 11:35 16:45 20:00 WBC (3.8-10.6) k/uL RBC (4.30-5.90) m/uL Hgb (13.0-17.5) gm/dL Hct (39.0-53.0) % RDW (11.5-15.5) % Neutrophils # (1.3-7.7) k/uL Monocytes # (0-1.0) k/uL ABG pH (7.35-7.45) ABG pO2 (83-108) mmHg ABG HCO3 (21-25) mmol/L ABG Total CO2 (19-24) mmol/L ABG O2 Saturation (94-97) % BUN (9-20) mg/dL Creatinine (0.66-1.25) mg/dL Glucose (74-99) mg/dL POC Glucose (mg/dL) 165 H 184 H 184 H (70-110) mg/dL Calcium (8.4-10.2) mg/dL AST (17-59) U/L ALT (4-49) U/L Total Protein (6.3-8.2) g/dL Albumin (3.5-5.0) g/dL 10/22/23 10/22/23 10/22/23 Range/Units 23:27 23:33 23:40 WBC (3.8-10.6) k/uL RBC (4.30-5.90) m/uL Hgb (13.0-17.5) gm/dL Hct (39.0-53.0) % RDW (11.5-15.5) % Neutrophils # (1.3-7.7) k/uL Monocytes # (0-1.0) k/uL ABG pH (7.35-7.45) ABG pO2 (83-108) mmHg ABG HCO3 (21-25) mmol/L ABG Total CO2 (19-24) mmol/L ABG O2 Saturation (94-97) % BUN 89 H (9-20) mg/dL Creatinine 2.11 H (0.66-1.25) mg/dL Glucose 164 H (74-99) mg/dL POC Glucose (mg/dL) 181 H 177 H (70-110) mg/dL Calcium 7.2 L (8.4-10.2) mg/dL AST (17-59) U/L ALT (4-49) U/L Total Protein (6.3-8.2) g/dL Albumin (3.5-5.0) g/dL 10/23/23 10/23/23 10/23/23 Range/Units 03:46 04:40 04:40 WBC 18.2 H (3.8-10.6) k/uL RBC 2.69 L (4.30-5.90) m/uL Hgb 8.3 L (13.0-17.5) gm/dL Hct 25.1 L (39.0-53.0) % RDW 17.6 H (11.5-15.5) % Neutrophils # 13.9 H (1.3-7.7) k/uL Monocytes # 1.3 H (0-1.0) k/uL ABG pH (7.35-7.45) ABG pO2 (83-108) mmHg ABG HCO3 (21-25) mmol/L ABG Total CO2 (19-24) mmol/L ABG O2 Saturation (94-97) % BUN 91 H (9-20) mg/dL Creatinine 2.19 H (0.66-1.25) mg/dL Glucose 171 H (74-99) mg/dL POC Glucose (mg/dL) 198 H (70-110) mg/dL Calcium 7.2 L (8.4-10.2) mg/dL AST 281 H (17-59) U/L ALT 85 H (4-49) U/L Total Protein 5.0 L (6.3-8.2) g/dL Albumin 2.1 L (3.5-5.0) g/dL 10/23/23 10/23/23 10/23/23 Range/Units 05:19 10:16 11:47 WBC (3.8-10.6) k/uL RBC (4.30-5.90) m/uL Hgb (13.0-17.5) gm/dL Hct (39.0-53.0) % RDW (11.5-15.5) % Neutrophils # (1.3-7.7) k/uL Monocytes # (0-1.0) k/uL ABG pH 7.53 H (7.35-7.45) ABG pO2 82 L (83-108) mmHg ABG HCO3 29 H (21-25) mmol/L ABG Total CO2 30 H (19-24) mmol/L ABG O2 Saturation 97.1 H (94-97) % BUN (9-20) mg/dL Creatinine (0.66-1.25) mg/dL Glucose (74-99) mg/dL POC Glucose (mg/dL) 212 H 215 H (70-110) mg/dL Calcium (8.4-10.2) mg/dL AST (17-59) U/L ALT (4-49) U/L Total Protein (6.3-8.2) g/dL Albumin (3.5-5.0) g/dL Assessment and Plan Assessment: Impression: Cardiac arrest with ventricular tachycardia and ventricular fibrillation, status post cardiac catheterization for acute lateral ST segment elevation myocardial infarction and the patient underwent emergent cardiac catheterization. The patient underwent a complicated coronary intervention requiring Impella for hemodynamic support, stenting of the left main, circumflex, proximal and mid RCA. A total of 5 stents were inserted. Acute hypoxic respiratory failure secondary to cardiac arrest Ventricular tachycardia/VF, postacute AL Upper GI bleeding related to various antiplatelet agents and anticoagulation patient is now off heparin he is on aspirin and Plavix Acute blood loss anemia requiring transfusion Acute kidney injury, could be cardiorenal in nature. There are cardiomyopathy and LV dysfunction. Acute febrile illness, exact etiology is not clear patient is empirically on antibiotics chest x-ray is showing a limited infiltrate in the right midlung. History of COVID-19 pneumonia, recovering Right hemidiaphragm elevation possible paralysis History of seizure disorder History of hypothyroidism History of hypertension Ex-smoker Severe LV dysfunction with ejection fraction of 20% Status post removal of his Impella device and required aspiration thrombectomy from the left external iliac on 10/19/2023 Suspect severe anoxic brain injury, severe toxic metabolic encephalopathy Recommendation: Assuming family does not agree to comfort care measures, patient should be considered for tracheostomy and PEG tube placement and eventual placement in select care specialty or halfway Continue to hold all sedation and narcotics. Continue ventilatory support, considering mental status not ready for any weaning Continue nutritional support/enteral feeding Continue aspirin and Brilinta Continue antibiotics Continue diuretics Continue daily assessment of mental status and address that with neurology Patient remains critically ill, prognosis is extremely poor Will continue to follow. Critical care time is over 30 minutes Time with Patient: Greater than 30
--- NOTE | 2023-10-23 13:15 | P.PN ---
Subjective Progress Note Date: 10/23/23 Principal diagnosis: GI bleed Patient remains in the ICU. No active bleeding. She is stooling. Remains on platelet inhibitors. Hemoglobin stable at 8.3. Patient remains confused. Objective - Vital Signs Vital signs: Vital Signs Temp 97.7 F 10/23/23 08:00 Pulse 96 10/23/23 12:06 Resp 37 H 10/23/23 12:00 BP 124/74 10/23/23 12:00 Pulse Ox 95 10/23/23 12:00 FiO2 50 10/23/23 12:00 Intake & Output 10/22/23 10/23/23 10/23/23 17:59 06:59 18:59 Intake Total 469 Output Total 910 Balance -441 Weight Intake: IV 280 0.9 60 Invasive Line 6 10 Invasive Line 9 10 Magnesium Sulfate-D5w Pmx 1 gm In Dextrose/Water 1 100ml.bag @ 100 mls/hr IVPB ONCE ONE Rx#: [id number] Meropenem 1 gm In Sodium 100 Chloride 0.9% 100 ml @ 33 .3 mls/hr IVPB Q8HR [facility] Rx#:[id number] Potassium Chloride 10 meq 100 In Water For Injection 1 100ml.bag @ 100 mls/hr IVPB Q1H [facility] Rx#: [id number] Potassium Chloride 20 meq In Water For Injection 1 100ml.bag @ 50 mls/hr IVPB Q2H [facility] Rx#: [id number] Tube Feeding 189 Other Output: Urine 910 Other: Voiding Method Indwelling Catheter # Bowel Movements 0 ABP, PAP, CO, CI - Last Documented Arterial Blood Pressure 111/51 - Exam Abdomen: Soft, nontender, nondistended - Labs CBC & Chem 7: 10/23/23 04:40 10/23/23 04:40 Labs: Abnormal Lab Results - Last 24 Hours (Table) 10/22/23 10/22/23 10/22/23 Range/Units 16:45 20:00 23:27 WBC (3.8-10.6) k/uL RBC (4.30-5.90) m/uL Hgb (13.0-17.5) gm/dL Hct (39.0-53.0) % RDW (11.5-15.5) % Neutrophils # (1.3-7.7) k/uL Monocytes # (0-1.0) k/uL ABG pH (7.35-7.45) ABG pO2 (83-108) mmHg ABG HCO3 (21-25) mmol/L ABG Total CO2 (19-24) mmol/L ABG O2 Saturation (94-97) % BUN (9-20) mg/dL Creatinine (0.66-1.25) mg/dL Glucose (74-99) mg/dL POC Glucose (mg/dL) 184 H 184 H 181 H (70-110) mg/dL Calcium (8.4-10.2) mg/dL AST (17-59) U/L ALT (4-49) U/L Total Protein (6.3-8.2) g/dL Albumin (3.5-5.0) g/dL 10/22/23 10/22/23 10/23/23 Range/Units 23:33 23:40 03:46 WBC (3.8-10.6) k/uL RBC (4.30-5.90) m/uL Hgb (13.0-17.5) gm/dL Hct (39.0-53.0) % RDW (11.5-15.5) % Neutrophils # (1.3-7.7) k/uL Monocytes # (0-1.0) k/uL ABG pH (7.35-7.45) ABG pO2 (83-108) mmHg ABG HCO3 (21-25) mmol/L ABG Total CO2 (19-24) mmol/L ABG O2 Saturation (94-97) % BUN 89 H (9-20) mg/dL Creatinine 2.11 H (0.66-1.25) mg/dL Glucose 164 H (74-99) mg/dL POC Glucose (mg/dL) 177 H 198 H (70-110) mg/dL Calcium 7.2 L (8.4-10.2) mg/dL AST (17-59) U/L ALT (4-49) U/L Total Protein (6.3-8.2) g/dL Albumin (3.5-5.0) g/dL 10/23/23 10/23/23 10/23/23 Range/Units 04:40 04:40 05:19 WBC 18.2 H (3.8-10.6) k/uL RBC 2.69 L (4.30-5.90) m/uL Hgb 8.3 L (13.0-17.5) gm/dL Hct 25.1 L (39.0-53.0) % RDW 17.6 H (11.5-15.5) % Neutrophils # 13.9 H (1.3-7.7) k/uL Monocytes # 1.3 H (0-1.0) k/uL ABG pH 7.53 H (7.35-7.45) ABG pO2 82 L (83-108) mmHg ABG HCO3 29 H (21-25) mmol/L ABG Total CO2 30 H (19-24) mmol/L ABG O2 Saturation 97.1 H (94-97) % BUN 91 H (9-20) mg/dL Creatinine 2.19 H (0.66-1.25) mg/dL Glucose 171 H (74-99) mg/dL POC Glucose (mg/dL) (70-110) mg/dL Calcium 7.2 L (8.4-10.2) mg/dL AST 281 H (17-59) U/L ALT 85 H (4-49) U/L Total Protein 5.0 L (6.3-8.2) g/dL Albumin 2.1 L (3.5-5.0) g/dL 10/23/23 10/23/23 Range/Units 10:16 11:47 WBC (3.8-10.6) k/uL RBC (4.30-5.90) m/uL Hgb (13.0-17.5) gm/dL Hct (39.0-53.0) % RDW (11.5-15.5) % Neutrophils # (1.3-7.7) k/uL Monocytes # (0-1.0) k/uL ABG pH (7.35-7.45) ABG pO2 (83-108) mmHg ABG HCO3 (21-25) mmol/L ABG Total CO2 (19-24) mmol/L ABG O2 Saturation (94-97) % BUN (9-20) mg/dL Creatinine (0.66-1.25) mg/dL Glucose (74-99) mg/dL POC Glucose (mg/dL) 212 H 215 H (70-110) mg/dL Calcium (8.4-10.2) mg/dL AST (17-59) U/L ALT (4-49) U/L Total Protein (6.3-8.2) g/dL Albumin (3.5-5.0) g/dL Assessment and Plan (1) GI bleed Narrative/Plan: 77-year-old female with GI bleed after cardiac arrest. Continue monitoring for recurrent bleeding. No endoscopy planned at this time. Will follow. Current Visit: Yes Status: Acute Code(s): K92.2 - GASTROINTESTINAL HEMO RRHAGE, UNSPECIFIED SNOMED Code(s): 56142958
--- NOTE | 2023-10-23 13:30 | P.PN ---
Subjective Progress Note Date: 10/23/23 The patient is seen in neurologic follow-up on October 23, 2023, in cross coverage for Dr. Matos, in collaboration with Gail Hernandez, via teleneurology. The patient's chart has been reviewed. Case is discussed with the patient's nurse who is present at the bedside at the time of evaluation. She reports that the patient has not had any significant changes. He was sedated with Precedex because of elevated heart rate. The patient is receiving 0.4 mg of Precedex. According to nursing, the family has changed the patient's CODE STATUS back to full code. CT scan of the brain was performed on October 19. There is no reported evidence of acute ischemia. The patient is on no sedation. The patient continues to be nonresponsive. Cardiac arrest occurred, twice on October 14, 2023. Total downtime was thought to be approximately 15-20 minutes. EEG was performed and revealed no evidence of seizure activity. There was noted to be moderate to severe, generalized slowing. Nursing does not report any seizure-like activity. There is no family present at the bedside at the time of this evaluation. Objective - Vital Signs Vital signs: Vital Signs Temp 97.7 F 10/23/23 08:00 Pulse 96 10/23/23 12:06 Resp 37 H 10/23/23 12:00 BP 124/74 10/23/23 12:00 Pulse Ox 95 10/23/23 12:00 FiO2 50 10/23/23 12:00 Intake & Output 10/22/23 10/23/23 10/23/23 17:59 06:59 18:59 Intake Total 469 Output Total 910 Balance -441 Weight Intake: IV 280 0.9 60 Invasive Line 6 10 Invasive Line 9 10 Magnesium Sulfate-D5w Pmx 1 gm In Dextrose/Water 1 100ml.bag @ 100 mls/hr IVPB ONCE ONE Rx#: [id number] Meropenem 1 gm In Sodium 100 Chloride 0.9% 100 ml @ 33 .3 mls/hr IVPB Q8HR [facility] Rx#:[id number] Potassium Chloride 10 meq 100 In Water For Injection 1 100ml.bag @ 100 mls/hr IVPB Q1H [facility] Rx#: [id number] Potassium Chloride 20 meq In Water For Injection 1 100ml.bag @ 50 mls/hr IVPB Q2H [facility] Rx#: [id number] Tube Feeding 189 Other Output: Urine 910 Other: Voiding Method Indwelling Catheter # Bowel Movements 0 ABP, PAP, CO, CI - Last Documented Arterial Blood Pressure 111/51 - Exam General: The patient is reclining in the bed. He is intubated. He is in no acute distress. HEENT: Head is atraumatic, normocephalic. Fundus not visualized. There is no scleral icterus. Mucous membranes are moist. Heart: Irregularly irregular. Lungs: Patient is breathing over the vent. His respiratory rate is at approximately 38 Extremities: Patient has diffuse, severe generalized edema Neurological examination Mental status: The patient is not responsive to verbal or noxious stimulation. There is no eye-opening. He does not follow commands. Cranial nerves: Pupils are equal at 2 mm and nonreactive. There is no blink to visual threat. Oculocephalic reflexes are intact. Corneal reflex is weak bilaterally, left greater than right. Patient has a cough/gag, with deep suctioning. Motor: Extremities are flaccid Sensation: There is no response to noxious stimulation of all 4 extremities Deep tendon reflexes: Not assessed at this time secondary to marked edema. Plan tar responses are minimally reactive and downgoing. - Labs CBC & Chem 7: 10/23/23 04:40 10/23/23 04:40 Labs: Abnormal Lab Results - Last 24 Hours (Table) 10/22/23 10/22/23 10/22/23 Range/Units 16:45 20:00 23:27 WBC (3.8-10.6) k/uL RBC (4.30-5.90) m/uL Hgb (13.0-17.5) gm/dL Hct (39.0-53.0) % RDW (11.5-15.5) % Neutrophils # (1.3-7.7) k/uL Monocytes # (0-1.0) k/uL ABG pH (7.35-7.45) ABG pO2 (83-108) mmHg ABG HCO3 (21-25) mmol/L ABG Total CO2 (19-24) mmol/L ABG O2 Saturation (94-97) % BUN (9-20) mg/dL Creatinine (0.66-1.25) mg/dL Glucose (74-99) mg/dL POC Glucose (mg/dL) 184 H 184 H 181 H (70-110) mg/dL Calcium (8.4-10.2) mg/dL AST (17-59) U/L ALT (4-49) U/L Total Protein (6.3-8.2) g/dL Albumin (3.5-5.0) g/dL 10/22/23 10/22/23 10/23/23 Range/Units 23:33 23:40 03:46 WBC (3.8-10.6) k/uL RBC (4.30-5.90) m/uL Hgb (13.0-17.5) gm/dL Hct (39.0-53.0) % RDW (11.5-15.5) % Neutrophils # (1.3-7.7) k/uL Monocytes # (0-1.0) k/uL ABG pH (7.35-7.45) ABG pO2 (83-108) mmHg ABG HCO3 (21-25) mmol/L ABG Total CO2 (19-24) mmol/L ABG O2 Saturation (94-97) % BUN 89 H (9-20) mg/dL Creatinine 2.11 H (0.66-1.25) mg/dL Glucose 164 H (74-99) mg/dL POC Glucose (mg/dL) 177 H 198 H (70-110) mg/dL Calcium 7.2 L (8.4-10.2) mg/dL AST (17-59) U/L ALT (4-49) U/L Total Protein (6.3-8.2) g/dL Albumin (3.5-5.0) g/dL 10/23/23 10/23/23 10/23/23 Range/Units 04:40 04:40 05:19 WBC 18.2 H (3.8-10.6) k/uL RBC 2.69 L (4.30-5.90) m/uL Hgb 8.3 L (13.0-17.5) gm/dL Hct 25.1 L (39.0-53.0) % RDW 17.6 H (11.5-15.5) % Neutrophils # 13.9 H (1.3-7.7) k/uL Monocytes # 1.3 H (0-1.0) k/uL ABG pH 7.53 H (7.35-7.45) ABG pO2 82 L (83-108) mmHg ABG HCO3 29 H (21-25) mmol/L ABG Total CO2 30 H (19-24) mmol/L ABG O2 Saturation 97.1 H (94-97) % BUN 91 H (9-20) mg/dL Creatinine 2.19 H (0.66-1.25) mg/dL Glucose 171 H (74-99) mg/dL POC Glucose (mg/dL) (70-110) mg/dL Calcium 7.2 L (8.4-10.2) mg/dL AST 281 H (17-59) U/L ALT 85 H (4-49) U/L Total Protein 5.0 L (6.3-8.2) g/dL Albumin 2.1 L (3.5-5.0) g/dL 10/23/23 10/23/23 Range/Units 10:16 11:47 WBC (3.8-10.6) k/uL RBC (4.30-5.90) m/uL Hgb (13.0-17.5) gm/dL Hct (39.0-53.0) % RDW (11.5-15.5) % Neutrophils # (1.3-7.7) k/uL Monocytes # (0-1.0) k/uL ABG pH (7.35-7.45) ABG pO2 (83-108) mmHg ABG HCO3 (21-25) mmol/L ABG Total CO2 (19-24) mmol/L ABG O2 Saturation (94-97) % BUN (9-20) mg/dL Creatinine (0.66-1.25) mg/dL Glucose (74-99) mg/dL POC Glucose (mg/dL) 212 H 215 H (70-110) mg/dL Calcium (8.4-10.2) mg/dL AST (17-59) U/L ALT (4-49) U/L Total Protein (6.3-8.2) g/dL Albumin (3.5-5.0) g/dL Assessment and Plan Assessment: Status post cardiac arrest x 2, on 10/14/2023 with ventricular tachycardia and ventricular fibrillation. Downtime reported about 7-9 minutes the first time, and about 10 to 15 minutes during cardiac catheterization. Probable severe anoxic encephalopathy. The patient is now 9 days status postcardiac arrest. He continues to be unresponsive. Brainstem reflexes continue to be intact. There is no evidence of cortical activity. Overall metabolic status continues to decline Prognosis poor * Acute hypoxic respiratory failure secondary to cardiac arrest, on mechanical ventilation * Longstanding history of seizure disorder/epilepsy. * Abnormal EEG. * Status post cardiac catheterization for acute lateral ST segment elevation myocardial infarction and the patient underwent emergent cardiac catheterization. The patient underwent a complicated coronary intervention requiring Impella for hemodynamic support, stenting of the left main, circumflex, proximal and mid RCA. A total of 5 stents were inserted. * Upper GI bleeding related to various antiplatelet agents and anticoagulation patient is now off heparin he is on aspirin and Plavix * Acute blood loss anemia requiring transfusion * Acute kidney injury, could be cardiorenal in nature, getting worse. * CHF, with EF 20% * Pneumonia * Acute hypoxic metabolic encephalopathy * History of COVID-19 pneumonia, recovering * History of seizure disorder * Hypothyroidism * Hypertension * Ex-smoke Plan: 1. Unfortunately, because there was no family present at the bedside this morning, neurology was unable to have a discussion with them regarding the patient's prognosis 2. Consider hospice consultation 3. Dr. Hylton will assume neurologic coverage of this patient as of October 24, 2023. Time with Patient: Less than 30 (25 minutes were spent caring for this patient today including, obtaining a history, examining the patient, reviewing chart documentation, labs and creating this note)
--- NOTE | 2023-10-23 13:53 | P.PN ---
Subjective patient is a 77-year-old gentleman past medical history significant for hypothyroidism, hypertension who presented to the ER for generalized weakness and fall. Patient was brought in by family members, apparently patient was trying to use the restroom when he lost all his strength and slumped to the ground. There was no complaint of any loss of consciousness. No complaint of weakness of any extremity. Family did not notice any slurred speech or facial droop. There was no complaint of fever or chills. No complaint of nausea, vomiting, abdominal pain. Patient's family tried to help him to get up but they were unable to lift him. They called EMS and they brought him to ER. Initial lab work done in the ER showed WBC 10.5, hemoglobin 15.2, platelet count 165, sodium 118, potassium 4.1, BUN 24, creatinine 1.26, plasma lactate 4.1, tro ponin 0.012 UA negative for any infection EKG done in the ER showed heart rate of 75, no ST segment elevation or depression seen, no T-wave inversions seen. Chest x-ray done in the ER no acute cardiopulmonary process CT head done showed no acute intracranial process Patient admitted to internal medicine service 09/29. Patient seen and examined. COVID-19 came back positive. Currently on 4 L of oxygen. Sodium this morning is 121. Still complain lethargy and weakness. Patient also diagnosed with COVID 09/30. Patient seen and examined. Blood work done this morning showed WBC 14.9, hemoglobin 12.9, platelet count 146, sodium 126, potassium 3.9, BUN 15, creatinine 0.68. States he feels much better. Shortness of breath is improved. 10/01. Patient seen and examined. Still on 15 L of oxygen via nonrebreather. States he feels better. Sodium level improved to 132, potassium 3.3, BUN 18, creatinine 0.65. Lethargy has improved. 10/02. Patient seen and examined. Currently on 8 L of oxygen via high flow nasal cannula. States he feels much better, breathing is improved, pulmonology recommended sniff test to look for right diaphragm paralysis 10/03. Patient seen and examined. Continues to be on 15 L of oxygen. Patient is not lethargic, states gets short of breath on exertion. Denies any nausea or vomiting 10/04/2023 Patient seen and evaluated in follow-up today continues to be dyspneic maintained on high flow oxygen is being transferred to [facility]. Per nursing staff he continues to remove his nasal cannula as well as nonrebreather and respiratory following recommending i continuing this for a few hours. Patient has noted to be COVID-positive. Sodium is slightly low at 132 potassium was 3.3 yesterday and replaced awaiting follow-up labs. Patient with prolonged hospitalization and continued weakness will likely need ECF once stabilized. 10/05/2023 Patient is seen in follow-up this morning continues on Airvo with maximum oxygen at 60/90 maintaining oxygen saturations in the 88 percentile range. Patient reports having worsening shortness of breath although appears somewhat confused at times. Discussed CODE STATUS with the patient and he wishes to remain full code. Patient is agreeable to mechanical ventilation if required. Patient continues to remove his oxygen from his face desats very quickly. Will get a chest x-ray and continue to monitor closely. Pulmonary and infectious disease following and patient is continued on cefepime with concerns of pneumonia. Patient is currently afebrile and denies chest pain or shortness of breath. Patient reports he is eating although not much of an appetite. 10/06/2023 Patient is seen in follow-up today was transferred to the ICU for respiratory decline per nursing staff as patient continued to have respiratory distress and low oxygen saturations becoming more hypoxic and confused. Patient is continued on Airvo max 60/90 with continued intermittent nonrebreather use. Patient is continued on steroids along with inhalers and pulmonary is following closely. Patient is afebrile with no reported chest pain or shortness of breath. Patient reports to tolerating diet although appears not to be eating very much at all. 10/07/2023 Patient is seen and evaluated in follow-up today continues in the ICU on high flow Airvo 60 L / 90% with oxygen saturations in the low 90s. On exam patient was found to have Airvo out of his nostrils and using nonrebreather and oxygen saturation was 93%. Patient is maintained on antibiotics with infectious disease following closely along with pulmonary oil treater. CODE STATUS was addressed once again and patient wishes to remain full code. Wean FiO2 as t olerated. Encouraged oral intake. Patient to be evaluated by physical therapy once respiratory status improved and will need rehab. 10/09/2023 Patient lying in bed, mildly tachypneic with no chest pain He remains on Airvo 60 L/min Vital stable Remains on dexamethasone and Pepcid Resume of the care of the patient 10/12/2023 Patient with Covid infection and possible right lower lobe pneumonia finish her antibiotics. He does not need antiviral therapy but there is evidence of oral thrush and discovered covered with Diflucan and received nystatin as well. His leukocytosis stable about 18k, no fever. Patient also with fluid overload and hyponatremia sodium 1:30 status post 1 Samsca today, also patient is on IV Lasix 40 mg twice daily Patient currently is oxygen via nasal cannula saturating 88% which is improved from previous, airvo oxygen was stopped 10/13/2023 Patient is clinically stable. He is awake and alert not in distress his breathing is improving and currently he is on 4-5 L/m of oxygen which is a stable Has good air entry bilaterally. I discussed the case with pulmonary team and patient might be considered for discharge from their perspective is also on Diflucan and WBCs 18,000 Status post Samsca and sodium stable at 1:30, low potassium replaced I discussed the case with social media assistant and patient does not need a bone isolation for his Covid. However he is prior authorization Possible discharge in 24-48 hours 10/14/23 Patient mentation is at baseline No new complaints, no chest pain no significant dyspnea He remains on 5 L oxygen via nasal cannula WBC improved down to 12,000, hemoglobin 12, sodium slightly low at 127, glucose controlled. Ejection fraction 60-65% Remains on Diflucan. Today IV Lasix switched to by mouth 40 mg twice daily Discussed with case assistant, still pending placement. Still family having contacted staff. 10/15/2023 Patient condition deteriorated and patient developed CODE BLUE called for him and he underwent CPR per protocol with downtime estimated about 7 to 10 minutes He was taken emergently to the [facility] and a total of 5 stents placed into his coronary arteries. Postprocedure patient was taken to the ICU intubated and s edated Also he was started on Impella for hemodynamic support He was started also on aspirin, Brilinta and heparin drip Also patient developed leukocytosis up to 1 31,000 hemoglobin stable around 12. Sodium 129 Creatinine stable at 1.1 10/16/2023 Patient remains in the ICU sedated and intubated Today he lost about 400 to 500 mL of dark-colored fluid through his NG tube so heparin drip was stopped. While patient kept on aspirin and Brilinta History requires Impella in place with cardiology and critical care team following closely He remains on intubated on mechanical ventilation for respiratory support He has significant leukocytosis up to 33,000 and is currently covered with IV vancomycin and meropenem. He has been spiking fever today Also his creatinine jumped up to 1.9 and he developed acute kidney injury His condition remains critical Case discussed with staff and critical care team Patient remains in the ICU intubated and sedated, and he has been monitoring closely. They tried to wean him yesterday and he got agitated. His currently on sedative and propofol His ejection fraction is low indicating cardiogenic shock, EF is around 10 to 20% compared to 66% on the previous days. This is after the STEMI and cardiac arrest. Patient currently on Impella and small dose of Levophed with cardiology and critical care following closely. Stool wean him off Impella if that works then possibly stop Levophed and later on switched Impella to dobutamine this works. Patient does not need heparin drip and he is continued on a dual antiplatelet therapy and statin Also midodrine was added today. His condition remains critical 10/18/2023 pt condition is still critical and his response to treatment is guarded pt is still intubated , requring peep of 12 pt is hypotensive could not tolerate weaning pressores down still on aimpalla his wbc is 20k, hb dropped down to 6.3 and after 2 units of blood transfusion came up to 7.7 still on asprin and brillinta, on iv protnox bid and pepcid, on iv vancomycin, meropenem family may consider more palliative management management discussed with staff 10/19/2023 pt remains intubated and sedated on mechanical ventilation with pulmonary and critical care team are following and managing vent very closely he is still on high peep at 15 he is not suitable for weaning attempts yet he is having maroon stool with gi bleed , so heparin drip on hold also on protonix , surgery team recommend colonoscopy when hemodynamically stable his pressors were stopped and impalla went down to p6 10/20/2023 Patient remains intubated in the critical care unit Yesterday the Impella was removed. Still requiring small dose of pressors CT of the brain is negative for acute process EEG showing severe metabolic encephalopathy however there is some electrical activity suggestive of tendency toward seizure but no seizure activity. Keppra 500 mg twice daily was added. Patient also on meropenem. IV Lasix 40 mg every 8 hours. 10/21/2023 Patient remains intubated sedated with Critical care team following and monitoring closely and help in vent management He was placed off sedation today however there is no change in his mental stat us. No much response. Neurology on the case and is repeating EEG this morning. Patient currently he is off heparin drip continued on dual antiplatelet therapy with aspirin and Brilinta Also he is getting meropenem for antibiotic and Diflucan. On Keppra and midodrine I discussed the case with Dr. Toribio from cardiology today Patient remains intubated in the ICU. With pulmonary/critical care team following closely. He is off sedation today and from yesterday but does not show signs of waking up or communicating. Patient is less tachycardic but still tachypneic. He is afebrile. Blood pressure actually improved to 133/69 He is on IV Lasix 40 mg every 8 hours He is on Keppra 500 mg increased today to 750 mg. Continue with dual antiplatelet therapy 10/22/2022 Patient remains in the ICU intubated He is off sedation, there was no response and is not opening eyes or follow comm ands. Patient is afebrile. WBC is 18,000, hemoglobin 8.3, sodium 132, creatinine 2.1, He is on aspirin and Brilinta. Keppra 750 mg Objective - Vital Signs Vital signs: Vital Signs Temp 97.7 F 10/23/23 08:00 Pulse 85 10/23/23 10:00 Resp 31 H 10/23/23 10:00 BP 120/73 10/23/23 10:00 Pulse Ox 96 10/23/23 10:00 FiO2 50 10/23/23 10:00 Intake & Output 10/22/23 10/23/23 10/23/23 17:59 06:59 18:59 Intake Total 366 Output Total 485 Balance -119 Weight Intake: IV 240 0.9 40 Magnesium Sulfate-D5w Pmx 1 gm In Dextrose/Water 1 100ml.bag @ 100 mls/hr IVPB ONCE ONE Rx#: [id number] Meropenem 1 gm In Sodium 100 Chloride 0.9% 100 ml @ 33 .3 mls/hr IVPB Q8HR [place] Rx#:[id number] Potassium Chloride 10 meq 100 In Water For Injection 1 100ml.bag @ 100 mls/hr IVPB Q1H [facility] Rx#: [id number] Potassium Chloride 20 meq In Water For Injection 1 100ml.bag @ 50 mls/hr IVPB Q2H [facility] Rx#: [id number] Tube Feeding 126 Other Output: Urine 485 Other: Voiding Method # Bowel Movements 0 ABP, PAP, CO, CI - Last Documented Arterial Blood Pressure 111/51 - Exam GENERAL: The patient is sedated and intubated HEENT: Pupils are round and equally reacting to light. EOMI. No scleral icterus. No conjunctival pallor. Normocephalic, atraumatic. No pharyngeal erythema. No thyromegaly. CARDIOVASCULAR: S1 and S2 present. No murmurs, rubs, or gallops. PULMONARY: Chest is clear to auscultation, no wheezing , no crackles. ABDOMEN: Soft, nontender, nondistended, normoactive bowel sounds. No palpable organomegaly. MUSCULOSKELETAL: No joint swelling or deformity. EXTREMITIES: No cyanosis, clubbing, or pedal edema. NEUROLOGICAL: Gross neurological examination did not reveal any focal deficits. SKIN: No rashes. no petechiae. - Labs CBC & Chem 7: 10/23/23 04:40 10/23/23 04:40 Labs: Abnormal Lab Results - Last 24 Hours (Table) 10/22/23 10/22/23 10/22/23 Range/Units 06:45 11:35 16:45 WBC 15.7 H (3.8-10.6) k/uL RBC (4.30-5.90) m/uL Hgb (13.0-17.5) gm/dL Hct (39.0-53.0) % RDW (11.5-15.5) % Neutrophils # (1.3-7.7) k/uL Neutrophils # (Manual) 11.40 H (1.3-7.7) k/uL Monocytes # (0-1.0) k/uL Metamyelocytes # (Man) 0.31 H (0) k/uL Myelocytes # (Manual) 0.16 H (0) k/uL Nucleated RBCs 1 H (0-0) /100 WBC ABG pH (7.35-7.45) ABG pO2 (83-108) mmHg ABG HCO3 (21-25) mmol/L ABG Total CO2 (19-24) mmol/L ABG O2 Saturation (94-97) % BUN (9-20) mg/dL Creatinine (0.66-1.25) mg/dL Glucose (74-99) mg/dL POC Glucose (mg/dL) 165 H 184 H (70-110) mg/dL Calcium (8.4-10.2) mg/dL AST (17-59) U/L ALT (4-49) U/L Total Protein (6.3-8.2) g/dL Albumin (3.5-5.0) g/dL 10/22/23 10/22/23 10/22/23 Range/Units 20:00 23:27 23:33 WBC (3.8-10.6) k/uL RBC (4.30-5.90) m/uL Hgb (13.0-17.5) gm/dL Hct (39.0-53.0) % RDW (11.5-15.5) % Neutrophils # (1.3-7.7) k/uL Neutrophils # (Manual) (1.3-7.7) k/uL Monocytes # (0-1.0) k/uL Metamyelocytes # (Man) (0) k/uL Myelocytes # (Manual) (0) k/uL Nucleated RBCs (0-0) /100 WBC ABG pH (7.35-7.45) ABG pO2 (83-108) mmHg ABG HCO3 (21-25) mmol/L ABG Total CO2 (19-24) mmol/L ABG O2 Saturation (94-97) % BUN (9-20) mg/dL Creatinine (0.66-1.25) mg/dL Glucose (74-99) mg/dL POC Glucose (mg/dL) 184 H 181 H 177 H (70-110) mg/dL Calcium (8.4-10.2) mg/dL AST (17-59) U/L ALT (4-49) U/L Total Protein (6.3-8.2) g/dL Albumin (3.5-5.0) g/dL 10/22/23 10/23/23 10/23/23 Range/Units 23:40 03:46 04:40 WBC 18.2 H (3.8-10.6) k/uL RBC 2.69 L (4.30-5.90) m/uL Hgb 8.3 L (13.0-17.5) gm/dL Hct 25.1 L (39.0-53.0) % RDW 17.6 H (11.5-15.5) % Neutrophils # 13.9 H (1.3-7.7) k/uL Neutrophils # (Manual) (1.3-7.7) k/uL Monocytes # 1.3 H (0-1.0) k/uL Metamyelocytes # (Man) (0) k/uL Myelocytes # (Manual) (0) k/uL Nucleated RBCs (0-0) /100 WBC ABG pH (7.35-7.45) ABG pO2 (83-108) mmHg ABG HCO3 (21-25) mmol/L ABG Total CO2 (19-24) mmol/L ABG O2 Saturation (94-97) % BUN 89 H (9-20) mg/dL Creatinine 2.11 H (0.66-1.25) mg/dL Glucose 164 H (74-99) mg/dL POC Glucose (mg/dL) 198 H (70-110) mg/dL Calcium 7.2 L (8.4-10.2) mg/dL AST (17-59) U/L ALT (4-49) U/L Total Protein (6.3-8.2) g/dL Albumin (3.5-5.0) g/dL 10/23/23 10/23/23 10/23/23 Range/Units 04:40 05:19 10:16 WBC (3.8-10.6) k/uL RBC (4.30-5.90) m/uL Hgb (13.0-17.5) gm/dL Hct (39.0-53.0) % RDW (11.5-15.5) % Neutrophils # (1.3-7.7) k/uL Neutrophils # (Manual) (1.3-7.7) k/uL Monocytes # (0-1.0) k/uL Metamyelocytes # (Man) (0) k/uL Myelocytes # (Manual) (0) k/uL Nucleated RBCs (0-0) /100 WBC ABG pH 7.53 H (7.35-7.45) ABG pO2 82 L (83-108) mmHg ABG HCO3 29 H (21-25) mmol/L ABG Total CO2 30 H (19-24) mmol/L ABG O2 Saturation 97.1 H (94-97) % BUN 91 H (9-20) mg/dL Creatinine 2.19 H (0.66-1.25) mg/dL Glucose 171 H (74-99) mg/dL POC Glucose (mg/dL) 212 H (70-110) mg/dL Calcium 7.2 L (8.4-10.2) mg/dL AST 281 H (17-59) U/L ALT 85 H (4-49) U/L Total Protein 5.0 L (6.3-8.2) g/dL Albumin 2.1 L (3.5-5.0) g/dL Assessment and Plan Assessment: Emergent cardiac cath and 5 stents placement Cardiogenic shock and possible septic shock secondary to above Acute hypoxic respiratory failure requiring intubation and mechanical ventilation acute GI Bleed requring blood transufion Acute kidney injury Hyponatremia secondary to poor oral intake, COVID-19 Acute hypoxic respiratory failure secondary to COVID-19, now requiring oxygen via nasal cannula. Altered mental status, with toxic metabolic encephalopathy likely secondary to hypoxia as patient continues to remove oxygen mask from his face Generalized weakness Rhabdomyolysis. Improved Fall Urinary retention requiring indwelling Rosales catheter Hypothyroidism Hypertension Obesity with a BMI of 35.0 acute STEMI s/p Plan: Patient is continued on mechanical ventilation. Undergoing sedation holiday by pulmonary team. However patients with no much recovery Continue with aspirin and Brilinta Cardiology consult following closely Pulmonary/critical care team following closely Patient s/p discontinue Impella per cardiology team Continue with insulin coverage Summer consult is on the case including ID team, pulmonary and nephrology Labs and medication were reviewed.. Continue same treatment. Continue with symptomatic treatment. Resume home medication. Monitor labs and vitals. DVT and GI prophylaxis. Further recommendations as per clinical course of the patient DVT prophylaxis: Subcutaneous Lovenox GI Prophylaxis: Pepcid PT/OT: heather prognosis is guarded
--- NOTE | 2023-10-23 14:20 | P.PN ---
Subjective Progress Note Date: 10/23/23 Principal diagnosis: Reason for follow-up is COVID-19 and pneumonia Patient is a 77-year-old male with a past medical history significant for hypertension seizure disorder hypothyroidism patient has been brought into the hospital for evaluation of generalized weakness patient was noticed to be on the bathroom floor after apparently patient fell down, patient did tested positive for COVID-19, initial chest x-ray reported negative.Patient did have significant change in his clinical condition and did have a cardiac arrest on 10/14/2023 the patient was taken to [facility] and did have PTCA and stenting x 5 subsequently patient has been admitted to ICU. On today's evaluation that is 10/23/2023,the patient did have low-grade fever 100.2 at midnight patient is afebrile since 9 patient is a intubated on the vent FiO2 stable at 50% no significant purulent secretions through the ET patient not requiring any pressor support tolerating his tube feeds did have some diarrhea but no worsening output reported by the nursing staff mentation remains to be an issue. Patient white count slightly up to 18.2 today, creatinine is 2.19 Objective - Vital Signs Vital signs: Vital Signs Temp 97.7 F 10/23/23 08:00 Pulse 96 10/23/23 12:06 Resp 37 H 10/23/23 12:00 BP 124/74 10/23/23 12:00 Pulse Ox 95 10/23/23 12:00 FiO2 50 10/23/23 12:00 Intake & Output 10/22/23 10/23/23 10/23/23 17:59 06:59 18:59 Intake Total 469 Output Total 910 Balance -441 Weight Intake: IV 280 0.9 60 Invasive Line 6 10 Invasive Line 9 10 Magnesium Sulfate-D5w Pmx 1 gm In Dextrose/Water 1 100ml.bag @ 100 mls/hr IVPB ONCE ONE Rx#: [id number] Meropenem 1 gm In Sodium 100 Chloride 0.9% 100 ml @ 33 .3 mls/hr IVPB Q8HR [facility] Rx#:[id number] Potassium Chloride 10 meq 100 In Water For Injection 1 100ml.bag @ 100 mls/hr IVPB Q1H [place] Rx#: [id number] Potassium Chloride 20 meq In Water For Injection 1 100ml.bag @ 50 mls/hr IVPB Q2H [facility] Rx#: [id number] Tube Feeding 189 Other Output: Urine 910 Other: Voiding Method Indwelling Catheter # Bowel Movements 0 ABP, PAP, CO, CI - Last Documented Arterial Blood Pressure 111/51 - Exam GENERAL DESCRIPTION: An elderly male intubated on the vent RESPIRATORY SYSTEM: Unlabored breathing , decreased breath sounds at bases HEART: S1 S2 regular rate and rhythm , ABDOMEN: Soft , no tenderness EXTREMITIES: No edema feet - Labs CBC & Chem 7: 10/23/23 04:40 10/23/23 04:40 Labs: Abnormal Lab Results - Last 24 Hours (Table) 10/22/23 10/22/23 10/22/23 Range/Units 16:45 20:00 23:27 WBC (3.8-10.6) k/uL RBC (4.30-5.90) m/uL Hgb (13.0-17.5) gm/dL Hct (39.0-53.0) % RDW (11.5-15.5) % Neutrophils # (1.3-7.7) k/uL Monocytes # (0-1.0) k/uL ABG pH (7.35-7.45) ABG pO2 (83-108) mmHg ABG HCO3 (21-25) mmol/L ABG Total CO2 (19-24) mmol/L ABG O2 Saturation (94-97) % BUN (9-20) mg/dL Creatinine (0.66-1.25) mg/dL Glucose (74-99) mg/dL POC Glucose (mg/dL) 184 H 184 H 181 H (70-110) mg/dL Calcium (8.4-10.2) mg/dL AST (17-59) U/L ALT (4-49) U/L Total Protein (6.3-8.2) g/dL Albumin (3.5-5.0) g/dL 10/22/23 10/22/23 10/23/23 Range/Units 23:33 23:40 03:46 WBC (3.8-10.6) k/uL RBC (4.30-5.90) m/uL Hgb (13.0-17.5) gm/dL Hct (39.0-53.0) % RDW (11.5-15.5) % Neutrophils # (1.3-7.7) k/uL Monocytes # (0-1.0) k/uL ABG pH (7.35-7.45) ABG pO2 (83-108) mmHg ABG HCO3 (21-25) mmol/L ABG Total CO2 (19-24) mmol/L ABG O2 Saturation (94-97) % BUN 89 H (9-20) mg/dL Creatinine 2.11 H (0.66-1.25) mg/dL Glucose 164 H (74-99) mg/dL POC Glucose (mg/dL) 177 H 198 H (70-110) mg/dL Calcium 7.2 L (8.4-10.2) mg/dL AST (17-59) U/L ALT (4-49) U/L Total Protein (6.3-8.2) g/dL Albumin (3.5-5.0) g/dL 10/23/23 10/23/23 10/23/23 Range/Units 04:40 04:40 05:19 WBC 18.2 H (3.8-10.6) k/uL RBC 2.69 L (4.30-5.90) m/uL Hgb 8.3 L (13.0-17.5) gm/dL Hct 25.1 L (39.0-53.0) % RDW 17.6 H (11.5-15.5) % Neutrophils # 13.9 H (1.3-7.7) k/uL Monocytes # 1.3 H (0-1.0) k/uL ABG pH 7.53 H (7.35-7.45) ABG pO2 82 L (83-108) mmHg ABG HCO3 29 H (21-25) mmol/L ABG Total CO2 30 H (19-24) mmol/L ABG O2 Saturation 97.1 H (94-97) % BUN 91 H (9-20) mg/dL Creatinine 2.19 H (0.66-1.25) mg/dL Glucose 171 H (74-99) mg/dL POC Glucose (mg/dL) (70-110) mg/dL Calcium 7.2 L (8.4-10.2) mg/dL AST 281 H (17-59) U/L ALT 85 H (4-49) U/L Total Protein 5.0 L (6.3-8.2) g/dL Albumin 2.1 L (3.5-5.0) g/dL 10/23/23 10/23/23 Range/Units 10:16 11:47 WBC (3.8-10.6) k/uL RBC (4.30-5.90) m/uL Hgb (13.0-17.5) gm/dL Hct (39.0-53.0) % RDW (11.5-15.5) % Neutrophils # (1.3-7.7) k/uL Monocytes # (0-1.0) k/uL ABG pH (7.35-7.45) ABG pO2 (83-108) mmHg ABG HCO3 (21-25) mmol/L ABG Total CO2 (19-24) mmol/L ABG O2 Saturation (94-97) % BUN (9-20) mg/dL Creatinine (0.66-1.25) mg/dL Glucose (74-99) mg/dL POC Glucose (mg/dL) 212 H 215 H (70-110) mg/dL Calcium (8.4-10.2) mg/dL AST (17-59) U/L ALT (4-49) U/L Total Protein (6.3-8.2) g/dL Albumin (3.5-5.0) g/dL Assessment and Plan (1) COVID-19 Current Visit: Yes Status: Acute Code(s): U07.1 - COVID-19 SNOMED Code(s): 106815674 (2) Sepsis Current Visit: Yes Status: Acute Code(s): A41.9 - SEPSIS, UNSPECIFIED ORGANISM SNOMED Code(s): 50258162 (3) Pneumonia Current Visit: Yes Status: Acute Code(s): J18.9 - PNEUMONIA, UNSPECIFIED ORGANISM SNOMED Code(s): 804018333 (4) Penicillin allergy Current Visit: Yes Status: Acute Code(s): Z88.0 - ALLERGY STATUS TO PENICILLIN SNOMED Code(s): 45613426 (5) Thrush, oral Current Visit: Yes Status: Acute Code(s): B37.0 - CANDIDAL STOMATITIS SNOMED Code(s): 02796083 Plan: 1patient did have significant changes in clinical condition he did have a cardiac arrest on 10/14/2023 Patient Was Taken to the [facility] status post PTCA and stenting x 5 patient did have a new fever and is requiring pressor support 2- blood cultures and sputum for Gram stain culture are so far negative 3-patient did have resolution of his fever white count is trending up which will be monitored closely, patient to continue with the meropenem and continue supportive care prognosis remains to be guarded Dictation was produced using [employer] dictation software. please excuse any grammatical, word or spelling errors. Time with Patient: Less than 30
--- NOTE | 2023-10-23 14:35 | P.PN ---
Subjective Progress Note Date: 10/23/23 ACS This is a 77-year-old gentleman with history of hypertension and dyslipidemia and seizure disorder and thyroid disease and prior history of smoking. The patient was admitted to the hospital initially with a change in mental status after he fell in the bathroom at home. The patient lives with his grandson. We consulted to see the patient because of cardiac arrest with ventricular fibrillation/ventricular tachycardia where the patient subsequently received CPR according to the nurse taking care of him for about 12 hours and then he was intubated and he was brought to the intensive care unit. The history was taken from the chart because the patient was already intubated when he was seen in the intensive care unit. He was found on the floor by his family for several hours. He was weak. He attempted to get up but he could not. EMS was called and the patient was brought to the emergency department by ambulance. He underwent further investigation including CT scan of the brain which showed no acute abnormalities and EKG showed sinus mechanism with nonspecific ST and T wave abnormalities. Hemoglobin was within normal limits. Electrolytes were within normal limits beside hyponatremia. The chest x-ray showed no acute abnormalities beside elevated right hemidiaphragm. He was diagnosed with acute hypoxic respiratory failure and also he had recent coronavirus infection. During his hospital stay he had a cardiac arrest with V-fib. He was converted to normal sinus mechanism after he received CPR and received amiodarone and lidocaine. I did review the EKG when I I was called to see the patient and that showed lateral ST segment elevation myocardial infarction. STEMI code was called. The patient was brought to the cardiac [facility] immediately and he underwent an emergent heart catheterization and that revealed severe disease involving the ostial and proximal right coronary artery with occluded left circumflex appeared to be an acute occlusion. The lesion in the left circumflex was extremely complex and was very hard to cross. During the procedure he had another episode of cardiac arrest with pulseless electrical activities and we lost the floor in the left coronary system. The patient ended having stenting in the left main to LAD and stenting of the obtuse marginal branch and stenting of the right coronary artery and Impella CP was placed to support the pressure. Please refer to the procedure note for further details. The examination showed distant heart sounds with regular rhythm and soft nontender abdomen and diminished breathing sounds bilaterally. No edema was noted in the lower extremities October 15, 2023 The patient was seen and evaluated this morning. He continues to be intubated on mechanical ventilation. The chest x-ray was reviewed. He is off vasopressors but continues to be on norepinephrine which is in process to weaned from norepinephrine. He continues to be on heparin and Aggrastat. He is on dual antiplatelet therapy along with a statin. Hemodynamically he is overall slightly better. He has been maintaining normal sinus mechanism. From the cardiovascular standpoint of view I will continue the current medical regimen and switch the patient to oral amiodarone and DC lidocaine and stop Aggrastat at 18 hours. Apparently he cannot be on any beta-yazmin or FLORIN inhibitor at this point giving the low blood pressure. The examination is remarkable for regular rhythm with a distant heart sounds and diminished breathing sounds bilaterally and he does have a good Doppler signal in the left foot. October 16, 2023 The patient was seen and evaluated this morning. He continues to be on norepinephrine only at the small dose. His hemoglobin dropped to around 7 with ongoing to give the patient 1 unit of packed RBC hopefully we can wean him from norepinephrine and also hopefully it will improve the section of the arm on the Impella. Neurologically he is slightly better after the sedation was weaned. He continues to be on dual antiplatelet therapy. He continues to be on amiodarone. He continues to be on statin. Urine output has been marginal. I had a long discussion with the family in details about the condition and about the prognosis overall and they are in full understanding the poor prognosis overall. The examination is remarkable for regular rhythm with a distant heart sounds and diminished breathing sounds bilaterally and bilateral lower extremities edema noted. We had to stop the heparin because of gastrointestinal bleeding. The last episode of gastrointestinal bleeding was earlier this morn ing. 10/17/2023 Patient seen and examined at bedside this a.m. He is on norepinephrine 0.02. He is on Impella with P7 with 3 L output. MAP around 65 to 70 mmHg. Patient does not have any [place] catheter in place. Bedside echocardiogram showed an EF of 10 to 15% with normally positioned Impella. IVC is not dilated Inputs and outputs: Around 500 cc of urine last 24 hours with total of 700 cc positive fluid balance. Labs: Hb 8.2, creatinine 1.75, BUN 53, sodium 132. 10/18/2023 Patient was seen and examined at bedside this a.m. Yesterday by evening Impella was reduced to P4 and norepinephrine to 0.04. Overnight patient had low blood pressure. We attempted to wean off norepinephrine and start him on dobutamine which patient could not tolerate. Eventually dobutamine was discontinued and patient was put back on norepinephrine. Patient has been requiring P7 Impella with 3 L output. At present 4 PM 10/18/2023, patient is off norepinephrine, P7 Impella 3 L output. Janee cardiac index 1.9 L/min/m, Janee cardiac output 4.9 L/min, stroke-volume 50 ml. Patient's hemoglobin dropped from 8 to 7-6.3 today. Patient also had black watery stools. He required 1 unit of blood transfusion. His IV heparin was discontinued which was started for Impella. 10/19/23 Seen and examined at bedside this a.m. Today patient has been doing well. We have been able to wean him down to P5 and he is not requiring any norepinephrine. Patient has a good pulse pressure with SBP 120, diastolic blood pressure 50s. Patient's urine output has been 25 to 30 cc/h. He appears mildly volume overloaded. Will give him 1 dose of IV Lasix 40 mg. His renal function has been slightly declining with creatinine trending up Today arterial sat 95%, mixed venous sat 51.7%, hemoglobin 7.4, heart rate 86. Cardiac output 6.3 L/min, cardiac index 2.5 L/min/m. Cardiac index is improved from yesterday with lesser power requirement on Impella and no requirement of IV pressors. Echocardiogram shows an EF of 15 to 20% with well-placed Impella. This is slightly improved from 10 to 15% from presentation. 10/20/2023 Patient Impella was removed yesterday. Post Impella it was noticed that patient's left common [place] vein had thrombus for which aspiration thrombectomy was done but was not able to aspirate 100% of clot. The arteriotomy site and the thrombus was secured wire covered stent in the left common femoral artery. Distal pulses since then and bilateral lower extremity has been intact. Today patient has been on low-dose norepinephrine which has been discontinued. His blood pressure has been 100 over 60s with maps of 60 to 70 mmHg. Patient is still maintaining on 20 mics of propofol. Hemoglobin was again less than 7 with black tarry stools. Patient received 1 unit of blood transfusion. PEEP is down to 10 mmHg Urine output 1.2 L 10/21/2023 Patient is off pressors and MAP is maintaining around 70 mmHg. Patient is having good urine output of around 2 L. Patient is off sedation but is not waking up. He is having a mild gag reflex. He is not responsive to deep pain stimuli. He is not withdrawing to pain. Hemoglobin stable with no further GI bleeding. 10/22/2023 Blood pressure 121/77, heart rate 103 bpm, irregular appears to be atrial fibrillation on telemetry monitoring. Hemoglobin stable at 8.2. No further GI bleeding without the use of IV heparin. BUN 78, creatinine 2.28. Creatinine is noted trending down. Appropriate urine output of around 1.1 L last 24 hours. Patient is on Lasix 40 mg IV 3 times daily. Patient has been on minimal sedation with very weak gag reflex. Neurology team performed 2 EEGs which showed background slow activity suggestive of severe encephalopathy. Assessment Cardiogenic Shock, s/p Impella. Suspected anoxic Brain injury with slow background activity on EEG suggestive of encephalopathy Left common femoral vein thrombectomy with covered stent deployment for achi eving patent hemostasis after Impella removal. Ischemic cardiomyopathy with EF 10-15% Acute anemia GI bleeding STEMI Acute total occlusion of the left circumflex proximally Severe disease involving the right coronary artery Cardiac arrest as described above Multiple risk factors including hypertension and dyslipidemia History of seizure Plan Continue aspirin, Plavix, statin Continue amiodarone orally Give the patient 1 unit of packed RBC if Hb <7. Ideally patient should be managed on IV heparin but unable to do so due to GI bleeding and low hemoglobin. Responding well to IV diuretics. Continue Lasix 40 mg 3 times daily. Discontinue midodrine as it will cause increase in afterload which might not be tolerated by patient's heart rate due to cardiomyopathy and low EF. Patient is not a candidate for EGD and colonoscopy at present due to hemodynamic instability. Neurology recommends hospice consult as they feel that patient has moderate to severe anoxic brain injury with EEG showing moderate to severe generalized slowing. Considering patient's anemia, active GI bleeding, cardiogenic shock, ventilator dependent respiratory failure with 50% FiO2, patient's overall prognosis is very poor. I have had a family discussion and have explained the patient's current condition. Objective - Vital Signs Vital signs: Vital Signs Temp 97.7 F 10/23/23 08:00 Pulse 90 10/23/23 14:00 Resp 36 H 10/23/23 14:00 BP 119/77 10/23/23 14:00 Pulse Ox 97 10/23/23 14:00 FiO2 50 10/23/23 14:00 Intake & Output 10/22/23 10/23/23 10/23/23 17:59 06:59 18:59 Intake Total 489 Output Total 1260 Balance -771 Weight Intake: IV 300 0.9 80 Invasive Line 6 10 Invasive Line 9 10 Magnesium Sulfate-D5w Pmx 1 gm In Dextrose/Water 1 100ml.bag @ 100 mls/hr IVPB ONCE ONE Rx#: [id number] Meropenem 1 gm In Sodium 100 Chloride 0.9% 100 ml @ 33 .3 mls/hr IVPB Q8HR [facility] Rx#:[id number] Potassium Chloride 10 meq 100 In Water For Injection 1 100ml.bag @ 100 mls/hr IVPB Q1H [facility] Rx#: [id number] Potassium Chloride 20 meq In Water For Injection 1 100ml.bag @ 50 mls/hr IVPB Q2H [facility] Rx#: [id number] Tube Feeding 189 Other Output: Urine 1260 Other: Voiding Method Indwelling Catheter # Bowel Movements 0 ABP, PAP, CO, CI - Last Documented Arterial Blood Pressure 111/51 - Labs CBC & Chem 7: 10/23/23 04:40 10/23/23 04:40 Labs: Abnormal Lab Results - Last 24 Hours (Table) 10/22/23 10/22/23 10/22/23 Range/Units 16:45 20:00 23:27 WBC (3.8-10.6) k/uL RBC (4.30-5.90) m/uL Hgb (13.0-17.5) gm/dL Hct (39.0-53.0) % RDW (11.5-15.5) % Neutrophils # (1.3-7.7) k/uL Monocytes # (0-1.0) k/uL ABG pH (7.35-7.45) ABG pO2 (83-108) mmHg ABG HCO3 (21-25) mmol/L ABG Total CO2 (19-24) mmol/L ABG O2 Saturation (94-97) % BUN (9-20) mg/dL Creatinine (0.66-1.25) mg/dL Glucose (74-99) mg/dL POC Glucose (mg/dL) 184 H 184 H 181 H (70-110) mg/dL Calcium (8.4-10.2) mg/dL AST (17-59) U/L ALT (4-49) U/L Total Protein (6.3-8.2) g/dL Albumin (3.5-5.0) g/dL 10/22/23 10/22/23 10/23/23 Range/Units 23:33 23:40 03:46 WBC (3.8-10.6) k/uL RBC (4.30-5.90) m/uL Hgb (13.0-17.5) gm/dL Hct (39.0-53.0) % RDW (11.5-15.5) % Neutrophils # (1.3-7.7) k/uL Monocytes # (0-1.0) k/uL ABG pH (7.35-7.45) ABG pO2 (83-108) mmHg ABG HCO3 (21-25) mmol/L ABG Total CO2 (19-24) mmol/L ABG O2 Saturation (94-97) % BUN 89 H (9-20) mg/dL Creatinine 2.11 H (0.66-1.25) mg/dL Glucose 164 H (74-99) mg/dL POC Glucose (mg/dL) 177 H 198 H (70-110) mg/dL Calcium 7.2 L (8.4-10.2) mg/dL AST (17-59) U/L ALT (4-49) U/L Total Protein (6.3-8.2) g/dL Albumin (3.5-5.0) g/dL 10/23/23 10/23/23 10/23/23 Range/Units 04:40 04:40 05:19 WBC 18.2 H (3.8-10.6) k/uL RBC 2.69 L (4.30-5.90) m/uL Hgb 8.3 L (13.0-17.5) gm/dL Hct 25.1 L (39.0-53.0) % RDW 17.6 H (11.5-15.5) % Neutrophils # 13.9 H (1.3-7.7) k/uL Monocytes # 1.3 H (0-1.0) k/uL ABG pH 7.53 H (7.35-7.45) ABG pO2 82 L (83-108) mmHg ABG HCO3 29 H (21-25) mmol/L ABG Total CO2 30 H (19-24) mmol/L ABG O2 Saturation 97.1 H (94-97) % BUN 91 H (9-20) mg/dL Creatinine 2.19 H (0.66-1.25) mg/dL Glucose 171 H (74-99) mg/dL POC Glucose (mg/dL) (70-110) mg/dL Calcium 7.2 L (8.4-10.2) mg/dL AST 281 H (17-59) U/L ALT 85 H (4-49) U/L Total Protein 5.0 L (6.3-8.2) g/dL Albumin 2.1 L (3.5-5.0) g/dL 10/23/23 10/23/23 Range/Units 10:16 11:47 WBC (3.8-10.6) k/uL RBC (4.30-5.90) m/uL Hgb (13.0-17.5) gm/dL Hct (39.0-53.0) % RDW (11.5-15.5) % Neutrophils # (1.3-7.7) k/uL Monocytes # (0-1.0) k/uL ABG pH (7.35-7.45) ABG pO2 (83-108) mmHg ABG HCO3 (21-25) mmol/L ABG Total CO2 (19-24) mmol/L ABG O2 Saturation (94-97) % BUN (9-20) mg/dL Creatinine (0.66-1.25) mg/dL Glucose (74-99) mg/dL POC Glucose (mg/dL) 212 H 215 H (70-110) mg/dL Calcium (8.4-10.2) mg/dL AST (17-59) U/L ALT (4-49) U/L Total Protein (6.3-8.2) g/dL Albumin (3.5-5.0) g/dL
[2023-10-23 15:04] LABS: Glucose,Whole Blood 141 mg/dL (70-110)
[2023-10-23 20:36] LABS: Glucose,Whole Blood 195 mg/dL (70-110)
[2023-10-24 00:26] LABS: Glucose,Whole Blood 177 mg/dL (70-110)
[2023-10-24 03:50] LABS: Glucose,Whole Blood 191 mg/dL (70-110)
[2023-10-24 04:44] LABS: ABG Base Excess 5.2 mmol/L; ABG HCO3 28 mmol/L (21-25); ABG PCO2 35 mmHg (35-45); ABG PH 7.51 (7.35-7.45); ABG PO2 107 mmHg (83-108); ABG TCO2 29 mmol/L (19-24); Allen Test Performed? Yes
[2023-10-24 05:02] LABS: Anisocytosis Slight; Basophils # (A) 0.1 k/uL (0-0.2); Basophils % (A) 0 %; Eosinophils # (A) 0.1 k/uL (0-0.7); Eosinophils % (A) 0 %; HCT 23.5 % (39.0-53.0); HGB 7.5 gm/dL (13.0-17.5); Hypochromasia Slight; Lymphocytes # (A) 1.8 k/uL (1.0-4.8); Lymphocytes % (A) 11 %; MCH 30.5 pg (25.0-35.0); MCHC 32.1 g/dL (31.0-37.0); MCV 94.8 fL (80.0-100.0); Macrocytosis Slight; Mean Platelet Volume 10.7; Monocytes # (A) 0.9 k/uL (0-1.0); Monocytes % (A) 5 %; Neutrophils # (A) 14.1 k/uL (1.3-7.7); Neutrophils % (A) 82 %; Platelet Count 212 k/uL (150-450); RBC 2.47 m/uL (4.30-5.90); RDW 16.9 % (11.5-15.5); WBC 17.2 k/uL (3.8-10.6)
[2023-10-24 05:18] LABS: African American GFR (CKD) 31 (>60 ml/min/1.73 sqM); Anion Gap 11 mmol/L; Calcium 7.2 mg/dL (8.4-10.2); Carbon Dioxide 25 mmol/L (22-30); Chloride 109 mmol/L (98-107); Glucose 155 mg/dL (74-99); Magnesium 1.9 mg/dL (1.6-2.3); Non-African American GFR(CKD) 27 (>60 ml/min/1.73 sqM); Potassium 3.6 mmol/L (3.5-5.1); Sodium 145 mmol/L (137-145)
[2023-10-24 05:23] LABS: Blood Urea Nitrogen 102 mg/dL (9-20)
[2023-10-24] MEDS: MAGNESIUM SULFATE-D5W PMX 1 GM in DEXTROSE/WATER 1 100ML.BAG IVPB ONE (05:48)
[2023-10-24] MEDS: POTASSIUM CHLORIDE 10 MEQ in WATER FOR INJECTION 1 100ML.BAG IVPB SCH (05:49)
[2023-10-24 07:20] LABS: Glucose,Whole Blood 192 mg/dL (70-110)
--- NOTE | 2023-10-24 07:56 | P.PN ---
Subjective Progress Note Date: 10/24/23 PROGRESS NOTE The patient is a 77-year-old male who presented on September 27 with syncope, weakness. On October 13 he had an acute cardiac arrest and had an acute myocardial infarction, underwent angioplasty and stenting of the LAD, left main and the left circumflex with placement of Impella support. He had evidence of severe cardiomyopathy. The Impella has been removed, he remains intubated off sedation with no neurological response. He is in sinus mechanism and on no vasopressor. His recent neurological workup showed severe anoxic brain injury and severe anoxic encephalopathy. The patient so far remains full code and will be reassessed by the critical care team and neurology with the family. He had anemia as well as acute renal injury. Medications: Aspirin, amiodarone 400 mg twice a day, Lipitor 80 mg daily, furosemide 40 mg IV every 8 hours, levothyroxine, Brilinta 90 mg twice a day PHYSICAL EXAMINATION: Blood pressure 101/60 heart rate 80, no neurological response LUNGS:, Intubated, lungs clear anteriorly HEART: Regular rate and rhythm, S1, S2. No S3. Systolic ejection murmur ABDOMEN: Soft, nontender, no organomegaly EXTREMETIES: +1 edema LAB: Hemoglobin 7.5, WBC 17.2, BUN 102, creatinine 2.29. Potassium 3.6 IMPRESSION: 1. Severe anoxic encephalopathy, status postcardiac arrest 2. Status postacute myocardial infarction with stenting 3. Severe ischemic cardiomyopathy with Impella support post [place] 4. Acute renal injury 5. Anemia 6. Status post cardiac arrest x 2 7. GI bleeding 8. Status post recent COVID-pneumonia PLAN: 1. Decrease amiodarone to 200 mg twice a day 2. Discussion with the family per intensive care team and neurology regarding prognosis. 3. Prognosis is poor 4. Depending on the decision further recommendations will be made Objective - Vital Signs Vital signs: Vital Signs Temp 98.8 F 10/24/23 07:23 Pulse 85 10/24/23 07:00 Resp 27 H 10/24/23 07:00 BP 98/64 10/24/23 07:00 Pulse Ox 97 10/24/23 07:00 FiO2 50 10/24/23 04:00 Intake & Output 10/23/23 10/24/23 10/24/23 18:59 06:59 18:59 Intake Total 1405 1109 163 Output Total 1910 1080 100 Balance -505 29 63 Weight 122.47 kg Intake: IV 370 200 100 0.9 80 Invasive Line 6 20 Invasive Line 9 70 Magnesium Sulfate-D5w Pmx 100 1 gm In Dextrose/Water 1 100ml.bag @ 100 mls/hr IVPB ONCE ONE Rx#: [id number] Meropenem 1 gm In Sodium 100 Chloride 0.9% 100 ml @ 33 .3 mls/hr IVPB Q8HR [facility] Rx#:[id number] Potassium Chloride 10 meq 100 100 100 In Water For Injection 1 100ml.bag @ 100 mls/hr IVPB Q1H [facility] Rx#: [id number] Tube Feeding 945 819 63 Other 90 90 Output: Urine 1910 1080 100 Other: Voiding Method Indwelling Catheter Indwelling Catheter # Bowel Movements 0 ABP, PAP, CO, CI - Last Documented Arterial Blood Pressure 111/51 - Labs CBC & Chem 7: 10/24/23 04:24 10/24/23 04:24 Labs: Abnormal Lab Results - Last 24 Hours (Table) 10/23/23 10/23/23 10/23/23 Range/Units 10:16 11:47 15:02 WBC (3.8-10.6) k/uL RBC (4.30-5.90) m/uL Hgb (13.0-17.5) gm/dL Hct (39.0-53.0) % RDW (11.5-15.5) % Neutrophils # (1.3-7.7) k/uL ABG pH (7.35-7.45) ABG HCO3 (21-25) mmol/L ABG Total CO2 (19-24) mmol/L ABG O2 Saturation (94-97) % Chloride (98-107) mmol/L BUN (9-20) mg/dL Creatinine (0.66-1.25) mg/dL Glucose (74-99) mg/dL POC Glucose (mg/dL) 212 H 215 H 141 H (70-110) mg/dL Calcium (8.4-10.2) mg/dL 10/23/23 10/24/23 10/24/23 Range/Units 20:34 00:24 03:48 WBC (3.8-10.6) k/uL RBC (4.30-5.90) m/uL Hgb (13.0-17.5) gm/dL Hct (39.0-53.0) % RDW (11.5-15.5) % Neutrophils # (1.3-7.7) k/uL ABG pH (7.35-7.45) ABG HCO3 (21-25) mmol/L ABG Total CO2 (19-24) mmol/L ABG O2 Saturation (94-97) % Chloride (98-107) mmol/L BUN (9-20) mg/dL Creatinine (0.66-1.25) mg/dL Glucose (74-99) mg/dL POC Glucose (mg/dL) 195 H 177 H 191 H (70-110) mg/dL Calcium (8.4-10.2) mg/dL 10/24/23 10/24/23 10/24/23 Range/Units 04:24 04:24 04:44 WBC 17.2 H (3.8-10.6) k/uL RBC 2.47 L (4.30-5.90) m/uL Hgb 7.5 L (13.0-17.5) gm/dL Hct 23.5 L (39.0-53.0) % RDW 16.9 H (11.5-15.5) % Neutrophils # 14.1 H (1.3-7.7) k/uL ABG pH 7.51 H (7.35-7.45) ABG HCO3 28 H (21-25) mmol/L ABG Total CO2 29 H (19-24) mmol/L ABG O2 Saturation 99.0 H (94-97) % Chloride 109 H (98-107) mmol/L BUN 102 H* (9-20) mg/dL Creatinine 2.29 H (0.66-1.25) mg/dL Glucose 155 H (74-99) mg/dL POC Glucose (mg/dL) (70-110) mg/dL Calcium 7.2 L (8.4-10.2) mg/dL 10/24/23 Range/Units 07:18 WBC (3.8-10.6) k/uL RBC (4.30-5.90) m/uL Hgb (13.0-17.5) gm/dL Hct (39.0-53.0) % RDW (11.5-15.5) % Neutrophils # (1.3-7.7) k/uL ABG pH (7.35-7.45) ABG HCO3 (21-25) mmol/L ABG Total CO2 (19-24) mmol/L ABG O2 Saturation (94-97) % Chloride (98-107) mmol/L BUN (9-20) mg/dL Creatinine (0.66-1.25) mg/dL Glucose (74-99) mg/dL POC Glucose (mg/dL) 192 H (70-110) mg/dL Calcium (8.4-10.2) mg/dL
--- NOTE | 2023-10-24 08:06 | XR ---
EXAMINATION TYPE: XR chest 1V portable DATE OF EXAM: 10/24/2023 Comparison: 10/22/2023 Clinical History: 77-year-old male mechanical ventilation Findings: ET tube satisfactory. NG tube courses below the diaphragm. Redemonstrated volume loss and patchy opac ities throughout the right lung. Interstitial density left lung remains but with improving overall ae ration. Heart upper limits of normal in size. Impression: Similar asymmetric volume loss and patchy opacities throughout the right lung. Some improving aeratio n within the left lung.
[2023-10-24] MEDS: AMIODARONE 200 MG TAB PO SCH (08:15)
[2023-10-24 11:11] VITALS: BMI 37.6
--- NOTE | 2023-10-24 11:27 | P.PN ---
Subjective Patient is seen in follow-up for acute kidney injury. Renal function fairly stable. On IV Lasix. Nonoliguric. Off Levophed. Intubated. Off sedation. Minimally responsive. Hemoglobin 7.5 today. Vital signs are stable. General: Resting in bed. HEENT: Intubated. LUNGS: Scattered rhonchi. HEART: Rate and Rhythm are regular. ABDOMEN: Nontender. EXTREMITITES: 2+ edema. Objective - Vital Signs Vital signs: Vital Signs Temp 98.2 F 10/24/23 08:00 Pulse 99 10/24/23 10:00 Resp 30 H 10/24/23 10:00 BP 117/67 10/24/23 10:00 Pulse Ox 98 10/24/23 10:00 FiO2 50 10/24/23 10:00 Intake & Output 10/23/23 10/24/23 10/24/23 18:59 06:59 18:59 Intake Total 1405 1109 466 Output Total 1910 1080 435 Balance -505 29 31 Weight 122.47 kg 122.47 kg Intake: IV 370 200 100 0.9 80 Invasive Line 6 20 Invasive Line 9 70 Magnesium Sulfate-D5w Pmx 100 1 gm In Dextrose/Water 1 100ml.bag @ 100 mls/hr IVPB ONCE ONE Rx#: [id number] Meropenem 1 gm In Sodium 100 Chloride 0.9% 100 ml @ 33 .3 mls/hr IVPB Q8HR [facility] Rx#:[id number] Potassium Chloride 10 meq 100 100 100 In Water For Injection 1 100ml.bag @ 100 mls/hr IVPB Q1H [facility] Rx#: [id number] Tube Feeding 945 819 336 Other 90 90 30 Output: Urine 1910 1080 435 Other: Voiding Method Indwelling Catheter Indwelling Catheter Indwelling Catheter # Bowel Movements 0 0 ABP, PAP, CO, CI - Last Documented Arterial Blood Pressure 111/51 - Labs CBC & Chem 7: 10/24/23 04:24 10/24/23 04:24 Labs: Abnormal Lab Results - Last 24 Hours (Table) 10/23/23 10/23/23 10/23/23 Range/Units 11:47 15:02 20:34 WBC (3.8-10.6) k/uL RBC (4.30-5.90) m/uL Hgb (13.0-17.5) gm/dL Hct (39.0-53.0) % RDW (11.5-15.5) % Neutrophils # (1.3-7.7) k/uL ABG pH (7.35-7.45) ABG HCO3 (21-25) mmol/L ABG Total CO2 (19-24) mmol/L ABG O2 Saturation (94-97) % Chloride (98-107) mmol/L BUN (9-20) mg/dL Creatinine (0.66-1.25) mg/dL Glucose (74-99) mg/dL POC Glucose (mg/dL) 215 H 141 H 195 H (70-110) mg/dL Calcium (8.4-10.2) mg/dL 10/24/23 10/24/23 10/24/23 Range/Units 00:24 03:48 04:24 WBC 17.2 H (3.8-10.6) k/uL RBC 2.47 L (4.30-5.90) m/uL Hgb 7.5 L (13.0-17.5) gm/dL Hct 23.5 L (39.0-53.0) % RDW 16.9 H (11.5-15.5) % Neutrophils # 14.1 H (1.3-7.7) k/uL ABG pH (7.35-7.45) ABG HCO3 (21-25) mmol/L ABG Total CO2 (19-24) mmol/L ABG O2 Saturation (94-97) % Chloride (98-107) mmol/L BUN (9-20) mg/dL Creatinine (0.66-1.25) mg/dL Glucose (74-99) mg/dL POC Glucose (mg/dL) 177 H 191 H (70-110) mg/dL Calcium (8.4-10.2) mg/dL 10/24/23 10/24/23 10/24/23 Range/Units 04:24 04:44 07:18 WBC (3.8-10.6) k/uL RBC (4.30-5.90) m/uL Hgb (13.0-17.5) gm/dL Hct (39.0-53.0) % RDW (11.5-15.5) % Neutrophils # (1.3-7.7) k/uL ABG pH 7.51 H (7.35-7.45) ABG HCO3 28 H (21-25) mmol/L ABG Total CO2 29 H (19-24) mmol/L ABG O2 Saturation 99.0 H (94-97) % Chloride 109 H (98-107) mmol/L BUN 102 H* (9-20) mg/dL Creatinine 2.29 H (0.66-1.25) mg/dL Glucose 155 H (74-99) mg/dL POC Glucose (mg/dL) 192 H (70-110) mg/dL Calcium 7.2 L (8.4-10.2) mg/dL Assessment and Plan Plan: Assessment: 1. Hyponatremia. Due to urinary retention and hypervolemia. Improved. TSH normal. Urine osmolality 543. Urine sodium less than 20. 2. Acute kidney injury initially secondary to urinary retention. Now ATN due to cardiac arrest. Creatinine peaked at 2.6 this admission and is 2.29 today. Elevated BUN due to acute kidney injury and questionable GI bleed. No proteinuria on UA. No hydronephrosis noted on kidney ultrasound. 3. Urinary retention status post [place] catheter placement. On Flomax. Urology following. 4. Benign hypertension. Controlled. Off Levophed. 5. Hypokalemia from diuresis. Replaced. Better. 6. Rhabdomyolysis secondary to fall. CK level improved. 7. Acute blood loss anemia status post blood transfusion this admission. Hemoglobin stable at 8.2. 8. Volume overload. 9. Acute ST elevated myocardial infarction status post cardiac stenting October 14, 2023. 10. Acute systolic CHF with ejection fraction of 20 to 25% noted on echocardiogram done October 18, 2023. 11. Anoxic brain injury. Plan: Maintain IV Lasix. Receiving tube feeds. Potassium replaced. IV DDAVP x 1 dose today. Avoid nephrotoxins. Continue to monitor renal function and urine output. Wean FiO2. Prognosis guarded. Hospice has been discussed with family.
--- NOTE | 2023-10-24 11:37 | P.PN ---
Subjective Progress Note Date: 10/24/23 Principal diagnosis: Weakness. Generalized weakness secondary to COVID-19 infection and hyponatremia with possible diaphragm paralysis and acute hypoxic respiratory failure This is a 77-year-old male patient with a history of hypertension, seizure disorder, thyroid disorder, former smoker. On September 27, 2023 the patient had gotten up to go the bathroom and slumped onto the ground. He had been reportedly laying on the ground for several hours by family were attempting to get in helping him get up but he was unable to support himself. He also had trouble with urinary incontinence. EMS was called and he was brought here for evaluation. CT scan of the brain revealed no acute intracranial hemorrhage, midline shift or mass effect. EKG revealed sinus rhythm with no significant ST or T wave abnormalities. White count 14.9. Hemoglobin 12.9. Platelets 146. Sodium 126. Potassium 3.9. Bicarb 26. BUN 15. Creatinine 0.68. Glucose 152. AST 148. ALT 43. Creatinine kinase 2283. He did test positive for COVID-19 infection. His initial sodium level was 118. BUN of 24 and a creatinine of 1.26. He had been seen by nephrology, urology and infectious disease. A chest x-ray was done today September 30, 2023 that revealed an elevated right hemidiaphragm and we are consulted for the same. He was sent for a sniff test however the patient was unable to perform the appropriate maneuvers due to overall condition. He is seen on consultation on the selective care unit. He is currently resting in bed. Difficult to arouse but arousable. He is on a nonrebreather mask with O2 saturation of 90%. Currently afebrile. Hemodynamically stable. He has been initiated on Decadron. Antibiotics in the form of cefepime. Saline at 50 MLS per hour. Patient was evaluated today on 10/01/2023, more awake today, more responsive, seems to be more alert, and remains on a nonrebreather mask which I have recommended to transition to high flow nasal cannula. Patient did transition to 10 L high flow nasal cannula and O2 saturation was ranging between 92 up to 96% definitely better today compared to the last couple of days. Still planning to repeat his sniff test to evaluate for right hemidiaphragm paralysis. Procalcitonin level came back elevated at 0.43, patient remains on antibiotics for presumptive right lower lobe pneumonia. WBC count today 13.9 hemoglobin 13.0.Basic metabolic profile is relatively normal. Reevaluated today on 10/02/2023, patient is on 10 L high flow nasal cannula, doing better, breathing easier, O2 saturation is in the low 90s, patient continues to have diminished breath sounds at the right base, and I believe the patient has right hemidiaphragm paralysis with right lower lobe atelectasis, possible underlying pneumonia, but I feel clinically this is not the picture. At any rate the patient is supposed to have a sniff test tomorrow, may even have to consider a CT of the chest to evaluate the right lower lobe further. Based on the sniff test, further recommendations will follow. In the meantime patient is gradually improving, feeling better, breathing easier and definitely his neurological status is significantly improved now compared to how he was few days ago WBC count is 10.2 hemoglobin is 12.3, sodium is up to 130, potassium 3.1 renal profile is normal procalcitonin level on this patient was 0.43, hence he was empirically placed on antibiotics for presumptive right lower lobe pneumonia Progress note dated October 03, 2023. The patient is seen today in room 362. He continues on a nonrebreather mask. Previously, he was on 15 L high flow oxygen. Because of saturations in the high 80s, the nurse switched him to a nonrebreather mask. Currently his saturations are in the low 90s. The patient continues on Decadron, and cefepime. He is getting saline at 50 cc an hour. His procalcitonin level is 0.43. Laboratory data includes a white count 11.3, hemoglobin 13, hematocrit 39.6, and a platelet count of 196,000. Sodium 132, potassium 3.3, chloride 97, CO2 30, BUN 15, creatinine 0.51. The patient's albumin is 2.8. AST is 101, and ALT is 53. Chest x-ray shows some basilar atelectasis or infiltrate, with an elevated right diaphragm, and possible effusion. Progress note dated October 04, 2023. 77-year-old male, seen today in room 362. The patient was initially on a nonrebreather, but saturations were only in the mid 80s. The patient was converted to Airvo, with settings of 60 L/min, with an FiO2 of 95%. His saturations then increased to 88 to 90%. The patient is not receiving any IV fluids. No new labs today. Labs from October 03 have been reviewed. Microbiologic sampling, is negative or pending. Chest x-ray reveals borderline cardiomegaly, with ongoing asymmetric elevation of the right hemidiaphragm. There is increasing patchy bibasilar atelectasis/infiltrate. Progress note dated October 05, 2023. 77-year-old male seen today in room 362. Currently, the patient is on Airvo, with settings of 60 L/min and an FiO2 of 90%. The patient is also wearing a nonrebreather mask, over the Airvo nasal cannula. The patient continues on Decadron and cefepime. We have asked for chest x-ray tomorrow. Clinically, the patient looks reasonably stable, and does not appear to be short of breath. I have asked the nurse, to call respiratory, to adjust his Airvo nasal cannula, and a nonrebreather mask. No new labs today. Progress note dated October 06, 2023. 77-year-old male, seen today in room 256. The patient's respiratory status declined through the night, and the patient was transferred down to the intensive care unit. The patient had blood gases, showing a pO2 of 126, pCO2 of 21, and a pH of 7.70. This blood gas is consistent with a mixed respiratory and metabolic alkalosis. The patient did test positive initially for coronavirus. He is currently on Airvo, with settings of 60 L/min and an FiO2 of 90%. In addition, he is getting a nonrebreather mask. The patient is not receiving any IV fluids. Saturations are in the low to mid 90s. The patient continues on cefepime. Labs include a white count 15, hemoglobin 13.4, hematocrit 39.6, and a platelet count of 181,000. Sodium 133, potassium 3.2, chlorides 96, CO2 29, BUN 28, creatinine 0.81. Glucose is 110. Calcium is 8.4. Chest x-ray shows some patchy mid and lower lung opacities, either the same from the previous x- ray, or mildly improved. There is also elevation of the right diaphragm. Progress note dated October 07, 2023. 77-year-old male seen today in room 256. The patient is currently on Airvo, at 60 L/min with an FiO2 of 90%. Saturations are between 92 and 93%. Occasionall y, he has a nonrebreather mask, over the Airvo nasal cannula. He is not receiving any IV fluids. He had an uneventful night according to the nurses. His white count is 15.7, hemoglobin 12.4, hematocrit 37.9, and platelet count is normal. Sodium 134, potassium 3.8, chlorides 98, CO2 29, BUN 32, creatinine 0.8. Glucose 141. Calcium 8.4. Chest x-ray is unchanged and shows similar patchy infiltrates, in the mid and lower lung zones, with the right diaphragm elevation. Progress note dated October 08, 2023. 77-year-old male seen today in room 256. The patient is currently on Airvo, at 60 L/min, with an FiO2 of 80%. Yesterday, he was on 90%. He is not receiving any IV fluids. We can discontinue isolation. In addition, he has been on cefepime for some time, so that we will be discontinued as well. Current labs include a white count of 14.3, hemoglobin 11.8, hematocrit 36.6, and a normal platelet count of 153,000. Sodium 131, potassium 4, chloride 96, CO2 31, BUN 37, creatinine 0.71. Glucose is 137. Calcium 8.5. Magnesium 2.0. Yesterday's chest x-ray was unchanged. Progress note dated October 09, 2023. 77-year-old male, again seen in room 256. The patient was admitted with a diagnosis of coronavirus infection, and probable coronavirus associated pneumonia. The patient is currently on Airvo, with settings of 60 L/min and an FiO2 of 85%. The patient is not receiving any IV fluids. His chest x-ray today, looks a bit better. Clinically, he is about the same. Current labs include a white count of 17.1, hemoglobin 12.7, hematocrit 37.7, and a normal platelet count. Sodium 130, potassium 4.2, chlorides 92, CO2 31, BUN 37, creatinine 0.8. The patient's glucose was 118. Calcium 8.7. Patient was reevaluated today on 10/21/2023, remains in the ICU, CODE STATUS has been changed to full code, patient is now on assist-control rate of 26 tidal volume 500 FiO2 50% PEEP was done and I cut it down to 8 ABG showed a pO2 of 98 pCO2 37 pH of 7.42. Patient is still sedated with propofol at 10 mcg/kg/min, fentanyl at 1 mcg/kg/h. IV fluid 0.9 normal saline at KVO, patient is receiving vital HP at 30 cc/h. Remains on Merrem and he remains on Lasix 40 mg IV push every 8 hours. Not much of a change noted in the last 24 hours, chest x-ray remains the same showing mostly right lower lobe atelectasis and right upper lobe infiltrate. Patient will be given today a mental status assessment, and a sedation holiday, he is not quite ready for weaning, but at least we will try to assess mental status if possible off sedation today WBC count is 14.4 hemoglobin is 8.2. Basic metabolic profile is normal BUN is 71 creatinine 2.60 Patient was reevaluated today on 10/22/2023, remains in the ICU, intubated and mechanically ventilated. Patient has been completely off sedation, and continues to have no responses, patient is not waking up, and he is not responding to deep painful stimuli. Neurology is on board. Apparently his EEG reflected severe toxic metabolic encephalopathy. Patient is on assist-control rate of 26 tidal volume 500 FiO2 50% PEEP of 8 ABG showed a pO2 of 83 pCO2 33 pH of 7.52. Remains on Lasix 40 mg IV push every 8 hours remains on Merrem his endotracheal tube seems to be a bit low hence will be pulling the tube about 2 cm. No changes were made in his vent settings, patient remains on vital HP at 50 cc/h. Obviously the patient does not ready for any form of weaning especially with his neurological status as bad as it is. Will continue the same management, and hopefully family carmen will decide on comfort care measures as the prognosis seems to be extremely poor and guarded if not, patient may have to be considered for trach and PEG next week . WBC count is 15.7 hemoglobin 8.2 electrolytes were reviewed potassium is 3.1 BUN is 78 creatinine 2.28, slightly improved compared to yesterday. Patient evaluated today on 10/23/2023, remains in the ICU, intubated, mechanically ventilated, has been off sedation for the last few days, patient is not showing any signs of neurological recovery. Remains unresponsive to painful stimuli, patient opens eyes at times, but no responses and no purposeful movement. Remains on vital HP at 63 mL/h remains on IV fluids at KVO, patient is intubated on assist-control rate of 26 tidal volume 500 FiO2 50% and PEEP of 8 ABG showed a pO2 of 82 pCO2 of 35 pH of 7.53. No major improvement noted in the last week, and I believe the patient should be seriously considered for comfort care measures. At 1 point the patient was made DNR CODE STATUS, but after the Impella device was removed, family changed the CODE STATUS to full code. I believe the patient has severe anoxic brain injury and severe anoxic encephalopathy, does not seem to be recovering and again I am strongly recommending comfort care measures on this patient. His labs showed WBC count of 18.2 hemoglobin is 8.3 platelets are 204, basic metabolic profile is normal BUN is 91 creatinine 2.19, blood cultures and sputum cultures have been negative Progress note dated October 24, 2023. This is a 77-year-old male who was initially admitted back on September 28. The patient was initially admitted for a number of his issues including generalized weakness, and hyponatremia. The patient was also tested for coronavirus, and tested positive. The patient was intubated for respiratory failure on October 13. He remains on mechanical ventilator. Ventilator settings include volume assist- control, rate 26, tidal volume 500, FiO2 50%, PEEP of 8. Blood gases show pO2 107, pCO2 35, pH is 7.51. The patient is getting no IV fluids. He is not receiving any sedation. The patient is getting vital high-protein at 63 cc an hour which is goal. Today we attempted a spontaneous breathing trial with pressure support of 8 and CPAP of 5. The patient did poorly, and he was placed back on mechanical ventilation. Laboratory data includes a white count of 17.2, hemoglobin 7.5, hematocrit 23.5, and a normal platelet count. Sodium 145, potassium 3.6, chlorides 109, CO2 25, anion gap 11, BUN 102, creatinine 2.29. Glucose 192. Calcium 7.2. Chest x-ray shows volume loss and patchy opacities throughout the right lung. Left lung aeration is improved. Objective - Vital Signs Vital signs: Vital Signs Temp 98.2 F 10/24/23 08:00 Pulse 99 10/24/23 10:00 Resp 30 H 10/24/23 10:00 BP 117/67 10/24/23 10:00 Pulse Ox 98 10/24/23 10:00 FiO2 50 10/24/23 10:00 Intake & Output 10/23/23 10/24/23 10/24/23 18:59 06:59 18:59 Intake Total 1405 1109 466 Output Total 1910 1080 435 Balance -505 29 31 Weight 122.47 kg 122.47 kg Intake: IV 370 200 100 0.9 80 Invasive Line 6 20 Invasive Line 9 70 Magnesium Sulfate-D5w Pmx 100 1 gm In Dextrose/Water 1 100ml.bag @ 100 mls/hr IVPB ONCE ONE Rx#: [id number] Meropenem 1 gm In Sodium 100 Chloride 0.9% 100 ml @ 33 .3 mls/hr IVPB Q8HR [facility] Rx#:[id number] Potassium Chloride 10 meq 100 100 100 In Water For Injection 1 100ml.bag @ 100 mls/hr IVPB Q1H [facility] Rx#: [id number] Tube Feeding 945 819 336 Other 90 90 30 Output: Urine 1909 1080 435 Other: Voiding Method Indwelling Catheter Indwelling Catheter Indwelling Catheter # Bowel Movements 0 0 ABP, PAP, CO, CI - Last Documented Arterial Blood Pressure 111/51 - Exam No acute distress, currently intubated, with a orally placed endotracheal tube. NG tube was noted. HEENT examination is grossly unremarkable. Neck supple. Full range of motion. No adenopathy thyromegaly or neck vein distention. Cardiovascular examination reveals regular rhythm rate. S1-S2 normal. No S3 or S4. No discernible murmur noted. Heart sounds are distant. Heart rate 99 bpm. Lungs reveal electively clear but diminished breath sounds throughout. Minimal rhonchi. No wheezes. No crackles. Saturations are 97 %. Abdomen soft bowel sounds are heard. No masses or tenderness. Extremities are intact. No cyanosis or clubbing. The patient does have diffuse edema and anasarca. Skin is without rash or lesion. Neurologic examination reveals the patient, who is unresponsive. - Labs CBC & Chem 7: 10/24/23 04:24 10/24/23 04:24 Labs: Abnormal Lab Results - Last 24 Hours (Table) 10/23/23 10/23/23 10/23/23 Range/Units 11:47 15:02 20:34 WBC (3.8-10.6) k/uL RBC (4.30-5.90) m/uL Hgb (13.0-17.5) gm/dL Hct (39.0-53.0) % RDW (11.5-15.5) % Neutrophils # (1.3-7.7) k/uL ABG pH (7.35-7.45) ABG HCO3 (21-25) mmol/L ABG Total CO2 (19-24) mmol/L ABG O2 Saturation (94-97) % Chloride (98-107) mmol/L BUN (9-20) mg/dL Creatinine (0.66-1.25) mg/dL Glucose (74-99) mg/dL POC Glucose (mg/dL) 215 H 141 H 195 H (70-110) mg/dL Calcium (8.4-10.2) mg/dL 10/24/23 10/24/23 10/24/23 Range/Units 00:24 03:48 04:24 WBC 17.2 H (3.8-10.6) k/uL RBC 2.47 L (4.30-5.90) m/uL Hgb 7.5 L (13.0-17.5) gm/dL Hct 23.5 L (39.0-53.0) % RDW 16.9 H (11.5-15.5) % Neutrophils # 14.1 H (1.3-7.7) k/uL ABG pH (7.35-7.45) ABG HCO3 (21-25) mmol/L ABG Total CO2 (19-24) mmol/L ABG O2 Saturation (94-97) % Chloride (98-107) mmol/L BUN (9-20) mg/dL Creatinine (0.66-1.25) mg/dL Glucose (74-99) mg/dL POC Glucose (mg/dL) 177 H 191 H (70-110) mg/dL Calcium (8.4-10.2) mg/dL 10/24/23 10/24/23 10/24/23 Range/Units 04:24 04:44 07:18 WBC (3.8-10.6) k/uL RBC (4.30-5.90) m/uL Hgb (13.0-17.5) gm/dL Hct (39.0-53.0) % RDW (11.5-15.5) % Neutrophils # (1.3-7.7) k/uL ABG pH 7.51 H (7.35-7.45) ABG HCO3 28 H (21-25) mmol/L ABG Total CO2 29 H (19-24) mmol/L ABG O2 Saturation 99.0 H (94-97) % Chloride 109 H (98-107) mmol/L BUN 102 H* (9-20) mg/dL Creatinine 2.29 H (0.66-1.25) mg/dL Glucose 155 H (74-99) mg/dL POC Glucose (mg/dL) 192 H (70-110) mg/dL Calcium 7.2 L (8.4-10.2) mg/dL Assessment and Plan Assessment: Acute hypoxemic respiratory failure secondary to right lower lobe atelectasis/co nsolidation, and possible pneumonia. S/P intubation, and mechanical ventilation, on October 14, 2023, for respiratory failure. S/P cardiac arrest with ventricular tachycardia and ventricular fibrillation, s/p cardiac catheterization, for acute lateral ST segment elevation myocardial infarction. S/P Impella placement, and subsequent removal. Severe left ventricular dysfunction with an ejection fraction of 20%. Generalized weakness, likely secondary to coronavirus infection, and hyponatremia. Acute mental status changes, likely secondary to metabolic and anoxic encephalopathy. Acute coronavirus infection, without evidence of coronavirus associated pneumonia. Right diaphragm elevation, and possible paresis/paralysis. Hyponatremia. Acute kidney injury. Rhabdomyolysis. History of seizure disorder. History of hypothyroidism. History of hypertension. Previous history of tobacco use. Plan: Plan dated October 03, 2023. The patient is seen today in room 362. The nurse recently changed him from 15 L high flow nasal prongs, to a nonrebreather mask. His saturations are in the low 90s. The patient continues on Decadron, and cefepime. He is also receiving saline at 50 cc an hour. His procalcitonin level was 0.43. Labs, x-rays, and medications are reviewed. We will continue to follow the patient, make recommendations along the way. Prognosis is certainly guarded. Plan dated October 04, 2023. The patient is seen today in room 362. The patient was on a nonrebreather mask, but because of low saturations, respiratory change the patient to Airvo, with settings of 60 L/min, and an FiO2 of 95%. The patient continues on Decadron, cefepime, zinc, vitamin D3, and vitamin C. Additional recommendations and suggestions are forthcoming. The patient's overall prognosis remains guarded. Chest x-ray has been reviewed. Labs, x-rays, and medications are reviewed. Overall prognosis remains guarded. CODE STATUS should be addressed. No additional recommendations at this time. Plan dated October 05, 2023. The patient is currently on Airvo, and a nonrebreather mask. Saturations are in the high 80s, low 90s. A chest x-ray will be obtained tomorrow. I have asked the nurse to call respiratory, to adjust his Airvo nasal cannula, and nonrebreather mask, to maximize his oxygen. Labs, x-rays, medications are reviewed. The patient continues on Decadron, and cefepime. Labs, x-rays, and medications are reviewed. The prognosis is guarded. We will continue to follow the patient, make recommendations along the way. CODE STATUS should be addressed on this patient. Plan dated October 06, 2023. The patient's respiratory status declined overnight, and he was transferred down to the intensive care unit. I was notified, by the nighttime nurse, about the rapid response team, and, I told them, to transfer the patient to the ICU, should the situation declined further. He is currently on Airvo device, at 60 L/min, with an FiO2 of 90%. In addition, he is on a nonrebreather mask. He continues on appropriate medications, including cefepime, Decadron, and, I will add some inhalers. Additional recommendations and suggestions are forthcoming. Prognosis is guarded. We will continue to follow the patient, and make recommendations. I attempted to have a conversation with the patient today about CODE STATUS, but he really could not make a decision. Plan dated October 07, 2023. The patient is currently on Airvo, 60 L/min, with an FiO2 of 90%. The nurses state, that the patient will use his nonrebreather, from time to time as well. Currently, his saturations are in the low 90s. He is not receiving any IV fluids. His chest x-ray is unchanged. Labs, x-rays, and medications are reviewed. CODE STATUS should be addressed by the primary service. Currently, he is on albuterol inhaler, Symbicort, cefepime, and Decadron. Additional recommendations and suggestions are forthcoming. Prognosis is very guarded. Plan dated October 08, 2023. The patient remains critically ill in the intensive care unit. He is seen today in room 256. The patient's currently on Airvo, at 60 L/min, with an FiO2 of 80%. The patient is not receiving any IV fluids. We can discontinue the isolation. Will also discontinue the cefepime. Labs, x-rays, and medications are reviewed. He continues on albuterol, Symbicort, and Decadron. Additional recommendations and suggestions are forthcoming. Prognosis is guarded. We did ask for chest x-ray tomorrow. Plan dated October 09, 2023. The patient's overall respiratory status remains critical. He is very tenuous, and sometimes, his saturations dropped into the mid 80s. He continues on Airvo. Labs, x-rays, medications are reviewed. In my opinion, his chest x-ray may be a bit better. Radiologist thought the x-ray was about the same. We will continue with his current medications. We did just discontinue his cefepime. Labs, x-rays, and medications are all reviewed. He continues on albuterol, Symbicort, Decadron. Prognosis is certainly guarded. Plan dated October 24, 2023. The patient has been off of sedation for a number of days now. He has been unresponsive. The patient had a spontaneous breathing trial today, and failed it. His respiratory rate went immediately up to 50 breaths/min. His spontaneous tidal volumes were only about 250 to 275 cc. His minute ventilation was in excess of 15 L/min. The patient was placed back on the mechanical ventilator. He continues on meropenem. The patient's overall prognosis is very poor. I did speak to the daughter today, Bridget, and suggested, the possibility of tracheostomy and PEG tube placement, if they wanted to continue with her current level of support. She was going to talk to the family and get back to us. Labs, x-rays, medications are reviewed. The patient remains a full code. The patient's overall prognosis is extremely poor. Time with Patient: Greater than 30
[2023-10-24 11:44] LABS: Glucose,Whole Blood 181 mg/dL (70-110)
[2023-10-24] MEDS: DESMOPRESSIN ACETATE 28 MCG in SODIUM CHLORIDE 0.9% 50 ML IVPB ONE (12:13)
--- NOTE | 2023-10-24 12:48 | P.PN ---
Subjective Progress Note Date: 10/24/23 CHIEF COMPLAINT: Anemia HISTORY OF PRESENT ILLNESS: Patient remains in the ICU intubated and on mechanical ventilation. Patient has had cardiac arrest, 5 cardiac stents placed. Patient does remain on Brilinta and aspirin. Surgical service following for GI bleed. Patient has had no further bowel movements since October 18. Patient is off of sedation and has been unresponsive. He is on tube feeds for nutrition support remains on mechanical ventilation. Did have a fever of 101. Hemoglobin has dropped from 8.3-7.5. WBC is 17.2 BUN elevated at 102 creatinine 2.29 nephrology has added DDAVP PHYSICAL EXAM: VITAL SIGNS: Reviewed. GENERAL: no acute distress. ABDOMEN: Soft. Nondistended. Nontender. NEUROLOGIC: Intubated ASSESSMENT: 1. Acute GI bleed with black tarry stools 2. Acute blood loss anemia 3. Cardiac arrest status post heart catheterization with 5 stents PLAN: -Recommend EGD when medically stable -Continue ICU management -Continue to monitor for signs and symptoms of bleeding -Continue to monitor hemoglobin -Continue Protonix Physician Python Programmer note has been reviewed by physician. Signing provider agrees with the documented findings, assessment, and plan of care. Objective - Vital Signs Vital signs: Vital Signs Temp 98.2 F 10/24/23 08:00 Pulse 93 10/24/23 12:00 Resp 27 H 10/24/23 12:00 BP 113/62 10/24/23 12:00 Pulse Ox 97 10/24/23 12:00 FiO2 50 10/24/23 12:00 Intake & Output 10/23/23 10/24/23 10/24/23 18:59 06:59 18:59 Intake Total 1405 1109 706 Output Total 1910 1080 895 Balance -505 29 -189 Weight 122.47 kg 122.47 kg Intake: IV 370 200 100 0.9 80 Invasive Line 6 20 Invasive Line 9 70 Magnesium Sulfate-D5w Pmx 100 1 gm In Dextrose/Water 1 100ml.bag @ 100 mls/hr IVPB ONCE ONE Rx#: [id number] Meropenem 1 gm In Sodium 100 Chloride 0.9% 100 ml @ 33 .3 mls/hr IVPB Q8HR [facility] Rx#:[id number] Potassium Chloride 10 meq 100 100 100 In Water For Injection 1 100ml.bag @ 100 mls/hr IVPB Q1H [facility] Rx#: [id number] Tube Feeding 945 819 546 Other 90 90 60 Output: Urine 9420 1080 895 Other: Voiding Method Indwelling Catheter Indwelling Catheter Indwelling Catheter # Bowel Movements 0 0 ABP, PAP, CO, CI - Last Documented Arterial Blood Pressure 111/51 - Labs CBC & Chem 7: 10/24/23 04:24 10/24/23 04:24 Labs: Abnormal Lab Results - Last 24 Hours (Table) 10/23/23 10/23/23 10/24/23 Range/Units 15:02 20:34 00:24 WBC (3.8-10.6) k/uL RBC (4.30-5.90) m/uL Hgb (13.0-17.5) gm/dL Hct (39.0-53.0) % RDW (11.5-15.5) % Neutrophils # (1.3-7.7) k/uL ABG pH (7.35-7.45) ABG HCO3 (21-25) mmol/L ABG Total CO2 (19-24) mmol/L ABG O2 Saturation (94-97) % Chloride (98-107) mmol/L BUN (9-20) mg/dL Creatinine (0.66-1.25) mg/dL Glucose (74-99) mg/dL POC Glucose (mg/dL) 141 H 195 H 177 H (70-110) mg/dL Calcium (8.4-10.2) mg/dL 10/24/23 10/24/23 10/24/23 Range/Units 03:48 04:24 04:24 WBC 17.2 H (3.8-10.6) k/uL RBC 2.47 L (4.30-5.90) m/uL Hgb 7.5 L (13.0-17.5) gm/dL Hct 23.5 L (39.0-53.0) % RDW 16.9 H (11.5-15.5) % Neutrophils # 14.1 H (1.3-7.7) k/uL ABG pH (7.35-7.45) ABG HCO3 (21-25) mmol/L ABG Total CO2 (19-24) mmol/L ABG O2 Saturation (94-97) % Chloride 109 H (98-107) mmol/L BUN 102 H* (9-20) mg/dL Creatinine 2.29 H (0.66-1.25) mg/dL Glucose 155 H (74-99) mg/dL POC Glucose (mg/dL) 191 H (70-110) mg/dL Calcium 7.2 L (8.4-10.2) mg/dL 10/24/23 10/24/23 10/24/23 Range/Units 04:44 07:18 11:43 WBC (3.8-10.6) k/uL RBC (4.30-5.90) m/uL Hgb (13.0-17.5) gm/dL Hct (39.0-53.0) % RDW (11.5-15.5) % Neutrophils # (1.3-7.7) k/uL ABG pH 7.51 H (7.35-7.45) ABG HCO3 28 H (21-25) mmol/L ABG Total CO2 29 H (19-24) mmol/L ABG O2 Saturation 99.0 H (94-97) % Chloride (98-107) mmol/L BUN (9-20) mg/dL Creatinine (0.66-1.25) mg/dL Glucose (74-99) mg/dL POC Glucose (mg/dL) 192 H 181 H (70-110) mg/dL Calcium (8.4-10.2) mg/dL
--- NOTE | 2023-10-24 14:24 | P.PN ---
Subjective Progress Note Date: 10/24/23 patient is a 77-year-old gentleman past medical history significant for hypothyroidism, hypertension who presented to the ER for generalized weakness and fall. Patient was brought in by family members, apparently patient was trying to use the restroom when he lost all his strength and slumped to the gr ound. There was no complaint of any loss of consciousness. No complaint of weakness of any extremity. Family did not notice any slurred speech or facial droop. There was no complaint of fever or chills. No complaint of nausea, vomiting, abdominal pain. Patient's family tried to help him to get up but they were unable to lift him. They called EMS and they brought him to ER. Initial lab work done in the ER showed WBC 10.5, hemoglobin 15.2, platelet count 165, sodium 118, potassium 4.1, BUN 24, creatinine 1.26, plasma lactate 4.1, troponin 0.012 UA negative for any infection EKG done in the ER showed heart rate of 75, no ST segment elevation or depression seen, no T-wave inversions seen. Chest x-ray done in the ER no acute cardiopulmonary process CT head done showed no acute intracranial process Patient admitted to internal medicine service 09/29. Patient seen and examined. COVID-19 came back positive. Currently on 4 L of oxygen. Sodium this morning is 121. Still complain lethargy and weakness. Patient also diagnosed with COVID 09/30. Patient seen and examined. Blood work done this morning showed WBC 14.9, hemoglobin 12.9, platelet count 146, sodium 126, potassium 3.9, BUN 15, creatinine 0.68. States he feels much better. Shortness of breath is improved. 10/01. Patient seen and examined. Still on 15 L of oxygen via nonrebreather. States he feels better. Sodium level improved to 132, potassium 3.3, BUN 18, creatinine 0.65. Lethargy has improved. 10/02. Patient seen and examined. Currently on 8 L of oxygen via high flow nasal cannula. States he feels much better, breathing is improved, pulmonology recommended sniff test to look for right diaphragm paralysis 10/03. Patient seen and examined. Continues to be on 15 L of oxygen. Patient is not lethargic, states gets short of breath on exertion. Denies any nausea or vomiting 10/04/2023 Patient seen and evaluated in follow-up today continues to be dyspneic maintained on high flow oxygen is being transferred to Air. Per nursing staff he continues to remove his nasal cannula as well as nonrebreather and respiratory following recommending i continuing this for a few hours. Patient has noted to be COVID-positive. Sodium is slightly low at 132 potassium was 3.3 yesterday and replaced awaiting follow-up labs. Patient with prolonged hospitalization and continued weakness will likely need ECF once stabilized. 10/05/2023 Patient is seen in follow-up this morning continues on Airvo with maximum oxygen at 60/90 maintaining oxygen saturations in the 88 percentile range. Patient reports having worsening shortness of breath although appears somewhat confused at times. Discussed CODE STATUS with the patient and he wishes to remain full code. Patient is agreeable to mechanical ventilation if required. Patient continues to remove his oxygen from his face desats very quickly. Will get a chest x-ray and continue to monitor closely. Pulmonary and infectious disease following and patient is continued on cefepime with concerns of pneumonia. Patient is currently afebrile and denies chest pain or shortness of breath. Patient reports he is eating although not much of an appetite. 10/06/2023 Patient is seen in follow-up today was transferred to the ICU for respiratory decline per nursing staff as patient continued to have respiratory distress and low oxygen saturations becoming more hypoxic and confused. Patient is continued on Airvo max 60/90 with continued intermittent nonrebreather use. Patient is continued on steroids along with inhalers and pulmonary is following closely. Patient is afebrile with no reported chest pain or shortness of breath. Patient reports to tolerating diet although appears not to be eating very much at all. 10/07/2023 Patient is seen and evaluated in follow-up today continues in the ICU on high flow Airvo 60 L / 90% with oxygen saturations in the low 90s. On exam patient was found to have Airvo out of his nostrils and using nonrebreather and oxygen saturation was 93%. Patient is maintained on antibiotics with infectious disease following closely along with pulmonary battery plate remover. CODE STATUS was addressed once again and patient wishes to remain full code. Wean FiO2 as tolerated. Encouraged oral intake. Patient to be evaluated by physical therapy once respiratory status improved and will need rehab. 10/18/2023 pt condition is still critical and his response to treatment is guarded pt is still intubated , requring peep of 12 pt is hypotensive could not tolerate weaning pressores down still on aimpalla his wbc is 20k, hb dropped down to 6.3 and after 2 units of blood transfusion came up to 7.7 still on asprin and brillinta, on iv protnox bid and pepcid, on iv vancomycin, meropenem family may consider more palliative management management discussed with staff 10/19/2023 pt remains intubated and sedated on mechanical ventilation with pulmonary and critical care team are following and managing vent very closely he is still on high peep at 15 he is not suitable for weaning attempts yet he is having maroon stool with gi bleed , so heparin drip on hold also on protonix , surgery team recommend colonoscopy when hemodynamically stable his pressors were stopped and impalla went down to p6 10/20/2023 Patient remains intubated in the critical care unit Yesterday the Impella was removed. Still requiring small dose of pressors CT of the brain is negative for acute process EEG showing severe metabolic encephalopathy however there is some electrical activity suggestive of tendency toward seizure but no seizure activity. Keppra 500 mg twice daily was added. Patient also on meropenem. IV Lasix 40 mg every 8 hours. 10/21/2023 Patient remains intubated sedated with Critical care team following and monitor ing closely and help in vent management He was placed off sedation today however there is no change in his mental status. No much response. Neurology on the case and is repeating EEG this morning. Patient currently he is off heparin drip continued on dual antiplatelet therapy with aspirin and Brilinta Also he is getting meropenem for antibiotic and Diflucan. On Keppra and midodrine I discussed the case with Dr. Toribio from cardiology today Patient remains intubated in the ICU. With pulmonary/critical care team following closely. He is off sedation today and from yesterday but does not show signs of waking up or communicating. Patient is less tachycardic but still tachypneic. He is afebrile. Blood pressure actually improved to 133/69 He is on IV Lasix 40 mg every 8 hours He is on Keppra 500 mg increased today to 750 mg. Continue with dual antiplatelet therapy 10/22/2022 Patient remains in the ICU intubated He is off sedation, there was no response and is not opening eyes or follow commands. Patient is afebrile. WBC is 18,000, hemoglobin 8.3, sodium 132, creatinine 2.1, He is on aspirin and Brilinta. Keppra 750 mg 10/24/2023 Patient is seen in follow-up in the ICU remains off all sedation and unresponsive. Neurology following has undergone [address] brain showing no acute process. EEG is remain abnormal and patient is not following any commands or making any movements at this time. Patient being followed by multiple medical consultations including general surgery with discussion of possible PEG and trach placement. Family at this point wishes for patient to remain full code and all treatments to continue as possible. Waiting to speak with other family members regarding overall prognosis. Discussed with daughter Bridget about overall prognosis and she is requesting to speak with neurology and later speak with her other family members regarding CODE STATUS and treatment plan moving forward. Overall prognosis remains extremely poor. Anticoagulation is on hold with concerns of possible GI bleed and may need EGD/colonoscopy prior to PEG and trach placement. General surgery is on board and following. REVIEW OF SYSTEMS: Unable to assess as patient is maintained on mechanical ventilation and unresponsive PHYSICAL EXAMINATION: GENERAL: The patient is a 77-year-old male who remains on mechanical vent, FiO2 is 50% with a PEEP of 8. Well developed, obese, ill-appearing. Unresponsive and off all sedation HEENT: Pupils are round and equally reacting to light. EOMI. No scleral icterus. No conjunctival pallor. Normocephalic, atraumatic. No pharyngeal erythema. No thyromegaly. CARDIOVASCULAR: S1 and S2 muffled PULMONARY: Coarse breath sound bilaterally, no wheeze, no crackles audible ABDOMEN: Soft, obese, nontender, nondistended, hypoactive bowel sounds. No palpable organomegaly. MUSCULOSKELETAL: 1+ pitting edema lower extremities bilaterally, upper extremity swelling noted as well EXTREMITIES: No cyanosis, clubbing noted NEUROLOGICAL: Patient is unresponsive and not following any commands off all sedation SKIN: No rashes. Assessment: acute STEMI s/p Emergent cardiac cath and 5 stents placement Cardiogenic shock and possible septic shock secondary to above Anoxic brain injury Acute systolic congestive heart failure exacerbation with an EF of 20 to 25% from 10/18/2023 echo Acute hypoxic respiratory failure requiring intubation and mechanical ventilation acute GI Bleed requring blood transfusion, anticoagulation remains on hold Acute kidney injury with kidney functioning that was worsening, acute tubular necrosis secondary to cardiac arrest Hyponatremia secondary to poor oral intake COVID-19 Acute hypoxic respiratory failure secondary to COVID-19, requiring high flow oxygen Altered mental status, with toxic metabolic encephalopathy likely secondary to hypoxia Generalized weakness Rhabdomyolysis. Improved Fall Urinary retention requiring indwelling Rosales catheter Hypothyroidism Hypertension Obesity with a BMI of 35.0 GI prophylaxis DVT prophylaxis Full code Plan: Patient is continued on mechanical ventilation. FiO2 is 50% and PEEP is 8. Attempted trial weaning and failed miserably. Pulmonary battery plate remover following recommending possible PEG and trach placement Neurology following and patient has remained off all sedation for the last 2 days. Continue with aspirin and Brilinta Cardiology following as well as patient is status post acute STEMI with emergent cardiac catheterization requiring 5 stents and was weaned off Impella Continue with insulin coverage Multiple medical consultations following including nephrology as well regarding kidney injury remains on IV Lasix. Patient will be given a dose of DDAVP today. Conversation had with family regarding CODE STATUS and overall prognosis and family currently wishes the patient to remain full code at this time. Prognosis is extremely poor and extremely guarded at this time. Family is wishing to speak with neurology and discuss further about making any decisions regarding treatment plans and/or hospice Will follow-up on repeat labs in the a.m. and continue to monitor closely Again overall prognosis is extremely poor and guarded given patient's significant comorbidities. The impression and plan of care has been dictated by Margie Patricio, Nurse Practitioner as directed. Dr. Barr. I have performed a history and examination and MDM of this patient, discussed the same with the dictator, and agree with the dictator's assessment and plan as written ,documented as a scribe. Based on total visit time, I have performed more than 50% of the visit. Objective - Vital Signs Vital signs: Vital Signs Temp 98.8 F 10/24/23 07:23 Pulse 98 10/24/23 08:08 Resp 33 H 10/24/23 08:08 BP 98/64 10/24/23 07:00 Pulse Ox 97 10/24/23 07:00 FiO2 50 10/24/23 09:26 Intake & Output 10/23/23 10/24/23 10/24/23 18:59 06:59 18:59 Intake Total 1405 1109 163 Output Total 1910 1080 100 Balance -505 29 63 Weight 122.47 kg Intake: IV 370 200 100 0.9 80 Invasive Line 6 20 Invasive Line 9 70 Magnesium Sulfate-D5w Pmx 100 1 gm In Dextrose/Water 1 100ml.bag @ 100 mls/hr IVPB ONCE ONE Rx#: [id number] Meropenem 1 gm In Sodium 100 Chloride 0.9% 100 ml @ 33 .3 mls/hr IVPB Q8HR [facility] Rx#:[id number] Potassium Chloride 10 meq 100 100 100 In Water For Injection 1 100ml.bag @ 100 mls/hr IVPB Q1H [facility] Rx#: [id number] Tube Feeding 945 819 63 Other 90 90 Output: Urine 1909 1080 100 Other: Voiding Method Indwelling Catheter Indwelling Catheter # Bowel Movements 0 ABP, PAP, CO, CI - Last Documented Arterial Blood Pressure 111/51 - Labs CBC & Chem 7: 10/24/23 04:24 10/24/23 04:24 Labs: Abnormal Lab Results - Last 24 Hours (Table) 10/23/23 10/23/23 10/23/23 Range/Units 10:16 11:47 15:02 WBC (3.8-10.6) k/uL RBC (4.30-5.90) m/uL Hgb (13.0-17.5) gm/dL Hct (39.0-53.0) % RDW (11.5-15.5) % Neutrophils # (1.3-7.7) k/uL ABG pH (7.35-7.45) ABG HCO3 (21-25) mmol/L ABG Total CO2 (19-24) mmol/L ABG O2 Saturation (94-97) % Chloride (98-107) mmol/L BUN (9-20) mg/dL Creatinine (0.66-1.25) mg/dL Glucose (74-99) mg/dL POC Glucose (mg/dL) 212 H 215 H 141 H (70-110) mg/dL Calcium (8.4-10.2) mg/dL 10/23/23 10/24/23 10/24/23 Range/Units 20:34 00:24 03:48 WBC (3.8-10.6) k/uL RBC (4.30-5.90) m/uL Hgb (13.0-17.5) gm/dL Hct (39.0-53.0) % RDW (11.5-15.5) % Neutrophils # (1.3-7.7) k/uL ABG pH (7.35-7.45) ABG HCO3 (21-25) mmol/L ABG Total CO2 (19-24) mmol/L ABG O2 Saturation (94-97) % Chloride (98-107) mmol/L BUN (9-20) mg/dL Creatinine (0.66-1.25) mg/dL Glucose (74-99) mg/dL POC Glucose (mg/dL) 195 H 177 H 191 H (70-110) mg/dL Calcium (8.4-10.2) mg/dL 10/24/23 10/24/23 10/24/23 Range/Units 04:24 04:24 04:44 WBC 17.2 H (3.8-10.6) k/uL RBC 2.47 L (4.30-5.90) m/uL Hgb 7.5 L (13.0-17.5) gm/dL Hct 23.5 L (39.0-53.0) % RDW 16.9 H (11.5-15.5) % Neutrophils # 14.1 H (1.3-7.7) k/uL ABG pH 7.51 H (7.35-7.45) ABG HCO3 28 H (21-25) mmol/L ABG Total CO2 29 H (19-24) mmol/L ABG O2 Saturation 99.0 H (94-97) % Chloride 109 H (98-107) mmol/L BUN 102 H* (9-20) mg/dL Creatinine 2.29 H (0.66-1.25) mg/dL Glucose 155 H (74-99) mg/dL POC Glucose (mg/dL) (70-110) mg/dL Calcium 7.2 L (8.4-10.2) mg/dL 10/24/23 Range/Units 07:18 WBC (3.8-10.6) k/uL RBC (4.30-5.90) m/uL Hgb (13.0-17.5) gm/dL Hct (39.0-53.0) % RDW (11.5-15.5) % Neutrophils # (1.3-7.7) k/uL ABG pH (7.35-7.45) ABG HCO3 (21-25) mmol/L ABG Total CO2 (19-24) mmol/L ABG O2 Saturation (94-97) % Chloride (98-107) mmol/L BUN (9-20) mg/dL Creatinine (0.66-1.25) mg/dL Glucose (74-99) mg/dL POC Glucose (mg/dL) 192 H (70-110) mg/dL Calcium (8.4-10.2) mg/dL
--- NOTE | 2023-10-24 15:00 | P.PN ---
Subjective Progress Note Date: 10/24/23 I am seeing the patient for the first time during this admission. Please refer to Dr. Matos's and Josh's notes. Hortensia 7-year-old gentleman had 2 cardiac arrest on 10/14/2023 and reported downtime was 79 minutes and about 10-50 minutes during cardiac catheterization it's reported. It's reported that the patient has acute hypoxic respiratory failure he is on the intubated on ventilator. He has a long history of seizure disorder/epilepsy. Seems the patient had 2 EEGs during this hospital visit and there is no seizure noted during the study. Also the patient had two CT of the head and there are negative for any acute intracranial process. He continues to be not responding follow commands according to the primary team. Objective - Vital Signs Vital signs: Vital Signs Temp 98.2 F 10/24/23 08:00 Pulse 93 10/24/23 12:00 Resp 27 H 10/24/23 12:00 BP 113/62 10/24/23 12:00 Pulse Ox 97 10/24/23 12:00 FiO2 50 10/24/23 12:00 Intake & Output 10/23/23 10/24/23 10/24/23 18:59 06:59 18:59 Intake Total 1405 1109 706 Output Total 1910 1080 895 Balance -505 29 -189 Weight 122.47 kg 122.47 kg Intake: IV 370 200 100 0.9 80 Invasive Line 6 20 Invasive Line 9 70 Magnesium Sulfate-D5w Pmx 100 1 gm In Dextrose/Water 1 100ml.bag @ 100 mls/hr IVPB ONCE ONE Rx#: [id number] Meropenem 1 gm In Sodium 100 Chloride 0.9% 100 ml @ 33 .3 mls/hr IVPB Q8HR [facility] Rx#:[id number] Potassium Chloride 10 meq 100 100 100 In Water For Injection 1 100ml.bag @ 100 mls/hr IVPB Q1H [facility] Rx#: [id number] Tube Feeding 945 819 546 Other 90 90 60 Output: Urine 1910 1080 895 Other: Voiding Method Indwelling Catheter Indwelling Catheter Indwelling Catheter # Bowel Movements 0 0 ABP, PAP, CO, CI - Last Documented Arterial Blood Pressure 111/51 - Exam General is lying in bed and is not in acute distress Lung: He is intubated on a ventilator Neuro- The patient is comatose. GCS 3 (E1, VT1, M1). I had to manually open his eyes and primary gaze is midline. Pupils are 4mm and reactive to light bilaterally. No obvious facial weakness. Motor: Hard to assess individual muscle strength. Not withdrawing to painful stimuli. - Labs CBC & Chem 7: 10/24/23 04:24 10/24/23 04:24 Labs: Abnormal Lab Results - Last 24 Hours (Table) 10/23/23 10/23/23 10/24/23 Range/Units 15:02 20:34 00:24 WBC (3.8-10.6) k/uL RBC (4.30-5.90) m/uL Hgb (13.0-17.5) gm/dL Hct (39.0-53.0) % RDW (11.5-15.5) % Neutrophils # (1.3-7.7) k/uL ABG pH (7.35-7.45) ABG HCO3 (21-25) mmol/L ABG Total CO2 (19-24) mmol/L ABG O2 Saturation (94-97) % Chloride (98-107) mmol/L BUN (9-20) mg/dL Creatinine (0.66-1.25) mg/dL Glucose (74-99) mg/dL POC Glucose (mg/dL) 141 H 195 H 177 H (70-110) mg/dL Calcium (8.4-10.2) mg/dL 10/24/23 10/24/23 10/24/23 Range/Units 03:48 04:24 04:24 WBC 17.2 H (3.8-10.6) k/uL RBC 2.47 L (4.30-5.90) m/uL Hgb 7.5 L (13.0-17.5) gm/dL Hct 23.5 L (39.0-53.0) % RDW 16.9 H (11.5-15.5) % Neutrophils # 14.1 H (1.3-7.7) k/uL ABG pH (7.35-7.45) ABG HCO3 (21-25) mmol/L ABG Total CO2 (19-24) mmol/L ABG O2 Saturation (94-97) % Chloride 109 H (98-107) mmol/L BUN 102 H* (9-20) mg/dL Creatinine 2.29 H (0.66-1.25) mg/dL Glucose 155 H (74-99) mg/dL POC Glucose (mg/dL) 191 H (70-110) mg/dL Calcium 7.2 L (8.4-10.2) mg/dL 10/24/23 10/24/23 10/24/23 Range/Units 04:44 07:18 11:43 WBC (3.8-10.6) k/uL RBC (4.30-5.90) m/uL Hgb (13.0-17.5) gm/dL Hct (39.0-53.0) % RDW (11.5-15.5) % Neutrophils # (1.3-7.7) k/uL ABG pH 7.51 H (7.35-7.45) ABG HCO3 28 H (21-25) mmol/L ABG Total CO2 29 H (19-24) mmol/L ABG O2 Saturation 99.0 H (94-97) % Chloride (98-107) mmol/L BUN (9-20) mg/dL Creatinine (0.66-1.25) mg/dL Glucose (74-99) mg/dL POC Glucose (mg/dL) 192 H 181 H (70-110) mg/dL Calcium (8.4-10.2) mg/dL Assessment and Plan Assessment: Status post cardiac arrest x 2, on 10/14/2023 with ventricular tachycardia and ventricular fibrillation. Downtime reported about 7-9 minutes the first time, and about 10 to 15 minutes during cardiac catheterization. Probable severe anoxic encephalopathy. The patient is now 10 days status postcardiac arrest. He continues to be unresponsive. Brainstem reflexes continue to be intact. There is no evidence of cortical activity. Overall metabolic status continues to decline * Acute hypoxic respiratory failure secondary to cardiac arrest, on mechanical ventilation * Longstanding history of seizure disorder/epilepsy. * Status post cardiac catheterization for acute lateral ST segment elevation myocardial infarction and the patient underwent emergent cardiac catheterization. The patient underwent a complicated coronary intervention requiring Impella for hemodynamic support, stenting of the left main, circumflex, proximal and mid RCA. A total of 5 stents were inserted. * Upper GI bleeding related to various antiplatelet agents and anticoagulation patient is now off heparin he is on aspirin and Plavix * Acute blood loss anemia requiring transfusion * Acute kidney injury, could be cardiorenal in nature, getting worse. * CHF, with EF 20% * Pneumonia * Acute hypoxic metabolic encephalopathy * History of COVID-19 pneumonia, recovering * History of seizure disorder * Hypothyroidism * Hypertension * Ex-smoke Plan: * Repeat CT head performed 10/20/2023 showed no acute intracranial process. Nonspecific mild paranasal sinus disease. Agree with the findings. * Repeat EEG performed today revealed continued moderate to severe background slowing consistent with encephalopathy. Sporadic sharply contoured waves were seen, better as compared to the EEG from yesterday. No electrographic seizure recorded. No electrographic evidence of status. * Initial EEG performed today. It was abnormal due to background slowing of moderate to severe degree, suggestive of encephalopathy. Presence of sporadic intermittent generalized sharp appearing waves, which occasionally becomes more rhythmic at about 1 Hz, suggestive of underlying cortical irritability and tendency for seizure. No electrographic seizure was recorded. Clinical correlation and a follow-up EEG recommended. * Patient currently on Depakote. Depakote level <10.0, ammonia 17 which is normal. * On Keppra to 750 mg twice daily. * Other medical management as per IM, critical care and other specialties on board. * He continues to be unresponsive. Brainstem reflexes continue to be intact. There is no evidence of cortical activity. Overall metabolic status continues to decline Prognosis poor. The plan is discussed with patient's daughter who is at bedside. The daughter was notified by primary if family was to resume all care then he needs a PEG and Trach and daughter stated she will speak with rest of family members today. Time with Patient: Less than 30
[2023-10-24 16:05] LABS: Glucose,Whole Blood 199 mg/dL (70-110)
[2023-10-24 19:49] LABS: Glucose,Whole Blood 179 mg/dL (70-110)
--- NOTE | 2023-10-24 23:14 | P.PN ---
Subjective Progress Note Date: 10/24/23 Principal diagnosis: Reason for follow-up is COVID-19 and pneumonia Patient is a 77-year-old male with a past medical history significant for hypertension seizure disorder hypothyroidism patient has been brought into the hospital for evaluation of generalized weakness patient was noticed to be on the bathroom floor after apparently patient fell down, patient did tested positive for COVID-19, initial chest x-ray reported negative.Patient did have significant change in his clinical condition and did have a cardiac arrest on 10/14/2023 the patient was taken to the [facility] and did have PTCA and stenting x 5 subsequently patient has been admitted to ICU. On today's evaluation that is 10/24/2023,the patient did spike a fever of 101 F at midnight patient is afebrile since then patient is currently on vent with FiO2 of 50% patient mentation remains to be an issue and is not waking up to the nursing staff no worsening diarrhea has been reported. Patient white count is down to 17.2 creatinine is 2.29 Objective - Vital Signs Vital signs: Vital Signs Temp 98.2 F 10/24/23 08:00 Pulse 93 10/24/23 12:00 Resp 27 H 10/24/23 12:00 BP 113/62 10/24/23 12:00 Pulse Ox 97 10/24/23 12:00 FiO2 50 10/24/23 12:00 Intake & Output 10/23/23 10/24/23 10/24/23 18:59 06:59 18:59 Intake Total 1405 1109 706 Output Total 1910 1080 895 Balance -505 29 -189 Weight 122.47 kg 122.47 kg Intake: IV 370 200 100 0.9 80 Invasive Line 6 20 Invasive Line 9 70 Magnesium Sulfate-D5w Pmx 100 1 gm In Dextrose/Water 1 100ml.bag @ 100 mls/hr IVPB ONCE ONE Rx#: [id number] Meropenem 1 gm In Sodium 100 Chloride 0.9% 100 ml @ 33 .3 mls/hr IVPB Q8HR [facility] Rx#:[id number] Potassium Chloride 10 meq 100 100 100 In Water For Injection 1 100ml.bag @ 100 mls/hr IVPB Q1H [facility] Rx#: [id number] Tube Feeding 945 819 546 Other 90 90 60 Output: Urine 1909 1080 895 Other: Voiding Method Indwelling Catheter Indwelling Catheter Indwelling Catheter # Bowel Movements 0 0 ABP, PAP, CO, CI - Last Documented Arterial Blood Pressure 111/51 - Exam GENERAL DESCRIPTION: An elderly male intubated on the vent RESPIRATORY SYSTEM: Unlabored breathing , decreased breath sounds at bases HEART: S1 S2 regular rate and rhythm , ABDOMEN: Soft , no tenderness EXTREMITIES: No edema feet - Labs CBC & Chem 7: 10/24/23 04:24 10/24/23 04:24 Labs: Abnormal Lab Results - Last 24 Hours (Table) 10/23/23 10/23/23 10/24/23 Range/Units 15:02 20:34 00:24 WBC (3.8-10.6) k/uL RBC (4.30-5.90) m/uL Hgb (13.0-17.5) gm/dL Hct (39.0-53.0) % RDW (11.5-15.5) % Neutrophils # (1.3-7.7) k/uL ABG pH (7.35-7.45) ABG HCO3 (21-25) mmol/L ABG Total CO2 (19-24) mmol/L ABG O2 Saturation (94-97) % Chloride (98-107) mmol/L BUN (9-20) mg/dL Creatinine (0.66-1.25) mg/dL Glucose (74-99) mg/dL POC Glucose (mg/dL) 141 H 195 H 177 H (70-110) mg/dL Calcium (8.4-10.2) mg/dL 10/24/23 10/24/23 10/24/23 Range/Units 03:48 04:24 04:24 WBC 17.2 H (3.8-10.6) k/uL RBC 2.47 L (4.30-5.90) m/uL Hgb 7.5 L (13.0-17.5) gm/dL Hct 23.5 L (39.0-53.0) % RDW 16.9 H (11.5-15.5) % Neutrophils # 14.1 H (1.3-7.7) k/uL ABG pH (7.35-7.45) ABG HCO3 (21-25) mmol/L ABG Total CO2 (19-24) mmol/L ABG O2 Saturation (94-97) % Chloride 109 H (98-107) mmol/L BUN 102 H* (9-20) mg/dL Creatinine 2.29 H (0.66-1.25) mg/dL Glucose 155 H (74-99) mg/dL POC Glucose (mg/dL) 191 H (70-110) mg/dL Calcium 7.2 L (8.4-10.2) mg/dL 10/24/23 10/24/23 10/24/23 Range/Units 04:44 07:18 11:43 WBC (3.8-10.6) k/uL RBC (4.30-5.90) m/uL Hgb (13.0-17.5) gm/dL Hct (39.0-53.0) % RDW (11.5-15.5) % Neutrophils # (1.3-7.7) k/uL ABG pH 7.51 H (7.35-7.45) ABG HCO3 28 H (21-25) mmol/L ABG Total CO2 29 H (19-24) mmol/L ABG O2 Saturation 99.0 H (94-97) % Chloride (98-107) mmol/L BUN (9-20) mg/dL Creatinine (0.66-1.25) mg/dL Glucose (74-99) mg/dL POC Glucose (mg/dL) 192 H 181 H (70-110) mg/dL Calcium (8.4-10.2) mg/dL Assessment and Plan (1) COVID-19 Current Visit: Yes Status: Acute Code(s): U07.1 - COVID-19 SNOMED Code(s): 146344009 (2) Sepsis Current Visit: Yes Status: Acute Code(s): A41.9 - SEPSIS, UNSPECIFIED ORGANISM SNOMED Code(s): 24674582 (3) Pneumonia Current Visit: Yes Status: Acute Code(s): J18.9 - PNEUMONIA, UNSPECIFIED ORGANISM SNOMED Code(s): 261613120 (4) Penicillin allergy Current Visit: Yes Status: Acute Code(s): Z88.0 - ALLERGY STATUS TO PENICILLIN SNOMED Code(s): 04760886 (5) Thrush, oral Current Visit: Yes Status: Acute Code(s): B37.0 - CANDIDAL STOMATITIS SNOMED Code(s): 68429274 Plan: 1patient did have significant changes in clinical condition he did have a cardiac arrest on 10/14/2023 Patient Was Taken to the [facility] status post PTCA and stenting x 5 patient did have a new fever and is requiring pressor support 2- blood cultures and sputum for Gram stain culture are so far negative 3-patient did have a new fever at midnight the patient is afebrile since then humphrey engle white count is trending down questionably central fever we will recheck his inflammatory markers and blood cultures with a.m. lab and for now continue with the meropenem and continue supportive care prognosis remains to be guarded Dictation was produced using [employer] dictation software. please excuse any grammatical, word or spelling errors. Time with Patient: Less than 30
[2023-10-24 23:47] LABS: Glucose,Whole Blood 175 mg/dL (70-110)
[2023-10-25 03:54] LABS: ABG HCO3 28 mmol/L (21-25); ABG Oxygen Saturation 98.6 % (94-97); ABG PCO2 36 mmHg (35-45); ABG PO2 105 mmHg (83-108); ABG TCO2 29 mmol/L (19-24); Allen Test Performed? Yes
[2023-10-25 04:10] LABS: Glucose,Whole Blood 198 mg/dL (70-110)
[2023-10-25 04:54] LABS: Anisocytosis Slight; Basophils # (A) 0.1 k/uL (0-0.2); Basophils % (A) 0 %; Eosinophils # (A) 0.1 k/uL (0-0.7); Eosinophils % (A) 0 %; HCT 22.6 % (39.0-53.0); HGB 7.1 gm/dL (13.0-17.5); Hypochromasia Slight; Lymphocytes % (A) 11 %; MCHC 31.4 g/dL (31.0-37.0); MCV 95.4 fL (80.0-100.0); Macrocytosis Slight; Mean Platelet Volume 10.7; Monocytes # (A) 0.7 k/uL (0-1.0); Monocytes % (A) 4 %; Neutrophils # (A) 15.2 k/uL (1.3-7.7); Neutrophils % (A) 83 %; Platelet Count 199 k/uL (150-450); RBC 2.37 m/uL (4.30-5.90); RDW 16.7 % (11.5-15.5); WBC 18.2 k/uL (3.8-10.6)
[2023-10-25 05:06] LABS: Potassium 3.7 mmol/L (3.5-5.1)
[2023-10-25 05:10] LABS: African American GFR (CKD) 29 (>60 ml/min/1.73 sqM); Anion Gap 9 mmol/L; C Reactive Protein 4.3 mg/dL (<1.0); Calcium 7.2 mg/dL (8.4-10.2); Carbon Dioxide 27 mmol/L (22-30); Chloride 110 mmol/L (98-107); Glucose 150 mg/dL (74-99); Non-African American GFR(CKD) 25 (>60 ml/min/1.73 sqM); Sodium 146 mmol/L (137-145)
[2023-10-25 05:15] LABS: Blood Urea Nitrogen 128 mg/dL (9-20)
[2023-10-25] MEDS ORDERED: POTASSIUM BICARBONATE/CIT AC 20 MEQ TABLET.EFF NG-TUBE SCH (06:00)
--- NOTE | 2023-10-25 07:52 | P.PN ---
Subjective Progress Note Date: 10/25/23 PROGRESS NOTE The patient is a 77-year-old male who presented on September 27 with syncope, weakness. On October 13 he had an acute cardiac arrest and had an acute myocardial infarction, underwent angioplasty and stenting of the LAD, left main and the left circumflex with placement of Impella support. He had evidence of severe cardiomyopathy. The Impella has been removed, he remains intubated off sedation with no neurological response. He is in sinus mechanism and on no vasopressor. His recent neurological workup showed severe anoxic brain injury and severe anoxic encephalopathy. The patient so far remains full code and will be reassessed by the critical care team and neurology with the family. He had anemia as well as acute renal injury. October 24: The patient remains intubated, unresponsive. In atrial fibrillation with controlled ventricular response. The patient is no code at this time and the family is considering hospice care. He had not received sedation for over 72 hours. Medications: Aspirin, amiodarone 400 mg twice a day, Lipitor 80 mg daily, furosemide 40 mg IV every 8 hours, levothyroxine, Brilinta 90 mg twice a day PHYSICAL EXAMINATION: Blood pressure 100/54 heart rate 95, no neurological response LUNGS:, Intubated, lungs clear anteriorly HEART: Regular rate and rhythm, S1, S2. No S3. Systolic ejection murmur ABDOMEN: Soft, no organomegaly EXTREMETIES: +1 edema LAB: Hemoglobin 7.1, WBC 18.2, BUN 128, creatinine 2.42. Potassium 3.7 IMPRESSION: 1. Severe anoxic encephalopathy, status postcardiac arrest 2. Status postacute myocardial infarction with stenting 3. Severe ischemic cardiomyopathy with Impella support post [place] 4. Acute renal injury 5. Anemia 6. Status post cardiac arrest x 2 7. GI bleeding 8. Status post recent COVID-pneumonia PLAN: 1. Decrease amiodarone to 200 mg twice a day 2. Discussion with the family per intensive care team and neurology regarding prognosis. 3. Prognosis is poor 4. Depending on the decision further recommendations will be made Objective - Vital Signs Vital signs: Vital Signs Temp 98.3 F 10/25/23 04:00 Pulse 95 10/25/23 07:00 Resp 29 H 10/25/23 07:00 BP 100/54 10/25/23 07:00 Pulse Ox 96 10/25/23 07:00 FiO2 50 10/25/23 04:00 Intake & Output 10/24/23 10/25/23 10/25/23 18:59 06:59 18:59 Intake Total 1236 1000 70 Output Total 2230 1405 75 Balance -994 -405 -5 Weight 122.47 kg 122.2 kg Intake: IV 100 Potassium Chloride 10 meq 100 In Water For Injection 1 100ml.bag @ 100 mls/hr IVPB Q1H [facility] Rx#: [id number] Tube Feeding 1036 910 70 Other 100 90 Output: Urine 2230 1405 75 Other: Voiding Method Indwelling Catheter Indwelling Catheter # Bowel Movements 0 0 1 ABP, PAP, CO, CI - Last Documented Arterial Blood Pressure 111/51 - Labs CBC & Chem 7: 10/25/23 04:12 10/25/23 04:12 Labs: Abnormal Lab Results - Last 24 Hours (Table) 10/24/23 10/24/23 10/24/23 Range/Units 11:43 16:04 19:48 WBC (3.8-10.6) k/uL RBC (4.30-5.90) m/uL Hgb (13.0-17.5) gm/dL Hct (39.0-53.0) % RDW (11.5-15.5) % Neutrophils # (1.3-7.7) k/uL ABG pH (7.35-7.45) ABG HCO3 (21-25) mmol/L ABG Total CO2 (19-24) mmol/L ABG O2 Saturation (94-97) % Sodium (137-145) mmol/L Chloride (98-107) mmol/L BUN (9-20) mg/dL Creatinine (0.66-1.25) mg/dL Glucose (74-99) mg/dL POC Glucose (mg/dL) 181 H 199 H 179 H (70-110) mg/dL Calcium (8.4-10.2) mg/dL C-Reactive Protein (<1.0) mg/dL 10/24/23 10/25/23 10/25/23 Range/Units 23:46 03:50 04:08 WBC (3.8-10.6) k/uL RBC (4.30-5.90) m/uL Hgb (13.0-17.5) gm/dL Hct (39.0-53.0) % RDW (11.5-15.5) % Neutrophils # (1.3-7.7) k/uL ABG pH 7.50 H (7.35-7.45) ABG HCO3 28 H (21-25) mmol/L ABG Total CO2 29 H (19-24) mmol/L ABG O2 Saturation 98.6 H (94-97) % Sodium (137-145) mmol/L Chloride (98-107) mmol/L BUN (9-20) mg/dL Creatinine (0.66-1.25) mg/dL Glucose (74-99) mg/dL POC Glucose (mg/dL) 175 H 198 H (70-110) mg/dL Calcium (8.4-10.2) mg/dL C-Reactive Protein (<1.0) mg/dL 10/25/23 10/25/23 Range/Units 04:12 04:12 WBC 18.2 H (3.8-10.6) k/uL RBC 2.37 L (4.30-5.90) m/uL Hgb 7.1 L (13.0-17.5) gm/dL Hct 22.6 L (39.0-53.0) % RDW 16.7 H (11.5-15.5) % Neutrophils # 15.2 H (1.3-7.7) k/uL ABG pH (7.35-7.45) ABG HCO3 (21-25) mmol/L ABG Total CO2 (19-24) mmol/L ABG O2 Saturation (94-97) % Sodium 146 H (137-145) mmol/L Chloride 110 H (98-107) mmol/L BUN 128 H* (9-20) mg/dL Creatinine 2.42 H (0.66-1.25) mg/dL Glucose 150 H (74-99) mg/dL POC Glucose (mg/dL) (70-110) mg/dL Calcium 7.2 L (8.4-10.2) mg/dL C-Reactive Protein 4.3 H (<1.0) mg/dL
--- NOTE | 2023-10-25 08:29 | XR ---
EXAMINATION TYPE: XR chest 1V portable DATE OF EXAM: 10/25/2023 Comparison: 10/24/2023 Clinical History: 77-year-old male ICU follow-up, mechanical ventilation Findings: ET and NG tubes satisfactory. Asymmetric elevation right hemidiaphragm. Mild interstitial density rem ains. Patchy airspace opacity throughout the right lung persists. There is some overlying external ar tifact which increases the density here. Impression: Similar asymmetric elevation right hemidiaphragm and patchy opacity throughout the right lung.
[2023-10-25 08:49] LABS: Glucose,Whole Blood 171 mg/dL (70-110)
--- NOTE | 2023-10-25 11:18 | P.PN ---
Subjective Progress Note Date: 10/25/23 Principal diagnosis: Weakness. Generalized weakness secondary to COVID-19 infection and hyponatremia with possible diaphragm paralysis and acute hypoxic respiratory failure This is a 77-year-old male patient with a history of hypertension, seizure disorder, thyroid disorder, former smoker. On September 27, 2023 the patient had gotten up to go the bathroom and slumped onto the ground. He had been reportedly laying on the ground for several hours by family were attempting to get in helping him get up but he was unable to support himself. He also had trouble with urinary incontinence. EMS was called and he was brought here for evaluation. CT scan of the brain revealed no acute intracranial hemorrhage, midline shift or mass effect. EKG revealed sinus rhythm with no significant ST or T wave abnormalities. White count 14.9. Hemoglobin 12.9. Platelets 146. Sodium 126. Potassium 3.9. Bicarb 26. BUN 15. Creatinine 0.68. Glucose 152. AST 148. ALT 43. Creatinine kinase 2283. He did test positive for COVID-19 infection. His initial sodium level was 118. BUN of 24 and a creatinine of 1.26. He had been seen by nephrology, urology and infectious disease. A chest x-ray was done today September 30, 2023 that revealed an elevated right hemidiaphragm and we are consulted for the same. He was sent for a sniff test however the patient was unable to perform the appropriate maneuvers due to overall condition. He is seen on consultation on the selective care unit. He is currently resting in bed. Difficult to arouse but arousable. He is on a nonrebreather mask with O2 saturation of 90%. Currently afebrile. Hemodynamically stable. He has been initiated on Decadron. Antibiotics in the form of cefepime. Saline at 50 MLS per hour. Patient was evaluated today on 10/01/2023, more awake today, more responsive, seems to be more alert, and remains on a nonrebreather mask which I have recommended to transition to high flow nasal cannula. Patient did transition to 10 L high flow nasal cannula and O2 saturation was ranging between 92 up to 96% definitely better today compared to the last couple of days. Still planning to repeat his sniff test to evaluate for right hemidiaphragm paralysis. Procalcitonin level came back elevated at 0.43, patient remains on antibiotics for presumptive right lower lobe pneumonia. WBC count today 13.9 hemoglobin 13.0.Basic metabolic profile is relatively normal. Reevaluated today on 10/02/2023, patient is on 10 L high flow nasal cannula, doing better, breathing easier, O2 saturation is in the low 90s, patient continues to have diminished breath sounds at the right base, and I believe the patient has right hemidiaphragm paralysis with right lower lobe atelectasis, possible underlying pneumonia, but I feel clinically this is not the picture. At any rate the patient is supposed to have a sniff test tomorrow, may even have to consider a CT of the chest to evaluate the right lower lobe further. Based on the sniff test, further recommendations will follow. In the meantime patient is gradually improving, feeling better, breathing easier and definitely his neurological status is significantly improved now compared to how he was few days ago WBC count is 10.2 hemoglobin is 12.3, sodium is up to 130, potassium 3.1 renal profile is normal procalcitonin level on this patient was 0.43, hence he was empirically placed on antibiotics for presumptive right lower lobe pneumonia Progress note dated October 03, 2023. The patient is seen today in room 362. He continues on a nonrebreather mask. Previously, he was on 15 L high flow oxygen. Because of saturations in the high 80s, the nurse switched him to a nonrebreather mask. Currently his saturations are in the low 90s. The patient continues on Decadron, and cefepime. He is getting saline at 50 cc an hour. His procalcitonin level is 0.43. Laboratory data includes a white count 11.3, hemoglobin 13, hematocrit 39.6, and a platelet count of 196,000. Sodium 132, potassium 3.3, chloride 97, CO2 30, BUN 15, creatinine 0.51. The patient's albumin is 2.8. AST is 101, and ALT is 53. Chest x-ray shows some basilar atelectasis or infiltrate, with an elevated right diaphragm, and possible effusion. Progress note dated October 04, 2023. 77-year-old male, seen today in room 362. The patient was initially on a nonrebreather, but saturations were only in the mid 80s. The patient was converted to Airvo, with settings of 60 L/min, with an FiO2 of 95%. His saturations then increased to 88 to 90%. The patient is not receiving any IV fluids. No new labs today. Labs from October 03 have been reviewed. Microbiologic sampling, is negative or pending. Chest x-ray reveals borderline cardiomegaly, with ongoing asymmetric elevation of the right hemidiaphragm. There is increasing patchy bibasilar atelectasis/infiltrate. Progress note dated October 05, 2023. 77-year-old male seen today in room 362. Currently, the patient is on Airvo, with settings of 60 L/min and an FiO2 of 90%. The patient is also wearing a nonrebreather mask, over the Airvo nasal cannula. The patient continues on Decadron and cefepime. We have asked for chest x-ray tomorrow. Clinically, the patient looks reasonably stable, and does not appear to be short of breath. I have asked the nurse, to call respiratory, to adjust his Airvo nasal cannula, and a nonrebreather mask. No new labs today. Progress note dated October 06, 2023. 77-year-old male, seen today in room 256. The patient's respiratory status declined through the night, and the patient was transferred down to the intensive care unit. The patient had blood gases, showing a pO2 of 126, pCO2 of 21, and a pH of 7.70. This blood gas is consistent with a mixed respiratory and metabolic alkalosis. The patient did test positive initially for coronavirus. He is currently on Airvo, with settings of 60 L/min and an FiO2 of 90%. In addition, he is getting a nonrebreather mask. The patient is not receiving any IV fluids. Saturations are in the low to mid 90s. The patient continues on cefepime. Labs include a white count 15, hemoglobin 13.4, hematocrit 39.6, and a platelet count of 181,000. Sodium 133, potassium 3.2, chlorides 96, CO2 29, BUN 28, creatinine 0.81. Glucose is 110. Calcium is 8.4. Chest x-ray shows some patchy mid and lower lung opacities, either the same from the previous x- ray, or mildly improved. There is also elevation of the right diaphragm. Progress note dated October 07, 2023. 77-year-old male seen today in room 256. The patient is currently on Airvo, at 60 L/min with an FiO2 of 90%. Saturations are between 92 and 93%. Occasionall y, he has a nonrebreather mask, over the Airvo nasal cannula. He is not receiving any IV fluids. He had an uneventful night according to the nurses. His white count is 15.7, hemoglobin 12.4, hematocrit 37.9, and platelet count is normal. Sodium 134, potassium 3.8, chlorides 98, CO2 29, BUN 32, creatinine 0.8. Glucose 141. Calcium 8.4. Chest x-ray is unchanged and shows similar patchy infiltrates, in the mid and lower lung zones, with the right diaphragm elevation. Progress note dated October 08, 2023. 77-year-old male seen today in room 256. The patient is currently on Airvo, at 60 L/min, with an FiO2 of 80%. Yesterday, he was on 90%. He is not receiving any IV fluids. We can discontinue isolation. In addition, he has been on cefepime for some time, so that we will be discontinued as well. Current labs include a white count of 14.3, hemoglobin 11.8, hematocrit 36.6, and a normal platelet count of 153,000. Sodium 131, potassium 4, chloride 96, CO2 31, BUN 37, creatinine 0.71. Glucose is 137. Calcium 8.5. Magnesium 2.0. Yesterday's chest x-ray was unchanged. Progress note dated October 09, 2023. 77-year-old male, again seen in room 256. The patient was admitted with a diagnosis of coronavirus infection, and probable coronavirus associated pneumonia. The patient is currently on Airvo, with settings of 60 L/min and an FiO2 of 85%. The patient is not receiving any IV fluids. His chest x-ray today, looks a bit better. Clinically, he is about the same. Current labs include a white count of 17.1, hemoglobin 12.7, hematocrit 37.7, and a normal platelet count. Sodium 130, potassium 4.2, chlorides 92, CO2 31, BUN 37, creatinine 0.8. The patient's glucose was 118. Calcium 8.7. Patient was reevaluated today on 10/21/2023, remains in the ICU, CODE STATUS has been changed to full code, patient is now on assist-control rate of 26 tidal volume 500 FiO2 50% PEEP was done and I cut it down to 8 ABG showed a pO2 of 98 pCO2 37 pH of 7.42. Patient is still sedated with propofol at 10 mcg/kg/min, fentanyl at 1 mcg/kg/h. IV fluid 0.9 normal saline at KVO, patient is receiving vital HP at 30 cc/h. Remains on Merrem and he remains on Lasix 40 mg IV push every 8 hours. Not much of a change noted in the last 24 hours, chest x-ray remains the same showing mostly right lower lobe atelectasis and right upper lobe infiltrate. Patient will be given today a mental status assessment, and a sedation holiday, he is not quite ready for weaning, but at least we will try to assess mental status if possible off sedation today WBC count is 14.4 hemoglobin is 8.2. Basic metabolic profile is normal BUN is 71 creatinine 2.60 Patient was reevaluated today on 10/22/2023, remains in the ICU, intubated and mechanically ventilated. Patient has been completely off sedation, and continues to have no responses, patient is not waking up, and he is not responding to deep painful stimuli. Neurology is on board. Apparently his EEG reflected severe toxic metabolic encephalopathy. Patient is on assist-control rate of 26 tidal volume 500 FiO2 50% PEEP of 8 ABG showed a pO2 of 83 pCO2 33 pH of 7.52. Remains on Lasix 40 mg IV push every 8 hours remains on Merrem his endotracheal tube seems to be a bit low hence will be pulling the tube about 2 cm. No changes were made in his vent settings, patient remains on vital HP at 50 cc/h. Obviously the patient does not ready for any form of weaning especially with his neurological status as bad as it is. Will continue the same management, and hopefully family carmen will decide on comfort care measures as the prognosis seems to be extremely poor and guarded if not, patient may have to be considered for trach and PEG next week . WBC count is 15.7 hemoglobin 8.2 electrolytes were reviewed potassium is 3.1 BUN is 78 creatinine 2.28, slightly improved compared to yesterday. Patient evaluated today on 10/23/2023, remains in the ICU, intubated, mechanically ventilated, has been off sedation for the last few days, patient is not showing any signs of neurological recovery. Remains unresponsive to painful stimuli, patient opens eyes at times, but no responses and no purposeful movement. Remains on vital HP at 63 mL/h remains on IV fluids at KVO, patient is intubated on assist-control rate of 26 tidal volume 500 FiO2 50% and PEEP of 8 ABG showed a pO2 of 82 pCO2 of 35 pH of 7.53. No major improvement noted in the last week, and I believe the patient should be seriously considered for comfort care measures. At 1 point the patient was made DNR CODE STATUS, but after the Impella device was removed, family changed the CODE STATUS to full code. I believe the patient has severe anoxic brain injury and severe anoxic encephalopathy, does not seem to be recovering and again I am strongly recommending comfort care measures on this patient. His labs showed WBC count of 18.2 hemoglobin is 8.3 platelets are 204, basic metabolic profile is normal BUN is 91 creatinine 2.19, blood cultures and sputum cultures have been negative Progress note dated October 24, 2023. This is a 77-year-old male who was initially admitted back on September 28. The patient was initially admitted for a number of his issues including generalized weakness, and hyponatremia. The patient was also tested for coronavirus, and tested positive. The patient was intubated for respiratory failure on October 13. He remains on mechanical ventilator. Ventilator settings include volume assist- control, rate 26, tidal volume 500, FiO2 50%, PEEP of 8. Blood gases show pO2 107, pCO2 35, pH is 7.51. The patient is getting no IV fluids. He is not receiving any sedation. The patient is getting vital high-protein at 63 cc an hour which is goal. Today we attempted a spontaneous breathing trial with pressure support of 8 and CPAP of 5. The patient did poorly, and he was placed back on mechanical ventilation. Laboratory data includes a white count of 17.2, hemoglobin 7.5, hematocrit 23.5, and a normal platelet count. Sodium 145, potassium 3.6, chlorides 109, CO2 25, anion gap 11, BUN 102, creatinine 2.29. Glucose 192. Calcium 7.2. Chest x-ray shows volume loss and patchy opacities throughout the right lung. Left lung aeration is improved. Progress note dated October 25, 2023. 77-year-old male initially admitted back on September 28. The patient was initially admitted there for a number of issues including generalized weakness and hyponatremia. He did test positive for coronavirus. The patient was intubated for respiratory failure on October 13, and remains on mechanical ventilator. Ventilator settings include volume assist-control, rate 26, tidal volume 500, FiO2 50%, and PEEP of 8. Blood gases show pO2 105, pCO2 36, and a pH of 7.5. The patient is receiving vital high-protein at 70 cc an hour, which is goal. He is not receiving any IV fluids. He continues on meropenem. The patient is a DO NOT RESUSCITATE patient, and apparently the family is considering comfort care. Laboratory data includes a white count 18.2, hemoglobin 7.1, hematocrit 22.6, and platelet count 199,000. Sodium 146, potassium 3.7, chlorides 110, CO2 27, BUN 128, and creatinine 2.42. Glucose is 150. Procalcitonin level is 0.65. C-reactive protein is 4.3. Blood and sputum sampling is negative. Chest x-ray shows elevation of the right hemidiaphragm, and patchy opacities throughout the right lung. Objective - Vital Signs Vital signs: Vital Signs Temp 98.3 F 10/25/23 08:00 Pulse 94 10/25/23 09:00 Resp 28 H 10/25/23 09:00 BP 94/59 10/25/23 09:00 Pulse Ox 98 10/25/23 09:00 FiO2 50 10/25/23 08:00 Intake & Output 10/24/23 10/25/23 10/25/23 18:59 06:59 18:59 Intake Total 1236 1000 410 Output Total 2230 1405 325 Balance -994 -405 85 Weight 122.47 kg 122.2 kg Intake: IV 100 100 Meropenem 1 gm In Sodium 100 Chloride 0.9% 100 ml @ 33 .3 mls/hr IVPB Q8HR [place] Rx#:[id number] Potassium Chloride 10 meq 100 In Water For Injection 1 100ml.bag @ 100 mls/hr IVPB Q1H [place] Rx#: [id number] Tube Feeding 1036 910 280 Other 100 90 30 Output: Urine 2230 1405 325 Other: Voiding Method Indwelling Catheter Indwelling Catheter Indwelling Catheter # Bowel Movements 1 0 1 ABP, PAP, CO, CI - Last Documented Arterial Blood Pressure 111/51 - Exam No acute distress, currently intubated, with a orally placed endotracheal tube. NG tube was noted. HEENT examination is grossly unremarkable. Neck supple. Full range of motion. No adenopathy thyromegaly or neck vein distention. Cardiovascular examination reveals regular rhythm rate. S1-S2 normal. No S3 or S4. No discernible murmur noted. Heart sounds are distant. Heart rate 94 bpm. Lungs reveal electively clear but diminished breath sounds throughout. Minimal rhonchi. No wheezes. No crackles. Saturations are 98 %. Abdomen soft bowel sounds are heard. No masses or tenderness. Extremities are intact. No cyanosis or clubbing. The patient does have diffuse edema and anasarca. Skin is without rash or lesion. Neurologic examination reveals the patient, who is unresponsive. - Labs CBC & Chem 7: 10/25/23 04:12 10/25/23 04:12 Labs: Abnormal Lab Results - Last 24 Hours (Table) 10/24/23 10/24/23 10/24/23 Range/Units 11:43 16:04 19:48 WBC (3.8-10.6) k/uL RBC (4.30-5.90) m/uL Hgb (13.0-17.5) gm/dL Hct (39.0-53.0) % RDW (11.5-15.5) % Neutrophils # (1.3-7.7) k/uL ABG pH (7.35-7.45) ABG HCO3 (21-25) mmol/L ABG Total CO2 (19-24) mmol/L ABG O2 Saturation (94-97) % Sodium (137-145) mmol/L Chloride (98-107) mmol/L BUN (9-20) mg/dL Creatinine (0.66-1.25) mg/dL Glucose (74-99) mg/dL POC Glucose (mg/dL) 181 H 199 H 179 H (70-110) mg/dL Calcium (8.4-10.2) mg/dL C-Reactive Protein (<1.0) mg/dL Procalcitonin (0.02-0.09) ng/mL 10/24/23 10/25/23 10/25/23 Range/Units 23:46 03:50 04:08 WBC (3.8-10.6) k/uL RBC (4.30-5.90) m/uL Hgb (13.0-17.5) gm/dL Hct (39.0-53.0) % RDW (11.5-15.5) % Neutrophils # (1.3-7.7) k/uL ABG pH 7.50 H (7.35-7.45) ABG HCO3 28 H (21-25) mmol/L ABG Total CO2 29 H (19-24) mmol/L ABG O2 Saturation 98.6 H (94-97) % Sodium (137-145) mmol/L Chloride (98-107) mmol/L BUN (9-20) mg/dL Creatinine (0.66-1.25) mg/dL Glucose (74-99) mg/dL POC Glucose (mg/dL) 175 H 198 H (70-110) mg/dL Calcium (8.4-10.2) mg/dL C-Reactive Protein (<1.0) mg/dL Procalcitonin (0.02-0.09) ng/mL 10/25/23 10/25/23 10/25/23 Range/Units 04:12 04:12 04:12 WBC 18.2 H (3.8-10.6) k/uL RBC 2.37 L (4.30-5.90) m/uL Hgb 7.1 L (13.0-17.5) gm/dL Hct 22.6 L (39.0-53.0) % RDW 16.7 H (11.5-15.5) % Neutrophils # 15.2 H (1.3-7.7) k/uL ABG pH (7.35-7.45) ABG HCO3 (21-25) mmol/L ABG Total CO2 (19-24) mmol/L ABG O2 Saturation (94-97) % Sodium 146 H (137-145) mmol/L Chloride 110 H (98-107) mmol/L BUN 128 H* (9-20) mg/dL Creatinine 2.42 H (0.66-1.25) mg/dL Glucose 150 H (74-99) mg/dL POC Glucose (mg/dL) (70-110) mg/dL Calcium 7.2 L (8.4-10.2) mg/dL C-Reactive Protein 4.3 H (<1.0) mg/dL Procalcitonin 0.65 H (0.02-0.09) ng/mL 10/25/23 Range/Units 08:47 WBC (3.8-10.6) k/uL RBC (4.30-5.90) m/uL Hgb (13.0-17.5) gm/dL Hct (39.0-53.0) % RDW (11.5-15.5) % Neutrophils # (1.3-7.7) k/uL ABG pH (7.35-7.45) ABG HCO3 (21-25) mmol/L ABG Total CO2 (19-24) mmol/L ABG O2 Saturation (94-97) % Sodium (137-145) mmol/L Chloride (98-107) mmol/L BUN (9-20) mg/dL Creatinine (0.66-1.25) mg/dL Glucose (74-99) mg/dL POC Glucose (mg/dL) 171 H (70-110) mg/dL Calcium (8.4-10.2) mg/dL C-Reactive Protein (<1.0) mg/dL Procalcitonin (0.02-0.09) ng/mL Assessment and Plan Assessment: Acute hypoxemic respiratory failure secondary to right lower lobe atelectasis/consolidation, and possible pneumonia. S/P intubation, and mechanical ventilation, on October 14, 2023, for respiratory f ailure. S/P cardiac arrest with ventricular tachycardia and ventricular fibrillation, s/p cardiac catheterization, for acute lateral ST segment elevation myocardial infarction. S/P Impella placement, and subsequent removal. Severe left ventricular dysfunction with an ejection fraction of 20%. Generalized weakness, likely secondary to coronavirus infection, and hyponatremia. Acute mental status changes, likely secondary to metabolic and anoxic encephalopathy. Acute coronavirus infection, without evidence of coronavirus associated pneumonia. Right diaphragm elevation, and possible paresis/paralysis. Hyponatremia. Acute kidney injury. Rhabdomyolysis. History of seizure disorder. History of hypothyroidism. History of hypertension. Previous history of tobacco use. Plan: Plan dated October 03, 2023. The patient is seen today in room 362. The nurse recently changed him from 15 L high flow nasal prongs, to a nonrebreather mask. His saturations are in the low 90s. The patient continues on Decadron, and cefepime. He is also receiving saline at 50 cc an hour. His procalcitonin level was 0.43. Labs, x-rays, and medications are reviewed. We will continue to follow the patient, make recommendations along the way. Prognosis is certainly guarded. Plan dated October 04, 2023. The patient is seen today in room 362. The patient was on a nonrebreather mask, but because of low saturations, respiratory change the patient to Airvo, with settings of 60 L/min, and an FiO2 of 95%. The patient continues on Decadron, cefepime, zinc, vitamin D3, and vitamin C. Additional recommendations and suggestions are forthcoming. The patient's overall prognosis remains guarded. Chest x-ray has been reviewed. Labs, x-rays, and medications are reviewed. Overall prognosis remains guarded. CODE STATUS should be addressed. No additional recommendations at this time. Plan dated October 05, 2023. The patient is currently on Airvo, and a nonrebreather mask. Saturations are in the high 80s, low 90s. A chest x-ray will be obtained tomorrow. I have asked the nurse to call respiratory, to adjust his Airvo nasal cannula, and nonrebreather mask, to maximize his oxygen. Labs, x-rays, medications are reviewed. The patient continues on Decadron, and cefepime. Labs, x-rays, and medications are reviewed. The prognosis is guarded. We will continue to follow the patient, make recommendations along the way. CODE STATUS should be addressed on this patient. Plan dated October 06, 2023. The patient's respiratory status declined overnight, and he was transferred down to the intensive care unit. I was notified, by the nighttime nurse, about the rapid response team, and, I told them, to transfer the patient to the ICU, should the situation declined further. He is currently on Airvo device, at 60 L/min, with an FiO2 of 90%. In addition, he is on a nonrebreather mask. He continues on appropriate medications, including cefepime, Decadron, and, I will add some inhalers. Additional recommendations and suggestions are forthcoming. Prognosis is guarded. We will continue to follow the patient, and make recommendations. I attempted to have a conversation with the patient today about CODE STATUS, but he really could not make a decision. Plan dated October 07, 2023. The patient is currently on Airvo, 60 L/min, with an FiO2 of 90%. The nurses state, that the patient will use his nonrebreather, from time to time as well. Currently, his saturations are in the low 90s. He is not receiving any IV fluids. His chest x-ray is unchanged. Labs, x-rays, and medications are reviewed. CODE STATUS should be addressed by the primary service. Currently, he is on albuterol inhaler, Symbicort, cefepime, and Decadron. Additional recommendations and suggestions are forthcoming. Prognosis is very guarded. Plan dated October 08, 2023. The patient remains critically ill in the intensive care unit. He is seen today in room 256. The patient's currently on Airvo, at 60 L/min, with an FiO2 of 80%. The patient is not receiving any IV fluids. We can discontinue the isolation. Will also discontinue the cefepime. Labs, x-rays, and medications are reviewed. He continues on albuterol, Symbicort, and Decadron. Additional recommendations and suggestions are forthcoming. Prognosis is guarded. We did ask for chest x-ray tomorrow. Plan dated October 09, 2023. The patient's overall respiratory status remains critical. He is very tenuous, and sometimes, his saturations dropped into the mid 80s. He continues on Airvo. Labs, x-rays, medications are reviewed. In my opinion, his chest x-ray may be a bit better. Radiologist thought the x-ray was about the same. We will continue with his current medications. We did just discontinue his cefepime. Labs, x-rays, and medications are all reviewed. He continues on albuterol, Symb icort, Decadron. Prognosis is certainly guarded. Plan dated October 24, 2023. The patient has been off of sedation for a number of days now. He has been unresponsive. The patient had a spontaneous breathing trial today, and failed it. His respiratory rate went immediately up to 50 breaths/min. His spontaneous tidal volumes were only about 250 to 275 cc. His minute ventilation was in excess of 15 L/min. The patient was placed back on the mechanical ventilator. He continues on meropenem. The patient's overall prognosis is very poor. I did speak to the daughter today, [id number], and suggested, the possibility of tracheostomy and PEG tube placement, if they wanted to continue with her cur rent level of support. She was going to talk to the family and get back to us. Labs, x-rays, medications are reviewed. The patient remains a full code. The patient's overall prognosis is extremely poor. Plan dated October 25, 2023. The patient's overall prognosis is very poor, and the family has decided to make the patient a DO NOT RESUSCITATE patient. In addition, they will be coming into the hospital shortly, to transition the patient to comfort care. Currently, the patient is receiving vital high-protein at 70 cc an hour. Blood gases are stable. The patient remains on the mechanical ventilator. The patient is not receiving any IV fluids, or sedatives. The patient continues on meropenem. Labs, x-rays, and medications are reviewed. The patient's overall prognosis remains guarded. We will continue to follow the patient, make recommendations along the way. Time with Patient: Greater than 30
--- NOTE | 2023-10-25 11:21 | P.PN ---
Subjective Progress Note Date: 10/25/23 CHIEF COMPLAINT: Anemia HISTORY OF PRESENT ILLNESS: Patient remains in the ICU intubated and on mechanical ventilation. Patient has had cardiac arrest, 5 cardiac stents placed. Patient does remain on Brilinta and aspirin. Surgical service following for GI bleed. Patient had 4 maroon-colored stools since last night. Hemoglobin is down from 7.5 to 7.1. Elevated BUN. WBC is up from 17-18. PHYSICAL EXAM: VITAL SIGNS: Reviewed. GENERAL: no acute distress. ABDOMEN: Soft. Nondistended. Nontender. NEUROLOGIC: Intubated ASSESSMENT: 1. Acute GI bleed 2. Acute blood loss anemia 3. Cardiac arrest status post heart catheterization with 5 stents PLAN: -Family meeting scheduled for today. Awaiting their decision regarding possible comfort care -Recommend EGD when medically stable -Continue ICU management -Continue to monitor for signs and symptoms of bleeding -Continue to monitor hemoglobin -Continue Protonix Physician Rhinologist note has been reviewed by physician. Signing provider agrees with the documented findings, assessment, and plan of care. Objective - Vital Signs Vital signs: Vital Signs Temp 98.3 F 10/25/23 08:00 Pulse 94 10/25/23 09:00 Resp 28 H 10/25/23 09:00 BP 94/59 10/25/23 09:00 Pulse Ox 98 10/25/23 09:00 FiO2 50 10/25/23 08:00 Intake & Output 10/24/23 10/25/23 10/25/23 18:59 06:59 18:59 Intake Total 1236 1000 410 Output Total 2230 1405 325 Balance -994 -405 85 Weight 122.47 kg 122.2 kg Intake: IV 100 100 Meropenem 1 gm In Sodium 100 Chloride 0.9% 100 ml @ 33 .3 mls/hr IVPB Q8HR [place] Rx#:[id number] Potassium Chloride 10 meq 100 In Water For Injection 1 100ml.bag @ 100 mls/hr IVPB Q1H [place] Rx#: [id number] Tube Feeding 1036 910 280 Other 100 90 30 Output: Urine 2230 1405 325 Other: Voiding Method Indwelling Catheter Indwelling Catheter Indwelling Catheter # Bowel Movements 1 0 1 ABP, PAP, CO, CI - Last Documented Arterial Blood Pressure 111/51 - Labs CBC & Chem 7: 10/25/23 04:12 10/25/23 04:12 Labs: Abnormal Lab Results - Last 24 Hours (Table) 10/24/23 10/24/23 10/24/23 Range/Units 11:43 16:04 19:48 WBC (3.8-10.6) k/uL RBC (4.30-5.90) m/uL Hgb (13.0-17.5) gm/dL Hct (39.0-53.0) % RDW (11.5-15.5) % Neutrophils # (1.3-7.7) k/uL ABG pH (7.35-7.45) ABG HCO3 (21-25) mmol/L ABG Total CO2 (19-24) mmol/L ABG O2 Saturation (94-97) % Sodium (137-145) mmol/L Chloride (98-107) mmol/L BUN (9-20) mg/dL Creatinine (0.66-1.25) mg/dL Glucose (74-99) mg/dL POC Glucose (mg/dL) 181 H 199 H 179 H (70-110) mg/dL Calcium (8.4-10.2) mg/dL C-Reactive Protein (<1.0) mg/dL Procalcitonin (0.02-0.09) ng/mL 10/24/23 10/25/23 10/25/23 Range/Units 23:46 03:50 04:08 WBC (3.8-10.6) k/uL RBC (4.30-5.90) m/uL Hgb (13.0-17.5) gm/dL Hct (39.0-53.0) % RDW (11.5-15.5) % Neutrophils # (1.3-7.7) k/uL ABG pH 7.50 H (7.35-7.45) ABG HCO3 28 H (21-25) mmol/L ABG Total CO2 29 H (19-24) mmol/L ABG O2 Saturation 98.6 H (94-97) % Sodium (137-145) mmol/L Chloride (98-107) mmol/L BUN (9-20) mg/dL Creatinine (0.66-1.25) mg/dL Glucose (74-99) mg/dL POC Glucose (mg/dL) 175 H 198 H (70-110) mg/dL Calcium (8.4-10.2) mg/dL C-Reactive Protein (<1.0) mg/dL Procalcitonin (0.02-0.09) ng/mL 10/25/23 10/25/23 10/25/23 Range/Units 04:12 04:12 04:12 WBC 18.2 H (3.8-10.6) k/uL RBC 2.37 L (4.30-5.90) m/uL Hgb 7.1 L (13.0-17.5) gm/dL Hct 22.6 L (39.0-53.0) % RDW 16.7 H (11.5-15.5) % Neutrophils # 15.2 H (1.3-7.7) k/uL ABG pH (7.35-7.45) ABG HCO3 (21-25) mmol/L ABG Total CO2 (19-24) mmol/L ABG O2 Saturation (94-97) % Sodium 146 H (137-145) mmol/L Chloride 110 H (98-107) mmol/L BUN 128 H* (9-20) mg/dL Creatinine 2.42 H (0.66-1.25) mg/dL Glucose 150 H (74-99) mg/dL POC Glucose (mg/dL) (70-110) mg/dL Calcium 7.2 L (8.4-10.2) mg/dL C-Reactive Protein 4.3 H (<1.0) mg/dL Procalcitonin 0.65 H (0.02-0.09) ng/mL 10/25/23 Range/Units 08:47 WBC (3.8-10.6) k/uL RBC (4.30-5.90) m/uL Hgb (13.0-17.5) gm/dL Hct (39.0-53.0) % RDW (11.5-15.5) % Neutrophils # (1.3-7.7) k/uL ABG pH (7.35-7.45) ABG HCO3 (21-25) mmol/L ABG Total CO2 (19-24) mmol/L ABG O2 Saturation (94-97) % Sodium (137-145) mmol/L Chloride (98-107) mmol/L BUN (9-20) mg/dL Creatinine (0.66-1.25) mg/dL Glucose (74-99) mg/dL POC Glucose (mg/dL) 171 H (70-110) mg/dL Calcium (8.4-10.2) mg/dL C-Reactive Protein (<1.0) mg/dL Procalcitonin (0.02-0.09) ng/mL
--- NOTE | 2023-10-25 11:33 | P.PN ---
Subjective Patient is seen in follow-up for acute kidney injury. Renal function slightly worse. On IV Lasix. Nonoliguric. Off Levophed. Intubated. Off sedation. Minimally responsive. Hemoglobin 7.1 today. Having bloody bowel movement. Vital signs are stable. General: Resting in bed. HEENT: Intubated. LUNGS: Scattered rhonchi. HEART: Rate and Rhythm are regular. ABDOMEN: Nontender. EXTREMITITES: 2+ edema. Objective - Vital Signs Vital signs: Vital Signs Temp 98.3 F 10/25/23 08:00 Pulse 94 10/25/23 09:00 Resp 28 H 10/25/23 09:00 BP 94/59 10/25/23 09:00 Pulse Ox 98 10/25/23 09:00 FiO2 50 10/25/23 08:00 Intake & Output 10/24/23 10/25/23 10/25/23 18:59 06:59 18:59 Intake Total 1236 1000 410 Output Total 2230 1405 325 Balance -994 -405 85 Weight 122.47 kg 122.2 kg Intake: IV 100 100 Meropenem 1 gm In Sodium 100 Chloride 0.9% 100 ml @ 33 .3 mls/hr IVPB Q8HR [place] Rx#:[id number] Potassium Chloride 10 meq 100 In Water For Injection 1 100ml.bag @ 100 mls/hr IVPB Q1H [place] Rx#: [id number] Tube Feeding 1036 910 280 Other 100 90 30 Output: Urine 2230 1405 325 Other: Voiding Method Indwelling Catheter Indwelling Catheter Indwelling Catheter # Bowel Movements 1 0 1 ABP, PAP, CO, CI - Last Documented Arterial Blood Pressure 111/51 - Labs CBC & Chem 7: 10/25/23 04:12 10/25/23 04:12 Labs: Abnormal Lab Results - Last 24 Hours (Table) 10/24/23 10/24/23 10/24/23 Range/Units 11:43 16:04 19:48 WBC (3.8-10.6) k/uL RBC (4.30-5.90) m/uL Hgb (13.0-17.5) gm/dL Hct (39.0-53.0) % RDW (11.5-15.5) % Neutrophils # (1.3-7.7) k/uL ABG pH (7.35-7.45) ABG HCO3 (21-25) mmol/L ABG Total CO2 (19-24) mmol/L ABG O2 Saturation (94-97) % Sodium (137-145) mmol/L Chloride (98-107) mmol/L BUN (9-20) mg/dL Creatinine (0.66-1.25) mg/dL Glucose (74-99) mg/dL POC Glucose (mg/dL) 181 H 199 H 179 H (70-110) mg/dL Calcium (8.4-10.2) mg/dL C-Reactive Protein (<1.0) mg/dL Procalcitonin (0.02-0.09) ng/mL 10/24/23 10/25/23 10/25/23 Range/Units 23:46 03:50 04:08 WBC (3.8-10.6) k/uL RBC (4.30-5.90) m/uL Hgb (13.0-17.5) gm/dL Hct (39.0-53.0) % RDW (11.5-15.5) % Neutrophils # (1.3-7.7) k/uL ABG pH 7.50 H (7.35-7.45) ABG HCO3 28 H (21-25) mmol/L ABG Total CO2 29 H (19-24) mmol/L ABG O2 Saturation 98.6 H (94-97) % Sodium (137-145) mmol/L Chloride (98-107) mmol/L BUN (9-20) mg/dL Creatinine (0.66-1.25) mg/dL Glucose (74-99) mg/dL POC Glucose (mg/dL) 175 H 198 H (70-110) mg/dL Calcium (8.4-10.2) mg/dL C-Reactive Protein (<1.0) mg/dL Procalcitonin (0.02-0.09) ng/mL 10/25/23 10/25/23 10/25/23 Range/Units 04:12 04:12 04:12 WBC 18.2 H (3.8-10.6) k/uL RBC 2.37 L (4.30-5.90) m/uL Hgb 7.1 L (13.0-17.5) gm/dL Hct 22.6 L (39.0-53.0) % RDW 16.7 H (11.5-15.5) % Neutrophils # 15.2 H (1.3-7.7) k/uL ABG pH (7.35-7.45) ABG HCO3 (21-25) mmol/L ABG Total CO2 (19-24) mmol/L ABG O2 Saturation (94-97) % Sodium 146 H (137-145) mmol/L Chloride 110 H (98-107) mmol/L BUN 128 H* (9-20) mg/dL Creatinine 2.42 H (0.66-1.25) mg/dL Glucose 150 H (74-99) mg/dL POC Glucose (mg/dL) (70-110) mg/dL Calcium 7.2 L (8.4-10.2) mg/dL C-Reactive Protein 4.3 H (<1.0) mg/dL Procalcitonin 0.65 H (0.02-0.09) ng/mL 10/25/23 Range/Units 08:47 WBC (3.8-10.6) k/uL RBC (4.30-5.90) m/uL Hgb (13.0-17.5) gm/dL Hct (39.0-53.0) % RDW (11.5-15.5) % Neutrophils # (1.3-7.7) k/uL ABG pH (7.35-7.45) ABG HCO3 (21-25) mmol/L ABG Total CO2 (19-24) mmol/L ABG O2 Saturation (94-97) % Sodium (137-145) mmol/L Chloride (98-107) mmol/L BUN (9-20) mg/dL Creatinine (0.66-1.25) mg/dL Glucose (74-99) mg/dL POC Glucose (mg/dL) 171 H (70-110) mg/dL Calcium (8.4-10.2) mg/dL C-Reactive Protein (<1.0) mg/dL Procalcitonin (0.02-0.09) ng/mL Assessment and Plan Plan: Assessment: 1. Hyponatremia. Due to urinary retention and hypervolemia. Improved. TSH normal. Urine osmolality 543. Urine sodium less than 20. Now slightly hyponatremic from free water diuresis. 2. Acute kidney injury initially secondary to urinary retention. Now ATN due to cardiac arrest. Creatinine peaked at 2.6 this admission and is 2.42 today. Elevated BUN due to acute kidney injury and GI bleed. No proteinuria on UA. No hydronephrosis noted on kidney ultrasound. 3. Urinary retention status post Rosales catheter placement. On Flomax. Urology following. 4. Benign hypertension. Controlled. Off Levophed. 5. Hypokalemia from diuresis. Replaced. Better. 6. Rhabdomyolysis secondary to fall. CK level improved. 7. Acute blood loss anemia status post blood transfusion this admission. Hemoglobin stable at 8.2. 8. Volume overload. 9. Acute ST elevated myocardial infarction status post cardiac stenting October 14, 2023. 10. Acute systolic CHF with ejection fraction of 20 to 25% noted on echocardiogram done October 18, 2023. 11. Anoxic brain injury. Plan: Maintain IV Lasix for now. Family has decided to proceed with comfort measures later today.
[2023-10-25] MEDS ORDERED: MORPHINE SULFATE 2 MG/ML SYRINGE IV PRN (11:58)
[2023-10-25] MEDS ORDERED: ARTIFICIAL TEARS-HYPROMELLOSE DROPS 15 ML BTL BOTH EYES PRN (11:58)
[2023-10-25] MEDS ORDERED: DRY MOUTH SPRAY 44.3 SPRAY/44.3 ML SPRAY MUCOUS MEM PRN (11:58)
[2023-10-25] MEDS ORDERED: MORPHINE SULFATE 4 MG/ML SYRINGE IV PRN (11:58)
[2023-10-25 12:22] VITALS: BP 107/61; TEMP 98.1
[2023-10-25] MEDS: ATROPINE OPHTH SOLN 1% 5ML BTL SUBLINGUAL PRN (12:25)
[2023-10-25] MEDS: SCOPOLAMINE 1 MG/72 HR PATCH TRANSDERM SCH (12:25)
[2023-10-25] MEDS: MORPHINE SULFATE (100 MG/2 ML) 100 MG in SODIUM CHLORIDE 0.9% 100 ML IV SCH (12:28)
--- NOTE | 2023-10-25 13:32 | P.PN ---
Subjective Progress Note Date: 10/25/23 I am following-up with patient and no improvement in his condition. The family had made him DN&R. It seems the family will be here later today and will notify us about the decision. Objective - Vital Signs Vital signs: Vital Signs Temp 98.1 F 10/25/23 12:00 Pulse 90 10/25/23 12:36 Resp 32 H 10/25/23 12:36 BP 107/61 10/25/23 12:00 Pulse Ox 97 10/25/23 12:00 FiO2 50 10/25/23 12:00 Intake & Output 10/24/23 10/25/23 10/25/23 18:59 06:59 18:59 Intake Total 1236 1000 410 Output Total 2230 1405 1275 Balance -994 -405 -865 Weight 122.47 kg 122.2 kg Intake: IV 100 100 Meropenem 1 gm In Sodium 100 Chloride 0.9% 100 ml @ 33 .3 mls/hr IVPB Q8HR [place] Rx#:[id number] Potassium Chloride 10 meq 100 In Water For Injection 1 100ml.bag @ 100 mls/hr IVPB Q1H [place] Rx#: [id number] Tube Feeding 1036 910 280 Other 100 90 30 Output: Urine 2230 1405 1175 Stool 100 Other: Voiding Method Indwelling Catheter Indwelling Catheter Indwelling Catheter # Bowel Movements 1 0 1 ABP, PAP, CO, CI - Last Documented Arterial Blood Pressure 111/51 - Exam General is lying in bed and is not in acute distress Lung: He is intubated on a ventilator Neuro- The patient is comatose. GCS 3 (E1, VT1, M1). I had to manually open his eyes and primary gaze is midline. Pupils are 4mm and reactive to light bilaterally. No obvious facial weakness. +ve joe and cough reflex. Motor: Hard to assess individual muscle strength. Not withdrawing to painful stimuli. - Labs CBC & Chem 7: 10/25/23 04:12 10/25/23 04:12 Labs: Abnormal Lab Results - Last 24 Hours (Table) 10/24/23 10/24/23 10/24/23 Range/Units 16:04 19:48 23:46 WBC (3.8-10.6) k/uL RBC (4.30-5.90) m/uL Hgb (13.0-17.5) gm/dL Hct (39.0-53.0) % RDW (11.5-15.5) % Neutrophils # (1.3-7.7) k/uL ABG pH (7.35-7.45) ABG HCO3 (21-25) mmol/L ABG Total CO2 (19-24) mmol/L ABG O2 Saturation (94-97) % Sodium (137-145) mmol/L Chloride (98-107) mmol/L BUN (9-20) mg/dL Creatinine (0.66-1.25) mg/dL Glucose (74-99) mg/dL POC Glucose (mg/dL) 199 H 179 H 175 H (70-110) mg/dL Calcium (8.4-10.2) mg/dL C-Reactive Protein (<1.0) mg/dL Procalcitonin (0.02-0.09) ng/mL 10/25/23 10/25/23 10/25/23 Range/Units 03:50 04:08 04:12 WBC 18.2 H (3.8-10.6) k/uL RBC 2.37 L (4.30-5.90) m/uL Hgb 7.1 L (13.0-17.5) gm/dL Hct 22.6 L (39.0-53.0) % RDW 16.7 H (11.5-15.5) % Neutrophils # 15.2 H (1.3-7.7) k/uL ABG pH 7.50 H (7.35-7.45) ABG HCO3 28 H (21-25) mmol/L ABG Total CO2 29 H (19-24) mmol/L ABG O2 Saturation 98.6 H (94-97) % Sodium (137-145) mmol/L Chloride (98-107) mmol/L BUN (9-20) mg/dL Creatinine (0.66-1.25) mg/dL Glucose (74-99) mg/dL POC Glucose (mg/dL) 198 H (70-110) mg/dL Calcium (8.4-10.2) mg/dL C-Reactive Protein (<1.0) mg/dL Procalcitonin (0.02-0.09) ng/mL 10/25/23 10/25/23 10/25/23 Range/Units 04:12 04:12 08:47 WBC (3.8-10.6) k/uL RBC (4.30-5.90) m/uL Hgb (13.0-17.5) gm/dL Hct (39.0-53.0) % RDW (11.5-15.5) % Neutrophils # (1.3-7.7) k/uL ABG pH (7.35-7.45) ABG HCO3 (21-25) mmol/L ABG Total CO2 (19-24) mmol/L ABG O2 Saturation (94-97) % Sodium 146 H (137-145) mmol/L Chloride 110 H (98-107) mmol/L BUN 128 H* (9-20) mg/dL Creatinine 2.42 H (0.66-1.25) mg/dL Glucose 150 H (74-99) mg/dL POC Glucose (mg/dL) 171 H (70-110) mg/dL Calcium 7.2 L (8.4-10.2) mg/dL C-Reactive Protein 4.3 H (<1.0) mg/dL Procalcitonin 0.65 H (0.02-0.09) ng/mL Assessment and Plan Assessment: Status post cardiac arrest x 2, on 10/14/2023 with ventricular tachycardia and ventricular fibrillation. Downtime reported about 7-9 minutes the first time, and about 10 to 15 minutes during cardiac catheterization. Probable severe anoxic encephalopathy. The patient is now 10 days status postcardiac arrest. He continues to be unresponsive. Brainstem reflexes continue to be intact. There is no evidence of cortical activity. Overall metabolic status continues to decline * Acute hypoxic respiratory failure secondary to cardiac arrest, on mechanical ventilation * Longstanding history of seizure disorder/epilepsy. * Status post cardiac catheterization for acute lateral ST segment elevation myocardial infarction and the patient underwent emergent cardiac catheterization. The patient underwent a complicated coronary intervention requiring Impella for hemodynamic support, stenting of the left main, circu mflex, proximal and mid RCA. A total of 5 stents were inserted. * Upper GI bleeding related to various antiplatelet agents and anticoagulation patient is now off heparin he is on aspirin and Plavix * Acute blood loss anemia requiring transfusion * Acute kidney injury, could be cardiorenal in nature, getting worse. * CHF, with EF 20% * Pneumonia * Acute hypoxic metabolic encephalopathy * History of COVID-19 pneumonia, recovering * History of seizure disorder * Hypothyroidism * Hypertension * Ex-smoke Plan: * Repeat CT head performed 10/20/2023 showed no acute intracranial process. Nonspecific mild paranasal sinus disease. Agree with the findings. * Repeat EEG performed today revealed continued moderate to severe background s lowing consistent with encephalopathy. Sporadic sharply contoured waves were seen, better as compared to the EEG from yesterday. No electrographic seizure recorded. No electrographic evidence of status. * Initial EEG performed today. It was abnormal due to background slowing of moderate to severe degree, suggestive of encephalopathy. Presence of sporadic intermittent generalized sharp appearing waves, which occasionally becomes more rhythmic at about 1 Hz, suggestive of underlying cortical irritability and tendency for seizure. No electrographic seizure was recorded. Clinical correlation and a follow-up EEG recommended. * Patient currently on Depakote. Depakote level <10.0, ammonia 17 which is normal. * On Keppra to 750 mg twice daily. * Other medical management as per IM, critical care and other specialties on board. * He continues to be unresponsive. Brainstem reflexes continue to be intact. There is no evidence of cortical activity. Overall metabolic status continues to decline Prognosis poor. The plan is discussed with patient's daughter who is at bedside yesterday and they made patient DN&R. The family will come today and will update us about their decision. The plan is discussed with primary team N.P. Time with Patient: Less than 30
[2023-10-25] MEDS: LORazepam 2 MG/ML INJ IV PRN (14:38)
[2023-10-25] MEDS: MORPHINE SULFATE 4 MG/ML SYRINGE IVP ONE (14:39)
[2023-10-25 14:46] VITALS: PULSE 101
[2023-10-25 15:22] VITALS: RESP 36
[2023-10-25] MEDS: GLYCOPYRROLATE 0.2 MG/ML 2 ML VIAL IVP PRN (16:04)
--- NOTE | 2023-10-25 19:32 | P.DS ---
Providers Date of admission: 09/28/23 01:41 Expected date of discharge: 10/25/23 Attending physician: Lo Albarran MD Consults: 09/30/23 11:38 Consult Physician Routine Consulting Provider: Benita Clayton Consult Reason/Comments: Covid Do you want consulting provider notified?: Yes 10/20/23 12:49 Consult Physician Stat Consulting Provider: Namrata Matos Consult Reason/Comments: neuro eval Do you want consulting provider notified?: Already Contacted Primary care physician: Stated None Hospital Course: Preliminary cause of Hypoxic respiratory failure secondary to COVID-19 Final diagnosis Shortness of breath with Acute hypoxic respiratory failure secondary to COVID- 19, requiring mechanical ventilation acute STEMI s/p Emergent cardiac cath and 5 stents placement Cardiogenic shock and possible septic shock secondary to above Anoxic brain injury Acute systolic congestive heart failure exacerbation with an EF of 20 to 25% from 10/18/2023 echo acute GI Bleed requring blood transfusion, anticoagulation remains on hold Acute kidney injury with kidney functioning that was worsening, acute tubular necrosis secondary to cardiac arrest Hyponatremia secondary to poor oral intake COVID-19 Altered mental status, with toxic metabolic encephalopathy likely secondary to hypoxia Generalized weakness Rhabdomyolysis. Improved Fall Urinary retention requiring indwelling Rosales catheter Hypothyroidism Hypertension Obesity with a BMI of 35.0 GI prophylaxis DVT prophylaxis No code Discharge disposition Patient has . According to nursing documentation, time of was 1615 on 10/25/2023. Family had decided to proceed with comfort care measures and withdrawal of care. Patient was extubated and placed on comfort care. Please refer to nursing documentation for exact timing. Total time taken is greater than 35 minutes Hospital course This is a 77-year-old male who was has had prolonged hospitalization and was admitted for weakness and falls along with shortness of breath with acute hypoxic respiratory failure and found to be COVID-19 positive. Patient was requiring high flow oxygen along with nonrebreather and transition to Airvo continuing to require increased amounts of oxygen. Patient was brought to the ICU for close monitoring with concerns of worsening respiratory status. Patient during hospitalization also had cardiac arrest with acute STEMI requiring emergent cardiac catheterization and 5 stents were placed. Patient noted to have an EF of 20 to 25% on most recent echo. Patient clinically continue to deteriorate including concerns with acute GI bleeding as well as anoxic brain injury. Patient had been weaned from sedation and has not been on any sedation for the last 48 hours and remains unresponsive. There was discussion of possibly placing a PEG and a trach although family later discussed after discussion with manager net and other consultations including neurology and changed CODE STATUS to no code and further requesting to withdraw care and continue with comfort measures to make their loved one comfortable. Patient was extubated after starting comfort care measures and at 1615 on 10/25/2023. Overall prognosis was extremely poor and guarded. Please refer to other consultation notes for further HPI. The impression and plan of care has been dictated by Margie Patricio, Nurse Practitioner as directed. Dr. Momo MD I have performed a history and examination and MDM of this patient, discussed the same with the dictator, and agree with the dictator's assessment and plan as written ,documented as a scribe. Based on total visit time, I have performed more than 50% of the visit. Patient Condition at Discharge: Poor Plan - Discharge Summary Discharge Rx Participant: No New Discharge Prescriptions: New Furosemide [Lasix] 40 mg PO BID #60 tablet hydrALAZINE HCL [Apresoline] 25 mg PO TID tab Tamsulosin [Flomax] 0.4 mg PO PC-BRKFST cap Albuterol Inhaler [Ventolin Hfa Inhaler] 2 puff INHALATION RT-QID each Continue Multivitamins, Thera [Multivitamin (formulary)] 1 tab PO DAILY Ergocalciferol [Vitamin D2 (1250 Mcg = 80092 Iu)] 1,250 mcg PO Q14D Levothyroxine Sodium [Synthroid] 100 mcg PO DAILY Amitriptyline HCl [Elavil] 75 mg PO HS amLODIPine [Norvasc] 10 mg PO DAILY Omeprazole 20 mg PO DAILY Metoprolol Tartrate [Lopressor] 100 mg PO DAILY Metoprolol Tartrate [Lopressor] 50 mg PO HS Divalproex Sodium [Depakote] 1,000 mg PO HS Baclofen [Lioresal] 10 mg PO HS Discharge Medication List Amitriptyline HCl [Elavil] 75 mg PO HS 09/28/23 [History] Baclofen [Lioresal] 10 mg PO HS 09/28/23 [History] Divalproex Sodium [Depakote] 1,000 mg PO HS 09/28/23 [History] Ergocalciferol [Vitamin D2 (1250 Mcg = 69154 Iu)] 1,250 mcg PO Q14D 09/28/23 [History] Levothyroxine Sodium [Synthroid] 100 mcg PO DAILY 09/28/23 [History] Metoprolol Tartrate [Lopressor] 50 mg PO HS 09/28/23 [History] Metoprolol Tartrate [Lopressor] 100 mg PO DAILY 09/28/23 [History] Multivitamins, Thera [Multivitamin (formulary)] 1 tab PO DAILY 09/28/23 [History] Omeprazole 20 mg PO DAILY 09/28/23 [History] amLODIPine [Norvasc] 10 mg PO DAILY 09/28/23 [History] Albuterol Inhaler [Ventolin Hfa Inhaler] 2 puff INHALATION RT-QID each 10/14/23 [Rx] Furosemide [Lasix] 40 mg PO BID #60 tablet 10/14/23 [Rx] Tamsulosin [Flomax] 0.4 mg PO PC-BRKFST cap 10/14/23 [Rx] hydrALAZINE HCL [Apresoline] 25 mg PO TID tab 10/14/23 [Rx] Follow up Appointment(s)/Referral(s): Benita Clayton MD [STAFF PHYSICIAN] - 1 Week None,Stated [Primary Care Provider] - 1-2 days Jeffry Upton DO [STAFF PHYSICIAN] - 10 Days Idris Gipson MD [STAFF PHYSICIAN] - 2 Weeks Discharge Disposition: TRANSFER TO SNF/ECF
--- NOTE | 2023-10-25 20:53 | P.PN ---
Subjective Progress Note Date: 10/25/23 Principal diagnosis: Reason for follow-up is COVID-19 and pneumonia Patient is a 77-year-old male with a past medical history significant for hypertension seizure disorder hypothyroidism patient has been brought into the hospital for evaluation of generalized weakness patient was noticed to be on the bathroom floor after apparently patient fell down, patient did tested positive for COVID-19, initial chest x-ray reported negative.Patient did have significant change in his clinical condition and did have a cardiac arrest on 10/14/2023 the patient was taken to the [facility] and did have PTCA and stenting x 5 subsequently patient has been admitted to ICU. On today's evaluation that is 10/25/2023, the patient continues to be afebrile, the patient is on ventilator FiO2 at 50% no significant purulent secretion through the ET or any other changes reported by the nursing staff mentation remains to be an issue, patient is having diarrhea. White count is 18.2 creatinine is 2.42 Objective - Vital Signs Vital signs: Vital Signs Temp 98.1 F 10/25/23 12:00 Pulse 95 10/25/23 12:00 Resp 33 H 10/25/23 12:00 BP 107/61 10/25/23 12:00 Pulse Ox 97 10/25/23 12:00 FiO2 50 10/25/23 12:00 Intake & Output 10/24/23 10/25/23 10/25/23 18:59 06:59 18:59 Intake Total 1236 1000 410 Output Total 2230 1405 1275 Balance -994 -405 -865 Weight 122.47 kg 122.2 kg Intake: IV 100 100 Meropenem 1 gm In Sodium 100 Chloride 0.9% 100 ml @ 33 .3 mls/hr IVPB Q8HR [place] Rx#:[id number] Potassium Chloride 10 meq 100 In Water For Injection 1 100ml.bag @ 100 mls/hr IVPB Q1H [place] Rx#: [id number] Tube Feeding 1036 910 280 Other 100 90 30 Output: Urine 2230 1405 1175 Stool 100 Other: Voiding Method Indwelling Catheter Indwelling Catheter Indwelling Catheter # Bowel Movements 1 0 1 ABP, PAP, CO, CI - Last Documented Arterial Blood Pressure 111/51 - Labs CBC & Chem 7: 10/25/23 04:12 10/25/23 04:12 Labs: Abnormal Lab Results - Last 24 Hours (Table) 10/24/23 10/24/23 10/24/23 Range/Units 16:04 19:48 23:46 WBC (3.8-10.6) k/uL RBC (4.30-5.90) m/uL Hgb (13.0-17.5) gm/dL Hct (39.0-53.0) % RDW (11.5-15.5) % Neutrophils # (1.3-7.7) k/uL ABG pH (7.35-7.45) ABG HCO3 (21-25) mmol/L ABG Total CO2 (19-24) mmol/L ABG O2 Saturation (94-97) % Sodium (137-145) mmol/L Chloride (98-107) mmol/L BUN (9-20) mg/dL Creatinine (0.66-1.25) mg/dL Glucose (74-99) mg/dL POC Glucose (mg/dL) 199 H 179 H 175 H (70-110) mg/dL Calcium (8.4-10.2) mg/dL C-Reactive Protein (<1.0) mg/dL Procalcitonin (0.02-0.09) ng/mL 10/25/23 10/25/23 10/25/23 Range/Units 03:50 04:08 04:12 WBC 18.2 H (3.8-10.6) k/uL RBC 2.37 L (4.30-5.90) m/uL Hgb 7.1 L (13.0-17.5) gm/dL Hct 22.6 L (39.0-53.0) % RDW 16.7 H (11.5-15.5) % Neutrophils # 15.2 H (1.3-7.7) k/uL ABG pH 7.50 H (7.35-7.45) ABG HCO3 28 H (21-25) mmol/L ABG Total CO2 29 H (19-24) mmol/L ABG O2 Saturation 98.6 H (94-97) % Sodium (137-145) mmol/L Chloride (98-107) mmol/L BUN (9-20) mg/dL Creatinine (0.66-1.25) mg/dL Glucose (74-99) mg/dL POC Glucose (mg/dL) 198 H (70-110) mg/dL Calcium (8.4-10.2) mg/dL C-Reactive Protein (<1.0) mg/dL Procalcitonin (0.02-0.09) ng/mL 10/25/23 10/25/23 10/25/23 Range/Units 04:12 04:12 08:47 WBC (3.8-10.6) k/uL RBC (4.30-5.90) m/uL Hgb (13.0-17.5) gm/dL Hct (39.0-53.0) % RDW (11.5-15.5) % Neutrophils # (1.3-7.7) k/uL ABG pH (7.35-7.45) ABG HCO3 (21-25) mmol/L ABG Total CO2 (19-24) mmol/L ABG O2 Saturation (94-97) % Sodium 146 H (137-145) mmol/L Chloride 110 H (98-107) mmol/L BUN 128 H* (9-20) mg/dL Creatinine 2.42 H (0.66-1.25) mg/dL Glucose 150 H (74-99) mg/dL POC Glucose (mg/dL) 171 H (70-110) mg/dL Calcium 7.2 L (8.4-10.2) mg/dL C-Reactive Protein 4.3 H (<1.0) mg/dL Procalcitonin 0.65 H (0.02-0.09) ng/mL Assessment and Plan (1) COVID-19 Current Visit: Yes Status: Acute Code(s): U07.1 - COVID-19 SNOMED Code(s): 717505825 (2) Sepsis Current Visit: Yes Status: Acute Code(s): A41.9 - SEPSIS, UNSPECIFIED ORGANISM SNOMED Code(s): 48514251 (3) Pneumonia Current Visit: Yes Status: Acute Code(s): J18.9 - PNEUMONIA, UNSPECIFIED ORGANISM SNOMED Code(s): 400423695 (4) Penicillin allergy Current Visit: Yes Status: Acute Code(s): Z88.0 - ALLERGY STATUS TO PENICILLIN SNOMED Code(s): 47802950 (5) Thrush, oral Current Visit: Yes Status: Acute Code(s): B37.0 - CANDIDAL STOMATITIS SNOMED Code(s): 13156181 Plan: 1patient did have significant changes in clinical condition he did have a cardiac arrest on 10/14/2023 Patient Was Taken to the [facility] status post PTCA and stenting x 5 patient did have a new fever and is requiring pressor support 2- blood cultures and sputum for Gram stain culture are so far negative 3-patient did have resolution of his fever however his white count is elevated as well as elevated inflammatory markers stool for C. difficile was suggested however nursing staff mention patient is possibly going to be hospice in that case we will hold on adding any further workup meropenem can safely discontinued family at the bedside questions answered Dictation was produced using [employer] dictation software. please excuse any gramma tical, word or spelling errors. Time with Patient: Less than 30
--- NOTE | 2023-10-26 23:04 | CDI ---
Documentation Clarification Form Date: 10/26/2023 10:55:39 PM From: Maribel Christiansen Phone: Admit Date: 09/28/2023 01:41:00 AM Patient Name: Ana Kaba Visit Number: [id number] Discharge Date: 10/25/2023 09:10:00 PM ATTENTION: The Clinical Documentation Specialists (CDI) and [facility] Coding Staff appreciate your assistance in clarifying documentation. Please respond to the clarification below the line at the bottom and electronically sign. The CDI & [facility] Coding staff will review the response and follow-up if needed. Please note: Queries are made part of the Legal Health Record. If you have any questions, please contact the author of this message via ITS. Dr. Petty Barr Your patient is receiving the following: Insulin Aspart (Novolog) 100 Unit/Ml Vial SQ 4 unit per Progress Note 3/2. Please clarify what condition/diagnosis is being treated. History/Risk Factors: 71yo M, sepsis, COVID w PNA, STEMI, cardiogenic shock, ASHF, HTN, traumatic Rhabdomyolysis, HLD Clinical indicators: glucose 256 Treatment: Hold diuretics for now and discontinue the Lasix. Sliding scale insulin coverage. Will give him more time to stabilize hemodynamically. What diagnosis are you treating with insulin? [ x ] Hyperglycemia due to_steroids. [ ] DMII with Hyperglycemia [ ] No additional diagnosis [ ] Other, please specify [ ] Unable to determine (Template Last Reviewed: September 2020) [facility]
== END 2023-10-25 21:10 | disposition expired | DRG 853 ==
LOC: EC 22:10 → 3SCARD 09-28 01:41 → 5NMEDONC 09-29 10:22 → 4SSUR 09-29 12:15 → 3SCARD 09-29 15:40 → 2SICU 10-06 01:02 → 3SCARD 10-11 15:05 → 2SICU 10-14 17:27
PROVIDERS: ADMIT Internal Medicine; ATTEND Internal Medicine
PROC: 5A0935A Assistance with Respiratory Ventilation, Less than 24 Consecutive Hours, High Flow/Velocity Cannula (ICD-10-PCS; 2023-10-01)
PROC: 3E043XZ Introduction of Vasopressor into Central Vein, Percutaneous Approach (ICD-10-PCS; 2023-10-14)
PROC: 03HY32Z Insertion of Monitoring Device into Upper Artery, Percutaneous Approach (ICD-10-PCS; 2023-10-14)
PROC: 4A133B1 Monitoring of Arterial Pressure, Peripheral, Percutaneous Approach (ICD-10-PCS; 2023-10-14)
PROC: 4A133J1 Monitoring of Arterial Pulse, Peripheral, Percutaneous Approach (ICD-10-PCS; 2023-10-14)
PROC: 06HY33Z Insertion of Infusion Device into Lower Vein, Percutaneous Approach (ICD-10-PCS; 2023-10-14)
PROC: B2111ZZ Fluoroscopy of Multiple Coronary Arteries using Low Osmolar Contrast (ICD-10-PCS; 2023-10-14)
PROC: 4A023N7 Measurement of Cardiac Sampling and Pressure, Left Heart, Percutaneous Approach (ICD-10-PCS; 2023-10-14)
PROC: B241ZZ3 Ultrasonography of Multiple Coronary Arteries, Intravascular (ICD-10-PCS; 2023-10-14)
PROC: 0BH18EZ Insertion of Endotracheal Airway into Trachea, Via Natural or Artificial Opening Endoscopic (ICD-10-PCS; 2023-10-14)
PROC: 5A1955Z Respiratory Ventilation, Greater than 96 Consecutive Hours (ICD-10-PCS; 2023-10-14)
PROC: 5A2204Z Restoration of Cardiac Rhythm, Single (ICD-10-PCS; 2023-10-14)
PROC: 027237Z Dilation of Coronary Artery, Three Arteries with Four or More Drug-eluting Intraluminal Devices, Percutaneous Approach (ICD-10-PCS; principal; 2023-10-14 18:43)
PROC: 5A0221D Assistance with Cardiac Output using Impeller Pump, Continuous (ICD-10-PCS; 2023-10-14 18:43)
PROC: 02HA3RZ Insertion of Short-term External Heart Assist System into Heart, Percutaneous Approach (ICD-10-PCS; 2023-10-14 18:43)
PROC: 5A12012 Performance of Cardiac Output, Single, Manual (ICD-10-PCS; 2023-10-14 18:43)
PROC: 0D9670Z Drainage of Stomach with Drainage Device, Via Natural or Artificial Opening (ICD-10-PCS; 2023-10-16)
PROC: 3E0G76Z Introduction of Nutritional Substance into Upper GI, Via Natural or Artificial Opening (ICD-10-PCS; 2023-10-17)
PROC: 30233N1 Transfusion of Nonautologous Red Blood Cells into Peripheral Vein, Percutaneous Approach (ICD-10-PCS; 2023-10-17)
PROC: 02PA3RZ Removal of Short-term External Heart Assist System from Heart, Percutaneous Approach (ICD-10-PCS; 2023-10-19)
PROC: 047J34Z Dilation of Left External Iliac Artery with Drug-eluting Intraluminal Device, Percutaneous Approach (ICD-10-PCS; 2023-10-19)
PROC: B41F1ZZ Fluoroscopy of Right Lower Extremity Arteries using Low Osmolar Contrast (ICD-10-PCS; 2023-10-19)
PROC: 04CJ3ZZ Extirpation of Matter from Left External Iliac Artery, Percutaneous Approach (ICD-10-PCS; 2023-10-19 16:00)
DX: A41.89 Other specified sepsis (principal); G92.8 Other toxic encephalopathy; J80 Acute respiratory distress syndrome; N17.0 Acute kidney failure with tubular necrosis; I21.29 ST elevation (STEMI) myocardial infarction involving other sites; I50.21 Acute systolic (congestive) heart failure; U07.1 COVID-19; J12.82 Pneumonia due to coronavirus disease 2019; I47.20 Ventricular tachycardia, unspecified; G93.1 Anoxic brain damage, not elsewhere classified; I47.21 Torsades de pointes; T83.83XA Hemorrhage due to genitourinary prosthetic devices, implants and grafts, initial encounter; E87.1 Hypo-osmolality and hyponatremia; D62 Acute posthemorrhagic anemia; B37.0 Candidal stomatitis; E87.4 Mixed disorder of acid-base balance; K92.1 Melena; I11.0 Hypertensive heart disease with heart failure; T79.6XXA Traumatic ischemia of muscle, initial encounter; I49.01 Ventricular fibrillation; I46.2 Cardiac arrest due to underlying cardiac condition; R57.0 Cardiogenic shock; G40.409 Other generalized epilepsy and epileptic syndromes, not intractable, without status epilepticus; Z51.5 Encounter for palliative care; Z66 Do not resuscitate; I25.119 Atherosclerotic heart disease of native coronary artery with unspecified angina pectoris; I48.91 Unspecified atrial fibrillation; E66.9 Obesity, unspecified; J98.6 Disorders of diaphragm; E03.9 Hypothyroidism, unspecified; R73.9 Hyperglycemia, unspecified; T38.0X5A Adverse effect of glucocorticoids and synthetic analogues, initial encounter; E86.0 Dehydration; G62.9 Polyneuropathy, unspecified; E87.6 Hypokalemia; E86.1 Hypovolemia; E78.5 Hyperlipidemia, unspecified; I25.5 Ischemic cardiomyopathy; R33.9 Retention of urine, unspecified; W18.30XA Fall on same level, unspecified, initial encounter; R32 Unspecified urinary incontinence; R31.29 Other microscopic hematuria; Y73.1 Therapeutic (nonsurgical) and rehabilitative gastroenterology and urology devices associated with adverse incidents; Z68.35 Body mass index [BMI] 35.0-35.9, adult; Y92.002 Bathroom of unspecified non-institutional (private) residence as the place of occurrence of the external cause; Z87.891 Personal history of nicotine dependence; Z79.890 Hormone replacement therapy; Z79.899 Other long term (current) drug therapy; Z88.0 Allergy status to penicillin; Z79.02 Long term (current) use of antithrombotics/antiplatelets; Z79.82 Long term (current) use of aspirin; Z87.01 Personal history of pneumonia (recurrent); Z86.16 Personal history of COVID-19
CPT/HCPCS: 33990; 36410; 36415; 36430; 36600; 37184; 37221; 51798; 70450; 71045; 75710; 76000; 76770; 76937; 80048; 80053; 80164; 80202; 81001; 82040; 82140; 82247; 82272; 82330; 82550; 82552; 82607; 82728; 82747; 82805; 83605; 83615; 83735; 83880; 83930; 83935; 84075; 84100; 84132; 84145; 84155; 84295; 84300; 84439; 84443; 84450; 84460; 84484; 85025; 85027; 85379; 85384; 85610; 85730; 86140; 86850; 86900; 86901; 86920; 87040; 87070; 87205; 87636; 92950; 92978; 93005; 93306; 93308; 93454; 94002; 94003; 94640; 94760; 95822; 96361; 96374; 96375; 96376; 99285